=== PATIENT | male | born 1935 | race African-American/Black ===

== ENCOUNTER 2017-04-18 10:48 | Emergency (ER) | payer MEDICARE, OTHER, SELFPAY ==
[2017-04-18 10:58] VITALS: BP 175/100; PULSE 100; RESP 14; TEMP 36.6; O2SAT 96; BMI 28.4
[2017-04-18 11:06] VITALS: BP 170/100; PULSE 75; RESP 14; TEMP 36.5; O2SAT 98; BMI 27.4
--- NOTE | 2017-04-18 12:02 | HMH.EDURI ---
ED Disposition Clinical Impression: Upper respiratory infection Disposition: Home, Self-Care Condition on Discharge: Good Instructions: DI for Acute Bronchitis Prescriptions: Amoxicillin [Amoxicillin 250mg Cap] 250 mg PO TID #21 cap Benzonatate [Benzonatate 200mg Cap] 200 mg PO TID PRN #20 cap PRN Reason: Cough - Critical Care Critical Care Time: No Attestation: On 04/18/17, the high probability of a clinically significant, sudden or life threatening deterioration of the following system(s) required my full and direct attention, intervention and personal management. The time I documented below is in addition to time spent performing reported procedures but includes the following listed in this critical care notation. Medical Decision Making Vital Signs: 04/18/17 10:58 04/18/17 11:06 Temperature 97.9 F 97.7 F Temperature Source Oral Oral Pulse Rate [Left Brachial] 100 H 75 Respiratory Rate 14 14 Blood Pressure [Left Arm] 175/100 170/100 Blood Pressure Mean [Left Arm] 125 123 Blood Pressure Source [Left Arm] Automatic Cuff Automatic Cuff Blood Pressure Position [Left Arm] Sitting Sitting 02 Sat by Pulse Oximetry 96 98 Oxygen Delivery Method Room Air Room Air - Reyes Inquiry Pt receiving controlled substance: No Reyes was queried for this patient: No URI/Sore Throat HPI - General Chief Complaint: Upper Respiratory Infection Stated Complaint: congestion Mode of Arrival: Ambulatory Limitations: No Limitations Description of Symptoms (Recalled from ER Triage Doc. by RN): COUGH AND CONGESTION - History of Present Illness MD Complaint: nasal congestion Duration: constant Severity: moderate Severity scale (1-10): 3 Relieving factors: nothing Exacerbating factors: nothing Description of mucous: clear Able to tolerate fluids by mouth: Yes Associated symptoms: cough Treatments prior to arrival: none - Related Data Previous Rx's Medication Instructions Recorded Amoxicillin [Amoxicillin 250mg 250 mg PO TID #21 cap 04/18/17 Cap] Benzonatate [Benzonatate 200mg Cap] 200 mg PO TID PRN #20 cap 04/18/17 Allergies Allergy/AdvReac Type Severity Reaction Status Date / Time No Known Allergies Allergy Unverified 04/05/17 14:29 [facility] History Medical History: Denies:: Cancer, Diabetes Mellitus Type 1, Diabetes Mellitus Type 2, MRSA Amputation: No Fractures: No - *Social History Alcohol Intake: never - Psychiatric History Expresses thoughts of harming self/others: None Suicide Plan Description: No Plan ROS Obtained: Yes All systems reviewed & no additional complaints except - ENT Reports nasal discharge - Respiratory Reports chest congestion, Reports cough Physical Exam - General General appearance: alert, in no apparent distress - Head Head exam: atraumatic, normocephalic, normal inspection - Eye Eye exam: Present: normal appearance, PERRL, EOMI - ENT ENT exam: Present: normal exam, normal oropharynx, mucous membranes moist, TM's normal bilaterally, normal external ear exam - Neck Neck exam: Present: normal inspection, full ROM, trachea midline - Chest Chest inspection: Present: normal inspection, symmetric chest wall rise. Absent: tenderness - Respiratory Respiratory exam: Present: normal lung sounds bilaterally. Absent: respiratory distress - Cardiovascular Cardiovascular exam: Present: regular rate, normal rhythm. Absent: JVD - Abdominal Exam Abdominal exam: Present: soft, normal bowel sounds. Absent: distention, tenderness, guarding - Extremities Exam Extremities exam: Present: normal inspection, full ROM, normal capillary refill. Absent: calf tenderness - Back Exam Back exam: Present: normal inspection. Absent: tenderness - Neurological Exam Neurological exam: Present: alert, oriented X3 - Psychiatric Psychiatric exam: Present: normal affect, normal mood - Skin Skin exam: Present: warm, dry, intact, normal color
--- NOTE | 2017-04-18 12:08 | ED_ITS ---
ED Disposition Clinical Impression: Upper respiratory infection Disposition: Home, Self-Care Condition on Discharge: Good Instructions: DI for Acute Bronchitis Prescriptions: Amoxicillin [Amoxicillin 250mg Cap] 250 mg PO TID #21 cap Benzonatate [Benzonatate 200mg Cap] 200 mg PO TID PRN #20 cap PRN Reason: Cough - Critical Care Critical Care Time: No Attestation: On 04/18/17, the high probability of a clinically significant, sudden or life threatening deterioration of the following system(s) required my full and direct attention, intervention and personal management. The time I documented below is in addition to time spent performing reported procedures but includes the following listed in this critical care notation. Medical Decision Making Vital Signs: 04/18/17 10:58 04/18/17 11:06 Temperature 97.9 F 97.7 F Temperature Source Oral Oral Pulse Rate [Left Brachial] 100 H 75 Respiratory Rate 14 14 Blood Pressure [Left Arm] 175/100 170/100 Blood Pressure Mean [Left Arm] 125 123 Blood Pressure Source [Left Arm] Automatic Cuff Automatic Cuff Blood Pressure Position [Left Arm] Sitting Sitting 02 Sat by Pulse Oximetry 96 98 Oxygen Delivery Method Room Air Room Air - Reyes Inquiry Pt receiving controlled substance: No Reyes was queried for this patient: No URI/Sore Throat HPI - General Chief Complaint: Upper Respiratory Infection Stated Complaint: congestion Mode of Arrival: Ambulatory Limitations: No Limitations Description of Symptoms (Recalled from ER Triage Doc. by RN): COUGH AND CONGESTION - History of Present Illness MD Complaint: nasal congestion Duration: constant Severity: moderate Severity scale (1-10): 3 Relieving factors: nothing Exacerbating factors: nothing Description of mucous: clear Able to tolerate fluids by mouth: Yes Associated symptoms: cough Treatments prior to arrival: none - Related Data Previous Rx's Medication Instructions Recorded Amoxicillin [Amoxicillin 250mg 250 mg PO TID #21 cap 04/18/17 Cap] Benzonatate [Benzonatate 200mg Cap] 200 mg PO TID PRN #20 cap 04/18/17 Allergies Allergy/AdvReac Type Severity Reaction Status Date / Time No Known Allergies Allergy Unverified 04/05/17 14:29 [facility] History Medical History: Denies:: Cancer, Diabetes Mellitus Type 1, Diabetes Mellitus Type 2, MRSA Amputation: No Fractures: No - *Social History Alcohol Intake: never - Psychiatric History Expresses thoughts of harming self/others: None Suicide Plan Description: No Plan ROS Obtained: Yes All systems reviewed & no additional complaints except - ENT Reports nasal discharge - Respiratory Reports chest congestion, Reports cough Physical Exam - General General appearance: alert, in no apparent distress - Head Head exam: atraumatic, normocephalic, normal inspection - Eye Eye exam: Present: normal appearance, PERRL, EOMI - ENT ENT exam: Present: normal exam, normal oropharynx, mucous membranes moist, TM's normal bilaterally, normal external ear exam - Neck Neck exam: Present: normal inspection, full ROM, trachea midline - Chest Chest inspection: Present: normal inspection, symmetric chest wall rise. Absent : tenderness - Respiratory Respiratory exam: Present: normal lung
[2017-04-18 12:23] VITALS: BP 170/95; PULSE 74; RESP 14; TEMP 36.7; O2SAT 98
== END 2017-04-18 12:27 | disposition home or self-care (01) ==
PROVIDERS: Emergency Provider Family Medicine; Family Provider Internal Medicine
DX: J20.9 Acute bronchitis, unspecified (principal)
CPT/HCPCS: 99282; 99283

== ENCOUNTER 2017-05-13 06:50 | Emergency (ER) | payer MEDICARE, OTHER, SELFPAY ==
[2017-05-13 07:02] VITALS: BP 173/109; PULSE 91; RESP 18; TEMP 36.7; O2SAT 97; BMI 30.9
--- NOTE | 2017-05-13 07:26 | HMH.EDGENADL ---
ED Disposition Condition on Discharge: Good - Critical Care Critical Care Time: No <GagandeepHaseeb Delgado - Last Filed: 05/13/17 07:53> Condition on Discharge: Good - Critical Care Critical Care Time: No <Raul Norwood - Last Filed: 05/13/17 09:05> Clinical Impression: Constipation Qualifiers: Constipation type: unspecified constipation type Qualified Code(s): K59.00 - Constipation, unspecified UTI (urinary tract infection) Qualifiers: Urinary tract infection type: acute cystitis Hematuria presence: without hematuria Qualified Code(s): N30.00 - Acute cystitis without hematuria Disposition: Home, Self-Care Instructions: DI for Constipation, Urinary Tract Infection Additional Instructions: see pcp for follow up Attestation: On 05/13/17, the high probability of a clinically significant, sudden or life threatening deterioration of the following system(s) required my full and direct attention, intervention and personal management. The time I documented below is in addition to time spent performing reported procedures but includes the following listed in this critical care notation. Medical Decision Making - Medical Records Medical records reviewed: Yes: I reviewed the patient's medical records. - Lab Data Lab results reviewed: Yes: I reviewed the patient's lab results. - Reyes Inquiry Pt receiving controlled substance: No <GagandeepHaseeb Delgado - Last Filed: 05/13/17 07:53> - Lab Data Result diagrams: 05/13/17 07:50 05/13/17 07:50 <EnmaRaul - Last Filed: 05/13/17 09:05> Vital Signs: 05/13/17 07:02 Temperature 98.0 F Temperature Source Oral Pulse Rate [Right Radial] 91 H Respiratory Rate 18 Blood Pressure [Left Arm] 173/109 Blood Pressure Mean [Left Arm] 130 Blood Pressure Source [Left Arm] Automatic Cuff Blood Pressure Position [Left Arm] Left Lateral 02 Sat by Pulse Oximetry 97 Oxygen Delivery Method Room Air - Lab Data Lab Results 05/13/17 07:40: Urine Color Yellow, Urine Appearance Clear, Urine pH 7.5, Ur Specific [place] 1.010, Urine Protein Negative, Urine Glucose (UA) Negative, Urine Ketones Negative, Urine Blood Negative, Urine Nitrate Negative, Urine Bilirubin Negative, Urine Urobilinogen 0.2, Ur Leukocyte Esterase 1+ A, Urine RBC None, Urine WBC 10-20, Ur Squamous Epith Cells 5-10, Urine Bacteria 2+, Urine Mucus 2+ 05/13/17 07:45: Stool Occult Blood Negative 05/13/17 07:50: WBC 6.8, RBC 4.96, Hgb 13.5 L, Hct 40.4 L, MCV 81.5, MCH 27.2, MCHC 33.4, RDW 14.1, Plt Count 202, MPV 7.2 L, Neut % (Auto) 67.8, Lymph % (Auto) 24.2, [place] % (Auto) 5.6, Eos % (Auto) 2.0, Baso % (Auto) 0.3, Neut # (Auto) 4.6, Lymph # (Auto) 1.6, [place] # (Auto) 0.4, Eos # (Auto) 0.1, Baso # (Auto) 0.0 05/13/17 07:50: Sodium 139, Potassium 3.8, Chloride 103, Carbon Dioxide 28, Anion Gap 11.8, BUN 11, Creatinine 1.39 H, Estimated Creat Clear 47, Estimated GFR 49 L, Est GFR ( Amer) 59, Glucose 112 H, Calcium 8.8, Total Bilirubin 0.4, AST 17, ALT 23, Alkaline Phosphatase 93, Total Protein 7.5, Albumin 3.8, Globulin 3.7 H, Albumin/Globulin Ratio 1.0 L, TSH 1.51, Thyroxine (T4) 4.8 Orders (Tests/Meds): ED MEDICATIONS Discontinued Medications Generic Name Dose Route Start Last Admin Trade Name Freq PRN Reason Stop Dose Admin Bisacodyl 10 mg 05/13/17 07:51 05/13/17 07:57 Dulcolax 10mg Supp RC 05/13/17 07:52 10 mg ONCE ONE Administration ORDERS Category Date Time Status Acute abdomen XR series [XR acute abdomen series] Stat Exams 05/13/17 07:29 Ordered Urine Culture Stat Micro 05/13/17 07:40 Received General Adult HPI - General Mode of Arrival: Ambulatory Source of Information: Patient, Medical Record Limitations: No Limitations Description of Symptoms (Recalled from ER Triage Doc. by RN): pt is constipated x 2 days, tried a suppository with no relief - History of Present Illness Onset (ago): day(s) Severity: moderate <Haseeb Donis - Last Filed: 05/13/17 07:53>
--- NOTE | 2017-05-13 07:29 | ED_ITS ---
ED Disposition Condition on Discharge: Good - Critical Care Critical Care Time: No <GagandeepHaseeb Delgado - Last Filed: 05/13/17 07:53> Condition on Discharge: Good - Critical Care Critical Care Time: No <Raul Norwood - Last Filed: 05/13/17 09:05> Clinical Impression: Constipation Qualifiers: Constipation type: unspecified constipation type Qualified Code(s): K59.00 - Constipation, unspecified UTI (urinary tract infection) Qualifiers: Urinary tract infection type: acute cystitis Hematuria presence: without hematuria Qualified Code(s): N30.00 - Acute cystitis without hematuria Disposition: Home, Self-Care Instructions: DI for Constipation, Urinary Tract Infection Additional Instructions: see pcp for follow up Attestation: On 05/13/17, the high probability of a clinically significant, sudden or life threatening deterioration of the following system(s) required my full and direct attention, intervention and personal management. The time I documented below is in addition to time spent performing reported procedures but includes the following listed in this critical care notation. Medical Decision Making - Medical Records Medical records reviewed: Yes: I reviewed the patient's medical records. - Lab Data Lab results reviewed: Yes: I reviewed the patient's lab results. - Reyes Inquiry Pt receiving controlled substance: No <GagandeepHaseeb Delgado - Last Filed: 05/13/17 07:53> - Lab Data Result diagrams: 05/13/17 07:50 05/13/17 07:50 <EnmaRaul - Last Filed: 05/13/17 09:05> Vital Signs: 05/13/17 07:02 Temperature 98.0 F Temperature Source Oral Pulse Rate [Right Radial] 91 H Respiratory Rate 18 Blood Pressure [Left Arm] 173/109 Blood Pressure Mean [Left Arm] 130 Blood Pressure Source [Left Arm] Automatic Cuff Blood Pressure Position [Left Arm] Left Lateral 02 Sat by Pulse Oximetry 97 Oxygen Delivery Method Room Air - Lab Data Lab Results 05/13/17 07:40: Urine Color Yellow, Urine Appearance Clear, Urine pH 7.5, Ur Specific [place] 1.010, Urine Protein Negative, Urine Glucose (UA) Negative, Urine Ketones Negative, Urine Blood Negative, Urine Nitrate Negative, Urine Bilirubin Negative, Urine Urobilinogen 0.2, Ur Leukocyte Esterase 1+ A, Urine RBC None, Urine WBC 10-20, Ur Squamous Epith Cells 5-10, Urine Bacteria 2+, Urine Mucus 2+ 05/13/17 07:45: Stool Occult Blood Negative 05/13/17 07:50: WBC 6.8, RBC 4.96, Hgb 13.5 L, Hct 40.4 L, MCV 81.5, MCH 27.2, MCHC 33.4, RDW 14.1, Plt Count 202, MPV 7.2 L, Neut % (Auto) 67.8, Lymph % (Auto ) 24.2, [place] % (Auto) 5.6, Eos % (Auto) 2.0, Baso % (Auto) 0.3, Neut # (Auto) 4.6, Lymph # (Auto) 1.6, [place] # (Auto) 0.4, Eos # (Auto) 0.1, Baso # (Auto) 0.0 05/13/17 07:50: Sodium 139, Potassium 3.8, Chloride 103, Carbon Dioxide 28, Anion Gap 11.8, BUN 11, Creatinine 1.39 H, Estimated Creat Clear 47, Estimated GFR 49 L, Est GFR ( Amer) 59, Glucose 112 H, Calcium 8.8, Total Bilirubin 0.4, AST 17, ALT 23, Alkaline Phosphatase 93, Total Protein 7.5, Albumin 3.8, Globulin 3.7 H, Albumin/Globulin Ratio 1.0 L, TSH 1.51, Thyroxine ( T4) 4.8 Orders (Tests/Meds): ED MEDICATIONS Discontinued Medications Generic Name Dose Route Start Last Admin Trade Name Freq PRN Reason Stop Dose Admin Bisacodyl 10 mg 05/13/17 07:51 05/13/17 07:57 Dulcolax 10mg Supp RC 05/13/17 07:52 10 mg ONCE ONE Admi
--- NOTE | 2017-05-13 07:29 | XR_ITS ---
XR acute abdomen series HISTORY: ITS.REASON: constipation ORDERING PHYSICIAN: Raul Norwood MD PATIENT AGE: 81 years COMPARISON: 04/14/2015 FINDINGS: Frontal view of the chest shows no acute finding. Nonspecific bowel gas pattern with a mild amount retained colonic feces. No evidence of rectal fecal impaction. Scattered phleboliths are present in the pelvis and there is diffuse osteophytosis of the thoracic and lumbar spine. IMPRESSION: 1. Mild constipation. 2. Thoracic lumbar spondylosis with osteophytosis.
[2017-05-13 07:52] LABS: Appearance,Urine CLEAR (Clear); Bilirubin,Urine Negative (Negative); Blood, Urine Negative (Negative); Color,Urine YELLOW (Yellow); Glucose,Urine (UA) Negative (Negative); Ketones,Urine Negative (Negative); Leukocyte Esterase,Urine 1+ (Negative); Microscopic, Urine URINE MICROSCOPIC (MICROSCOPIC); Nitrate,Urine Negative (Negative); PH,Urine 7.5 (5.0-8.5); Protein,Urine Negative (Negative); Urobilinogen,Urine 0.2 EU/dl (0.2)
[2017-05-13 08:01] LABS: Basophils % 0.3 % (0.1-2.0); Eosinophils # 0.1 K/mm3 (0.0-0.4); Hematocrit 40.4 % (42.0-52.0); Hemoglobin 13.5 g/dL (14.1-18.0); Lymphocytes # 1.6 K/mm3 (0.7-4.5); Lymphocytes % 24.2 K/mm3 (10-50); Mean Corpuscular HGB Conc 33.4 g/dL (31.8-35.4); Mean Corpuscular Hemoglobin 27.2 pg (27.0-31.2); Mean Corpuscular Volume 81.5 fl (80-94); Mean Platelet Volume 7.2 fl (7.4-10.4); Monocytes # 0.4 K/mm3 (0.1-1.0); Monocytes % 5.6 % (1.7-9.3); Neutrophils # 4.6 K/mm3 (1.8-7.8); Neutrophils % 67.8 % (37.0-80.0); Platelet Count 202 K/mm3 (142-424); Red Blood Count 4.96 M/mm3 (4.60-6.20); Red Cell Distribution Width 14.1 % (11.5-17.5); White Blood Count 6.8 K/mm3 (4.8-10.8)
[2017-05-13 08:04] LABS: Occult Blood,Stool Negative (Negative)
[2017-05-13 08:23] LABS: Bacteria,Urine 2+ /lpf; Mucus,Urine 2+ /lpf
--- NOTE | 2017-05-13 08:25 | PC.NURSE ---
Pt had BM x 1 following supository at this time
[2017-05-13 08:33] LABS: Alanine Aminotransferase 23 U/L (12-78); Albumin Level 3.8 gm/dL (3.4-5.0); Alkaline Phosphatase 93 U/L (46-116); Anion Gap 11.8 mEq/L (5-15); Aspartate Amino Transferase 17 U/L (15-37); Bilirubin,Total 0.4 mg/dL (0.2-1.0); Blood Urea Nitrogen 11 mg/dL (7-18); Calcium 8.8 mg/dL (8.5-10.1); Carbon Dioxide 28 mmol/L (21.0-32.0); Chloride 103 mmol/L (98-107); Creatinine Clearance Estimated 47 mL/min (0-300); Creatinine,Serum 1.39 mg/dL (0.70-1.30); Estimated Glomerular Filt Rate 49 ml/min (>60); GFR (African American) 59 ML/MIN (>60); Globulin 3.7 gm/dl (1.3-3.2); Glucose 112 mg/dL (74-106); Potassium 3.8 mmoL/L (3.5-5.1); Sodium 139 mmol/L (136-145); T4 (Thyroxine) 4.8 ug/dl (4.7-13.3); Thyroid Stimulating Hormone 1.51 uIU/ml (0.358-3.740); Total Protein,Serum 7.5 gm/dL (6.4-8.2)
[2017-05-13 09:37] VITALS: BP 128/70; PULSE 75; RESP 14; TEMP 37; O2SAT 98
== END 2017-05-13 09:38 | disposition home or self-care (01) ==
PROVIDERS: Emergency Medicine; Emergency Provider Emergency Medicine; Family Provider Internal Medicine; PCP Internal Medicine Adolescent Medicine
DX: K59.00 Constipation, unspecified (principal); N39.0 Urinary tract infection, site not specified; Z87.891 Personal history of nicotine dependence
CPT/HCPCS: 74021; 80053; 81001; 82272; 84436; 84443; 85025; 87086; 99282; G0328

== ENCOUNTER 2019-08-03 12:24 | Emergency (ER) | payer MEDICARE, OTHER, SELFPAY ==
[2019-08-03 12:37] VITALS: BP 120/68; PULSE 62; RESP 16; TEMP 36.8; O2SAT 96; BMI 27.4
--- NOTE | 2019-08-03 12:43 | CT_ITS ---
PROCEDURE: CT ABDOMEN PELVIS WO CON CLINICAL INDICATION: LT FLANK PAIN COMPARISON: No exams were available for comparison TECHNIQUE: Axial images obtained with sagittal and coronal reformats. All CT scans at the facility use one or more dose reduction, viz: automated exposure control, ma/kV adjustment per patient size (including targeted exams where dose is matched to indication, i.e. head), or iterative reconstruction technique. FINDINGS: LOWER THORAX: Minimal atelectatic or fibrotic changes are present in the lingula. The most superior aspect of the hepatic dome is not included. ABDOMEN & PELVIS: The visualized portion of the liver has an unremarkable appearance. The gallbladder, spleen, right adrenal gland, and pancreas have unremarkable appearance. There is nodularity of the lateral limb of the left adrenal gland nonspecific measuring 1.5 cm possibly due to an adenoma the the. There are multiple bilateral renal cyst measuring up to 6 cm on the right and 7 cm on the left. There is minimal calcification in the mid aspect of the left kidney posteriorly. No hydronephrosis. No ureteral calculi. Prostate is slightly prominent with coarse calcification. The prostate measures 4.4 cm. There is some thickening along the base of the urinary bladder which could be inflammatory or neoplastic. Cystoscopy may provide further evaluation. No intestinal obstruction or free air. No evidence of appendicitis. There is colonic diverticulosis but no evidence of diverticulitis. There are few small bilateral inguinal lymph nodes There are degenerative changes in the lumbar spine with multilevel bridging osteophytes. IMPRESSION: 1. Bilateral renal cysts. No obstructing renal or ureteral calculi. A small calcification is present in the mid aspect of the left kidney posteriorly and may be related to a small cyst 2. Thickening of the base of the urinary bladder centrally which appears separate from the mildly enlarged prostate and could be inflammatory or neoplastic. Cystoscopy may provide further evaluation. Dictated by: Alex Cabrales MD 08/03/2019 13:55 Electronically signed by Alex Cabrales MD in [place] 08/03/2019 13:55
[2019-08-03 12:51] LABS: Microscopic, Urine URINE MICROSCOPIC (MICROSCOPIC)
[2019-08-03 12:53] LABS: Appearance,Urine CLEAR (Clear); Bilirubin,Urine Negative (Negative); Blood, Urine Negative (Negative); Color,Urine YELLOW (Yellow); Glucose,Urine (UA) Negative (Negative); Ketones,Urine Negative (Negative); Leukocyte Esterase,Urine 1+ (Negative); Nitrate,Urine Negative (Negative); Protein,Urine Negative (Negative); Specific Gravity, Urine 1.015 (1.005-1.030); Urobilinogen,Urine 0.2 EU/dl (0.2)
--- NOTE | 2019-08-03 12:53 | PC.NURSE ---
PT TO RAD. MEDIC TO START IV AND DRAW BLOOD UPON PT'S RETURN TO ED.
[2019-08-03 13:18] LABS: Bacteria,Urine 1+ /lpf; RBC,Urine Occasional #/hpf (0-3); Squamous Epithelial Cell,Urine Occasional #/hpf (0-5)
[2019-08-03 13:25] LABS: Basophils # 0.1 K/mm3 (0-0.2); Basophils % 1.3 % (0.1-2.0); Eosinophils # 0.1 K/mm3 (0.0-0.4); Hematocrit 43.8 % (42.0-52.0); Hemoglobin 14.5 g/dL (14.1-18.0); Lymphocytes # 2.2 K/mm3 (0.7-4.5); Lymphocytes % 46.9 % (10-50); Mean Corpuscular Hemoglobin 28.4 pg (27.0-31.2); Mean Corpuscular Volume 86.1 fl (80-94); Mean Platelet Volume 7.8 fl (7.4-10.4); Monocytes # 0.3 K/mm3 (0.1-1.0); Monocytes % 6.3 % (1.7-9.3); Neutrophils # 2.1 K/mm3 (1.8-7.8); Neutrophils % 43.6 % (37.0-80.0); Platelet Count 211 K/mm3 (142-424); Red Blood Count 5.09 M/mm3 (4.60-6.20); Red Cell Distribution Width 14.4 % (11.5-17.5); White Blood Count 4.7 K/mm3 (4.8-10.8)
[2019-08-03 13:36] LABS: Chloride 102 mmol/L (98-107); Potassium 4.2 mmoL/L (3.5-5.1); Sodium 140 mmol/L (136-145)
[2019-08-03 13:38] LABS: Alanine Aminotransferase 20 U/L (12-78); Aspartate Amino Transferase 23 U/L (17-59); Blood Urea Nitrogen 12 mg/dl (9-20); Creatinine Clearance Estimated 49 mL/min (50-200); Estimated Glomerular Filt Rate 58 ml/min (>60); GFR (African American) 70 ML/MIN (>60)
[2019-08-03 13:39] LABS: Albumin Level 4.3 g/dl (3.5-5.0); Albumin/Globulin Ratio 1.4 (1.1-1.8); Alkaline Phosphatase 63 U/L (38-126); Anion Gap 11.2 mEq/L (5-15); Bilirubin,Total 0.2 mg/dl (0.2-1.3); Calcium 9.3 mg/dl (8.4-10.2); Carbon Dioxide 31 mmol/L (22.0-30.0); Globulin 3.1 g/dL (1.3-3.2); Glucose 117 mg/dl (74-100); Total Protein,Serum 7.4 g/dl (6.3-8.2)
--- NOTE | 2019-08-03 14:35 | HMH.EDUROGM ---
ED Disposition Clinical Impression: Urethritis, Cystitis, Bladder neoplasm of uncertain malignant potential Disposition: Home, Self-Care Condition on Discharge: Good Instructions: DI for Urinary Tract Infection (UTI), DI for Urinary Tract Infection in Children Additional Instructions: Please follow-up with primary care for further evaluation and a urology consult Prescriptions: Sulfamethoxazole/Trimethoprim [Bactrim DS tablet] 1 each PO BID 10 Days #20 tab Transmission Status: Pending to [facility] Referrals: Provider,Referral, [Primary Care Provider] - - Critical Care Critical Care Time: No Attestation: On 08/03/19, the high probability of a clinically significant, sudden or life threatening deterioration of the following system(s) required my full and direct attention, intervention and personal management. The time I documented below is in addition to time spent performing reported procedures but includes the following listed in this critical care notation. Medical Decision Making - Medical Records Medical records reviewed: Yes: I reviewed the patient's medical records. - Reyes Inquiry Pt receiving controlled substance: No Vital Signs: 08/03/19 12:37 Temperature 98.2 F Temperature Source Oral Pulse Rate [Right Radial] 62 Respiratory Rate 16 Blood Pressure [Right Arm] 120/68 Blood Pressure Mean [Right Arm] 85 Blood Pressure Source [Right Arm] Automatic Cuff Blood Pressure Position [Right Arm] Sitting 02 Sat by Pulse Oximetry 96 Oxygen Delivery Method Room Air - Lab Data Lab results reviewed: Yes: I reviewed the patient's lab results. Lab Results 08/03/19 12:40: Urine Color Yellow, Urine Appearance Clear, Urine pH 7.0, Ur Specific [place] 1.015, Urine Protein Negative, Urine Glucose (UA) Negative, Urine Ketones Negative, Urine Blood Negative, Urine Nitrate Negative, Urine Bilirubin Negative, Urine Urobilinogen 0.2, Ur Leukocyte Esterase 1+ A, Urine RBC Occasional, Urine WBC 3-5, Ur Squamous Epith Cells Occasional, Urine Bacteria 1+ 08/03/19 13:10: WBC 4.7 L, RBC 5.09, Hgb 14.5, Hct 43.8, MCV 86.1, MCH 28.4, MCHC 33.0, RDW 14.4, Plt Count 211, MPV 7.8, Neut % (Auto) 43.6, Lymph % (Auto) 46.9, [place] % (Auto) 6.3, Eos % (Auto) 2.0, Baso % (Auto) 1.3, Neut # (Auto) 2.1, Lymph # (Auto) 2.2, [place] # (Auto) 0.3, Eos # (Auto) 0.1, Baso # (Auto) 0.1 08/03/19 13:10: Sodium 140, Potassium 4.2, Chloride 102, Carbon Dioxide 31 H, Anion Gap 11.2, BUN 12, Creatinine 1.20, Estimated Creat Clear 49, Estimated GFR 58 L, Est GFR ( Amer) 70, Glucose 117 H, Calcium 9.3, Total Bilirubin 0.2, AST 23, ALT 20, Alkaline Phosphatase 63, Total Protein 7.4, Albumin 4.3, Globulin 3.1, Albumin/Globulin Ratio 1.4 Result diagrams: 08/03/19 13:10 08/03/19 13:10 Orders (Tests/Meds): ORDERS Category Date Time Status Urine Culture Stat Micro 08/03/19 12:40 Received - CT Data CT Scan: Abdomen, Pelvis Time Received: 14:00 Preliminary Findings: Abnormal (Patient does have a thickened bladder cyst possible for a neoplasm.) Male Urogenital HPI - General Chief complaint: Urogenital-Male Stated complaint: back pain Time Seen by Provider: 08/03/19 13:00 Mode of Arrival: Ambulatory Limitations: No Limitations Description of Symptoms (Recalled from ER Triage Doc. by RN): PT C/O LT FLANK PAIN - History of Present Illness HPI Narrative: 83-year-old gentleman presents the ED complaining of some right flank pain radiating down to his groin and is also some dysuria. Patient states the symptoms started about 24 hours ago. He rates the pain 2 out of 10 he says it is very mild and he does not feel like he needs to take anything for it really cannot describe any exacerbating or alleviating factors. He does state the pain is sharp. Patient states that the dysuria did start about 24 hours ago and he also has some difficulty emptying bladder and does wake up several times during the night to use the bathroom. Wanda
[2019-08-03 14:50] VITALS: BP 134/87; PULSE 72; RESP 18; TEMP 37.1; O2SAT 97
== END 2019-08-03 14:51 | disposition home or self-care (01) ==
PROVIDERS: Emergency Provider Family Medicine
DX: N34.2 Other urethritis (principal); D41.4 Neoplasm of uncertain behavior of bladder; I10 Essential (primary) hypertension; R73.9 Hyperglycemia, unspecified; Z79.899 Other long term (current) drug therapy
CPT/HCPCS: 74176; 80053; 81001; 85025; 87086; 99283

== ENCOUNTER 2019-08-23 10:27 | Emergency (ER) | payer MEDICARE, OTHER, SELFPAY ==
[2019-08-23 10:28] VITALS: BP 126/81; PULSE 83; RESP 20; TEMP 36.4; O2SAT 98; BMI 25.8
--- NOTE | 2019-08-23 10:39 | HMH.EDGENADL ---
ED Disposition Clinical Impression: Facial pain Sinusitis Qualifiers: Sinusitis location: maxillary Chronicity: unspecified Qualified Code(s): J32.0 - Chronic maxillary sinusitis Disposition: Home, Self-Care Condition on Discharge: Good Instructions: DI for Sinusitis Additional Instructions: Amoxicillin as prescribed for possible sinus infection. Follow-up with your primary care provider, call for appointment. Prescriptions: Amoxicillin [Amoxicillin 500mg Cap] 500 mg PO TID #30 cap Transmission Status: Pending to [facility] Referrals: Provider,Referral, [Primary Care Provider] - - Critical Care Critical Care Time: No Attestation: On 08/23/19, the high probability of a clinically significant, sudden or life threatening deterioration of the following system(s) required my full and direct attention, intervention and personal management. The time I documented below is in addition to time spent performing reported procedures but includes the following listed in this critical care notation. Medical Decision Making - Reyes Inquiry Pt receiving controlled substance: No Vital Signs: 08/23/19 10:28 Temperature 97.6 F Temperature Source Oral Pulse Rate [Right] 83 Respiratory Rate 20 Blood Pressure [Right Arm] 126/81 Blood Pressure Mean [Right Arm] 96 02 Sat by Pulse Oximetry 98 Medical Decision Narrative: Symptoms sound most consistent with a sinus infection. Tic douloureux is also considered a possibility and patient is advised to follow-up with his primary care provider. He says he is a patient at the [facility], but is unable to get there. prior CT: PROCEDURE: CT LUMBAR SPINE WO CON CLINICAL HISTORY: lower back pain COMPARISON: No exams were available for comparison TECHNIQUE: Axial images obtained with sagittal and coronal reformats. All CT scans at the facility use one or more dose reduction, viz: automated exposure control, ma/kV adjustment per patient size (including targeted exams where dose is matched to indication, i.e. head), or iterative reconstruction technique. FINDINGS: There are 2 millimeters anterior subluxation of L4 on L5. There is no other malalignment. Anterior and lateral osteophytes are bridging multiple disc space levels. Multilevel degenerative disc disease is noted from T11-12 to L5-S1. No acute fracture dislocation or destructive lesion is apparent. At L1-2 asymmetrical disc bulge toward the left neural foramen is noted with mild foraminal stenosis but without nerve root impingement. At L2-3 there is broad-based disc bulge with bilateral ligamentum flavum and facet hypertrophy and marginal osteophyte with moderate central spinal canal stenosis and bilateral foraminal stenosis. At L3-4 there is broad-based disc bulge with mild central spinal canal stenosis and bilateral foraminal stenosis greater on the left where there is marginal osteophyte. At L4-5 there is broad-based disc bulge with bilateral hypertrophic facet disease with high-grade central spinal canal stenosis and bilateral foraminal stenosis with asymmetrical left lateral marginal osteophyte protruding into the neural foramen. Impingement of the bilateral L4 nerve root sleeves is not excluded. At L5-S1 there is marginal osteophyte and hypertrophic facet disease with bilateral foraminal stenosis right greater than left. No central canal stenosis is apparent. No herniated disc is apparent. Mild bilateral sacroiliitis is noted. Note is made of multiple bilateral renal cysts. Additionally an approximately 6 millimeter hyperdense nodule projects off the posterior cortex of the left kidney best seen on image 38 series 3 likely a hemorrhagic cyst. 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 No acute fracture. Anterior subluxation of L4 on L5 Multiple bila
[2019-08-23 11:20] VITALS: BP 123/85; PULSE 65; RESP 20; TEMP 36.8; O2SAT 98
== END 2019-08-23 11:21 | disposition home or self-care (01) ==
PROVIDERS: Emergency Provider Emergency Medicine
DX: J32.9 Chronic sinusitis, unspecified (principal); M54.5 Low back pain; I10 Essential (primary) hypertension
CPT/HCPCS: 99281

== ENCOUNTER 2019-09-21 07:49 | Emergency (ER) | payer MEDICARE, OTHER, SELFPAY ==
[2019-09-21 07:52] VITALS: BP 170/90; PULSE 82; RESP 18; TEMP 36.7; O2SAT 98; BMI 28.3
--- NOTE | 2019-09-21 08:23 | HMH.EDSKAF ---
ED Disposition Clinical Impression: Papule of skin Disposition: Home, Self-Care Condition on Discharge: Good Instructions: DI for Insect Bites and Stings Additional Instructions: You have been evaluated for a papule on your cheek. Please use topical antibiotic. If you develop additional lesions, especially near your eye, please return to the emergency department. Follow-up with your primary care doctor in 1 to 2 days for wound check. Referrals: Provider,Referral, [Primary Care Provider] - Time of Disposition: 08:32 - Critical Care Critical Care Time: No Attestation: On , the high probability of a clinically significant, sudden or life threatening deterioration of the following system(s) required my full and direct attention, intervention and personal management. The time I documented below is in addition to time spent performing reported procedures but includes the following listed in this critical care notation. Medical Decision Making - Reyes Inquiry Pt receiving controlled substance: No Vital Signs: 09/21/19 07:52 09/21/19 08:37 Temperature 98.1 F 98.3 F Temperature Source Oral Pulse Rate 80 Pulse Rate [Right] 82 Respiratory Rate 18 20 Blood Pressure 152/87 H Blood Pressure [Right Arm] 170/90 H Blood Pressure Mean [Right Arm] 116 02 Sat by Pulse Oximetry 98 Orders (Tests/Meds): ED MEDICATIONS Generic Name Dose Route Start Last Admin Trade Name Freq PRN Reason Stop Dose Admin Neomycin/Polymyxin/Bacitracin 1 each 09/21/19 10:11 09/21/19 08:40 Neosporin Ointment 0.9gm Udp TP 10/21/19 10:10 1 each NEEDED PRN Administration Inflammation Medical Decision Narrative: In summary this is an 84-year-old male presenting to the emergency department with a lesion on his left cheek. Patient is overall appearing on arrival to the emergency department. Vital signs are stable, afebrile. He has a small, less than 1 cm erythematous spot on his cheek. No other lesions. No intraoral lesions. ENT exam unremarkable. Patient was counseled that this could be infectious or inflammatory. However it does not appear to be an abscess. Topical antibiotic applied over the area. He was recommended to use topical antibiotics nightly or after he showers. Counseled to pay attention for any additional rashes, especially near his eye. Follow-up with PCP.. Skin/Abscess/FB HPI - General Chief complaint: Skin/Abscess/Foreign Body Stated complaint: drainage from spot on face Time Seen by Provider: 09/21/19 08:14 Mode of Arrival: Ambulatory Limitations: No Limitations Description of Symptoms (Recalled from ER Triage Doc. by RN): States he has a spot on the left side of his face that is causing clear drainage, states it has been there for over a year. - History of Present Illness HPI narrative: 84-year-old male presenting to the emergency department with a lesion to the left side of his face. He noticed it 2 days ago. It was a small red bump that then drained clear liquid fluid last night. He believes he was bit by an insect. He has seasonal allergies and takes medication. Denies fevers, chills, nausea, vomiting. No intraoral lesions. No rashes on any other part of his face. Does not believe he has ever had shingles. Area is nonpainful. It itches occasionally. Has not used topical or other medication. - Related Data Home Medications Medication Instructions Recorded Confirmed No Known Home Medications 09/21/19 09/21/19 Allergies Allergy/AdvReac Type Severity Reaction Status Date / Time No Known Allergies Allergy Verified 07/10/19 13:14 [facility] History - Hepatitis A Screen Drug use history?: No High risk sexual behaviors?: No History of sexually transmitted infection?: No Currently employed?: No Childcare worker?: No Do you have indoor plumbing?: Yes Do you have electricity?: Yes Attestation statement:: This patient has been screened for Hepatitis A risk
[2019-09-21 08:37] VITALS: BP 152/87; PULSE 80; RESP 20; TEMP 36.8; O2SAT 98
== END 2019-09-21 08:39 | disposition home or self-care (01) ==
PROVIDERS: Emergency Provider Emergency Medicine
DX: L98.9 Disorder of the skin and subcutaneous tissue, unspecified (principal); I10 Essential (primary) hypertension
CPT/HCPCS: 99281

== ENCOUNTER 2019-10-04 16:51 | Emergency (ER) | payer MEDICARE, OTHER, SELFPAY ==
[2019-10-04 16:52] VITALS: BP 123/78; PULSE 80; RESP 18; TEMP 36.7; O2SAT 99; BMI 29.0
[2019-10-04 17:33] VITALS: BP 131/76; PULSE 62; O2SAT 94
--- NOTE | 2019-10-04 18:15 | HMH.EDGENADL ---
ED Disposition Clinical Impression: GERD (gastroesophageal reflux disease) Disposition: Home, Self-Care Condition on Discharge: Good Instructions: DI for Acute Pain -- Adult Prescriptions: Pantoprazole Sodium [Protonix 40mg tablet] 40 mg PO DAILY 30 Days #30 tab Transmission Status: Sent to [facility] Referrals: Provider,Referral, [Primary Care Provider] - - Critical Care Critical Care Time: No Attestation: On 10/04/19, the high probability of a clinically significant, sudden or life threatening deterioration of the following system(s) required my full and direct attention, intervention and personal management. The time I documented below is in addition to time spent performing reported procedures but includes the following listed in this critical care notation. Medical Decision Making - Medical Records Medical records reviewed: Yes: I reviewed the patient's medical records. - Reyes Inquiry Pt receiving controlled substance: No Vital Signs: 10/04/19 16:52 10/04/19 17:33 Temperature 98.1 F Temperature Source Oral Pulse Rate [Radial] 80 62 Respiratory Rate 18 Blood Pressure [Right Arm] 123/78 131/76 Blood Pressure Mean [Right Arm] 93 94 Blood Pressure Source [Right Arm] Automatic Cuff Automatic Cuff Blood Pressure Position [Right Arm] Sitting Sitting 02 Sat by Pulse Oximetry 99 94 L Oxygen Delivery Method Room Air Room Air - Lab Data Lab results reviewed: Yes: I reviewed the patient's lab results. Orders (Tests/Meds): ED MEDICATIONS Discontinued Medications Generic Name Dose Route Start Last Admin Trade Name Freq PRN Reason Stop Dose Admin Belladonna Alkaloids 60 ml 10/04/19 17:14 10/04/19 17:14 Gi Cocktail 60ml Udc PO 10/04/19 17:15 60 ml ONCE ONE Administration General Adult HPI - General Chief complaint: PAIN Stated complaint: Acid Reflex Time Seen by Provider: 10/04/19 18:15 Mode of Arrival: Ambulatory Source of Information: Patient Limitations: No Limitations Description of Symptoms (Recalled from ER Triage Doc. by RN): complaint of acid reflux - History of Present Illness HPI narrative: 84-year-old pleasant gentleman named Nathaniel presents the ED with epigastric pain that aquino up his esophagus especially lays down at night. He has been here a few times for this previously but has not filled his medication when he gets put on PPIs. Patient was given a GI cocktail prior to me seeing the patient and his symptoms are totally resolved. Patient denies any other acute symptoms. - Related Data Previous Rx's Medication Instructions Recorded Pantoprazole Sodium [Protonix 40mg 40 mg PO DAILY 30 Days #30 tab 10/04/19 tablet] Allergies Allergy/AdvReac Type Severity Reaction Status Date / Time No Known Allergies Allergy Verified 07/10/19 13:14 [facility] History - Hepatitis A Screen Drug use history?: No High risk sexual behaviors?: No History of sexually transmitted infection?: No Currently employed?: No Childcare worker?: No Do you have indoor plumbing?: Yes Do you have electricity?: Yes Attestation statement:: This patient has been screened for Hepatitis A risk factors. I have reviewed the patient's past medical history: Yes Medical History: Reports:: Hypertension Denies:: Cancer, Diabetes Mellitus Type 1, Diabetes Mellitus Type 2, MRSA Amputation: No Fractures: No - Social History Educational Level: Completed High School Smoking Status: Never smoker Alcohol Intake: never Alcohol Intake Frequency:: holidays/special occasions only Occupational Status: retired ROS Obtained: Yes All systems reviewed & no additional complaints - Constitutional Constitutional: Reports system reviewed and no additional complaints, except as docu - Eyes Eyes: Reports system reviewed and no additional complaints, except as docu - ENT Ears, Nose, Mouth, and Throat: Reports system reviewed and no additional complaints, except as d
[2019-10-04 18:32] VITALS: BP 131/76; PULSE 62; RESP 18; TEMP 36.7; O2SAT 99
== END 2019-10-04 18:33 | disposition home or self-care (01) ==
PROVIDERS: Emergency Provider Family Medicine
DX: K21.9 Gastro-esophageal reflux disease without esophagitis (principal); I10 Essential (primary) hypertension
CPT/HCPCS: 99282

== ENCOUNTER 2019-10-07 10:43 | Emergency (ER) | payer MEDICARE, OTHER, SELFPAY ==
[2019-10-07 10:44] VITALS: BP 145/91; PULSE 94; RESP 16; TEMP 36.6; O2SAT 98; BMI 26.6
--- NOTE | 2019-10-07 11:45 | HMH.EDBACK ---
ED Disposition Clinical Impression: Acute exacerbation of chronic low back pain Disposition: Home, Self-Care Condition on Discharge: Good Instructions: DI for Low Back Pain Prescriptions: Nabumetone 750 mg PO BID 10 Days #20 tab Transmission Status: Pending to [facility] Methocarbamol [Robaxin 500mg Tab*] 500 mg PO QID 10 Days #30 tab Transmission Status: Pending to [facility] Referrals: Provider,Referral, [Primary Care Provider] - - Critical Care Critical Care Time: No Attestation: On 10/07/19, the high probability of a clinically significant, sudden or life threatening deterioration of the following system(s) required my full and direct attention, intervention and personal management. The time I documented below is in addition to time spent performing reported procedures but includes the following listed in this critical care notation. Medical Decision Making - Medical Records Medical records reviewed: Yes: I reviewed the patient's medical records. - Reyes Inquiry Pt receiving controlled substance: No Vital Signs: 10/07/19 10:44 Temperature 98 F Temperature Source Oral Pulse Rate [Left Radial] 94 H Respiratory Rate 16 Blood Pressure [Right Arm] 145/91 H Blood Pressure Mean [Right Arm] 109 Blood Pressure Position [Right Arm] Sitting 02 Sat by Pulse Oximetry 98 Oxygen Delivery Method Room Air - Lab Data Lab results reviewed: Yes: I reviewed the patient's lab results. Back Pain HPI - General Chief Complaint: Back Pain/Injury Stated Complaint: Leg pain Time Seen by Provider: 10/07/19 11:46 Mode of Arrival: Ambulatory Limitations: No Limitations Description of Symptoms (Recalled from ER Triage Doc. by RN): to ed per pvt car with c/o lower back pain radiating down rt leg. chronic problem worse this am. pt denies any incontinence of bowel or bladder. - History of Present Illness HPI Narrative: 84-year-old gentleman comes in with acute on chronic back pain. He states that he is had chronic back pain for last 6 7 years. It is today was progressively worse. He describes pain around the belt line no radiation into the either legs or up the back. He states that the pain is 4 out of 10 classifies it as sharp. Patient states he does not have any bowel or bladder incontinence. Patient states that exacerbating factors include flexion at the waist and sitting for prolonged periods of time relieving factors include laying on a hard floor standing up. Patient denies any other acute issues. - Related Data Previous Rx's Medication Instructions Recorded Pantoprazole Sodium [Protonix 40mg 40 mg PO DAILY 30 Days #30 tab 10/04/19 tablet] Methocarbamol [Robaxin 500mg Tab*] 500 mg PO QID 10 Days #30 tab 10/07/19 Nabumetone 750 mg PO BID 10 Days #20 tab 10/07/19 Allergies Allergy/AdvReac Type Severity Reaction Status Date / Time No Known Allergies Allergy Verified 07/10/19 13:14 [facility] History - Hepatitis A Screen Drug use history?: No High risk sexual behaviors?: No History of sexually transmitted infection?: No Currently employed?: No Childcare worker?: No Do you have indoor plumbing?: Yes Do you have electricity?: Yes Attestation statement:: This patient has been screened for Hepatitis A risk factors. I have reviewed the patient's past medical history: Yes Medical History: Reports:: Hypertension Denies:: Cancer, Diabetes Mellitus Type 1, Diabetes Mellitus Type 2, MRSA Amputation: No Fractures: No - Social History Smoking Status: Never smoker Alcohol Intake: never Alcohol Intake Frequency:: holidays/special occasions only Occupational Status: other Housing: other Household Members: other ROS Obtained: Yes All systems reviewed & no additional complaints - Constitutional Constitutional: Reports system reviewed and no additional complaints, except as docu - Eyes Eyes: Reports system reviewed and no additional complaints, except as docu - ENT Ear
[2019-10-07 12:40] VITALS: BP 145/91; PULSE 94; RESP 16; TEMP 36.7; O2SAT 98
== END 2019-10-07 12:40 | disposition home or self-care (01) ==
PROVIDERS: Emergency Provider Family Medicine
DX: M54.5 Low back pain (principal); I10 Essential (primary) hypertension
CPT/HCPCS: 99281

== ENCOUNTER 2019-10-15 13:22 | Emergency (ER) | payer MEDICARE, OTHER, SELFPAY ==
[2019-10-15 13:36] VITALS: BP 181/101; PULSE 67; RESP 16; TEMP 36.7; O2SAT 97; BMI 23.3
--- NOTE | 2019-10-15 13:52 | HMH.EDUTC ---
[facility] [place] Disposition Clinical Impression: Joint pain Qualifiers: Joint pain location: unspecified Qualified Code(s): M25.50 - Pain in unspecified joint Disposition: Home, Self-Care Condition on Discharge: Good Instructions: DI for Joint Pain Additional Instructions: Follow up with your regular doctor for additional refills on your medications after today. Prescriptions: Nabumetone 750 mg PO BIDP PRN #20 tab PRN Reason: Moderate Pain Transmission Status: Received by [facility] Referrals: Provider,Referral, [Primary Care Provider] - Time of Disposition: 14:06 Medical Decision Making - Medical Records Medical records reviewed: Yes: I reviewed the patient's medical records. - Reyes Inquiry Pt receiving controlled substance: No Vital Signs: 10/15/19 13:36 10/15/19 14:08 Temperature 98.1 F 98.1 F Temperature Source Oral Pulse Rate 67 Pulse Rate [Right Brachial] 67 Respiratory Rate 16 16 Blood Pressure 166/98 H Blood Pressure [Right Arm] 181/101 H Blood Pressure Mean [Right Arm] 127 Blood Pressure Source [Right Arm] Automatic Cuff Blood Pressure Position [Right Arm] Sitting 02 Sat by Pulse Oximetry 97 Oxygen Delivery Method Room Air - Lab Data Lab results reviewed: Yes: I reviewed the patient's lab results. [facility] [place] HPI - General Stated complaint: need meds Time Seen by Provider: 10/15/19 13:52 Mode of Arrival: Ambulatory Source of Information: Patient Limitations: No Limitations Description of Symptoms (Recalled from Triage Doc. by RN): PATIENT REQUESTING REFILLS FOR METHOCARBOMAL AND NABUMETONE HEENT Symptoms (Recalled from RN notes): No Resp Symptoms (Recalled from RN notes): No Skin Symptoms (Recalled from RN notes): No MS Symptoms (Recalled from RN notes): No Functional Status (Recalled from RN notes): WNL - History of Present Illness Provider Complaint: He is here to get a refill on his nambutone. He states that he has a lot of joint pain and this medication really helped him. His regular doctor is at the [facility] and its hard for him to get all the way to [place]. - Related Data Previous Rx's Medication Instructions Recorded Pantoprazole Sodium [Protonix 40mg 40 mg PO DAILY 30 Days #30 tab 10/04/19 tablet] Methocarbamol [Robaxin 500mg Tab*] 500 mg PO QID 10 Days #30 tab 06/21/20 Nabumetone 750 mg PO BID 10 Days #20 tab 10/07/19 Nabumetone 750 mg PO BIDP PRN #20 tab 10/15/19 Allergies Allergy/AdvReac Type Severity Reaction Status Date / Time No Known Allergies Allergy Verified 07/10/19 13:14 - Worker's Comp Is this a Worker's Comp case?: No H History - Hepatitis A Screen Drug use history?: No High risk sexual behaviors?: No History of sexually transmitted infection?: No Currently employed?: No Childcare worker?: No Do you have indoor plumbing?: Yes Do you have electricity?: Yes Attestation statement:: This patient has been screened for Hepatitis A risk factors. I have reviewed the patient's past medical history: Yes Medical History: Reports:: Hypertension Denies:: Cancer, Diabetes Mellitus Type 1, Diabetes Mellitus Type 2, MRSA Amputation: No Fractures: No - Social History Smoking Status: Never smoker Alcohol Intake: never Alcohol Intake Frequency:: holidays/special occasions only Occupational Status: other Housing: other Household Members: other ROS Obtained: Yes All systems reviewed & no additional complaints - Constitutional Constitutional: Denies chills, Denies fever(s) - Musculoskeletal Musculoskeletal: Reports joint pain, Reports back pain - Integumentary/Breasts Skin/Breast: Denies redness, Denies rash, Denies skin ulcer - Neurologic Neurologic: Denies tingling/numbness/burning sensations Physical Exam - General General appearance: alert, in no apparent distress - Head Head exam: atraumatic, normocephalic, normal inspection - Eye Eye exam: Present: normal appearance, PERRL, EOMI - ENT ENT exam: Pr
[2019-10-15 14:08] VITALS: BP 166/98; PULSE 67; RESP 16; TEMP 36.7; O2SAT 97
== END 2019-10-15 14:10 | disposition home or self-care (01) ==
PROVIDERS: Emergency Provider Nurse Practitioner Family
DX: M25.50 Pain in unspecified joint (principal); I10 Essential (primary) hypertension; K21.9 Gastro-esophageal reflux disease without esophagitis; Z79.899 Other long term (current) drug therapy
CPT/HCPCS: 99201

== ENCOUNTER 2019-11-06 08:42 | Emergency (ER) | payer MEDICARE, OTHER, SELFPAY ==
[2019-11-06 08:52] VITALS: BP 141/83; PULSE 72; RESP 18; TEMP 36.8; O2SAT 95; BMI 26.6
--- NOTE | 2019-11-06 08:59 | HMH.EDGENADL ---
ED Disposition Clinical Impression: Medication care plan discussed with patient GERD (gastroesophageal reflux disease) Qualifiers: Esophagitis presence: esophagitis presence not specified Qualified Code(s): K21.9 - Gastro-esophageal reflux disease without esophagitis Disposition: Home, Self-Care Condition on Discharge: Good Instructions: DI for Gastroesophageal Reflux Disease (GERD), GERD Diet Referrals: PCP,No [Primary Care Provider] - Time of Disposition: 09:23 - Critical Care Critical Care Time: No Attestation: On 11/06/19, the high probability of a clinically significant, sudden or life threatening deterioration of the following system(s) required my full and direct attention, intervention and personal management. The time I documented below is in addition to time spent performing reported procedures but includes the following listed in this critical care notation. Medical Decision Making - Medical Records Medical records reviewed: Yes: I reviewed the patient's medical records. - Reyes Inquiry Pt receiving controlled substance: No Vital Signs: 11/06/19 08:52 Temperature 98.2 F Temperature Source Oral Pulse Rate [Right Brachial] 72 Respiratory Rate 18 Blood Pressure [Right Arm] 141/83 H Blood Pressure Mean [Right Arm] 102 Blood Pressure Source [Right Arm] Automatic Cuff Blood Pressure Position [Right Arm] Sitting 02 Sat by Pulse Oximetry 95 Oxygen Delivery Method Room Air Medical Decision Narrative: In summary this is an 84-year-old male presenting to the emergency department with reflux symptoms. Patient is overall well-appearing on arrival. I doubt that this is a condition more significant, like acute coronary syndrome. Patient denies any changes in his somatic symptoms over the last few weeks. Patient given one-time dose of Carafate. On reassessment patient said that he was feeling much better. I counseled him that he may take Carafate, Maalox, Tums when he has symptoms on occasion. Recommended not eating before sleep and avoiding spicy foods, avoid coffee. Patient overall well-appearing and stable for discharge. General Adult HPI - General Chief complaint: PAIN Stated complaint: reflux Time Seen by Provider: 11/06/19 09:00 Mode of Arrival: Ambulatory Source of Information: Patient Limitations: No Limitations Description of Symptoms (Recalled from ER Triage Doc. by RN): wants to know if stomach medication prescribed from the [facility] is a good medication. still having refulx. would like recommendation for other med - History of Present Illness HPI narrative: 84-year-old male well-known to our emergency department presenting to the emergency department with reflux. He has been taking omeprazole for the last few weeks. [facility], he is concerned that it is not the best medication. Reflux symptoms are worse at night when he lays down. He also has them intermittently throughout the day. No particular chest pain, shortness of breath, abdominal pain, nausea, vomiting. He does not follow any particular diet. Goes to sleep early, sometimes right after dinner. Continues to drink coffee throughout the day. - Related Data Home Medications Medication Instructions Recorded Confirmed Methocarbamol [Robaxin 500mg Tab*] 500 mg PO QID 11/06/19 Nabumetone 750 mg PO BID 11/06/19 Pantoprazole Sodium [Protonix 40mg 40 mg PO DAILY 11/06/19 tablet] Previous Rx's Medication Instructions Recorded Nabumetone 750 mg PO BIDP PRN #20 tab 10/15/19 Allergies Allergy/AdvReac Type Severity Reaction Status Date / Time No Known Allergies Allergy Verified 11/06/19 08:58 [facility] History - Hepatitis A Screen Drug use history?: No High risk sexual behaviors?: No History of sexually transmitted infection?: No Currently employed?: No Childcare worker?: No Do you have indoor plumbing?: No Do you have electricity?: Yes Attestation statement:: This patien
[2019-11-06 09:05] VITALS: BP 127/59; PULSE 75; O2SAT 95
[2019-11-06 09:46] VITALS: BP 125/62; PULSE 65; RESP 16; TEMP 36.8; O2SAT 98
== END 2019-11-06 09:47 | disposition home or self-care (01) ==
PROVIDERS: Emergency Provider Emergency Medicine
DX: K21.9 Gastro-esophageal reflux disease without esophagitis (principal); I10 Essential (primary) hypertension; Z79.899 Other long term (current) drug therapy
CPT/HCPCS: 99282

== ENCOUNTER 2019-11-20 11:36 | Emergency (ER) | payer MEDICARE, OTHER, SELFPAY ==
[2019-11-20 11:47] VITALS: BP 167/102; PULSE 62; RESP 18; TEMP 36.7; O2SAT 95; BMI 27.4
--- NOTE | 2019-11-20 11:53 | HMH.EDGENADL ---
ED Disposition Clinical Impression: Chronic pain of right lower extremity Disposition: Home, Self-Care Condition on Discharge: Good Instructions: DI for Chronic Pain -- Adult Additional Instructions: you can try Voltaren gel for your arthritic pain in your right leg, today of the right knee. Follow-up with your [place] physician in the next 2 to 3 days. If you have any new, changing, worsening, or concerning symptoms, come back to the emergency department. Prescriptions: Diclofenac Sodium [Voltaren Arthritis Pain] 4 gm TP TID #1 gel..gram. Transmission Status: Received by [facility] Referrals: PCP,No [Primary Care Provider] - Time of Disposition: 12:16 - Critical Care Critical Care Time: No Attestation: On , the high probability of a clinically significant, sudden or life threatening deterioration of the following system(s) required my full and direct attention, intervention and personal management. The time I documented below is in addition to time spent performing reported procedures but includes the following listed in this critical care notation. Medical Decision Making - Medical Records Medical records reviewed: Yes: I reviewed the patient's medical records. MR Comment: 84-year-old male presents emergency department with chronic right knee and hip pain. He arrives to the ED hemodynamically stable, with reassuring vital signs, and looks well on exam. He has no acute changes of his pain and is been told he has arthritis but is been taking aspirin and wondering if there is anything else we could do for his arthritis. He follows with a PCP at the [place]. On exam, he has good strength and sensation, no overlying skin changes to suggest infection such as cellulitis or septic arthritis and he is very well-appearing. He denies any recent trauma or falls or changes in his pain over the last weeks. He denies any history of kidney or liver disease or any recent back pain. No sciatica. We will give him a prescription for Voltaren gel and advised that he follow-up with his PCP in the next 2 to 3 days. He is given strict return precautions and discharge instructions and verbalized understanding and agreement to the plan. Safe to discharge. - Reyes Inquiry Pt receiving controlled substance: No Vital Signs: 11/20/19 11:47 11/20/19 12:34 Temperature 98.1 F 98.1 F Temperature Source Oral Oral Pulse Rate 62 Pulse Rate [Left Radial] 62 Respiratory Rate 18 17 Blood Pressure 160/89 H Blood Pressure [Left Arm] 167/102 H Blood Pressure Mean [Left Arm] 123 Blood Pressure Source [Left Arm] Automatic Cuff Blood Pressure Position [Left Arm] Sitting 02 Sat by Pulse Oximetry 95 Oxygen Delivery Method Room Air Room Air Orders (Tests/Meds): ED MEDICATIONS Discontinued Medications Generic Name Dose Route Start Last Admin Trade Name Pita PRN Reason Stop Dose Admin Acetaminophen 500 mg 11/20/19 12:05 11/20/19 12:22 Tylenol 500mg Tablet PO 11/20/19 12:06 500 mg ONCE ONE Administration General Adult HPI - General Chief complaint: PAIN Stated complaint: leg pain Time Seen by Provider: 11/20/19 11:53 - History of Present Illness HPI narrative: 84-year-old male presents emergency department with right leg pain. He states he has had right leg pain for months and been told that his arthritis but does not really know what that means. He denies any recent falls or trauma. He denies any new type of pain. He describes it as an achy pain in his knee and hip on the right side. He said he [facility] and that does not really help very much. No fever or chills. Has been eating and drinking well. Is ambulatory. He denies any recent changes or concerns. - Related Data Home Medications Medication Instructions Recorded Confirmed Methocarbamol [Robaxin 500mg Tab*] 500 mg PO QID 11/06/19 Nabumetone 750 mg PO BID 11/06/19 Pantoprazole Sodium [Protonix 40mg 40 mg PO
[2019-11-20 12:34] VITALS: BP 160/89; PULSE 62; RESP 17; TEMP 36.7; O2SAT 99
== END 2019-11-20 12:36 | disposition home or self-care (01) ==
PROVIDERS: Emergency Provider Emergency Medicine
DX: M79.661 Pain in right lower leg (principal); M25.551 Pain in right hip; I10 Essential (primary) hypertension; Z79.899 Other long term (current) drug therapy
CPT/HCPCS: 99281

== ENCOUNTER 2019-12-22 09:55 | Emergency (ER) | payer MEDICARE, OTHER, SELFPAY ==
[2019-12-22 09:57] VITALS: BP 147/90; PULSE 82; RESP 19; TEMP 36.6; O2SAT 98; BMI 30.9
--- NOTE | 2019-12-22 10:13 | HMH.EDGENADL ---
ED Disposition Clinical Impression: Encounter for medical screening examination Disposition: Home, Self-Care Condition on Discharge: Good Instructions: DI for Animal Bites Referrals: PCP,No [Primary Care Provider] - 3 days - Critical Care Critical Care Time: No Attestation: On 12/22/19, the high probability of a clinically significant, sudden or life threatening deterioration of the following system(s) required my full and direct attention, intervention and personal management. The time I documented below is in addition to time spent performing reported procedures but includes the following listed in this critical care notation. Medical Decision Making - Medical Records Medical records reviewed: Yes: I reviewed the patient's medical records. - Reyes Inquiry Pt receiving controlled substance: No Medical Decision Narrative: Patient with no acute complaints and has not observed exactly where there is a rat bite on his body, swelling likely cellulitis or abscess. He appears healthy and well on medical screening exam and is discharged home to follow-up with primary care provider in 2 to 3 days for reevaluation. General Adult HPI - General Stated complaint: rat bite foot Time Seen by Provider: 12/22/19 10:13 Mode of Arrival: Ambulatory Source of Information: Patient Limitations: No Limitations - History of Present Illness HPI narrative: This is an 84-year-old male who presents to the emergency department for general medical screening exam after thinking he was bit by a rat sometime in the last several days. He is not sure where the rat bit him and has not noticed any rash. He has no acute complaints here today and wants a medical screening exam. - Related Data Home Medications Medication Instructions Recorded Confirmed Methocarbamol [Robaxin 500mg Tab*] 500 mg PO QID 11/06/19 Nabumetone 750 mg PO BID 11/06/19 Pantoprazole Sodium [Protonix 40mg 40 mg PO DAILY 11/06/19 tablet] Previous Rx's Medication Instructions Recorded Nabumetone 750 mg PO BIDP PRN #20 tab 10/15/19 Diclofenac Sodium [Voltaren 4 gm TP TID #1 gel..gram. 11/20/19 Arthritis Pain] Allergies Allergy/AdvReac Type Severity Reaction Status Date / Time No Known Allergies Allergy Verified 11/06/19 08:58 [facility] History - Hepatitis A Screen Attestation statement:: This patient has been screened for Hepatitis A risk factors. I have reviewed the patient's past medical history: Yes Medical History: Reports:: Hypertension Denies:: Cancer, Diabetes Mellitus Type 1, Diabetes Mellitus Type 2, MRSA Amputation: No Fractures: No - Social History Smoking Status: Never smoker Alcohol Intake: never Alcohol Intake Frequency:: holidays/special occasions only Occupational Status: other Housing: other Household Members: other ROS Obtained: Yes All systems reviewed & no additional complaints Physical Exam - General General appearance: alert, in no apparent distress - Head Head exam: atraumatic, normocephalic, normal inspection - Neck Neck exam: Present: normal inspection, full ROM, trachea midline - Respiratory Respiratory exam: Absent: respiratory distress - Cardiovascular Cardiovascular exam: Present: regular rate - Neurological Exam Neurological exam: Present: alert, oriented X3 - Skin Skin exam: Present: warm, dry
[2019-12-22 10:25] VITALS: BP 140/82; PULSE 77; RESP 18; TEMP 36.6; O2SAT 97
== END 2019-12-22 10:27 | disposition home or self-care (01) ==
PROVIDERS: Emergency Provider Emergency Medicine
DX: Z13.9 Encounter for screening, unspecified (principal); I10 Essential (primary) hypertension
CPT/HCPCS: 99281

== ENCOUNTER 2019-12-28 11:20 | Emergency (ER) | payer MEDICARE, OTHER, SELFPAY ==
[2019-12-28 11:28] VITALS: BP 133/60; PULSE 90; RESP 16; TEMP 36.6; O2SAT 98; BMI 27.4
--- NOTE | 2019-12-28 11:52 | CT_ITS ---
PROCEDURE: CT CERVICAL SPINE WO CON CLINICAL INDICATION: pain Posterior neck COMPARISON: No exams were available for comparison TECHNIQUE: Axial images obtained with sagittal and coronal reformats. All CT scans at the facility use one or more dose reduction, viz: automated exposure control, ma/kV adjustment per patient size (including targeted exams where dose is matched to indication, i.e. head), or iterative reconstruction technique. Axial spiral CT scanning performed of the cervical spine beginning at the base of the skull and continuing to the upper T-spine. 3-D multiplanar reconstruction with 3-D manipulation of volumetric data set in image rendering was completed by the radiologist and/or technologist with the supervision of the radiologist on independent workstation. FINDINGS: There is normal alignment. No acute fracture or dislocation. No lytic or blastic change. C2-C3: Mild degenerative disc disease. C3-C4: Degenerate disc disease with endplate hypertrophic change with bony canal stenosis of 10 mm. There is mild bilateral foraminal narrowing. C4-C5: Degenerate disc disease with endplate hyper per trapeze with bilateral foraminal narrowing. C5-C6: Degenerate disc disease with facet and uncovertebral hypertrophy with bilateral foraminal narrowing right greater than left C6-C7: Degenerative disc disease with facet hypertrophic change and bilateral foraminal narrowing left greater than right with some endplate sclerosis. C7-T1: Unremarkable. IMPRESSION: Multilevel cervical spondylosis as detailed above. Dictated by: Alex Cabrales MD 12/28/2019 13:29 Alex Cabrales MD in [place] 12/28/2019 13:29
--- NOTE | 2019-12-28 13:11 | HMH.EDNECK ---
ED Disposition Clinical Impression: Strain of neck muscle Qualifiers: Encounter type: initial encounter Qualified Code(s): S16.1XXA - Strain of muscle, fascia and tendon at neck level, initial encounter Disposition: Home, Self-Care Condition on Discharge: Good Instructions: DI for Neck Pain Referrals: PCP,Rafaela [Primary Care Provider] - Haseeb Donis MD [Staff Physician] - - Critical Care Critical Care Time: No Attestation: On 12/28/19, the high probability of a clinically significant, sudden or life threatening deterioration of the following system(s) required my full and direct attention, intervention and personal management. The time I documented below is in addition to time spent performing reported procedures but includes the following listed in this critical care notation. Medical Decision Making - Medical Records Medical records reviewed: Yes: I reviewed the patient's medical records. - Reyes Inquiry Pt receiving controlled substance: No Vital Signs: 12/28/19 11:28 Temperature 98 F Temperature Source Oral Pulse Rate [Left Radial] 90 Respiratory Rate 16 Blood Pressure [Right Arm] 133/60 Blood Pressure Mean [Right Arm] 84 Blood Pressure Position [Right Arm] Sitting 02 Sat by Pulse Oximetry 98 Oxygen Delivery Method Room Air Orders (Tests/Meds): ED MEDICATIONS Discontinued Medications Generic Name Dose Route Start Last Admin Trade Name Freq PRN Reason Stop Dose Admin Acetaminophen 500 mg 12/28/19 11:52 12/28/19 12:08 Tylenol 500mg Tablet PO 12/28/19 11:53 500 mg ONCE ONE Administration - CT Data CT Scan: C-Spine Time Received: 13:53 Findings Narrative: IMPRESSION: Multilevel cervical spondylosis as detailed above. - Reevaluation(s) Time: 13:53 Reevaluation #1: on reevaluation, patient's pain has improved. Full ROM. Given strict return precautions. Needs to follow up with [facility] verbalized understanding Medical Decision Narrative: 84 y/o M presenting with subacute neck discomfort. Patient thinks he was bitten by a rat for some reason. There is no evidence of abscess or skin innoculation. Imaging will be obtained. Neck Pain/Injury HPI - General Chief Complaint: Neck Pain/Injury Stated Complaint: right side neck head pain Time Seen by Provider: 12/28/19 11:35 Limitations: No Limitations Description of Symptoms (Recalled from ER Triage Doc. by RN): to ed per pvt car with c/o rt side neck pain x 3 days. - History of Present Illness HPI Narrative: 84 y/o male presenting to the ER with complaints of neck pain. Patient has garza right sided neck discomfort for the last 3 days. He states that he thinks he was bitten by a rat, however there is no lesion on the neck. He denies any new injury. Does have a history of neck problems in the past. Patient states that he feels like it is stiff. He denies any new rash. No fevers or chills. No headache. Denies any chest pain or shortness of breath. No abdominal pain or vomiting. No recent travel or sick contacts. - Related Data Home Medications Medication Instructions Recorded Confirmed Methocarbamol [Robaxin 500mg Tab*] 500 mg PO QID 11/06/19 Nabumetone 750 mg PO BID 11/06/19 Pantoprazole Sodium [Protonix 40mg 40 mg PO DAILY 11/06/19 tablet] Previous Rx's Medication Instructions Recorded Nabumetone 750 mg PO BIDP PRN #20 tab 10/15/19 Diclofenac Sodium [Voltaren 4 gm TP TID #1 gel..gram. 11/20/19 Arthritis Pain] Allergies Allergy/AdvReac Type Severity Reaction Status Date / Time No Known Allergies Allergy Verified 11/06/19 08:58 [facility] History - Hepatitis A Screen Drug use history?: No High risk sexual behaviors?: No History of sexually transmitted infection?: No Currently employed?: No Childcare worker?: No Do you have indoor plumbing?: Yes Do you have electricity?: Yes Attestation statement:: This patient has been screened for Hepatitis A risk factors.
[2019-12-28 14:05] VITALS: BP 135/74; PULSE 90; RESP 16; TEMP 36.6; O2SAT 98
== END 2019-12-28 14:06 | disposition home or self-care (01) ==
PROVIDERS: Emergency Provider Emergency Medicine
DX: S16.1XXA Strain of muscle, fascia and tendon at neck level, initial encounter (principal); I10 Essential (primary) hypertension
CPT/HCPCS: 72125; 99282

== ENCOUNTER 2019-12-29 08:55 | Emergency (ER) | payer MEDICARE, OTHER, SELFPAY ==
[2019-12-29 08:58] VITALS: BP 132/86; PULSE 62; RESP 16; TEMP 36.8; O2SAT 99; BMI 25.4
--- NOTE | 2019-12-29 09:11 | HMH.EDNECK ---
ED Disposition Clinical Impression: Disc disorder of cervical region Disposition: Home, Self-Care Condition on Discharge: Good Instructions: DI for Neck Pain, Degenerative Disc Disease Prescriptions: Cyclobenzaprine HCl [Cyclobenzaprine 5mg Tab] 5 mg PO Q8HP PRN #30 tab PRN Reason: pain/spasm Transmission Status: Pending to [facility] Ketorolac Tromethamine [Toradol 10mg tablet] 10 mg PO Q6H 5 Days #20 tab Transmission Status: Pending to [facility] Referrals: PCP,No [Primary Care Provider] - - Critical Care Critical Care Time: No Attestation: On 12/29/19, the high probability of a clinically significant, sudden or life threatening deterioration of the following system(s) required my full and direct attention, intervention and personal management. The time I documented below is in addition to time spent performing reported procedures but includes the following listed in this critical care notation. Medical Decision Making - Medical Records Medical records reviewed: Yes: I reviewed the patient's medical records. - Reyes Inquiry Pt receiving controlled substance: No Vital Signs: 12/29/19 08:58 Temperature 98.2 F Temperature Source Oral Pulse Rate [Right Radial] 62 Respiratory Rate 16 Blood Pressure [Right Arm] 132/86 Blood Pressure Mean [Right Arm] 101 02 Sat by Pulse Oximetry 99 Oxygen Delivery Method Room Air Neck Pain/Injury HPI - General Chief Complaint: Neck Pain/Injury Stated Complaint: pain in back of neck Time Seen by Provider: 12/29/19 09:10 Mode of Arrival: Ambulatory Source of Information: Patient Limitations: No Limitations Description of Symptoms (Recalled from ER Triage Doc. by RN): pt presents to ed with c/o neck and head pain. pt was evaluated in ed yesterday for same complaint. pt states that his neck is not any better. - History of Present Illness HPI Narrative: Is a 89-year-old -[place] male that presents with neck pain x24 hours. Patient woke yesterday with neck pain and stiffness. Patient denies any rigidity more along the line of muscle spasm and dull ache. Pain rated at 5 out of 10 in intensity without radiation. Pain provoked with neck movement particularly with rotation to the right. No noted injury or trauma. No fever no chills. No headache. No focal neurologic deficit. - Related Data Home Medications Medication Instructions Recorded Confirmed Methocarbamol [Robaxin 500mg Tab*] 500 mg PO QID 07/21/20 Nabumetone 750 mg PO BID 11/06/19 Pantoprazole Sodium [Protonix 40mg 40 mg PO DAILY 11/06/19 tablet] Previous Rx's Medication Instructions Recorded Nabumetone 750 mg PO BIDP PRN #20 tab 10/15/19 Diclofenac Sodium [Voltaren 4 gm TP TID #1 gel..gram. 11/20/19 Arthritis Pain] Cyclobenzaprine HCl 5 mg PO Q8HP PRN #30 tab 12/29/19 [Cyclobenzaprine 5mg Tab] Ketorolac Tromethamine [Toradol 10 mg PO Q6H 5 Days #20 tab 12/29/19 10mg tablet] Allergies Allergy/AdvReac Type Severity Reaction Status Date / Time No Known Allergies Allergy Verified 12/29/19 09:04 [facility] History - Hepatitis A Screen Drug use history?: No High risk sexual behaviors?: No History of sexually transmitted infection?: No Currently employed?: No Childcare worker?: No Do you have indoor plumbing?: Yes Do you have electricity?: Yes Attestation statement:: This patient has been screened for Hepatitis A risk factors. I have reviewed the patient's past medical history: Yes Medical History: Reports:: Hypertension Denies:: Cancer, Diabetes Mellitus Type 1, Diabetes Mellitus Type 2, MRSA Amputation: No Fractures: No - Social History Smoking Status: Former smoker Alcohol Intake: never Alcohol Intake Frequency:: holidays/special occasions only Occupational Status: other Housing: skilled nursing Household Members: other Family Hx:: Non-contributory ROS Obtained: Yes All systems reviewed & no additional complaints Physical Exam
[2019-12-29 09:32] VITALS: BP 120/85; PULSE 60; RESP 14; TEMP 36.8; O2SAT 99
== END 2019-12-29 09:33 | disposition home or self-care (01) ==
PROVIDERS: Emergency Provider Emergency Medicine
DX: M50.90 Cervical disc disorder, unspecified, unspecified cervical region (principal); I10 Essential (primary) hypertension; Z87.891 Personal history of nicotine dependence
CPT/HCPCS: 96372; 99281

== ENCOUNTER 2020-01-19 11:27 | Emergency (ER) | payer MEDICARE, OTHER, SELFPAY ==
[2020-01-19 11:28] VITALS: BP 158/98; PULSE 73; RESP 17; TEMP 36.4; O2SAT 97; BMI 26.6
--- NOTE | 2020-01-19 11:39 | HMH.EDGENADL ---
ED Disposition Clinical Impression: Chronic nasal congestion Disposition: Home, Self-Care Condition on Discharge: Good Additional Instructions: Call Dr. Altman (Ear, Nose, Throat specialist) to arrange an appointment. Referrals: PCP,Rafaela [Primary Care Provider] - Perry Altman MD [Staff Physician] - - Critical Care Critical Care Time: No Attestation: On , the high probability of a clinically significant, sudden or life threatening deterioration of the following system(s) required my full and direct attention, intervention and personal management. The time I documented below is in addition to time spent performing reported procedures but includes the following listed in this critical care notation. Medical Decision Making - Reyes Inquiry Pt receiving controlled substance: No Vital Signs: 01/19/20 11:28 Temperature 97.6 F Temperature Source Temporal Artery Scan Pulse Rate [Right] 73 Respiratory Rate 17 Blood Pressure [Right Arm] 158/98 H Blood Pressure Mean [Right Arm] 118 02 Sat by Pulse Oximetry 97 General Adult HPI - General Chief complaint: Upper Respiratory Infection Stated complaint: stuffy nose Time Seen by Provider: 01/19/20 11:40 Mode of Arrival: Ambulatory Limitations: No Limitations Description of Symptoms (Recalled from ER Triage Doc. by RN): C/O nasal and sinus congestion for several weeks. - History of Present Illness HPI narrative: The patient is known to me from frequent previous emergency department visits. He now complains of nasal congestion. He says it has been going on for quite some time . When asked to specify he says he thinks it is been there for a year or so. He also wants his ears checked. His primary care provider [place] but he says he has trouble getting there, does not have a ride. - Related Data Home Medications Medication Instructions Recorded Confirmed Methocarbamol [Robaxin 500mg Tab*] 500 mg PO QID 11/06/19 Nabumetone 750 mg PO BID 11/06/19 Pantoprazole Sodium [Protonix 40mg 40 mg PO DAILY 11/06/19 tablet] Previous Rx's Medication Instructions Recorded Nabumetone 750 mg PO BIDP PRN #20 tab 10/15/19 Diclofenac Sodium [Voltaren 4 gm TP TID #1 gel..gram. 11/20/19 Arthritis Pain] Cyclobenzaprine HCl 5 mg PO Q8HP PRN #30 tab 12/29/19 [Cyclobenzaprine 5mg Tab] Ketorolac Tromethamine [Toradol 10 mg PO Q6H 5 Days #20 tab 12/29/19 10mg tablet] Allergies Allergy/AdvReac Type Severity Reaction Status Date / Time No Known Allergies Allergy Verified 12/29/19 09:04 [facility] History - Hepatitis A Screen Drug use history?: No High risk sexual behaviors?: No History of sexually transmitted infection?: No Currently employed?: No Childcare worker?: No Do you have indoor plumbing?: Yes Do you have electricity?: Yes Attestation statement:: This patient has been screened for Hepatitis A risk factors. I have reviewed the patient's past medical history: Yes Medical History: Reports:: Hypertension Denies:: Cancer, Diabetes Mellitus Type 1, Diabetes Mellitus Type 2, MRSA Amputation: No Fractures: No - Social History Smoking Status: Former smoker Alcohol Intake: never Alcohol Intake Frequency:: holidays/special occasions only Occupational Status: other Housing: [facility] Household Members: other Family Hx:: Non-contributory ROS Obtained: Yes Systems reviewed as appropriate & no additional complaints - Constitutional Constitutional: Denies fever(s) - ENT Ears, Nose, Mouth, and Throat: Reports nasal congestion, Reports nasal obstruction Physical Exam - General General appearance: alert, in no apparent distress Comment: Sitting in a chair drinking a cup of coffee - Head Head exam: atraumatic, normocephalic - Eye Eye exam: Present: normal appearance, EOMI - ENT ENT exam: Present: normal oropharynx, mucous membranes moist, TM's normal bilaterally - Expanded ENT Exam Comment: He can breathe thr
[2020-01-19 11:57] VITALS: BP 150/85; PULSE 78; RESP 18; TEMP 36.8; O2SAT 98
== END 2020-01-19 11:59 | disposition home or self-care (01) ==
PROVIDERS: Emergency Provider Emergency Medicine
DX: J06.9 Acute upper respiratory infection, unspecified (principal); I10 Essential (primary) hypertension; Z87.891 Personal history of nicotine dependence; Z79.899 Other long term (current) drug therapy
CPT/HCPCS: 99281

== ENCOUNTER 2020-02-29 13:18 | Emergency (ER) | payer MEDICARE, OTHER, SELFPAY ==
[2020-02-29 13:19] VITALS: BP 139/91; PULSE 57; RESP 18; TEMP 36.5; O2SAT 95; BMI 26.6
--- NOTE | 2020-02-29 13:25 | HMH.EDGENADL ---
ED Disposition Clinical Impression: Acute urinary retention Constipation Qualifiers: Constipation type: unspecified constipation type Qualified Code(s): K59.00 - Constipation, unspecified Disposition: Home, Self-Care Condition on Discharge: Good Instructions: DI for Urinary Tract Infection (UTI), How to Care for Your Benjamin Catheter -- Male, DI for Urinary Retention in Men, DI for Constipation Additional Instructions: MiraLAX as prescribed for constipation. Take antibiotic, Cipro, as prescribed. Flomax as prescribed. Leave catheter in until you follow-up with Dr. Cabrera, urology. Call his office on Tuesday to make appointment to be seen. Prescriptions: Ciprofloxacin HCl [Ciprofloxacin 500mg Tab] 500 mg PO BID #14 tab Transmission Status: Pending to [facility] Tamsulosin HCl [Flomax 0.4mg capsule] 0.4 mg PO HS #10 cap.er.24h Transmission Status: Pending to [facility] Referrals: PCPRafaeal [Primary Care Provider] - Guero Cabrera MD [Staff Physician] - - Critical Care Critical Care Time: No Attestation: On , the high probability of a clinically significant, sudden or life threatening deterioration of the following system(s) required my full and direct attention, intervention and personal management. The time I documented below is in addition to time spent performing reported procedures but includes the following listed in this critical care notation. Medical Decision Making - Reyes Inquiry Pt receiving controlled substance: No Vital Signs: 02/29/20 13:19 Temperature 97.7 F Temperature Source Oral Pulse Rate [Left Radial] 57 L Respiratory Rate 18 Blood Pressure [Left Arm] 139/91 H Blood Pressure Mean [Left Arm] 107 Blood Pressure Source [Left Arm] Automatic Cuff Blood Pressure Position [Left Arm] Sitting 02 Sat by Pulse Oximetry 95 Oxygen Delivery Method Room Air - Lab Data Lab Results 02/29/20 13:33: Stool Occult Blood Negative 02/29/20 13:50: Urine Color Yellow, Urine Appearance Clear, Urine pH 6.5, Ur Specific [place] 1.010, Urine Protein Negative, Urine Glucose (UA) Negative, Urine Ketones Negative, Urine Blood Negative, Urine Nitrate Negative, Urine Bilirubin Negative, Urine Urobilinogen 0.2, Ur Leukocyte Esterase 1+ A, Urine RBC 3-5, Urine WBC 5-10, Ur Squamous Epith Cells 3-5, Urine Bacteria Trace 02/29/20 14:05: WBC 4.6 L, RBC 4.73, Hgb 13.0 L, Hct 39.7 L, MCV 83.9, MCH 27.5, MCHC 32.8, RDW 14.4, Plt Count 245, MPV 7.3 L, Neut % (Auto) 42.2, Lymph % (Auto) 48.8, [place] % (Auto) 6.8, Eos % (Auto) 1.5, Baso % (Auto) 0.7, Neut # (Auto) 1.9, Lymph # (Auto) 2.2, [place] # (Auto) 0.3, Eos # (Auto) 0.1, Baso # (Auto) 0.0 02/29/20 14:05: Sodium 139, Potassium 3.9, Chloride 105, Carbon Dioxide 27, Anion Gap 10.9, BUN 13, Creatinine 1.40 H, Estimated Creat Clear 42, Estimated GFR 48 L, Est GFR ( Amer) 58 L, Glucose 140 H, Calcium 9.6 Result diagrams: 02/29/20 14:05 02/29/20 14:05 Orders (Tests/Meds): ORDERS Category Date Time Status Urine Culture Stat Micro 02/29/20 13:50 Received - Radiology Data #1 Image(s): Abdomen Image Reviewed: Yes I reviewed the patient's radiology image, Yes I have reviewed radiologist's interpretation PROCEDURE: XR ACUTE ABDOMEN SERIES CLINICAL INDICATION: constipation COMPARISON: No exams were available for comparison FINDINGS: Frontal view of the chest shows no acute finding. Upright and supine views of the abdomen shows Benjamin catheter in place. The bowel gas pattern is nonspecific with a mild amount of retained colonic feces. There are degenerative changes in the lumbar spine and hips. Multiple pelvic phleboliths are present. Prostate calcifications also noted. Other findings:None. IMPRESSION: Mild amount of retained colonic feces, no acute finding Dictated by: Alex Cabrales MD 02/29/2020 14:30 Alex Cabrales MD in [place] 02/29/2020 14:30 Medical Decision Narrative: States he has no way to get to the
--- NOTE | 2020-02-29 13:34 | XR_ITS ---
PROCEDURE: XR ACUTE ABDOMEN SERIES CLINICAL INDICATION: constipation COMPARISON: No exams were available for comparison FINDINGS: Frontal view of the chest shows no acute finding. Upright and supine views of the abdomen shows Benjamin catheter in place. The bowel gas pattern is nonspecific with a mild amount of retained colonic feces. There are degenerative changes in the lumbar spine and hips. Multiple pelvic phleboliths are present. Prostate calcifications also noted. Other findings:None. IMPRESSION: Mild amount of retained colonic feces, no acute finding Dictated by: Alex Cabrales MD 02/29/2020 14:30 Alex Cabrales MD in [place] 02/29/2020 14:30
[2020-02-29 13:40] LABS: Occult Blood,Stool Negative (Negative)
--- NOTE | 2020-02-29 14:10 | PC.NURSE ---
pt to xray
[2020-02-29 14:16] LABS: Basophils % 0.7 % (0.1-2.0); Eosinophils # 0.1 K/mm3 (0.0-0.4); Eosinophils % 1.5 % (0.1-12.0); Hematocrit 39.7 % (42.0-52.0); Lymphocytes # 2.2 K/mm3 (0.7-4.5); Lymphocytes % 48.8 % (10-50); Mean Corpuscular HGB Conc 32.8 g/dL (31.8-35.4); Mean Corpuscular Hemoglobin 27.5 pg (27.0-31.2); Mean Corpuscular Volume 83.9 fl (80-94); Mean Platelet Volume 7.3 fl (7.4-10.4); Monocytes # 0.3 K/mm3 (0.1-1.0); Monocytes % 6.8 % (1.7-9.3); Neutrophils # 1.9 K/mm3 (1.8-7.8); Neutrophils % 42.2 % (37.0-80.0); Platelet Count 245 K/mm3 (142-424); Red Blood Count 4.73 M/mm3 (4.60-6.20); Red Cell Distribution Width 14.4 % (11.5-17.5); White Blood Count 4.6 K/mm3 (4.8-10.8)
[2020-02-29 14:26] LABS: Microscopic, Urine URINE MICROSCOPIC (MICROSCOPIC)
[2020-02-29 14:29] LABS: Appearance,Urine CLEAR (Clear); Bilirubin,Urine Negative (Negative); Blood, Urine Negative (Negative); Color,Urine YELLOW (Yellow); Glucose,Urine (UA) Negative (Negative); Ketones,Urine Negative (Negative); Leukocyte Esterase,Urine 1+ (Negative); Nitrate,Urine Negative (Negative); PH,Urine 6.5 (5.0-8.5); Protein,Urine Negative (Negative); Urobilinogen,Urine 0.2 EU/dl (0.2)
[2020-02-29 14:45] LABS: Bacteria,Urine Trace /lpf
[2020-02-29 14:47] LABS: Chloride 105 mmol/L (98-107); Sodium 139 mmol/L (136-145)
[2020-02-29 14:48] LABS: Potassium 3.9 mmoL/L (3.5-5.1)
[2020-02-29 14:50] LABS: Blood Urea Nitrogen 13 mg/dl (9-20); Creatinine Clearance Estimated 42 mL/min (50-200); Estimated Glomerular Filt Rate 48 ml/min (>60); GFR (African American) 58 ML/MIN (>60)
[2020-02-29 14:51] LABS: Anion Gap 10.9 mEq/L (5-15); Calcium 9.6 mg/dl (8.4-10.2); Carbon Dioxide 27 mmol/L (22.0-30.0); Glucose 140 mg/dl (74-100)
--- NOTE | 2020-02-29 15:51 | SW/DCPLANNER ---
I have set up [employer] for this patient. Patient will be private pay for transportation: $2 total.
--- NOTE | 2020-02-29 15:56 | PC.NURSE ---
pt given catheter home care instructions
--- NOTE | 2020-02-29 15:56 | PC.NURSE ---
care management arranged a ride for pt.
[2020-02-29 16:12] VITALS: BP 176/116; PULSE 91; RESP 18; TEMP 36.5; O2SAT 97
[2020-02-29 16:15] VITALS: BP 176/116; PULSE 91
== END 2020-02-29 16:15 | disposition home or self-care (01) ==
PROVIDERS: Emergency Provider Emergency Medicine
DX: K59.00 Constipation, unspecified (principal); R33.8 Other retention of urine; I10 Essential (primary) hypertension; Z79.899 Other long term (current) drug therapy; Z87.891 Personal history of nicotine dependence
CPT/HCPCS: 74021; 80048; 81001; 82272; 85025; 87086; 99283; G0328

== ENCOUNTER 2020-03-03 08:58 | Emergency (ER) | payer MEDICARE, OTHER, SELFPAY ==
[2020-03-03 09:15] VITALS: BP 155/92; PULSE 78; RESP 18; TEMP 36.7; O2SAT 98; BMI 24.2
--- NOTE | 2020-03-03 09:36 | PC.NURSE ---
catheter leg bag changed at this time, will continue to monitor.
[2020-03-03 09:38] VITALS: BP 176/86; PULSE 75; O2SAT 98
--- NOTE | 2020-03-03 09:38 | PC.NURSE ---
follow up appointment for urology made for pt for tomorrow at 2pm
--- NOTE | 2020-03-03 09:48 | HMH.EDGENADL ---
ED Disposition Clinical Impression: Urinary retention Disposition: Home, Self-Care Condition on Discharge: Good Additional Instructions: It appears that the leg bag was was not connected to the Benjamin catheter this has been corrected and now it is properly connected please follow-up with your urologist Referrals: PCP,No [Primary Care Provider] - Time of Disposition: 10:22 - Critical Care Critical Care Time: No Attestation: On 03/03/20, the high probability of a clinically significant, sudden or life threatening deterioration of the following system(s) required my full and direct attention, intervention and personal management. The time I documented below is in addition to time spent performing reported procedures but includes the following listed in this critical care notation. Medical Decision Making - Medical Records Medical records reviewed: Yes: I reviewed the patient's medical records. MR Comment: -Faroese gentleman with a complaint that his Benjamin catheter is not connected to the leg bag and wants to have it looked at. It appears leg bag was not connected to the Benjamin catheter; this was corrected; observed the patient for a little time to make sure that urine is being produced and collecting in the leg bag - Reyes Inquiry Pt receiving controlled substance: No Vital Signs: 03/03/20 09:15 03/03/20 09:38 03/03/20 10:00 Temperature 98.0 F Temperature Source Oral Pulse Rate [Right Radial] 78 75 70 Respiratory Rate 18 Blood Pressure [Right Arm] 155/92 H 176/86 H 156/83 H Blood Pressure Mean [Right Arm] 113 116 107 Blood Pressure Source [Right Arm] Automatic Cuff Automatic Cuff Blood Pressure Position [Right Arm] Sitting Sitting 02 Sat by Pulse Oximetry 98 98 98 Oxygen Delivery Method Room Air Room Air Room Air General Adult HPI - General Chief complaint: Recheck/Abnormal Lab/Rx Stated complaint: cathedar problems Time Seen by Provider: 03/03/20 09:49 Mode of Arrival: Ambulatory Source of Information: Patient Limitations: No Limitations Description of Symptoms (Recalled from ER Triage Doc. by RN): Pt reports having issues with his catheter, pt states he doesn't think his catheter is draining into the catheter bag. Upon assessment pt catheter leg bag is strapped to his leg but is not connected to the catheter. - History of Present Illness HPI narrative: -Faroese gentleman with a complaint that his Benjamin catheter is not connected to the leg bag and wants to have it looked at Onset (ago): hour(s) Location: genitals Severity: mild Severity scale (1-10): 2 Consistency: constant Relieving factors: none Exacerbating factors: none Associated symptoms: denies other symptoms - Related Data Home Medications Medication Instructions Recorded Confirmed Methocarbamol [Robaxin 500mg Tab*] 500 mg PO QID 11/06/19 Nabumetone 750 mg PO BID 11/06/19 Pantoprazole Sodium [Protonix 40mg 40 mg PO DAILY 11/06/19 tablet] Previous Rx's Medication Instructions Recorded Nabumetone 750 mg PO BIDP PRN #20 tab 10/15/19 Diclofenac Sodium [Voltaren 4 gm TP TID #1 gel..gram. 11/20/19 Arthritis Pain] Cyclobenzaprine HCl 5 mg PO Q8HP PRN #30 tab 12/29/19 [Cyclobenzaprine 5mg Tab] Ketorolac Tromethamine [Toradol 10 mg PO Q6H 5 Days #20 tab 12/29/19 10mg tablet] Ciprofloxacin HCl [Ciprofloxacin 500 mg PO BID #14 tab 02/29/20 500mg Tab] Tamsulosin HCl [Flomax 0.4mg 0.4 mg PO HS #10 cap.er.24h 02/29/20 capsule] Allergies Allergy/AdvReac Type Severity Reaction Status Date / Time No Known Allergies Allergy Verified 12/29/19 09:04 [facility] History - Hepatitis A Screen Drug use history?: No High risk sexual behaviors?: No History of sexually transmitted infection?: No Currently employed?: No Childcare worker?: No Do you have indoor plumbing?: Yes Do you have electricity?: Yes Attestation statement:: This patient has been screened for Hepatitis A risk factors.
[2020-03-03 10:00] VITALS: BP 156/83; PULSE 70; O2SAT 98
--- NOTE | 2020-03-03 10:18 | PC.NURSE ---
MD @ bedside updating patient on condition
[2020-03-03 10:30] VITALS: BP 169/83; PULSE 66; O2SAT 98
[2020-03-03 10:31] VITALS: BP 163/74; PULSE 72; RESP 16; TEMP 36.6; O2SAT 98
== END 2020-03-03 10:34 | disposition home or self-care (01) ==
PROVIDERS: Emergency Provider Emergency Medicine
DX: T83.012A Breakdown (mechanical) of nephrostomy catheter, initial encounter (principal); R33.8 Other retention of urine; I10 Essential (primary) hypertension
CPT/HCPCS: 99282

== ENCOUNTER 2020-04-14 10:02 | Emergency (ER) | payer MEDICARE, OTHER, SELFPAY ==
--- NOTE | 2020-04-14 10:14 | PC.NURSE ---
Pt came in c/o problems with his catheter. Looked at pt chart and seen he had a visit scheduled with Dr. Cabrera today. Called urology office and spoke with isabel who advised pt needed to come to the office at 1pm and not to the ED. Went in and spoke with pt and he advised he thought he was suppose to come to the ED. Asked pt if he needed to be seen in the ED for any complaint and he advised he didn't. I told him he could go ahead and leave and return to urology office at 1pm. Pt agreeable.
[2020-04-14 10:19] VITALS: BP 0/0; PULSE 0; RESP 0; TEMP -17.7; TEMP 0; O2SAT 0
== END 2020-04-14 10:20 | disposition left against medical advice (07) ==
LOC: ER 10:11
PROVIDERS: Emergency Provider Student in an Organized Health Care Education/Training Program
DX: Z53.21 Procedure and treatment not carried out due to patient leaving prior to being seen by health care provider (principal)
CPT/HCPCS: G0463; 99211

== ENCOUNTER → 2020-04-14 15:45 | Outpatient (CLI) | payer MEDICARE, OTHER, SELFPAY | PROVIDERS: Visit Provider Urology | DX: N39.0 Urinary tract infection, site not specified (principal) | CPT/HCPCS: 87086; 87186 ==

== ENCOUNTER 2020-04-20 10:58 | Emergency (ER) | payer MEDICARE, OTHER, SELFPAY ==
[2020-04-20 10:59] VITALS: BP 153/87; PULSE 69; RESP 16; TEMP 36.8; O2SAT 98; BMI 26.6
--- NOTE | 2020-04-20 11:13 | HMH.EDGENADL ---
ED Disposition Clinical Impression: Osteoarthritis Qualifiers: Osteoarthritis location: knee Osteoarthritis type: unspecified Laterality: bilateral Qualified Code(s): M17.0 - Bilateral primary osteoarthritis of knee Disposition: Home, Self-Care Condition on Discharge: Good Referrals: PCP,No [Primary Care Provider] - - Critical Care Critical Care Time: No Attestation: On 04/20/20, the high probability of a clinically significant, sudden or life threatening deterioration of the following system(s) required my full and direct attention, intervention and personal management. The time I documented below is in addition to time spent performing reported procedures but includes the following listed in this critical care notation. Medical Decision Making - Medical Records Medical records reviewed: Yes: I reviewed the patient's medical records. - Reyes Inquiry Pt receiving controlled substance: No Vital Signs: 04/20/20 10:59 Temperature 98.2 F Temperature Source Oral Pulse Rate [Radial] 69 Respiratory Rate 16 Blood Pressure [Right Arm] 153/87 H Blood Pressure Mean [Right Arm] 109 Blood Pressure Position [Right Arm] Sitting 02 Sat by Pulse Oximetry 98 Oxygen Delivery Method Room Air - Lab Data Lab results reviewed: Yes: I reviewed the patient's lab results. Lab Results 04/20/20 11:18: Urine Color Yellow, Urine Appearance Clear, Urine pH 7.0, Ur Specific [place] 1.020, Urine Protein Negative, Urine Glucose (UA) Negative, Urine Ketones Negative, Urine Blood Negative, Urine Nitrate Negative, Urine Bilirubin Negative, Urine Urobilinogen 0.2, Ur Leukocyte Esterase 1+ A, Urine RBC Occasional, Urine WBC 10-20, Ur Squamous Epith Cells Occasional, Urine Bacteria None Orders (Tests/Meds): ED MEDICATIONS Discontinued Medications Generic Name Dose Route Start Last Admin Trade Name Freq PRN Reason Stop Dose Admin Acetaminophen 1,000 mg 04/20/20 11:12 04/20/20 11:22 Acetaminophen 500mg Tab PO 04/20/20 11:13 1,000 mg ONCE ONE Administration ORDERS Category Date Time Status Urine Culture Stat Micro 04/20/20 11:18 Received Medical Decision Narrative: Urinalysis negative for infection. Antibiotics not indicated. Full weightbearing and nontender and asymptomatic care. General Adult HPI - General Stated complaint: leg pain Time Seen by Provider: 04/20/20 11:13 - History of Present Illness HPI narrative: This is an 84-year-old male with a history of osteoarthritis to this emergency department presenting with chronic bilateral knee pain although minimally symptomatic on arrival. He is also requesting a refill for his antibiotics for recent UTI and states that he still has dysuria. No fever, chills, nausea, vomiting, cough, shortness of breath, leg swelling. He has never had a blood clot before. He is ambulatory at his baseline. No trauma. - Related Data Home Medications Medication Instructions Recorded Confirmed Methocarbamol [Robaxin 500mg Tab*] 500 mg PO QID 11/06/19 04/14/20 Nabumetone 750 mg PO BID 11/06/19 04/14/20 Pantoprazole Sodium [Protonix 40mg 40 mg PO DAILY 11/06/19 04/14/20 tablet] Previous Rx's Medication Instructions Recorded Diclofenac Sodium [Voltaren 4 gm TP TID #1 gel..gram. 11/20/19 Arthritis Pain] Cyclobenzaprine HCl 5 mg PO Q8HP PRN #30 tab 12/29/19 [Cyclobenzaprine 5mg Tab] Ketorolac Tromethamine [Toradol 10 mg PO Q6H 5 Days #20 tab 12/29/19 10mg tablet] Tamsulosin HCl [Flomax 0.4mg 0.4 mg PO HS #10 cap.er.24h 02/29/20 capsule] Allergies Allergy/AdvReac Type Severity Reaction Status Date / Time No Known Allergies Allergy Verified 04/14/20 13:10 [facility] History - Hepatitis A Screen Attestation statement:: This patient has been screened for Hepatitis A risk factors. Medical History: Reports:: Hypertension, Urinary Tract Infection Denies:: Cancer, Diabetes Mellitus Type 1, Diabetes Mellitus Type 2, MRSA Other Julio C
[2020-04-20 11:25] LABS: Microscopic, Urine URINE MICROSCOPIC (MICROSCOPIC)
[2020-04-20 11:28] LABS: Appearance,Urine CLEAR (Clear); Bilirubin,Urine Negative (Negative); Blood, Urine Negative (Negative); Color,Urine YELLOW (Yellow); Glucose,Urine (UA) Negative (Negative); Ketones,Urine Negative (Negative); Leukocyte Esterase,Urine 1+ (Negative); Nitrate,Urine Negative (Negative); Protein,Urine Negative (Negative); Urobilinogen,Urine 0.2 EU/dl (0.2)
[2020-04-20 11:34] LABS: RBC,Urine Occasional #/hpf (0-3); Squamous Epithelial Cell,Urine Occasional #/hpf (0-5)
[2020-04-20 11:56] VITALS: BP 132/74; PULSE 78; RESP 16; TEMP 36.6; O2SAT 98
== END 2020-04-20 11:57 | disposition home or self-care (01) ==
PROVIDERS: Emergency Provider Physician Assistant
DX: M17.0 Bilateral primary osteoarthritis of knee (principal); N30.00 Acute cystitis without hematuria; I10 Essential (primary) hypertension; Z79.899 Other long term (current) drug therapy
CPT/HCPCS: 81001; 87086; 99281

== ENCOUNTER 2020-06-14 10:31 | Emergency (ER) | payer MEDICARE, OTHER, SELFPAY ==
[2020-06-14 10:38] VITALS: BP 146/86; PULSE 69; RESP 16; TEMP 37; O2SAT 98; BMI 29.0
--- NOTE | 2020-06-14 10:44 | HMH.EDURI ---
ED Disposition Clinical Impression: Pharyngitis Qualifiers: Pharyngitis/tonsillitis etiology: unspecified etiology Qualified Code(s): J02.9 - Acute pharyngitis, unspecified Disposition: Home, Self-Care Condition on Discharge: Good Instructions: DI for Viral Pharyngitis Additional Instructions: d/c nsaif and call pcp for possible egd - Critical Care Critical Care Time: No Attestation: On , the high probability of a clinically significant, sudden or life threatening deterioration of the following system(s) required my full and direct attention, intervention and personal management. The time I documented below is in addition to time spent performing reported procedures but includes the following listed in this critical care notation. Medical Decision Making - Medical Records Medical records reviewed: Yes: I reviewed the patient's medical records. - Reyes Inquiry Pt receiving controlled substance: No Vital Signs: 06/14/20 10:38 Temperature 98.6 F Temperature Source Oral Pulse Rate [Radial] 69 Respiratory Rate 16 Blood Pressure [Right Arm] 146/86 H Blood Pressure Mean [Right Arm] 106 Blood Pressure Position [Right Arm] Sitting 02 Sat by Pulse Oximetry 98 Oxygen Delivery Method Room Air - Lab Data Lab results reviewed: Yes: I reviewed the patient's lab results. URI/Sore Throat HPI - General Chief Complaint: Recheck/Abnormal Lab/Rx Stated Complaint: sore throat Time Seen by Provider: 06/14/20 10:45 Mode of Arrival: Ambulatory Source of Information: Patient, Medical Record Limitations: No Limitations Description of Symptoms (Recalled from ER Triage Doc. by RN): TO ED PER PVT CAR PT STATES AFTER I EAT IT FOAMS UP AND I COUGH IT BACK UP PT DENIES ANY PAIN IN THROAT, DENIES ANY NAUSEA, VOMITING, ABD PAIN - History of Present Illness HPI Narrative: pt with nonspecific sore throat which has been going on for awhile - no diff with swallowing liquids but some choking on solids at times - no fever or cough MD Complaint: sore throat Onset (ago): week(s) Duration: intermittent Severity: mild Able to tolerate fluids by mouth: Yes Associated symptoms: denies other symptoms Treatments prior to arrival: none - Related Data Home Medications Medication Instructions Recorded Confirmed Methocarbamol [Robaxin 500mg Tab*] 500 mg PO QID 11/06/19 05/08/20 Nabumetone 750 mg PO BID 11/06/19 05/08/20 Pantoprazole Sodium [Protonix 40mg 40 mg PO DAILY 11/06/19 05/08/20 tablet] Previous Rx's Medication Instructions Recorded Diclofenac Sodium [Voltaren 4 gm TP TID #1 gel..gram. 11/20/19 Arthritis Pain] Cyclobenzaprine HCl 5 mg PO Q8HP PRN #30 tab 12/29/19 [Cyclobenzaprine 5mg Tab] Ketorolac Tromethamine [Toradol 10 mg PO Q6H 5 Days #20 tab 12/29/19 10mg tablet] Tamsulosin HCl [Flomax 0.4mg 0.4 mg PO HS #10 cap.er.24h 02/29/20 capsule] Allergies Allergy/AdvReac Type Severity Reaction Status Date / Time No Known Allergies Allergy Verified 05/08/20 10:55 [facility] History - Hepatitis A Screen Drug use history?: No High risk sexual behaviors?: No History of sexually transmitted infection?: No Currently employed?: No Childcare worker?: No Do you have indoor plumbing?: Yes Do you have electricity?: Yes Attestation statement:: This patient has been screened for Hepatitis A risk factors. I have reviewed the patient's past medical history: Yes Medical History: Reports:: Hypertension, Urinary Tract Infection Denies:: Cancer, Diabetes Mellitus Type 1, Diabetes Mellitus Type 2, MRSA Other Surgeries: Yes: No Previous Surgery, Colonoscopy Amputation: No Fractures: No - Social History Smoking Status: Former smoker Tobacco Type: cigarettes Alcohol Intake: current Alcohol Intake Frequency:: holidays/special occasions only Substance Use Type: denies use Occupational Status: other, retired Housing: assisted living facility Household Members: other Family Hx:: Non-contributory ROS Obt
[2020-06-14 10:59] VITALS: BP 146/86; PULSE 69; RESP 16; TEMP 37; O2SAT 98
== END 2020-06-14 11:00 | disposition home or self-care (01) ==
PROVIDERS: Emergency Provider Emergency Medicine
DX: J02.9 Acute pharyngitis, unspecified (principal); I10 Essential (primary) hypertension; K21.9 Gastro-esophageal reflux disease without esophagitis; Z87.891 Personal history of nicotine dependence; Z79.899 Other long term (current) drug therapy
CPT/HCPCS: 99281

== ENCOUNTER 2020-09-05 15:19 | Emergency (ER) | payer MEDICARE, OTHER, SELFPAY ==
[2020-09-05 15:21] VITALS: BP 141/80; PULSE 59; RESP 17; TEMP 36.9; O2SAT 98; BMI 27.4
[2020-09-05 15:28] VITALS: BP 141/80; PULSE 61; O2SAT 96
[2020-09-05 15:31] VITALS: BP 150/77; PULSE 60; O2SAT 95
--- NOTE | 2020-09-05 15:31 | XR_ITS ---
PROCEDURE: XR CHEST PORTABLE CLINICAL HISTORY: soa COMPARISON: CR CXR1 CHEST-PORTABLE from 04/14/2015 FINDINGS: The cardiomediastinal silhouette and pulmonary vascularity are within normal limits. The lungs are clear without infiltrates, suspicious nodules, or pleural effusions. No acute bony abnormalities. IMPRESSION: No acute findings. Dictated by: Alex Cabrales MD 09/05/2020 15:54 Alex Cabrales MD in [place] 09/05/2020 15:54
--- NOTE | 2020-09-05 15:55 | HMH.EDGENADL ---
ED Disposition Clinical Impression: Nausea Disposition: Home, Self-Care Condition on Discharge: Good Instructions: DI for Acute Abdominal Pain Referrals: Provider,Referral, [Primary Care Provider] - - Critical Care Critical Care Time: No Attestation: On 09/05/20, the high probability of a clinically significant, sudden or life threatening deterioration of the following system(s) required my full and direct attention, intervention and personal management. The time I documented below is in addition to time spent performing reported procedures but includes the following listed in this critical care notation. Medical Decision Making - Medical Records Medical records reviewed: Yes: I reviewed the patient's medical records. - Reyes Inquiry Pt receiving controlled substance: No Vital Signs: 09/05/20 15:21 Temperature 98.4 F Temperature Source Oral Pulse Rate [Right] 59 L Respiratory Rate 17 Blood Pressure [Right Arm] 141/80 H Blood Pressure Mean [Right Arm] 100 02 Sat by Pulse Oximetry 98 Oxygen Delivery Method Room Air - Lab Data Lab Results 09/05/20 15:55: WBC 4.5 L, RBC 4.66, Hgb 12.7 L, Hct 38.5 L, MCV 82.6, MCH 27.3, MCHC 33.1, RDW 14.3, Plt Count 190, MPV 7.6, Neut % (Auto) 35.5 L, Lymph % (Auto) 55.7 H, [place] % (Auto) 6.2, Eos % (Auto) 1.6, Baso % (Auto) 1.0, Neut # (Auto) 1.6 L, Lymph # (Auto) 2.5, [place] # (Auto) 0.3, Eos # (Auto) 0.1, Baso # (Auto) 0.0, Total Counted 100, Neutrophils % (Manual) 25 L, Lymphocytes % (Manual) 63 H, Monocytes % (Manual) 11 H, Eosinophils % (Manual) 1, Platelet Estimate Normal, RBC Morphology Normal 09/05/20 15:55: Sodium 140, Potassium 4.1, Chloride 105, Carbon Dioxide 29, Anion Gap 10.1, BUN 15, Creatinine 1.30 H, Estimated Creat Clear 45, Estimated GFR 52 L, Est GFR ( Amer) 63, Glucose 110 H, Calcium 9.5 Result diagrams: 09/05/20 15:55 09/05/20 15:55 Orders (Tests/Meds): ED MEDICATIONS Discontinued Medications Generic Name Dose Route Start Last Admin Trade Name Pita PRN Reason Stop Dose Admin Ondansetron HCl 4 mg 09/05/20 15:31 09/05/20 15:44 Ondansetron 4mg Odt SL 09/05/20 15:32 4 mg ONCE ONE Administration Medical Decision Narrative: 85-year-old male presents with mild nausea. He was in no acute distress nontoxic-appearing with normal vital signs. He does not have an acute abdomen on exam or any tenderness on my exam. Very atypical for myocardial infarction. Atypical for pulmonary embolism or dissection. Labs and imaging obtained for evaluation Shows no evidence of pneumonia and laboratory evaluation was negative recommendations for outpatient management and plan to discharge at this time General Adult HPI - General Chief complaint: Abdominal Pain Stated complaint: possible insect bit mouth Time Seen by Provider: 09/05/20 15:20 Mode of Arrival: Family Vehicle Limitations: No Limitations Description of Symptoms (Recalled from ER Triage Doc. by RN): PT C/O PRODUCTIVE COUGH AND STOMACH ACHE, FOR THE LAST MONTH. PT DENIES ANY PAIN. PT DENIES ANY PAIN. PT DENIES ANY N/V/D. - History of Present Illness HPI narrative: 85-year-old male presents with abdominal aching and nausea for the last few days. He says this is been going on since he got bit by something a year ago. He has no worsening cough or congestion or sore throat or chest pain. No fever or chills. Severity: mild Consistency: intermittent - Related Data Home Medications Medication Instructions Recorded Confirmed Methocarbamol [Robaxin 500mg Tab*] 500 mg PO QID 11/06/19 05/08/20 Nabumetone 750 mg PO BID 11/06/19 05/08/20 Pantoprazole Sodium [Protonix 40mg 40 mg PO DAILY 11/06/19 05/08/20 tablet] Previous Rx's Medication Instructions Recorded Diclofenac Sodium [Voltaren 4 gm TP TID #1 gel..gram. 11/20/19 Arthritis Pain] Cyclobenzaprine HCl 5 mg PO Q8HP PRN #30 tab 12/29/19 [Cyclobenzaprine 5mg Tab] Ketorolac Tromethamine [Toradol 1
[2020-09-05 16:00] VITALS: BP 146/73; BP 148/75; PULSE 51; PULSE 53; RESP 17; TEMP 36.7; O2SAT 95; O2SAT 99
[2020-09-05 16:05] LABS: Eosinophils # 0.1 K/mm3 (0.0-0.4); Eosinophils % 1.6 % (0.1-12.0); Hematocrit 38.5 % (42.0-52.0); Hemoglobin 12.7 g/dL (14.1-18.0); Lymphocytes # 2.5 K/mm3 (0.7-4.5); Lymphocytes % 55.7 % (10-50); Mean Corpuscular HGB Conc 33.1 g/dL (31.8-35.4); Mean Corpuscular Hemoglobin 27.3 pg (27.0-31.2); Mean Corpuscular Volume 82.6 fl (80-94); Mean Platelet Volume 7.6 fl (7.4-10.4); Monocytes # 0.3 K/mm3 (0.1-1.0); Monocytes % 6.2 % (1.7-9.3); Neutrophils # 1.6 K/mm3 (1.8-7.8); Neutrophils % 35.5 % (37.0-80.0); Platelet Count 190 K/mm3 (142-424); Red Blood Count 4.66 M/mm3 (4.60-6.20); Red Cell Distribution Width 14.3 % (11.5-17.5); White Blood Count 4.5 K/mm3 (4.8-10.8)
[2020-09-05 16:08] LABS: MANUAL DIFFERENTIAL MANUAL DIFFERENTIAL (MANUAL DIFF)
[2020-09-05 16:10] LABS: Chloride 105 mmol/L (98-107); Sodium 140 mmol/L (136-145)
[2020-09-05 16:11] LABS: Potassium 4.1 mmoL/L (3.5-5.1)
[2020-09-05 16:13] LABS: Blood Urea Nitrogen 15 mg/dl (9-20); Creatinine Clearance Estimated 45 mL/min (50-200); Estimated Glomerular Filt Rate 52 ml/min (>60); GFR (African American) 63 ML/MIN (>60)
[2020-09-05 16:14] LABS: Anion Gap 10.1 mEq/L (5-15); Calcium 9.5 mg/dl (8.4-10.2); Carbon Dioxide 29 mmol/L (22.0-30.0); Glucose 110 mg/dl (74-100)
[2020-09-05 16:18] LABS: Eosinophils % 1 % (0-3); Lymphocytes % 63 % (10-50); Monocytes % 11 % (2-9); Neutrophils % 25 % (42-76); Platelet Estimate Normal; RBC Morphology Normal; Total Cells Counted 100
[2020-09-05 16:31] VITALS: BP 146/75; PULSE 52; O2SAT 95
== END 2020-09-05 16:39 | disposition home or self-care (01) ==
PROVIDERS: Emergency Provider Emergency Medicine
DX: R11.0 Nausea (principal); I10 Essential (primary) hypertension; Z87.891 Personal history of nicotine dependence; K21.9 Gastro-esophageal reflux disease without esophagitis
CPT/HCPCS: 71045; 80048; 85007; 85025; 99282

== ENCOUNTER 2020-09-10 10:07 | Emergency (ER) | payer MEDICARE, OTHER, SELFPAY ==
[2020-09-10 10:19] VITALS: BP 110/90; PULSE 58; RESP 16; TEMP 36.5; O2SAT 97; BMI 28.7
--- NOTE | 2020-09-10 10:33 | HMH.EDUTC ---
[facility] [place] Disposition Clinical Impression: Otitis media Qualifiers: Otitis media type: suppurative Chronicity: acute Laterality: bilateral Recurrence: non-recurrent Spontaneous tympanic membrane rupture: without spontaneous rupture Qualified Code(s): H66.003 - Acute suppurative otitis media without spontaneous rupture of ear drum, bilateral Disposition: Home, Self-Care Condition on Discharge: Good Instructions: Middle Ear Infection Additional Instructions: Drink plenty of fluids. Take tylenol or ibuprofen for pain or fever. Take the medications as directed. Follow up with your regular doctor. GO TO THE ER FOR ANY WORSENING SYMPTOMS Prescriptions: Azithromycin [Z-Jj 250mg Tab*] 250 mg PO UD DOSE PK #6 tab Transmission Status: Received by [facility] Cetirizine HCl [Zyrtec] 10 mg PO DAILY 30 Days #30 cap Transmission Status: Received by [facility] Referrals: Provider,Referral, [Primary Care Provider] - Time of Disposition: 10:39 Medical Decision Making - Medical Records Medical records reviewed: No: I reviewed the patient's medical records. - Reyes Inquiry Pt receiving controlled substance: No Vital Signs: 09/10/20 10:19 09/10/20 10:40 Temperature 97.7 F 98 F Temperature Source Oral Pulse Rate 79 Pulse Rate [Right Radial] 58 L Respiratory Rate 16 17 Blood Pressure 109/81 L Blood Pressure [Right Arm] 110/90 Blood Pressure Mean [Right Arm] 96 02 Sat by Pulse Oximetry 97 [facility] [place] HPI - General Stated complaint: blurry vision both eyes Time Seen by Provider: 09/10/20 10:33 Mode of Arrival: Ambulatory Source of Information: Patient Description of Symptoms (Recalled from Triage Doc. by RN): Feels like ears are full, pressure. He also states his eyes are rolling around and backwards HEENT Symptoms (Recalled from RN notes): No Resp Symptoms (Recalled from RN notes): No Skin Symptoms (Recalled from RN notes): No MS Symptoms (Recalled from RN notes): No Functional Status (Recalled from RN notes): na - History of Present Illness Provider Complaint: He states that he has been having ear pressure and allergy symptoms. He thinks that he may need something for his symptoms. He is also having some dizziness at times. - Related Data Home Medications Medication Instructions Recorded Confirmed Methocarbamol [Robaxin 500mg Tab*] 500 mg PO QID 11/06/19 05/08/20 Nabumetone 750 mg PO BID 11/06/19 05/08/20 Pantoprazole Sodium [Protonix 40mg 40 mg PO DAILY 11/06/19 05/08/20 tablet] Previous Rx's Medication Instructions Recorded Diclofenac Sodium [Voltaren 4 gm TP TID #1 gel..gram. 11/20/19 Arthritis Pain] Cyclobenzaprine HCl 5 mg PO Q8HP PRN #30 tab 12/29/19 [Cyclobenzaprine 5mg Tab] Ketorolac Tromethamine [Toradol 10 mg PO Q6H 5 Days #20 tab 12/29/19 10mg tablet] Tamsulosin HCl [Flomax 0.4mg 0.4 mg PO HS #10 cap.er.24h 02/29/20 capsule] Azithromycin [Z-Jj 250mg Tab*] 250 mg PO UD DOSE PK #6 tab 09/10/20 Cetirizine HCl [Zyrtec] 10 mg PO DAILY 30 Days #30 cap 09/10/20 Allergies Allergy/AdvReac Type Severity Reaction Status Date / Time No Known Allergies Allergy Verified 09/10/20 10:17 - Worker's Comp Is this a Worker's Comp case?: No [facility] History - Hepatitis A Screen Drug use history?: No High risk sexual behaviors?: No History of sexually transmitted infection?: No Currently employed?: No Childcare worker?: No Do you have indoor plumbing?: Yes Do you have electricity?: Yes Attestation statement:: This patient has been screened for Hepatitis A risk factors. I have reviewed the patient's past medical history: Yes Medical History: Reports:: Hypertension, Urinary Tract Infection Denies:: Cancer, Diabetes Mellitus Type 1, Diabetes Mellitus Type 2, MRSA Other Surgeries: Yes: No Previous Surgery, Colonoscopy Amputation: No Fractures: No - Social History Smoking Status: Former smoker Tobacco Type: cigarettes Alcohol Intake: curre
[2020-09-10 10:40] VITALS: BP 109/81; PULSE 79; RESP 17; TEMP 36.6
== END 2020-09-10 10:43 | disposition home or self-care (01) ==
PROVIDERS: Emergency Provider Nurse Practitioner Family
DX: H66.003 Acute suppurative otitis media without spontaneous rupture of ear drum, bilateral (principal); I10 Essential (primary) hypertension; Z87.891 Personal history of nicotine dependence
CPT/HCPCS: G0463; 99202

== ENCOUNTER 2020-09-16 10:03 | Emergency (ER) | payer MEDICARE, OTHER, SELFPAY ==
[2020-09-16 10:43] VITALS: BP 119/71; PULSE 74; RESP 14; TEMP 36.6; O2SAT 98; BMI 32.1
--- NOTE | 2020-09-16 10:43 | HMH.EDUTC ---
[facility] [place] Impression: Right knee pain Qualifiers: Chronicity: acute Qualified Code(s): M25.561 - Pain in right knee Osteoarthritis Qualifiers: Osteoarthritis location: knee Osteoarthritis type: unspecified Laterality: bilateral Qualified Code(s): M17.0 - Bilateral primary osteoarthritis of knee Allergic conjunctivitis Qualifiers: Laterality: bilateral Qualified Code(s): H10.13 - Acute atopic conjunctivitis, bilateral Disposition: Home, Self-Care Condition on Discharge: Good Instructions: Allergies, Respiratory (Alternative Therapy), DI for Knee Pain Additional Instructions: Follow up with your primary care doctor. Use the eye drops as directed. GO TO THE ER FOR ANY WORSENING SYMPTOMS OR CONCERNS Prescriptions: Ketotifen Fumarate [Alaway] 1 drp EYE-BOTH BID #1 bottle Transmission Status: Received by [facility] Referrals: Provider,Referral, [Primary Care Provider] - Time of Disposition: 10:58 Medical Decision Making - Medical Records Medical records reviewed: No: I reviewed the patient's medical records. - Reyes Inquiry Pt receiving controlled substance: No Vital Signs: 09/16/20 10:43 09/16/20 11:15 Temperature 97.8 F 98 F Temperature Source Tympanic Pulse Rate 76 Pulse Rate [Right] 74 Respiratory Rate 14 16 Blood Pressure 121/73 Blood Pressure [Right Arm] 119/71 Blood Pressure Mean [Right Arm] 87 Blood Pressure Source [Right Arm] Automatic Cuff Blood Pressure Position [Right Arm] Sitting 02 Sat by Pulse Oximetry 98 [facility] [place] - General Stated complaint: check up on prev visit Time Seen by Provider: 09/16/20 10:43 - History of Present Illness Provider Complaint: He is back to have his eyes rechecked and he has been having right knee pain at times. He denies any recent knee injury or falls. He states that he thinks that he has arthritis in the knee, but he would like to have it checked out. He goes to the [facility] for his primary medical care. He denies that he has recently saw an orthopedic doctor for his knee. He states that he has continued to have bilateral eye watering and burning at times. He denies any vision changes. He has been taking the zyrtec regularly that was prescribed here on his last visit. - Related Data Home Medications Medication Instructions Recorded Confirmed Methocarbamol [Robaxin 500mg Tab*] 500 mg PO QID 11/06/19 05/08/20 Nabumetone 750 mg PO BID 11/06/19 05/08/20 Pantoprazole Sodium [Protonix 40mg 40 mg PO DAILY 11/06/19 05/08/20 tablet] Previous Rx's Medication Instructions Recorded Diclofenac Sodium [Voltaren 4 gm TP TID #1 gel..gram. 11/20/19 Arthritis Pain] Cyclobenzaprine HCl 5 mg PO Q8HP PRN #30 tab 12/29/19 [Cyclobenzaprine 5mg Tab] Ketorolac Tromethamine [Toradol 10 mg PO Q6H 5 Days #20 tab 12/29/19 10mg tablet] Tamsulosin HCl [Flomax 0.4mg 0.4 mg PO HS #10 cap.er.24h 02/29/20 capsule] Azithromycin [Z-Jj 250mg Tab*] 250 mg PO UD DOSE PK #6 tab 09/10/20 Cetirizine HCl [Zyrtec] 10 mg PO DAILY 30 Days #30 cap 09/10/20 Ketotifen Fumarate [Alaway] 1 drp EYE-BOTH BID #1 bottle 09/16/20 Allergies Allergy/AdvReac Type Severity Reaction Status Date / Time No Known Allergies Allergy Verified 09/10/20 10:17 [facility] History - Hepatitis A Screen Attestation statement:: This patient has been screened for Hepatitis A risk factors. I have reviewed the patient's past medical history: Yes Medical History: Reports:: Hypertension, Urinary Tract Infection Denies:: Cancer, Diabetes Mellitus Type 1, Diabetes Mellitus Type 2, MRSA Other Surgeries: Yes: No Previous Surgery, Colonoscopy Amputation: No Fractures: No - Social History Smoking Status: Former smoker Tobacco Type: cigarettes Alcohol Intake: never Alcohol Intake Frequency:: holidays/special occasions only Substance Use Type: denies use Occupational Status: disabled Housing: assisted living facility Household Members: other Fa
[2020-09-16 11:15] VITALS: BP 121/73; PULSE 76; RESP 16; TEMP 36.6
== END 2020-09-16 11:17 | disposition home or self-care (01) ==
PROVIDERS: Emergency Provider Nurse Practitioner Family
DX: M17.0 Bilateral primary osteoarthritis of knee (principal); H10.13 Acute atopic conjunctivitis, bilateral; I10 Essential (primary) hypertension; Z79.899 Other long term (current) drug therapy
CPT/HCPCS: G0463; 99202

== ENCOUNTER 2020-10-09 09:34 | Emergency (ER) | payer MEDICARE, OTHER, SELFPAY ==
--- NOTE | 2020-10-09 09:47 | HMH.EDUTC ---
[facility] [place] Dis[place] Clinical Impression: Bronchitis Disposition: Home, Self-Care Condition on Discharge: Good Instructions: DI for Acute Bronchitis Additional Instructions: Drink plenty of fluids. Take tylenol for pain or fever. Return if you begin to have difficulty breathing. Follow up with your regular doctor. GO TO THE ER FOR ANY WORSENING SYMPTOMS Prescriptions: Azithromycin [Z-Jj 250mg Tab*] 250 mg PO UD DOSE PK #6 tab Transmission Status: Received by [facility] Referrals: Noris Herrera [Primary Care Provider] - Time of Disposition: 10:47 Medical Decision Making - Medical Records Medical records reviewed: No: I reviewed the patient's medical records. - Reyes Inquiry Pt receiving controlled substance: No Vital Signs: 10/09/20 09:54 10/09/20 11:01 Temperature 98.3 F 98.3 F Temperature Source Oral Pulse Rate 60 Pulse Rate [Right] 54 L Respiratory Rate 16 16 Blood Pressure 139/95 H Blood Pressure [Right Arm] 145/92 H Blood Pressure Mean [Right Arm] 109 02 Sat by Pulse Oximetry 98 - Lab Data Lab Results 10/09/20 10:03: Urine Color Yellow, Urine Appearance Clear, Urine pH 6.0, Ur Specific Peetz 1.020, Urine Protein Negative, Urine Glucose (UA) Negative, Urine Ketones Negative, Urine Blood Negative, Urine Nitrate Negative, Urine Bilirubin Negative, Urine Urobilinogen 0.2, Ur Leukocyte Esterase 1+ A - Radiology Data #1 Image(s): Chest Image Reviewed: Yes I reviewed the patient's radiology image, Yes I have reviewed radiologist's interpretation Preliminary Findings: Normal/NAD, No Infiltrates Seen PROCEDURE: XR CHEST 2V CLINICAL HISTORY: cough, short of breath COMPARISON: CR CXR1 CHEST-PORTABLE from 04/14/2015 CR XR CHEST PORTABLE from 09/05/2020 FINDINGS: The cardiomediastinal silhouette and pulmonary vascularity are within normal limits. The lungs are clear without infiltrates, suspicious nodules, or pleural effusions. Degenerative changes thoracic spine IMPRESSION: No acute findings. Dictated by: Alex Cabrales MD 10/09/2020 10:56 Alex Cabrales MD in [place] 10/09/2020 10:56 [facility] [place] HPI - General Stated complaint: muscle pain Time Seen by Provider: 10/09/20 09:47 - History of Present Illness Provider Complaint: He reports that he has had a cough for the past 3 days. He also c/o of mild bilateral leg pain that he calls muscle pain. He denies any chest pain. - Related Data Home Medications Medication Instructions Recorded Confirmed Methocarbamol [Robaxin 500mg Tab*] 500 mg PO QID 11/06/19 05/08/20 Nabumetone 750 mg PO BID 11/06/19 05/08/20 Pantoprazole Sodium [Protonix 40mg 40 mg PO DAILY 11/06/19 05/08/20 tablet] Previous Rx's Medication Instructions Recorded Diclofenac Sodium [Voltaren 4 gm TP TID #1 gel..gram. 11/20/19 Arthritis Pain] Cyclobenzaprine HCl 5 mg PO Q8HP PRN #30 tab 12/29/19 [Cyclobenzaprine 5mg Tab] Ketorolac Tromethamine [Toradol 10 mg PO Q6H 5 Days #20 tab 12/29/19 10mg tablet] Tamsulosin HCl [Flomax 0.4mg 0.4 mg PO HS #10 cap.er.24h 02/29/20 capsule] Azithromycin [Z-Jj 250mg Tab*] 250 mg PO UD DOSE PK #6 tab 09/10/20 Cetirizine HCl [Zyrtec] 10 mg PO DAILY 30 Days #30 cap 09/10/20 Ketotifen Fumarate [Alaway] 1 drp EYE-BOTH BID #1 bottle 09/16/20 Azithromycin [Z-Jj 250mg Tab*] 250 mg PO UD DOSE PK #6 tab 10/09/20 Allergies Allergy/AdvReac Type Severity Reaction Status Date / Time No Known Allergies Allergy Verified 09/10/20 10:17 [facility] History - Hepatitis A Screen Attestation statement:: This patient has been screened for Hepatitis A risk factors. I have reviewed the patient's past medical history: Yes Medical History: Reports:: Hypertension, Urinary Tract Infection Denies:: Cancer, Diabetes Mellitus Type 1, Diabetes Mellitus Type 2, MRSA Other Surgeries: Yes: No Previous Surgery, Colonoscopy Amputation: No Fractures: No - Social Histor
[2020-10-09 09:54] VITALS: BP 145/92; PULSE 54; RESP 16; TEMP 36.8; O2SAT 98; BMI 28.3
--- NOTE | 2020-10-09 10:10 | ECG_ITS ---
APPROVED REPORT Exam: Resting ECG HR:71 bpm ECG Measurements Heart Rate 71 AXES MS 178 P 52 QRSd 88 QRS 16 QT 400 T 71 QTc 434 Conclusion Sinus rhythm with premature atrial complexes Nonspecific T wave abnormality Abnormal ECG Electronically signed by : Jonas Noel, 10/09/2020 18:02:42
--- NOTE | 2020-10-09 10:21 | XR_ITS ---
PROCEDURE: XR CHEST 2V CLINICAL HISTORY: cough, short of breath COMPARISON: CR CXR1 CHEST-PORTABLE from 04/14/2015 CR XR CHEST PORTABLE from 09/05/2020 FINDINGS: The cardiomediastinal silhouette and pulmonary vascularity are within normal limits. The lungs are clear without infiltrates, suspicious nodules, or pleural effusions. Degenerative changes thoracic spine IMPRESSION: No acute findings. Dictated by: Alex Cabrales MD 10/09/2020 10:56 Alex Cabrales MD in [place] 10/09/2020 10:56
[2020-10-09 10:23] LABS: Apearance,Urine Clear (Clear); Color,Urine Yellow (Yellow); Glucose,Urine (UA) Negative (Negative); Ketones,Urine Negative (Negative); Protein,Urine Negative (Negative)
[2020-10-09 10:24] LABS: Bilirubin,Urine Negative (Negative); Blood, Urine Negative (Negative); UTC Leukocyte Esterase,Urine 1+ (Negative); UTC Nitrate,Urine Negative (Negative); Urobilinogen,Urine 0.2 EU/dl (0.2)
[2020-10-09 11:01] VITALS: BP 139/95; PULSE 60; RESP 16; TEMP 36.8
== END 2020-10-09 11:01 | disposition home or self-care (01) ==
PROVIDERS: Emergency Provider Nurse Practitioner Family; PCP Nurse Practitioner Family
DX: J20.9 Acute bronchitis, unspecified (principal); I10 Essential (primary) hypertension; Z87.891 Personal history of nicotine dependence; Z79.899 Other long term (current) drug therapy
CPT/HCPCS: 71046; 81003; 93005; 93041; 99202; G0463

== ENCOUNTER 2020-10-14 10:03 | Emergency (ER) | payer MEDICARE, OTHER, SELFPAY ==
[2020-10-14 10:10] VITALS: BP 111/65; PULSE 63; RESP 18; TEMP 36.7; O2SAT 100; BMI 29.2
--- NOTE | 2020-10-14 10:21 | XR_ITS ---
PROCEDURE: XR KNEE RT 3V CLINICAL INDICATION: pain COMPARISON: CR [id number] KNEE-4 OR 5 VIEWS-RT from 12/11/2014 FINDINGS: No fracture or dislocation. No lytic or blastic change. There is normal mineralization. Minimal osteoarthritic change medial compartment and patellofemoral joint. Chondrocalcinosis of the lateral compartment. Small enthesophyte at the upper patella Other findings:None. IMPRESSION: Mild osteoarthritic change with chondrocalcinosis Dictated by: Alex Cabrales MD 10/14/2020 10:45 Alex Cabrales MD in [place] 10/14/2020 10:45
--- NOTE | 2020-10-14 10:21 | XR_ITS ---
PROCEDURE: XR KNEE LT 3V CLINICAL INDICATION: pain COMPARISON: CR [id number] KNEE-4 OR 5 VIEWS-RT from 12/11/2014 CR XR KNEE RT 3V from 10/14/2020 FINDINGS: No fracture or dislocation. No lytic or blastic change. There is normal mineralization. The joint spaces are well-preserved. No significant degenerative/arthritic changes. No erosive changes evident. Other findings:Chondrocalcinosis is present involving the lateral compartment. Vascular calcification noted. Small enthesophyte at the upper patella at the quadriceps tendon insertion IMPRESSION: Chondrocalcinosis lateral compartment, no acute finding Dictated by: Alex Cabrales MD 10/14/2020 10:44 Alex Cabrales MD in [place] 10/14/2020 10:44
[2020-10-14 11:06] VITALS: BP 111/65; PULSE 63; RESP 18; TEMP 36.7; O2SAT 100
--- NOTE | 2020-10-14 11:28 | HMH.EDUTC ---
[facility] [place]ression: Osteoarthritis of knees, bilateral Qualifiers: Osteoarthritis type: unspecified Qualified Code(s): M17.0 - Bilateral primary osteoarthritis of knee Disposition: Home, Self-Care Condition on Discharge: Good Instructions: Osteoarthritis, DI for Osteoarthritis Additional Instructions: You need to be evaluated by an orthopedic doctor. I put in a referral to Dr. Alarcon at this hospital, or you could get your primary care physician at the [facility] to refer you to one there. Rest and stay off your knees as much as possible for the next few days. Take the medication as prescribed. GO TO THE ER FOR ANY WORSENING SYMPTOMS OR CONCERNS Prescriptions: Naproxen [Naproxen 375mg Tab] 375 mg PO BIDP PRN #20 tab PRN Reason: Moderate Pain Transmission Status: Received by [facility] Referrals: Provider,MD Tucker [Primary Care Provider] - Abdoul Alarcon MD [Staff Physician] - Time of Disposition: 11:34 Medical Decision Making - Medical Records Medical records reviewed: No: I reviewed the patient's medical records. - Reyes Inquiry Pt receiving controlled substance: No Vital Signs: 10/14/20 10:10 10/14/20 11:06 Temperature 98.0 F 98.0 F Temperature Source Temporal Artery Scan Pulse Rate 63 Pulse Rate [Right Brachial] 63 Respiratory Rate 18 18 Blood Pressure 111/65 Blood Pressure [Right Arm] 111/65 Blood Pressure Mean [Right Arm] 80 Blood Pressure Source [Right Arm] Automatic Cuff Blood Pressure Position [Right Arm] Sitting 02 Sat by Pulse Oximetry 100 Oxygen Delivery Method Room Air - Radiology Data #1 Image(s): Knee Image Reviewed: Yes I reviewed the patient's radiology image, Yes I have reviewed radiologist's interpretation Preliminary Findings: No Fracture Seen PROCEDURE: XR KNEE RT 3V CLINICAL INDICATION: pain COMPARISON: CR [id number] KNEE-4 OR 5 VIEWS-RT from 12/11/2014 FINDINGS: No fracture or dislocation. No lytic or blastic change. There is normal mineralization. Minimal osteoarthritic change medial compartment and patellofemoral joint. Chondrocalcinosis of the lateral compartment. Small enthesophyte at the upper patella Other findings:None. IMPRESSION: Mild osteoarthritic change with chondrocalcinosis Dictated by: Alex Cabrales MD 10/14/2020 10:45 Alex Cabrales MD in [place] 10/14/2020 10:45 #2 Image(s): Knee Image Reviewed: Yes I reviewed the patient's radiology image, Yes I have reviewed radiologist's interpretation Preliminary Findings: Abnormal, No Fracture Seen PROCEDURE: XR KNEE LT 3V CLINICAL INDICATION: pain COMPARISON: CR [id number] KNEE-4 OR 5 VIEWS-RT from 12/11/2014 CR XR KNEE RT 3V from 10/14/2020 FINDINGS: No fracture or dislocation. No lytic or blastic change. There is normal mineralization. The joint spaces are well-preserved. No significant degenerative/arthritic changes. No erosive changes evident. Other findings:Chondrocalcinosis is present involving the lateral compartment. Vascular calcification noted. Small enthesophyte at the upper patella at the quadriceps tendon insertion IMPRESSION: Chondrocalcinosis lateral compartment, no acute finding Dictated by: Alex Cabrales MD 10/14/2020 10:44 Alex Cabrales MD in [place] 10/14/2020 10:44 [facility] [place] - General Stated complaint: bilateral knee pain Time Seen by Provider: 10/14/20 10:20 Mode of Arrival: Ambulatory Source of Information: Patient Limitations: No Limitations Description of Symptoms (Recalled from Triage Doc. by RN): PATIENT C/O CHRONIC BILATERAL KNEE PAIN HEENT Symptoms (Recalled from RN notes): No Resp Symptoms (Recalled from RN notes): No Skin Symptoms (Recalled from RN notes): No MS Symptoms (Recalled from RN notes): Yes Functional Status (Recalled from RN notes): WNL - History of Present Illness Provider Complaint: He continues to c/o bilateral knee pain. He has not followed up with orthopedics either h
== END 2020-10-14 11:46 | disposition home or self-care (01) ==
PROVIDERS: Emergency Provider Nurse Practitioner Family
DX: M17.0 Bilateral primary osteoarthritis of knee (principal); I10 Essential (primary) hypertension; Z87.891 Personal history of nicotine dependence
CPT/HCPCS: G0463; 73562; 99202

== ENCOUNTER 2020-11-04 10:23 | Emergency (ER) | payer MEDICARE, OTHER, SELFPAY ==
[2020-11-04 10:25] VITALS: BP 146/78; PULSE 62; RESP 21; TEMP 36.7; O2SAT 100; BMI 27.6
--- NOTE | 2020-11-04 10:41 | HMH.EDUTC ---
[facility] [place] Clinical Impression: Osteoarthritis of knees, bilateral Qualifiers: Osteoarthritis type: unspecified Qualified Code(s): M17.0 - Bilateral primary osteoarthritis of knee Disposition: Home, Self-Care Condition on Discharge: Good Instructions: Osteoarthritis, DI for Osteoarthritis Additional Instructions: Take medication as prescribed Make sure [facility] that you can take daily to help with your arthritic pain Return if needed Straight to ER if any life threatening symptoms Prescriptions: Naproxen [Naproxen 375mg Tab] 375 mg PO BID PRN #20 tab PRN Reason: Moderate Pain Transmission Status: [facility] Referrals: Provider,Referral, [Primary Care Provider] - As needed Time of Disposition: 10:57 Medical Decision Making - Reyes Inquiry Pt receiving controlled substance: No Reyes was queried for this patient: No Vital Signs: 11/04/20 10:25 Temperature 98.1 F Temperature Source Oral Pulse Rate [Right Brachial] 62 Respiratory Rate 21 Blood Pressure [Right Arm] 146/78 H Blood Pressure Mean [Right Arm] 100 Blood Pressure Source [Right Arm] Automatic Cuff Blood Pressure Position [Right Arm] Sitting 02 Sat by Pulse Oximetry 100 Oxygen Delivery Method Room Air Medical Decision Narrative: Patient states that he took naproxen before without reactions or complications with his other medications [facility] [place] HPI - General Stated complaint: both leg pain Time Seen by Provider: 11/04/20 10:48 Mode of Arrival: Ambulatory Source of Information: Patient Limitations: No Limitations Description of Symptoms (Recalled from Triage Doc. by RN): PATIENT C/O CHRONIC PAIN TO BILATERAL KNEES/LEGS HEENT Symptoms (Recalled from RN notes): No Resp Symptoms (Recalled from RN notes): No Skin Symptoms (Recalled from RN notes): No MS Symptoms (Recalled from RN notes): Yes Functional Status (Recalled from RN notes): WNL - History of Present Illness Provider Complaint: Patient states that he has arthritis and has chronic pain in both knees States that he was given some medication last time he was here and it helped but he is out of it now States that and pain has come back States that [facility] but has[facility] been able to get there so he came back here to see if he could get some more of that medication - Related Data Home Medications Medication Instructions Recorded Confirmed Methocarbamol [Robaxin 500mg Tab*] 500 mg PO QID 11/06/19 05/08/20 Nabumetone 750 mg PO BID 11/06/19 05/08/20 Pantoprazole Sodium [Protonix 40mg 40 mg PO DAILY 11/06/19 05/08/20 tablet] Previous Rx's Medication Instructions Recorded Diclofenac Sodium [Voltaren 4 gm TP TID #1 gel..gram. 11/20/19 Arthritis Pain] Cyclobenzaprine HCl 5 mg PO Q8HP PRN #30 tab 12/29/19 [Cyclobenzaprine 5mg Tab] Ketorolac Tromethamine [Toradol 10 mg PO Q6H 5 Days #20 tab 12/29/19 10mg tablet] Tamsulosin HCl [Flomax 0.4mg 0.4 mg PO HS #10 cap.er.24h 02/29/20 capsule] Azithromycin [Z-Jj 250mg Tab*] 250 mg PO UD DOSE PK #6 tab 09/10/20 Cetirizine HCl [Zyrtec] 10 mg PO DAILY 30 Days #30 cap 09/10/20 Ketotifen Fumarate [Alaway] 1 drp EYE-BOTH BID #1 bottle 09/16/20 Azithromycin [Z-Jj 250mg Tab*] 250 mg PO UD DOSE PK #6 tab 10/09/20 Naproxen [Naproxen 375mg Tab] 375 mg PO BIDP PRN #20 tab 10/14/20 Naproxen [Naproxen 375mg Tab] 375 mg PO BID PRN #20 tab 11/04/20 Allergies Allergy/AdvReac Type Severity Reaction Status Date / Time No Known Allergies Allergy Verified 09/10/20 10:17 - Worker's Comp Is this a Worker's Comp case?: No [facility] History - Hepatitis A Screen Drug use history?: No High risk sexual behaviors?: No History of sexually transmitted infection?: No Currently employed?: No Childcare worker?: No Do you have indoor plumbing?: Yes Do you have electricity?: Yes Attestation statement:: This patient has been screened for Hepatitis A risk factors. I have revnadira
[2020-11-04 11:12] VITALS: BP 146/78; PULSE 62; RESP 21; TEMP 36.7; O2SAT 100
== END 2020-11-04 11:15 | disposition home or self-care (01) ==
PROVIDERS: Emergency Provider Nurse Practitioner
DX: M17.0 Bilateral primary osteoarthritis of knee (principal); I10 Essential (primary) hypertension
CPT/HCPCS: G0463; 99202

== ENCOUNTER 2020-12-01 08:44 | Emergency (ER) | payer MEDICARE, OTHER, SELFPAY ==
[2020-12-01 08:46] VITALS: BP 164/93; PULSE 61; RESP 18; TEMP 36.4; O2SAT 95; BMI 27.1
--- NOTE | 2020-12-01 09:15 | HMH.EDGENADL ---
ED Disposition Clinical Impression: Hypertension Qualifiers: Hypertension type: primary hypertension Qualified Code(s): I10 - Essential (primary) hypertension Disposition: Home, Self-Care Condition on Discharge: Good Instructions: Essential Hypertension Referrals: Provider,Referral, [Primary Care Provider] - - Critical Care Critical Care Time: No Attestation: On 12/01/20, the high probability of a clinically significant, sudden or life threatening deterioration of the following system(s) required my full and direct attention, intervention and personal management. The time I documented below is in addition to time spent performing reported procedures but includes the following listed in this critical care notation. Medical Decision Making - Medical Records Medical records reviewed: Yes: I reviewed the patient's medical records. - Reyes Inquiry Pt receiving controlled substance: No Vital Signs: 12/01/20 08:46 Temperature 97.6 F Temperature Source Oral Pulse Rate [Left Radial] 61 Respiratory Rate 18 Blood Pressure [Right Arm] 164/93 H Blood Pressure Mean [Right Arm] 116 Blood Pressure Source [Right Arm] Automatic Cuff Blood Pressure Position [Right Arm] Sitting 02 Sat by Pulse Oximetry 95 Oxygen Delivery Method Room Air Medical Decision Narrative: 85-year-old male presented to the emergency department for medical evaluation. He took an extra dose of his blood pressure medication last night. Patient is currently mildly hypertensive. He is asymptomatic. No other symptoms. I do not believe the patient requires any further work-up. He will resume his normal medication regimen. Patient is to follow-up with his PCP in 48 hours. Given strict return precautions. Verbalized understanding. General Adult HPI - General Chief complaint: Recheck/Abnormal Lab/Rx Stated complaint: feelings in legs off, smay have taken medicines ea Time Seen by Provider: 12/01/20 08:50 Mode of Arrival: Ambulatory Limitations: No Limitations Description of Symptoms (Recalled from ER Triage Doc. by RN): pt states that he took an extra dose of his blood pressure medicine (benazepril 10mg, diltiazem 360mg) last night and he was worried about his bp and if he needed to take a dose today since he takes it once a day. Denies any symptoms at this time. - History of Present Illness HPI narrative: This is a 85-year-old male presented to the emergency department for medical screening examination. Patient states that he normally takes his blood pressure medication once a day. However he took a long nap yesterday and accidentally took an extra dose of medication at night. He is concerned about this. The patient is not having any symptoms. He denies any headache or change in vision. No focal weakness. No chest pain or shortness of breath. No abdominal pain or vomiting. - Related Data Home Medications Medication Instructions Recorded Confirmed Methocarbamol [Robaxin 500mg Tab*] 500 mg PO QID 11/06/19 11/20/20 Nabumetone 750 mg PO BID 11/06/19 11/20/20 Pantoprazole Sodium [Protonix 40mg 40 mg PO DAILY 11/06/19 11/20/20 tablet] Previous Rx's Medication Instructions Recorded Diclofenac Sodium [Voltaren 4 gm TP TID #1 gel..gram. 11/20/19 Arthritis Pain] Cyclobenzaprine HCl 5 mg PO Q8HP PRN #30 tab 12/29/19 [Cyclobenzaprine 5mg Tab] Ketorolac Tromethamine [Toradol 10 mg PO Q6H 5 Days #20 tab 12/29/19 10mg tablet] Tamsulosin HCl [Flomax 0.4mg 0.4 mg PO HS #10 cap.er.24h 02/29/20 capsule] Azithromycin [Z-Jj 250mg Tab*] 250 mg PO UD DOSE PK #6 tab 09/10/20 Cetirizine HCl [Zyrtec] 10 mg PO DAILY 30 Days #30 cap 09/10/20 Ketotifen Fumarate [Alaway] 1 drp EYE-BOTH BID #1 bottle 09/16/20 Azithromycin [Z-Jj 250mg Tab*] 250 mg PO UD DOSE PK #6 tab 10/09/20 Naproxen [Naproxen 375mg Tab] 375 mg PO BIDP PRN #20 tab 10/14/20 Naproxen [Naproxen 375mg Tab] 375 mg PO BID PRN #20 tab 11/04/20 Allergies Allergy/AdvR
[2020-12-01 09:23] VITALS: BP 187/94; PULSE 60; RESP 16; TEMP 36.4; O2SAT 95
== END 2020-12-01 09:25 | disposition home or self-care (01) ==
PROVIDERS: Emergency Provider Emergency Medicine
DX: I16.0 Hypertensive urgency (principal)
CPT/HCPCS: 99281

== ENCOUNTER 2020-12-19 14:49 | Emergency (ER) | payer MEDICARE, OTHER, SELFPAY ==
[2020-12-19 14:49] VITALS: BP 133/97; PULSE 63; RESP 20; TEMP 36.4; O2SAT 96; BMI 28.3
--- NOTE | 2020-12-19 16:25 | XR_ITS ---
PROCEDURE INFORMATION: Exam: XR Chest Exam date and time: 12/19/2020 4:25 PM Age: 85 years old Clinical indication: Cough TECHNIQUE: Imaging protocol: XR of the chest. Views: 2 views. COMPARISON: CR XR CHEST 2V 10/09/2020 10:21 AM FINDINGS: Lungs: No focal consolidation. Linear opacities scattered throughout both lungs have not significantly changed when compared to the prior examination. Pleural spaces: No evidence of pleural effusion or pneumothorax. Heart/Mediastinum: The cardiomediastinal silhouette is stable. Bones/joints: There are multilevel degenerative changes of the spine. No evidence of acute displaced fracture. IMPRESSION: No evidence of acute abnormality.
--- NOTE | 2020-12-19 17:01 | HMH.EDUTC ---
[facility] [place] Clinical Impression: Bronchitis Disposition: Home, Self-Care Condition on Discharge: Good Instructions: DI for Acute Bronchitis, Preventing the Spread of Coronavirus Discharge Instructions Additional Instructions: Drink plenty of fluids. Take tylenol or ibuprofen for pain or fever. Take the medications as directed. Follow up with your regular doctor. GO TO THE ER FOR ANY WORSENING SYMPTOMS Quarantine until you know the results of your covid-19 test. If it is positive, the health department should call you and give you further instructions about your length of Quarantine and other things. Notify your school or workplace of your results and follow their instructions regarding return to work/school. Prescriptions: guaiFENesin [Mucinex 600mg tablet] 1 - 2 tab PO BIDP PRN #30 tab PRN Reason: Congestion Transmission Status: Received by [facility] Benzonatate [Tessalon Perle 100mg Cap] 100 mg PO TIDP PRN #30 cap PRN Reason: Cough Transmission Status: Received by [facility] Azithromycin [Z-Jj 250mg Tab*] 250 mg PO UD DOSE PK #6 tab Transmission Status: Received by [facility] Referrals: Provider,Referral, [Primary Care Provider] - Time of Disposition: 17:07 Medical Decision Making - Medical Records Medical records reviewed: No: I reviewed the patient's medical records. - Reyes Inquiry Pt receiving controlled substance: No Vital Signs: 12/19/20 14:49 12/19/20 17:15 Temperature 97.6 F 97.6 F Temperature Source Oral Oral Pulse Rate 63 Pulse Rate [Left Radial] 63 Respiratory Rate 20 20 Blood Pressure 133/97 H Blood Pressure [Right Arm] 133/97 H Blood Pressure Mean [Right Arm] 109 Blood Pressure Source [Right Arm] Automatic Cuff Blood Pressure Position [Right Arm] Sitting 02 Sat by Pulse Oximetry 96 Oxygen Delivery Method Room Air Room Air - Radiology Data #1 Image(s): Chest Image Reviewed: Yes I reviewed the patient's radiology image, Yes I have reviewed radiologist's interpretation Preliminary Findings: No Infiltrates Seen PROCEDURE INFORMATION: Exam: XR Chest Exam date and time: 12/19/2020 4:25 PM Age: 85 years old Clinical indication: Cough TECHNIQUE: Imaging protocol: XR of the chest. Views: 2 views. COMPARISON: CR XR CHEST 2V 10/09/2020 10:21 AM FINDINGS: Lungs: No focal consolidation. Linear opacities scattered throughout both lungs have not significantly changed when compared to the prior examination. Pleural spaces: No evidence of pleural effusion or pneumothorax. Heart/Mediastinum: The cardiomediastinal silhouette is stable. Bones/joints: There are multilevel degenerative changes of the spine. No evidence of acute displaced fracture. IMPRESSION: No evidence of acute abnormality. [facility] [place] HPI - General Stated complaint: cough, stomach pain Time Seen by Provider: 12/19/20 17:01 Mode of Arrival: Ambulatory Source of Information: Patient Limitations: No Limitations Description of Symptoms (Recalled from Triage Doc. by RN): congestion and coughing stuff up. HEENT Symptoms (Recalled from RN notes): No Resp Symptoms (Recalled from RN notes): Yes Skin Symptoms (Recalled from RN notes): No MS Symptoms (Recalled from RN notes): No Functional Status (Recalled from RN notes): wnl - History of Present Illness Provider Complaint: He states that for the past several days he has been coughing more than normal. He has coughed up some whitish sputum. He denies any chest pain or shortness of breath. - Related Data Home Medications Medication Instructions Recorded Confirmed Methocarbamol [Robaxin 500mg Tab*] 500 mg PO QID 11/06/19 11/20/20 Nabumetone 750 mg PO BID 11/06/19 11/20/20 Pantoprazole Sodium [Protonix 40mg 40 mg PO DAILY 11/06/19 11/20/20 tablet] Previous Rx's Medication Instructions Recorded Diclofenac Sodium
[2020-12-19 17:15] VITALS: BP 133/97; PULSE 63; RESP 20; TEMP 36.4; O2SAT 96
== END 2020-12-19 17:21 | disposition home or self-care (01) ==
PROVIDERS: Emergency Provider Nurse Practitioner Family
DX: U07.1 COVID-19 (principal); J20.9 Acute bronchitis, unspecified; I10 Essential (primary) hypertension
CPT/HCPCS: G0463; 71046; 99202; U0003

== ENCOUNTER 2021-01-16 16:28 | Emergency (ER) | payer MEDICARE, OTHER, SELFPAY ==
[2021-01-16 16:44] VITALS: BP 147/83; PULSE 68; RESP 16; TEMP 36.8; O2SAT 98; BMI 28.3
--- NOTE | 2021-01-16 17:03 | HMH.EDUTC ---
[place] Disposition Clinical Impression: Constipation Qualifiers: Constipation type: unspecified constipation type Qualified Code(s): K59.00 - Constipation, unspecified Disposition: Home, Self-Care Condition on Discharge: Good Instructions: Constipation, Increased Dietary Fiber May Improve Constipation Conditions With Pelvic Patricio, DI for Constipation Additional Instructions: Make sure that you are drinking plenty of water to help prevent constipation Make sure that you are eating healthy and getting plenty of fiber to help with constipation [facility] to [facility] Return if needed Straight to ER if any life threatening symptoms Referrals: Provider,Referral, MD [Primary Care Provider] - As needed Time of Disposition: 18:10 Medical Decision Making - Reyes Inquiry Pt receiving controlled substance: No Reyes was queried for this patient: No Vital Signs: 01/16/21 16:44 01/16/21 18:28 Temperature 98.2 F 98.2 F Temperature Source Temporal Artery Scan Pulse Rate 68 Pulse Rate [Left] 68 Respiratory Rate 16 16 Blood Pressure 147/83 H Blood Pressure [Right Arm] 147/83 H Blood Pressure Mean [Right Arm] 104 02 Sat by Pulse Oximetry 98 Orders (Tests/Meds): ED MEDICATIONS Discontinued Medications Generic Name Dose Route Start Last Admin Trade Name Freq PRN Reason Stop Dose Admin Mineral Oil 133 ml 01/16/21 17:57 Mineral Oil Enema 133ml RC 01/16/21 17:58 ONCE ONE Sodium Phosphate 133 ml 01/16/21 17:59 01/16/21 18:03 Fleet 133ml Enema RC 01/16/21 18:00 133 ml ONCE ONE Administration Medical Decision Narrative: Patient still awaiting xray and growing agitated Discussed with patient and he states feels like it is ready to come out but it is hard, digital assessment completed and noted large amount of hard dry stool palpated and removed Patient not wanting xray now Discussed with patient and recommended KUB to assess extent of constipation and he declined states that he wants an enema and to go home Again recommended KUB to assess constipation as xray is at bedside to take him and he declined states that he wants enema and see if that helps and he will do it after that if needed After enema patient had large bowel movement and states that he no longer feels like he is constipated and feels much better again recommended KUB and patient declined [place] HPI - General Stated complaint: constipation Time Seen by Provider: 01/16/21 17:03 Mode of Arrival: Ambulatory Source of Information: Patient Limitations: No Limitations Description of Symptoms (Recalled from Triage Doc. by RN): PT C/O CONSTIPATION. LAST BM 3-4 DAYS AGO. PT TOOK SOMETHING TODAY BUT UNSURE WHAT. HEENT Symptoms (Recalled from RN notes): No Resp Symptoms (Recalled from RN notes): No Skin Symptoms (Recalled from RN notes): No MS Symptoms (Recalled from RN notes): No Functional Status (Recalled from RN notes): NA - History of Present Illness Provider Complaint: Patient states that he feels like he is constipated again States that he gets that way from time to time State that he has been taking [facility] but still hasnt had a BM in the last couple of days and feels like it is close to his bottom and hard and dry and needs to come out States that he has came here before and they give him something and made him poop and he felt better and he wanted some again Denies pain, denies cramping - Related Data Home Medications Medication Instructions Recorded Confirmed Methocarbamol [Robaxin 500mg Tab*] 500 mg PO QID 11/06/19 11/20/20 Nabumetone 750 mg PO BID 11/06/19 11/20/20 Pantoprazole Sodium [Protonix 40mg 40 mg PO DAILY 11/06/19 11/20/20 tablet] Previous Rx's Medication Instructions Recorded Diclofenac Sodium [Voltaren 4 gm TP TID #1 gel..gram. 11/20/19 Arthritis Pain] Cyclobenzaprine HCl 5 mg PO Q8HP PRN #30 tab 12/29/19 [Cyclob
[2021-01-16 18:28] VITALS: BP 147/83; PULSE 68; RESP 16; TEMP 36.8
== END 2021-01-16 18:29 | disposition home or self-care (01) ==
PROVIDERS: Emergency Provider Nurse Practitioner
DX: K59.00 Constipation, unspecified (principal); I10 Essential (primary) hypertension; Z87.891 Personal history of nicotine dependence
CPT/HCPCS: G0463; 99202

== ENCOUNTER 2021-03-26 11:38 | Emergency (ER) | payer MEDICARE, OTHER, SELFPAY ==
[2021-03-26 11:50] VITALS: BP 140/87; PULSE 75; RESP 20; TEMP 36.7; O2SAT 97; BMI 27.4
--- NOTE | 2021-03-26 12:39 | HMH.EDUTC ---
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 Take the steroids as directed. Follow up with Dr. Alarcon (orthopedics). I put in a referral but you need to call his office and schedule an appointment. Follow up with your regular doctor. GO TO THE ER FOR ANY WORSENING SYMPTOMS Prescriptions: methylPREDNISolone [Medrol] 4 mg PO DIRECTED 6 Days #21 packet Transmission Status: Received by [facility] Referrals: ProviderTucker MD [Primary Care Provider] - Abdoul Alarcon MD [Staff Physician] - Time of Disposition: 13:06 Medical Decision Making - Medical Records Medical records reviewed: No: I reviewed the patient's medical records. - Reyes Inquiry Pt receiving controlled substance: No Vital Signs: 03/26/21 11:50 03/26/21 13:15 Temperature 98.1 F 98.1 F Temperature Source Oral Oral Pulse Rate 74 Pulse Rate [Left Radial] 75 Respiratory Rate 20 20 Blood Pressure 138/80 Blood Pressure [Right Arm] 140/87 Blood Pressure Mean [Right Arm] 104 02 Sat by Pulse Oximetry 97 Oxygen Delivery Method Room Air Room Air [facility] [place] HPI - General Stated complaint: rt hand pain, no accident Time Seen by Provider: 03/26/21 12:40 Mode of Arrival: Ambulatory Source of Information: Patient Limitations: No Limitations Description of Symptoms (Recalled from Triage Doc. by RN): pt to [facility] c/o right middle finger pain. pt states no injury or accident. HEENT Symptoms (Recalled from RN notes): No Resp Symptoms (Recalled from RN notes): No Skin Symptoms (Recalled from RN notes): No MS Symptoms (Recalled from RN notes): Yes Functional Status (Recalled from RN notes): na - History of Present Illness Provider Complaint: He states that for the past 3 weeks he has had right hand pain. His ring finger catches when he bends it. He has to manually pull it back straight with the other hand to get it to working again. He denies any injury or other complaints. - Related Data Home Medications Medication Instructions Recorded Confirmed Methocarbamol [Robaxin 500mg Tab*] 500 mg PO QID 11/06/19 11/20/20 Nabumetone 750 mg PO BID 11/06/19 11/20/20 Pantoprazole Sodium [Protonix 40mg 40 mg PO DAILY 11/06/19 11/20/20 tablet] Previous Rx's Medication Instructions Recorded Diclofenac Sodium [Voltaren 4 gm TP TID #1 gel..gram. 11/20/19 Arthritis Pain] Cyclobenzaprine HCl 5 mg PO Q8HP PRN #30 tab 12/29/19 [Cyclobenzaprine 5mg Tab] Ketorolac Tromethamine [Toradol 10 mg PO Q6H 5 Days #20 tab 12/29/19 10mg tablet] Tamsulosin HCl [Flomax 0.4mg 0.4 mg PO HS #10 cap.er.24h 02/29/20 capsule] Azithromycin [Z-Jj 250mg Tab*] 250 mg PO UD DOSE PK #6 tab 09/10/20 Cetirizine HCl [Zyrtec] 10 mg PO DAILY 30 Days #30 cap 09/10/20 Ketotifen Fumarate [Alaway] 1 drp EYE-BOTH BID #1 bottle 09/16/20 Azithromycin [Z-Jj 250mg Tab*] 250 mg PO UD DOSE PK #6 tab 10/09/20 Naproxen [Naproxen 375mg Tab] 375 mg PO BIDP PRN #20 tab 10/14/20 Naproxen [Naproxen 375mg Tab] 375 mg PO BID PRN #20 tab 11/04/20 Azithromycin [Z-Jj 250mg Tab*] 250 mg PO UD DOSE PK #6 tab 12/19/20 Benzonatate [Tessalon Perle 100mg 100 mg PO TIDP PRN #30 cap 12/19/20 Cap] guaiFENesin [Mucinex 600mg tablet] 1 - 2 tab PO BIDP PRN #30 tab 12/19/20 methylPREDNISolone [Medrol] 4 mg PO DIRECTED 6 Days #21 03/26/21 packet Allergies Allergy/AdvReac Type Severity Reaction Status Date / Time No Known Allergies Allergy Verified 11/20/20 10:50 - Worker's Comp Is this a Worker's Comp case?: No [facility] History - Hepatitis A Screen Drug use history?: No High risk sexual behaviors?: No
[2021-03-26 13:15] VITALS: BP 138/80; PULSE 74; RESP 20; TEMP 36.7; O2SAT 97
== END 2021-03-26 13:18 | disposition home or self-care (01) ==
PROVIDERS: Emergency Provider Nurse Practitioner Family
DX: M65.4 Radial styloid tenosynovitis [de Quervain] (principal); M65.341 Trigger finger, right ring finger; Z87.891 Personal history of nicotine dependence
CPT/HCPCS: G0463; 99202

== ENCOUNTER 2021-03-31 09:48 | Emergency (ER) | payer MEDICARE, OTHER, SELFPAY ==
[2021-03-31 11:48] VITALS: BP 180/94; PULSE 58; RESP 16; TEMP 36.4; O2SAT 97; BMI 30.1
--- NOTE | 2021-03-31 12:20 | HMH.EDUTC ---
[facility] [place] Disposition Clinical Impression: De Quervain's tenosynovitis, right Disposition: Home, Self-Care Condition on Discharge: Good Instructions: Trigger Finger, De Quervain Tenosynovitis, DI for Trigger Finger Additional Instructions: Rest the extremity, Elevate the extremity as tolerated while you are resting. Take the medication as directed. Follow up with Dr. Alarcon (orthopedics). Steroids may help this condition, but the effect probably will not be permanent. There are better ways to fix this that an orthopedic physician like Dr. Alarcon can help you with. Please follow up with him. Follow up with your regular doctor. GO TO THE ER FOR ANY WORSENING SYMPTOMS Prescriptions: methylPREDNISolone [Medrol] 4 mg PO DIRECTED 6 Days #21 packet Transmission Status: Pending to [facility] Referrals: Provider,MD Tucker [Primary Care Provider] - Abdoul Alarcon MD [Staff Physician] - Time of Disposition: 12:42 Medical Decision Making - Medical Records Medical records reviewed: No: I reviewed the patient's medical records. - Reyes Inquiry Pt receiving controlled substance: No Vital Signs: 03/31/21 11:48 Temperature 97.6 F Temperature Source Oral Pulse Rate [Left] 58 L Respiratory Rate 16 Blood Pressure [Right Arm] 180/94 H Blood Pressure Mean [Right Arm] 122 02 Sat by Pulse Oximetry 97 [facility] [place] HPI - General Stated complaint: left hand pain Time Seen by Provider: 03/31/21 12:20 Mode of Arrival: Ambulatory Source of Information: Patient Limitations: No Limitations Description of Symptoms (Recalled from Triage Doc. by RN): pt c/o L hand middle finger pain. pt has been seen for this in the [facility] and referred to ortho. pt has not seen ortho for possible tendonitis. HEENT Symptoms (Recalled from RN notes): No Resp Symptoms (Recalled from RN notes): No Skin Symptoms (Recalled from RN notes): No MS Symptoms (Recalled from RN notes): Yes (L hand pain) Functional Status (Recalled from RN notes): wnl - History of Present Illness Provider Complaint: He is back here to follow up over his right hand pain and his right ring finger that catches. He states that his symptoms did get much better with the steroids that were prescribed here at his last visit. He is requesting 3 more days of that medication because he thinks that will get it completely better. He has not follow up with orthopedics as referred. [facility] - Related Data Home Medications Medication Instructions Recorded Confirmed Methocarbamol [Robaxin 500mg Tab*] 500 mg PO QID 11/06/19 11/20/20 Nabumetone 750 mg PO BID 11/06/19 11/20/20 Pantoprazole Sodium [Protonix 40mg 40 mg PO DAILY 11/06/19 11/20/20 tablet] Previous Rx's Medication Instructions Recorded Diclofenac Sodium [Voltaren 4 gm TP TID #1 gel..gram. 11/20/19 Arthritis Pain] Cyclobenzaprine HCl 5 mg PO Q8HP PRN #30 tab 12/29/19 [Cyclobenzaprine 5mg Tab] Ketorolac Tromethamine [Toradol 10 mg PO Q6H 5 Days #20 tab 12/29/19 10mg tablet] Tamsulosin HCl [Flomax 0.4mg 0.4 mg PO HS #10 cap.er.24h 02/29/20 capsule] Azithromycin [Z-Jj 250mg Tab*] 250 mg PO UD DOSE PK #6 tab 09/10/20 Cetirizine HCl [Zyrtec] 10 mg PO DAILY 30 Days #30 cap 09/10/20 Ketotifen Fumarate [Alaway] 1 drp EYE-BOTH BID #1 bottle 09/16/20 Azithromycin [Z-Jj 250mg Tab*] 250 mg PO UD DOSE PK #6 tab 10/09/20 Naproxen [Naproxen 375mg Tab] 375 mg PO BIDP PRN #20 tab 10/14/20 Naproxen [Naproxen 375mg Tab] 375 mg PO BID PRN #20 tab 11/04/20 Azithromycin [Z-Jj 250mg Tab*] 250 mg PO UD DOSE PK #6 tab 12/19/20 Benzonatate [Tessalon Perle 100mg 100 mg PO TIDP PRN #30 cap 12/19/20 Cap] guaiFENesin [Mucinex 600mg tablet] 1 - 2 tab PO BIDP PRN #30 tab 12/19/20 methylPREDNISolone [Medrol] 4 mg PO DIRECTED 6 Days #21 03/26/21 packet methylPREDNISolone [Medrol] 4 mg PO DIRECTED 6 Days #21 03/31/21 packet Allergies Allergy/AdvReac Type Severity Reaction Status D
[2021-03-31 12:44] VITALS: BP 162/87; PULSE 63; RESP 16; TEMP 36.4
== END 2021-03-31 12:51 | disposition home or self-care (01) ==
PROVIDERS: Emergency Provider Nurse Practitioner Family
DX: M65.4 Radial styloid tenosynovitis [de Quervain] (principal)
CPT/HCPCS: G0463; 99202

== ENCOUNTER → 2021-04-07 13:47 | Outpatient (CLI) | payer MEDICARE, OTHER, SELFPAY ==
--- NOTE | 2021-04-07 13:53 | XR_ITS ---
PROCEDURE: XR HAND RT MIN 3V CLINICAL INDICATION: right hand pain; trigger finger COMPARISON: No exams were available for comparison FINDINGS: No fracture or dislocation. No lytic or blastic change. There is normal mineralization. Mild osteoarthritic changes involving the DIP joints, the 1st metacarpal-carpal joint, the 1st metacarpophalangeal joint, and 1st interphalangeal joint as well as the 3rd metacarpal phalangeal joint. Mild bony exostosis involves the distal lateral aspect the scaphoid. Other findings:None. IMPRESSION: Osteoarthritic changes. The Dictated by: Alex Cabrales MD 04/07/2021 16:49 Alex Cabrales MD in [place] 04/07/2021 16:49
== END ==
PROVIDERS: Visit Provider Orthopaedic Surgery
DX: M79.641 Pain in right hand (principal)
CPT/HCPCS: 73130

== ENCOUNTER 2021-06-10 18:18 | Emergency (ER) | payer MEDICARE, OTHER, SELFPAY ==
[2021-06-10 18:19] VITALS: BP 191/95; PULSE 74; RESP 16; TEMP 36.6; O2SAT 100; BMI 24.2
[2021-06-10 18:24] VITALS: BMI 24.3
[2021-06-10 18:47] LABS: Basophils # 0.2 K/mm3 (0-0.2); Basophils % 4.3 % (0.1-2.0); Eosinophils # 0.1 K/mm3 (0.0-0.4); Eosinophils % 1.7 % (0.1-12.0); Hematocrit 43.6 % (42.0-52.0); Hemoglobin 14.6 g/dL (14.1-18.0); Lymphocytes # 3.1 K/mm3 (0.7-4.5); Lymphocytes % 54.7 % (10-50); Mean Corpuscular HGB Conc 33.4 g/dL (31.8-35.4); Mean Corpuscular Hemoglobin 28.6 pg (27.0-31.2); Mean Corpuscular Volume 85.9 fl (80-94); Mean Platelet Volume 7.8 fl (7.4-10.4); Monocytes # 0.5 K/mm3 (0.1-1.0); Neutrophils % 35.7 % (37.0-80.0); Platelet Count 231 K/mm3 (142-424); Red Blood Count 5.08 M/mm3 (4.60-6.20); Red Cell Distribution Width 14.7 % (11.5-17.5); White Blood Count 5.6 K/mm3 (4.8-10.8)
[2021-06-10 18:49] LABS: MANUAL DIFFERENTIAL MANUAL DIFFERENTIAL (MANUAL DIFF)
[2021-06-10 18:53] LABS: Alanine Aminotransferase 19 U/L (12-78); Albumin Level 4.6 g/dl (3.5-5.0); Albumin/Globulin Ratio 1.5 (1.1-1.8); Alkaline Phosphatase 88 U/L (38-126); Anion Gap 9.1 mEq/L (5-15); Aspartate Amino Transferase 31 U/L (17-59); Bilirubin,Total 0.3 mg/dl (0.2-1.3); Blood Urea Nitrogen 11 mg/dl (9-20); Calcium 9.3 mg/dl (8.4-10.2); Carbon Dioxide 32 mmol/L (22.0-30.0); Chloride 103 mmol/L (98-107); Creatinine Clearance Estimated 54 mL/min (50-200); Estimated Glomerular Filt Rate 64 ml/min (>60); GFR (African American) 77 ML/MIN (>60); Glucose 90 mg/dl (74-100); Potassium 4.1 mmoL/L (3.5-5.1); Sodium 140 mmol/L (136-145); Total Protein,Serum 7.6 g/dl (6.3-8.2)
[2021-06-10 20:54] LABS: Eosinophils % 3 % (0-3); Lymphocytes % 66 % (10-50); Monocytes % 2 % (2-9); Neutrophils % 29 % (42-76); Platelet Estimate Normal; Target Cells 1+; Total Cells Counted 100
--- NOTE | 2021-06-10 20:54 | HMH.EDALLER ---
ED Disposition Clinical Impression: Angioedema Qualifiers: Encounter type: initial encounter Qualified Code(s): T78.3XXA - Angioneurotic edema, initial encounter Disposition: Home, Self-Care Condition on Discharge: Good Instructions: DI for Angioedema Additional Instructions: use meds and stop nsaif and call pcp in am Prescriptions: predniSONE [Prednisone 20mg Tab] 20 mg PO BID #10 tab Transmission Status: Pending to [facility] Referrals: Provider,Referral, [Primary Care Provider] - - Critical Care Critical Care Time: No Attestation: On 06/10/21, the high probability of a clinically significant, sudden or life threatening deterioration of the following system(s) required my full and direct attention, intervention and personal management. The time I documented below is in addition to time spent performing reported procedures but includes the following listed in this critical care notation. Medical Decision Making - Medical Records Medical records reviewed: Yes: I reviewed the patient's medical records. - Reyes Inquiry Pt receiving controlled substance: No Vital Signs: 06/10/21 18:19 Temperature 97.9 F Temperature Source Oral Pulse Rate [Right] 74 Respiratory Rate 16 Blood Pressure [Right Arm] 191/95 H Blood Pressure Mean [Right Arm] 127 Blood Pressure Source [Right Arm] Automatic Cuff Blood Pressure Position [Right Arm] Sitting 02 Sat by Pulse Oximetry 100 Oxygen Delivery Method Room Air - Lab Data Lab results reviewed: Yes: I reviewed the patient's lab results. Lab Results 06/10/21 18:25: WBC 5.6, RBC 5.08, Hgb 14.6, Hct 43.6, MCV 85.9, MCH 28.6, MCHC 33.4, RDW 14.7, Plt Count 231, MPV 7.8, Neut % (Auto) 35.7 L, Lymph % (Auto) 54.7 H, [place] % (Auto) 8.0, Eos % (Auto) 1.7, Baso % (Auto) 4.3 H, Neut # (Auto) 2.0, Lymph # (Auto) 3.1, [place] # (Auto) 0.5, Eos # (Auto) 0.1, Baso # (Auto) 0.2, Total Counted 100, Neutrophils % (Manual) 29 L, Lymphocytes % (Manual) 66 H, Monocytes % (Manual) 2, Eosinophils % (Manual) 3, Platelet Estimate Normal, Target Cells 1+ 06/10/21 18:25: Sodium 140, Potassium 4.1, Chloride 103, Carbon Dioxide 32 H, Anion Gap 9.1, BUN 11, Creatinine 1.10, Estimated Creat Clear 54, Estimated GFR 64, Est GFR ( Amer) 77, Glucose 90, Calcium 9.3, Total Bilirubin 0.3, AST 31, ALT 19, Alkaline Phosphatase 88, Total Protein 7.6, Albumin 4.6, Globulin 3.0, Albumin/Globulin Ratio 1.5 Result diagrams: 06/10/21 18:25 06/10/21 18:25 Orders (Tests/Meds): ED MEDICATIONS Generic Name Dose Route Start Last Admin Trade Name Freq PRN Reason Stop Dose Admin Sodium Chloride 8 ml 06/10/21 18:24 Sodium Chloride 0.9% 10ml Vial IV 07/10/21 18:23 NEEDED PRN dilute pepcid Sodium Chloride 10 ml 06/10/21 18:39 Sodium Chloride 0.9% 10ml Flush Syringe IV 07/10/21 18:38 NEEDED PRN Maintain IV Site Discontinued Medications Generic Name Dose Route Start Last Admin Trade Name Freq PRN Reason Stop Dose Admin Diphenhydramine HCl 25 mg 06/10/21 18:24 06/10/21 18:41 Diphenhydramine 50mg/Ml Vial IV 06/10/21 18:25 25 mg ONCE ONE Administration Famotidine 20 mg 06/10/21 18:24 06/10/21 18:41 Famotidine 20mg/2ml Vial IV 06/10/21 18:25 20 mg ONCE ONE Administration Methylprednisolone Sodium Succinate 125 mg 06/10/21 18:24 06/10/21 18:41 Methylprednisolone Sod Succ 125mg Vial IV 06/10/21 18:25 125 mg ONCE ONE Administration ORDERS Category Date Time Status Peripheral Smear Review Routine Lab 06/10/21 21:16 Ordered Medical Decision Narrative: has sl improved and stable exam with stable labs Allergic React/Insect Bite HPI - General Chief complaint: Allergic Reaction Stated complaint: SWOLLEN LIP Time Seen by Provider: 06/10/21 20:30 Mode of Arrival - ED Triage: EMS Source of Information: Patient, EMS, Medical Record Limitations: No Limitations - History of Present Illness HPI narrative: pt
[2021-06-10 21:40] VITALS: BP 167/75; PULSE 80; RESP 18; TEMP 36.7; O2SAT 99
[2021-06-12 21:20] LABS: Peripheral Smear Review Scanned Result
== END 2021-06-10 21:41 | disposition home or self-care (01) ==
PROVIDERS: Student in an Organized Health Care Education/Training Program; Emergency Provider Emergency Medicine
DX: T78.3XXA Angioneurotic edema, initial encounter (principal); I10 Essential (primary) hypertension; Z87.891 Personal history of nicotine dependence
CPT/HCPCS: 80053; 85007; 85025; 96374; 96375; 99283

== ENCOUNTER 2021-06-20 10:20 | Emergency (ER) | payer MEDICARE, OTHER, SELFPAY ==
[2021-06-20 10:40] VITALS: BP 132/75; PULSE 87; RESP 17; TEMP 36.6; O2SAT 100; BMI 26.6
--- NOTE | 2021-06-20 11:09 | HMH.EDUTC ---
[facility] [place] Clinical Impression: Medication care plan discussed with patient Disposition: Home, Self-Care Condition on Discharge: Good Instructions: Eating Healthfully: Tips to Make It Easier, How to Measure Blood Pressure in a Clinical Setting Additional Instructions: discussed medication and times to take each Referrals: Provider,Referral, [Primary Care Provider] - Time of Disposition: 11:12 Medical Decision Making - Reyes Inquiry Pt receiving controlled substance: No Vital Signs: 06/20/21 10:40 Temperature 97.8 F Temperature Source Oral Pulse Rate [Right Brachial] 87 Respiratory Rate 17 Blood Pressure [Right Arm] 132/75 Blood Pressure Mean [Right Arm] 94 Blood Pressure Source [Right Arm] Automatic Cuff Blood Pressure Position [Right Arm] Sitting 02 Sat by Pulse Oximetry 100 Oxygen Delivery Method Room Air [facility] [place]PI - General Chief complaint: Urgent [facility] Stated complaint: meds check Time Seen by Provider: 06/20/21 11:09 Mode of Arrival: Ambulatory Source of Information: Patient Limitations: No Limitations Description of Symptoms (Recalled from Triage Doc. by RN): PATIENT STATES HE NEEDS SOMEONE TO GO OVER HIS DAILY MED[facility] ([facility]) AND TELL HIM WHAT HE NEEDS TO TAKE AND WHEN HEENT Symptoms (Recalled from RN notes): No Resp Symptoms (Recalled from RN notes): No Skin Symptoms (Recalled from RN notes): No MS Symptoms (Recalled from RN notes): No Functional Status (Recalled from RN notes): WNL - History of Present Illness Provider Complaint: 85 yr old male presents with all meds to discuss times and when he takes each med. pt states he needs to know when to take both bp meds mainly - Related Data Home Medications Medication Instructions Recorded Confirmed Nabumetone 750 mg PO BID 11/06/19 04/07/21 Pantoprazole Sodium [Protonix 40mg 40 mg PO DAILY 11/06/19 04/07/21 tablet] Previous Rx's Medication Instructions Recorded Diclofenac Sodium [Voltaren 4 gm TP TID #1 gel..gram. 11/20/19 Arthritis Pain] Tamsulosin HCl [Flomax 0.4mg 0.4 mg PO HS #10 cap.er.24h 02/29/20 capsule] Cetirizine HCl [Zyrtec] 10 mg PO DAILY 30 Days #30 cap 09/10/20 Ketotifen Fumarate [Alaway] 1 drp EYE-BOTH BID #1 bottle 06/01/21 Naproxen [Naproxen 375mg Tab] 375 mg PO BID PRN #20 tab 11/04/20 methylPREDNISolone [Medrol] 4 mg PO DIRECTED 6 Days #21 03/31/21 packet predniSONE [Prednisone 20mg 20 mg PO BID #10 tab 06/10/21 Tab] Allergies Allergy/AdvReac Type Severity Reaction Status Date / Time No Known Allergies Allergy Verified 04/07/21 14:30 - Worker's Comp Is this a Worker's Comp case?: No [facility] History - Hepatitis A Screen Drug use history?: No High risk sexual behaviors?: No History of sexually transmitted infection?: No Currently employed?: No Childcare worker?: No Do you have indoor plumbing?: Yes Do you have electricity?: Yes Attestation statement:: This patient has been screened for Hepatitis A risk factors. I have reviewed the patient's past medical history: Yes Medical History: Reports:: Hypertension, Urinary Tract Infection Denies:: Cancer, Diabetes Mellitus Type 1, Diabetes Mellitus Type 2, MRSA Other Medical History: Reports: Arthritis Other Surgeries: Yes: No Previous Surgery, Colonoscopy Amputation: No Fractures: No - Social History Smoking Status: Former smoker Tobacco Type: cigarettes Alcohol Intake: former Alcohol Intake Frequency:: holidays/special occasions only Substance Use Type: denies use Occupational Status: other, retired Housing: apartment Household Members: none Family Hx:: No significant family history ROS Obtained: Yes Systems reviewed as appropriate & no additional complaints - Constitutional Constitutional: Reports system reviewed and no additional complaints, except as docu, Denies fever(s) - Eyes Eyes: Reports system reviewed and no additional complaints, except as docu, Denies blurry vision - ENT
[2021-06-20 11:15] VITALS: BP 132/75; PULSE 87; RESP 17; TEMP 36.6; O2SAT 100
== END 2021-06-20 11:19 | disposition home or self-care (01) ==
PROVIDERS: Emergency Provider Nurse Practitioner Family
DX: I10 Essential (primary) hypertension (principal); M19.90 Unspecified osteoarthritis, unspecified site; Z79.1 Long term (current) use of non-steroidal anti-inflammatories (NSAID); Z79.51 Long term (current) use of inhaled steroids; Z79.82 Long term (current) use of aspirin; Z79.84 Long term (current) use of oral hypoglycemic drugs; Z79.899 Other long term (current) drug therapy; Z87.891 Personal history of nicotine dependence
CPT/HCPCS: 99282

== ENCOUNTER 2021-08-08 11:03 | Emergency (ER) | payer MEDICARE, OTHER, SELFPAY ==
--- NOTE | 2021-08-08 11:08 | XR_ITS ---
PROCEDURE INFORMATION: Exam: XR Right Foot Exam date and time: 08/08/2021 11:17 AM Age: 85 years old Clinical indication: Pain; Foot; Right; Additional info: Pain. Great toe pain TECHNIQUE: Imaging protocol: XR Right foot. Views: 3 or more views. COMPARISON: CR XR KNEE RT 3V 10/14/2020 10:21 AM FINDINGS: Bones/joints: Coarsening of the bony trabecular pattern compatible with osteopenia. Mild hallux valgus deformity. Soft tissues: Mild soft tissue swelling superficial to the 1st metatarsal phalangeal joint. IMPRESSION: 1. Coarsening of the bony trabecular pattern compatible with osteopenia. 2. Nonspecific soft tissue swelling superficial to the 1st metatarsophalangeal joint. Findings may be inflammatory etiology. Clinically correlate.
[2021-08-08 11:42] VITALS: BP 127/80; PULSE 64; RESP 18; TEMP 36.4; O2SAT 96; BMI 29.2
--- NOTE | 2021-08-08 12:07 | HMH.EDUTC ---
[facility] [place] Clinical Impression: Paronychia of great toe, right Disposition: Home, Self-Care Condition on Discharge: Good Instructions: DI for Paronychia, DI for Foot Pain Additional Instructions: Rest the extremity, Elevate the extremity as tolerated while you are resting. Take tylenol for pain. Follow up with Dr. Velázquez (podiatry) or your primary care physician at the [facility]. I put in a referral to Dr. Velázquez, but you need to call her office and schedule an appointment. Follow up with your regular doctor. GO TO THE ER FOR ANY WORSENING SYMPTOMS Prescriptions: Mupirocin [Bactroban 2% Ointment 22gm tube] 1 applicatio TP TID 7 Days #1 gm Transmission Status: Received by [facility] cephALEXin [cephALEXin 500mg capsule] 500 mg PO Q6H 10 Days #40 cap Transmission Status: Received by [facility] Referrals: Provider,Referral, [Primary Care Provider] - Time of Disposition: 12:46 Medical Decision Making - Medical Records Medical records reviewed: No: I reviewed the patient's medical records. - Reyes Inquiry Pt receiving controlled substance: No Vital Signs: 08/08/21 11:42 08/08/21 12:49 Temperature 97.5 F L 97.6 F Temperature Source Oral Oral Pulse Rate 64 Pulse Rate [Left Radial] 64 Respiratory Rate 18 18 Blood Pressure 127/80 Blood Pressure [Right Arm] 127/80 Blood Pressure Mean [Right Arm] 95 02 Sat by Pulse Oximetry 96 [facility] [place] - General Stated complaint: rt foot pain Time Seen by Provider: 08/08/21 12:07 Mode of Arrival: Ambulatory Description of Symptoms (Recalled from Triage Doc. by RN): right big toe hurting, maybe 1-2 weeks HEENT Symptoms (Recalled from RN notes): No Resp Symptoms (Recalled from RN notes): No Skin Symptoms (Recalled from RN notes): No MS Symptoms (Recalled from RN notes): Yes Functional Status (Recalled from RN notes): wnl - History of Present Illness Provider Complaint: He c/o that he has had pain at the medial fold of the his right great toe for past 1 week. He denies any known injury. - Related Data Home Medications Medication Instructions Recorded Confirmed Nabumetone 750 mg PO BID 11/06/19 04/07/21 Pantoprazole Sodium [Protonix 40mg 40 mg PO DAILY 11/06/19 04/07/21 tablet] Previous Rx's Medication Instructions Recorded Diclofenac Sodium [Voltaren 4 gm TP TID #1 gel..gram. 11/20/19 Arthritis Pain] Tamsulosin HCl [Flomax 0.4mg 0.4 mg PO HS #10 cap.er.24h 02/29/20 capsule] Cetirizine HCl [Zyrtec] 10 mg PO DAILY 30 Days #30 cap 09/10/20 Ketotifen Fumarate [Alaway] 1 drp EYE-BOTH BID #1 bottle 09/16/20 Naproxen [Naproxen 375mg Tab] 375 mg PO BID PRN #20 tab 11/04/20 methylPREDNISolone [Medrol] 4 mg PO DIRECTED 6 Days #21 03/31/21 packet predniSONE [Prednisone 20mg 20 mg PO BID #10 tab 06/10/21 Tab] Mupirocin [Bactroban 2% Ointment 1 applicatio TP TID 7 Days #1 gm 08/08/21 22gm tube] cephALEXin [cephALEXin 500mg 500 mg PO Q6H 10 Days #40 cap 08/08/21 capsule] Allergies Allergy/AdvReac Type Severity Reaction Status Date / Time No Known Allergies Allergy Verified 04/07/21 14:30 - Worker's Comp Is this a Worker's Comp case?: No Is this an H Worker's Comp?: No Is this a [place] Worker's Comp?: No [facility] History - Hepatitis A Screen Drug use history?: No High risk sexual behaviors?: No History of sexually transmitted infection?: No Currently employed?: No Childcare worker?: No Do you have indoor plumbing?: Yes Do you have electricity?: Yes Attestation statement:: This patient has been screened for Hepatitis A risk factors. I have reviewed the patient's past medical history: Yes Medical History: Reports:: Hypertension, Urinary Tract Infection Denies:: Cancer, Diabetes Mellitus Type 1, Diabetes Mellitus Type 2, MRSA Other Medical History: Reports: Arthritis Other Surgeries: Yes: No Previous Surgery, Colonoscopy Amputation: No Fractures: No - Social History
[2021-08-08 12:49] VITALS: BP 127/80; PULSE 64; RESP 18; TEMP 36.4
== END 2021-08-08 12:49 | disposition home or self-care (01) ==
PROVIDERS: Emergency Provider Nurse Practitioner Family
DX: L03.031 Cellulitis of right toe (principal); M79.671 Pain in right foot; N39.0 Urinary tract infection, site not specified; I10 Essential (primary) hypertension; M19.90 Unspecified osteoarthritis, unspecified site; Z79.52 Long term (current) use of systemic steroids; Z79.899 Other long term (current) drug therapy; Z87.891 Personal history of nicotine dependence
CPT/HCPCS: 73630; 99213; G0463

== ENCOUNTER 2021-09-09 08:56 | Emergency (ER) | payer MEDICARE, OTHER, SELFPAY ==
[2021-09-09 08:47] VITALS: BP 154/95; PULSE 85; RESP 16; TEMP 36.6; O2SAT 98; BMI 27.4
--- NOTE | 2021-09-09 08:48 | PC.NURSE ---
AVILA Nguyễn at patient was transferred from the EMS stretcher to the ED stretcher with no complications
--- NOTE | 2021-09-09 08:52 | PC.NURSE ---
ED MD at
--- NOTE | 2021-09-09 08:54 | XR_ITS ---
PROCEDURE INFORMATION: Exam: XR Pelvis Exam date and time: 09/09/2021 9:53 AM Age: 86 years old Clinical indication: Injury or trauma; Fall; Sprain or strain; Right; Hip and other: Femur TECHNIQUE: Imaging protocol: XR pelvis. Views: 1 or 2 view. COMPARISON: CT ABDOMEN PELVIS WO CON 08/03/2019 12:54 PM FINDINGS: Bones/joints: osseous structures of the pelvis without an acute process. rami are intact. Sacroiliac joints without separation/diastases/fracture. Iliac bones unremarkable/noncontributory. Degenerative changes within the visualized portions of the caudal aspect of the lumbar spine. 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 Mild degenerative changes within the right hip greater than left Soft tissues: See Bones/joints finding. IMPRESSION: No acute process.
--- NOTE | 2021-09-09 08:54 | XR_ITS ---
PROCEDURE INFORMATION: Exam: XR Chest Exam date and time: 09/09/2021 9:51 AM Age: 86 years old Clinical indication: Condition or disease; Other: Hypertension; Additional info: Fall TECHNIQUE: Imaging protocol: XR of the chest. Views: 1 view. COMPARISON: CR XR CHEST 2V 12/19/2020 4:34 PM FINDINGS: Lungs: Unremarkable. No consolidation. Pleural spaces: Unremarkable. No pleural effusion. No pneumothorax. Heart/Mediastinum: Unremarkable. No cardiomegaly. Bones/joints: Unremarkable. IMPRESSION: No acute findings.
--- NOTE | 2021-09-09 08:55 | XR_ITS ---
PROCEDURE INFORMATION: Exam: XR Right Femur Exam date and time: 09/09/2021 9:55 AM Age: 86 years old Clinical indication: Injury or trauma; Fall; Sprain or strain; Hip; Right TECHNIQUE: Imaging protocol: XR Right femur. Views: 2 views. COMPARISON: CR FEMURRT XR femur RT 2V 07/26/2018 5:43 PM FINDINGS: Bones/joints: No visualized fracture. The trabecular stress markings within the proximal femur are normal. No obvious acetabular fracture. Diaphysis of the femur unremarkable. The osseous structures about the knee are normal. No joint effusion. Prior avulsion injury about the ischial tuberosity. Stable. Chondrocalcinosis Soft tissues: Unremarkable. IMPRESSION: No fracture
[2021-09-09 09:07] VITALS: BP 153/96; PULSE 79; O2SAT 100
--- NOTE | 2021-09-09 09:16 | HMH.EDFALL ---
ED Disposition Clinical Impression: Fall Disposition: Home, Self-Care Condition on Discharge: Good Instructions: How to Prevent Falls, DI for Leg Pain Additional Instructions: Please follow-up with your primary care physician in 2 to 3 days for further management. Please utilize Tylenol and ibuprofen for pain control. Please return back to the emergency department for any concerning symptoms such as inability to ambulate, worsening pain, numbness, weakness or any other concerning symptoms. Please walk with your walker at all times. Please also discuss with your primary care physician regarding physical therapy to strengthen your legs. Referrals: Provider,Referral, [Primary Care Provider] - - Critical Care Critical Care Time: No Attestation: On , the high probability of a clinically significant, sudden or life threatening deterioration of the following system(s) required my full and direct attention, intervention and personal management. The time I documented below is in addition to time spent performing reported procedures but includes the following listed in this critical care notation. Medical Decision Making - Medical Records Medical records reviewed: Yes: I reviewed the patient's medical records. - Reyes Inquiry Pt receiving controlled substance: No Vital Signs: 09/09/21 08:47 09/09/21 09:07 09/09/21 11:30 Temperature 97.9 F 97.9 F Temperature Source Oral Pulse Rate 79 90 Pulse Rate [Right Radial] 85 Respiratory Rate 16 18 Blood Pressure 153/96 H 143/87 H Blood Pressure [Right Arm] 154/95 H Blood Pressure Mean [Right Arm] 114 Blood Pressure Source Automatic Cuff Blood Pressure Source [Right Arm] Automatic Cuff Blood Pressure Position Sitting Blood Pressure Position [Right Arm] Sitting 02 Sat by Pulse Oximetry 98 100 Oxygen Delivery Method Room Air Room Air - Lab Data Lab results reviewed: Yes: I reviewed the patient's lab results. Orders (Tests/Meds): ED MEDICATIONS Discontinued Medications Generic Name Dose Route Start Last Admin Trade Name Freq PRN Reason Stop Dose Admin Acetaminophen 1,000 mg 09/09/21 08:55 09/09/21 09:14 Acetaminophen 500mg Tab PO 09/09/21 08:56 1,000 mg ONCE ONE Administration Medical Decision Narrative: Mr. Burnham is an 86-year-old male presented to the emergency department for isolated right lower extremity pain following a mechanical fall. Patient denies back, chest, abdominal or other extremity pain. Patient ambulatory on arrival. Patient is neurovascularly intact and hemodynamically stable on arrival. On physical exam patient has mild tenderness to the right upper thigh on palpation. Full range of motion. No overlying skin changes, significant swelling or ecchymosis noted. XR pelvis, cxr and femur obtained for further evaluation results show no acute fracture. Patient is given tylenol for comfort and ambulated with no difficulties. Patient instructed to take tylenol as needed for pain control. Patient is instructed to fu w/ pcp in 2-3 days and to return if pain worsens, inability to ambulate, worsening swelling or any other concerns. Fall HPI - General Chief Complaint: Fall Stated Complaint: Fall Time Seen by Provider: 09/09/21 09:00 Mode of Arrival: EMS Source of Information: Patient Limitations: No Limitations Description of Symptoms (Recalled from ER Triage Doc. by RN): Pt c/o rt hip pain after slipping in the grass this morning and falling on his bottom. Advises that hip pain is chronic. No deformity or rotation noted - History of Present Illness HPI Narrative: Mr. Burnham is an 86-year-old male with no significant past medical history presenting to the emergency department with isolated upper RLE pain secondary to mechanical fall. Patient reports he lost his balance and fell landing on his right hip. Patient reports he is unsteady on feet at baseline and walks with walker. Patient reports pain to the right th
--- NOTE | 2021-09-09 09:30 | PC.NURSE ---
patient ambulatory to restroom with assistance of cane; no complications
--- NOTE | 2021-09-09 09:32 | PC.NURSE ---
patient back to ED room 4 from restroom with assistance of cane; no complications. He is currently taking off [employer] for his xrays
--- NOTE | 2021-09-09 09:57 | PC.NURSE ---
patient to radiology by stretcher
--- NOTE | 2021-09-09 10:13 | PC.NURSE ---
patient back from radiology by stretcher
[2021-09-09 11:30] VITALS: BP 143/87; PULSE 90; RESP 18; TEMP 36.6; O2SAT 98
== END 2021-09-09 11:30 | disposition home or self-care (01) ==
PROVIDERS: Emergency Provider Student in an Organized Health Care Education/Training Program
DX: M25.551 Pain in right hip (principal); W01.0XXA Fall on same level from slipping, tripping and stumbling without subsequent striking against object, initial encounter; Y92.017 Garden or yard in single-family (private) house as the place of occurrence of the external cause; I10 Essential (primary) hypertension; Z87.891 Personal history of nicotine dependence; Z79.899 Other long term (current) drug therapy
CPT/HCPCS: 71045; 72170; 73552; 99283

== ENCOUNTER 2021-10-26 09:27 | Emergency (ER) | payer MEDICARE, OTHER, SELFPAY ==
[2021-10-26 10:21] VITALS: BP 137/72; PULSE 68; RESP 16; TEMP 36.7; O2SAT 96; BMI 29.0
--- NOTE | 2021-10-26 10:43 | HMH.EDUTC ---
[facility] Disposition Clinical Impression: Sinusitis Qualifiers: Sinusitis location: unspecified location Chronicity: unspecified Qualified Code(s): J32.9 - Chronic sinusitis, unspecified Disposition: Home, Self-Care Condition on Discharge: Good Instructions: Sinusitis, DI for Sinusitis Additional Instructions: Your appointment with Dr Cabrera is on Nov 23 at 230pm Take medication as prescribed Return if needed Continue home medications as prescribed Prescriptions: methylPREDNISolone [Medrol 4mg tab] 4 mg PO DIRECTED #21 tab Transmission Status: Received by [facility] Cefdinir [Omnicef 300mg Capsule] 300 mg PO BID 7 Days #14 cap Transmission Status: Received by [facility] Referrals: Provider,MD Tucker [Primary Care Provider] - Guero Cabrera MD [Staff Physician] - 11/23/21 2:30 pm Time of Disposition: 11:01 Medical Decision Making - Reyes Inquiry Pt receiving controlled substance: No Reyes was queried for this patient: No Vital Signs: 10/26/21 10:21 10/26/21 11:05 Temperature 98.1 F 98.1 F Temperature Source Oral Pulse Rate 68 Pulse Rate [Left] 68 Respiratory Rate 16 16 Blood Pressure 137/72 Blood Pressure [Right Arm] 137/72 Blood Pressure Mean [Right Arm] 93 02 Sat by Pulse Oximetry 96 Medical Decision Narrative: medication discussed with pharmacy [facility] HPI - General Stated complaint: nasal congestion, leg pain Time Seen by Provider: 10/26/21 10:43 Description of Symptoms (Recalled from Triage Doc. by RN): patient comes in with complaits of congestion and back and leg pain. HEENT Symptoms (Recalled from RN notes): Yes Resp Symptoms (Recalled from RN notes): No Skin Symptoms (Recalled from RN notes): No MS Symptoms (Recalled from RN notes): Yes Functional Status (Recalled from RN notes): n/a - History of Present Illness Provider Complaint: Patient states that he is having problems with sinus congestion and pressure State that he feels like he has a sinus infection States that also wanted us to check to see when his appointment was with Dr Cabrera he had forgot and wanted to make sure that he didnt miss it States the he always has leg and back pain not here for that - Related Data Home Medications Medication Instructions Recorded Confirmed Nabumetone 750 mg PO BID 11/06/19 04/07/21 Pantoprazole Sodium [Protonix 40mg 40 mg PO DAILY 11/06/19 04/07/21 tablet] Previous Rx's Medication Instructions Recorded Diclofenac Sodium [Voltaren 4 gm TP TID #1 gel..gram. 11/20/19 Arthritis Pain] Tamsulosin HCl [Flomax 0.4mg 0.4 mg PO HS #10 cap.er.24h 02/29/20 capsule] Cetirizine HCl [Zyrtec] 10 mg PO DAILY 30 Days #30 cap 09/10/20 Ketotifen Fumarate [Alaway] 1 drp EYE-BOTH BID #1 bottle 09/16/20 Naproxen [Naproxen 375mg Tab] 375 mg PO BID PRN #20 tab 11/04/20 methylPREDNISolone [Medrol] 4 mg PO DIRECTED 6 Days #21 03/31/21 packet predniSONE [Prednisone 20mg 20 mg PO BID #10 tab 06/10/21 Tab] Mupirocin [Bactroban 2% Ointment 1 applicatio TP TID 7 Days #1 gm 08/08/21 22gm tube] cephALEXin [cephALEXin 500mg 500 mg PO Q6H 10 Days #40 cap 08/08/21 capsule] Cefdinir [Omnicef 300mg Capsule] 300 mg PO BID 7 Days #14 cap 10/26/21 methylPREDNISolone [Medrol 4mg 4 mg PO DIRECTED #21 tab 10/26/21 tab] Allergies Allergy/AdvReac Type Severity Reaction Status Date / Time No Known Allergies Allergy Verified 10/26/21 10:26 - Worker's Comp Is this a Worker's Comp case?: No [facility] History - Hepatitis A Screen Attestation statement:: This patient has been screened for Hepatitis A risk factors. I have reviewed the patient's past medical history: Yes Medical History: Reports:: Hypertension, Urinary Tract Infection Denies:: Cancer, Diabetes Mellitus Type 1, Diabetes Mellitus Type 2, MRSA Other Medical History: Reports: Arthritis Other Surgeries: Yes: No Previous Surgery, Colonoscopy Amputation: No Fractures: No - Soc
[2021-10-26 11:05] VITALS: BP 137/72; PULSE 68; RESP 16; TEMP 36.7
== END 2021-10-26 11:10 | disposition home or self-care (01) ==
PROVIDERS: Emergency Provider Nurse Practitioner
DX: J32.9 Chronic sinusitis, unspecified (principal)
CPT/HCPCS: 99212; G0463

== ENCOUNTER 2022-02-05 12:17 | Emergency (ER) | payer MEDICARE, OTHER, SELFPAY ==
[2022-02-05 13:03] VITALS: BP 130/60; PULSE 50; RESP 16; TEMP 36.9; O2SAT 94; BMI 29.2
--- NOTE | 2022-02-05 13:13 | EXP.UTC ---
Discharge Plan Disposition Patient Disposition: Home, Self-Care Condition: Fair Prescriptions Prescriptions: New glycerin (adult) [Fleet Glycerin (Adult)] Suppository 1 supp KS DAILY PRN (Reason: constipation) Qty: 12 0RF polyethylene glycol 3350 [Miralax] 17 gram/dose powder 17 g PO DAILY PRN (Reason: constipation) Qty: 119 0RF Rx Instructions: mix with apple juice No Action nabumetone 750 MG tablet 750 mg PO BID pantoprazole 40 MG tablet,delayed release (DR/EC) 40 mg PO DAILY tamsulosin 0.4 MG capsule 0.4 mg PO HS Qty: 10 0RF cetirizine 10 MG capsule 10 mg PO DAILY 30 Days Qty: 30 5RF naproxen 375 MG tablet 375 mg PO BID PRN (Reason: Moderate Pain) Qty: 20 0RF cephalexin 500 MG capsule 500 mg PO Q6H 10 Days Qty: 40 0RF mupirocin 22 GM ointment 1 applicatio TP TID 7 Days Qty: 1 0RF methylprednisolone 4 MG tablet 4 mg PO DIRECTED Qty: 21 0RF Rx Instructions: Take as directed on package instructions cefdinir 300 MG capsule 300 mg PO BID 7 Days Qty: 14 0RF diclofenac sodium 20 GM gel 4 gm TP TID Qty: 1 0RF ketotifen fumarate 10 ML drops 1 drp EYE-BOTH BID Qty: 1 1RF methylprednisolone 4 MG tablets,dose pack 4 mg PO DIRECTED 6 Days Qty: 21 0RF prednisone 20 MG tablet 20 mg PO BID Qty: 10 0RF Referrals Follow up/Referrals: Provider,Referral, MD [Primary Care Provider] - See instructions Activity Restrictions/Add. Instructions Additional Instructions/Restrictions: Follow up with family doctor if not improving Clinical Impressions Clinical Impression: Constipation Discharge ED Provider: Maddi Suazo [facility] General Stated complaint: Back Pain, no accident Time Seen by Provider: 02/05/22 13:23 History of Present Illness Provider Complaint: Patient states that his bottom hurts. Has not been able to have a normal bowel movement for several days. Took some Metamucil and had a small BM yesterday. It is making his back hurts, making it hard for him to pass water. Onset (ago): day(s) (4) Location: buttocks Relieving factors: none Exacerbating factors: none Associated symptoms: denies other symptoms Treatments prior to arrival: other (Metamucil) Related Data Home Medications Medication Instructions Recorded Confirmed nabumetone 750 mg tablet 750 mg PO BID GERD 11/06/19 11/23/21 pantoprazole 40 mg tablet,delayed 40 mg PO DAILY GERD 11/06/19 11/23/21 release Previous Rx's Medication Instructions Recorded diclofenac sodium 1 % topical gel 4 gm topical TID ##1 11/20/19 tamsulosin 0.4 mg capsule 0.4 mg PO HS ##10 02/29/20 cetirizine 10 mg capsule 10 mg PO DAILY 30 days #30 caps 09/10/20 ketotifen fumarate 0.025 % (0.035 1 drp Eye-Both BID ##1 09/16/20 %) eye drops naproxen 375 mg tablet 375 mg PO BID PRN Moderate Pain 11/04/20 #20 tabs methylprednisolone 4 mg tablets in 4 mg PO DIRECTED 6 days #21 03/31/21 a dose pack packets prednisone 20 mg tablet 20 mg PO BID #10 tabs 06/10/21 cephalexin 500 mg capsule 500 mg PO Q6H 10 days #40 caps 08/08/21 mupirocin 2 % topical ointment 1 applicatio topical TID 7 days #1 08/08/21 g cefdinir 300 mg capsule 300 mg PO BID 7 days #14 caps 10/26/21 methylprednisolone 4 mg tablet 4 mg PO DIRECTED #21 tabs 10/26/21 glycerin (adult) (Fleet Glycerin 1 supp KS DAILY PRN constipation 02/05/22 (Adult) rectal suppository) #12 ea polyethylene glycol 3350 17 17 g PO DAILY PRN constipation 02/05/22 gram/dose oral powder (Miralax) #119 grams Allergies Allergy/AdvReac Type Severity Reaction Status Date / Time No Known Allergies Allergy Verified 11/23/21 14:40 PFSH PFSH Social History Smoking Status: Former smoker alcohol intake: former substance use type: denies use current occupational status: retired and other Travel in the last 8 weeks: None household members: none housing: apartment ROS Obtained: Yes All syst
[2022-02-05 13:42] VITALS: BP 130/60; PULSE 50; RESP 16; TEMP 36.9; O2SAT 94
== END 2022-02-05 13:44 | disposition home or self-care (01) ==
PROVIDERS: Emergency Provider Physician Assistant
DX: K59.00 Constipation, unspecified (principal)
CPT/HCPCS: 99212; G0463

== ENCOUNTER 2022-03-01 12:46 | Emergency (ER) | payer MEDICARE, OTHER, SELFPAY ==
[2022-03-01 15:24] VITALS: BP 134/75; PULSE 60; RESP 17; TEMP 36.8; O2SAT 98; BMI 29.2
--- NOTE | 2022-03-01 15:54 | EXP.UTC ---
Discharge Plan Disposition Patient Disposition: Home, Self-Care Condition: Good Prescriptions Prescriptions: No Action nabumetone 750 MG tablet 750 mg PO BID pantoprazole 40 MG tablet,delayed release (DR/EC) 40 mg PO DAILY tamsulosin 0.4 MG capsule 0.4 mg PO HS Qty: 10 0RF cetirizine 10 MG capsule 10 mg PO DAILY 30 Days Qty: 30 5RF naproxen 375 MG tablet 375 mg PO BID PRN (Reason: Moderate Pain) Qty: 20 0RF cephalexin 500 MG capsule 500 mg PO Q6H 10 Days Qty: 40 0RF mupirocin 22 GM ointment 1 applicatio TP TID 7 Days Qty: 1 0RF methylprednisolone 4 MG tablet 4 mg PO DIRECTED Qty: 21 0RF Rx Instructions: Take as directed on package instructions cefdinir 300 MG capsule 300 mg PO BID 7 Days Qty: 14 0RF diclofenac sodium 20 GM gel 4 gm TP TID Qty: 1 0RF ketotifen fumarate 10 ML drops 1 drp EYE-BOTH BID Qty: 1 1RF methylprednisolone 4 MG tablets,dose pack 4 mg PO DIRECTED 6 Days Qty: 21 0RF prednisone 20 MG tablet 20 mg PO BID Qty: 10 0RF glycerin (adult) [Fleet Glycerin (Adult)] Suppository 1 supp FL DAILY PRN (Reason: constipation) Qty: 12 0RF polyethylene glycol 3350 [Miralax] 17 gram/dose powder 17 g PO DAILY PRN (Reason: constipation) Qty: 119 0RF Rx Instructions: mix with apple juice Referrals Follow up/Referrals: Provider,Referral, MD [Primary Care Provider] - See instructions Gerry Angeles DO [Staff Physician] - See instructions Activity Restrictions/Add. Instructions Additional Instructions/Restrictions: Follow up with Orthopedics for further evaluation and treatment Return if needed Straight to ER if any life threatening symptoms Follow up with your Family Doctor if needed Clinical Impressions Clinical Impression: Hand problems Discharge ED Provider: Iraida Abad [facility] General Stated complaint: pain in Rt hand, swollen, no accident Mode of Arrival: Ambulatory Source of Information: Patient Limitations: No Limitations Time Seen by Provider: 03/01/22 15:57 Description of Symptoms (Recalled from Triage Doc. by RN): pt comes in with c/o right palm tingiling. symptoms ongoing for 3 weeks HEENT Symptoms (Recalled from RN notes): No Resp Symptoms (Recalled from RN notes): No Skin Symptoms (Recalled from RN notes): No MS Symptoms (Recalled from RN notes): Yes Functional Status (Recalled from RN notes): n/a History of Present Illness Provider Complaint: Patient states that he is having pain again in the palm of his right hand like he had before an came up here at the hospital somewhere and they give him a shot in his hand and it helped it state that he came in today wanting to get that shot again so he came in Related Data Home Medications Medication Instructions Recorded Confirmed nabumetone 750 mg tablet 750 mg PO BID GERD 11/06/19 11/23/21 pantoprazole 40 mg tablet,delayed 40 mg PO DAILY GERD 11/06/19 11/23/21 release Previous Rx's Medication Instructions Recorded diclofenac sodium 1 % topical gel 4 gm topical TID ##1 11/20/19 tamsulosin 0.4 mg capsule 0.4 mg PO HS ##10 02/29/20 cetirizine 10 mg capsule 10 mg PO DAILY 30 days #30 caps 09/10/20 ketotifen fumarate 0.025 % (0.035 1 drp Eye-Both BID ##1 09/16/20 %) eye drops naproxen 375 mg tablet 375 mg PO BID PRN Moderate Pain 11/04/20 #20 tabs methylprednisolone 4 mg tablets in 4 mg PO DIRECTED 6 days #21 03/31/21 a dose pack packets prednisone 20 mg tablet 20 mg PO BID #10 tabs 06/10/21 cephalexin 500 mg capsule 500 mg PO Q6H 10 days #40 caps 08/08/21 mupirocin 2 % topical ointment 1 applicatio topical TID 7 days #1 08/08/21 g cefdinir 300 mg capsule 300 mg PO BID 7 days #14 caps 10/26/21 methylprednisolone 4 mg tablet 4 mg PO DIRECTED #21 tabs 10/26/21 glycerin (adult) (Fleet Glycerin 1 supp FL DAILY PRN constipation 02/05/22 (Adult) rectal suppository) #12 ea polyethylene glycol 3350 17 17 g PO DAILY PRN const
[2022-03-01 16:11] VITALS: BP 134/75; PULSE 60; RESP 17; TEMP 36.8
== END 2022-03-01 16:15 | disposition home or self-care (01) ==
PROVIDERS: Emergency Provider Nurse Practitioner
DX: M79.641 Pain in right hand (principal); R20.2 Paresthesia of skin; K59.00 Constipation, unspecified; Z79.1 Long term (current) use of non-steroidal anti-inflammatories (NSAID); Z79.52 Long term (current) use of systemic steroids; Z79.899 Other long term (current) drug therapy; Z87.891 Personal history of nicotine dependence
CPT/HCPCS: 99213; G0463

== ENCOUNTER 2022-03-23 12:49 | Emergency (ER) | payer MEDICARE, OTHER, SELFPAY ==
[2022-03-23 12:54] VITALS: PULSE 61; RESP 18; O2SAT 95; BMI 29.8
--- NOTE | 2022-03-23 12:59 | XR_ITS ---
FINAL REPORT CLINICAL HISTORY: PAIN FINDINGS: Three views were obtained. There is no acute fracture. There is no malalignment. There is leftward curvature. There is moderate to severe degenerative change. There is multilevel osteophyte formation. IMPRESSION: Moderate to severe degenerative change. Reviewed, Interpreted and Dictated by Prince Salinas III, MD Transcribed by Frankie Castelan Authenticated and [facility]
[2022-03-23 14:25] VITALS: PULSE 61; RESP 18; TEMP 36.8; O2SAT 95; BMI 29.7
--- NOTE | 2022-03-23 14:35 | EXP.UTC ---
Discharge Plan Disposition Patient Disposition: Home, Self-Care Condition: Good Prescriptions Prescriptions: No Action nabumetone 750 MG tablet 750 mg PO BID pantoprazole 40 MG tablet,delayed release (DR/EC) 40 mg PO DAILY tamsulosin 0.4 MG capsule 0.4 mg PO HS Qty: 10 0RF cetirizine 10 MG capsule 10 mg PO DAILY 30 Days Qty: 30 5RF naproxen 375 MG tablet 375 mg PO BID PRN (Reason: Moderate Pain) Qty: 20 0RF cephalexin 500 MG capsule 500 mg PO Q6H 10 Days Qty: 40 0RF mupirocin 22 GM ointment 1 applicatio TP TID 7 Days Qty: 1 0RF methylprednisolone 4 MG tablet 4 mg PO DIRECTED Qty: 21 0RF Rx Instructions: Take as directed on package instructions cefdinir 300 MG capsule 300 mg PO BID 7 Days Qty: 14 0RF diclofenac sodium 20 GM gel 4 gm TP TID Qty: 1 0RF ketotifen fumarate 10 ML drops 1 drp EYE-BOTH BID Qty: 1 1RF methylprednisolone 4 MG tablets,dose pack 4 mg PO DIRECTED 6 Days Qty: 21 0RF prednisone 20 MG tablet 20 mg PO BID Qty: 10 0RF glycerin (adult) [Fleet Glycerin (Adult)] Suppository 1 supp [place] DAILY PRN (Reason: constipation) Qty: 12 0RF polyethylene glycol 3350 [Miralax] 17 gram/dose powder 17 g PO DAILY PRN (Reason: constipation) Qty: 119 0RF Rx Instructions: mix with apple juice Referrals Follow up/Referrals: Provider,Referral, MD [Primary Care Provider] - See instructions Activity Restrictions/Add. Instructions Additional Instructions/Restrictions: Over the counter Motrin and/or Tylenol as directed on package for pain Follow up with your Family Doctor for further treatment and evaluation Straight to the ER if any life threatening symptoms Clinical Impressions Clinical Impression: Sciatica Instructions Patient Instructions: Sciatica, DI for Sciatica Discharge ED Provider: Iraida Abad [facility] [place] HPI General Stated complaint: AO buttox pain Mode of Arrival: Ambulatory Source of Information: Patient Limitations: walks with a cane Time Seen by Provider: 03/23/22 14:35 Description of Symptoms (Recalled from Triage Doc. by RN): pt c/o left lower back pain and butt pain, states he just needs some xrays. Denies any injury at this time. History of Present Illness Provider Complaint: Patient states that he has been having pain in his left buttock area going down into his left upper leg States that when he does this he gets a shot of steriod and it gets better states that he just wanted and xray and shot and go home Related Data Home Medications Medication Instructions Recorded Confirmed nabumetone 750 mg tablet 750 mg PO BID GERD 11/06/19 11/23/21 pantoprazole 40 mg tablet,delayed 40 mg PO DAILY GERD 11/06/19 11/23/21 release Previous Rx's Medication Instructions Recorded diclofenac sodium 1 % topical gel 4 gm topical TID ##1 11/20/19 tamsulosin 0.4 mg capsule 0.4 mg PO HS ##10 02/29/20 cetirizine 10 mg capsule 10 mg PO DAILY 30 days #30 caps 09/10/20 ketotifen fumarate 0.025 % (0.035 1 drp Eye-Both BID ##1 09/16/20 %) eye drops naproxen 375 mg tablet 375 mg PO BID PRN Moderate Pain 11/04/20 #20 tabs methylprednisolone 4 mg tablets in 4 mg PO DIRECTED 6 days #21 03/31/21 a dose pack packets prednisone 20 mg tablet 20 mg PO BID #10 tabs 06/10/21 cephalexin 500 mg capsule 500 mg PO Q6H 10 days #40 caps 08/08/21 mupirocin 2 % topical ointment 1 applicatio topical TID 7 days #1 08/08/21 g cefdinir 300 mg capsule 300 mg PO BID 7 days #14 caps 10/26/21 methylprednisolone 4 mg tablet 4 mg PO DIRECTED #21 tabs 10/26/21 glycerin (adult) (Fleet Glycerin 1 supp IA DAILY PRN constipation 02/05/22 (Adult) rectal suppository) #12 ea polyethylene glycol 3350 17 17 g PO DAILY PRN constipation 02/05/22 gram/dose oral powder (Miralax) #119 grams Allergies Allergy/AdvReac Type Severity Reaction Status Date / Time No Known Allergies Allergy Verified 03/01/22 15:27 PFSH PFSH Dis
[2022-03-23 14:57] VITALS: BP 0/0; PULSE 61; RESP 18; TEMP 36.8; O2SAT 95
== END 2022-03-23 15:05 | disposition home or self-care (01) ==
PROVIDERS: Emergency Provider Nurse Practitioner
DX: M54.32 Sciatica, left side (principal)
CPT/HCPCS: 72100; 96372; 99212; G0463

== ENCOUNTER 2022-04-05 14:36 | Inpatient (IN) | payer MEDICARE, OTHER, SELFPAY ==
[2022-04-05] VITALS (10 sets, daily range): BP systolic 138–193; BP diastolic 97–149; PULSE 11–113; RESP 12–19; TEMP 35.8–36.7; O2SAT 92–98; BMI 22.4; BMI 23.7
--- NOTE | 2022-04-05 15:04 | XR_ITS ---
FINAL REPORT CLINICAL HISTORY: AMS COMPARISON: August 2021 FINDINGS: The heart size is normal. The mediastinum is within normal limits. There is no acute cardiopulmonary process. There is no pleural effusion. There is no pneumothorax. The bony thorax is intact. IMPRESSION: No acute cardiopulmonary process. Reviewed, Interpreted and Dictated by Prince Salinas III, MD Transcribed by Frankie Castelan Authenticated and [facility]
--- NOTE | 2022-04-05 15:04 | XR_ITS ---
FINAL REPORT CLINICAL HISTORY: right hip pain, found down on R hip FINDINGS: Right hip with pelvis There is no acute fracture or dislocation. There are moderate to severe degenerative changes in the lower lumbar spine. There are mild degenerative changes of the hips. There are no soft tissue abnormalities. IMPRESSION: No acute process. Reviewed, Interpreted and Dictated by Prince Salinas III, MD Transcribed by Frankie Castelan Authenticated and . [facility]
--- NOTE | 2022-04-05 15:04 | CT_ITS ---
FINAL REPORT CLINICAL HISTORY: fall, head trauma FINDINGS: Axial images of the head were obtained without contrast. Coronal reformatted images were also obtained. This study was performed with techniques to keep radiation doses as low as reasonably achievable (ALARA). Individualized dose reduction techniques using automated exposure control or adjustment of mA and/or kV according to the patient''s size were employed. There is generalized age-appropriate atrophy. Periventricular low-attenuation areas are seen consistent with mild chronic ischemic changes. There is no evidence of intracranial hemorrhage or mass. There is no evidence of acute infarct. There is no evidence of shift of the midline structures. No skull abnormality is seen on the bone window images. IMPRESSION: Atrophy and mild periventricular chronic ischemic changes. No acute intracranial abnormality identified. Reviewed, Interpreted and Dictated by Prince Salinas III, MD Transcribed by Frankie Castelan Authenticated and [facility]
--- NOTE | 2022-04-05 15:06 | HMH.EDGENADL ---
Discharge Plan Disposition Patient Disposition: Admitted As Inpatient Condition: Good Clinical Impressions Clinical Impression: Altered mental status Discharge ED Provider: Brian Egan General Adult HPI General Chief complaint: Altered Mental Status Stated complaint: Confused Time Seen by Provider: 04/05/22 14:40 Mode of Arrival: EMS Source of Information: Patient Limitations: No Limitations Description of Symptoms (Recalled from ER Triage Doc. by RN): pt from home, home health nurse found him in the floor and said he had urinated on himself, pt denies falling, stated he slid down, reports weakness, states he was in [place] [facility] last night, pt is able to answer questions appropriately but has some confusion, reports soreness on bottom, ems stated he was laying on his wallet when they got there, pt also reports a productive cough and thinks he has bronchitis, denies sob or chest pain, pt states he hasn't taken medication for several days History of Present Illness HPI narrative: This is an 86-year-old male with history of cystitis, UTIs, hypertension who is presenting with altered mental status. Per EMS, patient lives at home. He was checked on today, was found at home by home health nurse. He states I was put in [facility] last night and I am not sure what for. Currently complaining of right hip pain, but denies falls. Patient has no other complaints at this time. Per home health, patient was found lying on his right hip laying in the floor, denies falling or hitting his head, but was covered in urine on their arrival. Related Data Home Medications Medication Instructions Recorded Confirmed nabumetone 750 mg tablet 750 mg PO BID GERD 11/06/19 11/23/21 pantoprazole 40 mg tablet,delayed 40 mg PO DAILY GERD 11/06/19 11/23/21 release Previous Rx's Medication Instructions Recorded diclofenac sodium 1 % topical gel 4 gm topical TID ##1 11/20/19 tamsulosin 0.4 mg capsule 0.4 mg PO HS ##10 02/29/20 cetirizine 10 mg capsule 10 mg PO DAILY 30 days #30 caps 09/10/20 ketotifen fumarate 0.025 % (0.035 1 drp Eye-Both BID ##1 09/16/20 %) eye drops naproxen 375 mg tablet 375 mg PO BID PRN Moderate Pain 11/04/20 #20 tabs methylprednisolone 4 mg tablets in 4 mg PO DIRECTED 6 days #21 03/31/21 a dose pack packets prednisone 20 mg tablet 20 mg PO BID #10 tabs 06/10/21 cephalexin 500 mg capsule 500 mg PO Q6H 10 days #40 caps 08/08/21 mupirocin 2 % topical ointment 1 applicatio topical TID 7 days #1 08/08/21 g cefdinir 300 mg capsule 300 mg PO BID 7 days #14 caps 10/26/21 methylprednisolone 4 mg tablet 4 mg PO DIRECTED #21 tabs 10/26/21 glycerin (adult) (Fleet Glycerin 1 supp FL DAILY PRN constipation 02/05/22 (Adult) rectal suppository) #12 ea polyethylene glycol 3350 17 17 g PO DAILY PRN constipation 02/05/22 gram/dose oral powder (Miralax) #119 grams Allergies Allergy/AdvReac Type Severity Reaction Status Date / Time No Known Allergies Allergy Verified 03/01/22 15:27 [facility] Disclaimer: The information contained in this section may have been updated after the patient was seen, as this information can be updated by other users. Social History Smoking Status: Never smoker alcohol intake: former substance use type: denies use current occupational status: retired and other Travel in the last 8 weeks: None household members: none housing: apartment ROS Obtained: Yes unobtainable due to mental status Physical Exam General General appearance: alert and in no apparent distress Head Head exam: atraumatic, normocephalic and normal inspection Eye Eye exam: Present normal appearance, PERRL and EOMI ENT ENT exam: Present normal exam, normal oropharynx, mucous membranes moist, TM's normal bilaterally and normal external ear exam Neck Neck exam: Present normal inspection, full ROM and trachea midline; Absent meningismus or lymphadenopat
[2022-04-05 15:15] LABS: Basophils # 0.1 K/mm3 (0-0.2); Basophils % 0.6 % (0.1-2.0); Eosinophils % 0.4 % (0.1-12.0); Hematocrit 47.4 % (42.0-52.0); Hemoglobin 16.8 g/dL (14.1-18.0); Lymphocytes # 1.1 K/mm3 (0.7-4.5); Lymphocytes % 13.9 % (10-50); Mean Corpuscular HGB Conc 35.4 g/dL (31.8-35.4); Mean Corpuscular Hemoglobin 28.6 pg (27.0-31.2); Mean Corpuscular Volume 80.7 fl (80-94); Mean Platelet Volume 9.4 fl (7.4-10.4); Monocytes # 0.5 K/mm3 (0.1-1.0); Monocytes % 5.9 % (1.7-9.3); Neutrophils # 6.5 K/mm3 (1.8-7.8); Neutrophils % 79.3 % (37.0-80.0); Platelet Count 189 K/mm3 (142-424); Red Blood Count 5.87 M/mm3 (4.60-6.20); Red Cell Distribution Width 14.4 % (11.5-17.5); White Blood Count 8.2 K/mm3 (4.8-10.8)
--- NOTE | 2022-04-05 15:19 | PC.NURSE ---
PT TO RADIOLOGY VIA STRETCHER.
[2022-04-05 15:26] LABS: Chloride 107 mmol/L (98-107); Potassium 3.9 mmoL/L (3.5-5.1); Sodium 147 mmol/L (136-145)
[2022-04-05 15:28] LABS: Alanine Aminotransferase 66 U/L (12-78); Aspartate Amino Transferase 118 U/L (17-59); Blood Urea Nitrogen 52 mg/dl (9-20); Creatinine Clearance Estimated 40 mL/min (50-200); Estimated Glomerular Filt Rate 48 ml/min (>60); GFR (African American) 58 ML/MIN (>60)
[2022-04-05 15:29] LABS: Albumin Level 4.4 g/dl (3.5-5.0); Albumin/Globulin Ratio 1.3 (1.1-1.8); Alkaline Phosphatase 88 U/L (38-126); Anion Gap 15.9 mEq/L (5-15); Bilirubin,Total 0.7 mg/dl (0.2-1.3); Calcium 9.8 mg/dl (8.4-10.2); Carbon Dioxide 28 mmol/L (22.0-30.0); Globulin 3.5 g/dL (1.3-3.2); Glucose 113 mg/dl (74-100); Total Protein,Serum 7.9 g/dl (6.3-8.2)
--- NOTE | 2022-04-05 15:35 | PC.NURSE ---
pt returned from radiology via stretcher
--- NOTE | 2022-04-05 15:38 | PC.NURSE ---
PT AWARE OF NEED FOR URINE SAMPLE. PROVIDED HIM WITH URINAL.
[2022-04-05 15:39] LABS: Creatine Kinase 2853 U/L (55-170)
[2022-04-05 15:42] LABS: Troponin I 0.04 ng/ml (0.00-0.034)
[2022-04-05 15:43] LABS: Influenza A, PCR Not Detected (NotDetected); Influenza B, PCR Not Detected (NotDetected)
[2022-04-05 15:46] LABS: T4 (Thyroxine) 7.1 ug/dl (5.53-11.0)
--- NOTE | 2022-04-05 15:50 | ECG_ITS ---
APPROVED REPORT Exam: Resting ECG HR:82 bpm ECG Measurements Heart Rate 82 AXES FL 155 P 83 QRSd 92 QRS 14 QT 379 T 43 QTc 417 Conclusion SINUS RHYTHM WITH OCCASIONAL SUPRAVENTRICULAR PREMATURE COMPLEXES BORDERLINE ECG UNCONFIRMED REPORT Electronically signed by : Jonas Noel MD 04/06/2022 22:20:11
[2022-04-05 16:00] LABS: Thyroid Stimulating Hormone 1.74 uIU/mL (0.465-4.68)
[2022-04-05 16:09] LABS: Microscopic, Urine URINE MICROSCOPIC (MICROSCOPIC)
--- NOTE | 2022-04-05 16:23 | PC.NURSE ---
House aware of patient admission. Tried calling Care management twice with no answer.
[2022-04-05 16:29] LABS: Appearance,Urine CLEAR (Clear); Bilirubin,Urine Negative (Negative); Blood, Urine 3+ (Negative); Color,Urine YELLOW (Yellow); Glucose,Urine (UA) Negative (Negative); Ketones,Urine Negative (Negative); Leukocyte Esterase,Urine 1+ (Negative); Nitrate,Urine Negative (Negative); PH,Urine 5.5 (5.0-8.5); Protein,Urine 2+ (Negative); Specific Gravity, Urine >= 1.030 (1.005-1.030); Urobilinogen,Urine 0.2 EU/dl (0.2)
[2022-04-05 17:01] LABS: Coronavirus 19, PCR Detected (NotDetected)
[2022-04-05 17:03] LABS: Bacteria,Urine 1+ /lpf; Squamous Epithelial Cell,Urine Occasional #/hpf (0-5); Yeast,Urine 3+ /lpf
--- NOTE | 2022-04-05 17:05 | PC.NURSE ---
report given to Amita Snider RN
--- NOTE | 2022-04-05 17:28 | PC.NURSE ---
arrived to floor by stretcher from ED
[2022-04-05 18:56] LABS: Troponin I 0.05 ng/ml (0.00-0.034)
--- NOTE | 2022-04-05 19:27 | PC.NURSE ---
Pt is a poor historian, hindering proper answers to admission questions. Pt is also confused and oriented to person and place. CB in reach and bed alarm in use for safety.
[2022-04-05 20:57] LABS: POC Glucose,Bedside 98 (70-110)
[2022-04-05 22:01] LABS: Troponin I 0.05 ng/ml (0.00-0.034)
--- NOTE | 2022-04-05 23:17 | EXP.HP ---
History of Present Illness *Admission Date: 04/05/22 *Reason for visit:: Fall, weakness, change in mental status *History of present illness: Mr. Burnham is a 86-year-old male with past medical history per chart review is positive for BPH, history of UTI's. He presented to [facility] after being found down in the home by a home health nurse. On admission He had a Creatinine of 1.40 and Total CK was elevated at 2853, he was complaining of right hip pain, right hip imaging showed no acute findings. CT showed no acute intracranial abnormalities. Covid testing was positive. The patient was admitted with initial impression: Rhabdomylosis, COVID and UTI. He was placed on isolation precautions, vitals were stable with no current needs for oxygen, given Fluids and placed on empiric antibiotics. The plan of care was discussed with the patient at bedside. The patient verbalized understanding and agreement with the plan of care. [facility] Disclaimer: The information contained in this section may have been updated after the patient was seen, as this information can be updated by other users. Medical History (Updated 04/05/22 @ 23:28 by Rashel Coffey DNP) BPH (benign prostatic hyperplasia) UTI (urinary tract infection) Social History Smoking Status: Never smoker alcohol intake: former substance use type: denies use current occupational status: retired and other Travel in the last 8 weeks: None household members: none housing: apartment Review of Systems Review of Systems Review of systems:: pertinent systems reviewed and negative unless documented below Constitutional Constitutional: Reports system reviewed and no additional complaints, except as documented Eyes Eyes: Reports system reviewed and no additional complaints, except as documented ENT Ears, Nose, Mouth, and Throat: Reports system reviewed and no additional complaints, except as documented *Cardiovascular Cardiovascular: Reports system reviewed and no additional complaints, except as documented *Respiratory Respiratory: Reports system reviewed and no additional complaints, except as documented *Gastrointestinal Gastrointestinal: Reports system reviewed and no additional complaints, except as documented *Genitourinary Genitourinary: Reports nocturia, Reports urinary frequency and Reports urinary hesitancy *Musculoskeletal Musculoskeletal: Reports muscle weakness and Reports myalgias Comments: Hip Pain Integumentary/Breasts Skin/Breast: Reports system reviewed and no additional complaints, except as documented *Neurologic Neurologic: Reports system reviewed and no additional complaints, except as documented Psychiatric Psychiatric: Reports system reviewed and no additional complaints, except as documented Endocrine Endocrine: Reports system reviewed and no additional complaints, except as documented Hematologic/Lymphatic Hematologic/Lymphatic: Reports system reviewed and no additional complaints, except as documented Allergic/Immunologic Allergic/Immunologic: Reports system reviewed and no additional complaints, except as documented Meds Home Medications and Allergies Home Medications Medication Instructions Recorded Confirmed Type amlodipine 5 mg tablet (Norvasc) 5 mg PO DAILY Hypertension 04/06/22 04/06/22 History aspirin 325 mg tablet,delayed 325 mg PO DAILY Heart health 04/06/22 04/06/22 History release diclofenac sodium 1 % topical gel 2 g topical Q6HP PRN Pain 04/06/22 04/06/22 History diltiazem HCl 360 mg 360 mg PO DAILY Hypertension 04/06/22 04/06/22 History tablet,extended release 24 hr finasteride 5 mg tablet (Proscar) 5 mg PO DAILY Prostate 04/06/22 04/06/22 History omeprazole 20 mg tablet,delayed 40 mg PO BID Acid reflux 04/06/22 04/06/22 History release rosuvastatin 10 mg tablet (Crestor) 5 mg PO HS Cholesterol 04/06/22 04/06/22 History tamsulosin 0.4 mg capsu
[2022-04-05 23:57] LABS: Creatine Kinase 1600 U/L (55-170)
[2022-04-06] VITALS (8 sets, daily range): BP systolic 117–154; BP diastolic 72–86; PULSE 64–120; RESP 17–20; TEMP 36.4–36.8; O2SAT 94–97; BMI 24.3
--- NOTE | 2022-04-06 03:08 | PC.NURSE ---
Pt laying in bed at this time, safety alarm is on. Pt has been alert and oriented x 2, has a castaneda, but still tries to get up to urinate. Pt is redirectable. IV in LAC is patent, no s/sx of infection at site. Pt has been up to bedside toilet had a BM. Lungs have been clear but diminished this morning, resp even and non labored. Pt has been educated on Plan of care, and scheduled medications. Encouraged pt to report any needs, bed in low position, side rails up x 2, call light in reach.
[2022-04-06 07:05] LABS: Chloride 110 mmol/L (98-107); Potassium 3.3 mmoL/L (3.5-5.1); Sodium 143 mmol/L (136-145)
[2022-04-06 07:06] LABS: Basophils % 0.5 % (0.1-2.0); Eosinophils % 0.2 % (0.1-12.0); Hematocrit 36.8 % (42.0-52.0); Lymphocytes # 1.8 K/mm3 (0.7-4.5); Lymphocytes % 21.3 % (10-50); Mean Corpuscular HGB Conc 35.2 g/dL (31.8-35.4); Mean Corpuscular Hemoglobin 28.3 pg (27.0-31.2); Mean Corpuscular Volume 80.2 fl (80-94); Mean Platelet Volume 8.8 fl (7.4-10.4); Monocytes # 0.5 K/mm3 (0.1-1.0); Monocytes % 6.2 % (1.7-9.3); Neutrophils # 6.1 K/mm3 (1.8-7.8); Neutrophils % 71.9 % (37.0-80.0); Platelet Count 155 K/mm3 (142-424); Red Blood Count 4.59 M/mm3 (4.60-6.20); Red Cell Distribution Width 14.2 % (11.5-17.5); White Blood Count 8.5 K/mm3 (4.8-10.8)
[2022-04-06 07:07] LABS: Alanine Aminotransferase 47 U/L (12-78); Aspartate Amino Transferase 80 U/L (17-59); Blood Urea Nitrogen 41 mg/dl (9-20); Creatinine Clearance Estimated 43 mL/min (50-200); Estimated Glomerular Filt Rate 57 ml/min (>60); GFR (African American) 69 ML/MIN (>60)
[2022-04-06 07:08] LABS: Albumin Level 3.2 g/dl (3.5-5.0); Albumin/Globulin Ratio 1.3 (1.1-1.8); Alkaline Phosphatase 63 U/L (38-126); Anion Gap 6.3 mEq/L (5-15); Bilirubin,Total 0.4 mg/dl (0.2-1.3); Calcium 8.7 mg/dl (8.4-10.2); Carbon Dioxide 30 mmol/L (22.0-30.0); Creatine Kinase 1332 U/L (55-170); Globulin 2.5 g/dL (1.3-3.2); Glucose 81 mg/dl (74-100); Magnesium 2.5 mg/dl (1.6-2.3); Total Protein,Serum 5.7 g/dl (6.3-8.2)
--- NOTE | 2022-04-06 09:50 | HMH.PTEV ---
Physical Therapy Evaluation Rehab PT IP Evaluation Start: 04/06/22 08:11 Freq: ONCE Status: Active Protocol: Document 04/06/22 09:46 PHORNE (Rec: 04/06/22 09:49 PHORNE [id number]) Subjective/History History History 86 yoaam adm to [facility] with YAMINI, rhabdo, COVID-19+. He reports he lives at [facility] in a ground level apt and uses a cane or a walker for all mobility. He is mildly confused this am, but pleasantly so. Subjective Subjective No c/o this am, remains confused. Rehab PT IP Eval Objective Appearance Patient Behavior Appropriate Patient Orientation Person Difficulty following instructions none Speech Pattern Clear Ambulation Patient Able to Ambulate Yes Ambulation Observation IP General Gait Pattern Observation Wide Based Gait Ambulation Distance (feet) 20 Ambulation Assistive Device None Ambulation Ability Contact Guard/Hand Hold Balance Ability to Arise Able, uses arms to help Sitting Balance Steady, safe Standing Balance Steady, wide stance Dynamic Sitting Balance Ability Good Dynamic Standing Balance Ability Fair Transfers Bed Transfer Ability Contact Guard/Hand Hold Chair Transfer Ability Contact Guard/Hand Hold Sit to Stand Bed Transfer Ability Contact Guard/Hand Hold Sit to Stand Chair Transfer Ability Contact Guard/Hand Hold ROM All Extremities PT ROM Status WFL MMT All Extremities PT MMT WFL Rehab PT IP prob,goals,plan Problems Date of Evaluation: 04/06/22 PT IP Problems Bed Mobility,Transfers,Gait Rehab Potential Rehab Potential Good Plan PT Intervention Plan Bed Mobility,Transfers,Gait, Therapeutic Exercise PT Plan Frequency BID Duration LOS Discharge Goals Bed Transfer Ability Supervision/Stand by Sit to Stand Chair Transfer Ability Supervision/Stand by Ambulation Assistive Device Rolling Walker Ambulation Distance (feet) 25 Discharge Plan PT Discharge Plan Pt is currently most appropriate for rehab placement, but may be able to return home if is mental status and confusion were to improve. G -code Required No Eval Complexity Eval Charge Codes 69890 - Moder
--- NOTE | 2022-04-06 10:07 | HMH.PHAINT1 ---
Pharmacy Intervention Comments: [facility] contacted to [facility]
--- NOTE | 2022-04-06 10:51 | HMH.OTEV ---
OT Inpatient Evaluation Rehab OT IP Evaluation Start: 04/06/22 08:11 Freq: ONCE Status: Active Protocol: Document 04/06/22 10:42 FAITH (Rec: 04/06/22 10:50 FAITH [id number]) Rehab OT IP Assessment Subjective History Mr. Burnham is a 86-year-old male with past medical history per chart review is positive for BPH, history of UTI's. He presented to [facility] after being found down in the home by a home health nurse. On admission He had a Creatinine of 1.40 and Total CK was elevated at 2853, he was complaining of right hip pain, right hip imaging showed no acute findings. CT showed no acute intracranial abnormalities. Covid testing was positive. The patient was admitted with initial impression: Rhabdomylosis, COVID and UTI. He was placed on isolation precautions, vitals were stable with no current needs for oxygen, given Fluids and placed on empiric antibiotics. The plan of care was discussed with the patient at bedside. The patient verbalized understanding and agreement with the plan of care. I don't know my name. I don't have a name. Patient lives in [facility] which are 1 story apartments with no ALEX or inside of home. Independent with ADLs and fx'l mobility per patient. Patient is a poor historian. Subjective Assisted Patient to complete supine->sit @ EOB->sit->stand with RW and to ambulate up to 20ft within environment. Patient required CGA to complete all tasks. Objective Upper Extremity Gross ROM WFL Bed Mobility bed mobility - supine/sit
--- NOTE | 2022-04-06 15:49 | PC.NURSE ---
pt has done well this shift, pt alert to person, place, and month, unable to identify the year. RA tolerating well. bed alarm in place. castaneda cath removed, tolerated well. adequate uop. cb and personal items within reach.
--- NOTE | 2022-04-06 19:48 | EXP.PN ---
Subjective *Date: 04/06/22 *Time: 19:48 Interval history: No acute events overnight, patient reports overall feeling well this morning. Exam Data for Last 24 hours Vital signs and Labs for Last 24 Hours: Temp Pulse Resp BP Pulse Ox 98.3 F 68 18 121/72 94 L 04/06/22 16:00 04/06/22 16:00 04/06/22 16:00 04/06/22 16:00 04/06/22 16:00 Laboratory Results - last 24 hr 04/05/22 16:00: Urine Color Yellow, Urine Appearance Clear, Urine pH 5.5, Ur Specific [place] >= 1.030, Urine Protein 2+, Urine Glucose (UA) Negative, Urine Ketones Negative, Urine Blood 3+, Urine Nitrate Negative, Urine Bilirubin Negative, Urine Urobilinogen 0.2, Ur Leukocyte Esterase 1+ A, Urine RBC 3-5, Urine WBC 10-20, Ur Squamous Epith Cells Occasional, Urine Bacteria 1+, Urine Yeast 3+ 04/05/22 19:57: POC Glucose 98 04/05/22 21:33: Troponin I 0.05 H 04/05/22 23:43: Total Creatine Kinase 1600 H* D 04/06/22 06:37: WBC 8.5, RBC 4.59 L, Hgb 13.0 L D, Hct 36.8 L, MCV 80.2, MCH 28.3, MCHC 35.2, RDW 14.2, Plt Count 155, MPV 8.8, Neut % (Auto) 71.9, Lymph % (Auto) 21.3, [place] % (Auto) 6.2, Eos % (Auto) 0.2, Baso % (Auto) 0.5, Neut # (Auto) 6.1, Lymph # (Auto) 1.8, [place] # (Auto) 0.5, Eos # (Auto) 0.0, Baso # (Auto) 0.0 04/06/22 06:37: Sodium 143, Potassium 3.3 L, Chloride 110 H, Carbon Dioxide 30, Anion Gap 6.3, BUN 41 H, Creatinine 1.20, Estimated Creat Clear 43, Estimated GFR 57 L, Est GFR ( Amer) 69, Glucose 81 D, Calcium 8.7, Magnesium 2.5 H, Total Bilirubin 0.4, AST 80 H D, ALT 47 D, Alkaline Phosphatase 63, Total Creatine Kinase 1332 H*, Total Protein 5.7 L D, Albumin 3.2 L D, Globulin 2.5, Albumin/Globulin Ratio 1.3 I & O for Last 24 hours: Intake & Output 04/03/22 04/04/22 04/05/22 04/06/22 23:59 23:59 23:59 23:59 Intake Total 1685 / 1685 Output Total 300 / 600 700 / 700 Balance -300 / -600 985 / 985 Weight 66.678 kg 68.629 kg Microbiology Reports for the Last 24 Hours: Microbiology 04/05/22 16:00 Urine,Clean Catch Urine Culture - Preliminary Gram Negative Rods Constitutional Constitutional: no acute distress, average body habitus and cooperative *Routine HEENT Exam Head: Present normocephalic and atraumatic Eye: Present EOMI and PERRL ENT: Present mucous membranes dry and oropharynx clear *Routine Neck Exam Neck: Present supple and full ROM *Routine Respiratory Exam Respiratory: Present CTA bilaterally; Absent accessory muscle use or respiratory distress *Routine Cardiovascular Exam Cardiovascular: Present RRR, Normal S1 and Normal S2; Absent murmur *Routine Abdominal Exam Abdominal: Present soft and normoactive bowel sounds; Absent tenderness, distended, rebound or guarding *Routine Extremities Exam Extremities: Present full ROM, pulses intact and normal capillary refill; Absent edema or tenderness *Routine Neurological Exam Neurological: Present alert, CN II-XII intact, moving all extremities, normal tone and normal speech; Absent oriented X3 (Oriented to name and place not date), sensory deficit, motor deficit or hearing grossly intact Routine Psychiatric Exam Psychiatric: Present normal affect, normal thought process and cooperative; Absent good insight, depressed or anxious Assessment and Plan *Assessment and plan (1) Rhabdomyolysis: Status: Acute Category: Medical Code(s): M62.82 - Rhabdomyolysis (2) COVID: Status: Acute Category: Medical Code(s): U07.1 - COVID-19 (3) UTI (urinary tract infection): Status: Acute Category: Medical Code(s): N39.0 - Urinary tract infection, site not specified (4) BPH (benign prostatic hyperplasia): Status: Acute Category: Medical Code(s): N40.0 - Benign prostatic hyperplasia without lower urinary tract symptoms Plan 86-year-old male with past medical history of BPH, history of UTI's found down in the home by Home Health, slightly confused, found to be positive for COVID,
--- NOTE | 2022-04-07 03:49 | PC.NURSE ---
Pt in bed resting , has been up to bedside toilet during this shift. Pt lungs has been clear but diminished. IV is patent. Pt has been more oriented this shift. Has denied any pain. Pt has been compliant with Plan of care. Pt educated on medication regimen. Encouraged pt to use call light for needs. Bed is locked in low position, side rails up x 2, call light in reach, safety alarm on.
[2022-04-07 03:50] VITALS: BP 146/77; PULSE 62; RESP 18; TEMP 36.9; O2SAT 99
[2022-04-07 04:00] VITALS: PULSE 60; BMI 24.9
[2022-04-07 07:41] LABS: Basophils % 0.6 % (0.1-2.0); Eosinophils # 0.1 K/mm3 (0.0-0.4); Eosinophils % 2.4 % (0.1-12.0); Hematocrit 35.8 % (42.0-52.0); Hemoglobin 12.3 g/dL (14.1-18.0); Lymphocytes # 1.6 K/mm3 (0.7-4.5); Lymphocytes % 30.7 % (10-50); Mean Corpuscular HGB Conc 34.2 g/dL (31.8-35.4); Mean Corpuscular Hemoglobin 28.4 pg (27.0-31.2); Mean Platelet Volume 8.7 fl (7.4-10.4); Monocytes # 0.4 K/mm3 (0.1-1.0); Monocytes % 7.7 % (1.7-9.3); Neutrophils # 3.1 K/mm3 (1.8-7.8); Neutrophils % 58.7 % (37.0-80.0); Platelet Count 142 K/mm3 (142-424); Red Blood Count 4.31 M/mm3 (4.60-6.20); Red Cell Distribution Width 14.6 % (11.5-17.5); White Blood Count 5.2 K/mm3 (4.8-10.8)
[2022-04-07 07:45] LABS: Chloride 113 mmol/L (98-107); Potassium 3.3 mmoL/L (3.5-5.1); Sodium 145 mmol/L (136-145)
[2022-04-07 07:48] LABS: Alanine Aminotransferase 46 U/L (12-78); Albumin Level 3.3 g/dl (3.5-5.0); Albumin/Globulin Ratio 1.3 (1.1-1.8); Alkaline Phosphatase 66 U/L (38-126); Anion Gap 7.3 mEq/L (5-15); Aspartate Amino Transferase 64 U/L (17-59); Bilirubin,Total 0.4 mg/dl (0.2-1.3); Blood Urea Nitrogen 23 mg/dl (9-20); Calcium 8.6 mg/dl (8.4-10.2); Carbon Dioxide 28 mmol/L (22.0-30.0); Creatine Kinase 713 U/L (55-170); Creatinine Clearance Estimated 53 mL/min (50-200); Estimated Glomerular Filt Rate 71 ml/min (>60); GFR (African American) 86 ML/MIN (>60); Globulin 2.5 g/dL (1.3-3.2); Glucose 97 mg/dl (74-100); Total Protein,Serum 5.8 g/dl (6.3-8.2)
[2022-04-07 08:00] VITALS: BP 147/72; PULSE 57; PULSE 74; RESP 16; TEMP 36.7; O2SAT 97
--- NOTE | 2022-04-07 10:26 | PC.NURSE ---
Courtesy tech round:pt sitting up in bed with no requests at this time. Call light is within reach.
--- NOTE | 2022-04-07 11:38 | SW/DCPLANNER ---
Addendum entered by Tawana Wan 04/08/22 10:59: Patient will discharge to [facility] today SNF level of care. I have called and updated patient's family. Addendum entered by Tawana Wan 04/07/22 15:17: This patient has been accepted to [facility] in [place] SNF level of care for tomorrow. I will update MD and patient's family. Original Note: I called and spoke with patient's daughter (Saranya) regarding plans once medically stable for discharge. Saranya stated that she does not currently have a vehicle to visit with this patient but does talk to him on the phone often. Saranya stated that she has talked with her father in the past week and he was alert and oriented. I discussed the need for SNF level of care at time of discharge and daughter is agreeable. Daughter is willing to assist with paperwork for this patient (as long as it can be emailed due to not having a working car at this time). Due to patient being COVID positive patient information has been faxed to Iraida sanchez/ [facility]. I will follow up with Iraida once patient information is reviewed. Discharge date is unknown at this time.
--- NOTE | 2022-04-07 11:53 | PC.NURSE ---
PATIENT SITTING UP IN CHAIR. SAFETY CLIP APPLIED TO RIGHT SHOULDER. PATIENT REQUESTED SOFT DRINK; PEPSI PROVIDED.
[2022-04-07 12:00] VITALS: BP 139/71; PULSE 58; RESP 16; TEMP 37.1; O2SAT 99
--- NOTE | 2022-04-07 14:41 | EXP.PN ---
Subjective *Date: 04/07/22 *Time: 14:41 Interval history: No acute events overnight. Patient denies any pain, discomfort, or shortness of breath this morning. Exam Data for Last 24 hours Vital signs and Labs for Last 24 Hours: Temp Pulse Resp BP Pulse Ox 98.8 F 58 L 16 139/71 99 04/07/22 12:00 04/07/22 12:00 04/07/22 12:00 04/07/22 12:00 04/07/22 12:00 Laboratory Results - last 24 hr 04/07/22 07:36: WBC 5.2 D, RBC 4.31 L, Hgb 12.3 L, Hct 35.8 L, MCV 83.0, MCH 28.4, MCHC 34.2, RDW 14.6, Plt Count 142, MPV 8.7, Neut % (Auto) 58.7, Lymph % (Auto) 30.7, [place] % (Auto) 7.7, Eos % (Auto) 2.4, Baso % (Auto) 0.6, Neut # (Auto) 3.1, Lymph # (Auto) 1.6, [place] # (Auto) 0.4, Eos # (Auto) 0.1, Baso # (Auto) 0.0 04/07/22 07:36: Sodium 145, Potassium 3.3 L, Chloride 113 H, Carbon Dioxide 28, Anion Gap 7.3, BUN 23 H D, Creatinine 1.00, Estimated Creat Clear 53, Estimated GFR 71, Est GFR ( Amer) 86 D, Glucose 97, Calcium 8.6, Total Bilirubin 0.4, AST 64 H, ALT 46, Alkaline Phosphatase 66, Total Creatine Kinase 713 H* D, Total Protein 5.8 L, Albumin 3.3 L, Globulin 2.5, Albumin/Globulin Ratio 1.3 I & O for Last 24 hours: Intake & Output 04/04/22 04/05/22 04/06/22 04/07/22 23:59 23:59 23:59 23:59 Intake Total 1685 / 1685 720 / 720 Output Total 300 / 600 820 / 820 500 / 500 Balance -300 / -600 865 / 865 220 / 220 Weight 66.678 kg 68.629 kg 70.364 kg Microbiology Reports for the Last 24 Hours: Microbiology 04/05/22 16:00 Urine,Clean Catch Urine Culture - Final Escherichia coli Constitutional Constitutional: no acute distress, average body habitus, chronically ill appearing and cooperative *Routine HEENT Exam Head: Present normocephalic and atraumatic Eye: Present EOMI and PERRL ENT: Present mucous membranes dry and oropharynx clear *Routine Neck Exam Neck: Present supple and full ROM *Routine Respiratory Exam Respiratory: Present CTA bilaterally and able to speak in complete sentences; Absent accessory muscle use or respiratory distress *Routine Cardiovascular Exam Cardiovascular: Present RRR, Normal S1 and Normal S2; Absent murmur *Routine Abdominal Exam Abdominal: Present soft and normoactive bowel sounds; Absent tenderness, distended, rebound or guarding *Routine Extremities Exam Extremities: Present full ROM, pulses intact and normal capillary refill; Absent edema or tenderness *Routine Neurological Exam Neurological: Present alert, CN II-XII intact, altered mental status, moving all extremities, normal tone and normal speech; Absent oriented X3 (Oriented to name and place not date), sensory deficit, motor deficit or hearing grossly intact Routine Psychiatric Exam Psychiatric: Present normal affect, normal thought process and cooperative; Absent good insight, depressed or anxious Assessment and Plan *Assessment and plan (1) Rhabdomyolysis: Status: Acute Category: Medical Code(s): M62.82 - Rhabdomyolysis (2) COVID: Status: Acute Category: Medical Code(s): U07.1 - COVID-19 (3) UTI (urinary tract infection): Status: Acute Category: Medical Code(s): N39.0 - Urinary tract infection, site not specified (4) BPH (benign prostatic hyperplasia): Status: Acute Category: Medical Code(s): N40.0 - Benign prostatic hyperplasia without lower urinary tract symptoms (5) Dementia: Status: Acute Category: Medical Code(s): F03.90 - Unspecified dementia, unspecified severity, without behavioral disturbance, psychotic disturbance, mood disturbance, and anxiety Plan 86-year-old male with past medical history of BPH, history of UTI's found down in the home by Home Health, slightly confused, found to be positive for COVID, have elevated creatinine and CK concerning with fall for Rhabdomylosis //Rhabdomylosis - CK 2,853 -> 1,600 -> 1,332 -> 713. - Cont NS @ 125 mL/hr //YAMINI - Cr 1.4 -> 1.2
[2022-04-07 16:00] VITALS: BP 140/76; PULSE 56; RESP 18; TEMP 36.9; O2SAT 98
--- NOTE | 2022-04-07 17:07 | PC.NURSE ---
NO ACUTE CHANGES. PT ALERT TO PERSON AND PLACE ONLY. LUNGS DIM IN BILAT LOWER LOBES. DENIES SOA. NON-PRODUCTIVE COUGH NOTED. ABDOMEN SOFT, NON-TENDER W/ ACTIVE BS IN ALL QUADS. PT HAD MULTIPLE SMALL BM'S THIS SHIFT, UNABLE TO GET A STOOL SAMPLE FOR DIARRHEA PANEL. SKIN C/D/I. PT'S BALANCE IS OFF, BED ALARM IN PLACE. REQUIRES STANDBY ASSISTANCE W/ AMBULATION TO ENSURE SAFETY. PT SAT IN RECLINER PERIODICALLY TODAY, TOLERATING ACTIVITY WELL. NO COMPLAINTS VOICED. CALL TRICIA W/IN REACH.
[2022-04-07 20:00] VITALS: BP 130/71; PULSE 63; RESP 20; TEMP 37.2; O2SAT 96
--- NOTE | 2022-04-08 03:41 | PC.NURSE ---
Pt laying in bed resting with eyes closed, Has been A/O X 2. Lungs had wheezes bilat this morning, a non productive cough. Pt has been up to bedside toilet and used urinal this shift. Has denied any pain. Pt has been educated on scheduled medications and plan of care. Pt has been educated on use of call light. Pt does not ask for assistance. Bed is locked in low postion, side rails up x 2, safety alarm is on, call light in reach.
[2022-04-08 04:00] VITALS: BP 151/80; PULSE 67; RESP 16; TEMP 37.1; O2SAT 94; BMI 25.3
[2022-04-08 07:12] LABS: Basophils % 0.6 % (0.1-2.0); Eosinophils # 0.2 K/mm3 (0.0-0.4); Eosinophils % 4.1 % (0.1-12.0); Hemoglobin 11.5 g/dL (14.1-18.0); Lymphocytes # 1.5 K/mm3 (0.7-4.5); Lymphocytes % 28.9 % (10-50); Mean Corpuscular HGB Conc 33.9 g/dL (31.8-35.4); Mean Corpuscular Hemoglobin 28.5 pg (27.0-31.2); Mean Corpuscular Volume 84.2 fl (80-94); Mean Platelet Volume 8.4 fl (7.4-10.4); Monocytes # 0.5 K/mm3 (0.1-1.0); Monocytes % 9.3 % (1.7-9.3); Neutrophils # 2.9 K/mm3 (1.8-7.8); Neutrophils % 57.2 % (37.0-80.0); Platelet Count 144 K/mm3 (142-424); Red Blood Count 4.04 M/mm3 (4.60-6.20); Red Cell Distribution Width 14.6 % (11.5-17.5); White Blood Count 5.1 K/mm3 (4.8-10.8)
[2022-04-08 07:20] LABS: Chloride 111 mmol/L (98-107); Potassium 3.4 mmoL/L (3.5-5.1); Sodium 141 mmol/L (136-145)
[2022-04-08 07:23] LABS: Alanine Aminotransferase 41 U/L (12-78); Albumin/Globulin Ratio 1.2 (1.1-1.8); Alkaline Phosphatase 64 U/L (38-126); Anion Gap 5.4 mEq/L (5-15); Aspartate Amino Transferase 51 U/L (17-59); Bilirubin,Total 0.4 mg/dl (0.2-1.3); Blood Urea Nitrogen 18 mg/dl (9-20); Calcium 8.1 mg/dl (8.4-10.2); Carbon Dioxide 28 mmol/L (22.0-30.0); Creatine Kinase 391 U/L (55-170); Creatinine Clearance Estimated 54 mL/min (50-200); Estimated Glomerular Filt Rate 80 ml/min (>60); GFR (African American) 97 ML/MIN (>60); Globulin 2.5 g/dL (1.3-3.2); Glucose 99 mg/dl (74-100); Total Protein,Serum 5.5 g/dl (6.3-8.2)
[2022-04-08 08:00] VITALS: BP 154/95; PULSE 62; RESP 17; TEMP 37.1; O2SAT 96
--- NOTE | 2022-04-08 10:01 | EXP.DC.SUM ---
General Admission date:: 04/05/22 Discharge date: 04/08/22 HPI HPI HPI: Mr. Burnham is a 86-year-old male with past medical history per chart review is positive for BPH, history of UTI's. He presented to [facility] after being found down in the home by a home health nurse. On admission He had a Creatinine of 1.40 and Total CK was elevated at 2853, he was complaining of right hip pain, right hip imaging showed no acute findings. CT showed no acute intracranial abnormalities. Covid testing was positive. The patient was admitted with initial impression: Rhabdomylosis, COVID and UTI. He was placed on isolation precautions, vitals were stable with no current needs for oxygen, given Fluids and placed on empiric antibiotics. The plan of care was discussed with the patient at bedside. The patient verbalized understanding and agreement with the plan of care. Hospital Course Hospital Course Hospital Course: Patient is an 86-year-old male with past medical history of mild to moderate dementia and BPH who lives at a senior apartment facility, and lives independently who was found down in his home by a home health nurse for an unknown period of time. On arrival patient was found to have rhabdomyolysis with a creatinine kinase of 2853, UA compatible with infection, and creatinine of 1.2. Patient was also incidentally found to be positive for COVID. He has no respiratory symptoms and has not required any supplemental oxygen. Patient was treated with normal saline at 125 mL an hour and CK gradually improved and is 391 today. Creatinine also improved and is 0.9 today. UTI was treated with Rocephin IV for 4 days. Urine culture was positive for pansensitive E. coli, patient will continue Keflex twice daily for 3 days. Patient exhibited a significant amount of confusion while admitted to the hospital. He occasionally would stand up and urinate and defecate on the floor, he does not know the year or the month, he intermittently knows what city he is in, he cannot remember what happened the day prior. Patient's daughter Saranya was contacted and she is agreeable to patient being placed at [facility]. Exam Data for Last 24 hours Vital signs and Labs for Last 24 Hours: Temp Pulse Resp BP Pulse Ox 98.8 F 62 17 154/95 H 96 04/08/22 08:00 04/08/22 08:00 04/08/22 08:00 04/08/22 08:00 04/08/22 08:00 Laboratory Results - last 24 hr 04/08/22 07:05: WBC 5.1, RBC 4.04 L, Hgb 11.5 L, Hct 34.0 L, MCV 84.2, MCH 28.5, MCHC 33.9, RDW 14.6, Plt Count 144, MPV 8.4, Neut % (Auto) 57.2, Lymph % (Auto) 28.9, [place] % (Auto) 9.3, Eos % (Auto) 4.1, Baso % (Auto) 0.6, Neut # (Auto) 2.9, Lymph # (Auto) 1.5, [place] # (Auto) 0.5, Eos # (Auto) 0.2, Baso # (Auto) 0.0 04/08/22 07:05: Sodium 141, Potassium 3.4 L, Chloride 111 H, Carbon Dioxide 28, Anion Gap 5.4, BUN 18, Creatinine 0.90, Estimated Creat Clear 54, Estimated GFR 80, Est GFR ( Amer) 97, Glucose 99, Calcium 8.1 L, Total Bilirubin 0.4, AST 51, ALT 41, Alkaline Phosphatase 64, Total Creatine Kinase 391 H D, Total Protein 5.5 L, Albumin 3.0 L, Globulin 2.5, Albumin/Globulin Ratio 1.2 I & O for Last 24 hours: Intake & Output 04/05/22 04/06/22 04/07/22 04/08/22 23:59 23:59 23:59 23:59 Intake Total 1685 / 1685 1200 / 1260 1148 / 1148 Output Total 300 / 600 820 / 820 900 / 900 1250 / 1250 Balance -300 / -600 865 / 865 300 / 360 -102 / -102 Weight 66.678 kg 68.629 kg 70.364 kg 71.6 kg Microbiology Reports for the Last 24 Hours: Microbiology 04/05/22 16:00 Urine,Clean Catch Urine Culture - Final Escherichia coli Constitutional Constitutional: no acute distress, average body habitus, chronically ill appearing and cooperative *Routine HEENT Exam Head: Present normocephalic and atraumatic Eye: Present EOMI and PERRL ENT: Present mucous membranes moist and oropharynx clear *Routine Neck Exam Neck: Present supple and full ROM *R
--- NOTE | 2022-04-08 11:22 | PC.NURSE ---
Addendum entered by Abril Persaud RN 04/08/22 12:10: REPORT GIVEN TO DILIP GRAMAJO Original Note: CALLED REPORT TO [facility]. CALLED [facility], WAITING FOR KILN OPERATOR
--- NOTE | 2022-04-09 13:50 | CARE MANAGER ---
Spoke with nurse at [facility], patient is doing well and has no complaints at this time.
== END 2022-04-08 12:11 | DRG 557 ==
LOC: ER 15:08 → 2ND 16:33
PROVIDERS: Nurse Practitioner Family; Admitting Provider Internal Medicine Adolescent Medicine; Emergency Provider Emergency Medicine; Visit Provider Emergency Medicine
DX: M62.82 Rhabdomyolysis (principal); U07.1 COVID-19; N17.9 Acute kidney failure, unspecified; N39.0 Urinary tract infection, site not specified; F03.918 Unspecified dementia, unspecified severity, with other behavioral disturbance; N40.0 Benign prostatic hyperplasia without lower urinary tract symptoms; Z79.899 Other long term (current) drug therapy; I10 Essential (primary) hypertension; F03.90 Unspecified dementia, unspecified severity, without behavioral disturbance, psychotic disturbance, mood disturbance, and anxiety
CPT/HCPCS: 36415; 51702; 70450; 71045; 73502; 80053; 81001; 82550; 82962; 83735; 84436; 84443; 84484; 85025; 87086; 87088; 87186; 93005; 97110; 97162; 97165; 97530; 99285; C9803; J0696; U0003; U0005

== ENCOUNTER 2022-07-06 09:17 | Emergency (ER) | payer MEDICARE, OTHER, SELFPAY ==
[2022-07-06 09:18] VITALS: BP 143/83; PULSE 75; RESP 20; TEMP 36.5; O2SAT 97; BMI 28.3
--- NOTE | 2022-07-06 09:37 | EXP.UTC ---
Discharge Plan Disposition Patient Disposition: Home, Self-Care Condition: Good Prescriptions Prescriptions: New methylprednisolone 4 mg Tablets,Dose Pack 4 mg PO DIRECTED Qty: 21 0RF No Action tamsulosin [Flomax] 0.4 mg Capsule 0.8 mg PO HS carvedilol 6.25 mg Tablet 6.25 mg PO BID Qty: 60 0RF polyethylene glycol 3350 [Miralax] 17 gram Powder In Packet 17 g PO DAILYP PRN (Reason: constipation) Qty: 30 0RF potassium chloride 20 mEq Tablet,Er Particles/Crystals 20 meq PO DAILY Qty: 30 0RF amlodipine [Norvasc] 5 mg Tablet 5 mg PO DAILY Qty: 30 0RF aspirin 325 mg Tablet,Delayed Release (Dr/Ec) 325 mg PO DAILY Qty: 30 0RF finasteride [Proscar] 5 mg Tablet 5 mg PO DAILY Qty: 30 0RF diltiazem HCl 360 mg Tablet Extended Release 24 Hr 360 mg PO DAILY Qty: 30 0RF rosuvastatin [Crestor] 10 mg Tablet 5 mg PO HS Qty: 30 0RF diclofenac sodium 1 % Gel 2 g TOPICAL Q6HP PRN (Reason: Pain) Qty: 100 0RF Rx Instructions: apply to both knees as needed omeprazole 20 mg Tablet,Delayed Release (Dr/Ec) 40 mg PO BID MDD Acid rflux Qty: 30 0RF cephalexin 500 mg capsule 500 mg PO BID 3 Days Qty: 6 0RF Referrals Follow up/Referrals: Provider,Referral, MD [Primary Care Provider] - See instructions Activity Restrictions/Add. Instructions Additional Instructions/Restrictions: Rest the extremity, Elevate the extremity as tolerated while you are resting. Take the medication as directed. Follow up with Dr. Bernal (orthopedics). I put in a referral but you need to call his office and schedule an appointment. Follow up with your regular doctor. GO TO THE ER FOR ANY WORSENING SYMPTOMS Clinical Impressions Clinical Impression: Osteoarthritis of knees, bilateral Instructions Patient Instructions: Osteoarthritis, DI for Osteoarthritis Discharge ED Provider: Anthony Tompkins [facility] General Stated complaint: Knee pain both knees no accident Time Seen by Provider: 07/06/22 09:36 History of Present Illness Provider Complaint: He c/o chronic bilateral knee pain that has worsened over the past few days due to him walking more than usual. He request steroids to help his arthritis. He denies other complaints. Related Data Home Medications Medication Instructions Recorded Confirmed tamsulosin 0.4 mg capsule (Flomax) 0.8 mg PO HS Prostate 04/06/22 04/06/22 Previous Rx's Medication Instructions Recorded amlodipine 5 mg tablet (Norvasc) 5 mg PO DAILY Hypertension #30 tabs 04/08/22 aspirin 325 mg tablet,delayed 325 mg PO DAILY Heart health #30 04/08/22 release tabs carvedilol 6.25 mg tablet 6.25 mg PO BID #60 tabs 04/08/22 cephalexin 500 mg capsule 500 mg PO BID 3 days #6 caps 04/08/22 diclofenac sodium 1 % topical gel 2 g topical Q6HP PRN Pain #100 04/08/22 grams diltiazem HCl 360 mg 360 mg PO DAILY Hypertension #30 04/08/22 tablet,extended release 24 hr tabs finasteride 5 mg tablet (Proscar) 5 mg PO DAILY Prostate #30 tabs 04/08/22 omeprazole 20 mg tablet,delayed 40 mg PO BID Acid reflux #30 tabs 04/08/22 release polyethylene glycol 3350 17 gram 17 g PO DAILYP PRN constipation 04/08/22 oral powder packet (Miralax) #30 ea potassium chloride 20 mEq 20 meq PO DAILY #30 tabs 04/08/22 tablet,extended release(part/cryst) rosuvastatin 10 mg tablet (Crestor) 5 mg PO HS Cholesterol #30 tabs 04/08/22 methylprednisolone 4 mg tablets in 4 mg PO DIRECTED #21 tabs 07/06/22 a dose pack Allergies Allergy/AdvReac Type Severity Reaction Status Date / Time No Known Allergies Allergy Verified 07/06/22 10:06 [facility] Disclaimer: The information contained in this section may have been updated after the patient was seen, as this information can be updated by other users. Medical History BPH (benign prostatic hyperplasia) UTI (urinary tract infection) Social History (Reviewed 07/06/22
[2022-07-06 11:13] VITALS: BP 143/86; PULSE 75; RESP 20; TEMP 36.5; O2SAT 97
== END 2022-07-06 11:13 | disposition home or self-care (01) ==
PROVIDERS: Emergency Provider Nurse Practitioner Family
DX: M17.0 Bilateral primary osteoarthritis of knee (principal)
CPT/HCPCS: 99212; 99214; G0463

== ENCOUNTER 2022-08-01 09:35 | Emergency (ER) | payer MEDICARE, OTHER, SELFPAY ==
[2022-08-01 09:40] VITALS: BP 135/75; PULSE 77; RESP 18; TEMP 36.8; O2SAT 98; BMI 24.2
--- NOTE | 2022-08-01 09:59 | EXP.UTC ---
Discharge Plan Disposition Patient Disposition: Home, Self-Care Condition: Good Prescriptions Prescriptions: New polyethylene glycol 3350 [Miralax] 17 gram powder in packet 17 g PO DAILY Qty: 30 0RF glycerin (adult) [Fleet Glycerin (Adult)] Suppository 1 supp [place] DAILY PRN (Reason: constipation) Qty: 12 0RF No Action tamsulosin [Flomax] 0.4 mg Capsule 0.8 mg PO HS carvedilol 6.25 mg Tablet 6.25 mg PO BID Qty: 60 0RF polyethylene glycol 3350 [Miralax] 17 gram Powder In Packet 17 g PO DAILYP PRN (Reason: constipation) Qty: 30 0RF potassium chloride 20 mEq Tablet,Er Particles/Crystals 20 meq PO DAILY Qty: 30 0RF amlodipine [Norvasc] 5 mg Tablet 5 mg PO DAILY Qty: 30 0RF aspirin 325 mg Tablet,Delayed Release (Dr/Ec) 325 mg PO DAILY Qty: 30 0RF finasteride [Proscar] 5 mg Tablet 5 mg PO DAILY Qty: 30 0RF diltiazem HCl 360 mg Tablet Extended Release 24 Hr 360 mg PO DAILY Qty: 30 0RF rosuvastatin [Crestor] 10 mg Tablet 5 mg PO HS Qty: 30 0RF diclofenac sodium 1 % Gel 2 g TOPICAL Q6HP PRN (Reason: Pain) Qty: 100 0RF Rx Instructions: apply to both knees as needed omeprazole 20 mg Tablet,Delayed Release (Dr/Ec) 40 mg PO BID MDD Acid rflux Qty: 30 0RF cephalexin 500 mg capsule 500 mg PO BID 3 Days Qty: 6 0RF methylprednisolone 4 mg Tablets,Dose Pack 4 mg PO DIRECTED Qty: 21 0RF Referrals Follow up/Referrals: Provider,Referral, MD [Primary Care Provider] - See instructions Activity Restrictions/Add. Instructions Additional Instructions/Restrictions: Follow up with [facility] Family Doctor or [facility] if no improvement or any worsening of symptoms Return if needed Straight to ER if any life threatening symptoms Clinical Impressions Clinical Impression: Sciatica Qualifiers: Laterality: right Qualified Code(s): M54.31 - Sciatica, right side Instructions Patient Instructions: Sciatica Discharge ED Provider: Iraida Abad [facility] General Stated complaint: Hip pain radiating to legs Time Seen by Provider: 08/01/22 09:59 History of Present Illness Provider Complaint: Patient states that he has sciatica and gets this pain sometimes and comes in and they give him a shot and it gets better States that his butt and upper left leg hurts when he walks sometimes Denies loss of control of bowel or bladder also requesting some of the powder they give him last time for constipation it worked and he is out of it Related Data Home Medications Medication Instructions Recorded Confirmed tamsulosin 0.4 mg capsule (Flomax) 0.8 mg PO HS Prostate 04/06/22 04/06/22 Previous Rx's Medication Instructions Recorded amlodipine 5 mg tablet (Norvasc) 5 mg PO DAILY Hypertension #30 tabs 04/08/22 aspirin 325 mg tablet,delayed 325 mg PO DAILY Heart health #30 04/08/22 release tabs carvedilol 6.25 mg tablet 6.25 mg PO BID #60 tabs 04/08/22 cephalexin 500 mg capsule 500 mg PO BID 3 days #6 caps 04/08/22 diclofenac sodium 1 % topical gel 2 g topical Q6HP PRN Pain #100 04/08/22 grams diltiazem HCl 360 mg 360 mg PO DAILY Hypertension #30 04/08/22 tablet,extended release 24 hr tabs finasteride 5 mg tablet (Proscar) 5 mg PO DAILY Prostate #30 tabs 04/08/22 omeprazole 20 mg tablet,delayed 40 mg PO BID Acid reflux #30 tabs 04/08/22 release polyethylene glycol 3350 17 gram 17 g PO DAILYP PRN constipation 04/08/22 oral powder packet (Miralax) #30 ea potassium chloride 20 mEq 20 meq PO DAILY #30 tabs 04/08/22 tablet,extended release(part/cryst) rosuvastatin 10 mg tablet (Crestor) 5 mg PO HS Cholesterol #30 tabs 04/08/22 methylprednisolone 4 mg tablets in 4 mg PO DIRECTED #21 tabs 07/06/22 a dose pack glycerin (adult) (Fleet Glycerin 1 supp GA DAILY PRN constipation 08/01/22 (Adult) rectal suppository) #12 ea polyethylene glycol 3350 17 gram 17 g PO DAILY #30 ea 08/01/22 oral powder packet (Miralax) Allergies Allergy/AdvReac Type Severity R
[2022-08-01 10:19] VITALS: BP 135/75; PULSE 77; RESP 18; TEMP 36.8; O2SAT 98
== END 2022-08-01 10:33 | disposition home or self-care (01) ==
PROVIDERS: Emergency Provider Nurse Practitioner
DX: M54.31 Sciatica, right side (principal); K59.09 Other constipation
CPT/HCPCS: 96372; 99212; 99214; G0463

== ENCOUNTER 2022-11-04 09:19 | Emergency (ER) | payer MEDICARE, OTHER, SELFPAY ==
[2022-11-04 09:20] VITALS: BP 126/67; PULSE 62; RESP 18; TEMP 36.6; O2SAT 98; BMI 30.1
--- NOTE | 2022-11-04 09:36 | EXP.UTC ---
Discharge Plan Disposition Patient Disposition: Home, Self-Care Condition: Good Prescriptions Prescriptions: New methylprednisolone 4 mg Tablets,Dose Pack 4 mg PO DIRECTED Qty: 21 0RF No Action polyethylene glycol 3350 [Miralax] 17 gram powder in packet 17 g PO DAILY Qty: 30 0RF glycerin (adult) [Fleet Glycerin (Adult)] Suppository 1 supp [place] DAILY PRN (Reason: constipation) Qty: 12 0RF tamsulosin [Flomax] 0.4 mg Capsule 0.8 mg PO HS carvedilol 6.25 mg Tablet 6.25 mg PO BID Qty: 60 0RF polyethylene glycol 3350 [Miralax] 17 gram Powder In Packet 17 g PO DAILYP PRN (Reason: constipation) Qty: 30 0RF potassium chloride 20 mEq Tablet,Er Particles/Crystals 20 meq PO DAILY Qty: 30 0RF amlodipine [Norvasc] 5 mg Tablet 5 mg PO DAILY Qty: 30 0RF aspirin 325 mg Tablet,Delayed Release (Dr/Ec) 325 mg PO DAILY Qty: 30 0RF finasteride [Proscar] 5 mg Tablet 5 mg PO DAILY Qty: 30 0RF diltiazem HCl 360 mg Tablet Extended Release 24 Hr 360 mg PO DAILY Qty: 30 0RF rosuvastatin [Crestor] 10 mg Tablet 5 mg PO HS Qty: 30 0RF diclofenac sodium 1 % Gel 2 g TOPICAL Q6HP PRN (Reason: Pain) Qty: 100 0RF Rx Instructions: apply to both knees as needed omeprazole 20 mg Tablet,Delayed Release (Dr/Ec) 40 mg PO BID MDD Acid rflux Qty: 30 0RF cephalexin 500 mg capsule 500 mg PO BID 3 Days Qty: 6 0RF methylprednisolone 4 mg Tablets,Dose Pack 4 mg PO DIRECTED Qty: 21 0RF Referrals Follow up/Referrals: Provider,Referral, MD [Primary Care Provider] - See instructions Activity Restrictions/Add. Instructions Additional Instructions/Restrictions: Go home and rest. It would be best if you rested tomorrow too. No heavy lifting. Take the oral medications as directed. Follow up with your regular doctor. GO TO THE ER FOR ANY WORSENING SYMPTOMS OR CONCERN, ESPECIALLY BOWEL OR BLADDER ISSUES, SADDLE AREA NUMBNESS, FEVER, ETC Clinical Impressions Clinical Impression: Bilateral knee pain Instructions Patient Instructions: DI for Arthritis Discharge ED Provider: [place] Tompkins [facility] [place] General Stated complaint: Leg pain Mode of Arrival: Ambulatory Source of Information: Patient Limitations: No Limitations Time Seen by Provider: 11/04/22 09:35 Description of Symptoms (Recalled from Triage Doc. by RN): Reports bilateral leg and knee pain for awhile now. HEENT Symptoms (Recalled from RN notes): No Resp Symptoms (Recalled from RN notes): No Skin Symptoms (Recalled from RN notes): No MS Symptoms (Recalled from RN notes): Yes Functional Status (Recalled from RN notes): wnl History of Present Illness Provider Complaint: He states that over the past several days he has had worsening bilateral knee pain. He denies any injury. 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 Related Data Home Medications Medication Instructions Recorded Confirmed tamsulosin 0.4 mg capsule (Flomax) 0.8 mg PO HS Prostate 04/06/22 04/06/22 Previous Rx's Medication Instructions Recorded amlodipine 5 mg tablet (Norvasc) 5 mg PO DAILY Hypertension #30 tabs 04/08/22 aspirin 325 mg tablet,delayed 325 mg PO DAILY Heart health #30 04/08/22 release tabs carvedilol 6.25 mg tablet 6.25 mg PO BID #60 tabs 04/08/22 cephalexin 500 mg capsule 500 mg PO BID 3 days #6 caps 04/08/22 diclofenac sodium 1 % topical gel 2 g topical Q6HP PRN Pain #100 04/08/22 grams diltiazem HCl 360 mg 360 mg PO DAILY Hypertension #30 04/08/22 tablet,extended release 24 hr tabs finasteride 5 mg tablet (Proscar) 5 mg PO DAILY Prostate #30 tabs 04/08/22 omeprazole 20 mg tablet,delayed 40 mg PO BID Acid reflux #30 tabs 04/08/22 release polyethylene glycol 3350 17 gram 17 g PO DAILYP PRN constipation 04/08/22 oral powder packet (Miralax) #30 ea potassium chloride 20 mEq 20 meq PO DAILY #30 tabs 04/08/22 tablet,extended release(part/cryst) rosuvastatin 10 mg tablet (Crestor)
[2022-11-04 09:59] VITALS: BP 126/67; PULSE 62; RESP 18; TEMP 36.6; O2SAT 98
== END 2022-11-04 10:03 | disposition home or self-care (01) ==
PROVIDERS: Emergency Provider Nurse Practitioner Family
DX: M25.561 Pain in right knee (principal); M25.562 Pain in left knee; M17.0 Bilateral primary osteoarthritis of knee
CPT/HCPCS: 99212; 99214; G0463

== ENCOUNTER 2023-01-07 11:19 | Emergency (ER) | payer MEDICARE, OTHER, SELFPAY ==
[2023-01-07 11:25] VITALS: BP 127/86; PULSE 78; RESP 18; TEMP 36.6; O2SAT 98; BMI 25.8
[2023-01-07 11:49] VITALS: BP 127/86; PULSE 78; RESP 18; TEMP 36.6; O2SAT 98
--- NOTE | 2023-01-07 11:56 | EXP.UTC ---
Discharge Plan Disposition Patient Disposition: Home, Self-Care Condition: Good Prescriptions Prescriptions: No Action polyethylene glycol 3350 [Miralax] 17 gram powder in packet 17 g PO DAILY Qty: 30 0RF glycerin (adult) [Fleet Glycerin (Adult)] Suppository 1 supp [place] DAILY PRN (Reason: constipation) Qty: 12 0RF methylprednisolone 4 mg Tablets,Dose Pack 4 mg PO DIRECTED Qty: 21 0RF tamsulosin [Flomax] 0.4 mg Capsule 0.8 mg PO HS carvedilol 6.25 mg Tablet 6.25 mg PO BID Qty: 60 0RF polyethylene glycol 3350 [Miralax] 17 gram Powder In Packet 17 g PO DAILYP PRN (Reason: constipation) Qty: 30 0RF potassium chloride 20 mEq Tablet,Er Particles/Crystals 20 meq PO DAILY Qty: 30 0RF amlodipine [Norvasc] 5 mg Tablet 5 mg PO DAILY Qty: 30 0RF aspirin 325 mg Tablet,Delayed Release (Dr/Ec) 325 mg PO DAILY Qty: 30 0RF finasteride [Proscar] 5 mg Tablet 5 mg PO DAILY Qty: 30 0RF diltiazem HCl 360 mg Tablet Extended Release 24 Hr 360 mg PO DAILY Qty: 30 0RF rosuvastatin [Crestor] 10 mg Tablet 5 mg PO HS Qty: 30 0RF diclofenac sodium 1 % Gel 2 g TOPICAL Q6HP PRN (Reason: Pain) Qty: 100 0RF Rx Instructions: apply to both knees as needed omeprazole 20 mg Tablet,Delayed Release (Dr/Ec) 40 mg PO BID MDD Acid rflux Qty: 30 0RF cephalexin 500 mg capsule 500 mg PO BID 3 Days Qty: 6 0RF methylprednisolone 4 mg Tablets,Dose Pack 4 mg PO DIRECTED Qty: 21 0RF Referrals Follow up/Referrals: Provider,Referral, MD [Primary Care Provider] - See instructions Activity Restrictions/Add. Instructions Additional Instructions/Restrictions: Follow up with PCP if not improving Clinical Impressions Clinical Impression: Acute pain of left hip Instructions Patient Instructions: DI for Hip Pain Discharge ED Provider: Maddi Suazo [facility] [place] HPI General Stated complaint: hip pain, no accident Mode of Arrival: Ambulatory Source of Information: Patient Limitations: No Limitations Time Seen by Provider: 01/07/23 11:57 Description of Symptoms (Recalled from Triage Doc. by RN): PATIENT C/O RIGHT HIP PAIN, NO KNOWN ACCIDENT HEENT Symptoms (Recalled from RN notes): No Resp Symptoms (Recalled from RN notes): No Skin Symptoms (Recalled from RN notes): No MS Symptoms (Recalled from RN notes): Yes Functional Status (Recalled from RN notes): WNL History of Present Illness Provider Complaint: Patient c/o left hip pain for the past week or two. He walks with a cane always. States has not fallen recently. Has an ache in his low back, around to the side of his hip. 10. Not severe, but always there. Doesn't feel as if legs will give out. No numbness or tingling. Doesn't keep him from resting. Onset (ago): week(s) (2) Location: left and lower extremity Radiation: other (hip) Severity: mild Severity scale (1-10): 2 Quality: aching, dull and constant Consistency: constant Relieving factors: none Exacerbating factors: none Associated symptoms: denies other symptoms Treatments prior to arrival: none Related Data Home Medications Medication Instructions Recorded Confirmed tamsulosin 0.4 mg capsule (Flomax) 0.8 mg PO HS Prostate 04/06/22 04/06/22 Previous Rx's Medication Instructions Recorded amlodipine 5 mg tablet (Norvasc) 5 mg PO DAILY Hypertension #30 tabs 04/08/22 aspirin 325 mg tablet,delayed 325 mg PO DAILY Heart health #30 04/08/22 release tabs carvedilol 6.25 mg tablet 6.25 mg PO BID #60 tabs 04/08/22 cephalexin 500 mg capsule 500 mg PO BID 3 days #6 caps 04/08/22 diclofenac sodium 1 % topical gel 2 g topical Q6HP PRN Pain #100 04/08/22 grams diltiazem HCl 360 mg 360 mg PO DAILY Hypertension #30 04/08/22 tablet,extended release 24 hr tabs finasteride 5 mg tablet (Proscar) 5 mg PO DAILY Prostate #30 tabs 04/08/22 omeprazole 20 mg tablet,delayed 40 mg PO BID Acid reflux #30 tabs 04/08/22 release polyethylene glycol 3350 17 gram
== END 2023-01-07 12:38 | disposition home or self-care (01) ==
PROVIDERS: Emergency Provider Physician Assistant
DX: M25.552 Pain in left hip (principal)
CPT/HCPCS: 96372; 99212; 99214; G0463; J1040

== ENCOUNTER 2023-03-06 11:49 | Emergency (ER) | payer MEDICARE, OTHER, SELFPAY ==
[2023-03-06 12:30] VITALS: BP 142/71; PULSE 62; RESP 18; TEMP 36.6; O2SAT 97; BMI 27.4
--- NOTE | 2023-03-06 12:32 | EXP.UTC ---
Discharge Plan Disposition Patient Disposition: Home, Self-Care Condition: Good Prescriptions Prescriptions: New polyethylene glycol 3350 [Miralax] 17 gram/dose powder 17 g PO DAILY PRN (Reason: constipation) Qty: 119 0RF bisacodyl [Dulcolax (bisacodyl)] 10 mg suppository 10 mg [place] DAILY PRN (Reason: constipation) Qty: 12 0RF No Action glycerin (adult) [Fleet Glycerin (Adult)] Suppository 1 supp [place] DAILY PRN (Reason: constipation) Qty: 12 0RF tamsulosin [Flomax] 0.4 mg Capsule 0.8 mg PO HS carvedilol 6.25 mg Tablet 6.25 mg PO BID Qty: 60 0RF polyethylene glycol 3350 [Miralax] 17 gram Powder In Packet 17 g PO DAILYP PRN (Reason: constipation) Qty: 30 0RF potassium chloride 20 mEq Tablet,Er Particles/Crystals 20 meq PO DAILY Qty: 30 0RF amlodipine [Norvasc] 5 mg Tablet 5 mg PO DAILY Qty: 30 0RF aspirin 325 mg Tablet,Delayed Release (Dr/Ec) 325 mg PO DAILY Qty: 30 0RF finasteride [Proscar] 5 mg Tablet 5 mg PO DAILY Qty: 30 0RF diltiazem HCl 360 mg Tablet Extended Release 24 Hr 360 mg PO DAILY Qty: 30 0RF rosuvastatin [Crestor] 10 mg Tablet 5 mg PO HS Qty: 30 0RF diclofenac sodium 1 % Gel 2 g TOPICAL Q6HP PRN (Reason: Pain) Qty: 100 0RF Rx Instructions: apply to both knees as needed omeprazole 20 mg Tablet,Delayed Release (Dr/Ec) 40 mg PO BID MDD Acid rflux Qty: 30 0RF Referrals Follow up/Referrals: Provider,Referral, MD [Primary Care Provider] - See instructions Activity Restrictions/Add. Instructions Additional Instructions/Restrictions: Drink plenty of fluids. Take the medications as directed. Eat a diet that is high in fruits and vegetables. Follow up with your regular doctor. GO TO THE ER FOR ANY WORSENING SYMPTOMS Clinical Impressions Clinical Impression: Constipation Instructions Patient Instructions: Sciatica, DI for Low Back Pain, DI for Sciatica, DI for Neck Pain Discharge ED Provider: Anthony Tompkins [facility] General Stated complaint: CONSTIPATED Time Seen by Provider: 03/06/23 12:32 History of Present Illness Provider Complaint: He states that it has been 1 week since he had a bowel movement. He denies any abdominal pain. He has not taken anything for his constipation so far. Related Data Home Medications Medication Instructions Recorded Confirmed tamsulosin 0.4 mg capsule (Flomax) 0.8 mg PO HS Prostate 04/06/22 04/06/22 Previous Rx's Medication Instructions Recorded amlodipine 5 mg tablet (Norvasc) 5 mg PO DAILY Hypertension #30 tabs 04/08/22 aspirin 325 mg tablet,delayed 325 mg PO DAILY Heart health #30 04/08/22 release tabs carvedilol 6.25 mg tablet 6.25 mg PO BID #60 tabs 04/08/22 diclofenac sodium 1 % topical gel 2 g topical Q6HP PRN Pain #100 04/08/22 grams diltiazem HCl 360 mg 360 mg PO DAILY Hypertension #30 04/08/22 tablet,extended release 24 hr tabs finasteride 5 mg tablet (Proscar) 5 mg PO DAILY Prostate #30 tabs 04/08/22 omeprazole 20 mg tablet,delayed 40 mg PO BID Acid reflux #30 tabs 04/08/22 release polyethylene glycol 3350 17 gram 17 g PO DAILYP PRN constipation 04/08/22 oral powder packet (Miralax) #30 ea potassium chloride 20 mEq 20 meq PO DAILY #30 tabs 04/08/22 tablet,extended release(part/cryst) rosuvastatin 10 mg tablet (Crestor) 5 mg PO HS Cholesterol #30 tabs 04/08/22 glycerin (adult) (Fleet Glycerin 1 supp WI DAILY PRN constipation 08/01/22 (Adult) rectal suppository) #12 ea bisacodyl 10 mg rectal suppository 10 mg [place] DAILY PRN constipation 03/06/23 (Dulcolax (bisacodyl)) #12 ea polyethylene glycol 3350 17 17 g PO DAILY PRN constipation 03/06/23 gram/dose oral powder (Miralax) #119 grams Allergies Allergy/AdvReac Type Severity Reaction Status Date / Time No Known Allergies Allergy Verified 03/06/23 12:40 [facility] Disclaimer: The information contained in this section may have been updated after the patient was seen, as this informatio
--- NOTE | 2023-03-06 12:38 | XR_ITS ---
PROCEDURE INFORMATION: Exam: XR Abdomen Exam date and time: 03/06/2023 12:42 PM Age: 87 years old Clinical indication: Constipation; Additional info: Cant use the bathroom TECHNIQUE: Imaging protocol: Radiologic exam of the abdomen. Views: Frontal supine view of the abdomen. 1 View. COMPARISON: CR XR ACUTE ABDOMEN SERIES 02/29/2020 2:03 PM FINDINGS: Gastrointestinal tract: Constipation throughout the colon.. Bones/joints: Degenerative changes in the thoracolumbar spine and both hips IMPRESSION: Constipation throughout the colon..
[2023-03-06 13:41] VITALS: BP 142/71; PULSE 62; RESP 18; TEMP 36.6; O2SAT 97
== END 2023-03-06 13:41 | disposition home or self-care (01) ==
PROVIDERS: Emergency Provider Nurse Practitioner Family
DX: K59.00 Constipation, unspecified (principal)
CPT/HCPCS: 74018; 99212; 99214; G0463

== ENCOUNTER 2023-03-21 10:56 | Emergency (ER) | payer MEDICARE, OTHER, SELFPAY ==
[2023-03-21 10:57] VITALS: BP 137/81; PULSE 70; RESP 18; TEMP 36.6; O2SAT 96; BMI 29.5
--- NOTE | 2023-03-21 11:18 | EXP.UTC ---
Discharge Plan Disposition Patient Disposition: Home, Self-Care Condition: Good Prescriptions Prescriptions: No Action glycerin (adult) [Fleet Glycerin (Adult)] Suppository 1 supp [place] DAILY PRN (Reason: constipation) Qty: 12 0RF tamsulosin [Flomax] 0.4 mg Capsule 0.8 mg PO HS carvedilol 6.25 mg Tablet 6.25 mg PO BID Qty: 60 0RF polyethylene glycol 3350 [Miralax] 17 gram Powder In Packet 17 g PO DAILYP PRN (Reason: constipation) Qty: 30 0RF potassium chloride 20 mEq Tablet,Er Particles/Crystals 20 meq PO DAILY Qty: 30 0RF amlodipine [Norvasc] 5 mg Tablet 5 mg PO DAILY Qty: 30 0RF aspirin 325 mg Tablet,Delayed Release (Dr/Ec) 325 mg PO DAILY Qty: 30 0RF finasteride [Proscar] 5 mg Tablet 5 mg PO DAILY Qty: 30 0RF diltiazem HCl 360 mg Tablet Extended Release 24 Hr 360 mg PO DAILY Qty: 30 0RF rosuvastatin [Crestor] 10 mg Tablet 5 mg PO HS Qty: 30 0RF diclofenac sodium 1 % Gel 2 g TOPICAL Q6HP PRN (Reason: Pain) Qty: 100 0RF Rx Instructions: apply to both knees as needed omeprazole 20 mg Tablet,Delayed Release (Dr/Ec) 40 mg PO BID MDD Acid rflux Qty: 30 0RF polyethylene glycol 3350 [Miralax] 17 gram/dose powder 17 g PO DAILY PRN (Reason: constipation) Qty: 119 0RF bisacodyl [Dulcolax (bisacodyl)] 10 mg suppository 10 mg [place] DAILY PRN (Reason: constipation) Qty: 12 0RF Referrals Follow up/Referrals: Provider,Referral, MD [Primary Care Provider] - See instructions Activity Restrictions/Add. 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 Qualifiers: Back pain laterality: unspecified Sciatica laterality: sciatica laterality unspecified Qualified Code(s): M54.40 - Lumbago with sciatica, unspecified side Instructions Patient Instructions: DI for Chronic Pain -- Adult Discharge ED Provider: Iraida Abad [facility] [place] General Stated complaint: back pain Time Seen by Provider: 03/21/23 11:19 History of Present Illness Provider Complaint: Patient states that he is having pain in his lower back into his hips and legs like he gets all the time and has to have a couple shots to make it feel better Denies falling denies loss of control of bowel or bladder States it is the same pain he always has Related Data Home Medications Medication Instructions Recorded Confirmed tamsulosin 0.4 mg capsule (Flomax) 0.8 mg PO HS Prostate 04/06/22 04/06/22 Previous Rx's Medication Instructions Recorded amlodipine 5 mg tablet (Norvasc) 5 mg PO DAILY Hypertension #30 tabs 04/08/22 aspirin 325 mg tablet,delayed 325 mg PO DAILY Heart health #30 04/08/22 release tabs carvedilol 6.25 mg tablet 6.25 mg PO BID #60 tabs 04/08/22 diclofenac sodium 1 % topical gel 2 g topical Q6HP PRN Pain #100 04/08/22 grams diltiazem HCl 360 mg 360 mg PO DAILY Hypertension #30 04/08/22 tablet,extended release 24 hr tabs finasteride 5 mg tablet (Proscar) 5 mg PO DAILY Prostate #30 tabs 04/08/22 omeprazole 20 mg tablet,delayed 40 mg PO BID Acid reflux #30 tabs 04/08/22 release polyethylene glycol 3350 17 gram 17 g PO DAILYP PRN constipation 04/08/22 oral powder packet (Miralax) #30 ea potassium chloride 20 mEq 20 meq PO DAILY #30 tabs 04/08/22 tablet,extended release(part/cryst) rosuvastatin 10 mg tablet (Crestor) 5 mg PO HS Cholesterol #30 tabs 04/08/22 glycerin (adult) (Fleet Glycerin 1 supp ME DAILY PRN constipation 08/01/22 (Adult) rectal suppository) #12 ea bisacodyl 10 mg rectal suppository 10 mg [place] DAILY PRN constipation 03/06/23 (Dulcolax (bisacodyl)) #12 ea polyethylene glycol 3350 17 17 g PO DAILY PRN constipation 03/06/23 gram/dose oral powder (Miralax) #119 grams Allergies Allergy/AdvReac Type Severity Reaction Status Date / Time No Known
[2023-03-21 11:45] VITALS: BP 137/81; PULSE 70; RESP 18; TEMP 36.6; O2SAT 96
[2023-03-21 11:59] VITALS: BP 137/81; PULSE 86; RESP 18; TEMP 36.6; O2SAT 98
== END 2023-03-21 12:00 | disposition home or self-care (01) ==
PROVIDERS: Emergency Provider Nurse Practitioner
DX: M54.40 Lumbago with sciatica, unspecified side (principal)
CPT/HCPCS: 96372; 99212; 99214; G0463

== ENCOUNTER 2023-03-24 15:43 | Emergency (ER) | payer MEDICARE, OTHER, SELFPAY ==
[2023-03-24 16:20] VITALS: BP 140/73; PULSE 67; RESP 18; TEMP 36.6; O2SAT 98; BMI 27.4
--- NOTE | 2023-03-24 16:33 | EXP.UTC ---
Discharge Plan Disposition Patient Disposition: Home, Self-Care Condition: Good Prescriptions Prescriptions: New methylprednisolone 4 mg Tablets,Dose Pack 4 mg PO DIRECTED Qty: 21 0RF No Action glycerin (adult) [Fleet Glycerin (Adult)] Suppository 1 supp [place] DAILY PRN (Reason: constipation) Qty: 12 0RF tamsulosin [Flomax] 0.4 mg Capsule 0.8 mg PO HS carvedilol 6.25 mg Tablet 6.25 mg PO BID Qty: 60 0RF polyethylene glycol 3350 [Miralax] 17 gram Powder In Packet 17 g PO DAILYP PRN (Reason: constipation) Qty: 30 0RF potassium chloride 20 mEq Tablet,Er Particles/Crystals 20 meq PO DAILY Qty: 30 0RF amlodipine [Norvasc] 5 mg Tablet 5 mg PO DAILY Qty: 30 0RF aspirin 325 mg Tablet,Delayed Release (Dr/Ec) 325 mg PO DAILY Qty: 30 0RF finasteride [Proscar] 5 mg Tablet 5 mg PO DAILY Qty: 30 0RF diltiazem HCl 360 mg Tablet Extended Release 24 Hr 360 mg PO DAILY Qty: 30 0RF rosuvastatin [Crestor] 10 mg Tablet 5 mg PO HS Qty: 30 0RF diclofenac sodium 1 % Gel 2 g TOPICAL Q6HP PRN (Reason: Pain) Qty: 100 0RF Rx Instructions: apply to both knees as needed omeprazole 20 mg Tablet,Delayed Release (Dr/Ec) 40 mg PO BID MDD Acid rflux Qty: 30 0RF polyethylene glycol 3350 [Miralax] 17 gram/dose powder 17 g PO DAILY PRN (Reason: constipation) Qty: 119 0RF bisacodyl [Dulcolax (bisacodyl)] 10 mg suppository 10 mg [place] DAILY PRN (Reason: constipation) Qty: 12 0RF Referrals Follow up/Referrals: Provider,Referral, MD [Primary Care Provider] - See instructions Activity Restrictions/Add. Instructions Additional Instructions/Restrictions: Go home and rest. No heavy lifting. No twisting. Take the oral medications as directed. Follow up with your regular doctor. GO TO THE ER FOR ANY WORSENING SYMPTOMS OR CONCERN, ESPECIALLY BOWEL OR BLADDER ISSUES, SADDLE AREA NUMBNESS, FEVER, ETC Clinical Impressions Clinical Impression: Low back pain with sciatica Instructions Patient Instructions: DI for Low Back Pain, DI for Sciatica Discharge ED Provider: Anthony Tompkins [facility] General Stated complaint: RT hip pain Time Seen by Provider: 03/24/23 16:33 History of Present Illness Provider Complaint: He is back today with complaints of low back pain that radiates down his left leg. He states that he has a long history of low back pain and sciatica and this feels like his normal symptoms. He was here 3 days ago with the same complaint. He states that at that time he got a toradol shot and a steroid shot. The shots did help his symptoms, but he did not have any oral medications to take at home, so his symptoms are returning. Related Data Home Medications Medication Instructions Recorded Confirmed tamsulosin 0.4 mg capsule (Flomax) 0.8 mg PO HS Prostate 04/06/22 04/06/22 Previous Rx's Medication Instructions Recorded amlodipine 5 mg tablet (Norvasc) 5 mg PO DAILY Hypertension #30 tabs 04/08/22 aspirin 325 mg tablet,delayed 325 mg PO DAILY Heart health #30 04/08/22 release tabs carvedilol 6.25 mg tablet 6.25 mg PO BID #60 tabs 04/08/22 diclofenac sodium 1 % topical gel 2 g topical Q6HP PRN Pain #100 04/08/22 grams diltiazem HCl 360 mg 360 mg PO DAILY Hypertension #30 04/08/22 tablet,extended release 24 hr tabs finasteride 5 mg tablet (Proscar) 5 mg PO DAILY Prostate #30 tabs 04/08/22 omeprazole 20 mg tablet,delayed 40 mg PO BID Acid reflux #30 tabs 04/08/22 release polyethylene glycol 3350 17 gram 17 g PO DAILYP PRN constipation 04/08/22 oral powder packet (Miralax) #30 ea potassium chloride 20 mEq 20 meq PO DAILY #30 tabs 04/08/22 tablet,extended release(part/cryst) rosuvastatin 10 mg tablet (Crestor) 5 mg PO HS Cholesterol #30 tabs 04/08/22 glycerin (adult) (Fleet Glycerin 1 supp [place] DAILY PRN constipation 08/01/22 (Adult) rectal suppository) #12 ea bisacodyl 10 mg rectal suppository 10 mg [place] DAILY PRN constipation 03/06/23 (Dulc
[2023-03-24 17:30] VITALS: BP 140/73; PULSE 67; RESP 18; TEMP 36.6; O2SAT 98
== END 2023-03-24 17:10 | disposition home or self-care (01) ==
PROVIDERS: Emergency Provider Nurse Practitioner Family
DX: M54.40 Lumbago with sciatica, unspecified side (principal)
CPT/HCPCS: 99212; 99214; G0463

== ENCOUNTER 2023-04-06 10:00 | Emergency (ER) | payer MEDICARE, OTHER, SELFPAY ==
--- NOTE | 2023-04-06 10:19 | EXP.UTC ---
Discharge Plan Disposition Patient Disposition: Home, Self-Care Condition: Good Prescriptions Prescriptions: New nystatin 100,000 unit/gram cream 1 applic topical BID 7 Days Qty: 15 0RF No Action glycerin (adult) [Fleet Glycerin (Adult)] Suppository 1 supp KY DAILY PRN (Reason: constipation) Qty: 12 0RF methylprednisolone 4 mg Tablets,Dose Pack 4 mg PO DIRECTED Qty: 21 0RF tamsulosin [Flomax] 0.4 mg Capsule 0.8 mg PO HS carvedilol 6.25 mg Tablet 6.25 mg PO BID Qty: 60 0RF polyethylene glycol 3350 [Miralax] 17 gram Powder In Packet 17 g PO DAILYP PRN (Reason: constipation) Qty: 30 0RF potassium chloride 20 mEq Tablet,Er Particles/Crystals 20 meq PO DAILY Qty: 30 0RF amlodipine [Norvasc] 5 mg Tablet 5 mg PO DAILY Qty: 30 0RF aspirin 325 mg Tablet,Delayed Release (Dr/Ec) 325 mg PO DAILY Qty: 30 0RF finasteride [Proscar] 5 mg Tablet 5 mg PO DAILY Qty: 30 0RF diltiazem HCl 360 mg Tablet Extended Release 24 Hr 360 mg PO DAILY Qty: 30 0RF rosuvastatin [Crestor] 10 mg Tablet 5 mg PO HS Qty: 30 0RF diclofenac sodium 1 % Gel 2 g TOPICAL Q6HP PRN (Reason: Pain) Qty: 100 0RF Rx Instructions: apply to both knees as needed omeprazole 20 mg Tablet,Delayed Release (Dr/Ec) 40 mg PO BID MDD Acid rflux Qty: 30 0RF polyethylene glycol 3350 [Miralax] 17 gram/dose powder 17 g PO DAILY PRN (Reason: constipation) Qty: 119 0RF bisacodyl [Dulcolax (bisacodyl)] 10 mg suppository 10 mg KY DAILY PRN (Reason: constipation) Qty: 12 0RF Referrals Follow up/Referrals: Provider,Referral, MD [Primary Care Provider] - See instructions Activity Restrictions/Add. Instructions Additional Instructions/Restrictions: Drink plenty of fluids. Take tylenol for pain. Use the medications as directed. Follow up with your regular doctor. GO TO THE ER FOR ANY WORSENING SYMPTOMS Clinical Impressions Clinical Impression: Diarrhea, Perianal excoriation Instructions Patient Instructions: Diarrhea Discharge ED Provider: Anthony Tompkins [facility] [place] General Stated complaint: diarrhea lower back pain Time Seen by Provider: 04/06/23 10:19 History of Present Illness Provider Complaint: He states that he has had diarrhea since yesterday. He states that his skin in his perianal area is very irritated since his diarrhea started. He denies any abdominal pain and vomiting, but he has had nausea also. Related Data Home Medications Medication Instructions Recorded Confirmed tamsulosin 0.4 mg capsule (Flomax) 0.8 mg PO HS Prostate 04/06/22 04/06/22 Previous Rx's Medication Instructions Recorded amlodipine 5 mg tablet (Norvasc) 5 mg PO DAILY Hypertension #30 tabs 04/08/22 aspirin 325 mg tablet,delayed 325 mg PO DAILY Heart health #30 04/08/22 release tabs carvedilol 6.25 mg tablet 6.25 mg PO BID #60 tabs 04/08/22 diclofenac sodium 1 % topical gel 2 g topical Q6HP PRN Pain #100 04/08/22 grams diltiazem HCl 360 mg 360 mg PO DAILY Hypertension #30 04/08/22 tablet,extended release 24 hr tabs finasteride 5 mg tablet (Proscar) 5 mg PO DAILY Prostate #30 tabs 04/08/22 omeprazole 20 mg tablet,delayed 40 mg PO BID Acid reflux #30 tabs 04/08/22 release polyethylene glycol 3350 17 gram 17 g PO DAILYP PRN constipation 04/08/22 oral powder packet (Miralax) #30 ea potassium chloride 20 mEq 20 meq PO DAILY #30 tabs 04/08/22 tablet,extended release(part/cryst) rosuvastatin 10 mg tablet (Crestor) 5 mg PO HS Cholesterol #30 tabs 04/08/22 glycerin (adult) (Fleet Glycerin 1 supp KY DAILY PRN constipation 08/01/22 (Adult) rectal suppository) #12 ea bisacodyl 10 mg rectal suppository 10 mg KY DAILY PRN constipation 03/06/23 (Dulcolax (bisacodyl)) #12 ea polyethylene glycol 3350 17 17 g PO DAILY PRN constipation 03/06/23 gram/dose oral powder (Miralax) #119 grams methylprednisolone 4 mg tablets in 4 mg PO DIRECTED #21 tabs 03/24/23 a dose pack nystatin 100
[2023-04-06 10:25] VITALS: BP 129/87; PULSE 74; RESP 18; TEMP 36.6; O2SAT 98; BMI 23.1
[2023-04-06 11:09] VITALS: BP 129/87; PULSE 74; RESP 18; TEMP 36.6; O2SAT 98
== END 2023-04-06 11:09 | disposition home or self-care (01) ==
PROVIDERS: Emergency Provider Nurse Practitioner Family
DX: S30.817A Abrasion of anus, initial encounter (principal); R19.7 Diarrhea, unspecified; R11.0 Nausea; M54.50 Low back pain, unspecified
CPT/HCPCS: 99212; 99214; G0463

== ENCOUNTER 2024-06-06 09:43 | Emergency (ER) | payer OTHER, SELFPAY ==
[2024-06-06 09:43] VITALS: BP 168/100; PULSE 98; RESP 18; TEMP 36.5; O2SAT 99; BMI 23.0
[2024-06-06 09:46] VITALS: BP 163/126; PULSE 58; O2SAT 98
--- NOTE | 2024-06-06 09:46 | XR_ITS ---
FINAL REPORT CLINICAL HISTORY: fall >65 yo, pain b/l legs COMPARISON: 09/09/2021 FINDINGS: Two views of the right femur were obtained. There is no acute osseous abnormality of the right femur. 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 There is no acute soft tissue abnormality. IMPRESSION: No acute abnormality identified. Reviewed, Interpreted and Dictated by Suki Swanson MD Transcribed by Carmenza Franks Authenticated and [facility]
--- NOTE | 2024-06-06 09:46 | CT_ITS ---
FINAL REPORT TECHNIQUE: Thin section axial images were obtained from skull base to vertex without contrast. Coronal and sagittal reconstruction images were obtained from the axial data. Exam was performed using dose reduction techniques such as automated exposure control, adjustment of the mA and kV according to patient size, and use of iterative reconstruction technique. CLINICAL HISTORY: fall >65 yo, pain b/l legs COMPARISON: 04/05/2022 FINDINGS: There is atrophy. No mass effect or midline shift. No intracranial hemorrhage. No hydrocephalus. Periventricular low density is likely related to changes of chronic small vessel ischemia. The basilar cisterns are preserved. The posterior fossa is without acute abnormality. There is mild soft tissue edema of the right frontal scalp. The remaining soft tissues are without acute abnormality. No acute osseous abnormality is identified. IMPRESSION: No intracranial hemorrhage or acute intracranial abnormality. Atrophy and changes likely related to chronic small vessel ischemia. Reviewed, Interpreted and Dictated by Suki Swanson MD Transcribed by Carmenza Franks Authenticated and [facility]
--- NOTE | 2024-06-06 09:46 | CT_ITS ---
FINAL REPORT TECHNIQUE: Thin section axial images were obtained through the cervical spine without contrast. Multiplanar reconstruction images were obtained from the axial data. Exam was performed using dose reduction techniques. This study was performed with techniques to keep radiation doses as low as reasonably achievable (ALARA). Individualized dose reduction techniques using automated exposure control or adjustment of mA and/or kV according to the patient's size were employed. CLINICAL HISTORY: fall >65 yo, pain b/l legs COMPARISON: 12/28/2019 FINDINGS: There is no acute fracture or acute malalignment of the cervical spine. There is no evidence of unilateral or bilateral facet lock. The craniocervical junction is intact. Vertebral body height is preserved. No acute paraspinal abnormality is identified. There is multilevel degenerative disc disease, which has progressed since the prior exam of 2019. IMPRESSION: No acute osseous abnormality of the cervical spine. Multilevel degenerative disc disease, which has progressed since the prior CT of 2019. Reviewed, Interpreted and Dictated by Suki Swanson MD Transcribed by Luz Maria Oh Authenticated and [facility]
--- NOTE | 2024-06-06 09:46 | XR_ITS ---
FINAL REPORT CLINICAL HISTORY: fall >65 yo, pain b/l legs COMPARISON: None FINDINGS: Two views of the left femur were obtained. There is no acute osseous abnormality of the left femur. There is degenerative joint disease at the hip and the knee. There is no acute soft tissue abnormality. IMPRESSION: No acute abnormality identified. Reviewed, Interpreted and Dictated by Suki Swanson MD Transcribed by Carmenza Franks Authenticated and [facility]
--- NOTE | 2024-06-06 09:46 | CT_ITS ---
FINAL REPORT TECHNIQUE: Thin section axial images were obtained through the lumbar spine without contrast. Sagittal and coronal reconstruction images were obtained from the axial data. Exam was performed using dose reduction techniques. This study was performed with techniques to keep radiation doses as low as reasonably achievable (ALARA). Individualized dose reduction techniques using automated exposure control or adjustment of mA and/or kV according to the patient's size were employed. CLINICAL HISTORY: fall >65 yo, pain b/l legs COMPARISON: None FINDINGS: There is no acute fracture or acute malalignment of the lumbar spine. Vertebral body height is preserved. There is advanced multilevel degenerative disease with disc space narrowing and large osteophyte formation. There is grade 1 spondylolisthesis of L4 on L5. There is no significant central stenosis. There are bilateral hypodense renal abnormalities, which are incompletely imaged. IMPRESSION: No acute abnormality of the lumbar spine. Advanced multilevel degenerative disease. Reviewed, Interpreted and Dictated by Suki Swanson MD Transcribed by Luz Maria Oh Authenticated and [facility]
--- NOTE | 2024-06-06 09:46 | XR_ITS ---
FINAL REPORT CLINICAL HISTORY: fall >65 yo, pain b/l legs COMPARISON: 09/09/2021 FINDINGS: SINGLE VIEW PELVIS: A single view of the pelvis was obtained. There is no acute osseous abnormality of the pelvis. 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 A small metallic density projecting over the left iliac crest is slightly on the patient's clothing. IMPRESSION: No acute osseous abnormality. Reviewed, Interpreted and Dictated by uSki Swanson MD Transcribed by Carmenza Franks Authenticated and [facility]
--- NOTE | 2024-06-06 09:46 | CT_ITS ---
FINAL REPORT TECHNIQUE: Thin section axial images were obtained through the thoracic spine without contrast. Sagittal and coronal images were obtained from the axial data. This study was performed with techniques to keep radiation doses as low as reasonably achievable (ALARA). Individualized dose reduction techniques using automated exposure control or adjustment of mA and/or kV according to the patient's size were employed. CLINICAL HISTORY: fall >65 yo, pain b/l legs COMPARISON: None FINDINGS: There is no acute fracture of the thoracic spine. There is no malalignment. Multilevel degenerative disease is noted with large anterior osteophyte formation and multilevel disc space narrowing. No acute paraspinal abnormality is identified. There is a 5 mm posterior right upper lobe pulmonary nodule noted. Changes of emphysema are present. There is a filling defect in the distal trachea extending into the left mainstem bronchus, which contains air and what appeared to be secretions, that may have been aspirated. IMPRESSION: No acute osseous abnormality of the thoracic spine. Multilevel degenerative disc disease. Changes of emphysema, with a filling defect in the distal trachea extending into the left mainstem bronchus, possibly aspirated. Reviewed, Interpreted and Dictated by Suki Swanson MD Transcribed by Luz Maria Oh Authenticated and [facility]
--- NOTE | 2024-06-06 09:50 | XR_ITS ---
FINAL REPORT CLINICAL HISTORY: Nonspecific cough COMPARISON: 04/05/2022 FINDINGS: A single view of the chest was obtained. Cardiac and mediastinal silhouettes are within normal limits. The lungs are clear. There is no pleural effusion or pneumothorax. IMPRESSION: No acute process on this single view of the chest. Reviewed, Interpreted and Dictated by Suki Swanson MD Transcribed by Carmenza Franks Authenticated and [facility]
--- NOTE | 2024-06-06 09:56 | HMH.EDGENADL ---
Discharge Plan Disposition Patient Disposition: Home, Self-Care Condition: Good Prescriptions Prescriptions: New amoxicillin-pot clavulanate 875-125 mg tablet 1 tab PO BID Qty: 20 0RF No Action tamsulosin [Flomax] 0.4 mg Capsule 0.8 mg PO HS carvedilol 6.25 mg Tablet 6.25 mg PO BID Qty: 60 0RF potassium chloride 20 mEq Tablet,Er Particles/Crystals 20 meq PO DAILY Qty: 30 0RF amlodipine [Norvasc] 5 mg Tablet 5 mg PO DAILY Qty: 30 0RF aspirin 325 mg Tablet,Delayed Release (Dr/Ec) 325 mg PO DAILY Qty: 30 0RF finasteride [Proscar] 5 mg Tablet 5 mg PO DAILY Qty: 30 0RF diltiazem HCl 360 mg Tablet Extended Release 24 Hr 360 mg PO DAILY Qty: 30 0RF rosuvastatin [Crestor] 10 mg Tablet 5 mg PO HS Qty: 30 0RF diclofenac sodium 1 % Gel 2 g TOPICAL Q6HP PRN (Reason: Pain) Qty: 100 0RF Rx Instructions: apply to both knees as needed omeprazole 20 mg Tablet,Delayed Release (Dr/Ec) 40 mg PO BID MDD Acid rflux Qty: 30 0RF bisacodyl [Dulcolax (bisacodyl)] 10 mg suppository 10 mg IA DAILY PRN (Reason: constipation) Qty: 12 0RF Referrals Follow up/Referrals: Provider,Referral, MD [Primary Care Provider] - See instructions Activity Restrictions/Add. Instructions Additional Instructions/Restrictions: You were evaluated in the emergency department today. It looks like you are having some issues with aspiration, so I recommend following up very closely with your primary care provider for further swallow evaluation. Please moss picker your prescription for antibiotic and take the full course for this. You may also follow-up with them for evaluation with concern for this recurrent pain. Take Tylenol and ibuprofen as you need to for pain. Return to the emergency department for new or worsening symptoms. Clinical Impressions Clinical Impression: Aspiration into airway, Chronic bilateral low back pain with bilateral sciatica Instructions Patient Instructions: DI for Aspiration Pneumonia, DI for Chronic Pain -- Adult, DI for Acute Pain -- Adult Print Language Print Language: Hungarian Discharge ED Provider: Janell Dowling General Adult HPI General Chief complaint: PAIN Stated complaint: LEG PAIN Time Seen by Provider: 06/06/24 09:45 History of Present Illness HPI narrative: This patient is an 88-year-old male with a history of chronic low back pain with sciatica, bilateral knee osteoarthritis presenting to the emergency department for evaluation with concern for bilateral leg pain. Patient arrives by EMS who notes that he was stable en route and ambulated to their stretcher. Patient reports that he has had issues on and off with back pain for a while now, and he has had multiple prior ED and UTC evaluations for chronic back pain, leg pain, sciatica, knee arthritis. He states that it is flared up since yesterday and he is having pain in his right leg more so than his left. He notes that it feels like is in the front of his thighs and radiates down his legs. He is still able to walk and bear weight. He did have a fall 2 to 3 days ago but denies any specific injuries and states he initially was not hurting more after that. It was a mechanical ground-level fall and he did not hit his head or lose consciousness. Related Data Home Medications ?Medication ?Instructions ?Recorded ?Confirmed tamsulosin 0.4 mg capsule (Flomax) 0.8 mg PO HS Prostate 04/06/22 06/06/24 Previous Rx's ?Medication ?Instructions ?Recorded amlodipine 5 mg tablet (Norvasc) 5 mg PO DAILY Hypertension #30 tabs 04/08/22 aspirin 325 mg tablet,delayed 325 mg PO DAILY Heart health #30 04/08/22 release tabs carvedilol 6.25 mg tablet 6.25 mg PO BID #60 tabs 04/08/22 diclofenac sodium 1 % topical gel 2 g topical Q6HP PRN Pain #100 04/08/22 grams diltiazem HCl 360 mg 360 mg PO DAILY Hypertension #30 04/08/22 tablet,extended release 24 hr tabs finasteride 5 mg tablet (Proscar) 5 mg PO DAILY Prostate #30 tabs 04/08/22 omeprazole 20 mg tablet,delayed 40 mg (2 x 20 mg) PO BID Acid 04/08/22 release reflux #30 tabs potassium chloride 20 mEq 20 meq PO DAILY #30 tabs 04/08/22 tablet,extended release(part/cryst) rosuvastatin 10 mg tablet (Crestor) 5 mg (1/2 x 10 mg) PO HS 04/08/22 Cholesterol #30 tabs bisacodyl 10 mg rectal suppository 10 mg IA DAILY PRN constipation 03/06/23 (Dulcolax (bisacodyl)) #12 ea amoxicillin 875 mg-potassium 1 tab PO BID #20 tabs 06/06/24 clavulanate 125 mg tablet Allergies Allergy/AdvReac Type Severity Reaction Status Date / Time No Known Allergies Allergy Verified 06/06/24 10:17 [facility] Disclaimer: The information contained in this section may have been updated after the patient was seen, as this information can be updated by other users. Medical History UTI (urinary tract infection) BPH (benign prostatic hyperplasia) Social History Smoking Status: Former smoker tobacco type: cigarettes alcohol intake: former substance use type: denies use current occupational status: retired and other Travel in the last 8 weeks: None household members: none housing: apartment Have you lived/traveled outside [place] in past 30 days?: No Contact w/someone who lives/traveled outside US past 30 days?: No Exposure to someone with infectious disease in past 14 days?: No Do you have a fever (greater than 100.4 F or 38 C)?: No Have you tested positive for COVID-19: No Exposed to someone with COVID-19 in past 14 days?: No Do you have a sore throat?: No Do you have a cough?: No Do you have any weakness?: No Do you have any diarrhea?: No Are you experiencing any unusual bleeding?: No Do you have any muscle aches/pain?: No Do you have any abdominal pain?: No Are you experiencing loss of taste or smell?: No Other Medical History Have you received the Flu Vaccine for this season: No Have you received the Pneumonia Vaccine: No ROS Obtained: Yes All systems reviewed & no additional complaints except as documented Physical Exam General General appearance: alert and in no apparent distress Head Head exam: atraumatic and normocephalic Eye Eye exam: Present normal appearance, PERRL and EOMI ENT ENT exam: Present normal exam, normal oropharynx, mucous membranes moist and normal external ear exam Neck Neck exam: Present normal inspection, full ROM and trachea midline; Absent tenderness Chest Chest inspection: Present normal inspection and symmetric chest wall rise; Absent tenderness Respiratory Respiratory exam: Present normal lung sounds bilaterally; Absent respiratory distress, wheezes, stridor or accessory muscle use Cardiovascular Cardiovascular exam: Present regular rate and normal rhythm Abdominal Exam Abdominal exam: Present soft; Absent distention, tenderness or guarding Extremities Exam Extremities exam: Present normal inspection, full ROM and normal capillary refill; Absent tenderness or edema Back Exam Back exam: Present full ROM and tenderness (bilateral hips/upper legs) Comment: All compartment soft. Neurovascularly intact. Neurological Exam Neurological exam: Present alert, oriented X3, CN II-XII intact and normal gait; Absent motor sensory deficit Psychiatric Psychiatric exam: Present normal affect and normal mood Skin Skin exam: Present warm and dry Medical Decision Making Medical Records Medical records reviewed: Yes I reviewed the patient's medical records. Screening: Per USPSTF and CDC recommendations, given the prevalence of disease in our region, it is our hospital?s policy to screen for HIV and viral Hepatitis for all patients aged 18 and over and those with ongoing risk factors. Reyes Inquiry Pt receiving controlled substance: No Vital Signs: 06/06/24 09:43 06/06/24 09:46 06/06/24 10:30 Temperature 97.7 F Temperature Source Oral Pulse Rate 58 L 101 H Pulse Rate [Right] 98 H Respiratory Rate 18 Blood Pressure 163/126 H 187/133 H Blood Pressure [Right Arm] 168/100 H Blood Pressure Mean [Right Arm] 122 Blood Pressure Source [Right Arm] Automatic Cuff 02 Sat by Pulse Oximetry 99 98 97 Oxygen Delivery Method Room Air Room Air Room Air 06/06/24 10:45 Temperature Temperature Source Pulse Rate 92 H Pulse Rate [Right] Respiratory Rate Blood Pressure 191/99 H Blood Pressure [Right Arm] Blood Pressure Mean [Right Arm] Blood Pressure Source [Right Arm] 02 Sat by Pulse Oximetry 96 Oxygen Delivery Method Room Air Lab Data Lab results reviewed: Yes I reviewed the patient's lab results. Lab Results 06/06/24 09:53: SARS-CoV-2 (PCR) Not detected, Influenza A Untype (PCR) Not detected, Influenza Type B (PCR) Not detected 06/06/24 11:15: WBC 4.8, RBC 4.32 L, Hgb 12.0 L, Hct 34.0 L, MCV 78.7 L, MCH 27.8, MCHC 35.3, RDW 14.6, Plt Count 239, MPV 10.6 H, Neut % (Auto) 59.4, Lymph % (Auto) 27.4, [place] % (Auto) 11.8 H, Eos % (Auto) 0.6, Baso % (Auto) 0.6, Neut # (Auto) 2.8, Lymph # (Auto) 1.3, [place] # (Auto) 0.6, Eos # (Auto) 0.0, Baso # (Auto) 0.0, Sodium 140, Potassium 3.8, Chloride 107, Carbon Dioxide 27, Anion Gap 9.8, BUN 11, Creatinine 1.00, Estimated Creat Clear 56, Estimated GFR 71, Est GFR ( Amer) 85, Glucose 115 H, Calcium 8.9, Total Bilirubin 0.9, AST 21, ALT 12, Alkaline Phosphatase 56, Total Creatine Kinase 59, Total Protein 6.8, Albumin 3.8, Globulin 3.0, Albumin/Globulin Ratio 1.3 06/06/24 11:15 06/06/24 11:15 Orders (Tests/Meds): ED MEDICATIONS Discontinued Medications Generic Name Dose Route Start Last Admin Trade Name Josesitoq PRN Reason Stop Dose Admin Acetaminophen 1,000 mg 06/06/24 09:53 06/06/24 10:28 Acetaminophen 500mg Tab PO 06/06/24 09:54 1,000 mg ONCE ONE Administration Amoxicillin/Clavulanate Potassium 1 each 06/06/24 11:21 06/06/24 11:27 Amoxicillin/Clavulanate Potassium 875/125mg Tablet PO 06/06/24 11:22 1 each ONCE ONE Administration Ketorolac Tromethamine 30 mg 06/06/24 09:53 06/06/24 10:29 Ketorolac 30mg/Ml Vial IM 06/06/24 09:54 30 mg ONCE ONE Administration Methocarbamol 500 mg 06/06/24 09:53 06/06/24 10:29 Methocarbamol 500mg Tablet PO 06/06/24 09:54 500 mg ONCE ONE Administration ORDERS Category Date Time Status CT cervical spine wo con Stat Cat Scan 06/06/24 09:[address] head/brain wo con Stat Cat Scan 06/06/24 09:[address] lumbar spine wo con Stat Cat Scan 06/06/24 09:[address] thoracic spine wo con Stat Cat Scan 06/06/24 09:46 Completed CXR --portable [XR chest portable] Stat Exams 06/06/24 09:50 Completed Femur XR left 2 views [XR femur LT 2V] Stat Exams 06/06/24 09:46 Completed Femur XR right 2 views [XR femur RT 2V] Stat Exams 06/06/24 09:46 Completed Pelvis XR 1-2 views [XR pelvis 1-2V] Stat Exams 06/06/24 09:46 Completed CBC w/Auto Diff [Complete Blood Count Auto Diff] Stat Lab 06/06/24 11:15 Completed CK [Creatine Kinase] Stat Lab 06/06/24 11:15 Completed CMP [Comprehensive Metabolic Panel] Stat Lab 06/06/24 11:15 Completed Rapid PCR Covid and Flu A/B Stat Lab 06/06/24 09:53 Completed Medical Decision Narrative: In summary, this patient is a 88-year-old male presenting to the Emergency Department for evaluation of bilateral leg pain. He also has productive cough. Differential diagnoses considered include but are not limited to back pain with sciatica, osteoarthritis, fracture, rhabdomyolysis, pneumonia. Ruling out the most morbid conditions drove assessment. It should be noted patient's history includes chronic back pain with bilateral sciatica, chronic knee osteoarthritis, BPH, hypertension, hyperlipidemia which may not be at goal therapy. This complicates all aspects of care by increasing patient's risk for morbidity. I reviewed patient's past medical records and noted multiple previous evaluations in [facility] and in ED for back pain with bilateral sciatica. On exam, the patient is lying in bed in no acute distress. He is ambulatory. He has pain in both of his legs, especially the upper legs radiating down his legs. Compartments are soft and he is neurovascularly intact distally. I do not have any concern for emergent pathology such as cauda equina syndrome or spinal cord compression based on reassuring history and exam. He has cough that is productive, but normal vitals on cardiac telemetry on room air, no increased work of breathing, reassuring cardiopulmonary exam workup included CT scans of the head and spines given recent falls as well as pain as well as x-rays of the pelvis and bilateral femurs where the patient seems to be having the most pain. I also obtain basic labs including CBC, CMP, CK. Patient was given Toradol, Tylenol, Robaxin for symptomatic improvement. I independently interpreted x-ray and CT prior to the radiologist read and noted no acute fracture. I do not see large focal pneumonia. Please see their read for final interpretation. Patient does have findings concerning for aspiration into his airway noted on CT scan. Given the productive nature of his cough and high risk because of his age, we will plan to treat with Augmentin. I recommend that he follow-up outpatient with primary care for outpatient swallow evaluation. Labs were obtained that demonstrated reassuring CBC with no significant leukocytosis. Chemistry is reassuring with normal kidney function, negative CK.. On reassessment, patient had great improvement after administration of interventions above. He is feeling better and is ready to go home. I feel he is appropriate for discharge with close follow-up with primary care. Strict return precautions given in addition to prescription for Augmentin for productive cough and concern for aspiration. Critical Care Critical Care Time Critical Care Time: No
[2024-06-06 09:57] LABS: Coronavirus 19, PCR Not Detected (NotDetected); Influenza A, PCR Not Detected (NotDetected); Influenza B, PCR Not Detected (NotDetected)
[2024-06-06] MEDS: ACETAMINOPHEN 500MG TAB 1000 MG PO (10:28)
[2024-06-06] MEDS: KETOROLAC 30MG/ML VIAL 30 MG IM (10:29)
[2024-06-06] MEDS: METHOCARBAMOL 500MG TABLET 500 MG PO (10:29)
[2024-06-06 10:30] VITALS: BP 187/133; PULSE 101; O2SAT 97
--- NOTE | 2024-06-06 10:42 | PC.NURSE ---
ROUNDED ON THE PT. THE PT VOICES THAT HE DOES NOT NEED ANYTHING AT THIS TIME. CALL LIGHT IS WITHIN REACH OF THE PT.
[2024-06-06 10:45] VITALS: BP 191/99; PULSE 92; O2SAT 96
[2024-06-06 11:24] LABS: Basophils % 0.6 % (0.1-2.0); Eosinophils % 0.6 % (0.1-12.0); Lymphocytes # 1.3 K/mm3 (0.7-4.5); Lymphocytes % 27.4 % (10-50); Mean Corpuscular HGB Conc 35.3 g/dL (31.8-35.4); Mean Corpuscular Hemoglobin 27.8 pg (27.0-31.2); Mean Corpuscular Volume 78.7 fl (80-94); Mean Platelet Volume 10.6 fl (7.4-10.4); Monocytes # 0.6 K/mm3 (0.1-1.0); Monocytes % 11.8 % (1.7-9.3); Neutrophils # 2.8 K/mm3 (1.8-7.8); Neutrophils % 59.4 % (37.0-80.0); Platelet Count 239 K/mm3 (142-424); Red Blood Count 4.32 M/mm3 (4.60-6.20); Red Cell Distribution Width 14.6 % (11.5-17.5); White Blood Count 4.8 K/mm3 (4.8-10.8)
[2024-06-06] MEDS: AMOXICILLIN/CLAVULANATE POTASSIUM 875/125MG TABLET 1 EACH PO (11:27)
--- NOTE | 2024-06-06 11:29 | PC.NURSE ---
I rounded on the pt. no new complaints at this time. no needs voiced. call bagley in reach.
[2024-06-06 11:30] LABS: Albumin Level 3.8 g/dl (3.5-5.0); Chloride 107 mmol/L (98-107); Potassium 3.8 mmoL/L (3.5-5.1); Sodium 140 mmol/L (136-145)
[2024-06-06 11:32] LABS: Blood Urea Nitrogen 11 mg/dl (9-20)
[2024-06-06 11:33] LABS: Alanine Aminotransferase 12 U/L (12-78); Albumin/Globulin Ratio 1.3 (1.1-1.8); Alkaline Phosphatase 56 U/L (38-126); Anion Gap 9.8 mEq/L (5-15); Aspartate Amino Transferase 21 U/L (17-59); Bilirubin,Total 0.9 mg/dl (0.2-1.3); Carbon Dioxide 27 mmol/L (22.0-30.0); Creatine Kinase 59 U/L (55-170); Creatinine Clearance Estimated 56 mL/min (50-200); Estimated Glomerular Filt Rate 71 ml/min (>60); GFR (African American) 85 ML/MIN (>60); Total Protein,Serum 6.8 g/dl (6.3-8.2)
[2024-06-06 11:34] LABS: Calcium 8.9 mg/dl (8.4-10.2); Glucose 115 mg/dl (74-100)
--- NOTE | 2024-06-06 11:57 | PC.NURSE ---
I spoke with a member of the [facility] caravan transport. They agreed to transfer the pt home. She states they will be here in 5-10minutes.
[2024-06-06 12:17] VITALS: BP 165/81; PULSE 88; RESP 14; TEMP 36.5; O2SAT 97
== END 2024-06-06 12:20 | disposition home or self-care (01) ==
PROVIDERS: Emergency Provider Emergency Medicine
DX: M54.42 Lumbago with sciatica, left side (principal); T17.908A Unspecified foreign body in respiratory tract, part unspecified causing other injury, initial encounter; M79.604 Pain in right leg; M79.605 Pain in left leg; R05.9 Cough, unspecified
CPT/HCPCS: 70450; 71045; 72125; 72128; 72131; 72170; 73552; 80053; 82550; 85025; 87636; 96372; 99285; J1885

== ENCOUNTER 2024-07-26 11:19 | Emergency (ER) | payer OTHER, SELFPAY ==
[2024-07-26] VITALS (8 sets, daily range): BP systolic 122–146; BP diastolic 65–88; PULSE 53–68; RESP 18–20; TEMP 36.7; O2SAT 93–97; BMI 22.9
[2024-07-26 11:40] LABS: Basophils % 0.5 % (0.1-2.0); Eosinophils # 0.1 K/mm3 (0.0-0.4); Eosinophils % 1.7 % (0.1-12.0); Hematocrit 35.6 % (42.0-52.0); Hemoglobin 12.8 g/dL (14.1-18.0); Lymphocytes # 1.3 K/mm3 (0.7-4.5); Lymphocytes % 20.9 % (10-50); Mean Corpuscular Hemoglobin 28.6 pg (27.0-31.2); Mean Corpuscular Volume 79.5 fl (80-94); Mean Platelet Volume 10.1 fl (7.4-10.4); Monocytes # 0.8 K/mm3 (0.1-1.0); Monocytes % 12.5 % (1.7-9.3); Neutrophils # 4.1 K/mm3 (1.8-7.8); Neutrophils % 64.1 % (37.0-80.0); Nucleated Red Blood Cells # 0 10^3/uL; Nucleated Red Blood Cells % 0 %; Platelet Count 209 K/mm3 (142-424); Red Blood Count 4.48 M/mm3 (4.60-6.20); Red Cell Distribution Width 14.9 % (11.5-17.5); Red Cell Distribution Width-SD 43.5 fL; White Blood Count 6.4 K/mm3 (4.8-10.8)
--- NOTE | 2024-07-26 11:41 | CT_ITS ---
FINAL REPORT TECHNIQUE: IV contrast enhanced exam This study was performed with techniques to keep radiation doses as low as reasonably achievable, (ALARA). Individualized dose reduction techniques using automated exposure control or adjustment of mA and/or kV according to the patient's size were employed. CLINICAL HISTORY: urinary retention/constipation rectal pain COMPARISON: 08/03/2019 FINDINGS: CT ABDOMEN AND PELVIS WITH CONTRAST: Abdomen: There is a moderate right pleural effusion present, with a tiny left pleural effusion. Liver has an unremarkable CT appearance. The spleen, pancreas and adrenal glands are unremarkable. Kidneys demonstrate numerous bilateral renal cysts, the largest of which is in the anterior left kidney measuring up to 9.1 cm, was previously 8.3 cm on the prior exam. No evidence of hydronephrosis is noted. No bowel obstruction or fluid collection is seen. Pelvis: Fecal impaction is present, most pronounced in the rectal vault which is dilated to a diameter greater than 6 cm. Pelvic bowel loops are unremarkable. No fluid collection or adenopathy is seen. The prostate is not enlarged. There is a decompressed bladder with a Benjamin catheter. The appendix is not visualized. IMPRESSION: Fecal impaction, most pronounced in the rectal vault, which is dilated greater than 6 cm. Decompressed bladder with a Benjamin and catheter present. No evidence of urinary tract obstruction. Reviewed, Interpreted and Dictated by Vu Franklin MD Transcribed by Luz Maria Oh Authenticated and [facility]
--- NOTE | 2024-07-26 11:47 | PC.NURSE ---
bladder scan reveals >400 ml.
[2024-07-26 11:49] LABS: Albumin Level 4.3 g/dl (3.5-5.0); Chloride 105 mmol/L (98-107); Potassium 3.9 mmoL/L (3.5-5.1); Sodium 142 mmol/L (136-145)
[2024-07-26 11:51] LABS: Blood Urea Nitrogen 19 mg/dl (9-20); Creatinine Clearance Estimated 52 mL/min (50-200); Estimated Glomerular Filt Rate 80 ml/min (>60); GFR (African American) 96 ML/MIN (>60)
[2024-07-26 11:52] LABS: Alanine Aminotransferase 23 U/L (12-78); Albumin/Globulin Ratio 1.2 (1.1-1.8); Alkaline Phosphatase 77 U/L (38-126); Anion Gap 13.9 mEq/L (5-15); Aspartate Amino Transferase 40 U/L (17-59); Bilirubin,Total 0.5 mg/dl (0.2-1.3); Calcium 9.6 mg/dl (8.4-10.2); Carbon Dioxide 27 mmol/L (22.0-30.0); Globulin 3.5 g/dL (1.3-3.2); Glucose 110 mg/dl (74-100); Total Protein,Serum 7.8 g/dl (6.3-8.2)
--- NOTE | 2024-07-26 11:52 | PC.NURSE ---
rounded on patient, call light w/i reach.
--- NOTE | 2024-07-26 11:55 | HMH.EDGENADL ---
Discharge Plan Disposition Patient Disposition: Home, Self-Care Chief Complaint: Urogenital-Male Prescriptions Prescriptions: No Action tamsulosin [Flomax] 0.4 mg Capsule 0.8 mg PO HS carvedilol 6.25 mg Tablet 6.25 mg PO BID Qty: 60 0RF potassium chloride 20 mEq Tablet,Er Particles/Crystals 20 meq PO DAILY Qty: 30 0RF amlodipine [Norvasc] 5 mg Tablet 5 mg PO DAILY Qty: 30 0RF aspirin 325 mg Tablet,Delayed Release (Dr/Ec) 325 mg PO DAILY Qty: 30 0RF finasteride [Proscar] 5 mg Tablet 5 mg PO DAILY Qty: 30 0RF diltiazem HCl 360 mg Tablet Extended Release 24 Hr 360 mg PO DAILY Qty: 30 0RF rosuvastatin [Crestor] 10 mg Tablet 5 mg PO HS Qty: 30 0RF diclofenac sodium 1 % Gel 2 g TOPICAL Q6HP PRN (Reason: Pain) Qty: 100 0RF Rx Instructions: apply to both knees as needed omeprazole 20 mg Tablet,Delayed Release (Dr/Ec) 40 mg PO BID MDD Acid rflux Qty: 30 0RF bisacodyl [Dulcolax (bisacodyl)] 10 mg suppository 10 mg SC DAILY PRN (Reason: constipation) Qty: 12 0RF amoxicillin-pot clavulanate 875-125 mg tablet 1 tab PO BID Qty: 20 0RF Referrals Follow up/Referrals: Simba Fleming DO [Staff Physician] - See instructions Provider,Referral, MD [Primary Care Provider] - See instructions Activity Restrictions/Add. Instructions Additional Instructions/Restrictions: At this time it was felt you are safe to be discharged home. If new or worsening symptoms please do not hesitate to return the emergency department. Please call and schedule an appointment with your [facility] family doctor as soon as you are able to see when you are ready to get your Benjamin catheter out. If you are unable to do this please call and schedule appoint with Dr. Fleming as soon as possible to establish care. Clinical Impressions Clinical Impression: Obstructed, uropathy, Fecal impaction Instructions Patient Instructions: DI for Urinary Tract Infection (UTI), DI for Urinary Tract Infection in Children Print Language Print Language: Wallisian Discharge ED Provider: Manuel Jade General Adult HPI General Chief complaint: Urogenital-Male Stated complaint: Incontinent Time Seen by Provider: 07/26/24 11:48 Mode of Arrival: EMS Source of Information: Patient Description of Symptoms (Recalled from ER Triage Doc. by RN): pt presents to ED c/o being unable to pee or poop. pt denies fever, diarrhea or abdominal pain. History of Present Illness HPI narrative: Patient is a 88-year-old male with past medical history of chronic difficulty picking up presents emergency department for evaluation of constipation and difficulty voiding. He has had a little bit of stool come out but nothing of any significant amount. No blood. He also has had difficulty voiding and has a history of BPH for which he is supposed to take tamsulosin and finasteride for which he is intermittently compliant. No saddle anesthesia no difficulty walking no anterior abdominal pain. Please note that above description of symptoms, in this electronic medical record under categorization of recalled from ER triage doctor by RN are reflective of an initial nursing assessment, however, is not reflective of my full history and physical exam that was personally taken and clarified. Consequentially, this preceding description of symptoms, which may include the patient's categorized chief complaint in the EMR, do not reflect my personal clinical impression, and the ultimate description of history of present illness and patient stated complaints should be deferred to this section of the note. Unless stated otherwise or congruent with this section of the note, additional signs, symptoms, or incongruence should be interpreted as inaccurate with my clinical impression. Related Data Home Medications ?Medication ?Instructions ?Recorded ?Confirmed tamsulosin 0.4 mg capsule (Flomax) 0.8 mg PO HS Prostate 04/06/22 06/06/24 Previous Rx's ?Medication ?Instructions ?Recorded amlodipine 5 mg tablet (Norvasc) 5 mg PO DAILY Hypertension #30 tabs 04/08/22 aspirin 325 mg tablet,delayed 325 mg PO DAILY Heart health #30 04/08/22 release tabs carvedilol 6.25 mg tablet 6.25 mg PO BID #60 tabs 04/08/22 diclofenac sodium 1 % topical gel 2 g topical Q6HP PRN Pain #100 04/08/22 grams diltiazem HCl 360 mg 360 mg PO DAILY Hypertension #30 04/08/22 tablet,extended release 24 hr tabs finasteride 5 mg tablet (Proscar) 5 mg PO DAILY Prostate #30 tabs 04/08/22 omeprazole 20 mg tablet,delayed 40 mg (2 x 20 mg) PO BID Acid 04/08/22 release reflux #30 tabs potassium chloride 20 mEq 20 meq PO DAILY #30 tabs 04/08/22 tablet,extended release(part/cryst) rosuvastatin 10 mg tablet (Crestor) 5 mg (1/2 x 10 mg) PO HS 04/08/22 Cholesterol #30 tabs bisacodyl 10 mg rectal suppository 10 mg SC DAILY PRN constipation 03/06/23 (Dulcolax (bisacodyl)) #12 ea amoxicillin 875 mg-potassium 1 tab PO BID #20 tabs 06/06/24 clavulanate 125 mg tablet Allergies Allergy/AdvReac Type Severity Reaction Status Date / Time No Known Allergies Allergy Verified 06/06/24 10:17 [facility] Disclaimer: The information contained in this section may have been updated after the patient was seen, as this information can be updated by other users. Medical History UTI (urinary tract infection) BPH (benign prostatic hyperplasia) Social History Smoking Status: Never smoker alcohol intake: former substance use type: denies use current occupational status: retired and other Travel in the last 8 weeks: None household members: none housing: apartment Have you lived/traveled outside US in past 30 days?: No Contact w/someone who lives/traveled outside US past 30 days?: No Exposure to someone with infectious disease in past 14 days?: No Do you have a fever (greater than 100.4 F or 38 C)?: No Have you tested positive for COVID-19: No Exposed to someone with COVID-19 in past 14 days?: No Do you have a sore throat?: No Do you have a cough?: No Do you have any weakness?: No Do you have any diarrhea?: No Are you experiencing any unusual bleeding?: No Do you have any muscle aches/pain?: No Do you have any abdominal pain?: No Are you experiencing loss of taste or smell?: No Other Medical History Have you received the Flu Vaccine for this season: No Have you received the Pneumonia Vaccine: No ROS Obtained: Yes Systems reviewed as appropriate & no additional complaints except as documented Physical Exam General General appearance: alert and in no apparent distress Head Head exam: atraumatic and normocephalic Eye Eye exam: Present PERRL and EOMI ENT ENT exam: Present mucous membranes moist Neck Neck exam: Present normal inspection Chest Chest inspection: Present normal inspection and symmetric chest wall rise Respiratory Respiratory exam: Present normal lung sounds bilaterally; Absent respiratory distress Cardiovascular Cardiovascular exam: Present regular rate and normal rhythm Abdominal Exam Abdominal exam: Present soft; Absent tenderness Extremities Exam Extremities exam: Present normal inspection Neurological Exam Neurological exam: Present alert Psychiatric Psychiatric exam: Present normal affect Skin Skin exam: Present warm and dry Medical Decision Making Medical Records Screening: Per USPSTF and CDC recommendations, given the prevalence of disease in our region, it is our hospital?s policy to screen for HIV and viral Hepatitis for all patients aged 18 and over and those with ongoing risk factors. Reyes Inquiry Pt receiving controlled substance: No Vital Signs: 07/26/24 11:25 07/26/24 11:34 07/26/24 12:00 Temperature 98.1 F Temperature Source Oral Pulse Rate 64 66 Pulse Rate [Right Radial] 68 Respiratory Rate 18 Blood Pressure 146/88 H 140/84 Blood Pressure [Right Arm] 132/72 Blood Pressure Mean 96 90 Blood Pressure Mean [Right Arm] 92 Blood Pressure Source [Right Arm] Automatic Cuff Blood Pressure Position [Right Arm] Sitting 02 Sat by Pulse Oximetry 97 97 96 Oxygen Delivery Method Room Air 07/26/24 12:31 07/26/24 13:00 07/26/24 13:30 Temperature Temperature Source Pulse Rate 57 L 53 L 66 Pulse Rate [Right Radial] Respiratory Rate Blood Pressure 133/75 130/72 122/65 Blood Pressure [Right Arm] Blood Pressure Mean 85 90 84 Blood Pressure Mean [Right Arm] Blood Pressure Source [Right Arm] Blood Pressure Position [Right Arm] 02 Sat by Pulse Oximetry 97 94 L 93 L Oxygen Delivery Method 07/26/24 14:00 Temperature Temperature Source Pulse Rate 62 Pulse Rate [Right Radial] Respiratory Rate Blood Pressure 137/67 Blood Pressure [Right Arm] Blood Pressure Mean 94 Blood Pressure Mean [Right Arm] Blood Pressure Source [Right Arm] Blood Pressure Position [Right Arm] 02 Sat by Pulse Oximetry 94 L Oxygen Delivery Method Lab Data Lab Results 07/26/24 11:34: WBC 6.4, RBC 4.48 L, Hgb 12.8 L, Hct 35.6 L, MCV 79.5 L, MCH 28.6, MCHC 36.0 H, RDW 14.9, Plt Count 209, MPV 10.1, Neut % (Auto) 64.1, Lymph % (Auto) 20.9, [place] % (Auto) 12.5 H, Eos % (Auto) 1.7, Baso % (Auto) 0.5, Neut # (Auto) 4.1, Lymph # (Auto) 1.3, [place] # (Auto) 0.8, Eos # (Auto) 0.1, Baso # (Auto) 0.0, Sodium 142, Potassium 3.9, Chloride 105, Carbon Dioxide 27, Anion Gap 13.9, BUN 19, Creatinine 0.90, Estimated Creat Clear 52, Estimated GFR 80, Est GFR ( Amer) 96, Glucose 110 H, Calcium 9.6, Total Bilirubin 0.5, AST 40, ALT 23, Alkaline Phosphatase 77, Total Protein 7.8, Albumin 4.3, Globulin 3.5 H, Albumin/Globulin Ratio 1.2, Lipase 37 07/26/24 11:50: Urine Color Yellow, Urine Appearance Clear, Urine pH 7.0, Ur Specific [place] <= 1.005, Urine Protein Negative, Urine Glucose (UA) Negative, Urine Ketones Negative, Urine Blood Negative, Urine Nitrate Negative, Urine Bilirubin Negative, Urine Urobilinogen 0.2, Ur Leukocyte Esterase Negative, Urine RBC None, Urine WBC None, Ur Squamous Epith Cells None, Urine Bacteria None, Urine Mucus Trace 07/26/24 11:34 07/26/24 11:34 Orders (Tests/Meds): ED MEDICATIONS Discontinued Medications Generic Name Dose Route Start Last Admin Trade Name Freq PRN Reason Stop Dose Admin Iopamidol 75 ml 07/26/24 12:19 07/26/24 12:22 Iopamidol-370 (76%);100ml Bottle IV 07/26/24 12:20 75 ml ONCE ONE Administration Sodium Chloride 10 ml 07/26/24 12:19 07/26/24 12:22 Sodium Chloride 0.9% 10ml Syr (Rad Only) IV 07/26/24 12:20 10 ml ONCE ONE Administration ORDERS Category Date Time Status CT abdomen pelvis w con Stat Cat Scan 07/26/24 11:41 Completed Complete Blood Count Auto Diff Stat Lab 07/26/24 11:34 Completed Comprehensive Metabolic Panel Stat Lab 07/26/24 11:34 Completed Lipase Stat Lab 07/26/24 11:34 Completed UA [Urinalysis and Microscopic] Stat Lab 07/26/24 11:50 Completed Medical Decision Narrative: In summary patient is a 88-year-old male with past medical history described above who presents emergency department for evaluation of constipation and urinary retention. Patient is hemodynamically stable nontoxic-appearing but normal, afebrile. With respect to constipation differential includes chronic constipation, stercoral colitis, among others. Urinary retention includes BPH, other causes of obstructive uropathy, urinary tract infection, among others. Workup in totality will be conducted with hematologic labs, urinalysis, CT of the abdomen pelvis with IV contrast. Postvoid residual 400 Benjamin will be anchored. Initial workup reviewed by me, no significant leukocytosis or anemia no YAMINI or critical electrolyte abnormality urinalysis interpreted by me and not consistent with infection. CT imaging of the abdomen and pelvis fecal impaction for which patient will undergo enema. Patient underwent serial enemas with success with large bowel movement. Given obstructive uropathy in the setting of BPH we will keep the Benjamin in and he will follow-up with his PCP as soon as he is able to do voiding trial. Patient was given return precautions. Critical Care Critical Care Time Critical Care Time: No
[2024-07-26 11:58] LABS: Microscopic, Urine URINE MICROSCOPIC (MICROSCOPIC)
[2024-07-26 12:06] LABS: Lipase 37 U/L (23-300)
[2024-07-26 12:07] LABS: Appearance,Urine CLEAR (Clear); Bilirubin,Urine Negative (Negative); Blood, Urine Negative (Negative); Color,Urine YELLOW (Yellow); Glucose,Urine (UA) Negative (Negative); Ketones,Urine Negative (Negative); Leukocyte Esterase,Urine Negative (Negative); Nitrate,Urine Negative (Negative); Protein,Urine Negative (Negative); Specific Gravity, Urine <= 1.005 (1.005-1.030); Urobilinogen,Urine 0.2 EU/dl (0.2)
[2024-07-26] MEDS: SODIUM CHLORIDE 0.9% 10ML SYR (RAD ONLY) 10 ML IV (12:22)
[2024-07-26] MEDS: IOPAMIDOL-370 (76%);100ML BOTTLE 75 ML IV (12:22)
[2024-07-26 12:30] LABS: Mucus,Urine Trace /lpf
--- NOTE | 2024-07-26 16:15 | PC.NURSE ---
Called pt's sister, Saranya Carter and explained d/c instructions with her. She is going to contact [place] health to see pt in the morning. States pt walks in his home and don't let him fool you he can walk . Called the [facility] and let them know pt is ready for miner pick. Saranya Carter states pt's Caregiver/neighbor Susy is at his house with his house keys and will help him into the home and review d/c instructions as well [facility].
== END 2024-07-26 16:17 | disposition home or self-care (01) ==
PROVIDERS: Emergency Provider Emergency Medicine
DX: N13.9 Obstructive and reflux uropathy, unspecified (principal); K56.41 Fecal impaction; R33.8 Other retention of urine; N40.1 Benign prostatic hyperplasia with lower urinary tract symptoms
CPT/HCPCS: 99284; 51702; 74177; 80053; 81001; 83690; 85025; Q9967

== ENCOUNTER 2024-07-28 09:06 | Emergency (ER) | payer OTHER, SELFPAY ==
[2024-07-28] VITALS (7 sets, daily range): BP systolic 135–177; BP diastolic 82–105; PULSE 62–116; RESP 13; TEMP 37.1; O2SAT 95–100; BMI 27.3
--- NOTE | 2024-07-28 09:09 | PC.NURSE ---
dr palmer at bedside
--- NOTE | 2024-07-28 09:10 | CT_ITS ---
PROCEDURE INFORMATION: Exam: CT Abdomen And Pelvis Without Contrast Exam date and time: 07/28/2024 9:37 AM Age: 88 years old Clinical indication: Other: Catheter not draining properly, recent fecal impac TECHNIQUE: Imaging protocol: Computed tomography of the abdomen and pelvis without contrast. Radiation optimization: All CT scans at this facility use at least one of these dose optimization techniques: automated exposure control; mA and/or kV adjustment per patient size (includes targeted exams where dose is matched to clinical indication); or iterative reconstruction. COMPARISON: CT ABDOMEN PELVIS W CON 07/26/2024 12:13 PM FINDINGS: Pleural spaces: Moderate right and small left pleural effusions. Liver: Normal. No mass. Gallbladder and biliary ducts: Normal. No calcified stones. No ductal dilation. Pancreas: Normal. No ductal dilation. Spleen: Normal. No splenomegaly. Adrenal glands: Normal. No mass. Kidneys and ureters: Stable large cortical renal cysts bilaterally, all simple in appearance. No hydronephrosis. Stomach and bowel: Stable moderate distension of rectum with stool measuring 6.3 x 6.5 cm. No proximal obstruction. Appendix: No evidence of appendicitis. Intraperitoneal space: Unremarkable. No free air. No significant fluid collection. Vasculature: Unremarkable. No abdominal aortic aneurysm. Lymph nodes: Unremarkable. No enlarged lymph nodes. Urinary bladder: Benjamin catheter in the urinary bladder. Continued bladder wall thickening, now with gas in the anterior bladder wall compatible with emphysematous cystitis. Reproductive: Unremarkable as visualized. Bones/joints: Unremarkable. No acute fracture. Soft tissues: Unremarkable. IMPRESSION: 1. Continued bladder wall thickening, now with gas in the anterior bladder wall compatible with emphysematous cystitis. 2. Moderate right and small left pleural effusions. 3. Stable moderate distension of rectum with stool measuring 6.3 x 6.5 cm. No proximal obstruction. Findings were discussed with Janell Boyer on 07/28/2024 10:00 AM EDT
--- NOTE | 2024-07-28 09:22 | PC.NURSE ---
Pt arrived with large amount urine in castaneda catheter bad, emptied upon arrival after repositioning catheter, pt catheter line was positioned coming out of the top of his pants. Pt pants removed, catheter repositioned, urine draining from catheter. 600 mL of urine emptied from catheter prior to bladder scan. bladder scan showed 28mL in bladder. ER MD Dowling notified.
--- NOTE | 2024-07-28 09:31 | HMH.EDGENADL ---
Discharge Plan Disposition Patient Disposition: Home, Self-Care Condition: Good Prescriptions Prescriptions: New polyethylene glycol 3350 [Miralax] 17 gram/dose powder 17 g PO DAILY PRN (Reason: constipation) Qty: 510 0RF sennosides 8.6 mg tablet 8.6 mg PO DAILY Qty: 30 0RF levofloxacin 750 mg tablet 750 mg PO DAILY 7 Days Qty: 7 0RF No Action tamsulosin [Flomax] 0.4 mg Capsule 0.8 mg PO HS carvedilol 6.25 mg Tablet 6.25 mg PO BID Qty: 60 0RF potassium chloride 20 mEq Tablet,Er Particles/Crystals 20 meq PO DAILY Qty: 30 0RF amlodipine [Norvasc] 5 mg Tablet 5 mg PO DAILY Qty: 30 0RF aspirin 325 mg Tablet,Delayed Release (Dr/Ec) 325 mg PO DAILY Qty: 30 0RF finasteride [Proscar] 5 mg Tablet 5 mg PO DAILY Qty: 30 0RF diltiazem HCl 360 mg Tablet Extended Release 24 Hr 360 mg PO DAILY Qty: 30 0RF rosuvastatin [Crestor] 10 mg Tablet 5 mg PO HS Qty: 30 0RF diclofenac sodium 1 % Gel 2 g TOPICAL Q6HP PRN (Reason: Pain) Qty: 100 0RF Rx Instructions: apply to both knees as needed omeprazole 20 mg Tablet,Delayed Release (Dr/Ec) 40 mg PO BID MDD Acid rflux Qty: 30 0RF bisacodyl [Dulcolax (bisacodyl)] 10 mg suppository 10 mg IN DAILY PRN (Reason: constipation) Qty: 12 0RF amoxicillin-pot clavulanate 875-125 mg tablet 1 tab PO BID Qty: 20 0RF Referrals Follow up/Referrals: Tone Carroll II, MD [Staff Physician] - See instructions Clark Ding MD [Staff Physician] - See instructions Provider,MD Tucker [Primary Care Provider] - See instructions Activity Restrictions/Add. Instructions Additional Instructions/Restrictions: You were evaluated in the emergency department today. Your Castaneda catheter is draining fine, but it does look like you have a bladder infection. carton and can supply supervisor your prescription for antibiotic and take the full course as prescribed. You were also diagnosed with constipation and fecal impaction. He also has small pleural effusions, which can be monitored on an outpatient basis. Please oyster picker your prescriptions at the pharmacy and take them as needed for constipation. Follow-up closely with your primary care provider as well as with GI and urology. Clinical Impressions Clinical Impression: Fecal impaction, Constipation, Renal cyst, Castaneda catheter in place, Pleural effusion, Emphysematous cystitis Instructions Patient Instructions: How to Care for Your Castaneda Catheter -- Male, DI for Constipation Print Language Print Language: Mongolian Discharge ED Provider: Janell Dowling General Adult HPI General Chief complaint: Urogenital-Male Stated complaint: catherer issues Time Seen by Provider: 07/28/24 09:10 Mode of Arrival: EMS Source of Information: EMS Description of Symptoms (Recalled from ER Triage Doc. by RN): EMS states they were called to scene for difficulties with catheter. pt slightly confused. pt states that he did not make urine all night. upon arrival via ems pt had 600 ml in castaneda cath bag. PVR 28 ml. pt with no complaints of pain, shortness of air. no n/v/d. History of Present Illness HPI narrative: This patient is an 88-year-old male with a history of BPH and chronic constipation presenting to the emergency department for evaluation concern for difficulties with his urinary catheter. Patient was evaluated here 07/26/24 for an ability to urinate or have a bowel movement. He was found to have fecal impaction and urinary retention. He was given enema with good bowel movement and also had a Castaneda catheter placed with good urine outflow. Given this, he was discharged home with outpatient follow-up. He notes that today, he felt pressure in his lower abdomen but could not urinate. He notes that his catheter was not draining. EMS noted that they witnessed his catheter drain a good amount while standing at his home and now the patient states he feels better. He denies any physical concerns or complaints at this time. No fevers, chills, nausea, vomiting. He notes that he has not had a bowel movement since discharge . Related Data Home Medications ?Medication ?Instructions ?Recorded ?Confirmed tamsulosin 0.4 mg capsule (Flomax) 0.8 mg PO HS Prostate 04/06/22 06/06/24 Previous Rx's ?Medication ?Instructions ?Recorded amlodipine 5 mg tablet (Norvasc) 5 mg PO DAILY Hypertension #30 tabs 04/08/22 aspirin 325 mg tablet,delayed 325 mg PO DAILY [facility] #30 04/08/22 release tabs carvedilol 6.25 mg tablet 6.25 mg PO BID #60 tabs 04/08/22 diclofenac sodium 1 % topical gel 2 g topical Q6HP PRN Pain #100 04/08/22 grams diltiazem HCl 360 mg 360 mg PO DAILY Hypertension #30 04/08/22 tablet,extended release 24 hr tabs finasteride 5 mg tablet (Proscar) 5 mg PO DAILY Prostate #30 tabs 04/08/22 omeprazole 20 mg tablet,delayed 40 mg (2 x 20 mg) PO BID Acid 04/08/22 release reflux #30 tabs potassium chloride 20 mEq 20 meq PO DAILY #30 tabs 04/08/22 tablet,extended release(part/cryst) rosuvastatin 10 mg tablet (Crestor) 5 mg (1/2 x 10 mg) PO HS 04/08/22 Cholesterol #30 tabs bisacodyl 10 mg rectal suppository 10 mg IN DAILY PRN constipation 03/06/23 (Dulcolax (bisacodyl)) #12 ea amoxicillin 875 mg-potassium 1 tab PO BID #20 tabs 06/06/24 clavulanate 125 mg tablet levofloxacin 750 mg tablet 750 mg PO DAILY 7 days #7 tabs 07/28/24 polyethylene glycol 3350 17 17 g PO DAILY PRN constipation 07/28/24 gram/dose oral powder (Miralax) #510 grams sennosides 8.6 mg tablet 8.6 mg PO DAILY #30 tabs 07/28/24 Allergies Allergy/AdvReac Type Severity Reaction Status Date / Time No Known Allergies Allergy Verified 06/06/24 10:17 [facility] Disclaimer: The information contained in this section may have been updated after the patient was seen, as this information can be updated by other users. Medical History UTI (urinary tract infection) BPH (benign prostatic hyperplasia) Social History Smoking Status: Former smoker tobacco type: cigarettes alcohol intake: former substance use type: denies use current occupational status: retired and other Travel in the last 8 weeks: None household members: none housing: apartment Have you lived/traveled outside US in past 30 days?: No Contact w/someone who lives/traveled outside US past 30 days?: No Exposure to someone with infectious disease in past 14 days?: No Do you have a fever (greater than 100.4 F or 38 C)?: No Have you tested positive for COVID-19: No Exposed to someone with COVID-19 in past 14 days?: No Do you have a sore throat?: No Do you have a cough?: No Do you have any weakness?: No Do you have any diarrhea?: No Are you experiencing any unusual bleeding?: No Do you have any muscle aches/pain?: No Do you have any abdominal pain?: No Are you experiencing loss of taste or smell?: No Other Medical History Have you received the Flu Vaccine for this season: No Have you received the Pneumonia Vaccine: No ROS Obtained: Yes All systems reviewed & no additional complaints except as documented Physical Exam General General appearance: alert and in no apparent distress Head Head exam: atraumatic and normocephalic Eye Eye exam: Present normal appearance, PERRL and EOMI ENT ENT exam: Present normal exam, normal oropharynx, mucous membranes moist and normal external ear exam Neck Neck exam: Present normal inspection, full ROM and trachea midline; Absent tenderness Chest Chest inspection: Present normal inspection and symmetric chest wall rise; Absent tenderness Respiratory Respiratory exam: Present normal lung sounds bilaterally; Absent respiratory distress, wheezes, stridor or accessory muscle use Cardiovascular Cardiovascular exam: Present regular rate and normal rhythm Abdominal Exam Abdominal exam: Present soft; Absent distention, tenderness or guarding exam: Present other (Castaneda catheter in place actively draining urine) Extremities Exam Extremities exam: Present normal inspection, full ROM and normal capillary refill; Absent tenderness or edema Back Exam Back exam: Present normal inspection and full ROM; Absent tenderness Neurological Exam Neurological exam: Present alert, oriented X3, CN II-XII intact and normal gait; Absent motor sensory deficit Psychiatric Psychiatric exam: Present normal affect and normal mood Skin Skin exam: Present warm and dry Medical Decision Making Medical Records Medical records reviewed: Yes I reviewed the patient's medical records. Screening: Per USPSTF and CDC recommendations, given the prevalence of disease in our region, it is our hospital?s policy to screen for HIV and viral Hepatitis for all patients aged 18 and over and those with ongoing risk factors. Reyes Inquiry Pt receiving controlled substance: No Vital Signs: 07/28/24 09:22 07/28/24 09:30 07/28/24 10:01 Temperature 98.7 F Temperature Source Oral Pulse Rate 70 92 H Pulse Rate [Left Radial] 62 Respiratory Rate 13 Blood Pressure 162/82 H 167/87 H Blood Pressure [Right Arm] 162/83 H Blood Pressure Mean Blood Pressure Mean [Right Arm] 109 Blood Pressure Source [Right Arm] Automatic Cuff Blood Pressure Position [Right Arm] Supine 02 Sat by Pulse Oximetry 100 100 96 Oxygen Delivery Method Room Air Room Air Room Air 07/28/24 10:31 07/28/24 11:30 07/28/24 12:01 Temperature Temperature Source Pulse Rate 87 116 H 91 H Pulse Rate [Left Radial] Respiratory Rate Blood Pressure 177/101 H 135/105 H 176/104 H Blood Pressure [Right Arm] Blood Pressure Mean 111 115 Blood Pressure Mean [Right Arm] Blood Pressure Source [Right Arm] Blood Pressure Position [Right Arm] 02 Sat by Pulse Oximetry 97 95 97 Oxygen Delivery Method Room Air Room Air Room Air 07/28/24 12:39 Temperature 98.7 F Temperature Source Pulse Rate 116 H Pulse Rate [Left Radial] Respiratory Rate 13 Blood Pressure 135/105 H Blood Pressure [Right Arm] Blood Pressure Mean Blood Pressure Mean [Right Arm] Blood Pressure Source [Right Arm] Blood Pressure Position [Right Arm] 02 Sat by Pulse Oximetry Oxygen Delivery Method Lab Data Lab results reviewed: Yes I reviewed the patient's lab results. Lab Results 07/28/24 09:16: Urine Color Yellow, Urine Appearance Clear, Urine pH 8.0, Ur Specific [place] 1.020, Urine Protein Negative, Urine Glucose (UA) Negative, Urine Ketones Negative, Urine Blood 3+ A, Urine Nitrate Negative, Urine Bilirubin Negative, Urine Urobilinogen 0.2, Ur Leukocyte Esterase Negative, Urine RBC 10-20, Urine WBC Occasional, Ur Squamous Epith Cells Occasional, Amorphous Sediment 1+ 07/28/24 09:17: WBC 5.7, RBC 4.33 L, Hgb 12.4 L, Hct 34.8 L, MCV 80.4, MCH 28.6, MCHC 35.6 H, RDW 14.9, Plt Count 202, MPV 10.4, Neut % (Auto) 58.2, Lymph % (Auto) 23.3, [place] % (Auto) 14.3 H, Eos % (Auto) 3.5, Baso % (Auto) 0.5, Neut # (Auto) 3.3, Lymph # (Auto) 1.3, [place] # (Auto) 0.8, Eos # (Auto) 0.2, Baso # (Auto) 0.0, Sodium 143, Potassium 3.8, Chloride 107, Carbon Dioxide 25, Anion Gap 14.8, BUN 21 H, Creatinine 1.00, Estimated Creat Clear 57, Estimated GFR 71, Est GFR ( Amer) 85, Glucose 95, Calcium 9.1, Total Bilirubin 0.5, AST 24 D, ALT 18, Alkaline Phosphatase 80, Total Protein 7.5, Albumin 3.9, Globulin 3.6 H, Albumin/Globulin Ratio 1.1, HCV Ab CRISPIN w/Rflx PCR Qn Negative, HIV Ag/Ab Combo Qual Negative 07/28/24 09:17 07/28/24 09:17 Orders (Tests/Meds): ED MEDICATIONS Discontinued Medications Generic Name Dose Route Start Last Admin Trade Name Josesitoq PRN Reason Stop Dose Admin Ceftriaxone Sodium 2 gm/ 100 mls @ 200 mls/hr 07/28/24 10:07 07/28/24 11:14 Sodium Chloride IV 07/28/24 10:36 200 mls/hr ONCE ONE Administration Sodium Chloride 1,000 mls @ 999 mls/hr 07/28/24 10:07 07/28/24 11:13 Sod Chlor 0.9% 1000ml Bag IV 07/28/24 11:07 999 mls/hr .Q1H1M ONE Administration Polyethylene Glycol 34 gm 07/28/24 09:45 07/28/24 10:25 Polyethylene Glycol 3350 17 Gm Packet PO 07/28/24 09:46 34 gm ONCE ONE Administration Sennosides 8.6 mg 07/28/24 09:45 07/28/24 10:25 Senna 8.6mg Tablet PO 07/28/24 09:46 8.6 mg ONCE ONE Administration ORDERS Category Date Time Status CT abdomen pelvis wo con Stat Cat Scan 07/28/24 09:10 Completed Complete Blood Count Auto Diff Stat Lab 07/28/24 09:17 Completed Comprehensive Metabolic Panel Stat Lab 07/28/24 09:17 Completed HIV Combo Stat Lab 07/28/24 09:17 Completed Hepatitis C Ab Qual. W/ RFX Stat Lab 07/28/24 09:17 Completed UA [Urinalysis and Microscopic] Stat Lab 07/28/24 09:16 Completed Blood Culture Stat Micro 07/28/24 10:20 Received Urine Culture Stat Micro 07/28/24 09:16 Received Medical Decision Narrative: In summary, this patient is a 88-year-old male presenting to the Emergency Department for evaluation of catheter associated difficulties. Differential diagnoses considered include but are not limited to Castaneda catheter not draining, obstruction from fecal impaction, displaced Castaneda catheter, bladder spasms. Ruling out the most morbid conditions drove assessment. It should be noted patient's history includes BPH, chronic constipation which are not at goal therapy. This complicates all aspects of care by increasing patient's risk for morbidity. I reviewed patient's past medical records and noted evaluation here on the as detailed in HPI. He had enema with good bowel movement, Castaneda catheter placed with good urine output. On exam, the patient is lying in bed in no acute distress. He denies any concerns or complaints at this time, stating that he feels fine now that his catheter has drained. He has 28 mL in the bladder on postvoid bladder scan, no significant urinary retention. Urine is clear. It is not cloudy without any sediment. I reviewed his urinalysis obtained after Castaneda catheter placement and noted it was clean without concern for infection. Workup included CBC, CMP, CT abdomen pelvis without IV contrast. I independently interpreted CT scan prior to the radiologist read and noted fecal impaction with moderate stool burden, he also has bilateral renal cysts that are stable. He has moderate pleural effusions which are slightly increased in size from prior. Please see their read for final interpretation. Labs were obtained that demonstrated reassuring CBC with no significant leukocytosis or anemia. Chemistry is reassuring with normal kidney function around baseline. I had an indirect discussion with the radiologist Dr. Olea who is concerned for emphysematous cystitis. She does not think this is from Castaneda catheter placement, so I did call and discussed the case with urology at Dr. Palomares. Dr. Palomares advised that this just be treated as a normal urinary tract infection and there are no special considerations or surgical intervention necessary. Patient was given IV Rocephin and a bolus of IV fluids for management. Patient also was given senna and miralax as well as enema for stool burden. On reassessment, patient is resting comfortably. His Castaneda catheter is still draining without issue, he had a good bowel movement after administration of interventions above. Ultimately, I feel that he is appropriate for discharge with treatment of urinary tract infection/emphysematous cystitis at this time. He is given prescription for Levaquin for complicated UTI. He was given instructions for close follow-up with urology, primary care, and with GI for his chronic constipation. He was given prescriptions for MiraLAX and senna to treat his constipation. Return precautions were given and he was discharged after all questions were answered Critical Care Critical Care Time Critical Care Time: Yes Attestation: On 07/28/24, the high probability of a clinically significant, sudden or life threatening deterioration of the following system(s) required my full and direct attention, intervention and personal management. The time I documented below is in addition to time spent performing reported procedures but includes the following listed in this critical care notation. Total Time Total Critical Care Time: 35
--- NOTE | 2024-07-28 09:33 | PC.NURSE ---
gone to CT
[2024-07-28 09:39] LABS: Basophils % 0.5 % (0.1-2.0); Eosinophils # 0.2 K/mm3 (0.0-0.4); Eosinophils % 3.5 % (0.1-12.0); Hematocrit 34.8 % (42.0-52.0); Hemoglobin 12.4 g/dL (14.1-18.0); Lymphocytes # 1.3 K/mm3 (0.7-4.5); Lymphocytes % 23.3 % (10-50); Mean Corpuscular HGB Conc 35.6 g/dL (31.8-35.4); Mean Corpuscular Hemoglobin 28.6 pg (27.0-31.2); Mean Corpuscular Volume 80.4 fl (80-94); Mean Platelet Volume 10.4 fl (7.4-10.4); Monocytes # 0.8 K/mm3 (0.1-1.0); Monocytes % 14.3 % (1.7-9.3); Neutrophils # 3.3 K/mm3 (1.8-7.8); Neutrophils % 58.2 % (37.0-80.0); Nucleated Red Blood Cells # 0 10^3/uL; Nucleated Red Blood Cells % 0 %; Platelet Count 202 K/mm3 (142-424); Red Blood Count 4.33 M/mm3 (4.60-6.20); Red Cell Distribution Width 14.9 % (11.5-17.5); Red Cell Distribution Width-SD 43.8 fL; White Blood Count 5.7 K/mm3 (4.8-10.8)
--- NOTE | 2024-07-28 09:41 | PC.NURSE ---
back from CT
[2024-07-28 09:58] LABS: Alanine Aminotransferase 18 U/L (12-78); Albumin Level 3.9 g/dl (3.5-5.0); Albumin/Globulin Ratio 1.1 (1.1-1.8); Alkaline Phosphatase 80 U/L (38-126); Anion Gap 14.8 mEq/L (5-15); Aspartate Amino Transferase 24 U/L (17-59); Bilirubin,Total 0.5 mg/dl (0.2-1.3); Blood Urea Nitrogen 21 mg/dl (9-20); Calcium 9.1 mg/dl (8.4-10.2); Carbon Dioxide 25 mmol/L (22.0-30.0); Chloride 107 mmol/L (98-107); Creatinine Clearance Estimated 57 mL/min (50-200); Estimated Glomerular Filt Rate 71 ml/min (>60); GFR (African American) 85 ML/MIN (>60); Globulin 3.6 g/dL (1.3-3.2); Glucose 95 mg/dl (74-100); Potassium 3.8 mmoL/L (3.5-5.1); Sodium 143 mmol/L (136-145); Total Protein,Serum 7.5 g/dl (6.3-8.2)
[2024-07-28 10:04] LABS: Microscopic, Urine URINE MICROSCOPIC (MICROSCOPIC)
[2024-07-28 10:06] LABS: Appearance,Urine CLEAR (Clear); Bilirubin,Urine Negative (Negative); Blood, Urine 3+ (Negative); Color,Urine YELLOW (Yellow); Glucose,Urine (UA) Negative (Negative); Ketones,Urine Negative (Negative); Leukocyte Esterase,Urine Negative (Negative); Nitrate,Urine Negative (Negative); Protein,Urine Negative (Negative); Urobilinogen,Urine 0.2 EU/dl (0.2)
[2024-07-28] MEDS: SENNA 8.6MG TABLET 8.6 MG PO (10:25)
[2024-07-28] MEDS: POLYETHYLENE GLYCOL 3350 17 GM PACKET 34 GM PO (10:25)
--- NOTE | 2024-07-28 10:33 | PC.NURSE ---
DR CALLAWAY SPEAKING WITH [facility]
[2024-07-28 10:35] LABS: Amorphous Sediment,Urine 1+ /lpf; Squamous Epithelial Cell,Urine Occasional #/hpf (0-5); WBC,Urine Occasional #/hpf (0-3)
--- NOTE | 2024-07-28 11:00 | PC.NURSE ---
TRN called elo goodman, pts daughter for update on care. explained to pts daughter that she needed to head this way for transportation home for pt.
[2024-07-28] MEDS: 0.9 % SODIUM CHLORIDE 1000ML 1,000 ML 999 ML IV (11:13)
[2024-07-28] MEDS: CEFTRIAXONE SODIUM 2 GM in 0.9 % SODIUM CHLORIDE 100 ML IV (11:14)
[2024-07-28 11:28] LABS: Hepatitis C Ab Qual. W/ RFX NEGATIVE (Negative)
[2024-07-28 12:31] LABS: HIV Combo NEGATIVE (Negative)
--- NOTE | 2024-08-02 09:10 | PC.NURSE ---
I spoke with about the pts final urine culture results. No changes needed to the treatment plan at this time.
== END 2024-07-28 12:39 | disposition home or self-care (01) ==
PROVIDERS: Emergency Provider Emergency Medicine
DX: N30.80 Other cystitis without hematuria (principal); N28.1 Cyst of kidney, acquired; J90 Pleural effusion, not elsewhere classified; K56.41 Fecal impaction; N40.1 Benign prostatic hyperplasia with lower urinary tract symptoms; Z96.0 Presence of urogenital implants
CPT/HCPCS: 74176; 80053; 81001; 85025; 86803; 87040; 87086; 87389; 96365; 99291; J0696; J7030

== ENCOUNTER 2024-09-17 09:51 | Emergency (ER) | payer OTHER, SELFPAY ==
[2024-09-17] VITALS (10 sets, daily range): BP systolic 130–175; BP diastolic 80–135; PULSE 65–97; RESP 17–19; TEMP 36.6–36.7; O2SAT 95–98; BMI 29.0
--- NOTE | 2024-09-17 10:04 | CT_ITS ---
FINAL REPORT TECHNIQUE: Thin section axial images were obtained from the lung bases to the pubic symphysis without IV contrast. Coronal and sagittal reconstruction images were obtained from the axial data. Exam was performed using dose reduction technique. This study was performed with techniques to keep radiation doses as low as reasonably achievable (ALARA). Individualized dose reduction techniques using automated exposure control or adjustment of mA and/or kV according to the patient's size were employed. CLINICAL HISTORY: constipation COMPARISON: 07/28/2024 FINDINGS: The pleural effusions noted on the prior CT of 07/28/2024 have resolved. Mild cardiomegaly is stable. The liver is homogeneous in appearance, the gallbladder is present. There are bilateral hypodense renal lesions that are stable, and there is no convincing evidence of hydronephrosis. The spleen, pancreas, and adrenal glands are unremarkable. There is no evidence of small bowel obstruction. The appendix is normal. GI tract is contains a large amount of retained stool. There is diverticulosis of the distal colon without evidence of acute inflammatory change. There is no lymphadenopathy or ascites. There is mild distention of the bladder, with a diverticulum noted at the dome of the bladder. The prostate is normal in size for age. No acute osseous abnormality is identified. IMPRESSION: Constipation. Mild distention of the bladder, with the diverticulum noted at the bladder dome. Bilateral hypodense renal lesions, which are stable since the prior CT of 07/28/2024. Reviewed, Interpreted and Dictated by Suki Swanson MD Transcribed by Luz Maria Oh Authenticated and . [facility]
--- NOTE | 2024-09-17 10:10 | ED_ITS ---
Discharge Plan Disposition Patient Disposition: Home, Self-Care Condition: Good Prescriptions Prescriptions: No Action polyethylene glycol 3350 [Miralax] 17 gram/dose powder 17 g PO DAILY PRN (Reason: constipation) Qty: 510 0RF sennosides 8.6 mg tablet 8.6 mg PO DAILY Qty: 30 0RF levofloxacin 750 mg tablet 750 mg PO DAILY 7 Days Qty: 7 0RF tamsulosin [Flomax] 0.4 mg Capsule 0.8 mg PO HS carvedilol 6.25 mg Tablet 6.25 mg PO BID Qty: 60 0RF potassium chloride 20 mEq Tablet,Er Particles/Crystals 20 meq PO DAILY Qty: 30 0RF amlodipine [Norvasc] 5 mg Tablet 5 mg PO DAILY Qty: 30 0RF aspirin 325 mg Tablet,Delayed Release (Dr/Ec) 325 mg PO DAILY Qty: 30 0RF finasteride [Proscar] 5 mg Tablet 5 mg PO DAILY Qty: 30 0RF diltiazem HCl 360 mg Tablet Extended Release 24 Hr 360 mg PO DAILY Qty: 30 0RF rosuvastatin [Crestor] 10 mg Tablet 5 mg PO HS Qty: 30 0RF diclofenac sodium 1 % Gel 2 g TOPICAL Q6HP PRN (Reason: Pain) Qty: 100 0RF Rx Instructions: apply to both knees as needed omeprazole 20 mg Tablet,Delayed Release (Dr/Ec) 40 mg PO BID MDD Acid rflux Qty: 30 0RF bisacodyl [Dulcolax (bisacodyl)] 10 mg suppository 10 mg SC DAILY PRN (Reason: constipation) Qty: 12 0RF amoxicillin-pot clavulanate 875-125 mg tablet 1 tab PO BID Qty: 20 0RF Referrals Follow up/Referrals: Provider,Referral, MD [Primary Care Provider, Medical] - See instructions Activity Restrictions/Add. Instructions Additional Instructions/Restrictions: I am giving you instructions for a bowel disimpaction please follow these instructions for discharge. Please follow-up with your primary care physician in 1 week. Clinical Impressions Clinical Impression: Constipation Print Language Print Language: Setswana Discharge ED Provider: Manuel Jade General Adult HPI <Kaia Castillo (ED), JUNIOR ADMINISTRATIVE ASSISTANT - Last Filed: 09/17/24 14:49> General Chief complaint: Recheck/Abnormal Lab/Rx Stated complaint: Constipation Time Seen by Provider: 09/17/24 10:02 History of Present Illness HPI narrative: This is an 89-year-old male who presents to via EMS today to the ED for complaint of pain in his rectum when he walks, gets up or sits down. Patient complains that he has stool coming out all the time. Patient states that this morning was his last bowel movement but it was sounded like water coming out. He says that it has been a while since he has had any real bowel movement. He has no abdominal pain or blood in his stool. No nausea or vomiting. He has had no fevers or urinary problems. He is unsure about hemorrhoids but does not believe that he has had any. Patient does live alone and has a neighbor that checks on him. He uses a walker. Patient does have frequent emergency room visits for constipation. Patient is stable and appears well. Related Data Home Medications ?Medication ?Instructions ?Recorded ?Confirmed tamsulosin 0.4 mg capsule (Flomax) 0.8 mg PO HS Prosta te 04/06/22 06/06/24 Previous Rx's ?Medication ?Instructions ?Recorded amlodipine 5 mg tablet (Norvasc) 5 mg PO DAILY Hyperte nsion #30 tabs 04/08/22 aspirin 325 mg tablet,delayed 325 mg PO DAILY Heart he alth #30 04/08/22 release tabs carvedilol 6.25 mg tablet 6.25 mg PO BID #60 tabs 03/19 06/09 diclofenac sodium 1 % topical gel 2 g topical Q6HP PRN Pain #100 04/08/22 grams diltiazem HCl 360 mg 360 mg PO DAILY Hypertension #30 04/08/22 tablet,extended release 24 hr tabs finasteride 5 mg tablet (Proscar) 5 mg PO DAILY Prosta te #30 tabs 04/08/22 omeprazole 20 mg tablet,delayed 40 mg (2 x 20 mg) PO B ID Acid 04/08/22 release reflux #30 tabs potassium chloride 20 mEq 20 meq PO DAILY #30 tabs tablet,extended release(part/cryst) rosuvastatin 10 mg tablet (Crestor) 5 mg (1/2 x 10 mg) PO HS 04/08/22 Cholesterol #30 tabs bisacodyl 10 mg rectal suppository 10 mg SC DAILY PRN constipation 03/06/23 (Dulcolax (bisacodyl)) #12 ea amoxicillin 875 mg-potassium 1 tab PO BID #20 tabs clavulanate 125 mg tablet levofloxacin 750 mg tablet 750 mg PO DAILY 7 days #7 t abs 07/28/24 polyethylene glycol 3350 17 17 g PO DAILY PRN constipa tion 07/28/24 gram/dose oral powder (Miralax) #510 grams sennosides 8.6 mg tablet 8.6 mg PO DAILY #30 tabs 04/11 Allergies Allergy/AdvReac Type Severity Reaction Status Date / Time No Known Allergies Allergy Verified 06/06/24 10:17 PFSH <Kaia Castillo (ED), JUNIOR ADMINISTRATIVE ASSISTANT - Last Filed: 09/17/24 14:49> [facility] Disclaimer: The information contained in this section may have been updated after the patient was seen, as this information can be updated by other users. Medical History UTI (urinary tract infection) BPH (benign prostatic hyperplasia) Social History Smoking Status: Never smoker alcohol intake: former substance use type: denies use current occupational status: retired and other Travel in the last 8 weeks?: None household members: none housing: apartment Have you lived/traveled outside [place] in past 30 days?: No Contact w/someone who lives/traveled outside US past 30 days?: No Exposure to someone with infectious disease in past 14 days?: No Do you have a fever (greater than 100.4 F or 38 C)?: No Have you tested positive for COVID-19?: No Exposed to someone with COVID-19 in past 14 days?: No Do you have a sore throat?: No Do you have a cough?: No Do you have any weakness?: No Do you have any diarrhea?: No Are you experiencing any unusual bleeding?: No Do you have any muscle aches/pain?: No Do you have any abdominal pain?: No Are you experiencing loss of taste or smell?: No Other Medical History Have you received the Flu Vaccine for this season: No Have you received the Pneumonia Vaccine: No <Kaia Castillo (ED), JUNIOR ADMINISTRATIVE ASSISTANT - Last Filed: 09/17/24 14:49> ROS Obtained: Yes Systems reviewed as appropriate & no additional complaints except as documented Constitutional Constitutional: Reports as per HPI Physical Exam <Kaia Castillo (ED), JUNIOR ADMINISTRATIVE ASSISTANT - Last Filed: 09/17/24 14:49> General General appearance: alert and in no apparent distress Head Head exam: atraumatic and normocephalic Eye Eye exam: Present normal appearance, PERRL and EOMI ENT ENT exam: Present mucous membranes moist Neck Neck exam: Present full ROM and trachea midline Respiratory Respiratory exam: Present normal lung sounds bilaterally Cardiovascular Cardiovascular exam: Present normal rhythm, tachycardia, normal heart sounds, +S1 and +S2 Abdominal Exam Abdominal exam: Present soft and normal bowel sounds Extremities Exam Extremities exam: Present full ROM and normal capillary refill Neurological Exam Neurological exam: Present alert and oriented X3 Skin Skin exam: Present warm, dry and intact Medical Decision Making <Kaia Castillo (ED), JUNIOR ADMINISTRATIVE ASSISTANT - Last Filed: 09/17/24 14:49> Medical Records Medical records reviewed: Yes I reviewed the patient's medical records. Screening: Per USPSTF and CDC recommendations, given the prevalence of disease in our region, it is our hospital?s policy to screen for HIV and viral Hepatitis for all patients aged 18 and over and those with ongoing risk factors. Reyes Inquiry Pt receiving controlled substance: No Reyes was queried for this patient: No Vital Signs: 09/17/24 09:59 09/17/24 10:01 09/17/24 10:13 Temperature 97.9 F 97.9 F Temperature Source Oral Oral Pulse Rate 68 85 Pulse Rate [Right] 85 Respiratory Rate 17 17 Blood Pressure 153/90 H 130/82 Blood Pressure [Right Arm] 130/82 Blood Pressure Mean Blood Pressure Mean [Right Arm] 98 Blood Pressure Source Automatic Cuff Blood Pressure Source [Right Arm] Automatic Cuff Blood Pressure Position Supine Blood Pressure Position [Right Arm] Supine 02 Sat by Pulse Oximetry 98 98 98 Oxygen Delivery Method Room Air Room Air 09/17/24 10:13 09/17/24 10:35 09/17/24 11:39 Temperature 97.9 F Temperature Source Oral Pulse Rate 74 77 Pulse Rate [Right] 85 Respiratory Rate 17 Blood Pressure 151/80 H 158/93 H Blood Pressure [Right Arm] 130/82 Blood Pressure Mean Blood Pressure Mean [Right Arm] 98 Blood Pressure Source Blood Pressure Source [Right Arm] Automatic Cuff Blood Pressure Position Blood Pressure Position [Right Arm] Supine 02 Sat by Pulse Oximetry 98 98 98 Oxygen Delivery Method Room Air Room Air 09/17/24 11:56 09/17/24 12:13 09/17/24 12:31 Temperature Temperature Source Pulse Rate 88 65 97 H Pulse Rate [Right] Respiratory Rate Blood Pressure 175/106 H 169/95 H 153/135 H Blood Pressure [Right Arm] Blood Pressure Mean Blood Pressure Mean [Right Arm] Blood Pressure Source Blood Pressure Source [Right Arm] Blood Pressure Position Blood Pressure Position [Right Arm] 02 Sat by Pulse Oximetry 96 96 97 Oxygen Delivery Method Room Air Room Air Room Air 09/17/24 13:02 09/17/24 13:33 Temperature 98.0 F Temperature Source Pulse Rate 94 H 94 H Pulse Rate [Right] Respiratory Rate 19 Blood Pressure 133/114 H 133/114 H Blood Pressure [Right Arm] Blood Pressure Mean 120 Blood Pressure Mean [Right Arm] Blood Pressure Source Blood Pressure Source [Right Arm] Blood Pressure Position Blood Pressure Position [Right Arm] 02 Sat by Pulse Oximetry 97 Oxygen Delivery Method Room Air Lab Data Lab Results 09/17/24 11:09: WBC 6.5, RBC 4.55 L, Hgb 12.7 L, Hct 36.1 L, MCV 79.3 L, MCH 27.9, MCHC 35.2, RDW 14.2, Plt Count 153, MPV 9.7, Neut % (Auto) 62.3, Lymph % (Auto) 23.9, [place] % (Auto) 11.1 H, Eos % (Auto) 2.0, Baso % (Auto) 0.5, Neut # (Auto) 4.0, Lymph # (Auto) 1.6, [place] # (Auto) 0.7, Eos # (Auto) 0.1, Baso # (Auto) 0.0, Sodium 141, Potassium 3.9, Chloride 108 H, Carbon Dioxide 24, Anion Gap 12.9, BUN 19, Creatinine 1.20, Estimated Creat Clear 48, Estimated GFR 57 L, Est GFR ( Amer) 69, Glucose 90, Calcium 9.1, Magnesium 1.8, Total Bilirubin 0.7, AST 31, ALT 15, Alkaline Phosphatase 67, Total Protein 7.6, Albumin 4.6, Globulin 3.0, Albumin/Globulin Ratio 1.5, Lipase 47 09/17/24 : Urine Color Yellow, Urine Appearance Clear, Urine pH 7.0, Ur Specific [place] 1.015, Urine Protein Negative, Urine Glucose (UA) Negative, Urine Ketones Negative, Urine Blood Negative, Urine Nitrate Negative, Urine Bilirubin Negative, Urine Urobilinogen 0.2, Ur Leukocyte Esterase Trace, Urine RBC None, Urine WBC 3-5, Ur Squamous Epith Cells None, Urine Bacteria None 09/17/24 11:09 09/17/24 11:09 Orders (Tests/Meds): ED MEDICATIONS Discontinued Medications Generic Name Dose Route Start Last Admin Trade Name Freq PRN Reason Stop Dose Admin Mineral Oil 133 ml 09/17/24 11:52 09/17/24 12:48 Mineral Oil Enema 133ml RC 09/17/24 11:53 133 ml ONCE ONE Administration Mineral Oil 133 ml 09/17/24 13:03 09/17/24 13:14 Mineral Oil Enema 133ml RC 09/17/24 13:04 Not Given ONCE ONE ORDERS Category Date Time Status CT abdomen pelvis wo con Stat Cat Scan 09/17/24 10:04 Completed CBC [Complete Blood Count Auto Diff] Stat Lab 09/17/24 11:09 Completed Comprehensive Metabolic Panel Stat Lab 09/17/24 11:09 Completed Lipase Stat Lab 09/17/24 11:09 Completed Magnesium Stat Lab 09/17/24 11:09 Completed Urinalysis-Acute [Urinalysis and Microscopic] Stat Lab 09/17/24 Completed Medical Decision Narrative: 89-year-old male patient presenting to the emergency department for evaluation of constipation and rectal pain. Patient is hemodynamically stable and nontoxic-appearing upon arrival, afebrile. Differential diagnosis includes constipation, uropathy, bowel obstruction, among others. Workup will be conducted with hematologic labs, CT scan. Patient was disimpacted while in the ED. Initial workup reviewed by [facility] hematologic labs are remarkable for constipation. Imaging informally interpreted by Dr. Jade. Please see formal imaging read by radiology. Patient given the disimpaction bowel cleanout for discharge. Patient safe for discharge home with follow-up. <Manuel Jade MD - Last Filed: 09/17/24 15:32> Vital Signs: 09/17/24 09:59 09/17/24 10:01 09/17/24 10:13 Temperature 97.9 F 97.9 F Temperature Source Oral Oral Pulse Rate 68 85 Pulse Rate [Right] 85 Respiratory Rate 17 17 Blood Pressure 153/90 H 130/82 Blood Pressure [Right Arm] 130/82 Blood Pressure Mean Blood Pressure Mean [Right Arm] 98 Blood Pressure Source Automatic Cuff Blood Pressure Source [Right Arm] Automatic Cuff Blood Pressure Position Supine Blood Pressure Position [Right Arm] Supine 02 Sat by Pulse Oximetry 98 98 98 Oxygen Delivery Method Room Air Room Air 09/17/24 10:13 09/17/24 10:35 09/17/24 11:39 Temperature 97.9 F Temperature Source Oral Pulse Rate 74 77 Pulse Rate [Right] 85 Respiratory Rate 17 Blood Pressure 151/80 H 158/93 H Blood Pressure [Right Arm] 130/82 Blood Pressure Mean Blood Pressure Mean [Right Arm] 98 Blood Pressure Source Blood Pressure Source [Right Arm] Automatic Cuff Blood Pressure Position Blood Pressure Position [Right Arm] Supine 02 Sat by Pulse Oximetry 98 98 98 Oxygen Delivery Method Room Air Room Air 09/17/24 11:56 09/17/24 12:13 09/17/24 12:31 Temperature Temperature Source Pulse Rate 88 65 97 H Pulse Rate [Right] Respiratory Rate Blood Pressure 175/106 H 169/95 H 153/135 H Blood Pressure [Right Arm] Blood Pressure Mean Blood Pressure Mean [Right Arm] Blood Pressure Source Blood Pressure Source [Right Arm] Blood Pressure Position Blood Pressure Position [Right Arm] 02 Sat by Pulse Oximetry 96 96 97 Oxygen Delivery Method Room Air Room Air Room Air 09/17/24 13:02 09/17/24 13:33 Temperature 98.0 F Temperature Source Pulse Rate 94 H 94 H Pulse Rate [Right] Respiratory Rate 19 Blood Pressure 133/114 H 133/114 H Blood Pressure [Right Arm] Blood Pressure Mean 120 Blood Pressure Mean [Right Arm] Blood Pressure Source Blood Pressure Source [Right Arm] Blood Pressure Position Blood Pressure Position [Right Arm] 02 Sat by Pulse Oximetry 97 Oxygen Delivery Method Room Air Lab Data Lab Results 09/17/24 11:09: WBC 6.5, RBC 4.55 L, Hgb 12.7 L, Hct 36.1 L, MCV 79.3 L, MCH 27.9, MCHC 35.2, RDW 14.2, Plt Count 153, MPV 9.7, Neut % (Auto) 62.3, Lymph % (Auto) 23.9, [place] % (Auto) 11.1 H, Eos % (Auto) 2.0, Baso % (Auto) 0.5, Neut # (Auto) 4.0, Lymph # (Auto) 1.6, [place] # (Auto) 0.7, Eos # (Auto) 0.1, Baso # (Auto) 0.0, Sodium 141, Potassium 3.9, Chloride 108 H, Carbon Dioxide 24, Anion Gap 12.9, BUN 19, Creatinine 1.20, Estimated Creat Clear 48, Estimated GFR 57 L, Est GFR ( Amer) 69, Glucose 90, Calcium 9.1, Magnesium 1.8, Total Bilirubin 0.7, AST 31, ALT 15, Alkaline Phosphatase 67, Total Protein 7.6, Albumin 4.6, Globulin 3.0, Albumin/Globulin Ratio 1.5, Lipase 47 09/17/24 : Urine Color Yellow, Urine Appearance Clear, Urine pH 7.0, Ur Specific [place] 1.015, Urine Protein Negative, Urine Glucose (UA) Negative, Urine Ketones Negative, Urine Blood Negative, Urine Nitrate Negative, Urine Bilirubin Negative, Urine Urobilinogen 0.2, Ur Leukocyte Esterase Trace, Urine RBC None, Urine WBC 3-5, Ur Squamous Epith Cells None, Urine Bacteria None Orders (Tests/Meds): ED MEDICATIONS Discontinued Medications Generic Name Dose Route Start Last Admin Trade Name Freq PRN Reason Stop Dose Admin Mineral Oil 133 ml 09/17/24 11:52 09/17/24 12:48 Mineral Oil Enema 133ml 09/17/24 11:53 133 ml ONCE ONE Administration Mineral Oil 133 ml 09/17/24 13:03 09/17/24 13:14 Mineral Oil Enema 133ml RC 09/17/24 13:04 Not Given ONCE ONE ORDERS Category Date Time Status CT abdomen pelvis wo con Stat Cat Scan 09/17/24 10:04 Completed CBC [Complete Blood Count Auto Diff] Stat Lab 09/17/24 11:09 Completed Comprehensive Metabolic Panel Stat Lab 09/17/24 11:09 Completed Lipase Stat Lab 09/17/24 11:09 Completed Magnesium Stat Lab 09/17/24 11:09 Completed Urinalysis-Acute [Urinalysis and Microscopic] Stat Lab 09/17/24 Completed Medical Decision Narrative: 89-year-old male patient presenting to the emergency department for evaluation of constipation and rectal pain. Patient is hemodynamically stable and nontoxic-appearing upon arrival, afebrile. Differential diagnosis includes constipation, uropathy, bowel obstruction, among others. Workup will be conducted with hematologic labs, CT scan. Patient was disimpacted while in the ED. Initial workup reviewed by me hematologic labs are remarkable for constipation. Imaging informally interpreted by Dr. Jade. Please see formal imaging read by radiology. Patient given the disimpaction bowel cleanout for discharge. Patient safe for discharge home with follow-up. Procedure: Procedure performed was rectal disimpaction performed by Vero Castillo under direction of Manuel Jade. She performed disimpaction with success patient tolerated procedure well there were no immediate complications. I was consulted by the WILLIAM, and we discussed the complexity of the problems being addressed. I approved the treatment and management plan for this patient's care in the emergency department, thus performing a substantive portion of the medical decision making. Manuel Jade MD Procedures <Kaia Castillo (ED), JUNIOR ADMINISTRATIVE ASSISTANT - Last Filed: 09/17/24 14:49> Rectal Disimpaction Time out performed rectal disimpaction: Yes Indication: fecal impaction Procedural Sedation: No Sedation/Analgesia: none Technique: manual disimpaction with gloved finger Result: significant stool output Patient Tolerated Procedure: well and no complications Complications: none Critical Care <Kaia Castillo (ED), JUNIOR ADMINISTRATIVE ASSISTANT - Last Filed: 09/17/24 14:49> Critical Care Time Critical Care Time: No
--- NOTE | 2024-09-17 11:12 | PC.NURSE ---
Clement Mcallister tried to stick Patient for labs. Could not get all labs so lab was called and they are coming to stick him for labs.
[2024-09-17 11:15] LABS: Basophils % 0.5 % (0.1-2.0); Eosinophils # 0.1 Kmm3 (0.0-0.4); Hematocrit 36.1 % (42.0-52.0); Hemoglobin 12.7 g/dL (14.1-18.0); Immature Granulocytes # 0.01 10^3uL; Immature Granulocytes % 0.2 %; Lymphocytes # 1.6 K/mm3 (0.7-4.5); Lymphocytes % 23.9 % (10-50); Mean Corpuscular HGB Conc 35.2 g/dL (31.8-35.4); Mean Corpuscular Hemoglobin 27.9 pg (27.0-31.2); Mean Corpuscular Volume 79.3 fl (80-94); Mean Platelet Volume 9.7 fl (7.4-10.4); Monocytes # 0.7 K/mm3 (0.1-1.0); Monocytes % 11.1 % (1.7-9.3); Neutrophils % 62.3 % (37.0-80.0); Nucleated Red Blood Cells # 0 10^3/uL; Nucleated Red Blood Cells % 0 %; Platelet Count 153 K/mm3 (142-424); Red Blood Count 4.55 M/mm3 (4.60-6.20); Red Cell Distribution Width 14.2 % (11.5-17.5); Red Cell Distribution Width-SD 41.1 fL; White Blood Count 6.5 K/mm3 (4.8-10.8)
[2024-09-17 11:30] LABS: Microscopic, Urine URINE MICROSCOPIC (MICROSCOPIC)
[2024-09-17 11:33] LABS: Appearance,Urine CLEAR (Clear); Bilirubin,Urine Negative (Negative); Blood, Urine Negative (Negative); Color,Urine YELLOW (Yellow); Glucose,Urine (UA) Negative (Negative); Ketones,Urine Negative (Negative); Leukocyte Esterase,Urine TRACE (Negative); Nitrate,Urine Negative (Negative); Protein,Urine Negative (Negative); Specific Gravity, Urine 1.015 (1.005-1.030); Urobilinogen,Urine 0.2 EU/dl (0.2)
[2024-09-17 11:38] LABS: Alanine Aminotransferase 15 U/L (12-78); Albumin Level 4.6 g/dl (3.5-5.0); Albumin/Globulin Ratio 1.5 (1.1-1.8); Alkaline Phosphatase 67 U/L (38-126); Anion Gap 12.9 mEq/L (5-15); Aspartate Amino Transferase 31 U/L (17-59); Bilirubin,Total 0.7 mg/dl (0.2-1.3); Blood Urea Nitrogen 19 mg/dl (9-20); Calcium 9.1 mg/dl (8.4-10.2); Carbon Dioxide 24 mmol/L (22.0-30.0); Chloride 108 mmol/L (98-107); Creatinine Clearance Estimated 48 mL/min (50-200); Estimated Glomerular Filt Rate 57 ml/min (>60); GFR (African American) 69 ML/MIN (>60); Glucose 90 mg/dl (74-100); Potassium 3.9 mmoL/L (3.5-5.1); Sodium 141 mmol/L (136-145); Total Protein,Serum 7.6 g/dl (6.3-8.2)
[2024-09-17 11:45] LABS: Lipase 47 U/L (23-300); Magnesium 1.8 mg/dl (1.6-2.3)
[2024-09-17] MEDS: MINERAL OIL ENEMA 133ML 133 ML RC (12:48)
--- NOTE | 2024-09-17 13:14 | PC.NURSE ---
call made to care management for assistance with pt transportation home.
--- NOTE | 2024-09-17 13:16 | SW/DCPLANNER ---
I have arranged [facility] services for transportation home.
== END 2024-09-17 13:34 | disposition home or self-care (01) ==
PROVIDERS: Nurse Practitioner; Emergency Provider Emergency Medicine
DX: K56.41 Fecal impaction (principal)
CPT/HCPCS: 74176; 80053; 81001; 83690; 83735; 85025; 99284

== ENCOUNTER 2024-10-26 16:40 | Emergency (ER) | payer OTHER, SELFPAY ==
--- OUTSIDE RECORDS SUMMARY | 2024-06-06 05:43 | XMS_ITS | Encounter Summary ---
Author Name [facility] Organization [facility] Address [address] [place] [address] Care Team Providers Care Sandstone Splitter Name Role Phone LYSSA CARTER Primary Care Provider Unavailab le Insurance Providers: All historical and current Section Date Range: From patient's date of to the date document was created. This section includes the names of all active insurance providers for the patient. Insurance Provider Type of Coverage Plan Name Start of Policy Coverage End of Policy Coverage Group Number Member ID Insurance Provider's Telephone Number Policy Flor's Name Patient's Relationship to Policy Flor MEDICARE (WNR) MEDICARE (M) PART A Jul 17, 2000 PART A [id number] JESSICA ALVAREZ PATIENT MEDICARE (WNR) MEDICARE (M) PART B Jul 17, 2000 PART B [id number] JESSICA ALVAREZ PATIENT MEDICARE (WNR) MEDICARE (M) PART A Jul 17, 2000 PART A [id number] JESSICA ALVAREZ PATIENT MEDICARE (WNR) MEDICARE (M) PART B Jul 17, 2000 PART B [id number] [phone] JESSICA ALVAREZ PATIENT Selected Encounter This section includes the information on record at [facility] for the Encounter. Date/Time Encounter Type Encounter Description Reason Pro vider Source Jun 06, 2024 09:43 AM Outpatient Encounter ADMIN PAT ACTIVTIES (MASNONCT) IHE Encounter Template Text not used by MS Plan of Treatment: Future Appointments (+ 6 months) and Future Tests (+/- 45 days) The Plan of Treatment section includes future care activities for the patient from all [facility]. This section includes future appointments and future orders which are active, pending or scheduled. Future Appointments This section includes appointments that were scheduled to occur 6 months from the date of the Encounter, up to a maximum of 20 appointments. The data comes from all [place] treatment facilities. Appointment Date/Time Appointment Type Appointme nt Facility Name Jul 26, 2024 10:45 AM AMBULATORY - NONE [facility] Aug 03, 2024 08:05 AM AMBULATORY - NONE [facility] Lab Results: +/- 30 days of the encounter This section includes the Chemistry and Hematology Lab Results on record with [facility] for the patient. Radiology Reports and Pathology Reports are provided separately, in subsequent sections. Lab Results This section contains the Chemistry/Hematology Results that were resulted 30 days before or 30 daysafter the date of the Encounter. Date/Time Source Result Type Result - Unit Interpretation Reference Range Specimen Type Comment Jun 08, 2024 10:52 AM [facility] WN FERRITIN PLASMA Specimen Type: PLASMA No comment entered. Ordering Provider: LYSSA CARTER Report Released Date/Time: Jun 08, 2024 10:50 AM Reporting Lab: [address] [phone] Performing Lab: [address] [phone] FERRITIN 232.6 ng/mL 21.8-274.7 Jun 08, 2024 10:52 AM [facility] IRON/TIBC PLASMA Specimen Type: PLASMA No comment entered. Ordering Provider: LYSSA CARTER Report Released Date/Time: Jun 08, 2024 10:50 AM Reporting Lab: [address] [phone] Performing Lab: [address] [phone] IRON 60 ug/dL L 65-175 TIBC 163 mg/dL L 250-425 IRON SATURATION 37 20-50 Jun 07, 2024 12:00 PM [facility] 25-OH VITAMIN D SERUM Specime n Type: SERUM Comment: The National Institutes of Health (NIH) recommendations state: <12 ng/mL - Deficient 20 - 50 ng/mL - Optimal Levels - adequate for most people. >50 ng/mL - Increased risk of hypercalciuria/other health problems - clinical correlation is required. These reference ranges represent clinical decision values rather than population-based reference values. Ordering Provider: LYSSA CARTER Report Released Date/Time: August 24, 2023 04:05 PM Reporting Lab: [facility] [address] [place] [id number] Performing Lab: [address] [phone] 25-OH VITAMIN D 30.0 ng/mL 20.0-50.0 Jun 07, 2024 12:00 PM [facility] PANEL 2 PLASMA Specimen Type: PLASM A Comment: Estimated Glomerular Filtration Rate (eGFR) calculated using the 2020 Chronic Kidney Disease-Epidemiology (CKD-EPI) Collaboration creatinine equation; units of measure are mL/min/1.73 m2. Results are only valid for adults (>=18 years) whose serum creatinine is in a steady state. eGFR calculations are not valid for patients with acute kidney injury and for patients on dialysis. Creatinine-based estimates of kidney function may also be inaccurate in patients with reduced creatinine generation due to decreased muscle mass (e.g., malnutrition, severe hypoalbuminemia, sarcopenia, chronic neuromuscular disease, amputations, severe heart failure or liver disease) and in patients with increased creatinine generation due to increased muscle mass (e.g., muscle builders, anabolic steroids) or increased dietary intake. As drug clearance is proportional to total GFR and not GFR indexed to body surface area (BSA), in individuals with a BSA substantially different than 1.73 m2, drug dosing should be based on the reported eGFR value de-indexed from BSA by multiplying by the individual's BSA and dividing by 1.73. CKD is diagnosed based on abnormalities of kidney structure or function, present for >3 months, with implications for health and disease. CKD is classified and staged based on cause, eGFR and albuminuria (quantified as urine albumin to creatinine ratio). An eGFR >60 mL/min/1.73 m2 in the absence of increased urine albumin excretion or structural abnormalities does not represent CKD. eGFR CKD Interpretation (mL/min/1.73 m2) stage >=90 G1 Normal 60-89 G2 Mild decrease 45-59 G3A Mild to moderate decrease 30-44 G3B Moderate to severe decrease 15-29 G4 Severe decrease <15 G5 Kidney failure Ordering Provider: LYSSA CARTER Report Released Date/Time: August 24, 2023 04:05 PM Reporting Lab: [address] [phone] Performing Lab: [address] [phone] TOTAL PROTEIN 6.5 g/dL 6.4-8.3 ALBUMIN 3.7 g/dL 3.5-5.2 TOTAL BILIRUBIN 0.5 mg/dL 0.2-1.2 AST 12 U/L 5-34 ALT <8 U/L 0-55 ALK PHOS 59 U/L 40-150 BILIRUBIN-DIRECT 0.2 mg/dL 0.0-0.5 Jun 07, 2024 12:00 [facility] Specimen Type: PLASM A Comment: Estimated Glomerular Filtration Rate (eGFR) calculated using the 2020 Chronic Kidney Disease-Epidemiology (CKD-EPI) Collaboration creatinine equation; units of measure are mL/min/1.73 m2. Results are only valid for adults (>=18 years) whose serum creatinine is in a steady state. eGFR calculations are not valid for patients with acute kidney injury and for patients on dialysis. Creatinine-based estimates of kidney function may also be inaccurate in patients with reduced creatinine generation due to decreased muscle mass (e.g., malnutrition, severe hypoalbuminemia, sarcopenia, chronic neuromuscular disease, amputations, severe heart failure or liver disease) and in patients with increased creatinine generation due to increased muscle mass (e.g., muscle builders, anabolic steroids) or increased dietary intake. As drug clearance is proportional to total GFR and not GFR indexed to body surface area (BSA), in individuals with a BSA substantially different than 1.73 m2, drug dosing should be based on the reported eGFR value de-indexed from BSA by multiplying by the individual's BSA and dividing by 1.73. CKD is diagnosed based on abnormalities of kidney structure or function, present for >3 months, with implications for health and disease. CKD is classified and staged based on cause, eGFR and albuminuria (quantified as urine albumin to creatinine ratio). An eGFR >60 mL/min/1.73 m2 in the absence of increased urine albumin excretion or structural abnormalities does not represent CKD. eGFR CKD Interpretation (mL/min/1.73 m2) stage >=90 G1 Normal 60-89 G2 Mild decrease 45-59 G3A Mild to moderate decrease 30-44 G3B Moderate to severe decrease 15-29 G4 Severe decrease <15 G5 Kidney failure Ordering Provider: LYSSA CARTER Report Released Date/Time: August 24, 2023 04:05 PM Reporting Lab: [address] [phone] Performing Lab: [address] [phone] CREATININE 1.15 mg/dL 0.72-1.25 UREA NITROGEN 12 mg/dL 9-25 GLUCOSE 119 mg/dL H 74-100 SODIUM 142 mmol/L 136-145 POTASSIUM 3.5 mmol/L 3.5-5.1 CHLORIDE 110 mmol/L H 98-107 CO2 23 mmol/L 22-29 CALCIUM 9.1 mg/dL 8.4-10.2 ANION GAP 9 meq/L 3-19 eGFR (CKD-EPI) 61 Jun 07, 2024 12:00 PM [facility] CBC/PLT BLOOD Specimen Type: BLOOD No comment entered. Ordering Provider: LYSSA CARTER Report Released Date/Time: August 24, 2023 04:05 PM Reporting Lab: [address] [phone] Performing Lab: [address] [phone] WBC 3.9 10*3/uL L 5.0-10.0 RBC 4.21 10*6/uL L 4.6-6.2 HGB 11.7 g/dL L 14.0-18.0 HCT 33.6 L 42.0-52.0 MCV 79.8 fL L 80.0-94.0 MCH 27.8 pg 27.0-31.0 MCHC 34.8 g/dL 32.0-36.0 PLT 230 10*3/uL 150-450 MPV 10.2 fL 9.0-13.1 RDW 14.9 11.0-16.0 NRBC 0.0 0.0-0.0 Social History: Smoking Status (Most current) and Tobacco Use (All prior to encounter date) This section includes the most current, and the historical, smoking and tobacco- related health factors from the [place] facility where the Encounter took place. Current Smoking Status This section includes the most current smoking, or tobacco-related health factor, from the [place] facility where the Encounter took place. Date/Time Current Smoking Status Comment Facil ity Oct 18, 2023 11:45 AM MS-TOBACCO NEVER USED [facility] Tobacco Use History This section includes a history of the smoking, or tobacco-related health factors, that were collected on or before the date of the Encounter. The data comes from the [place] facility where the Encounter took place. Date/Time Smoking Status/Tobacco Use Comment F acility Oct 21, 2022 09:58 AM MS-TOBACCO NEVER USED [facility] Jul 23, 2021 11:35 AM MS-TOBACCO NEVER USED [facility] Nov 01, 2001 10:14 AM HF V9 CURRENT NON-SMOKER [facility] Sep 19, 2000 11:13 AM HF V9 CURRENT NON-SMOKER quit 1982 [facility] Advance Directives: All historical and current Section Date Range: From patient's date of to the date document was created. This section includes ALL of a patient's completed or amended [place] Advance and Rescinded Directives. The entries below indicate that a directive exists for the patient, but an actual copy is not included with this document. The data comes from all [place] facilities. Date Advance Directives Provider Source Feb 02, 2021 ADVANCE DIRECTIVE DISCUSSION [facility]ANE [facility]WKINS [facility] Feb 13, 2020 ADVANCE DIRECTIVE DISCUSSION VANE DAWKINS [facility] Encounter Notes: All associated encounter notes This section contains the clinical notes associated to the Encounter. Date/Time Encounter Note(s) Provider Source Jun 06, 2024 09:43 AM NONVA NOTE: [facility] TITLE: [facility] PRESENTING CARE COORD PLAN STANDARD TITLE: NONVA NOTE DATE OF NOTE: JUN 06, 2024@09:43 ENTRY DATE: JUN 06, 2024@15:15:44 AUTHOR: SHELBY ALVAREZ EXP COSIGNER: URGENCY: STATUS: COMPLETED Emergency Notification Intake Date Presenting to the Facility: May Method of Contact: Notified from [employer] worklist Notification ID: [id number] [facility] Referral #: [facility] Hospital Name: Hospital: [facility] Address: City: [place] State: [place] Zip Code: Phone : Community Facility Point of Contact: Name: [facility] Phone: [phone] Chief complaint: Leg pain Primary Diagnosis: Disposition Discharged home; call with Tawana at [facility], [facility] [place] was dc'd home. Handoff to PACT/PCP [facility] was informed this was seen for emergent care. Records requested for upload and review: Pursuant to 38 CFR 17.4020(c) Authorized emergency treatments. Handoff to PACT/PCP for follow up/care coordination as deemed appropriate by the PACT/PCP. /marlon/ Shelby PUTNAM, operations label clerk Nurse Coordinator Signed: 06/06/2024 16:04 [facility]
--- OUTSIDE RECORDS SUMMARY | 2024-06-13 09:22 | XMS_ITS ---
Author Name [facility] Organization [facility] Address [address] [place] [address] Care Team Providers Care Marketing Professional Name Role Phone LYSSA CARTER Primary Care [...] PART A Jul 17, 2000 PART A [id number] [phone] JESSICA ALVAREZ PATIENT MEDICARE (WNR) MEDICARE (M) PART B Jul 17, 2000 PART B [id number] JESSICA ALVAREZ PATIENT MEDICARE (WNR) MEDICARE (M) PART A Jul 17, 2000 PART A [id number] [phone] [id number] JESSICA ALVAREZ PATIENT MEDICARE (WNR) MEDICARE (M) PART B Jul 17, 2000 PART B [id number] JESSICA ALVAREZ PATIENT Selected Encounter This section includes the information on record at [place] for the Encounter. Date/Time Encounter Type Encounter Description Reason Pro vider Source Jun 13, 2024 01:22 PM Outpatient Encounter ADMIN PAT ACTIVTIES (MASNONCT) I[facility] Encounter Template Text not used by [place] Plan of Treatment: Future Appointments (+ 6 months) and Future Tests (+/- 45 days) The Plan of Treatment section includes future care activities for the patient from [facility] [place] [facility] This section includes future appointments and future orders which are active, pending or scheduled. Future Appointments This section includes appointments that were scheduled to occur 6 months from the date of the Encounter, up to a maximum of 20 appointments. The data comes from all [place] treatment facilities. Appointment Date/Time Appointment Type Appointme nt Facility Name Jul 26, 2024 10:45 AM AMBULATORY - NONE [facility] Aug 03, 2024 08:05 AM AMBULATORY - NONE [facility] Lab Results: +/- 30 days of the encounter This section includes the Chemistry and Hematology Lab Results on record with [place] for the patient. Radiology Reports and Pathology Reports are provided separately, in subsequent sections. Lab Results This section contains the Chemistry/Hematology Results that were resulted 30 days before or 30 daysafter the date of the Encounter. Date/Time Source Result Type Result - Unit Interpretation Reference Range Specimen Type Comment Jun 08, 2024 10:52 AM [facility] WN FERRITIN PLASMA Specimen Type: PLASMA No comment entered. Ordering Provider: LYSSA CARTER Report Released Date/Time: Jun 08, 2024 10:50 AM Reporting Lab: [address] [phone] Performing Lab: [address] [address] FERRITIN 232.6 ng/mL 21.8-274.7 Jun 08, 2024 10:52 AM [facility] IRON/TIBC PLASMA Specimen Type: PLASMA No comment entered. Ordering Provider: LYSSA CARTER Report Released Date/Time: Jun 08, 2024 10:50 AM Reporting Lab: [address] [phone] Performing Lab: [address] [phone] IRON 60 ug/dL L 65-175 TIBC 163 mg/dL L 250-425 IRON SATURATION 37 20-50 Jun 07, 2024 12:00 PM [facility] 25-OH VITAMIN D SERUM Specime n Type: [...] August 24, 2023 04:05 PM Reporting Lab: [facility] [address] [place] [id number] Performing Lab: [address] [phone] 25-OH VITAMIN D 30.0 ng/mL 20.0-50.0 Jun 07, 2024 12:00 PM [facility] PANEL 2 PLASMA Specimen Type: PLASM A [...] August 24, 2023 04:05 PM Reporting Lab: [address] [phone] Performing Lab: [address] [phone] TOTAL PROTEIN 6.5 g/dL 6.4-8.3 ALBUMIN 3.7 g/dL 3.5-5.2 TOTAL BILIRUBIN 0.5 mg/dL 0.2-1.2 AST 12 U/L 5-34 ALT <8 U/L 0-55 ALK PHOS 59 U/L 40-150 BILIRUBIN-DIRECT 0.2 mg/dL 0.0-0.5 Jun 07, 2024 12:00 [facility] PLASMA Specimen Type: PLASM [...] August 24, 2023 04:05 PM Reporting Lab: [address] [phone] Performing Lab: [address] [phone] CREATININE 1.15 mg/dL 0.72-1.25 UREA NITROGEN 12 mg/dL 9-25 GLUCOSE 119 mg/dL H 74-100 SODIUM 142 mmol/L 136-145 POTASSIUM 3.5 mmol/L 3.5-5.1 CHLORIDE 110 mmol/L H 98-107 CO2 23 mmol/L 22-29 CALCIUM 9.1 mg/dL 8.4-10.2 ANION GAP 9 meq/L 3-19 eGFR (CKD-EPI) 61 Jun 07, 2024 12:00 PM [facility] CBC/PLT BLOOD Specimen Type: BLOOD No comment entered. Ordering Provider: LYSSA CARTER Report Released Date/Time: August 24, 2023 04:05 PM Reporting Lab: [address] [phone] Performing Lab: [address] [address] WBC 3.9 10*3/uL L 5.0-10.0 RBC 4.21 [...] and tobacco- related health factors from the [place] facility where the Encounter took place. Current Smoking Status This section includes the most current smoking, or tobacco-related health factor, from the [place] facility where the Encounter took place. Date/Time Current Smoking Status Comment Facil ity Oct 18, 2023 11:45 AM [place]-TOBAC[place] NEVER USED [facility] Tobacco Use History This section includes a history of the smoking, or tobacco-related health factors, that were collected on or before the date of the Encounter. The data comes from the [place] facility where the Encounter took place. Date/Time Smoking Status/Tobacco Use Comment F acility Oct 21, 2022 09:58 AM [place]-TOBAC[place] NEVER USED [facility] Jul 23, 2021 11:35 AM [place]AC[place] NEVER USED [facility] Nov 01, 2001 10:14 AM HF V9 CURRENT NON-SMOKER [facility] Sep 19, 2000 11:13 AM HF V9 CURRENT NON-SMOKER quit 1982 [facility] Advance Directives: All historical and current Section Date Range: From patient's date of to the date document was created. This section includes ALL of a patient's completed or amended [place] Advance and Rescinded Directives. The entries below indicate that a directive exists for the patient, but an actual copy is not included with this document. The data comes from all [place] facilities. Date Advance Directives Provider Source Feb 02, 2021 ADVANCE DIRECTIVE DISCUSSION [facility] Feb 13, 2020 ADVANCE DIRECTIVE DISCUSSION VANE DAWKINS [facility] Encounter Notes: All associated encounter notes This section contains the clinical notes associated to the Encounter. Date/Time Encounter Note(s) Provider Source Jun 06, 2024 01:22 PM NONVA NOTE: LOCAL TITLE: OUTSIDE MEDICAL RECORD-OTHER STANDARD TITLE: NONVA NOTE DATE OF NOTE: JUN 06, 2024@13:22 ENTRY DATE: JUN 13, 2024@13:22:54 AUTHOR: TREVIN HARMON EXP COSIGNER: URGENCY: STATUS: COMPLETED The scanned document may be viewed in [employer]. /marlon/ TREVIN HARMON [employer]ESS[employer]I TODDLER TEACHER Signed: 06/13/2024 13:23 TREVIN HARMON-[facility]
--- OUTSIDE RECORDS SUMMARY | 2024-07-19 09:56 | XMS_ITS | Encounter Summary ---
Author Name [facility] Address [address] [place] [address] Care Team Providers Care Platform Engineer Name Role Phone LYSSA CARTER Primary Care [...] PART A Jul 17, 2000 PART A [id number] JESSICA ALVAREZ PATIENT MEDICARE (WNR) MEDICARE (M) PART B Jul 17, 2000 PART B [id number] [phone] JESSICA ALVAREZ PATIENT MEDICARE (WNR) MEDICARE (M) PART A Jul 17, 2000 PART A [id number] JESSICA ALVAREZ PATIENT MEDICARE (WNR) MEDICARE (M) PART B Jul 17, 2000 PART B [id number] JESSICA ALVAREZ PATIENT Selected Encounter This section includes the information on record at [place] for the Encounter. Date/Time Encounter Type Encounter Description Reason Pro vider Source Jul 19, 2024 01:56 PM Outpatient Encounter ADMIN PAT ACTIVTIES (GLENISNONCT) [facility] Encounter Template Text not used by [place] Plan of Treatment: Future Appointments (+ 6 months) and Future Tests (+/- 45 days) The Plan of Treatment section includes future care activities for the patient from all [facility]. This section includes future appointments and future orders which are active, pending or scheduled. Future Appointments This section includes appointments that were scheduled to occur 6 months from the date of the Encounter, up to a maximum of 20 appointments. The data comes from all [place] treatment facilities. Appointment Date/Time Appointment Type Appointme nt Facility Name Jul 26, 2024 10:45 AM AMBULATORY - NONE [facility] Aug 03, 2024 08:05 AM AMBULATORY - NONE [facility] Social History: Smoking Status (Most current) and Tobacco Use (All prior to encounter date) This section includes the most current, and the historical, smoking and tobacco- related health factors from the [place] facility where the Encounter took place. Current Smoking Status This section includes the most current smoking, or tobacco-related health factor, from the [place] facility where the Encounter took place. Date/Time Current Smoking Status Comment Facil ity Oct 18, 2023 11:45 AM NE-TOBACCO NEVER USED [facility] Tobacco Use History This section includes a history of the smoking, or tobacco-related health factors, that were collected on or before the date of the Encounter. The data comes from the [place] facility where the Encounter took place. Date/Time Smoking Status/Tobacco Use Comment F acility Oct 21, 2022 09:58 AM NE-TOBACCO NEVER USED [facility] Jul 23, 2021 11:35 AM NE-TOBACCO NEVER USED [facility] Nov 01, 2001 10:14 AM HF V9 CURRENT NON-SMOKER [facility] Sep 19, 2000 11:13 AM HF V9 CURRENT NON-SMOKER quit 1982 [facility] Advance Directives: All historical and current Section Date Range: From patient's date of to the date document was created. This section includes ALL of a patient's completed or amended [place] Advance and Rescinded Directives. The entries below indicate that a directive exists for the patient, but an actual copy is not included with this document. The data comes from all [place] facilities. Date Advance Directives Provider Source Feb 02, 2021 [facility] Feb 13, 2020 ADVANCE DIRECTIVE DISCUSSION [facility] Encounter Notes: All associated encounter notes This section contains the clinical notes associated to the Encounter. Date/Time Encounter Note(s) Provider Source Aug 10, 2023 01:58 PM NONVA NOTE: LOCAL TITLE: OUTSIDE MEDICAL RECORD-FEE OUTPATIENT STANDARD TITLE: NONVA NOTE DATE OF NOTE: AUG 10, 2023@13:58 ENTRY DATE: JUL 19, 2024@13:58:46 AUTHOR: MAYRA BOYLE EXP COSIGNER: URGENCY: STATUS: COMPLETED The scanned image may be viewed in [employer]. /marlon/ MAYRA BOYLE WIRE ROPE FABRICATION SUPERVISOR Signed: 07/19/2024 13:59 [facility]
--- OUTSIDE RECORDS SUMMARY | 2024-07-27 06:46 | XMS_ITS | Encounter Summary ---
Author Name [facility] Organization [facility] Address [address] [place] [address] Care Team Providers Care Microbiology Quality Control Technician Name Role Phone LYSSA CARTER Primary Care [...] PART A Jul 17, 2000 PART A [id number] JESSICA ALVAREZ PATIENT MEDICARE (WNR) MEDICARE (M) PART B Jul 17, 2000 PART B [id number] JESSICA ALVAREZ PATIENT MEDICARE (WNR) MEDICARE (M) PART A Jul 17, 2000 PART A [id number] JESSICA ALVAREZ PATIENT MEDICARE (WNR) MEDICARE (M) PART B Jul 17, 2000 PART B [id number] JESSICA ALVAREZ PATIENT Selected Encounter This section includes the information on record at [place] for the Encounter. Date/Time Encounter Type Encounter Description Reason Pro vider Source Jul 27, 2024 10:46 AM Outpatient Encounter ADMIN PAT ACTIVTIES (MASNONCT) I[facility] Encounter Template Text not used by [place] Plan of Treatment: Future Appointments (+ 6 months) and Future Tests (+/- 45 days) The Plan of Treatment section includes future care activities for the patient from all [place] treatmentfacilities. This section includes future appointments and future orders which are active, pending or scheduled. Future Appointments This section includes appointments that were scheduled to occur 6 months from the date of the Encounter, up to a maximum of 20 appointments. The data comes from all [place] treatment facilities. Appointment Date/Time Appointment Type Appointme nt Facility Name Aug 03, 2024 08:05 AM [facility] - NONE [facility] Social History: Smoking Status (Most current) and Tobacco Use (All prior to encounter date) This section includes the most current, and the historical, smoking and tobacco- related health factors from the [place] facility where the Encounter took place. Current Smoking Status This section includes the most current smoking, or tobacco-related health factor, from the [place] facility where the Encounter took place. Date/Time Current Smoking Status Comment Facil ity Oct 18, 2023 11:45 AM MI-TOBACCO NEVER USED [facility] Tobacco Use History This section includes a history of the smoking, or tobacco-related health factors, that were collected on or before the date of the Encounter. The data comes from the [place] facility where the Encounter took place. Date/Time Smoking Status/Tobacco Use Comment F acility Oct 21, 2022 09:58 AM MI-TOBACCO NEVER USED [facility] Jul 23, 2021 11:35 AM VA-TOBACCO NEVER USED [place] Nov 01, 2001 10:14 AM HF V9 CURRENT [facility]MOKER [facility] Sep 19, 2000 11:13 AM HF V9 CURRENT NON-SMOKER quit 1982 [facility] Advance Directives: All historical and current Section Date Range: From patient's date of to the date document was created. This section includes ALL of a patient's completed or amended [place] Advance and Rescinded Directives. The entries below indicate that a directive exists for the patient, but an actual copy is not included with this document. The data comes from all [place] facilities. Date Advance Directives Provider Source Feb 02, 2021 ADVANCE DIRECTIVE DISCUSSION [facility] Feb 13, 2020 ADVANCE DIRECTIVE DISCUSSION [facility] Encounter Notes: All associated encounter notes This section contains the clinical notes associated to the Encounter. Date/Time Encounter Note(s) Provider Source Jul 30, 2024 09:54 AM ADDENDUM: LOCAL TITLE: Addendum STANDARD TITLE: ADDENDUM DATE OF NOTE: JUL 30, 2024@09:54:25 ENTRY DATE: JUL 30, 2024@09:54:26 AUTHOR: HONORIO FERNANDES EXP COSIGNER: URGENCY: STATUS: COMPLETED Please request medical records for ED visito on 07/25. /marlon/ HONORIO FERNANDES RN Signed: 07/30/2024 09:54 Receipt Acknowledged By: 07/30/2024 13:12 /marlon/ RAMESH FUNES AMSA --- Original Document --- 07/25/24 [facility] PRESENTING CARE COORD PLAN NOTE: Emergency Notification Intake Date Presenting to the Facility: Jul Date of note has been modified to reflect Date of Service. Reason for modification: HOSPITAL NOTIFICATION DATE/TIME: 07/26/2024 1148 EDT Method of Contact: Notified from [employer] worklist Notification ID: [id number] [facility] Referral #: [facility] Hospital Name: Hospital: [facility] Address: City: [place] State: [place] Zip Code: Phone : Community Facility Point of Contact: Name: ECHO ABARCA Phone: [phone] Chief complaint: INCONTINENT Primary Diagnosis: Disposition Discharged FROM ED Handoff to PACT/PCP [facility] was informed this was seen for emergent care. Records requested for upload and review: Pursuant to 38 CFR 17.4020(c)Authorized emergency treatments. Handoff to PACT/PCP for follow up/care coordination as deemed appropriate by the PACT/PCP. /marlon/ Randa Posada MSN, chef broiler or fry Nurse Coordinator Signed: 07/27/2024 10:48 Receipt Acknowledged By: 07/27/2024 13:32 /marlon/ LYSSA CARTER APRN ADVANCED PRACTICE REGISTERED NURSE, ANDRÉS 07/27/2024 ADDENDUM STATUS: COMPLETED alerting CM for fu. /indra CARTER APRN ADVANCED PRACTICE REGISTERED NURSE, PC Signed: 07/27/2024 13:33 Receipt Acknowledged By: 07/27/2024 13:36 /indra Hawk, provider education specialist RN for HONORIO FERNANDES 07/27/2024 ADDENDUM STATUS: COMPLETED provider Zina Carter called pt's home and spoke with pt's CERTIFIED PUBLIC ACCOUNTANT, pt now having good urine output to f/c and having BM's, pt to have voiding trial next week and will alert pt's RN CM per e-mail today /indra Hawk, provider education specialist RN Signed: 07/27/2024 13:52 [facility] Jul 27, 2024 01:32 PM ADDENDUM: LOCAL TITLE: Addendum STANDARD TITLE: ADDENDUM DATE OF NOTE: JUL 27, 2024@13:32:59 ENTRY DATE: JUL 27, 2024@13:32:59 AUTHOR: LYSSA CARTER EXP COSIGNER: URGENCY: STATUS: COMPLETED alerting CM for fu. /marlon/ LYSSA CARTER APRN ADVANCED PRACTICE REGISTERED NURSE, [facility] Signed: 07/27/2024 13:33 Receipt Acknowledged By: 07/27/2024 13:36 /indra Hawk, provider education specialist RN for HONORIO FERNANDES --- Original Document --- 07/25/24 [facility] SELF PRESENTING CARE COORD PLAN NOTE: Emergency Notification Intake Date Presenting to the Facility: Jul Date of note has been modified to reflect Date of Service. Reason for modification: HOSPITAL NOTIFICATION DATE/TIME: 07/26/2024 1148 EDT Method of Contact: Notified from [employer] worklist Notification ID: [id number] [facility] Referral #: [facility] Hospital Name: Hospital: [facility] Address: City: [place] State: [place] Zip Code: Phone : [facility] Facility Point of Contact: Name: ECHO ABARCA Phone: [phone] Chief complaint: INCONTINENT Primary Diagnosis: Disposition Discharged FROM ED Handoff to PACT/PCP [facility] was informed this was seen for emergent care. Records requested for upload and review: Pursuant to 38 CFR 17.4020(c)Authorized emergency treatments. Handoff to PACT/PCP for follow up/care coordination as deemed appropriate by the PACT/PCP. /marlon/ Randa Posada MSN, chef broiler or fry Nurse Coordinator Signed: 07/27/2024 10:48 Receipt Acknowledged By: 07/27/2024 13:32 /marlon/ LYSSA CARTER APRN ADVANCED PRACTICE REGISTERED NURSE, [facility] Jul 25, 2024 11:19 AM NONVA NOTE: LOCAL TITLE: [facility] SELF PRESENTING CARE COORD PLAN STANDARD TITLE: NONVA NOTE DATE OF NOTE: JUL 25, 2024@11:19 ENTRY DATE: JUL 27, 2024@10:46:23 AUTHOR: RANDA POSADA EXP COSIGNER: URGENCY: STATUS: COMPLETED [facility] SELF PRESENTING CARE COORD PLAN NOTE Has ADDENDA Emergency Notification Intake Date Presenting to the Facility: Jul Date of note has been modified to reflect Date of Service. Reason for modification: HOSPITAL NOTIFICATION DATE/TIME: 07/26/2024 1148 EDT Method of Contact: Notified from [employer] worklist Notification ID: [id number] [facility] Referral #: [facility] Hospital Name: Hospital: [facility] Address: City: [place] State: [place] Zip Code: Phone : [facility] Facility Point of Contact: Name: ECHO ABARCA Phone: [phone] Chief complaint: INCONTINENT Primary Diagnosis: Disposition Discharged FROM ED Handoff to PACT/PCP [facility] was informed this was seen for emergent care. Records requested for upload and review: Pursuant to 38 CFR 17.4020(c)Authorized emergency treatments. Handoff to PACT/PCP for follow up/care coordination as deemed appropriate by the PACT/PCP. /marlon/ Randa Posada MSN, chef broiler or fry Nurse Coordinator Signed: 07/27/2024 10:48 Receipt Acknowledged By: 07/27/2024 13:32 /marlon/ LYSSA CARTER APRN ADVANCED PRACTICE REGISTERED NURSE, HBFINESSE 07/27/2024 ADDENDUM STATUS: COMPLETED alerting CM for fu. /marlon/ LYSSA CARTER APRN ADVANCED PRACTICE REGISTERED NURSE, HB Signed: 07/27/2024 13:33 Receipt Acknowledged By: 07/27/2024 13:36 /marlon/ Janis Hawk, provider education specialist RN for HONORIO FERNANDES 07/27/2024 ADDENDUM STATUS: COMPLETED provider Zina Carter called pt's home and spoke with pt's CERTIFIED PUBLIC ACCOUNTANT, pt now having good urine output to f/c and having BM's, pt to have voiding trial next week and will alert pt's RN CM per e-mail today /marlon/ Janis Hawk, provider education specialist RN Signed: 07/27/2024 13:52 07/30/2024 ADDENDUM STATUS: COMPLETED Please request medical records for ED visito on 07/25. /marlon/ HONORIO FERNANDES RN Signed: 07/30/2024 09:54 Receipt Acknowledged By: * AWAITING SIGNATURE * RAMESH FUNES GENEVIEVE M [place]
--- OUTSIDE RECORDS SUMMARY | 2024-07-30 11:39 | XMS_ITS | Encounter Summary ---
Author Name [facility] [place] [facility] Address [address] [place] [address] Care Team Providers Care Information Services Consultant Name Role Phone LYSSA CARTER Primary Care [...] PART A Jul 17, 2000 PART A [id number] JESSICA ALVAREZ PATIENT MEDICARE (WNR) MEDICARE (M) PART B Jul 17, 2000 PART B [id number] JESSICA ALVAREZ PATIENT MEDICARE (WNR) MEDICARE (M) PART A Jul 17, 2000 PART A [id number] JESSICA ALVAREZ PATIENT MEDICARE (WNR) MEDICARE (M) PART B Jul 17, 2000 PART B [id number] JESSICA ALVAREZ PATIENT Selected Encounter This section includes the information on record at [place] for the Encounter. Date/Time Encounter Type Encounter Description Reason Pro vider Source Jul 30, 2024 03:39 PM Outpatient Encounter ADMIN PAT ACTIVTIES (GLENISNONCT) IHE Encounter Template Text not used by [place] Plan of Treatment: Future Appointments (+ 6 months) and Future Tests (+/- 45 days) The Plan of Treatment section includes future care activities for the patient from [facility] [place] [facility] This section includes future appointments and future orders which are active, pending or scheduled. Future Appointments This section includes appointments that were scheduled to occur 6 months from the date of the Encounter, up to a maximum of 20 appointments. The data comes from all [place] treatment facilities. Appointment Date/Time Appointment Type Appointme nt Facility Name Aug 03, 2024 08:05 AM [facility]ORY - NONE [facility] Social History: Smoking Status (Most current) and Tobacco Use (All prior to encounter date) This section includes the most current, and the historical, smoking and tobacco- related health factors from the [place] facility where the Encounter took place. Current Smoking Status This section includes the most current smoking, or tobacco-related health factor, from the [place] facility where the Encounter took place. Date/Time Current Smoking Status Comment Facil ity Oct 18, 2023 11:45 AM [place]-TOBACCO NEVER USED [facility] Tobacco Use History This section includes a history of the smoking, or tobacco-related health factors, that were collected on or before the date of the Encounter. The data comes from the [place] facility where the Encounter took place. Date/Time Smoking Status/Tobacco Use Comment F acility Oct 21, 2022 09:58 AM [place]-TOBACCO NEVER USED [place] Jul 23, 2021 11:35 AM VA-TOBACCO NEVER USED [place] Nov 01, 2001 10:14 AM HF V9 [facility] Sep 19, 2000 11:13 AM HF V9 CURRENT NON-SMOKER quit 1982 [facility] Advance Directives: All historical and current Section Date Range: From patient's date of to the date document was created. This section includes ALL of a patient's completed or amended [place] Advance and Rescinded Directives. The entries below indicate that a directive exists for the patient, but an actual copy is not included with this document. The data comes from all [place] facilities. Date Advance Directives Provider Source Feb 02, 2021 ADVANCE DIRECTIVE DISCUSSION [facility] Feb 13, 2020 ADVANCE DIRECTIVE DISCUSSION VANE DAWKINS [facility] Encounter Notes: All associated encounter notes This section contains the clinical notes associated to the Encounter. Date/Time Encounter Note(s) Provider Source Jul 31, 2024 09:26 AM ADDENDUM: LOCAL TITLE: Addendum STANDARD TITLE: ADDENDUM DATE OF NOTE: JUL 31, 2024@09:26:32 ENTRY DATE: JUL 31, 2024@09:26:33 AUTHOR: NAHOMY LUX COSIGNER: URGENCY: STATUS: COMPLETED Covering PCP alerting CM to pts Er visit to f/u on status. /marlon/ RONALDO BOOKER Signed: 07/31/2024 09:27 Receipt Acknowledged By: 07/31/2024 15:08 /es/ HONORIO FERNANDES RN === --- Original Document --- 07/28/24 [facility] SELF PRESENTING CARE COORD PLAN NOTE: Emergency Notification Intake Date Presenting to the Facility: Jul Date of note has been modified to reflect Date of Service. Reason for modification: HOSPITAL NOTIFICATION DATE/TIME: 07/30/2024 0939 EDT Method of Contact: Notified from ECR worklist Notification ID: [id number] [facility] Referral #: [facility] Name: Hospital: [facility] Address: City: [place] State: [place] Zip Code: Phone : Community Facility Point of Contact: Name: Phone: Chief complaint: DIFFICULTIES WITH CATHETER Primary Diagnosis: Disposition Discharged FROM ED Handoff to PACT/PCP [facility] was informed this was seen for emergent care. Records requested for upload and review: Pursuant to 38 CFR 17.4020(c)Authorized emergency treatments. Handoff to PACT/PCP for follow up/care coordination as deemed appropriate by the PACT/PCP. /marlon/ Alexander Posada MSN, liner helper Nurse Coordinator Signed: 07/30/2024 15:42 Receipt Acknowledged By: 07/31/2024 09:15 /marlon/ RONALDO BOOKER for LYSSA CARTER 07/28/2024 ADDENDUM STATUS: COMPLETED VistA Imaging Scanned Document - Addendum. [facility] 07/28/2024 ER NOTES SCANNED DOCUMENT SIGNATURE NOT REQUIRED Electronically Filed: 07/31/2024 by: JASSI BABCOCK [address] [facility] 07/31/2024 ADDENDUM STATUS: UNSIGNED You may not VIEW this UNSIGNED Addendum. [facility] Jul 28, 2024 09:00 AM NONVA NOTE: LOCAL TITLE: [facility] SELF PRESENTING CARE COORD PLAN STANDARD TITLE: NONVA NOTE DATE OF NOTE: JUL 28, 2024@09:00 ENTRY DATE: JUL 30, 2024@15:40:02 AUTHOR: ALEXANDER POSADA EXP COSIGNER: URGENCY: STATUS: COMPLETED [facility] PRESENTING CARE COORD PLAN NOTE Has ADDENDA Emergency Notification Intake Date Presenting to the Facility: Jul Date of note has been modified to reflect Date of Service. Reason for modification: HOSPITAL NOTIFICATION DATE/TIME: 07/30/2024 0939 EDT Method of Contact: Notified from ECR worklist Notification ID: [id number] [facility] Referral #: [facility] Hospital Name: Hospital: [facility] Address: City: [place] State: [place] Zip Code: Phone : Community Facility Point of Contact: Name: Phone: Chief complaint: DIFFICULTIES WITH CATHETER Primary Diagnosis: Disposition Discharged FROM ED Handoff to PACT/PCP [facility] was informed this was seen for emergent care. Records requested for upload and review: Pursuant to 38 CFR 17.4020(c)Authorized emergency treatments. Handoff to PACT/PCP for follow up/care coordination as deemed appropriate by the PACT/PCP. /marlon/ Alexander Posada MSN, liner helper Nurse Coordinator Signed: 07/30/2024 15:42 Receipt Acknowledged By: 07/31/2024 09:15 /indra BOOKER for LYSSA CARTER 07/28/2024 ADDENDUM STATUS: COMPLETED VistA Imaging Scanned Document - Addendum. [facility] 07/28/2024 ER NOTES SCANNED DOCUMENT SIGNATURE NOT REQUIRED Electronically Filed: 07/31/2024 by: JASSI BABCOCK [address] [facility] 07/31/2024 ADDENDUM STATUS: COMPLETED Covering PCP alerting CM to pts Er visit to f/u on status. /indra BOOKER Signed: 07/31/2024 09:27 Receipt Acknowledged By: 07/31/2024 15:08 /marlon/ HONORIO FERNANDES RN 07/31/2024 ADDENDUM STATUS: COMPLETED Patient seen today as scheduled= /indra FERNANDES RN Signed: 07/31/2024 15:17 ALEXANDER POSADA-ROYER [facility]
--- OUTSIDE RECORDS SUMMARY | 2024-07-31 06:30 | XMS_ITS ---
Author Name [facility] Organization [facility] Address [address] [place] [address] Care Team Providers Care Sausage Inspector Name Role Phone LYSSA CARTER Primary Care [...] PART A Jul 17, 2000 PART A [id number] JESSICA ALVAREZ PATIENT MEDICARE (WNR) MEDICARE (M) PART B Jul 17, 2000 PART B [id number] JESSICA ALVAREZ PATIENT MEDICARE (WNR) MEDICARE (M) PART A Jul 17, 2000 PART A [id number] JESSICA ALVAREZ PATIENT MEDICARE (WNR) MEDICARE (M) PART B Jul 17, 2000 PART B [id number] JESSICA ALVAREZ PATIENT Selected Encounter This section includes the information on record at [place] for the Encounter. 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 Date/Time Primary/Secondary Diagnosis Diagnosis Name Provider Source Jul 31, 2024 03:44 PM PRIMARY Benign prostatic hyperplasia with lower urinary tract symp HONORIO FERNANDES [place] [facility] Jul 31, 2024 03:44 PM SECONDARY Essential (primary) hypertension HONORIO FERNANDES [place] [facility] Plan of Treatment: Future Appointments (+ 6 months) and Future Tests (+/- 45 days) The Plan of Treatment section includes future care activities for the patient from all [place] treatmentfacilities. This section includes future appointments and future orders which are active, pending or scheduled. Future Appointments This section includes appointments that were scheduled to occur 6 months from the date of the Encounter, up to a maximum of 20 appointments. The data comes from all [place] treatment facilities. Appointment Date/Time Appointment Type Appointme nt Facility Name Aug 03, 2024 08:05 AM AMBULATORY - NONE ANIL Nevarez [facility] Social History: Smoking Status (Most current) and Tobacco Use (All prior to encounter date) This section includes the most current, and the historical, smoking and tobacco- related health factors from the [place] facility where the Encounter took place. Current Smoking Status This section includes the most current smoking, or tobacco-related health factor, from the [place] facility where the Encounter took place. Date/Time Current Smoking Status Comment Cheo stephen Oct 18, 2023 11:45 AM [place]-TOBACCO NEVER USED [facility] Tobacco Use History This section includes a history of the smoking, or tobacco-related health factors, that were collected on or before the date of the Encounter. The data comes from the [place] facility where the Encounter took place. Date/Time Smoking Status/Tobacco Use Comment F acelissa Oct 21, 2022 09:58 AM DE-TOBACCO NEVER USED [place] Jul 23, 2021 11:35 AM DE-TOBACCO NEVER USED [place] Nov 01, 2001 10:14 AM HF V9 CURRENT NON-SMOKER [facility] Sep 19, 2000 11:13 AM HF V9 CURRENT NON-SMOKER quit 1981 [facility] Advance Directives: All historical and current Section Date Range: From patient's date of to the date document was created. This section includes ALL of a patient's completed or amended [place] Advance and Rescinded Directives. The entries below indicate that a directive exists for the patient, but an actual copy is not included with this document. The data comes from all [place] facilities. Date Advance Directives Provider Source Feb 02, 2021 ADVANCE DIRECTIVE DISCUSSION VANE DAWKINS [facility] Feb 13, 2020 ADVANCE DIRECTIVE DISCUSSION VANE DAWKINS [facility] Encounter Notes: All associated encounter notes This section contains the clinical notes associated to the Encounter. Date/Time Encounter Note(s) Provider Source Jul 31, 2024 03:22 PM HB NURSING NOTE: LOCAL TITLE: [facility] NURSING PROGRESS STANDARD TITLE: [facility] NURSING NOTE DATE OF NOTE: JUL 31, 2024@15:22 ENTRY DATE: JUL 31, 2024@15:22:19 AUTHOR: HONORIO FERNANDES EXP COSIGNER: URGENCY: STATUS: COMPLETED [facility] NURSING PROGRESS Has ADDENDA [facility] FOLLOW-UP NOTE Date of visit: Jul Time spent with patient: 1 hr and 15 min Date of admission to [facility]: Patient Identified by: Name, , Facial Recognition, Known Address Source of Information: Patient, Caregiver MEDICATIONS: Active Medications: Active Outpatient Medications (including Supplies): ACETAMINOPHEN 325MG TAB TAKE TWO TABLETS BY MOUTH THREE ACTIVE TIMES A DAY FOR PAIN - DO NOT TAKE MORE THAN 12 TABLETS PER DAY AMLODIPINE BESYLATE 5MG TAB TAKE ONE TABLET BY MOUTH DAILY ACTIVE FOR BLOOD PRESSURE/HEART - DO NOT DRINK GRAPEFRUIT JUICE WHILE ON THIS DRUG ARTIFICIAL TEARS POLYVINYL ALCOHOL PUT 2 DROPS IN EYE(S) ACTIVE DIRECTED NEEDED Indication: FOR DRY EYES ASCORBIC ACID 250MG TAB TAKE ONE TABLET BY MOUTH ON ACTIVE TUESDAY, TUESDAY, TUESDAY, AND TUESDAY Indication: FOR NUTRITION BRIEF,TRANQ MARBYETH OVERNITE S#2114 PULLUP USE 1 BRIEF ACTIVE DIRECTED THREE TIMES A DAY CALCIUM 500MG/VITAMIN D 200 UNT TAB TAKE 1 TABLET BY MOUTH ACTIVE DAILY FOR NUTRITION CETIRIZINE HCL 10MG TAB TAKE ONE-HALF TABLET BY MOUTH ACTIVE DAILY Indication: FOR ALLERGIES DICLOFENAC NA 1% TOP GEL APPLY 2 GRAM STRIP TO AFFECTED ACTIVE AREA EVERY 6 HOURS NEEDED FOR PAIN APPLY TO KNEES DILTIAZEM (EQV-TIAZAC) 360MG 24HR CAP TAKE ONE CAPSULE BY ACTIVE MOUTH DAILY FOR BLOOD PRESSURE/HEART - DO NOT DRINK GRAPEFRUIT JUICE WHILE ON THIS DRUG FERROUS SULFATE 324MG EC TAB TAKE ONE TABLET BY MOUTH ON ACTIVE TUESDAY, TUESDAY, TUESDAY, AND TUESDAY Indication: FOR IRON SUPPLEMENT FLUTICASONE PROP 50MCG 120D NASAL INHL USE 2 SPRAYS IN ACTIVE EACH NOSTRIL AT BEDTIME FOR NASAL ALLERGY MELOXICAM 7.5MG TAB TAKE ONE TABLET BY MOUTH DAILY -TAKE ACTIVE WITH FOOD OR MILK Indication: FOR PAIN OR INFLAMMATION MENTHOL/M-SALICYLATE 16-30% TOP CREAM APPLY TO AFFECTED ACTIVE AREA THREE TIMES A DAY NEEDED FOR LOCAL PAIN. APPLY TO KNEES OMEPRAZOLE 20MG EC CAP TAKE TWO CAPSULES BY MOUTH TWICE A ACTIVE DAY FOR STOMACH. TAKE ON AN EMPTY STOMACH 30 MINUTES BEFORE A MEAL PSYLLIUM ORAL PWD MIX 1 TEASPOONFUL (5ML) IN 8 OZ GLASS OF ACTIVE WATER AND TAKE BY MOUTH DAILY FOR CONSTIPATION ROSUVASTATIN CA 10MG TAB TAKE ONE-HALF TABLET BY MOUTH AT ACTIVE BEDTIME FOR CHOLESTEROL SENNOSIDES 8.6MG TAB TAKE THREE TABLETS BY MOUTH DAILY FOR ACTIVE CONSTIPATION TAMSULOSIN HCL 0.4MG CAP TAKE TWO CAPSULES BY MOUTH EVERY ACTIVE EVENING FOR PROSTATE UNDERPAD,BED [id number] TRANQUILITY-2710 USE UNDERPAD ACTIVE DIRECTED NEEDED Non-VA MENTHOL 2% GEL,TOP SMALL AMOUNT AFFECTED AREA DAILY ACTIVE NEEDED Non-VA QUNOL CAP/TAB 1 CAP/TAB MOUTH DAILY ACTIVE Indication: supplement 21 Total Medications [id number] products used by patient: None per patient and caregiver- Medications/OTC/supplements started and/or discontinued since last [facility] visit. PER [facility] medication record. Medication list compared with list/medication bottles in the home: No medication discrepancies were identified. Has the patient missed any doses since the last visit?* No Updated medication list was provided for the patient/caregiver: during the visit Education Provided: Education including regimen, indication for use, potential side effects, and interactions provided for the following medications: Reviewed with caregiver Susy-she voiced understanding and agreement. Medication education and updated medication sheet provided to: Patient, Caregiver Patient/caregiver indicated understanding by: Verbalization Medications set up by: Caregiver, [facility] Staff (madi) HOME SAFETY ASSESSMENT: No Unsound structure No Unsafe functional barriers (stairs, etc.) No Unsafe placement of rugs, cords, furniture No Weapons in the home N/A Weapons secured in an area away from the area of care provision No Inadequate Heating/Electricity No Inadequate Cooking Facilities No Inadequate Sleeping Arrangements No Inadequate Ventilation No Inadequate [place] No Unsafe Storage of Supplies/Equipment No Presence of Infestation of Pests Yes Functioning Smoke Alarm Present No Fire Extinguisher Present Yes Fire Exit Plan No Use of Restraints Yes Home is adaptable for Home Care No Smoking materials present in the home N/A Pets secured in an area away from the area of care provision No Additional safety concerns: Temperature: Temperature: 98.3 F (36.8 C) Pulse: Pulse: 72 Respirations: Respirations: 18 Blood Pressure: Blood Pressure: 126/66 Weight: Weight: 145 lb (65.9 kg) Pain: Pain: 99 Orthostatic Blood Pressures: [id number] OXYGEN IN THE HOME: No PAIN EVALUATION: Patient answers NO to Do you have pain? question. NEUROLOGICAL STATUS: No problems noted The patient is currently: Alert, Oriented to person, Oriented to place, Oriented to situation, Follows verbal commands, Pupils PEARRL The patient exhibits: Short term memory loss, Forgetful Visual impairment, Wears glasses Education Provided: Safety precautions for cognitively impaired (fall precautions, wandering risk, medication lock-up, ect...), Review of s/s that need immediate medical attention (CVA, Head Trauma, Severe unrelieved headaches, seizures, ect...) Depression Screen: Over the last 2 WEEKS, how often have you been bothered by any of the following problems? Little interest or pleasure in doing things: not at all (0 points) Feeling down, depressed, or hopeless: not at all (0 points) Score: 0 Positive Screen = 3 or more Negative Screen = 2 and under Do you feel suicidal today? No CARDIOVASCULAR STATUS: Heart Sounds: Regular Pulses: Right Radial:Palpable Strong (+2) Left Radial: Palpable Strong (+2) Right Pedal: Palpable Strong (+2) Left Pedal: Palpable Strong (+2) Edema:none noted at today's visit-but he stated that he has had some-goes down when he lays down in the bed- Education Provided: take medications as prescribed, S/s that require immediate medication attention (s/s of acute AK, palpitations, ect...), Notify [facility]PC of new or worsening symptoms, Other: RESPIRATORY STATUS: Lung Sounds: Right Upper Lobe: PCP noted some crackles upon assessment- Right Middle Lobe: Clear Right Lower Lobe: Left Upper Lobe: Clear Left Lower Lobe: Clear Education provided: Symptoms to report to provider (new or worsening symptoms) GASTROINTESTINAL STATUS: Abdomen is: Flat Bowel Sounds: Normal Abdominal Pain: Describe: Bowel Movements: Normal Last BM: this am Frequency: every 2-3 days Patient has: Other: NUTRITIONAL STATUS: Current Diet: Easy to Chew/liberalized RECEIVES MEALS ON WHEELS- Appetite: Good-per patient Frequency of Meals: 2 meals/day GENITOURINARY STATUS: He stated he was not having any issues with voiding today-no s/s of UTI- Urine Characteristics: Clear Patient has/uses: Bathroom, Briefs ARACELI SCORE: Araceli scale (to be done on change in condition, post hospital stay, transfer, and quarterly). ARACELI SKIN RISK ASSESSMENT Sensory Perception:3 = Slightly Limited Moisture: 3 = Occasionally Moist Activity: 3 = Walks Occasionally Mobility: 3 = Slightly Limited Nutrition: 3 = Adequate Friction: 3 = No Apparent Problem 15-18 Mild Risk Score: 18 Araceli Scale Score:18 INTEGUMENTARY ASSESSMENT: Skin Color: Normal for ethnic group Skin Temperature: Warm Skin Moisture: Dry Skin Turgor: Within normal limits Skin Impairment: No MOBILITY: Patient is ambulatory with assistive devices: Rollator, Motorized chair/Scooter Patient extremety strength is: All extremities strong bilaterally FALLS: Have you fallen since last visit: No NURSING SUMMARY OF CARE: Reviewed poc and current interventions with patient-he voiced understanding and agreement-called and spoke with daughter Jesus over the phone and reviewed careplan with her also-she voiced understanding and agreement. PROCEDURES/INTERVENTIONS: Medication Reconcilliation, Mediplanner Fill, Vital Signs EDUCATION: Pain: Medication Compliance, Use of non-pharmacological methods, Notify [facility] of new or uncontrolled pain GI/: Use of laxatives/stool softeners, Medication compliance-signs and symptoms of UTI- HTN-encouraged to monitor BP-instructed on signs and symptoms of HTN-take medications as instructed/in mediplanners- Patient/Caregiver: Receptive to education Patient/caregiver indicates understanding of education by: Verbalizes Comments: instructed to elevate feet when he can to help with swelling- Helped patient call and req service for his scooter- Skilled nurse in home to educate on the following: HTN -Pain and BPH-signs and symptoms of UTI's- Patient is unable to prefill his mediplanners and he does not have a caregiver who is willing or capable. Will return to see patient in 2-3 weeks. medication record-iron and Vit c has not arrived at the time of this visit- Medication list compared with list/medication bottles in the home: No medication discrepancies were identified. Has the patient missed any doses since the last visit?* Yes: had missed several day and night doses-he had also moved meds around so hard to tell exactly what he took or did not take. Updated medication list was provided for the patient/caregiver: during the visit Education Provided: Education including regimen, indication for use, potential side effects, and interactions provided for the following medications: Reviewed with patient-he stated understanding of use and side effects. Medication education and updated medication sheet provided to: Patient Patient/caregiver indicated understanding by: Verbalization Medications set up by: Self, [facility] Staff (mediplanner) Completed the anitibiotics- HOME SAFETY ASSESSMENT: No Unsound structure No Unsafe functional barriers (stairs, etc.) No Unsafe placement of rugs, cords, furniture No Weapons in the home N/A Weapons secured in an area away from the area of care provision No Inadequate Heating/Electricity No Inadequate Cooking Facilities No Inadequate Sleeping Arrangements No Inadequate Ventilation No Inadequate [place] No Unsafe Storage of Supplies/Equipment No Presence of Infestation of Pests Yes Functioning Smoke Alarm Present Yes Fire Extinguisher Present Yes Fire Exit Plan No Use of Restraints Yes Home is adaptable for Home Care No Smoking materials present in the home N/A Pets secured in an area away from the area of care provision No Additional safety concerns: Pulse: Pulse: 78 Respirations: Respirations: 16 Blood Pressure: Blood Pressure: 132/76 Pain: Pain: 99 Orthostatic Blood Pressures: Standing did not get at today's uefke-qksuvok-gcjz his knees hurt Weight -did not get at today's visit-refused said his knees hurt- PAIN EVALUATION: Patient answers YES to Do you have pain? question. Pain Scale: Type of pain: Ache Location of current pain: right knee and neck-caregiver applied pain cream- Patient's acceptable pain level: 2 Chronic Onset/Duration: comes and goes but seems to stay longer now than it did- per patient. Not taking the tylenol as ordered which could help with his pain-due to the infreq that he takes it -unble to verify if it is effective or not- Therapeutic Actions Taken: Pharmacological Measures: tylenol and pain cream- Non-Pharmacological measures: Heat The pain affects your: Physical activity NEUROLOGICAL STATUS: No problems noted The patient is currently: Oriented to person, Oriented to place, Oriented to time, Oriented to situation, Pupils PEARRL The patient exhibits: Forgetful Hearing aide used9 Visual impairment, Wears glasses Recent eye exam on 12/28/23-did not need a new RX-only had minor changes- Education Provided: Review of s/s that need immediate medical attention (CVA, Head Trauma, Severe unrelieved headaches, seizures, ect...) Depression Screen: Over the last 2 WEEKS, how often have you been bothered by any of the following problems? Little interest or pleasure in doing things: not at all (0 points) Feeling down, depressed, or hopeless: not at all (0 points) Score: 0 Positive Screen = 3 or more Negative Screen = 2 and under Do you feel suicidal today? No CARDIOVASCULAR STATUS: Heart Sounds: Regular Pulses: Right Radial:Palpable Strong (+2) Left Radial: Palpable Strong (+2) Right Pedal: Palpable Strong (+2) Left Pedal: Palpable Strong (+2) Edema:none noted at today's visit-but he stated that he has had some-goes down when he lays down in the bed- Education Provided: take medications as prescribed, S/s that require immediate medication attention (s/s of acute AK, palpitations, ect...), Notify [facility] of new or worsening symptoms, Other: RESPIRATORY STATUS: Lung Sounds: Right Upper Lobe:Clear Right Middle Lobe: Clear Right Lower Lobe: Left Upper Lobe: Clear Left Lower Lobe: Clear Education provided: Symptoms to report to provider (new or worsening symptoms) GASTROINTESTINAL STATUS: Abdomen is: Flat Bowel Sounds: Normal Abdominal Pain: Describe: Bowel Movements: Normal Last BM:last night Frequency: every 2-3 days Patient has: Other: NUTRITIONAL STATUS: Current Diet: Easy to Chew/liberalized Patient reporst no issues with swalllowing-stated he does is doing fine- RECEIVES MEALS ON WHEELS- Appetite: Good-per patient-daughter is paying neighbor to cook his meals for him-she made him oatmeal and toast today- Frequency of Meals: 2 meals/day GENITOURINARY STATUS: He stated he was not having any issues with voiding today-no s/s of UTI- Urine Characteristics: Clear Patient has/uses: Bathroom, Briefs ARACELI SCORE: Araceli scale (to be done on change in condition, post hospital stay, transfer, and quarterly). ARACELI SKIN RISK ASSESSMENT Sensory Perception:3 = Slightly Limited Moisture: 3 = Occasionally Moist Activity: 3 = Walks Occasionally Mobility: 3 = Slightly Limited Nutrition: 3 = Adequate Friction: 3 = No Apparent Problem 15-18 Mild Risk Score: 18 Araceli Scale Score:18 INTEGUMENTARY ASSESSMENT: Skin Color: Normal for ethnic group Skin Temperature: Warm Skin Moisture: Dry Skin Turgor: Within normal limits Skin Impairment: No MOBILITY: Patient is ambulatory with assistive devices: Rollator, Motorized chair/Scooter Patient extremety strength is: All extremities strong bilaterally FALLS: Have you fallen since last visit: No NURSING SUMMARY OF CARE: Reviewed poc and current interventions with patient-he voiced understanding and agreement-called and spoke with daughter Jesus over the phone and reviewed careplan with her also-she voiced understanding and agreement. PROCEDURES/INTERVENTIONS: Medication Reconcilliation, Mediplanner Fill, Vital Signs EDUCATION: Pain: Medication Compliance, Use of non-pharmacological methods, Notify [facility] of new or uncontrolled pain GI/: Use of laxatives/stool softeners, Medication compliance-signs and symptoms of UTI- HTN-encouraged to monitor BP-instructed on signs and symptoms of HTN-take medications as instructed/in mediplanners- Patient/Caregiver: Receptive to education Patient/caregiver indicates understanding of education by: Verbalizes Comments: instructed to elevate feet when he can to help with swelling- Skilled nurse in home to educate on the following: HTN -Pain and BPH-signs and symptoms of UTI's-F/C cath= Patient is unable to prefill his mediplanners and he does not have a caregiver who is willing or capable. Has F/C-urine today looked yellow and clear-caregiver Susy stated that for two days it had blood in it-he was treated for a UTI. Will return to see patient in 1-3 weeks to follow up PCP, Was seen in local ER because he was not able to void or pass a BM-a f/c was placed and he was given an RX of levaquin. Unsure how much urine he was retaining- Patient was instructed to follow up with urology-he has not been seen here at the [place]-his local urologist retired a few years ago so he would like to see one here at the [place] now- /es/ HONORIO FERNANDES RN Signed: 07/31/2024 15:45 Receipt Acknowledged By: 08/02/2024 09:18 /es/ Amie Doan D.O. [facility] Attending for LYSSA CARTER 08/01/2024 ADDENDUM STATUS: UNSIGNED You may not VIEW this UNSIGNED Addendum. HONORIO FERNANDES-ASHLEYD [facility]
--- OUTSIDE RECORDS SUMMARY | 2024-07-31 07:00 | XMS_ITS ---
Author Name [facility] [place] [facility] [place] Address [address] [place] [address] Care Team Providers Care Forestry Support Specialist Name Role Phone LYSSA CARTER Primary Care [...] PART A Jul 17, 2000 PART A [id number] JESSICA ALVAREZ PATIENT MEDICARE (WNR) MEDICARE (M) PART B Jul 17, 2000 PART B [id number] [phone] [id number] JESSICA ALVAREZ PATIENT MEDICARE (WNR) MEDICARE (M) PART A Jul 17, 2000 PART A [id number] JESSICA ALVAREZ PATIENT MEDICARE (WNR) MEDICARE (M) PART B Jul 17, 2000 PART B [id number] JESSICA ALVAREZ PATIENT Selected Encounter This section includes the information on record at [place] for the Encounter. Date/Time Encounter Type Encounter Description Reason Pro vider Source Jul 31, 2024 11:00 AM Outpatient Encounter [facility] Nursing (RN / LP) IHE Encounter Template Text not used by [place] Plan of Treatment: Future Appointments (+ 6 months) and Future Tests (+/- 45 days) The Plan of Treatment section includes future care activities for the [facility] [place] [facility] This section includes future appointments and future [...] 08:05 AM AM[facility]ULATORY - NONE [place] [facility] Social History: Smoking Status (Most current) and [...] 18, 2023 11:45 AM [place]-TOBACCO NEVER USED [facility] Tobacco Use History This section includes a history of the smoking, or tobacco-related health factors, that were collected on or before the date of the Encounter. The data comes from the [place] facility where the Encounter took place. Date/Time Smoking Status/Tobacco Use Comment F acility Oct 21, 2022 09:58 AM [place]-TOBACCO NEVER USED [place] Jul 23, 2021 11:35 AM [place] Nov 01, 2001 10:14 AM HF V[facility] Sep 19, 2000 11:13 AM HF V9 CURRENT NON-SMOKER quit 1982 [facility] Advance Directives: All historical and current [...] Feb 02, 2021 [facility] Feb 13, 2020 ADVANCE DIRECTIVE DISCUSSION [facility]ANE DA[facility] Encounter Notes: All associated encounter notes This section contains the clinical notes associated to the Encounter. Date/Time Encounter Note(s) Provider Source Jul 31, 2024 04:23 PM [facility] MEDICATION MG T NOTE: LOCAL TITLE: [facility] NEW MEDICATION EDUCATION NOTE STANDARD TITLE: [facility] MEDICATION MGT NOTE DATE OF NOTE: JUL 31, 2024@16:23 ENTRY DATE: JUL 31, 2024@16:23:57 AUTHOR: HONORIO FERNANDES EXP COSIGNER: URGENCY: STATUS: COMPLETED New Medication Education. Patient's medications are managed by: Self/Caregiver [facility] Staff Patient currently uses the following to help manage medications: Medication Organizers (Pill Boxes) New Medication Education Indicated: new medication(s) started since last [facility] visit where medication reconciliation was performed or at this visit. Name of new medication(s): levooquin 750 mg times 10 days Education provided to patient/caregiver for new medication(s) provided based on individual needs, regarding the following: - Medication(s) name, type and reason for use. yes - How to administer the medication (including process, time, frequency, route, dose). yes - Anticipated action & potential adverse effects. yes - How to monitor the effects of the medication. yes Medication handout provided for prescription medication(s) at the time of dispensing. yes Did patient/caregiver understand medication education provided? Yes Verbalized understanding /marlon/ HONORIO FERNANDES RN Signed: 07/31/2024 16:27 [facility]
--- OUTSIDE RECORDS SUMMARY | 2024-07-31 07:16 | XMS_ITS | Encounter Summary ---
Author Name [facility] [place] [place] Address [address] [place] [id number] Care Team Providers Care Certified Scrub Tech Name Role Phone LYSSA CARTER Primary Care [...] PART A Jul 17, 2000 PART A [id number] [phone] JESSICA ALVAREZ PATIENT MEDICARE (WNR) MEDICARE (M) PART B Jul 17, 2000 PART B [id number] [id number] JESSICA ALVAREZ PATIENT MEDICARE (WNR) MEDICARE (M) PART A Jul 17, 2000 PART A [id number] JESSICA ALVAREZ PATIENT MEDICARE (WNR) MEDICARE (M) PART B Jul 17, 2000 PART B [id number] JESSICA ALVAREZ PATIENT Selected Encounter This section includes the information on record at [place] for the Encounter. 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 Date/Time Primary/Secondary Diagnosis Diagnosis Name Provider Source Jul 31, 2024 11:31 AM PRIMARY Need for assistance with personal care HE [facility]IS [facility] Plan of Treatment: Future Appointments (+ 6 months) and Future Tests (+/- 45 days) The Plan of Treatment section includes future care activities for the patient [facility] [place] [facility]. This section includes future appointments and future [...] 2024 08:05 AM AMBULATORY - NONE [place] [facility] Social History: Smoking Status (Most [...] place. Date/Time Current Smoking Status Comment Cheo ity Oct 18, 2023 11:45 AM [place]-TOBACCO NEVER USED [facility] Tobacco Use History This section includes a history of the smoking, or tobacco-related health factors, that were collected on or before the date of the Encounter. The data comes from the [place] facility where the Encounter took place. Date/Time Smoking Status/Tobacco Use Comment F acility Oct 21, 2022 09:58 AM [place]-TOBACCO NEVER USED [facility] Jul 23, 2021 11:35 AM [place]-TOBACCO NEVER USED [facility] Nov 01, 2001 10:14 AM HF V9 CURRENT NON-SMOKER [facility] Sep 19, 2000 11:13 AM HF V9 CURRENT NON-SMOKER quit 1982 [facility] Advance Directives: All historical and current Section [...] 02, 2021 ADVANCE DIRECTIVE DISCUSSION VANE DAWKINS [facility] Feb 13, 2020 ADVANCE DIRECTIVE DIS[facility] Encounter Notes: All associated encounter notes This section contains the clinical notes associated to the Encounter. Date/Time Encounter Note(s) Provider Source Jul 31, 2024 11:16 AM TELEPHONE ENCOUNTE R NOTE: LOCAL TITLE: [facility] TELEPHONE NOTE STANDARD TITLE: TELEPHONE ENCOUNTER NOTE DATE OF NOTE: JUL 31, 2024@11:16 ENTRY DATE: JUL 31, 2024@11:16:27 AUTHOR: HE [place] EXP COSIGNER: URGENCY: STATUS: COMPLETED Time spent on phone call: 11 min Social Work Telephone note July 31, 2024 Time: 11:05-11:16 Diagnosis: Need assistance with personal care Procedure: Case management Modifier: Licensed Clinical Division Chief Purpose of call: Daughter called to inquire about increasing HM/BLOCKER AND SEWER hours. Problem addressed: Daughter reported Laughlin has been discharged from [facility] in the past few days. She believes he requires more care. She reported he now has a catheter. He has increased need for assistance with dressing. He needs more assistance with grooming, bathing, and toileting. She also reported he needs increased supervision. She denied he is ready for placement. Plan of Care: This social media manager will add a comment to the consult to request increased hours for HM/BLOCKER AND SEWER services to address these issues. /marlon/ HE [facility]IS Signed: 07/31/2024 11:31 [facility]
--- OUTSIDE RECORDS SUMMARY | 2024-08-01 07:38 | XMS_ITS | Encounter Summary ---
Author Name [facility] [place] [facility] [place] Address [address] [place] [address] Care Team Providers Care Server Programmer Name Role Phone LYSSA CARTER Primary Care [...] PART A Jul 17, 2000 PART A [id number] JESSICA ALVAREZ PATIENT MEDICARE (WNR) MEDICARE (M) PART B Jul 17, 2000 PART B [id number] JESSICA ALVAREZ PATIENT MEDICARE (WNR) MEDICARE (M) PART A Jul 17, 2000 PART A [id number] JESSICA ALVAREZ PATIENT MEDICARE (WNR) MEDICARE (M) PART B Jul 17, 2000 PART B [id number] JESSICA ALVAREZ PATIENT Selected Encounter This section includes the information on record at [place] for the Encounter. Date/Time Encounter Type Encounter Description Reason Pro vider Source Aug 01, 2024 11:38 AM Outpatient Encounter ADMIN PAT ACTIVTIES (MASNONCT) IHE Encounter Template Text not used by [place] Plan of Treatment: Future Appointments (+ 6 months) and Future Tests (+/- 45 days) The Plan of Treatment section includes future care activities for the patient from all [place] treatmentfacilities. This section includes future appointments and [...] 08:05 AM AM[facility]ATORY - [facility] [place] [facility] Social History: Smoking Status (Most current) [...] 18, 2023 11:45 AM [place]-TOBACCO NEVER USED [facility] Tobacco Use History This section includes a history of the smoking, or tobacco-related health factors, that were collected on or before the date of the Encounter. The data comes from the [place] facility where the Encounter took place. Date/Time Smoking Status/Tobacco Use Comment F acility Oct 21, 2022 09:58 AM [place]-TOBACCO NEVER USED [place] Jul 23, 2021 11:35 AM [place]-TOBACCO NEVER USED [place] Nov 01, 2001 10:14 AM HF V9 [facility] Sep 19, 2000 11:13 AM HF V9 CURRENT NON-SMOKER quit 1982 [facility] Advance Directives: All historical and current Section [...] Feb 02, 2021 [facility] Feb 13, 2020 ADVANCE DIRECTIVE DISCUSSION VANE DAWKINS [facility] Encounter Notes: All associated encounter notes This section contains the clinical notes associated to the Encounter. Date/Time Encounter Note(s) Provider Source Jul 26, 2024 11:38 AM NONVA NOTE: LOCAL TITLE: OUTSIDE MEDICAL RECORD-OTHER STANDARD TITLE: NONVA NOTE DATE OF NOTE: JUL 26, 2024@11:38 ENTRY DATE: AUG 01, 2024@11:39:01 AUTHOR: TREVIN HARMON EXP COSIGNER: URGENCY: STATUS: COMPLETED The scanned document may be viewed in [employer]. /marlon/ TREVIN HARMON NETWORK CONTROLLER Signed: 08/01/2024 11:39 TREVIN HARMONDelta [facility]
--- OUTSIDE RECORDS SUMMARY | 2024-08-02 07:45 | XMS_ITS ---
Author Name [facility] Organization [facility] [place] Address [address] [place] [address] Care Team Providers Care Business Analyst Consultant Name Role Phone LYSSA CARTER Primary [...] PART A Jul 17, 2000 PART A [id number] [phone] JESSICA ALVAREZ PATIENT MEDICARE (WNR) MEDICARE (M) PART B Jul 17, 2000 PART B [id number] JESSICA ALVAREZ PATIENT MEDICARE (WNR) MEDICARE (M) PART A Jul 17, 2000 PART A [id number] [phone] [id number] JESSICA ALVAREZ PATIENT MEDICARE (WNR) MEDICARE (M) PART B Jul 17, 2000 PART B [id number] [phone] JESSICA ALVAREZ PATIENT Selected Encounter This section includes the information on record at [place] for the Encounter. 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 Date/Time Primary/Secondary Diagnosis Diagnosis Name Provider Source Aug 02, 2024 04:46 PM PRIMARY Benign prostatic hyperplasia with lower urinary tract symp FERNANDESHONORIO F TAVO [facility] Plan of Treatment: Future Appointments (+ 6 months) and Future Tests (+/- 45 days) The Plan of Treatment section includes future care activities for the patient [facility] [place] [facility] This section includes future appointments and future orders which are active, pending or scheduled. Future Appointments This section includes appointments that were scheduled to occur 6 months from the date of the Encounter, up to a maximum of 20 appointments. The data comes from all [place] treatment facilities. Appointment Date/Time Appointment Type Appointme nt Facility Name Aug 03, 2024 08:05 AM AMBULATORY - NONE [facility] Social History: Smoking Status (Most current) and Tobacco Use (All prior to encounter date) This section includes the most current, and the historical, smoking and tobacco- related health factors from the [place] facility where the Encounter took place. Current Smoking Status This section includes the most current smoking, or tobacco-related health factor, from the [place] facility where the Encounter took place. Date/Time Current Smoking Status Comment Cheo ity Oct 18, 2023 11:45 AM [place]-TOBACCO NEVER USED [facility] Tobacco Use History This section includes a history of the smoking, or tobacco-related health factors, that were collected on or before the date of the Encounter. The data comes from the [place] facility where the Encounter took place. Date/Time Smoking Status/Tobacco Use Comment F acility Oct 21, 2022 09:58 AM [facility] Jul 23, 2021 11:35 AM [facility] Nov 01, 2001 10:14 AM HF V9 CURRENT NON-SMOKER [facility] Sep 19, 2000 11:13 AM HF V9 CURRENT NON-SMOKER quit 1982 [facility] Advance Directives: All historical and current Section Date Range: From patient's date of to the date document was created. This section includes ALL of a patient's completed or amended [place] Advance and Rescinded Directives. The entries below indicate that a directive exists for the patient, but an actual copy is not included with this document. The data comes from all [place] facilities. Date Advance Directives Provider Source Feb 02, 2021 ADVANCE DIRECTIVE DISCUSSION VANE DAWKINS [facility] Feb 13, 2020 AD[facility]ANCE DIRECTIVE DIS[facility] Encounter Notes: All associated encounter notes This section contains the clinical notes associated to the Encounter. Date/Time Encounter Note(s) Provider Source Aug 02, 2024 05:07 PM ADDENDUM: LOCAL TITLE: Addendum STANDARD TITLE: ADDENDUM DATE OF NOTE: AUG 02, 2024@17:07:08 ENTRY DATE: AUG 02, 2024@17:07:09 AUTHOR: [facility] [place] EXP COSIGNER: URGENCY: STATUS: COMPLETED This school social worker attempted to call daughter to discuss food insecurity with her and resources. No answer or voicemail. Will attempt again tomorrow. /marlon/ [facility] [place] Signed: 08/02/2024 17:08 Receipt Acknowledged By: 08/02/2024 17:25 /marlon/ HONORIO FERNANDES RN --- Original Document --- 08/02/24 [facility] NURSING PROGRESS: [facility] FOLLOW-UP NOTE Date of visit: Jul Time spent with patient: 60 min Date of admission to [facility]: Patient Identified by: Name, Facial Recognition, Known Address Source of Information: Patient, CaregiverMike What matter most to you in your life right now? Getting this thing out MEDICATIONS: Active Medications: Active Outpatient Medications (including [...] TUESDAY, AND TUESDAY Indication: FOR NUTRITION BRIEF,TRANQ MARYBETH OVERNITE S#2114 PULLUP USE 1 BRIEF ACTIVE [...] NEEDED FOR LOCAL PAIN. APPLY TO KNEES NUTRITION SUPL ENSURE PLUS/VANILLA LIQ TAKE 1 CAN BY MOUTH PENDING THREE TIMES A DAY Indication: FOR NUTRITION OMEPRAZOLE 20MG EC CAP TAKE TWO CAPSULES [...] MOUTH EVERY ACTIVE EVENING FOR PROSTATE UNDERPAD,BED [id number] TRANQUILITY-2710 USE UNDERPAD ACTIVE DIRECTED NEEDED Non-VA MENTHOL 2% GEL,TOP SMALL AMOUNT AFFECTED AREA DAILY ACTIVE NEEDED Non-VA QUNOL CAP/TAB 1 CAP/TAB MOUTH DAILY ACTIVE Indication: supplement 22 Total Medications Ulki-aud-qdbyugz products used by patient: none per caregivers Medications/OTC/supplements started and/or discontinued since last [facility] visit. PER [facility] medication record. Medication list compared with list/medication bottles in the home: No medication discrepancies were identified. Has the patient missed any doses since the last visit?* No Updated medication list was provided for the patient/caregiver: during the visit Education Provided: Education including regimen, indication for use, potential side effects, and interactions provided for the following medications: reviewed with Mike- Medication education and updated medication sheet provided to: Patient Patient/caregiver indicated understanding by: VerbalizationCompliance has improved with the two new caregivers reminding him to take his meds. Medications set up by: Caregiver, [facility] Staff (madi) HOME SAFETY ASSESSMENT: No Unsound structure No Unsafe functional barriers (stairs, etc.) No Unsafe placement of rugs, cords, furniture No Weapons in the home N/A Weapons secured in an area away from the area of care provision No Inadequate Heating/Electricity No Inadequate Cooking Facilities No Inadequate Sleeping Arrangements No Inadequate Ventilation No Inadequate Freeburn No Unsafe Storage of Supplies/Equipment No Presence of Infestation of Pests No Functioning Smoke Alarm Present No Fire Extinguisher Present Yes Fire Exit Plan No Use of Restraints Yes Home is adaptable for Home Care No Smoking materials present in the home N/A Pets secured in an area away from the area of care provision Yes Additional safety concerns: lives alone and is a fall risk Temperature: Temperature: 97.3 F (36.3 C) Pulse: Pulse: 70 Respirations: Respirations: 16 Blood Pressure: Blood Pressure: 136/78 Pain: Pain: 99 OXYGEN IN THE HOME: No PAIN EVALUATION: [...] require immediate medication attention (s/s of acute OK, palpitations, ect...), Notify [facility] of new or [...] Frequency of Meals: 2 meals/day GENITOURINARY STATUS: Urine Characteristics: Clear Patient has/uses: Bathroom, Briefs [...] HTN -Pain and BPH-signs and symptoms of UTI's PCP had requested voiding trial this week-f/c removed with no issues-around 11:30 am-around 2pm he stated that he had voided- he had around 100 in his urinal-he states he does not want the f/c back in-will contact caregivers tomorrow to see how he did through the night. Patient is unable to prefill his mediplanners and he does not have a caregiver who is willing or capable. Has F/C-urine today looked yellow and clear- Will return to see patient in 1-2 weeks to follow up PCP, Visit today for a voiding trial-f/c removed with no issues-around 11:30 am- around 2pm he stated that he had voided- he had around 100 in his urinal-he states he does not want the f/c back in-will contact caregivers tomorrow to see how he did through the night. PT, Caregivers are aksing for a hand held shower= SW, Neighbor Shelby is buying food for the patient-can he get some kind of assitance help with this? would he be eliglble for snap benefits? /es/ HONORIO FERNANDES RN Signed: 08/02/2024 16:46 Receipt Acknowledged By: 08/02/2024 16:50 /es/ [facility] [place] * AWAITING SIGNATURE * DAYNE DUMONT * AWAITING SIGNATURE * LYSSA CARTER CONNIE D [place] Aug 02, 2024 04:35 PM HB NURSING NOTE: LOCAL TITLE: [facility] NURSING PROGRESS STANDARD TITLE: HB NURSING NOTE DATE OF NOTE: AUG 02, 2024@16:35 ENTRY DATE: AUG 02, 2024@16:35:49 AUTHOR: HONORIO FERNANDES EXP COSIGNER: URGENCY: STATUS: COMPLETED [facility] NURSING PROGRESS Has ADDENDA HB FOLLOW-UP NOTE Date of visit: Jul Time spent with patient: 60 min Date of admission to [facility]: Patient Identified by: Name, Facial Recognition, Known Address Source of Information: Patient, CaregiverLatisha and Shelby What matter most to you in your life right now? Getting this thing out MEDICATIONS: Active Medications: Active Outpatient Medications (including [...] TUESDAY, AND TUESDAY Indication: FOR NUTRITION BRIEF,TRANQ MARYBETH OVERNITE S#2114 PULLUP USE 1 BRIEF ACTIVE [...] NEEDED FOR LOCAL PAIN. APPLY TO KNEES NUTRITION SUPL ENSURE PLUS/VANILLA LIQ TAKE 1 CAN BY MOUTH PENDING THREE TIMES A DAY Indication: FOR NUTRITION OMEPRAZOLE 20MG EC CAP TAKE TWO CAPSULES [...] MOUTH EVERY ACTIVE EVENING FOR PROSTATE UNDERPAD,BED [id number] TRANQUILITY-2710 USE UNDERPAD ACTIVE DIRECTED NEEDED Non-VA MENTHOL 2% GEL,TOP SMALL AMOUNT AFFECTED AREA DAILY ACTIVE NEEDED Non-VA QUNOL CAP/TAB 1 CAP/TAB MOUTH DAILY ACTIVE Indication: supplement 22 Total Medications Wigt-wcw-zcnpvcs products used by patient: none per caregivers Medications/OTC/supplements started and/or discontinued since last [facility] visit. PER [facility] medication record. Medication list compared with list/medication bottles in the home: No medication discrepancies were identified. Has the patient missed any doses since the last visit?* No Updated medication list was provided for the patient/caregiver: during the visit Education Provided: Education including regimen, indication for use, potential side effects, and interactions provided for the following medications: reviewed with Mike- Medication education and updated medication sheet provided to: Patient Patient/caregiver indicated understanding by: VerbalizationCompliance has improved with the two new caregivers reminding him to take his meds. Medications set up by: Caregiver, [facility] Staff (mediplanner) HOME SAFETY ASSESSMENT: No Unsound structure No Unsafe functional barriers (stairs, etc.) No Unsafe placement of rugs, cords, furniture No Weapons in the home N/A Weapons secured in an area away from the area of care provision No Inadequate Heating/Electricity No Inadequate Cooking Facilities No Inadequate Sleeping Arrangements No Inadequate Ventilation No Inadequate Freeburn No Unsafe Storage of Supplies/Equipment No Presence of Infestation of Pests No Functioning Smoke Alarm Present No Fire Extinguisher Present Yes Fire Exit Plan No Use of Restraints Yes Home is adaptable for Home Care No Smoking materials present in the home N/A Pets secured in an area away from the area of care provision Yes Additional safety concerns: lives alone and is a fall risk Temperature: Temperature: 97.3 F (36.3 C) Pulse: Pulse: 70 Respirations: Respirations: 16 Blood Pressure: Blood Pressure: 136/78 Pain: Pain: 99 OXYGEN IN THE HOME: No PAIN EVALUATION: [...] require immediate medication attention (s/s of acute OK, palpitations, ect...), Notify [facility] of new or worsening symptoms, Other: RESPIRATORY [...] Frequency of Meals: 2 meals/day GENITOURINARY STATUS: Urine Characteristics: Clear Patient has/uses: Bathroom, Briefs [...] HTN -Pain and BPH-signs and symptoms of UTI's PCP had requested voiding trial this week-f/c removed with no issues-around 11:30 am-around 2pm he stated that he had voided- he had around 100 in his urinal-he states he does not want the f/c back in-will contact caregivers tomorrow to see how he did through the night. Patient is unable to prefill his mediplanners and he does not have a caregiver who is willing or capable. Has F/C-urine today looked yellow and clear- Will return to see patient in 1-2 weeks to follow up PCP, Visit today for a voiding trial-f/c removed with no issues-around 11:30 am- around 2pm he stated that he had voided- he had around 100 in his urinal-he states he does not want the f/c back in-will contact caregivers tomorrow to see how he did through the night. PT, Caregivers are aksing for a hand held shower= SW, Neighbor Shelby is buying food for the patient-can he get some kind of assitance help with this? would he be eliglble for snap benefits? /es/ HONORIO FERNANDES RN Signed: 08/02/2024 16:46 Receipt Acknowledged By: 08/02/2024 16:50 /es/ [facility] [place] 08/03/2024 07:46 /es/ DAYNE DUMONT, PT, DPT PHYSICAL THERAPIST, [facility] 08/03/2024 10:42 /es/ LYSSA CARTER APRN ADVANCED PRACTICE REGISTERED NURSE, [facility] 08/02/2024 ADDENDUM STATUS: COMPLETED This school social worker attempted to call daughter to discuss food insecurity with her and resources. No answer or voicemail. Will attempt again tomorrow. /marlon/ [facility] [place] Signed: 08/02/2024 17:08 Receipt Acknowledged By: 08/02/2024 17:25 /marlon/ HONORIO DE LA TORRE RN-ASHELYD [facility]
--- OUTSIDE RECORDS SUMMARY | 2024-08-27 06:30 | XMS_ITS ---
Author Name [facility] Organization [facility] [place] Address [address] [place] [address] Care Team Providers Care Principal Technical Writer Name Role Phone LYSSA CARTER Primary Care [...] PART A Jul 17, 2000 PART A [id number] [phone] JESSICA ALVAREZ PATIENT MEDICARE (WNR) MEDICARE (M) PART B Jul 17, 2000 PART B [id number] [phone] JESSICA ALVAREZ PATIENT MEDICARE (WNR) MEDICARE (M) PART A Jul 17, 2000 PART A [id number] JESSICA ALVAREZ PATIENT MEDICARE (WNR) MEDICARE (M) PART B Jul 17, 2000 PART B [id number] JESSICA ALVAREZ PATIENT Selected Encounter This section includes the information on record at [place] for the Encounter. Date/Time Encounter Type Encounter Description Reason Provider Source August 27, 2024 10:30 AM HHS/HOSPICE OF RN EA 15 MIN [facility] Nursing (RN / LP) ICD-10-CM I10 Essential (primary) hypertension SANNA FERNANDES [facility] Encounter Template Text not used by [place] Assessments - Encounter Diagnoses This section includes the primary and secondary diagnoses documented for the Encounter. Date/Time Primary/Secondary Diagnosis Diagnosis Name Provider Source August 27, 2024 02:34 PM PRIMARY Essential (primary) hypertension [facility] August 27, 2024 02:34 PM SECONDARY Benign prostatic hyperplasia with lower urinary tract symp HONORIO FERNANDES [facility] Social History: Smoking Status (Most current) and Tobacco Use (All prior to encounter date) This section includes the most current, and the historical, smoking and tobacco- related health factors from the [place] facility where the Encounter took place. Current Smoking Status This section includes the most current smoking, or tobacco-related health factor, from the [place] facility where the Encounter took place. Date/Time Current Smoking Status Comment Cheo stephen Oct 18, 2023 11:45 AM [place]-TOBACCO NEVER USED [facility] Tobacco Use History This section includes a history of the smoking, or tobacco-related health factors, that were collected on or before the date of the Encounter. The data comes from the [place] facility where the Encounter took place. Date/Time Smoking Status/Tobacco Use Comment F acelissa Oct 21, 2022 09:58 AM AR-TOBACCO NEVER USED [facility] Jul 23, 2021 11:35 AM AR-TOBACCO NEVER USED [facility] Nov 01, 2001 10:14 AM HF V9 CURRENT NON-SMOKER [facility] Sep 19, 2000 11:13 AM HF V9 CURRENT NON-SMOKER quit 1982 [facility] Advance Directives: All historical and current Section Date Range: From patient's date of to the date document was created. This section includes ALL of a patient's completed or amended [place] Advance and Rescinded Directives. The entries below indicate that a directive exists for the patient, but an actual copy is not included with this document. The data comes from all [place] facilities. Date Advance Directives Provider Source Feb 02, 2021 ADVANCE DIRECTIVE DISCUSSION VANOLIVANE-CDD [facility] Feb 13, 2020 ADVANCE DIRECTIVE DISCUSSION VANE DAWKINS [facility] Encounter Notes: All associated encounter notes This section contains the clinical notes associated to the Encounter. Date/Time Encounter Note(s) Provider Source August 30, 2024 03:56 PM ADDENDUM: LOCAL TITLE: Addendum STANDARD TITLE: ADDENDUM DATE OF NOTE: AUGUST 30, 2024@15:56:42 ENTRY DATE: AUGUST 30, 2024@15:56:43 AUTHOR: HONORIO FERNANDES EXP COSIGNER: URGENCY: STATUS: COMPLETED Caregiver called and requesting bed side table- /es/ HONORIO FERNANDES RN Signed: 08/30/2024 15:57 Receipt Acknowledged By: 09/03/2024 07:38 /es/ DAYNE DUMONT PT, DPT PHYSICAL THERAPIST, [facility] --- Original Document --- 08/27/24 [facility] NURSING PROGRESS: [facility] FOLLOW-UP NOTE Date of visit: August Time spent with patient: 60 min Date of admission to [facility]: Patient Identified by: Name, Facial Recognition, Known Address Source of Information: Patient What matter most to you in your life right now? 'Having my scoooter so I can get out and about MEDICATIONS: Active Medications: Active Outpatient Medications (including [...] HOURS NEEDED FOR PAIN APPLY TO KNEES FERROUS SULFATE 324MG EC TAB TAKE ONE TABLET BY MOUTH ON ACTIVE TUESDAY, TUESDAY, TUESDAY, AND TUESDAY Indication: FOR IRON SUPPLEMENT FINASTERIDE 5MG TAB TAKE ONE TABLET BY MOUTH DAILY FOR ACTIVE PROSTATE - HAZARDOUS HANDLING ALERT FLUTICASONE PROP 50MCG 120D NASAL INHL USE [...] PLUS/VANILLA LIQ TAKE 1 CAN BY MOUTH ACTIVE THREE TIMES A DAY Indication: FOR NUTRITION OMEPRAZOLE 20MG EC CAP TAKE TWO CAPSULES BY MOUTH TWICE A ACTIVE DAY FOR STOMACH. TAKE ON AN EMPTY STOMACH 30 MINUTES BEFORE A MEAL ROSUVASTATIN CA 10MG TAB TAKE ONE-HALF TABLET BY MOUTH AT ACTIVE BEDTIME FOR CHOLESTEROL SENNOSIDES 8.6MG TAB TAKE THREE TABLETS BY MOUTH DAILY FOR ACTIVE CONSTIPATION UNDERPAD,BED [id number] TRANQUILITY-2710 USE UNDERPAD ACTIVE DIRECTED NEEDED Non-VA MENTHOL 2% GEL,TOP SMALL AMOUNT AFFECTED AREA DAILY ACTIVE NEEDED Non-VA QUNOL CAP/TAB 1 CAP/TAB MOUTH DAILY ACTIVE Indication: supplement 20 Total Medications Fuxn-dud-funrhsv products used by patient: None per patient- Medications/OTC/supplements started and/or discontinued since last [facility] visit. Per [facility] medication records. Medication list compared with list/medication bottles in the home: No medication discrepancies were identified. Has the patient missed any doses since the last visit?* No Updated medication list was provided for the patient/caregiver: during the visit Education Provided: Education including regimen, indication for use, potential side effects, and interactions provided for the following medications: Reviewed with patient- Medication education and updated medication sheet provided to: Patient Patient/caregiver indicated understanding by: Verbalization Medications set up by: Self, [facility] Staff ([facility]) HOME SAFETY ASSESSMENT: No Unsound structure No Unsafe functional barriers (stairs, etc.) No Unsafe placement of rugs, cords, furniture No Weapons in the home N/A Weapons secured in an area away from the area of care provision No Inadequate Heating/Electricity No Inadequate Cooking Facilities No Inadequate Sleeping Arrangements No Inadequate Ventilation No Inadequate [place] No Unsafe Storage of Supplies/Equipment No Presence of Infestation of Pests Yes Functioning Smoke Alarm Present Yes Fire Extinguisher Present Yes Fire Exit Plan No Use of Restraints Yes Home is adaptable for Home Care No Smoking materials present in the home N/A Pets secured in an area away from the area of care provision Yes Additional safety concerns: lives alone- Temperature: Temperature: 98.2 F (36.8 C) Pulse: Pulse: 66 Respirations: Respirations: 18 Blood Pressure: Blood Pressure: 130/68 Pain: Pain: 0 Orthostatic Blood Pressures: [id number] OXYGEN IN THE HOME: No PAIN EVALUATION: Patient answers NO to Do you have pain? question. NEUROLOGICAL STATUS: No problems noted The patient is currently: Alert, Oriented to person, Oriented to place, Oriented to situation, Follows verbal commands, Pupils PEARRL The patient exhibits: Forgetful Visual impairment, Wears glasses Education Provided: Review of s/s that need [...] require immediate medication attention (s/s of acute [place], palpitations, ect...), Notify [facility] of new or worsening symptoms, Other: RESPIRATORY [...] fine- RECEIVES MEALS ON WHEELS- Appetite: Good-per patient- Frequency of Meals: 2 meals/day GENITOURINARY STATUS: Patient stated he is voiding-unable to tell how much-KJ says she has emptied his urinal a few times and it is full. Urine Characteristics: Clear Patient has/uses: Bathroom, Briefs [...] -Pain and BPH-signs and symptoms of UTI's Will return to see patient in 3-4 weeks to follow up PCP, Please refill/renew aspirin-was d/c per pharmacy due to not being filled-he had a stock pile-he is not taking his mideications everyday- /es/ HONORIO FERNANDES RN Signed: 08/27/2024 14:34 Receipt Acknowledged By: 08/28/2024 15:37 /marlon/ LYSSA CARTER APRN ADVANCED PRACTICE REGISTERED NURSE, [facility] HONORIO FERNANDES-ASHLEYD [facility] August 27, 2024 02:25 PM [facility] NURSING NOTE: LOCAL TITLE: [facility] NURSING PROGRESS STANDARD TITLE: [facility] NURSING NOTE DATE OF NOTE: AUGUST 27, 2024@14:25 ENTRY DATE: AUGUST 27, 2024@14:25:40 AUTHOR: HONORIO FERNANDES EXP COSIGNER: URGENCY: STATUS: COMPLETED [facility] NURSING PROGRESS Has ADDENDA [facility] FOLLOW-UP NOTE Date of visit: August Time spent with patient: 60 min Date of admission to [facility]: Patient Identified by: Name, Facial Recognition, Known Address Source of Information: Patient What matter most to you in your life right now? 'Having my scoooter so I can get out and about MEDICATIONS: Active Medications: Active Outpatient Medications (including [...] HOURS NEEDED FOR PAIN APPLY TO KNEES FERROUS SULFATE 324MG EC TAB TAKE ONE TABLET BY MOUTH ON ACTIVE TUESDAY, TUESDAY, TUESDAY, AND TUESDAY Indication: FOR IRON SUPPLEMENT FINASTERIDE 5MG TAB TAKE ONE TABLET BY MOUTH DAILY FOR ACTIVE PROSTATE - HAZARDOUS HANDLING ALERT FLUTICASONE PROP 50MCG 120D NASAL INHL USE [...] PLUS/VANILLA LIQ TAKE 1 CAN BY MOUTH ACTIVE THREE TIMES A DAY Indication: FOR NUTRITION OMEPRAZOLE 20MG EC CAP TAKE TWO CAPSULES BY MOUTH TWICE A ACTIVE DAY FOR STOMACH. TAKE ON AN EMPTY STOMACH 30 MINUTES BEFORE A MEAL ROSUVASTATIN CA 10MG TAB TAKE ONE-HALF TABLET BY MOUTH AT ACTIVE BEDTIME FOR CHOLESTEROL SENNOSIDES 8.6MG TAB TAKE THREE TABLETS BY MOUTH DAILY FOR ACTIVE CONSTIPATION UNDERPAD,BED [id number] TRANQUILITY-2710 USE UNDERPAD ACTIVE DIRECTED NEEDED Non-VA MENTHOL 2% GEL,TOP SMALL AMOUNT AFFECTED AREA DAILY ACTIVE NEEDED Non-VA QUNOL CAP/TAB 1 CAP/TAB MOUTH DAILY ACTIVE Indication: supplement 20 Total Medications Ixib-rqt-iwyfdkk products used by patient: None per patient- Medications/OTC/supplements started and/or discontinued since last [facility] visit. Per [facility] medication records. Medication list compared with list/medication bottles in the home: No medication discrepancies were identified. Has the patient missed any doses since the last visit?* No Updated medication list was provided for the patient/caregiver: during the visit Education Provided: Education including regimen, indication for use, potential side effects, and interactions provided for the following medications: Reviewed with patient- Medication education and updated medication sheet provided to: Patient Patient/caregiver indicated understanding by: Verbalization Medications set up by: Self, [facility] Staff ([facility]) HOME SAFETY ASSESSMENT: No Unsound structure No Unsafe functional barriers (stairs, etc.) No Unsafe placement of rugs, cords, furniture No Weapons in the home N/A Weapons secured in an area away from the area of care provision No Inadequate Heating/Electricity No Inadequate Cooking Facilities No Inadequate Sleeping Arrangements No Inadequate Ventilation No Inadequate [place] No Unsafe Storage of Supplies/Equipment No Presence of Infestation of Pests Yes Functioning Smoke Alarm Present Yes Fire Extinguisher Present Yes Fire Exit Plan No Use of Restraints Yes Home is adaptable for Home Care No Smoking materials present in the home N/A Pets secured in an area away from the area of care provision Yes Additional safety concerns: lives alone- Temperature: Temperature: 98.2 F (36.8 C) Pulse: Pulse: 66 Respirations: Respirations: 18 Blood Pressure: Blood Pressure: 130/68 Pain: Pain: 0 Orthostatic Blood Pressures: [id number] OXYGEN IN THE HOME: No PAIN EVALUATION: Patient answers NO to Do you have pain? question. NEUROLOGICAL STATUS: No problems noted The patient is currently: Alert, Oriented to person, Oriented to place, Oriented to situation, Follows verbal commands, Pupils PEARRL The patient exhibits: Forgetful Visual impairment, Wears glasses Education Provided: Review of s/s that need [...] require immediate medication attention (s/s of acute [place], palpitations, ect...), Notify [facility] of new or worsening symptoms, Other: RESPIRATORY [...] fine- RECEIVES MEALS ON WHEELS- Appetite: Good-per patient- Frequency of Meals: 2 meals/day GENITOURINARY STATUS: Patient stated he is voiding-unable to tell how much-SHINGLE WEAVER says she has emptied his urinal a few times and it is full. Urine Characteristics: Clear Patient has/uses: Bathroom, Briefs [...] -Pain and BPH-signs and symptoms of UTI's Will return to see patient in 3-4 weeks to follow up PCP, Please refill/renew aspirin-was d/c per pharmacy due to not being filled-he had a stock pile-he is not taking his mideications everyday- /es/ HONORIO FERNANDES RN Signed: 08/27/2024 14:34 Receipt Acknowledged By: 08/28/2024 15:37 /es/ LYSSA CARTER APRN ADVANCED PRACTICE REGISTERED NURSE, [facility] 08/30/2024 ADDENDUM STATUS: COMPLETED Caregiver called and requesting bed side table- /es/ HONORIO FERNANDES RN Signed: 08/30/2024 15:57 Receipt Acknowledged By: * AWAITING SIGNATURE * DAYNE DUMONT,HONORIO GRAJEDA-[place] [facility]
--- OUTSIDE RECORDS SUMMARY | 2024-08-29 09:40 | XMS_ITS ---
Author Name [facility] [place] Address [address] [place] [address] Care Team Providers Care Conservation Engineer Name Role Phone LYSSA CARTER Primary [...] PART A Jul 17, 2000 PART A [id number] JESSICA ALVAREZ PATIENT MEDICARE (WNR) MEDICARE (M) PART B Jul 17, 2000 PART B [id number] 00A [phone] [id number] JESSICA ALVAREZ PATIENT MEDICARE (WNR) MEDICARE (M) PART A Jul 17, 2000 PART A [id number] JESSICA ALVAREZ PATIENT MEDICARE (WNR) MEDICARE (M) PART B Jul 17, 2000 PART B [id number] JESSICA ALVAREZ PATIENT Selected Encounter This section includes the information on record at [place] for the Encounter. 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 Current Smoking Status This section includes the most current smoking, or tobacco-related health factor, from the [place] facility where the Encounter took place. Date/Time Current Smoking Status Comment Facil ity Oct 18, 2023 11:45 AM [place]-TOBACCO NEVER USED [facility] Tobacco Use History This section includes a history of the smoking, or tobacco-related health factors, that were collected on or before the date of the Encounter. The data comes from the [place] facility where the Encounter took place. Date/Time Smoking Status/Tobacco Use Comment F acility Oct 21, 2022 09:58 AM [place]-TOBACCO NEVER USED [facility] Jul 23, 2021 11:35 AM [place]-TOBACCO NEVER USED [facility] Nov 01, 2001 10:14 AM HF V9 CURRENT NON-SMOKER [facility] Sep 19, 2000 11:13 AM HF V9 CURRENT NON-SMOKER quit 1982 [facility] Advance Directives: All historical and current Section Date Range: From patient's date of to the date document was created. This section includes ALL of a patient's completed or amended [place] Advance and Rescinded Directives. The entries below indicate that a directive exists for the patient, but an actual copy is not included with this document. The data comes from all [place] facilities. Date Advance Directives Provider Source Feb 02, 2021 ADVANCE DIRECTIVE DISCUSSION [facility]ANE DAWKINS [facility] Feb 13, 2020 ADVANCE DIRECTIVE DISCUSSION VANE DAWKINS [facility] Encounter Notes: All associated encounter notes This section contains the clinical notes associated to the Encounter. Date/Time Encounter Note(s) Provider Source August 29, 2024 01:40 PM PHARMACY HOME [facility] NOTE: LOCAL TITLE: [facility] PHARMACY NOTE STANDARD TITLE: PHARMACY HOME [facility] NOTE DATE OF NOTE: AUGUST 29, 2024@13:40 ENTRY DATE: AUGUST 29, 2024@13:40:08 AUTHOR: BOBBI BLACKWELL EXP COSIGNER: URGENCY: STATUS: COMPLETED PMH: 1. Malnutrition 2. Gastro-esophageal reflux disease with esophagitis 3. Chronic orthostatic hypotension 4. Pain of bilateral knee joints 5. Dry eye syndrome 6. Mild cognitive impairment 7. Chronic bronchitis 8. TIA - Transient ischaemic attack 9. Osteopenia 10. Chronic kidney disease stage 3B 11. Benign prostatic hyperplasia 12. Hearing loss 13. Hypertension 14. Gastroesophageal reflux disease 15. Allergic rhinitis 16. Osteoarthritis of knee 17. Constipation (SNOMED CT 68323465) 18. Unspecified Housing or Economic Circumstance 19. Other Nonspecific Abnormal Finding of Lung Field 20. Gross Hematuria 21. 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 Hyperlipidemia (SNOMED CT 25026317) 23. Diverticular Disease and polyp (per colonoscopy 02-22. Path: hyperplastic) 24. Chronic bronchitis 25. Gastroesophageal reflux disease (SNOMED CT 677994934) (s/p H Pylori treatment 06/16) with hiatal hernia (per UGI 04-20) 26. 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 Anxiety disorder (SNOMED CT 974947275) Allergies: LOVASTATIN, BENAZEPRIL VS: SVS - Vital Signs Selected Measurement DT BP TEMP RESP PULSE POx F(C) (L/MIN)(%) 08/27/2024 10:30 130/68 98.2(36.8) 18 66 Immunizations: IM - Immunizations ADMINISTERED Immunization Series Date Facility Reaction Info COVID-19 (MODERNA), MRNA, LNP-S,* 01/12/2024 [facility]* INFLUENZA, HIGH-DOSE, TRIVALENT,* 01/12/2024 [facility] PNEUMOCOCCAL CONJUGATE PCV20, PO* 03/17/2022 [place]* TD (ADULT), 5 LF TETANUS TOXOID,* 04/08/2023 [facility]* ZOSTER RECOMBINANT 1 02/18/2021 [place]* ZOSTER RECOMBINANT 1 02/05/2021 [place]* Medications: Active and Recently Outpatient Medications (including Supplies): Active Outpatient Medications Status 1) ACETAMINOPHEN 325MG TAB TAKE TWO TABLETS BY MOUTH THREE ACTIVE TIMES A DAY FOR PAIN - DO NOT TAKE MORE THAN 12 TABLETS PER DAY 2) AMLODIPINE BESYLATE 5MG TAB TAKE ONE TABLET BY MOUTH DAILY ACTIVE FOR BLOOD PRESSURE/HEART - DO NOT DRINK GRAPEFRUIT JUICE WHILE ON THIS DRUG 3) ARTIFICIAL TEARS POLYVINYL ALCOHOL PUT 2 DROPS IN EYE(S) ACTIVE DIRECTED NEEDED Indication: FOR DRY EYES 4) ASCORBIC ACID 250MG TAB TAKE ONE TABLET BY MOUTH ON TUESDAY, ACTIVE TUESDAY, TUESDAY, AND TUESDAY Indication: FOR NUTRITION 5) ASPIRIN 325MG EC TAB TAKE ONE TABLET BY MOUTH DAILY FOR ACTIVE HEART 6) BRIEF,TRANQ MARYBETH OVERNITE S#2114 PULLUP USE 1 BRIEF ACTIVE DIRECTED THREE TIMES A DAY 7) CALCIUM 500MG/VITAMIN D 200 UNT TAB TAKE 1 TABLET BY MOUTH ACTIVE DAILY FOR NUTRITION 8) CETIRIZINE HCL 10MG TAB TAKE ONE-HALF TABLET BY MOUTH DAILY ACTIVE Indication: FOR ALLERGIES 9) DICLOFENAC NA 1% TOP GEL APPLY 2 GRAM STRIP TO AFFECTED AREA ACTIVE EVERY 6 HOURS NEEDED FOR PAIN APPLY TO KNEES 10) FERROUS SULFATE 324MG EC TAB TAKE ONE TABLET BY MOUTH ON ACTIVE TUESDAY, TUESDAY, TUESDAY, AND TUESDAY Indication: FOR IRON SUPPLEMENT 11) FINASTERIDE 5MG TAB TAKE ONE TABLET BY MOUTH DAILY FOR ACTIVE PROSTATE - HAZARDOUS HANDLING ALERT 12) FLUTICASONE PROP 50MCG 120D NASAL INHL USE 2 SPRAYS IN EACH ACTIVE NOSTRIL AT BEDTIME FOR NASAL ALLERGY 13) MELOXICAM 7.5MG TAB TAKE ONE TABLET BY MOUTH DAILY -TAKE ACTIVE WITH FOOD OR MILK Indication: FOR PAIN OR INFLAMMATION 14) MENTHOL/M-SALICYLATE 16-30% TOP CREAM APPLY TO AFFECTED AREA ACTIVE THREE TIMES A DAY NEEDED FOR LOCAL PAIN. APPLY TO KNEES 15) NUTRITION SUPL ENSURE PLUS/VANILLA LIQ TAKE 1 CAN BY MOUTH ACTIVE THREE TIMES A DAY Indication: FOR NUTRITION 16) OMEPRAZOLE 20MG EC CAP TAKE TWO CAPSULES BY MOUTH TWICE A ACTIVE DAY FOR STOMACH. TAKE ON AN EMPTY STOMACH 30 MINUTES BEFORE A MEAL 17) ROSUVASTATIN CA 10MG TAB TAKE ONE-HALF TABLET BY MOUTH AT ACTIVE BEDTIME FOR CHOLESTEROL 18) SENNOSIDES 8.6MG TAB TAKE THREE TABLETS BY MOUTH DAILY FOR ACTIVE CONSTIPATION 19) UNDERPAD,BED [id number] TRANQUILITY-2710 USE UNDERPAD ACTIVE DIRECTED NEEDED Inactive Outpatient Medications Status 1) AMOXICILLIN 875/CLAV K 125MG TAB TAKE 1 TABLET BY MOUTH TWICE A DAY Indication: FOR BRONCHITIS 2) BRIEF,TRANQ MARYBETH OVER[place] M#2115 PULLUP USE 1 BRIEF DIRECTED THREE TIMES A DAY FOR INCONTINENCE 3) DILTIAZEM (EQV-TIAZAC) 360MG 24HR CAP TAKE ONE CAPSULE BY MOUTH DAILY FOR BLOOD PRESSURE/HEART - DO NOT DRINK GRAPEFRUIT JUICE WHILE ON THIS DRUG 4) PSYLLIUM ORAL PWD MIX 1 TEASPOONFUL (5ML) IN 8 OZ GLASS OF WATER AND TAKE BY MOUTH DAILY FOR CONSTIPATION 5) TAMSULOSIN HCL 0.4MG CAP TAKE TWO CAPSULES BY MOUTH EVERY EVENING FOR PROSTATE Active Non-VA Medications Status 1) Non-VA MENTHOL 2% GEL,TOP SMALL AMOUNT AFFECTED AREA DAILY ACTIVE NEEDED 2) Non-VA QUNOL CAP/TAB 1 CAP/TAB MOUTH DAILY ACTIVE Indication: supplement Labs: PANEL 1 Jimmie. date GLUCOSE BUN CREAT SODIUM K CHLOR CO2 06/07/24 12:00 119 H 12 1.15 142 3.5 110 H 23 PANEL 2 Jimmie. date TOT PRO ALBUMIN SGOT SGPT Z ALK PHZ DIRECTZ TOTAL 06/07/24 12:00 6.5 3.7 12 <8 59 0.2 0.5 CBC/PLT, BLOOD - Partial Panel found WBC , BLOOD, 06/07/24@1200 3.9 LK/cmm (5.0 - 10.0) RBC, BLOOD, 06/07/24@1200 4.21 LM/cmm (4.6 - 6.2) HGB, BLOOD, 06/07/24@1200 11.7 Lg/dL (14.0 - 18.0) HCT, BLOOD, 06/07/24@1200 33.6 L% (42.0 - 52.0) MCV, BLOOD, 06/07/24@1200 79.8 LfL (80.0 - 94.0) MCH, BLOOD, 06/07/24@1200 27.8 pg (27.0 - 31.0) MCHC, BLOOD, 06/07/24@1200 34.8 g/dL (32.0 - 36.0) RDW, BLOOD, 06/07/24@1200 14.9 % (11.0 - 16.0) PLT, BLOOD, 06/07/24@1200 230 K/cmm (150 - 450) MPV, BLOOD, 06/07/24@1200 10.2 fL (9.0 - 13.1) NRBC, BLOOD, 06/07/24@1200 0.0 % (0.0 - 0.0) Lipid Prof - NONE FOUND Z GLYCOHEMOGLOBIN (HPLC) - NONE FOUND TSH: ____ B-12/FOLATE: Collection DT Specimen Test Name Result Units Ref Range 03/06/2019 10:32 PLASMA!! B12 VITAMIN >2000 H pg/mL 213 - 816 IRON: 60 ug/dL L (06/08/2024 10:52) IRON SATURATION: 37 % (06/08/2024 10:52) TIBC: 163 mg/dL L (06/08/2024 10:52) FERRITIN: 232.6 ng/mL (06/08/2024 10:52) Vitamin D: Collection DT Specimen Test Name Result Units Ref Range 06/07/2024 12:00 SERUM !! 25-OH VITAMIN D 30.0 ng/mL 20.0 - 50.0 Estimated CrCl: 35 ml/min (ABW) Lipid Goal: moderate-dose statin (TIA) - met BP Goal: <150/90 - met Medication Outcomes VA meds: APAP 650mg TID: pain AMLODIPINE BESYLATE 5MG TAB DAILY: HTN Artificial tears 1 gtt OU QID PRN: dry eyes ASCORBIC ACID 250MG TAB M/W/F W/ IRON: ANEMIA (NEW) ASA EC 325mg daily: TIA Ladarius/Vitamin D 500/200mg daily: supplement Cetirizine 5mg daily: AR DICLOFENAC NA 1% TOP GEL Q6 HOURS NEEDED FOR KNEE PAIN Diltiazem SA 360mg daily: HTN (EXP) FERROUS SULFATE 324MG EC TAB M/W/F W/ ASCORBIC ACID: ANEMIA (NEW) Finasteride 5mg daily: BPH Fluticasone NS 2 sprays IEN HS: allergies MELOXICAM 7.5MG TAB DAILY FOR PAIN OR INFLAMMATION (NEW) Menthol/m-salicylate cream UD: OA pain/knees NUTRITION SUPL ENSURE PLUS/VANILLA LIQ TID: NUTRITION (NEW) Omeprazole EC 40mg BID: GERD Psyllium pwdr 5ml in water daily: constipation (EXP) Rosuvastatin 5mg QHS: HLD Sennosides 8.6mg 3 tabs daily: constipation Tamsulosin 0.8mg qPM: BPH (EXP) NonVA meds: Menthol 2% gel sm amt AA daily prn: knee pain Qunol Advanced [place] 3 krill and Fish Oil Complex daily: supplement *TIA: pt is on high dose ASA 325mg daily for secondary prevention and has been taking since at least 2000. Unsure if TIAs occurred on lower dose ASA. No Neuro notes to review. *Finasteride and tamsulosin for BPH: cont per previous Urology notes *High dose omeprazole EC 40mg BID. Previously followed by GI for esophagitis and dysphagia. Continue per their notes. *Therapeutic duplication: fluticasone NS and cetirizine. Consider trial off cetirizine. New therapies/medication changes since last Pharmacy review: - AMOXICILLIN 875/CLAV K 125MG TAB TAKE 1 TABLET BY MOUTH TWICE A DAY 06/13 X7D FOR possible PNA (previously had nonVA hospitalization and cont symptoms) - IRON/VIT C ADDED 06/10 - MELOXICAM ADDED 06/13 - ENSURE PLUS ADDED *Date Presenting to the Facility: Jul Hospital: [facility] Chief complaint: INCONTINENT Discharged FROM ED *Date Presenting to the Facility: Jul Hospital: [facility] Chief complaint: DIFFICULTIES WITH CATHETER Discharged FROM ED w/ levofloxacin 750mg daily x10d Plan/recommendations: 1. HTN: BP at goal last check on amlodipine 5mg daily, diltiazem SA 360mg daily. Pt likely taking non-dihydropyridine CCB for renal protection in CKD (MARISA to ACEi). Recommend to renew Diltiazem SA and trial off dihydropyridine CCB amlodipine. Can use alternative antihypertensive if needed for BP lowering. 2. Anemia: Iron sat >20% and ferritin >100. OK to d/c iron/vit C after Rx complete. Likely anemia of chronic disease/CKD. 3. New PIM: - meloxicam (NSAID): risk of YAMINI w/ CKD, GI bleed Medications were reviewed by Pharm.D. for therapeutic indications as well as appropriate dosing for renal function when current labs available and not enrolled in hospice care. Continue to review quarterly. Time Spent Reviewing Chart: 25 min PBM PharmD Pharmacotherapy Rem V12: Medication monitoring or diagnostic evaluation (e.g., other labs, EKG) Medication reconciliation (changes to active VA and non-VA medication lists to reconcile differences) Changes to medication lists made Add or renew medication /marlon/ Bobbi Blackwell Pharm.D. Clinical Pharmacist - ANDRÉS Signed: 08/29/2024 14:11 Receipt Acknowledged By: 08/29/2024 14:34 /es/ HONORIO FERNANDES RN 08/29/2024 14:44 /es/ LYSSA CARTER APRN ADVANCED PRACTICE REGISTERED NURSE, BOBBI ONEAL-CDD [facility]
--- OUTSIDE RECORDS SUMMARY | 2024-09-03 10:49 | XMS_ITS | Encounter Summary ---
Author Name [facility] [place] Address [address] [place] [address] Care Team Providers Care Oriental Rug Repairer Name Role Phone LYSSA CARTER Primary Care [...] PART A Jul 17, 2000 PART A [id number] JESSICA ALVAREZ PATIENT MEDICARE (WNR) MEDICARE (M) PART B Jul 17, 2000 PART B [id number] JESSICA ALVAREZ PATIENT MEDICARE (WNR) MEDICARE (M) PART A Jul 17, 2000 PART A [id number] JESSICA ALVAREZ PATIENT MEDICARE (WNR) MEDICARE (M) PART B Jul 17, 2000 PART B [id number] JESSICA ALVAREZ PATIENT Selected Encounter This section includes the information on record at [place] for the Encounter. Date/Time Encounter Type Encounter Description Reason Pro vider Source September 03, 2024 02:49 PM Outpatient Encounter TELEPHONE [facility] Encounter Template Text not used by [place] Social History: Smoking Status (Most current) and Tobacco Use (All prior to encounter date) This section includes the most current, and the historical, smoking and tobacco- related health factors from the [place] facility where the Encounter took place. Current Smoking Status This section includes the most current smoking, or tobacco-related health factor, from the [place] facility where the Encounter took place. Date/Time Current Smoking Status Comment Cheo stephen Jun 23, 2020 10:13 AM [place]-TOBACCO NEVER USED [facility] Tobacco Use History This section includes a history of the smoking, or tobacco-related health factors, that were collected on or before the date of the Encounter. The data comes from the [place] facility where the Encounter took place. Date/Time Smoking Status/Tobacco Use Comment Bryce acility Sep 20, 2018 07:00 AM [place]-TOBACCO FORMER USER [facility] Sep 20, 2018 07:00 AM VA-TOBACCO QUIT 15 YRS OR MORE [facility] Nov 14, 2017 08:51 AM V9 QUIT TOBACCO >7 YEARS AGO [facility] Aug 05, 2016 12:16 PM V9 LIFETIME NON-USER OF TOBACCO [facility] Jan 23, 2015 11:12 AM V9 QUIT TOBACCO >7 YEARS AGO [facility] Jan 23, 2014 01:32 PM V9 QUIT TOBACCO >7 YEARS AGO [facility] Nov 22, 2012 10:17 AM V9 QUIT TOBACCO >7 YEARS AGO [facility] Nov 22, 2012 10:17 AM V9 TOBACCO OFFERED [facility] Sep 27, 2011 09:30 AM V9 QUIT TOBACCO >7 YEARS AGO [facility] September 10, 2010 11:15 AM V9 QUIT TOBACCO >7 YEARS AGO [facility] Nov 11, 2009 02:16 PM V9 QUIT TOBACCO >7 YEARS AGO [facility] Nov 11, 2009 02:16 PM V9 TOBACCO OFFERED [facility] Jul 07, 2006 06:55 AM V9 QUIT TOBACCO >7 YEARS AGO [facility] Jul 07, 2006 06:55 AM V9 TOBACCO OFFERED [facility] Jul 07, 2005 11:32 AM HF V9 CURRENT NON-SMOKER [facility] Jan 16, 2004 12:08 PM HF V9 LIFETIME NON-SMOKER [facility] Jan 14, 2003 12:13 PM HF V9 CURRENT NON-SMOKER [facility] Advance Directives: All historical and current Section Date Range: From patient's date of to the date document was created. This section includes ALL of a patient's completed or amended [place] Advance and Rescinded Directives. The entries below indicate that a directive exists for the patient, but an actual copy is not included with this document. The data comes from all [place] facilities. Date Advance Directives Provider Source Feb 02, 2021 ADVANCE DIRECTIVE DISCUSSION VANE DAWKINS [facility] Feb 13, 2020 ADVANCE DIRECTIVE DISCUSSION VANE DAWKINS [facility] Encounter Notes: All associated encounter notes This section contains the clinical notes associated to the Encounter. Date/Time Encounter Note(s) Provider Source September 03, 2024 02:49 PM TELEPHONE ENCOUNTE R NOTE: LOCAL TITLE: [facility] TELEPHONE NOTE STANDARD TITLE: TELEPHONE ENCOUNTER NOTE DATE OF NOTE: SEPTEMBER 03, 2024@14:49 ENTRY DATE: SEPTEMBER 03, 2024@14:49:15 AUTHOR: DAYNE DUMONT EXP COSIGNER: URGENCY: STATUS: COMPLETED Time spent on phone call: 4 minutes Briefly spoke with 's daughter Jesus to discuss findings from recent [facility] PT home visit. Daughter currently at work and not able to talk at the moment. Plan is to call again tomorrow around [phone] as she should be on break. Will attempt to complete phone call at this time however this time does conflict with IDT staffing. /marlon/ DAYNE DUMONT PT, DPT PHYSICAL THERAPIST, [facility] Signed: 09/03/2024 14:51 DAYNE DUMONTTWO [facility]
--- OUTSIDE RECORDS SUMMARY | 2024-09-04 05:00 | XMS_ITS | Encounter Summary ---
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 Date/Time Encounter Type Encounter Description Reason Pro vider Source September 04, 2024 09:00 AM Outpatient Encounter [facility] - PHYSICIAN IHE Encounter Template Text not used by [place] Social History: Smoking Status (Most current) and Tobacco Use (All prior to encounter date) This section includes the most current, and the historical, smoking and tobacco- related health factors from the [place] facility where the Encounter took place. Current Smoking Status This section includes the most current smoking, or tobacco-related health factor, from the [place] facility where the Encounter took place. Date/Time Current Smoking Status Comment Cheo stephen Jun 23, 2020 10:13 AM VA-TOBACCO NEVER USED [facility] Tobacco Use History This section includes a history of the smoking, or tobacco-related health factors, that were collected on or before the date of the Encounter. The data comes from the [place] facility where the Encounter took place. Date/Time Smoking Status/Tobacco Use Comment Bryce acility Sep 20, 2018 07:00 AM VA-TOBACCO FORMER USER [facility] Sep 20, 2018 07:00 AM VA-TOBACCO QUIT 15 YRS OR MORE [facility] Nov 14, 2017 08:51 AM V9 QUIT TOBACCO >7 YEARS AGO [facility] Aug 05, 2016 12:16 PM V9 LIFETIME NON-USER OF TOBACCO [facility] Jan 23, 2015 11:12 AM V9 QUIT TOBACCO >7 YEARS AGO [facility] Jan 23, 2014 01:32 PM V9 QUIT TOBACCO >7 YEARS AGO [facility] Nov 22, 2012 10:17 AM V9 QUIT TOBACCO >7 YEARS AGO [facility] Nov 22, 2012 10:17 AM V9 TOBACCO OFFERED [facility] Sep 27, 2011 09:30 AM V9 QUIT TOBACCO >7 YEARS AGO [facility] September 10, 2010 11:15 AM V9 QUIT TOBACCO >7 YEARS AGO [facility] Nov 11, 2009 02:16 PM V9 QUIT TOBACCO >7 YEARS AGO [facility] Nov 11, 2009 02:16 PM V9 TOBACCO OFFERED [facility] Jul 07, 2006 06:55 AM V9 QUIT TOBACCO >7 YEARS AGO [facility] Jul 07, 2006 06:55 AM V9 TOBACCO OFFERED [facility] Jul 07, 2005 11:32 AM HF V9 CURRENT NON-SMOKER [facility] Jan 16, 2004 12:08 PM HF V9 LIFETIME NON-SMOKER [facility] Jan 14, 2003 12:13 PM HF V9 CURRENT NON-SMOKER [facility] Advance Directives: All historical and current Section Date Range: From patient's date of to the date document was created. This section includes ALL of a patient's completed or amended [place] Advance and Rescinded Directives. The entries below indicate that a directive exists for the patient, but an actual copy is not included with this document. The data comes from all [place] facilities. Date Advance Directives Provider Source Feb 02, 2021 ADVANCE DIRECTIVE DISCUSSION VANE DAWKINS [facility] Feb 13, 2020 ADVANCE DIRECTIVE DISCUSSION VANE DAWKINS [facility] Encounter Notes: All associated encounter notes This section contains the clinical notes associated to the Encounter. Date/Time Encounter Note(s) Provider Source September 04, 2024 09:00 AM HOME HEALTH INTERDISCIPLINARY NOTE: LOCAL TITLE: [facility] INTERDISCIPLINARY PLAN OF CARE STANDARD TITLE: HOME HEALTH INTERDISCIPLINARY NOTE DATE OF NOTE: SEPTEMBER 04, 2024@09:00 ENTRY DATE: SEPTEMBER 04, 2024@15:22:42 AUTHOR: RAMÓN SIMON COSIGNER: LYSSA CARTER URGENCY: STATUS: COMPLETED Home Based Primary Care Interdisciplinary Treatment Plan Admission Date: 01/30/20 Period to cover: 09/04/24-12/02/24 Allergies: LOVASTATIN Diet Recommendation: Regular Activity level: ad renetta Mobility: -BED MOBILITY: Sit <> Supine: with bed rail -TRANSFERS: Sit <> Stand: with UE's, difficulty from low heights. Uses grab bar to stand from commode -GAIT: indoors without AD, reaches and holds onto objects, unsafe. Owns SPC, SW, rollator. Doesn't use any consistently. Uses Pam scooter outside of home, it needs repairs. Instructed to always ambulate with rollator. Functional limitations: impaired memory and forgetful, poor-fair standing balance, LBP, knee pain, bilateral LE weakness, decreased bilateral shoulder flexion AROM ADL deficits: increased time to complete. Toileting: difficulty standing from commode, wears brief. Bathing: assist, performed seated on tub bench Prosthetics/equipment/device s: rollator, Pride Pam scooter, scooter cover, handheld urinal, SW, SPC, x1 wall mounted and x1 floor mounted grab bar near commode, x1 grab bar in shower, handheld shower head, plastic tub transfer bench. hospital bed with half rails and high density memory foam mattress, trapeze bar (removed), overbed table, Guardian alert plus. BP cuff, medicine planners x 2, Cubii Go. Not viewed Hurrycane, heating pad. On 20 August ordered long handle shoe horn, Home[employer] 2 H raised toilet seat with lid Living arrangements: lives alone Mental Status - Behavioral concerns: none Patient safety concerns: lives alone brush head maker/children's aide/InHome Respite program-yes Emergency Preparedness Priority Code: 2-moderate Prognosis: fair Code: Full PROBLEM: Hypertension GOALS: Intermediate goal discussed with the - Blood pressure readings will be no higher than 150/90-chronic will manage until discharge. TARGET DATE FOR GOAL: Within the next quarter, unless otherwise specified. STATUS-BP at goal-cont to monitor medication compliance-cont to prefill mediplanners- INTERVENTIONS: Monitor blood pressure, pulse, respiration every visit. RN Reinforce education on signs/symptoms of high blood pressure and to report them as needed- RN Monitor medication use every visit. RN Reinforce Recommended Diet. RN /RD PROBLEM: MEDICATION ADHERENCE/MANAGEMENT GOALS: [place] stated goal I will take my medicines everyday for the next three months Intermediate goal discussed with the - Will take medications with 90 - 100% accuracy as evidenced by one or more of the following: med-minder use, caregiver interview, medication list, ordering pattern, [facility] observation. Chronic will manage until discharge- TARGET DATE FOR GOAL: Within the next quarter unless otherwise specified. STATUS: [facility] RN cont to prefill medicines for patient-compliance is much better since he has two new caregivers that help remind him to take them- RN INTERVENTIONS: [facility] RN to prefill mediplanners-RN Monitor medication adherence every visit. RN Educate /caregiver on how to reorder medications. RN Provide education on medication regimen, purpose, and side effects at initial assessment, when medications changed, and as needed. RN Provide /caregiver with current medication list and reconcile medications with each visit. RN PROBLEM: Care Management for VA purposes for patients with [facility] Patient's care needs will be coordinated within several agencies Chronic will manage until discharge- TARGET DATE FOR GOAL: Within the next quarter, unless otherwise specified STATUS: has DYE TANK TENDER services through [facility]-patient is very happy- RN INTERVENTIONS: Patient followed by Home Health Agency: this info is found on the consult for home health Agency: [facility] for DYE TANK TENDER/HM program- Monitor services provided by Home Health Agency . RN Monitor for need for any equipment, supplies or specialty services provided by [facility]. RN Coordination of information between the Home Health Agency and [facility] PACT. RN PROBLEM: BPH Intermediate goal discussed with the : No urinary infections- chronic will manage until discharge TARGET DATE FOR GOAL: Within the next quarter, unless otherwise specified. STATUS:Had one ED visit to local hospital-unable to void-f/c was placed-he was treated for a UTU-f/c out and he has no complaints since it was removed. RN Interventions: Monitor for alteration in urination - RN Monitor for S/S of UTI - architectural sales consultant work as ordered - RN PVR as ordered ? RN Monitor hydration & nutrition 4 h youth development specialist PROBLEM: Advance directives/life planning GOAL: Pt will verbalize above concerns and work toward resolution STATUS: met and continued--see providers AD discussions Advance Directive?No Living Will?No Durable Power of Expansion Joint Finisher for Health Care? No; [place] states that his daughter, Jesus Burnham ([phone]) is HCS/NOK, but does not have documentation. (-[facility]) INTERVENTIONS: Provide education and ongoing review of Advance Directives ? SW Assist patient in completion of new Advance Directive if desired- SW PROBLEM: Long-term Care Planning Goal: or decision maker will make wishes known regarding long-term care plans. Status: wishes to remain in home independently as long as able. He is hopeful his daughter would provide additional care if needed but understands that [facility] or other out-of-home placement would be needed if daughter unable to assist. (-[employer]S ADJUST[employer] [facility]PER[employer]) INTERVENTIONS: Assist [place] and caregiver/medical decision maker in discussing life plans in relation to needs and available supports/services. SW Provide options of care and assist with any placement issues. SW HEALTH MAINTENANCE PROBLEM: POTENTIAL FOR FALL AND INJURY GOALS: 1. [place] will have #1 no more than one fall per calendar month, #2 no falls with bone fracture, #3 no falls with a brain bleed and #4 no falls resulting in an emergency department visit. DATE FOR GOAL: Within the next 90 days, unless otherwise specified. STATUS: Goal Met. No falls reported this quarter. PT EDUCATION: - Home visit 15 August 2024: emphasized constant use of rollator for ambulation and functional mobility within the home due to LE weakness and impaired balance. Ordered ETS to increase safety standing from commode ------- Frequency of [facility] home visits: [facility] home or VVC visit frequency placed on subsequent care plans: PROVIDER: : Provider visit frequencies will take into consideration the 's goals of care and preferences. will have a comprehensive provider evaluation annually. Additional provider visits will be conducted as clinically indicated and driven by quarterly IDT meetings or by changes that would require provider [id number] visit. RN: Every 4-6 weeks and 3 additional visits as needed in the quarter for medication management, post hospitalization assessment, symptom management, collection of labs and patient/caregiver education. SW: Visits every 4-6 months, sooner if needed, for crisis management, caregiver stress, housing issues, establishment of advance directives, financial issues, VA benefits, counseling, and transportation. PT: Comprehensive in-home environmental and functional assessment previous quarter. 1 follow up within 4 weeks to educate and discuss findings and safety concerns with Sandy's daughter. Up to 3 follow up visits (face to face, VVC, telephone) this quarter as clinically indicated for any of the following: change in functional status or safety, post fall evaluation and education; evaluate equipment needs and educate and/or caregiver on safe use. RD: RD will complete a nutrition visit every 6-12 months (VVC, telephone, in person). 3 additional visits in the quarter may be completed (V[facility], telephone, in person) as needed for assessment and treatment of any of the following: Nutrition education/counseling, identifying and intervening on significant drug-nutrient interactions and drug-nutrient depletions, assessing ability to prepare recommended meals or administer enteral feeding, identifying food insecurity, performing in home swallow evaluations, identifying and reassessing malnutrition/effectiveness of oral nutrition supplements. Psychologist: Not currently followed, [facility] Psychology remains available for visits/consultation as needed or upon request of team or [place]. Members Present: Gutsavo Somers, PT; Casi Louis SW; Jessica Beasley PsyD for Donavan Carpenter PsyD; Clau Simon covering for Jana Bernal RN, Cathryn Carter GRADUATE STUDENT, Rosamaria Oh Nurse Sr. Director Product Management, Bobbi Cortes Pharm D, Denice Pennington RD, LD Target date for review of plan of care: 11/27/24 /marlon/ Ramón Simon RN fish hatchery assistant Signed: 09/04/2024 15:23 /es/ LYSSA CARTER APRN ADVANCED PRACTICE REGISTERED NURSE, [facility] Cosigned: 09/04/2024 16:09 Receipt Acknowledged By: 09/05/2024 07:42 /marlon/ Bobbi Blackwell, Pharm.D. Clinical Pharmacist - [facility] 09/04/2024 15:37 /es/ Denice Pennington RD, LD Clinical Dietitian 09/04/2024 15:55 /es/ JESSICA BEASLEY PSYCHOLOGIST 09/04/2024 15:51 /es/ TEMITOPE SHERIDAN PHYSICIAN 09/05/2024 08:33 /es/ Rosamaria Oh, MSN, RN, CNL [facility] Livestock Buyer/Nurse Sr. Director Product Management 09/04/2024 15:36 /es/ [facility] 09/05/2024 08:12 /es/ GUSTAVO SOMERS, PT, DPT PHYSICAL THERAPIST, [facility] 09/04/2024 15:37 /es/ RAMÓN ALF[facility]O [facility]
--- OUTSIDE RECORDS SUMMARY | 2024-09-04 05:17 | XMS_ITS | Encounter Summary ---
Author Name [facility] [place] [facility] [place] [facility] [place] Address [address] [place] [address] Care Team Providers Care Cage Clerk Name Role Phone LYSSA CARTER Primary Care [...] Member ID Insurance Provider's Telephone Number Policy Lfor's Name Patient's Relationship to Policy Flor MEDICARE (WNR) MEDICARE (M) PART A Jul 17, 2000 PART A [id number] JESSICA ALVAREZ PATIENT MEDICARE (WNR) MEDICARE (M) PART B Jul 17, 2000 PART B [id number] JESSICA ALVAREZ PATIENT MEDICARE (WNR) MEDICARE (M) PART A Jul 17, 2000 PART A [id number] JESSICA ALVAREZ PATIENT MEDICARE (WNR) MEDICARE (M) PART B Jul 17, 2000 PART B [id number] JESSICA ALVAREZ PATIENT Selected Encounter This section includes the information on record at [place] for the Encounter. Date/Time Encounter Type Encounter Description Reason Provider Source September 04, 2024 09:17 AM Outpatient Encounter [facility] - PHYSICIAN ICD-10-CM I10 Essential (primary) hypertension ROSEANNE DOAN Encounter Template Text not used by [place] Assessments - Encounter Diagnoses This section includes the primary and secondary diagnoses documented for the Encounter. Date/Time Primary/Secondary Diagnosis Diagnosis Name Provider Source September 04, 2024 09:18 AM PRIMARY Essential (primary) hypertension ROSEANNE DOAN [facility] September 04, 2024 09:18 AM SECONDARY Benign prostatic hyperplasia with lower urinary tract symp ROSEANNE DOAN [facility] September 04, 2024 09:18 AM SECONDARY Mild cognitive impairment of uncertain or unknown etiology ROSEANNE DOAN [facility] September 04, 2024 09:18 AM SECONDARY Nutritional deficiency, unspecified ROSEANNE DOAN [facility] September 04, 2024 09:18 AM SECONDARY Pain in left knee ROSEANNE DOAN [facility] September 04, 2024 09:18 AM SECONDARY Pain in unspecified knee AGUSTÍNROSEANNE [facility] Social History: Smoking Status (Most current) and Tobacco Use (All prior to encounter date) This section includes the most current, and the historical, smoking and tobacco- related health factors from the [place] facility where the Encounter took place. Current Smoking Status This section includes the most current smoking, or tobacco-related health factor, from the [place] facility where the Encounter took place. Date/Time Current Smoking Status Comment Cheo stephen Jun 23, 2020 10:13 AM VA-TOBACCO NEVER USED [facility] Tobacco Use History This section includes a history of the smoking, or tobacco-related health factors, that were collected on or before the date of the Encounter. The data comes from the [place] facility where the Encounter took place. Date/Time Smoking Status/Tobacco Use Comment Bryce bauman Sep 20, 2018 07:00 AM VA-TOBACCO FORMER USER [facility] Sep 20, 2018 07:00 AM VA-TOBACCO QUIT 15 YRS OR MORE [facility] Nov 14, 2017 08:51 AM V9 QUIT TOBACCO >7 YEARS AGO [facility] Aug 05, 2016 12:16 PM V9 LIFETIME NON-USER OF TOBACCO [facility] Jan 23, 2015 11:12 AM V9 QUIT TOBACCO >7 YEARS AGO [facility] Jan 23, 2014 01:32 PM V9 QUIT TOBACCO >7 YEARS AGO [facility] Nov 22, 2012 10:17 AM V9 QUIT TOBACCO >7 YEARS AGO [facility] Nov 22, 2012 10:17 AM V9 TOBACCO OFFERED [facility] Sep 27, 2011 09:30 AM V9 QUIT TOBACCO >7 YEARS AGO [facility] September 10, 2010 11:15 AM V9 QUIT TOBACCO >7 YEARS AGO [facility] Nov 11, 2009 02:16 PM V9 QUIT TOBACCO >7 YEARS AGO [facility] Nov 11, 2009 02:16 PM V9 TOBACCO OFFERED [facility] Jul 07, 2006 06:55 AM V9 QUIT TOBACCO >7 YEARS AGO [facility] Jul 07, 2006 06:55 AM V9 TOBACCO OFFERED [facility] Jul 07, 2005 11:32 AM HF V9 CURRENT NON-SMOKER [facility] Jan 16, 2004 12:08 PM HF V9 LIFETIME NON-SMOKER [facility] Jan 14, 2003 12:13 PM HF V9 CURRENT NON-SMOKER [facility] Advance Directives: All historical and current Section Date Range: From patient's date of to the date document was created. This section includes ALL of a patient's completed or amended [place] Advance and Rescinded Directives. The entries below indicate that a directive exists for the patient, but an actual copy is not included with this document. The data comes from all [place] facilities. Date Advance Directives Provider Source Feb 02, 2021 [facility] Feb 13, 2020 ADVANCE DIRECTIVE DISCUSSION VANE DAWKINS [facility] Encounter Notes: All associated encounter notes This section contains the clinical notes associated to the Encounter. Date/Time Encounter Note(s) Provider Source September 04, 2024 09:17 AM [facility] ATTENDING NOT E: LOCAL TITLE: [facility] ATTENDING NOTE STANDARD TITLE: [facility] ATTENDING NOTE DATE OF NOTE: SEPTEMBER 04, 2024@09:17 ENTRY DATE: SEPTEMBER 04, 2024@:17:29 AUTHOR: ROSEANNE DOAN: URGENCY: STATUS: COMPLETED I have attended this quarterly Interdisciplinary Team Meeting, reviewed the chart including the medication list, and participated in the discussion and supervised the care planning of this patient. Medical surrogates: Refused to complete an AD, his daughter is NOK Living situation: home, with daughter assisting. Diet recommendations: liberalized / regular, easy to chew Weight: weigh tloss, meet malnutrition criteria Activity & functional level: uses a cane, scooter outside Needs assistance in: none; performs bathing seated Falls this quarter: none ED visits/Hospitalizations this quarter: one ED visit at [facility] Memory & Mood status: mild cognitive impairment and anxiety, stable ASSESSMENT & PLAN: Essential Hypertension - BP goals met and stable BPH - currently stable with persistent frequency, no UTIs Bilateral Knee Osteoarthritis with Chr Pain - stable and improved malnutrition - RD visit wiht addition of education/ supplements; will monitor mild cognitive impairment - stable with assists Code Status: Full Code Last LSTD Date:02/01/2020 Care Plan details are in the [facility] Interdisciplinary Plan of Care Note. Estimated time (minutes) spent in preparations, discussions and care plan review: / Roseanne Doan D.O. [facility] Attending Signed: 09/04/2024 09:21 [facility]
--- OUTSIDE RECORDS SUMMARY | 2024-09-04 07:54 | XMS_ITS | Encounter Summary ---
Author Name [facility] Address [address] [place] [address] Care Team Providers Care Interactive Marketing Strategist Name Role Phone LYSSA CARTER Primary Care [...] Member ID Insurance Provider's Telephone Number Policy Folr's Name Patient's Relationship to Policy Flor MEDICARE (WNR) MEDICARE (M) PART A Jul 17, 2000 PART A [id number] JESSICA ALVAREZ PATIENT MEDICARE (WNR) MEDICARE (M) PART B Jul 17, 2000 PART B [id number] JESSICA ALVAREZ PATIENT MEDICARE (WNR) MEDICARE (M) PART A Jul 17, 2000 PART A [id number] JESSICA ALVAREZ PATIENT MEDICARE (WNR) MEDICARE (M) PART B Jul 17, 2000 PART B [id number] JESSICA ALVAREZ PATIENT Selected Encounter This section includes the information on record at [place] for the Encounter. Date/Time Encounter Type Encounter Description Reason Provider Source September 04, 2024 11:54 AM PH1 ASSMT&MGMT NQHP 21-30 TELEPHONE HBPC ICD-10-CM I10 Essential (primary) hypertension DUMONTCHASITY MALIKA Mcghee IHSeng Encounter Template Text not used by [place] Assessments - Encounter Diagnoses This section includes the primary and secondary diagnoses documented for the Encounter. Date/Time Primary/Secondary Diagnosis Diagnosis Name Provider Source September 04, 2024 11:54 AM PRIMARY Essential (primary) hypertension JEFFRY DUMONT-[facility] September 04, 2024 11:54 AM SECONDARY Transient cerebral ischemic attack, unspecified DUMONTJEFFRY HOLDEN-[facility] Social History: Smoking Status (Most current) and Tobacco Use (All prior to encounter date) This section includes the most current, and the historical, smoking and tobacco- related health factors from the [place] facility where the Encounter took place. Current Smoking Status This section includes the most current smoking, or tobacco-related health factor, from the [place] facility where the Encounter took place. Date/Time Current Smoking Status Comment Cheo ity Oct 18, 2023 11:45 AM [place]-TOBACCO NEVER USED [facility] Tobacco Use History This section includes a history of the smoking, or tobacco-related health factors, that were collected on or before the date of the Encounter. The data comes from the [place] facility where the Encounter took place. Date/Time Smoking Status/Tobacco Use Comment F acility Oct 21, 2022 09:58 AM [place]-TOBACCO NEVER USED [facility] Jul 23, 2021 11:35 AM [place]-TOBACCO NEVER USED [facility] Nov 01, 2001 10:14 AM HF V9 CURRENT NON-SMOKER [facility] Sep 19, 2000 11:13 AM HF V9 CURRENT NON-SMOKER quit 1982 [facility] Advance Directives: All historical and current Section Date Range: From patient's date of to the date document was created. This section includes ALL of a patient's completed or amended [place] Advance and Rescinded Directives. The entries below indicate that a directive exists for the patient, but an actual copy is not included with this document. The data comes from all [place] facilities. Date Advance Directives Provider Source Feb 02, 2021 ADVANCE DIRECTIVE DISCUSSION VANE DAWKINS[facility] Feb 13, 2020 ADVANCE DIRECTIVE DISCUSSION VANE DAWKINS [facility] Encounter Notes: All associated encounter notes This section contains the clinical notes associated to the Encounter. Date/Time Encounter Note(s) Provider Source September 04, 2024 11:54 AM TELEPHONE ENCOUNTE R NOTE: LOCAL TITLE: [facility] TELEPHONE NOTE STANDARD TITLE: TELEPHONE ENCOUNTER NOTE DATE OF NOTE: SEPTEMBER 04, 2024@11:54 ENTRY DATE: SEPTEMBER 04, 2024@11:54:52 AUTHOR: DAYNE DUMONT COSIGNER: URGENCY: STATUS: COMPLETED Time spent on phone call: 22 minutes SUBJECTIVE: spoke to Daughter Jesus. She has concerns about driving the scooter on the street to gas station or store. Has safety concerns about him possibly getting hurt or something happening. She went to Vet's house the other day and saw him driving away on his scooter by himself. She followed him there and asked him to turn around and go home. Vet did not. He did call her later in day to let her know he was back home. would like to have more help or supervision. The aid Ainsley helps during the day but only through the week. Trying to think of ways for Vet to have some supervision in evenings. have thought about having son, , move closer to and maybe be his caregiver. OBJECTIVE: TODAYS INTERVENTIONS Education: 1. Elevated toilet seat: 2 height, ordered to increase safety with transfers on/off commode 2. Long handle shoe horn: ordered 3. Bedside table: ordered 4. Gait training with Rollator: Educated on safe and proper use, instructed to use with all ambulation indoors. 5. Guardian Alert: use and wear in case of emergency 6. Advised to have call more frequently during day to provide status and safety ASSESSMENT: Discussed findings and interventions provided during recent annual home safety assessment. 2 H ETS ordered, and received, to increase efficiency and safety with toileting and transfers on/off commode. Vet with poor standing balance, gait training with rollator provided. Instructed Vet to use rollator for all ambulation within his apartment to decrease risk of falls. Reaching and holding onto furnishings not safe. Also discussed concerns about Rock driving his scooter to local store or gas station by himself. Recommend Rock to have supervision with mobility with scooter outside of home however this is not consistently available. Advised Vet to use his fall alert device in case of emergency. Also recommended to daughter she could ask to call more frequently throughout the day to inform her of his status, well being and overall safety. PLAN: Comprehensive in-home environmental and functional assessment every 6-12 months. Up to 3 follow up visits (face to face, [facility], telephone) this quarter as clinically indicated for any of the following: change in functional status or safety, post fall evaluation and education; evaluate equipment needs and educate and/or caregiver on safe use. /marlon/ DAYNE DUMONT PT, DPT PHYSICAL THERAPIST, [facility] Signed: 09/06/2024 13:20 DAYNE DUMONT-[facility]
--- OUTSIDE RECORDS SUMMARY | 2024-09-18 10:00 | XMS_ITS ---
Author Name [facility] [place] Organization [facility] [place] [place] Address [address] [place] [address] Care Team Providers Care Saw Maker Name Role Phone LYSSA CARTER Primary Care [...] PART A Jul 17, 2000 PART A [id number] JESSICA ALVAREZ PATIENT MEDICARE (WNR) MEDICARE (M) PART B Jul 17, 2000 PART B [id number] JESSICA ALVAREZ PATIENT MEDICARE (WNR) MEDICARE (M) PART A Jul 17, 2000 PART A [id number] JESSICA ALVAREZ PATIENT MEDICARE (WNR) MEDICARE (M) PART B Jul 17, 2000 PART B [id number] [phone] [id number] JESSICA ALVAREZ PATIENT Selected Encounter This section includes the information on record at [place] for the Encounter. Date/Time Encounter Type Encounter Description Reason Provider Source Sep 18, 2024 02:00 PM HHS/HOSPICE OF RN EA 15 MIN [facility] Nursing (RN / LP) ICD-10-CM K59.00 Constipation, unspecified HONORIO FERNANDES [facility] Encounter Template Text not used by [place] Assessments - Encounter Diagnoses This section includes the primary and secondary diagnoses documented for the Encounter. Date/Time Primary/Secondary Diagnosis Diagnosis Name Provider Source Sep 18, 2024 05:21 PM PRIMARY Constipation, unspecified HONORIO FERNANDES [place] Sep 18, 2024 05:21 PM SECONDARY Benign prostatic hyperplasia with lower urinary tract symp HONORIO FERNANDES [facility] Social History: Smoking Status (Most current) and Tobacco Use (All prior to encounter date) This section includes the most current, and the historical, smoking and tobacco- related health factors from the [place] facility where the Encounter took place. Current Smoking Status This section includes the most current smoking, or tobacco-related health factor, from the [place] facility where the Encounter took place. Date/Time Current Smoking Status Comment Cheo stephen Oct 18, 2023 11:45 AM [place]-TOBACCO NEVER USED [facility] Tobacco Use History This section includes a history of the smoking, or tobacco-related health factors, that were collected on or before the date of the Encounter. The data comes from the [place] facility where the Encounter took place. Date/Time Smoking Status/Tobacco Use Comment F acelissa Oct 21, 2022 09:58 AM [place]-TOBACCO NEVER USED [facility] Jul 23, 2021 11:35 AM [place]-TOBACCO NEVER USED [place] Nov 01, 2001 10:14 AM HF V9 CURRENT NON-SMOKER [place] Sep 19, 2000 11:13 AM HF V9 CURRENT NON-SMOKER quit 1982 [facility] Advance Directives: All historical and current Section Date Range: From patient's date of to the date document was created. This section includes ALL of a patient's completed or amended [place] Advance and Rescinded Directives. The entries below indicate that a directive exists for the patient, but an actual copy is not included with this document. The data comes from all [place] facilities. Date Advance Directives Provider Source Feb 02, 2021 ADVANCE DIRECTIVE DISCUSSION VANOLI,VANE [facility] Feb 13, 2020 ADVANCE DIRECTIVE DISCUSSION VANE DAWKINS [facility] Encounter Notes: All associated encounter notes This section contains the clinical notes associated to the Encounter. Date/Time Encounter Note(s) Provider Source Sep 25, 2024 05:29 PM ADDENDUM: LOCAL TITLE: Addendum STANDARD TITLE: ADDENDUM DATE OF NOTE: SEP 25, 2024@17:29:33 ENTRY DATE: SEP 25, 2024@17:29:34 AUTHOR: HONORIO FERNANDES EXP COSIGNER: URGENCY: STATUS: COMPLETED SURVEY TECHNICIAN called and stated patient needs to more urinals-he has lost one of them and the other one he has needs to be replaced- /marlon/ HONORIO FERNANDES RN Signed: 09/25/2024 17:30 Receipt Acknowledged By: 09/26/2024 07:36 /marlon/ DAYNE DUMONT, PT, DPT PHYSICAL THERAPIST, [facility] --- Original Document --- 09/18/24 [facility] FOCUSED NURSING NOTE: Length of home visit: 45 min Patient name: JESSICA ALVAREZ Patient : Jul Date/Time of Visit: Vital Signs: Wt: WEIGHT: No values within 24 hours BP: BLOOD PRESSURE: Measurement DT BP 09/18/2024 14:00 120/68 Pulse: PULSE: Measurement DT PULSE 09/18/2024 14:00 62 Pulse Ox: Resp: RESPIRATIONS: Measurement DT RESP 09/18/2024 14:00 16 Pain: PAIN SCORE: Measurement DT PAIN 09/18/2024 14:00 0 Temp: 97.8 F [36.6 C] (09/18/2024 14:00) Reason for visit: Post ED visit and add meds to mediplanners- Do you have any pain now? No Falls: Assist Devices: motorized scooter/cane/rollator Have you fallen since the last [facility] nurse visit? No If yes, date of fall: Other: Medications: Active and Recently Outpatient Medications (including Supplies): Active Outpatient Medications Status = 1) ACETAMINOPHEN 325MG TAB TAKE TWO TABLETS [...] DIRECTED NEEDED Indication: FOR DRY EYES 4) ASPIRIN 325MG EC TAB TAKE ONE TABLET BY MOUTH DAILY FOR ACTIVE HEART 5) BRIEF,TRANQ MARYBETH OVERNITE L#2116 PULLUP USE 1 BRIEF ACTIVE DIRECTED THREE TIMES A DAY 6) BRIEF,TRANQ MARYBETH OVERNITE S#2114 PULLUP USE [...] NEEDED FOR PAIN APPLY TO KNEES 10) FINASTERIDE 5MG TAB TAKE ONE TABLET BY MOUTH DAILY FOR ACTIVE PROSTATE - HAZARDOUS HANDLING ALERT 11) FLUTICASONE PROP 50MCG 120D NASAL INHL USE 2 SPRAYS IN EACH ACTIVE NOSTRIL AT BEDTIME FOR NASAL ALLERGY 12) MELOXICAM 7.5MG TAB TAKE ONE TABLET BY MOUTH DAILY -TAKE ACTIVE WITH FOOD OR MILK Indication: FOR PAIN OR INFLAMMATION 13) MENTHOL/M-SALICYLATE 16-30% TOP CREAM APPLY TO AFFECTED AREA ACTIVE (S) THREE TIMES A DAY NEEDED FOR LOCAL PAIN. APPLY TO KNEES 14) NUTRITION SUPL ENSURE PLUS/VANILLA LIQ TAKE 1 CAN BY MOUTH ACTIVE (S) THREE TIMES A DAY Indication: FOR NUTRITION 15) OMEPRAZOLE 20MG EC CAP TAKE TWO CAPSULES BY MOUTH TWICE A ACTIVE DAY FOR STOMACH. TAKE ON AN EMPTY STOMACH 30 MINUTES BEFORE A MEAL 16) ROSUVASTATIN CA 10MG TAB TAKE ONE-HALF TABLET BY MOUTH AT ACTIVE BEDTIME FOR CHOLESTEROL 17) SENNOSIDES 8.6MG TAB TAKE THREE TABLETS BY MOUTH DAILY FOR ACTIVE CONSTIPATION 18) UNDERPAD,BED [id number] TRANQUILITY-2710 USE UNDERPAD ACTIVE (S) DIRECTED NEEDED Inactive Outpatient Medications Status = 1) AMOXICILLIN 875/CLAV K 125MG TAB TAKE 1 TABLET BY MOUTH TWICE A DAY Indication: FOR BRONCHITIS 2) ASCORBIC ACID 250MG TAB TAKE ONE TABLET BY MOUTH ON TUESDAY, TUESDAY, TUESDAY, AND TUESDAY Indication: FOR NUTRITION 3) BRIEF,TRANQ MARYBETH OVERNITE M#2115 PULLUP USE 1 BRIEF DIRECTED THREE TIMES A DAY FOR INCONTINENCE 4) DILTIAZEM (EQV-TIAZAC) 360MG 24HR CAP TAKE ONE CAPSULE BY MOUTH DAILY FOR BLOOD PRESSURE/HEART - DO NOT DRINK GRAPEFRUIT JUICE WHILE ON THIS DRUG 5) FERROUS SULFATE 324MG EC TAB TAKE ONE TABLET BY MOUTH ON TUESDAY, TUESDAY, TUESDAY, AND TUESDAY Indication: FOR IRON SUPPLEMENT 6) PSYLLIUM ORAL PWD MIX 1 TEASPOONFUL (5ML) IN 8 OZ GLASS OF WATER AND TAKE BY MOUTH DAILY FOR CONSTIPATION 7) TAMSULOSIN HCL 0.4MG CAP TAKE TWO CAPSULES BY MOUTH EVERY EVENING FOR PROSTATE Active Non-VA Medications Status = 1) Non-VA MENTHOL 2% GEL,TOP SMALL AMOUNT AFFECTED AREA DAILY ACTIVE NEEDED 2) Non-VA QUNOL CAP/TAB 1 CAP/TAB MOUTH DAILY ACTIVE Indication: supplement 27 Total Medications Are you taking any new medication (non-VA, over the counter, herbal medications) since the last [facility] visit? No Additional information: Patient went to ED on 09/17 after no havng a BM for three days ans was uncomfortable-no chnages were made to his medications. He is taking his senna everyday and his psyllium powder- Reports no issues with urination. SURVEY TECHNICIAN and neighbor thought he had been having some shortness of breath but he denied any issues-pulse 0x was 96 %-lungs clear-HR dipped down to 62-[id number]-[id number] it was 63and reg at the end of the visit-he stated he felt good- SURVEY TECHNICIAN also reports that his legs and ankles were swollen earlier in the week- had trace amt in both legs at today's visit. Needs the following renewed Vit C Iron Diltiazem Tamsulosin /es/ HONORIO FERNANDES RN Signed: 09/18/2024 17:21 Receipt Acknowledged By: 09/19/2024 07:41 /marlon/ LYSSA CARTER APRN ADVANCED PRACTICE REGISTERED NURSE, [facility] HONORIO FERNANDES-[facility] Sep 18, 2024 05:20 PM NURSING NOTE: LOCAL TITLE: [facility] FOCUSED NURSING NOTE STANDARD TITLE: NURSING NOTE DATE OF NOTE: SEP 18, 2024@17:20 ENTRY DATE: SEP 18, 2024@17:20:30 AUTHOR: HONORIO FERNANDES EXP COSIGNER: URGENCY: STATUS: COMPLETED [facility] FOCUSED NURSING NOTE Has ADDENDA Length of home visit: 45 min Patient name: JESSICA ALVAREZ Patient : Jul Date/Time of Visit: Vital Signs: Wt: WEIGHT: No values within 24 hours BP: BLOOD PRESSURE: Measurement DT BP 09/18/2024 14:00 120/68 Pulse: PULSE: Measurement DT PULSE 09/18/2024 14:00 62 Pulse Ox: Resp: RESPIRATIONS: Measurement DT RESP 09/18/2024 14:00 16 Pain: PAIN SCORE: Measurement DT PAIN 09/18/2024 14:00 0 Temp: 97.8 F [36.6 C] (09/18/2024 14:00) Reason for visit: Post ED visit and add meds to mediplanners- Do you have any pain now? No Falls: Assist Devices: motorized scooter/cane/rollator Have you fallen since the last [facility] nurse visit? No If yes, date of fall: Other: Medications: Active and Recently Outpatient Medications (including Supplies): Active Outpatient Medications Status = 1) ACETAMINOPHEN 325MG TAB TAKE TWO TABLETS [...] DIRECTED NEEDED Indication: FOR DRY EYES 4) ASPIRIN 325MG EC TAB TAKE ONE TABLET BY MOUTH DAILY FOR ACTIVE HEART 5) BRIEF,TRANQ MARYBETH OVERNITE L#2116 PULLUP USE 1 BRIEF ACTIVE DIRECTED THREE TIMES A DAY 6) BRIEF,TRANQ MARYBETH OVERNITE S#2114 PULLUP USE [...] NEEDED FOR PAIN APPLY TO KNEES 10) FINASTERIDE 5MG TAB TAKE ONE TABLET BY MOUTH DAILY FOR ACTIVE PROSTATE - HAZARDOUS HANDLING ALERT 11) FLUTICASONE PROP 50MCG 120D NASAL INHL USE 2 SPRAYS IN EACH ACTIVE NOSTRIL AT BEDTIME FOR NASAL ALLERGY 12) MELOXICAM 7.5MG TAB TAKE ONE TABLET BY MOUTH DAILY -TAKE ACTIVE WITH FOOD OR MILK Indication: FOR PAIN OR INFLAMMATION 13) MENTHOL/M-SALICYLATE 16-30% TOP CREAM APPLY TO AFFECTED AREA ACTIVE (S) THREE TIMES A DAY NEEDED FOR LOCAL PAIN. APPLY TO KNEES 14) NUTRITION SUPL ENSURE PLUS/VANILLA LIQ TAKE 1 CAN BY MOUTH ACTIVE (S) THREE TIMES A DAY Indication: FOR NUTRITION 15) OMEPRAZOLE 20MG EC CAP TAKE TWO CAPSULES BY MOUTH TWICE A ACTIVE DAY FOR STOMACH. TAKE ON AN EMPTY STOMACH 30 MINUTES BEFORE A MEAL 16) ROSUVASTATIN CA 10MG TAB TAKE ONE-HALF TABLET BY MOUTH AT ACTIVE BEDTIME FOR CHOLESTEROL 17) SENNOSIDES 8.6MG TAB TAKE THREE TABLETS BY MOUTH DAILY FOR ACTIVE CONSTIPATION 18) UNDERPAD,BED [id number] TRANQUILITY-2710 USE UNDERPAD ACTIVE (S) DIRECTED NEEDED Inactive Outpatient Medications Status = 1) AMOXICILLIN 875/CLAV K 125MG TAB TAKE 1 TABLET BY MOUTH TWICE A DAY Indication: FOR BRONCHITIS 2) ASCORBIC ACID 250MG TAB TAKE ONE TABLET BY MOUTH ON TUESDAY, TUESDAY, TUESDAY, AND TUESDAY Indication: FOR NUTRITION 3) BRIEF,TRANQ MARYBETH OVERNITE M#2115 PULLUP USE 1 BRIEF DIRECTED THREE TIMES A DAY FOR INCONTINENCE 4) DILTIAZEM (EQV-TIAZAC) 360MG 24HR CAP TAKE ONE CAPSULE BY MOUTH DAILY FOR BLOOD PRESSURE/HEART - DO NOT DRINK GRAPEFRUIT JUICE WHILE ON THIS DRUG 5) FERROUS SULFATE 324MG EC TAB TAKE ONE TABLET BY MOUTH ON TUESDAY, TUESDAY, TUESDAY, AND TUESDAY Indication: FOR IRON SUPPLEMENT 6) PSYLLIUM ORAL PWD MIX 1 TEASPOONFUL (5ML) IN 8 OZ GLASS OF WATER AND TAKE BY MOUTH DAILY FOR CONSTIPATION 7) TAMSULOSIN HCL 0.4MG CAP TAKE TWO CAPSULES BY MOUTH EVERY EVENING FOR PROSTATE Active Non-VA Medications Status = 1) Non-VA MENTHOL 2% GEL,TOP SMALL AMOUNT AFFECTED AREA DAILY ACTIVE NEEDED 2) Non-VA QUNOL CAP/TAB 1 CAP/TAB MOUTH DAILY ACTIVE Indication: supplement 27 Total Medications Are you taking any new medication (non-VA, over the counter, herbal medications) since the last [facility] visit? No Additional information: Patient went to ED on 09/17 after no havng a BM for three days ans was uncomfortable-no chnages were made to his medications. He is taking his senna everyday and his psyllium powder- Reports no issues with urination. SURVEY TECHNICIAN and neighbor thought he had been having some shortness of breath but he denied any issues-pulse 0x was 96 %-lungs clear-HR dipped down to 90-cvhcpwg-owfjjxx it was 63and reg at the end of the visit-he stated he felt good- SURVEY TECHNICIAN also reports that his legs and ankles were swollen earlier in the week- had trace amt in both legs at today's visit. Needs the following renewed Vit C Iron Diltiazem Tamsulosin /marlon/ HONORIO FERNANDES RN Signed: 09/18/2024 17:21 Receipt Acknowledged By: 09/19/2024 07:41 /marlon/ LYSSA CARTER APRN ADVANCED PRACTICE REGISTERED NURSE, [facility] 09/25/2024 ADDENDUM STATUS: COMPLETED SURVEY TECHNICIAN called and stated patient needs to more urinals-he has lost one of them and the other one he has needs to be replaced- /marlon/ HONORIO FERNANDES RN Signed: 09/25/2024 17:30 Receipt Acknowledged By: * AWAITING SIGNATURE * DAYNE DUMONT EDITH F [facility]
--- OUTSIDE RECORDS SUMMARY | 2024-09-19 07:10 | XMS_ITS | Encounter Summary ---
Author Name [facility] [place] Organization [place] Address [address] [place] [address] Care Team Providers Care Mogul Operator Name Role Phone LYSSA CARTER Primary Care [...] PART A Jul 17, 2000 PART A [id number] [phone] JSESICA ALVAREZ PATIENT MEDICARE (WNR) MEDICARE (M) PART B Jul 17, 2000 PART B [id number] JESSICA ALVAREZ PATIENT MEDICARE (WNR) MEDICARE (M) PART A Jul 17, 2000 PART A [id number] [phone] JESSICA ALVAREZ PATIENT MEDICARE (WNR) MEDICARE (M) PART B Jul 17, 2000 PART B [id number] JESSICA ALVAREZ PATIENT Selected Encounter This section includes the information on record at [place] for the Encounter. Date/Time Encounter Type Encounter Description Reason Pro vider Source Sep 19, 2024 11:10 AM Outpatient Encounter ADMIN PAT ACTIVTIES (MASNONCT) IHE Encounter Template Text not used by [place] Social History: Smoking Status (Most current) and Tobacco Use (All prior to encounter date) This section includes the most current, and the historical, smoking and tobacco- related health factors from the [place] facility where the Encounter took place. Current Smoking Status This section includes the most current smoking, or tobacco-related health factor, from the [place] facility where the Encounter took place. Date/Time Current Smoking Status Comment Facil ity Oct 18, 2023 11:45 AM [place]-TOBAC[place] NEVER USED [facility] Tobacco Use History This section includes a history of the smoking, or tobacco-related health factors, that were collected on or before the date of the Encounter. The data comes from the [place] facility where the Encounter took place. Date/Time Smoking Status/Tobacco Use Comment F acility Oct 21, 2022 09:58 AM [place]-TOBACCO NEVER USED [facility] Jul 23, 2021 11:35 AM [place] [facility] [...] ALL of a patient's completed or amended [place] Advance and Rescinded Directives. The entries below indicate that a directive exists for the patient, but an actual copy is not included with this document. The data comes from all [place] facilities. Date Advance Directives Provider Source Feb 02, 2021 [facility] Feb 13, 2020 ADVANCE DIRECTIVE DISCUSSION VANE DAWKINS [facility] Encounter Notes: All associated encounter notes This section contains the clinical notes associated to the Encounter. Date/Time Encounter Note(s) Provider Source Sep 17, 2024 10:00 AM NONVA NOTE: LOCAL TITLE: [facility] CARE COORD PLAN STANDARD TITLE: NONVA NOTE DATE OF NOTE: SEP 17, 2024@10:00 ENTRY DATE: SEP 19, 2024@11:10:27 AUTHOR: RANDA POSADA EXP COSIGNER: URGENCY: STATUS: COMPLETED Emergency Notification Intake Date Presenting to the Facility: Sep Date of note has been modified to reflect Date of Service. Reason for modification: HOSPITAL NOTIFICATION DATE/TIME: 09/17/2024 1006 EDT Method of Contact: Notified from ECR worklist Notification ID: [id number] HS [facility] Name: [facility] Address: City: [place] State: [place] Zip Code: Phone : Community Facility Point of Contact: Name: STEPHANIE COSTELLO Phone: [phone] Chief complaint: CONSTIPATION Primary Diagnosis: Disposition Discharged FROM ED Handoff to PACT/PCP [facility] was informed this was seen for emergent care. Records requested for upload and review: Pursuant to 38 CFR 17.4020(c)Authorized emergency treatments. Handoff to PACT/PCP for follow up/care coordination as deemed appropriate by the PACT/PCP. /marlon/ Randa Posada MSN, wire technician Nurse Coordinator Signed: 09/19/2024 11:12 Receipt Acknowledged By: 09/19/2024 13:33 /marlon/ LYSSA CARTER APRN ADVANCED PRACTICE REGISTERED NURSE, [facility]
--- OUTSIDE RECORDS SUMMARY | 2024-09-20 06:00 | XMS_ITS ---
ME MED NUTRITION INDIV SUBSEQ [place] Encounter Summary Created on: October 26, 2024 ANTONIO JESSICA : 1935 Sex: Male Author Name [facility] Address [address] [place] [address] Care Team Providers Care Pilot Safety Inspector Name Role Phone LYSSA CARTER Primary [...] PART A Jul 17, 2000 PART A [id number] JESSICA ALVAREZ PATIENT MEDICARE (WNR) MEDICARE (M) PART B Jul 17, 2000 PART B [id number] [phone] JESSICA ALVAREZ PATIENT MEDICARE (WNR) MEDICARE (M) PART A Jul 17, 2000 PART A [id number] JESSICA ALVAREZ PATIENT MEDICARE (WNR) MEDICARE (M) PART B Jul 17, 2000 PART B [id number] JESSICA ALVAREZ PATIENT Selected Encounter This section includes the information on record at ME for the Encounter. Date/Time Encounter Type Encounter Description Reason Provider Source Sep 20, 2024 10:00 AM MED NUTRITION INDIV SUBSEQ [facility] - DIETITIAN ICD-10-CM E44.0 Moderate protein-calorie malnutrition CHATA FITZGERALD ANY C IHE Encounter Template Text not used by ME Assessments - Encounter Diagnoses This section includes the primary and secondary diagnoses documented for the Encounter. Date/Time Primary/Secondary Diagnosis Diagnosis Name Provider Source Sep 20, 2024 01:39 PM PRIMARY Moderate protein-calorie malnutrition FITZGERALDJENY Diallo [place] Sep 20, 2024 01:39 PM SECONDARY Dietary counseling and surveillance FITZGERALDJENY PIZANO C [place] Social History: Smoking Status (Most current) and Tobacco Use (All prior to encounter date) This section includes the most current, and the historical, smoking and tobacco- related health factors from the ME facility where the Encounter took place. Current Smoking Status This section includes the most current smoking, or tobacco-related health factor, from the ME facility where the Encounter took place. Date/Time Current Smoking Status Comment Cheo ity Oct 18, 2023 11:45 AM ME-TOBACCO NEVER USED [facility] Tobacco Use History This section includes a history of the smoking, or tobacco-related health factors, that were collected on or before the date of the Encounter. The data comes from the ME facility where the Encounter took place. Date/Time Smoking Status/Tobacco Use Comment F acelissa Oct 21, 2022 09:58 AM ME-TOBACCO NEVER USED [place] Jul 23, 2021 11:35 AM ME-TOBACCO NEVER USED [place] Nov 01, 2001 10:14 AM HF V9 CURRENT NON-SMOKER [place] Sep 19, 2000 11:13 AM HF V9 CURRENT NON-SMOKER quit 1982 [facility] Advance Directives: All historical and current Section Date Range: From patient's date of to the date document was created. This section includes ALL of a patient's completed or amended ME Advance and Rescinded Directives. The entries below indicate that a directive exists for the patient, but an actual copy is not included with this document. The data comes from all [place] facilities. Date Advance Directives Provider Source Feb 02, 2021 ADVANCE DIRECTIVE DISCUSSION [place] Feb 13, 2020 ADVANCE DIRECTIVE DISCUSSION VANE DAWIKNS [facility] Encounter Notes: All associated encounter notes This section contains the clinical notes associated to the Encounter. Date/Time Encounter Note(s) Provider Source Sep 20, 2024 10:00 AM [facility] NOTE: LOCAL TITLE: [facility] NUTRITION INITIAL/ANNUAL/PROGRESS STANDARD TITLE: [facility] NOTE DATE OF NOTE: SEP 20, 2024@10:00 ENTRY DATE: SEP 20, 2024@13:26:34 AUTHOR: DENICE FITZGERALD COSIGNER: URGENCY: STATUS: COMPLETED Two identifiers were verified: Name, Facial recognition Time with Patient: 30 minutes Age: 89 Gender: MALE Reason for visit: follow-up Present at visit: Patient, Neighbor (who cooks for pt), [facility] M[place]: No Service History: Service Branch Service # Entered Discharge [employer] [id number] JAN 07, 1955 JAN 09, 1959 HONORABLE Subjective Client History/Food & Nutrition-Related History: Pt states his appetite is good but has declined in the last day or two. Drinking Ensure. Between neighbor and INDUST[employer]INE[employer] pt getss 3 hot cooked meals/day. Daughter brings over groceries and today had a fully stocked fridge/freezer and pantry. Loves the Ensure. Vision: Wears glasses Hearing: Impaired Mental Status/Orientation: No issues noted on visit Feeding Ability: feeds self Adaptive Feeding Equipment: None Dentition: edentulous Mouth Sores/Pain: No Chewing Problems: Yes, r/t dentition Swallowing Problems: No Ambulation: independent, cane, electric scooter Activity Level: Sedentary Access to groceries/meals: Gets MOW MWF for noon meal. Daughter will bring overfood occasionally - hot meals + groceries. Also has INDUSTRIAL ENGINEER on MWF who cooks and the neighbor also cooks for him. Walks to local [employer] 3 x daily for coffee. Food Allergies/Intolerances: LOVASTATIN, BENAZEPRIL Current Diet: Easy to Chew Oral Nutritional Supplements/OTC Vitamins/Minerals/Herbals/ Bioactive Substances: Ensure 3-4 x daily Appetite: Good per pt Pertinent Medical History: 1. Malnutrition 2. Gastro-esophageal reflux disease with [...] Osteoarthritis of knee 17. Constipation (SNOMED CT 76808296) 18. Unspecified Housing or Economic Circumstance 19. Other Nonspecific Abnormal Finding of Lung Field 20. Gross Hematuria 21. 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 Hyperlipidemia (SNOMED CT 78499712) 23. Diverticular Disease and polyp (per colonoscopy 02-22. Path: hyperplastic) 24. Chronic bronchitis 25. Gastroesophageal reflux disease (SNOMED CT 400173051) (s/p H Pylori treatment 06/16) with hiatal hernia (per UGI 04-20) 26. 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 Anxiety disorder (SNOMED CT 085736674) Pertinent Medications: 1) ACETAMINOPHEN 325MG TAB TAKE TWO TABLETS [...] ONE TABLET BY MOUTH ON TUESDAY, ACTIVE (S) TUESDAY, TUESDAY, AND TUESDAY Indication: FOR NUTRITION 5) ASPIRIN 325MG EC TAB TAKE ONE TABLET BY MOUTH DAILY FOR ACTIVE HEART 6) BRIEF,TRANQ MARYBETH OVERNITE L#2116 PULLUP USE 1 BRIEF ACTIVE DIRECTED THREE TIMES A DAY 7) BRIEF,TRANQ MARYBETH OVER[place] S#2114 PULLUP USE 1 BRIEF ACTIVE DIRECTED THREE TIMES A DAY 8) CALCIUM 500MG/VITAMIN D 200 UNT TAB TAKE 1 TABLET BY MOUTH ACTIVE DAILY FOR NUTRITION 9) CETIRIZINE HCL 10MG TAB TAKE ONE-HALF TABLET BY MOUTH DAILY ACTIVE Indication: FOR ALLERGIES 10) DICLOFENAC NA 1% TOP GEL APPLY 2 GRAM STRIP TO AFFECTED AREA ACTIVE EVERY 6 HOURS NEEDED FOR PAIN APPLY TO KNEES 11) DILTIAZEM (EQV-TIAZAC) 360MG 24HR CAP TAKE ONE CAPSULE BY ACTIVE MOUTH DAILY FOR BLOOD PRESSURE/HEART - DO NOT DRINK GRAPEFRUIT JUICE WHILE ON THIS DRUG 12) FERROUS SULFATE 324MG EC TAB TAKE ONE TABLET BY MOUTH ON ACTIVE (S) TUESDAY, TUESDAY, TUESDAY, AND TUESDAY Indication: FOR IRON SUPPLEMENT 13) FINASTERIDE 5MG TAB TAKE ONE TABLET BY MOUTH DAILY FOR ACTIVE (S) PROSTATE - HAZARDOUS HANDLING ALERT 14) FLUTICASONE PROP 50MCG 120D NASAL INHL USE 2 SPRAYS IN EACH ACTIVE NOSTRIL AT BEDTIME FOR NASAL ALLERGY 15) MELOXICAM 7.5MG TAB TAKE ONE TABLET BY MOUTH DAILY -TAKE ACTIVE WITH FOOD OR MILK Indication: FOR PAIN OR INFLAMMATION 16) MENTHOL/M-SALICYLATE 16-30% TOP CREAM APPLY TO AFFECTED AREA ACTIVE THREE TIMES A DAY NEEDED FOR LOCAL PAIN. APPLY TO KNEES 17) NUTRITION SUPL ENSURE PLUS/VANILLA LIQ TAKE 1 CAN BY MOUTH ACTIVE THREE TIMES A DAY Indication: FOR NUTRITION 18) OMEPRAZOLE 20MG EC CAP TAKE TWO CAPSULES BY MOUTH TWICE A ACTIVE DAY FOR STOMACH. TAKE ON AN EMPTY STOMACH 30 MINUTES BEFORE A MEAL 19) PSYLLIUM ORAL PWD MIX 1 TEASPOONFUL (5ML) IN 8 OZ GLASS OF ACTIVE WATER AND TAKE BY MOUTH DAILY FOR CONSTIPATION 20) ROSUVASTATIN CA 10MG TAB TAKE ONE-HALF TABLET BY MOUTH AT ACTIVE BEDTIME FOR CHOLESTEROL 21) SENNOSIDES 8.6MG TAB TAKE THREE TABLETS BY MOUTH DAILY FOR ACTIVE CONSTIPATION 22) TAMSULOSIN HCL 0.4MG CAP TAKE TWO CAPSULES BY MOUTH EVERY ACTIVE EVENING FOR PROSTATE 23) UNDERPAD,BED [id number] TRANQUILITY-2710 USE UNDERPAD ACTIVE DIRECTED NEEDED Active Non-VA Medications Status 1) Non-VA MENTHOL 2% GEL,TOP SMALL AMOUNT AFFECTED AREA DAILY ACTIVE NEEDED 2) Non-VA QUNOL CAP/TAB 1 CAP/TAB MOUTH DAILY ACTIVE Indication: supplement 25 Total Medications Nutrition Assessment: Measurement DT WEIGHT LB(KG)[BMI] 07/31/2024 10:40 145(65.77)[22] 07/19/2024 09:25 144(65.32)[22] 07/18/2024 15:14 137.6(62.41)[21] 07/06/2024 10:40 148(67.13)[23] 06/20/2024 11:30 148.6(67.40)[23] 12/16/2023 13:00 150(68.04)[23] Height: 68 in [172.7 cm] (02/22/2023 10:06) BODY MASS INDEX - 22.1, Underweight (BMI <23.0) (>65 yr) IBW: 154# +/- 10% UBW: 190# Weight change: Intentional gain of 8 lbs x 2 months. Net loss of 5 lbs x 8 months. Pt refused weighing today. Pertinent Labs: PANEL 1 Jimmie. date GLUCOSE BUN CREAT SODIUM K CHLOR CO2 06/07/24 12:00 119 H 12 1.15 142 3.5 110 H 23 06/09/23 14:30 103 H 25 1.43 H 142 3.6 103 25 Albumin: 3.7 g/dL (06/07/2024 12:00) Ferritin: 232.6 ng/mL (06/08/2024 10:52) Iron: 60 ug/dL L (06/08/2024 10:52) Collection DT Specimen Test Name Result Units Ref 06/07/2024 12:00 PLASMA!! eGFR (CKD-EPI) 61 SEE EVAL Collection DT Specimen Test Name Result Units Ref Range 03/06/2019 10:32 PLASMA!! B12 VITAMIN >2000 H pg/mL 213 - 816 Collection DT Specimen Test Name Result Units Ref Range 06/07/2024 12:00 SERUM !! 25-OH VITAMIN D 30.0 ng/mL 20.0 - 50.0 Labs noted. Pertinent Medical Tests/Procedures: none NUTRITION FOCUSED PHYSICAL FINDINGS: reassessed 09/20/24 Subcutaneous Fat Loss: Orbitals: WNL Cheeks: WNL Triceps: Pt declined palpation but appeared very thin Muscle Mass Loss: Temples: Mild loss Clavicles: Moderate/Severe loss Shoulders: Mild/Moderate loss Scapula: Not assessed Interosseous: Mild loss Thigh: Appeared very thin Calf: Appeared very thin Malnutrition Screening: Based on current clinical assessment, patient meets ASPEN/AND criteria for adult malnutrition as follows: Nonsevere (moderate) malnutrition in the context of chronic illness < 75% of estimated energy requirements for >/= 1 month Clinically significant weight loss over 1, 3, 6, or 12 months Mild muscle mass loss Hand case management associate strength: could not assess d/t cognitive impairment/SLUMS 01/15 *Assessment of Fluid Status/Hydration: Perceived Adequacy of Fluid Intake: Fluid intake appears adequate. Urine: Not visualized Edema/Ascites: none Skin Integrity: Intact Gastrointestinal: No N/V/D. Takes meds for constipation and is having BMs every 2-3 days. 24-HOUR FOOD RECALL/TYPICAL INTAKE PATTERN: Patient receives MOW 3 x weekly. INDUSTRIAL ENGINEER will do some grocery shopping for patient. Daughter, Jesus will also do some grocery shopping for pt and may also have a hot meal delivered to him. Neighbor will cook other meals and bring them over. Pt drinks Ensure 3-4 x daily. Today pt has breakfast bedside - Ham/cheese omelet with toast, pt had barely touched it. States his appetite wasn't great this morning. Pt has been eating sandwiches, eggs, sausage, TV dinners, various pastries/sweets, MOW meals (meat/veg/starch/fruit/milk) , spaghetti/bread, roasted chicken/potatoes/veggies, meatloaf/mashed potatoes. Beverages: Per Day: ~24oz coffee, 24-36oz Ensure Plus, 8oz milk ETOH: None Risk of Foodborne Illness: Severe Food/Drug Interactions: Statin: Does not consume grapefruit/juice ASSESSMENT/NUTRITION PROBLEM ETIOLOGY STATEMENT (PES): NUTRITION PROBLEM: Malnutrition ETIOLOGY: ?Poor appetite, ?advancing cognitive impairment causing pt to forget to eat JEFF/SYMPTOMS: Above noted diet hx, weight trends, malnutrition assessment *09/20/24 update: Improving, gained 8 lbs x 2 months Therapeutic Diet Recommendations: Regular NUTRITION INTERVENTIONS: Nutrition education/counseling: Patient is not appropriate for diet education/counseling. Did review of foods in kitchen, running low on Ensure. RD will reorder. Patient and caregiver expressed understanding of information discussed today. Printed material provided: None/Declined Barriers to learning: Pt with dx of dementia or cognitive impairment Goals: Patient stated goal, will continue with adequate PO intake to maintain desired weight and nutritional status - Met, continue Patient stated goal, Will have no further advancement in severity of malnutrition - Met, continue Patient stated goal, Weight will not decrease below 137 lbs.IBW:154 lbs. - Met, continue Monitor: PO intake of food and fluid PO intake of oral nutritional supplements: Vanilla Ensure Plus TID Weights Follow-up: Provided contact information and encouraged patient and/or caregiver to call when visit desired. [facility] RD will continue to follow with team. Will review chart quarterly during interdisciplinary treatment plan reviews. Will do home visit at least yearly, more often if clinically indicated. Alerts/Referrals: None [place] meets criteria for malnutrition: Chronic Disease Related malnutrition Moderate malnutrition as evidenced by: Weight loss Energy intake <75% for >/= 1 month Muscle mass - mild depletion /es/ Denice Fitzgerald RD, LD Clinical Dietitian Signed: 09/20/2024 13:39 DENICE FITZGERALD-[facility]
--- OUTSIDE RECORDS SUMMARY | 2024-10-12 09:00 | XMS_ITS ---
Author Name [facility] [place] [facility] [place] Address [address] [place] [address] Care Team Providers Care Editorial Manager Name Role Phone LYSSA CARTER Primary Care [...] PART A Jul 17, 2000 PART A [id number] [phone] JESSICA ALVAREZ PATIENT MEDICARE (WNR) MEDICARE (M) PART B Jul 17, 2000 PART B [id number] JESSICA ALVAREZ PATIENT MEDICARE (WNR) MEDICARE (M) PART A Jul 17, 2000 PART A [id number] JESSICA ALVAREZ PATIENT MEDICARE (WNR) MEDICARE (M) PART B Jul 17, 2000 PART B [id number] JESSICA ALVAREZ PATIENT Selected Encounter This section includes the information on record at [place] for the Encounter. Date/Time Encounter Type Encounter Description Reason Provider Source Oct 12, 2024 01:00 PM HHS/HOSPICE OF RN EA 15 MIN [facility] Nursing (RN / LP) ICD-10-CM I10 Essential (primary) hypertension SANNA FERNANDES [facility] Encounter Template Text not used by [place] Assessments - Encounter Diagnoses This section includes the primary and secondary diagnoses documented for the Encounter. Date/Time Primary/Secondary Diagnosis Diagnosis Name Provider Source Oct 12, 2024 05:08 PM PRIMARY Essential (primary) hypertension HONORIO FERNANDES [facility] Oct 12, 2024 05:08 PM SECONDARY Benign prostatic hyperplasia with lower urinary tract symp HONORIO FERNANDES [facility] Social History: Smoking Status (Most current) and Tobacco Use (All prior to encounter date) This section includes the most current, and the historical, smoking and tobacco- related health factors from the [place] facility where the Encounter took place. Current Smoking Status This section includes the most current smoking, or tobacco-related health factor, from the [place] facility where the Encounter took place. Date/Time Current Smoking Status Comment Cheo itjozef Oct 18, 2023 11:45 AM [place]-TOBACCO NEVER USED [facility] Tobacco Use History This section includes a history of the smoking, or tobacco-related health factors, that were collected on or before the date of the Encounter. The data comes from the [place] facility where the Encounter took place. Date/Time Smoking Status/Tobacco Use Comment F acelissa Oct 21, 2022 09:58 AM [place]-TO[place] NEVER USED [place] Jul 23, 2021 11:35 AM [place]-TOBACCO NEVER USED [place] Nov 01, 2001 10:14 AM HF V9 CURRENT NON-SMOKER [place] Sep 19, 2000 11:13 AM HF V9 CURRENT NON-SMOKER quit 1982 [facility] Advance Directives: All historical and current Section Date Range: From patient's date of to the date document was created. This section includes ALL of a patient's completed or amended [place] Advance and Rescinded Directives. The entries below indicate that a directive exists for the patient, but an actual copy is not included with this document. The data comes from all [place] facilities. Date Advance Directives Provider Source Feb 02, 2021 ADVANCE DIRECTIVE DISCUSSION [place] Feb 13, 2020 ADVANCE DIRECTIVE DISCUSSION VANE DAKWINS [facility] Encounter Notes: All associated encounter notes This section contains the clinical notes associated to the Encounter. Date/Time Encounter Note(s) Provider Source Oct 12, 2024 05:11 PM ADDENDUM: LOCAL TITLE: Addendum STANDARD TITLE: ADDENDUM DATE OF NOTE: OCT 12, 2024@17:11:23 ENTRY DATE: OCT 12, 2024@17:11:24 AUTHOR: HONORIO FERNANDES EXP COSIGNER: URGENCY: STATUS: COMPLETED Please renew/refill the following: Omeprazole sennosides Tylenol /es/ HONORIO FERNANDES RN Signed: 10/12/2024 17:12 Receipt Acknowledged By: 10/13/2024 09:59 /es/ LYSSA CARTER APRN ADVANCED PRACTICE REGISTERED NURSE, [facility] --- Original Document --- 10/12/24 [facility] NURSING PROGRESS: [facility] FOLLOW-UP NOTE Date of visit: Sep Time spent with patient: 60 min Date of admission to [facility]: Patient Identified by: Name, Facial Recognition, Known Address Source of Information: Patient What matter most to you in your life right now? Staying in my own home MEDICATIONS: Active Medications: Active Outpatient Medications (including Supplies): ARTIFICIAL TEARS POLYVINYL ALCOHOL PUT 2 DROPS IN EYE(S) ACTIVE DIRECTED NEEDED Indication: FOR DRY EYES ASCORBIC ACID 250MG TAB TAKE ONE TABLET BY MOUTH ON ACTIVE TUESDAY, TUESDAY, TUESDAY, AND TUESDAY Indication: FOR NUTRITION ASPIRIN 325MG EC TAB TAKE ONE TABLET BY MOUTH DAILY FOR ACTIVE HEART BRIEF,TRANQ MARYBETH OVERNITE L#2116 PULLUP USE 1 BRIEF ACTIVE DIRECTED THREE TIMES A DAY BRIEF,TRANQ MARYBETH OVERNITE S#2114 PULLUP USE 1 [...] ACTIVE (S) PROSTATE - HAZARDOUS HANDLING ALERT FLUTICASONE PROP [...] THREE TIMES A DAY Indication: FOR NUTRITION PSYLLIUM ORAL PWD MIX 1 TEASPOONFUL (5ML) IN 8 OZ GLASS OF ACTIVE WATER AND TAKE BY MOUTH DAILY FOR CONSTIPATION ROSUVASTATIN CA 10MG TAB TAKE ONE-HALF TABLET BY MOUTH AT ACTIVE BEDTIME FOR CHOLESTEROL TAMSULOSIN HCL 0.4MG CAP TAKE TWO CAPSULES BY MOUTH EVERY ACTIVE EVENING FOR PROSTATE UNDERPAD,BED [id number] TRANQUILITY-2710 USE UNDERPAD ACTIVE DIRECTED NEEDED Non-VA MENTHOL 2% GEL,TOP SMALL AMOUNT AFFECTED AREA DAILY ACTIVE NEEDED Non-VA QUNOL CAP/TAB 1 CAP/TAB MOUTH DAILY ACTIVE Indication: supplement 21 Total Medications Qedm-czw-rfcqbeh products used by patient: none per patient Medications/OTC/supplements started and/or discontinued since last [facility] visit. per [facility] medication record- Medication list compared with list/medication bottles in the home: No medication discrepancies were identified. Has the patient missed any doses since the last visit?* No Updated medication list was provided for the patient/caregiver: during the visit Education Provided: Education including regimen, indication for use, potential side effects, and interactions provided for the following medications: reviewed use and side effects with patient--he voiced undestanding and agreement- Medication education and updated medication sheet provided to: Patient Patient/caregiver indicated understanding by: Verbalization Medications set up by: Self, [facility] Staff (madi) HOME SAFETY ASSESSMENT: No Unsound structure No Unsafe functional barriers (stairs, etc.) No Unsafe placement of rugs, cords, furniture No Weapons in the home N/A Weapons secured in an area away from the area of care provision No Inadequate Heating/Electricity No Inadequate Cooking Facilities No Inadequate Sleeping Arrangements No Inadequate Ventilation No Inadequate [place] No Unsafe Storage of Supplies/Equipment No Presence of Infestation of Pests Yes Functioning Smoke Alarm Present No Fire Extinguisher Present Yes Fire Exit Plan No Use of Restraints Yes Home is adaptable for Home Care No Smoking materials present in the home N/A Pets secured in an area away from the area of care provision Yes Additional safety concerns: lives alone-fall risk- Temperature: Temperature: 98.2 F (36.8 C) Pulse: Pulse: 70 Respirations: Respirations: 16 Blood Pressure: Blood Pressure: 132/72 Pain: Pain: 99 Orthostatic Blood Pressures: [id number] OXYGEN IN THE HOME: No PAIN EVALUATION: Patient answers NO to Do you have pain? question. NEUROLOGICAL STATUS: No problems noted The patient is currently: Alert, Oriented to person, Oriented to place, Oriented to situation, Follows verbal commands The patient exhibits: Forgetful Hearing loss Visual impairment, Wears glasses Education Provided: Review [...] require immediate medication attention (s/s of acute VT, palpitations, ect...), Notify [facility] of new or [...] stated he is voiding-unable to tell how much-HINGING MACHINE OPERATOR says she has emptied his urinal a [...] in 3-4 weeks to follow up PCP, /marlon/ HONORIO FERNANDES RN Signed: 10/12/2024 17:08 [facility]IO FERNANDES[facility] Oct 12, 2024 04:58 PM [facility] NURSING NOTE: LOCAL TITLE: HB NURSING PROGRESS STANDARD TITLE: HB NURSING NOTE DATE OF NOTE: OCT 12, 2024@16:58 ENTRY DATE: OCT 12, 2024@16:58:11 AUTHOR: HONORIO FERNANDES EXP COSIGNER: URGENCY: STATUS: COMPLETED [facility] NURSING PROGRESS Has ADDENDA HB FOLLOW-UP NOTE Date of visit: Sep Time spent with patient: 60 min Date of admission to [facility]: Patient Identified by: Name, Facial Recognition, Known Address Source of Information: Patient What matter most to you in your life right now? Staying in my own home MEDICATIONS: Active Medications: Active Outpatient Medications (including Supplies): ARTIFICIAL TEARS POLYVINYL ALCOHOL PUT 2 DROPS IN EYE(S) ACTIVE DIRECTED NEEDED Indication: FOR DRY EYES ASCORBIC ACID 250MG TAB TAKE ONE TABLET BY MOUTH ON ACTIVE TUESDAY, TUESDAY, TUESDAY, AND TUESDAY Indication: FOR NUTRITION ASPIRIN 325MG EC TAB TAKE ONE TABLET BY MOUTH DAILY FOR ACTIVE HEART BRIEF,TRANQ MARYBETH OVERNITE L#2116 PULLUP USE 1 BRIEF ACTIVE DIRECTED THREE TIMES A DAY BRIEF,TRANQ MARYBETH OVER[place]ITE S#4 PULLUP USE 1 BRIEF ACTIVE DIRECTED THREE [...] ACTIVE (S) PROSTATE - HAZARDOUS HANDLING ALERT FLUTICASONE PROP [...] THREE TIMES A DAY Indication: FOR NUTRITION PSYLLIUM ORAL PWD MIX 1 TEASPOONFUL (5ML) IN 8 OZ GLASS OF ACTIVE WATER AND TAKE BY MOUTH DAILY FOR CONSTIPATION ROSUVASTATIN CA 10MG TAB TAKE ONE-HALF TABLET BY MOUTH AT ACTIVE BEDTIME FOR CHOLESTEROL TAMSULOSIN HCL 0.4MG CAP TAKE TWO CAPSULES BY MOUTH EVERY ACTIVE EVENING FOR PROSTATE UNDERPAD,BED [id number] TRANQUILITY-2710 USE UNDERPAD ACTIVE DIRECTED NEEDED Non-VA MENTHOL 2% GEL,TOP SMALL AMOUNT AFFECTED AREA DAILY ACTIVE NEEDED Non-VA QUNOL CAP/TAB 1 CAP/TAB MOUTH DAILY ACTIVE Indication: supplement 21 Total Medications Ugxh-few-whtzvco products used by patient: none per patient Medications/OTC/supplements started and/or discontinued since last [facility] visit. per [facility] medication record- Medication list compared with list/medication bottles in the home: No medication discrepancies were identified. Has the patient missed any doses since the last visit?* No Updated medication list was provided for the patient/caregiver: during the visit Education Provided: Education including regimen, indication for use, potential side effects, and interactions provided for the following medications: reviewed use and side effects with patient--he voiced undestanding and agreement- Medication education and updated medication sheet provided to: Patient Patient/caregiver indicated understanding by: Verbalization Medications set up by: Self, [facility] HOME SAFETY ASSESSMENT: No Unsound structure No Unsafe functional barriers (stairs, etc.) No Unsafe placement of rugs, cords, furniture No Weapons in the home N/A Weapons secured in an area away from the area of care provision No Inadequate Heating/Electricity No Inadequate Cooking Facilities No Inadequate Sleeping Arrangements No Inadequate Ventilation No Inadequate [place] No Unsafe Storage of Supplies/Equipment No Presence of Infestation of Pests Yes Functioning Smoke Alarm Present No Fire Extinguisher Present Yes Fire Exit Plan No Use of Restraints Yes Home is adaptable for Home Care No Smoking materials present in the home N/A Pets secured in an area away from the area of care provision Yes Additional safety concerns: lives alone-fall risk- Temperature: Temperature: 98.2 F (36.8 C) Pulse: Pulse: 70 Respirations: Respirations: 16 Blood Pressure: Blood Pressure: 132/72 Pain: Pain: 99 Orthostatic Blood Pressures: [id number] OXYGEN IN THE HOME: No PAIN EVALUATION: Patient answers NO to Do you have pain? question. NEUROLOGICAL STATUS: No problems noted The patient is currently: Alert, Oriented to person, Oriented to place, Oriented to situation, Follows verbal commands The patient exhibits: Forgetful Hearing loss Visual impairment, Wears glasses Education Provided: Review [...] require immediate medication attention (s/s of acute VT, palpitations, ect...), Notify [facility] of new or worsening symptoms, Other: RESPIRATORY [...] stated he is voiding-unable to tell how much-HINGING MACHINE OPERATOR says she has emptied his urinal a [...] in 3-4 weeks to follow up PCP, /marlon/ HONORIO FERNANDES RN Signed: 10/12/2024 17:08 10/12/2024 ADDENDUM STATUS: COMPLETED Please renew/refill the following: Omeprazole sennosides Chelitaenol /marlon/ HONORIO FERNANDES RN Signed: 10/12/2024 17:12 Receipt Acknowledged By: * AWAITING SIGNATURE * LYSSA CARTER,HONORIO GRAJEDA-[place] [facility]
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
--- OUTSIDE RECORDS SUMMARY | 2024-10-26 11:58 | XMS_ITS | Continuity of Care Document ---
Author Name [facility] Organization [facility] Care Team Providers Care Bilingual Interpreter Name Role Phone [facility] Unavailable Unavailable Problems Combined list of problems from Department of Defense and Veterans Affairs facilities. It does not include entries that were removed or entered in error. Problem Status Onset Date Problem Type Date of Resolution Comments Source Allergic rhinitis Active Condition [facility] Anxiety disorder (SNOMED CT 099777757) Active Condition [facility] Benign prostatic hyperplasia Active Condition [facility] Chronic bronchitis Active Condition [facility] Chronic kidney disease stage 3B [facility] Chronic orthostatic hypotension Active Condition [facility] Constipation (SNOMED CT 82279121) Active Condition [facility] Diverticular Disease Active Condition Jul 16, 2002 Entered By: ADAM IBARRA Comment: and polyp (per colonoscopy 02-22. Path: hyperplastic) [facility] Dry eye syndrome Active Condition [place] [facility] Gastro-esophageal reflux disease with esophagitis Active Condition [facility] Gastroesophageal reflux disease Active Condition [facility] Gastroesophageal reflux disease (SNOMED CT 146583841) Active Condition Dec 20, 2000 Entered By: ADAM IBARRA Comment: (s/p H Pylori treatment 06/16)Jul 16, 2002 Entered By: ADAM IBARRA Comment: with hiatal hernia (per UGI 04-20) [facility] Gross Hematuria [facility] Hearing loss Active Condition [facility] Hyperlipidemia (SNOMED CT 28981111) Active Condition [facility] Hypertension Active Condition [facility] Malnutrition Active Condition [facility] Mild cognitive impairment Active Condition [facility] Osteoarthritis (SNOMED CT 949003068) Active Condition May 10, 2001 Entered By: ADAM IBARRA Comment: of thoracic spine with hyperostosis [facility] Osteoarthritis [facility] knee Active Condition [place] Osteopenia Active Condition [place] Other Nonspecific Abnormal Finding of Lung Field (ICD-9-CM 793.19) Active Condition [place] Pain of bilateral knee joints 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 Unspecified Housing or Economic Circumstance Active [facility] Acute bronchitis (ICD-9-CM 466.0) Inactive Condition 07/12/2013 Jul 12 4 Entered By: GOLDIE DAVIS Comment: removed per MD request [facility] Adjustment disorder with mixed emotional features (SNOMED CT 60697503) Inactive Condition 07/04/2020 [place] Constipation Inactive Condition 03/21/2003 [facility] [facility] Gastroesophageal reflux disease Inactive Condition [facility]/14[facility] Hypertension Inactive Condition 11/14/2017 [place] [facility] Hypertrophy (Benign) of Prostate without Urinary obstruction (ICD-9-CM 600.00) Inactive Condition 11/14/2017 [place] [facility] Nocturia * (ICD-9-CM 788.43) Inactive Condition 07/12/2013 Jul 12 14 Entered By: GOLDIE DAVIS Comment: removed per MD request [facility] Other Specified Counseling (ICD-9-CM V65.49) Inactive Condition 01/16/[address] [place] [facility] Simple obesity Inactive Condition 11/14/2017 [facility] Urgency of urination (ICD-9-CM 788.63) Inactive Condition 07/12/2013 Jul 12, 2013 Entered By: GOLDIE DAVIS Comment: removed per MD request [facility] Diagnosis: ICD-10-CM Z65.9 Problem related to unspecified psychosocial circumstances Active Diagnosis [facility] Diagnosis: ICD-10-CM I10 Essential (primary) hypertension Active Diagnosis 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 Diagnosis: ICD-10-CM G45.9 Transient cerebral ischemic attack, unspecified [facility] Diagnosis: ICD-10-CM N40.1 Benign prostatic hyperplasia with lower urinary tract symp Active Diagnosis [facility] Diagnosis: ICD-10-CM Z74.1 Need for assistance with personal care Active Diagnosis [place] Diagnosis: ICD-10-CM G31.84 Mild cognitive impairment of uncertain or unknown etiology [facility] Diagnosis: ICD-10-CM M17.9 Osteoarthritis of knee, unspecified [facility] Diagnosis: ICD-10-CM Z71.3 Dietary counseling and surveillance [facility] Diagnosis: ICD-10-CM Z74.2 Need for assist at home & no house memb able to render care Active Diagnosis [facility] Diagnosis: ICD-10-CM J06.9 Acute upper respiratory infection, unspecified Active Diagnosis [facility] Diagnosis: ICD-10-CM J41.0 Simple chronic bronchitis Active Diagnosis [facility] Diagnosis: ICD-10-CM Z87.898 Personal history of other specified conditions Active Diagnosis [facility] Diagnosis: ICD-10-CM H25.813 Combined forms of age-related cataract, bilateral Active Diagnosis [facility] Diagnosis: ICD-10-CM N18.32 Chronic kidney disease, stage 3b Active Diagnosis [place] [facility] Diagnosis: ICD-10-CM R68.89 Other general symptoms and signs Active [facility] Diagnosis: ICD-10-CM Z65.8 Oth problems related to psychosocial circumstances [facility] Medications Combined list of outpatient medications from Department of Defense and Veterans Affairs facilities.Medications provided include 1) outpatient medications from the last 15 months, and 2) patient-reported medications. Medication Details Route Status Patient Instructions Prescription Expires Prescription Number Last Dispense Date Ordering Provider Order Date Order Qty Source ACETAMINOPH EN 325MG TAB TAKE TWO TABLETS BY MOUTH THREE TIMES A DAY FOR PAIN - DO NOT TAKE MORE THAN 12 TABLETS PER DAY ORAL ACTIVE 10/14/2025 [id number] 5 ZENY CARTER 2024 500 [place] [facility] ACETAMINOPH EN 325MG TAB TAKE TWO TABLETS BY MOUTH THREE TIMES A DAY FOR PAIN - DO NOT TAKE MORE THAN 12 TABLETS PER DAY ORAL DISCONT INUED 09/23/2024 [id number] 5 ZENY CARTER 2023 500 [place] [facility] AMLODIPINE BESYLATE 5MG TAB TAKE ONE TABLET BY MOUTH DAILY FOR BLOOD PRESSURE /HEART - DO NOT DRINK GRAPEFRU IT JUICE WHILE ON THIS DRUG ORAL DISCONT INUED 01/15/2024 [id number] ZENY CARTER 2022 90 [place] [facility] AMLODIPINE BESYLATE 5MG TAB TAKE ONE TABLET BY MOUTH DAILY FOR BLOOD PRESSURE /HEART - DO NOT DRINK GRAPEFRU IT JUICE WHILE ON THIS DRUG ORAL 10/04/2024 [id number] 5 ZENY CARTER 2023 90 [place] [facility] AMOXICILLIN TRIHYDRATE 875MG/CLAVU LANATE K 125MG TAB TAKE 1 TABLET BY MOUTH TWICE A DAY FOR BRONCHIT IS ORAL DISCONT INUED BY PROVIDE R 07/13/2024 [id number] ZENY CARTER 2024 14 [place] [facility] AMOXICILLIN TRIHYDRATE 875MG/CLAVU LANATE K 125MG TAB TAKE 1 TABLET BY MOUTH TWICE A DAY FOR PNEUMONI A ORAL DISCONT INUED BY PROVIDE R 05/27/2024 [id number] ZENY CARTER 2024 10 [place] [facility] ASCORBIC ACID 250MG TAB TAKE ONE TABLET BY MOUTH ON TUESDAY, TUESDAY, , AND TUESDAY FOR NUTRITIO N ORAL ACTIVE 12/18/2024 [id number] 5 ZENY CARTER 2024 100 [place] [facility] ASCORBIC ACID 250MG TAB TAKE ONE TABLET BY MOUTH ON TUESDAY, TUESDAY, , AND TUESDAY FOR NUTRITIO N ORAL DISCONT INUED 09/08/2024 [id number] ZENY CARTER 2024 100 [place] [facility] ASPIRIN 325MG TAB,EC TAKE ONE TABLET BY MOUTH DAILY FOR HEART ORAL ACTIVE 08/29/2025 [id number] 5 ZENY CARTER 2024 90 [place] [facility] ASPIRIN 325MG TAB,EC TAKE ONE TABLET BY MOUTH DAILY FOR HEART ORAL DISCONT INUED 10/19/2024 [id number] 4 ZENY CARTER 2023 90 [place] AZITHROMYCI N 500MG TAB TAKE ONE TABLET BY MOUTH DAILY FOR PNEUMONI A ORAL DISCONT INUED BY PROVIDE R 05/27/2024 [id number] ZENY CARTER 2024 3 [place] [facility] CALCIUM 500MG/VITAM IN D 200UNT TAB TAKE 1 TABLET BY MOUTH DAILY FOR NUTRITIO N ORAL ACTIVE 04/28/2025 [id number] 5 ZENY CARTER 2024 90 [place] [facility] CALCIUM 500MG/VITAM IN D 200UNT TAB TAKE 1 TABLET BY MOUTH DAILY FOR NUTRITIO N ORAL DISCONT INUED 01/15/2024 [id number] 4 ZENY CARTER 2022 90 [place] CARBAMIDE PEROXIDE 6.5%/GLYCER IN SOLN,OTIC INSTILL 2 DROPS IN BOTH EARS TWICE A DAY FOR EAR WAX REMOVAL -ALLOW DROPS TO REMAIN IN EAR FOR AT LEAST 15 MINUTES. FLUSH EAR WITH WARM WATER USING BULB EAR SYRINGE. AURICU LAR (OTIC) 12/07/2023 [id number] ZENY CARTER 2023 15 [place] [facility] CETIRIZINE HCL 10MG TAB TAKE ONE-HALF TABLET BY MOUTH DAILY FOR ALLERGIE S ORAL ACTIVE 03/10/2025 [id number] 5 ZENY CARTER 2023 45 [place] [facility] CETIRIZINE HCL 10MG TAB TAKE ONE-HALF TABLET BY MOUTH DAILY FOR ALLERGIE S ORAL DISCONT INUED 03/01/2024 [id number] 4 ZENY CARTER 2022 45 [place] [facility] DEXTROMETHO RPHAN HBR 10MG/GUAIFE NESIN 100MG/5ML (AF & SF) LIQUID TAKE 5ML BY MOUTH FOUR TIMES A DAY NEEDED FOR COUGH ORAL DISCONT INUED BY PROVIDE R 05/27/2024 [id number] 5 ZENY CARTER 2024 120 [place] [facility] DICLOFENAC NA 1% GEL,TOP APPLY 2 GRAM STRIP TO AFFECTED AREA EVERY 6 HOURS NEEDED FOR PAIN APPLY TO KNEES TOPICA L ACTIVE 07/07/2025 [id number] 5 ZENY CARTER 2024 200 [place] [facility] DICLOFENAC NA 1% GEL,TOP APPLY 2 GRAM STRIP TO AFFECTED AREA EVERY 6 HOURS NEEDED FOR PAIN APPLY TO KNEES TOPICA L DISCONT INUED 02/02/2025 [id number] 4 ZENY CARTER 2023 200 [place] [facility] DICLOFENAC NA 1% GEL,TOP APPLY 2 GRAM STRIP TO AFFECTED AREA EVERY 6 HOURS NEEDED FOR PAIN APPLY TO KNEES TOPICA L DISCONT INUED 06/16/2024 [id number] 4 ZENY CARTER 2023 200 [place] [facility] DILTIAZEM (EQV-TIAZAC AB4) 360MG 24HR CAP TAKE ONE CAPSULE BY MOUTH DAILY FOR BLOOD PRESSURE /HEART - DO NOT DRINK GRAPEFRU IT JUICE WHILE ON THIS DRUG ORAL ACTIVE 09/20/2025 [id number] 5 ZENY CARTER 2024 90 [place] [facility] DILTIAZEM (EQV-TIAZAC AB4) 360MG 24HR CAP TAKE ONE CAPSULE BY MOUTH DAILY FOR BLOOD PRESSURE /HEART - DO NOT DRINK GRAPEFRU IT JUICE WHILE ON THIS DRUG ORAL DISCONT INUED 08/19/2024 [id number] ZENY CARTER 2023 90 [place] [facility] ENSURE PLUS LIQUID VANILLA TAKE 1 CAN BY MOUTH THREE TIMES A DAY FOR NUTRITIO N ORAL ACTIVE 08/01/2025 [id number] Mi FITZGERALD RITTANY C 2024 96 [place] FERROUS SO4 324MG TAB,EC TAKE ONE TABLET BY MOUTH ON TUESDAY, TUESDAY, , AND TUESDAY FOR IRON SUPPLEME NT ORAL ACTIVE 12/18/2024 [id number] 5 ZENY CARTER 2024 100 [place] [facility] FERROUS SO4 324MG TAB,EC TAKE ONE TABLET BY MOUTH ON TUESDAY, TUESDAY, , AND TUESDAY FOR IRON SUPPLEME NT ORAL DISCONT INUED 09/08/2024 [id number] ZENY CARTER 2024 100 [place] [facility] FINASTERIDE 5MG TAB TAKE ONE TABLET BY MOUTH DAILY FOR PROSTATE - HAZARDOU S HANDLING ALERT ORAL SUSPEND ED 12/18/2024 [id number] 5 ZENY CARTER 2024 90 [place] [facility] FINASTERIDE 5MG TAB TAKE ONE TABLET BY MOUTH DAILY FOR PROSTATE - HAZARDOU S HANDLING ALERT ORAL DISCONT INUED 11/14/2024 [id number] 5 ZENY CARTER 2024 90 [place] [facility] [place] FINASTERIDE 5MG TAB TAKE ONE TABLET BY MOUTH DAILY FOR PROSTATE - HAZARDOU S HANDLING ALERT ORAL DISCONT INUED 07/26/2024 [id number] 5 ZENY CARTER 2024 90 [place] FINASTERIDE 5MG TAB TAKE ONE TABLET BY MOUTH DAILY FOR PROSTATE - HAZARDOU S HANDLING ALERT ORAL DISCONT INUED 01/02/2024 [id number] ZENY CARTER 2023 90 [place] FINASTERIDE 5MG TAB TAKE ONE TABLET BY MOUTH DAILY FOR PROSTATE - HAZARDOU S HANDLING ALERT ORAL DISCONT INUED 11/17/2023 [id number] 4 ZENY CARTER 2023 90 [place] [facility] FLUTICASONE PROPIONATE 50MCG/SPRAY SOLN,NASAL, 16GM USE 2 SPRAYS IN EACH NOSTRIL AT BEDTIME FOR NASAL ALLERGY NASAL ACTIVE 07/07/2025 [id number] 5 ZENY CARTER 2024 2 [place] [facility] FLUTICASONE PROPIONATE 50MCG/SPRAY SOLN,NASAL, 16GM USE 2 SPRAYS IN EACH NOSTRIL AT BEDTIME FOR NASAL ALLERGY NASAL DISCONT INUED 04/28/2024 [id number] ZENY CARTER 2023 2 [place] MELOXICAM 7.5MG TAB TAKE ONE TABLET BY MOUTH DAILY FOR PAIN OR INFLAMMA TION -TAKE WITH FOOD OR MILK ORAL ACTIVE 06/14/2025 [id number] ZENY CARTER 2024 90 [place] MENTHOL 2% GEL,TOP APPLY SMALL AMOUNT TO AFFECTED AREA DAILY NEEDED TOPICA L ACTIVE KAUSHAL,LI SA B 2021 [place] [facility] MENTHOL/MET HYL SALICYLATE (16-30%) HIGH CONC. CREAM,TOP APPLY TO AFFECTED AREA THREE TIMES A DAY NEEDED FOR LOCAL PAIN. APPLY TO KNEES TOPICA L ACTIVE 07/07/2025 [id number] 5 ZENY CARTER 2024 85 [place] MENTHOL/MET HYL SALICYLATE (16-30%) HIGH CONC. CREAM,TOP APPLY TO AFFECTED AREA THREE TIMES A DAY NEEDED FOR LOCAL PAIN. APPLY TO KNEES TOPICA L DISCONT INUED 08/24/2024 [id number] 4 ZENY CARTER 2023 85 [place] MICONAZOLE NITRATE 2% CREAM,TOP APPLY SMALL AMOUNT TO AFFECTED AREA TWICE A DAY NEEDED FOR FUNGAL INFECTIO N TOPICA L 02/11/2024 [id number] ZENY CARTER 2022 30 [place] MULTIVITAMI N/MINERALS HERBAL CAP/TAB TAKE 1 CAP/TAB BY MOUTH DAILY ORAL ACTIVE MAVERIKC TAI 2023 [place] OMEPRAZOLE 20MG CAP,EC TAKE TWO CAPSULES BY MOUTH TWICE A DAY FOR STOMACH. TAKE ON AN EMPTY STOMACH 30 MINUTES BEFORE A MEAL ORAL ACTIVE 10/14/2025 [id number] 5 ZENY CARTER 2024 360 [place] OMEPRAZOLE 20MG CAP,EC TAKE TWO CAPSULES BY MOUTH TWICE A DAY FOR STOMACH. TAKE ON AN EMPTY STOMACH 30 MINUTES BEFORE A MEAL ORAL DISCONT INUED 10/04/2024 [id number] 5 ZENY CARTER 2023 360 [place] [facility] OMEPRAZOLE 20MG CAP,EC TAKE TWO CAPSULES BY MOUTH TWICE A DAY FOR STOMACH. TAKE ON AN EMPTY STOMACH 30 MINUTES BEFORE A MEAL ORAL DISCONT INUED 01/15/2024 [id number] 4 ZENY CARTER 2022 360 [place] POLYVINYL ALCOHOL 1.4% SOLN,OPH PUT 2 DROPS IN EYE(S) DIRECTED NEEDED FOR DRY EYES OPHTHA LMIC ACTIVE 11/29/2024 [id number] ZENY CARTER 2023 45 [place] POLYVINYL ALCOHOL 1.4% SOLN,OPH PUT 1 DROP IN BOTH EYES FOUR TIMES A DAY NEEDED FOR DRY EYES FOR DRY EYES OPHTHA LMIC 10/19/2023 [id number] 4 ZENY CARTER 2022 30 [place] PSYLLIUM PWDR,ORAL MIX 1 TEASPOON FUL (5ML) IN 8 OZ GLASS OF WATER AND TAKE BY MOUTH DAILY FOR CONSTIPA TION ORAL ACTIVE 09/20/2025 [id number] 5 ZENY CARTER 2024 390 [place] [facility] PSYLLIUM PWDR,ORAL MIX 1 TEASPOON FUL (5ML) IN 8 OZ GLASS OF WATER AND TAKE BY MOUTH DAILY FOR CONSTIPA TION ORAL DISCONT INUED 08/24/2024 [id number] 5 ZENY CARTER 2023 390 [place] [facility] ROSUVASTATI N CA 10MG TAB TAKE ONE-HALF TABLET BY MOUTH AT BEDTIME FOR CHOLESTE ROL ORAL SUSPEND ED 08/17/2025 [id number] 5 ZENY CARTER 2024 45 [place] [facility] [place] ROSUVASTATI N CA 10MG TAB TAKE ONE-HALF TABLET BY MOUTH AT BEDTIME FOR CHOLESTE ROL ORAL DISCONT INUED 08/19/2024 [id number] ZENY CARTER 2023 45 [place] SENNOSIDES 8.6MG TAB TAKE THREE TABLETS BY MOUTH DAILY FOR CONSTIPA TION ORAL ACTIVE 10/14/2025 [id number] 5 ZENY CARTER 2024 300 [place] [facility] SENNOSIDES 8.6MG TAB TAKE THREE TABLETS BY MOUTH DAILY FOR CONSTIPA TION ORAL DISCONT INUED 10/04/2024 [id number] 5 ZENY CARTER 2023 300 [place] [facility] SENNOSIDES 8.6MG TAB TAKE THREE TABLETS BY MOUTH DAILY FOR CONSTIPA TION - NOTE DOSE CHANGE 09/01/21 ORAL DISCONT INUED 09/16/2023 [id number] ZENY CARTER 2022 300 [place] [facility] SINUS RINSE NEILMED REGULAR KIT USE KIT TO IRRIGATE NOSE TWICE A DAY FOR NASAL CONGESTI ON -MIX DIRECTED ON PACKAGE WITH DISTILLE D WATER THEN FOLLOW DIRECTIO NS ON PACKAGE. REPLACE BOTTLE EVERY 3 MONTHS NASAL ACTIVE 08/05/2024 [id number] ZENY CARTER HEMANTH Mar 2023 [facility] TAMSULOSIN HCL 0.4MG CAP TAKE TWO CAPSULES BY MOUTH EVERY EVENING FOR PROSTATE ORAL ACTIVE 09/20/2025 [id number] 5 EMMAZENY Mar 2024 60 [facility] TAMSULOSIN HCL 0.4MG CAP TAKE TWO CAPSULES BY MOUTH EVERY EVENING FOR PROSTATE ORAL DISCONT INUED 08/19/2024 [id number] 5 ZENY CARTER HEMANTH Mar 2023 60 [facility] ON-[facility] Allergies, Adverse Reactions, Alerts Combined list of allergies from Department of Defense and Veterans Affairs facilities. It does not include entries that were removed or entered in error. Substance Category Reaction Severity Reaction type Status Date Reported Comments Source BENAZEPRIL Propensity to adverse reactions to drug (finding) Lip swelling active 2 [facility] LOVASTATIN Propensity to adverse reactions to drug (finding) active 9 [facility] Immunizations Combined list of available immunizations from the Department of Defense and Veterans Affairs facilities. Immunization Series Date Given Administered By Site Reaction Lot Number CVX Code Drug Residential Counselor Status Comments Source COVID-19 (MODERNA), MRNA, LNP-S, PF, 50 MCG/0.5 ML (AGES 12+ YEARS) 2023 FERNANDESSANNA H F RIGHT DELTO ID [id number] 312 complet ed [facility] INFLUENZA, HIGH-DOSE, TRIVALENT, PF 2023 SANNA FERNANDES H F RIGHT DELTO ID [id number] 135 complet ed [facility] TD (ADULT), 5 LF TETANUS TOXOID, PRESERVATIVE FREE, ADSORBED 2022 SANNA FERNANDES H F LEFT DELTO ID [id number] 113 complet ed [facility] [place], [place] [facility] COVID-19 (PFIZER), MRNA, LNP-S, PF, JESS-SUCROSE, 30 MCG/0.3 ML (AGES 12+ YEARS) 1 2022 DOMSANNA Juan Pablo Wu LEFT DELTO ID [id number] 309 complet ed [facility]E [place], [place] [facility] INFLUENZA, HIGH-DOSE, QUADRIVALENT 2022 ZEINA ORTA LEFT DELTO ID [id number] 197 complet ed ADMINISTE [place] AT [place], Temp 47degrees [place] PNEUMOCOCCAL CONJUGATE PCV20, POLYSACCHARID E [id number] CONJUGATE, ADJUVANT, PF 2021 SANNA FERNANDES LEFT DELTO ID [id number] 216 complet ed ADMINISTE [place], [place] INFLUENZA VACCINE, QUADRIVALENT, ADJUVANTED 2021 205 complet ed [place] ZOSTER RECOMBINANT 1 2020 187 complet ed [place] ZOSTER RECOMBINANT 1 2020 187 complet ed [place] INFLUENZA, INJECTABLE, QUADRIVALENT, PRESERVATIVE FREE 2020 150 complet ed [place] [facility] [place] COVID-19 (MODERNA), MRNA, LNP-S, PF, 100 MCG/0.5 ML DOSE 2 2020 207 complet ed [place] [facility] [place] COVID-19 (MODERNA), MRNA, LNP-S, PF, 100 MCG/0.5 ML DOSE 1 2020 207 complet ed [place] [facility] INFLUENZA, INJECTABLE, QUADRIVALENT, PRESERVATIVE FREE 2019 150 complet ed [place] [facility], SEASONAL, INJECTABLE 2018 141 complet ed Locally [place] [facility] [place] INFLUENZA, SEASONAL, INJECTABLE 2017 141 complet ed [place] [facility] INFLUENZA A & B (HISTORICAL) 2016 88 complet ed [place] [facility] INFLUENZA A & B (HISTORICAL) 2015 88 complet ed [place] [facility] [place] [id number] (HISTORICAL) 2015 133 complet ed [place] [facility] INFLUENZA A & B (HISTORICAL) 2014 88 complet ed [place] [facility] INFLUENZA A & B (HISTORICAL) 2013 88 complet ed [place] [facility] INFLUENZA A & B (HISTORICAL) 2013 88 complet ed [place] [facility] INFLUENZA A & B (HISTORICAL) 2012 88 complet ed [place] [facility] INFLUENZA A & B (HISTORICAL) 2011 88 complet ed [facility] [place] [facility] DTP 2010 [facility] ED S 01 complet ed [place] [facility] TD(ADULT) UNSPECIFIED FORMULATION 2010 139 complet ed [place] [facility] INFLUENZA A & B (HISTORICAL) 2010 88 complet ed [place] [facility] INFLUENZA A & B (HISTORICAL) 2010 88 complet ed [place] [facility] INFLUENZA A & B (HISTORICAL) 2009 88 complet ed locally [place] [facility] INFLUENZA A & B (HISTORICAL) 2008 88 complet ed LOCAL [facility] [place] [facility] [place] FLU,3 YRS (HISTORICAL) 2007 88 complet ed [place] [facility] PNEUMOCOCCAL, UNSPECIFIED FORMULATION 2006 109 complet ed [place] [facility] (HISTORICAL) 2006 88 complet ed [place] [facility] FLU,3 YRS (HISTORICAL) 2005 88 complet ed [place] [facility] & B (HISTORICAL) 2004 88 complet ed [place] [facility] FLU,3 YRS (HISTORICAL) 2003 CORAL STEPHENS 88 complet ed [place] [facility] & B (HISTORICAL) 2002 88 complet ed [place] [facility] FLU,3 YRS (HISTORICAL) 2002 DORITA ORNELAS 88 complet ed [place] [facility](ADULT) UNSPECIFIED FORMULATION 2001 139 complet ed [place] [facility] INFLUENZA, UNSPECIFIED FORMULATION 2000 88 complet ed [place] [facility] INFLU[facility], UNSPECIFIED FORMULATION 2000 88 complet ed [place] [facility] PNEUMOCOCCAL, UNSPECIFIED FORMULATION 2000 DANAY VALDES I 109 complet ed [place] INFLUENZA, UNSPECIFIED FORMULATION 1999 88 complet ed [place] [facility] TD(ADULT) UNSPECIFIED FORMULATION 1996 139 complet ed [place] [facility] Results Combined list of recent chemistry, hematology and other laboratory results from [facility] [employer] [facility], ranging from 15 months to all on record, depending upon the facility. Order Name Results Value Reference Range Date Interpretation Specimen Comments Source FERRITIN FERRITIN [MASS/VOLU ME] IN SERUM OR PLASMA 232.6 ng/mL 21.8 - 274.7 06/08 Specimen Type: PLASMA No comment entered. Ordering Provider: KIRK CARTER Report Released Date/Time: Jun 08, 2024 10:50 AM Reporting Lab: [id number] [id number] Performing Lab: [address] [address] [facility] IRON/TIB C IRON [MOLES/VOL UME] IN SERUM OR PLASMA 60 ug/dL 65 - 175 06/08 L Specimen Type: PLASMA No comment entered. Ordering Provider: KIRK CARTER Report Released Date/Time: Jun 08, 2024 10:50 AM Reporting Lab: [address] [id number] Performing Lab: [address] [id number] [facility] IRON/TIB C IRON BINDING CAPACITY [MASS/VOLU ME] IN SERUM OR PLASMA 163 mg/dL 250 - 425 06/08 L Specimen Type: PLASMA No comment entered. Ordering Provider: KIRK CARTER Report Released Date/Time: Jun 08, 2024 10:50 AM Reporting Lab: [address] [phone] Performing Lab: [place] [id number] [facility] IRON/TIB C IRON SATURATION [MOLAR FRACTION] IN SERUM OR PLASMA 37 20 - 50 06/08 Specimen Type: PLASMA No comment entered. Ordering Provider: KIRK CARTER Report Released Date/Time: Jun 08, 2024 10:50 AM Reporting Lab: [address] [phone] Performing Lab: [place] [id number] [facility] 25-OH VITAMIN D 25-HYDROXY VITAMIN D3 [MASS/VOLU ME] IN SERUM OR PLASMA 30.0 ng/mL 20.0 - 50.0 06/07 Specimen Type: SERUM Comment: The National Institutes of Health (NIH) recommendat ions state: <12 ng/mL - Deficient 20 - 50 ng/mL - Optimal Levels - adequate for most people. >50 ng/mL - Increased risk of hypercalciu jeremy/other health problems - clinical correlation is required. These reference ranges represent clinical decision values rather than population- based reference values. Ordering Provider: KIRK CARTER Report Released Date/Time: August 24, 2023 04:05 PM Reporting Lab: [address] [phone] Performing Lab: [place] [id number] [facility] PANEL 2 PROTEIN [MASS/VOLU ME] IN SERUM OR PLASMA 6.5 g/dL 6.4 - 8.3 06/07 Specimen Type: PLASMA Comment: Estimated Glomerular Filtration Rate (eGFR) calculated using the 2020 Chronic Kidney Disease-Epi demiology (CKD-EPI) Collaborati on creatinine equation; units of measure are mL/min/1.73 m2. Results are only valid for adults (>=18 years) whose serum creatinine is in a steady state. eGFR calculation s are not valid for patients with acute kidney injury and for patients on dialysis. Creatinine- based estimates of kidney function may also be inaccurate in patients with reduced creatinine generation due to decreased muscle mass (e.g., malnutritio n, severe hypoalbumin emia, sarcopenia, chronic neuromuscul ar disease, amputations , severe heart failure or liver disease) and in patients with increased creatinine generation due to increased muscle mass (e.g., muscle builders, anabolic steroids) or increased dietary intake. As drug clearance is proportiona l to total GFR and not GFR indexed to body surface area (BSA), in individuals with a BSA substantial ly different than 1.73 m2, drug dosing should be based on the reported eGFR value de-indexed from BSA by multiplying by the individual' s BSA and dividing by 1.73. CKD is diagnosed based on abnormaliti es of kidney structure or function, present for >3 months, with implication s for health and disease. CKD is classified and staged based on cause, eGFR and albuminuria (quantified as urine albumin to creatinine ratio). An eGFR >60 mL/min/1.73 m2 in the absence of increased urine albumin excretion or structural abnormaliti es does not represent CKD. eGFR CKD Interpretat ion (mL/min/1.7 3 m2) stage >=90 G1 Normal 60-89 G2 Mild decrease 45-59 G3A Mild to moderate decrease 30-44 G3B Moderate to severe decrease 15-29 G4 Severe decrease <15 G5 Kidney failure Ordering Provider: KIRK CARTER Report Released Date/Time: August 24, 2023 04:05 PM Reporting Lab: [facility] [address] [phone] Performing Lab: [facility] [address] [phone] [facility] PANEL 2 ALBUMIN [MASS/VOLU ME] IN SERUM OR PLASMA 3.7 g/dL 3.5 - 5.2 06/07 Specimen Type: PLASMA Comment: Estimated Glomerular Filtration Rate (eGFR) calculated using the 2020 Chronic Kidney Disease-Epi demiology (CKD-EPI) Collaborati on creatinine equation; units of measure are mL/min/1.73 m2. Results are only valid for adults (>=18 years) whose serum creatinine is in a steady state. eGFR calculation s are not valid for patients with acute kidney injury and for patients on dialysis. Creatinine- based estimates of kidney function may also be inaccurate in patients with reduced creatinine generation due to decreased muscle mass (e.g., malnutritio n, severe hypoalbumin emia, sarcopenia, chronic neuromuscul ar disease, amputations , severe heart failure or liver disease) and in patients with increased creatinine generation due to increased muscle mass (e.g., muscle builders, anabolic steroids) or increased dietary intake. As drug clearance is proportiona l to total GFR and not GFR indexed to body surface area (BSA), in individuals with a BSA substantial ly different than 1.73 m2, drug dosing should be based on the reported eGFR value de-indexed from BSA by multiplying by the individual' s BSA and dividing by 1.73. CKD is diagnosed based on abnormaliti es of kidney structure or function, present for >3 months, with implication s for health and disease. CKD is classified and staged based on cause, eGFR and albuminuria (quantified as urine albumin to creatinine ratio). An eGFR >60 mL/min/1.73 m2 in the absence of increased urine albumin excretion or structural abnormaliti es does not represent CKD. eGFR CKD Interpretat ion (mL/min/1.7 3 m2) stage >=90 G1 Normal 60-89 G2 Mild decrease 45-59 G3A Mild to moderate decrease 30-44 G3B Moderate to severe decrease 15-29 G4 Severe decrease <15 G5 Kidney failure Ordering Provider: KIRK CARTER Report Released Date/Time: August 24, 2023 04:05 PM Reporting Lab: [facility] [address] [phone] Performing Lab: [facility] [address] [phone] [facility] PANEL 2 BILIRUBIN. TOTAL [MASS/VOLU ME] IN SERUM OR PLASMA 0.5 mg/dL 0.2 - 1.2 06/07 Specimen Type: PLASMA Comment: Estimated Glomerular Filtration Rate (eGFR) calculated using the 2020 Chronic Kidney Disease-Epi demiology (CKD-EPI) Collaborati on creatinine equation; units of measure are mL/min/1.73 m2. Results are only valid for adults (>=18 years) whose serum creatinine is in a steady state. eGFR calculation s are not valid for patients with acute kidney injury and for patients on dialysis. Creatinine- based estimates of kidney function may also be inaccurate in patients with reduced creatinine generation due to decreased muscle mass (e.g., malnutritio n, severe hypoalbumin emia, sarcopenia, chronic neuromuscul ar disease, amputations , severe heart failure or liver disease) and in patients with increased creatinine generation due to increased muscle mass (e.g., muscle builders, anabolic steroids) or increased dietary intake. As drug clearance is proportiona l to total GFR and not GFR indexed to body surface area (BSA), in individuals with a BSA substantial ly different than 1.73 m2, drug dosing should be based on the reported eGFR value de-indexed from BSA by multiplying by the individual' s BSA and dividing by 1.73. CKD is diagnosed based on abnormaliti es of kidney structure or function, present for >3 months, with implication s for health and disease. CKD is classified and staged based on cause, eGFR and albuminuria (quantified as urine albumin to creatinine ratio). An eGFR >60 mL/min/1.73 m2 in the absence of increased urine albumin excretion or structural abnormaliti es does not represent CKD. eGFR CKD Interpretat ion (mL/min/1.7 3 m2) stage >=90 G1 Normal 60-89 G2 Mild decrease 45-59 G3A Mild to moderate decrease 30-44 G3B Moderate to severe decrease 15-29 G4 Severe decrease <15 G5 Kidney failure Ordering Provider: KIRK CARTER Report Released Date/Time: August 24, 2023 04:05 PM Reporting Lab: [facility] [address] [phone] Performing Lab: [facility] [address] [phone] [facility] PANEL 2 ASPARTATE AMINOTRANS FERASE [ENZYMATIC ACTIVITY/V OLUME] IN SERUM OR PLASMA 12 U/L 5 - 34 06/07 Specimen Type: PLASMA Comment: Estimated Glomerular Filtration Rate (eGFR) calculated using the 2020 Chronic Kidney Disease-Epi demiology (CKD-EPI) Collaborati on creatinine equation; units of measure are mL/min/1.73 m2. Results are only valid for adults (>=18 years) whose serum creatinine is in a steady state. eGFR calculation s are not valid for patients with acute kidney injury and for patients on dialysis. Creatinine- based estimates of kidney function may also be inaccurate in patients with reduced creatinine generation due to decreased muscle mass (e.g., malnutritio n, severe hypoalbumin emia, sarcopenia, chronic neuromuscul ar disease, amputations , severe heart failure or liver disease) and in patients with increased creatinine generation due to increased muscle mass (e.g., muscle builders, anabolic steroids) or increased dietary intake. As drug clearance is proportiona l to total GFR and not GFR indexed to body surface area (BSA), in individuals with a BSA substantial ly different than 1.73 m2, drug dosing should be based on the reported eGFR value de-indexed from BSA by multiplying by the individual' s BSA and dividing by 1.73. CKD is diagnosed based on abnormaliti es of kidney structure or function, present for >3 months, with implication s for health and disease. CKD is classified and staged based on cause, eGFR and albuminuria (quantified as urine albumin to creatinine ratio). An eGFR >60 mL/min/1.73 m2 in the absence of increased urine albumin excretion or structural abnormaliti es does not represent CKD. eGFR CKD Interpretat ion (mL/min/1.7 3 m2) stage >=90 G1 Normal 60-89 G2 Mild decrease 45-59 G3A Mild to moderate decrease 30-44 G3B Moderate to severe decrease 15-29 G4 Severe decrease <15 G5 Kidney failure Ordering Provider: KIRK CARTER Report Released Date/Time: August 24, 2023 04:05 PM Reporting Lab: [facility] [address] [facility] [phone] Performing Lab: [facility] [address] [facility] [phone] [facility] PANEL 2 ALANINE AMINOTRANS FERASE [ENZYMATIC ACTIVITY/V OLUME] IN SERUM OR PLASMA <8U/L 0 - 55 06/07 Specimen Type: PLASMA Comment: Estimated Glomerular Filtration Rate (eGFR) calculated using the 2020 Chronic Kidney Disease-Epi demiology (CKD-EPI) Collaborati on creatinine equation; units of measure are mL/min/1.73 m2. Results are only valid for adults (>=18 years) whose serum creatinine is in a steady state. eGFR calculation s are not valid for patients with acute kidney injury and for patients on dialysis. Creatinine- based estimates of kidney function may also be inaccurate in patients with reduced creatinine generation due to decreased muscle mass (e.g., malnutritio n, severe hypoalbumin emia, sarcopenia, chronic neuromuscul ar disease, amputations , severe heart failure or liver disease) and in patients with increased creatinine generation due to increased muscle mass (e.g., muscle builders, anabolic steroids) or increased dietary intake. As drug clearance is proportiona l to total GFR and not GFR indexed to body surface area (BSA), in individuals with a BSA substantial ly different than 1.73 m2, drug dosing should be based on the reported eGFR value de-indexed from BSA by multiplying by the individual' s BSA and dividing by 1.73. CKD is diagnosed based on abnormaliti es of kidney structure or function, present for >3 months, with implication s for health and disease. CKD is classified and staged based on cause, eGFR and albuminuria (quantified as urine albumin to creatinine ratio). An eGFR >60 mL/min/1.73 m2 in the absence of increased urine albumin excretion or structural abnormaliti es does not represent CKD. eGFR CKD Interpretat ion (mL/min/1.7 3 m2) stage >=90 G1 Normal 60-89 G2 Mild decrease 45-59 G3A Mild to moderate decrease 30-44 G3B Moderate to severe decrease 15-29 G4 Severe decrease <15 G5 Kidney failure Ordering Provider: KIRK CARTER Report Released Date/Time: August 24, 2023 04:05 PM Reporting Lab: [facility] [address] [facility] [phone] Performing Lab: [facility] [address] [facility] [phone] [facility] PANEL 2 ALKALINE PHOSPHATAS E [ENZYMATIC ACTIVITY/V OLUME] IN SERUM OR PLASMA 59 U/L 40 - 150 06/07 Specimen Type: PLASMA Comment: Estimated Glomerular Filtration Rate (eGFR) calculated using the 2020 Chronic Kidney Disease-Epi demiology (CKD-EPI) Collaborati on creatinine equation; units of measure are mL/min/1.73 m2. Results are only valid for adults (>=18 years) whose serum creatinine is in a steady state. eGFR calculation s are not valid for patients with acute kidney injury and for patients on dialysis. Creatinine- based estimates of kidney function may also be inaccurate in patients with reduced creatinine generation due to decreased muscle mass (e.g., malnutritio n, severe hypoalbumin emia, sarcopenia, chronic neuromuscul ar disease, amputations , severe heart failure or liver disease) and in patients with increased creatinine generation due to increased muscle mass (e.g., muscle builders, anabolic steroids) or increased dietary intake. As drug clearance is proportiona l to total GFR and not GFR indexed to body surface area (BSA), in individuals with a BSA substantial ly different than 1.73 m2, drug dosing should be based on the reported eGFR value de-indexed from BSA by multiplying by the individual' s BSA and dividing by 1.73. CKD is diagnosed based on abnormaliti es of kidney structure or function, present for >3 months, with implication s for health and disease. CKD is classified and staged based on cause, eGFR and albuminuria (quantified as urine albumin to creatinine ratio). An eGFR >60 mL/min/1.73 m2 in the absence of increased urine albumin excretion or structural abnormaliti es does not represent CKD. eGFR CKD Interpretat ion (mL/min/1.7 3 m2) stage >=90 G1 Normal 60-89 G2 Mild decrease 45-59 G3A Mild to moderate decrease 30-44 G3B Moderate to severe decrease 15-29 G4 Severe decrease <15 G5 Kidney failure Ordering Provider: KIRK CARTER Report Released Date/Time: August 24, 2023 04:05 PM Reporting Lab: [facility] [address] [phone] Performing Lab: [facility] [address] [phone] [facility] PANEL 2 BILIRUBIN. DIRECT [MASS/VOLU ME] IN SERUM OR PLASMA 0.2 mg/dL 0.0 - 0.5 06/07 Specimen Type: PLASMA Comment: Estimated Glomerular Filtration Rate (eGFR) calculated using the 2020 Chronic Kidney Disease-Epi demiology (CKD-EPI) Collaborati on creatinine equation; units of measure are mL/min/1.73 m2. Results are only valid for adults (>=18 years) whose serum creatinine is in a steady state. eGFR calculation s are not valid for patients with acute kidney injury and for patients on dialysis. Creatinine- based estimates of kidney function may also be inaccurate in patients with reduced creatinine generation due to decreased muscle mass (e.g., malnutritio n, severe hypoalbumin emia, sarcopenia, chronic neuromuscul ar disease, amputations , severe heart failure or liver disease) and in patients with increased creatinine generation due to increased muscle mass (e.g., muscle builders, anabolic steroids) or increased dietary intake. As drug clearance is proportiona l to total GFR and not GFR indexed to body surface area (BSA), in individuals with a BSA substantial ly different than 1.73 m2, drug dosing should be based on the reported eGFR value de-indexed from BSA by multiplying by the individual' s BSA and dividing by 1.73. CKD is diagnosed based on abnormaliti es of kidney structure or function, present for >3 months, with implication s for health and disease. CKD is classified and staged based on cause, eGFR and albuminuria (quantified as urine albumin to creatinine ratio). An eGFR >60 mL/min/1.73 m2 in the absence of increased urine albumin excretion or structural abnormaliti es does not represent CKD. eGFR CKD Interpretat ion (mL/min/1.7 3 m2) stage >=90 G1 Normal 60-89 G2 Mild decrease 45-59 G3A Mild to moderate decrease 30-44 G3B Moderate to severe decrease 15-29 G4 Severe decrease <15 G5 Kidney failure Ordering Provider: KIRK CARTER Report Released Date/Time: August 24, 2023 04:05 PM Reporting Lab: [facility] [address] [place] [phone] Performing Lab: [facility] [address] [phone] [facility] PANEL 1 CREATININE [MASS/VOLU ME] IN SERUM OR PLASMA 1.15 mg/dL 0.72 - 1.25 06/07 Specimen Type: PLASMA Comment: Estimated Glomerular Filtration Rate (eGFR) calculated using the 2020 Chronic Kidney Disease-Epi demiology (CKD-EPI) Collaborati on creatinine equation; units of measure are mL/min/1.73 m2. Results are only valid for adults (>=18 years) whose serum creatinine is in a steady state. eGFR calculation s are not valid for patients with acute kidney injury and for patients on dialysis. Creatinine- based estimates of kidney function may also be inaccurate in patients with reduced creatinine generation due to decreased muscle mass (e.g., malnutritio n, severe hypoalbumin emia, sarcopenia, chronic neuromuscul ar disease, amputations , severe heart failure or liver disease) and in patients with increased creatinine generation due to increased muscle mass (e.g., muscle builders, anabolic steroids) or increased dietary intake. As drug clearance is proportiona l to total GFR and not GFR indexed to body surface area (BSA), in individuals with a BSA substantial ly different than 1.73 m2, drug dosing should be based on the reported eGFR value de-indexed from BSA by multiplying by the individual' s BSA and dividing by 1.73. CKD is diagnosed based on abnormaliti es of kidney structure or function, present for >3 months, with implication s for health and disease. CKD is classified and staged based on cause, eGFR and albuminuria (quantified as urine albumin to creatinine ratio). An eGFR >60 mL/min/1.73 m2 in the absence of increased urine albumin excretion or structural abnormaliti es does not represent CKD. eGFR CKD Interpretat ion (mL/min/1.7 3 m2) stage >=90 G1 Normal 60-89 G2 Mild decrease 45-59 G3A Mild to moderate decrease 30-44 G3B Moderate to severe decrease 15-29 G4 Severe decrease <15 G5 Kidney failure Ordering Provider: KIRK CARTER Report Released Date/Time: August 24, 2023 04:05 PM Reporting Lab: [facility] [address] [phone] Performing Lab: [facility] [address] [address] [facility] PANEL 1 UREA NITROGEN [MASS/VOLU ME] IN SERUM OR PLASMA 12 mg/dL 06/07 Specimen Type: PLASMA Comment: Estimated Glomerular Filtration Rate (eGFR) calculated using the 2020 Chronic Kidney Disease-Epi demiology (CKD-EPI) Collaborati on creatinine equation; units of measure are mL/min/1.73 m2. Results are only valid for adults (>=18 years) whose serum creatinine is in a steady state. eGFR calculation s are not valid for patients with acute kidney injury and for patients on dialysis. Creatinine- based estimates of kidney function may also be inaccurate in patients with reduced creatinine generation due to decreased muscle mass (e.g., malnutritio n, severe hypoalbumin emia, sarcopenia, chronic neuromuscul ar disease, amputations , severe heart failure or liver disease) and in patients with increased creatinine generation due to increased muscle mass (e.g., muscle builders, anabolic steroids) or increased dietary intake. As drug clearance is proportiona l to total GFR and not GFR indexed to body surface area (BSA), in individuals with a BSA substantial ly different than 1.73 m2, drug dosing should be based on the reported eGFR value de-indexed from BSA by multiplying by the individual' s BSA and dividing by 1.73. CKD is diagnosed based on abnormaliti es of kidney structure or function, present for >3 months, with implication s for health and disease. CKD is classified and staged based on cause, eGFR and albuminuria (quantified as urine albumin to creatinine ratio). An eGFR >60 mL/min/1.73 m2 in the absence of increased urine albumin excretion or structural abnormaliti es does not represent CKD. eGFR CKD Interpretat ion (mL/min/1.7 3 m2) stage >=90 G1 Normal 60-89 G2 Mild decrease 45-59 G3A Mild to moderate decrease 30-44 G3B Moderate to severe decrease 15-29 G4 Severe decrease <15 G5 Kidney failure Ordering Provider: KIRK CARTER Report Released Date/Time: August 24, 2023 04:05 PM Reporting Lab: [facility] [address] [phone] Performing Lab: [facility] [address] [address] [facility] PANEL 1 GLUCOSE [MASS/VOLU ME] IN SERUM OR PLASMA 119 mg/dL 74 - 100 06/07 H Specimen Type: PLASMA Comment: Estimated Glomerular Filtration Rate (eGFR) calculated using the 2020 Chronic Kidney Disease-Epi demiology (CKD-EPI) Collaborati on creatinine equation; units of measure are mL/min/1.73 m2. Results are only valid for adults (>=18 years) whose serum creatinine is in a steady state. eGFR calculation s are not valid for patients with acute kidney injury and for patients on dialysis. Creatinine- based estimates of kidney function may also be inaccurate in patients with reduced creatinine generation due to decreased muscle mass (e.g., malnutritio n, severe hypoalbumin emia, sarcopenia, chronic neuromuscul ar disease, amputations , severe heart failure or liver disease) and in patients with increased creatinine generation due to increased muscle mass (e.g., muscle builders, anabolic steroids) or increased dietary intake. As drug clearance is proportiona l to total GFR and not GFR indexed to body surface area (BSA), in individuals with a BSA substantial ly different than 1.73 m2, drug dosing should be based on the reported eGFR value de-indexed from BSA by multiplying by the individual' s BSA and dividing by 1.73. CKD is diagnosed based on abnormaliti es of kidney structure or function, present for >3 months, with implication s for health and disease. CKD is classified and staged based on cause, eGFR and albuminuria (quantified as urine albumin to creatinine ratio). An eGFR >60 mL/min/1.73 m2 in the absence of increased urine albumin excretion or structural abnormaliti es does not represent CKD. eGFR CKD Interpretat ion (mL/min/1.7 3 m2) stage >=90 G1 Normal 60-89 G2 Mild decrease 45-59 G3A Mild to moderate decrease 30-44 G3B Moderate to severe decrease 15-29 G4 Severe decrease <15 G5 Kidney failure Ordering Provider: KIRK CARTER Report Released Date/Time: August 24, 2023 04:05 PM Reporting Lab: [facility] [address] [phone] Performing Lab: [facility] [address] [address] [facility] PANEL 1 SODIUM [MOLES/VOL UME] IN SERUM OR PLASMA 142 mmol/L 136 - 145 06/07 Specimen Type: PLASMA Comment: Estimated Glomerular Filtration Rate (eGFR) calculated using the 2020 Chronic Kidney Disease-Epi demiology (CKD-EPI) Collaborati on creatinine equation; units of measure are mL/min/1.73 m2. Results are only valid for adults (>=18 years) whose serum creatinine is in a steady state. eGFR calculation s are not valid for patients with acute kidney injury and for patients on dialysis. Creatinine- based estimates of kidney function may also be inaccurate in patients with reduced creatinine generation due to decreased muscle mass (e.g., malnutritio n, severe hypoalbumin emia, sarcopenia, chronic neuromuscul ar disease, amputations , severe heart failure or liver disease) and in patients with increased creatinine generation due to increased muscle mass (e.g., muscle builders, anabolic steroids) or increased dietary intake. As drug clearance is proportiona l to total GFR and not GFR indexed to body surface area (BSA), in individuals with a BSA substantial ly different than 1.73 m2, drug dosing should be based on the reported eGFR value de-indexed from BSA by multiplying by the individual' s BSA and dividing by 1.73. CKD is diagnosed based on abnormaliti es of kidney structure or function, present for >3 months, with implication s for health and disease. CKD is classified and staged based on cause, eGFR and albuminuria (quantified as urine albumin to creatinine ratio). An eGFR >60 mL/min/1.73 m2 in the absence of increased urine albumin excretion or structural abnormaliti es does not represent CKD. eGFR CKD Interpretat ion (mL/min/1.7 3 m2) stage >=90 G1 Normal 60-89 G2 Mild decrease 45-59 G3A Mild to moderate decrease 30-44 G3B Moderate to severe decrease 15-29 G4 Severe decrease <15 G5 Kidney failure Ordering Provider: KIRK CARTER Report Released Date/Time: August 24, 2023 04:05 PM Reporting Lab: [facility] [address] [address] Performing Lab: [facility] [address] [address] [facility] PANEL 1 POTASSIUM [MOLES/VOL UME] IN SERUM OR PLASMA 3.5 mmol/L 3.5 - 5.1 06/07 Specimen Type: PLASMA Comment: Estimated Glomerular Filtration Rate (eGFR) calculated using the 2020 Chronic Kidney Disease-Epi demiology (CKD-EPI) Collaborati on creatinine equation; units of measure are mL/min/1.73 m2. Results are only valid for adults (>=18 years) whose serum creatinine is in a steady state. eGFR calculation s are not valid for patients with acute kidney injury and for patients on dialysis. Creatinine- based estimates of kidney function may also be inaccurate in patients with reduced creatinine generation due to decreased muscle mass (e.g., malnutritio n, severe hypoalbumin emia, sarcopenia, chronic neuromuscul ar disease, amputations , severe heart failure or liver disease) and in patients with increased creatinine generation due to increased muscle mass (e.g., muscle builders, anabolic steroids) or increased dietary intake. As drug clearance is proportiona l to total GFR and not GFR indexed to body surface area (BSA), in individuals with a BSA substantial ly different than 1.73 m2, drug dosing should be based on the reported eGFR value de-indexed from BSA by multiplying by the individual' s BSA and dividing by 1.73. CKD is diagnosed based on abnormaliti es of kidney structure or function, present for >3 months, with implication s for health and disease. CKD is classified and staged based on cause, eGFR and albuminuria (quantified as urine albumin to creatinine ratio). An eGFR >60 mL/min/1.73 m2 in the absence of increased urine albumin excretion or structural abnormaliti es does not represent CKD. eGFR CKD Interpretat ion (mL/min/1.7 3 m2) stage >=90 G1 Normal 60-89 G2 Mild decrease 45-59 G3A Mild to moderate decrease 30-44 G3B Moderate to severe decrease 15-29 G4 Severe decrease <15 G5 Kidney failure Ordering Provider: KIRK CARTER Report Released Date/Time: August 24, 2023 04:05 PM Reporting Lab: [facility] [address] [address] Performing Lab: [facility] [address] [address] [facility] PANEL 1 CHLORIDE [MOLES/VOL UME] IN SERUM OR PLASMA 110 mmol/L 98 - 107 06/07 H Specimen Type: PLASMA Comment: Estimated Glomerular Filtration Rate (eGFR) calculated using the 2020 Chronic Kidney Disease-Epi demiology (CKD-EPI) Collaborati on creatinine equation; units of measure are mL/min/1.73 m2. Results are only valid for adults (>=18 years) whose serum creatinine is in a steady state. eGFR calculation s are not valid for patients with acute kidney injury and for patients on dialysis. Creatinine- based estimates of kidney function may also be inaccurate in patients with reduced creatinine generation due to decreased muscle mass (e.g., malnutritio n, severe hypoalbumin emia, sarcopenia, chronic neuromuscul ar disease, amputations , severe heart failure or liver disease) and in patients with increased creatinine generation due to increased muscle mass (e.g., muscle builders, anabolic steroids) or increased dietary intake. As drug clearance is proportiona l to total GFR and not GFR indexed to body surface area (BSA), in individuals with a BSA substantial ly different than 1.73 m2, drug dosing should be based on the reported eGFR value de-indexed from BSA by multiplying by the individual' s BSA and dividing by 1.73. CKD is diagnosed based on abnormaliti es of kidney structure or function, present for >3 months, with implication s for health and disease. CKD is classified and staged based on cause, eGFR and albuminuria (quantified as urine albumin to creatinine ratio). An eGFR >60 mL/min/1.73 m2 in the absence of increased urine albumin excretion or structural abnormaliti es does not represent CKD. eGFR CKD Interpretat ion (mL/min/1.7 3 m2) stage >=90 G1 Normal 60-89 G2 Mild decrease 45-59 G3A Mild to moderate decrease 30-44 G3B Moderate to severe decrease 15-29 G4 Severe decrease <15 G5 Kidney failure Ordering Provider: KIRK CARTER Report Released Date/Time: August 24, 2023 04:05 PM Reporting Lab: [facility] [address] [address] Performing Lab: [facility] [address] [address] [facility] PANEL 1 CARBON DIOXIDE, TOTAL [MOLES/VOL UME] IN SERUM OR PLASMA 23 mmol/L - 06/07 Specimen Type: PLASMA Comment: Estimated Glomerular Filtration Rate (eGFR) calculated using the 2020 Chronic Kidney Disease-Epi demiology (CKD-EPI) Collaborati on creatinine equation; units of measure are mL/min/1.73 m2. Results are only valid for adults (>=18 years) whose serum creatinine is in a steady state. eGFR calculation s are not valid for patients with acute kidney injury and for patients on dialysis. Creatinine- based estimates of kidney function may also be inaccurate in patients with reduced creatinine generation due to decreased muscle mass (e.g., malnutritio n, severe hypoalbumin emia, sarcopenia, chronic neuromuscul ar disease, amputations , severe heart failure or liver disease) and in patients with increased creatinine generation due to increased muscle mass (e.g., muscle builders, anabolic steroids) or increased dietary intake. As drug clearance is proportiona l to total GFR and not GFR indexed to body surface area (BSA), in individuals with a BSA substantial ly different than 1.73 m2, drug dosing should be based on the reported eGFR value de-indexed from BSA by multiplying by the individual' s BSA and dividing by 1.73. CKD is diagnosed based on abnormaliti es of kidney structure or function, present for >3 months, with implication s for health and disease. CKD is classified and staged based on cause, eGFR and albuminuria (quantified as urine albumin to creatinine ratio). An eGFR >60 mL/min/1.73 m2 in the absence of increased urine albumin excretion or structural abnormaliti es does not represent CKD. eGFR CKD Interpretat ion (mL/min/1.7 3 m2) stage >=90 G1 Normal 60-89 G2 Mild decrease 45-59 G3A Mild to moderate decrease 30-44 G3B Moderate to severe decrease 15-29 G4 Severe decrease <15 G5 Kidney failure Ordering Provider: KIRK CARTER Report Released Date/Time: August 24, 2023 04:05 PM Reporting Lab: [facility] [address] [address] Performing Lab: [facility] [address] [address] [facility] PANEL 1 CALCIUM [MASS/VOLU ME] IN SERUM OR PLASMA 9.1 mg/dL 8.4 - 10.2 06/07 Specimen Type: PLASMA Comment: Estimated Glomerular Filtration Rate (eGFR) calculated using the 2020 Chronic Kidney Disease-Epi demiology (CKD-EPI) Collaborati on creatinine equation; units of measure are mL/min/1.73 m2. Results are only valid for adults (>=18 years) whose serum creatinine is in a steady state. eGFR calculation s are not valid for patients with acute kidney injury and for patients on dialysis. Creatinine- based estimates of kidney function may also be inaccurate in patients with reduced creatinine generation due to decreased muscle mass (e.g., malnutritio n, severe hypoalbumin emia, sarcopenia, chronic neuromuscul ar disease, amputations , severe heart failure or liver disease) and in patients with increased creatinine generation due to increased muscle mass (e.g., muscle builders, anabolic steroids) or increased dietary intake. As drug clearance is proportiona l to total GFR and not GFR indexed to body surface area (BSA), in individuals with a BSA substantial ly different than 1.73 m2, drug dosing should be based on the reported eGFR value de-indexed from BSA by multiplying by the individual' s BSA and dividing by 1.73. CKD is diagnosed based on abnormaliti es of kidney structure or function, present for >3 months, with implication s for health and disease. CKD is classified and staged based on cause, eGFR and albuminuria (quantified as urine albumin to creatinine ratio). An eGFR >60 mL/min/1.73 m2 in the absence of increased urine albumin excretion or structural abnormaliti es does not represent CKD. eGFR CKD Interpretat ion (mL/min/1.7 3 m2) stage >=90 G1 Normal 60-89 G2 Mild decrease 45-59 G3A Mild to moderate decrease 30-44 G3B Moderate to severe decrease 15-29 G4 Severe decrease <15 G5 Kidney failure Ordering Provider: KIRK CARTER Report Released Date/Time: August 24, 2023 04:05 PM Reporting Lab: [facility] [address] [address] Performing Lab: [facility] [address] [address] [facility] PANEL 1 ANION GAP 3 IN SERUM OR PLASMA 9 meq/L 3 - 19 06/07 Specimen Type: PLASMA Comment: Estimated Glomerular Filtration Rate (eGFR) calculated using the 2020 Chronic Kidney Disease-Epi demiology (CKD-EPI) Collaborati on creatinine equation; units of measure are mL/min/1.73 m2. Results are only valid for adults (>=18 years) whose serum creatinine is in a steady state. eGFR calculation s are not valid for patients with acute kidney injury and for patients on dialysis. Creatinine- based estimates of kidney function may also be inaccurate in patients with reduced creatinine generation due to decreased muscle mass (e.g., malnutritio n, severe hypoalbumin emia, sarcopenia, chronic neuromuscul ar disease, amputations , severe heart failure or liver disease) and in patients with increased creatinine generation due to increased muscle mass (e.g., muscle builders, anabolic steroids) or increased dietary intake. As drug clearance is proportiona l to total GFR and not GFR indexed to body surface area (BSA), in individuals with a BSA substantial ly different than 1.73 m2, drug dosing should be based on the reported eGFR value de-indexed from BSA by multiplying by the individual' s BSA and dividing by 1.73. CKD is diagnosed based on abnormaliti es of kidney structure or function, present for >3 months, with implication s for health and disease. CKD is classified and staged based on cause, eGFR and albuminuria (quantified as urine albumin to creatinine ratio). An eGFR >60 mL/min/1.73 m2 in the absence of increased urine albumin excretion or structural abnormaliti es does not represent CKD. eGFR CKD Interpretat ion (mL/min/1.7 3 m2) stage >=90 G1 Normal 60-89 G2 Mild decrease 45-59 G3A Mild to moderate decrease 30-44 G3B Moderate to severe decrease 15-29 G4 Severe decrease <15 G5 Kidney failure Ordering Provider: KIRK CARTER Report Released Date/Time: August 24, 2023 04:05 PM Reporting Lab: [facility] [place] [id number] [facility] [address] Performing Lab: [facility] [address] [facility] [address] [facility] PANEL 1 GLOMERULAR FILTRATION RATE/1.73 SQ M.PREDICTE D [VOLUME RATE/AREA] IN SERUM, PLASMA OR BLOOD BY CREATININE -BASED FORMULA (CKD-EPI 2020) 61 06/07 Specimen Type: PLASMA Comment: Estimated Glomerular Filtration Rate (eGFR) calculated using the 2020 Chronic Kidney Disease-Epi demiology (CKD-EPI) Collaborati on creatinine equation; units of measure are mL/min/1.73 m2. Results are only valid for adults (>=18 years) whose serum creatinine is in a steady state. eGFR calculation s are not valid for patients with acute kidney injury and for patients on dialysis. Creatinine- based estimates of kidney function may also be inaccurate in patients with reduced creatinine generation due to decreased muscle mass (e.g., malnutritio n, severe hypoalbumin emia, sarcopenia, chronic neuromuscul ar disease, amputations , severe heart failure or liver disease) and in patients with increased creatinine generation due to increased muscle mass (e.g., muscle builders, anabolic steroids) or increased dietary intake. As drug clearance is proportiona l to total GFR and not GFR indexed to body surface area (BSA), in individuals with a BSA substantial ly different than 1.73 m2, drug dosing should be based on the reported eGFR value de-indexed from BSA by multiplying by the individual' s BSA and dividing by 1.73. CKD is diagnosed based on abnormaliti es of kidney structure or function, present for >3 months, with implication s for health and disease. CKD is classified and staged based on cause, eGFR and albuminuria (quantified as urine albumin to creatinine ratio). An eGFR >60 mL/min/1.73 m2 in the absence of increased urine albumin excretion or structural abnormaliti es does not represent CKD. eGFR CKD Interpretat ion (mL/min/1.7 3 m2) stage >=90 G1 Normal 60-89 G2 Mild decrease 45-59 G3A Mild to moderate decrease 30-44 G3B Moderate to severe decrease 15-29 G4 Severe decrease <15 G5 Kidney failure Ordering Provider: KIRK CARTER Report Released Date/Time: August 24, 2023 04:05 PM Reporting Lab: [place] [id number] Performing Lab: [place] [id number] CBC/PLT LEUKOCYTES [#/VOLUME] IN BLOOD BY AUTOMATED COUNT 3.9 10*3/uL 5.0 - 10.0 06/07 L Specimen Type: BLOOD No comment entered. Ordering Provider: KIRK CARTER Report Released Date/Time: August 24, 2023 04:05 PM Reporting Lab: [place] [address] Performing Lab: [address] CBC/PLT ERYTHROCYT ES [#/VOLUME] IN BLOOD BY AUTOMATED COUNT 4.21 10*6/uL 4.6 - 6.2 06/07 L Specimen Type: BLOOD No comment entered. Ordering Provider: KIRK CARTER Report Released Date/Time: August 24, 2023 04:05 PM Reporting Lab: [place] [address] Performing Lab: [address] CBC/PLT HEMOGLOBIN [MASS/VOLU ME] IN BLOOD 11.7 g/dL 14.0 - 18.0 06/07 L Specimen Type: BLOOD No comment entered. Ordering Provider: KIRK CARTER Report Released Date/Time: August 24, 2023 04:05 PM Reporting Lab: [place] [address] Performing Lab: [address] CBC/PLT HEMATOCRIT [VOLUME FRACTION] OF BLOOD BY AUTOMATED COUNT 33.6 42.0 - 52.0 06/07 L Specimen Type: BLOOD No comment entered. Ordering Provider: KIRK CARTER Report Released Date/Time: August 24, 2023 04:05 PM Reporting Lab: [address] [address] Performing Lab: [address] [address] [facility] CBC/PLT MCV [ENTITIC VOLUME] BY AUTOMATED COUNT 79.8 fL 80.0 - 94.0 06/07 L Specimen Type: BLOOD No comment entered. Ordering Provider: KIRK CARTER Report Released Date/Time: August 24, 2023 04:05 PM Reporting Lab: [address] [address] Performing Lab: [address] [address] [facility] CBC/PLT MCH [ENTITIC MASS] BY AUTOMATED COUNT 27.8 pg 27.0 - 31.0 06/07 Specimen Type: BLOOD No comment entered. Ordering Provider: KIRK CARTER Report Released Date/Time: August 24, 2023 04:05 PM Reporting Lab: [address] [address] Performing Lab: [address] [address] [facility] CBC/PLT MCHC [MASS/VOLU ME] BY AUTOMATED COUNT 34.8 g/dL 32.0 - 36.0 06/07 Specimen Type: BLOOD No comment entered. Ordering Provider: KIRK CARTER Report Released Date/Time: August 24, 2023 04:05 PM Reporting Lab: [address] [address] Performing Lab: [address] [address] [facility] CBC/PLT PLATELETS [#/VOLUME] IN BLOOD 230 10*3/uL 150 - 450 06/07 Specimen Type: BLOOD No comment entered. Ordering Provider: KIRK CARTER Report Released Date/Time: August 24, 2023 04:05 PM Reporting Lab: [address] [address] Performing Lab: [address] [address] [facility] CBC/PLT PLATELET MEAN VOLUME [ENTITIC VOLUME] IN BLOOD 10.2 fL 9.0 - 13.1 06/07 Specimen Type: BLOOD No comment entered. Ordering Provider: KIRK CARTER Report Released Date/Time: August 24, 2023 04:05 PM Reporting Lab: [place] [id number] Performing Lab: [place] [phone] [place] [address] CBC/PLT ERYTHROCYT E DISTRIBUTI ON WIDTH [ENTITIC VOLUME] BY AUTOMATED COUNT 14.9 11.0 - 16.0 06/07 Specimen Type: BLOOD No comment entered. Ordering Provider: KIRK CARTER Report Released Date/Time: August 24, 2023 04:05 PM Reporting Lab: [place] [id number] Performing Lab: [place] [phone] [facility] CBC/PLT NUCLEATED ERYTHROCYT ES/100 ERYTHROCYT ES IN BLOOD 0.0 0.0 - 0.0 06/07 Specimen Type: BLOOD No comment entered. Ordering Provider: KIRK CARTER Report Released Date/Time: August 24, 2023 04:05 PM Reporting Lab: [place] [id number] Performing Lab: [place] [phone] [place] [address] PANEL 1 CREATININE [MASS/VOLU ME] IN SERUM OR PLASMA 1.43 mg/dL 0.72 - 1.25 06/09 H Specimen Type: PLASMA Comment: Estimated Glomerular Filtration Rate (eGFR) calculated using the 2020 Chronic Kidney Disease-Epi demiology (CKD-EPI) Collaborati on creatinine equation; units of measure are mL/min/1.73 m2. Results are only valid for adults (>=18 years) whose serum creatinine is in a steady state. eGFR calculation s are not valid for patients with acute kidney injury and for patients on dialysis. Creatinine- based estimates of kidney function may also be inaccurate in patients with reduced creatinine generation due to decreased muscle mass (e.g., malnutritio n, severe hypoalbumin emia, sarcopenia, chronic neuromuscul ar disease, amputations , severe heart failure or liver disease) and in patients with increased creatinine generation due to increased muscle mass (e.g., muscle builders, anabolic steroids) or increased dietary intake. As drug clearance is proportiona l to total GFR and not GFR indexed to body surface area (BSA), in individuals with a BSA substantial ly different than 1.73 m2, drug dosing should be based on the reported eGFR value de-indexed from BSA by multiplying by the individual' s BSA and dividing by 1.73. CKD is diagnosed based on abnormaliti es of kidney structure or function, present for >3 months, with implication s for health and disease. CKD is classified and staged based on cause, eGFR and albuminuria (quantified as urine albumin to creatinine ratio). An eGFR >60 mL/min/1.73 m2 in the absence of increased urine albumin excretion or structural abnormaliti es does not represent CKD. eGFR CKD Interpretat ion (mL/min/1.7 3 m2) stage >=90 G1 Normal 60-89 G2 Mild decrease 45-59 G3A Mild to moderate decrease 30-44 G3B Moderate to severe decrease 15-29 G4 Severe decrease <15 G5 Kidney failure Ordering Provider: KIRK CARTER Report Released Date/Time: Apr 19, 2023 08:40 AM Reporting Lab: [facility] [address] [address] Performing Lab: [facility] [address] [address] [facility] PANEL 1 UREA NITROGEN [MASS/VOLU ME] IN SERUM OR PLASMA 25 mg/dL 06/09 Specimen Type: PLASMA Comment: Estimated Glomerular Filtration Rate (eGFR) calculated using the 2020 Chronic Kidney Disease-Epi demiology (CKD-EPI) Collaborati on creatinine equation; units of measure are mL/min/1.73 m2. Results are only valid for adults (>=18 years) whose serum creatinine is in a steady state. eGFR calculation s are not valid for patients with acute kidney injury and for patients on dialysis. Creatinine- based estimates of kidney function may also be inaccurate in patients with reduced creatinine generation due to decreased muscle mass (e.g., malnutritio n, severe hypoalbumin emia, sarcopenia, chronic neuromuscul ar disease, amputations , severe heart failure or liver disease) and in patients with increased creatinine generation due to increased muscle mass (e.g., muscle builders, anabolic steroids) or increased dietary intake. As drug clearance is proportiona l to total GFR and not GFR indexed to body surface area (BSA), in individuals with a BSA substantial ly different than 1.73 m2, drug dosing should be based on the reported eGFR value de-indexed from BSA by multiplying by the individual' s BSA and dividing by 1.73. CKD is diagnosed based on abnormaliti es of kidney structure or function, present for >3 months, with implication s for health and disease. CKD is classified and staged based on cause, eGFR and albuminuria (quantified as urine albumin to creatinine ratio). An eGFR >60 mL/min/1.73 m2 in the absence of increased urine albumin excretion or structural abnormaliti es does not represent CKD. eGFR CKD Interpretat ion (mL/min/1.7 3 m2) stage >=90 G1 Normal 60-89 G2 Mild decrease 45-59 G3A Mild to moderate decrease 30-44 G3B Moderate to severe decrease 15-29 G4 Severe decrease <15 G5 Kidney failure Ordering Provider: KIRK CARTER Report Released Date/Time: Apr 19, 2023 08:40 AM Reporting Lab: [facility] [address] [address] Performing Lab: [facility] [address] [address] [facility] PANEL 1 GLUCOSE [MASS/VOLU ME] IN SERUM OR PLASMA 103 mg/dL 74 - 100 06/09 H Specimen Type: PLASMA Comment: Estimated Glomerular Filtration Rate (eGFR) calculated using the 2020 Chronic Kidney Disease-Epi demiology (CKD-EPI) Collaborati on creatinine equation; units of measure are mL/min/1.73 m2. Results are only valid for adults (>=18 years) whose serum creatinine is in a steady state. eGFR calculation s are not valid for patients with acute kidney injury and for patients on dialysis. Creatinine- based estimates of kidney function may also be inaccurate in patients with reduced creatinine generation due to decreased muscle mass (e.g., malnutritio n, severe hypoalbumin emia, sarcopenia, chronic neuromuscul ar disease, amputations , severe heart failure or liver disease) and in patients with increased creatinine generation due to increased muscle mass (e.g., muscle builders, anabolic steroids) or increased dietary intake. As drug clearance is proportiona l to total GFR and not GFR indexed to body surface area (BSA), in individuals with a BSA substantial ly different than 1.73 m2, drug dosing should be based on the reported eGFR value de-indexed from BSA by multiplying by the individual' s BSA and dividing by 1.73. CKD is diagnosed based on abnormaliti es of kidney structure or function, present for >3 months, with implication s for health and disease. CKD is classified and staged based on cause, eGFR and albuminuria (quantified as urine albumin to creatinine ratio). An eGFR >60 mL/min/1.73 m2 in the absence of increased urine albumin excretion or structural abnormaliti es does not represent CKD. eGFR CKD Interpretat ion (mL/min/1.7 3 m2) stage >=90 G1 Normal 60-89 G2 Mild decrease 45-59 G3A Mild to moderate decrease 30-44 G3B Moderate to severe decrease 15-29 G4 Severe decrease <15 G5 Kidney failure Ordering Provider: KIRK CARTER Report Released Date/Time: Apr 19, 2023 08:40 AM Reporting Lab: [facility] [address] [address] Performing Lab: [facility] [address] [address] [facility] PANEL 1 SODIUM [MOLES/VOL UME] IN SERUM OR PLASMA 142 mmol/L 136 - 145 06/09 Specimen Type: PLASMA Comment: Estimated Glomerular Filtration Rate (eGFR) calculated using the 2020 Chronic Kidney Disease-Epi demiology (CKD-EPI) Collaborati on creatinine equation; units of measure are mL/min/1.73 m2. Results are only valid for adults (>=18 years) whose serum creatinine is in a steady state. eGFR calculation s are not valid for patients with acute kidney injury and for patients on dialysis. Creatinine- based estimates of kidney function may also be inaccurate in patients with reduced creatinine generation due to decreased muscle mass (e.g., malnutritio n, severe hypoalbumin emia, sarcopenia, chronic neuromuscul ar disease, amputations , severe heart failure or liver disease) and in patients with increased creatinine generation due to increased muscle mass (e.g., muscle builders, anabolic steroids) or increased dietary intake. As drug clearance is proportiona l to total GFR and not GFR indexed to body surface area (BSA), in individuals with a BSA substantial ly different than 1.73 m2, drug dosing should be based on the reported eGFR value de-indexed from BSA by multiplying by the individual' s BSA and dividing by 1.73. CKD is diagnosed based on abnormaliti es of kidney structure or function, present for >3 months, with implication s for health and disease. CKD is classified and staged based on cause, eGFR and albuminuria (quantified as urine albumin to creatinine ratio). An eGFR >60 mL/min/1.73 m2 in the absence of increased urine albumin excretion or structural abnormaliti es does not represent CKD. eGFR CKD Interpretat ion (mL/min/1.7 3 m2) stage >=90 G1 Normal 60-89 G2 Mild decrease 45-59 G3A Mild to moderate decrease 30-44 G3B Moderate to severe decrease 15-29 G4 Severe decrease <15 G5 Kidney failure Ordering Provider: KIRK CARTER Report Released Date/Time: Apr 19, 2023 08:40 AM Reporting Lab: [facility] [address] [facility] [address] Performing Lab: [facility] [address] [facility] [address] [facility] PANEL 1 POTASSIUM [MOLES/VOL UME] IN SERUM OR PLASMA 3.6 mmol/L 3.5 - 5.1 06/09 Specimen Type: PLASMA Comment: Estimated Glomerular Filtration Rate (eGFR) calculated using the 2020 Chronic Kidney Disease-Epi demiology (CKD-EPI) Collaborati on creatinine equation; units of measure are mL/min/1.73 m2. Results are only valid for adults (>=18 years) whose serum creatinine is in a steady state. eGFR calculation s are not valid for patients with acute kidney injury and for patients on dialysis. Creatinine- based estimates of kidney function may also be inaccurate in patients with reduced creatinine generation due to decreased muscle mass (e.g., malnutritio n, severe hypoalbumin emia, sarcopenia, chronic neuromuscul ar disease, amputations , severe heart failure or liver disease) and in patients with increased creatinine generation due to increased muscle mass (e.g., muscle builders, anabolic steroids) or increased dietary intake. As drug clearance is proportiona l to total GFR and not GFR indexed to body surface area (BSA), in individuals with a BSA substantial ly different than 1.73 m2, drug dosing should be based on the reported eGFR value de-indexed from BSA by multiplying by the individual' s BSA and dividing by 1.73. CKD is diagnosed based on abnormaliti es of kidney structure or function, present for >3 months, with implication s for health and disease. CKD is classified and staged based on cause, eGFR and albuminuria (quantified as urine albumin to creatinine ratio). An eGFR >60 mL/min/1.73 m2 in the absence of increased urine albumin excretion or structural abnormaliti es does not represent CKD. eGFR CKD Interpretat ion (mL/min/1.7 3 m2) stage >=90 G1 Normal 60-89 G2 Mild decrease 45-59 G3A Mild to moderate decrease 30-44 G3B Moderate to severe decrease 15-29 G4 Severe decrease <15 G5 Kidney failure Ordering Provider: KIRK CARTER Report Released Date/Time: Apr 19, 2023 08:40 AM Reporting Lab: [facility] [address] [facility] [address] Performing Lab: [facility] [address] [facility] [address] [facility] PANEL 1 CHLORIDE [MOLES/VOL UME] IN SERUM OR PLASMA 103 mmol/L 98 - 107 06/09 Specimen Type: PLASMA Comment: Estimated Glomerular Filtration Rate (eGFR) calculated using the 2020 Chronic Kidney Disease-Epi demiology (CKD-EPI) Collaborati on creatinine equation; units of measure are mL/min/1.73 m2. Results are only valid for adults (>=18 years) whose serum creatinine is in a steady state. eGFR calculation s are not valid for patients with acute kidney injury and for patients on dialysis. Creatinine- based estimates of kidney function may also be inaccurate in patients with reduced creatinine generation due to decreased muscle mass (e.g., malnutritio n, severe hypoalbumin emia, sarcopenia, chronic neuromuscul ar disease, amputations , severe heart failure or liver disease) and in patients with increased creatinine generation due to increased muscle mass (e.g., muscle builders, anabolic steroids) or increased dietary intake. As drug clearance is proportiona l to total GFR and not GFR indexed to body surface area (BSA), in individuals with a BSA substantial ly different than 1.73 m2, drug dosing should be based on the reported eGFR value de-indexed from BSA by multiplying by the individual' s BSA and dividing by 1.73. CKD is diagnosed based on abnormaliti es of kidney structure or function, present for >3 months, with implication s for health and disease. CKD is classified and staged based on cause, eGFR and albuminuria (quantified as urine albumin to creatinine ratio). An eGFR >60 mL/min/1.73 m2 in the absence of increased urine albumin excretion or structural abnormaliti es does not represent CKD. eGFR CKD Interpretat ion (mL/min/1.7 3 m2) stage >=90 G1 Normal 60-89 G2 Mild decrease 45-59 G3A Mild to moderate decrease 30-44 G3B Moderate to severe decrease 15-29 G4 Severe decrease <15 G5 Kidney failure Ordering Provider: KIRK CARTER Report Released Date/Time: Apr 19, 2023 08:40 AM Reporting Lab: [facility] [address] [address] Performing Lab: [facility] [address] [address] [facility] PANEL 1 CARBON DIOXIDE, TOTAL [MOLES/VOL UME] IN SERUM OR PLASMA 25 mmol/L 06/09 Specimen Type: PLASMA Comment: Estimated Glomerular Filtration Rate (eGFR) calculated using the 2020 Chronic Kidney Disease-Epi demiology (CKD-EPI) Collaborati on creatinine equation; units of measure are mL/min/1.73 m2. Results are only valid for adults (>=18 years) whose serum creatinine is in a steady state. eGFR calculation s are not valid for patients with acute kidney injury and for patients on dialysis. Creatinine- based estimates of kidney function may also be inaccurate in patients with reduced creatinine generation due to decreased muscle mass (e.g., malnutritio n, severe hypoalbumin emia, sarcopenia, chronic neuromuscul ar disease, amputations , severe heart failure or liver disease) and in patients with increased creatinine generation due to increased muscle mass (e.g., muscle builders, anabolic steroids) or increased dietary intake. As drug clearance is proportiona l to total GFR and not GFR indexed to body surface area (BSA), in individuals with a BSA substantial ly different than 1.73 m2, drug dosing should be based on the reported eGFR value de-indexed from BSA by multiplying by the individual' s BSA and dividing by 1.73. CKD is diagnosed based on abnormaliti es of kidney structure or function, present for >3 months, with implication s for health and disease. CKD is classified and staged based on cause, eGFR and albuminuria (quantified as urine albumin to creatinine ratio). An eGFR >60 mL/min/1.73 m2 in the absence of increased urine albumin excretion or structural abnormaliti es does not represent CKD. eGFR CKD Interpretat ion (mL/min/1.7 3 m2) stage >=90 G1 Normal 60-89 G2 Mild decrease 45-59 G3A Mild to moderate decrease 30-44 G3B Moderate to severe decrease 15-29 G4 Severe decrease <15 G5 Kidney failure Ordering Provider: KIRK CARTER Report Released Date/Time: Apr 19, 2023 08:40 AM Reporting Lab: [facility] [address] [address] Performing Lab: [facility] [address] [address] [facility] PANEL 1 CALCIUM [MASS/VOLU ME] IN SERUM OR PLASMA 9.6 mg/dL 8.4 - 10.2 06/09 Specimen Type: PLASMA Comment: Estimated Glomerular Filtration Rate (eGFR) calculated using the 2020 Chronic Kidney Disease-Epi demiology (CKD-EPI) Collaborati on creatinine equation; units of measure are mL/min/1.73 m2. Results are only valid for adults (>=18 years) whose serum creatinine is in a steady state. eGFR calculation s are not valid for patients with acute kidney injury and for patients on dialysis. Creatinine- based estimates of kidney function may also be inaccurate in patients with reduced creatinine generation due to decreased muscle mass (e.g., malnutritio n, severe hypoalbumin emia, sarcopenia, chronic neuromuscul ar disease, amputations , severe heart failure or liver disease) and in patients with increased creatinine generation due to increased muscle mass (e.g., muscle builders, anabolic steroids) or increased dietary intake. As drug clearance is proportiona l to total GFR and not GFR indexed to body surface area (BSA), in individuals with a BSA substantial ly different than 1.73 m2, drug dosing should be based on the reported eGFR value de-indexed from BSA by multiplying by the individual' s BSA and dividing by 1.73. CKD is diagnosed based on abnormaliti es of kidney structure or function, present for >3 months, with implication s for health and disease. CKD is classified and staged based on cause, eGFR and albuminuria (quantified as urine albumin to creatinine ratio). An eGFR >60 mL/min/1.73 m2 in the absence of increased urine albumin excretion or structural abnormaliti es does not represent CKD. eGFR CKD Interpretat ion (mL/min/1.7 3 m2) stage >=90 G1 Normal 60-89 G2 Mild decrease 45-59 G3A Mild to moderate decrease 30-44 G3B Moderate to severe decrease 15-29 G4 Severe decrease <15 G5 Kidney failure Ordering Provider: KIRK CARTER Report Released Date/Time: Apr 19, 2023 08:40 AM Reporting Lab: [facility] [address] [address] Performing Lab: [facility] [address] [address] [facility] PANEL 1 ANION GAP 3 IN SERUM OR PLASMA 14 meq/L 3 - 19 06/09 Specimen Type: PLASMA Comment: Estimated Glomerular Filtration Rate (eGFR) calculated using the 2020 Chronic Kidney Disease-Epi demiology (CKD-EPI) Collaborati on creatinine equation; units of measure are mL/min/1.73 m2. Results are only valid for adults (>=18 years) whose serum creatinine is in a steady state. eGFR calculation s are not valid for patients with acute kidney injury and for patients on dialysis. Creatinine- based estimates of kidney function may also be inaccurate in patients with reduced creatinine generation due to decreased muscle mass (e.g., malnutritio n, severe hypoalbumin emia, sarcopenia, chronic neuromuscul ar disease, amputations , severe heart failure or liver disease) and in patients with increased creatinine generation due to increased muscle mass (e.g., muscle builders, anabolic steroids) or increased dietary intake. As drug clearance is proportiona l to total GFR and not GFR indexed to body surface area (BSA), in individuals with a BSA substantial ly different than 1.73 m2, drug dosing should be based on the reported eGFR value de-indexed from BSA by multiplying by the individual' s BSA and dividing by 1.73. CKD is diagnosed based on abnormaliti es of kidney structure or function, present for >3 months, with implication s for health and disease. CKD is classified and staged based on cause, eGFR and albuminuria (quantified as urine albumin to creatinine ratio). An eGFR >60 mL/min/1.73 m2 in the absence of increased urine albumin excretion or structural abnormaliti es does not represent CKD. eGFR CKD Interpretat ion (mL/min/1.7 3 m2) stage >=90 G1 Normal 60-89 G2 Mild decrease 45-59 G3A Mild to moderate decrease 30-44 G3B Moderate to severe decrease 15-29 G4 Severe decrease <15 G5 Kidney failure Ordering Provider: KIRK CARTER Report Released Date/Time: Apr 19, 2023 08:40 AM Reporting Lab: [facility] [address] [address] Performing Lab: [facility] [address] [address] [facility] PANEL 1 GLOMERULAR FILTRATION RATE/1.73 SQ M.PREDICTE D [VOLUME RATE/AREA] IN SERUM, PLASMA OR BLOOD BY CREATININE -BASED FORMULA (CKD-EPI 2020) 47 06/09 Specimen Type: PLASMA Comment: Estimated Glomerular Filtration Rate (eGFR) calculated using the 2020 Chronic Kidney Disease-Epi demiology (CKD-EPI) Collaborati on creatinine equation; units of measure are mL/min/1.73 m2. Results are only valid for adults (>=18 years) whose serum creatinine is in a steady state. eGFR calculation s are not valid for patients with acute kidney injury and for patients on dialysis. Creatinine- based estimates of kidney function may also be inaccurate in patients with reduced creatinine generation due to decreased muscle mass (e.g., malnutritio n, severe hypoalbumin emia, sarcopenia, chronic neuromuscul ar disease, amputations , severe heart failure or liver disease) and in patients with increased creatinine generation due to increased muscle mass (e.g., muscle builders, anabolic steroids) or increased dietary intake. As drug clearance is proportiona l to total GFR and not GFR indexed to body surface area (BSA), in individuals with a BSA substantial ly different than 1.73 m2, drug dosing should be based on the reported eGFR value de-indexed from BSA by multiplying by the individual' s BSA and dividing by 1.73. CKD is diagnosed based on abnormaliti es of kidney structure or function, present for >3 months, with implication s for health and disease. CKD is classified and staged based on cause, eGFR and albuminuria (quantified as urine albumin to creatinine ratio). An eGFR >60 mL/min/1.73 m2 in the absence of increased urine albumin excretion or structural abnormaliti es does not represent CKD. eGFR CKD Interpretat ion (mL/min/1.7 3 m2) stage >=90 G1 Normal 60-89 G2 Mild decrease 45-59 G3A Mild to moderate decrease 30-44 G3B Moderate to severe decrease 15-29 G4 Severe decrease <15 G5 Kidney failure Ordering Provider: KIRK CARTER Report Released Date/Time: Apr 19, 2023 08:40 AM Reporting Lab: [address] [address] Performing Lab: [place] [phone] [facility] CBC/PLT LEUKOCYTES [#/VOLUME] IN BLOOD BY AUTOMATED COUNT 5.3 10*3/uL 5.0 - 10.0 06/09 Specimen Type: BLOOD No comment entered. Ordering Provider: KIRK CARTER Report Released Date/Time: Apr 19, 2023 08:40 AM Reporting Lab: [address] [address] Performing Lab: [address] [address] [facility] CBC/PLT ERYTHROCYT ES [#/VOLUME] IN BLOOD BY AUTOMATED COUNT 4.63 10*6/uL 4.6 - 6.2 06/09 Specimen Type: BLOOD No comment entered. Ordering Provider: KIRK CARTER Report Released Date/Time: Apr 19, 2023 08:40 AM Reporting Lab: [address] [address] Performing Lab: [address] [address] [facility] CBC/PLT HEMOGLOBIN [MASS/VOLU ME] IN BLOOD 13.3 g/dL 14.0 - 18.0 06/09 L Specimen Type: BLOOD No comment entered. Ordering Provider: KIRK CARTER Report Released Date/Time: Apr 19, 2023 08:40 AM Reporting Lab: [address] [address] Performing Lab: [address] [address] [facility] CBC/PLT HEMATOCRIT [VOLUME FRACTION] OF BLOOD BY AUTOMATED COUNT 37.8 42.0 - 52.0 06/09 L Specimen Type: BLOOD No comment entered. Ordering Provider: KIRK CARTER Report Released Date/Time: Apr 19, 2023 08:40 AM Reporting Lab: [address] [address] Performing Lab: [address] [address] [facility] CBC/PLT MCV [ENTITIC VOLUME] BY AUTOMATED COUNT 81.6 fL 80.0 - 94.0 06/09 Specimen Type: BLOOD No comment entered. Ordering Provider: KIRK CARTER Report Released Date/Time: Apr 19, 2023 08:40 AM Reporting Lab: [address] [address] Performing Lab: [address] [phone] [place] [address] CBC/PLT MCH [ENTITIC MASS] BY AUTOMATED COUNT 28.7 pg 27.0 - 31.0 06/09 Specimen Type: BLOOD No comment entered. Ordering Provider: KIRK CARTER Report Released Date/Time: Apr 19, 2023 08:40 AM Reporting Lab: [address] [address] Performing Lab: [address] [address] [facility] CBC/PLT MCHC [MASS/VOLU ME] BY AUTOMATED COUNT 35.2 g/dL 32.0 - 36.0 06/09 Specimen Type: BLOOD No comment entered. Ordering Provider: KIRK CARTER Report Released Date/Time: Apr 19, 2023 08:40 AM Reporting Lab: [place] [phone] Performing Lab: [place] [id number] [place] [address] CBC/PLT PLATELETS [#/VOLUME] IN BLOOD 243 10*3/uL 150 - 450 06/09 Specimen Type: BLOOD No comment entered. Ordering Provider: KIRK CARTER Report Released Date/Time: Apr 19, 2023 08:40 AM Reporting Lab: [place] [address] Performing Lab: [address] CBC/PLT PLATELET MEAN VOLUME [ENTITIC VOLUME] IN BLOOD 9.8 fL 9.0 - 13.1 06/09 Specimen Type: BLOOD No comment entered. Ordering Provider: KIRK CARTER Report Released Date/Time: Apr 19, 2023 08:40 AM Reporting Lab: [place] [phone] Performing Lab: [place] [id number] [place] [address] CBC/PLT ERYTHROCYT E DISTRIBUTI ON WIDTH [ENTITIC VOLUME] BY AUTOMATED COUNT 14.1 11.0 - 16.0 06/09 Specimen Type: BLOOD No comment entered. Ordering Provider: KIRK CARTER Report Released Date/Time: Apr 19, 2023 08:40 AM Reporting Lab: [place] [phone] Performing Lab: [place] [id number] CBC/PLT NUCLEATED ERYTHROCYT ES/100 ERYTHROCYT ES IN BLOOD 0.0 0.0 - 0.0 06/09 Specimen Type: BLOOD No comment entered. Ordering Provider: KIRK CARTER Report Released Date/Time: Apr 19, 2023 08:40 AM Reporting Lab: [address] [address] Performing Lab: [address] [address] [facility] URINALYS IS WITH REFLEX TO CULTURE COLOR OF URINE Yellow 06/09 Specimen Type: URINE No comment entered. Ordering Provider: ELLE FERNANDES [facility] F Report Released Date/Time: Jun 09, 2023 07:28 AM Reporting Lab: [address] [address] Performing Lab: [address] [address] [facility] URINALYS IS WITH REFLEX TO CULTURE APPEARANCE OF URINE CLOUDY 06/09 H Specimen Type: URINE No comment entered. Ordering Provider: ELLE FERNANDES [facility] F Report Released Date/Time: Jun 09, 2023 07:28 AM Reporting Lab: [address] [address] Performing Lab: [id number] [address] [facility] URINALYS IS WITH REFLEX TO CULTURE UROBILINOG EN [MASS/VOLU ME] IN URINE BY TEST STRIP Normalmg /dL 06/09 Specimen Type: URINE No comment entered. Ordering Provider: ELLE FERNANDES [facility] F Report Released Date/Time: Jun 09, 2023 07:28 AM Reporting Lab: [address] [address] Performing Lab: [id number] [address] [facility] URINALYS IS WITH REFLEX TO CULTURE HEMOGLOBIN [PRESENCE] IN URINE BY TEST STRIP Negative 06/09 Specimen Type: URINE No comment entered. Ordering Provider: ELLE FERNANDES [facility] F Report Released Date/Time: Jun 09, 2023 07:28 AM Reporting Lab: [id number] [address] Performing Lab: [address] [address] [facility] URINALYS IS WITH REFLEX TO CULTURE BILIRUBIN. TOTAL [PRESENCE] IN URINE BY TEST STRIP Negative 06/09 Specimen Type: URINE No comment entered. Ordering Provider: ELLE FERNANDES [facility] F Report Released Date/Time: Jun 09, 2023 07:28 AM Reporting Lab: [address] [address] Performing Lab: [address] [address] [facility] URINALYS IS WITH REFLEX TO CULTURE KETONES [MASS/VOLU ME] IN URINE BY TEST STRIP Negative mg/dL 06/09 Specimen Type: URINE No comment entered. Ordering Provider: ELLE FERNANDES [facility] F Report Released Date/Time: Jun 09, 2023 07:28 AM Reporting Lab: [address] [address] Performing Lab: [place] [phone] [place] [address] URINALYS IS WITH REFLEX TO CULTURE PROTEIN [MASS/VOLU ME] IN URINE BY TEST STRIP 30 mg/dL 06/09 H Specimen Type: URINE No comment entered. Ordering Provider: ELLE FERNANDES [facility] F Report Released Date/Time: Jun 09, 2023 07:28 AM Reporting Lab: [address] [address] Performing Lab: [address] [phone] [place] [address] URINALYS IS WITH REFLEX TO CULTURE PH OF URINE BY TEST STRIP 5.5 4.5 - 8.0 06/09 Specimen Type: URINE No comment entered. Ordering Provider: ELLE FERNANDES [facility] F Report Released Date/Time: Jun 09, 2023 07:28 AM Reporting Lab: [address] [address] Performing Lab: [address] [phone] [place] [address] URINALYS IS WITH REFLEX TO CULTURE NITRITE [PRESENCE] IN URINE BY TEST STRIP Negative 06/09 Specimen Type: URINE No comment entered. Ordering Provider: ELLE FERNANDES [facility] F Report Released Date/Time: Jun 09, 2023 07:28 AM Reporting Lab: [address] [address] Performing Lab: [address] [address] [facility] URINALYS IS WITH REFLEX TO CULTURE LEUKOCYTE ESTERASE [PRESENCE] IN URINE BY TEST STRIP MODERATE 06/09 H Specimen Type: URINE No comment entered. Ordering Provider: ELLE FERNANDES [facility] F Report Released Date/Time: Jun 09, 2023 07:28 AM Reporting Lab: [address] [address] Performing Lab: [address] [address] [facility] URINALYS IS WITH REFLEX TO CULTURE SPECIFIC GRAVITY OF URINE 1.026 1.005 - 1.030 06/09 Specimen Type: URINE No comment entered. Ordering Provider: ELLE FERNANDES [facility] F Report Released Date/Time: Jun 09, 2023 07:28 AM Reporting Lab: [address] [address] Performing Lab: [address] [address] [facility] URINALYS IS WITH REFLEX TO CULTURE GLUCOSE [MASS/VOLU ME] IN URINE BY TEST STRIP Negative mg/dL 06/09 Specimen Type: URINE No comment entered. Ordering Provider: ELLE FERNANDES [facility] F Report Released Date/Time: Jun 09, 2023 07:28 AM Reporting Lab: [address] [address] Performing Lab: [address] [address] [facility] URINALYS IS WITH REFLEX TO CULTURE ERYTHROCYT ES [#/AREA] IN URINE SEDIMENT BY AUTOMATED COUNT 34 /[HPF] 0 - 3 06/09 H Specimen Type: URINE No comment entered. Ordering Provider: ELLE FERNANDES [facility] F Report Released Date/Time: Jun 09, 2023 07:28 AM Reporting Lab: [address] [address] Performing Lab: [address] [address] [facility] URINALYS IS WITH REFLEX TO CULTURE LEUKOCYTES [#/AREA] IN URINE SEDIMENT BY AUTOMATED COUNT 30 /[HPF] 0 - 3 06/09 H Specimen Type: URINE No comment entered. Ordering Provider: ELLE FERNANDES F Report Released Date/Time: Jun 09, 2023 07:28 AM Reporting Lab: [address] [address] Performing Lab: [address] [address] [facility] URINALYS IS WITH REFLEX TO CULTURE MUCUS [PRESENCE] IN URINE BY AUTOMATED Trace/[L PF] 06/09 H Specimen Type: URINE No comment entered. Ordering Provider: ELLE FERNANDES F Report Released Date/Time: Jun 09, 2023 07:28 AM Reporting Lab: [address] [address] Performing Lab: [place] [phone] [place] [address] URINALYS IS WITH REFLEX TO CULTURE EPITHELIAL CELLS.SQUA MOUS [#/AREA] IN URINE SEDIMENT BY AUTOMATED COUNT 16 /[LPF] 0 - 28 06/09 Specimen Type: URINE No comment entered. Ordering Provider: ELLE FERNANDES F Report Released Date/Time: Jun 09, 2023 07:28 AM Reporting Lab: [address] [address] Performing Lab: [address] [address] [facility] URINALYS IS WITH REFLEX TO CULTURE HYALINE CASTS [#/AREA] IN URINE SEDIMENT BY AUTOMATED COUNT 3 /[LPF] 0 - 2 06/09 H Specimen Type: URINE No comment entered. Ordering Provider: ELLE FERNANDES F Report Released Date/Time: Jun 09, 2023 07:28 AM Reporting Lab: [address] [address] Performing Lab: [address] [address] [facility] URINALYS IS WITH REFLEX TO CULTURE GRANULAR CASTS [#/AREA] IN URINE BY COMPUTER ASSISTED METHOD 3 /[LPF] 06/09 H Specimen Type: URINE No comment entered. Ordering Provider: ELLE FERNANDES F Report Released Date/Time: Jun 09, 2023 07:28 AM Reporting Lab: [address] [address] Performing Lab: [address] [address] [facility] URINALYS IS WITH REFLEX TO CULTURE CALCIUM OXALATE CRYSTALS [PRESENCE] IN URINE BY COMPUTER ASSISTED METHOD OCCASION AL/[HPF] 06/09 H Specimen Type: URINE No comment entered. Ordering Provider: ELLE FERNANDES [facility] F Report Released Date/Time: Jun 09, 2023 07:28 AM Reporting Lab: [address] [address] Performing Lab: [address] [address] [facility] Vital Signs Combined list of inpatient and outpatient Vital Signs from [employer] of [employer] and [employer], ranging from 12 months to all on record, depending upon the facility. Vital Sign Value Date Comments Source SYSTOLIC BLOOD PRESSURE 132 10/12/2024 13:20:00 [facility] DIASTOLIC BLOOD PRESSURE 72 10/12/2024 13:20:00 [facility] PAIN 99 10/12/2024 13:20:00 [facility] TEMPERATURE 98.2 10/12/2024 13:20:00 [facility] PULSE 70 10/12/2024 13:20:00 [facility] RESPIRATION 16 10/12/2024 13:20:00 [facility] SYSTOLIC BLOOD PRESSURE 120 09/18/2024 14:00:00 [facility] DIASTOLIC BLOOD PRESSURE 68 09/18/2024 14:00:00 [facility] PULSE OXIMETRY 96 09/18/2024 14:00:00 [facility] PA[facility] 0 09/18/2024 14:00:00 [facility] TEMPERATURE 97.8 09/18/2024 14:00:00 [place] NGTON [facility] PULSE 62 09/18/2024 14:00:00 [place] [facility] RESPIRATION 16 09/18/2024 14:00:00 [place] SC[place] [facility] SYSTOLIC BLOOD PRESSURE 130 08/27/2024 10:30:00 [place] [facility] DIASTOLIC BLOOD PRESSURE 68 08/27/2024 10:30:00 [place] [facility] PAIN 0 08/27/2024 10:30:00 [place] [facility] TEMPERATURE 98.2 08/27/2024 10:30:00 [place] [facility] [facility] PULSE 66 08/27/2024 10:30:00 [place] [facility] RESPIRATION 18 08/27/2024 10:30:00 [place] [facility] SYSTOLIC BLOOD PRESSURE 128 08/16/2024 09:30:00 [place] [facility] DIASTOLIC BLOOD PRESSURE 62 08/16/2024 09:30:00 [place] [facility] PAIN 99 08/16/2024 09:30:00 [place] [facility] TEMPERATURE 98.2 08/16/2024 09:30:00 [place] SC[place] [facility] PULSE 68 08/16/2024 09:30:00 [place] [facility] RESPIRATION 16 08/16/2024 09:30:00 [place] CHAVEZ [facility] SYSTOLIC BLOOD PRESSURE 136 08/02/2024 11:45:00 [place] [facility] DIASTOLIC BLOOD PRESSURE 78 08/02/2024 11:45:00 [place] [facility] PAIN 99 08/02/2024 11:45:00 [place] [facility] TEMPERATURE 97.3 08/02/2024 11:45:00 TODD NGERNST [facility] PULSE 70 08/02/2024 11:45:00 [place] [facility] RESPIRATION 16 08/02/2024 11:45:00 TOD[place] NGERNST [facility] Encounters Combined list of: 1) Encounters from [facility] Affairs facilities going backup to the last 18 months, not all [place] inpatient encounters are included; 2) Encounters from the Department of Defense facilities going backup to 280 months. 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 FUCHS G,SUSI S 05/06 [place] [facility] Outpatient Encounter [id number] Diagnos is: ICD-10- CM Z87.898 Persona l history of other specifi ed conditi ons [place] D 05/10 [place] [facility] MED NUTRITION INDIV SUBSEQ [id number] Diagnos is: ICD-10- CM 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 LILIYA Bansal 05/11 [place] [facility] HHS/HOSPIC E OF RN MADI 15 MIN [id number] Diagnos is: ICD-10- CM 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 Jose Guadalupe FERNANDES DITH F 05/12 [place] [facility] Outpatient Encounter [id number] 05/24 [place] [facility] HHS/HOSPIC E OF RN EA 15 MIN [id number] Diagnos is: ICD-10- CM I10 Essenti al (primar y) hyperte nsmaurice FERNANDES,E DITH F 05/30 [place] [facility] [place] [facility] HC PRO PHONE CALL 5-10 MIN [id number] [id number] Diagnos is: ICD-10- CM R68.89 Other general symptom s and signs DOM,E DITH F 06/08 [place] [facility] [place] HHS/HOSPIC E OF RN EA 15 MIN [id number] [id number] 72 Diagnos is: ICD-10- CM 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 FERNANDES,E DITH F 06/09 [place] [facility] [place] [facility] HHS/HOSPIC E OF RN EA 15 MIN [id number] Diagnos is: ICD-10- CM 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 DOM,E DITH F 06/15 [place] [facility] [place] [facility] [facility] HHS/HOSPIC E OF RN EA 15 MIN [id number] Diagnos is: ICD-10- CM I10 Essenti al (primar y) hyperte dorina FERNANDES,E DITH F 06/26 [place] [facility] Outpatient [facility]counter [id number] 03 07/05 [place] [facility] [place] [facility] HC PRO PHONE CALL 5-10 MIN [id number] Diagnos is: ICD-10- CM 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 Outpatient Encounter [id number] Diagnos is: ICD-10- CM I10 Essenti al (primar y) hyperte COLT Osborne 07/11 [place] [facility] Outpatient Encounter [id number] VONDA VANEGAS 07/12 [place] [facility] CASE MANAGEMENT [id number] [id number] Diagnos is: ICD-10- CM Z87.898 Persona l history of other specifi ed conditi ons [place] 07/20 [place] HHS/HOSPIC E OF RN EA 15 MIN [id number] 77 Diagnos is: ICD-10- CM I10 Essenti al (primar y) hyperte dorina FERNANDESE DITH F 07/20 [place] [facility] HHS/HOSPIC E OF RN EA 15 MIN [id number] Diagnos is: ICD-10- CM I10 Essenti al (primar y) hyperte dorina FERNANDESE DITH F 08/03 [place] [facility] Outpatient Encounter [id number] 45 08/04 [place] 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 JEFFY CARTER K 08/22 [place] [facility] HHS/HOSPIC E OF RN EA 15 MIN [id number] [id number] 66 Diagnos is: ICD-10- CM 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 FERNANDES,E DITH F 08/30 [place] [facility] Outpatient Encounter [id number] 45 09/14 [place] [facility] HHS/HOSPIC E OF RN EA 15 MIN [id number] [id number] 69 Diagnos is: ICD-10- CM 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 Outpatient Encounter [id number] Diagnos is: ICD-10- CM I10 Essenti al (primar y) hypertCOLT Maradiaga R K 10/03 [place] [facility] H[facility]HOSPIC E OF RN EA 15 MIN 70392-2.59 [id number] 25 Diagnos is: ICD-10- CM I10 Essenti al (primar y) hyperte dorina FERNANDES,E DITH F 10/17 [place] [facility] Outpatient Encounter [id number] 45 10/18 [place] [facility] HC PRO PHONE CALL 11-20 MIN [id number] [id number] 61 Diagnos is: ICD-10- CM Z87.898 Persona l history of other specifi ed conditi ons MISSY,CO NNIE D 10/18 [place] [facility] HHS/HOSPIC E OF RN EA 15 MIN [id number] [id number] 85 Diagnos is: ICD-10- CM I10 Essenti al (primar y) hyperte dorina FERNANDES,E DITH F 11/03 [place] [facility] HC PRO PHONE CALL 5-10 MIN [id number] [id number] 56 Diagnos is: ICD-10- CM Z87.898 Persona l history of other specifi ed conditi ons MISSY,CO NNIE D 11/23 [place] [facility] HHS/HOSPIC E OF RN EA 15 MIN [id number] [id number] 42 Diagnos is: ICD-10- CM I10 Essenti al (primar y) hyperte dorina FERNANDES,E DITH F 11/24 [place] [facility] Outpatient Encounter [id number] 11/28 [place] [facility] HC PRO PHONE CALL 5-10 MIN [id number] [id number] 97 Diagnos is: ICD-10- CM Z87.898 Persona l history of other specifi ed conditi ons MISSYCO NNIE D 12/04 [place] [facility] Outpatient Encounter [id number] MULUGETA URIARTE S 12/05 [place] [facility] HC PRO PHONE CALL 5-10 MIN [id number] Diagnos is: ICD-10- CM N18.32 Chronic kidney disease , stage 3b MULUGETA URIARTE S 12/05 [place] [facility] CASE MANAGEMENT [id number] [id number] 89 Diagnos is: ICD-10- CM Z87.898 Persona l history of other specifi ed conditi ons [place] NNIE D 12/06 [place] [facility] HHS/HOSPIC E OF RN EA 15 MIN [id number] [id number] 56 Diagnos is: ICD-10- CM I10 Essenti al (primar y) hyperte Jose Guadalupe Warner 12/15 [place] [facility] QNHP OL DIG ASSMT&MGMT 11-20 [id number] [id number] 02 Diagnos is: ICD-10- CM Z79.899 Other shelter (curren t) drug therapy MARQUES TAI 12/20 [place] [facility] Outpatient Encounter [id number] Diagnos is: ICD-10- CM I10 Essenti al (primar y) hyperte ST TOMEKA Reinoso 12/26 [place] [facility] Outpatient Encounter [id number] 41 12/26 [place] [facility] COMPRE OPH EXAM EST PT 1/> [id number] [id number] Diagnos is: ICD-10- CM H25.813 Combine d forms of age-rel ated catarac t, bilmanfred al JOSSE,GABY ORNELAS K 12/27 [place] 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 Outpatient Encounter [id number] 02/21 [place] [facility] HHS/HOSPIC E OF RN EA 15 MIN [id number] [id number] 79 Diagnos is: ICD-10- CM I10 Essenti al (primar y) hyperte Jose Guadalupe Warner DITH F 02/22 [place] [facility] Outpatient Encounter [id number] Diagnos is: ICD-10- CM J06.9 Acute upper respira tory infecti on, unspeci JEFFY Tracy 02/28 [place] [facility] Outpatient Encounter [id number] 56 Diagnos is: ICD-10- CM I10 Essenti al (primar y) hypertJEFFY Martinez 02/28 [place] [facility] CASE MANAGEMENT [id number] [id number] 27 Diagnos is: ICD-10- CM Z87.898 Persona l history of other specifi ed conditi ons [place] NNIE D 03/05 [place] [facility] HHS/HOSPIC E OF RN EA 15 MIN [id number] [id number] 25 Diagnos is: ICD-10- CM 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 RANDOLPH,CARLOS ALBERTO SSA 03/20 [place] [facility] [id number] 03/20 [place] [facility] Outpatient Encounter [id number] [id number] 63 03/21 [place] [facility] HHS/HOSPIC E OF RN EA 15 MIN [id number] [id number] 18 Diagnos is: ICD-10- CM I10 Essenti al (primar y) hyperte nsion DOME DITH F 03/29 [place] [facility] Outpatient Encounter [id number] 01 04/23 [place] [facility] HHS/HOSPIC E OF RN EA 15 MIN [id number] [id number] 56 Diagnos is: ICD-10- CM I10 Essenti al (primar y) hyperte Jose Guadalupe Warner DITH F 04/25 [place] [facility] PH1 ASSMT&MGMT NQHP 5-10 09586-9.59 [id number] 06 Diagnos is: ICD-10- CM I10 Essenti al (primar y) hyperte Jose Guadalupe Warner DITH F 04/30 [place] [facility] PH1 ASSMT&MGMT NQHP 5-10 [id number] [id number] 52 Diagnos is: ICD-10- CM 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 Jose Guadalupe FERNANDES DITH F 04/30 [place] [facility] HHS/HOSPIC E OF RN EA 15 MIN [id number] [id number] 86 Diagnos is: ICD-10- CM J06.9 Acute upper respira tory infecti on, unspeci fied Jose Guadalupe FERNANDES DITH F 05/01 [place] [facility] Outpatient Encounter [id number] [id number] 72 05/02 [place] 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 PH1 ASSMT&MGMT NQHP 5-10 [id number] [id number] Diagnos is: ICD-10- CM Z74.2 Need for assist at home and no house memb able to render care MULUGETA URIARTE 05/09 [place] 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 Outpatient Encounter [id number] 06/07 [place] 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 Outpatient Encounter [id number] [id number] 34 06/13 [place] [facility] HHS/HOSPIC E OF RN EA 15 MIN [id number] [id number] 72 Diagnos is: ICD-10- CM I10 Maxenti al (primar y) hyperte dorina FERNANDES,E DITH F 06/18 [place] [facility] HHS/HOSPIC E OF RN EA 15 MIN [id number] [id number] Diagnos is: ICD-10- CM I10 Essenti al (primar y) hyperte dorina FERNANDES,E DITH F 06/20 [place] [facility] Outpatient Encounter [id number] [id number] 10 06/21 [place] [facility] Outpatient Encounter [id number] [id number] 06/22 [place] 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 [place] NNCANDIDA D 07/02 [place] [facility] [place] [facility] HHS/HOSPIC E OF RN EA 15 MIN [id number] [id number] Diagnos is: ICD-10- CM I10 Essenti al (primar y) hyperte nsmaurice FERNANDES,E DITH F 07/06 [place] [facility] MED NUTRITION INDIV SUBSEQ [id number] [id number] Diagnos is: ICD-10- CM 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 itLILIYA Meier C 07/18 [place] [facility] [address] [facility] HHS/HOSPIC E OF RN EA 15 MIN 07852-2.59 [id number] 74 Diagnos is: ICD-10- CM 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 DOM,E DITH F 07/19 [place] PH1 ASSMT&MGMT NQHP 5-10 44213-3.59 [id number] 07 Diagnos is: ICD-10- CM Z74.1 Need for assista nce with persona SU Kwan D 07/19 [place] [facility] [place] [facility] Outpatient Encounter [id number] [id number] 87 07/19 [place] [facility] [facility] HHS/HOSPIC E OF RN EA 15 MIN 47752-5.59 [id number] 25 Diagnos is: ICD-10- CM I10 Essenti al (primar y) hyperte nsmaurice FERNANDES,E DITH F 07/23 [place] [facility] [address] [facility] Outpatient Encounter [id number] [id number] 57 04/11 /2025 [place] [facility] Outpatient Encounter [id number] [id number] 26 07[facility]30 [place] HHS/HOSPIC E OF RN EA 15 MIN [id number] [id number] 53 Diagnos is: ICD-10- CM 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 Outpatient Encounter [id number] MULUGETA URIARTE S 07/31 [place] [facility] Outpatient Encounter [id number] 08/01 [place] 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 Outpatient Encounter [id number] 08/14 [place] 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 HHS/HOSPIC E OF RN EA 15 MIN [id number] Diagnos is: ICD-10- CM I10 Essenti al (primar y) hyperte nsion FERNANDES,E DITH F 08/16 [place] [facility] HHS/HOSPIC E OF RN EA 15 MIN [id number] Diagnos is: ICD-10- CM I10 Essenti al (primar y) hyperte nsion FERNANDES,E DITH F 08/27 [place] NQHP OL DIG ASSMT&MGMT 21+ [id number] Diagnos is: ICD-10- CM Z79.899 Other shelter (curren t) drug therapy MARQUES TAI I L 08/29 [place] Outpatient Encounter [id number] 09/03 [place] [facility] Outpatient Encounter [id number] 09/04 [place] [facility] Outpatient Encounter [id number] Diagnos is: ICD-10- CM I10 Essenti al (primar y) hyperte nsion RANDOLPHCARLOS ALBERTO SSA 09/04 [place] 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 Social History Type Response Date Comment Sourc e Tobacco smoking status NHIS CO-TOBACCO NEVER USED 10/18/2023 [facility] History of tobacco use CO-TOBACCO NEVER USED 07/23/2021 [facility] History of tobacco use CO-TOBACCO NEVER USED 06/23/2020 [facility] of [facility] OR MORE 09/20/2018 [facility] History of tobacco use V9 QUIT TOBACCO >7 YEARS AGO 11/14/2017 [facility] History of tobacco use V9 LIFETIME NON-USER OF TOBACCO 08/05/2016 [facility] History of tobacco use V9 QUIT TOBACCO >7 YEARS AGO 01/23/2015 [facility] History of tobacco use V9 QUIT TOBACCO >7 YEARS AGO 01/23/2014 [facility] History of tobacco use V9 QUIT TOBACCO >7 YEARS AGO 11/22/2012 [facility] History of tobacco use V9 QUIT TOBACCO >7 YEARS AGO 09/27/2011 [facility] History of tobacco use V9 QUIT TOBACCO >7 YEARS AGO 09/10/2010 [facility] History of tobacco use V9 QUIT TOBACCO >7 YEARS AGO 11/11/2009 [facility] History of tobacco use V9 QUIT TOBACCO >7 YEARS AGO 07/07/2006 [facility] History of tobacco use HF V9 CURRENT NON-SMOKER 07/07/2005 [facility] History of tobacco use HF V9 LIFETIME NON-SMOKER 01/16/2004 [facility] History of tobacco use HF V9 CURRENT NON-SMOKER 01/14/2003 [facility] History of tobacco use HF V9 CURRENT NON-SMOKER 11/01/2001 [facility] History of tobacco use HF V9 CURRENT NON-SMOKER 09/19/2000 quit 1982 [facility] Advance Directives List of completed, amended, or rescinded Advance Directives on record at [facility] facilities. An actual copy of the Directive is not included. Date Advance Directive Provider Source 02/02/2021 ADVANCE DIRECTIVE DISCUSSION VANE DAWKINS [facility] 02/13/2020 ADVANCE DIRECTIVE DISCUSSION VANE DAWKINS [facility]
[2024-10-26 16:38] VITALS: BMI 27.1
--- NOTE | 2024-10-26 16:39 | CT_ITS ---
PROCEDURE INFORMATION: Exam: CT Head Without Contrast Exam date and time: 10/26/2024 4:40 PM Age: 89 years old Clinical indication: Stroke-like symptoms; Other: Stroke rule out TECHNIQUE: Imaging protocol: Computed tomography of the head without contrast. Radiation optimization: All CT scans at this facility use at least one of these dose optimization techniques: automated exposure control; mA and/or kV adjustment per patient size (includes targeted exams where dose is matched to clinical indication); or iterative reconstruction. Other technique: STROKE PROTOCOL was implemented. COMPARISON: CT HEAD/BRAIN WO CON 06/06/2024 10:16 AM FINDINGS: Limitations: The study is limited by patient positioning. Brain: There is a region of hypodensity present in the posterior aspect of the right frontal lobe and subinsular region which is new since the previous exam and suspicious for ischemia. There is no hemorrhage. No midline shift. Involutional changes of the brain are similar. Cerebral ventricles: No significant ventriculomegaly. Paranasal sinuses: Arrested pneumatization of the sphenoid sinus changes unchanged. No significant paranasal sinus inflammation. Mastoid air cells: Mastoid air cells are well-aerated. Orbital cavities: Visualized portions of the orbits are unremarkable. Bones: No acute osseous abnormality. Soft tissues: Soft tissues are unremarkable as visualized. IMPRESSION: There is a new region of hypodensity in the posterior right frontal lobe and subinsular region which is suspicious for ischemia potentially acute. MRI brain follow-up recommended. No mass effect or acute hemorrhage. ASSESSMENT: ASPECTS ([place] Stroke Program Early CT Score) is 7.
--- NOTE | 2024-10-26 16:40 | CT_ITS ---
PROCEDURE INFORMATION: Exam: CTA Head With Contrast, Arteriography Exam date and time: 10/26/2024 4:44 PM Age: 89 years old Clinical indication: Stroke-like symptoms; Other: Stroke rule out TECHNIQUE: Imaging protocol: Computed tomographic angiography of the head with contrast. Exam focused on the arteries. Computed tomographic angiography of the head with contrast. Exam focused on the arteries. AI vessel analysis not performed. 3D rendering (Not supervised by radiologist): MIP and/or 3D reconstructed images were created by the technologist. Radiation optimization: All CT scans at this facility use at least one of these dose optimization techniques: automated exposure control; mA and/or kV adjustment per patient size (includes targeted exams where dose is matched to clinical indication); or iterative reconstruction. Contrast material: ISO 370; Contrast volume: 80 ml; Contrast route: INTRAVENOUS (IV); COMPARISON: CT HEAD/BRAIN WO CON 10/26/2024 4:40 PM FINDINGS: Limitations: The study is limited by patient positioning. ANTERIOR CIRCULATION: Right internal carotid artery: Atherosclerotic changes right internal carotid artery with mild stenosis. Right middle cerebral artery: Right middle cerebral artery is patent. No significant stenosis. No aneurysm. Right anterior cerebral artery: Right anterior cerebral artery is patent. No significant stenosis. No aneurysm. Anterior communicating artery: No anterior communicating artery aneurysm seen. Left internal carotid artery: Atherosclerotic changes left internal carotid artery with mild stenosis. Left middle cerebral artery: The left MCA has severe stenosis in a proximal M2 branch on series 8 image 415 without occlusion visible. Left anterior cerebral artery: Left anterior cerebral artery is patent. No significant stenosis. No aneurysm. POSTERIOR CIRCULATION: Right vertebral artery: There is mild stenosis in the right vertebral artery without occlusion. Left vertebral artery: Left vertebral artery is patent. No significant stenosis. No aneurysm. Basilar artery: The basilar artery is patent. No significant stenosis. No aneurysm. Right posterior cerebral artery: The right [employer] has anatomic variant origin. Left posterior cerebral artery: Left posterior cerebral artery is patent. No significant stenosis. No aneurysm. Veins: Visualized dural venous sinuses grossly patent on this study optimized for arterial assessment. Brain: Region of hypodensity in the posterior right frontal lobe extending to the subinsular region again present suspicious for possible ischemia. There is no significant mass effect or midline shift noted. No definite vascular malformation is seen. Cerebral ventricles: No significant ventriculomegaly. Bones/joints: No acute osseous abnormality. Soft tissues: Soft tissues are unremarkable as visualized. IMPRESSION: 1. No acute large vessel occlusion identified. 2. 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
--- NOTE | 2024-10-26 16:40 | CT_ITS ---
PROCEDURE INFORMATION: Exam: CTA Neck With Contrast Exam date and time: 10/26/2024 4:44 PM Age: 89 years old Clinical indication: Stroke-like symptoms; Other: Stroke rule out TECHNIQUE: Imaging protocol: Computed tomographic angiography of the neck with contrast. Exam focused on the cervical segments of the vasculature. 3D rendering (Not supervised by radiologist): MIP and/or 3D reconstructed images were created by the technologist. Radiation optimization: All CT scans at this facility use at least one of these dose optimization techniques: automated exposure control; mA and/or kV adjustment per patient size (includes targeted exams where dose is matched to clinical indication); or iterative reconstruction. Contrast material: ISO 370; Contrast volume: 80 ml; Contrast route: INTRAVENOUS (IV); COMPARISON: CT CERVICAL SPINE WO CON 06/06/2024 10:18 AM FINDINGS: Limitations: The study is limited by patient positioning. Right common carotid artery: The right common carotid artery is widely patent. No stenosis. Right internal carotid artery: The right internal carotid artery is patent. No stenosis by NASCET criteria. No evidence of dissection. Right external carotid artery: Right external carotid artery has no visible occlusion. Left common carotid artery: The left common carotid artery is widely patent. No stenosis. Left internal carotid artery: The left internal carotid artery is patent. No stenosis by NASCET criteria. No evidence of dissection. Left external carotid artery: Left external carotid artery has no visible occlusion. Right vertebral artery: Right vertebral artery is patent. No significant stenosis. No evidence of dissection. Left vertebral artery: Left vertebral artery is patent. No significant stenosis. No evidence of dissection. Thyroid: There is a right thyroid nodule measuring 4 mm present. Lymph nodes: Calcified mediastinal nodes suggest old granulomatous disease. Soft tissues: Soft tissues are unremarkable as visualized. Bones/joints: Degenerative bony changes. Lungs: There is a solid subpleural right upper lobe pulmonary nodule measuring 4 mm present on series 3, image 32. Esophagus: Esophageal air-fluid level present may reflect GERD. Other findings: Visualized mediastinal vasculature patent. IMPRESSION: 1. No occlusion or significant stenosis. 2. There is a solid subpleural right upper lobe pulmonary nodule measuring 4 mm present on series 3, image 32. For patients at low risk (minimal or absent history of smoking and of other known risk factors), no routine follow-up is indicated. For patients at high risk (history of smoking or of other known risk factors), consider optional CT Chest at 12 months. (Reference: Kalie) COMMENTS: Consistent with the [place] [employer]'s Incidental Findings Committee white paper (J Am Jimmie Radiol 2015): In patients aged 35 years and older with an incidental thyroid nodule equal to or greater than 1.[address], MRI or extrathyroidal US, further evaluation with dedicated thyroid US is recommended for patients with normal life expectancy and without comorbidities. For smaller nodules without suspicious features, no further evaluation or follow up is recommended. REFERENCES: 1. Kalie Almeida, et al. Guidelines for Management of Incidental Pulmonary Nodules Detected on CT Images: From the Fleischner Society 2017. Radiology. 2017;284(1):228-243. 2. NASCET CRITERIA. The degree of stenosis in the cervical segment of the internal carotid artery is based on NASCET criteria. Normal is no stenosis. Mild is less than 50% stenosis. Moderate is 50-69% stenosis. Severe is 70% to 99% stenosis. Total occlusion is no detectable patent lumen.
--- NOTE | 2024-10-26 16:44 | HMH.EDGENADL ---
Discharge Plan Disposition Patient Disposition: Home, Self-Care Prescriptions Prescriptions: No Action polyethylene glycol 3350 [Miralax] 17 gram/dose powder 17 g PO DAILY PRN (Reason: constipation) Qty: 510 0RF sennosides 8.6 mg tablet 8.6 mg PO DAILY Qty: 30 0RF levofloxacin 750 mg tablet 750 mg PO DAILY 7 Days Qty: 7 0RF tamsulosin [Flomax] 0.4 mg Capsule 0.8 mg PO HS carvedilol 6.25 mg Tablet 6.25 mg PO BID Qty: 60 0RF potassium chloride 20 mEq Tablet,Er Particles/Crystals 20 meq PO DAILY Qty: 30 0RF amlodipine [Norvasc] 5 mg Tablet 5 mg PO DAILY Qty: 30 0RF aspirin 325 mg Tablet,Delayed Release (Dr/Ec) 325 mg PO DAILY Qty: 30 0RF finasteride [Proscar] 5 mg Tablet 5 mg PO DAILY Qty: 30 0RF diltiazem HCl 360 mg Tablet Extended Release 24 Hr 360 mg PO DAILY Qty: 30 0RF rosuvastatin [Crestor] 10 mg Tablet 5 mg PO HS Qty: 30 0RF diclofenac sodium 1 % Gel 2 g TOPICAL Q6HP PRN (Reason: Pain) Qty: 100 0RF Rx Instructions: apply to both knees as needed omeprazole 20 mg Tablet,Delayed Release (Dr/Ec) 40 mg PO BID MDD Acid rflux Qty: 30 0RF bisacodyl [Dulcolax (bisacodyl)] 10 mg suppository 10 mg NH DAILY PRN (Reason: constipation) Qty: 12 0RF amoxicillin-pot clavulanate 875-125 mg tablet 1 tab PO BID Qty: 20 0RF Referrals Follow up/Referrals: Provider,Referral, MD [Primary Care Provider, Medical] - See instructions Clinical Impressions Clinical Impression: Ischemic stroke of frontal lobe Stand Alone Forms Stand Alone Forms: Transfer Record - ED Print Language Print Language: Arabic Discharge ED Provider: Tray Chaney Adult HPI General Chief complaint: Neuro Symptoms/Deficit Stated complaint: Poss CVA Time Seen by Provider: 10/26/24 16:40 Mode of Arrival: EMS Source of Information: Patient and EMS Limitations: No Limitations History of Present Illness HPI narrative: Oumar Burnham is an 89M with unknown medical history per EMS who presents to the emergency department for concern for stroke. Per EMS, patient has been outside most of the day and has been working out doors since 8 AM. States that the neighbor found him altered and in the yard at 11 AM. When EMS arrived, they noticed left-sided facial droop, difficulty following commands. They attempted to fly the patient due to concern for acute stroke, however no helicopters were available. The patient was brought to [facility] emergency department. Patient is alert and oriented to name only. He has difficulty following commands and answers most questions with no . He has left-sided facial droop, drift of both lower extremities and will hit the bed. Patient was stroke alerted upon arrival. Patient unable to provide any additional history. Fingerstick blood glucose 120 and route with EMS. No family or other individuals at bedside to corroborate story. Related Data Home Medications ?Medication ?Instructions ?Recorded ?Confirmed tamsulosin 0.4 mg capsule (Flomax) 0.8 mg PO HS Prostate 04/06/22 06/06/24 Previous Rx's ?Medication ?Instructions ?Recorded amlodipine 5 mg tablet (Norvasc) 5 mg PO DAILY Hypertension #30 tabs 04/08/22 aspirin 325 mg tablet,delayed 325 mg PO DAILY Heart health #30 04/08/22 release tabs carvedilol 6.25 mg tablet 6.25 mg PO BID #60 tabs 04/08/22 diclofenac sodium 1 % topical gel 2 g topical Q6HP PRN Pain #100 04/08/22 grams diltiazem HCl 360 mg 360 mg PO DAILY Hypertension #30 04/08/22 tablet,extended release 24 hr tabs finasteride 5 mg tablet (Proscar) 5 mg PO DAILY Prostate #30 tabs 04/08/22 omeprazole 20 mg tablet,delayed 40 mg (2 x 20 mg) PO BID Acid 04/08/22 release reflux #30 tabs potassium chloride 20 mEq 20 meq PO DAILY #30 tabs 04/08/22 tablet,extended release(part/cryst) rosuvastatin 10 mg tablet (Crestor) 5 mg (1/2 x 10 mg) PO HS 04/08/22 Cholesterol #30 tabs bisacodyl 10 mg rectal suppository 10 mg NH DAILY PRN constipation 03/06/23 (Dulcolax (bisacodyl)) #12 ea amoxicillin 875 mg-potassium 1 tab PO BID #20 tabs 06/06/24 clavulanate 125 mg tablet levofloxacin 750 mg tablet 750 mg PO DAILY 7 days #7 tabs 07/28/24 polyethylene glycol 3350 17 17 g PO DAILY PRN constipation 07/28/24 gram/dose oral powder (Miralax) #510 grams sennosides 8.6 mg tablet 8.6 mg PO DAILY #30 tabs 07/28/24 Allergies Allergy/AdvReac Type Severity Reaction Status Date / Time No Known Allergies Allergy Verified 06/06/24 10:17 [facility] Disclaimer: The information contained in this section may have been updated after the patient was seen, as this information can be updated by other users. Medical History UTI (urinary tract infection) BPH (benign prostatic hyperplasia) Social History Smoking Status: Unknown if ever smoked alcohol intake: former substance use type: denies use current occupational status: retired and other Travel in the last 8 weeks?: None household members: none housing: apartment Have you lived/traveled outside US in past 30 days?: No Contact w/someone who lives/traveled outside US past 30 days?: No Exposure to someone with infectious disease in past 14 days?: No Do you have a fever (greater than 100.4 F or 38 C)?: No Have you tested positive for COVID-19?: No Exposed to someone with COVID-19 in past 14 days?: No Do you have a sore throat?: No Do you have a cough?: No Do you have any weakness?: No Do you have any diarrhea?: No Are you experiencing any unusual bleeding?: No Do you have any muscle aches/pain?: No Do you have any abdominal pain?: No Are you experiencing loss of taste or smell?: No Other Medical History Have you received the Flu Vaccine for this season: No Have you received the Pneumonia Vaccine: No ROS Obtained: Yes Systems reviewed as appropriate & no additional complaints except as documented Physical Exam General General appearance: alert and in no apparent distress Head Head exam: atraumatic Eye Eye exam: Present normal appearance, PERRL and EOMI ENT ENT exam: Present normal external ear exam Neck Neck exam: Present full ROM Chest Chest inspection: Present symmetric chest wall rise Respiratory Respiratory exam: Present normal lung sounds bilaterally; Absent respiratory distress, wheezes or stridor Cardiovascular Cardiovascular exam: Present regular rate and normal rhythm Abdominal Exam Abdominal exam: Present soft; Absent tenderness or guarding exam: Present deferred Extremities Exam Extremities exam: Present normal inspection Back Exam Back exam: Present normal inspection Neurological Exam Neurological exam: Present alert, oriented X3 and other (Pupils equal round and reactive, will cross midline bilaterally. Left-sided facial droop at the nasolabial fold and mouth. Intermittently following commands and other cranial nerves difficult to assess. 5 out of 5 strength in bilateral upper extremities. 5 out of 5 strength and sensation to bila) Psychiatric Psychiatric exam: Present other (Unable to assess secondary to mental status) Skin Skin exam: Present warm and dry Medical Decision Making Medical Records Screening: Per USPSTF and CDC recommendations, given the prevalence of disease in our region, it is our hospital?s policy to screen for HIV and viral Hepatitis for all patients aged 18 and over and those with ongoing risk factors. Reyes Inquiry Pt receiving controlled substance: No Vital Signs: 10/26/24 17:01 Temperature 100.3 F H Temperature Source Oral Pulse Rate [Right Radial] 92 H Respiratory Rate 16 Blood Pressure [Left Arm] 148/87 H Blood Pressure Mean [Left Arm] 107 02 Sat by Pulse Oximetry 100 Oxygen Delivery Method Room Air Lab Data Lab Results 10/26/24 17:20: Urine Color Yellow, Urine Appearance Clear, Urine pH 7.5, Ur Specific [place] 1.010, Urine Protein Negative, Urine Glucose (UA) Negative, Urine Ketones Negative, Urine Blood Negative, Urine Nitrate Negative, Urine Bilirubin Negative, Urine Urobilinogen 0.2, Ur Leukocyte Esterase 1+ A 10/26/24 : WBC 3.6 L, RBC 4.18 L, Hgb 11.7 L, Hct 32.8 L, MCV 78.5 L, MCH 28.0, MCHC 35.7 H, RDW 14.8, Plt Count 142, MPV 10.4, Neut % (Auto) 60.8, Lymph % (Auto) 26.5, [place] % (Auto) 11.0 H, Eos % (Auto) 0.8, Baso % (Auto) 0.6, Neut # (Auto) 2.2, Lymph # (Auto) 1.0, [place] # (Auto) 0.4, Eos # (Auto) 0.0, Baso # (Auto) 0.0, PT 11.9, INR 1.08, APTT 23.2, Sodium 141, Potassium 4.0, Chloride 101, Carbon Dioxide 28, Anion Gap 16.0 H, BUN 27 H, Creatinine 1.30 H, Estimated Creat Clear 42, Estimated GFR 52 L, Est GFR ( Amer) 63, Glucose 134 H, Calcium 9.3, Total Bilirubin 0.5, AST 27, ALT 21, Alkaline Phosphatase 51, Troponin I < 0.01, Total Protein 6.9, Albumin 4.2, Globulin 2.7, Albumin/Globulin Ratio 1.6, Triglycerides 60, Cholesterol 100 L, LDL Cholesterol Direct 40.21 L, VLDL Cholesterol 12, HDL Cholesterol 42, Cholesterol/HDL Ratio 2.4, Plasma/Serum Alcohol < 10 10/26/24 Unknown 10/26/24 Unknown Orders (Tests/Meds): ED MEDICATIONS Generic Name Dose Route Start Last Admin Trade Name Freq PRN Reason Stop Dose Admin Sodium Chloride 10 ml 10/26/24 16:41 Sodium Chloride 0.9% 10ml Flush Syringe IV 11/25/24 16:40 NEEDED PRN Maintain IV Site ORDERS Category Date Time Status CT angio head Stat Cat Scan 10/26/24 16:[address] angio neck Stat Cat Scan 10/26/24 16:[address] head/brain wo con Stat Cat Scan 10/26/24 16:39 Completed Activated Partial Thrombo Time Stat Lab 10/26/24 Completed Complete Blood Count Auto Diff Stat Lab 10/26/24 Completed Comprehensive Metabolic Panel Stat Lab 10/26/24 Completed Drug Screen,Urine Stat Lab 10/26/24 17:20 Received Ethyl Alcohol Stat Lab 10/26/24 Completed Lipid Panel Stat Lab 10/26/24 Completed Prothrombin Time INR Stat Lab 10/26/24 Completed Troponin I Q3H Lab 10/26/24 19:45 Ordered Troponin I Q3H Lab 10/26/24 22:45 Ordered Troponin I Stat Lab 10/26/24 Completed Urinalysis and Microscopic Stat Lab 10/26/24 17:20 Results Urine Culture Stat Micro 10/26/24 17:20 Received ECG Request Stat Y 10/26/24 16:41 Ordered ECG Data Tracing #1: I reviewed this ECG and interpreted as documented below: Atrial fibrillation with ventricular rate of [address] elevation or depression. QTc normal at 4-49 Medical Decision Narrative: Oumar Burnham is an 89M with unknown medical history per EMS who presents to the emergency department for concern for stroke. Per EMS, patient has been outside most of the day and has been working out doors since 8 AM. States that the neighbor found him altered and in the yard at 11 AM. When EMS arrived, they noticed left-sided facial droop, difficulty following commands. They attempted to fly the patient due to concern for acute stroke, however no helicopters were available. The patient was brought to [facility] emergency department. Patient is alert and oriented to name only. He has difficulty following commands and answers most questions with no . He has left-sided facial droop, drift of both lower extremities and will hit the bed. Patient was stroke alerted upon arrival. Patient unable to provide any additional history. Fingerstick blood glucose 120 and route with EMS. No family or other individuals at bedside to corroborate story. On arrival, patient mildly hypertensive with blood pressure 148/87, borderline tachycardic with a heart rate of 92 bpm, borderline febrile with temperature of 100.3 ?F. O2 sat 100% on room air. Physical exam, stated above, revealed an overall nontoxic-appearing male in no respiratory distress. He is alert and oriented only to self. He answers most questions with no . Intermittently follows commands. He has left-sided facial droop with loss of the nasolabial fold. Pupils equal round reactive to light. Extraocular movements grossly intact and will cross midline bilaterally. 5 out of 5 strength and sensation of bilateral upper extremities. Bilateral lower extremities with some drift and will hit bed on both sides. He has dysarthria. Initial NIH of 10. Patient was immediately taken to the CT scanner due to concern for acute stroke. Additional stroke labs and EKG were ordered. EKG with A-fib. Unremarkable for acute ischemia. See interpretation above Lab work mostly pending. Initial hemoglobin of 11.7, hematocrit 32.8. No leukocytosis. INR normal at 1.08. Electrolytes grossly unremarkable. Mild elevated anion gap of 16. Mild YAMINI with creatinine of 1.3 and a BUN of 27, likely prerenal. Glucose of 134. Cholesterol of 100, LDL low at 40.21. Initial troponin less than 0.01. UA with 1+ leukocyte Estrace but otherwise unremarkable. Alcohol level less than 10. Remainder of labs pending at this time. CT imaging interpreted by me personally. There is hypodensity in the left posterior frontal region concerning for an MCA stroke. No intracranial hemorrhage, mass or midline shift. No large vessel occlusion on contrasted imaging. Patient is outside the tPA window. I discussed patient's case with WILLIAM Lamont Hernandez at [facility] felt that stroke is mostly completed at this point and likely will not be a candidate for thrombectomy given no large vessel occlusion. He graciously agreed to accept the patient to their facility under the care of Dr. Nguyen. Patient will be flown via helicopter for further stroke management to [facility]. Critical Care Critical Care Time Critical Care Time: Yes Attestation: On 10/26/24, the high probability of a clinically significant, sudden or life threatening deterioration of the following system(s) required my full and direct attention, intervention and personal management. The time I documented below is in addition to time spent performing reported procedures but includes the following listed in this critical care notation. Total Time Total Critical Care Time: 35
--- NOTE | 2024-10-26 16:47 | PC.NURSE ---
pt to CT scanner with AVILA Hunt
--- NOTE | 2024-10-26 16:54 | ECG_ITS ---
APPROVED REPORT Exam: Resting ECG HR:84 bpm ECG Measurements Heart Rate 84 AXES QRSd 101 QRS 48 QT 407 T 54 QTc 449 Conclusion ATRIAL FIBRILLATION ABNORMAL RHYTHM ECG UNCONFIRMED REPORT A-fib with ventricular rate of [address] elevation or depression. QTc normal at 449. No ischemic changes Electronically signed by : STEPHEN BRIGGS, 10/26/2024 21:33:15
[2024-10-26 17:01] VITALS: BP 148/87; PULSE 92; RESP 16; TEMP 37.9; O2SAT 100; BMI 29.2
--- OUTSIDE RECORDS SUMMARY | 2024-10-26 17:02 | XMS_ITS | Encounter Summary ---
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 Date/Time Encounter Type Encounter Description Reason Pro vider Source IHE Encounter Template Text not used by [place] Advance Directives: All historical and current Section [...] Feb 02, 2021 ADVANCE DIRECTIVE DISCUSSION VANE [facility] Feb 13, 2020 ADVANCE DIRECTIVE DISCUSSION VANE [facility]WK[facility]
[2024-10-26 17:05] LABS: Hematocrit 32.8 % (42.0-52.0); Hemoglobin 11.7 g/dL (14.1-18.0); Immature Granulocytes % 0.3 %; Mean Corpuscular HGB Conc 35.7 g/dL (31.8-35.4); Mean Corpuscular Hemoglobin 28.0 pg (27.0-31.2); Mean Corpuscular Volume 78.5 fl (80-94); Nucleated Red Blood Cells % 0 %; Platelet Count 142 K/mm3 (142-424); Red Blood Count 4.18 M/mm3 (4.60-6.20); Red Cell Distribution Width-SD 42.5 fL; White Blood Count 3.6 K/mm3 (4.8-10.8)
[2024-10-26 17:15] LABS: Alanine Aminotransferase 21 U/L (12-78); Albumin Level 4.2 g/dl (3.5-5.0); Albumin/Globulin Ratio 1.6 (1.1-1.8); Alkaline Phosphatase 51 U/L (38-126); Anion Gap 16.0 mEq/L (5-15); Aspartate Amino Transferase 27 U/L (17-59); Bilirubin,Total 0.5 mg/dl (0.2-1.3); Blood Urea Nitrogen 27 mg/dl (9-20); Calcium 9.3 mg/dl (8.4-10.2); Carbon Dioxide 28 mmol/L (22.0-30.0); Chloride 101 mmol/L (98-107); Cholesterol 100 mg/dl (140-200); Creatinine Clearance Estimated 42 mL/min (50-200); Creatinine,Serum 1.30 mg/dl (0.66-1.25); Estimated Glomerular Filt Rate 52 ml/min (>60); GFR (African American) 63 ML/MIN (>60); Globulin 2.7 g/dL (1.3-3.2); Glucose 134 mg/dl (74-100); HDL Cholesterol 42 mg/dl (40-60); Potassium 4.0 mmoL/L (3.5-5.1); Sodium 141 mmol/L (136-145); Total Protein,Serum 6.9 g/dl (6.3-8.2); Triglycerides 60 mg/dl (30-150)
[2024-10-26 17:28] LABS: Troponin I < 0.01 ng/ml (0.00-0.034)
[2024-10-26 17:28] LABS: Microscopic, Urine URINE MICROSCOPIC (MICROSCOPIC)
--- NOTE | 2024-10-26 17:28 | PC.NURSE ---
[employer] accepted flight to [facility] [address] notified
[2024-10-26 17:31] LABS: Activated Partial Thrombo Time 23.2 seconds (22.8-30.6); INR 1.08 (0.9-1.1); Prothrombin Time 11.9 seconds (10.1-12.5)
[2024-10-26 17:33] LABS: Bilirubin,Urine Negative (Negative); Color,Urine YELLOW (Yellow); Glucose,Urine (UA) Negative (Negative); Ketones,Urine Negative (Negative); Leukocyte Esterase,Urine 1+ (Negative); PH,Urine 7.5 (5.0-8.5); Protein,Urine Negative (Negative); Specific Gravity, Urine 1.010 (1.005-1.030); Urobilinogen,Urine 0.2 EU/dl (0.2)
[2024-10-26 17:44] LABS: Barbiturates Screen,Urine Negative ng/ml (<200)
[2024-10-26 17:45] LABS: Benzodiazepines Screen,Urine Negative ng/ml (<200)
[2024-10-26 17:46] LABS: Amphetamine/Metha Screen,Urine Negative ng/ml (<1000)
[2024-10-26 17:47] LABS: Methadone Screen,Urine Negative ng/ml (<300)
[2024-10-26 17:48] LABS: Opiate Screen,Urine Negative ng/ml (<300)
[2024-10-26 17:49] LABS: Phencyclidine Screen,Urine Negative ng/ml (<25)
[2024-10-26 18:01] LABS: Amorphous Sediment,Urine 2+ /lpf; WBC,Urine 20-50 #/hpf (0-3)
[2024-10-26 18:02] LABS: Bacteria,Urine 2+ /lpf; Mucus,Urine 2+ /lpf
--- NOTE | 2024-10-26 18:10 | PC.NURSE ---
pt daughter called and updated on pt condition
[2024-10-26 18:13] VITALS: BP 148/92; PULSE 92; RESP 20; TEMP 36.7; O2SAT 95
== END 2024-10-26 18:15 | disposition home or self-care (01) ==
PROVIDERS: Emergency Provider Student in an Organized Health Care Education/Training Program
DX: I63.9 Cerebral infarction, unspecified (principal); R29.710 NIHSS score 10
CPT/HCPCS: 70450; 70496; 70498; 80053; 80061; 80307; 80320; 81001; 84484; 85025; 85610; 85730; 87086; 93005; 99291

== ENCOUNTER 2024-11-29 20:29 | Emergency (ER) | payer OTHER, SELFPAY ==
--- OUTSIDE RECORDS SUMMARY | 2024-10-26 19:03 | XMS_ITS | Encounter Summary ---
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 Name Role Phone Provider, No Known Primary Care Provider Unavail able Reason for Referral * MRI/CAT/PET Scan (Routine) - Pending Review Specialty Diagnoses / Procedures Referred By Contac t Referred To Contact Procedures CT Outside Head Films, Radiant Outside Referral ID Status Reason Start Date Expiration Date V isits Requested Visits Authorized [id number] Pending Review 10/30/2024 01/29/2026 1 1 * MRI/CAT/PET Scan (Routine) - Pending Review Specialty Diagnoses / Procedures Referred By Contac t Referred To Contact Procedures CT Outside Head Films, Radiant Outside Referral ID Status Reason Start Date Expiration Date V isits Requested Visits Authorized [id number] Pending Review 10/30/2024 01/29/2026 1 1 * MRI/CAT/PET Scan (Routine) - Pending Review Specialty Diagnoses / Procedures Referred By Contac t Referred To Contact Procedures CT Outside Neck Films, Radiant Outside Referral ID Status Reason Start Date Expiration Date V isits Requested Visits Authorized [id number] Pending Review 10/30/2024 01/29/2026 1 1 Reason for Visit * Auth/Cert Specialty Diagnoses / Procedures Referred By Contac t Referred To Contact Diagnoses Cerebrovascular Accident CVA Referral ID Status Reason Start Date Expiration Date Visits Re quested Visits Authorized [id number] 1 1 Encounter Details Date Type Department Care Team (Late st Contact Info) Description 10/26/2024 7:03 PM EDT - 11/02/2024 3:14 PM EDT Hospital Encounter [facility] [address]F [address] [place] [id number] Areli Nguyen MD [address] [facility] [address] [place] [address] Thien Becker MD [address] [facility] [place] [address] Saeed Monique MD [address] [place], [place] [id number] Enrique Schneider MD [address] [facility] [address] [place], [place] [id number] Esophageal dysphagia (Primary Dx); Dysphagia, unspecified type; Cognitive communication deficit Discharge Disposition: Home or Self Care Social History Tobacco Use Types Packs/Day Years Used Date Smoking Tobacco: Never Assessed [facility] Utilities Answer Date Recorded In the past 12 months has [employer], gas, oil, or water [employer] threatened to shut off services in your [...] GED or equivalent No 10/29/2024 Preferred Language Bulgarian 10/29/2024 Sex and Gender Information Value Date [...] from the original note were not included. [facility] Medicine Services DISCHARGE SUMMARY Patient Name: [...] MD 10/27/2024 10:17 PM EDT Workstation ID: [id number] EEG Result Date: 10/27/2024 History: 89 y [...] minutes on this discharge activity which included: qooz-dp-lpowxmfhwdikn with the patient, reviewing the data in the system, coordination of the care with the nursing staff as well as consultants, documentation, and entering orders. * Han Martin RN - 10/29/2024 11:16 AM EDT Images from the original note were not included. Jessica Burnham (89 y.o. 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 [phone] Looking for short term rehab Date of 1935 Social Security Number [id number] Address [address] [address] Zoroastrianism None Marital Status Single Admission Date 10/26/2024 Admission Type Urgent Admitting Provider Saeed Monique MD Attending Provider Saeed Monique MD Department, Room/Bed [facility] 3F, S318/1 Discharge Date Discharge Disposition Discharge Destination Attending Provider: Saeed Monique MD Allergies: No Known Allergies Isolation: None Infection: None Code Status: Not on file Ht: -- Wt: 68 kg (150 lb) Admission Cmt: None Principal Problem: Stroke-like symptoms [R29.90] Active Insurance as of 10/26/2024 Primary Coverage Payor Plan Insurance Group Employer/Plan Group [facility] [employer] Payor Plan Address Payor Plan Phone Number Payor Plan Fax Number Effective Dates [phone] 04/18/2024 - None Entered [facility] [id number] Subscriber Name Subscriber Date Member ID JESSICA BURNHAM 1935 [id number] 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 Sex: male : 1935 Visit Number: [id number] Admit Date: 10/26/2024 Room number: S318/1 Primary Care Physician: Provider, No Known Date of Admission: 10/26/2024 Subjective Chief complaint: Confusion History of presenting illness: This is an 89 male from prison with a past medical history of COPD, dementia, sciatica, and hypertension presenting with altered mental status. Pt found to have confusion, dysarthria, and bilateral lower extremity drift. Last known well has not been established. The patient initially presented to [facility] with vitals WNL and imaging showing CT head with changes to right MCA territory right frontal, No right MCA LVO identified. Pt would not be a Protein Specialist candidate. He has been transferred to our [...] -Continue to monitor SaO2 Thien Becker MD [facility] 10/26/24 19:21 EDT 1950 Vital Signs (last [...] hours) Saeed Monique MD at 10/28/24 1324 [facility] Medicine Services PROGRESS NOTE Patient Name: [...] MD 10/27/2024 10:17 PM EDT Workstation ID: [id number] EEG Result Date: 10/27/2024 History: 89 y [...] asa 81mg daily and lipitor 40mg qhs. 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 Total chol 138 HDL 56 LDL 72 Dysphagia --APPRENTICE PLUMBER states that solids get stuck and then coughs up and recs GI consult for possible EGD HTN --normotension BP now ok per neuro. Restart home norvasc HL Dementia --continue home meds LLE swelling --LLE duplex pending COPD without exacerbation Expected Discharge Location and Transportation: [place] Expected Discharge Expected Discharge Date: 10/29/2024; Expected [...] is lying down in the bed in [facility]. No family were at the bedside. [...] light touch throughout Coordination: no ataxia with qgmice-xw-cigu testing Gait/Station: deferred Results Review: I reviewed [...] MD 10/27/2024 10:17 PM EDT Workstation ID: [id number] -CTH wo on 10/26/2024 images were personally [...] 10/27/2024 was 72 Assessment/Plan This is 89-year-old -Russian male, right-handed with multiple vascular risk factor presented to outside hospital for altered mental status. Transferred to our facility for full stroke workup and higher level of care. Patient was not a candidate for IV thrombolytic therapy or mechanical thrombectomy as he was back to his baseline. Antiplatelet INTERVENTIONAL TECHNOLOGIST: Aspirin 325 mg Anticoagulant INTERVENTIONAL TECHNOLOGIST: None #Acute encephalopathy in the setting of [...] protocol -Activity as tolerated, fall risk precautions -PT/OT/APPRENTICE PLUMBER evaluation #Essential hypertension, complicated by uncontrolled hypertension [...] Roby Mckenzie MD, Msc, PhD Vascular Neurologist [facility] 1306 Physical Therapy Notes (most recent note) Jennifer Hendrickson PT at 10/28/24 3781 Version 1 of 1 Patient Name: Jessica [...] Bed Mobility Bed Mobility supine-sit -MAI Supine-Sit [place] (Bed Mobility) verbal cues;nonverbal cues (demo/gesture);minimum assist (75% patient effort) -MAI Assistive Device (Bed Mobility) head of bed elevated;bed rails -MAI Comment, (Bed Mobility) Pt utilized bed rail -MAI Row Name 10/28/24 1528 Transfers Comment, (Transfers) Cues for sequencing and hand placement with FWW. -MAI Row Name 10/28/24 1528 Sit-Stand Transfer Sit-Stand [place] (Transfers) minimum assist (75% patient effort) -MAI Assistive Device (Sit-Stand Transfers) walker, front-wheeled -MAI Comment, (Sit-Stand Transfer) VCs -MAI Row Name 10/28/24 1528 Gait/Stairs (Locomotion) [place] Level (Gait) contact guard -MAI Assistive Device [...] PT) sit to supine/supine to sit -MAI [place] Level/Cues Needed (Bed Mobility Goal 1, PT) independent -MAI Time Frame (Bed Mobility Goal 1, PT) longitudinal float operator goal (LTG);10 days -MAI Row Name 10/28/241534 Transfer Goal 1 (PT) Activity/Assistive Device (Transfer Goal 1, PT) wgf-oe-hxstv/rfgss-gd-yat -MAI [place] Level/Cues Needed (Transfer Goal 1, PT) modified independence -MAI Time Frame (Transfer Goal 1, PT) short term goal (STG);5 days -MAI Row Name 10/28/241534 Gait Training Goal 1 (PT) Activity/Assistive Device (Gait Training Goal 1, PT) gait (walking locomotion);assistive device use-MAI [place] Level (Gait Training Goal 1, PT) modified independence -MAI Distance (Gait Training Goal 1, PT) 100 -MAI Time Frame (Gait Training Goal 1, PT) longitudinal float operator goal (LTG);10 days -MAI Row Name 10/28/241534 [...] Nurse Physical Therapy Education Title: PT OT APPRENTICE PLUMBER Therapies (In Progress) Topic: Physical Therapy (In [...] Description Service Date Service Provider Modifiers Qty [id number] HC-PT EVAL MOD COMPLEXITY 5 10/28/2024 Jennifer Hendrickson PT 1 PT G-Codes Outcome Measure Options: AM-PAC 6 Clicks Basic Mobility (PT) AM-PAC 6 Clicks Score (PT): 18 PT Discharge Summary Anticipated Discharge Disposition (PT): alf facility Jennifer Hendrickson PT 10/28/2024 1538 Occupational [...] d/c to SNF. Anticipated Discharge Disposition (OT): alf facility 1545 Speech Language Pathology Notes (most recent note) Sissy Lopez MS CCC-APPRENTICE PLUMBER at 10/27/24 1447 Goal Outcome Evaluation: Plan of Care Reviewed With: patient Anticipated Discharge Disposition (APPRENTICE PLUMBER): alf facility APPRENTICE PLUMBER Diagnosis: mild, cognitive-linguistic disorder (10/27/24 1300) APPRENTICE PLUMBER Swallowing Diagnosis: functional oral phase, R/O pharyngeal [...] Lopez MD - 11/02/2024 10:17 AM EDT [facility] Cardiology Inpatient Progress Note Chief Complaint/Reason for [...] been in atrial fibrillation since presentation to [facility] - GDMT: carvedilol, added losartan with elevated BP - asymptomatic, euvolemic Anticipate d/c home today. Can follow-up in 2 months. Vu Lopez MD 11/02/2024 10:17 EDT * Milka Leblanc APRN - 11/01/2024 12:40 PM EDT Images from the original note were not included. [facility] Medicine Services PROGRESS NOTE Patient Name: [...] with more conservative management at thistime. Dysphagia --APPRENTICE PLUMBER states that solids get stuck and then [...] needed [place] --lives alone. Pt of [facility]. Has caregivers help 4 days a [...] Lopez MD - 11/01/2024 10:09 AM EDT [facility] Cardiology Inpatient Progress Note Chief Complaint/Reason for [...] been in atrial fibrillation since presentation to [facility] - GDMT: carvedilol, add losartan with elevated BP - asymptomatic, euvolemic Vu Lopez MD 11/01/2024 10:09 EDT * Clark Lopez MD - 10/31/2024 4:49 PM EDT [facility] Cardiology Inpatient Progress Note Chief Complaint/Reason for [...] MD 10/31/2024 16:50 EDT * Milka Leblanc, QA INTERNSHIP - 10/31/2024 11:11 AM EDT Images from the original note were not included. [facility] Medicine Services PROGRESS NOTE Patient Name: [...] asa 81mg daily and lipitor 40mg qhs. 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 Dysphagia --APPRENTICE PLUMBER states that solids get stuck and then [...] needed [place] --lives alone. Pt of [facility]. Has caregivers help a few days a week. Dtr[place] of [place] [facility], but not interested in [facility]. Expected Discharge Location and Transportation: to [facility], following Expected Discharge Expected Discharge Date: 11/02/2024; Expected Discharge Time: VTE Prophylaxis: Mechanical VTE prophylaxis orders are present. AM-PAC 6 Clicks Score (PT): 17 (10/30/241943) CODE STATUS: There are no questions and answers to display. Milka Leblanc APRN 10/31/24 * Che Kiser APRN - 10/30/2024 9:30 AM EDT Images from the original note were not included. [facility] Medicine Services PROGRESS NOTE Patient Name: [...] asa 81mg daily and lipitor 40mg qhs. 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 Dysphagia --APPRENTICE PLUMBER states that solids get stuck and then [...] needed [place] --lives alone. Pt of [facility]. Has caregivers help a few days a week. Da/next of kin [place] SN[place]. Pref[place] or if not wants local SNF. Updated CM 10/29. Daily Care Communication Due to current limited visitation policies, an attempt will be made daily to update patient's identified best tvhuo-mo-hmxkrzu(s) Contact: Saranya Carter Relation: sherita Time of communication: 1350 Notes (if applicable): Attempted to call patient's daughter/next of kin to update on care today andalso to clarify CODE STATUS as it is not on file. She did not answer. Expected Discharge Location and Transportation: [place] (da pe[place] rehab) or somewhere local. Expected Discharge Expected Discharge Date: 10/31/2024; Expected Discharge Time: VTE Prophylaxis: Mechanical VTE prophylaxis orders are present. AM-PAC 6 Clicks Score (PT): 17 (10/30/24 1124) CODE STATUS: There are no questions and answers to display. Che Kiser, CLAUDIA 10/30/24 * Michell Carroll, QA INTERNSHIP - 10/30/2024 8:19 AM EDT [facility] Cardiology Inpatient Progress Note Chief Complaint/Reason for [...] from the original note were not included. [facility] Medicine Services PROGRESS NOTE Patient Name: [...] MD 10/27/2024 10:17 PM EDT Workstation ID: [id number] Results for orders placed during the hospital [...] asa 81mg daily and lipitor 40mg qhs. 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 Pt of [facility]. Has caregivers help a few days a week. [facility]. Updated CM. Daily Care Communication Due to current limited visitation policies, an attempt will be made daily to update patient's identified best yfvgm-iy-bhrcdvw(s) Contact: Saranya Carter Relation: sherita Time of communication: 1330 Notes (if applicable): Spoke with patient's daughter/next of kin via phone. Updated on results of EGD. Discussed past medical history as patient is a [place] patient with no history on file here. Explained patient in rate controlled A-fib and new CHF based on echo. History of these prior note per daughter. Does she feels patient would not be a good candidate for anticoagulation due to age and dementiawith falls. Agreeable to aspirin if indicated. For patient to transfer at discharge to a [place] rehab center if possible. Expected Discharge Location and Transportation: to [place] ([facility] re[facility]) or somewhere local. Expected Discharge Expected Discharge Date: 10/29/2024; Expected Discharge Time: VTE Prophylaxis: Mechanical VTE prophylaxis orders are present. AM-PAC 6 Clicks Score (PT): 16 (10/29/24 1400) CODE STATUS: There are no questions and answers to display. Che Kiser APRN 10/29/24 * Saeed Monique MD - 10/28/2024 1:24 PM EDT Images from the original note were not included. [facility] Medicine Services PROGRESS NOTE Patient Name: [...] MD 10/27/2024 10:17 PM EDT Workstation ID: [id number] EEG Result Date: 10/27/2024 History: 89 y [...] asa 81mg daily and lipitor 40mg qhs. 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 Total chol 138 HDL 56 LDL 72 Dysphagia --APPRENTICE PLUMBER states that solids get stuck and then [...] are no questions and answers to display. Seaed Monique MD 10/28/24 * Roby Mckenzie MD [...] light touch throughout Coordination: no ataxia with ojcmha-zn-pltj testing Gait/Station: deferred Results Review: I reviewed [...] MD 10/27/2024 10:17 PM EDT Workstation ID: [id number] -CTH wo on 10/26/2024 images were personally [...] 10/27/2024 was 72 Assessment/Plan This is 89-year-old -Russian male, right-handed with multiple vascular risk factor presented to outside hospital for altered mental status. Transferred to our facility for full stroke workup and higher level of care. Patient was not a candidate for IV thrombolytic therapy or mechanical thrombectomy as he was back to his baseline. Antiplatelet INTERVENTIONAL TECHNOLOGIST: Aspirin 325 mg Anticoagulant INTERVENTIONAL TECHNOLOGIST: None #Acute encephalopathy in the setting of [...] protocol -Activity as tolerated, fall risk precautions -PT/OT/APPRENTICE PLUMBER evaluation #Essential hypertension, complicated by uncontrolled hypertension [...] Roby Mckenzie MD, Msc, PhD Vascular Neurologist [facility] * Roby Mckenzie MD - 10/27/2024 2:24 PM EDT Stroke Progress Note Chief Complaint: Altered mental status Subjective Subjective Subjective: The patient is lying down in the bed in [facility]. No family were at the bedside. [...] x 2 (stated that he is in [place] at [facility]), interactive, ableto follow commands Speech: Intact Articulation CN 2-12: II - PERRLA III, IV, - EOMI VII -no gross facial asymmetry VIII - Auditory acuity intact XII - Tongue protrudes midline Motor: Patient is able to move all 4 extremities against gravity with no drift appreciated Sensory: intact light touch throughout Coordination: no ataxia with gntmal-as-mmrx testing Gait/Station: deferred Results Review: I reviewed [...] 10/27/2024 was 72 Assessment/Plan This is 89-year-old -Russian male, right-handed with multiple vascular risk factor presented to outside hospital for altered mental status. Transferred to our facility for full stroke workup and higher level of care. Patient was not a candidate for IV thrombolytic therapy or mechanical thrombectomy as he was back to his baseline. Antiplatelet INTERVENTIONAL TECHNOLOGIST: Aspirin 325 mg Anticoagulant INTERVENTIONAL TECHNOLOGIST: None #Acute encephalopathy in the setting of [...] protocol -Activity as tolerated, fall risk precautions -PT/OT/APPRENTICE PLUMBER evaluation #Essential hypertension, complicated by uncontrolled hypertension [...] Roby Mckenzie MD, Msc, PhD Vascular Neurologist [facility] * Saeed Monique MD - 10/27/2024 2:02 PM EDT Images from the original note were not included. [facility] Medicine Services PROGRESS NOTE Patient Name: [...] chol 138 HDL 56 LDL 72 Dysphagia --APPRENTICE PLUMBER states that solids get stuck and then coughs up and recs GI consult for possible EGD HTN --permissive HTN until ok per neuro HL Dementia --continue home meds LLE swelling --LLE duplex pending COPD without exacerbation Expected Discharge Location and Transportation: [place] Expected Discharge Expected Discharge Date: 10/29/2024; Expected Discharge Time: VTE Prophylaxis: Mechanical VTE prophylaxis orders are present. AM-PAC 6 Clicks Score (PT): 17 (10/27/24 0800) CODE STATUS: There are no questions and answers to display. Saeed Monique MD 10/27/24 documented in this encounter H&P Notes * Thien Becker MD - 10/26/2024 7:21 PM EDT Images from the original note were not included. [facility] Patient Identification: Name: Jessica uBrnham Age: 89 y.o. Sex: male : 1935 Visit Number: [id number] Admit Date: 10/26/2024 Room number: S318/1 Primary Care Physician: Provider, No Known Date of Admission: 10/26/2024 Subjective Chief complaint: Confusion History of presenting illness: This is an 89 male from [place] with a past medical history of COPD, dementia, sciatica, and hypertension presenting with altered mental status. Pt found to have confusion, dysarthria, and bilateral lower extremity drift. Last known well has not been established. The patient initially presented to [facility] with vitals WNL and imaging showing CT head with changes to right MCA territory right frontal, No right MCA LVO identified. Pt would not be a Protein Specialist candidate. He has been transferred to our [...] -Continue to monitor SaO2 Thien Becker MD [facility] 10/26/24 19:21 EDT documented in this encounter Consult Notes * Clark Lopez MD - 10/29/2024 2:52 PM EDTAssociated Order(s): IP CONSULT TO CARDIOLOGY [facility] Cardiology Initial Consult Note Patient Identification: Jessica Burnham 89 y.o. male 1935 [id number] Date of Consultation: 10/29/24 Reason for Consultation: atrial fibrillation, decreased EF PCP: Provider, No Known Primary mountain services manager: none Referring physician: Saeed Monique MD History of Present Illness: Jessica Burnham is a 89 y.o. with a history of HTN, MCI, BPH, GERD, CKD who was transferred to [facility] from [facility] due to concern for stroke. 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 Jessica Armstrong 89-year-old -Russian male, right- handed, with significant health diagnosis for dementia, former smoker and alcohol drinker, COPD, hypertension, hyperlipidemia, sciatica who presented to our facility as a direct admit from [facility] for stroke workup and higher level of [...] Plantar: downgoing Left Plantar: downgoing Coordination Right: Hpcclt-sz-dyce normal.Left: Kmgugm-hw-gyzo normal. Gait Unable to assess. Physical Exam [...] sodium chloride Functional Status Prior to Current Stroke/Beckham Score: 1-2 NIH Stroke Scale Time: 21:52 EDT Person Administering Scale: Roxy Jimenez APRN Interval: baseline 1a. Level of [...] Atherosclerosis intra extracranial Assessment/Plan: This is 89-year-old -Russian male, right-handed with multiple vascular risk factor presented to outside hospital for altered mental status. Transferred to our facility for full stroke workup and higher level of care. Patient was not a candidate for IV thrombolytic therapy or mechanical thrombectomy as he was back to his baseline. Antiplatelet INTERVENTIONAL TECHNOLOGIST: Aspirin 325 mg Anticoagulant INTERVENTIONAL TECHNOLOGIST: None Transient alteration of mental status in [...] pending -Activity as tolerated, fall risk precautions -PT/OT/APPRENTICE PLUMBER evaluation - Neurology stroke will continue to [...] morning, its night time. * Kristal Benavidez, CF-APPRENTICE PLUMBER - 11/01/2024 4:02 PM EDT Goal Outcome Evaluation: Plan of Care Reviewed With: patient, child Anticipated Discharge Disposition (APPRENTICE PLUMBER): alf facility Treatment Assessment (APPRENTICE PLUMBER): continued, toleration of diet, cognitive-linguistic disorder (11/01/24 1540) Plan for Continued Treatment (APPRENTICE PLUMBER): continue treatment per plan of care (11/01/24 [...] able per POC. Anticipated Discharge Disposition (PT): alf facility * Sissy Lopez MS [facility]-APPRENTICE PLUMBER - 10/30/2024 4:07 PM EDT Goal Outcome Evaluation: Plan of Care Reviewed With: patient Anticipated Discharge Disposition (APPRENTICE PLUMBER): alf facility APPRENTICE PLUMBER Diagnosis: mild, cognitive-linguistic disorder (10/30/24 1430) APPRENTICE PLUMBER Swallowing Diagnosis: functional oral phase, R/O pharyngeal dysphagia, suspected esophageal dysphagia (10/30/24 1430) Treatment Assessment (APPRENTICE PLUMBER): continued, mild, cognitive-linguistic disorder (10/30/24 1430) Treatment Assessment Comments (APPRENTICE PLUMBER): Patient tolerated trials of soft solids w/o discomfort or s/s of aspiration. EGD completed on 10/29/24 with dilation completed. Diet upgraded this date to soft chopped and thin liquids. Patient continues with mild cognitive linguistic impairment. (10/30/24 1430) Plan for Continued Treatment (APPRENTICE PLUMBER): continue treatment per plan of care (10/30/24 143) Electronically signed by Sissy Lopez MS [facility]-APPRENTICE PLUMBER at 10/30/2024 4:07 PM EDT * Yvonne Felder, PT - 10/30/2024 11:14 [...] and endurance deficits. Anticipated Discharge Disposition (PT): alf facility * aJylin Concepcion, OT - 10/30/2024 9:46 AM EDT [...] per current POC. Anticipated Discharge Disposition (OT): alf facility * Edil Franklin, PT Student - [...] upon D/C. Anticipated Discharge Disposition (PT): (P) alf facility Cosigned by Yvonne Felder, PT at [...] d/c to SNF. Anticipated Discharge Disposition (OT): alf facility * Jennifer Hendrickson, PT - 10/28/2024 2:55 PM EDT Goal [...] SNF upon DC. Anticipated Discharge Disposition (PT): alf facility, home with 08/11 care * Izabel [...] within reach safety round/check completed Taken 10/28/2024 020 by Izabel Allen RN Safety Promotion/Fall Prevention: assistive device/personal items within reach activity supervised safety round/check completed Taken 10/28/2024 0039 by Izabel Allen RN Safety Promotion/Fall Prevention: activity supervised assistive device/personal items within reach safety round/check completed Taken 10/27/2024 224 by Izabel Allen RN Safety Promotion/Fall Prevention: [...] Prevent Skin Injury Recent Flowsheet Documentation Taken 10/28/2024436 by Izabel Allen RN Body Position: supine Taken 10/28/2024207 by Izabel Allen RN Body Position: weight [...] Recent Flowsheet Documentation Taken 10/28/2024436 by Izabel Allne RN Trust Relationship/Rapport: care explained Taken 10/28/2024207 [...] confusion, dysarthria, and BLE drift. Transferred from [facility]. Today 10/27 pt is A&O x3 with [...] confusion, dysarthria, and BLE drift. Transferred from [facility]. Today 10/27 pt is A&O x3 with some mild confusion to situation. Cooperative today. SLPcleared pt for pureed diet w/ thin liquids. Tolerating diet so fare. MRI screening sheet in chart, MRI pending. EEG completed. UA drug screen-negative. * Sissy Lopez MS CCC-APPRENTICE PLUMBER - 10/27/2024 2:47 PM EDT Goal Outcome Evaluation: Plan of Care Reviewed With: patient Anticipated Discharge Disposition (APPRENTICE PLUMBER): alf facility APPRENTICE PLUMBER Diagnosis: mild, cognitive-linguistic disorder (10/27/24 1300) APPRENTICE PLUMBER Swallowing Diagnosis: functional oral phase, R/O pharyngeal [...] esophageal dilations performed at 48 and 51 [place], without mucosal disruption. >> Assess response to empiric esophageal dilation. >> Decrease PPI to once daily. Please call with questions or concerns. Mian Garcia MD Date: 10/29/2024 Time: 09:45 EDT documented in this encounter Miscellaneous Notes * Therapy Treatment Note - Kristal Benavidez, CF-APPRENTICE PLUMBER - 11/01/2024 4:04 PM EDT Images from [...] Procedure: ESOPHAGOGASTRODUODENOSCOPY; Surgeon: Mian Garcia MD; Location: [facility]; Service: Gastroenterology; Laterality: N/A; APPRENTICE PLUMBER Recommendation and Plan APPRENTICE PLUMBER Diet Recommendation: soft to chew textures, chopped, thin liquids (11/01/241539) Recommended Precautions and Strategies: upright posture during/after eating, small bites of food and sips of liquid, reflux precautions (11/01/241539) APPRENTICE PLUMBER Rec. for Method of Medication Administration: meds whole, meds crushed, with puree, as tolerated (11/01/241539) Monitor for Signs of Aspiration: notify APPRENTICE PLUMBER if any concerns (11/01/241539) Anticipated Discharge Disposition (APPRENTICE PLUMBER): home with [facility] care (11/01/241539) Therapy Frequency (Swallow): 3 days per week (11/01/241539) Predicted Duration Therapy Intervention (Days): 1 week (11/01/241539) Oral Care Recommendations: Oral Care BID/PRN, Toothbrush (11/01/241539) Daily Summary of Progress (APPRENTICE PLUMBER): progress toward functional goals as expected (11/01/241539) Treatment Assessment (APPRENTICE PLUMBER): continued, toleration of diet, cognitive-linguistic disorder (11/01/241539) Plan for Continued Treatment (APPRENTICE PLUMBER): continue treatment per plan of care (11/01/241539) SWALLOW EVALUATION (Last 72 Hours) APPRENTICE PLUMBER Adult Swallow Evaluation Row Name 11/01/24153910/30/24 1430 APPRENTICE PLUMBER Evaluation Clinical Impression APPRENTICE PLUMBER Swallowing Diagnosis -- functional oral phase;R/O pharyngeal dysphagia;suspected esophageal dysphagia - Functional Impact -- risk of aspiration/pneumonia;risk of malnutrition - Rehab Potential/Prognosis, Swallowing -- good, to achieve stated therapy goals - Swallow Criteria for Skilled Therapeutic Interventions Met -- demonstrates skilled criteria - APPRENTICE PLUMBER Treatment Clinical Impressions Treatment Assessment Comments (APPRENTICE PLUMBER) -- Patient tolerated trials of soft solids w/o discomfort or s/s of aspiration. EGD completed on 10/29/24 with dilation completed. Diet upgraded this date to soft chopped and thin liquids. Patient continues with mild cognitive linguistic impairment. - Recommendations Therapy Frequency (Swallow) 3 days per week -SM PRN;5 days per week - APPRENTICE PLUMBER Diet Recommendation soft to chew textures;chopped;thin liquids [...] Care BID/PRN;Toothbrush - Oral Care BID/PRN;Toothbrush - APPRENTICE PLUMBER Rec. for Method of Medication Administration meds whole;meds crushed;with puree;as tolerated - meds whole;meds crushed;with puree;as tolerated - Monitor for Signs of Aspiration notify APPRENTICE PLUMBER if any concerns - notify APPRENTICE PLUMBER if any concerns - Anticipated Discharge Disposition (APPRENTICE PLUMBER) home with 08/11 care -SM -- User Carmona (r) = Recorded By, (t) = Taken By, (c) = Cosigned By Initials Name Effective Dates [facility] Sissy Lopez, MS [facility]-APPRENTICE PLUMBER 05/07/24 - Kristal Tovar MS CF-APPRENTICE PLUMBER 09/20/24 - EDUCATION The patient has been educated in the following areas: Cognitive Impairment Communication Impairment Dysphagia (Swallowing Impairment). APPRENTICE PLUMBER GOALS Row Name 11/01/24 1540 10/30/24 1430 (LTG) Patient will demonstrate functional swallow for Diet Texture (Demonstrate functional swallow) soft to chew (chopped) textures - SM soft to chew (chopped) textures - Liquid viscosity (Demonstrate functional swallow) thin liquids -SM thin liquids - [place] (Demonstrate functional swallow) with minimal cues (75-90% [...] signs/symptoms of aspiration;with adequate oral prep/transit/clearance - [place] (Tolerate trials) with minimal cues (75-90% accuracy) [...] cognitive-linguistic skills for return to discharge environment [place] with minimal cues - with minimal cues - Time frame 1 week -SM 1 week -CH Progress/Outcomes continuing progress toward goal -SM continuing progress toward goal -CH APPRENTICE PLUMBER Diagnostic Treatment Patient will participate in further assessment in the following areas clarification of baseline cognitive communication status - clarification of baseline cognitive communication status - Time Frame (Diagnostic) 1 week -SM 1 week - Progress/Outcomes (Additional Goal 1, APPRENTICE PLUMBER) goal met -SM continuing progress toward goal -CH Comment (Diagnostic) Daughter present in room, attests that pt is at baseline cog fx -SM -- Word Retrieval Skills Goal 1 (APPRENTICE PLUMBER) Improve Word Retrieval Skills By Goal 1 (APPRENTICE PLUMBER) high frequency;responsive naming task;completing a divergent task;80%;with minimal cues (75-90%) - high frequency;responsive naming task;completing a divergent task;80%;with minimal cues (75-90%) - Time Frame (Word Retrieval Goal 1, APPRENTICE PLUMBER) 1 week - 1 week -CH Progress (Word Retrieval Skills Goal 1, APPRENTICE PLUMBER) -- 80%;with minimal cues (75-90%) - Progress/Outcomes (Word Retrieval Goal 1, APPRENTICE PLUMBER) goal no longer appropriate - continuing progress toward goal -CH Comment (Word Retrieval Goal 1, APPRENTICE PLUMBER) Pt at baseline cog fx -SM -- Orientation Goal 1 (APPRENTICE PLUMBER) Improve Orientation Through Goal 1 (APPRENTICE PLUMBER) demonstrating orientation to day;demonstrating orientationto month;demonstrating orientation to year;demonstrating orientation to place;demonstrating orientation to disease/impairment;use environmental aids to assist with orientation;80%;with minimal cues (75-90%) - demonstrating orientation to day;demonstrating orientation to month;demonstrating orientation to year;demonstrating orientation to place;demonstrating orientation to disease/impairment;useenvironmental aids to assist with orientation;80%;with minimal cues (75-90%) - Time Frame (Orientation Goal 1, APPRENTICE PLUMBER) 1 week -SM 1 week -CH Progress (Orientation Goal 1, APPRENTICE PLUMBER) 30%;with minimal cues (75-90%) -SM 50%;with minimal cues (75-90%) -CH Progress/Outcomes (Orientation Goal 1, APPRENTICE PLUMBER) goal no longer appropriate -SM continuing progress toward goal -CH Comment (Orientation Goal 1, APPRENTICE PLUMBER) Oriented to self and place -SM Oriented to self and grossly to place, not to time or situation -CH Memory Skills Goal 1 (APPRENTICE PLUMBER) Improve Memory Skills Through Goal 1 (APPRENTICE PLUMBER) recalling related word lists immediately;recall details of the day;90%;with minimal cues (75-90%) -SM recalling related word lists immediately;recall details of the day;90%;with minimal cues (75-90%) -CH Time Frame (Memory Skills Goal 1, APPRENTICE PLUMBER) 1 week -SM 1 week -CH Progress (Memory Skills Goal 1, APPRENTICE PLUMBER) 30%;with minimal cues (75-90%) -SM 40%;with minimal cues (75-90%) -CH Progress/Outcomes (Memory Skills Goal 1, APPRENTICE PLUMBER) goal no longer appropriate -SM continuing progress toward goal -CH Comment (Memory Skills Goal 1, APPRENTICE PLUMBER) Could not recall details of day, recalled 2/3 related words immediately -SM -- User Carmona (r) = Recorded By, (t) = Taken By, (c) = Cosigned By Initials Name Provider Type Sissy Saldana MS CCC-APPRENTICE PLUMBER Speech and Language Pathologist Kristal Tovar MS CF-APPRENTICE PLUMBER Speech and Language Pathologist Time Calculation: Time Calculation- APPRENTICE PLUMBER Row Name 11/01/24 1603 Time Calculation- APPRENTICE PLUMBER APPRENTICE PLUMBER Start Time 1540 - APPRENTICE PLUMBER Received On 11/01/24 - Untimed Charges 56941-ZH Treatment/ST Modification Prosth Nov - 49355-BZ Treatment Swallow Minutes 10 -SM Total Minutes Untimed Charges Total Minutes 37 -SM Total Minutes 37 -SM User Carmona (r) = Recorded By, (t) = Taken By, (c) = Cosigned By Initials Name Provider Type Kristal Tovar MS CF-APPRENTICE PLUMBER Speech and Language Pathologist Therapy Charges for Today Code Description Service Date Service Provider Modifiers Qty [id number] ST TREATMENT SPEECH 2 11/01/2024 Kristal Benavidez MS CF-APPRENTICE PLUMBER GN [id number] TREATMENT SWALLOW 1 11/01/2024 Kristal Benavidez, CF-APPRENTICE PLUMBER GN 1 Kristal Benavidez, CF-APPRENTICE PLUMBER 11/01/2024 * Case Management/Social Work - Dagmar Matat RN - 11/01/2024 3:22 PM EDT Continued [...] does not want patient to go to [facility] for rehab. Saranya would like [place] [facility] referrals only. Saranya states she will be at the hospital in the am and will notify CM of her choices of facilities at that time. Patient's insurance, [employer], will require a prior authorization for this rehab request. CM following. Final Discharge Disposition Code 03 - alf facility (SNF) Discharge Codes No documentation. Expected [...] Procedure: ESOPHAGOGASTRODUODENOSCOPY; Surgeon: Mian Garcia MD; Location: [facility]; Service: Gastroenterology; Laterality: N/A; General Information [...] oriented x 3 -AB Row Name 10/31/24 1501 Safety Issues/Impairments Affecting Functional Mobility Safety Issues [...] Bed Mobility Bed Mobility supine-sit;sit-supine;scooting/bridging -AB Scooting/Bridging [place] (Bed Mobility) contact guard;1 person assist -AB Supine-Sit [place] (Bed Mobility) contact guard;1 person assist -AB Sit-Supine [place] (Bed Mobility) contact guard;1 person assist -AB Assistive Device (Bed Mobility) head of bed elevated -AB Comment, (Bed Mobility) increased time/effort. -AB Row Name 10/31/24 1505 Transfers Comment, (Transfers) Cues for hand placement and sequencing. -AB Row Name 10/31/24 1505 Sit-Stand Transfer Sit-Stand [place] (Transfers) contact guard;verbal cues;1 person assist -AB Assistive Device (Sit-Stand Transfers) walker, front-wheeled -AB Row Name 10/31/24 1505 Gait/Stairs (Locomotion) [place] Level (Gait) contact guard;1 person assist;verbal cues [...] Provider Type Razia Molina, PT Physical Therapist Goals/Plan No documentation. Clinical [...] Provider Type Razia Molina, PT Physical Therapist Outcome Measures Row Name [...] or More Minutes)-5 -AB Row Name 10/31/24 151 Functional Assessment Outcome Measure Options AM-PAC 6 Clicks Basic Mobility (PT) -AB User Carmona (r) = Recorded By, (t) = Taken By, (c) = Cosigned By Initials Name Provider Type AB Razia Jurado PT Physical Therapist Physical Therapy Education Title: PT OT APPRENTICE PLUMBER Therapies (In Progress) Topic: Physical Therapy (In Progress) Point: Mobility training (Done) Learning Progress Summary Patient Acceptance, E,D, VU,NR by AB at 10/31/20245 Acceptance, E, NR by KR at 10/30/2024 [...] PT Received On 10/31/24 -AB Timed Charges 77673 - Gait Training Minutes 10 -AB 64700 - PT Therapeutic Activity Minutes 13 -AB Total Minutes Timed Charges Total Minutes 23 -AB Total Minutes 23 -AB User Carmona (r) = Recorded By, (t) = Taken By, (c) = Cosigned By Initials Name Provider Type AB Razia Jurado, PT Physical Therapist Therapy Charges for Today Code Description Service Date Service Provider Modifiers Qty [id number] HC GAIT TRAINING EA 15 MIN 10/31/2024 Razia Jurado, PT GP 1 [id number] HC PT THERAPEUTIC ACT EA 15 MIN 10/31/2024 Razia Jurado, PT GP 1 PT G-Codes Outcome Measure Options: AM-PAC 6 Clicks Basic Mobility (PT) AM-PAC 6 Clicks Score (PT): 17 AM-PAC 6 Clicks Score (OT): 17 Modified Terry Scale: 3 - Moderate disability. Requiring some help, but able to walk without assistance. PT Discharge Summary Anticipated Discharge Disposition (PT): alf facility Razia Jurado PT 10/31/2024 * Therapy Treatment Note - Sissy Lopez MS CCC-APPRENTICE PLUMBER - 10/30/2024 4:06 PM EDT Images from [...] Procedure: ESOPHAGOGASTRODUODENOSCOPY; Surgeon: Mian Garcia MD; Location: [facility]; Service: Gastroenterology; Laterality: N/A; APPRENTICE PLUMBER Recommendation and Plan APPRENTICE PLUMBER Swallowing Diagnosis: functional oral phase, R/O pharyngeal dysphagia, suspected esophageal dysphagia (10/30/241429) APPRENTICE PLUMBER Diet Recommendation: soft to chew textures, chopped, thin liquids (10/30/241429) Recommended Precautions and Strategies: upright posture during/after eating, small bites of food and sips of liquid, reflux precautions (10/30/241429) APPRENTICE PLUMBER Rec. for Method of Medication Administration: meds whole, meds crushed, with puree, as tolerated (10/30/241429) Monitor for Signs of Aspiration: notify APPRENTICE PLUMBER if any concerns (10/30/241429) Recommended Diagnostics: other (see comments) (diet tolerance) (10/30/241429) Swallow Criteria for Skilled Therapeutic Interventions Met: demonstrates skilled criteria () Anticipated Discharge Disposition (APPRENTICE PLUMBER): alf facility (10/30/241429) Rehab Potential/Prognosis, Swallowing: good, to achieve stated therapy goals (10/30/241429) Therapy Frequency (Swallow): PRN, 5 days per week (10/30/241429) Predicted Duration Therapy Intervention (Days): 1 week (10/30/241429) Oral Care Recommendations: Oral Care BID/PRN, Toothbrush (10/30/241429) Daily Summary of Progress (APPRENTICE PLUMBER): progress toward functional goals as expected (10/30/241429) Treatment Assessment (APPRENTICE PLUMBER): continued, mild, cognitive-linguistic disorder (10/30/241429) Treatment Assessment Comments (APPRENTICE PLUMBER): Patient tolerated trials of soft solids w/o discomfort or s/s of aspiration. EGD completed on 10/29/24 with dilation completed. Diet upgraded this date to soft chopped and thin liquids. Patient continues with mild cognitive linguistic impairment. (10/30/24 143) Plan for Continued Treatment (APPRENTICE PLUMBER): continue treatment per plan of care (10/30/24 143) SWALLOW EVALUATION (Last 72 Hours) APPRENTICE PLUMBER Adult Swallow Evaluation Row Name 10/30/24 143 APPRENTICE PLUMBER Evaluation Clinical Impression APPRENTICE PLUMBER Swallowing Diagnosis functional oral phase;R/O pharyngeal dysphagia;suspected esophageal dysphagia - Functional Impact risk of aspiration/pneumonia;risk of malnutrition - Rehab Potential/Prognosis, Swallowing good, to achieve stated therapy goals - Swallow Criteria for Skilled Therapeutic Interventions Met demonstrates skilled criteria - APPRENTICE PLUMBER Treatment Clinical Impressions Treatment Assessment Comments (APPRENTICE PLUMBER) Patient tolerated trials of soft solids w/o discomfort or s/s of aspiration. EGD completed on 10/29/24 with dilation completed. Diet upgraded this date to soft chopped and thin liquids. Patient continues with mild cognitive linguistic impairment. - Recommendations Therapy Frequency (Swallow) PRN;5 days per week - APPRENTICE PLUMBER Diet Recommendation soft to chew textures;chopped;thin liquids - Recommended Diagnostics other (see comments) diet tolerance - Recommended Precautions and Strategies upright posture during/after eating;small bites of food and sips of liquid;reflux precautions - Oral Care Recommendations Oral Care BID/PRN;Toothbrush - APPRENTICE PLUMBER Rec. for Method of Medication Administration meds whole;meds crushed;with puree;as tolerated - Monitor for Signs of Aspiration notify APPRENTICE PLUMBER if any concerns - User Carmona (r) = Recorded By, (t) = Taken By, (c) = Cosigned By Initials Name Effective Dates Sissy Lopez MS [facility]-APPRENTICE PLUMBER 05/07/24 - EDUCATION The patient has been educated in the following areas: Dysphagia (Swallowing Impairment) Oral Care/Hydration Modified Diet Instruction. APPRENTICE PLUMBER GOALS Row Name 10/30/241429 (LTG) Patient will demonstrate functional swallow for Diet Texture (Demonstrate functional swallow) soft to chew (chopped) textures - Liquid viscosity (Demonstrate functional swallow) thin liquids - [place] (Demonstrate functional swallow) with minimal cues (75-90% [...] signs/symptoms of aspiration;with adequate oral prep/transit/clearance - [place] (Tolerate trials) with minimal cues (75-90% accuracy) -CH Time Frame (Tolerate trials) 1 week -CH Progress/Outcomes (Tolerate trials) goal met;goal revised this date -CH Comment (Tolerate trials) goal met for pureed, diet upgraded to soft chopped and thin liquids. - Patient will demonstrate functional cognitive-linguistic skills for return to discharge environment [place] with minimal cues -CH Time frame 1 week -CH Progress/Outcomes continuing progress toward goal -CH APPRENTICE PLUMBER Diagnostic Treatment Patient will participate in further assessment in the following areas clarification of baseline cognitive communication status -CH Time Frame (Diagnostic) 1 week -CH Progress/Outcomes (Additional Goal 1, APPRENTICE PLUMBER) continuing progress toward goal - Word Retrieval Skills Goal 1 (APPRENTICE PLUMBER) Improve Word Retrieval Skills By Goal 1 (APPRENTICE PLUMBER) high frequency;responsive naming task;completing a divergent task;80%;with minimal cues (75-90%) -CH Time Frame (Word Retrieval Goal 1, APPRENTICE PLUMBER) 1 week -CH Progress (Word Retrieval Skills Goal 1, APPRENTICE PLUMBER) 80%;with minimal cues (75-90%) -CH Progress/Outcomes (Word Retrieval Goal 1, APPRENTICE PLUMBER) continuing progress toward goal -CH Orientation Goal 1 (APPRENTICE PLUMBER) Improve Orientation Through Goal 1 (APPRENTICE PLUMBER) demonstrating orientation to day;demonstrating orientationto month;demonstrating orientation to year;demonstrating orientation to place;demonstrating orientation to disease/impairment;use environmental aids to assist with orientation;80%;with minimal cues (75-90%) -CH Time Frame (Orientation Goal 1, APPRENTICE PLUMBER) 1 week -CH Progress (Orientation Goal 1, APPRENTICE PLUMBER) 50%;with minimal cues (75-90%) -CH Progress/Outcomes (Orientation Goal 1, APPRENTICE PLUMBER) continuing progress toward goal -CH Comment (Orientation Goal 1, APPRENTICE PLUMBER) Oriented to self and grossly to place, not to time or situation -CH Memory Skills Goal 1 (APPRENTICE PLUMBER) Improve Memory Skills Through Goal 1 (APPRENTICE PLUMBER) recalling related word lists immediately;recall details of the day;90%;with minimal cues (75-90%) -CH Time Frame (Memory Skills Goal 1, APPRENTICE PLUMBER) 1 week -CH Progress (Memory Skills Goal 1, APPRENTICE PLUMBER) 40%;with minimal cues (75-90%) -CH Progress/Outcomes (Memory Skills Goal 1, APPRENTICE PLUMBER) continuing progress toward goal -CH User Carmona (r) = Recorded By, (t) = Taken By, (c) = Cosigned By Initials Name Provider Type Sissy Saldana MS CCC-APPRENTICE PLUMBER Speech and Language Pathologist Time Calculation: Time Calculation- APPRENTICE PLUMBER Row Name 10/30/24 1601 Time Calculation- APPRENTICE PLUMBER APPRENTICE PLUMBER Start Time 1430 - APPRENTICE PLUMBER Received On 10/30/24 - Untimed Charges 82105-AK Treatment/ST Modification Prosth Nov 39 -CH 63049-CF Treatment Swallow Minutes 45 -CH Total Minutes Untimed Charges Total Minutes 84 -CH Total Minutes 84 -CH User Carmona (r) = Recorded By, (t) = Taken By, (c) = Cosigned By Initials Name Provider Type Sissy Saldana MS CCC-APPRENTICE PLUMBER Speech and Language Pathologist Therapy Charges for Today Code Description Service Date Service Provider Modifiers Qty [id number] HC ST TREATMENT SWALLOW 3 10/30/2024 Sissy Lopez MS CCC-APPRENTICE PLUMBER GN [id number] TREATMENT SPEECH 3 10/30/2024 Sissy Lopez MS CCC-APPRENTICE PLUMBER GN 1 Sissy Lopez MS CCC-BARBER 10/30/2024 and Acute Care - Speech Language Pathology Treatment Note [place] Patient Name: Jessica Burnham : 1935 Today's [...] Procedure: ESOPHAGOGASTRODUODENOSCOPY; Surgeon: Mian Garcia MD; Location: [facility]; Service: Gastroenterology; Laterality: N/A; APPRENTICE PLUMBER Recommendation and Plan APPRENTICE PLUMBER Diagnosis: mild, cognitive-linguistic disorder (10/30/241429) Monitor for Signs of Aspiration: notify APPRENTICE PLUMBER if any concerns (10/30/241429) Swallow Criteria for Skilled Therapeutic Interventions Met: demonstrates skilled criteria () [facility] Criteria for Skilled Therapy Interventions Met: yes (10/30/241429) Anticipated Discharge Disposition (APPRENTICE PLUMBER): alf facility (10/30/241429) Therapy Frequency (Swallow): PRN, 5 days per week (10/30/241429) Therapy Frequency (APPRENTICE PLUMBER SLC): 5 days per week (10/30/241429) Predicted Duration Therapy Intervention (Days): 1 week (10/30/241429) Oral Care Recommendations: Oral Care BID/PRN, Toothbrush (10/30/241429) Daily Summary of Progress (APPRENTICE PLUMBER): progress toward functional goals as expected (10/30/241429) Treatment Assessment (APPRENTICE PLUMBER): continued, mild, cognitive-linguistic disorder (10/30/241429) Treatment Assessment Comments (APPRENTICE PLUMBER): Patient tolerated trials of soft solids w/o discomfort or s/s of aspiration. EGD completed on 10/29/24 with dilation completed. Diet upgraded this date to soft chopped and thin liquids. Patient continues with mild cognitive linguistic impairment. (10/30/241429) Plan for Continued Treatment (APPRENTICE PLUMBER): continue treatment per plan of care (10/30/241429) APPRENTICE PLUMBER EVALUATION (Last 72 Hours) APPRENTICE PLUMBER SLC Evaluation Row Name 10/30/241429 Communication Assessment/Intervention [...] Pain Rating 0/10 - no pain -CH APPRENTICE PLUMBER Evaluation Clinical Impressions APPRENTICE PLUMBER Diagnosis mild;cognitive-linguistic disorder -CH Rehab Potential/Prognosis good -CH SLC Criteria for Skilled Therapy Interventions Met yes -CH APPRENTICE PLUMBER Treatment Clinical Impressions Treatment Assessment (APPRENTICE PLUMBER) continued;mild;cognitive-linguistic disorder - Daily Summary of Progress (APPRENTICE PLUMBER) progress toward functional goals as expected -CH Plan for Continued Treatment (APPRENTICE PLUMBER) continue treatment per plan of care -CH Care Plan Review evaluation/treatment results reviewed;care plan/treatment goals reviewed -CH Recommendations Therapy Frequency (APPRENTICE PLUMBER SLC) 5 days per week -CH Predicted Duration Therapy Intervention (Days) 1 week -CH Anticipated Discharge Disposition (APPRENTICE PLUMBER) alf facility - User Carmona (r) = Recorded By, (t) = Taken By, (c) = Cosigned By Initials Name Effective Dates Sissy Lopez, [facility]-APPRENTICE PLUMBER 05/07/24 - EDUCATION The patient has been educated in the following areas: Cognitive Impairment Communication Impairment. APPRENTICE PLUMBER GOALS Row Name 10/30/24 1430 (LTG) Patient will demonstrate functional swallow for Diet Texture (Demonstrate functional swallow) soft to chew (chopped) textures - Liquid viscosity (Demonstrate functional swallow) thin liquids - [place] (Demonstrate functional swallow) with minimal cues (75-90% [...] signs/symptoms of aspiration;with adequate oral prep/transit/clearance - [place] (Tolerate trials) with minimal cues (75-90% accuracy) - Time Frame (Tolerate trials) 1 week -CH Progress/Outcomes (Tolerate trials) goal met;goal revised this date - Comment (Tolerate trials) goal met for pureed, diet upgraded to soft chopped and thin liquids. - Patient will demonstrate functional cognitive-linguistic skills for return to discharge environment [place] with minimal cues - Time frame 1 week -CH Progress/Outcomes continuing progress toward goal - APPRENTICE PLUMBER Diagnostic Treatment Patient will participate in further assessment in the following areas clarification of baseline cognitive communication status - Time Frame (Diagnostic) 1 week -CH Progress/Outcomes (Additional Goal 1, APPRENTICE PLUMBER) continuing progress toward goal -CH Word Retrieval Skills Goal 1 (APPRENTICE PLUMBER) Improve Word Retrieval Skills By Goal 1 (APPRENTICE PLUMBER) high frequency;responsive naming task;completing a divergent task;80%;with minimal cues (75-90%) -CH Time Frame (Word Retrieval Goal 1, APPRENTICE PLUMBER) 1 week -CH Progress (Word Retrieval Skills Goal 1, APPRENTICE PLUMBER) 80%;with minimal cues (75-90%) -CH Progress/Outcomes (Word Retrieval Goal 1, APPRENTICE PLUMBER) continuing progress toward goal -CH Orientation Goal 1 (APPRENTICE PLUMBER) Improve Orientation Through Goal 1 (APPRENTICE PLUMBER) demonstrating orientation to day;demonstrating orientationto month;demonstrating orientation to year;demonstrating orientation to place;demonstrating orientation to disease/impairment;use environmental aids to assist with orientation;80%;with minimal cues (75-90%) -CH Time Frame (Orientation Goal 1, APPRENTICE PLUMBER) 1 week -CH Progress (Orientation Goal 1, APPRENTICE PLUMBER) 50%;with minimal cues (75-90%) -CH Progress/Outcomes (Orientation Goal 1, APPRENTICE PLUMBER) continuing progress toward goal -CH Comment (Orientation Goal 1, APPRENTICE PLUMBER) Oriented to self and grossly to place, not to time or situation -CH Memory Skills Goal 1 (APPRENTICE PLUMBER) Improve Memory Skills Through Goal 1 (APPRENTICE PLUMBER) recalling related word lists immediately;recall details of the day;90%;with minimal cues (75-90%) -CH Time Frame (Memory Skills Goal 1, APPRENTICE PLUMBER) 1 week -CH Progress (Memory Skills Goal 1, APPRENTICE PLUMBER) 40%;with minimal cues (75-90%) -CH Progress/Outcomes (Memory Skills Goal 1, APPRENTICE PLUMBER) continuing progress toward goal -CH User Carmona (r) = Recorded By, (t) = Taken By, (c) = Cosigned By Initials Name Provider Type Sissy Saldana MS CCC-APPRENTICE PLUMBER Speech and Language Pathologist Time Calculation: Time Calculation- APPRENTICE PLUMBER Row Name 10/30/24 1601 Time Calculation- APPRENTICE PLUMBER APPRENTICE PLUMBER Start Time 1430 -CH APPRENTICE PLUMBER Received On 10/30/24 - Untimed Charges 58897-QC Treatment/ST Modification Prosth Aug Alter 39 -CH 54720-WT Treatment Swallow Minutes 45 -CH Total Minutes Untimed Charges Total Minutes 84 -CH Total Minutes 84 -CH User Carmona (r) = Recorded By, (t) = Taken By, (c) = Cosigned By Initials Name Provider Type Sissy Saldana MS CCC-APPRENTICE PLUMBER Speech and Language Pathologist Therapy Charges for Today Code Description Service Date Service Provider Modifiers Qty 32937998734 HC ST TREATMENT SWALLOW 3 10/30/2024 LopezSissy boyer MS CCC-APPRENTICE PLUMBER GN [id number] TREATMENT SPEECH 3 10/30/2024 Lopez, Sissy, MS CCC-APPRENTICE PLUMBER GN 1 Sissy Lopez CCC-APPRENTICE PLUMBER 10/30/2024 * Case Management/Social Work - Saeed Ramsay RN - 10/30/2024 2:08 PM EDT Continued Stay Note [facility] Patient Name: Jessica [facility] Today's Date: 10/30/2024 Admit Date: 10/26/2024 Plan: SNF Discharge Plan Row Name 10/30/24 1400 Plan Plan SNF Patient/Family in Agreement with Plan yes Plan Comments I spoke w/Brianna Yip @ [facility], received fax from [facility] on Tuesday. Her contact number is [phone], fax [phone]. She stated that she needs more information about Mr. Burnham from daughter, Saranya. I called Saranya, who lives in [place], [place], she did not know about [facility] or where [facility] was located, I did give her Brianna's information to call. Per Saranya, she prefers her dad to go to a [place] facility for STR, and would like her dad to be able to doSTR , then back to his apt w/caregivers, but then asked if [facility] would keep him? I informedthat I would leave a facility list in Mr. Burnham's room w/[facility] for her to review.She plans to be here on , she is also assisting w/her mother. When I leave list, I will speak w/Mr. Burnham too. DC plan is SNF, will need transportation to SNF. Took list to Mr. Burnham, he stated that he did not want to go to [facility], or no where out of town. Speech pathologist was present in room as well, I asked him about SNF in [place], he stated, I don't want to be in that mess either. Will have unit CM f/u on Tuesday. Final Discharge Disposition Code 03 - alf facility (SNF) Discharge Codes No documentation. Expected Discharge Date and Time Expected Discharge Date Expected Discharge Time Oct 31, 2024 Saeed Ramsay, RN * Therapy Treatment Note - Yvonne Felder PT - 10/30/2024 11:14 AM EDT Images [...] Procedure: ESOPHAGOGASTRODUODENOSCOPY; Surgeon: Mian Garcia MD; Location: [facility]; Service: Gastroenterology; Laterality: N/A; General Information [...] Row Name 10/30/24 1130 Sit-Stand Transfer Sit-Stand [place] (Transfers) contact guard;verbal cues -KR Assistive Device (Sit-Stand Transfers) walker, front-wheeled -KR Comment, (Sit-Stand Transfer) 2x from chair with FWW, 5x STS from chair unsupported. -KR Row Name 10/30/24 1130 Gait/Stairs (Locomotion) [place] Level (Gait) contact guard -KR Assistive Device [...] Therapist Physical Therapy Education Title: PT OT APPRENTICE PLUMBER Therapies (In Progress) Topic: Physical Therapy (In [...] Physical Therapist PT EUGENIO 04/16/22 - Yvonne Felder PT Physical Therapist PT ST 01/20/24 - [...] PT Received On 10/30/24 -KR Timed Charges 20850 - PT Therapeutic Exercise Minutes 18 -KR 95104 - PT Therapeutic Activity Minutes 5 -KR Total Minutes Timed Charges Total Minutes 23 -KR Total Minutes 23 -KR User Carmona (r) = Recorded By, (t) = Taken By, (c) = Cosigned By Initials Name Provider Type Yvonne Martin, PT Physical Therapist Therapy Charges for Today Code Description Service Date Service Provider Modifiers Qty 95955715660 HC PT THER PROC EA 15 MIN 10/30/2024 Yvonne Felder, PT GP 1 37912032101 HC PT THERAPEUTIC ACT EA 15 MIN 10/30/2024 Yvonne Felder, PT GP 1 PT G-Codes Outcome Measure Options: AM-PAC 6 Clicks Basic Mobility (PT) AM-PAC 6 Clicks Score (PT): 17 AM-PAC 6 Clicks Score (OT): 17 Modified Beckham Scale: 3 - Moderate disability. Requiring some help, but able to walk without assistance. PT Discharge Summary Anticipated Discharge Disposition (PT): alf facility Yvonne Felder PT 10/30/2024 * Therapy [...] Procedure: ESOPHAGOGASTRODUODENOSCOPY; Surgeon: Mian Garcia MD; Location: [facility]; Service: Gastroenterology; Laterality: N/A; General Information [...] Row Name 10/30/24 1014 Sit-Stand Transfer Sit-Stand [place] (Transfers) contact guard;verbal cues -MR Assistive Device (Sit-Stand Transfers) walker, front-wheeled -MR Row Name 10/30/24 1014 Toilet Transfer Type (Toilet Transfer) stand pivot/stand step -MR [place] Level (Toilet Transfer) minimum assist (75% patient [...] Name 10/30/24 1014 Upper Body Dressing Assessment/Training [place] Level (Upper Body Dressing) don;contact guard assist;other (see comments) adjusting hospital gown -MR Position (Upper Body Dressing) supported sitting -MR Row Name 10/30/24 1014 Grooming Assessment/Training [place] Level (Grooming) wash face, hands;contact guard assist -MR Position (Grooming) sink side -MR Row Name 10/30/24 1014 Toileting Assessment/Training [place] Level (Toileting) adjust/manage clothing;contact guard assist;perform perineal hygiene;set up -MR Assistive Devices (Toileting) commode, bedside without drop arms -MR Position (Toileting) unsupported sitting;supported standing -MR Row Name 10/30/24 1014 Bathing Assessment/Intervention [place] Level (Bathing) perineal area;other (see comments);contact guard [...] Review/Discharge Plan (OT) Anticipated Discharge Disposition (OT) alf facility -MR Row Name 10/30/24 1018 Vital [...] Therapist Occupational Therapy Education Title: PT OT APPRENTICE PLUMBER Therapies (In Progress) Topic: Occupational Therapy (In [...] OT Received On 10/30/24 -MR Timed Charges 44950 - OT Therapeutic Activity Minutes 10 -MR 45602 - OT Self Care/Mgmt Minutes 16 -MR Total Minutes Timed Charges Total Minutes 26 -MR Total Minutes 26 -MR User Carmona (r) = Recorded By, (t) = Taken By, (c) = Cosigned By Initials Name Provider Type Edouard Bobbyelle, ENRIQUE Occupational Therapist Therapy Charges for Today Code Description Service Date Service Provider Modifiers Qty 94056371194 OT THERAPEUTIC ACT EA 15 MIN 10/30/2024 Jaylin Concepcion OT GO 1 [id number] OT SELF CARE/MGMT/TRAIN EA 15 MIN 10/30/2024 [...] Mobility Bed Mobility supine-sit;scooting/bridging (P) -ST Scooting/Bridging [place] (Bed Mobility) verbal cues;standby assist (P) -ST Supine-Sit [place] (Bed Mobility) verbal cues;standby assist (P) -ST [...] Row Name 10/29/24 1519 Sit-Stand Transfer Sit-Stand [place] (Transfers) minimum assist (75% patient effort);1 person assist;verbal cues (P) -ST Assistive Device (Sit-Stand Transfers) walker, front-wheeled (P) -ST Comment, (Sit-Stand Transfer) 1x STS from EOB, 5x STS from chair, 1x STS from commode w/ 1x assist and verbal cues to complete safely. (P) -ST Row Name 10/29/24 1519 Gait/Stairs (Locomotion) [place] Level (Gait) contact guard (P) -ST Assistive [...] By Initials Name Provider Type Fransico Mukherjeezoya Bryce, PT Student PT Student Obj/Interventions Row Name 10/29/24 1525 Motor Skills Therapeutic Exercise hip (P) -ST Row Name 10/29/24 152 Hip (Therapeutic Exercise) Hip (Therapeutic Exercise) strengthening exercise (P) 5 x STS from chair with cues for upright trunk and safe FWW use. -[facility] Name 10/29/24 152 Balance Balance Assessment sitting [...] PT Student Goals/Plan No documentation. Clinical Impression [facility] Name 10/29/24 152 Pain Pretreatment Pain Rating 0/10 - no pain (P) -ST Posttreatment Pain Rating 0/10 - no pain (P) -ST [facility] Name 10/29/24 152 Plan of Care Review Plan [...] rec to SNF upon D/C. (P) -ST [facility] Name 10/29/24 152 Therapy Assessment/Plan [...] assist;exit alarm on;legs elevated (P) -ST User Carmona (r) = Recorded [...] Minutes)-5 -BL Row Name 10/29/24 1531 Modified Beckham Scale Pre-Stroke Modified Terry Scale 6 - Unable to determine (UTD) from the medical record documentation (P) -ST Modified Beckham Scale 3 - Moderate disability. Requiring some help, but able to walk without assistance. (P) -ST User Carmona (r) = Recorded By, (t) = Taken By, (c) = Cosigned By Initials Name Provider Type Ronnie Carter, RN Registered Nurse Edil Mukherjee, PT Student PT Student Physical Therapy Education Title: PT OT APPRENTICE PLUMBER Therapies (In Progress) Topic: Physical Therapy (In [...] Initials Effective Dates Name Provider Type Discipline 10/01/20 - Jennifer Hendrickson, PT Physical Therapist [...] Due Date 11/07/24 (P) -ST Timed Charges 62465 - Gait Training Minutes 13 (P) -ST 73959 - PT Therapeutic Activity Minutes 13 (P) -ST Total Minutes Timed Charges Total Minutes 26 (P) -ST Total Minutes 26 (P) -ST User Carmona (r) = Recorded By, (t) = Taken By, (c) = Cosigned By Initials Name Provider Type ST Edil Franklin, PT Student PT Student Therapy Charges for Today Code Description Service Date Service Provider Modifiers Qty [id number] HC GAIT TRAINING EA 15 MIN 10/29/2024 Edil Franklin, PT Student GP 1 [id number] HC PT THERAPEUTIC ACT EA 15 MIN 10/29/2024 Edil Franklin, PT Student GP 1 PT G-Codes Outcome Measure Options: AM-PAC 6 Clicks Daily Activity (OT), Modified Terry AM-PAC 6 Clicks Score (PT): (P) 17 AM-PAC 6 Clicks Score (OT): 13 Modified Beckham Scale: (P) 3 - Moderate disability. Requiring some help, but able to walk without assistance. PT Discharge Summary Anticipated Discharge Disposition (PT): (P) alf facility Edil Franklin PT Student 10/29/2024 Cosigned by Yvonne Felder PT at 10/29/2024 3:55 PM EDT Associated attestation - Yvonne Felder PT - 10/29/2024 3:55 PM EDT Yvonne Felder PT, DPT, CSRS * Case Management/Social Work - Han Martin, RN - 10/29/2024 11:19 AM EDT Continued Stay Note [facility] Patient Name: Jessica [facility] Today's Date: 10/29/2024 Admit Date: 10/26/2024 Plan: [facility] Discharge Plan Row Name 10/29/24 1119 Plan Plan [facility] Patient/Family in Agreement with Plan yes Plan Comments CM faxed a referral to [facility] [facility]. CM will continue to follow. Final Discharge Disposition Code 03 - alf facility (SNF) Row Name 10/29/24 0928 Plan Plan [facility] [facility] Patient/Family in Agreement with Plan yes Plan Comments Spoke with patient at bedside. Lives alone in [address] Has caregiver 4-5 days a week. Contact is Saranya Carter (daughter/POA) [phone]. Is independent with ADL's. No problems affording [facility] or medications. Uses [place] pharmacy. Uses a straight cane. No HH. PCP is [facility]. Plan is [facility] SN[facility].Family will transport. CM will continue to follow. Final Discharge Disposition Code 03 - alf facility (SNF) Discharge Codes No documentation. Expected Discharge Date and Time Expected Discharge Date Expected Discharge Time Oct 29, 2024 Han Martin, RN * Case Management/Social Work - Han Martin RN - 10/29/2024 9:30 AM EDT Images from the original note were not included. Discharge Planning Assessment [facility] Patient Name: Jessica [facility] Today's Date: 10/29/2024 Admit Date: 10/26/2024 Plan: [place] Discharge Needs Assessment Row Name 10/29/24 [...] adult Family Caregiver Names Saranya Carter (daughter) [phone] Able to Return to Prior Arrangements yes [...] in last 30 days Current Outpatient/Agency/Support Group alf facility Equipment Currently Used at Home cane, [...] Needed After Discharge none Outpatient/Agency/Support Group Needs alf facility Discharge Facility/Level of Care Needs nursing [...] with patient at bedside. Lives alone in [place]. Has caregiver 4-5 days a week. Contact is Saranya Carter (daughter/POA) [phone]. Is independent with ADL's. No problems affording [facility] or medications. Uses [place] [facility]. Uses a straight cane. No HH. PCP is [facility]. Plan is [place] [facility].Family will transport. CM will continue to follow. Final Discharge Disposition Code 03 - alf facility (SNF) Continued Care and Services - Admitted Since 10/26/2024 No active coordination exists. Expected Discharge Date and Time Expected Discharge Date Expected Discharge Time Oct 29, 2024 Demographic Summary Row Name 10/29/24 0925 General Information Admission Type inpatient Arrived From hospital Referral Source admission list Reason for Consult discharge planning Preferred Language Bulgarian Contact Information Permission Granted to Share Info With case management rnediscovery project manager Information Obtained for case management rnslots manager Status Row Name 10/29/24 0925 Functional [...] per chart review [facility] -AJ Existing Precautions/Restrictions fall;other (see comments) dementia -AJ Barriers to Rehab previous functional deficit;cognitive status -AJ Row Name 10/28/24 1529 Living Environment Current Living Arrangements residential facility;other (see comments) Difficult to determine if he is in a SNF for rehab or longitudinal float operator. - People in Home facility resident - [...] Bed Mobility Bed Mobility supine-sit - Supine-Sit [place] (Bed Mobility) minimum assist (75% patient effort);1 person assist;verbal cues - Bed Mobility, Safety Issues cognitive deficits limit understanding - Assistive Device (Bed Mobility) head of bed elevated;bed rails - Comment, (Bed Mobility) Cues for task initiation - Row Name 10/28/241532 Transfers Transfers sit-stand transfer;toilet transfer - Row Name 10/28/241532 Sit-Stand Transfer Sit-Stand [place] (Transfers) minimum assist (75% patient effort);2 person assist;verbal cues - Assistive Device (Sit-Stand Transfers) walker, front-wheeled -JOSE MARIA Comment, (Sit-Stand Transfer) minAx2 and cues for HP - Row Name 10/28/24 153 Toilet Transfer Type (Toilet Transfer) sit-stand;stand-sit - [place] Level (Toilet Transfer) minimum assist (75% patient [...] Mobility-Distance (Feet) -- to and from bathroom -[facility] 10/28/241532 Activities of Daily Living BADL Assessment/Intervention upper body dressing;lower body dressing;grooming;toileting -[facility] 10/28/241532 Upper Body Dressing Assessment/Training [place] Level (Upper Body Dressing) don;doff;front opening garment;moderate assist (50% patient effort) - Position (Upper Body Dressing) unsupported sitting -[facility] 10/28/241532 Lower Body Dressing Assessment/Training [place] Level (Lower Body Dressing) doff;don;socks;maximum assist (25% patient effort);dependent (less than 25% patient effort) - Position (Lower Body Dressing) unsupported sitting -[facility] 10/28/241532 Grooming Assessment/Training [place] Level (Grooming) wash face, hands;set up - Position (Grooming) supported sitting -[facility] 10/28/241532 Toileting Assessment/Training [place] Level (Toileting) adjust/manage clothing;perform perineal hygiene;dependent (less than25% patient effort) - Assistive Devices (Toileting) commode - Position (Toileting) unsupported sitting;supported standing - User Carmona (r) = Recorded By, (t) = Taken By, (c) = Cosigned By Initials Name Provider Type Pearl Holt OT Occupational Therapist Obj/Interventions [facility] 10/28/241537 Sensory Assessment (Somatosensory) Sensory Assessment (Somatosensory) UE sensation intact -[facility] 10/28/241537 Vision Assessment/Intervention Visual Impairment/Limitations unable/difficult to assess -[facility] 10/28/241537 Range of Motion Comprehensive General Range of Motion bilateral upper extremity ROM WFL -[facility] 10/28/241537 Strength Comprehensive (MMT) General Manual Muscle Testing (MMT) Assessment upper extremity strength deficits identified - Comment, General Manual Muscle Testing (MMT) Assessment BUE grossly 4/5 based on bed mobility and transfers; limited formal assessment d/t poor direction following -[facility] 10/28/241537 Balance Balance Assessment sitting static balance;sitting [...] OT) sit to supine;supine to sit -AJ [place] Level/Cues Needed (Bed Mobility Goal 1, OT) standby assist -AJ Time Frame (Bed Mobility Goal 1, OT) longitudinal float operator goal (LTG);10 days -AJ Progress/Outcomes (Bed Mobility Goal 1, OT) new goal - Row Name 10/28/24 1543 Transfer Goal 1 (OT) Activity/Assistive Device (Transfer Goal 1, OT) uhz-nk-asbxr/xuerf-ez-oyp;xla-lt-kstss/bxnnp-pb-wlh;toilet -AJ [place] Level/Cues Needed (Transfer Goal 1, OT) standby assist -AJ Time Frame (Transfer Goal 1, OT) penitentiary goal (LTG);10 days -AJ Progress/Outcome (Transfer Goal 1, OT) new goal - Row Name 10/28/24 1543 Toileting Goal 1 (OT) Activity/Device (Toileting Goal 1, OT) adjust/manage clothing;perform perineal hygiene -AJ [place] Level/Cues Needed (Toileting Goal 1, OT) maximum [...] Review/Discharge Plan (OT) Anticipated Discharge Disposition (OT) alf facility - Row Name 10/28/24 1539 Vital [...] in bed - Post Treatment Position chair -AJ In Chair notified nsg;reclined;sitting;call light within reach;encouraged [...] Minutes)-5 -BL Row Name 10/28/24 1544 Modified Beckham Scale Pre-Stroke Modified Beckham Scale 6 - Unable to determine (UTD) from the medical record documentation - Modified Terry Scale 3 - Moderate disability. Requiring some help, but able to walk without assistance. - Row Name 10/28/24 1544 10/28/24 1536 Functional Assessment Outcome Measure Options AM-PAC 6 Clicks Daily Activity (OT);Modified Terry - AM-PAC 6 Clicks Basic Mobility (PT) -MAI User Carmona (r) = Recorded By, (t) = Taken By, (c) = Cosigned By Initials Name Provider Type Jennifer Olvera, PT Physical Therapist Ronnie Salas, RN Registered Nurse Pearl Eisenberg OT Occupational Therapist Occupational Therapy Education Title: PT OT APPRENTICE PLUMBER Therapies (In Progress) Topic: Occupational Therapy (In Progress) Point: ADL training (Done) Learning Progress Summary Patient Acceptance, E,D, VU,NR by at 10/28/2024 154 Point: Precautions (Done) Learning Progress Summary Patient Acceptance, E,D, VU,NR by at 10/28/20241544 Point: Body mechanics (Done) Learning Progress Summary Patient Acceptance, E,D, VU,NR by at 10/28/2024 154 User Carmona Initials Effective Dates Name Provider [...] = Cosigned By Initials Name Provider Type AJ Pearl Holt OT Occupational Therapist Therapy Charges for Today Code Description Service Date Service Provider Modifiers Qty [id number] OT EVAL LOW COMPLEXITY 4 10/28/2024 Pearl [...] Bed Mobility Bed Mobility supine-sit -MAI Supine-Sit [place] (Bed Mobility) verbal cues;nonverbal cues (demo/gesture);minimum assist (75% patient effort) -MAI Assistive Device (Bed Mobility) head of bed elevated;bed rails -MAI Comment, (Bed Mobility) Pt utilized bed rail -MAI Row Name 10/28/24 1528 Transfers Comment, (Transfers) Cues for sequencing and hand placement with FWW. -MAI Row Name 10/28/24 1528 Sit-Stand Transfer Sit-Stand [place] (Transfers) minimum assist (75% patient effort) -MAI Assistive Device (Sit-Stand Transfers) walker, front-wheeled -MAI Comment, (Sit-Stand Transfer) VCs -MAI Row Name 10/28/24 1528 Gait/Stairs (Locomotion) [place] Level (Gait) contact guard -MAI Assistive Device [...] (MMT) Assessment lower extremity strength deficits identified -AMI Comment, General Manual Muscle Testing (MMT) Assessment [...] PT) sit to supine/supine to sit -MAI [place] Level/Cues Needed (Bed Mobility Goal 1, PT) independent -MAI Time Frame (Bed Mobility Goal 1, PT) longitudinal float operator goal (LTG);10 days -MAI Row Name 10/28/241534 Transfer Goal 1 (PT) Activity/Assistive Device (Transfer Goal 1, PT) sjq-sn-rdawx/smlrm-bl-aus -MAI [place] Level/Cues Needed (Transfer Goal 1, PT) modified independence -MAI Time Frame (Transfer Goal 1, PT) short term goal (STG);5 days -MAI Row Name 10/28/241534 Gait Training Goal 1 (PT) Activity/Assistive Device (Gait Training Goal 1, PT) gait (walking locomotion);assistive device use-MAI [place] Level (Gait Training Goal 1, PT) modified independence -MAI Distance (Gait Training Goal 1, PT) 100 -MAI Time Frame (Gait Training Goal 1, PT) penitentiary goal (LTG);10 days -MAI Row Name 10/28/24 1535 Therapy Assessment/Plan (PT) Planned Therapy Interventions (PT) balance training;bed mobility training;gait training;home exercise program;strengthening;transfer training;patient/family education;postural re-education;neuromuscular re-education -MAI User Carmona (r) = Recorded By, (t) = Taken By, (c) = Cosigned By Initials Name Provider Type MAI Jennifer Hendrickson, PT Physical Therapist Clinical Impression Row Name [...] -MAI O2 Delivery Pre Treatment room air -MIA O2 Delivery Intra Treatment room air -MAI [...] Nurse Physical Therapy Education Title: PT OT APPRENTICE PLUMBER Therapies (In Progress) Topic: Physical Therapy (In [...] Description Service Date Service Provider Modifiers Qty [id number] HC-PT EVAL MOD COMPLEXITY 5 10/28/2024 Jennifer Hendrickson, PT 1 PT G-Codes Outcome Measure Options: AM-PAC 6 Clicks Basic Mobility (PT) AM-PAC 6 Clicks Score (PT): 18 PT Discharge Summary Anticipated Discharge Disposition (PT): alf facility Jennifer Hendrickson PT 10/28/2024 * Therapy Evaluation - Sissy Lopez MS CCC-APPRENTICE PLUMBER - 10/27/2024 2:46 PM EDT Images from the original note were not included. Acute Care - Speech Language Pathology Swallow Initial Evaluation [facility] Clinical Swallow Evaluation Cognitive-Communication Evaluation Patient Name: Jessica Burnham : 1935 Today's Date: 10/27/2024 Admit Date: 10/26/2024 Visit Dx: No diagnosis found. Patient Active Problem List Diagnosis Stroke-like symptoms No past medical history on file. No past surgical history on file. APPRENTICE PLUMBER Recommendation and Plan APPRENTICE PLUMBER Swallowing Diagnosis: functional oral phase, R/O pharyngeal dysphagia, suspected esophageal dysphagia (10/27/24 1300) APPRENTICE PLUMBER Diet Recommendation: puree, thin liquids, other (see comments) (pureed for comfort as pt c/o solids sticking in his esophagus) (10/27/24 1300) Recommended Precautions and Strategies: upright posture during/after eating, small bites of food and sips of liquid, reflux precautions (10/27/24 1300) APPRENTICE PLUMBER Rec. for Method of Medication Administration: meds whole, meds crushed, with puree, as tolerated (10/27/241299) Monitor for Signs of Aspiration: notify APPRENTICE PLUMBER if any concerns (10/27/241299) Recommended Diagnostics: other (see comments) (diet tolerance, MBS if any concerns after GI sees) (10/27/241299) Swallow Criteria for Skilled Therapeutic Interventions Met: demonstrates skilled criteria () Anticipated Discharge Disposition (APPRENTICE PLUMBER): alf facility (10/27/241299) Rehab Potential/Prognosis, Swallowing: good, to [...] indicated (10/27/241299) SWALLOW EVALUATION (Last 72 Hours) APPRENTICE PLUMBER Adult Swallow Evaluation Row Name 10/27/241299 General [...] aspiration;Risks of aspiration;Oral care recommendationsand rationale -CH APPRENTICE PLUMBER Evaluation Clinical Impression APPRENTICE PLUMBER Swallowing Diagnosis functional oral phase;R/O pharyngeal dysphagia;suspected esophageal dysphagia - Functional Impact risk of aspiration/pneumonia;risk of malnutrition - Rehab Potential/Prognosis, Swallowing good, to achieve stated therapy goals - Swallow Criteria for Skilled Therapeutic Interventions Met demonstrates skilled criteria - Recommendations Therapy Frequency (Swallow) PRN;5 days per week - APPRENTICE PLUMBER Diet Recommendation puree;thin liquids;other (see comments) pureed for comfort as pt c/o solidssticking in his esophagus - Recommended Diagnostics other (see comments) diet tolerance, MBS if any concerns after GI sees - Recommended Precautions and Strategies upright posture during/after eating;small bites of food and sips of liquid;reflux precautions - Oral Care Recommendations Oral Care BID/PRN;Toothbrush - APPRENTICE PLUMBER Rec. for Method of Medication Administration meds whole;meds crushed;with puree;as tolerated - Monitor for Signs of Aspiration notify APPRENTICE PLUMBER if any concerns - Demonstrates Need for Referral to Another Service gastroenterology;dedicated esophageal assessment - Swallowing Considerations per Physician Discretion medical management of suspected esophageal dysphagia, as indicated - User Carmona (r) = Recorded By, (t) = Taken By, (c) = Cosigned By Initials Name Effective Dates Sissy Lopez MS [facility]-APPRENTICE PLUMBER 05/07/24 - EDUCATION The patient has been educated in the following areas: Dysphagia (Swallowing Impairment) Oral Care/Hydration Modified Diet Instruction. APPRENTICE PLUMBER GOALS Row Name 10/27/24 1300 (LTG) Patient will demonstrate functional swallow for Diet Texture (Demonstrate functional swallow) mechanical ground textures - Liquid viscosity (Demonstrate functional swallow) thin liquids - [place] (Demonstrate functional swallow) with minimal cues (75-90% accuracy) - Time Frame (Demonstrate functional swallow) 1 week - (STG) Patient will tolerate trials of Consistencies Trialed (Tolerate trials) pureed textures;thin liquids - Desired Outcome (Tolerate trials) without signs/symptoms of aspiration;with adequate oral prep/transit/clearance - [place] (Tolerate trials) with minimal cues (75-90% accuracy) - Time Frame (Tolerate trials) 1 week - Patient will demonstrate functional cognitive-linguistic skills for return to discharge environment [place] with minimal cues - Time frame 1 week - APPRENTICE PLUMBER Diagnostic Treatment Patient will participate in further assessment in the following areas clarification of baseline cognitive communication status - Time Frame (Diagnostic) 1 week -CH Word Retrieval Skills Goal 1 (APPRENTICE PLUMBER) Improve Word Retrieval Skills By Goal 1 (APPRENTICE PLUMBER) high frequency;responsive naming task;completing a divergent task;80%;with minimal cues (75-90%) - Time Frame (Word Retrieval Goal 1, APPRENTICE PLUMBER) 1 week -CH Orientation Goal 1 (APPRENTICE PLUMBER) Improve Orientation Through Goal 1 (APPRENTICE PLUMBER) demonstrating orientation to day;demonstrating orientationto month;demonstrating orientation to year;demonstrating orientation to place;demonstrating orientation to disease/impairment;use environmental aids to assist with orientation;80%;with minimal cues (75-90%) - Time Frame (Orientation Goal 1, APPRENTICE PLUMBER) 1 week -CH Memory Skills Goal 1 (APPRENTICE PLUMBER) Improve Memory Skills Through Goal 1 (APPRENTICE PLUMBER) recalling related word lists immediately;recall details of the day;90%;with minimal cues (75-90%) - Time Frame (Memory Skills Goal 1, APPRENTICE PLUMBER) 1 week - User Carmona (r) = Recorded By, (t) = Taken By, (c) = Cosigned By Initials Name Provider Type Sissy Saldana MS CCC-APPRENTICE PLUMBER Speech and Language Pathologist Time Calculation: Time Calculation- APPRENTICE PLUMBER Row Name 10/27/24 1439 Time Calculation- APPRENTICE PLUMBER APPRENTICE PLUMBER Start Time 1300 -CH APPRENTICE PLUMBER Received On 10/27/24 -CH Untimed Charges APPRENTICE PLUMBER Eval/Re-eval ST Eval Speech and Production w/ Language - 53165;ST Eval Oral Pharyng Swallow - 93364 -CH 88744-DE Eval Speech and Production w/ Language Minutes 40 -CH 63028-EN Eval Oral Pharyng Swallow Minutes 42 -CH Total Minutes Untimed Charges Total Minutes 82 -CH Total Minutes 82 -CH User Carmona (r) = Recorded By, (t) = Taken By, (c) = Cosigned By Initials Name Provider Type Sissy Saldana MS CCC-APPRENTICE PLUMBER Speech and Language Pathologist Therapy Charges for Today Code Description Service Date Service Provider Modifiers Qty [id number] HC ST EVAL ORAL PHARYNG SWALLOW 3 10/27/2024 Sissy Lopez MS CCC-APPRENTICE PLUMBER GN [id number] EVAL SPEECH AND PROD W LANG 3 10/27/2024 Sissy Lopez MS CCC-APPRENTICE PLUMBER GN 1 MS REZA Davalos 10/27/2024 and Acute Care - Speech Language Pathology Initial Evaluation [place] Patient Name: Jessica Burnham : 1935 Today's Date: 10/27/2024 Admit Date: 10/26/2024 Visit Dx: No diagnosis found. Patient Active Problem List Diagnosis Stroke-like symptoms No past medical history on file. No past surgical history on file. APPRENTICE PLUMBER Recommendation and Plan APPRENTICE PLUMBER Diagnosis: mild, cognitive-linguistic disorder (10/27/241299) Monitor for Signs of Aspiration: notify APPRENTICE PLUMBER if any concerns (10/27/241299) Swallow Criteria for Skilled Therapeutic Interventions Met: demonstrates skilled criteria () SLC Criteria for Skilled Therapy Interventions Met: yes (10/27/241299) Anticipated Discharge Disposition (APPRENTICE PLUMBER): alf facility (10/27/241299) Demonstrates Need for Referral to Another Service: gastroenterology, dedicated esophageal assessment (10/27/241299) Therapy Frequency (Swallow): PRN, 5 days per week (10/27/241299) Therapy Frequency (APPRENTICE PLUMBER SLC): 5 days per week (10/27/241299) Predicted Duration Therapy Intervention (Days): 1 week (10/27/241299) Oral Care Recommendations: Oral Care BID/PRN, Toothbrush (10/27/241299) APPRENTICE PLUMBER EVALUATION (Last 72 Hours) APPRENTICE PLUMBER SLC Evaluation Row Name 10/27/241299 Communication Assessment/Intervention [...] Dentition Assessment edentulous, does not have dentures -CH Mucosal Quality dry - Oral Musculature and Cranial Nerve Assessment Oral Labial or Buccal Impairment, Detail, Cranial Nerve VII (Facial): left labial droop -CH Motor Speech Assessment/Intervention Motor Speech Function WFL - Cursory Voice Assessment/Intervention Quality and Resonance (Voice) WNL -CH Cognitive Assessment Intervention- APPRENTICE PLUMBER Cognitive Function (Cognition) mild impairment -CH Orientation Status (Cognition) awareness of basic personal information;person;WFL;place;time;situation;mild impairment -CH Memory (Cognitive) simple;immediate;long-term;WFL;short-term;delayed;mild impairment -CH Attention (Cognitive) selective;sustained;WFL;attention to detail;mild impairment -CH Thought Organization (Cognitive) concrete divergent;abstract divergent;concrete convergent;abstractconvergent;verbal sequencing;mild impairment -CH Reasoning (Cognitive) simple;deductive;WFL -CH APPRENTICE PLUMBER Evaluation Clinical Impressions APPRENTICE PLUMBER Diagnosis mild;cognitive-linguistic disorder -CH Rehab Potential/Prognosis good - SLC Criteria for Skilled Therapy Interventions Met yes - Recommendations Therapy Frequency (APPRENTICE PLUMBER SLC) 5 days per week -CH Predicted Duration Therapy Intervention (Days) 1 week -CH Anticipated Discharge Disposition (APPRENTICE PLUMBER) alf facility - User Carmona (r) = Recorded By, (t) = Taken By, (c) = Cosigned By Initials Name Effective Dates CH Sissy Lopez MS CCC-APPRENTICE PLUMBER 05/07/24 - EDUCATION The patient has been educated in the following areas: Cognitive Impairment Communication Impairment. APPRENTICE PLUMBER GOALS Row Name 10/27/24 1300 (LTG) Patient will demonstrate functional swallow for Diet Texture (Demonstrate functional swallow) mechanical ground textures -CH Liquid viscosity (Demonstrate functional swallow) thin liquids -CH [place] (Demonstrate functional swallow) with minimal cues (75-90% accuracy) - Time Frame (Demonstrate functional swallow) 1 week -CH (STG) Patient will tolerate trials of Consistencies Trialed (Tolerate trials) pureed textures;thin liquids -CH Desired Outcome (Tolerate trials) without signs/symptoms of aspiration;with adequate oral prep/transit/clearance -CH [place] (Tolerate trials) with minimal cues (75-90% accuracy) -CH Time Frame (Tolerate trials) 1 week -CH Patient will demonstrate functional cognitive-linguistic skills for return to discharge environment [place] with minimal cues -CH Time frame 1 week -CH APPRENTICE PLUMBER Diagnostic Treatment Patient will participate in further assessment in the following areas clarification of baseline cognitive communication status - Time Frame (Diagnostic) 1 week -CH Word Retrieval Skills Goal 1 (APPRENTICE PLUMBER) Improve Word Retrieval Skills By Goal 1 (APPRENTICE PLUMBER) high frequency;responsive naming task;completing a divergent task;80%;with minimal cues (75-90%) - Time Frame (Word Retrieval Goal 1, APPRENTICE PLUMBER) 1 week - Orientation Goal 1 (APPRENTICE PLUMBER) Improve Orientation Through Goal 1 (APPRENTICE PLUMBER) demonstrating orientation to day;demonstrating orientationto month;demonstrating orientation to year;demonstrating orientation to place;demonstrating orientation to disease/impairment;use environmental aids to assist with orientation;80%;with minimal cues (75-90%) - Time Frame (Orientation Goal 1, APPRENTICE PLUMBER) 1 week - Memory Skills Goal 1 (APPRENTICE PLUMBER) Improve Memory Skills Through Goal 1 (APPRENTICE PLUMBER) recalling related word lists immediately;recall details of the day;90%;with minimal cues (75-90%) - Time Frame (Memory Skills Goal 1, APPRENTICE PLUMBER) 1 week - User Carmona (r) = Recorded By, (t) = Taken By, (c) = Cosigned By Initials Name Provider Type Sissy Saldana MS [facility]-APPRENTICE PLUMBER Speech and Language Pathologist Time Calculation: Time Calculation- APPRENTICE PLUMBER Row Name 10/27/24 7369 Time Calculation- APPRENTICE PLUMBER APPRENTICE PLUMBER Start Time 1300 -CH APPRENTICE PLUMBER Received On 10/27/24 - Untimed Charges APPRENTICE PLUMBER Eval/Re-eval ST Eval Speech and Production w/ Language - 63825;ST Eval Oral Pharyng Swallow - 51338 - 98240-JK Eval Speech and Production w/ Language Minutes 40 -CH 83784-WT Eval Oral Pharyng Swallow Minutes 42 -CH Total Minutes Untimed Charges Total Minutes 82 -CH Total Minutes 82 -CH User Carmona (r) = Recorded By, (t) = Taken By, (c) = Cosigned By Initials Name Provider Type Sissy Lopez MS CCC-APPRENTICE PLUMBER Speech and Language Pathologist Therapy Charges for Today Code Description Service Date Service Provider Modifiers Qty [id number] HC ST EVAL ORAL PHARYNG SWALLOW 3 10/27/2024 Sissy Lopez MS CCC-APPRENTICE PLUMBER GN [id number] EVAL SPEECH AND PROD W LANG 3 10/27/2024 Sissy Lopez MS CCC-APPRENTICE PLUMBER GN 1 Sissy Lopez MS CCC-APPRENTICE PLUMBER 10/27/2024 documented in this encounter Plan of Treatment Upcoming Encounters Date Type Department Care Team (Late st Contact Info) Description 12/26/2024 11:30 AM EDT Office Visit [facility] [address] [phone] Clark Lopez MD [address] [address] documented as of this encounter Procedures Procedure Name Priority Date/Time Associated Diagnosis Comments URINALYSIS, MICROSCOPIC ONLY Routine 10:12 AM EDT URINALYSIS W/ CULTURE IF INDICATED Routine 10/30/2024 10:12 AM EDT ID ESOPHAGOGASTRODUODENOSCOP Y TRANSORAL DIAGNOSTIC 10/29/2024 9:30 AM [...] Seen, 0-2 /HPF 10/30/2024 10:31 AM EDT [facility] WBC, UA 0-2 None Seen, 0-2 /HPF 10/30/2024 10:31 AM EDT [facility] Comment:Urine culture not in dicated. Bacteria, UA None Seen None Seen /HPF 10/30/2024 10:31 AM EDT [facility] Squamous Epithelial Cells, UA 0-2 None Seen, 0-2 /HPF 10/30/2024 10:31 AM EDT [facility] Hyaline Casts, UA None Seen None Seen /LPF 10/30/2024 10:31 AM EDT [facility] Methodology Automated Microscopy 10/30/2024 10:31 AM EDT [facility] Urine Urine specimen obtained by clean catch procedure / Unknown Collection / Unknown 10/30/2024 10:12 AM EDT 10/30/2024 10:12 AM EDT Che Serna Margi QA INTERNSHIP URINE ORDERABLES F inal Result [facility]
[address] [id number], * (ABNORMAL) Urinalysis With Culture If Indicated - Urine, Clean Catch (10/30/2024 10:12 AM EDT) Color, UA Yellow Yellow, Straw 10/30/2024 10:31 AM EDT [facility] Appearance, UA Clear Clear 10/30/2024 10:31 AM EDT [facility] pH, UA 7.0 5.0 - 8.0 10/30/2024 10:31 AM EDT [facility] Specific [place], UA 1.011 1.005 - 1.030 10/30/2024 10:31 AM EDT [facility] Glucose, UA Negative Negative 10/30/2024 10:31 AM EDT [facility] Ketones, UA Negative Negative 10/30/2024 10:31 AM EDT [facility] Bilirubin, UA Negative Negative 10/30/2024 10:31 AM EDT [facility] Blood, UA Negative Negative 10/30/2024 10:31 AM EDT [facility] Protein, UA 30 mg/dL (1+)(A) Negative 10/30/2024 10:31 AM EDT [facility] Leuk Esterase, UA Moderate (2+)(A) Negative 10/30/2024 10:31 AM EDT [facility] Nitrite, UA Negative Negative 10/30/2024 10:31 AM EDT [facility] Urobilinogen, UA 1.0 E.U./dL 0.2 - 1.0 E.U./dL 10/30/2024 10:31 AM EDT [facility] Urine Urine specimen obtained by clean catch procedure / Unknown Collection / Unknown 10/30/2024 10:12 AM EDT 10/30/2024 10:12 AM EDT Narrative [facility] - 10/30/2024 10:31 AM EDT In absence of clinical symptoms, the presence of pyuria, bacteria, and/or nitrites on the urinalysis result does not correlate with infection. Che Serna Margi QA INTERNSHIP URINE ORDERABLES F inal Result [facility]
[address] [place] [address], * Upper GI Endoscopy (10/29/2024 9:19 AM [...] AND COLOR FLOW (10/28/2024 9:35 AM EDT) Pathologist [facility] EF(MOD-bp) 37.8 % LVIDd 3.8 cm LVIDs [...] Basic Metabolic Panel (10/28/2024 8:42 AM EDT) [facility] Glucose 85 65 - 99 mg/dL 10/28/2024 9:56 AM EDT [facility] BUN 21.0 8.0 - 23.0 mg/dL 10/28/2024 9:56 AM EDT [facility] Creatinine 1.10 0.76 - 1.27 mg/dL 10/28/2024 9:56 AM EDT [facility] Sodium 140 136 - 145 mmol/L 10/28/2024 9:56 AM EDT [facility] Potassium 4.0 3.5 - 5.2 mmol/L 10/28/2024 9:56 AM EDT [facility] Chloride 104 98 - 107 mmol/L 10/28/2024 9:56 AM EDT [facility] CO2 24.0 22.0 - 29.0 mmol/L 10/28/2024 9:56 AM EDT [facility] Calcium 9.2 8.6 - 10.5 mg/dL 10/28/2024 9:56 AM EDT [facility] BUN/Creatinine Ratio 19.1 7.0 - 25.0 10/28/2024 9:56 AM EDT [facility] Anion Gap 12.0 5.0 - 15.0 mmol/L 10/28/2024 9:56 AM EDT [facility] eGFR 64.2 >60.0 mL/min/1.7 3 10/28/2024 9:56 AM EDT [facility] Blood Venipuncture / Unknown 10/28/2024 8:42 AM EDT 10/28/2024 9:09 AM EDT Narrative [facility] - 10/28/2024 9:56 AM EDT GFR [...] MD LAB BLOOD ORDERABLES Final Res ult [facility]
[address] [place] [address], * CBC (No Diff) (10/28/2024 8:42 AM EDT) WBC 4.81 3.40 - 10.80 10*3/mm3 10/28/2024 9:16 AM EDT [facility] RBC 5.42 4.14 - 5.80 10*6/mm3 10/28/2024 9:16 AM EDT [facility] Hemoglobin 14.9 13.0 - 17.7 g/dL 10/28/2024 9:16 AM EDT [facility] Hematocrit 43.1 37.5 - 51.0 % 10/28/2024 9:16 AM EDT [facility] MCV 79.5 79.0 - 97.0 fL 10/28/2024 9:16 AM EDT [facility] MCH 27.5 26.6 - 33.0 pg 10/28/2024 9:16 AM EDT [facility] MCHC 34.6 31.5 - 35.7 g/dL 10/28/2024 9:16 AM EDT [facility] RDW 15.1 12.3 - 15.4 % 10/28/2024 9:16 AM EDT [facility] RDW-SD 43.6 37.0 - 54.0 fl 10/28/2024 9:16 AM EDT [facility] MPV 10.9 6.0 - 12.0 fL 10/28/2024 9:16 AM EDT [facility] Platelets 168 140 - 450 10*3/mm3 10/28/2024 9:16 AM EDT [facility] Blood Venipuncture / Unknown 10/28/2024 8:42 AM EDT 10/28/2024 9:09 AM EDT us Saeed Monique MD LAB BLOOD ORDERABLES Final Res ult [facility]
[address] [place] [address], * ECG 12 Lead QT Measurement (10/28/2024 12:32 AM EDT) QT Interval 398 ms ECG QTC Interval [...] Referred By: Confirmed By: KD CHIU MD Gal Weiner PA-C ECG ORDERABLES Emma l Result ECG * (ABNORMAL) Urinalysis, Microscopic Only - Urine, Clean Catch (10/28/2024 12:09 AM EDT) Pathologist [facility] RBC, UA 0-2 None Seen, 0-2 /HPF 10/28/2024 2:13 AM EDT [facility] WBC, UA 0-2 None Seen, 0-2 /HPF 10/28/2024 2:13 AM EDT [facility] Comment:Urine culture not in dicated. Bacteria, UA 1+(A) None Seen /HPF 10/28/2024 2:13 AM EDT [facility] Squamous Epithelial Cells, UA 0-2 None Seen, 0-2 /HPF 10/28/2024 2:13 AM EDT [facility] Hyaline Casts, UA None Seen None Seen /LPF 10/28/2024 2:13 AM EDT [facility] Methodology Manual Light Microscopy 10/28/2024 2:13 AM EDT [facility] Urine Urine specimen obtained by clean catch procedure / Unknown Collection / Unknown 10/28/2024 12:09 AM EDT 10/28/2024 1:00 AM EDT Gal Weiner PA-C URINE ORDERABLES Fin al Result [facility]
[address] [place] [address], * (ABNORMAL) Urinalysis With Culture If Indicated - Urine, Clean Catch (10/28/2024 12:09 AM EDT) Color, UA Yellow Yellow, Straw 10/28/2024 1:18 AM EDT [facility] Appearance, UA Clear Clear 10/28/2024 1:18 AM EDT [facility] pH, UA 8.0 5.0 - 8.0 10/28/2024 1:18 AM EDT [facility] Specific [place], UA 1.013 1.005 - 1.030 10/28/2024 1:18 AM EDT [facility] Glucose, UA Negative Negative 10/28/2024 1:18 AM EDT [facility] Ketones, UA Negative Negative 10/28/2024 1:18 AM EDT [facility] Bilirubin, UA Negative Negative 10/28/2024 1:18 AM EDT [facility] Blood, UA Negative Negative 10/28/2024 1:18 AM EDT [facility] Protein, UA 30 mg/dL (1+)(A) Negative 10/28/2024 1:18 AM EDT [facility] Leuk Esterase, UA Trace(A) Negative 10/28/2024 1:18 AM EDT [facility] Nitrite, UA Negative Negative 10/28/2024 1:18 AM EDT [facility] Urobilinogen, UA 1.0 E.U./dL 0.2 - 1.0 E.U./dL 10/28/2024 1:18 AM EDT [facility] Urine Urine specimen obtained by clean catch procedure / Unknown Collection / Unknown 10/28/2024 12:09 AM EDT 10/28/2024 1:00 AM EDT Narrative [facility] - 10/28/2024 1:18 AM EDT In absence of clinical symptoms, the presence of pyuria, bacteria, and/or nitrites on the urinalysis result does not correlate with infection. Gal Weiner PA-C URINE ORDERABLES Fin al Result Performing Organization Address City/[facility]/ZIP Co de Phone Number [facility]
[address] [place] [address], * Magnesium (10/27/2024 11:54 PM EDT) Pathologist [facility] Magnesium 2.2 1.6 - 2.4 mg/dL 10/28/2024 12:35 AM EDT [facility] Blood Venipuncture / Unknown 10/27/2024 11:54 PM EDT 10/28/2024 12:04 AM EDT Gal Weiner PA-C LAB BLOOD ORDERABLES Final Result Performing Organization Address City/[facility]/ZIP Co de Phone Number [facility]
[address] [place] [address], * (ABNORMAL) CBC Auto Differential (10/27/2024 11:54 PM EDT) WBC 5.07 3.40 - 10.80 10*3/mm3 10/28/2024 12:10 AM [facility] RBC 5.20 4.14 - 5.80 10*6/mm3 10/28/2024 12:10 AM [facility] Hemoglobin 14.6 13.0 - 17.7 g/dL 10/28/2024 12:10 AM [facility] Hematocrit 41.5 37.5 - 51.0 [...] 0.0 - 1.5 % 10/28/2024 12:10 AM EDT [facility] Immature Grans % 0.4 0.0 - 0.5 % 10/28/2024 12:10 AM EDT [facility] Neutrophils, Absolute 1.69(L) 1.70 - 7.00 10*3/mm3 10/28/2024 12:10 AM EDT [facility] Lymphocytes, Absolute 2.21 0.70 - 3.10 10*3/mm3 10/28/2024 12:10 AM EDT [facility] Monocytes, Absolute 0.88 0.10 - 0.90 10*3/mm3 10/28/2024 12:10 AM EDT [facility] Eosinophils, Absolute 0.22 0.00 - 0.40 10*3/mm3 10/28/2024 12:10 AM EDT [facility] Basophils, Absolute 0.05 0.00 - 0.20 10*3/mm3 10/28/2024 12:10 AM EDT [facility] Immature Grans, Absolute 0.02 0.00 - 0.05 10*3/mm3 10/28/2024 12:10 AM EDT [facility] nRBC 0.0 0.0 - 0.2 /100 WBC 10/28/2024 12:10 AM T [facility] Blood Venipuncture / Unknown 10/27/2024 11:54 PM EDT 10/28/2024 12:08 AM EDT Gal Weiner PA-C LAB BLOOD ORDERABLES Final Result [facility]
[address] [id number], * Lactic Acid, Plasma (10/27/2024 11:54 PM EDT) Lactate 1.3 0.5 - 2.0 mmol/L 10/28/2024 12:32 AM EDT [facility] Comment:Falsely depressed re sults may occur on samples drawn from patients receiving N-Acetylcysteine (NAC) or Metamizole. Blood Venipuncture / Unknown 10/27/2024 11:54 PM EDT 10/28/2024 12:04 AM EDT Gal Weiner PA-C LAB BLOOD ORDERABLES Final Result [facility]
[address] [place] [address], * (ABNORMAL) Comprehensive Metabolic Panel (10/27/2024 11:54 PM EDT) Glucose 80 65 - 99 mg/dL 10/28/2024 12:35 AM EDT [facility] BUN 21.7 8.0 - 23.0 mg/dL 10/28/2024 12:35 AM EDT [facility] Creatinine 1.08 0.76 - 1.27 mg/dL 10/28/2024 12:35 AM EDT [facility] Sodium 137 136 - 145 mmol/L 10/28/2024 12:35 AM EDT [facility] Potassium 4.1 3.5 - 5.2 mmol/L 10/28/2024 12:35 AM EDT [facility] Chloride 103 98 - 107 mmol/L 10/28/2024 12:35 AM EDT [facility] CO2 19.8(L) 22.0 - 29.0 mmol/L 10/28/2024 12:35 AM EDT [facility] Calcium 9.4 8.6 - 10.5 mg/dL 10/28/2024 12:35 AM EDT [facility] Total Protein 7.5 6.0 - 8.5 g/dL 10/28/2024 12:35 AM EDT [facility] Albumin 4.3 3.5 - 5.2 g/dL 10/28/2024 12:35 AM EDT [facility] ALT (SGPT) 23 1 - 41 U/L 10/28/2024 12:35 AM EDT [facility] AST (SGOT) 29 1 - 40 U/L 10/28/2024 12:35 AM EDT [facility] Alkaline Phosphatase 71 39 - 117 U/L 10/28/2024 12:35 AM EDT [facility] Total Bilirubin 0.4 0.0 - 1.2 mg/dL 10/28/2024 12:35 AM EDT [facility] Globulin 3.2 gm/dL 10/28/2024 12:35 AM EDT [facility] Comment:Calculated Result A/G Ratio 1.3 g/dL 10/28/2024 12:35 AM EDT [facility] BUN/Creatinine Ratio 20.1 7.0 - 25.0 10/28/2024 12:35 AM EDT [facility] Anion Gap 14.2 5.0 - 15.0 mmol/L 10/28/2024 12:35 AM T [facility] eGFR 65.6 >60.0 mL/min/1.7 3 10/28/2024 12:35 AM T [facility] Blood Venipuncture / Unknown 10/27/2024 11:54 PM EDT 10/28/2024 12:04 AM EDT [facility] - 10/28/2024 12:35 AM EDT GFR [...] Weiner PA-C LAB BLOOD ORDERABLES Final Result [facility]
[address] [place] [address], * MRI Brain Without Contrast (10/27/2024 7:22 PM EDT) Anatomical Region Laterality Modality Head, Neck N/A Magnetic Resonan ce 10/27/2024 10:1 5 PM EDT Impressions 10/27/2024 10:17 PM EDT Impression: Advanced chronic and age-related changes are noted as above. There is otherwise no evidence of acute infarct, hemorrhage, mass or mass effect. Electronically Signed: Saulo Romo MD 10/27/2024 10:17 PM EDT Workstation ID: [id number] Narrative 10/27/2024 10:17 PM EDT MRI BRAIN [...] MD 10/27/2024 10:17 PM EDT Workstation ID: [id number] Lamont Hernandez PA-C IMG MRI ORDERABLES Final Res ult * POC Glucose Once (10/27/2024 5:38 PM EDT) Glucose 117 70 - 130 mg/dL 10/27/2024 5:39 PM EDT [facility] Blood 10/27/2024 5:38 PM EDT 10/27/2024 5:39 PM EDT Saeed Monique MD POINT OF CARE TEST ORDERABLES Final Result [facility]
[address] [place] [address], * Fentanyl, Urine - Urine, Clean Catch (10/27/2024 3:18 PM EDT) Fentanyl, Urine Negative Negative 10/27/2024 4:39 PM EDT [facility] Urine Urine specimen obtained by clean catch procedure / Unknown Collection / Unknown 10/27/2024 3:18 PM EDT 10/27/2024 3:27 PM EDT Narrative [facility] - 10/27/2024 4:39 PM [...] Saeed Monique MD URINE ORDERABLES Final Result [facility]
[address] [place] [address], * Urine Drug Screen - Urine, Clean Catch (10/27/2024 3:18 PM EDT) [facility] THC, Screen, Urine Negative Negative 2024 4:17 PM EDT [facility] Phencyclidine (PCP), Urine Negative Negative 10/27/2024 4:17 PM EDT [facility] Cocaine Screen, Urine Negative Negative 10/27/2024 4:17 PM EDT [facility] Methamphetamine, Ur Negative Negative 10/27 4:17 PM EDT [facility] Opiate Screen Negative Negative 10/27/2024 4:17 PM EDT [facility] Amphetamine Screen, Urine Negative Negative 10/27/2024 4:17 PM EDT [facility] Benzodiazepine Screen, Urine Negative Negative 10/27/2024 4:17 PM EDT [facility] Tricyclic Antidepressants Screen Negative Negative 10/27/2024 4:17 PM EDT [facility] Methadone Screen, Urine Negative Negative 10/27/2024 4:17 PM EDT [facility] Barbiturates Screen, Urine Negative Negative 10/27/2024 4:17 PM EDT [facility] Oxycodone Screen, Urine Negative Negative 10/27/2024 4:17 PM EDT [facility] Buprenorphine, Screen, Urine Negative Negative 10/27/2024 4:17 PM EDT [facility] Urine Urine specimen obtained by clean catch procedure / Unknown Collection / Unknown 10/27/2024 3:18 PM EDT 10/27/2024 3:27 PM EDT Narrative [facility] - 10/27/2024 4:17 PM EDT Cutoff [...] Saeed Monique MD URINE ORDERABLES Final Result [facility]
[address] [place] [address], * EEG AWAKE OR DROWSY PORTABLE (10/27/2024 [...] Epilepsy. Therefore, Clinical correlation is recommended. Roxy Jimenez APRN NEUROLOGY ORDERABLES Fi nal Result NEUROLOGY * POC Glucose Once (10/27/2024 11:15 AM EDT) Glucose 82 70 - 130 mg/dL 10/27/2024 11:16 AM EDT [facility] Blood 10/27/2024 11:1 5 AM EDT 10/27/2024 11:16 AM EDT Saeed Monique MD POINT OF CARE TEST ORDERABLES Final Result Performing Organization Address City/[facility] Co de Phone Number [facility]
[address] [place] [address], * Lipid Panel (10/27/2024 9:46 AM EDT) Total Cholesterol 138 0 - 200 mg/dL 10/27/2024 11:15 AM EDT [facility] Triglycerides 42 0 - 150 mg/dL 10/27/2024 11:15 AM EDT [facility] HDL Cholesterol 56 40 - 60 mg/dL 10/27/2024 11:15 AM EDT [facility] LDL Cholesterol 72 0 - 100 mg/dL 10/27/2024 11:15 AM EDT [facility] VLDL Cholesterol 10 5 - 40 mg/dL 10/27/2024 11:15 AM EDT [facility] LDL/HDL Ratio 1.31 10/27/2024 11:15 AM EDT [facility] Blood Venipuncture / Unknown 10/27/2024 9:46 AM EDT 10/27/2024 10:39 AM EDT Narrative [facility] - 10/27/2024 11:15 AM EDT Cholesterol [...] is calculated using the NIH LDL-C calculation. us Lamont Hernandez PA-C LAB BLOOD ORDERABLES Final R [employer] Performing Organization Address City/[facility] Co de Phone Number [facility]
[address] [place] [address], * Hemoglobin A1c (10/27/2024 9:46 AM EDT) Hemoglobin A1C 5.33 4.80 - 5.60 % 10/27/2024 12:28 PM EDT [facility] Blood Venipuncture / Unknown 10/27/2024 9:46 AM EDT 10/27/2024 10:40 AM EDT Narrative [facility] - 10/27/2024 12:28 PM EDT Hemoglobin A1C Ranges: Increased Risk for Diabetes 5.7% to 6.4% Diabetes >= 6.5% Diabetic Goal < 7.0% us Lamont Hernandez PA-C LAB BLOOD ORDERABLES Final R esult Performing Organization Address City/[facility]/ZIP Co de Phone Number [facility]
[address] [place] [address], * POC Glucose Once (10/27/2024 1:03 AM EDT) Glucose 97 70 - 130 mg/dL 10/27/2024 1:03 AM EDT [facility] Blood 10/27/2024 1:03 AM EDT 10/27/2024 1:03 AM EDT Thien Becker MD POINT OF CARE TEST ORDERABLES F inal Result Performing Organization Address [facility]/ZIP Co de Phone Number [facility]
[address] [place] [address], * Lactic Acid, Plasma (10/26/2024 11:21 PM EDT) Lactate 1.0 0.5 - 2.0 mmol/L 10/27/2024 12:03 AM EDT [facility] Comment:Falsely depressed re sults may occur on samples drawn from patients receiving N-Acetylcysteine (NAC) or Metamizole. Blood Venipuncture / Unknown 10/26/2024 11:21 PM EDT 10/26/2024 11:34 PM EDT us May Barbara MENJIVARN LAB BLOOD ORDERABLES Fi nal Result Performing Organization Address City/[facility]/ZIP Co de Phone Number [facility]
[address] [place] [address], * (ABNORMAL) CK (10/26/2024 11:21 PM EDT) Creatine Kinase 245(H) 20 - 200 U/L 10/27/2024 12:01 AM EDT [facility] Blood Venipuncture / Unknown 10/26/2024 11:21 PM EDT 10/26/2024 11:34 PM EDT us May Barbara [employer] LAB BLOOD ORDERABLES Fi nal Result [facility]
[address] [place] [address], [place] [phone] * CT Outside Head (10/26/2024 12:10 AM [...] Anatomical Region Laterality Modality Radiographic Guillermina ging us [place] [facility] IMG DIAGNOSTIC IMAGING ORDERA BLES Final Result [...] Every 24 Hours Scheduled, First dose on Tue10/28/24 at 1415, Hold for SBP less than 100, DBP less than 60. Caution: Look alike/sound alike drug alert. Avoid grapefruit juice. Given 10/29/2024 11:01 AM EDT 5 mg Given 10/28/2024 1:49 PM EDT 5 mg aspirin chewable tablet 81 mg 81 mg, Oral, Daily, First dose on Tue10/26/24 at 1999, If patient fails dysphagia, ID option MUST be given. Do not exceed [...] Tue10/26/24 at 1999, If patient fails dysphagia, ID option MUST be given. Do not exceed [...] on 10/27/24 at 2100, Avoid grapefruit juice. Given 11/01/2024 [...] day, May switch to NS IV at [facility] if renal / if indicated Currently [...] tablet 40 mg 40 mg, Oral, Every Bale Piler, First dose on Tue11/01/24 at 0600, Do [...] injection 40 mg 40 mg, Intravenous, Every Bale Piler, First dose (after last modification) on Tue10/30/24 [...] Tue10/26/24 at 1999, If patient fails dysphagia, ID option MUST be given. Do not exceed [...] Snider RN) 0810 (Given - Provider: Jillian Kiser RN) 1300 (Given - Provider: Ronnie Carter RN) aspirin suppository 300 mg(Linked Group 1) 300 mg, Rectal, Daily, First dose on Tue10/26/24 at 1999, If patient fails dysphagia, ID option MUST be given. Do not exceed [...] (Not Given: See Alt - Provider: Ronnie Carter, AVILA) atorvastatin (LIPITOR) tablet 40 mg 40 mg, Oral, Nightly, First dose (after last modification) on Tue10/27/24 at 2100, Avoid grapefruit juice. 2204 (Given - Provider: Niru Ariza RN) 2019 [...] Jeanne Snider RN)1738 (Given - Provider: Jeanne Brown, RN) 0810 (Given - Provider: Jillian Kiser, RN)1759 (Given - Provider: Jillian Kiser, RN) 1300 (Given - Provider: Ronnie Carter, RN) losartan (COZAAR) tablet 25 mg 25 mg, Oral, Every 24 Hours Scheduled, First dose on Tue11/01/24 at 1100, Hold for SBP less than 100, DBP less than 60. 1147 (Given - Provider: Jillian Kiser, RN) 1301 (Given - Provider: Ronnie Carter, RN) pantoprazole (PROTONIX) EC tablet 40 mg 40 mg, Oral, Every Bale Piler, First dose on Tue11/01/24 at 0600, Do [...] 40 mg (CANCELED) 40 mg, Intravenous, Every Bale Piler, First dose (after last modification) on Tue10/30/24 at 0600, Dilute with 10 mL of 0.9% NaCl and give IV push over 2 minutes., Indications: Gastroesophageal Reflux Disease 0528 (Given - Provider: Elmer Browne RN) sodium chloride 0.9 % flush 10 mL 10 mL, Intravenous, Every 12 Hours Scheduled, First dose on Tue10/26/24 at 2100 0900 (Given - Provider: Jeanne Snider RN)2205 (Given - Provider: Niru Airza RN) 0915 (Given - Provider: Jillian Kiser, RN)2020 (Given - Provider: Amita Decker, AVILA) 1312 [...] at 2348 2020 (Given - Provider: Joel Decker RN) sodium chloride 0.9 % flush 10 [...] Tue10/26/24 at 1999, If patient fails dysphagia, ID option MUST be given. Do not exceed [...] Tue10/26/24 at 1999, If patient fails dysphagia, ID option MUST be given. Do not exceed 4 grams of aspirin in a 24 hr period. 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
--- OUTSIDE RECORDS SUMMARY | 2024-10-29 04:20 | XMS_ITS ---
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 The data comes from the [place] facility where the Encounter took place. Date/Time Smoking Status/Tobacco Use Comment F acility Oct 21, 2022 09:58 AM NE-TOBACCO NEVER USED [facility] Jul 23, 2021 11:35 AM NE-TOBACCO NEVER USED [facility] Nov 01, 2001 10:14 AM HF V9 CURRENT NON-SMOKER [facility] Sep 19, 2000 11:13 AM HF V9 CURRENT NON-SMOKER quit 1982 [facility] Advance Directives: All historical and current [...] Feb 02, 2021 [facility] Feb 13, 2020 ADVANCE DIRECTIVE DISCUSSION VANE [facility]
--- OUTSIDE RECORDS SUMMARY | 2024-10-29 09:04 | XMS_ITS | Encounter Summary ---
Author Organization [facility] Address [address] [place] [address] Care Team Providers Care Cargo Bracer Name Role Phone Provider, No Known Primary Care Provider Unavail able Reason for Visit * Auth/Cert Specialty Diagnoses / Procedures Referred By Rosangela t Referred To Contact Diagnoses Cerebrovascular Accident CVA Referral ID Status Reason Start Date Expiration Date Visits Re quested Visits Authorized [id number] 1 1 Encounter Details Date Type Department Care Team (Late st Contact Info) Description 10/29/2024 9:04 AM EDT - 10/29/2024 9:38 AM EDT Surgery [facility] ENDO SUITES [address] [id number] Mian Garcia MD [address] [place] [address] ESOPHAGOGASTRODUODENOSCOPY [89760 (CPT )] Social History Tobacco Use Types Packs/Day Years Used Date Smoking Tobacco: Never Assessed [facility] Utilities Answer Date Recorded In the past 12 months has [employer], gas, oil, or water [email or web address] threatened to shut off services in your [...] GED or equivalent No 10/29/2024 Preferred Language Tanzanian 10/29/2024 Sex and Gender Information Value Date [...] from the original note were not included. [facility] Medicine Services DISCHARGE SUMMARY Patient Name: Jessica [...] MD 10/27/2024 10:17 PM EDT Workstation ID: [id number] EEG Result Date: 10/27/2024 History: 89 y [...] minutes on this discharge activity which included: crff-uo-ecauugtknrzse with the patient, reviewing the data in the system, coordination of the care with the nursing staff as well as consultants, documentation, and entering orders. * Han Martin RN - 10/29/2024 11:16 AM EDT Images from the original note were not included. Jessica Burnham (89 y.o. 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 [phone] Looking for short term rehab Date of 1935 Social Security Number [id number] [place] [address] Scientologist None Marital Status Single Admission Date 10/26/2024 Admission Type Urgent Admitting Provider Saeed Monique MD Attending Provider Saeed Monique MD Department, Room/Bed [facility] 3F, S318/1 Discharge Date Discharge Disposition Discharge Destination Attending Provider: Saeed Monique MD Allergies: No Known Allergies Isolation: None Infection: None Code Status: Not on file Ht: -- Wt: 68 kg (150 lb) Admission Cmt: None Principal Problem: Stroke-like symptoms [R29.90] Active Insurance as of 10/26/2024 Primary Coverage Payor Plan Insurance Group Employer/Plan Group [facility] [employer] Payor Plan Address Payor Plan Phone Number Payor Plan Fax Number Effective Dates [id number] 04/18/2024 - None Entered [facility] [id number] Subscriber Name Subscriber Date Member ID JESSICA BURNHAM 1935 [id number] Emergency Contacts 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 Sex: male : 1935 Visit Number: [id number] Admit Date: 10/26/2024 Room number: S318/1 Primary Care Physician: Provider, No Known Date of Admission: 10/26/2024 Subjective Chief complaint: Confusion History of presenting illness: This is an 89 male from correction with a past medical history of COPD, dementia, sciatica, and hypertension presenting with altered mental status. Pt found to have confusion, dysarthria, and bilateral lower extremity drift. Last known well has not been established. The patient initially presented to [facility] with vitals WNL and imaging showing CT head with changes to right MCA territory right frontal, No right MCA LVO identified. 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 He has been transferred to [...] hours) Saeed Monique MD at 10/28/24 1324 [facility] Medicine Services PROGRESS NOTE Patient Name: Jessica [...] MD 10/27/2024 10:17 PM EDT Workstation ID: [id number] EEG Result Date: 10/27/2024 History: 89 y [...] asa 81mg daily and lipitor 40mg qhs. 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 Total chol 138 HDL 56 LDL 72 Dysphagia --RN MILITARY states that solids get stuck and then [...] is lying down in the bed in [facility]. No family were at the bedside. The [...] light touch throughout Coordination: no ataxia with lzzxow-dg-qnus testing Gait/Station: deferred Results Review: I reviewed [...] MD 10/27/2024 10:17 PM EDT Workstation ID: [id number] -CTH wo on 10/26/2024 images were personally [...] 10/27/2024 was 72 Assessment/Plan This is 89-year-old -Croatian male, right-handed with multiple vascular risk factor presented to outside hospital for altered mental status. Transferred to our facility for full stroke workup and higher level of care. Patient was not a candidate for IV thrombolytic therapy or mechanical thrombectomy as he was back to his baseline. Antiplatelet LIFE SCIENCE TECHNICIAN: Aspirin 325 mg Anticoagulant LIFE SCIENCE TECHNICIAN: None #Acute encephalopathy in the setting of dementia and possible infection #Extensive periventricular and deep white matter hyperintensities favoring chronic small vessel ischemic changes #Reported left M2 stenosis iCAD -Etiology of patient's symptoms likely due to acute encephalopathy in the setting of baseline dementia versus possible seizures. This is less likely to be vascular in nature -[facility] wo on 10/26/2024 images were personally [...] protocol -Activity as tolerated, fall risk precautions -PT/OT/RN MILITARY evaluation #Essential hypertension, complicated by uncontrolled hypertension [...] Roby Mckenzie MD, Msc, PhD Vascular Neurologist [facility] 1306 Physical Therapy Notes (most [...] Treatment physical therapy -MAI Row Name 10/28/24 9588 General Information Patient Profile Reviewed yes -MAI Prior Level of Function -- Per chart facility resident, limited historian. -MAI Existing Precautions/Restrictions fall;other (see comments) cognition -MAI Barriers to Rehab cognitive status;previous functional deficit -MAI Row Name 10/28/24 1706 Living Environment Current Living Arrangements residential facility -MAI Row Name 10/28/24 5261 Safety Issues/Impairments Affecting Functional Mobility Impairments Affecting Function (Mobility) balance;cognition;endurance/activity tolerance;postural/trunk control -MAI User Carmona (r) = Recorded By, (t) = Taken By, (c) = Cosigned By Initials Name Provider Type Jennifer Olvera PT Physical Therapist Mobility Row Name 10/28/24 1528 Bed Mobility Bed Mobility supine-sit -MAI Supine-Sit Hitchcock (Bed Mobility) verbal cues;nonverbal cues (demo/gesture);minimum assist (75% patient effort) -MAI Assistive Device (Bed Mobility) head of bed elevated;bed rails -MAI Comment, (Bed Mobility) Pt utilized bed rail -MAI Row Name 10/28/24 1528 Transfers Comment, (Transfers) Cues for sequencing and hand placement with FWW. -MAI Row Name 10/28/24 1528 Sit-Stand Transfer Sit-Stand Hitchcock (Transfers) minimum assist (75% patient effort) -MAI Assistive Device (Sit-Stand Transfers) walker, front-wheeled -MAI Comment, (Sit-Stand Transfer) VCs -MAI Row Name 10/28/24 1528 Gait/Stairs (Locomotion) Hitchcock Level (Gait) contact guard -MAI Assistive Device [...] PT) sit to supine/supine to sit -MAI Hitchcock Level/Cues Needed (Bed Mobility Goal 1, PT) independent -MAI Time Frame (Bed Mobility Goal 1, PT) terminal worker goal (LTG);10 days -MAI [facility] Name 10/28/241534 Transfer Goal 1 (PT) Activity/Assistive Device (Transfer Goal 1, PT) dim-xs-wgwiv/lpwid-xi-tpn -MAI Hitchcock Level/Cues Needed (Transfer Goal 1, PT) modified independence -MAI Time Frame (Transfer Goal 1, PT) short term goal (STG);5 days -MAI [facility] Name 10/28/241534 Gait Training Goal 1 (PT) Activity/Assistive Device (Gait Training Goal 1, PT) gait (walking locomotion);assistive device use-MAI Hitchcock Level (Gait Training Goal 1, PT) modified independence -MAI Distance (Gait Training Goal 1, PT) 100 -MAI Time Frame (Gait Training Goal 1, PT) residential goal (LTG);10 days -MAI [facility] Name 10/28/241534 Therapy Assessment/Plan (PT) Planned Therapy [...] Nurse Physical Therapy Education Title: PT OT RN MILITARY Therapies (In Progress) Topic: Physical Therapy (In [...] Description Service Date Service Provider Modifiers Qty [id number] HC-PT EVAL MOD COMPLEXITY 5 10/28/2024 Jennifer Hendrickson PT 1 PT G-Codes Outcome Measure Options: AM-PAC 6 Clicks Basic Mobility (PT) AM-PAC 6 Clicks Score (PT): 18 PT Discharge Summary Anticipated Discharge Disposition (PT): senior living facility Jennifer Hendrickson, [facility] 10/28/2024 1538 Occupational [...] Notes (most recent note) Sissy Lopez MS CCC-RN MILITARY at 10/27/24 1447 Goal Outcome Evaluation: Plan of Care Reviewed With: patient Anticipated Discharge Disposition (RN MILITARY): senior living facility RN MILITARY Diagnosis: mild, cognitive-linguistic disorder (10/27/24 1300) RN MILITARY Swallowing Diagnosis: functional oral phase, R/O pharyngeal [...] Lopez MD - 11/02/2024 10:17 AM EDT [facility] Cardiology Inpatient Progress Note Chief Complaint/Reason for [...] been in atrial fibrillation since presentation to [facility] - GDMT: carvedilol, added losartan with elevated BP - asymptomatic, euvolemic Anticipate d/c home today. Can follow-up in 2 months. Vu Lopez MD 11/02/2024 10:17 EDT * Milka Leblanc APRN - 11/01/2024 12:40 PM EDT Images from the original note were not included. [facility] Medicine Services PROGRESS NOTE Patient Name: Jessica [...] with more conservative management at thistime. Dysphagia --RN MILITARY states that solids get stuck and then [...] needed [place] --lives alone. Pt of [facility]. Has caregivers help 4 days a [...] Lopez MD - 11/01/2024 10:09 AM EDT [facility] Cardiology Inpatient Progress Note Chief Complaint/Reason for [...] been in atrial fibrillation since presentation to [facility] - GDMT: carvedilol, add losartan with elevated BP - asymptomatic, euvolemic Vu Lopez MD 11/01/2024 10:09 EDT * Clark Lopez MD - 10/31/2024 4:49 PM EDT [facility] Cardiology Inpatient Progress Note Chief Complaint/Reason for [...] MD 10/31/2024 16:50 EDT * Milka Leblanc, SOFTWARE TESTER - 10/31/2024 11:11 AM EDT Images from the original note were not included. [facility] Medicine Services PROGRESS NOTE Patient Name: Jessica [...] asa 81mg daily and lipitor 40mg qhs. 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 Dysphagia --RN MILITARY states that solids get stuck and then [...] needed [place] --lives alone. Pt of [facility]. Has caregivers help a few days a week. Dtr/next of kin [place]. Pref[place] or if not wants local SNF, but [...] from the original note were not included. [facility] Medicine Services PROGRESS NOTE Patient Name: Jessica [...] asa 81mg daily and lipitor 40mg qhs. 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 Dysphagia --RN MILITARY states that solids get stuck and then [...] needed [place] --lives alone. Pt of [facility]. Has caregivers help a few days a week. Da/next of kin wants SNF [place]. Prefers [place] or if not wants local SNF. Updated CM 10/29. Daily Care Communication Due to current limited visitation policies, an attempt will be made daily to update patient's identified best [id number](s) Contact: Saranya Carter Relation: sherita Time of communication: 1350 Notes (if applicable): Attempted to call patient's daughter/next of kin to update on care today andalso to clarify CODE STATUS as it is not on file. She did not answer. Expected Discharge Location and Transportation: [place] [place] [facility] or somewhere local. Expected Discharge Expected Discharge Date: 10/31/2024; Expected Discharge Time: VTE Prophylaxis: Mechanical VTE prophylaxis orders are present. AM-PAC 6 Clicks Score (PT): 17 (10/30/24 1124) CODE STATUS: There are no questions and answers to display. Che Kiser, SOFTWARE TESTER 07/15/25 * Michell Carroll, SOFTWARE TESTER - 10/30/2024 8:19 AM EDT [facility] Cardiology Inpatient Progress Note Chief Complaint/Reason for [...] from the original note were not included. [facility] Medicine Services PROGRESS NOTE Patient Name: Jessica [...] MD 10/27/2024 10:17 PM EDT Workstation ID: [id number] Results for orders placed during the hospital [...] asa 81mg daily and lipitor 40mg qhs. 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 Pt of [facility]. Has caregivers help a few days a week. Da wants SNF. Prefers [place] or if not wants local SNF. Updated CM. Daily Care Communication Due to current limited visitation policies, an attempt will be made daily to update patient's identified best [id number](s) Contact: Saranya Carter Relation: sherita Time of communication: 1330 Notes (if applicable): Spoke with patient's daughter/next of kin via phone. Updated on results of EGD. Discussed past medical history as patient [place] patient with no history on file here. Explained patient in rate controlled A-fib and new CHF based on echo. History of these prior note per daughter. Does she feels patient would not be a good candidate for anticoagulation due to age and dementiawith falls. Agreeable to aspirin if indicated. For patient to transfer at discharge to a [place] rehab center if possible. Expected Discharge Location and Transportation: [facility] [place] [facility] [place] [facility] or somewhere local. Expected Discharge Expected Discharge Date: 10/29/2024; Expected Discharge Time: VTE Prophylaxis: Mechanical VTE prophylaxis orders are present. AM-PAC 6 Clicks Score (PT): 16 (10/29/24 1400) CODE STATUS: There are no questions and answers to display. Che Kiser APRN 10/29/24 * Saeed Monique MD - 10/28/2024 1:24 PM EDT Images from the original note were not included. [facility] Medicine Services PROGRESS NOTE Patient Name: Jessica [...] MD 10/27/2024 10:17 PM EDT Workstation ID: [id number] EEG Result Date: 10/27/2024 History: 89 y [...] asa 81mg daily and lipitor 40mg qhs. 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 Total chol 138 HDL 56 LDL 72 Dysphagia --RN MILITARY states that solids get stuck and then [...] light touch throughout Coordination: no ataxia with vgpbth-az-zjxo testing Gait/Station: deferred Results Review: I reviewed [...] MD 10/27/2024 10:17 PM EDT Workstation ID: [id number] -CTH wo on 10/26/2024 images were personally [...] 10/27/2024 was 72 Assessment/Plan This is 89-year-old -Croatian male, right-handed with multiple vascular risk factor presented to outside hospital for altered mental status. Transferred to our facility for full stroke workup and higher level of care. Patient was not a candidate for IV thrombolytic therapy or mechanical thrombectomy as he was back to his baseline. Antiplatelet LIFE SCIENCE TECHNICIAN: Aspirin 325 mg Anticoagulant LIFE SCIENCE TECHNICIAN: None #Acute encephalopathy in the setting of [...] protocol -Activity as tolerated, fall risk precautions -PT/OT/RN MILITARY evaluation #Essential hypertension, complicated by uncontrolled hypertension -As detailed above #Hyperlipidemia -As detailed above #Dementia -Continue home meds -Management by medicine team #Left lower extremity swelling -Doppler left lower extremity is unremarkable #Microcytic anemia - H&H stable - Monitor any signs and symptoms of bleed - Management by medicine team Stroke will sign off. Please call for any further questions or concerns Roby Mkcenzie MD, Msc, PhD Vascular Neurologist [facility] * Roby Mckenzie MD - [...] x 2 (stated that he is in [place] at [facility]), interactive, ableto follow commands Speech: Intact Articulation CN 2-12: II - PERRLA III, IV, - EOMI VII -no gross facial asymmetry VIII - Auditory acuity intact XII - Tongue protrudes midline Motor: Patient is able to move all 4 extremities against gravity with no drift appreciated Sensory: intact light touch throughout Coordination: no ataxia with ejlkbo-xt-flxg testing Gait/Station: deferred Results Review: I reviewed [...] 10/27/2024 was 72 Assessment/Plan This is 89-year-old -Croatian male, right-handed with multiple vascular risk factor presented to outside hospital for altered mental status. Transferred to our facility for full stroke workup and higher level of care. Patient was not a candidate for IV thrombolytic therapy or mechanical thrombectomy as he was back to his baseline. Antiplatelet LIFE SCIENCE TECHNICIAN: Aspirin 325 mg Anticoagulant LIFE SCIENCE TECHNICIAN: None #Acute encephalopathy in the setting of [...] protocol -Activity as tolerated, fall risk precautions -PT/OT/RN MILITARY evaluation #Essential hypertension, complicated by uncontrolled hypertension [...] Roby Mckenzie MD, Msc, PhD Vascular Neurologist [facility] * Saeed Monique MD - 10/27/2024 2:02 PM EDT Images from the original note were not included. [facility] Medicine Services PROGRESS NOTE Patient Name: Jessica [...] chol 138 HDL 56 LDL 72 Dysphagia --RN MILITARY states that solids get stuck and then [...] from the original note were not included. [facility] Patient Identification: Name: Jessica Burnham Age: 89 y.o. Sex: male : 1935 Visit Number: [id number] Admit Date: 10/26/2024 Room number: S318/1 Primary Care Physician: Provider, No Known Date of Admission: 10/26/2024 Subjective Chief complaint: Confusion History of presenting illness: This is an 89 male from correction with a past medical history of COPD, dementia, sciatica, and hypertension presenting with altered mental status. Pt found to have confusion, dysarthria, and bilateral lower extremity drift. Last known well has not been established. The patient initially presented to [facility] with vitals WNL and imaging showing CT head with changes to right MCA territory right frontal, No right MCA LVO identified. 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 He has been transferred to [...] -Continue to monitor SaO2 [facility]26[facility] 19:21 EDT documented in this encounter Consult Notes * Clark Lopez MD - 10/29/2024 2:52 PM EDTAssociated Order(s): IP CONSULT TO CARDIOLOGY [facility] Cardiology Initial Consult Note Patient Identification: Jessica Burnham 89 y.o. male 1935 [id number] Date of Consultation: 10/29/24 Reason for Consultation: atrial fibrillation, decreased EF PCP: Provider, No Known Primary milk sampler: none Referring physician: Saeed Monique MD History of Present Illness: Jessica Burnham is a 89 y.o. with a history of HTN, MCI, BPH, GERD, CKD who was transferred to [facility] from [facility] due to concern for stroke. Per the [...] records are available for review through the [place] system which do not show these diagnoses [...] to share in the care of Jessica Burnhma. Vu Lopez MD 10/29/24 14:52 EDT * Ester Woodard RN - 10/29/2024 8:26 AM EDTAssociated Order(s): IP CONSULT TO HOP FARMER Diabetes Education Patient Name: Jessica Burnham Date [...] 2:51 PM EDTAssociated Order(s): Inpatient Gastroenterology Consult [facility]: Inpatient Gastroenterology Consult Inpatient Gastroenterology Consult Consult [...] MD 10/27/2024 10:17 PM EDT Workstation ID: [id number] EEG Result Date: 10/27/2024 History: 89 y [...] PATIENT SEEN: 1902 EST Handedness: Right Race: -Croatian Chief Complaint/Reason for Consultation: Was found altered HPI: This is Mr. Jessica Armstrong 89-year-old -Croatian male, right- handed, with significant health diagnosis for dementia, former smoker and alcohol drinker, COPD, hypertension, hyperlipidemia, sciatica who presented to our facility as a direct admit from [facility] for stroke workup and higher level [...] Plantar: downgoing Left Plantar: downgoing Coordination Right: Tmifyj-mk-grtg normal.Left: Fbmypf-wk-afwj normal. Gait Unable to assess. Physical Exam [...] sodium chloride Functional Status Prior to Current Stroke/Edgerton Score: 1-2 NIH Stroke Scale Time: 21:52 [...] Atherosclerosis intra extracranial Assessment/Plan: This is 89-year-old -Croatian male, right-handed with multiple vascular risk factor presented to outside hospital for altered mental status. Transferred to our facility for full stroke workup and higher level of care. Patient was not a candidate for IV thrombolytic therapy or mechanical thrombectomy as he was back to his baseline. Antiplatelet LIFE SCIENCE TECHNICIAN: Aspirin 325 mg Anticoagulant LIFE SCIENCE TECHNICIAN: None Transient alteration of mental status in [...] pending -Activity as tolerated, fall risk precautions -PT/OT/RN MILITARY evaluation - Neurology stroke will continue to [...] morning, its night time. * Kristal Benavidez, CF-RN MILITARY - 11/01/2024 4:02 PM EDT Goal Outcome Evaluation: Plan of Care Reviewed With: patient, child Anticipated Discharge Disposition (RN MILITARY): senior living facility Treatment Assessment (RN MILITARY): continued, toleration of diet, cognitive-linguistic disorder (11/01/24 1540) Plan for Continued Treatment (RN MILITARY): continue treatment per plan of care (11/01/24 [...] senior living facility * Sissy Lopez MS [facility]-RN MILITARY - 10/30/2024 4:07 PM EDT Goal Outcome Evaluation: Plan of Care Reviewed With: patient Anticipated Discharge Disposition (RN MILITARY): senior living facility RN MILITARY Diagnosis: mild, cognitive-linguistic disorder (10/30/24 1430) RN MILITARY Swallowing Diagnosis: functional oral phase, R/O pharyngeal dysphagia, suspected esophageal dysphagia (10/30/24 1430) Treatment Assessment (RN MILITARY): continued, mild, cognitive-linguistic disorder (10/30/24 1430) Treatment Assessment Comments (RN MILITARY): Patient tolerated trials of soft solids w/o discomfort or s/s of aspiration. EGD completed on 10/29/24 with dilation completed. Diet upgraded this date to soft chopped and thin liquids. Patient continues with mild cognitive linguistic impairment. (10/30/24 143) Plan for Continued Treatment (RN MILITARY): continue treatment per plan of care (10/30/24 [...] (P) senior living facility Cosigned by Yvonne Felder PT at [...] Disposition (OT): senior living facility * Jennifer Hendrickson, PT - 10/28/2024 [...] confusion, dysarthria, and BLE drift. Transferred from [facility]. Today 10/27 pt is A&O x3 with [...] confusion, dysarthria, and BLE drift. Transferred from [facility]. Today 10/27 pt is A&O x3 with some mild confusion to situation. Cooperative today. SLPcleared pt for pureed diet w/ thin liquids. Tolerating diet so fare. MRI screening sheet in chart, MRI pending. EEG completed. UA drug screen-negative. * Sissy Lopez MS [facility]-RN MILITARY - 10/27/2024 2:47 PM EDT Goal Outcome Evaluation: Plan of Care Reviewed With: patient Anticipated Discharge Disposition (RN MILITARY): senior living facility RN MILITARY Diagnosis: mild, cognitive-linguistic disorder (10/27/24 1300) RN MILITARY Swallowing Diagnosis: functional oral phase, R/O pharyngeal [...] esophageal dilations performed at 48 and 51 Setswana, without mucosal disruption. >> Assess response to empiric esophageal dilation. >> Decrease PPI to once daily. Please call with questions or concerns. Mian Garcia MD Date: 10/29/2024 Time: 09:45 EDT documented in this encounter Miscellaneous Notes * Therapy Treatment Note - Kristal Benavidez MS CF-RN MILITARY - 11/01/2024 4:04 PM EDT Images from the original note were not included. Acute Care - Speech Language Pathology Swallow Treatment Note [facility] Patient Name: Jessica Burnham : 1935 Today's [...] Procedure: ESOPHAGOGASTRODUODENOSCOPY; Surgeon: Mian Garcia MD; Location: [facility]; Service: Gastroenterology; Laterality: N/A; RN MILITARY Recommendation and Plan RN MILITARY Diet Recommendation: soft to chew textures, chopped, thin liquids (11/01/241539) Recommended Precautions and Strategies: upright posture during/after eating, small bites of food and sips of liquid, reflux precautions (11/01/241539) RN MILITARY Rec. for Method of Medication Administration: meds whole, meds crushed, with puree, as tolerated (11/01/241539) Monitor for Signs of Aspiration: notify RN MILITARY if any concerns (11/01/241539) Anticipated Discharge Disposition (RN MILITARY): home with [facility] care (11/01/241539) Therapy Frequency (Swallow): 3 days per week (11/01/241539) Predicted Duration Therapy Intervention (Days): 1 week (11/01/241539) Oral Care Recommendations: Oral Care BID/PRN, Toothbrush (11/01/241539) Daily Summary of Progress (RN MILITARY): progress toward functional goals as expected (11/01/241539) Treatment Assessment (RN MILITARY): continued, toleration of diet, cognitive-linguistic disorder (11/01/241539) Plan for Continued Treatment (RN MILITARY): continue treatment per plan of care (11/01/241539) SWALLOW EVALUATION (Last 72 Hours) RN MILITARY Adult Swallow Evaluation Row Name 11/01/24 1540 10/30/24 1430 RN MILITARY Evaluation Clinical Impression RN MILITARY Swallowing Diagnosis -- functional oral phase;R/O pharyngeal dysphagia;suspected esophageal dysphagia -CH Functional Impact -- risk of aspiration/pneumonia;risk of malnutrition -CH Rehab Potential/Prognosis, Swallowing -- good, to achieve stated therapy goals -CH Swallow Criteria for Skilled Therapeutic Interventions Met -- demonstrates skilled criteria -CH RN MILITARY Treatment Clinical Impressions Treatment Assessment Comments (RN MILITARY) -- Patient tolerated trials of soft solids w/o discomfort or s/s of aspiration. EGD completed on 10/29/24 with dilation completed. Diet upgraded this date to soft chopped and thin liquids. Patient continues with mild cognitive linguistic impairment. - Recommendations Therapy Frequency (Swallow) 3 days per week - PRN;5 days per week - RN MILITARY Diet Recommendation soft to chew textures;chopped;thin liquids [...] Care BID/PRN;Toothbrush - Oral Care BID/PRN;Toothbrush - RN MILITARY Rec. for Method of Medication Administration meds whole;meds crushed;with puree;as tolerated - meds whole;meds crushed;with puree;as tolerated - Monitor for Signs of Aspiration notify RN MILITARY if any concerns - notify RN MILITARY if any concerns - Anticipated Discharge Disposition (RN MILITARY) home with 08/11 care - -- User Carmona (r) = Recorded By, (t) = Taken By, (c) = Cosigned By Initials Name Effective Dates Sissy Lopez, [facility]-RN MILITARY 05/07/24 - Kristal Tovar MS CF-RN MILITARY 09/20/24 - EDUCATION The patient has been educated in the following areas: Cognitive Impairment Communication Impairment Dysphagia (Swallowing Impairment). RN MILITARY GOALS Row Name 11/01/24 1540 10/30/24 1430 (LTG) Patient will demonstrate functional swallow for Diet Texture (Demonstrate functional swallow) soft to chew (chopped) textures - soft to chew (chopped) textures - Liquid viscosity (Demonstrate functional swallow) thin liquids -SM thin liquids - Hitchcock (Demonstrate functional swallow) with minimal cues (75-90% [...] signs/symptoms of aspiration;with adequate oral prep/transit/clearance - Hitchcock (Tolerate trials) with minimal cues (75-90% accuracy) [...] cognitive-linguistic skills for return to discharge environment Hitchcock with minimal cues -SM with minimal cues -CH Time frame 1 week -SM 1 week -CH Progress/Outcomes continuing progress toward goal -SM continuing progress toward goal -CH RN MILITARY Diagnostic Treatment Patient will participate in further assessment in the following areas clarification of baseline cognitive communication status - clarification of baseline cognitive communication status - Time Frame (Diagnostic) 1 week -SM 1 week -CH Progress/Outcomes (Additional Goal 1, RN MILITARY) goal met -SM continuing progress toward goal -CH Comment (Diagnostic) Daughter present in room, attests that pt is at baseline cog fx -SM -- Word Retrieval Skills Goal 1 (RN MILITARY) Improve Word Retrieval Skills By Goal 1 (RN MILITARY) high frequency;responsive naming task;completing a divergent task;80%;with minimal cues (75-90%) - high frequency;responsive naming task;completing a divergent task;80%;with minimal cues (75-90%) - Time Frame (Word Retrieval Goal 1, RN MILITARY) 1 week -SM 1 week -CH Progress (Word Retrieval Skills Goal 1, RN MILITARY) -- 80%;with minimal cues (75-90%) - Progress/Outcomes (Word Retrieval Goal 1, RN MILITARY) goal no longer appropriate - continuing progress toward goal -CH Comment (Word Retrieval Goal 1, RN MILITARY) Pt at baseline cog fx -SM -- Orientation Goal 1 (RN MILITARY) Improve Orientation Through Goal 1 (RN MILITARY) demonstrating orientation to day;demonstrating orientationto month;demonstrating orientation to year;demonstrating orientation to place;demonstrating orientation to disease/impairment;use environmental aids to assist with orientation;80%;with minimal cues (75-90%) -SM demonstrating orientation to day;demonstrating orientation to month;demonstrating orientation to year;demonstrating orientation to place;demonstrating orientation to disease/impairment;useenvironmental aids to assist with orientation;80%;with minimal cues (75-90%) - Time Frame (Orientation Goal 1, RN MILITARY) 1 week -SM 1 week -CH Progress (Orientation Goal 1, RN MILITARY) 30%;with minimal cues (75-90%) -SM 50%;with minimal cues (75-90%) -CH Progress/Outcomes (Orientation Goal 1, RN MILITARY) goal no longer appropriate -SM continuing progress toward goal -CH Comment (Orientation Goal 1, RN MILITARY) Oriented to self and place -SM Oriented to self and grossly to place, not to time or situation - Memory Skills Goal 1 (RN MILITARY) Improve Memory Skills Through Goal 1 (RN MILITARY) recalling related word lists immediately;recall details of the day;90%;with minimal cues (75-90%) -SM recalling related word lists immediately;recall details of the day;90%;with minimal cues (75-90%) - Time Frame (Memory Skills Goal 1, RN MILITARY) 1 week -SM 1 week -CH Progress (Memory Skills Goal 1, RN MILITARY) 30%;with minimal cues (75-90%) -SM 40%;with minimal cues (75-90%) - Progress/Outcomes (Memory Skills Goal 1, RN MILITARY) goal no longer appropriate -SM continuing progress toward goal - Comment (Memory Skills Goal 1, RN MILITARY) Could not recall details of day, recalled 2/3 related words immediately - -- User Carmona (r) = Recorded By, (t) = Taken By, (c) = Cosigned By Initials Name Provider Type Sissy Saldana MS CCC-RN MILITARY Speech and Language Pathologist Kristal Tovar MS CF-RN MILITARY Speech and Language Pathologist Time Calculation: Time Calculation- RN MILITARY Row Name 11/01/24 1603 Time Calculation- RN MILITARY RN MILITARY Start Time 1540 -SM RN MILITARY Received On 11/01/24 -SM Untimed Charges 81272-CD Treatment/ST Modification Prosth Aug Alter 27 -SM 47891-TF Treatment Swallow Minutes 10 -SM Total Minutes Untimed Charges Total Minutes 37 -SM Total Minutes 37 -SM User Carmona (r) = Recorded By, (t) = Taken By, (c) = Cosigned By Initials Name Provider Type LINDSEY Kristal Benavidez, CF-RN MILITARY Speech and Language Pathologist Therapy Charges for Today Code Description Service Date Service Provider Modifiers Qty 95755792485 HC ST TREATMENT SPEECH 2 11/01/2024 Kristal Benavidez MS CF-RN MILITARY GN [address] TREATMENT SWALLOW 1 11/01/2024 Kristal Benavidez MS CF-RN MILITARY GN 1 Kristal Benavidez, CF-RN MILITARY 11/01/2024 * Case Management/Social Work - Dagmar Matta RN - 11/01/2024 3:22 PM EDT Continued Stay Note [place] Patient Name: Jessica Burnham Today's Date: 11/01/2024 [...] 10/31/2024 1:50 PM EDT Continued Stay Note [place] Patient Name: Jessica Burnham Today's Date: 10/31/2024 Admit Date: 10/26/2024 Plan: SNF Discharge Plan Row Name 10/31/24 1346 Plan Plan SNF Patient/Family in Agreement with Plan yes Plan Comments CM spoke with patient's daughter, Saranya via phone regarding DCP. Saranya states she does not want patient to go to [facility] for rehab. Saranya would like [place] referrals only. Saranya states she will [...] Procedure: ESOPHAGOGASTRODUODENOSCOPY; Surgeon: Mian Garcia MD; Location: [facility]; Service: Gastroenterology; Laterality: N/A; General Information Row Name 10/31/24 1504 Physical Therapy Time and Intention Document Type therapy note (daily note) -AB Mode of Treatment physical therapy -AB Row Name 10/31/24 8649 General Information Patient Profile Reviewed yes -AB [...] Type AB Razia Jurado PT Physical Therapist Mobility Row Name 10/31/24 1505 Bed Mobility Bed Mobility supine-sit;sit-supine;scooting/bridging -AB Scooting/Bridging Hitchcock (Bed Mobility) contact guard;1 person assist -AB Supine-Sit Hitchcock (Bed Mobility) contact guard;1 person assist -AB Sit-Supine Hitchcock (Bed Mobility) contact guard;1 person assist -AB Assistive Device (Bed Mobility) head of bed elevated -AB Comment, (Bed Mobility) increased time/effort. -AB Row Name 10/31/24 1505 Transfers Comment, (Transfers) Cues for hand placement and sequencing. -AB Row Name 10/31/24 1505 Sit-Stand Transfer Sit-Stand Hitchcock (Transfers) contact guard;verbal cues;1 person assist -AB Assistive Device (Sit-Stand Transfers) walker, front-wheeled -AB Row Name 10/31/24 1505 Gait/Stairs (Locomotion) Hitchcock Level (Gait) contact guard;1 person assist;verbal cues [...] Provider Type Razia Molina, PT Physical Therapist Physical Therapy Education Title: PT OT RN MILITARY Therapies (In Progress) Topic: Physical Therapy (In [...] PT Received On 10/31/24 -AB Timed Charges 04070 - Gait Training Minutes 10 -AB 43236 - PT Therapeutic Activity Minutes 13 -AB Total Minutes Timed Charges Total Minutes 23 -AB Total Minutes 23 -AB User Carmona (r) = Recorded By, (t) = Taken By, (c) = Cosigned By Initials Name Provider Type AB Razia Jurado, PT Physical Therapist Therapy Charges for Today Code Description Service Date Service Provider Modifiers Qty [id number] HC GAIT TRAINING EA 15 MIN 10/31/2024 Razia Jurado, PT GP 1 31713303066 HC PT THERAPEUTIC ACT EA 15 MIN 10/31/2024 Razia Jurado, PT GP 1 PT G-Codes Outcome Measure Options: AM-PAC 6 Clicks Basic Mobility (PT) AM-PAC 6 Clicks Score (PT): 17 AM-PAC 6 Clicks Score (OT): 17 Modified Edgerton Scale: 3 - Moderate disability. Requiring some help, but able to walk without assistance. PT Discharge Summary Anticipated Discharge Disposition (PT): senior living facility Razia Jurado PT 10/31/2024 * Therapy Treatment Note - Sissy Lopez, CCC-RN MILITARY - 10/30/2024 4:06 PM EDT Images from the original note were not included. Acute Care - Speech Language Pathology Swallow Treatment Note [place] Patient Name: Jessica Burnham : 1935 Today's [...] Procedure: ESOPHAGOGASTRODUODENOSCOPY; Surgeon: Mian Garcia MD; Location: [facility]; Service: Gastroenterology; Laterality: N/A; RN MILITARY Recommendation and Plan RN MILITARY Swallowing Diagnosis: functional oral phase, R/O pharyngeal dysphagia, suspected esophageal dysphagia (10/30/241429) RN MILITARY Diet Recommendation: soft to chew textures, chopped, thin liquids (10/30/241429) Recommended Precautions and Strategies: upright posture during/after eating, small bites of food and sips of liquid, reflux precautions (10/30/241429) RN MILITARY Rec. for Method of Medication Administration: meds whole, meds crushed, with puree, as tolerated (10/30/241429) Monitor for Signs of Aspiration: notify RN MILITARY if any concerns (10/30/241429) Recommended Diagnostics: other (see comments) (diet tolerance) (10/30/241429) Swallow Criteria for Skilled Therapeutic Interventions Met: demonstrates skilled criteria (430) Anticipated Discharge Disposition (RN MILITARY): senior living facility (10/30/241429) Rehab Potential/Prognosis, Swallowing: good, to achieve stated therapy goals (10/30/241429) Therapy Frequency (Swallow): PRN, 5 days per week (10/30/241429) Predicted Duration Therapy Intervention (Days): 1 week (10/30/241429) Oral Care Recommendations: Oral Care BID/PRN, Toothbrush (10/30/241429) Daily Summary of Progress (RN MILITARY): progress toward functional goals as expected (10/30/241429) Treatment Assessment (RN MILITARY): continued, mild, cognitive-linguistic disorder (10/30/241429) Treatment Assessment Comments (RN MILITARY): Patient tolerated trials of soft solids w/o discomfort or s/s of aspiration. EGD completed on 10/29/24 with dilation completed. Diet upgraded this date to soft chopped and thin liquids. Patient continues with mild cognitive linguistic impairment. (10/30/241429) Plan for Continued Treatment (RN MILITARY): continue treatment per plan of care (10/30/241429) SWALLOW EVALUATION (Last 72 Hours) RN MILITARY Adult Swallow Evaluation Row Name 10/30/241429 RN MILITARY Evaluation Clinical Impression RN MILITARY Swallowing Diagnosis functional oral phase;R/O pharyngeal dysphagia;suspected esophageal dysphagia - Functional Impact risk of aspiration/pneumonia;risk of malnutrition - Rehab Potential/Prognosis, Swallowing good, to achieve stated therapy goals - Swallow Criteria for Skilled Therapeutic Interventions Met demonstrates skilled criteria - RN MILITARY Treatment Clinical Impressions Treatment Assessment Comments (RN MILITARY) Patient tolerated trials of soft solids w/o discomfort or s/s of aspiration. EGD completed on 10/29/24 with dilation completed. Diet upgraded this date to soft chopped and thin liquids. Patient continues with mild cognitive linguistic impairment. - Recommendations Therapy Frequency (Swallow) PRN;5 days per week - RN MILITARY Diet Recommendation soft to chew textures;chopped;thin liquids - Recommended Diagnostics other (see comments) diet tolerance - Recommended Precautions and Strategies upright posture during/after eating;small bites of food and sips of liquid;reflux precautions - Oral Care Recommendations Oral Care BID/PRN;Toothbrush - RN MILITARY Rec. for Method of Medication Administration meds whole;meds crushed;with puree;as tolerated - Monitor for Signs of Aspiration notify RN MILITARY if any concerns - User Carmona (r) = Recorded By, (t) = Taken By, (c) = Cosigned By Initials Name Effective Dates Sissy Lopez, [facility]-RN MILITARY 05/07/24 - EDUCATION The patient has been educated in the following areas: Dysphagia (Swallowing Impairment) Oral Care/Hydration Modified Diet Instruction. RN MILITARY GOALS Row Name 07/15/25 1430 (LTG) Patient will demonstrate functional swallow for Diet Texture (Demonstrate functional swallow) soft to chew (chopped) textures -CH Liquid viscosity (Demonstrate functional swallow) thin liquids -CH Hitchcock (Demonstrate functional swallow) with minimal cues (75-90% [...] signs/symptoms of aspiration;with adequate oral prep/transit/clearance - Hitchcock (Tolerate trials) with minimal cues (75-90% accuracy) - Time Frame (Tolerate trials) 1 week -CH Progress/Outcomes (Tolerate trials) goal met;goal revised this date -CH Comment (Tolerate trials) goal met for pureed, diet upgraded to soft chopped and thin liquids. - Patient will demonstrate functional cognitive-linguistic skills for return to discharge environment Hitchcock with minimal cues - Time frame 1 week -CH Progress/Outcomes continuing progress toward goal -CH RN MILITARY Diagnostic Treatment Patient will participate in further assessment in the following areas clarification of baseline cognitive communication status - Time Frame (Diagnostic) 1 week -CH Progress/Outcomes (Additional Goal 1, RN MILITARY) continuing progress toward goal -CH Word Retrieval Skills Goal 1 (RN MILITARY) Improve Word Retrieval Skills By Goal 1 (RN MILITARY) high frequency;responsive naming task;completing a divergent task;80%;with minimal cues (75-90%) -CH Time Frame (Word Retrieval Goal 1, RN MILITARY) 1 week -CH Progress (Word Retrieval Skills Goal 1, RN MILITARY) 80%;with minimal cues (75-90%) -CH Progress/Outcomes (Word Retrieval Goal 1, RN MILITARY) continuing progress toward goal -CH Orientation Goal 1 (RN MILITARY) Improve Orientation Through Goal 1 (RN MILITARY) demonstrating orientation to day;demonstrating orientationto month;demonstrating orientation to year;demonstrating orientation to place;demonstrating orientation to disease/impairment;use environmental aids to assist with orientation;80%;with minimal cues (75-90%) -CH Time Frame (Orientation Goal 1, RN MILITARY) 1 week -CH Progress (Orientation Goal 1, RN MILITARY) 50%;with minimal cues (75-90%) -CH Progress/Outcomes (Orientation Goal 1, RN MILITARY) continuing progress toward goal -CH Comment (Orientation Goal 1, RN MILITARY) Oriented to self and grossly to place, not to time or situation -CH Memory Skills Goal 1 (RN MILITARY) Improve Memory Skills Through Goal 1 (RN MILITARY) recalling related word lists immediately;recall details of the day;90%;with minimal cues (75-90%) -CH Time Frame (Memory Skills Goal 1, RN MILITARY) 1 week -CH Progress (Memory Skills Goal 1, RN MILITARY) 40%;with minimal cues (75-90%) -CH Progress/Outcomes (Memory Skills Goal 1, RN MILITARY) continuing progress toward goal -CH User Carmona (r) = Recorded By, (t) = Taken By, (c) = Cosigned By Initials Name Provider Type Sissy Saldana MS CCC-RN MILITARY Speech and Language Pathologist Time Calculation: Time Calculation- RN MILITARY Row Name 10/30/24 1601 Time Calculation- RN MILITARY RN MILITARY Start Time 1430 - RN MILITARY Received On 10/30/24 - Untimed Charges 11645-YW Treatment/ST Modification Prosth Nov 39 -CH 70344-IJ Treatment Swallow Minutes 45 -CH Total Minutes Untimed Charges Total Minutes 84 -CH Total Minutes 84 -CH User Carmona (r) = Recorded By, (t) = Taken By, (c) = Cosigned By Initials Name Provider Type Sissy Saldana MS CCC-RN MILITARY Speech and Language Pathologist Therapy Charges for Today Code Description Service Date Service Provider Modifiers Qty 39432969855 HC ST TREATMENT SWALLOW 3 10/30/2024 Sissy Lopez MS CCC-RN MILITARY GN [id number] TREATMENT SPEECH 3 10/30/2024 Sissy Lopez MS CCC-RN MILITARY GN 1 Sissy Lopez MS CCC-RN MILITARY 10/30/2024 and Acute Care - Speech Language [...] Procedure: ESOPHAGOGASTRODUODENOSCOPY; Surgeon: Mian Garcia MD; Location: [facility]; Service: Gastroenterology; Laterality: N/A; RN MILITARY Recommendation and Plan RN MILITARY Diagnosis: mild, cognitive-linguistic disorder (10/30/241429) Monitor for Signs of Aspiration: notify RN MILITARY if any concerns (10/30/241429) Swallow Criteria for Skilled Therapeutic Interventions Met: demonstrates skilled criteria () SLC Criteria for Skilled Therapy Interventions Met: yes (10/30/241429) Anticipated Discharge Disposition (RN MILITARY): senior living facility (10/30/241429) Therapy Frequency (Swallow): PRN, 5 days per week (10/30/241429) Therapy Frequency (RN MILITARY SLC): 5 days per week (10/30/241429) Predicted Duration Therapy Intervention (Days): 1 week (10/30/241429) Oral Care Recommendations: Oral Care BID/PRN, Toothbrush (10/30/241429) Daily Summary of Progress (RN MILITARY): progress toward functional goals as expected (10/30/241429) Treatment Assessment (RN MILITARY): continued, mild, cognitive-linguistic disorder (10/30/241429) Treatment Assessment Comments (RN MILITARY): Patient tolerated trials of soft solids w/o discomfort or s/s of aspiration. EGD completed on 10/29/24 with dilation completed. Diet upgraded this date to soft chopped and thin liquids. Patient continues with mild cognitive linguistic impairment. (10/30/241429) Plan for Continued Treatment (RN MILITARY): continue treatment per plan of care (10/30/241429) RN MILITARY EVALUATION (Last 72 Hours) RN MILITARY SLC Evaluation Row Name 10/30/241429 Communication Assessment/Intervention [...] Pain Rating 0/10 - no pain - RN MILITARY Evaluation Clinical Impressions RN MILITARY Diagnosis mild;cognitive-linguistic disorder - Rehab Potential/Prognosis good -[facility] Criteria for Skilled Therapy Interventions Met yes -CH RN MILITARY Treatment Clinical Impressions Treatment Assessment (RN MILITARY) continued;mild;cognitive-linguistic disorder - Daily Summary of Progress (RN MILITARY) progress toward functional goals as expected - Plan for Continued Treatment (RN MILITARY) continue treatment per plan of care - Care Plan Review evaluation/treatment results reviewed;care plan/treatment goals reviewed - Recommendations Therapy Frequency (RN MILITARY SLC) 5 days per week -CH Predicted Duration Therapy Intervention (Days) 1 week -CH Anticipated Discharge Disposition (RN MILITARY) senior living facility - User Carmona (r) = Recorded By, (t) = Taken By, (c) = Cosigned By Initials Name Effective Dates Sissy Lopez MS [facility]-RN MILITARY 05/07/24 - EDUCATION The patient has been educated in the following areas: Cognitive Impairment Communication Impairment. RN MILITARY GOALS Row Name 10/30/24 1430 (LTG) Patient will demonstrate functional swallow for Diet Texture (Demonstrate functional swallow) soft to chew (chopped) textures - Liquid viscosity (Demonstrate functional swallow) thin liquids - Hitchcock (Demonstrate functional swallow) with minimal cues (75-90% [...] signs/symptoms of aspiration;with adequate oral prep/transit/clearance - Hitchcock (Tolerate trials) with minimal cues (75-90% accuracy) - Time Frame (Tolerate trials) 1 week -CH Progress/Outcomes (Tolerate trials) goal met;goal revised this date - Comment (Tolerate trials) goal met for pureed, diet upgraded to soft chopped and thin liquids. - Patient will demonstrate functional cognitive-linguistic skills for return to discharge environment Hitchcock with minimal cues - Time frame 1 week -CH Progress/Outcomes continuing progress toward goal -CH RN MILITARY Diagnostic Treatment Patient will participate in further assessment in the following areas clarification of baseline cognitive communication status -CH Time Frame (Diagnostic) 1 week -CH Progress/Outcomes (Additional Goal 1, RN MILITARY) continuing progress toward goal -CH Word Retrieval Skills Goal 1 (RN MILITARY) Improve Word Retrieval Skills By Goal 1 (RN MILITARY) high frequency;responsive naming task;completing a divergent task;80%;with minimal cues (75-90%) -CH Time Frame (Word Retrieval Goal 1, RN MILITARY) 1 week -CH Progress (Word Retrieval Skills Goal 1, RN MILITARY) 80%;with minimal cues (75-90%) -CH Progress/Outcomes (Word Retrieval Goal 1, RN MILITARY) continuing progress toward goal -CH Orientation Goal 1 (RN MILITARY) Improve Orientation Through Goal 1 (RN MILITARY) demonstrating orientation to day;demonstrating orientationto month;demonstrating orientation to year;demonstrating orientation to place;demonstrating orientation to disease/impairment;use environmental aids to assist with orientation;80%;with minimal cues (75-90%) -CH Time Frame (Orientation Goal 1, RN MILITARY) 1 week -CH Progress (Orientation Goal 1, RN MILITARY) 50%;with minimal cues (75-90%) -CH Progress/Outcomes (Orientation Goal 1, RN MILITARY) continuing progress toward goal -CH Comment (Orientation Goal 1, RN MILITARY) Oriented to self and grossly to place, not to time or situation - Memory Skills Goal 1 (RN MILITARY) Improve Memory Skills Through Goal 1 (RN MILITARY) recalling related word lists immediately;recall details of the day;90%;with minimal cues (75-90%) -CH Time Frame (Memory Skills Goal 1, RN MILITARY) 1 week -CH Progress (Memory Skills Goal 1, RN MILITARY) 40%;with minimal cues (75-90%) -CH Progress/Outcomes (Memory Skills Goal 1, RN MILITARY) continuing progress toward goal -CH User Carmona (r) = Recorded By, (t) = Taken By, (c) = Cosigned By Initials Name Provider Type Sissy Saldana MS [facility]-RN MILITARY Speech and Language Pathologist Time Calculation: Time Calculation- RN MILITARY Row Name 10/30/24 1601 Time Calculation- RN MILITARY RN MILITARY Start Time 1430 - RN MILITARY Received On 10/30/24 - Untimed Charges 52534-EA Treatment/ST Modification Prosth Aug Alter 39 -CH 64982-IS Treatment Swallow Minutes 45 -CH Total Minutes Untimed Charges Total Minutes 84 -CH Total Minutes 84 -CH User Carmona (r) = Recorded By, (t) = Taken By, (c) = Cosigned By Initials Name Provider Type Sissy Saldana MS CCC-RN MILITARY Speech and Language Pathologist Therapy Charges for Today Code Description Service Date Service Provider Modifiers Qty 48554181517 HC ST TREATMENT SWALLOW 3 10/30/2024 Sissy Lopez MS CCC-RN MILITARY GN [address] TREATMENT SPEECH 3 10/30/2024 Jessica MS RAVI Sheehan-RN MILITARY GN 1 Sissy Lopez MS CCC-RN MILITARY 10/30/2024 * Case Management/Social Work - Saeed Ramsay RN - 10/30/2024 2:08 PM EDT Continued Stay Note [facility] Patient Name: Jessica Burnham Today's Date: 10/30/2024 Admit Date: 10/26/2024 Plan: SNF Discharge Plan Row Name 10/30/24 1400 Plan Plan SNF Patient/Family in Agreement with Plan yes Plan Comments I spoke w/Brianna Yip @ [facility], received fax from Jean Claude on Tuesday. Her contact number is [phone], fax [phone]. She stated that she needs more information about Mr. Burnham from daughter, Saranya. I called Saranya, who lives in [place], [place], she did not know about [facility] or where [facility] was located, I did give her Brianna's information to call. Per Saranya, she prefers her dad to go to a [place] facility for STR, and would like her dad to be able to doSTR , then back to his apt w/caregivers, but then asked if [facility] would keep him? I informedthat I would leave a facility list in Mr. Burnham's room /[facility] for her to review.She plans to be here on , she is also assisting w/her mother. When I leave list, I will speak w/Mr. Burnham too. DC plan is SNF, will need transportation to SNF. Took list to Mr. Burnham, he stated that he did not want to go to [facility], or no where out of town. Speech pathologist was present in room as well, I asked him about SNF in [place], he stated, I don't want to be [...] Procedure: ESOPHAGOGASTRODUODENOSCOPY; Surgeon: Mian Garcia MD; Location: [facility]; Service: Gastroenterology; Laterality: N/A; General Information [...] Row Name 10/30/24 1130 Sit-Stand Transfer Sit-Stand Hitchcock (Transfers) contact guard;verbal cues -KR Assistive Device (Sit-Stand Transfers) walker, front-wheeled -KR Comment, (Sit-Stand Transfer) 2x from chair with FWW, 5x STS from chair unsupported. -KR Row Name 10/30/24 1130 Gait/Stairs (Locomotion) Hitchcock Level (Gait) contact guard -KR Assistive Device [...] Therapist Physical Therapy Education Title: PT OT RN MILITARY Therapies (In Progress) Topic: Physical Therapy (In [...] PT Received On 10/30/24 -KR Timed Charges 48342 - PT Therapeutic Exercise Minutes 18 -KR 28194 - PT Therapeutic Activity Minutes 5 -KR Total Minutes Timed Charges Total Minutes 23 -KR Total Minutes 23 -KR User Carmona (r) = Recorded By, (t) = Taken By, (c) = Cosigned By Initials Name Provider Type Yvonne Martin, PT Physical Therapist Therapy Charges for Today Code Description Service Date Service Provider Modifiers Qty 48498624061 HC PT THER PROC EA 15 MIN 10/30/2024 Yvonne Felder, PT GP 1 42394281405 HC PT THERAPEUTIC ACT EA 15 MIN 10/30/2024 Yvonne Felder, PT GP 1 PT G-Codes Outcome Measure Options: AM-PAC 6 Clicks Basic Mobility (PT) AM-PAC 6 Clicks Score (PT): 17 AM-PAC 6 Clicks Score (OT): 17 Modified Edgerton Scale: 3 - Moderate disability. Requiring some [...] Procedure: ESOPHAGOGASTRODUODENOSCOPY; Surgeon: Mian Garcia MD; Location: [facility]; Service: Gastroenterology; Laterality: N/A; General Information [...] Cosigned By Initials Name Provider Type MR Jamey Jaylin, OT Occupational Therapist Mobility/ADL's Row Name 10/30/24 1014 Bed Mobility Comment, (Bed Mobility) Pt received sitting EOB w/ PCT upon OT arrival. -MR Row Name 10/30/24 1014 Transfers Transfers toilet transfer;sit-stand transfer -MR Comment, (Transfers) Pt completed STS from BSC to upright at . Verbal cues for hand placement andsequencing. -MR Row Name 10/30/24 1014 Sit-Stand Transfer Sit-Stand Hitchcock (Transfers) contact guard;verbal cues -MR Assistive Device (Sit-Stand Transfers) walker, front-wheeled -MR Row Name 10/30/24 1014 Toilet Transfer Type (Toilet Transfer) stand pivot/stand step -MR Hitchcock Level (Toilet Transfer) minimum assist (75% patient effort);verbal cues;nonverbal cues(demo/gesture) -MR Assistive Device (Toilet Transfer) walker, front-wheeled;commode, bedside without drop arms -MR Row Name 10/30/24 1014 Functional Mobility Functional Mobility- Ind. Level contact guard assist;verbal cues required;nonverbal cues required (demo/gesture) -MR Functional Mobility- Device walker, front-wheeled -MR Functional Mobility-Distance (Feet) -- HH distances w/in pt's room -MR Row Name 10/30/24 101 Activities of Daily Living BADL Assessment/Intervention grooming;toileting;upper body dressing;bathing -MR Row Name 10/30/24 1014 Upper Body Dressing Assessment/Training Hitchcock Level (Upper Body Dressing) don;contact guard assist;other (see comments) adjusting hospital gown -MR Position (Upper Body Dressing) supported sitting -MR Row Name 10/30/24 1014 Grooming Assessment/Training Hitchcock Level (Grooming) wash face, hands;contact guard assist -MR Position (Grooming) sink side -MR Row Name 10/30/24 1014 Toileting Assessment/Training Hitchcock Level (Toileting) adjust/manage clothing;contact guard assist;perform perineal hygiene;set up -MR Assistive Devices (Toileting) commode, bedside without drop arms -MR Position (Toileting) unsupported sitting;supported standing -MR Row Name 10/30/24 1014 Bathing Assessment/Intervention Hitchcock Level (Bathing) perineal area;other (see comments);contact guard [...] Cosigned By Initials Name Provider Type MR Jamey Jaylin, OT Occupational Therapist Goals/Plan No documentation. Clinical [...] Therapist Occupational Therapy Education Title: PT OT RN MILITARY Therapies (In Progress) Topic: Occupational Therapy (In [...] 1020 Time Calculation- OT OT Start Time 09 -MR OT Received On 10/30/24 -MR Timed Charges 35395 - OT Therapeutic Activity Minutes 10 -MR 91991 - OT Self Care/Mgmt Minutes 16 -MR Total Minutes Timed Charges Total Minutes 26 -MR Total Minutes 26 -MR User Carmona (r) = Recorded By, (t) = Taken By, (c) = Cosigned By Initials Name Provider Type Jaylin Concepcion OT Occupational Therapist Therapy Charges for Today Code Description Service Date Service Provider Modifiers Qty 32703025277 HC OT THERAPEUTIC ACT EA 15 MIN 10/30/2024 Jaylin Concepcion OT GO 1 78795407492 HC OT SELF CARE/MGMT/TRAIN EA 15 MIN [...] Mobility Bed Mobility supine-sit;scooting/bridging (P) -ST Scooting/Bridging Hitchcock (Bed Mobility) verbal cues;standby assist (P) -ST Supine-Sit Hitchcock (Bed Mobility) verbal cues;standby assist (P) -ST [...] Row Name 10/29/24 151 Sit-Stand Transfer Sit-Stand Hitchcock (Transfers) minimum assist (75% patient effort);1 person assist;verbal cues (P) -ST Assistive Device (Sit-Stand Transfers) walker, front-wheeled (P) -ST Comment, (Sit-Stand Transfer) 1x STS from EOB, 5x STS from chair, 1x STS from commode w/ 1x assist and verbal cues to complete safely. (P) -ST Row Name 10/29/24 151 Gait/Stairs (Locomotion) Hitchcock Level (Gait) contact guard (P) -ST Assistive [...] Student PT Student Obj/Interventions Row Name 10/29/24 152 Motor Skills Therapeutic Exercise hip (P) -ST [facility] Name 10/29/24 152 Hip (Therapeutic Exercise) Hip (Therapeutic Exercise) strengthening exercise (P) 5 x STS from chair with cues for upright trunk and safe FWW use. -ST Row Name 10/29/24 152 Balance Balance Assessment sitting [...] Goals/Plan No documentation. Clinical Impression Row Name 10/29/24 152 Pain Pretreatment Pain Rating 0/10 - no pain (P) -ST Posttreatment Pain Rating 0/10 - no pain (P) -ST Row Name 10/29/24 152 Plan of Care Review [...] Met (PT) yes;skilled treatment is necessary (P) - Row Name 10/29/24 1527 Vital Signs Pre [...] Minutes)-5 -BL Row Name 10/29/24 1531 Modified Edgerton Scale Pre-Stroke Modified Edgerton Scale 6 - Unable to determine (UTD) from the medical record documentation (P) -ST Modified Edgerton Scale 3 - Moderate disability. Requiring some help, but able to walk without assistance. (P) -ST User Carmona (r) = Recorded By, (t) = Taken By, (c) = Cosigned By Initials Name Provider Type Ronnie Carter, RN Registered Nurse Edil Mukherjee, PT Student PT Student Physical Therapy Education Title: PT OT RN MILITARY Therapies (In Progress) Topic: Physical Therapy (In [...] Due Date 11/07/24 (P) -ST Timed Charges 55321 - Gait Training Minutes 13 (P) -ST 44473 - PT Therapeutic Activity Minutes 13 (P) -ST Total Minutes Timed Charges Total Minutes 26 (P) -ST Total Minutes 26 (P) -ST User Carmona (r) = Recorded By, (t) = Taken By, (c) = Cosigned By Initials Name Provider Type ST Edil Franklin, PT Student PT Student Therapy Charges for Today Code Description Service Date Service Provider Modifiers Qty [id number] HC GAIT TRAINING EA 15 MIN 10/29/2024 Edil Franklin, PT Student GP 1 [id number] HC PT THERAPEUTIC ACT EA 15 MIN 10/29/2024 Edil Franklin, PT Student GP 1 PT G-Codes Outcome Measure Options: AM-PAC 6 Clicks Daily Activity (OT), Modified Edgerton AM-PAC 6 Clicks Score (PT): (P) 17 AM-PAC 6 Clicks Score (OT): 13 Modified Edgerton Scale: (P) 3 - Moderate disability. Requiring [...] Date: 10/29/2024 Admit Date: 10/26/2024 Plan: [facility] Discharge Plan Row Name 10/29/24 1119 Plan Plan [facility] [place] Patient/Family in Agreement with Plan yes Plan Comments CM faxed a referral to [facility] SNF. CM will continue to follow. Final Discharge Disposition Code 03 - senior living facility (SNF) Row Name 10/29/24 0928 Plan Plan [place] Patient/Family in Agreement with Plan yes Plan Comments Spoke with patient at bedside. Lives alone in [place]. Has caregiver 4-5 days a week. Contact is Saranya Carter (daughter/POA) [phone]. Is independent with ADL's. No problems affording VA or medications. [facility]. Uses a straight cane. No HH. PCP is [facility]. Plan is [place] [facility].Family will transport. CM will continue to [...] Today's Date: 10/29/2024 Admit Date: 10/26/2024 Plan: [place] Discharge Needs Assessment Row Name 10/29/24 [...] adult Family Caregiver Names Saranya Carter (daughter) [phone] Able to Return to Prior Arrangements yes [...] with patient at bedside. Lives alone in [place]. Has caregiver 4-5 days a week. Contact is Saranya Carter (daughter/POA) [phone]. Is independent with ADL's. No problems affording [...] Reason for Consult discharge planning Preferred Language Tanzanian Contact Information Permission Granted to Share Info With shelter case managerfarm general manager Information Obtained for shelter case managermanager mental health Status Row Name 10/29/24 0925 Functional Status [...] per chart review he is from a skilled nursing. -AJ Existing Precautions/Restrictions fall;other (see comments) dementia -AJ Barriers to Rehab previous functional deficit;cognitive status - Row Name 10/28/24 1529 Living Environment Current Living Arrangements residential facility;other (see comments) Difficult to determine if he is in a SNF for rehab or residential. -AJ People in Home facility resident - Row Name 10/28/24 1529 Cognition Orientation Status (Cognition) oriented x 3 - Row Name 10/28/24 1529 Safety Issues/Impairments Affecting Functional Mobility Safety Issues [...] Bed Mobility Bed Mobility supine-sit -AJ Supine-Sit Hitchcock (Bed Mobility) minimum assist (75% patient effort);1 person assist;verbal cues - Bed Mobility, Safety Issues cognitive deficits limit understanding -AJ Assistive Device (Bed Mobility) head of bed elevated;bed rails -AJ Comment, (Bed Mobility) Cues for task initiation - Row Name 10/28/24 153 Transfers Transfers sit-stand transfer;toilet transfer - Row Name 10/28/24 153 Sit-Stand Transfer Sit-Stand Hitchcock (Transfers) minimum assist (75% patient effort);2 person assist;verbal cues - Assistive Device (Sit-Stand Transfers) walker, front-wheeled -AJ Comment, (Sit-Stand Transfer) minAx2 and cues for HP - Row Name 10/28/24 1533 Toilet Transfer Type (Toilet Transfer) sit-stand;stand-sit -AJ Hitchcock Level (Toilet Transfer) minimum assist (75% patient effort);2 person assist;verbal cues - Assistive Device (Toilet Transfer) commode;grab bars/safety frame;walker, front- wheeled - Comment, (Toilet Transfer) Cues for utilizing safety bars for safe lowering and rising from commode-[facility] 10/28/241532 Functional Mobility Functional Mobility- Ind. Level 2 person assist required;verbal cues required;contact guard assist - Functional Mobility- Device walker, front-wheeled - Functional Mobility-Distance (Feet) -- to and from bathroom -[facility] 10/28/241532 Activities of Daily Living BADL Assessment/Intervention upper body dressing;lower body dressing;grooming;toileting -[facility] 10/28/241532 Upper Body Dressing Assessment/Training Hitchcock Level (Upper Body Dressing) don;doff;front opening garment;moderate assist (50% patient effort) - Position (Upper Body Dressing) unsupported sitting -[facility] 10/28/241532 Lower Body Dressing Assessment/Training Hitchcock Level (Lower Body Dressing) doff;don;socks;maximum assist (25% patient effort);dependent (less than 25% patient effort) - Position (Lower Body Dressing) unsupported sitting -[facility] 10/28/241532 Grooming Assessment/Training Hitchcock Level (Grooming) wash face, hands;set up - Position (Grooming) supported sitting -[facility] 10/28/241532 Toileting Assessment/Training Hitchcock Level (Toileting) adjust/manage clothing;perform perineal hygiene;dependent (less than25% patient effort) - Assistive Devices (Toileting) commode - Position (Toileting) unsupported sitting;supported standing - User Carmona (r) = Recorded By, (t) = Taken By, (c) = Cosigned By Initials Name Provider Type Pearl Eisenberg OT Occupational Therapist Obj/Interventions [facility] Name 10/28/241537 Sensory Assessment (Somatosensory) Sensory Assessment (Somatosensory) UE sensation intact -[facility] 10/28/241537 Vision Assessment/Intervention Visual Impairment/Limitations unable/difficult to assess -[facility] 10/28/241537 Range of Motion Comprehensive General Range of Motion bilateral upper extremity ROM WFL -[facility] 10/28/24 1538 Strength Comprehensive (MMT) General Manual [...] OT) sit to supine;supine to sit - Hitchcock Level/Cues Needed (Bed Mobility Goal 1, OT) standby assist - Time Frame (Bed Mobility Goal 1, OT) terminal worker goal (LTG);10 days - Progress/Outcomes (Bed Mobility Goal 1, OT) new goal - Row Name 10/28/24 1543 Transfer Goal 1 (OT) Activity/Assistive Device (Transfer Goal 1, OT) rig-ru-kczee/czwnq-ey-pjh;yrk-bn-xjrhf/tqbyi-nn-lxj;toilet - Hitchcock Level/Cues Needed (Transfer Goal 1, OT) standby assist - Time Frame (Transfer Goal 1, OT) terminal worker goal (LTG);10 days - Progress/Outcome (Transfer Goal 1, OT) new goal - Row Name 10/28/24 154 Toileting Goal 1 (OT) Activity/Device (Toileting Goal 1, OT) adjust/manage clothing;perform perineal hygiene - Hitchcock Level/Cues Needed (Toileting Goal 1, OT) maximum [...] Minutes)-5 -BL Row Name 10/28/24 1544 Modified Edgerton Scale Pre-Stroke Modified Terry Scale 6 - Unable to determine (UTD) from the medical record documentation - Modified Edgerton Scale 3 - Moderate disability. Requiring some help, but able to walk without assistance. - Row Name 10/28/24 1544 10/28/24 1536 Functional Assessment Outcome Measure Options AM-PAC 6 Clicks Daily Activity (OT);Modified Edgerton -[facility]-PAC 6 Clicks Basic Mobility (PT) -MAI User Carmona (r) = Recorded By, (t) = Taken By, (c) = Cosigned By Initials Name Provider Type Jennifer Olvera, PT Physical Therapist Ronnie Salas, RN Registered Nurse Pearl Eisenberg, OT Occupational Therapist Occupational Therapy Education Title: PT OT RN MILITARY Therapies (In Progress) Topic: Occupational Therapy (In [...] Carmona Initials Effective Dates Name Provider Type formerly [facility] 12/12/23 - Pearl Holt OT Occupational Therapist [...] - Untimed Charges OT Eval/Re-eval Minutes 47 -AJ Total Minutes Untimed Charges Total Minutes 47 -AJ Total Minutes 47 -AJ User Carmona (r) = Recorded By, (t) = Taken By, (c) = Cosigned By Initials Name Provider Type Pearl Holt OT Occupational Therapist Therapy Charges for Today Code Description Service Date Service Provider Modifiers Qty [id number] OT EVAL LOW COMPLEXITY 4 10/28/2024 Pearl [...] Bed Mobility Bed Mobility supine-sit -MAI Supine-Sit Hitchcock (Bed Mobility) verbal cues;nonverbal cues (demo/gesture);minimum assist (75% patient effort) -MAI Assistive Device (Bed Mobility) head of bed elevated;bed rails -MAI Comment, (Bed Mobility) Pt utilized bed rail -MAI Row Name 10/28/24 1528 Transfers Comment, (Transfers) Cues for sequencing and hand placement with FWW. - Row Name 10/28/24 1528 Sit-Stand Transfer Sit-Stand Hitchcock (Transfers) minimum assist (75% patient effort) -MAI Assistive Device (Sit-Stand Transfers) walker, front-wheeled -MAI Comment, (Sit-Stand Transfer) VCs -MAI Row Name 10/28/24 1528 Gait/Stairs (Locomotion) Hitchcock Level (Gait) contact guard -MAI Assistive Device [...] Initials Name Provider Type MAI Jennifer Hendrickson, ELMA Physical Therapist Obj/Interventions Row Name 10/28/24 1531 [...] Olvera PT Physical Therapist Goals/Plan Row Name 10/28/24 153 Bed Mobility Goal 1 (PT) Activity/Assistive Device (Bed Mobility Goal 1, PT) sit to supine/supine to sit -MAI Hitchcock Level/Cues Needed (Bed Mobility Goal 1, PT) independent -MAI Time Frame (Bed Mobility Goal 1, PT) residential goal (LTG);10 days -MAI Row Name 10/28/24 153 Transfer Goal 1 (PT) Activity/Assistive Device (Transfer Goal 1, PT) egn-gk-eyhxw/fkcue-th-scr -MAI Hitchcock Level/Cues Needed (Transfer Goal 1, PT) modified independence -MAI Time Frame (Transfer Goal 1, PT) short term goal (STG);5 days -MAI Row Name 10/28/24 153 Gait Training Goal 1 (PT) Activity/Assistive Device (Gait Training Goal 1, PT) gait (walking locomotion);assistive device use-MAI Hitchcock Level (Gait Training Goal 1, PT) modified independence -MAI Distance (Gait Training Goal 1, PT) 100 -MAI Time Frame (Gait Training Goal 1, PT) residential goal (LTG);10 days -MAI Row Name 10/28/24 [...] 10/28/24 1536 Functional Assessment Outcome Measure Options -[facility] 6 Clicks Basic Mobility (PT) - User Carmona (r) = Recorded By, (t) = Taken By, (c) = Cosigned By Initials Name Provider Type Jennifer Olvera, PT Physical Therapist Ronnie Salas, RN Registered Nurse Physical Therapy Education Title: PT OT RN MILITARY Therapies (In Progress) Topic: Physical Therapy (In [...] Description Service Date Service Provider Modifiers Qty [id number] HC-PT EVAL MOD COMPLEXITY 5 10/28/2024 Jennifer Hendrickson, PT 1 PT G-Codes Outcome Measure Options: AM-PAC 6 Clicks Basic Mobility (PT) AM-PAC 6 Clicks Score (PT): 18 PT Discharge Summary Anticipated Discharge Disposition (PT): senior living facility Jennifer Hendrickson PT 10/28/2024 * Therapy Evaluation - Sissy Lopez MS [facility]-RN MILITARY - 10/27/2024 2:46 PM EDT Images from the original note were not included. Acute Care - Speech Language Pathology Swallow Initial Evaluation [facility] Clinical Swallow Evaluation Cognitive-Communication Evaluation Patient Name: Jessica Burnham : 1935 Today's Date: 10/27/2024 Admit Date: 10/26/2024 Visit Dx: No diagnosis found. Patient Active Problem List Diagnosis Stroke-like symptoms No past medical history on file. No past surgical history on file. RN MILITARY Recommendation and Plan RN MILITARY Swallowing Diagnosis: functional oral phase, R/O pharyngeal dysphagia, suspected esophageal dysphagia (10/27/241299) RN MILITARY Diet Recommendation: puree, thin liquids, other (see comments) (pureed for comfort as pt c/o solids sticking in his esophagus) (10/27/241299) Recommended Precautions and Strategies: upright posture during/after eating, small bites of food and sips of liquid, reflux precautions (10/27/241299) RN MILITARY Rec. for Method of Medication Administration: meds whole, meds crushed, with puree, as tolerated (10/27/241299) Monitor for Signs of Aspiration: notify RN MILITARY if any concerns (10/27/241299) Recommended Diagnostics: other (see comments) (diet tolerance, MBS if any concerns after GI sees) (10/27/241299) Swallow Criteria for Skilled Therapeutic Interventions Met: demonstrates skilled criteria () Anticipated Discharge Disposition (RN MILITARY): senior living facility (10/27/241299) Rehab Potential/Prognosis, Swallowing: [...] indicated (10/27/241299) SWALLOW EVALUATION (Last 72 Hours) RN MILITARY Adult Swallow Evaluation Row Name 10/27/241299 General [...] aspiration;Risks of aspiration;Oral care recommendationsand rationale - RN MILITARY Evaluation Clinical Impression RN MILITARY Swallowing Diagnosis functional oral phase;R/O pharyngeal dysphagia;suspected esophageal dysphagia - Functional Impact risk of aspiration/pneumonia;risk of malnutrition - Rehab Potential/Prognosis, Swallowing good, to achieve stated therapy goals - Swallow Criteria for Skilled Therapeutic Interventions Met demonstrates skilled criteria - Recommendations Therapy Frequency (Swallow) PRN;5 days per week - RN MILITARY Diet Recommendation puree;thin liquids;other (see comments) pureed for comfort as pt c/o solidssticking in his esophagus - Recommended Diagnostics other (see comments) diet tolerance, MBS if any concerns after GI sees - Recommended Precautions and Strategies upright posture during/after eating;small bites of food and sips of liquid;reflux precautions - Oral Care Recommendations Oral Care BID/PRN;Toothbrush - RN MILITARY Rec. for Method of Medication Administration meds whole;meds crushed;with puree;as tolerated - Monitor for Signs of Aspiration notify RN MILITARY if any concerns - Demonstrates Need for Referral to Another Service gastroenterology;dedicated esophageal assessment - Swallowing Considerations per Physician Discretion medical management of suspected esophageal dysphagia, as indicated - User Carmona (r) = Recorded By, (t) = Taken By, (c) = Cosigned By Initials Name Effective Dates Sissy Lopez, [facility]-RN MILITARY 05/07/24 - EDUCATION The patient has been educated in the following areas: Dysphagia (Swallowing Impairment) Oral Care/Hydration Modified Diet Instruction. RN MILITARY GOALS Row Name 10/27/24 1300 (LTG) Patient will demonstrate functional swallow for Diet Texture (Demonstrate functional swallow) mechanical ground textures - Liquid viscosity (Demonstrate functional swallow) thin liquids - Hitchcock (Demonstrate functional swallow) with minimal cues (75-90% accuracy) - Time Frame (Demonstrate functional swallow) 1 week - (STG) Patient will tolerate trials of Consistencies Trialed (Tolerate trials) pureed textures;thin liquids - Desired Outcome (Tolerate trials) without signs/symptoms of aspiration;with adequate oral prep/transit/clearance - Hitchcock (Tolerate trials) with minimal cues (75-90% accuracy) - Time Frame (Tolerate trials) 1 week - Patient will demonstrate functional cognitive-linguistic skills for return to discharge environment Hitchcock with minimal cues -CH Time frame 1 week -CH RN MILITARY Diagnostic Treatment Patient will participate in further assessment in the following areas clarification of baseline cognitive communication status - Time Frame (Diagnostic) 1 week -CH Word Retrieval Skills Goal 1 (RN MILITARY) Improve Word Retrieval Skills By Goal 1 (RN MILITARY) high frequency;responsive naming task;completing a divergent task;80%;with minimal cues (75-90%) - Time Frame (Word Retrieval Goal 1, RN MILITARY) 1 week -CH Orientation Goal 1 (RN MILITARY) Improve Orientation Through Goal 1 (RN MILITARY) demonstrating orientation to day;demonstrating orientationto month;demonstrating orientation to year;demonstrating orientation to place;demonstrating orientation to disease/impairment;use environmental aids to assist with orientation;80%;with minimal cues (75-90%) - Time Frame (Orientation Goal 1, RN MILITARY) 1 week -CH Memory Skills Goal 1 (RN MILITARY) Improve Memory Skills Through Goal 1 (RN MILITARY) recalling related word lists immediately;recall details of the day;90%;with minimal cues (75-90%) - Time Frame (Memory Skills Goal 1, RN MILITARY) 1 week - User Carmona (r) = Recorded By, (t) = Taken By, (c) = Cosigned By Initials Name Provider Type Sissy Saldana MS CCC-RN MILITARY Speech and Language Pathologist Time Calculation: Time Calculation- RN MILITARY Row Name 10/27/24 1439 Time Calculation- RN MILITARY RN MILITARY Start Time 1300 -CH RN MILITARY Received On 10/27/24 - Untimed Charges RN MILITARY Eval/Re-eval ST Eval Speech and Production w/ Language - 01232;ST Eval Oral Pharyng Swallow - 97422 -CH 06307-JC Eval Speech and Production w/ Language Minutes 40 -CH 76492-EW Eval Oral Pharyng Swallow Minutes 42 -CH Total Minutes Untimed Charges Total Minutes 82 -CH Total Minutes 82 -CH User Carmona (r) = Recorded By, (t) = Taken By, (c) = Cosigned By Initials Name Provider Type Sissy Saldana MS CCC-RN MILITARY Speech and Language Pathologist Therapy Charges for Today Code Description Service Date Service Provider Modifiers Qty [id number] ST EVAL ORAL PHARYNG SWALLOW 3 10/27/2024 Sissy Lopez, MS CCC-RN MILITARY GN [id number] EVAL SPEECH AND PROD W LANG 3 10/27/2024 LopezSissy boyer, MS CCC-RN MILITARY GN 1 Sissy Jessica, MS CCC-RN MILITARY 10/27/2024 and Acute Care - Speech Language Pathology Initial Evaluation [place] Patient Name: Jessica Burnham : 1935 Today's Date: 10/27/2024 Admit Date: 10/26/2024 Visit Dx: No diagnosis found. Patient Active Problem List Diagnosis Stroke-like symptoms No past medical history on file. No past surgical history on file. RN MILITARY Recommendation and Plan RN MILITARY Diagnosis: mild, cognitive-linguistic disorder (10/27/241299) Monitor for Signs of Aspiration: notify RN MILITARY if any concerns (10/27/241299) Swallow Criteria for Skilled Therapeutic Interventions Met: demonstrates skilled criteria () SLC Criteria for Skilled Therapy Interventions Met: yes (10/27/241299) Anticipated Discharge Disposition (RN MILITARY): senior living facility (10/27/241299) Demonstrates Need for Referral to Another Service: gastroenterology, dedicated esophageal assessment (10/27/241299) Therapy Frequency (Swallow): PRN, 5 days per week (10/27/24 1300) Therapy Frequency (RN MILITARY SLC): 5 days per week (10/27/241299) Predicted Duration Therapy Intervention (Days): 1 week (10/27/241299) Oral Care Recommendations: Oral Care BID/PRN, Toothbrush (10/27/241299) RN MILITARY EVALUATION (Last 72 Hours) RN MILITARY SLC Evaluation Row Name 10/27/241299 Communication Assessment/Intervention [...] Verbal Expression Assessment/Intervention Verbal Expression mild impairment - Automatic Speech (Communication) response to greeting;counting 1-20;days of week;WFL - Repetition sentences;WFL - Phrase Completion automatic/predictable;WFL - Responsive Naming simple;mild impairment -CH Confrontational Naming high frequency;WFL - Spontaneous/Functional Words [...] Resonance (Voice) WNL - Cognitive Assessment Intervention- RN MILITARY Cognitive Function (Cognition) mild impairment -CH Orientation Status (Cognition) awareness of basic personal information;person;WFL;place;time;situation;mild impairment -CH Memory (Cognitive) simple;immediate;long-term;WFL;short-term;delayed;mild impairment -CH Attention (Cognitive) selective;sustained;WFL;attention to detail;mild impairment -CH Thought Organization (Cognitive) concrete divergent;abstract divergent;concrete convergent;abstractconvergent;verbal sequencing;mild impairment -CH Reasoning (Cognitive) simple;deductive;WFL - RN MILITARY Evaluation Clinical Impressions RN MILITARY Diagnosis mild;cognitive-linguistic disorder - Rehab Potential/Prognosis good - SLC Criteria for Skilled Therapy Interventions Met yes - Recommendations Therapy Frequency (RN MILITARY SLC) 5 days per week - Predicted Duration Therapy Intervention (Days) 1 week - Anticipated Discharge Disposition (RN MILITARY) senior living facility - User Carmona (r) = Recorded By, (t) = Taken By, (c) = Cosigned By Initials Name Effective Dates Sissy Saldana MS CCC-RN MILITARY 05/07/24 - EDUCATION The patient has been educated in the following areas: Cognitive Impairment Communication Impairment. RN MILITARY GOALS Row Name 10/27/24 1300 (LTG) Patient will demonstrate functional swallow for Diet Texture (Demonstrate functional swallow) mechanical ground textures -CH Liquid viscosity (Demonstrate functional swallow) thin liquids -CH Hitchcock (Demonstrate functional swallow) with minimal cues (75-90% accuracy) -CH Time Frame (Demonstrate functional swallow) 1 week -CH (STG) Patient will tolerate trials of Consistencies Trialed (Tolerate trials) pureed textures;thin liquids -CH Desired Outcome (Tolerate trials) without signs/symptoms of aspiration;with adequate oral prep/transit/clearance -CH Hitchcock (Tolerate trials) with minimal cues (75-90% accuracy) -CH Time Frame (Tolerate trials) 1 week -CH Patient will demonstrate functional cognitive-linguistic skills for return to discharge environment Hitchcock with minimal cues -CH Time frame 1 week -CH RN MILITARY Diagnostic Treatment Patient will participate in further assessment in the following areas clarification of baseline cognitive communication status -CH Time Frame (Diagnostic) 1 week -CH Word Retrieval Skills Goal 1 (RN MILITARY) Improve Word Retrieval Skills By Goal 1 (RN MILITARY) high frequency;responsive naming task;completing a divergent task;80%;with minimal cues (75-90%) - Time Frame (Word Retrieval Goal 1, RN MILITARY) 1 week -CH Orientation Goal 1 (RN MILITARY) Improve Orientation Through Goal 1 (RN MILITARY) demonstrating orientation to day;demonstrating orientationto month;demonstrating orientation to year;demonstrating orientation to place;demonstrating orientation to disease/impairment;use environmental aids to assist with orientation;80%;with minimal cues (75-90%) - Time Frame (Orientation Goal 1, RN MILITARY) 1 week -CH Memory Skills Goal 1 (RN MILITARY) Improve Memory Skills Through Goal 1 (RN MILITARY) recalling related word lists immediately;recall details of the day;90%;with minimal cues (75-90%) - Time Frame (Memory Skills Goal 1, RN MILITARY) 1 week - User Carmona (r) = Recorded By, (t) = Taken By, (c) = Cosigned By Initials Name Provider Type Sissy Saldana MS CCC-RN MILITARY Speech and Language Pathologist Time Calculation: Time Calculation- RN MILITARY Row Name 10/27/24 1439 Time Calculation- RN MILITARY RN MILITARY Start Time 1300 -CH RN MILITARY Received On 10/27/24 -CH Untimed Charges RN MILITARY Eval/Re-eval ST Eval Speech and Production w/ Language - 20463;ST Eval Oral Pharyng Swallow - 25727 -CH 19784-GV Eval Speech and Production w/ Language Minutes 40 -CH 60845-XA Eval Oral Pharyng Swallow Minutes 42 -CH Total Minutes Untimed Charges Total Minutes 82 -CH Total Minutes 82 -CH User Carmona (r) = Recorded By, (t) = Taken By, (c) = Cosigned By Initials Name Provider Type Sissy Lopez MS CCC-RN MILITARY Speech and Language Pathologist Therapy Charges for Today Code Description Service Date Service Provider Modifiers Qty [id number] HC ST EVAL ORAL PHARYNG SWALLOW 3 10/27/2024 Sissy Lopez MS CCC-RN MILITARY GN [id number] EVAL SPEECH AND PROD W LANG 3 10/27/2024 Sissy Lopez MS CCC-RN MILITARY GN 1 Sissy Lopez MS CCC-BARBER 10/27/2024 documented in this encounter Plan of Treatment Upcoming Encounters Date Type Department Care Team (Late st Contact Info) Description 12/26/2024 11:30 AM EDT Office Visit [facility] [address] [phone] Clark Lopez MD [address] [facility] [address] [place] [address] documented as of this encounter Procedures Procedure Name Priority Date/Time Associated Diagnosis Comments URINALYSIS, MICROSCOPIC ONLY Routine 10:12 AM EDT URINALYSIS W/ CULTURE IF INDICATED Routine 10/30/2024 10:12 AM EDT TN ESOPHAGOGASTRODUODENOSCOP Y TRANSORAL DIAGNOSTIC 10/29/2024 9:30 AM [...] Seen, 0-2 /HPF 10/30/2024 10:31 AM EDT [facility] WBC, UA 0-2 None Seen, 0-2 /HPF 10/30/2024 10:31 AM EDT [facility] Comment:Urine culture not in dicated. Bacteria, UA None Seen None Seen /HPF 10/30/2024 10:31 AM EDT [facility] Squamous Epithelial Cells, UA 0-2 None Seen, 0-2 /HPF 10/30/2024 10:31 AM EDT [facility] Hyaline Casts, UA None Seen None Seen /LPF [facility] Methodology Automated Microscopy 10/30/2024 10:31 AM EDT [facility] Urine Urine specimen obtained by clean catch procedure / Unknown Collection / Unknown 10/30/2024 10:12 AM EDT 10/30/2024 10:12 AM EDT Che Daphne Kiser SOFTWARE TESTER URINE ORDERABLES F inal Result [facility]
[address] [place] [address], * (ABNORMAL) Urinalysis With Culture If Indicated - Urine, Clean Catch (10/30/2024 10:12 AM EDT) Color, UA Yellow Yellow, Straw 10/30/2024 10:31 AM [facility] Appearance, UA Clear Clear 10/30/2024 10:[facility] pH, UA 7.0 5.0 - 8.0 10/30/2024 10:31 AM [facility] Specific [place], UA 1.011 1.005 - 1.030 10/30/2024 10:31 AM [facility] Glucose, UA Negative Negative 10/30/2024 10:31 AM [facility] Ketones, UA Negative Negative 10/30/2024 10:31 AM EDT [facility] Bilirubin, UA Negative Negative 10/30/2024 10:31 AM EDT [facility] Blood, UA Negative Negative 10/30/2024 10:31 AM EDT [facility] Protein, UA 30 mg/dL (1+)(A) Negative 10/30/2024 10:31 AM [facility] Leuk Esterase, UA Moderate (2+)(A) Negative 10/30/2024 10:[facility] Nitrite, UA Negative Negative 10/30/2024 10:31 AM EDT [facility] Urobilinogen, UA 1.0 E.U./dL 0.2 - 1.0 E.U./dL 10/30/2024 10:31 AM EDT [facility] Urine Urine specimen obtained by clean catch procedure / Unknown Collection / Unknown 10/30/2024 10:12 AM EDT 10/30/2024 10:12 AM EDT Narrative [facility] - 10/30/2024 10:31 AM EDT In absence of clinical symptoms, the presence of pyuria, bacteria, and/or nitrites on the urinalysis result does not correlate with infection. Che Kiser SOFTWARE TESTER URINE ORDERABLES F inal Result [facility]
[address] [place] [address], * Upper GI Endoscopy (10/29/2024 9:19 AM [...] COLOR FLOW (10/28/2024 9:35 AM EDT) Pathologist [facility] EF(MOD-bp) 37.8 % LVIDd 3.8 cm LVIDs [...] Basic Metabolic Panel (10/28/2024 8:42 AM EDT) Pathologist [facility] Glucose 85 65 - 99 mg/dL 10/28/2024 9:56 AM EDT [facility] BUN 21.0 8.0 - 23.0 mg/dL 10/28/2024 9:56 AM T [facility] Creatinine 1.10 0.76 - 1.27 mg/dL 10/28/2024 9:56 AM EDT [facility] Sodium 140 136 - 145 mmol/L 10/28/2024 9:56 AM T [facility] Potassium 4.0 3.5 - 5.2 mmol/L 10/28/2024 9:56 AM EDT [facility] Chloride 104 98 - 107 mmol/L 10/28/2024 9:56 AM T [facility] CO2 24.0 22.0 - 29.0 mmol/L 10/28/2024 9:56 AM T [facility] Calcium 9.2 8.6 - 10.5 mg/dL 10/28/2024 9:56 AM [facility] BUN/Creatinine Ratio 19.1 7.0 - 25.0 10/28/2024 9:56 AM T [facility] Anion Gap 12.0 5.0 - 15.0 mmol/L 10/28/2024 9:56 AM [facility] eGFR 64.2 >60.0 mL/min/1.7 3 10/28/2024 9:56 AM [facility] Blood Venipuncture / Unknown 10/28/2024 8:42 AM EDT 10/28/2024 9:09 AM EDT [facility] - 10/28/2024 9:56 AM EDT GFR [...] MD LAB BLOOD ORDERABLES Final Res ult [facility]
[address] [place] [address], * CBC (No Diff) (10/28/2024 8:42 AM EDT) WBC 4.81 3.40 - 10.80 10*3/mm3 10/28/2024 9:16 AM EDT [facility] RBC 5.42 4.14 - 5.80 10*6/mm3 10/28/2024 9:16 AM EDT [facility] Hemoglobin 14.9 13.0 - 17.7 g/dL 10/28/2024 9:16 AM EDT [facility] Hematocrit 43.1 37.5 - 51.0 % 10/28/2024 9:16 AM EDT [facility] MCV 79.5 79.0 - 97.0 fL 10/28/2024 9:16 AM EDT [facility] MCH 27.5 26.6 - 33.0 pg 10/28/2024 9:16 AM EDT [facility] MCHC 34.6 31.5 - 35.7 g/dL 10/28/2024 9:16 AM EDT [facility] RDW 15.1 12.3 - 15.4 % 10/28/2024 9:16 AM EDT [facility] RDW-SD 43.6 37.0 - 54.0 fl 10/28/2024 9:16 AM EDT [facility] MPV 10.9 6.0 - 12.0 fL 10/28/2024 9:16 AM EDT [facility] Platelets 168 140 - 450 10*3/mm3 10/28/2024 9:16 AM EDT [facility] Blood Venipuncture / Unknown 10/28/2024 8:42 AM EDT 10/28/2024 9:09 AM EDT Saeed Monique MD LAB BLOOD ORDERABLES Final Res ult [facility]
[address] [place] [address], * ECG 12 Lead QT Measurement (10/28/2024 [...] MD Gal Weiner PA-C ECG ORDERABLES Emma scott Result ECG * (ABNORMAL) Urinalysis, Microscopic Only - Urine, Clean Catch (10/28/2024 12:09 AM EDT) RBC, UA 0-2 None Seen, 0-2 /HPF 10/28/2024 2:13 AM EDT [facility] WBC, UA 0-2 None Seen, 0-2 /HPF 10/28/2024 2:13 AM EDT [facility] Comment:Urine culture not in dicated. Bacteria, UA 1+(A) None Seen /HPF 10/28/2024 2:13 AM EDT [facility] Squamous Epithelial Cells, UA 0-2 None Seen, 0-2 /HPF 10/28/2024 2:13 AM EDT [facility] Hyaline Casts, UA None Seen None Seen /LPF 10/28/2024 2:13 AM EDT [facility] Methodology Manual Light Microscopy 10/28/2024 2:13 AM EDT [facility] Urine Urine specimen obtained by clean catch procedure / Unknown Collection / Unknown 10/28/2024 12:09 AM EDT 10/28/2024 1:00 AM EDT Gal Weiner PA-C URINE ORDERABLES Fin al Result [facility]
[address] [place] [address], * (ABNORMAL) Urinalysis With Culture If Indicated - Urine, Clean Catch (10/28/2024 12:09 AM EDT) Color, UA Yellow Yellow, Straw 10/28/2024 1:18 AM EDT [facility] Appearance, UA Clear Clear 10/28/2024 1:18 AM EDT [facility] pH, UA 8.0 5.0 - 8.0 10/28/2024 1:18 AM EDT [facility] Specific [place], UA 1.013 1.005 - 1.030 10/28/2024 1:18 AM EDT [facility] Glucose, UA Negative Negative 10/28/2024 1:18 AM EDT [facility] Ketones, UA Negative Negative 10/28/2024 1:18 AM EDT [facility] Bilirubin, UA Negative Negative 10/28/2024 1:18 AM EDT [facility] Blood, UA Negative Negative 10/28/2024 1:18 AM EDT [facility] Protein, UA 30 mg/dL (1+)(A) Negative 10/28/2024 1:18 AM EDT [facility] Leuk Esterase, UA Trace(A) Negative 10/28/2024 1:18 AM EDT [facility] Nitrite, UA Negative Negative 10/28/2024 1:18 AM EDT [facility] Urobilinogen, UA 1.0 E.U./dL 0.2 - 1.0 E.U./dL 10/28/2024 1:18 AM EDT [facility] Urine Urine specimen obtained by clean catch procedure / Unknown Collection / Unknown 10/28/2024 12:09 AM EDT 10/28/2024 1:00 AM EDT Narrative [facility] - 10/28/2024 1:18 AM EDT In absence of clinical symptoms, the presence of pyuria, bacteria, and/or nitrites on the urinalysis result does not correlate with infection. us Gal Weiner PA-C URINE ORDERABLES Fin al Result Performing Organization Address City/[facility]/ZIP Co de Phone Number [facility]
[address] [place] [address], * Magnesium (10/27/2024 11:54 PM EDT) Magnesium 2.2 1.6 - 2.4 mg/dL 10/28/2024 12:35 AM EDT [facility] Blood Venipuncture / Unknown 10/27/2024 11:54 PM EDT 10/28/2024 12:04 AM EDT Gal Weiner PA-C LAB BLOOD ORDERABLES Final Result [facility]
[address] [place] [address], * (ABNORMAL) CBC Auto Differential (10/27/2024 11:54 PM EDT) WBC 5.07 3.40 - 10.80 10*3/mm3 10/28/2024 12:10 AM EDT [facility] RBC 5.20 4.14 - 5.80 10*6/mm3 10/28/2024 12:10 AM EDT [facility] Hemoglobin 14.6 13.0 - 17.7 g/dL 10/28/2024 12:10 AM EDT [facility] Hematocrit 41.5 37.5 - 51.0 % 10/28/2024 12:10 AM EDT [facility] MCV 79.8 79.0 - 97.0 fL 10/28/2024 12:10 AM EDT [facility] MCH 28.1 26.6 - 33.0 pg 10/28/2024 12:10 AM EDT [facility] MCHC 35.2 31.5 - 35.7 g/dL 10/28/2024 12:10 AM EDT [facility] RDW 15.6(H) 12.3 - 15.4 % 10/28/2024 12:10 AM EDT [facility] RDW-SD 44.8 37.0 - 54.0 fl 10/28/2024 12:10 AM EDT [facility] MPV 10.3 6.0 - 12.0 fL 10/28/2024 12:10 AM EDT [facility] Platelets 161 140 - 450 10*3/mm3 10/28/2024 12:10 AM EDT [facility] Neutrophil % 33.3(L) 42.7 - 76.0 % 10/28/2024 12:10 AM EDT [facility] Lymphocyte % 43.6 19.6 - 45.3 % 10/28/2024 12:10 AM EDT [facility] Monocyte % 17.4(H) 5.0 - 12.0 % 10/28/2024 12:10 AM EDT [facility] Eosinophil % 4.3 0.3 - 6.2 % 10/28/2024 12:10 AM EDT [facility] Basophil % 1.0 0.0 - 1.5 % 10/28/2024 12:10 AM EDT [facility] Immature Grans % 0.4 0.0 - 0.5 % 10/28/2024 12:10 AM EDT [facility] Neutrophils, Absolute 1.69(L) 1.70 - 7.00 10*3/mm3 10/28/2024 12:10 AM EDT [facility] Lymphocytes, Absolute 2.21 0.70 - 3.10 10*3/mm3 10/28/2024 12:10 AM EDT [facility] Monocytes, Absolute 0.88 0.10 - 0.90 10*3/mm3 10/28/2024 12:10 AM EDT [facility] Eosinophils, Absolute 0.22 0.00 - 0.40 10*3/mm3 10/28/2024 12:10 AM EDT [facility] Basophils, Absolute 0.05 0.00 - 0.20 10*3/mm3 10/28/2024 12:10 AM EDT [facility] Immature Grans, Absolute 0.02 0.00 - 0.05 10*3/mm3 10/28/2024 12:10 AM EDT [facility] nRBC 0.0 0.0 - 0.2 /100 WBC 10/28/2024 12:10 AM EDT [facility] Blood Venipuncture / Unknown 10/27/2024 11:54 PM EDT 10/28/2024 12:08 AM EDT us Gal Weiner PA-C LAB BLOOD ORDERABLES Final Result [facility]
[address] [place] [address], * Lactic Acid, Plasma (10/27/2024 11:54 PM EDT) Pathologist [facility] Lactate 1.3 0.5 - 2.0 mmol/L 10/28/2024 12:32 AM EDT [facility] Comment:Falsely depressed re sults may occur on samples drawn from patients receiving N-Acetylcysteine (NAC) or Metamizole. Blood Venipuncture / Unknown 10/27/2024 11:54 PM EDT 10/28/2024 12:04 AM EDT Gal Weiner PA-C LAB BLOOD ORDERABLES Final Result [facility]
[address] [place] [address], * (ABNORMAL) Comprehensive Metabolic Panel (10/27/2024 11:54 PM EDT) Pathologist [facility] Glucose 80 65 - 99 mg/dL 10/28/2024 12:35 AM EDT [facility] BUN 21.7 8.0 - 23.0 mg/dL 10/28/2024 12:35 AM EDT [facility] Creatinine 1.08 0.76 - 1.27 mg/dL 10/28/2024 12:35 AM EDT [facility] Sodium 137 136 - 145 mmol/L 10/28/2024 12:35 AM EDT [facility] Potassium 4.1 3.5 - 5.2 mmol/L 10/28/2024 12:35 AM EDT [facility] Chloride 103 98 - 107 mmol/L 10/28/2024 12:35 AM EDT [facility] CO2 19.8(L) 22.0 - 29.0 mmol/L 10/28/2024 12:35 AM EDT [facility] Calcium 9.4 8.6 - 10.5 mg/dL 10/28/2024 12:35 AM EDT [facility] Total Protein 7.5 6.0 - 8.5 g/dL 10/28/2024 12:35 AM [facility] Albumin 4.3 3.5 - 5.2 g/dL 10/28/2024 12:35 AM [facility] ALT (SGPT) 23 1 - 41 U/L 10/28/2024 12:35 AM [facility] AST (SGOT) 29 1 - 40 U/L 10/28/2024 12:35 AM [facility] Alkaline Phosphatase 71 39 - 117 U/L 10/28/2024 12:35 AM [facility] Total Bilirubin 0.4 0.0 - 1.2 mg/dL 10/28/2024 12:35 AM [facility] Globulin 3.2 gm/dL 10/28/2024 12:35 AM [facility] Comment:Calculated Result A/G Ratio 1.3 g/dL 10/28/2024 12:35 AM [facility] BUN/Creatinine Ratio 20.1 7.0 - 25.0 10/28/2024 12:35 AM [facility] Anion Gap 14.2 5.0 - 15.0 mmol/L 10/28/2024 12:35 AM [facility] eGFR 65.6 >60.0 mL/min/1.7 3 10/28/2024 12:35 AM [facility] Blood Venipuncture / Unknown 10/27/2024 11:54 PM EDT 10/28/2024 12:04 AM [facility] - 10/28/2024 12:35 AM EDT [...] does not include race as a factor Gla Weiner PA-C LAB BLOOD ORDERABLES Final Result [facility]
[address] [place] [address], * MRI Brain Without Contrast (10/27/2024 7:22 PM EDT) Anatomical Region Laterality Modality Head, Neck N/A Magnetic Resonan ce 10/27/2024 10:1 5 PM EDT Impressions 10/27/2024 10:17 PM EDT Impression: Advanced chronic and age-related changes are noted as above. There is otherwise no evidence of acute infarct, hemorrhage, mass or mass effect. Electronically Signed: Saulo Romo MD 10/27/2024 10:17 PM EDT Workstation ID: [id number] Narrative 10/27/2024 10:17 PM EDT MRI BRAIN [...] mass or mass effect. Electronically Signed: Saulo Room MD 10/27/2024 10:17 PM EDT Workstation ID: [id number] Lamont Hernandez PA-C IMG MRI ORDERABLES Final Res ult * POC Glucose Once (10/27/2024 5:38 PM EDT) Glucose 117 70 - 130 mg/dL 10/27/2024 5:39 PM EDT [facility] Blood 10/27/2024 5:38 PM EDT 10/27/2024 5:39 PM EDT Saeed Monique MD POINT OF CARE TEST ORDERABLES Final Result [facility]
[address] [place] [address], * Fentanyl, Urine - Urine, Clean Catch (10/27/2024 3:18 PM EDT) Fentanyl, Urine Negative Negative 10/27/2024 4:39 PM EDT [facility] Urine Urine specimen obtained by clean catch procedure / Unknown Collection / Unknown 10/27/2024 3:18 PM EDT 10/27/2024 3:27 PM EDT [facility] - 10/27/2024 4:39 PM EDT Negative [...] Saeed Monique MD URINE ORDERABLES Final Result [facility]
[address] [place] [address], * Urine Drug Screen - Urine, Clean Catch (10/27/2024 3:18 PM EDT) THC, Screen, Urine Negative Negative 2024 4:17 PM EDT [facility] Phencyclidine (PCP), Urine Negative Negative 10/27/2024 4:17 PM EDT [facility] Cocaine Screen, Urine Negative Negative 10/27/2024 4:17 PM EDT [facility] Methamphetamine, Ur Negative Negative 10/27 4:17 PM EDT [facility] Opiate Screen Negative Negative 10/27/2024 4:17 PM EDT [facility] Amphetamine Screen, Urine Negative Negative 10/27/2024 4:17 PM EDT [facility] Benzodiazepine Screen, Urine Negative Negative 10/27/2024 4:17 PM EDT [facility] Tricyclic Antidepressants Screen Negative Negative 10/27/2024 4:17 PM EDT [facility] Methadone Screen, Urine Negative Negative 10/27/2024 4:17 PM EDT [facility] Barbiturates Screen, Urine Negative Negative 10/27/2024 4:17 PM EDT [facility] Oxycodone Screen, Urine Negative Negative 10/27/2024 4:17 PM EDT [facility] Buprenorphine, Screen, Urine Negative Negative 10/27/2024 4:17 PM EDT [facility] Urine Urine specimen obtained by clean catch procedure / Unknown Collection / Unknown 10/27/2024 3:18 PM EDT 10/27/2024 3:27 PM EDT Narrative [facility] - 10/27/2024 4:17 PM EDT [...] Saeed Monique MD URINE ORDERABLES Final Result [facility]
[address] [place] [address], * EEG AWAKE OR DROWSY PORTABLE (10/27/2024 12:15 PM EDT) [facility] NEUROLOGY - 10/27/2024 2:48 PM EDT History: [...] PembertonNjJeremypayamcarson CLAUDIA NEUROLOGY ORDERABLES Fi nal Result Performing Organization Address City/[facility]/ZIP Co de Phone Number NEUROLOGY * POC Glucose Once (10/27/2024 11:15 AM EDT) Glucose 82 70 - 130 mg/dL 10/27/2024 11:16 AM EDT [facility] Blood 10/27/2024 11:1 5 AM EDT 10/27/2024 11:16 AM EDT Saeed Monique MD POINT OF CARE TEST ORDERABLES Final Result Performing Organization Address [facility] Co de Phone Number [facility]
[address] [place] [address], [place] [phone] * Lipid Panel (10/27/2024 9:46 AM EDT) Total Cholesterol 138 0 - 200 mg/dL 10/27/2024 11:15 AM EDT [facility] Triglycerides 42 0 - 150 mg/dL 10/27/2024 11:15 AM EDT [facility] HDL Cholesterol 56 40 - 60 mg/dL 10/27/2024 11:15 AM EDT [facility] LDL Cholesterol 72 0 - 100 mg/dL 10/27/2024 11:15 AM EDT [facility] VLDL Cholesterol 10 5 - 40 mg/dL 10/27/2024 11:15 AM EDT [facility] LDL/HDL Ratio 1.31 10/27/2024 11:15 AM EDT [facility] Blood Venipuncture / Unknown 10/27/2024 9:46 AM EDT 10/27/2024 10:39 AM EDT Narrative [facility] - 10/27/2024 11:15 AM EDT [...] PA-C LAB BLOOD ORDERABLES Final R esult [facility]
[address] [place] [address], * Hemoglobin A1c (10/27/2024 9:46 AM EDT) Hemoglobin A1C 5.33 4.80 - 5.60 % 10/27/2024 12:28 PM EDT [facility] Blood Venipuncture / Unknown 10/27/2024 9:46 AM EDT 10/27/2024 10:40 AM EDT Narrative [facility] - 10/27/2024 12:28 PM EDT Hemoglobin A1C Ranges: Increased Risk for Diabetes 5.7% to 6.4% Diabetes >= 6.5% Diabetic Goal < 7.0% Lamont Hernandez PA-C LAB BLOOD ORDERABLES Final R esult Performing Organization Address [facility]/ZIP Co de Phone Number [facility]
[address] [place] [address], * POC Glucose Once (10/27/2024 1:03 AM EDT) Glucose 97 70 - 130 mg/dL 10/27/2024 1:03 AM EDT [facility] Blood 10/27/2024 1:03 AM EDT 10/27/2024 1:03 AM EDT Thien Becker MD POINT OF CARE TEST ORDERABLES F inal Result Performing Organization Address [facility] de Phone Number [facility]
[address] [place] [address], * Lactic Acid, Plasma (10/26/2024 11:21 PM EDT) Lactate 1.0 0.5 - 2.0 mmol/L 10/27/2024 12:03 AM EDT [facility] Comment:Falsely depressed re sults may occur on samples drawn from patients receiving N-Acetylcysteine (NAC) or Metamizole. Blood Venipuncture / Unknown 10/26/2024 11:21 PM EDT 10/26/2024 11:34 PM EDT Roxy Jimenez APRN LAB BLOOD ORDERABLES Fi nal Result Performing Organization Address [facility] Co de Phone Number [facility]
[address] [place] [address], * (ABNORMAL) CK (10/26/2024 11:21 PM EDT) Creatine Kinase 245(H) 20 - 200 U/L 10/27/2024 12:01 AM EDT [facility] Blood Venipuncture / Unknown 10/26/2024 11:21 PM EDT 10/26/2024 11:34 PM EDT us Roxy Jimenez SOFTWARE TESTER LAB BLOOD ORDERABLES Fi nal Result [facility]
[address] [place] [address], * CT Outside Head (10/26/2024 12:10 AM [...] Region Laterality Modality Radiographic Guillermina ging us [facility] DIAGNOSTIC IMAGING ORDERA BLES [...] Tue10/26/24 at 1999, If patient fails dysphagia, TN option MUST be given. Do not exceed [...] Tue10/26/24 at 1999, If patient fails dysphagia, TN option MUST be given. Do not exceed [...] PRN, Sleep, Starting on Tue10/27/24 at 2348 Given 11/01/2024 8:20 PM EDT 5 mg Given 10/28/2024 7:39 PM EDT 5 mg Given 10/28/2024 1:08 AM EDT 5 mg pantoprazole (PROTONIX) EC tablet 40 mg 40 mg, Oral, [employer], First dose on Tue11/01/24 at 0600, Do [...] Tue10/26/24 at 2000, If patient fails dysphagia, TN option MUST be given. Do not exceed [...] Kiser RN) 1300 (Given - Provider: Ronnie Carter, AVILA) aspirin suppository 300 mg(Linked Group 1) 300 mg, Rectal, Daily, First dose on Tue10/26/24 at 1999, If patient fails dysphagia, TN option MUST be given. Do not exceed [...] with food. 0900 (Given - Provider: Jeanne Snider, RN)1738 (Given - Provider: Jeanne Snider, RN) 0810 (Given - Provider: Jillian Kiser RN)1759 (Given - Provider: Jillian Kiser RN) 1300 (Given - Provider: Ronnie Carter, RN) losartan (COZAAR) tablet 25 mg 25 mg, Oral, Every 24 Hours Scheduled, First dose on Tue11/01/24 at 1100, Hold for SBP less than 100, DBP less than 60. 1147 (Given - Provider: Jillian Kiser RN) 1301 (Given - Provider: Ronnie Carter, RN) pantoprazole (PROTONIX) EC tablet 40 mg 40 mg, Oral, [employer], First dose on Tue11/01/24 at 0600, Do [...] 40 mg (CANCELED) 40 mg, Intravenous, [employer], First dose (after last modification) on Tue10/30/24 [...] Jeanne Snider RN)2205 (Given - Provider: Niru Ariza RN) 0915 (Given - Provider: Jillian Kiser, RN)2019 (Given - Provider: Amita Decker, AVILA) 1312 (Not Given - Provider: Ronnie Carter RN - Reason: Patient/family refused) PRN Medication Order 10/31/2024 11/01/2024 11/02/2024 ipratropium-albuterol (DUO-NEB) nebulizer solution 3 mL 3 mL, Nebulization, Every 6 Hours PRN, Shortness of Air, Starting on Tue10/26/24 at 1924, Include Respiratory Treatment Education melatonin tablet 5 mg 5 mg, Oral, Nightly PRN, Sleep, Starting on Tue10/27/24 at 2348 2019 (Given - Provider: Joel Decker RN) sodium [...] Tue10/26/24 at 1999, If patient fails dysphagia, [place] option MUST be given. Do not exceed [...] Tue10/26/24 at 1999, If patient fails dysphagia, [place] option MUST be given. Do not exceed 4 grams of aspirin in a 24 hr period. If given for pain, use the following pain scale: Mild Pain = Pain Score of 1-3, CPOT 1-2 Moderate Pain = Pain Score of 4-6, CPOT 3-4 Severe Pain = Pain Score of 7-10, CPOT 5-8 documented in this encounter Care Teams [employer]argo [employer] Relationship Specialty Start Date End Date Provider, [place] [address] PCP - General 10/26/24 documented as of this encounter
--- OUTSIDE RECORDS SUMMARY | 2024-10-29 09:30 | XMS_ITS | Encounter Summary ---
Author Organization [facility] Address [address] [place] [address] Care Team Providers Care Sealing Machine Operator Name Role Phone Provider, No Known Primary Care Provider Unavail able Reason for Visit * Auth/Cert Specialty Diagnoses / Procedures Referred By Rosangela t Referred To Contact Diagnoses Cerebrovascular Accident CVA Referral ID Status Reason Start Date Expiration Date Visits Re quested Visits Authorized [id number] 1 1 Encounter Details Date Type Department Care Team (Late st Contact Info) Description 10/29/2024 9:30 AM EDT Anesthesia Event [facility] [address] [place] [address] Ajay Palomares MD [address] [place] [address] [phone] Anesthesia Record Procedure Summary Procedure Name Responsible Anesthesiologist Anesthesia Start Time Anesthesia Stop Time ESOPHAGOGASTRODUODENOSCOPY Ajay Palomares MD 0930 10/29/24 0951 Events Date Time Event Comment 10/29/2024 0911 0921 AN Equip Check 0930 An Start The patient was reevaluated immediately before moderate or deep sedation use and before anesthesia induction. 0930 An Start Data 0937 An Induction 0951 an stop data 0951 Handoff to RN The following has been completed: 1. Identification of Patient, escobar family member(s) or patient surrogate 2. Identification of the responsible Practitioner (primary service) 3. Discussion of the pertinent/attainable medical history 4. Discussion of the surgical/procedure course (procedure, reason for surgery, procedure performed) 5. Intraoperative anesthetic management and issue/concerns to include things such as airway, hemodynamics, narcotic, sedation level and paralytic management and intravenous fluids/blood products and urine output during the procedure 6. Expectations/Plans for the early post-procedure period to include things such as anticipated course (anticipatory guidance), complications, need for laboratory or ECG and medication administration 7. Opportunity for questions and acknowledgment of understanding of report from the receiving PACU/ICU team 0951 An Stop Meds Name Total propofol 10 MG/ML 70 mg lidocaine PF 1% 1 % 100 mg sodium chloride 0.9 % infusion 200 mL * Agents Name O2 N2O Air Sevoflurane Inspired Sevoflurane * Blood No blood administrations on file. Lines, Drains, and Airways Type Details Placement Removal Peripheral IV Placement Date: 10/16 06/12; Placement Time: 0930; Catheter Size: 20 G; Orientation: Right; Location: Forearm; Site Prep: Chlorhexidine; Inserted by: Bernie Jackson RN; Insertion Attempts: 2; Patient Tolerance: Tolerated well; Removal Date: 11/02/24; Removal Time: 1343 10/27/24 0930 by Bernie Jackson RN 11/02/24 1343 by Ronnie Carter RN documented in this encounter Social History Tobacco Use Types Packs/Day Years Used Date Smoking Tobacco: Never Assessed [facility] Utilities Answer Date Recorded In the past 12 months has [employer], gas, oil, or water [employer] threatened to shut off services in your [...] GED or equivalent No 10/29/2024 Preferred Language Panamanian 10/29/2024 Sex and Gender Information Value Date Recorded Sex Assigned at Not on file Legal Sex Male 4:14 PM EDT Gender Identity Not on file Sexual Orientation Not on file documented as of this encounter OR Notes * Anesthesia Postprocedure Evaluation - Abelino Castillo CRNA - 10/29/2024 9:51 AM EDT Patient: Oumar Burnham Procedure Summary Date: 10/29/24 Room / [facility]: [facility] Anesthesia Start: 929 Anesthesia Stop: 950 Procedure: ESOPHAGOGASTRODUODENOSCOPY WITH POSSIBLE DILATION Diagnosis: Surgeons: Mian Garcia MD Provider: Ajay Palomares MD Anesthesia Type: general ASA Status: 3 Anesthesia Type: general Vitals No vitals data found for the desired time range. Post Anesthesia Care and Evaluation Patient location during evaluation: PACU Patient participation: complete - patient participated Level of consciousness: awake Pain score: 0 Pain management: adequate Airway patency: patent Anesthetic complications: No anesthetic complications PONV Status: none Cardiovascular status: acceptable and stable Respiratory status: nasal cannula, unassisted, acceptable and spontaneous ventilation Hydration status: acceptable * Anesthesia Preprocedure Evaluation - Ajay Palomares MD - 10/28/2024 8:17 PM EDT Anesthesia Evaluation Patient summary reviewed and Nursing notes reviewed NPO Solid Status: > 8 hours NPO Liquid Status: > 8 hours Airway Mallampati: I TM distance: >3 FB Neck ROM: full No difficulty expected Dental (+) edentulous Pulmonary (+) ,decreased breath sounds Cardiovascular ECG reviewed Rhythm: irregular Rate: normal (+) hypertension, dysrhythmias Atrial Fib, hyperlipidemia Neuro/Psych (+) psychiatric history, dementia, poor historian. 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 Calculated left ventricular EF = 37.8% Left ventricular ejection fraction appears to be 36 - 40%. Left ventricular diastolic function was indeterminate. ?? Normal right ventricular cavity size and wall thickness noted. Mildly reduced right ventricular systolic function noted. 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 Consider contrasted echo imaging versus cardiac MRI for further characterization if clinically warranted. ?? The left atrial cavity is mildly dilated. ?? Mild mitral valve regurgitation is present. ?? Mild aortic valve regurgitation is present. ?? Mild dilation of the aortic root is present. The aortic root measures 3.8 cm. Anesthesia Plan ASA 3 general total IV anesthesia intravenous induction Anesthetic plan, risks, benefits, and alternatives have been provided, discussed and informed consent has been obtained with: patient. Plan discussed with MARKETING LEAD. CODE STATUS: documented in this encounter Plan of Treatment Upcoming Encounters Date Type Department Care Team (Late st Contact Info) Description 12/26/2024 11:30 AM EDT Office Visit [facility] [address] [place] [phone] Clark Lopez MD [address] [facility] [address] [place] [address] documented as of this encounter Visit Diagnoses Not on filedocumented in this encounter Administered Medications Inactive Administered Medications - up to 3 most recent administrations Medication Order MAR Action Action Date Dose Rate Site lidocaine PF 1% (XYLOCAINE) injection Intravenous, As Needed, Starting on Tue10/29/24 at 0937 Given 10/29/2024 9:37 AM EDT 100 mg propofol (DIPRIVAN) injection Intravenous, As Needed, Starting on Tue10/29/24 at 0937 Given 10/29/2024 9:41 AM EDT 20 mg Given 10/29/2024 9:37 AM EDT 50 mg sodium chloride 0.9 % infusion Intravenous, Continuous PRN, Starting on Tue10/29/24 at 0930 New Bag 10/29/2024 9:30 AM EDT documented in this encounter Care Teams Sealing Machine Operator Relationship Specialty Start Date End Date Provider, No Known [facility] [place] [address] PCP - General 10/26/24 documented as of this encounter
--- OUTSIDE RECORDS SUMMARY | 2024-10-29 10:44 | XMS_ITS | Encounter Summary ---
Author Name [facility] [place] Organization [facility] [place] Address [address] [place] [address] Care Team Providers Care Food Aide Name Role Phone LYSSA CARTER Primary Care [...] PART A Jul 17, 2000 PART A [id number] JESSICA ALVAREZ PATIENT MEDICARE (WNR) MEDICARE (M) PART B Jul 17, 2000 PART B [id number] [phone] [id number] JESSICA ALVAREZ PATIENT MEDICARE (WNR) MEDICARE (M) PART A Jul 17, 2000 PART A [id number] JESSICA ALVAREZ PATIENT MEDICARE (WNR) MEDICARE (M) PART B Jul 17, 2000 PART B [id number] JESSICA ALVAREZ PATIENT Selected Encounter This section includes the information on record at [place] for the Encounter. Date/Time Encounter Type Encounter Description Reason Pro vider Source Oct 29, 2024 02:44 PM Outpatient Encounter ADMIN PAT ACTIVTIES (GLENISNONCT) [...] Date/Time Appointment Type Appointme nt Facility Name Nov 20, 2024 02:07 PM AMBULATORY - MEDICINE [facility] Lab Results: +/- 30 days of [...] Unit Interpretation Reference Range Specimen Type Comment Nov 20, 2024 05:25 PM [facility] URINALYSIS WITH REFLEX TO CULTURE URINE Speci men Type: URINE Comment: ~Urinary frequency, urgency or dysuria Microscopic not indicated Ordering Provider: SARA TABARES Report Released Date/Time: Nov 20, 2024 05:21 PM Reporting Lab: [address] [id number] Performing Lab: [address] [id number] URINE COLOR Light Yellow Colorless-Yello w APPEARANCE Clear Clear UROBILINOGEN Normal mg/dL Normal URINE BLOOD Negative Negative URINE BILIRUBIN Negative Negative URINE KETONES Negative mg/dL Negative URINE PROTEIN Negative mg/dL Negative-Tr tanvir URINE PH 6.5 4.5-8.0 URINE NITRITE Negative Negative URINE LEUKOCYTE EST Negative Negative SPECIFIC GRAVITY 1.008 1.005-1.030 URINE GLUCOSE Negative mg/dL Negative Social History: Smoking Status (Most current) and [...] place. Date/Time Current Smoking Status Comment Cheo salesy Oct 18, 2023 11:45 AM [place]-TOBACCO NEVER USED [facility] Tobacco Use History This section includes a history of the smoking, or tobacco-related health factors, that were collected on or before the date of the Encounter. The data comes from the [place] facility where the Encounter took place. Date/Time Smoking Status/Tobacco Use Comment F acility Oct 21, 2022 09:58 AM [place]-TOBACCO NEVER USED [facility] Jul 23, 2021 11:35 AM [place]-TOBACCO NEVER USED [facility] Nov 01, 2001 10:14 AM HF V9 CURRENT NON-SMOKER [facility] Sep 19, 2000 11:13 AM HF V9 CURRENT NON-SMOKER quit 1982 [facility] Advance Directives: All historical and current [...] 02, 2021 ADVANCE DIRECTIVE DISCUSSION VANE DAWKINS [facility] Feb 13, 2020 ADVANCE DIRECTIVE DISCUSSION VANE DAWKINS [facility] Encounter Notes: All associated encounter notes This section contains the clinical notes associated to the Encounter. Date/Time Encounter Note(s) Provider Source Nov 05, 2024 08:46 AM ADDENDUM: LOCAL TITLE: Addendum STANDARD TITLE: ADDENDUM DATE OF NOTE: NOV 05, 2024@08:46:44 ENTRY DATE: NOV 05, 2024@08:46:45 AUTHOR: TESSIE SAENZ COSIGNER: URGENCY: STATUS: COMPLETED Discharge Disposition Date of discharge: Oct Disposition Discharge to home Handoff to PACT/PCP [facility] Care was informed this was seen for emergent care. Pursuant to 38 CFR 17.4020(c) Authorized emergency treatments, RECORDS REQUESTED Handoff to PACT/PCP for follow up/care coordination as deemed appropriate by the PACT/PCP. per [facility] ischarge Follow-up with PCP As directed Currently Documented PCP: Provider, No Known PCP Phone Number: None Follow Up Details: 1 week Discharge Follow-up with Specified Provider: Moriah Lopez 1 month As directed To: Cardiology Jessica 1 month Enrique Schneider MD 11/02/24 /marlon/ Tessie PUTNAM STRIP MACHINE OPERATORCREDIT REVIEW ANALYST Signed: 11/05/2024 08:48 Receipt Acknowledged By: 11/05/2024 10:58 /marlon/ LYSSA CARTER APRN ADVANCED PRACTICE REGISTERED NURSE, [facility] === --- Original Document --- 10/26/24 [facility] CARE-JO SELF PRESENTING CARE COORD PLAN NOTE: Emergency Notification Intake Date Presenting to the Facility: Oct Date of note has been modified to reflect Date of Service. Reason for modification: HOSPITAL NOTIFICATION DATE/TIME: 10/29/2024 0800 EDT Method of Contact: Notified from [employer] worklist Notification ID: [id number] [facility] Referral #: [facility] Name: Hospital: [facility] Address: City: [place] State: [place] Zip Code: Phone : [facility] Facility Point of Contact: Name: PILAR MOLINA Phone: [phone] Chief complaint: CEREBRAL INFARCTION Primary Diagnosis: Disposition Admitted Route of Admission: ER Date of Admission: Oct Admitting Diagnosis: I639 Community Care Provider: Confirm Level of Care: Acute Inpatient Care /marlon/ Randa SWIFT, drywall professional Nurse Coordinator Signed: 10/29/2024 14:57 Receipt Acknowledged By: 10/29/2024 15:42 /marlon/ LYSSA CARTER APRN ADVANCED PRACTICE REGISTERED NURSE, ANDRÉS 11/01/2024 ADDENDUM STATUS: COMPLETED CONTINUED STAY REVIEW PER [facility] CARE LINK REVIEW Contact Date: 11/01/24 Date of Admission: 10/26/24 Facility Name: [facility] Assessment Persistent AF - previously discussed with daughter possibility of AC, she preferred aspirin alone. If he does go to rehab with closer supervision would strongly consider AC - rates controlled with carvedilol HFmrEF - GDMT: carvedilol - asymptomatic, euvolemic DeedeeKaylene Lopez MD 10/31/2024 16:50 EDT 1652 /marlon/ Tessie Saenz BSN STRIP MACHINE OPERATORCREDIT REVIEW ANALYST Signed: 11/01/2024 09:15 TESSIE SAENZ-CDD [facility] Oct 26, 2024 07:03 PM NONVA NOTE: LOCAL TITLE: COMMUNITY CARE-JO SELF PRESENTING CARE COORD PLAN STANDARD TITLE: NONVA NOTE DATE OF NOTE: OCT 26, 2024@19:03 ENTRY DATE: OCT 29, 2024@14:45:12 AUTHOR: RANDA MARTIN EXP COSIGNER: URGENCY: STATUS: COMPLETED COMMUNITY CARE-JO SELF PRESENTING CARE COORD PLAN NOTE Has ADDENDA Emergency Notification Intake Date Presenting to the Facility: Oct Date of note has been modified to reflect Date of Service. Reason for modification: HOSPITAL NOTIFICATION DATE/TIME: 10/29/2024 0800 EDT Method of Contact: Notified from [employer] worklist Notification ID: [id number] [facility] Referral #: [facility] Name: Hospital: [facility] Address: City: [place] State: [place] Zip Code: Phone : [facility] Facility Point of Contact: Name: PILAR MOLINA Phone: [phone] Chief complaint: CEREBRAL INFARCTION Primary Diagnosis: Disposition Admitted Route of Admission: ER Date of Admission: Oct Admitting Diagnosis: I639 Community Care Provider: Confirm Level of Care: Acute Inpatient Care /marlon/ Randa Martin MSN, drywall professional Nurse Coordinator Signed: 10/29/2024 14:57 Receipt Acknowledged By: 10/29/2024 15:42 /marlon/ LYSSA CARTER APRN ADVANCED PRACTICE REGISTERED NURSE, PC 11/01/2024 ADDENDUM STATUS: COMPLETED CONTINUED STAY REVIEW PER [facility] CARE LINK REVIEW Contact Date: 11/01/24 Date of Admission: 10/26/24 Facility Name: [facility] Assessment Persistent AF - previously discussed with daughter possibility of AC, she preferred aspirin alone. If he does go to rehab with closer supervision would strongly consider AC - rates controlled with carvedilol HFmrEF - GDMT: carvedilol - asymptomatic, euvolemic Vu Lopez MD 10/31/2024 16:50 EDT 1652 /es/ Tessie PUTNAM STRIP MACHINE OPERATORCREDIT REVIEW ANALYST Signed: 11/01/2024 09:15 11/05/2024 ADDENDUM STATUS: COMPLETED Discharge Disposition Date of discharge: Oct Disposition Discharge to home Handoff to PACT/PCP [facility] Care was informed this was seen for emergent care. Pursuant to 38 CFR 17.4020(c) Authorized emergency treatments, RECORDS REQUESTED Handoff to PACT/PCP for follow up/care coordination as deemed appropriate by the PACT/PCP. per [facility] ischarge Follow-up with PCP As directed Currently Documented PCP: Provider, No Known PCP Phone Number: None Follow Up Details: 1 week Discharge Follow-up with Specified Provider: Cardiology Jessica 1 month As directed To: Cardiology Jessica 1 month Enrique Schneider MD 11/02/24 /marlon/ Tessie PUTNAM STRIP MACHINE OPERATORCREDIT REVIEW ANALYST Signed: 11/05/2024 08:48 Receipt Acknowledged By: * AWAITING SIGNATURE * LYSSA CARTER,RANDA GRAJEDA-D [facility]
--- OUTSIDE RECORDS SUMMARY | 2024-10-29 13:14 | XMS_ITS | Encounter Summary ---
Author Name [facility] [place] Address [address] [place] [address] Care Team Providers Care Hand Patcher Name Role Phone LYSSA CARTER Primary Care [...] PART A Jul 17, 2000 PART A [id number] JESSICA ALVAREZ PATIENT MEDICARE (WNR) MEDICARE (M) PART B Jul 17, 2000 PART B [id number] JESSICA ALVAREZ PATIENT MEDICARE (WNR) MEDICARE (M) PART A Jul 17, 2000 PART A [id number] [id number] JESSICA ALVAREZ PATIENT MEDICARE (WNR) MEDICARE (M) PART B Jul 17, 2000 PART B [id number] JESSICA ALVAREZ PATIENT Selected Encounter This section includes the information on record at [place] for the Encounter. Date/Time Encounter Type Encounter Description Reason Provider Source Oct 29, 2024 05:14 PM PH1 ASSMT&MGMT NQHP 5-10 TELEPHONE [facility] ICD-10-CM Z65.9 Problem related to unspecified psychosocial circumstances ELKIN LOUIS IHE Encounter Template Text not used by [place] Assessments - Encounter Diagnoses This section includes the primary and secondary diagnoses documented for the Encounter. Date/Time Primary/Secondary Diagnosis Diagnosis Name Provider Source Oct 29, 2024 05:14 PM PRIMARY Problem related to unspecified psychosocial circumstances HE LOUIS [facility] Plan of Treatment: Future Appointments (+ 6 months) and Future Tests (+/- 45 days) The Plan of Treatment section includes future care activities for the patient from all [place] [facility]. This section includes future appointments and future orders which are active, pending or scheduled. Future Appointments This section includes appointments that were scheduled to occur 6 months from the date of the Encounter, up to a maximum of 20 appointments. The data comes from all [place] treatment facilities. Appointment Date/Time Appointment Type Appointme nt Facility Name Nov 20, 2024 02:07 PM AMBULATORY - MEDICINE [facility] Lab Results: +/- 30 days of the encounter This section includes the Chemistry and Hematology Lab Results on record with [place] for the patient. Radiology Reports and Pathology Reports are provided separately, in subsequent sections. Lab Results This section contains the Chemistry/Hematology Results that were resulted 30 days before or 30 daysafter the date of the Encounter. Date/Time Source Result Type Result - Unit Interpretation Reference Range Specimen Type Comment Nov 20, 2024 05:25 PM [facility]FLEX TO CULTURE URINE Speci men Type: URINE Comment: ~Urinary frequency, urgency or dysuria Microscopic not indicated Ordering Provider: SARA TABARES Report Released Date/Time: Nov 20, 2024 05:21 PM Reporting Lab: [address] [id number] Performing Lab: [address] [address] URINE COLOR Light Yellow Colorless-Yello w APPEARANCE [...] and tobacco- related health factors from the [place] facility where the Encounter took place. Current Smoking Status This section includes the most current smoking, or tobacco-related health factor, from the [place] facility where the Encounter took place. Date/Time Current Smoking Status Comment Facil ity Oct 18, 2023 11:45 AM [place]-TOBACCO NEVER USED [facility] Tobacco Use History This section includes a history of the smoking, or tobacco-related health factors, that were collected on or before the date of the Encounter. The data comes from the [place] facility where the Encounter took place. Date/Time Smoking Status/Tobacco Use Comment F acility Oct 21, 2022 09:58 AM [place]-TOBACCO NEVER USED [facility] Jul 23, 2021 11:35 AM [place]-TOBACCO NEVER USED [facility] Nov 01, 2001 10:14 AM HF V9 CURRENT NON-SMOKER [facility] Sep 19, 2000 11:13 AM HF V9 CURRENT NON-SMOKER quit 1982 [facility] Advance Directives: All historical and current Section Date Range: From patient's date of to the date document was created. This section includes ALL of a patient's completed or amended [place] Advance and Rescinded Directives. The entries below indicate that a directive exists for the patient, but an actual copy is not included with this document. The data comes from all [place] facilities. Date Advance Directives Provider Source Feb 02, 2021 ADVANCE DIRECTIVE DISCUSSION VANE DAWKINS [facility] Feb 13, 2020 ADVANCE DIRECTIVE DISCUSSION [facility] Encounter Notes: All associated encounter notes This section contains the clinical notes associated to the Encounter. Date/Time Encounter Note(s) Provider Source Oct 29, 2024 05:14 PM TELEPHONE ENCOUNTE R NOTE: LOCAL TITLE: [facility] TELEPHONE NOTE STANDARD TITLE: TELEPHONE ENCOUNTER NOTE DATE OF NOTE: OCT 29, 2024@17:14 ENTRY DATE: OCT 29, 2024@17:14:39 AUTHOR: HE [place] EXP COSIGNER: URGENCY: STATUS: COMPLETED Time spent on phone call: 5 min [facility]/ SW telephone note Date: 10/29/24 DX: Problem related to other psychosocial circumstances Procedure: Case management Modifier: Licensed Clinical Senior Cyber Intelligence Analyst Purpose of call: Returned daughter's call concerning 's hospitalization last weekend. Problem addressed: Discharge date uncertain. Daughter is concerned about [place] being able to be safe in his home alone. Discussed placement, but daughter said he is not willing to do so. 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 Will discuss with [place] possible need for placement and assist with this if needed. /marlon/ HE [place] Signed: 10/29/2024 17:21 HE [place]-D [facility]
--- OUTSIDE RECORDS SUMMARY | 2024-11-06 10:00 | XMS_ITS ---
Author Name [facility] [place] Organization [facility] [place] Address [address] [place] [address] Care Team Providers Care Crozer Operator Name Role Phone LYSSA CARTER Primary [...] PART A Jul 17, 2000 PART A [id number] JESSICA ALVAREZ PATIENT MEDICARE (WNR) MEDICARE (M) PART B Jul 17, 2000 PART B [id number] JESSICA ALVAREZ PATIENT MEDICARE (WNR) MEDICARE (M) PART A Jul 17, 2000 PART A [id number] [phone] [id number] JESSICA ALVAREZ PATIENT MEDICARE (WNR) MEDICARE (M) PART B Jul 17, 2000 PART B [id number] JESSICA ALVAREZ PATIENT Selected Encounter This section includes the information on record at [place] for the Encounter. Date/Time Encounter Type Encounter Description Reason Provider Source Nov 06, 2024 02:00 PM HHS/HOSPICE OF RN EA 15 MIN [facility] Nursing (RN / LP) ICD-10-CM I10 Essential (primary) hypertension SANNA FERNANDES IHSeng Encounter Template Text not used by [place] Assessments - Encounter Diagnoses This section includes the primary and secondary diagnoses documented for the Encounter. Date/Time Primary/Secondary Diagnosis Diagnosis Name Provider Source Nov 07, 2024 08:11 AM PRIMARY Essential (primary) hypertension HONORIO FERNANDES [facility] Nov 07, 2024 08:11 AM SECONDARY Osteoarthritis of knee, unspecified HONORIO FERNANDES [place] [facility] Plan of Treatment: Future Appointments (+ 6 months) and Future Tests (+/- 45 days) The Plan of Treatment section includes future care activities for the patient from all [place] treatmentfacilities. This section includes future appointments and future orders which are active, pending or scheduled. Future Appointments This section includes appointments that were scheduled to occur 6 months from the date of the Encounter, up to a maximum of 20 appointments. The data comes from all [place] treatment facilities. Appointment Date/Time Appointment Type Appointme nt Facility Name Nov 20, 2024 02:07 PM AMBULATORY - MEDICINE [facility] Lab Results: +/- 30 days of the encounter This section includes the Chemistry and Hematology Lab Results on record with [place] for the patient. Radiology Reports and Pathology Reports are provided separately, in subsequent sections. Lab Results This section contains the Chemistry/Hematology Results that were resulted 30 days before or 30 daysafter the date of the Encounter. Date/Time Source Result Type Result - Unit Interpretation Reference Range Specimen Type Comment Nov 20, 2024 05:25 PM [facility] URINALYSIS WITH REFLEX TO CULTURE URINE Speci men Type: URINE Comment: ~Urinary frequency, urgency or dysuria Microscopic not indicated Ordering Provider: SARA TABARES Report Released Date/Time: Nov 20, 2024 05:21 PM Reporting Lab: [address] [id number] Performing Lab: [address] [id number] URINE COLOR Light Yellow Colorless-Yello w APPEARANCE [...] Facil ity Oct 18, 2023 11:45 AM [place]-TOBACCO NEVER USED [facility] Tobacco Use History This section includes a history of the smoking, or tobacco-related health factors, that were collected on or before the date of the Encounter. The data comes from the [place] facility where the Encounter took place. Date/Time Smoking Status/Tobacco Use Comment F acility Oct 21, 2022 09:58 AM AL-TOBACCO NEVER USED [facility] Jul 23, 2021 11:35 AM [place]-TOBACCO NEVER USED [facility] Nov 01, 2001 10:14 AM HF V9 CURRENT NON-SMOKER [facility] Sep 19, 2000 11:13 AM HF V9 CURRENT NON-SMOKER quit 1982 [facility] Advance Directives: All historical and [...] 02, 2021 ADVANCE DIRECTIVE DISCUSSION VANE DAWKINS [facility] Feb 13, 2020 ADVANCE DIRECTIVE DISCUSSION VANE DAWKINS [facility] Encounter Notes: All associated encounter notes This section contains the clinical notes associated to the Encounter. Date/Time Encounter Note(s) Provider Source Nov 07, 2024 08:52 AM ADDENDUM: LOCAL TITLE: Addendum STANDARD TITLE: ADDENDUM DATE OF NOTE: NOV 07, 2024@08:52:05 ENTRY DATE: NOV 07, 2024@08:52:06 AUTHOR: HONORIO FERNANDES EXP COSIGNER: URGENCY: STATUS: COMPLETED Please request medical records from [facility] 10/26/24-11/02/24- thank you /marlon/ HONORIO FERNANDES RN Signed: 11/07/2024 08:52 Receipt Acknowledged By: 11/07/2024 10:14 /marlon/ RAMESH FUNES AMSA --- Original Document --- 11/06/24 [facility] NURSING PROGRESS: [facility] FOLLOW-UP NOTE Date of visit: Oct Time spent with patient: 60 min Date of admission to [facility]: Patient Identified by: Name, Facial Recognition, Known Address Source of Information: Patient MEDICATIONS: Active Medications: Active Outpatient Medications (including Supplies): ACETAMINOPHEN 325MG TAB TAKE TWO TABLETS BY MOUTH THREE ACTIVE TIMES A DAY FOR PAIN - DO NOT TAKE MORE THAN 12 TABLETS PER DAY ARTIFICIAL TEARS POLYVINYL ALCOHOL PUT 2 DROPS [...] MOUTH EVERY ACTIVE EVENING FOR PROSTATE UNDERPAD,BED [id number] TRANQUILITY-2710 USE UNDERPAD ACTIVE DIRECTED NEEDED Non-VA MENTHOL 2% GEL,TOP SMALL AMOUNT AFFECTED AREA DAILY ACTIVE NEEDED Non-VA QUNOL CAP/TAB 1 CAP/TAB MOUTH DAILY ACTIVE Indication: supplement 24 Total Medications Kvlk-alk-gukgpqd products used by patient: none per patient- Medications/OTC/supplements started and/or discontinued since last [facility] visit. please yarsani discharge note- Medication list compared with list/medication bottles in the home: Medication Discrepancies: several changes-will need to have clarified. Has the patient missed any doses since the last visit?* No Updated medication list was provided for the patient/caregiver: during the visit Education Provided: Education including regimen, indication for use, potential side effects, and interactions provided for the following medications: reviewed with patient- Medication education and updated medication sheet provided to: Patient Patient/caregiver indicated understanding by: Verbalization Medications set up by: Self, Caregiver, [facility] Staff ([facility]) HOME SAFETY ASSESSMENT: No Unsound structure No Unsafe functional barriers (stairs, etc.) No Unsafe placement of rugs, cords, furniture No Weapons in the home N/A Weapons secured in an area away from the area of care provision No Inadequate Heating/Electricity No Inadequate Cooking Facilities No Inadequate Sleeping Arrangements No Inadequate Ventilation No Inadequate [place]anchese No Unsafe Storage of Supplies/Equipment No Presence of Infestation of Pests Yes Functioning Smoke Alarm Present No Fire Extinguisher Present Yes Fire Exit Plan No Use of Restraints Yes Home is adaptable for Home Care No Smoking materials present in the home N/A Pets secured in an area away from the area of care provision Yes Additional safety concerns: lives alone Temperature: Temperature: 98.2 F (36.8 C) Pulse: Pulse: 54 Respirations: Respirations: 16 Blood Pressure: Blood Pressure: 110/58 Pain: Pain: 3 OXYGEN IN THE HOME: No PAIN EVALUATION: Patient answers YES to Do you have pain? question. Pain Scale: 3 Sometimes distracts me Type of pain: Ache, Dull Location of current pain: kneess Patient's acceptable pain level: 3 Chronic Onset/Duration: Therapeutic Actions Taken: Pharmacological Measures: tyelnol and pain cream- Non-Pharmacological measures: Heat The pain affects your: Physical activity NEUROLOGICAL STATUS: No problems noted The patient is currently: Alert, Oriented to person, Oriented to place, Oriented to situation, Follows verbal commands, Pupils PEARRL The patient exhibits: Short term memory loss, Forgetful Hearing loss, Hearing aide used Visual impairment Education Provided: Safety precautions for cognitively impaired [...] require immediate medication attention (s/s of acute [place], palpitations, ect...), Notify [facility] of new or [...] stated he is voiding-unable to tell how much-BOSS DYER says she has emptied his urinal a [...] of UTI's Will return to see patient within two weeks- PCP, Patient is very unsteady on his feet-he has to hold onto the doors or agarwal to walk-he refused to go to rehab after recent hospitalization-he is agreeable to home PT. 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- He was diagnosised with AFib-patient and daughter declined using any blood thinners-also notes CHF- the following medications were listed: Losartan 25 mg take once a day-had this in the home Atorvastatin 40 mg takes once a day-prior to hospilization he on rosuvastatin- had the atorvastatin in the home- Aspirin 81 mg-prior was taking 325-will need filled if he is to cont the 81 mg dose- Omeprazole 40 mg-was decreased to 1 capsule twice a day-was two twice a day Tamsulosin 0.4 once a day-this was a decrease outside urologist has him on two capsules once a day- Finasteride-5 mg once a day His senna and miralex had been stopped-however he wants those back-otherwise he has trouble with constipation- Caredilol 6.25 take one bid-this is new-and did not have in the home-so he has not had this since he left the hospital He wants to cont both his pain creams- The hospital made him an appt to see the cardologist at [facility] in Dec- however [facility] so he says if he has to see a space engineer [facility]- Will see patient again after medications have been reviewed and will make changes to mediplanners as needed- /es/ HONORIO FERNANDES RN Signed: 11/07/2024 08:11 Receipt Acknowledged By: * AWAITING SIGNATURE * BOBBI BLACKWELL * AWAITING SIGNATURE * LYSSA CARTER EDITH F [place]-CDD [facility] Nov 06, 2024 05:30 PM [facility] NURSING NOTE: LOCAL TITLE: [facility] NURSING PROGRESS STANDARD TITLE: [facility] NURSING NOTE DATE OF NOTE: NOV 06, 2024@17:30 ENTRY DATE: NOV 06, 2024@17:30:26 AUTHOR: HONORIO FERNANDES EXP COSIGNER: URGENCY: STATUS: COMPLETED [facility] NURSING PROGRESS Has ADDENDA [facility] FOLLOW-UP NOTE Date of visit: Oct Time spent with patient: 60 min Date of admission to [facility]: Patient Identified by: Name, Facial Recognition, Known Address Source of Information: Patient MEDICATIONS: Active Medications: Active Outpatient Medications (including Supplies): ACETAMINOPHEN 325MG TAB TAKE TWO TABLETS BY MOUTH THREE ACTIVE TIMES A DAY FOR PAIN - DO NOT TAKE MORE THAN 12 TABLETS PER DAY ARTIFICIAL TEARS POLYVINYL ALCOHOL PUT 2 DROPS [...] MOUTH EVERY ACTIVE EVENING FOR PROSTATE UNDERPAD,BED [id number] TRANQUILITY-2710 USE UNDERPAD ACTIVE DIRECTED NEEDED Non-VA MENTHOL 2% GEL,TOP SMALL AMOUNT AFFECTED AREA DAILY ACTIVE NEEDED Non-VA QUNOL CAP/TAB 1 CAP/TAB MOUTH DAILY ACTIVE Indication: supplement 24 Total Medications Mvwu-unz-jyxxsbg products used by patient: none per patient- Medications/OTC/supplements started and/or discontinued since last [facility] visit. please yarsani discharge note- Medication list compared with list/medication bottles in the home: Medication Discrepancies: several changes-will need to have clarified. Has the patient missed any doses since the last visit?* No Updated medication list was provided for the patient/caregiver: during the visit Education Provided: Education including regimen, indication for use, potential side effects, and interactions provided for the following medications: reviewed with patient- Medication education and updated medication sheet provided to: Patient Patient/caregiver indicated understanding by: Verbalization Medications set up by: Self, Caregiver, [facility] Staff ([facility]) HOME SAFETY ASSESSMENT: No Unsound structure No Unsafe functional barriers (stairs, etc.) No Unsafe placement of rugs, cords, furniture No Weapons in the home N/A Weapons secured in an area away from the area of care provision No Inadequate Heating/Electricity No Inadequate Cooking Facilities No Inadequate Sleeping Arrangements No Inadequate Ventilation No Inadequate [place] No Unsafe Storage of Supplies/Equipment No Presence of Infestation of Pests Yes Functioning Smoke Alarm Present No Fire Extinguisher Present Yes Fire Exit Plan No Use of Restraints Yes Home is adaptable for Home Care No Smoking materials present in the home N/A Pets secured in an area away from the area of care provision Yes Additional safety concerns: lives alone Temperature: Temperature: 98.2 F (36.8 C) Pulse: Pulse: 54 Respirations: Respirations: 16 Blood Pressure: Blood Pressure: 110/58 Pain: Pain: 3 OXYGEN IN THE HOME: No PAIN EVALUATION: Patient answers YES to Do you have pain? question. Pain Scale: 3 Sometimes distracts me Type of pain: Ache, Dull Location of current pain: kneess Patient's acceptable pain level: 3 Chronic Onset/Duration: Therapeutic Actions Taken: Pharmacological Measures: tyelnol and pain cream- Non-Pharmacological measures: Heat The pain affects your: Physical activity NEUROLOGICAL STATUS: No problems noted The patient is currently: Alert, Oriented to person, Oriented to place, Oriented to situation, Follows verbal commands, Pupils PEARRL The patient exhibits: Short term memory loss, Forgetful Hearing loss, Hearing aide used Visual impairment Education Provided: Safety precautions for cognitively impaired [...] require immediate medication attention (s/s of acute [place], palpitations, ect...), Notify [facility] of new or worsening symptoms, [...] stated he is voiding-unable to tell how much-BOSS DYER says she has emptied his urinal a [...] of UTI's Will return to see patient within two weeks- PCP, Patient is very unsteady on his feet-he has to hold onto the doors or agarwal to walk-he refused to go to rehab after recent hospitalization-he is agreeable to home PT. 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- He was diagnosised with AFib-patient and daughter declined using any blood thinners-also notes CHF- the following medications were listed: Losartan 25 mg take once a day-had this in the home Atorvastatin 40 mg takes once a day-prior to hospilization he on rosuvastatin- had the atorvastatin in the home- Aspirin 81 mg-prior was taking 325-will need filled if he is to cont the 81 mg dose- Omeprazole 40 mg-was decreased to 1 capsule twice a day-was two twice a day Tamsulosin 0.4 once a day-this was a decrease outside urologist has him on two capsules once a day- Finasteride-5 mg once a day His senna and miralex had been stopped-however he wants those back-otherwise he has trouble with constipation- Caredilol 6.25 take one bid-this is new-and did not have in the home-so he has not had this since he left the hospital He wants to cont both his pain creams- The hospital made him an appt to see the cardologist at [facility] in Dec- however he relies on [facility] trans[facility] so he says if he has to see a space engineer he [facility] come [facility] so [facility] can get [facility]- Will see patient again after medications have been reviewed and will make changes to mediplanners as needed- /marlon/ HONORIO FERNANDES RN Signed: 11/07/2024 08:11 Receipt Acknowledged By: 11/08/2024 09:09 /marlon/ Bobbi Blackwell, Pharm.D. Clinical Pharmacist - [facility] 11/07/2024 14:50 /marlon/ LYSSA CARTER APRN ADVANCED PRACTICE REGISTERED NURSE, [facility] 11/07/2024 ADDENDUM STATUS: COMPLETED Please request medical records from [facility] 10/26/24-11/02/24- thank you /marlon/ HONORIO FERNANDES RN Signed: 11/07/2024 08:52 Receipt Acknowledged By: 11/07/2024 10:14 /es/ RAMESH FERNANDES,HONORIO GRAJEDA-ROYER [facility]
--- OUTSIDE RECORDS SUMMARY | 2024-11-07 04:11 | XMS_ITS | Encounter Summary ---
Author Name [facility] [place] Organization [place] Address [address] [place] [address] Care Team Providers Care Flying Ii Instructor Name Role Phone LYSSA CARTER Primary Care [...] PART A Jul 17, 2000 PART A [id number] [phone] JESSICA ALVAREZ PATIENT MEDICARE (WNR) MEDICARE (M) PART B Jul 17, 2000 PART B [id number] [id number] [phone] JESSICA ALVAREZ PATIENT MEDICARE (WNR) MEDICARE (M) PART A Jul 17, 2000 PART A [id number] JESSICA ALVAREZ PATIENT MEDICARE (WNR) MEDICARE (M) PART B Jul 17, 2000 PART B [id number] JESSICA ALVAREZ PATIENT Selected Encounter This section includes the information on record at [place] for the Encounter. Date/Time Encounter Type Encounter Description Reason Pro vider Source Nov 07, 2024 08:11 AM Outpatient Encounter ADMIN PAT ACTIVTIES (GLENISNONCT) IHE Encounter Template Text not used by [place] Plan of Treatment: Future Appointments (+ 6 months) and Future Tests (+/- 45 days) The Plan of Treatment section includes future care activities for the patient from all [place] treatmentfacilities. This section includes future appointments and future orders which are active, pending or scheduled. Future Appointments This section includes appointments that were scheduled to occur 6 months from the date of the Encounter, up to a maximum of 20 appointments. The data comes from all [place] treatment facilities. Appointment Date/Time Appointment Type Appointme nt Facility Name Nov 20, 2024 02:07 PM AMBULATORY - MEDICINE [facility] Lab Results: +/- 30 days of the encounter This section includes the Chemistry and Hematology Lab Results on record with [place] for the patient. Radiology Reports and Pathology Reports are provided separately, in subsequent sections. Lab Results This section contains the Chemistry/Hematology Results that were resulted 30 days before or 30 daysafter the date of the Encounter. Date/Time Source Result Type Result - Unit Interpretation Reference Range Specimen Type Comment Nov 20, 2024 05:25 PM [facility] URINALYSIS WITH REFLEX TO CULTURE URINE Speci men Type: URINE Comment: ~Urinary frequency, urgency or dysuria Microscopic not indicated Ordering Provider: SARA TABARES Report Released Date/Time: Nov 20, 2024 05:21 PM Reporting Lab: [address] [id number] Performing Lab: [address] [address] URINE COLOR Light Yellow Colorless-Yello w APPEARANCE [...] Cheo ity Oct 18, 2023 11:45 AM [place]-TOBACCO NEVER USED [facility] Tobacco Use History This section includes a history of the smoking, or tobacco-related health factors, that were collected on or before the date of the Encounter. The data comes from the [place] facility where the Encounter took place. Date/Time Smoking Status/Tobacco Use Comment F acility Oct 21, 2022 09:58 AM [place]-TOBACCO NEVER USED [facility] Jul 23, 2021 11:35 AM [place]-TOBACCO NEVER USED [facility] Nov 01, 2001 10:14 AM HF V9 CURRENT NON-SMOKER [facility] Sep 19, 2000 11:13 AM HF V9 CURRENT NON-SMOKER quit 1982 [facility] Advance Directives: All historical and current [...] 02, 2021 ADVANCE DIRECTIVE DISCUSSION VANE DAWKINS [facility] Feb 13, 2020 ADVANCE DIRECTIVE DISCUSSION VANE DAWKINS [facility] Encounter Notes: All associated encounter notes This section contains the clinical notes associated to the Encounter. Date/Time Encounter Note(s) Provider Source Oct 26, 2024 04:30 PM NONVA NOTE: LOCAL TITLE: [facility] CARE COORD PLAN STANDARD TITLE: NONVA NOTE DATE OF NOTE: OCT 26, 2024@16:30 ENTRY DATE: NOV 07, 2024@08:11:50 AUTHOR: FELICE MONTES COSIGNER: URGENCY: STATUS: COMPLETED Emergency Notification Intake Date Presenting to the Facility: Oct Date of note has been modified to reflect Date of Service. Reason for modification: Hospital Notification Date:10/26/2024 5:33 PM EDT Method of Contact: Notified from ECR worklist Notification ID: [id number] [facility] Referral #: [facility] Name: Hospital: [facility] Address: City: [place] State: [place] Zip Code: Phone : [facility] Facility Point of Contact: Name: ECHO ABARCA Chief complaint: POSSIBLE CVA Primary Diagnosis: Disposition Transfer Transfer to other [facility] Higher level of care Facility Name: [facility] Address: City: [place] State: [place] Facility POC: POC Phone: [facility] Community Care was informed this was seen for emergent care. Records requested for upload and review: Pursuant to 38 CFR 17.4020(c)Authorized emergency treatments. Handoff to PACT/PCP for follow up/care coordination as deemed appropriate by the PACT/PCP. /marlon/ INDY LANDAVERDE dining room helper Nurse Coordinator Signed: 11/07/2024 08:14 Receipt Acknowledged By: 11/07/2024 08:27 /marlon/ LYSSA CARTER APRN ADVANCED PRACTICE REGISTERED NURSE, FELICE FAJARDONEW [facility]
--- OUTSIDE RECORDS SUMMARY | 2024-11-08 05:09 | XMS_ITS ---
Author Name [facility] Organization [facility] Address [address] [place] [address] Care Team Providers Care Ultrasonic Cleaner Name Role Phone LYSSA CARTER Primary Care [...] PART A Jul 17, 2000 PART A [id number] [phone] JESSICA ALVAREZ PATIENT MEDICARE (WNR) MEDICARE (M) PART B Jul 17, 2000 PART B [id number] JESSICA ALVAREZ PATIENT MEDICARE (WNR) MEDICARE (M) PART A Jul 17, 2000 PART A [id number] JESSICA ALVAREZ PATIENT MEDICARE (WNR) MEDICARE (M) PART B Jul 17, 2000 PART B [id number] JESSICA ALVAREZ PATIENT Selected Encounter This section includes the information on record at [place] for the Encounter. 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 This section includes future appointments and [...] 20, 2024 02:07 PM AMBULATORY - MEDICINE [facility] Lab Results: +/- 30 days of the encounter This section includes the Chemistry and Hematology Lab Results on record with [place] for the patient. Radiology Reports and Pathology Reports are provided separately, in subsequent sections. Lab Results This section contains the Chemistry/Hematology Results that were resulted 30 days before or 30 daysafter the date of the Encounter. Date/Time Source Result Type Result - Unit Interpretation Reference Range Specimen Type Comment Nov 20, 2024 05:25 PM [facility] URINALYSIS WITH REFLEX TO CULTURE URINE Speci men Type: URINE Comment: ~Urinary frequency, urgency or dysuria Microscopic not indicated Ordering Provider: SARA TABARES Report Released Date/Time: Nov 20, 2024 05:21 PM Reporting Lab: [address] [address] Performing Lab: [address] [address] URINE COLOR Light Yellow Colorless-Yello w APPEARANCE [...] Facil ity Oct 18, 2023 11:45 AM [place]-TOBACCO NEVER USED [facility] Tobacco Use History This section includes a history of the smoking, or tobacco-related health factors, that were collected on or before the date of the Encounter. The data comes from the [place] facility where the Encounter took place. Date/Time Smoking Status/Tobacco Use Comment F acility Oct 21, 2022 09:58 AM [place]-TOBACCO NEVER USED [facility] Jul 23, 2021 11:35 AM [place]-TOBACCO NEVER USED [facility] Nov 01, 2001 10:14 AM HF V9 CURRENT NON-SMOKER [facility] Sep 19, 2000 11:13 AM HF V9 CURRENT NON-SMOKER quit 1982 [facility] Advance Directives: All historical and current [...] 02, 2021 ADVANCE DIRECTIVE DISCUSSION VANE DAWKINS [facility] Feb 13, 2020 ADVANCE DIRECTIVE DISCUSSION VANE DAWKINS [facility] Encounter Notes: All associated encounter notes This section contains the clinical notes associated to the Encounter. Date/Time Encounter Note(s) Provider Source Nov 13, 2024 08:41 AM ADDENDUM: LOCAL TITLE: Addendum STANDARD TITLE: ADDENDUM DATE OF NOTE: NOV 13, 2024@08:41:50 ENTRY DATE: NOV 13, 2024@08:41:50 AUTHOR: BOBBI BLACKWELL EXP COSIGNER: URGENCY: STATUS: COMPLETED - dc'd amlodipine and diltiazem SA, not taking - defer to Provider re: adding carvedilol, BP and HR low last check and Rx for losartan - OK to cont atorvastatin or resume rosuvastatin - agree with decrease of ASA to 81mg daily /marlon/ Bobbi Blackwell, PharmKayleneDKaylene Clinical Pharmacist - [facility] Signed: 11/13/2024 08:44 Receipt Acknowledged By: 11/13/2024 15:23 /es/ LYSSA CARTER APRN ADVANCED PRACTICE REGISTERED NURSE, [facility] --- Original Document --- 11/08/24 [facility] PHARMACY NOTE: PMH: 1. Malnutrition 2. Gastro-esophageal reflux disease [...] Osteoarthritis of knee 17. Constipation (SNOMED CT 94315868) 18. Unspecified Housing or Economic Circumstance 19. Other Nonspecific Abnormal Finding of Lung Field 20. Gross Hematuria 21. 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 Hyperlipidemia (SNOMED CT 73931655) 23. Diverticular Disease and polyp (per colonoscopy 02-22. Path: hyperplastic) 24. Chronic bronchitis 25. Gastroesophageal reflux disease (SNOMED CT 116364717) (s/p H Pylori treatment 06/16) with hiatal hernia (per UGI 04-20) 26. 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 Anxiety disorder (SNOMED CT 239360522) Allergies: LOVASTATIN, BENAZEPRIL VS: SVS - Vital Signs Selected Measurement DT BP TEMP RESP PULSE POx F(C) (L/MIN)(%) 11/06/2024 14:00 110/58 98.2(36.8) 16 54 Immunizations: IM - Immunizations ADMINISTERED Immunization Series Date Facility Reaction Info COVID-19 (MODERNA), MRNA, LNP-S,* 01/12/2024 [facility]* INFLUENZA, HIGH-DOSE, TRIVALENT,* 01/12/2024 [facility]* PNEUMOCOCCAL CONJUGATE PCV20, PO* 03/17/2022 [facility]* TD (ADULT), 5 LF TETANUS TOXOID,* 04/08/2023 [facility]* ZOSTER RECOMBINANT 1 02/18/2021 [facility]* ZOSTER RECOMBINANT 1 02/05/2021 [facility]* Medications: Active and Recently Outpatient Medications (including Supplies): Active Outpatient Medications Status 1) ACETAMINOPHEN 325MG TAB TAKE TWO TABLETS BY MOUTH THREE ACTIVE TIMES A DAY FOR PAIN - DO NOT TAKE MORE THAN 12 TABLETS PER DAY 2) ARTIFICIAL TEARS POLYVINYL ALCOHOL PUT 2 DROPS IN EYE(S) ACTIVE DIRECTED NEEDED Indication: FOR DRY EYES 3) ASCORBIC ACID 250MG TAB TAKE ONE TABLET BY MOUTH ON TUESDAY, ACTIVE TUESDAY, TUESDAY, AND TUESDAY Indication: FOR NUTRITION 4) ASPIRIN 325MG EC TAB TAKE ONE [...] NEEDED FOR PAIN APPLY TO KNEES 10) DILTIAZEM (EQV-TIAZAC) 360MG 24HR CAP TAKE ONE CAPSULE BY ACTIVE MOUTH DAILY FOR BLOOD PRESSURE/HEART - DO NOT DRINK GRAPEFRUIT JUICE WHILE ON THIS DRUG 11) FERROUS SULFATE 324MG EC TAB TAKE ONE TABLET BY MOUTH ON ACTIVE TUESDAY, TUESDAY, TUESDAY, AND TUESDAY Indication: FOR IRON SUPPLEMENT 12) FINASTERIDE 5MG TAB TAKE ONE TABLET BY MOUTH DAILY FOR ACTIVE PROSTATE - HAZARDOUS HANDLING ALERT 13) FLUTICASONE PROP 50MCG 120D NASAL INHL USE 2 SPRAYS IN EACH ACTIVE NOSTRIL AT BEDTIME FOR NASAL ALLERGY 14) MELOXICAM 7.5MG TAB TAKE ONE TABLET BY MOUTH DAILY -TAKE ACTIVE WITH FOOD OR MILK Indication: FOR PAIN OR INFLAMMATION 15) MENTHOL/M-SALICYLATE 16-30% TOP CREAM APPLY TO AFFECTED AREA ACTIVE THREE TIMES A DAY NEEDED FOR LOCAL PAIN. APPLY TO KNEES 16) NUTRITION SUPL ENSURE PLUS/VANILLA LIQ TAKE 1 CAN BY MOUTH ACTIVE THREE TIMES A DAY Indication: FOR NUTRITION 17) OMEPRAZOLE 20MG EC CAP TAKE TWO CAPSULES BY MOUTH TWICE A ACTIVE DAY FOR STOMACH. TAKE ON AN EMPTY STOMACH 30 MINUTES BEFORE A MEAL 18) PSYLLIUM ORAL PWD MIX 1 TEASPOONFUL (5ML) IN 8 OZ GLASS OF ACTIVE WATER AND TAKE BY MOUTH DAILY FOR CONSTIPATION 19) ROSUVASTATIN CA 10MG TAB TAKE ONE-HALF TABLET BY MOUTH AT ACTIVE BEDTIME FOR CHOLESTEROL 20) SENNOSIDES 8.6MG TAB TAKE THREE TABLETS BY MOUTH DAILY FOR ACTIVE CONSTIPATION 21) TAMSULOSIN HCL 0.4MG CAP TAKE TWO CAPSULES BY MOUTH EVERY ACTIVE EVENING FOR PROSTATE 22) UNDERPAD,BED [id number] TRANQUILITY-2710 USE UNDERPAD ACTIVE DIRECTED NEEDED Inactive Outpatient Medications Status 1) AMLODIPINE BESYLATE 5MG TAB TAKE ONE TABLET BY MOUTH DAILY FOR BLOOD PRESSURE/HEART - DO NOT DRINK GRAPEFRUIT JUICE WHILE ON THIS DRUG 2) BRIEF,TRANQ MARYBETH OVERNITE M#[id number] PULLUP USE 1 BRIEF DIRECTED THREE TIMES A DAY FOR INCONTINENCE Active Non-VA Medications Status 1) Non-VA MENTHOL 2% GEL,TOP SMALL AMOUNT AFFECTED AREA DAILY ACTIVE NEEDED 2) Non-VA QUNOL CAP/TAB 1 CAP/TAB MOUTH DAILY ACTIVE Indication: supplement Labs: [facility] 10/28/24 WBC 4.81 3.40 - 10.80 10*3/mm3 RBC 5.42 4.14 - 5.80 10*6/mm3 Hemoglobin 14.9 13.0 - 17.7 g/dL Hematocrit 43.1 37.5 - 51.0 % MCV 79.5 79.0 - 97.0 fL MCH 27.5 26.6 - 33.0 pg MCHC 34.6 31.5 - 35.7 g/dL RDW 15.1 12.3 - 15.4 % RDW-SD 43.6 37.0 - 54.0 fl MPV 10.9 6.0 - 12.0 fL Platelets 168 140 - 450 10*3/mm3 Glucose 85 65 - 99 mg/dL BUN 21.0 8.0 - 23.0 mg/dL Creatinine 1.10 0.76 - 1.27 mg/dL Sodium 140 136 - 145 mmol/L Potassium 4.0 3.5 - 5.2 mmol/L Chloride 104 98 - 107 mmol/L CO2 24.0 22.0 - 29.0 mmol/L Calcium 9.2 8.6 - 10.5 mg/dL BUN/Creatinine Ratio 19.1 7.0 - 25.0 Anion Gap 12.0 5.0 - 15.0 mmol/L eGFR 64.2 >60.0 mL/min/1.73 Lactate 1.3 0.5 - 2.0 mmol/L Hemoglobin A1C 5.33 4.80 - 5.60 % Total Cholesterol 138 0 - 200 mg/dL Triglycerides 42 0 - 150 mg/dL HDL Cholesterol 56 40 - 60 mg/dL LDL Cholesterol 72 0 - 100 mg/dL VLDL Cholesterol 10 5 - 40 mg/dL LDL/HDL Ratio 1.31 TSH: ____ B-12/FOLATE: Collection DT Specimen Test [...] 30.0 ng/mL 20.0 - 50.0 Estimated CrCl: 44 ml/min (ABW and Scr) Lipid Goal: moderate-dose statin (TIA) - met BP Goal: <150/90 - met Medication Outcomes VA meds: APAP 650mg TID: pain AMLODIPINE BESYLATE 5MG TAB DAILY: HTN (exp) Artificial tears 1 gtt OU QID PRN: dry eyes ASCORBIC ACID 250MG TAB M/W/F W/ IRON: ANEMIA ASA EC 325mg daily: TIA *81mg* atorvastatin (LIPITOR) 40 MG tablet HS (new) Ladarius/Vitamin D 500/200mg daily: supplement carvedilol (COREG) 6.25 MG BID: A.fib/HTN/HF (new, not taking) Cetirizine 5mg daily: AR DICLOFENAC NA 1% TOP GEL Q6 HOURS NEEDED FOR KNEE PAIN Diltiazem SA 360mg daily: HTN FERROUS SULFATE 324MG EC TAB M/W/F W/ ASCORBIC ACID: ANEMIA Finasteride 5mg daily: BPH Fluticasone NS 2 sprays IEN HS: allergies losartan (COZAAR) 25 MG daily: HTN/HF (new) MELOXICAM 7.5MG TAB DAILY FOR PAIN OR INFLAMMATION Menthol/m-salicylate cream UD: OA pain/knees NUTRITION SUPL ENSURE PLUS/VANILLA LIQ TID: NUTRITION Omeprazole EC 40mg BID: GERD Psyllium pwdr 5ml in water daily: constipation Rosuvastatin 5mg QHS: HLD Sennosides 8.6mg 3 tabs daily: constipation Tamsulosin 0.8mg qPM: BPH NonVA meds: Menthol 2% gel sm amt AA daily prn: knee pain Qunol Advanced Sterling 3 krill and Fish Oil Complex daily: [...] New therapies/medication changes since last Pharmacy review: *Date Presenting to the Facility: Sep Hospital: [facility] Chief complaint: CONSTIPATION Discharged FROM ED *Date Presenting to the Facility: Oct Hospital: [facility] Chief complaint: POSSIBLE CVA Transfer to other [facility] Higher level of care Facility Name: [facility] *Date Presenting to the Facility: Oct Hospital: [facility] Confirm Level of Care: Acute Inpatient Care Assessment Persistent AF - previously discussed with daughter possibility of AC, she preferred aspirin alone. If he does go to rehab with closer supervision would strongly consider AC - rates controlled with carvedilol HFmrEF - GDMT: carvedilol - asymptomatic, euvolemic [facility] clinical summary meds tamsulosin (FLOMAX) 0.4 MG capsule 24 hr capsule Take 2 capsules by mouth Daily. carvedilol (COREG) 6.25 MG tablet Take 1 tablet by mouth 2 (Two) Times a Day finasteride (PROSCAR) 5 MG tablet Take 1 tablet by mouth Daily. omeprazole (priLOSEC) 40 MG capsule Take 1 capsule by mouth 2 (Two) Times a Day. aspirin 81 MG chewable tablet Chew 1 tablet Daily atorvastatin (LIPITOR) 40 MG tablet Take 1 tablet by mouth Every Night losartan (COZAAR) 25 MG tablet Take 1 tablet by mouth Daily. STOP amLODIPine (NORVASC) 5 MG tablet aspirin 325 MG tablet Diclofenac Sodium (VOLTAREN) 1 % gel gel dilTIAZem CD (CARDIZEM CD) 180 MG 24 hr capsule potassium chloride (MICRO-K) 10 MEQ CR capsule rosuvastatin (CRESTOR) 10 MG tablet bisacodyl (DULCOLAX) 5 MG EC tablet amoxicillin-clavulanate (AUGMENTIN) 875-125 MG per tablet levoFLOXacin (LEVAQUIN) 750 MG tablet polyethylene glycol (MIRALAX) 17 g powder senna (SENOKOT) 8.6 MG tablet Plan/recommendations: 1. Problem list: recommend to add A.fib and CHF. 2. Immunizations: up to date. 3. Med rec: APAP 650mg TID: pain - OK to resume/continue AMLODIPINE BESYLATE 5MG TAB DAILY: HTN (exp) - rec to d/c Artificial tears 1 gtt OU QID PRN: dry eyes - OK to resume ASCORBIC ACID 250MG TAB M/W/F W/ IRON: ANEMIA - rec to d/c ASA EC 325mg daily: TIA *81mg* - rec decrease to 81mg atorvastatin (LIPITOR) 40 MG tablet HS (new) - resume rosuva Ladarius/Vitamin D 500/200mg daily: supplement - OK to resume carvedilol (COREG) 6.25 MG BID: A.fib/HTN/HF (new, not taking) - evaluate appropriateness of start, BP and HR were low at RN visit and pt not yet taking. If pt was taking diltiazem and amlodipine, could d/c these and start carvedilol Cetirizine 5mg daily: AR - OK to resume or trial off DICLOFENAC NA 1% TOP GEL Q6 HOURS NEEDED FOR KNEE PAIN - OK to resume Diltiazem SA 360mg daily: HTN (EXP) - d/c? FERROUS SULFATE 324MG EC TAB M/W/F W/ ASCORBIC ACID: ANEMIA - rec to d/c Finasteride 5mg daily: BPH - cont Fluticasone NS 2 sprays IEN HS: allergies - OK to resume losartan (COZAAR) 25 MG daily: HTN/HF (new) - rec to continue MELOXICAM 7.5MG TAB DAILY FOR PAIN OR INFLAMMATION - rec to d/c d/t HF Menthol/m-salicylate cream UD: OA pain/knees - OK to resume NUTRITION SUPL ENSURE PLUS/VANILLA LIQ TID: NUTRITION - resume Omeprazole EC 40mg BID: GERD - cont Psyllium pwdr 5ml in water daily: constipation - ok to resume Rosuvastatin 5mg QHS: HLD - OK to resume Sennosides 8.6mg 3 tabs daily: constipation - OK to resume Tamsulosin 0.8mg qPM: BPH - cont NonVA meds: Menthol 2% gel sm amt AA daily prn: knee pain - OK to resume Qunol Advanced Sterling 3 krill and Fish Oil Complex daily: supplement 3. A.fib: CHADS-VASc 6, HAS-BLED 5; anticoagulation is recommended to prevent stroke and systemic thromboembolism. Pt's adjusted annual risk of stroke with no therapy is 9.7%. Recommend apixaban 5mg BID to reduce annual risk to 2.5% and d/c ASA. CG has previously declined anticoagulation and prefers to continue ASA. Pt should continue a medication for rate control. 3. HF: Amlodipine and diltiazem SA were dc'd at [facility]. Carvedilol and losartan were started for HF. BP and HR were low at RN recheck. Seems pt is taking losartan but is not yet taking carvedilol. If pt is currently taking his VA BP meds, these could be d/c'd and carvedilol added, possibly at decreased dose. Metoprolol SA could be given instead for less effect on BP. Recommend to d/c meloxicam d/t HF. 4. Lipids: Pt was changed from rosuvastatin to atorvastatin while inpt, possibly due to local formulary. OK to continue atorvastatin or change back to rosuvastatin. 5. Anemia: HGB>14 per nonVA labs above. Recommend to d/c iron/vit C (could also be contributing to constipation). 6. Labs: recommend recheck of panel 1 d/t new ARB. medications for review: amlodipine (rec to remain off) Medications were reviewed by Pharm.D. for therapeutic indications as well as appropriate dosing for renal function when current labs available and not enrolled in hospice care. Continue to review quarterly. Time Spent Reviewing Chart: 40 min PBM PharmD Pharmacotherapy Rem V12: Medication monitoring or diagnostic evaluation (e.g., other labs, EKG) Medication reconciliation (changes to active VA and non-VA medication lists to reconcile differences) Changes to medication lists made Discontinue or remove medication Add or renew medication /marlon/ Bobbi Blackwell Pharm.D. Clinical Pharmacist - [facility] Signed: 11/08/2024 10:19 Receipt Acknowledged By: 11/08/2024 15:59 /es/ HONORIO FERNANDES RN 11/08/2024 14:25 /es/ LYSSA CARTER APRN ADVANCED PRACTICE REGISTERED NURSE, [facility] 11/13/2024 ADDENDUM STATUS: COMPLETED Patient is taking the losartan-and the atorvastatin- Carvediolol-did not have any of this in the home-so has not taken since discharge- Aspirin-currently still taking the 325-did not have the 81 mg in the home- Will need the carvediolol-if he is to take and the aspirin 81 mg sent out locally so it can be placed in his mediplanners if he is to cont. He has not been taking the following due to be stopped at D/C from [facility]- Amlodipine and diltiazem SA [facility] RN will see patient next week-to prefill meds- /es/ HONORIO FERNANDES RN Signed: 11/13/2024 08:37 Receipt Acknowledged By: 11/13/2024 08:41 /marlon/ Bobbi Blackwell, Pharm.D. Clinical Pharmacist - [facility] * AWAITING SIGNATURE * LYSSA CARTER JAMI L [place] Nov 13, 2024 08:26 AM ADDENDUM: LOCAL TITLE: Addendum STANDARD TITLE: ADDENDUM DATE OF NOTE: NOV 13, 2024@08:26:54 ENTRY DATE: NOV 13, 2024@08:26:56 AUTHOR: HONORIO FERNANDES EXP COSIGNER: URGENCY: STATUS: COMPLETED Patient is taking the losartan-and the atorvastatin- Carvediolol-did not have any of this in the home-so has not taken since discharge- Aspirin-currently still taking the 325-did not have the 81 mg in the home- Will need the carvediolol-if he is to take and the aspirin 81 mg sent out locally so it can be placed in his mediplanners if he is to cont. He has not been taking the following due to be stopped at D/C from [facility]- Amlodipine and diltiazem SA [facility] RN will see patient next week-to prefill meds- /indra FERNANDES RN Signed: 11/13/2024 08:37 Receipt Acknowledged By: 11/13/2024 08:41 /marlon/ Bobbi Blackwell, Pharm.D. Clinical Pharmacist - [facility] 11/13/2024 15:51 /es/ LYSSA CARTER APRN ADVANCED PRACTICE REGISTERED NURSE, [facility] --- Original Document --- 11/08/24 [facility] PHARMACY NOTE: PMH: 1. Malnutrition 2. Gastro-esophageal reflux disease [...] Osteoarthritis of knee 17. Constipation (SNOMED CT 03723048) 18. Unspecified Housing or Economic Circumstance 19. Other Nonspecific Abnormal Finding of Lung Field 20. Gross Hematuria 21. 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 Hyperlipidemia (SNOMED CT 48016314) 23. Diverticular Disease and polyp (per colonoscopy 02-22. Path: hyperplastic) 24. Chronic bronchitis 25. Gastroesophageal reflux disease (SNOMED CT 440582063) (s/p H Pylori treatment 06/16) with hiatal hernia (per UGI 04-20) 26. Osteoarthritis (SNOMED CT 133066536) of thoracic spine with hyperostosis 27. Anxiety disorder (SNOMED CT 985272634) Allergies: LOVASTATIN, BENAZEPRIL VS: SVS - Vital Signs Selected Measurement DT BP TEMP RESP PULSE POx F(C) (L/MIN)(%) 11/06/2024 14:00 110/58 98.2(36.8) 16 54 Immunizations: IM - Immunizations ADMINISTERED Immunization Series Date Facility Reaction Info COVID-19 (MODERNA), MRNA, LNP-S,* 01/12/2024 [facility]* INFLUENZA, HIGH-DOSE, TRIVALENT,* 01/12/2024 [facility]* PNEUMOCOCCAL CONJUGATE PCV20, PO* 03/17/2022 [facility]* TD (ADULT), 5 LF TETANUS TOXOID,* 04/08/2023 [facility]* ZOSTER RECOMBINANT 1 02/18/2021 [facility]* ZOSTER RECOMBINANT 1 02/05/2021 [facility]* Medications: Active and Recently Outpatient Medications (including Supplies): Active Outpatient Medications Status 1) ACETAMINOPHEN 325MG TAB TAKE TWO TABLETS BY MOUTH THREE ACTIVE TIMES A DAY FOR PAIN - DO NOT TAKE MORE THAN 12 TABLETS PER DAY 2) ARTIFICIAL TEARS POLYVINYL ALCOHOL PUT 2 DROPS IN EYE(S) ACTIVE DIRECTED NEEDED Indication: FOR DRY EYES 3) ASCORBIC ACID 250MG TAB TAKE ONE TABLET BY MOUTH ON TUESDAY, ACTIVE TUESDAY, TUESDAY, AND TUESDAY Indication: FOR NUTRITION 4) ASPIRIN 325MG EC TAB TAKE ONE [...] NEEDED FOR PAIN APPLY TO KNEES 10) DILTIAZEM (EQV-TIAZAC) 360MG 24HR CAP TAKE ONE CAPSULE BY ACTIVE MOUTH DAILY FOR BLOOD PRESSURE/HEART - DO NOT DRINK GRAPEFRUIT JUICE WHILE ON THIS DRUG 11) FERROUS SULFATE 324MG EC TAB TAKE ONE TABLET BY MOUTH ON ACTIVE TUESDAY, TUESDAY, TUESDAY, AND TUESDAY Indication: FOR IRON SUPPLEMENT 12) FINASTERIDE 5MG TAB TAKE ONE TABLET BY MOUTH DAILY FOR ACTIVE PROSTATE - HAZARDOUS HANDLING ALERT 13) FLUTICASONE PROP 50MCG 120D NASAL INHL USE 2 SPRAYS IN EACH ACTIVE NOSTRIL AT BEDTIME FOR NASAL ALLERGY 14) MELOXICAM 7.5MG TAB TAKE ONE TABLET BY MOUTH DAILY -TAKE ACTIVE WITH FOOD OR MILK Indication: FOR PAIN OR INFLAMMATION 15) MENTHOL/M-SALICYLATE 16-30% TOP CREAM APPLY TO AFFECTED AREA ACTIVE THREE TIMES A DAY NEEDED FOR LOCAL PAIN. APPLY TO KNEES 16) NUTRITION SUPL ENSURE PLUS/VANILLA LIQ TAKE 1 CAN BY MOUTH ACTIVE THREE TIMES A DAY Indication: FOR NUTRITION 17) OMEPRAZOLE 20MG EC CAP TAKE TWO CAPSULES BY MOUTH TWICE A ACTIVE DAY FOR STOMACH. TAKE ON AN EMPTY STOMACH 30 MINUTES BEFORE A MEAL 18) PSYLLIUM ORAL PWD MIX 1 TEASPOONFUL (5ML) IN 8 OZ GLASS OF ACTIVE WATER AND TAKE BY MOUTH DAILY FOR CONSTIPATION 19) ROSUVASTATIN CA 10MG TAB TAKE ONE-HALF TABLET BY MOUTH AT ACTIVE BEDTIME FOR CHOLESTEROL 20) SENNOSIDES 8.6MG TAB TAKE THREE TABLETS BY MOUTH DAILY FOR ACTIVE CONSTIPATION 21) TAMSULOSIN HCL 0.4MG CAP TAKE TWO CAPSULES BY MOUTH EVERY ACTIVE EVENING FOR PROSTATE 22) UNDERPAD,BED [id number] TRANQUILITY-2710 USE UNDERPAD ACTIVE DIRECTED NEEDED Inactive Outpatient Medications Status 1) AMLODIPINE BESYLATE 5MG TAB TAKE ONE TABLET BY MOUTH DAILY FOR BLOOD PRESSURE/HEART - DO NOT DRINK GRAPEFRUIT JUICE WHILE ON THIS DRUG 2) BRIEF,TRANQ MARYBETH OVERNITE M#2447 PULLUP USE 1 BRIEF DIRECTED THREE TIMES A DAY FOR INCONTINENCE Active Non-VA Medications Status 1) Non-VA MENTHOL 2% GEL,TOP SMALL AMOUNT AFFECTED AREA DAILY ACTIVE NEEDED 2) Non-VA QUNOL CAP/TAB 1 CAP/TAB MOUTH DAILY ACTIVE Indication: supplement Labs: [facility] 10/28/24 WBC 4.81 3.40 - 10.80 10*3/mm3 RBC 5.42 4.14 - 5.80 10*6/mm3 Hemoglobin 14.9 13.0 - 17.7 g/dL Hematocrit 43.1 37.5 - 51.0 % MCV 79.5 79.0 - 97.0 fL MCH 27.5 26.6 - 33.0 pg MCHC 34.6 31.5 - 35.7 g/dL RDW 15.1 12.3 - 15.4 % RDW-SD 43.6 37.0 - 54.0 fl MPV 10.9 6.0 - 12.0 fL Platelets 168 140 - 450 10*3/mm3 Glucose 85 65 - 99 mg/dL BUN 21.0 8.0 - 23.0 mg/dL Creatinine 1.10 0.76 - 1.27 mg/dL Sodium 140 136 - 145 mmol/L Potassium 4.0 3.5 - 5.2 mmol/L Chloride 104 98 - 107 mmol/L CO2 24.0 22.0 - 29.0 mmol/L Calcium 9.2 8.6 - 10.5 mg/dL BUN/Creatinine Ratio 19.1 7.0 - 25.0 Anion Gap 12.0 5.0 - 15.0 mmol/L eGFR 64.2 >60.0 mL/min/1.73 Lactate 1.3 0.5 - 2.0 mmol/L Hemoglobin A1C 5.33 4.80 - 5.60 % Total Cholesterol 138 0 - 200 mg/dL Triglycerides 42 0 - 150 mg/dL HDL Cholesterol 56 40 - 60 mg/dL LDL Cholesterol 72 0 - 100 mg/dL VLDL Cholesterol 10 5 - 40 mg/dL LDL/HDL Ratio 1.31 TSH: ____ B-12/FOLATE: Collection DT Specimen Test [...] 30.0 ng/mL 20.0 - 50.0 Estimated CrCl: 44 ml/min (ABW and Scr) Lipid Goal: moderate-dose statin (TIA) - met BP Goal: <150/90 - met Medication Outcomes VA meds: APAP 650mg TID: pain AMLODIPINE BESYLATE 5MG TAB DAILY: HTN (exp) Artificial tears 1 gtt OU QID PRN: dry eyes ASCORBIC ACID 250MG TAB M/W/F W/ IRON: ANEMIA ASA EC 325mg daily: TIA *81mg* atorvastatin (LIPITOR) 40 MG tablet HS (new) Ladarius/Vitamin D 500/200mg daily: supplement carvedilol (COREG) 6.25 MG BID: A.fib/HTN/HF (new, not taking) Cetirizine 5mg daily: AR DICLOFENAC NA 1% TOP GEL Q6 HOURS NEEDED FOR KNEE PAIN Diltiazem SA 360mg daily: HTN FERROUS SULFATE 324MG EC TAB M/W/F W/ ASCORBIC ACID: ANEMIA Finasteride 5mg daily: BPH Fluticasone NS 2 sprays IEN HS: allergies losartan (COZAAR) 25 MG daily: HTN/HF (new) MELOXICAM 7.5MG TAB DAILY FOR PAIN OR INFLAMMATION Menthol/m-salicylate cream UD: OA pain/knees NUTRITION SUPL ENSURE PLUS/VANILLA LIQ TID: NUTRITION Omeprazole EC 40mg BID: GERD Psyllium pwdr 5ml in water daily: constipation Rosuvastatin 5mg QHS: HLD Sennosides 8.6mg 3 tabs daily: constipation Tamsulosin 0.8mg qPM: BPH NonVA meds: Menthol 2% gel sm amt AA daily prn: knee pain Qunol Advanced [place] 3 krill and Fish Oil Complex daily: [...] New therapies/medication changes since last Pharmacy review: *Date Presenting to the Facility: Sep Hospital: [facility] Chief complaint: CONSTIPATION Discharged FROM ED *Date Presenting to the Facility: Oct Hospital: [facility] Chief complaint: POSSIBLE CVA Transfer to other [facility] Higher level of care Facility Name: [facility] *Date Presenting to the Facility: Oct Hospital: [facility] Confirm Level of Care: Acute Inpatient Care Assessment Persistent AF - previously discussed with daughter possibility of AC, she preferred aspirin alone. If he does go to rehab with closer supervision would strongly consider AC - rates controlled with carvedilol HFmrEF - GDMT: carvedilol - asymptomatic, euvolemic [facility] clinical summary meds tamsulosin (FLOMAX) 0.4 MG capsule 24 hr capsule Take 2 capsules by mouth Daily. carvedilol (COREG) 6.25 MG tablet Take 1 tablet by mouth 2 (Two) Times a Day finasteride (PROSCAR) 5 MG tablet Take 1 tablet by mouth Daily. omeprazole (priLOSEC) 40 MG capsule Take 1 capsule by mouth 2 (Two) Times a Day. aspirin 81 MG chewable tablet Chew 1 tablet Daily atorvastatin (LIPITOR) 40 MG tablet Take 1 tablet by mouth Every Night losartan (COZAAR) 25 MG tablet Take 1 tablet by mouth Daily. STOP amLODIPine (NORVASC) 5 MG tablet aspirin 325 MG tablet Diclofenac Sodium (VOLTAREN) 1 % gel gel dilTIAZem CD (CARDIZEM CD) 180 MG 24 hr capsule potassium chloride (MICRO-K) 10 MEQ CR capsule rosuvastatin (CRESTOR) 10 MG tablet bisacodyl (DULCOLAX) 5 MG EC tablet amoxicillin-clavulanate (AUGMENTIN) 875-125 MG per tablet levoFLOXacin (LEVAQUIN) 750 MG tablet polyethylene glycol (MIRALAX) 17 g powder senna (SENOKOT) 8.6 MG tablet Plan/recommendations: 1. Problem list: recommend to add A.fib and CHF. 2. Immunizations: up to date. 3. Med rec: APAP 650mg TID: pain - OK to resume/continue AMLODIPINE BESYLATE 5MG TAB DAILY: HTN (exp) - rec to d/c Artificial tears 1 gtt OU QID PRN: dry eyes - OK to resume ASCORBIC ACID 250MG TAB M/W/ W/ IRON: ANEMIA - rec to d/c ASA EC 325mg daily: TIA *81mg* - rec decrease to 81mg atorvastatin (LIPITOR) 40 MG tablet HS (new) - resume rosuva Ladarius/Vitamin D 500/200mg daily: supplement - OK to resume carvedilol (COREG) 6.25 MG BID: A.fib/HTN/HF (new, not taking) - evaluate appropriateness of start, BP and HR were low at RN visit and pt not yet taking. If pt was taking diltiazem and amlodipine, could d/c these and start carvedilol Cetirizine 5mg daily: AR - OK to resume or trial off DICLOFENAC NA 1% TOP GEL Q6 HOURS NEEDED FOR KNEE PAIN - OK to resume Diltiazem SA 360mg daily: HTN (EXP) - d/c? FERROUS SULFATE 324MG EC TAB M// W/ ASCORBIC ACID: ANEMIA - rec to d/c Finasteride 5mg daily: BPH - cont Fluticasone NS 2 sprays IEN HS: allergies - OK to resume losartan (COZAAR) 25 MG daily: HTN/HF (new) - rec to continue MELOXICAM 7.5MG TAB DAILY FOR PAIN OR INFLAMMATION - rec to d/c d/t HF Menthol/m-salicylate cream UD: OA pain/knees - OK to resume NUTRITION SUPL ENSURE PLUS/VANILLA LIQ TID: NUTRITION - resume Omeprazole EC 40mg BID: GERD - cont Psyllium pwdr 5ml in water daily: constipation - ok to resume Rosuvastatin 5mg QHS: HLD - OK to resume Sennosides 8.6mg 3 tabs daily: constipation - OK to resume Tamsulosin 0.8mg qPM: BPH - cont NonVA meds: Menthol 2% gel sm amt AA daily prn: knee pain - OK to resume Qunol Advanced Sterling 3 krill and Fish Oil Complex daily: supplement 3. A.fib: CHADS-VASc 6, HAS-BLED 5; anticoagulation is recommended to prevent stroke and systemic thromboembolism. Pt's adjusted annual risk of stroke with no therapy is 9.7%. Recommend apixaban 5mg BID to reduce annual risk to 2.5% and d/c ASA. CG has previously declined anticoagulation and prefers to continue ASA. Pt should continue a medication for rate control. 3. HF: Amlodipine and diltiazem SA were dc'd at [facility]. Carvedilol and losartan were started for HF. BP and HR were low at RN recheck. Seems pt is taking losartan but is not yet taking carvedilol. If pt is currently taking his VA BP meds, these could be d/c'd and carvedilol added, possibly at decreased dose. Metoprolol SA could be given instead for less effect on BP. Recommend to d/c meloxicam d/t HF. 4. Lipids: Pt was changed from rosuvastatin to atorvastatin while inpt, possibly due to local formulary. OK to continue atorvastatin or change back to rosuvastatin. 5. Anemia: HGB>14 per [facility] labs above. Recommend to d/c iron/vit C (could also be contributing to constipation). 6. Labs: recommend recheck of panel 1 d/t new ARB. medications for review: amlodipine (rec to remain off) Medications were reviewed by Pharm.D. for therapeutic indications as well as appropriate dosing for renal function when current labs available and not enrolled in hospice care. Continue to review quarterly. Time Spent Reviewing Chart: 40 min PBM PharmD Pharmacotherapy Rem V12: Medication monitoring or diagnostic evaluation (e.g., other labs, EKG) Medication reconciliation (changes to active VA and non-VA medication lists to reconcile differences) Changes to medication lists made Discontinue or remove medication Add or renew medication /es/ Pharm. StevenD. Clinical Pharmacist - [facility] Signed: 11/08/2024 10:19 Receipt Acknowledged By: 11/08/2024 15:59 /es/ HONORIO FERNANDES RN 11/08/2024 14:25 /es/ LYSSA CARTER APRN ADVANCED PRACTICE REGISTERED NURSE, [facility] 11/13/2024 ADDENDUM STATUS: COMPLETED - dc'd amlodipine and diltiazem SA, not taking - defer to Provider re: adding carvedilol, BP and HR low last check and Rx for losartan - OK to cont atorvastatin or resume rosuvastatin - agree with decrease of ASA to 81mg daily /marlon/ Bobbi Blackwell, Pharm.D. Clinical Pharmacist - [facility] Signed: 11/13/2024 08:44 Receipt Acknowledged By: 11/13/2024 15:23 /marlon/ LYSSA CARTER APRN ADVANCED PRACTICE REGISTERED NURSE, [facility] 11/13/2024 ADDENDUM STATUS: COMPLETED summary of changes: d/c amlodipine, carvedilol, ferrous sulfate, vitamin C, asa 325 continue losartan, renew rosuvastatin, start asa 81 mg. /marlon/ LYSSA CARTER APRN ADVANCED PRACTICE REGISTERED NURSE, [facility] Signed: 11/13/2024 15:30 HONORIO FERNANDES-[facility] Nov 08, 2024 09:09 AM PHARMACY HOME [facility] NOTE: LOCAL TITLE: [facility] PHARMACY NOTE STANDARD TITLE: PHARMACY [facility] NOTE DATE OF NOTE: NOV 08, 2024@09:09 ENTRY DATE: NOV 08, 2024@09:09:50 AUTHOR: BOBBI BLACKWELL EXP COSIGNER: URGENCY: STATUS: COMPLETED [facility] PHARMACY NOTE Has ADDENDA PMH: 1. Malnutrition 2. Gastro-esophageal reflux disease [...] Osteoarthritis of knee 17. Constipation (SNOMED CT 30310617) 18. Unspecified Housing or Economic Circumstance 19. Other Nonspecific Abnormal Finding of Lung Field 20. Gross Hematuria 21. 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 Hyperlipidemia (SNOMED CT 86108676) 23. Diverticular Disease and polyp (per colonoscopy 02-22. Path: hyperplastic) 24. Chronic bronchitis 25. Gastroesophageal reflux disease (SNOMED CT 622878930) (s/p H Pylori treatment 06/16) with hiatal hernia (per UGI 04-20) 26. 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 Anxiety disorder (SNOMED CT 155691335) Allergies: LOVASTATIN, BENAZEPRIL VS: SVS - Vital Signs Selected Measurement DT BP TEMP RESP PULSE POx F(C) (L/MIN)(%) 11/06/2024 14:00 110/58 98.2(36.8) 16 54 Immunizations: IM - Immunizations ADMINISTERED Immunization Series Date Facility Reaction Info COVID-19 (MODERNA), MRNA, LNP-S,* 01/12/2024 [facility]* INFLUENZA, HIGH-DOSE, TRIVALENT,* 01/12/2024 [facility]* PNEUMOCOCCAL CONJUGATE PCV20, PO* 03/17/2022 [facility]* TD (ADULT), 5 LF TETANUS TOXOID,* 04/08/2023 [facility]* ZOSTER RECOMBINANT 1 02/18/2021 [facility]* ZOSTER RECOMBINANT 1 02/05/2021 [facility]* Medications: Active and Recently Outpatient Medications (including Supplies): Active Outpatient Medications Status 1) ACETAMINOPHEN 325MG TAB TAKE TWO TABLETS BY MOUTH THREE ACTIVE TIMES A DAY FOR PAIN - DO NOT TAKE MORE THAN 12 TABLETS PER DAY 2) ARTIFICIAL TEARS POLYVINYL ALCOHOL PUT 2 DROPS IN EYE(S) ACTIVE DIRECTED NEEDED Indication: FOR DRY EYES 3) ASCORBIC ACID 250MG TAB TAKE ONE TABLET BY MOUTH ON TUESDAY, ACTIVE TUESDAY, TUESDAY, AND TUESDAY Indication: FOR NUTRITION 4) ASPIRIN 325MG EC TAB TAKE ONE TABLET BY MOUTH DAILY FOR ACTIVE HEART 5) BRIEF,TRANQ [place] [place] L#6 PULLUP USE 1 BRIEF ACTIVE DIRECTED THREE TIMES A DAY 6) BRIEF,TRANQ [place] S#2113 PULLUP USE 1 BRIEF ACTIVE DIRECTED THREE [...] NEEDED FOR PAIN APPLY TO KNEES 10) DILTIAZEM (EQV-TIAZAC) 360MG 24HR CAP TAKE ONE CAPSULE BY ACTIVE MOUTH DAILY FOR BLOOD PRESSURE/HEART - DO NOT DRINK GRAPEFRUIT JUICE WHILE ON THIS DRUG 11) FERROUS SULFATE 324MG EC TAB TAKE ONE TABLET BY MOUTH ON ACTIVE TUESDAY, TUESDAY, TUESDAY, AND TUESDAY Indication: FOR IRON SUPPLEMENT 12) FINASTERIDE 5MG TAB TAKE ONE TABLET BY MOUTH DAILY FOR ACTIVE PROSTATE - HAZARDOUS HANDLING ALERT 13) FLUTICASONE PROP 50MCG 120D NASAL INHL USE 2 SPRAYS IN EACH ACTIVE NOSTRIL AT BEDTIME FOR NASAL ALLERGY 14) MELOXICAM 7.5MG TAB TAKE ONE TABLET BY MOUTH DAILY -TAKE ACTIVE WITH FOOD OR MILK Indication: FOR PAIN OR INFLAMMATION 15) MENTHOL/M-SALICYLATE 16-30% TOP CREAM APPLY TO AFFECTED AREA ACTIVE THREE TIMES A DAY NEEDED FOR LOCAL PAIN. APPLY TO KNEES 16) NUTRITION SUPL ENSURE PLUS/VANILLA LIQ TAKE 1 CAN BY MOUTH ACTIVE THREE TIMES A DAY Indication: FOR NUTRITION 17) OMEPRAZOLE 20MG EC CAP TAKE TWO CAPSULES BY MOUTH TWICE A ACTIVE DAY FOR STOMACH. TAKE ON AN EMPTY STOMACH 30 MINUTES BEFORE A MEAL 18) PSYLLIUM ORAL PWD MIX 1 TEASPOONFUL (5ML) IN 8 OZ GLASS OF ACTIVE WATER AND TAKE BY MOUTH DAILY FOR CONSTIPATION 19) ROSUVASTATIN CA 10MG TAB TAKE ONE-HALF TABLET BY MOUTH AT ACTIVE BEDTIME FOR CHOLESTEROL 20) SENNOSIDES 8.6MG TAB TAKE THREE TABLETS BY MOUTH DAILY FOR ACTIVE CONSTIPATION 21) TAMSULOSIN HCL 0.4MG CAP TAKE TWO CAPSULES BY MOUTH EVERY ACTIVE EVENING FOR PROSTATE 22) UNDERPAD,BED [id number] TRANQUILITY-2710 USE UNDERPAD ACTIVE DIRECTED NEEDED Inactive Outpatient Medications Status 1) AMLODIPINE BESYLATE 5MG TAB TAKE ONE TABLET BY MOUTH DAILY FOR BLOOD PRESSURE/HEART - DO NOT DRINK GRAPEFRUIT JUICE WHILE ON THIS DRUG 2) BRIEF,TRANQ MARYBETH [place] M#7061 PULLUP USE 1 BRIEF DIRECTED THREE TIMES A DAY FOR INCONTINENCE Active Non-VA Medications Status 1) Non-VA MENTHOL 2% GEL,TOP SMALL AMOUNT AFFECTED AREA DAILY ACTIVE NEEDED 2) Non-VA QUNOL CAP/TAB 1 CAP/TAB MOUTH DAILY ACTIVE Indication: supplement Labs: Mandaen chuck 10/28/24 WBC 4.81 3.40 - 10.80 10*3/mm3 RBC 5.42 4.14 - 5.80 10*6/mm3 Hemoglobin 14.9 13.0 - 17.7 g/dL Hematocrit 43.1 37.5 - 51.0 % MCV 79.5 79.0 - 97.0 fL MCH 27.5 26.6 - 33.0 pg MCHC 34.6 31.5 - 35.7 g/dL RDW 15.1 12.3 - 15.4 % RDW-SD 43.6 37.0 - 54.0 fl MPV 10.9 6.0 - 12.0 fL Platelets 168 140 - 450 10*3/mm3 Glucose 85 65 - 99 mg/dL BUN 21.0 8.0 - 23.0 mg/dL Creatinine 1.10 0.76 - 1.27 mg/dL Sodium 140 136 - 145 mmol/L Potassium 4.0 3.5 - 5.2 mmol/L Chloride 104 98 - 107 mmol/L CO2 24.0 22.0 - 29.0 mmol/L Calcium 9.2 8.6 - 10.5 mg/dL BUN/Creatinine Ratio 19.1 7.0 - 25.0 Anion Gap 12.0 5.0 - 15.0 mmol/L eGFR 64.2 >60.0 mL/min/1.73 Lactate 1.3 0.5 - 2.0 mmol/L Hemoglobin A1C 5.33 4.80 - 5.60 % Total Cholesterol 138 0 - 200 mg/dL Triglycerides 42 0 - 150 mg/dL HDL Cholesterol 56 40 - 60 mg/dL LDL Cholesterol 72 0 - 100 mg/dL VLDL Cholesterol 10 5 - 40 mg/dL LDL/HDL Ratio 1.31 TSH: ____ B-12/FOLATE: Collection DT Specimen Test [...] 30.0 ng/mL 20.0 - 50.0 Estimated CrCl: 44 ml/min (ABW and Scr) Lipid Goal: moderate-dose statin (TIA) - met BP Goal: <150/90 - met Medication Outcomes VA meds: APAP 650mg TID: pain AMLODIPINE BESYLATE 5MG TAB DAILY: HTN (exp) Artificial tears 1 gtt OU QID PRN: dry eyes ASCORBIC ACID 250MG TAB M/W/F W/ IRON: ANEMIA ASA EC 325mg daily: TIA *81mg* atorvastatin (LIPITOR) 40 MG tablet HS (new) Ladarius/Vitamin D 500/200mg daily: supplement carvedilol (COREG) 6.25 MG BID: A.fib/HTN/HF (new, not taking) Cetirizine 5mg daily: AR DICLOFENAC NA 1% TOP GEL Q6 HOURS NEEDED FOR KNEE PAIN Diltiazem SA 360mg daily: HTN FERROUS SULFATE 324MG EC TAB M/W/F W/ ASCORBIC ACID: ANEMIA Finasteride 5mg daily: BPH Fluticasone NS 2 sprays IEN HS: allergies losartan (COZAAR) 25 MG daily: HTN/HF (new) MELOXICAM 7.5MG TAB DAILY FOR PAIN OR INFLAMMATION Menthol/m-salicylate cream UD: OA pain/knees NUTRITION SUPL ENSURE PLUS/VANILLA LIQ TID: NUTRITION Omeprazole EC 40mg BID: GERD Psyllium pwdr 5ml in water daily: constipation Rosuvastatin 5mg QHS: HLD Sennosides 8.6mg 3 tabs daily: constipation Tamsulosin 0.8mg qPM: BPH NonVA meds: Menthol 2% gel sm amt AA daily prn: knee pain Qunol Advanced Sterling 3 krill and Fish Oil Complex daily: [...] New therapies/medication changes since last Pharmacy review: *Date Presenting to the Facility: Sep Hospital: [facility] Chief complaint: CONSTIPATION Discharged FROM ED *Date Presenting to the Facility: Oct Hospital: [facility] Chief complaint: POSSIBLE CVA Transfer to other [facility] Facility Higher level of care Facility Name: [facility] *Date Presenting to the Facility: Oct Hospital: [facility] Confirm Level of Care: Acute Inpatient Care Assessment Persistent AF - previously discussed with daughter possibility of AC, she preferred aspirin alone. If he does go to rehab with closer supervision would strongly consider AC - rates controlled with carvedilol HFmrEF - GDMT: carvedilol - asymptomatic, euvolemic [facility] clinical summary meds tamsulosin (FLOMAX) 0.4 MG capsule 24 hr capsule Take 2 capsules by mouth Daily. carvedilol (COREG) 6.25 MG tablet Take 1 tablet by mouth 2 (Two) Times a Day finasteride (PROSCAR) 5 MG tablet Take 1 tablet by mouth Daily. omeprazole (priLOSEC) 40 MG capsule Take 1 capsule by mouth 2 (Two) Times a Day. aspirin 81 MG chewable tablet Chew 1 tablet Daily atorvastatin (LIPITOR) 40 MG tablet Take 1 tablet by mouth Every Night losartan (COZAAR) 25 MG tablet Take 1 tablet by mouth Daily. STOP amLODIPine (NORVASC) 5 MG tablet aspirin 325 MG tablet Diclofenac Sodium (VOLTAREN) 1 % gel gel dilTIAZem CD (CARDIZEM CD) 180 MG 24 hr capsule potassium chloride (MICRO-K) 10 MEQ CR capsule rosuvastatin (CRESTOR) 10 MG tablet bisacodyl (DULCOLAX) 5 MG EC tablet amoxicillin-clavulanate (AUGMENTIN) 875-125 MG per tablet levoFLOXacin (LEVAQUIN) 750 MG tablet polyethylene glycol (MIRALAX) 17 g powder senna (SENOKOT) 8.6 MG tablet Plan/recommendations: 1. Problem list: recommend to add A.fib and CHF. 2. Immunizations: up to date. 3. Med rec: APAP 650mg TID: pain - OK to resume/continue AMLODIPINE BESYLATE 5MG TAB DAILY: HTN (exp) - rec to d/c Artificial tears 1 gtt OU QID PRN: dry eyes - OK to resume ASCORBIC ACID 250MG TAB M/W/F W/ IRON: ANEMIA - rec to d/c ASA EC 325mg daily: TIA *81mg* - rec decrease to 81mg atorvastatin (LIPITOR) 40 MG tablet HS (new) - resume rosuva Ladarius/Vitamin D 500/200mg daily: supplement - OK to resume carvedilol (COREG) 6.25 MG BID: A.fib/HTN/HF (new, not taking) - evaluate appropriateness of start, BP and HR were low at RN visit and pt not yet taking. If pt was taking diltiazem and amlodipine, could d/c these and start carvedilol Cetirizine 5mg daily: AR - OK to resume or trial off DICLOFENAC NA 1% TOP GEL Q6 HOURS NEEDED FOR KNEE PAIN - OK to resume Diltiazem SA 360mg daily: HTN (EXP) - d/c? FERROUS SULFATE 324MG EC TAB M/W/ W/ ASCORBIC ACID: ANEMIA - rec to d/c Finasteride 5mg daily: BPH - cont Fluticasone NS 2 sprays IEN HS: allergies - OK to resume losartan (COZAAR) 25 MG daily: HTN/HF (new) - rec to continue MELOXICAM 7.5MG TAB DAILY FOR PAIN OR INFLAMMATION - rec to d/c d/t HF Menthol/m-salicylate cream UD: OA pain/knees - OK to resume NUTRITION SUPL ENSURE PLUS/VANILLA LIQ TID: NUTRITION - resume Omeprazole EC 40mg BID: GERD - cont Psyllium pwdr 5ml in water daily: constipation - ok to resume Rosuvastatin 5mg QHS: HLD - OK to resume Sennosides 8.6mg 3 tabs daily: constipation - OK to resume Tamsulosin 0.8mg qPM: BPH - cont NonVA meds: Menthol 2% gel sm amt AA daily prn: knee pain - OK to resume Qunol Advanced [place] 3 krill and Fish Oil Complex daily: supplement 3. A.fib: CHADS-VASc 6, HAS-BLED 5; anticoagulation is recommended to prevent stroke and systemic thromboembolism. Pt's adjusted annual risk of stroke with no therapy is 9.7%. Recommend apixaban 5mg BID to reduce annual risk to 2.5% and d/c ASA. CG has previously declined anticoagulation and prefers to continue ASA. Pt should continue a medication for rate control. 3. HF: Amlodipine and diltiazem SA were dc'd at [facility]. Carvedilol and losartan were started for HF. BP and HR were low at RN recheck. Seems pt is taking losartan but is not yet taking carvedilol. If pt is currently taking his VA BP meds, these could be d/c'd and carvedilol added, possibly at decreased dose. Metoprolol SA could be given instead for less effect on BP. Recommend to d/c meloxicam d/t HF. 4. Lipids: Pt was changed from rosuvastatin to atorvastatin while inpt, possibly due to local formulary. OK to continue atorvastatin or change back to rosuvastatin. 5. Anemia: HGB>14 per [facility] labs above. Recommend to d/c iron/vit C (could also be contributing to constipation). 6. Labs: recommend recheck of panel 1 d/t new ARB. medications for review: amlodipine (rec to remain off) Medications were reviewed by Pharm.D. for therapeutic indications as well as appropriate dosing for renal function when current labs available and not enrolled in hospice care. Continue to review quarterly. Time Spent Reviewing Chart: 40 min PBM PharmD Pharmacotherapy Rem V12: Medication monitoring or diagnostic evaluation (e.g., other labs, EKG) Medication reconciliation (changes to active VA and non-VA medication lists to reconcile differences) Changes to medication lists made Discontinue or remove medication Add or renew medication /es/ Bobbi L Rosalva, Pharm.D. Clinical Pharmacist - [facility] Signed: 11/08/2024 10:19 Receipt Acknowledged By: 11/08/2024 15:59 /es/ HONORIO FERNANDES RN 11/08/2024 14:25 /marlon/ LYSSA CARTER APRN ADVANCED PRACTICE REGISTERED NURSE, [facility] 11/13/2024 ADDENDUM STATUS: COMPLETED Patient is taking the losartan-and the atorvastatin- Carvediolol-did not have any of this in the home-so has not taken since discharge- Aspirin-currently still taking the 325-did not have the 81 mg in the home- Will need the carvediolol-if he is to take and the aspirin 81 mg sent out locally so it can be placed in his mediplanners if he is to cont. He has not been taking the following due to be stopped at D/C from [facility]- Amlodipine and diltiazem SA [facility] RN will see patient next week-to prefill meds- /marlon/ HONORIO FERNANDES RN Signed: 11/13/2024 08:37 Receipt Acknowledged By: 11/13/2024 08:41 /marlon/ Bobbi Blackwell, Pharm.D. Clinical Pharmacist - [facility] * AWAITING SIGNATURE * LYSSA CARTER 11/13/2024 ADDENDUM STATUS: COMPLETED - dc'd amlodipine and diltiazem SA, not taking - defer to Provider re: adding carvedilol, BP and HR low last check and Rx for losartan - OK to cont atorvastatin or resume rosuvastatin - agree with decrease of ASA to 81mg daily /marlon/ Bobbi Blackwell PharmKayleneDKaylene Clinical Pharmacist - [facility] Signed: 11/13/2024 08:44 Receipt Acknowledged By: 11/13/2024 15:23 /marlon/ LYSSA CARTER APRN ADVANCED PRACTICE REGISTERED NURSE, [facility] 11/13/2024 ADDENDUM STATUS: COMPLETED summary of changes: d/c amlodipine, carvedilol, ferrous sulfate, vitamin C, asa 325 continue losartan, renew rosuvastatin, start asa 81 mg. /marlon/ LYSSA CARTER APRN ADVANCED PRACTICE REGISTERED NURSE, [facility] Signed: 11/13/2024 15:30 BOBBI BLACKWELL-CDD [facility]
--- OUTSIDE RECORDS SUMMARY | 2024-11-14 06:15 | XMS_ITS ---
Author Name [facility] [place] Organization [facility] [place] [place] Address [address] [place] [address] Care Team Providers Care Larry Car Operator Name Role Phone LYSSA CARTER Primary [...] PART A Jul 17, 2000 PART A [id number] [phone] [id number] JESSICA ALVAREZ PATIENT MEDICARE (WNR) MEDICARE (M) PART B Jul 17, 2000 PART B [id number] [phone] [id number] JESSICA ALVAREZ PATIENT MEDICARE (WNR) MEDICARE (M) PART A Jul 17, 2000 PART A [id number] [phone] [id number] JESSICA ALVAREZ PATIENT MEDICARE (WNR) MEDICARE (M) PART B Jul 17, 2000 PART B [id number] JESSICA ALVAREZ PATIENT Selected Encounter This section includes the information on record at [place] for the Encounter. Date/Time Encounter Type Encounter Description Reason Provider Source Nov 14, 2024 10:15 AM [facility]/HOSPICE OF RN EA 15 MIN [facility] Nursing (RN / LP) ICD-10-CM G31.84 Mild cognitive impairment of uncertain or unknown etiology HONORIO FERNANDES Bryce [facility] Encounter Template Text not used by [place] Assessments - Encounter Diagnoses This section includes the primary and secondary diagnoses documented for the Encounter. Date/Time Primary/Secondary Diagnosis Diagnosis Name Provider Source Nov 14, 2024 03:37 PM PRIMARY Mild cognitive impairment of uncertain or unknown etiology HONORIO FERNANDES [facility] Plan of Treatment: Future Appointments (+ 6 months) and Future Tests (+/- 45 days) The Plan of Treatment section includes future care [facility] for the [facility] This section includes future appointments and [...] 20, 2024 02:07 PM AMBULATORY - MEDICINE [facility] Lab Results: +/- 30 days of [...] Type Comment Nov 20, 2024 05:25 PM [facility] URINALYSIS WITH REFLEX TO CULTURE URINE Speci men Type: URINE Comment: ~Urinary frequency, urgency or dysuria Microscopic not indicated Ordering Provider: SARA TABARES Report Released Date/Time: Nov 20, 2024 05:21 PM Reporting Lab: [address] [id number] Performing Lab: [address] [address] URINE COLOR Light Yellow Colorless-Yello w APPEARANCE [...] 18, 2023 11:45 AM [place]-TOBACCO NEVER USED [facility] Tobacco Use History This section includes a history of the smoking, or tobacco-related health factors, that were collected on or before the date of the Encounter. The data comes from the [place] facility where the Encounter took place. Date/Time Smoking Status/Tobacco Use Comment F acility Oct 21, 2022 09:58 AM [place]-TOBACCO NEVER USED [facility] Jul 23, 2021 11:35 AM [place]-TOBACCO NEVER USED [facility] Nov 01, 2001 10:14 AM HF V9 CURRENT NON-SMOKER [facility] Sep 19, 2000 11:13 AM HF V9 CURRENT NON-SMOKER quit 1982 [facility] Advance Directives: All historical and [...] 02, 2021 ADVANCE DIRECTIVE DISCUSSION VANE DAWKINS [facility] Feb 13, 2020 ADVANCE DIRECTIVE DISCUSSION VANE DAWKINS [facility] Encounter Notes: All associated encounter notes This section contains the clinical notes associated to the Encounter. Date/Time Encounter Note(s) Provider Source Nov 14, 2024 03:35 PM NURSING NOTE: LOCAL TITLE: [facility] FOCUSED NURSING NOTE STANDARD TITLE: NURSING NOTE DATE OF NOTE: NOV 14, 2024@15:35 ENTRY DATE: NOV 14, 2024@15:35:45 AUTHOR: FERNANDES,HONORIO F EXP COSIGNER: URGENCY: STATUS: COMPLETED Length of home visit: 30 min Patient name: JESSICA ALVAREZ Patient : Jul Date/Time of Visit: Vital Signs: Wt: WEIGHT: No values within 24 hours BP: BLOOD PRESSURE: Measurement DT BP 11/14/2024 09:15 118/66 Pulse: PULSE: Measurement DT PULSE 11/14/2024 09:15 62 Pulse Ox: Resp: RESPIRATIONS: Measurement DT RESP 11/14/2024 09:15 16 Pain: PAIN SCORE: Measurement DT PAIN 11/14/2024 09:15 0 Temp: 98.5 F [36.9 C] (11/14/2024 09:15) Reason for visit: To do mediplanners- Do you have any pain now? No Falls: Assist Devices: rollator/cane Have you fallen since the last [facility] nurse visit? No If yes, date of [...] DIRECTED NEEDED Indication: FOR DRY EYES 3) ASPIRIN 81MG EC TAB TAKE ONE TABLET BY MOUTH DAILY ACTIVE Indication: FOR HEART 4) BRIEF,TRANQ MARY[facility] L#2116 PULLUP USE 1 BRIEF ACTIVE DIRECTED THREE TIMES A DAY 5) BRIEF,TRANQ MARYB[facility] S#2114 PULLUP USE 1 BRIEF ACTIVE DIRECTED THREE TIMES A DAY 6) CALCIUM 500MG/VITAMIN D 200 UNT TAB TAKE 1 TABLET BY MOUTH ACTIVE DAILY FOR NUTRITION 7) CETIRIZINE HCL 10MG TAB TAKE ONE-HALF TABLET BY MOUTH DAILY ACTIVE Indication: FOR ALLERGIES 8) DICLOFENAC NA 1% TOP GEL APPLY 2 GRAM STRIP TO AFFECTED AREA ACTIVE EVERY 6 HOURS NEEDED FOR PAIN APPLY TO KNEES 9) FINASTERIDE 5MG TAB TAKE ONE TABLET BY MOUTH DAILY FOR ACTIVE (S) PROSTATE - HAZARDOUS HANDLING ALERT 10) FLUTICASONE PROP 50MCG 120D NASAL INHL USE 2 SPRAYS IN EACH ACTIVE NOSTRIL AT BEDTIME FOR NASAL ALLERGY 11) LOSARTAN 25MG TAB TAKE ONE TABLET BY MOUTH DAILY ACTIVE (S) Indication: FOR BLOOD PRESSURE 12) MELOXICAM 7.5MG TAB TAKE ONE TABLET [...] STOMACH 30 MINUTES BEFORE A MEAL 16) PSYLLIUM ORAL PWD MIX 1 TEASPOONFUL (5ML) IN 8 OZ GLASS OF ACTIVE WATER AND TAKE BY MOUTH DAILY FOR CONSTIPATION 17) ROSUVASTATIN CA 10MG TAB TAKE ONE-HALF TABLET BY MOUTH AT ACTIVE BEDTIME FOR CHOLESTEROL 18) SENNOSIDES 8.6MG TAB TAKE THREE TABLETS BY MOUTH DAILY FOR ACTIVE CONSTIPATION 19) TAMSULOSIN HCL 0.4MG CAP TAKE TWO CAPSULES BY MOUTH EVERY ACTIVE EVENING FOR PROSTATE 20) UNDERPAD,BED [id number] TRANQUILITY-2710 USE UNDERPAD ACTIVE DIRECTED NEEDED Inactive Outpatient Medications Status 1) BRIEF,TRANQ [facility] M#3607 PULLUP USE 1 BRIEF DIRECTED THREE TIMES A DAY FOR INCONTINENCE Active Non-VA Medications Status 1) Non-VA MENTHOL 2% GEL,TOP SMALL AMOUNT AFFECTED AREA DAILY ACTIVE NEEDED 2) Non-VA QUNOL CAP/TAB 1 CAP/TAB MOUTH DAILY ACTIVE Indication: supplement 23 Total Medications Are you taking any new medication (non-VA, over the counter, herbal medications) since the last [facility] visit? No /es/ HONORIO FERNANDES RN Signed: 11/14/2024 15:37 HONORIO FERNANDES-[facility]
--- OUTSIDE RECORDS SUMMARY | 2024-11-16 11:23 | XMS_ITS | Encounter Summary ---
Author Name [facility] [place] Organization [facility] [place] [place] Address [address] [place] [address] Care Team Providers Care Team Foreman Name Role Phone LYSSA CARTER Primary Care [...] PART A Jul 17, 2000 PART A [id number] JESSICA ALVAREZ PATIENT MEDICARE (WNR) MEDICARE (M) PART B Jul 17, 2000 PART B [id number] JESSICA ALVAREZ PATIENT MEDICARE (WNR) MEDICARE (M) PART A Jul 17, 2000 PART A [id number] JESSICA ALVAREZ PATIENT MEDICARE (WNR) MEDICARE (M) PART B Jul 17, 2000 PART B [id number] JESSICA ALVAREZ PATIENT Selected Encounter This section includes the information on record at [place] for the Encounter. Date/Time Encounter Type Encounter Description Reason Pro vider Source Nov 16, 2024 03:23 PM Outpatient Encounter ADMIN PAT ACTIVTIES (GLENISNONCT) IHE Encounter Template Text not used by [place] Plan of Treatment: Future Appointments (+ 6 months) and Future Tests (+/- 45 days) The Plan of Treatment section includes future care activities for the patient from all [place] treatmentfacilities. This section includes future appointments and future orders which are active, pending or scheduled. Future Appointments This section includes appointments that were scheduled to occur 6 months from the date of the Encounter, up to a maximum of 20 appointments. The data comes from all [place] treatment facilities. Appointment Date/Time Appointment Type Appointme nt Facility Name Nov 20, 2024 02:07 PM AMBULATORY - MEDICINE [facility] Lab Results: +/- 30 days of the encounter This section includes the Chemistry and Hematology Lab Results on record with [place] for the patient. Radiology Reports and Pathology Reports are provided separately, in subsequent sections. Lab Results This section contains the Chemistry/Hematology Results that were resulted 30 days before or 30 daysafter the date of the Encounter. Date/Time Source Result Type Result - Unit Interpretation Reference Range Specimen Type Comment Nov 20, 2024 05:25 PM [facility] URINALYSIS WITH REFLEX TO CULTURE URINE Speci men Type: URINE Comment: ~Urinary frequency, urgency or dysuria Microscopic not indicated Ordering Provider: SARA TABARES Report Released Date/Time: Nov 20, 2024 05:21 PM Reporting Lab: [address] [id number] Performing Lab: [address] [address] URINE COLOR Light Yellow Colorless-Yello w APPEARANCE [...] and tobacco- related health factors from the [place] facility where the Encounter took place. Current Smoking Status This section includes the most current smoking, or tobacco-related health factor, from the [place] facility where the Encounter took place. Date/Time Current Smoking Status Comment Cheo ity Oct 18, 2023 11:45 AM [place]-TOBACCO NEVER USED [facility] Tobacco Use History This section includes a history of the smoking, or tobacco-related health factors, that were collected on or before the date of the Encounter. The data comes from the [place] facility where the Encounter took place. Date/Time Smoking Status/Tobacco Use Comment F acility Oct 21, 2022 09:58 AM [place]-TOBACCO NEVER USED [facility] Jul 23, 2021 11:35 AM [place]-TOBACCO NEVER USED [facility] Nov 01, 2001 10:14 AM HF V9 CURRENT NON-SMOKER [facility] Sep 19, 2000 11:13 AM HF V9 CURRENT NON-SMOKER quit 1982 [facility] Advance Directives: All historical and current Section Date Range: From patient's date of to the date document was created. This section includes ALL of a patient's completed or amended [place] Advance and Rescinded Directives. The entries below indicate that a directive exists for the patient, but an actual copy is not included with this document. The data comes from all [place] facilities. Date Advance Directives Provider Source Feb 02, 2021 ADVANCE DIRECTIVE DISCUSSION VANE DAWKINS [facility] Feb 13, 2020 ADVANCE DIRECTIVE DISCUSSION VANE DAWKINS [facility] Encounter Notes: All associated encounter notes This section contains the clinical notes associated to the Encounter. Date/Time Encounter Note(s) Provider Source Nov 02, 2024 03:23 PM NONVA NOTE: LOCAL TITLE: OUTSIDE MEDICAL RECORD-OTHER STANDARD TITLE: NONVA NOTE DATE OF NOTE: NOV 02, 2024@15:23 ENTRY DATE: NOV 16, 2024@15:23:42 AUTHOR: TREVIN HARMON EXP COSIGNER: URGENCY: STATUS: COMPLETED The scanned document may be viewed in [employer]. /marlon/ TREVIN HARMON [employer] Signed: 11/16/2024 15:23 TREVIN HARMON [facility]
--- OUTSIDE RECORDS SUMMARY | 2024-11-20 10:07 | XMS_ITS | Encounter Summary ---
Author Name [facility] [place] [facility] [place] Address [address] [place] [address] Care Team Providers Care Asphalt Paver Name Role Phone EMMA LYSSA Primary Care Provider Unavailab le Insurance Providers: [...] PART A Jul 17, 2000 PART A [id number] JESSICA ALVAREZ PATIENT MEDICARE (WNR) MEDICARE (M) PART B Jul 17, 2000 PART B [id number] JESSICA ALVAREZ PATIENT MEDICARE (WNR) MEDICARE (M) PART A Jul 17, 2000 PART A [id number] JESSICA ALVAREZ PATIENT MEDICARE (WNR) MEDICARE (M) PART B Jul 17, 2000 PART B [id number] JESSICA ALVAREZ PATIENT Selected Encounter This section includes the information on record at [place] for the Encounter. Date/Time Encounter Type Encounter Description Reason Provider Source Nov 20, 2024 02:07 PM EMERGENCY DEPT VISIT MOD MDM EMERGENCY DEPT ICD-10-CM R33.9 Retention of urine, unspecified SARA TABARES IHE Encounter Template Text not used by [place] Assessments - Encounter Diagnoses This section includes the primary and secondary diagnoses documented for the Encounter. Date/Time Primary/Secondary Diagnosis Diagnosis Name Provider Source Nov 20, 2024 07:20 PM PRIMARY Retention of urine, unspecified SARA TABARES [facility] Lab Results: +/- 30 days of the encounter This section includes the Chemistry and Hematology Lab Results on record with [place] for the patient. Radiology Reports and Pathology Reports are provided separately, in subsequent sections. Lab Results This section contains the Chemistry/Hematology Results that were resulted 30 days before or 30 daysafter the date of the Encounter. Date/Time Source Result Type Result - Unit Interpretation Reference Range Specimen Type Comment Nov 20, 2024 05:25 PM [facility] URINALYSIS WITH REFLEX TO CULTURE URINE Speci men Type: URINE Comment: ~Urinary frequency, urgency or dysuria Microscopic not indicated Ordering Provider: SARA TABARES Report Released Date/Time: Nov 20, 2024 05:21 PM Reporting Lab: [address] [id number] Performing Lab: [address] [id number] URINE COLOR Light Yellow Colorless-Yello w APPEARANCE Clear Clear UROBILINOGEN Normal mg/dL Normal URINE BLOOD Negative Negative URINE BILIRUBIN Negative Negative URINE KETONES Negative mg/dL Negative URINE PROTEIN Negative mg/dL Negative-Tr tanvir URINE PH 6.5 4.5-8.0 URINE NITRITE Negative Negative URINE LEUKOCYTE EST Negative Negative SPECIFIC GRAVITY 1.008 1.005-1.030 URINE GLUCOSE Negative mg/dL Negative Vital Signs: All taken on the encounter date This section contains inpatient and outpatient Vital Signs collected on the date of the Encounter. Date/Time Temperature Pulse Blood Pressure Respiratory Rate SP02 Pain Height Weight Body Mass Index Source Nov 20, 2024 06:40 PM 97.9 F 75 /min 123/75 mm[Hg] 98 % [facility] ON-D [facility] Nov 20, 2024 04:25 PM 76 /min 128/76 mm[Hg] [facility] Nov 20, 2024 03:20 PM 76 /min 132/76 mm[Hg] 87 % [place] [facility] Nov 20, 2024 02:19 PM 98.8 F 92 /min 167/104 mm[Hg] 12 /min 4 [place] [facility] Social History: Smoking Status (Most current) and Tobacco Use (All prior to encounter date) This section includes the most current, and the historical, smoking and tobacco- related health factors from the [place] facility where the Encounter took place. Current Smoking Status This section includes the most current smoking, or tobacco-related health factor, from the [place] facility where the Encounter took place. Date/Time Current Smoking Status Comment Facil ity Oct 18, 2023 11:45 AM [place]-TOBAC[place] NEVER USED [facility] Tobacco Use History This section includes a history of the smoking, or tobacco-related health factors, that were collected on or before the date of the Encounter. The data comes from the [place] facility where the Encounter took place. Date/Time Smoking Status/Tobacco Use Comment F acility Oct 21, 2022 09:58 AM [place]TOBAC[place] NEVER US[place] [facility] Jul 23, 2021 11:35 AM [place]TOBAC[place] US[place] [facility] Nov 01, 2001 10:14 AM HF V9 CURRENT NON-SMOKER [facility] Sep 19, 2000 11:13 AM HF V9 CURRENT NON-SMOKER quit 1982 [facility] Advance Directives: All historical and current Section Date Range: From patient's date of to the date document was created. This section includes ALL of a patient's completed or amended [place] Advance and Rescinded Directives. The entries below indicate that a directive exists for the patient, but an actual copy is not included with this document. The data comes from all [place] facilities. Date Advance Directives Provider Source Feb 02, 2021 ADVANCE DIRECTIVE DISCUSSION VANE DAWKINS [facility] Feb 13, 2020 ADVANCE DIRECTIVE DIS[facility] Encounter Notes: All associated encounter notes This section contains the clinical notes associated to the Encounter. Date/Time Encounter Note(s) Provider Source Nov 21, 2024 07:56 AM ADDENDUM: LOCAL TITLE: Addendum STANDARD TITLE: ADDENDUM DATE OF NOTE: NOV 21, 2024@07:56:29 ENTRY DATE: NOV 21, 2024@07:56:30 AUTHOR: VANE FRANCIS EXP COSIGNER: URGENCY: STATUS: COMPLETED alerting Cm/provider of d/c /es/ Vane Francis, ASSOCIATE PROFESSOR OF PSYCHOLOGY [facility] graphic design professor Signed: 11/21/2024 07:56 Receipt Acknowledged By: 11/21/2024 08:00 /es/ HONORIO FERNANDES RN 11/22/2024 10:55 /es/ AVILA ELKINS RN Dry Cleaning Manager Nurse Rocket Engine Mechanic 11/21/2024 08:31 /es/ LYSSA CARTER APRN ADVANCED PRACTICE REGISTERED NURSE, [facility] --- Original Document --- 11/20/24 ED 10-10M PT DISCHARGE/ADMIT INSTRUCTIONS: Diagnosis today: Retention of urine New Medications today: none MEDICATION HISTORY: [facility] Pres[facility] Medications: Active Outpatient Medications (including Supplies): Active Outpatient Medications [...] TABLET BY MOUTH DAILY ACTIVE Indication: FOR BLOOD PRESSURE 12) MELOXICAM 7.5MG [...] EVERY ACTIVE EVENING FOR PROSTATE 20) UNDERPAD,BED [id number] TRANQUILITY-2710 USE UNDERPAD ACTIVE DIRECTED NEEDED Active Non-VA Medications Status 1) Non-VA MENTHOL 2% GEL,TOP SMALL AMOUNT AFFECTED AREA DAILY ACTIVE NEEDED 2) Non-VA QUNOL CAP/TAB 1 CAP/TAB MOUTH DAILY ACTIVE Indication: supplement 22 Total Medications Explained to the patient and/or significant other the importance of keeping providers updated on medication changes and to carry an updated list of medication at all times in case of an emergency situation. Nursing Provider: ed Physical Activity limitations: None Dietary Limitations/Discharge Dietary Instructions: None Return to the Emergency Department or your nearest Emergency Department if your condition worsens. Special Instructions: Leave castaneda cath in Patient or significant other verbalizes understanding of instructions given? Yes Patient wristband was removed and destroyed in a shred box. ED Daily Plan given and discussed with patient? Yes Type of Discharge: Regular If you have any questions please contact our Telephone Care Program [phone] locally or Toll Free at After hours [place] Advice Nurse [phone] locally or Toll Free at The [facility] Crisis Line is (TALK) To hear your scheduled appointments or to renew your prescriptions by phone call [phone] locally or Toll Free at /marlon/ SARA TABARES PHYSICIAN FILE MACHINE OPERATOR Signed: 11/20/2024 18:45 11/21/2024 ADDENDUM STATUS: COMPLETED alerting RN /marlon/ LYSSA CARTER APRN ADVANCED PRACTICE REGISTERED NURSE, [facility] Signed: 11/21/2024 07:54 Receipt Acknowledged By: 11/21/2024 08:00 /VANE Hess RN-D [facility] Nov 21, 2024 07:53 AM ADDENDUM: LOCAL TITLE: Addendum STANDARD TITLE: ADDENDUM DATE OF NOTE: NOV 21, 2024@07:53:53 ENTRY DATE: NOV 21, 2024@07:53:54 AUTHOR: LYSSA CARTER EXP COSIGNER: URGENCY: STATUS: COMPLETED alerting AVILA BECKETT /marlon/ LYSSA CARTER APRN ADVANCED PRACTICE REGISTERED NURSE, [facility] Signed: 11/21/2024 07:54 Receipt Acknowledged By: 11/21/2024 08:00 /indra FERNANDES RN --- Original Document --- 11/20/24 ED 10-10M PT DISCHARGE/ADMIT INSTRUCTIONS: Diagnosis today: Retention of urine New Medications today: none MEDICATION HISTORY: [place] Prescribed Medications: Active Outpatient Medications (including Supplies): Active Outpatient Medications [...] TABLET BY MOUTH DAILY ACTIVE Indication: FOR BLOOD PRESSURE 12) MELOXICAM 7.5MG [...] EVERY ACTIVE EVENING FOR PROSTATE 20) UNDERPAD,BED [id number] TRANQUILITY-0 USE UNDERPAD ACTIVE DIRECTED NEEDED Active Non-VA Medications Status 1) Non-VA MENTHOL 2% GEL,TOP SMALL AMOUNT AFFECTED AREA DAILY ACTIVE NEEDED 2) Non-VA QUNOL CAP/TAB 1 CAP/TAB MOUTH DAILY ACTIVE Indication: supplement 22 Total Medications Explained to the patient and/or significant other the importance of keeping providers updated on medication changes and to carry an updated list of medication at all times in case of an emergency situation. Nursing Provider: ed Physical Activity limitations: None Dietary Limitations/Discharge Dietary Instructions: None Return to the Emergency Department or your nearest Emergency Department if your condition worsens. Special Instructions: Leave castaneda cath in Patient or significant other verbalizes understanding of instructions given? Yes Patient wristband was removed and destroyed in a shred box. ED Daily Plan given and discussed with patient? Yes Type of Discharge: Regular If you have any questions please contact our Telephone Care Program [phone] locally or Toll Free at After hours [place] Advice Nurse [phone] locally or Toll Free at [facility] is (TALK) To hear your scheduled appointments or to renew your prescriptions by phone call [phone] locally or Toll Free at /marlon/ SARA TABARES PHYSICIAN FILE MACHINE OPERATOR Signed: 11/20/2024 18:45 11/21/2024 ADDENDUM STATUS: COMPLETED alerting Cm/provider of d/c /marlon/ Vane Francis ASSOCIATE PROFESSOR OF PSYCHOLOGY [facility] graphic design professor Signed: 11/21/2024 07:56 Receipt Acknowledged By: 11/21/2024 08:00 /es/ HONORIO FERNANDES RN * AWAITING SIGNATURE * PATRICE JETT * AWAITING SIGNATURE * LYSSA CARTER [place] [facility] Nov 20, 2024 06:44 PM EMERGENCY DEPT NOTE: LOCAL TITLE: ED 10-10M PT DISCHARGE/ADMIT INSTRUCTIONS STANDARD TITLE: EMERGENCY DEPT NOTE DATE OF NOTE: NOV 20, 2024@18:44 ENTRY DATE: NOV 20, 2024@18:44:42 AUTHOR: SARA TABARES EXP COSIGNER: URGENCY: STATUS: COMPLETED ED 10-10M PT DISCHARGE/ADMIT INSTRUCTIONS Has ADDENDA Diagnosis today: Retention of urine New Medications today: none MEDICATION HISTORY: [place] Prescribed Medications: Active Outpatient Medications (including Supplies): Active Outpatient Medications [...] Indication: FOR HEART 4) BRIEF,TRANQ MARYBETH OVERNITE L#6 PULLUP USE 1 BRIEF ACTIVE DIRECTED THREE TIMES A DAY 5) BRIEF,TRANQ MARYBETH OVERNITE S#4 PULLUP USE 1 [...] TABLET BY MOUTH DAILY ACTIVE Indication: FOR BLOOD PRESSURE 12) MELOXICAM 7.5MG [...] EVERY ACTIVE EVENING FOR PROSTATE 20) UNDERPAD,BED [id number] TRANQUILITY-2710 USE UNDERPAD ACTIVE DIRECTED NEEDED Active Non-VA Medications Status 1) Non-VA MENTHOL 2% GEL,TOP SMALL AMOUNT AFFECTED AREA DAILY ACTIVE NEEDED 2) Non-VA QUNOL CAP/TAB 1 CAP/TAB MOUTH DAILY ACTIVE Indication: supplement 22 Total Medications Explained to the patient and/or significant other the importance of keeping providers updated on medication changes and to carry an updated list of medication at all times in case of an emergency situation. Nursing Provider: ed Physical Activity limitations: None Dietary Limitations/Discharge Dietary Instructions: None Return to the Emergency Department or your nearest Emergency Department if your condition worsens. Special Instructions: Leave castaneda cath in Patient or significant other verbalizes understanding of instructions given? Yes Patient wristband was removed and destroyed in a shred box. ED Daily Plan given and discussed with patient? Yes Type of Discharge: Regular If you have any questions please contact our Telephone Care Program [phone] locally or Toll Free at After hours [place] Advice Nurse [phone] locally or Toll Free at The [facility] Crisis Line is (TALK) To hear your scheduled appointments or to renew your prescriptions by phone call [phone] locally or Toll Free at /marlon/ SARA TABARES PHYSICIAN FILE MACHINE OPERATOR Signed: 11/20/2024 18:45 11/21/2024 ADDENDUM STATUS: COMPLETED alerting RN CM. /es/ YLSSA CARTER APRN ADVANCED PRACTICE REGISTERED NURSE, ANDRÉ[facility] Signed: 11/21/2024 07:54 Receipt Acknowledged By: 11/21/2024 08:00 /indra FERNANDES RN 11/21/2024 ADDENDUM STATUS: COMPLETED alerting Cm/provider of d/c /es/ Vane Francis ASSOCIATE PROFESSOR OF PSYCHOLOGY ANDR[facility] graphic design professor Signed: 11/21/2024 07:56 Receipt Acknowledged By: 11/21/2024 08:00 /indra FERNANDES RN * AWAITING SIGNATURE * PATRICE JETT S * AWAITING SIGNATURE * LYSSA CARTER [facility] [place] Nov 20, 2024 05:21 PM EMERGENCY DEPT NOTE: LOCAL TITLE: ED PHYSICIAN/DERRICK WORKER/PA NOTE STANDARD TITLE: EMERGENCY DEPT NOTE DATE OF NOTE: NOV 20, 2024@17:21 ENTRY DATE: NOV 20, 2024@17:21:38 AUTHOR: SARA TABARES EXP COSIGNER: URGENCY: STATUS: COMPLETED TIME SEEN: 0 CHIEF COMPLAINT: retention of urine HISTORIAN: [X] Patient [ ] Spouse [ ] Son [ ] Daughter [ ] Senior Care [ ] EMS [ ] Other: HPI: 89; BLACK OR , WHITE; MALE pt with difficulty voiding for last few days and suprapubic pain. He denies any f/c no n/v/d. ROS: [ ] Unable to fully assess due to: CONSTITUTIONAL: Fever [ ]Y [ ]N Chills [ ]Y [ ]N Fatigue [ ]Y [ ]N Sweats [ ]Y [ ]N Other: SKIN: Rash [ ]Y [ ]N Bruising [ ]Y [ ]N Other: EYES: Diplopia [ ]Y [ ]N Change in vision [ ]Y [ ]N Other: ENT: Vertigo [ ]Y [ ]N Rhinorrhea [ ]Y [ ]N Sore throat [ ]Y [ ]N Other: RESPIRATORY: Cough [ ]Y [ ]N Short of breath [ ]Y [ ]N Hemoptysis [ ]Y [ ]N Other: CARDIAC: Chest pain [ ]Y [ ]N Palpitations [ ]Y [ ]N Pedal edema [ ]Y [ ]N Other: GASTROINTESTINAL: Nausea [ ]Y [ ]N Vomiting [ ]Y [ ]N Diarrhea [ ]Y [ ]N Abdominal Pain [ ]Y [ ]N Other: GENITOURINARY: Dysuria [ ]Y [ ]N Hematuria [ ]Y [ ]N Frequency [ ]Y [ ]N Other: MUSCULOSKELETAL: Arthralgias [ ]Y [ ]N Myalgias [ ]Y [ ]N Back pain [ ]Y [ ]N Other: ENDOCRINE: Heat/cold intol [ ]Y [ ]N Weight gain/loss [ ]Y [ ]N Other: NEUROLOGIC: Headache [ ]Y [ ]N Dizziness [ ]Y [ ]N Focal weakness [ ]Y [ ]N Incontinence [ ]Y [ ]N Confusion [ ]Y [ ]N Speech difficulty[ ]Y [ ]N Other: PSYCHIATRY: Depression [ ]Y [ ]N SI/HI [ ]Y [ ]N Other: PAST MEDICAL HX: Active problems - Computerized Problem List is the source for the followin. CHF - Congestive Heart Failure ([facility] [id number]) 2. Atrial fibrillation 3. Dysphagia s/p dililtation 4. Malnutrition 5. Gastroesophageal reflux disease without esophagitis 6. Chronic orthostatic hypotension 7. Pain of bilateral knee joints 8. Dry eye syndrome 9. Mild cognitive impairment 10. Chronic bronchitis 11. TIA - Transient ischaemic attack 12. Osteopenia 13. Chronic kidney disease stage 3B 14. Benign prostatic hyperplasia 15. Hearing loss 16. Hypertension 17. Gastroesophageal reflux disease 18. Allergic rhinitis 19. Osteoarthritis of knee 20. Constipation (SNOMED CT 99556160) 21. Unspecified Housing or Economic Circumstance 22. Other Nonspecific Abnormal Finding of Lung Field 23. Gross Hematuria 24. 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 Hyperlipidemia (SNOMED CT 72323919) 26. Diverticular Disease and polyp (per colonoscopy 02-22. Path: hyperplastic) 27. Chronic bronchitis 28. Gastroesophageal reflux disease (SNOMED CT 206586254) (s/p H Pylori treatment 06/16) with hiatal hernia (per UGI 04-20) 29. 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 Anxiety disorder (SNOMED CT 844703973) ALLERGIES: LOVASTATIN, BENAZEPRIL MEDICATION: Active Outpatient Medications (including Supplies): ACETAMINOPHEN 325MG TAB TAKE TWO TABLETS BY MOUTH THREE ACTIVE TIMES A DAY FOR PAIN - DO NOT TAKE MORE THAN 12 TABLETS PER DAY ARTIFICIAL TEARS POLYVINYL ALCOHOL PUT 2 DROPS IN EYE(S) ACTIVE DIRECTED NEEDED Indication: FOR DRY EYES ASPIRIN 81MG EC TAB TAKE ONE TABLET BY MOUTH DAILY ACTIVE Indication: FOR HEART BRIEF,TRANQ MARYBETH OVERNITE L#2116 PULLUP USE [...] HOURS NEEDED FOR PAIN APPLY TO KNEES FINASTERIDE 5MG TAB TAKE ONE TABLET BY MOUTH DAILY FOR ACTIVE (S) PROSTATE - HAZARDOUS HANDLING ALERT FLUTICASONE PROP 50MCG 120D NASAL INHL USE 2 SPRAYS IN ACTIVE EACH NOSTRIL AT BEDTIME FOR NASAL ALLERGY LOSARTAN 25MG TAB TAKE ONE TABLET BY MOUTH DAILY ACTIVE Indication: FOR BLOOD PRESSURE MELOXICAM 7.5MG TAB TAKE ONE TABLET BY [...] MOUTH EVERY ACTIVE EVENING FOR PROSTATE UNDERPAD,BED [id number] TRANQUILITY-2710 USE UNDERPAD ACTIVE DIRECTED NEEDED Non-VA MENTHOL 2% GEL,TOP SMALL AMOUNT AFFECTED AREA DAILY ACTIVE NEEDED Non-VA QUNOL CAP/TAB 1 CAP/TAB MOUTH DAILY ACTIVE Indication: supplement 22 Total Medications PERTINENT SURGERY/PROCEDURE: PERTINENT FAMILY HISTORY: PERTINENT SOCIAL HISTORY: PHYSICAL EXAM: VITALS: TEMP: Measurement DT TEMP F(C) 11/20/2024 14:19 98.8(37.1) BLOOD PRESSURE: Measurement DT BP 11/20/2024 14:19 167/104 PULSE: Measurement DT PULSE 11/20/2024 14:19 92 RESPIRATIONS: Measurement DT RESP 11/20/2024 14:19 12 PULSE OX: No data available WEIGHT: No values within 24 hours CONSTITUTIONAL: [x] Reviewed today's triage vital signs [x] WD/WN [ ] Obese [x] NAD [ ] Other: EYES: [ ] Lids and conjunctival normal [ ] PERRLA [ ] Other: ENT: [ ] TM/canal normal [ ] External ear/nose normal [ ] Oropharynx pink/clear [ ] Other: NECK: [x] Supple [ ] No JVD [ ] Thyroid normal [ ] Other: CARDIOVASCULAR: [x] RRR w/o murmur [x] No pedal edema [ ] Pedal pulses normal [ ] Other: RESPIRATORY: [x] Clear to auscultation [x] BS equal [ ] Normal respiratory effort [ ] Palpation of chest nontender [ ] Other: GASTROINTESTINAL: [x] Soft [x] Nontender [ ] No peritoneal signs [ ] Normal BS [ ] No Hepatosplenomegaly [ ] Other: [ ] Rectal exam: GENITOURINARY: [ ] Other: LYMPHATIC: [ ] No cervical adenopathy [ ] No axillary adenopathy [ ] No inguinal adenopathy [ ] Other: MUSCULOSKELETAL: [ ] Normal range of motion all extremities [ ] No clubbing/cyanosis [ ] Spine nontender [ ] Gait normal [ ] Other: SKIN: [ ] Warm and dry [ ] No rash [ ] Palpation normal [ ] Other: NEUROLOGIC: [ ] Coordination normal [ ] Good strength all extremities [ ] Cranial nerves 2-12 intact [ ] Deep tendon reflexes equal bilaterally [ ] Sensation grossly normal [ ] Other: PSYCHIATRIC: [ ] Alert and oriented x3 [ ] Mood/affect normal [ ] Judgment/insight normal [ ] Recent and remote memory normal [ ] Other: LABS: [ ] Independent interpretation of labs EKG: [ ] Independent interpretation of EKG CXR: [ ] Independent interpretation of x-rays OTHER IMAGING: [ ] Independent interpretation of radiology studies ED COURSE/MEDICAL DECISION MAKING: [ ] Outside records reviewed [x] I have reviewed relevant medical records, laboratory reports and radiology studies [x] My findings and treatment plan were discussed with the patient and/or significant other DIFFERENTIAL DIAGNOSIS: MEDICAL DECISION MAKING: pt stable non toxic, h/o bph and retention suprapubic pain, castaneda cath CONSULTED/DISCUSSED WITH: TIME: [ ] CRITICAL CARE TIME: [ ] PROCEDURES (see separate procedure note): ASSESSMENT/IMPRESSION: PLAN: DISPOSITION TIME: [ ] Home [ ] Admitted [ ] Transferred [ ] [place] [ ] [facility] [ ] [place] [ ] [place] [ ] AMA [ ] Other: FOLLOW UP TIME FRAME: [ ] PC [ ] Specialist: [ ] Other: /marlon/ SARA TABARES PHYSICIAN FILE MACHINE OPERATOR Signed: 11/20/2024 18:56 SARA TABARES-[facility] Nov 20, 2024 04:45 PM EMERGENCY DEPT NOTE: LOCAL TITLE: EMERGENCY DEPT NURSING ASSESSMENT CHILD ID NOTE STANDARD TITLE: EMERGENCY DEPT NOTE DATE OF NOTE: NOV 20, 2024@16:45 ENTRY DATE: NOV 20, 2024@16:49:09 AUTHOR: MIRA RAMIREZ EXP COSIGNER: URGENCY: STATUS: COMPLETED ASSESSMENT: PAIN: Do you have pain now? No Intensity: Severity Scale (0) Location: How long? PAST MEDICAL HISTORY: Active problems - Computerized Problem List is the source for the followin. CHF - Congestive Heart Failure ([facility] [id number]) 2. Atrial fibrillation 3. Dysphagia s/p dililtation 4. Malnutrition 5. Gastroesophageal reflux disease without esophagitis 6. Chronic orthostatic hypotension 7. Pain of bilateral knee joints 8. Dry eye syndrome 9. Mild cognitive impairment 10. Chronic bronchitis 11. TIA - Transient ischaemic attack 12. Osteopenia 13. Chronic kidney disease stage 3B 14. Benign prostatic hyperplasia 15. Hearing loss 16. Hypertension 17. Gastroesophageal reflux disease 18. Allergic rhinitis 19. Osteoarthritis of knee 20. Constipation (SNOMED CT 03557927) 21. Unspecified Housing or Economic Circumstance 22. Other Nonspecific Abnormal Finding of Lung Field 23. Gross Hematuria 24. 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 Hyperlipidemia (SNOMED CT 98686531) 26. Diverticular Disease and polyp (per colonoscopy 02-22. Path: hyperplastic) 27. Chronic bronchitis 28. Gastroesophageal reflux disease (SNOMED CT 937891380) (s/p H Pylori treatment 06/16) with hiatal hernia (per UGI 04-20) 29. Osteoarthritis (SNOMED CT 047526178) of thoracic spine with hyperostosis 30. Anxiety disorder (SNOMED CT 591635177) Transfer Patients If outpatient medication list below is NOT current. See chart/nursing transfer note, provider H&P, or remote data for current list. Medication List Current: YES NON-VA/Herbal Vitamins/Medications: No change in CPRS documentation Medicine/Supplies Qty Last Filled 1) ARTIFICIAL TEARS POLYVINYL ALCOHOL: PUT 2 DROPS IN 45 JUL 06, 2024 EYE(S) DIRECTED NEEDED FOR DRY EYES 2) FINASTERIDE 5MG TAB: TAKE ONE TABLET BY MOUTH 90 JAN 24, 2025 DAILY FOR PROSTATE - HAZARDOUS HANDLING ALERT 3) CETIRIZINE HCL 10MG TAB: TAKE ONE-HALF TABLET BY 45 OCT 12, 2024 MOUTH DAILY FOR ALLERGIES 4) CALCIUM 500MG/VITAMIN D 200 UNT TAB: TAKE 1 TABLET 90 APR 27, 2024 BY MOUTH DAILY FOR NUTRITION 5) MELOXICAM 7.5MG TAB: TAKE ONE TABLET BY MOUTH 90 SEPTEMBER 01, 2024 DAILY FOR PAIN OR INFLAMMATION -TAKE WITH 6) DICLOFENAC NA 1% TOP GEL: APPLY 2 GRAM STRIP TO 200 JUL 07, 2024 AFFECTED AREA EVERY 6 HOURS NEEDED FOR PAIN 7) FLUTICASONE PROP 50MCG 120D NASAL INHL: USE 2 2 JUL 07, 2024 SPRAYS IN EACH NOSTRIL AT BEDTIME FOR NASAL ALLERGY 8) MENTHOL/M-SALICYLATE 16-30% TOP CREAM: APPLY TO 85 SEP 18, 2024 AFFECTED AREA THREE TIMES A DAY NEEDED FOR LOCAL PAIN. 9) BRIEF,TRANQ MARYBETH OVERNITE S#2114 PULLUP: USE 1 160 JUL 24, 2024 BRIEF DIRECTED THREE TIMES A DAY 10) UNDERPAD,BED [id number] TRANQUILITY-2710: USE 40 OCT 12, 2024 UNDERPAD DIRECTED NEEDED 11) NUTRITION SUPL ENSURE PLUS/VANILLA LIQ: TAKE 1 CAN 96 OCT 08, 2024 BY MOUTH THREE TIMES A DAY FOR NUTRITION 12) ROSUVASTATIN CA 10MG TAB: TAKE ONE-HALF TABLET BY 45 NOV 05, 2024 MOUTH AT BEDTIME FOR CHOLESTEROL 13) BRIEF,TRANQ MARYBETH OVERNITE L#2116 PULLUP: USE 1 192 SEPTEMBER 15, 2024 BRIEF DIRECTED THREE TIMES A DAY 14) PSYLLIUM ORAL PWD: MIX 1 TEASPOONFUL (5ML) IN 8 OZ 390 SEP 19, 2024 GLASS OF WATER AND TAKE BY MOUTH DAILY 15) TAMSULOSIN HCL 0.4MG CAP: TAKE TWO CAPSULES BY 60 NOV 13, 2024 MOUTH EVERY EVENING FOR PROSTATE 16) ACETAMINOPHEN 325MG TAB: TAKE TWO TABLETS BY MOUTH 500 OCT 13, 2024 THREE TIMES A DAY FOR PAIN - DO NOT TAKE 17) OMEPRAZOLE 20MG EC CAP: TAKE TWO CAPSULES BY MOUTH 360 OCT 13, 2024 TWICE A DAY FOR STOMACH. TAKE ON AN EMPTY 18) SENNOSIDES 8.6MG TAB: TAKE THREE TABLETS BY MOUTH 300 OCT 13, 2024 DAILY FOR CONSTIPATION 19) ASPIRIN 81MG EC TAB: TAKE ONE TABLET BY MOUTH 90 NOV 14, 2024 DAILY FOR HEART 20) LOSARTAN 25MG TAB: TAKE ONE TABLET BY MOUTH DAILY 90 NOV 14, 2024 FOR BLOOD PRESSURE Active Non-VA Meds = 1) QUNOL 1 CAP/TAB MOUTH DAILY Comments: (OTC) 2) MENTHOL 2% SMALL AMOUNT AFFECTED AREA DAILY NEEDED Comments: for knee pain Reviewed current medications with patient/signficant other, patient/significant other reports patient taking ALL VA, Non VA & OTC medications as listed on CPRS medication tab outpatient section. YES: *Printed copy of medication list provided to patient and reviewed. Yes *Explained to the patient the importance of keeping providers updated on medication changes and to carrying an updated list of medication at all times in case of an emergency situation. Yes ETOH: NO Substance Use: NO LEARNING READINESS: Barriers/Limitations to Learning: Hearing, Physical, Preferred method of learning - Hearing Interested in Learning About Your Health/Care? Yes, but does not identify a specific education need at present What are you interested in learning? With whom would you like us to share this information? Patient only, Other: daughter in lobby FALL RISK: Have you fallen at home in the last 3 months? Yes Unsteady Gait, Uses Assistive Device,i.e. , Cane/Walker FOCUSED ASSESSMENT: NEUROLOGICAL/EYE: Glascow Coma Scale: Eye Opening Response: 4-Spontaneous Motor Response: 6-Obeys Command Verbal Response: 5-Oriented and converses Total EMV=15 PUPILS: Reactive - left, right SPEECH: Normal RESPIRATORY: Non-labored CV/CIRCULATORY: Warm TURGOR: Normal COLOR: Faucett ABDOMINAL/GI/: Bowel Sounds: Present WNL Tender on Palpation - Soft, Non-tender Bowel/Bladder Incontinence patient incont. on arrival to . Unable to Void/Dysuria He states he cannot get the flow going and that he only goes a little at a time. Bladder Distention Castaneda Cath Yes Inserted in ED because of clinical indication, sterile gloves, sterile technique used, castaneda secured INTEGUMENTARY: Intact Medical Devices: Physical evidence of abuse or neglect? No Patient or Other verbally reports current abuse, neglect, or exploitation? No If yes: Provider notified? No If yes: Social service consult? 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 Follows commands, opens eyes spontaneously, and tracks objects. Vital Signs: Temperature 98.8 F (37.1 C) Pulse 92 Respirations 12 Blood Pressure 167/104 Pulse Oximetry 98 Room Air Pain: DVPRS Scale Location: right leg Defense and Veterans Pain Rating Scale (DVPRS): 4 Distracts me, can do usual activities Pain Score: 4 Patient's acceptable pain goal: Suicide Screen: [place] Suicide Severity Rating Scale (C-SSRS) screener 1. Over the past month, have you [...] required due to responses to other questions. Emergency Severity Index (LUIS ENRIQUE) level: Level 3 Previously documented allergies: LOVASTATIN, BENAZEPRIL Current Problems: Active problems - Computerized Problem List is the source for the followin. CHF - Congestive Heart Failure ([facility] 80988590) 2. Atrial fibrillation 3. Dysphagia s/p dililtation 4. Malnutrition 5. Gastroesophageal reflux disease without esophagitis 6. Chronic orthostatic hypotension 7. Pain of bilateral knee joints 8. Dry eye syndrome 9. Mild cognitive impairment 10. Chronic bronchitis 11. TIA - Transient ischaemic attack 12. Osteopenia 13. Chronic kidney disease stage 3B 14. Benign prostatic hyperplasia 15. Hearing loss 16. Hypertension 17. Gastroesophageal reflux disease 18. Allergic rhinitis 19. Osteoarthritis of knee 20. Constipation (SNOMED CT 18911606) 21. Unspecified Housing or Economic Circumstance 22. Other Nonspecific Abnormal Finding of Lung Field 23. Gross Hematuria 24. 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 Hyperlipidemia (SNOMED CT 77115046) 26. Diverticular Disease and polyp (per colonoscopy 02-22. Path: hyperplastic) 27. Chronic bronchitis 28. Gastroesophageal reflux disease (SNOMED CT 705595311) (s/p H Pylori treatment 06/16) with hiatal hernia (per UGI 04-20) 29. 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 Anxiety disorder (SNOMED CT 739896807) /es/ SHARIF ROGERS aircraft maintenance engineer,BSN Signed: 11/20/2024 14:22 11/20/2024 ADDENDUM STATUS: COMPLETED 1635- Patient arrived via W/C to room from triage for evaluation. Patient stated he urianted on himself but he is refusing to change his pants. he states this happens all the time and I do not want to be without pants . patient stated he is having a hard time voiding and when he does it is not very much. I have educated the patient on the need to bladder scan him and he is agreeable. Bladder scan completed greater than 316ml in bladder but unable to get all on the screen per tech who is doing the scan. Kaycee was educated on the need for a cathether and provider agreed. Tech to place castaneda. 1645- Kaycee is agreeable to change his pants. FOCUSED ASSESSMENT: NEURO: alert and oriented x3, speech clear and appropriate GCS score: 15 Eye: 4 spontaneously Verbal: 5 oriented to time, place, and person Motor: 6 obeys commands RESPIRATORY: resp regular and nonlabored, no cough or congestion noted CIRCULATORY: skin pink, warm, and dry GI/: abdomen soft/non-tender, denies nausea, vomiting, or diarrhea, blood in stool, unable to keep flow going and incontinence noted. MUSCULOSKELETAL: No signs of swelling, tenderness or deformities PSYCH: mood & affect appropriate 1653-16F castaneda coude catheter placed per order/policy. Urine returned, bag hanging below level of bladder, secured with device to right thigh. Patient tolerated procedure well. Draining clear yellow urine. awaiting orders to see if urine needs sent. 1715- Urine sent. 1737-Hourly rounding completed. Pt resting comfortalby in bed with no new complaints or concerns. Pt updated on status and verbalized understanding. Call light within reach. No distress noted. Awaiting UA results. Comfort measures offered. Pt encouraged to report any needs or changes to staff. Will continue to monitor patient for any changes or needs. 1845- Provider at bedside discussing plan of care with daughter. 1908-Verbal and written discharge instructions given to patient. Verbalizes understanding. Prescriptions given to patient by this RN from pharmacy. Daughter pusing pt upon discharge. Patient directed towards exit. Armband removed and placed in shred box. /marlon/ MIRA RAMIREZ RN Signed: 11/20/2024 19:08 SHARIF ROGERS-CDD [facility]
--- OUTSIDE RECORDS SUMMARY | 2024-11-21 00:26 | XMS_ITS | Encounter Summary ---
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 Date/Time Encounter Type Encounter Description Reason Provider Source Nov 21, 2024 04:26 AM PH1 ASSMT&MGMT NQHP 5-10 TELEPHONE [facility] ICD-10-CM N40.1 Benign prostatic hyperplasia with lower urinary tract symp HONORIO FERNANDES I[facility] Encounter Template Text not used by [place] Assessments - Encounter Diagnoses This section includes the primary and secondary diagnoses documented for the Encounter. Date/Time Primary/Secondary Diagnosis Diagnosis Name Provider Source Nov 21, 2024 04:26 AM PRIMARY Benign prostatic hyperplasia with lower urinary tract symp HONORIO FERNANDES [facility] Lab Results: +/- 30 days of the encounter This section includes the Chemistry and Hematology Lab Results on record with [place] for the patient. Radiology Reports and Pathology Reports are provided separately, in subsequent sections. Lab Results This section contains the Chemistry/Hematology Results that were resulted 30 days before or 30 daysafter the date of the Encounter. Date/Time Source Result Type Result - Unit Interpretation Reference Range Specimen Type Comment Nov 20, 2024 05:25 PM [facility] URINALYSIS WITH REFLEX TO CULTURE URINE Speci men Type: URINE Comment: ~Urinary frequency, urgency or dysuria Microscopic not indicated Ordering Provider: SARA TABARES Report Released Date/Time: Nov 20, 2024 05:21 PM Reporting Lab: [address] [address] Performing Lab: [address] [address] URINE COLOR Light Yellow Colorless-Yello w APPEARANCE [...] and tobacco- related health factors from the [place] facility where the Encounter took place. Current Smoking Status This section includes the most current smoking, or tobacco-related health factor, from the [place] facility where the Encounter took place. Date/Time Current Smoking Status Comment Cheo stephen Oct 18, 2023 11:45 AM [place]-TOBACCO NEVER USED [facility] Tobacco Use History This section includes a history of the smoking, or tobacco-related health factors, that were collected on or before the date of the Encounter. The data comes from the [place] facility where the Encounter took place. Date/Time Smoking Status/Tobacco Use Comment Bryce bauman Oct 21, 2022 09:58 AM [place]-TOBACCO NEVER USED [facility] Jul 23, 2021 11:35 AM [place]-TOBACCO NEVER USED [facility] Nov 01, 2001 10:14 AM HF V9 CURRENT NON-SMOKER [facility] Sep 19, 2000 11:13 AM HF V9 CURRENT NON-SMOKER quit 1982 [facility] Advance Directives: All historical and current Section Date Range: From patient's date of to the date document was created. This section includes ALL of a patient's completed or amended [place] Advance and Rescinded Directives. The entries below indicate that a directive exists for the patient, but an actual copy is not included with this document. The data comes from all [place] facilities. Date Advance Directives Provider Source Feb 02, 2021 ADVANCE DIRECTIVE DISCUSSION VANE DAWKINS [facility] Feb 13, 2020 ADVANCE DIRECTIVE DISCUSSION VANE DAWKINS [facility] Encounter Notes: All associated encounter notes This section contains the clinical notes associated to the Encounter. Date/Time Encounter Note(s) Provider Source Nov 21, 2024 06:26 PM PRIMARY CARE NOTE: LOCAL TITLE: POST DISCHARGE CONTACT STANDARD TITLE: PRIMARY CARE NOTE DATE OF NOTE: NOV 21, 2024@18:26 ENTRY DATE: NOV 21, 2024@18:26:49 AUTHOR: HONORIO FERNANDES EXP COSIGNER: URGENCY: STATUS: COMPLETED Location of Discharge: Emergency Department/Urgent Care Contact attempt: 1st identified by the following: Full Name Full Social Security Number (SSN) Date of Contact made through telephone call Reason for hospitalization/Emergency Department/Urgent Care visit: Retention of urine- /Caregiver states condition has improved. Symptoms to monitor for health maintenance: trouble with the castaneda- Confirmed no changes made to medications, equipment or supplies. Primary Diagnosis at Discharge: Other Diagnosis: urine retention Follow up Service Referrals: Other: Will refer to home health if castaneda is to remain- Future Appointments: Informed, discussed and confirmed next scheduled appointments educated on care of the castaneda-what to do if no urine is flowing into bab-and how to empty=Latisha caregiver was present and she and patient voiced understanding. Education Provided: Length of time spent: 5 minutes /marlon/ HONORIO FERNANDES RN Signed: 11/21/2024 18:30 Receipt Acknowledged By: 11/22/2024 10:54 /marlon/ PATRICE JETT RN [facility] RN Parking Meter Attendant Nurse Authorizer HONORIO FERNANDES-CDD [facility]
--- OUTSIDE RECORDS SUMMARY | 2024-11-27 04:01 | XMS_ITS ---
Author Name [facility] [place] Address [address] [place] [address] Care Team Providers Care Oyster Floater Name Role Phone LYSSA CARTER Primary Care [...] PART A Jul 17, 2000 PART A [id number] JESSICA BURNHAM PATIENT MEDICARE (WNR) MEDICARE (M) PART B Jul 17, 2000 PART B [id number] JESSICA BURNHAM PATIENT MEDICARE (WNR) MEDICARE (M) PART A Jul 17, 2000 PART A [id number] [id number] JESSICA BURNHAM PATIENT MEDICARE (WNR) MEDICARE (M) PART B Jul 17, 2000 PART B [id number] [phone] [id number] JESSICA BURNHAM PATIENT Selected Encounter This section includes the information on record at [place] for the Encounter. Date/Time Encounter Type Encounter Description Reason Pro vider Source Nov 27, 2024 08:01 AM Outpatient Encounter [facility] (RN / LP) IHE Encounter Template Text not used by [place] Lab Results: +/- 30 days of the [...] Type Comment Nov 20, 2024 05:25 PM [facility] WITH REFLEX TO CULTURE URINE Speci men Type: URINE Comment: ~Urinary frequency, urgency or dysuria Microscopic not indicated Ordering Provider: SARA TABARES Report Released Date/Time: Nov 20, 2024 05:21 PM Reporting Lab: [address] [address] Performing Lab: [address] [address] URINE COLOR Light Yellow Colorless-Yello w APPEARANCE Clear Clear UROBILINOGEN Normal mg/dL Normal URINE BLOOD Negative Negative URINE BILIRUBIN Negative Negative URINE KETONES Negative mg/dL Negative URINE PROTEIN Negative mg/dL Negative-Tr ronal URINE PH 6.5 4.5-8.0 URINE NITRITE Negative [...] Cheo ity Oct 18, 2023 11:45 AM [place]-TOBACCO NEVER USED [facility] Tobacco Use History This section includes a history of the smoking, or tobacco-related health factors, that were collected on or before the date of the Encounter. The data comes from the [place] facility where the Encounter took place. Date/Time Smoking Status/Tobacco Use Comment F acility Oct 21, 2022 09:58 AM VA-TOBACCO NEVER USED [facility] Jul 23, 2021 11:35 AM VA-TOBACCO NEVER USED [facility] Nov 01, 2001 10:14 AM HF V9 CURRENT NON-SMOKER [facility] Sep 19, 2000 11:13 AM HF V9 CURRENT NON-SMOKER quit 1982 [facility] Advance Directives: All historical and [...] 02, 2021 ADVANCE DIRECTIVE DISCUSSION VANE DAWKINS [facility] Feb 13, 2020 ADVANCE DIRECTIVE DISCUSSION VANE DAWKINS [facility] Encounter Notes: All associated encounter notes This section contains the clinical notes associated to the Encounter. Date/Time Encounter Note(s) Provider Source Nov 27, 2024 08:01 AM HOME HEALTH INTERD ISCIPLINARY NOTE: LOCAL TITLE: [facility] INTERDISCIPLINARY PLAN OF CARE STANDARD TITLE: HOME HEALTH INTERDISCIPLINARY NOTE DATE OF NOTE: NOV 27, 2024@08:01 ENTRY DATE: NOV 27, 2024@08:01:33 AUTHOR: HONORIO FERNANDES EXP COSIGNER: LYSSA CARTER URGENCY: STATUS: COMPLETED [facility] INTERDISCIPLINARY PLAN OF CARE Has ADDENDA Home Based Primary Care Interdisciplinary Treatment Plan Admission Date: 01/30/20 Period to cover: 11/27/24-02/24/25 Allergies: LOVASTATIN Diet Recommendation: Regular Activity level: [...] Bathing: assist, performed seated on tub bench Prosthetics/equipment/devices : rollator, Pride Pam scooter, scooter cover, handheld [...] concerns: none Patient safety concerns: 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 RN /RD PROBLEM: MEDICATION ADHERENCE/MANAGEMENT GOALS: Imnaha stated goal I will take my medicines everyday for the next three months Long Term goal discussed with the - Will take [...] medications changed, and as needed. RN Provide Imnaha/caregiver with current medication list and reconcile medications with each visit. RN PROBLEM: Care Management for VA purposes for patients with [facility] Patient's care needs will be coordinated within several agencies Chronic will manage until discharge- TARGET DATE FOR GOAL: Within the next quarter, unless otherwise specified STATUS: has SILVER DESIGNER services through [facility]-patient is very happy- RN INTERVENTIONS: Patient followed by [facility] Agency: this info is found on the consult for home health Agency: [facility] for SILVER DESIGNER/HM program- Monitor services provided by [facility] . RN Monitor for need for any equipment, supplies or specialty services provided by [facility]. RN Coordination of information between the [facility] and [facility] PACT. RN PROBLEM: BPH Long Term goal discussed with the : No urinary infections- chronic will manage until discharge TARGET DATE FOR GOAL: Within the next quarter, unless otherwise specified. STATUS:patient had inpatient stay at outside hospital-treated for uti-one ED visit for urinary reteniton and F/C replaced- RN Interventions: Monitor for alteration in urination - RN Monitor for S/S of UTI - mechanic foreman work as ordered - RN PVR as ordered - RN Monitor hydration & nutrition project architect Educate caregiver and patient on F/C care-RN Encouarge compliance with urology consult/appt-RN PROBLEM: Advance directives/life planning GOAL: Pt will verbalize above concerns and work toward resolution STATUS: met and continued--see providers AD discussions Advance Directive?No Living Will?No Durable Power of Tool Distributor for Health Care? No; Imnaha states that his daughter, Jesus Burnham ([phone]) is HCS/NOK, but does not have documentation. (-[facility]) INTERVENTIONS: Provide education and ongoing review of Advance Directives ? SW Assist patient in completion of new Advance Directive if desired- SW PROBLEM: Long-term Care Planning Goal: or decision maker will make wishes known regarding long-term care plans. Status: Imnaha wishes to remain in home independently as long as able. He is hopeful his daughter would provide additional care if needed but understands that [facility] or other out-of-home placement would be needed if daughter unable to assist. (-[facility]) INTERVENTIONS: Assist Imnaha and caregiver/medical decision maker in discussing life plans in relation to needs and available supports/services. SW Provide options of care and assist with any placement issues. SW HEALTH MAINTENANCE PROBLEM: POTENTIAL FOR FALL AND INJURY GOALS: 1. Imnaha will have #1 no more than one fall per calendar month, #2 no falls with bone fracture, #3 no falls with a brain bleed and #4 no falls resulting in an emergency department visit. DATE FOR GOAL: Within the next 90 days, unless otherwise specified. STATUS: Goal Met. No falls reported this quarter. PT ------- Frequency of [facility] home visits: [facility] home or [facility] visit frequency placed on subsequent care plans: PROVIDER: : Provider visit frequencies will take into consideration the 's goals of care and preferences. will have a comprehensive provider evaluation annually. Additional provider visits will be conducted as clinically indicated and driven by quarterly IDT meetings or by changes that would require provider [id number] visit. RN: Every 4-6 weeks and 3 additional visits as needed in the quarter for medication management, post hospitalization assessment, symptom management, collection of labs and patient/caregiver education. SW: Visits every 4-6 months, sooner if needed, for crisis management, caregiver stress, housing issues, establishment of advance directives, financial issues, VA benefits, counseling, and transportation. PT: Comprehensive in-home environmental and functional assessment every 6-12 months. Up to 3 follow up visits (face to face, [facility], telephone) this quarter as clinically indicated for any of the following: change in functional status or safety, post fall evaluation and education; evaluate equipment needs and educate Imnaha and/or caregiver on safe use. RD: RD [...] oral nutrition supplements. Psychologist: Not currently followed, [facility] Psychology remains available for visits/consultation as needed or upon request of team or Imnaha. Members Present: Gustavo Somers, PT; Casi MCNEAL; Tray Swift PsyD for Donavan Carpenter PsyD; Jana Fernandes RN, Cathryn Carter WIRE WORKER, Rosamaria Oh Nurse Mobile Service Rv Technician, DR Morrow, Bobbi Blackwell Pharm D, Denice Pennington RD, LD Target date for review of plan of care: 02/19/25 /marlon/ HONORIO FERNANDES RN Signed: 11/27/2024 17:08 /es/ LYSSA CARTER APRN ADVANCED PRACTICE REGISTERED NURSE, [facility] Cosigned: 11/28/2024 06:52 Receipt Acknowledged By: 11/28/2024 08:58 /es/ Bobbi Blackwell, Pharm.D. Clinical Pharmacist - [facility] 11/28/2024 09:53 /es/ Denice Pennington RD, LD Clinical Dietitian 11/27/2024 19:49 /es/ TEMITOPE MORROW PHYSICIAN 11/28/2024 15:14 /es/ Rosamaria Oh, MSN, RN, CNL [facility] Physical Therapy Supervisor/Nurse Mobile Service Rv Technician 11/28/2024 08:12 /es/ BESSY SWIFT, PHD Licensed Psychologist 11/27/2024 17:12 /es/ CASI LOUIS 11/28/2024 07:41 /es/ GUSTAVO SOMERS, PT, DPT PHYSICAL THERAPIST, [facility] 11/29/2024 13:35 /es/ RAMESH JAMES 11/27/2024 ADDENDUM STATUS: COMPLETED I have attended this quarterly Interdisciplinary Team Meeting, reviewed the chart including the medication list, and participated in the discussion and supervised the care planning of this patient. - ED visits for TIA, then for Urinary retention. - Refused to complete an AD, but his daughters are surrogates. 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 - Diet - regular, voluntary weight regain though is malnourished. On Ensure. - Mobility - Recommend use walker/rollator, but forgets. Gait training done. Uses scooter outside. - ADL - toileting, continence, bathing. - Essential Hypertension - BP goals met - Urinary Retention - recent ED visit and on Benjamin cath, which he just removed. - Hyperlipidemia - changed to Rosuvastatin, stable. - Atrial Fibrillation with Long-Term Use of Anticoagulants - on ASA low dose. - CHF - Coreg stopped due to low BP, on RONAL now. - Full Code /es/ TEMITOPE MORROW PHYSICIAN Signed: 11/27/2024 19:50 HONORIO FERNANDES-CDD [facility]
--- OUTSIDE RECORDS SUMMARY | 2024-11-27 09:30 | XMS_ITS ---
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 Date/Time Primary/Secondary Diagnosis Diagnosis Name Provider Source Nov 27, 2024 05:18 PM PRIMARY Benign prostatic hyperplasia with lower urinary tract symp HONORIO FERNANDES [facility] Lab Results: +/- 30 days of the encounter This section includes the Chemistry and Hematology Lab Results on record with [place] for the patient. Radiology Reports and Pathology Reports are provided separately, in subsequent sections. Lab Results This section contains the Chemistry/Hematology Results that were resulted 30 days before or 30 daysafter the date of the Encounter. Date/Time Source Result Type Result - Unit Interpretation Reference Range Specimen Type Comment Nov 20, 2024 05:25 PM [facility] URINALYSIS WITH REFLEX TO CULTURE URINE Speci men Type: URINE Comment: ~Urinary frequency, urgency or dysuria Microscopic not indicated Ordering Provider: SARA TABARES Report Released Date/Time: Nov 20, 2024 05:21 PM Reporting Lab: [address] [id number] Performing Lab: [address] [id number] URINE COLOR Light Yellow Colorless-Yello w APPEARANCE [...] 18, 2023 11:45 AM VA-TOBACCO NEVER USED [facility] Tobacco Use History This section includes a history of the smoking, or tobacco-related health factors, that were collected on or before the date of the Encounter. The data comes from the [place] facility where the Encounter took place. Date/Time Smoking Status/Tobacco Use Comment F mitul Oct 21, 2022 09:58 AM [place]-TOBACCO NEVER USED [facility] Jul 23, 2021 11:35 AM VA-TOBACCO NEVER USED [facility] Nov 01, 2001 10:14 AM HF V9 CURRENT NON-SMOKER [facility] Sep 19, 2000 11:13 AM HF V9 CURRENT NON-SMOKER quit 1982 [facility] Advance Directives: All historical and [...] 02, 2021 ADVANCE DIRECTIVE DISCUSSION VANE DAWKINS [facility] Feb 13, 2020 ADVANCE DIRECTIVE DISCUSSION VANE DAWKINS [facility] Encounter Notes: All associated encounter notes This section contains the clinical notes associated to the Encounter. Date/Time Encounter Note(s) Provider Source Nov 27, 2024 05:14 PM NURSING NOTE: LOCAL TITLE: [facility] FOCUSED NURSING NOTE STANDARD TITLE: NURSING NOTE DATE OF NOTE: NOV 27, 2024@17:14 ENTRY DATE: NOV 27, 2024@17:14:46 AUTHOR: HONORIO FERNANDES EXP COSIGNER: URGENCY: STATUS: COMPLETED Length of home visit: 30 min Patient name: JESSICA ALVAREZ Patient : Jul Date/Time of Visit: Nov@13:30 Vital Signs: Wt: WEIGHT: No values within 24 hours BP: BLOOD PRESSURE: Measurement DT BP 11/27/2024 13:30 130/70 Pulse: PULSE: Measurement DT PULSE 11/27/2024 13:30 78 Pulse Ox: Resp: RESPIRATIONS: Measurement DT RESP 11/27/2024 13:30 16 Pain: PAIN SCORE: Measurement DT PAIN 11/27/2024 13:30 Unable to Respond Temp: 98.2 F [36.8 C] (11/27/2024 13:30) Reason for visit: Received message that patient had pulled out his f/c- daughter was asking for a visit- Do you have any pain now? No Falls: Assist Devices: Have you fallen since the last [facility] nurse visit? No If yes, date [...] STOMACH 30 MINUTES BEFORE A MEAL 16) ONDANSETRON 8MG ORAL DISINTEGRATING TAB DISSOLVE ONE TABLET ACTIVE IN MOUTH THREE TIMES A DAY Indication: FOR NAUSEA/VOMITING 17) PSYLLIUM ORAL PWD MIX 1 TEASPOONFUL (5ML) IN 8 OZ GLASS OF ACTIVE WATER AND TAKE BY MOUTH DAILY FOR CONSTIPATION 18) ROSUVASTATIN CA 10MG TAB TAKE ONE-HALF TABLET BY MOUTH AT ACTIVE BEDTIME FOR CHOLESTEROL 19) SENNOSIDES 8.6MG TAB TAKE THREE TABLETS BY MOUTH DAILY FOR ACTIVE CONSTIPATION 20) TAMSULOSIN HCL 0.4MG CAP TAKE TWO CAPSULES BY MOUTH EVERY ACTIVE EVENING FOR PROSTATE 21) UNDERPAD,BED [id number] TRANQUILITY-2710 USE UNDERPAD ACTIVE DIRECTED NEEDED Inactive Outpatient Medications Status = 1) BRIEF,TRANQ MARYBETH OVERNITE M#[id number] PULLUP USE 1 BRIEF DIRECTED THREE TIMES A DAY FOR INCONTINENCE Active Non-VA Medications Status = 1) Non-VA MENTHOL 2% GEL,TOP SMALL AMOUNT AFFECTED AREA DAILY ACTIVE NEEDED 2) Non-VA QUNOL CAP/TAB 1 CAP/TAB MOUTH DAILY ACTIVE Indication: supplement 24 Total Medications Are you taking any new medication (non-VA, over the counter, herbal medications) since the last [facility] visit? No Additional information: Upon arrival patient was lying in the bed-POSTBED STITCHER present-f/c was intact-urine in the bag-he had actually just disconnected the bag from the f/c-called daughter and educated her on f/c-she voiced understanding-stated that when the other caregiver called and said he had pulled out his f/c-she thought he had removed it-with the ballon intact- patient denies any issues at this time. Issues to be addressed by provider: /marlon/ HONORIO FERNANDES RN Signed: 11/27/2024 17:18 HONORIO FERNANDES-[facility]D [facility]
--- OUTSIDE RECORDS SUMMARY | 2024-11-29 15:49 | XMS_ITS | Continuity of Care Document ---
Author Name [facility] Organization [facility] Care Team Providers Care Retouching Operator Name Role Phone [facility] Unavailable Unavailable Problems Combined list of problems from Department of Defense and Veterans Affairs facilities. It does not include entries that were removed or entered in error. Problem Status Onset Date Problem Type Date of Resolution Comments Source Dysphagia Active 11/03/19 25 Condition Nov 19, 2024 Entered By: LYSSA CARTER Comment: s/p dililtation [facility] Allergic rhinitis Active Condition [facility] Anxiety disorder (SNOMED CT 203967978) Active Condition [facility] Atrial fibrillation Active Condition [place] Benign prostatic hyperplasia Active Condition [facility] CHF - Congestive Heart Failure ([facility] [id number]) Active Condition [facility] Chronic bronchitis Active Condition [facility] Chronic kidney disease stage 3B Active Condition [place] [facility] Chronic orthostatic hypotension Active Condition [facility] Constipation (SNOMED CT 05209072) Active Condition [facility] Diverticular Disease Active Condition Jul 16, 2002 Entered By: ADAM IBARRA Comment: and polyp (per colonoscopy 02-22. Path: hyperplastic) [facility] Dry eye syndrome Active Condition [place] [facility] Gastroesophageal reflux disease Active Condition [facility] Gastroesophageal reflux disease (SNOMED CT 674653864) Active Condition Dec 20, 2000 Entered By: ADAM IBARRA Comment: (s/p H Pylori treatment 06/16)Jul 16, 2002 Entered By: ADAM IBARRA Comment: with hiatal hernia (per UGI -) [facility] Gastroesophageal reflux disease without esophagitis Active Condition [place] [facility] Gross Hematuria [facility] Hearing loss Active Condition [facility] Hyperlipidemia (SNOMED CT 63353730) [facility] Hypertension [facility] Malnutrition Active Condition [facility] Mild cognitive impairment Active Condition [facility] Osteoarthritis (SNOMED CT 887481609) Active Condition May 10, 2001 Entered By: ADAM IBARRA Comment: of thoracic spine with hyperostosis [facility] Osteoarthritis of knee Active [facility] Osteopenia Active Condition [facility] Nonspecific Abnormal Finding of Lung Field (ICD-9-CM 793.19) [facility] Pain of bilateral knee joints Active Condition [facility] TIA Active Condition Jan 03 Entered By: ADAM IBARRA Comment: (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) [facility] TIA - Transient ischaemic attack [facility] Unspecified Housing or Economic Circumstance Active Condition [facility] Acute bronchitis (ICD-9-CM 466.0) Inactive Condition 07/12/2013 Jul 12 4 Entered By: GOLDIE DAVIS Comment: removed per MD request [facility] Adjustment disorder with mixed emotional features (SNOMED CT [id number]) Inactive [facility]04[facility] Constipation Inactive Condition 03/21/2003 [facility] Gastroesophageal reflux disease Inactive Condition 11/14/2017 [facility] Hypertension Inactive Condition 11/14/2017 [facility] Hypertrophy (Benign) of Prostate without Urinary obstruction (ICD-9-CM 600.00) Inactive Condition 11/14/2017 [place] [facility] Nocturia * (ICD-9-CM 788.43) Inactive Condition 07/12/2013 Jul 12 14 Entered By: GOLDIE DAVIS Comment: removed per MD request [facility] Other Specified Counseling (ICD-9-CM V65.49) Inactive Condition 01/16/2004 [place] [facility] Simple obesity Inactive Condition 11/14/2017 [facility] Urgency of urination (ICD-9-CM 788.63) Inactive Condition 07/12/2013 Jul 12, 2013 Entered By: GOLDIE DAVIS Comment: removed per MD request [facility] Diagnosis: ICD-10-CM N40.1 Benign prostatic hyperplasia with lower urinary tract symp Active Diagnosis [facility] Diagnosis: ICD-10-CM R33.9 Retention of urine, unspecified Active Diagnosis [facility] Diagnosis: ICD-10-CM I48.91 Unspecified atrial fibrillation Active Diagnosis [facility] Diagnosis: ICD-10-CM G31.84 Mild cognitive impairment of uncertain or unknown etiology [facility] Diagnosis: ICD-10-CM Z79.899 Other senior care (current) drug therapy Active Diagnosis [facility] Diagnosis: ICD-10-CM I10 Essential (primary) hypertension Active Diagnosis [facility] Diagnosis: ICD-10-CM Z65.9 Problem related to unspecified psychosocial circumstances Active Diagnosis [facility] Diagnosis: ICD-10-CM E44.0 Moderate protein-calorie malnutrition Active Diagnosis [facility] Diagnosis: ICD-10-CM K59.00 Constipation, unspecified Active Diagnosis [facility] Diagnosis: ICD-10-CM G45.9 Transient cerebral ischemic attack, unspecified Active Diagnosis [facility] Diagnosis: ICD-10-CM Z74.1 Need for assistance with personal care Active Diagnosis [place] [facility] Diagnosis: ICD-10-CM M17.9 Osteoarthritis of knee, unspecified Active [facility] Diagnosis: ICD-10-CM Z71.3 Dietary counseling and surveillance Active [facility] Diagnosis: ICD-10-CM Z74.2 Need for assist at home & no house memb able to render care Active Diagnosis [facility] Diagnosis: ICD-10-CM J06.9 Acute upper respiratory infection, unspecified Active Diagnosis [facility] Diagnosis: ICD-10-CM J41.0 Simple chronic bronchitis Active Diagnosis [facility] Diagnosis: ICD-10-CM Z87.898 Personal history of other specified conditions Active Diagnosis [facility] Diagnosis: ICD-10-CM H25.813 Combined forms of age-related cataract, bilateral Active Diagnosis [place] [facility] Diagnosis: ICD-10-CM N18.32 Chronic kidney disease, stage 3b Active Diagnosis [place] [facility] Diagnosis: ICD-10-CM R68.89 Other general symptoms and signs Active Diagnosis [place] [facility] Medications Combined list of outpatient medications [...] 12 TABLETS PER DAY ORAL ACTIVE 10/14/2025 [id number] 5 ZENY CARTER 2024 500 [place] ACETAMINOPH EN 325MG TAB TAKE TWO TABLETS BY MOUTH THREE TIMES A DAY FOR PAIN - DO NOT TAKE MORE THAN 12 TABLETS PER DAY ORAL DISCONT INUED 09/23/2024 [id number] 5 ZENY CARTER 2023 500 [place] AMLODIPINE BESYLATE 5MG TAB TAKE ONE TABLET BY MOUTH DAILY FOR BLOOD PRESSURE /HEART - DO NOT DRINK GRAPEFRU IT JUICE WHILE ON THIS DRUG ORAL DISCONT INUED BY PROVIDE R 10/04/2024 [id number] 5 ZENY CARTER 2023 90 [place] AMLODIPINE BESYLATE 5MG TAB TAKE ONE TABLET BY MOUTH DAILY FOR BLOOD PRESSURE /HEART - DO NOT DRINK GRAPEFRU IT JUICE WHILE ON THIS DRUG ORAL DISCONT INUED 01/15/2024 [id number] ZENY CARTER 2022 90 [place] AMOXICILLIN TRIHYDRATE 875MG/CLAVU LANATE K 125MG TAB TAKE 1 TABLET BY MOUTH TWICE A DAY FOR BRONCHIT IS ORAL DISCONT INUED BY PROVIDE R 07/13/2024 [id number] ZENY CARTER 02/26/ 2025 14 [place] AMOXICILLIN TRIHYDRATE 875MG/CLAVU LANATE K 125MG TAB TAKE 1 TABLET BY MOUTH TWICE A DAY FOR PNEUMONI A ORAL DISCONT INUED BY PROVIDE R 05/27/2024 [id number] ZENY CARTER K 2024 10 [place] ASCORBIC ACID 250MG TAB TAKE ONE TABLET BY MOUTH ON TUESDAY, TUESDAY, , AND TUESDAY FOR NUTRITIO N ORAL DISCONT INUED BY PROVIDE R 12/18/2024 [id number] 5 ZENY CARTER K 2024 100 [place] ASCORBIC ACID 250MG TAB TAKE ONE TABLET BY MOUTH ON TUESDAY, TUESDAY, , AND TUESDAY FOR NUTRITIO N ORAL DISCONT INUED 09/08/2024 [id number] ZENY CARTER K 2024 100 [place] ASPIRIN 325MG TAB,EC TAKE ONE TABLET BY MOUTH DAILY FOR HEART ORAL DISCONT INUED (EDIT) 08/29/2025 [id number] 5 ZENY CARTER 2024 90 [place] ASPIRIN 325MG TAB,EC TAKE ONE TABLET BY MOUTH DAILY FOR HEART ORAL DISCONT INUED 10/19/2024 [id number] 4 ZENY CARTER K 2023 90 [place] ASPIRIN 81MG TAB,EC TAKE ONE TABLET BY MOUTH DAILY FOR HEART ORAL ACTIVE 11/14/2025 [id number] 5 ZENY CARTER K 2024 90 [place] AZITHROMYCI N 500MG TAB TAKE ONE TABLET BY MOUTH DAILY FOR PNEUMONI A ORAL DISCONT INUED BY PROVIDE R 05/27/2024 [id number] ZENY CARTER K 2024 3 [place] CALCIUM 500MG/VITAM IN D 200UNT TAB TAKE 1 TABLET BY MOUTH DAILY FOR NUTRITIO N ORAL ACTIVE 04/28/2025 [id number] 5 ZENY CARTER 2024 90 [place] CALCIUM 500MG/VITAM IN D 200UNT TAB TAKE 1 TABLET BY MOUTH DAILY FOR NUTRITIO N ORAL DISCONT INUED 01/15/2024 [id number] 4 ZENY CARTER 2022 90 [place] CARBAMIDE PEROXIDE 6.5%/GLYCER IN SOLN,OTIC INSTILL 2 DROPS IN BOTH EARS TWICE A DAY FOR EAR WAX REMOVAL -ALLOW DROPS TO REMAIN IN EAR FOR AT LEAST 15 MINUTES. FLUSH EAR WITH WARM WATER USING BULB EAR SYRINGE. AURICU LAR (OTIC) 12/07/2023 [id number] ZENY CARTER 2023 15 [place] CETIRIZINE HCL 10MG TAB TAKE ONE-HALF TABLET BY MOUTH DAILY FOR ALLERGIE S ORAL ACTIVE 03/10/2025 [id number] 5 ZENY CARTER 2023 45 [place] CETIRIZINE HCL 10MG TAB TAKE ONE-HALF TABLET BY MOUTH DAILY FOR ALLERGIE S ORAL DISCONT INUED 03/01/2024 [id number] ZENY CARTER 2022 45 [place] DEXTROMETHO RPHAN HBR 10MG/GUAIFE NESIN 100MG/5ML (AF & SF) LIQUID TAKE 5ML BY MOUTH FOUR TIMES A DAY NEEDED FOR COUGH ORAL DISCONT INUED BY PROVIDE R 05/27/2024 [id number] 5 ZENY CARTER 2024 120 [place] DICLOFENAC NA 1% GEL,TOP APPLY 2 GRAM STRIP TO AFFECTED AREA EVERY 6 HOURS NEEDED FOR PAIN APPLY TO KNEES TOPICA L ACTIVE 07/07/2025 [id number] 5 ZENY CARTER 2024 200 [place] DICLOFENAC NA 1% GEL,TOP APPLY 2 GRAM STRIP TO AFFECTED AREA EVERY 6 HOURS NEEDED FOR PAIN APPLY TO KNEES TOPICA L DISCONT INUED 02/02/2025 [id number] 4 ZENY CARTER 2023 200 [place] DICLOFENAC NA 1% GEL,TOP APPLY 2 GRAM STRIP TO AFFECTED AREA EVERY 6 HOURS NEEDED FOR PAIN APPLY TO KNEES TOPICA L DISCONT INUED 06/16/2024 [id number] ZENY CARTER 2023 200 [place] DILTIAZEM (EQV-TIAZAC AB4) 360MG 24HR CAP TAKE ONE CAPSULE BY MOUTH DAILY FOR BLOOD PRESSURE /HEART - DO NOT DRINK GRAPEFRU IT JUICE WHILE ON THIS DRUG ORAL DISCONT INUED BY PROVIDE R 09/20/2025 [id number] 5 ZENY CARTER 2024 90 [place] DILTIAZEM (EQV-TIAZAC AB4) 360MG 24HR CAP TAKE ONE CAPSULE BY MOUTH DAILY FOR BLOOD PRESSURE /HEART - DO NOT DRINK GRAPEFRU IT JUICE WHILE ON THIS DRUG ORAL DISCONT INUED 08/19/2024 [id number] 5 ZENY CARTER 2023 90 [place] ENSURE PLUS LIQUID VANILLA TAKE 1 CAN BY MOUTH THREE TIMES A DAY FOR NUTRITIO N ORAL ACTIVE 08/01/2025 [id number] Mi FITZGERALD RITTANY C 2024 96 [place] FERROUS SO4 324MG TAB,EC TAKE ONE TABLET BY MOUTH ON TUESDAY, TUESDAY, Y, AND TUESDAY FOR IRON SUPPLEME NT ORAL DISCONT INUED BY PROVIDE R 12/18/2024 [id number] 5 ZENY CARTER 2024 100 [place] FERROUS SO4 324MG TAB,EC TAKE ONE TABLET BY MOUTH ON TUESDAY, TUESDAY, Y, AND TUESDAY FOR IRON SUPPLEME NT ORAL DISCONT INUED 09/08/2024 [id number] ZENY CARTER 2024 100 [place] FINASTERIDE 5MG TAB TAKE ONE TABLET BY MOUTH DAILY FOR PROSTATE - HAZARDOU S HANDLING ALERT ORAL SUSPEND ED 02/11/2025 [id number] 5 ZENY CARTER 2024 90 [place] FINASTERIDE 5MG TAB TAKE ONE TABLET BY MOUTH DAILY FOR PROSTATE - HAZARDOU S HANDLING ALERT ORAL DISCONT INUED 12/18/2024 [id number] 5 ZENY CARTER 2024 90 [place] FINASTERIDE 5MG TAB TAKE ONE TABLET BY MOUTH DAILY FOR PROSTATE - HAZARDOU S HANDLING ALERT ORAL DISCONT INUED 11/14/2024 [id number] 5 ZENY CARTER 2024 90 [place] [facility] FINASTERIDE 5MG TAB TAKE ONE TABLET BY MOUTH DAILY FOR PROSTATE - HAZARDOU S HANDLING ALERT ORAL DISCONT INUED 07/26/2024 [id number] 5 ZENY CARTER 2024 90 [place] FINASTERIDE 5MG TAB TAKE ONE TABLET BY MOUTH DAILY FOR PROSTATE - HAZARDOU S HANDLING ALERT ORAL DISCONT INUED 01/02/2024 [id number] 4 ZENY CARTER 2023 90 [place] FLUTICASONE PROPIONATE 50MCG/SPRAY SOLN,NASAL, 16GM USE 2 SPRAYS IN EACH NOSTRIL AT BEDTIME FOR NASAL ALLERGY NASAL ACTIVE 07/07/2025 [id number] 5 ZENY CARTER 2024 2 [place] FLUTICASONE PROPIONATE 50MCG/SPRAY SOLN,NASAL, 16GM USE 2 SPRAYS IN EACH NOSTRIL AT BEDTIME FOR NASAL ALLERGY NASAL DISCONT INUED 04/28/2024 [id number] 4 ZENY CARTER 2023 2 [place] [facility] LOSARTAN 25MG TAB TAKE ONE TABLET BY MOUTH DAILY FOR BLOOD PRESSURE ORAL ACTIVE 11/14/2025 [id number] ZENY CARTER 2024 90 [place] MELOXICAM 7.5MG TAB TAKE ONE TABLET BY MOUTH DAILY FOR PAIN OR INFLAMMA TION -TAKE WITH FOOD OR MILK ORAL ACTIVE 06/14/2025 [id number] ZENY CARTER 2024 90 [place] MENTHOL 2% GEL,TOP APPLY SMALL AMOUNT TO AFFECTED AREA DAILY NEEDED TOPICA L ACTIVE CODI EASLEY B 2021 [place] [facility] [place] MENTHOL/MET HYL SALICYLATE (16-30%) HIGH CONC. CREAM,TOP APPLY TO AFFECTED AREA THREE TIMES A DAY NEEDED FOR LOCAL PAIN. APPLY TO KNEES TOPICA L ACTIVE 07/07/2025 [id number] 5 ZENY CARTER 2024 85 [place] MENTHOL/MET HYL SALICYLATE (16-30%) HIGH CONC. CREAM,TOP APPLY TO AFFECTED AREA THREE TIMES A DAY NEEDED FOR LOCAL PAIN. APPLY TO KNEES TOPICA L DISCONT INUED 08/24/2024 [id number] 4 ZENY CARTER 2023 85 [place] MICONAZOLE NITRATE 2% CREAM,TOP APPLY SMALL AMOUNT TO AFFECTED AREA TWICE A DAY NEEDED FOR FUNGAL INFECTIO N TOPICA L 02/11/2024 [id number] ZENY CARTER 2022 30 [place] MULTIVITAMI N/MINERALS HERBAL CAP/TAB TAKE 1 CAP/TAB BY MOUTH DAILY ORAL ACTIVE MAVERICK TAI 2023 [place] [facility] OMEPRAZOLE 20MG CAP,EC TAKE TWO CAPSULES BY MOUTH TWICE A DAY FOR STOMACH. TAKE ON AN EMPTY STOMACH 30 MINUTES BEFORE A MEAL ORAL ACTIVE 10/14/2025 [id number] 5 ZENY CARTER 2024 360 [place] OMEPRAZOLE 20MG CAP,EC TAKE TWO CAPSULES BY MOUTH TWICE A DAY FOR STOMACH. TAKE ON AN EMPTY STOMACH 30 MINUTES BEFORE A MEAL ORAL DISCONT INUED 10/04/2024 [id number] 5 ZENY CARTER 2023 360 [place] OMEPRAZOLE 20MG CAP,EC TAKE TWO CAPSULES BY MOUTH TWICE A DAY FOR STOMACH. TAKE ON AN EMPTY STOMACH 30 MINUTES BEFORE A MEAL ORAL DISCONT INUED 01/15/2024 [id number] 4 ZENY CARTER 2022 360 [place] ONDANSETRON HCL 8MG TAB,ORALLY DISINTEGRAT ING DISSOLVE ONE TABLET IN MOUTH THREE TIMES A DAY FOR NAUSEA/V OMITING ORAL ACTIVE 12/20/2024 [id number] LOUISE TABARES TTHEW E 2024 21 [place] POLYVINYL ALCOHOL 1.4% SOLN,OPH PUT 2 DROPS IN EYE(S) DIRECTED NEEDED FOR DRY EYES OPHTHA LMIC ACTIVE 11/29/2024 [id number] ZENY CARTER 2023 45 [place] [facility] PSYLLIUM PWDR,ORAL MIX 1 TEASPOON FUL (5ML) IN 8 OZ GLASS OF WATER AND TAKE BY MOUTH DAILY FOR CONSTIPA TION ORAL ACTIVE 09/20/2025 [id number] 5 ZENY CARTER 2024 390 [place] PSYLLIUM PWDR,ORAL MIX 1 TEASPOON FUL (5ML) IN 8 OZ GLASS OF WATER AND TAKE BY MOUTH DAILY FOR CONSTIPA TION ORAL DISCONT INUED 08/24/2024 [id number] 5 ZENY CARTER 2023 390 [place] [facility] ROSUVASTATI N CA 10MG TAB TAKE ONE-HALF TABLET BY MOUTH AT BEDTIME FOR CHOLESTE ROL ORAL ACTIVE 08/17/2025 [id number] 5 ZENY CARTER 2024 45 [place] [facility] ROSUVASTATI N CA 10MG TAB TAKE ONE-HALF TABLET BY MOUTH AT BEDTIME FOR CHOLESTE ROL ORAL DISCONT INUED 08/19/2024 [id number] ZENY CARTER HEMANTH Mar 2023 45 [place] SENNOSIDES 8.6MG TAB TAKE THREE TABLETS BY MOUTH DAILY FOR CONSTIPA TION ORAL ACTIVE 10/14/2025 [id number] ZENY CARTER HEMANTH Mar 2024 300 [place] SENNOSIDES 8.6MG TAB TAKE THREE TABLETS BY MOUTH DAILY FOR CONSTIPA TION ORAL DISCONT INUED 10/04/2024 [id number] ZENY CARTER HEMANTH Mar 2023 300 [place] SENNOSIDES 8.6MG TAB TAKE THREE TABLETS BY MOUTH DAILY FOR CONSTIPA TION - NOTE DOSE CHANGE 09/01/21 ORAL DISCONT INUED 09/16/2023 [id number] 4 ZENY CARTER HEMANTH Mar 2022 300 [place] TAMSULOSIN HCL 0.4MG CAP TAKE TWO CAPSULES BY MOUTH EVERY EVENING FOR PROSTATE ORAL ACTIVE 09/20/2025 [id number] 5 ZENY CARTER HEMANTH Mar 2024 60 [place] TAMSULOSIN HCL 0.4MG CAP TAKE TWO CAPSULES BY MOUTH EVERY EVENING FOR PROSTATE ORAL DISCONT INUED 08/19/2024 [id number] 5 ZENY CARTER HEMANTH Mar 2023 60 [place] Allergies, Adverse Reactions, Alerts Combined list of allergies from Department of Defense and Veterans Affairs facilities. It does not include entries that were removed or entered in error. Substance Category Reaction Severity Reaction type Status Date Reported Comments Source BENAZEPRIL Propensity to adverse reactions to drug (finding) Lip swelling active 2 [facility] LOVASTATIN Propensity to adverse reactions to drug (finding) active 9 [facility] Immunizations Combined list of available immunizations from the Department of Defense and Veterans Affairs facilities. 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 Status Comments Source COVID-19 (MODERNA), MRNA, LNP-S, PF, 50 MCG/0.5 ML (AGES 12+ YEARS) 2023 SANNA FERNANDES RIGHT DELTO ID [id number] 312 complet ed [facility] [place] [facility] INFLUENZA, HIGH-DOSE, TRIVALENT, PF 2023 SANNA FERNANDES RIGHT DELTO ID [id number] 135 complet ed [place] [place], [place] [facility] TD (ADULT), 5 LF TETANUS TOXOID, PRESERVATIVE FREE, ADSORBED 2022 SANNA FERNANDES LEFT DELTO ID [id number] 113 complet ed [place] [place] [facility] COVID-19 (PFIZER), MRNA, LNP-S, PF, JESS-SUCROSE, 30 MCG/0.3 ML (AGES 12+ YEARS) 1 2022 SANNA FERNANDES LEFT DELTO ID [id number] 309 complet ed [place] [place], [place] INFLUENZA, HIGH-DOSE, QUADRIVALENT 2022 ZEINA ORTA LEFT DELTO ID [id number] 197 complet ed [place] [place], Temp 47degrees [place] [facility] PNEUMOCOCCAL CONJUGATE PCV20, POLYSACCHARID E [id number] CONJUGATE, ADJUVANT, PF 2021 SANNA FERNANDES LEFT DELTO ID [id number] 216 complet ed [place] [place], [place] [facility] INFLUENZA VACCINE, QUADRIVALENT, ADJUVANTED 2021 205 complet ed [place] [facility] ZOSTER RECOMBINANT 1 2020 187 complet ed [place] [facility] ZOSTER RECOMBINANT 1 2020 187 complet ed [place] [facility] INFLUENZA, INJECTABLE, QUADRIVALENT, PRESERVATIVE FREE 2020 150 complet ed [place] [facility] COVID-19 (MODERNA), MRNA, LNP-S, PF, 100 MCG/0.5 ML DOSE 2 2020 207 complet ed [place] [facility] COVID-19 (MODERNA), MRNA, LNP-S, PF, 100 MCG/0.5 ML DOSE 1 2020 207 complet ed [place] [facility] COVID-19 (MODERNA), MRNA, LNP-S, PF, 100 MCG/0.5ML DOSE OR 50 MCG/0.25ML DOSE 1 2020 207 complet ed HISTORICA L INFORMATI ON - FROM OTHER REGISTRY, [place] [facility] INFLUENZA, INJECTABLE, QUADRIVALENT, PRESERVATIVE FREE 2019 150 complet ed [place] [facility] INFLUENZA, SEASONAL, INJECTABLE 2018 141 complet ed Locally [place] [facility] INFLUENZA, SPLIT VIRUS, TRIVALENT, PF 2 2017 140 complet ed HISTORICA L INFORMATI ON - FROM OTHER REGISTRY, [place] [facility] INFLUENZA, SEASONAL, INJECTABLE 2017 141 complet ed [place] [facility] INFLUENZA A & B (HISTORICAL) 2016 88 complet ed [place] [facility] INFLUENZA, ADJUVANTED, TRIVALENT, PF 1 2016 168 complet ed HISTORICA L INFORMATI ON - FROM OTHER REGISTRY, [place] [facility] INFLUENZA A & B (HISTORICAL) 2015 88 complet ed [place] [facility] [id number] (HISTORICAL) 2015 133 complet ed [place] [facility] FLU,3 YRS (HISTORICAL) 2014 88 complet ed [place] [facility] INFLUENZA A & B (HISTORICAL) 2013 88 complet ed [place] [facility] FLU,3 YRS (HISTORICAL) 2013 88 complet ed [place] [facility] INFLUENZA A & B (HISTORICAL) 2012 88 complet ed [place] [facility] INFLUENZA A & B (HISTORICAL) 2011 [facility] [place] [facility] DTP 2010 JOHN [...] [facility] A & B (HISTORICAL) 2005 88 complet ed [place] [facility] INFLUENZA A & B (HISTORICAL) 2004 88 complet ed [place] [facility] FLU,3 YRS (HISTORICAL) 2003 CORAL STEPHENS 88 complet ed [place] [facility] INFLUENZA A & B (HISTORICAL) 2002 88 complet ed [place] [facility] FLU,3 YRS (HISTORICAL) 2002 DORITA ORNELAS 88 complet ed [place] [facility] HEP B, ADULT 2001 43 complet ed HISTORICA L INFORMATI ON - FROM OTHER REGISTRY, [place] [facility] HEP B, ADULT 2001 43 complet ed HISTORICA L INFORMATI ON - FROM OTHER REGISTRY, [place] [facility] HEP B, ADULT 3 2001 43 complet ed HISTORICA L INFORMATI ON - FROM OTHER REGISTRY, [place] [facility] HEP B, ADULT 2 2001 43 complet ed HISTORICA L INFORMATI ON - FROM OTHER REGISTRY, [place] [facility] [place] [facility](ADULT) UNSPECIFIED FORMULATION 2001 139 complet ed [place] [facility] [place] [facility], AD[facility] 1 2000 43 complet ed HISTORICA L INFORMATI ON - FROM OTHER REGISTRY, [place] [facility] [place] INFLUENZA, UNSPECIFIED FORMULATION 2000 88 complet ed [place] [facility] [place] INFLUENZA, UNSPECIFIED FORMULATION 2000 88 complet ed [place] [facility] [place] PNEUMOCOCCAL, UNSPECIFIED FORMULATION 2000 DANAY VALDES I 109 complet ed [place] INFLUENZA, UNSPECIFIED FORMULATION 1999 88 complet ed [place] [facility] [place] TD(ADULT) UNSPECIFIED FORMULATION 1996 139 complet ed [place] [facility] [place] Results Combined list of recent chemistry, hematology and other laboratory results from [employer], ranging from 15 months to all on record, depending upon the facility. Order Name Results Value Reference Range Date Interpretation Specimen Comments Source URINALYS IS WITH REFLEX TO CULTURE COLOR OF URINE Light Yellow 11/20 Specimen Type: URINE Comment: ~Urinary frequency, urgency or dysuria Microscopic not indicated Ordering Provider: YAINCK TABARES Report Released Date/Time: Nov 20, 2024 05:21 PM Reporting Lab: [facility] [address] [address] Performing Lab: [facility] [address] [id number] [facility] URINALYS IS WITH REFLEX TO CULTURE APPEARANCE OF URINE Clear 11/20 Specimen Type: URINE Comment: ~Urinary frequency, urgency or dysuria Microscopic not indicated Ordering Provider: YANICK TABARES Report Released Date/Time: Nov 20, 2024 05:21 PM Reporting Lab: [facility] [address] [id number] Performing Lab: [facility] [address] [address] [facility] URINAL[facility] IS WITH REFLEX TO CULTURE UROBILINOG EN [MASS/VOLU ME] IN URINE BY TEST STRIP Normalmg /dL 11/20 Specimen Type: URINE Comment: ~Urinary frequency, urgency or dysuria Microscopic not indicated Ordering Provider: YANICK TABARES Report Released Date/Time: Nov 20, 2024 05:21 PM Reporting Lab: [facility] [address] [address] Performing Lab: [address] [address] [facility] URINALYS IS WITH REFLEX TO CULTURE HEMOGLOBIN [PRESENCE] IN URINE BY TEST STRIP Negative 11/20 Specimen Type: URINE Comment: ~Urinary frequency, urgency or dysuria Microscopic not indicated Ordering Provider: YANICK TABARES Report Released Date/Time: Nov 20, 2024 05:21 PM Reporting Lab: [address] [address] Performing Lab: [address] [address] [facility] URINALYS IS WITH REFLEX TO CULTURE BILIRUBIN. TOTAL [PRESENCE] IN URINE BY TEST STRIP Negative 11/20 Specimen Type: URINE Comment: ~Urinary frequency, urgency or dysuria Microscopic not indicated Ordering Provider: YANICK TABARES Report Released Date/Time: Nov 20, 2024 05:21 PM Reporting Lab: [place] [id number] Performing Lab: [address] [address] [facility] URINALYS IS WITH REFLEX TO CULTURE KETONES [MASS/VOLU ME] IN URINE BY TEST STRIP Negative mg/dL 11/20 Specimen Type: URINE Comment: ~Urinary frequency, urgency or dysuria Microscopic not indicated Ordering Provider: YANICK TABARES Report Released Date/Time: Nov 20, 2024 05:21 PM Reporting Lab: [address] [address] Performing Lab: [address] [address] [facility] URIN[facility]YS IS WITH REFLEX TO CULTURE PROTEIN [MASS/VOLU ME] IN URINE BY TEST STRIP Negative mg/dL 11/20 Specimen Type: URINE Comment: ~Urinary frequency, urgency or dysuria Microscopic not indicated Ordering Provider: YANICK TABARES Report Released Date/Time: Nov 20, 2024 05:21 PM Reporting Lab: [address] [address] Performing Lab: [address] [address] [facility] URINALYS IS WITH REFLEX TO CULTURE PH OF URINE BY TEST STRIP 6.5 4.5 - 8.0 11/20 Specimen Type: URINE Comment: ~Urinary frequency, urgency or dysuria Microscopic not indicated Ordering Provider: YANICK TABARES Report Released Date/Time: Nov 20, 2024 05:21 PM Reporting Lab: [address] [address] Performing Lab: [address] [address] [facility] URINALYS IS WITH REFLEX TO CULTURE NITRITE [PRESENCE] IN URINE BY TEST STRIP Negative 11/20 Specimen Type: URINE Comment: ~Urinary frequency, urgency or dysuria Microscopic not indicated Ordering Provider: YANICK TABARES Report Released Date/Time: Nov 20, 2024 05:21 PM Reporting Lab: [address] [address] Performing Lab: [address] [address] [facility] URIN[facility]YS IS WITH REFLEX TO CULTURE LEUKOCYTE ESTERASE [PRESENCE] IN URINE BY TEST STRIP Negative 11/20 Specimen Type: URINE Comment: ~Urinary frequency, urgency or dysuria Microscopic not indicated Ordering Provider: YANICK TABARES Report Released Date/Time: Nov 20, 2024 05:21 PM Reporting Lab: [address] [address] Performing Lab: [address] [address] [facility] URINALYS IS WITH REFLEX TO CULTURE SPECIFIC GRAVITY OF URINE 1.008 1.005 - 1.030 11/20 Specimen Type: URINE Comment: ~Urinary frequency, urgency or dysuria Microscopic not indicated Ordering Provider: YANICK TABARES Report Released Date/Time: Nov 20, 2024 05:21 PM Reporting Lab: [address] [address] Performing Lab: [address] [address] [facility] URINALYS IS WITH REFLEX TO CULTURE GLUCOSE [MASS/VOLU ME] IN URINE BY TEST STRIP Negative mg/dL 11/20 Specimen Type: URINE Comment: ~Urinary frequency, urgency or dysuria Microscopic not indicated Ordering Provider: YANICK TABARES Report Released Date/Time: Nov 20, 2024 05:21 PM Reporting Lab: [address] [address] Performing Lab: [address] [address] [facility] FERRITIN FERRITIN [MASS/VOLU ME] IN SERUM OR PLASMA 232.6 ng/mL 21.8 - 274.7 06/08 Specimen Type: PLASMA No comment entered. Ordering Provider: KIRK CARTER Report Released Date/Time: Jun 08, 2024 10:50 AM Reporting Lab: [address] [address] Performing Lab: [address] [address] [facility] IRON/TIB C IRON [MOLES/VOL UME] IN SERUM OR PLASMA 60 ug/dL 65 - 175 06/08 L Specimen Type: PLASMA No comment entered. Ordering Provider: KIRK CARTER Report Released Date/Time: Jun 08, 2024 10:50 AM Reporting Lab: [address] [address] Performing Lab: [address] [address] [facility] IRON/TIB C IRON BINDING CAPACITY [MASS/VOLU ME] IN SERUM OR PLASMA 163 mg/dL 250 - 425 06/08 L Specimen Type: PLASMA No comment entered. Ordering Provider: KIRK CARTER Report Released Date/Time: Jun 08, 2024 10:50 AM Reporting Lab: [address] [address] Performing Lab: [address] [address] [facility] IRON/TIB C IRON SATURATION [MOLAR FRACTION] IN SERUM OR PLASMA 37 20 - 50 06/08 Specimen Type: PLASMA No comment entered. Ordering Provider: KIRK CARTER Report Released Date/Time: Jun 08, 2024 10:50 AM Reporting Lab: [address] [address] Performing Lab: [address] [phone] [place] [address] 25-OH VITAMIN D 25-HYDROXY VITAMIN D3 [MASS/VOLU [...] August 24, 2023 04:05 PM Reporting Lab: [address] [address] Performing Lab: [address] [address] [facility] PANEL 2 PROTEIN [MASS/VOLU ME] [...] 2023 04:05 PM Reporting Lab: [facility] [address] [address] Performing Lab: [facility] [address] [address] [facility] PANEL 2 ALBUMIN [MASS/VOLU ME] [...] 2023 04:05 PM Reporting Lab: [facility] [address] [address] Performing Lab: [facility] [address] [address] [facility] PANEL 2 BILIRUBIN. TOTAL [MASS/VOLU [...] 2023 04:05 PM Reporting Lab: [facility] [address] [address] Performing Lab: [facility] [address] [address] [facility] PANEL 2 ASPARTATE AMINOTRANS FERASE [...] 2023 04:05 PM Reporting Lab: [facility] [address] [address] Performing Lab: [facility] [address] [address] [facility] PANEL 2 ALANINE AMINOTRANS FERASE [...] 2023 04:05 PM Reporting Lab: [facility] [address] [address] Performing Lab: [facility] [address] [address] [facility] PANEL 2 ALKALINE PHOSPHATAS E [...] 2023 04:05 PM Reporting Lab: [facility] [address] [address] Performing Lab: [facility] [address] [address] [facility] PANEL 2 BILIRUBIN. DIRECT [MASS/VOLU [...] 2023 04:05 PM Reporting Lab: [facility] [address] [address] Performing Lab: [facility] [address] [address] [facility] PANEL 1 CREATININE [MASS/VOLU ME] [...] August 24, 2023 04:05 PM Reporting Lab: [facility] [address] [address] Performing Lab: [facility] [address] [address] [facility] PANEL 1 UREA NITROGEN [MASS/VOLU [...] August 24, 2023 04:05 PM Reporting Lab: [place] [address] [address] Performing Lab: [place] [facility] [address] [facility] PANEL 1 GLUCOSE [MASS/VOLU ME] [...] 2023 04:05 PM Reporting Lab: [facility] [address] [address] Performing Lab: [facility] [address] [address] [facility] PANEL 1 SODIUM [MOLES/VOL UME] [...] 2023 04:05 PM Reporting Lab: [facility] [address] [address] Performing Lab: [facility] [address] [address] [facility] PANEL 1 POTASSIUM [MOLES/VOL UME] [...] 2023 04:05 PM Reporting Lab: [facility] [address] [address] Performing Lab: [facility] [address] [address] [facility] PANEL 1 CHLORIDE [MOLES/VOL UME] [...] 2023 04:05 PM Reporting Lab: [facility] [address] [address] Performing Lab: [facility] [address] [address] [facility] PANEL 1 CARBON DIOXIDE, TOTAL [MOLES/VOL UME] IN SERUM OR PLASMA 23 mmol/L 22 - 29 06/07 Specimen Type: PLASMA Comment: Estimated Glomerular [...] 2023 04:05 PM Reporting Lab: [facility] [address] [address] Performing Lab: [facility] [address] [address] [facility] PANEL 1 CALCIUM [MASS/VOLU ME] [...] 2023 04:05 PM Reporting Lab: [facility] [address] [address] Performing Lab: [facility] [address] [address] [facility] PANEL 1 ANION GAP 3 [...] 2023 04:05 PM Reporting Lab: [facility] [address] [address] Performing Lab: [facility] [address] [address] [facility] PANEL 1 GLOMERULAR FILTRATION RATE/1.73 [...] 2023 04:05 PM Reporting Lab: [facility] [address] [address] Performing Lab: [facility] [address] [address] [facility] CBC/PLT LEUKOCYTES [#/VOLUME] IN BLOOD BY AUTOMATED COUNT 3.9 10*3/uL 5.0 - 10.0 06/07 L Specimen Type: BLOOD No comment entered. Ordering Provider: KIRK CARTER Report Released Date/Time: August 24, 2023 04:05 PM Reporting Lab: [place] [id number] Performing Lab: [place] [id number] [place] [address] CBC/PLT ERYTHROCYT ES [#/VOLUME] IN BLOOD BY AUTOMATED COUNT 4.21 10*6/uL 4.6 - 6.2 06/07 L Specimen Type: BLOOD No comment entered. Ordering Provider: KIRK CARTER Report Released Date/Time: August 24, 2023 04:05 PM Reporting Lab: [place] [id number] Performing Lab: [place] [address] [place] [address] CBC/PLT HEMOGLOBIN [MASS/VOLU ME] IN BLOOD 11.7 g/dL 14.0 - 18.0 06/07 L Specimen Type: BLOOD No comment entered. Ordering Provider: KIRK CARTER Report Released Date/Time: August 24, 2023 04:05 PM Reporting Lab: [address] [address] Performing Lab: [place] [id number] [place] [address] CBC/PLT HEMATOCRIT [VOLUME FRACTION] OF BLOOD BY AUTOMATED COUNT 33.6 42.0 - 52.0 06/07 L Specimen Type: BLOOD No comment entered. Ordering Provider: KIRK CARTER Report Released Date/Time: August 24, 2023 04:05 PM Reporting Lab: [address] [address] Performing Lab: [address] [phone] [place] [address] CBC/PLT MCV [ENTITIC VOLUME] BY AUTOMATED COUNT 79.8 fL 80.0 - 94.0 06/07 L Specimen Type: BLOOD No comment entered. Ordering Provider: KIRK CARTER Report Released Date/Time: August 24, 2023 04:05 PM Reporting Lab: [address] [address] Performing Lab: [address] [phone] [place] [address] CBC/PLT MCH [ENTITIC MASS] BY AUTOMATED COUNT 27.8 pg 27.0 - 31.0 06/07 Specimen Type: BLOOD No comment entered. Ordering Provider: KIRK CARTER Report Released Date/Time: August 24, 2023 04:05 PM Reporting Lab: [address] [address] Performing Lab: [place] [id number] [place] [address] CBC/PLT MCHC [MASS/VOLU ME] BY AUTOMATED COUNT 34.8 g/dL 32.0 - 36.0 06/07 Specimen Type: BLOOD No comment entered. Ordering Provider: KIRK CARTER Report Released Date/Time: August 24, 2023 04:05 PM Reporting Lab: [address] [address] Performing Lab: [place] [id number] [place] [address] CBC/PLT PLATELETS [#/VOLUME] IN BLOOD 230 10*3/uL 150 - 450 06/07 Specimen Type: BLOOD No comment entered. Ordering Provider: KIRK CARTER Report Released Date/Time: August 24, 2023 04:05 PM Reporting Lab: [address] [address] Performing Lab: [address] [phone] [place] [address] CBC/PLT PLATELET MEAN VOLUME [ENTITIC VOLUME] IN BLOOD 10.2 fL 9.0 - 13.1 06/07 Specimen Type: BLOOD No comment entered. Ordering Provider: KIRK CARTER Report Released Date/Time: August 24, 2023 04:05 PM Reporting Lab: [address] [address] Performing Lab: [address] [address] [facility] CBC/PLT ERYTHROCYT E DISTRIBUTI ON WIDTH [ENTITIC VOLUME] BY AUTOMATED COUNT 14.9 11.0 - 16.0 06/07 Specimen Type: BLOOD No comment entered. Ordering Provider: KIRK CARTER Report Released Date/Time: August 24, 2023 04:05 PM Reporting Lab: [address] [address] Performing Lab: [address] [address] [facility] CBC/PLT NUCLEATED ERYTHROCYT ES/100 ERYTHROCYT ES IN BLOOD 0.0 0.0 - 0.0 06/07 Specimen Type: BLOOD No comment entered. Ordering Provider: KIRK CARTER Report Released Date/Time: August 24, 2023 04:05 PM Reporting Lab: [address] [address] Performing Lab: [address] [address] [facility] PANEL 1 CREATININE [MASS/VOLU ME] [...] 2023 08:40 AM Reporting Lab: [facility] [address] [address] Performing Lab: [facility] [address] [address] [facility] PANEL 1 UREA NITROGEN [MASS/VOLU ME] IN SERUM OR PLASMA 25 mg/dL 9 - 25 06/09 Specimen Type: PLASMA Comment: Estimated Glomerular [...] 2023 08:40 AM Reporting Lab: [facility] [address] [address] Performing Lab: [facility] [address] [address] [facility] PANEL 1 GLUCOSE [MASS/VOLU ME] [...] 2023 08:40 AM Reporting Lab: [facility] [address] [address] Performing Lab: [facility] [address] [address] [facility] PANEL 1 SODIUM [MOLES/VOL UME] [...] 2023 08:40 AM Reporting Lab: [facility] [address] [address] Performing Lab: [facility] [address] [address] [facility] PANEL 1 POTASSIUM [MOLES/VOL UME] [...] 2023 08:40 AM Reporting Lab: [facility] [address] [address] Performing Lab: [facility] [address] [address] [facility] PANEL 1 CHLORIDE [MOLES/VOL UME] [...] 2023 08:40 AM Reporting Lab: [facility] [address] [address] Performing Lab: [facility] [address] [address] [facility] PANEL 1 CARBON DIOXIDE, TOTAL [...] 2023 08:40 AM Reporting Lab: [facility] [address] [facility] [address] Performing Lab: [facility] [address] [facility] [address] [facility] PANEL 1 CALCIUM [MASS/VOLU ME] [...] 2023 08:40 AM Reporting Lab: [facility] [address] [facility] [address] Performing Lab: [facility] [address] [facility] [address] [facility] PANEL 1 ANION GAP 3 IN SERUM OR PLASMA 14 meq/L 3 - 06/09 Specimen Type: PLASMA Comment: Estimated Glomerular [...] 2023 08:40 AM Reporting Lab: [facility] [address] [address] Performing Lab: [facility] [address] [address] [facility] PANEL 1 GLOMERULAR FILTRATION RATE/1.73 [...] Apr 19, 2023 08:40 AM Reporting Lab: [address] Performing Lab: [address] CBC/PLT LEUKOCYTES [#/VOLUME] IN BLOOD BY AUTOMATED COUNT 5.3 10*3/uL 5.0 - 10.0 06/09 Specimen Type: BLOOD No comment entered. Ordering Provider: KIRK CARTER Report Released Date/Time: Apr 19, 2023 08:40 AM Reporting Lab: [place] [id number] Performing Lab: [address] CBC/PLT ERYTHROCYT ES [#/VOLUME] IN BLOOD BY AUTOMATED COUNT 4.63 10*6/uL 4.6 - 6.2 06/09 Specimen Type: BLOOD No comment entered. Ordering Provider: KIRK CARTER Report Released Date/Time: Apr 19, 2023 08:40 AM Reporting Lab: [place] [id number] Performing Lab: [place] [id number] [place] [address] CBC/PLT HEMOGLOBIN [MASS/VOLU ME] IN BLOOD 13.3 g/dL 14.0 - 18.0 06/09 L Specimen Type: BLOOD No comment entered. Ordering Provider: KIRK CARTER Report Released Date/Time: Apr 19, 2023 08:40 AM Reporting Lab: [address] [place] [address] Performing Lab: [address] [address] [facility] CBC/PLT HEMATOCRIT [VOLUME FRACTION] OF BLOOD BY AUTOMATED COUNT 37.8 42.0 - 52.0 06/09 L Specimen Type: BLOOD No comment entered. Ordering Provider: KIRK CARTER Report Released Date/Time: Apr 19, 2023 08:40 AM Reporting Lab: [address] [address] Performing Lab: [address] [address] [facility] CBC/PLT MCV [ENTITIC VOLUME] BY AUTOMATED COUNT 81.6 fL 80.0 - 94.0 06/09 Specimen Type: BLOOD No comment entered. Ordering Provider: KIRK CARTER Report Released Date/Time: Apr 19, 2023 08:40 AM Reporting Lab: [address] [address] Performing Lab: [address] [address] [facility] CBC/PLT MCH [ENTITIC MASS] BY AUTOMATED COUNT 28.7 pg 27.0 - 31.0 06/09 Specimen Type: BLOOD No comment entered. Ordering Provider: KIRK CARTER Report Released Date/Time: Apr 19, 2023 08:40 AM Reporting Lab: [address] [address] Performing Lab: [address] [address] [facility] CBC/PLT MCHC [MASS/VOLU ME] BY AUTOMATED COUNT 35.2 g/dL 32.0 - 36.0 06/09 Specimen Type: BLOOD No comment entered. Ordering Provider: KIRK CARTER Report Released Date/Time: Apr 19, 2023 08:40 AM Reporting Lab: [address] [address] Performing Lab: [address] [address] [facility] CBC/PLT PLATELETS [#/VOLUME] IN BLOOD 243 10*3/uL 150 - 450 06/09 Specimen Type: BLOOD No comment entered. Ordering Provider: KIRK CARTER Report Released Date/Time: Apr 19, 2023 08:40 AM Reporting Lab: [address] [address] Performing Lab: [place] [id number] [place] [address] CBC/PLT PLATELET MEAN VOLUME [ENTITIC VOLUME] IN BLOOD 9.8 fL 9.0 - 13.1 06/09 Specimen Type: BLOOD No comment entered. Ordering Provider: KIRK CARTER Report Released Date/Time: Apr 19, 2023 08:40 AM Reporting Lab: [address] [address] Performing Lab: [place] [address] [place] [address] CBC/PLT ERYTHROCYT E DISTRIBUTI ON WIDTH [ENTITIC VOLUME] BY AUTOMATED COUNT 14.1 11.0 - 16.0 06/09 Specimen Type: BLOOD No comment entered. Ordering Provider: KIRK CARTER Report Released Date/Time: Apr 19, 2023 08:40 AM Reporting Lab: [address] [address] Performing Lab: [place] [id number] [place] [address] CBC/PLT NUCLEATED ERYTHROCYT ES/100 ERYTHROCYT ES IN BLOOD 0.0 0.0 - 0.0 06/09 Specimen Type: BLOOD No comment entered. Ordering Provider: KIRK CARTER Report Released Date/Time: Apr 19, 2023 08:40 AM Reporting Lab: [address] [address] Performing Lab: [place] [phone] [place] [address] URINALYS IS WITH REFLEX TO CULTURE COLOR OF URINE Yellow 06/09 Specimen Type: URINE No comment entered. Ordering Provider: ELLE FERNANDES Report Released Date/Time: Jun 09, 2023 07:28 AM Reporting Lab: [place] [id number] [facility] [address] Performing Lab: [address] [address] [facility] URINALYS IS WITH REFLEX TO CULTURE APPEARANCE OF URINE CLOUDY 06/09 H Specimen Type: URINE No comment entered. Ordering Provider: ELLE FERNANDES [facility] Report Released Date/Time: Jun 09, 2023 07:28 AM Reporting Lab: [facility] [address] Performing Lab: [address] [address] [facility] URINALYS IS WITH REFLEX TO CULTURE UROBILINOG EN [MASS/VOLU ME] IN URINE BY TEST STRIP Normalmg /dL 06/09 Specimen Type: URINE No comment entered. Ordering Provider: ELLE FERNANDES [facility] Report Released Date/Time: Jun 09, 2023 07:28 AM Reporting Lab: [address] [address] Performing Lab: [address] [address] [facility] URINALYS IS WITH REFLEX TO CULTURE HEMOGLOBIN [PRESENCE] IN URINE BY TEST STRIP Negative 06/09 Specimen Type: URINE No comment entered. Ordering Provider: ELLE FERNANDES [facility] Report Released Date/Time: Jun 09, 2023 07:28 AM Reporting Lab: [facility] [address] Performing Lab: [address] [address] [facility] URINALYS IS WITH REFLEX TO CULTURE BILIRUBIN. TOTAL [PRESENCE] IN URINE BY TEST STRIP Negative 06/09 Specimen Type: URINE No comment entered. Ordering Provider: ELLE FERNANDES [facility] Report Released Date/Time: Jun 09, 2023 07:28 AM Reporting Lab: [facility] [address] Performing Lab: [address] [address] [facility] URINALYS IS WITH REFLEX TO CULTURE KETONES [MASS/VOLU ME] IN URINE BY TEST STRIP Negative mg/dL 06/09 Specimen Type: URINE No comment entered. Ordering Provider: ELLE FERNANDES [facility] Report Released Date/Time: Jun 09, 2023 07:28 AM Reporting Lab: [address] [address] Performing Lab: [phone] [place] [address] URINALYS IS WITH REFLEX TO CULTURE PROTEIN [MASS/VOLU ME] IN URINE BY TEST STRIP 30 mg/dL 06/09 H Specimen Type: URINE No comment entered. Ordering Provider: ELLE FERNANDES [facility] Report Released Date/Time: Jun 09, 2023 07:28 AM Reporting Lab: [address] [address] Performing Lab: [place] [id number] [place] [address] URINALYS IS WITH REFLEX TO CULTURE PH OF URINE BY TEST STRIP 5.5 4.5 - 8.0 06/09 Specimen Type: URINE No comment entered. Ordering Provider: ELLE FERNANDES [facility] Report Released Date/Time: Jun 09, 2023 07:28 AM Reporting Lab: [address] [address] Performing Lab: [address] [phone] [place] [address] URINALYS IS WITH REFLEX TO CULTURE NITRITE [PRESENCE] IN URINE BY TEST STRIP Negative 06/09 Specimen Type: URINE No comment entered. Ordering Provider: ELLE FERNANDES [facility] Report Released Date/Time: Jun 09, 2023 07:28 AM Reporting Lab: [address] [address] Performing Lab: [address] [phone] [place] [address] URINALYS IS WITH REFLEX TO CULTURE LEUKOCYTE ESTERASE [PRESENCE] IN URINE BY TEST STRIP MODERATE 06/09 H Specimen Type: URINE No comment entered. Ordering Provider: ELLE FERNANDES [facility] Report Released Date/Time: Jun 09, 2023 07:28 AM Reporting Lab: [address] [address] Performing Lab: [address] [address] [facility] URINALYS IS WITH REFLEX TO CULTURE SPECIFIC GRAVITY OF URINE 1.026 1.005 - 1.030 06/09 Specimen Type: URINE No comment entered. Ordering Provider: ELLE FERNANDES [facility] Report Released Date/Time: Jun 09, 2023 07:28 AM Reporting Lab: [address] [address] Performing Lab: [address] [address] [facility] URINALYS IS WITH REFLEX TO CULTURE GLUCOSE [MASS/VOLU ME] IN URINE BY TEST STRIP Negative mg/dL 06/09 Specimen Type: URINE No comment entered. Ordering Provider: ELLE FERNANDES [facility] Report Released Date/Time: Jun 09, 2023 07:28 AM Reporting Lab: [address] [address] Performing Lab: [address] [address] [facility] URINALYS IS WITH REFLEX TO CULTURE ERYTHROCYT ES [#/AREA] IN URINE SEDIMENT BY AUTOMATED COUNT 34 /[HPF] 0 - 3 06/09 H Specimen Type: URINE No comment entered. Ordering Provider: ELLE FERNANDES [facility] Report Released Date/Time: Jun 09, 2023 07:28 AM Reporting Lab: [address] [address] Performing Lab: [address] [address] [facility] URINALYS IS WITH REFLEX TO CULTURE LEUKOCYTES [#/AREA] IN URINE SEDIMENT BY AUTOMATED COUNT 30 /[HPF] 0 - 3 06/09 H Specimen Type: URINE No comment entered. Ordering Provider: ELLE FERNANDES [facility] Report Released Date/Time: Jun 09, 2023 07:28 AM Reporting Lab: [address] [address] Performing Lab: [address] [address] [facility] URINALYS IS WITH REFLEX TO CULTURE MUCUS [PRESENCE] IN URINE BY AUTOMATED Trace/[L PF] 06/09 H Specimen Type: URINE No comment entered. Ordering Provider: ELLE FERNANDES [facility] Report Released Date/Time: Jun 09, 2023 07:28 AM Reporting Lab: [address] [address] Performing Lab: [address] [address] [facility] WITH REFLEX TO CULTURE EPITHELIAL CELLS.SQUA MOUS [#/AREA] IN URINE SEDIMENT BY AUTOMATED COUNT 16 /[LPF] 0 - 28 06/09 Specimen Type: URINE No comment entered. Ordering Provider: ELLE FERNANDES [facility] Report Released Date/Time: Jun 09, 2023 07:28 AM Reporting Lab: [address] [id number] Performing Lab: [address] [address] [facility] WITH REFLEX TO CULTURE HYALINE CASTS [#/AREA] IN URINE SEDIMENT BY AUTOMATED COUNT 3 /[LPF] 0 - 2 06/09 H Specimen Type: URINE No comment entered. Ordering Provider: ELLE FERNANDES [facility] F Report Released Date/Time: Jun 09, 2023 07:28 AM Reporting Lab: [address] [phone] Performing Lab: [address] [address] [facility] WITH REFLEX TO CULTURE GRANULAR CASTS [#/AREA] IN URINE BY COMPUTER ASSISTED METHOD 3 /[LPF] 06/09 H Specimen Type: URINE No comment entered. Ordering Provider: ELLE FERNANDES [facility] F Report Released Date/Time: Jun 09, 2023 07:28 AM Reporting Lab: [address] [phone] Performing Lab: [address] [address] [facility] URINALYS IS WITH REFLEX TO CULTURE CALCIUM OXALATE CRYSTALS [PRESENCE] IN URINE BY COMPUTER ASSISTED METHOD OCCASION AL/[HPF] 06/09 H Specimen Type: URINE No comment entered. Ordering Provider: ELLE FERNANDES Report Released Date/Time: Jun 09, 2023 07:28 AM Reporting Lab: [facility] [address] [address] Performing Lab: LED[facility] [address] [address] [facility] Vital Signs Combined list of inpatient and outpatient Vital Signs from Department of Defense and Veterans Affairs, ranging from 12 months to all on record, depending upon the facility. Vital Sign Value Date Comments Source SYSTOLIC BLOOD PRESSURE 130 11/27/2024 13:30:00 [facility] DIASTOLIC BLOOD PRESSURE 70 11/27/2024 13:30:00 [facility] PAIN 99 11/27/2024 13:30:00 [facility] [facility] TEMPERATURE 98.2 11/27/2024 13:30:00 [facility] PULSE 78 11/27/2024 13:30:00 [place] [facility] RESPIRATION 16 11/27/2024 13:30:00 [facility] SYSTOLIC BLOOD PRESSURE 167 11/20/2024 14:19:00 [facility] DIASTOLIC BLOOD PRESSURE 104 11/20/2024 14:19:00 [place] [facility] PAIN 4 11/20/2024 14:19:00 [place] [facility] TEMPERATURE 98.8 11/20/2024 14:19:00 [facility] [facility] PULSE 92 11/20/2024 14:19:00 [place] [facility] RESPIRATION 12 11/20/2024 14:19:00 [facility] SYSTOLIC BLOOD PRESSURE 118 11/14/2024 09:15:00 [facility] DIASTOL[facility] BLOOD PRESSURE 66 11/14/2024 09:15:00 [facility] 0 11/14/2024 09:15:00 [place] [facility] TEMPERATURE 98.5 11/14/2024 09:15:00 [facility] [facility] PULSE 62 11/14/2024 09:15:00 [place] [facility] RESPIRATION 16 11/14/2024 09:15:00 [place] [facility] SYSTOLIC BLOOD PRESSURE 110 11/06/2024 14:00:00 [place] [facility] DIASTOLIC BLOOD PRESSURE 58 11/06/2024 14:00:00 [place] [facility] PAIN 3 11/06/2024 14:00:00 [place] [facility] TEMPERATURE 98.2 11/06/2024 14:00:00 [facility] [facility] PULSE 54 11/06/2024 14:00:00 [place] [facility] RESPIRATION 16 11/06/2024 14:00:00 [place] [facility] SYSTOLIC BLOOD PRESSURE 132 10/12/2024 13:20:00 [place] [facility] DIASTOLIC BLOOD PRESSURE 72 10/12/2024 13:20:00 [place] [facility] PAIN 99 10/12/2024 13:20:00 [place] [facility] TEMPERATURE 98.2 10/12/2024 13:20:00 [place] PULSE 70 10/12/2024 13:20:00 [place] [facility] RESPIRATION 16 10/12/2024 13:20:00 [place] [facility] Encounters Combined list of: 1) Encounters from Department of [facility] Affairs facilities going backup to the last 18 months, not all [place] inpatient encounters are included; 2) Encounters from the Department of Defense facilities going backup to 280 months. 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 FERNANDES,E DITH F 06/09 [place] [facility] -[facility] HHS/HOSPIC E OF RN EA 15 MIN [id number] Diagnos is: ICD-10- CM 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 FERNANDES,E DITH F 06/15 [place] [facility] -[facility] HHS/HOSPIC E OF RN EA 15 MIN [id number] Diagnos is: ICD-10- CM I10 Essenti al (primar y) hyperte nsion FERNANDES,E DITH F 06/26 [place] [facility] Outpatient Encounter [id number] 07/05 [place] [facility] HC PRO PHONE CALL 5-10 MIN [id number] [id number] Diagnos is: ICD-10- CM 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 IVAN GRIMES CCA L 07/05 [place] [facility] QNHP OL DIG ASSMT&MGMT 03-07 [id number] [id number] 27 Diagnos is: ICD-10- CM Z79.899 Other senior care (curren t) drug therapy MARQUES TAI I L 07/05 [place] [facility] Outpatient Encounter [id number] 39 07/11 [place] [facility] Outpatient Encounter [id number] Diagnos is: ICD-10- CM I10 Essenti al (primar y) hyperte COLT Osborne 07/11 [place] [facility] Outpatient Encounter [id number] VONDA VANEGAS 07/12 [place] [facility] CASE MANAGEMENT [id number] Diagnos is: ICD-10- CM Z87.898 Persona l history of other specifi ed conditi ons MISSY,CO NNIE D 07/20 [place] [facility] HHS/HOSPIC E OF RN EA 15 MIN [id number] Diagnos is: ICD-10- CM I10 Essenti al (primar y) hyperte dorina FERNANDES,Jose Guadalupe DITH F 07/20 [place] [facility] HHS/HOSPIC E OF RN EA 15 MIN [id number] [id number] Diagnos is: ICD-10- CM I10 Essenti al (primar y) hyperte dorina FERNANDES,E DITH F 08/03 [place] [facility] Outpatient Encounter [id number] 45 08/04 [place] [facility] Outpatient Encounter [id number] 08/04 [place] [facility] Outpatient Encounter [id number] 08/07 [place] [facility] HHS/HOSPIC E OF RN EA 15 MIN [id number] [id number] 77 Diagnos is: ICD-10- CM 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 DOME DITH F 08/17 [place] [facility] Outpatient Encounter [id number] Diagnos is: ICD-10- CM I10 Essenti al (primar y) hyperte JEFFY Daly K 08/22 [place] [facility] HHS/HOSPIC E OF RN EA 15 MIN 72609-6.59 [id number] 66 Diagnos is: ICD-10- CM 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 Jose Guadalupe FERNANDES DITH F 08/30 [place] [facility] Outpatient Encounter [id number] 09/14 [place] [facility] [place] HHS/HOSPIC E OF RN EA 15 MIN 56997-3.59 [id number] Diagnos is: ICD-10- CM I10 Essenti al (primar y) hypertjose guadalupe baptisteJose Guadalupe To DITH F 09/21 [place] [facility] QNHP OL DIG ASSMT&MGMT 11-20 [id number] [id number] Diagnos is: ICD-10- CM 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 MARQUES TAI 09/26 [place] [facility] Outpatient Encounter [id number] 10 10/03 [place] [facility] Outpatient Encounter [id number] Diagnos is: ICD-10- CM I10 Essenti al (primar y) hypertjoseg uadalupe cam COLT SHERIDAN K 10/03 [place] [facility] HHS/HOSPIC E OF RN EA 15 MIN [id number] [id number] Diagnos is: ICD-10- CM I10 Essenti al (primar y) hyperte Jose Guadalupe Warner DITH F 10/17 [place] [facility] Outpatient Encounter [id number] 10/18 [place] [facility] HC PRO PHONE CALL 11-20 MIN [id number] [id number] Diagnos is: ICD-10- CM Z87.898 Persona l history of other specifi ed conditi ons MISSY,CO NNIE D 10/18 [place] [facility] HHS/HOSPIC E OF RN EA 15 MIN [id number] [id number] 85 Diagnos is: ICD-10- CM I10 Essenti al (primar y) hyperte dorina FERNANDES,E DITH F 11/03 [place] [facility] HC PRO PHONE CALL 5-10 MIN [id number] [id number] 56 Diagnos is: ICD-10- CM Z87.898 Persona l history of other specifi ed conditi ons MISSY,CO NNIE D 11/23 [place] [facility] HHS/HOSPIC E OF RN EA 15 MIN [id number] [id number] 42 Diagnos is: ICD-10- CM I10 Essenti al (primar y) hyperte dorina FERNANDES,E DITH F 11/24 [place] [facility] Outpatient Encounter [id number] 11/28 [place] [facility] HC PRO PHONE CALL 5-10 MIN [id number] [id number] Diagnos is: ICD-10- CM Z87.898 Persona l history of other specifi ed conditi ons MISSY,CO NNIE D 12/04 [place] [facility] Outpatient Encounter [id number] MULUGETA URIARTE 12/05 [place] [facility] HC PRO PHONE CALL 5-10 MIN [id number] [id number] Diagnos is: ICD-10- CM N18.32 Chronic kidney disease , stage 3b MULUGETA URIARTE 12/05 [place] [facility] CASE MANAGEMENT [id number] [id number] Diagnos is: ICD-10- CM Z87.898 Persona l history of other specifi ed conditi ons MISSY,CO NNIE D 12/06 [place] [facility] HHS/HOSPIC E OF RN EA 15 MIN [id number] [id number] 56 Diagnos is: ICD-10- CM I10 Essenti al (primar y) hyperte Jose Guadalupe Warner 12/15 [place] [facility] QNHP OL DIG ASSMT&MGMT 03-07 [id number] 02 Diagnos is: ICD-10- CM 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 MARQUES TAI 12/20 [place] [facility] Outpatient Encounter [id number] Diagnos is: ICD-10- CM I10 Essenti al (primar y) hyperte ST TOMEKA Reinoso 12/26 [place] [facility] Outpatient Encounter [id number] 41 12/26 [place] [facility] COMPRE OPH EXAM EST PT 1/> [id number] Diagnos is: ICD-10- CM H25.813 Combine d forms of age-rel ated catarac t, bilater al HAIMAN,PHI LLIP K 12/27 [place] [facility] IMMUNIZATI ON ADMIN [id number] [id number] Diagnos is: ICD-10- CM I10 Essenti al (primar y) hyperte Jose Guadalupe Warner 01/11 [place] [facility] Outpatient Encounter [id number] 90 01/30 [place] [facility] HHS/HOSPIC E OF RN EA 15 MIN [id number] Diagnos is: ICD-10- CM 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 FERNANDES,E DITH F 02/01 [place] [facility] Outpatient Encounter [id number] 02/21 [place] [facility] OF RN EA 15 MIN [id number] [id number] Diagnos is: ICD-10- CM I10 Essenti al (primar y) hyperte nsion FERNANDES,E DITH F 02/22 [place] [facility] Outpatient Encounter [id number] Diagnos is: ICD-10- CM J06.9 Acute upper respira tory infecti on, unspeci fied JEFFY CARTER 02/28 [place] [facility] Outpatient Encounter [id number] 56 Diagnos is: ICD-10- CM I10 Essenti al (primar y) hyperte JEFFY Daly 02/28 [place] [facility] CASE MANAGEMENT [id number] Diagnos is: ICD-10- CM Z87.898 Persona l history of other specifi ed conditi ons MISSY,CO NNIE D 03/05 [place] [facility] HHS/HOSPIC E OF RN EA 15 MIN [id number] [id number] 25 Diagnos is: ICD-10- CM 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 FERNANDES,E DITH F 03/08 [place] [facility] QNHP OL DIG ASSMT&MGMT 11-20 [id number] [id number] 62 Diagnos is: ICD-10- CM Z79.899 Other senior care (curren t) drug therapy ABIDAMARQUES MCGRATH I L 03/14 [place] [facility] Outpatient Encounter [id number] Diagnos is: ICD-10- CM 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 CARLOS ALBERTO RANDOLPH SSA 03/20 [place] [facility] Outpatient Encounter [id number] 03/20 [place] [facility] Outpatient Encounter [id number] [id number] 63 03/21 [place] [facility] HHS/HOSPIC E OF RN EA 15 MIN [id number] Diagnos is: ICD-10- CM I10 Essenti al (primar y) hyperte Jose Guadalupe Warner DITH F 03/29 [place] [facility] Outpatient Encounter [id number] 01 04/23 [place] [facility] HHS/HOSPIC E OF RN EA 15 MIN [id number] [id number] 56 Diagnos is: ICD-10- CM I10 Essenti al (primar y) hyperte dorina FERNANDESJose Guadalupe DITH F 04/25 [place] [facility] PH1 ASSMT&MGMT NQHP 5-10 [id number] [id number] Diagnos is: ICD-10- CM I10 Essenti al (primar y) hyperte dorina FERNANDESJose Guadalupe DITH F 04/30 [place] [facility] PH1 ASSMT&MGMT NQHP 5-10 [id number] [id number] 52 Diagnos is: ICD-10- CM 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 Jose Guadalupe FERNANDES DITH F 04/30 [place] [facility] HHS/HOSPIC E OF RN EA 15 MIN [id number] Diagnos is: ICD-10- CM J06.9 Acute upper respira tory infecti on, unspeci fied Jose Guadalupe FERNANDES DITH F 05/01 [place] [facility] Outpatient Encounter [id number] 72 05/02 [place] [facility] Outpatient Encounter [id number] 05/02 [place] [facility] Outpatient Encounter [id number] [id number] 67 05/03 [place] [facility] HHS/HOSPIC E OF RN EA 15 MIN [id number] [id number] Diagnos is: ICD-10- CM 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 Jose Guadalupe FERNANDES DITH F 05/03 [place] [facility] PH1 ASSMT&MGMT NQHP 5-10 [id number] [id number] Diagnos is: ICD-10- CM Z74.2 Need for assist at home and no house memb able to render care MULUGETA URIARTE 05/09 [place] [facility] MED NUTRITION INDIV SUBSEQ [id number] [id number] 52 Diagnos is: ICD-10- CM 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 LILIYA Bansal 05/16 [place] [facility] Outpatient Encounter [id number] [id number] 12 05/18 [place] [facility] HHS/HOSPIC E OF RN EA 15 MIN [id number] [id number] 13 Diagnos is: ICD-10- CM I10 Essenti al (primar y) hyperte dorina FRENANDES,E DITH F 05/23 [place] [facility] Outpatient Encounter [id number] 24 06/06 [place] [facility] PH1 ASSMT&MGMT NQHP 5-10 [id number] [id number] 08 Diagnos is: ICD-10- CM I10 Essenti al (primar y) hyperte dorina FERNANDES,E DITH F 06/06 [place] [facility] Outpatient Encounter [id number] 06/07 [place] [facility] [place] [id number] [id number] 77 Diagnos is: ICD-10- CM M17.9 Osteoar thritis of knee, unspeci fied Jose Guadalupe FERNANDES DITH F 06/07 [place] [facility] DIG ASSMT&MGMT 11-20 [id number] [id number] 67 Diagnos is: ICD-10- CM Z79.899 Other senior care (curren t) drug therapy MARQUES TAI 06/08 [place] [facility] NQHP OL DIG ASSMT&MGMT 21+ [id number] [id number] 42 Diagnos is: ICD-10- CM Z79.899 Other senior care (curren t) drug therapy MARQUES TAI I L 06/08 [place] [facility] Outpatient Encounter [id number] [id number] 79 06/12 [place] [facility] Outpatient Encounter [id number] [id number] Diagnos is: ICD-10- CM 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 RANDOLPHCARLOS ALBERTO PERES SSA 06/12 [place] [facility] Outpatient Encounter [id number] 06/13 [place] [facility] HHS/HOSPIC E OF RN EA 15 MIN [id number] [id number] 72 Diagnos is: ICD-10- CM I10 Essenti al (primar y) hyperte Jose Guadalupe Warner DITH F 06/18 [place] [facility] HHS/HOSPIC E OF RN EA 15 MIN [id number] [id number] 00 Diagnos is: ICD-10- CM I10 Essenti al (primar y) hyperte Jose Guadalupe Warner DITH F 06/20 [place] [facility] Outpatient Encounter [id number] [id number] 10 06/21 [place] [facility] Outpatient Encounter [id number] 06/22 [place] [facility] HLTH BHV IVNTJ INDIV 1ST 30 [id number] [id number] 11 Diagnos is: ICD-10- CM 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 MISSY,CO NNIE D 07/02 [place] [facility] HHS/HOSPIC E OF RN EA 15 MIN [id number] [id number] 82 Diagnos is: ICD-10- CM I10 Essenti al (primar y) hyperte Jose Guadalupe Warner DITH F 07/06 [place] [facility] MED NUTRITION INDIV SUBSEQ [id number] [id number] Diagnos is: ICD-10- CM 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 itLILIYA Meier C 07/18 [place] [facility] [place] [facility] HHS/HOSPIC E OF RN EA 15 MIN [id number] [id number] Diagnos is: ICD-10- CM 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 FERNANDES,E DITH F 07/19 [place] [facility] PH1 ASSMT&MGMT NQHP 5-10 [id number] [id number] 07 Diagnos is: ICD-10- CM Z74.1 Need for assista nce with SU Infante D 07/19 [place] [facility] Outpatient Encounter [id number] 07/19 [place] [facility] HHS/HOSPIC E OF RN EA 15 MIN [id number] [id number] 25 Diagnos is: ICD-10- CM I10 Essenti al (primar y) hyperte nsion FERNANDES,E DITH F 07/23 [place] [facility] Outpatient Encounter [id number] [id number] 57 07/27 [place] [facility] [place] [facility] Outpatient Encounter [id number] [id number] 26 07/30 [place] [facility] [place] [facility] HHS/HOSPIC E OF RN EA 15 MIN [id number] [id number] Diagnos is: ICD-10- CM 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 FERNANDES,E DITH F 07/31 [place] [facility] [place] [facility] Outpatient Encounter [id number] [id number] 44 07/31 [place] [facility] CASE MANAGEMENT [id number] [id number] 01 Diagnos is: ICD-10- CM Z74.1 Need for assista nce with persona l SU Philip D 07/31 [place] [facility] Outpatient Encounter [id number] MULUGETA URIARTE STARKS S 07/31 [place] [facility] Outpatient Encounter [id number] 08/01 [place] [facility] Outpatient Encounter [id number] 08/01 [place] [facility] HHS/HOSPIC E OF RN EA 15 MIN [id number] Diagnos is: ICD-10- CM 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 FERNANDES,E DITH F 08/02 [place] [facility] Outpatient Encounter [id number] 08/14 [place] [facility] HHCP-SERV OF PT,EA 15 MIN [id number] Diagnos is: ICD-10- CM G45.9 Transie nt cerebra l ischemi c attack, unspeci fied DUMONT,S TEVEN A 08/15 [place] [facility] HHS/HOSPIC E OF RN EA 15 MIN [id number] Diagnos is: ICD-10- CM I10 Essenti al (primar y) hyperte nsion DOM,E DITH F 08/16 [place] [facility] HHS/HOSPIC E OF RN EA 15 MIN [id number] Diagnos is: ICD-10- CM I10 Essenti al (primar y) hyperte nsmaurice Jose Guadalupe FERNANDES DITH F 08/27 [place] [facility] NQHP OL DIG ASSMT&MGMT 21+ [id number] [id number] 59 Diagnos is: ICD-10- CM Z79.899 Other senior care (curren t) drug therapy MARQUES TAI 08/29 [place] [facility] Outpatient Encounter [id number] 09/03 [place] [facility] Outpatient Encounter [id number] 09/04 [place] [facility] Outpatient Encounter [id number] Diagnos is: ICD-10- CM I10 Essenti al (primar y) hyperte CARLOS ALBERTO Gallo SSA 09/04 [place] [facility] PH1 ASSMT&MGMT NQHP 21-30 [id number] Diagnos is: ICD-10- CM I10 Essenti al (primar y) hyperte dorina Sandy DUMONT TEVEN A 09/04 [place] [facility] HHS/HOSPIC E OF RN EA 15 MIN [id number] Diagnos is: ICD-10- CM K59.00 Constip ation, unspeci fied Jose Guadalupe FERNANDES DITH F 09/18 [place] [facility] Outpatient Encounter [id number] 09/19 [place] [facility] MED NUTRITION INDIV SUBSEQ [id number] Diagnos is: ICD-10- CM 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 bobby AVILALILIYA NevarezANY C 09/20 [place] [facility] HHS/HOSPIC E OF RN EA 15 MIN [id number] Diagnos is: ICD-10- CM I10 Essenti al (primar y) hyperte dorina FERNANDES,E DITH F 10/12 [place] [facility] CASE MANAGEMENT [id number] Diagnos is: ICD-10- CM Z65.9 Problem related to unspeci fied psychos ocial circums tariq [place] D 10/18 [place] [facility] Outpatient Encounter [id number] 10/29 [place] [facility] PH1 ASSMT&MGMT NQHP 5-10 [id number] Diagnos is: ICD-10- CM Z65.9 Problem related to unspeci fied psychos ocial circums tariq [place] D 10/29 [place] [facility] HHS/HOSPIC E OF RN EA 15 MIN [id number] 01 Diagnos is: ICD-10- CM I10 Essenti al (primar y) hyperte dorina FERNANDES,E DITH F 11/06 [place] [facility] [place] [facility] Outpatient Encounter [id number] 11/07 [place] [facility] NQHP OL DIG ASSMT&MGMT 21+ [id number] Diagnos is: ICD-10- CM 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 MARQUES TAI I L 11/08 [place] [facility] [place] [facility] HHS/HOSPIC E OF RN EA 15 MIN 37242-5.59 [id number] Diagnos is: ICD-10- CM 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 FERNANDES,E DITH F 11/14 [place] [facility] Outpatient Encounter [id number] Diagnos is: ICD-10- CM I48.91 Unspeci fied atrial fibrill ation EMMA,JEFFY BRUNO K 11/15 [place] [facility] Outpatient Encounter [id number] 11/16 [place] [facility] MOD MDM [id number] Diagnos is: ICD-10- CM R33.9 Retenti on of urine, unspeci fied TABARES,MAT THEW E 11/20 [place] [facility] PH1 ASSMT&MGMT NQHP 5-10 [id number] Diagnos is: ICD-10- CM 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 FERNANDES,E DITH F 11/21 [place] [facility] Out[facility] Encounter [id number] 11/27 [place] [facility]HOSP[facility] E OF RN EA 15 MIN [id number] Diagnos is: ICD-10- CM 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 FERNANDES,E DITH F 11/27 [place] [facility] Social History Combined list of available smoking, tobacco, and other social history from [facility] and [facility] facilities. Social History Type Response Date Comment Sourc e Tobacco smoking status [facility] NEVER USED 10/18/2023 [facility] History of tobacco use [place]-TO[place] NEVER USED 10/21/2022 [facility] History of tobacco use [place]-TOBACCO NEVER USED 07/23/2021 [facility] of [facility]2020 [facility] Y[facility] OR MORE 09/20/2018 [facility] History of tobacco use V9 QUIT TOBACCO >7 YEARS AGO 11/14/2017 [facility] History of tobacco use V9 LIFETIME NON-USER OF TOBACCO 08/05/2016 [facility] History of tobacco use V9 QUIT TOBACCO >7 YEARS AGO 01/23/2015 [facility] History of tobacco use V9 QUIT TOBACCO >7 YEARS AGO 01/23/2014 [facility] History of tobacco use V9 QUIT TOBACCO >7 YEARS AGO 11/22/2012 [facility] History of tobacco use V9 QUIT TOBACCO >7 YEARS AGO 09/27/2011 [facility] History of tobacco use V9 QUIT TOBACCO >7 YEARS AGO 09/10/2010 [facility] History of tobacco use V9 QUIT TOBACCO >7 YEARS AGO 11/11/2009 [facility] History of tobacco use V9 QUIT TOBACCO >7 YEARS AGO 07/07/2006 [facility] History of tobacco use HF V9 CURRENT NON-SMOKER 07/07/2005 [facility] History of tobacco use HF V9 LIFETIME NON-SMOKER 01/16/2004 [facility] History of tobacco use HF V9 CURRENT NON-SMOKER 01/14/2003 [facility] History of tobacco use HF V9 CURRENT NON-SMOKER 11/01/2001 [facility] History of tobacco use HF V9 CURRENT NON-SMOKER 09/19/2000 quit 1982 [facility] Advance Directives List of completed, amended, or rescinded Advance Directives on record at [facility] of [facility] facilities. An actual copy of the Directive is not included. Date Advance Directive Provider Source 02/02/2021 [facility]VANCE DIRECTIVE DISCUSSION VANE DAWKINS [facility] 02/13/2020 [facility] DIRECTIVE DISCUSSION VANE DAWKINS [facility]
--- NOTE | 2024-11-29 20:25 | CT_ITS ---
PROCEDURE INFORMATION: Exam: CT Abdomen And Pelvis With Contrast Exam date and time: 11/29/2024 9:31 PM Age: 89 years old Clinical indication: Other: AMS TECHNIQUE: Imaging protocol: Computed tomography of the abdomen and pelvis with contrast. 3D rendering (Not supervised by radiologist): MIP and/or 3D reconstructed images were created by the technologist. Radiation optimization: All CT scans at this facility use at least one of these dose optimization techniques: automated exposure control; mA and/or kV adjustment per patient size (includes targeted exams where dose is matched to clinical indication); or iterative reconstruction. Contrast material: ISOVUE; Contrast volume: 80 ml; Contrast route: IV; COMPARISON: CT ABDOMEN PELVIS WO CON 09/17/2024 10:44 AM FINDINGS: Lungs: Compressive atelectasis of the lungs. Pleural spaces: Moderate bilateral pleural effusions are present. Liver: Normal. No mass. Gallbladder and biliary ducts: Normal. No calcified stones. No ductal dilation. Pancreas: Normal. No ductal dilation. Spleen: Normal. No splenomegaly. Adrenal glands: Normal. No mass. Kidneys and ureters: Multiple Bosniak 1 renal cystic lesions defined as homogeneous and fluid density (-9 to 20 HU), no septations or calcifications, having agarwal smooth and thin. Largest cyst measures 9.9 cm. No follow-up recommended. Stomach and bowel: Unremarkable. No obstruction. No mucosal thickening. Appendix: No evidence of appendicitis. Intraperitoneal space: Unremarkable. No free air. No significant fluid collection. Vasculature: Moderate calcific atherosclerotic disease of the abdominal aorta without aneurysmal dilatation is present. Lymph nodes: Unremarkable. No enlarged lymph nodes. Urinary bladder: Benjamin catheter terminates within the bladder. Inflammatory stranding of the urinary bladder wall favors cystitis. Reproductive: Unremarkable as visualized. Bones/joints: Moderate loss of intervertebral disc space with degenerative changes involving lower thoracic and lumbar spine greatest from L4 through S1. Soft tissues: Normal. IMPRESSION: 1. Moderate bilateral pleural effusions with compressive atelectasis. 2. Inflammatory stranding of the urinary bladder wall favors cystitis. COMMENTS: Consistent with the [employer]'s Incidental Findings Committee white paper (J Am Jimmie Radiol 2018): Any incidental renal lesion less than 1 cm or classified as too small to characterize, or any incidental cystic renal lesion characterized as simple-appearing, is likely benign. No follow-up imaging is recommended for these lesions per consensus recommendations based on imaging criteria.
--- NOTE | 2024-11-29 20:25 | CT_ITS ---
PROCEDURE INFORMATION: Exam: CTA Chest With Contrast Exam date and time: 11/29/2024 9:31 PM Age: 89 years old Clinical indication: Other: AMS TECHNIQUE: Imaging protocol: Computed tomographic angiography of the chest with contrast. Exam focused on the arteries. 3D rendering (Not supervised by radiologist): MIP and/or 3D reconstructed images were created by the technologist. Radiation optimization: All CT scans at this facility use at least one of these dose optimization techniques: automated exposure control; mA and/or kV adjustment per patient size (includes targeted exams where dose is matched to clinical indication); or iterative reconstruction. Contrast material: ISOVUE; Contrast volume: 80 ml; Contrast route: INTRAVENOUS (IV); COMPARISON: CR XR CHEST PORTABLE 06/06/2024 9:56 AM FINDINGS: Pulmonary arteries: Filling defects involving the superior segment right lower lobe pulmonary arteries compatible with pulmonary embolism. Aorta: Unremarkable. No aortic aneurysm. No aortic dissection. Lungs: Compressive atelectasis of the lungs. Pleural spaces: Moderate bilateral pleural effusions are present. Heart: Unremarkable. No cardiomegaly. No pericardial effusion. Lymph nodes: Unremarkable. No enlarged lymph nodes. Bones/joints: Unremarkable. No acute fracture. Soft tissues: Unremarkable. Other findings: Motion artifacts slightly limits sensitivity and specificity of the examination. IMPRESSION: 1. Filling defects involving the superior segment right lower lobe pulmonary arteries compatible with pulmonary embolism. RV/LV = 0.9. No evidence of right heart strain. 2. Moderate bilateral pleural effusions with compressive atelectasis. 3. Motion artifacts slightly limits sensitivity and specificity of the examination.
--- NOTE | 2024-11-29 20:25 | CT_ITS ---
PROCEDURE INFORMATION: Exam: CT Head Without Contrast Exam date and time: 11/29/2024 9:24 PM Age: 89 years old Clinical indication: Altered mental status/memory loss; Additional info: AMS TECHNIQUE: Imaging protocol: Computed tomography of the head without contrast. Radiation optimization: All CT scans at this facility use at least one of these dose optimization techniques: automated exposure control; mA and/or kV adjustment per patient size (includes targeted exams where dose is matched to clinical indication); or iterative reconstruction. COMPARISON: CT ANGIO HEAD 10/26/2024 4:44 PM FINDINGS: Brain: Right frontal encephalomalacia likely related to prior ischemic event. There is moderate diffuse cerebral volume loss present. Multiple subcortical and deep hypoattenuating white matter foci are present, likely related to small vessel senescent changes and can also be seen with prior infectious / inflammatory insult, or prior traumatic events. No hyperattenuating foci are identified to suggest acute intracranial hemorrhage. Cerebral ventricles: No ventriculomegaly. Paranasal sinuses: Visualized sinuses are unremarkable. No fluid levels. Mastoid air cells: Visualized mastoid air cells are well aerated. Bones: Unremarkable. No acute fracture. Soft tissues: Unremarkable. IMPRESSION: 1. Multiple subcortical and deep hypoattenuating white matter foci are present, likely related to small vessel senescent changes and can also be seen with prior infectious / inflammatory insult, or prior traumatic events. 2. No hyperattenuating foci are identified to suggest acute intracranial hemorrhage.
--- NOTE | 2024-11-29 20:27 | CT_ITS ---
PROCEDURE INFORMATION: Exam: CTA Neck With Contrast Exam date and time: 11/29/2024 9:25 PM Age: 89 years old Clinical indication: Other: AMS TECHNIQUE: Imaging protocol: Computed tomographic angiography of the neck with contrast. Exam focused on the cervical segments of the vasculature. 3D rendering (Not supervised by radiologist): MIP and/or 3D reconstructed images were created by the technologist. Radiation optimization: All CT scans at this facility use at least one of these dose optimization techniques: automated exposure control; mA and/or kV adjustment per patient size (includes targeted exams where dose is matched to clinical indication); or iterative reconstruction. Contrast material: ISOVUE; Contrast volume: 80 ml; Contrast route: INTRAVENOUS (IV); COMPARISON: CT ANGIO NECK 10/26/2024 4:44 PM FINDINGS: Right common carotid artery: No stenosis. No dissection or occlusion. Right internal carotid artery: No stenosis of the extracranial segment. No dissection or occlusion. Right external carotid artery: No occlusion or stenosis of the origin. Left common carotid artery: No stenosis. No dissection or occlusion. Left internal carotid artery: No stenosis of the extracranial segment. No dissection or occlusion. Left external carotid artery: No occlusion or stenosis of the origin. Right vertebral artery: Moderate calcific atherosclerotic disease of the right vertebral artery at the foramen magnum resulting in moderate stenosis. Left vertebral artery: No stenosis. No dissection or occlusion. Soft tissues: Normal. No significant soft tissue swelling. Bones/joints: Moderate loss of intervertebral disc space with degenerative changes involving C3 through C7. 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 REFERENCES: NASCET CRITERIA. The degree of stenosis in the cervical segment of the internal carotid artery is based on NASCET criteria. Normal is no stenosis. Mild is less than 50% stenosis. Moderate is 50-69% stenosis. Severe is 70% to 99% stenosis. Total occlusion is no detectable patent lumen.
--- NOTE | 2024-11-29 20:27 | CT_ITS ---
PROCEDURE INFORMATION: Exam: CTA Head With Contrast, Arteriography Exam date and time: 11/29/2024 9:25 PM Age: 89 years old Clinical indication: Other: AMS TECHNIQUE: Imaging protocol: Computed tomographic angiography of the head with contrast. Exam focused on the arteries. 3D rendering (Not supervised by radiologist): MIP and/or 3D reconstructed images were created by the technologist. Radiation optimization: All CT scans at this facility use at least one of these dose optimization techniques: automated exposure control; mA and/or kV adjustment per patient size (includes targeted exams where dose is matched to clinical indication); or iterative reconstruction. 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 Right middle cerebral artery: No occlusion or significant stenosis. No aneurysm. Right anterior cerebral artery: No occlusion or significant stenosis. No aneurysm. Left internal carotid artery: Moderate calcific atherosclerotic disease of the left intracranial ICA resulting in moderate stenosis of the ophthalmic segment. Left middle cerebral artery: No occlusion or significant stenosis. No aneurysm. Left anterior cerebral artery: No occlusion or significant stenosis. No aneurysm. 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 Left vertebral artery: No occlusion or significant stenosis. No aneurysm. Basilar artery: No occlusion or significant stenosis. No aneurysm. Right posterior cerebral artery: No occlusion or significant stenosis. No aneurysm. Left posterior cerebral artery: No occlusion or significant stenosis. No aneurysm. Brain: No definite mass, mass effect, or midline shift. Cerebral ventricles: No ventriculomegaly. Bones/joints: Unremarkable. No acute fracture. Soft tissues: Unremarkable. IMPRESSION: 1. 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 2. Moderate calcific atherosclerotic disease of the left intracranial ICA resulting in moderate stenosis of the ophthalmic segment. 3. 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
--- NOTE | 2024-11-29 20:30 | HMH.EDGENADL ---
Discharge Plan Disposition Chief Complaint: Altered Mental Status Prescriptions Prescriptions: No Action polyethylene glycol 3350 [Miralax] 17 gram/dose powder 17 g PO DAILY PRN (Reason: constipation) Qty: 510 0RF sennosides 8.6 mg tablet 8.6 mg PO DAILY Qty: 30 0RF levofloxacin 750 mg tablet 750 mg PO DAILY 7 Days Qty: 7 0RF tamsulosin [Flomax] 0.4 mg Capsule 0.8 mg PO HS carvedilol 6.25 mg Tablet 6.25 mg PO BID Qty: 60 0RF potassium chloride 20 mEq Tablet,Er Particles/Crystals 20 meq PO DAILY Qty: 30 0RF amlodipine [Norvasc] 5 mg Tablet 5 mg PO DAILY Qty: 30 0RF aspirin 325 mg Tablet,Delayed Release (Dr/Ec) 325 mg PO DAILY Qty: 30 0RF finasteride [Proscar] 5 mg Tablet 5 mg PO DAILY Qty: 30 0RF diltiazem HCl 360 mg Tablet Extended Release 24 Hr 360 mg PO DAILY Qty: 30 0RF rosuvastatin [Crestor] 10 mg Tablet 5 mg PO HS Qty: 30 0RF diclofenac sodium 1 % Gel 2 g TOPICAL Q6HP PRN (Reason: Pain) Qty: 100 0RF Rx Instructions: apply to both knees as needed omeprazole 20 mg Tablet,Delayed Release (Dr/Ec) 40 mg PO BID MDD Acid rflux Qty: 30 0RF bisacodyl [Dulcolax (bisacodyl)] 10 mg suppository 10 mg CO DAILY PRN (Reason: constipation) Qty: 12 0RF amoxicillin-pot clavulanate 875-125 mg tablet 1 tab PO BID Qty: 20 0RF Referrals Follow up/Referrals: Provider,Referral, MD [Primary Care Provider, Medical] - See instructions Instructions Patient Instructions: DI for Altered Mental Status Print Language Print Language: Occitan Discharge ED Provider: Janis Brown Adult HPI General Chief complaint: Altered Mental Status Stated complaint: AMS Time Seen by Provider: 11/29/24 20:30 History of Present Illness HPI narrative: Patient is a 89-year-old gentleman with a past medical history of previous stroke who presented to the emergency department from home with altered mental status. Per EMS, patient lives at home alone, patient is frequently checked by his neighbor. They state that today they went to his home and patient was acting abnormally. They state that patient was pouring substances into his food and had abnormal behavior. The neighbor came back and the patient was still sitting in the same chair. Unknown last known normal. Patient had normal vital signs and route. Patient was not given any medications. Patient's [id number] glucose was normal by EMS. On arrival, patient was able to state his name but was unable to give me any further history. Patient denied any symptoms. Related Data Home Medications ?Medication ?Instructions ?Recorded ?Confirmed tamsulosin 0.4 mg capsule (Flomax) 0.8 mg PO HS Prostate 04/06/22 06/06/24 Previous Rx's ?Medication ?Instructions ?Recorded amlodipine 5 mg tablet (Norvasc) 5 mg PO DAILY Hypertension #30 tabs 04/08/22 aspirin 325 mg tablet,delayed 325 mg PO DAILY Heart health #30 04/08/22 release tabs carvedilol 6.25 mg tablet 6.25 mg PO BID #60 tabs 04/08/22 diclofenac sodium 1 % topical gel 2 g topical Q6HP PRN Pain #100 04/08/22 grams diltiazem HCl 360 mg 360 mg PO DAILY Hypertension #30 04/08/22 tablet,extended release 24 hr tabs finasteride 5 mg tablet (Proscar) 5 mg PO DAILY Prostate #30 tabs 04/08/22 omeprazole 20 mg tablet,delayed 40 mg (2 x 20 mg) PO BID Acid 04/08/22 release reflux #30 tabs potassium chloride 20 mEq 20 meq PO DAILY #30 tabs 04/08/22 tablet,extended release(part/cryst) rosuvastatin 10 mg tablet (Crestor) 5 mg (1/2 x 10 mg) PO HS 04/08/22 Cholesterol #30 tabs bisacodyl 10 mg rectal suppository 10 mg CO DAILY PRN constipation 03/06/23 (Dulcolax (bisacodyl)) #12 ea amoxicillin 875 mg-potassium 1 tab PO BID #20 tabs 06/06/24 clavulanate 125 mg tablet levofloxacin 750 mg tablet 750 mg PO DAILY 7 days #7 tabs 07/28/24 polyethylene glycol 3350 17 17 g PO DAILY PRN constipation 07/28/24 gram/dose oral powder (Miralax) #510 grams sennosides 8.6 mg tablet 8.6 mg PO DAILY #30 tabs 07/28/24 Allergies Allergy/AdvReac Type Severity Reaction Status Date / Time No Known Allergies Allergy Verified 06/06/24 10:17 [facility] Disclaimer: The information contained in this section may have been updated after the patient was seen, as this information can be updated by other users. Medical History UTI (urinary tract infection) BPH (benign prostatic hyperplasia) Social History Smoking Status: Unknown if ever smoked alcohol intake: former substance use type: denies use current occupational status: retired and other Travel in the last 8 weeks?: None household members: none housing: apartment Have you lived/traveled outside US in past 30 days?: No Contact w/someone who lives/traveled outside US past 30 days?: No Exposure to someone with infectious disease in past 14 days?: No Do you have a fever (greater than 100.4 F or 38 C)?: No Have you tested positive for COVID-19?: No Exposed to someone with COVID-19 in past 14 days?: No Do you have a sore throat?: No Do you have a cough?: No Do you have any weakness?: No Do you have any diarrhea?: No Are you experiencing any unusual bleeding?: No Do you have any muscle aches/pain?: No Do you have any abdominal pain?: No Are you experiencing loss of taste or smell?: No Other Medical History Have you received the Flu Vaccine for this season: No Have you received the Pneumonia Vaccine: No ROS Obtained: Yes All systems reviewed & no additional complaints except as documented and Yes Systems reviewed as appropriate & no additional complaints except as documented Physical Exam General General appearance: alert and in no apparent distress Head Head exam: atraumatic, normocephalic and normal inspection Eye Eye exam: Present normal appearance, PERRL and EOMI; Absent scleral icterus ENT ENT exam: Present normal exam and normal external ear exam Neck Neck exam: Present normal inspection and full ROM Chest Chest inspection: Present normal inspection and symmetric chest wall rise Respiratory Respiratory exam: Present normal lung sounds bilaterally; Absent respiratory distress or wheezes Cardiovascular Cardiovascular exam: Present regular rate, normal rhythm and normal heart sounds Abdominal Exam Abdominal exam: Present soft and distention; Absent tenderness, guarding or rebound Extremities Exam Extremities exam: Present normal inspection and full ROM Back Exam Back exam: Present normal inspection and full ROM Neurological Exam Neurological exam: Present alert and other (Alert and oriented x 1, nonfocal exam) Psychiatric Psychiatric exam: Present normal affect and normal mood Skin Skin exam: Present warm and dry Medical Decision Making Medical Records Screening: Per USPSTF and CDC recommendations, given the prevalence of disease in our region, it is our hospital?s policy to screen for HIV and viral Hepatitis for all patients aged 18 and over and those with ongoing risk factors. Reyes Inquiry Pt receiving controlled substance: No Vital Signs: 11/29/24 20:45 11/29/24 20:45 11/29/24 21:57 Temperature 98.2 F Temperature Source Oral Pulse Rate 111 H 99 H Pulse Rate [Right] 118 H Respiratory Rate 20 14 20 Blood Pressure 154/94 H 129/89 Blood Pressure [Right Arm] 150/101 H Blood Pressure Mean [Right Arm] 117 02 Sat by Pulse Oximetry 95 95 96 11/29/24 22:00 11/29/24 22:30 11/29/24 23:00 Temperature Temperature Source Pulse Rate 105 H 89 89 Pulse Rate [Right] Respiratory Rate 24 25 H 18 Blood Pressure 140/89 126/80 132/78 Blood Pressure [Right Arm] Blood Pressure Mean [Right Arm] 02 Sat by Pulse Oximetry 97 95 99 11/29/24 23:30 Temperature Temperature Source Pulse Rate Pulse Rate [Right] Respiratory Rate 18 Blood Pressure 123/84 Blood Pressure [Right Arm] Blood Pressure Mean [Right Arm] 02 Sat by Pulse Oximetry Lab Data Lab results reviewed: Yes I reviewed the patient's lab results. Lab Results 11/29/24 20:11: WBC 9.1, RBC 4.60, Hgb 13.3 L, Hct 36.2 L, MCV 78.7 L, MCH 28.9, MCHC 36.7 H, RDW 15.0, Plt Count 192, MPV 10.8 H, Neut % (Auto) 75.4, Lymph % (Auto) 10.5, Alexander % (Auto) 13.7 H, Eos % (Auto) 0.0 L, Baso % (Auto) 0.2, Neut # (Auto) 6.9, Lymph # (Auto) 1.0, Alexander # (Auto) 1.3 H, Eos # (Auto) 0.0, Baso # (Auto) 0.0, PT 12.6 H, INR 1.15 H, Sodium 140, Potassium 4.1, Chloride 109 H, Carbon Dioxide 25, Anion Gap 10.1, BUN 22 H, Creatinine 1.00, Estimated GFR 70, Est GFR ( Amer) 85, Glucose 150 H, Calcium 9.1, Phosphorus 2.4 L, Magnesium 2.1, Total Bilirubin 0.7, AST 24, ALT 30, Alkaline Phosphatase 97, Troponin I 0.05 H, Total Protein 7.4, Albumin 4.1, Globulin 3.3 H, Albumin/Globulin Ratio 1.2, Lipase 30, Plasma/Serum Alcohol < 10, HCV Ab CRISPIN w/Rflx PCR Qn Negative, HIV Ag/Ab Combo Qual Negative 11/29/24 21:03: Lactate 1.7 11/29/24 20:11 11/29/24 20:11 Orders (Tests/Meds): ED MEDICATIONS Generic Name Dose Route Start Last Admin Trade Name Freq PRN Reason Stop Dose Admin Enoxaparin Sodium 75 mg 11/29/24 23:45 Enoxaparin 100mg/Ml Syringe 1 mg/kg (75 mg) 12/29/24 23:44 SUBCUT Q12H MAKENZIE Sodium Chloride 10 ml 11/29/24 21:35 11/29/24 21:36 Sodium Chloride 0.9% 10ml Syr (Rad Only) IV 12/29/24 21:34 10 ml NEEDED PRN Administration Maintain IV Site Discontinued Medications Generic Name Dose Route Start Last Admin Trade Name Freq PRN Reason Stop Dose Admin Sodium Chloride 1,000 mls @ 999 mls/hr 11/29/24 21:32 11/29/24 21:48 Sod Chlor 0.9% 1000ml Bag IV 11/29/24 22:32 999 mls/hr .Q1H1M ONE Administration Cefepime HCl 2 gm/ Sodium 100 mls @ 200 mls/hr 11/29/24 21:32 11/29/24 21:48 Chloride IV 11/29/24 22:01 200 mls/hr ONCE ONE Administration Iopamidol 160 ml 11/29/24 21:35 11/29/24 21:36 Iopamidol-370 (76%);100ml Bottle IV 11/29/24 21:36 160 ml ONCE ONE Administration Sodium Chloride 100 ml 11/29/24 21:35 11/29/24 21:36 0.9 % Sodium Chloride 50 Ml Vial IV 11/29/24 21:36 100 ml ONCE ONE Administration ORDERS Category Date Time Status CT abdomen pelvis w con Stat Cat Scan 11/29/24 20:[address] angio chest PE protocol Stat Cat Scan 11/29/24 20:[address] angio head Stat Cat Scan 11/29/24 20:[address] angio neck Stat Cat Scan 11/29/24 20:[address] head/brain wo con Stat Cat Scan 11/29/24 20:25 Completed Blood alcohol [Ethyl Alcohol] Stat Lab 11/29/24 20:11 Completed CBC w/Auto Diff [Complete Blood Count Auto Diff] Stat Lab 11/29/24 20:11 Completed CMP [Comprehensive Metabolic Panel] Stat Lab 11/29/24 20:11 Completed HIV Combo Stat Lab 11/29/24 20:11 Completed Hepatitis C Ab Qual. W/ RFX Stat Lab 11/29/24 20:11 Completed Lactate Venous Stat Lab 11/29/24 20:22 Ordered Lactic Acid Stat Lab 11/29/24 21:03 Completed Lipase Stat Lab 11/29/24 20:11 Completed MAG [Magnesium] Stat Lab 11/29/24 20:11 Completed PHOS [Phosphorous] Stat Lab 11/29/24 20:11 Completed POC Glucose,Bedside Stat Lab 11/29/24 20:27 Ordered PT INR [Prothrombin Time INR] Stat Lab 11/29/24 20:11 Completed Trop I [Troponin I] Stat Lab 11/29/24 20:11 Completed Troponin I Q3H Lab 11/29/24 23:46 Received Troponin I Q3H Lab 11/30/24 02:30 Ordered UA [Urinalysis and Microscopic] Stat Lab 11/29/24 20:25 Ordered UDS [Drug Screen,Urine] Stat Lab 11/29/24 20:25 Ordered Blood Culture Stat Micro 11/29/24 21:15 Received Urine Culture Stat Micro 11/29/24 20:25 Ordered Medical Decision Narrative: Is an 89-year-old male with a past medical history of previous stroke presented to the emergency department with altered mental status from home. On arrival, patient was hemodynamically stable with unremarkable Eitel signs. Differential includes but not limited to: Intracranial pathology including stroke versus hemorrhage, pulmonary embolism, pneumonia, UTI, intra-abdominal process, electrolyte abnormalities, amongst others. On exam, patient was able to state his name, patient was alert and oriented x 1. Patient had a nonfocal exam. Patient did have a Benjamin catheter in place that looked grossly infected. Patient's labs were reviewed and interpreted by myself: CBC showed no leukocytosis, hemoglobin was stable. INR mildly elevated at 1.15. Troponin elevated at 0.05. Was unable to be obtained given the viscosity. Alcohol level less than 10. CT head, CTA head and neck, CT chest and CT abdomen were obtained. CT head CTA head and neck showed no acute pathology. CT abdomen showed concern for cystitis. CT chest showed concern for new pulmonary embolism no right heart strain. EKG showed A-fib with a rate of [address] or T wave changes concerning for ischemia. Here in the emergency department, patient was given IV fluids, patient was given IV cefepime given concern for urinary tract infection. Patient's new pulmonary embolism, patient was given Lovenox. Given that patient was and continued to be altered not at his baseline I felt the patient warranted admission. [facility] therefore patient was [facility] to their facility and was accepted by Dr. Guzman. Was transferred in stable condition. Critical Care Critical Care Time Critical Care Time: No
[2024-11-29 20:36] LABS: Hematocrit 36.2 % (42.0-52.0); Hemoglobin 13.3 g/dL (14.1-18.0); Immature Granulocytes % 0.2 %; Mean Corpuscular HGB Conc 36.7 g/dL (31.8-35.4); Mean Corpuscular Hemoglobin 28.9 pg (27.0-31.2); Mean Corpuscular Volume 78.7 fl (80-94); Nucleated Red Blood Cells % 0 %; Platelet Count 192 K/mm3 (142-424); Red Blood Count 4.60 M/mm3 (4.60-6.20); Red Cell Distribution Width-SD 42.7 fL; White Blood Count 9.1 K/mm3 (4.8-10.8)
--- NOTE | 2024-11-29 20:41 | ECG_ITS ---
APPROVED REPORT Exam: Resting ECG HR:120 bpm ECG Measurements Heart Rate 120 AXES QRSd 95 QRS 54 QT 136 T 0 QTc 208 Conclusion ATRIAL FIBRILLATION WITH RAPID VENTRICULAR RESPONSE NONSPECIFIC T-WAVE ABNORMALITY ABNORMAL RHYTHM ECG UNCONFIRMED REPORT Electronically signed by : MAXIMO DELANEY, 11/30/2024 00:35:48
[2024-11-29 20:43] LABS: INR 1.15 (0.9-1.1); Prothrombin Time 12.6 seconds (10.1-12.5)
[2024-11-29 20:45] VITALS: BP 150/101; BP 154/94; PULSE 111; PULSE 118; RESP 14; RESP 20; TEMP 36.8; O2SAT 95; BMI 24.3
[2024-11-29 20:46] LABS: Albumin Level 4.1 g/dl (3.5-5.0); Chloride 109 mmol/L (98-107); Potassium 4.1 mmoL/L (3.5-5.1); Sodium 140 mmol/L (136-145)
[2024-11-29 20:48] LABS: Lipase 30 U/L (23-300)
[2024-11-29 20:49] LABS: Alanine Aminotransferase 30 U/L (12-78); Albumin/Globulin Ratio 1.2 (1.1-1.8); Alkaline Phosphatase 97 U/L (38-126); Anion Gap 10.1 mEq/L (5-15); Aspartate Amino Transferase 24 U/L (17-59); Bilirubin,Total 0.7 mg/dl (0.2-1.3); Blood Urea Nitrogen 22 mg/dl (9-20); Calcium 9.1 mg/dl (8.4-10.2); Carbon Dioxide 25 mmol/L (22.0-30.0); Creatinine,Serum 1.00 mg/dl (0.66-1.25); Estimated Glomerular Filt Rate 70 ml/min (>60); GFR (African American) 85 ML/MIN (>60); Globulin 3.3 g/dL (1.3-3.2); Glucose 150 mg/dl (74-100); Phosphorous 2.4 mg/dl (2.5-4.5); Total Protein,Serum 7.4 g/dl (6.3-8.2)
[2024-11-29 20:50] LABS: Magnesium 2.1 mg/dl (1.6-2.3)
--- OUTSIDE RECORDS SUMMARY | 2024-11-29 20:55 | XMS_ITS | Encounter Summary ---
Author Organization [facility] Address [address] [place] [address] Care Team Providers Care Family And Consumer Science Professor Name Role Phone Provider, No Known Primary Care Provider Unavail able Encounter Details Date Type Department Care Team (Late st Contact Info) Description 11/09/2024 Readmission Management [facility] [address] [place] [phone] Isabel Sal RN Social History Tobacco Use Types Packs/Day Years Used Date Smoking Tobacco: Never Assessed [facility] Utilities Answer Date Recorded In the past 12 months has th [employer] electric, gas, oil, or water [employer] threatened to shut off services in your [...] at Home or Work/School Not on file 10 / Feels Threatened by Someone? Not on file [...] GED or equivalent No 10/29/2024 Preferred Language Burundian 10/29/2024 Sex and Gender Information Value Date Recorded Sex Assigned at Not on file Legal Sex Male 4:14 PM EDT Gender Identity Not on file Sexual Orientation Not on file documented as of this encounter Miscellaneous Notes * Outreach Note - Isabel Sal RN - 11/09/2024 12:15 PM EDT Medical Week 1 Survey Flowsheet Row [facility] Does the patient have one of the following disease processes/diagnoses(primary or secondary)? Other Week 1 attempt successful? Yes Call start time 1217 Call end time 1226 Discharge diagnosis Stroke-like symptoms Is patient permission given to speak with other caregiver? Yes List who call center can speak with Saranya Person spoke with today (if not patient) and relationship Saranya Medication alerts for this patient RN organizes pt's meds for the pt but he takes them daily. Does the patient have a primary care provider? Yes Does the patient have an appointment with their PCP within 7 days of discharge? No Comments regarding PCP PCP is with [facility], per dtr the nurse case advocate from [facility] is working on all the f/uappts for the pt at [facility] What is the Home health agency? HH comes thru [facility] to pt's home. Has home health visited the patient within 72 hours of discharge? Yes Comments Per patient's dtr, the pt has a helper that comes into the home on Tuesday, , Tue and the daughter comes to help on .Pt is not at baseline dementia at this time but has improved. Thedaughter reports that the pt typically is able to take his meds correctly as they are marked morning/evening, however yesterday he took all the meds in the morning. Per daughter, the pt has no other deficits. Did the patient receive a copy of their discharge instructions? Yes Nursing interventions Reviewed instructions with patient What is the patient's perception of their health status since discharge? Improving Is the patient/caregiver able to teach back the hierarchy of who to call/visit for symptoms/problems? PCP, Specialist, Home health nurse, Urgent Care, ED, 911 Yes If the patient is a current smoker, are they able to teach back resources for cessation? Not a smoker Week 1 call completed? Yes Call end time 1226 Isabel Stark - Registered Nurse documented in this encounter Plan of Treatment Upcoming Encounters Date Type Department Care Team (Late st Contact Info) Description 12/26/2024 11:30 AM EDT Office Visit [facility]ARDIOLOGY [address] [phone] Clark Lopez MD [address] [facility] [address] [place] [address] documented as of this encounter Visit Diagnoses Not on filedocumented in this encounter Care Teams Family And Consumer Science Professor Relationship Specialty Start Date End Date Provider, [place] [address] PCP - General 10/26/24 documented as of this encounter
--- OUTSIDE RECORDS SUMMARY | 2024-11-29 20:55 | XMS_ITS | Encounter Summary ---
[facility] Address [address] [place] [address] Care Team Providers Care Seo Associate Name Role Phone Provider, No Known Primary Care Provider Unavail able Encounter Details Date Type Department Care Team (Latest Contact Info) Description 10/26/2024 Travel Social History Tobacco Use Types Packs/Day Years Used Date Smoking Tobacco: Never Assessed Abuse Screen Answer Date Recorded Unsafe at Home or Work/School Not on file Feels Threatened by Someone? Not on file Does Anyone Keep You from Co ntacting Others or Doint Things Outside the Home? Not on file 01/28/2023 Physical Sign of Abuse Present Not on file 1 Housing Stability Answer Date Recorded Current Living Arrangements Not on file 01/16 Potentially Unsafe Housing Conditions Not on liliana e 01/28/2023 Family and Community Support Answer Manuel e Recorded Help with Day-to-Day Activities Not on file 01/28/2023 Lonely or Isolated Not on file 01/28/2023 Employment Answer Date Recorded Do you want help finding or keeping work or a pavel b? Not on file 01/28/2023 Disabilities Answer Date Recorded Concentrating, Remembering, or Making Decisions Difficulty Not on file 01/28/2023 Doing Errands Independently Difficulty Not on fi le 01/28/2023 Education Answer Date Recorded Help with school or training? Not on file Preferred Language Not on file 01/28/2023 Sex and Gender Information Value Date Recorded Sex Assigned at Not on file Legal Sex Male 4:14 PM EDT Gender Identity Not on file Sexual Orientation Not on file documented as of this encounter Plan of Treatment Upcoming Encounters Date Type Department Care Team (Late st Contact Info) Description 12/26/2024 11:30 AM EDT Office Visit [facility] CARDIOLOGY [address] [facility] [address] [place] [phone] Clark Lopez MD [address] [facility] [address] [place] [address] documented as of this encounter Visit Diagnoses Not on filedocumented in this encounter Care Teams Seo Associate Relationship Specialty Start Date End Date Provider, [place] [address] PCP - General 10/26/24 documented as of this encounter
--- OUTSIDE RECORDS SUMMARY | 2024-11-29 20:55 | XMS_ITS | Encounter Summary ---
[facility] Address [address] [place] [address] Care Team Providers Care Property Claim Rep Name Role Phone Provider, No Known Primary Care Provider Unavail able Encounter Details Date Type Department Care Team (Late st Contact Info) Description 11/02/2024 Readmission Management [facility] NURSE CALL CENTER [address] [place] [phone] Shweta German, RN Social History Tobacco Use Types Packs/Day Years Used Date Smoking Tobacco: Never Assessed [facility] Utilities Answer Date Recorded In the past 12 months has [employer] electric, gas, oil, or water company threatened [...] GED or equivalent No 10/29/2024 Preferred Language Slovak 10/29/2024 Sex and Gender Information Value Date Recorded Sex Assigned at Not on file Legal Sex Male 4:14 PM EDT Gender Identity Not on file Sexual Orientation Not on file documented as of this encounter Miscellaneous Notes * Outreach Note - Shweta German RN - 11/02/2024 7:52 PM EDT Prep Survey Flowsheet Row Responses [facility] Is LACE score < 7 ? No Eligibility Readm Mgmt Discharge diagnosis Stroke-like symptoms Does the patient have one of the following disease processes/diagnoses(primary or secondary)? Other Prep survey completed? Yes Shweta Sorenson - Registered Nurse documented in this encounter Plan of Treatment Upcoming Encounters Date Type Department Care Team (Late st Contact Info) Description 12/26/2024 11:30 AM EDT Office Visit [facility] CARDIOLOGY [address] [place] [address] [address] [place] [phone] Clark Lopez MD [address] [facility] [address] [place] [address] documented as of this encounter Visit Diagnoses Not on filedocumented in this encounter Care Teams Property Claim Rep Relationship Specialty Start Date End Date Provider, [place] [address] PCP - General 10/26/24 documented as of this encounter
--- OUTSIDE RECORDS SUMMARY | 2024-11-29 20:56 | XMS_ITS | Encounter Summary ---
Author Name [facility] Organization [facility] Address [address] [place] [address] Care Team Providers Care Unit Assembler Name Role Phone LYSSA CARTER Primary Care [...] PART A Jul 17, 2000 PART A [id number] JESSICA ALVAREZ PATIENT MEDICARE (WNR) MEDICARE (M) PART B Jul 17, 2000 PART B [id number] JESSICA ALVAREZ PATIENT MEDICARE (WNR) MEDICARE (M) PART A Jul 17, 2000 PART A [id number] JESSICA ALVAREZ PATIENT MEDICARE (WNR) MEDICARE (M) PART B Jul 17, 2000 PART B [id number] JESSICA ALVAREZ PATIENT Selected Encounter This section includes the information on record at [place] for the Encounter. Date/Time Encounter Type Encounter Description Reason Pro vider Source IHE Encounter Template Text not used by [place] Advance Directives: All historical and current Section [...] 02, 2021 ADVANCE DIRECTIVE DISCUSSION [facility] Feb 13, 2020 ADVANCE DIRECTIVE DISCUSSION [facility]ANE [facility]
--- OUTSIDE RECORDS SUMMARY | 2024-11-29 20:56 | XMS_ITS | Clinical Summary ---
Author Organization [facility] Address [address] [place] [address] Care Team Providers Care Visual Display Manager Name Role Phone Provider, No Known Primary Care Provider Unavail able Allergies No known active allergies Medications tamsulosin (FLOMAX) 0.4 MG capsule 24 hr capsule Take 2 capsules by mouth Daily. Active carvedilol (COREG) 6.25 MG tablet Take 1 tablet by mouth 2 (Two) Times a Day With Meals. Active finasteride (PROSCAR) 5 MG tablet Take 1 tablet by mouth Daily. Active omeprazole (priLOSEC) 40 MG capsule Take 1 capsule by mouth 2 (Two) Times a Day. Active aspirin 81 MG chewable tablet Chew 1 tablet Daily 30 tablet 2 11/02/2024 11:18 AM EDT 5 02/01/20 25 Active atorvastatin (LIPITOR) 40 MG tablet Take 1 tablet by mouth Every Night 90 tablet 11/02/2024 11:18 AM EDT 5 02/01/20 25 Active losartan (COZAAR) 25 MG tablet Take 1 tablet by mouth Daily. 90 tablet 11/02/2024 11:18 AM EDT 5 Active amLODIPine (NORVASC) 5 MG tablet Take 1 tablet by mouth Daily. 11/03/19 25 Discontin ued(Stop Taking at Discharge ) aspirin 325 MG tablet Take 1 tablet by mouth Daily. 11/03/19 25 Discontin ued(Stop Taking at Discharge ) Diclofenac Sodium (VOLTAREN) 1 % gel gel Apply 4 g topically to the appropriate area as directed 4 (Four) Times a Day As Needed. 11/03/19 25 Discontin ued(Stop Taking at Discharge ) dilTIAZem CD (CARDIZEM CD) 180 MG 24 hr capsule Take 2 capsules by mouth Daily. 11/03/19 Discontin ued(Stop Taking at Discharge ) potassium chloride (MICRO-K) 10 MEQ CR capsule Take 2 capsules by mouth Daily. 11/03/19 Discontin ued(Stop Taking at Discharge ) rosuvastatin (CRESTOR) 10 MG tablet Take 1 tablet by mouth Every Night. 11/03/19 Discontin ued(Stop Taking at Discharge ) bisacodyl (DULCOLAX) 5 MG EC tablet Take 2 tablets by mouth Daily As Needed for Constipation. 11/03/19 Discontin ued(Stop Taking at Discharge ) amoxicillin-cl avulanate (AUGMENTIN) 875-125 MG per tablet Take 1 tablet by mouth 2 (Two) Times a Day. 11/03/19 Discontin ued(Stop Taking at Discharge ) levoFLOXacin (LEVAQUIN) 750 MG tablet Take 1 tablet by mouth Daily. 11/03/19 Discontin ued(Stop Taking at Discharge ) polyethylene glycol (MIRALAX) 17 g powder Take 17 g by mouth Daily As Needed (constipation). 11/03/19 Discontin ued(Stop Taking at Discharge ) senna (SENOKOT) 8.6 MG tablet Take 1 tablet by mouth Daily. 11/03/19 Discontin ued(Stop Taking at Discharge ) Active Problems Problem Noted Date Diagnosed Date A-fib 10/29/2024 CHF (congestive heart failure) 10/29/2024 BPH (benign prostatic hyperplasia) 10/29/2024 Essential hypertension 10/28/2024 Mixed hyperlipidemia 10/28/2024 Dementia 10/28/2024 Stroke-like symptoms 10/26/2024 Encounters Date Type Department Care Team Description 5 Readmission Management [facility] [address] [place] [address] Isabel Sal RN 5 Readmission Management [facility] [address] [place] [address] Shweta German, AVILA 5 9:30 AM EDT Anesthesia Event [facility] [address] [place] [address] Ajay Palomares MD 5 9:04 AM EDT - 5 9:38 AM EDT Surgery [facility] [address] [facility] [place] [address] Mian Garcia MD ESOPHAGOGASTRODUODENOSCOPY [[id number] (CPT )] 5 7:03 PM EDT - 5 3:14 PM EDT Hospital Encounter [facility] [address] [place] [address] Areli Nguyen MD Ramos, Angel Y, MD Lyons, Andrea L, MD Russell, Marc P, MD Esophageal dysphagia (Primary Dx); Dysphagia, unspecified type; Cognitive communication deficit Discharge Disposition: Home or Self Care 5 Travel from Last 3 Months Family History Medical History Relation Name Comments No Known Problems Father No Known Problems Mother Relation Name Status Comments Father Mother Social History Tobacco Use Types Packs/Day Years Used Date Smoking Tobacco: Never Assessed [facility] Utilities Answer Date Recorded In the past 12 months has [employer] electric, gas, oil, or water tuul threatened to shut off services in your [...] GED or equivalent No 10/29/2024 Preferred Language Occitan 10/29/2024 Sex and Gender Information Value Date Recorded Sex Assigned at Not on file Legal Sex Male 4:14 PM EDT Gender Identity Not on file Sexual Orientation Not on file Last Filed Vital Signs Vital Sign Reading [...] - - Body Mass Index - - Plan of Treatment Upcoming Encounters Date Type Department Care Team (Late st Contact Info) Description 12/26/2024 11:30 AM EDT Office Visit [facility] [address] [place] [id number] Clark Lopez MD [address] [place] [address] Health Maintenance Due Date Last Done Comments ANNUAL PHYSICAL 1935 RSV Vaccine - Adults (1 - 1- dose 75+ series) 08/13/2010 ZOSTER VACCINE (2 of 2) 04/15/2021 02/18/2021, 02/05 COVID-19 Vaccine (5 - 2023-2 5 season) 2024 01/12/2024, 01/26/2023, 06/25/2020, Additional history exists INFLUENZA VACCINE 01/16/2025 01/12/2024, , 02/23/2022, Additional history exists LIPID PANEL 10/27/2025 10/27/2024 TDAP/TD VACCINES (2 - Tdap) 04/08/203303/19, 03/17/2011, 04/18/2001, Additional history exists Pneumococcal Vaccine 50+ Completed 022, 05/21/2015, 02/16/2007, Additional history exists Procedures Procedure Name Priority Date/Time Associated Diagnosis [...] COLOR FLOW Routine 10/28/2024 9:35 AM EDT BASIC METABOLIC PANEL Routine 10/28/2024 8:42 AM EDT CBC (NO DIFF) Routine 10/28/2024 8:42 AM EDT ECG 12-LEAD STAT 10/28/2024 12:32 AM EDT URINALYSIS, MICROSCOPIC ONLY Routine 12:09 AM EDT URINALYSIS W/ CULTURE IF INDICATED STAT 10/28/2024 12:09 AM EDT CBC AND DIFFERENTIAL STAT 10/27/2024 11:54 PM EDT MAGNESIUM STAT 10/27/2024 11:54 PM EDT CBC WITH AUTO DIFFERENTIAL STAT 10/27 11:54 PM EDT LACTIC ACID, PLASMA STAT 10/27/2024 11:54 PM EDT COMPREHENSIVE METABOLIC PANEL STAT 11:54 PM EDT MRI BRAIN WO CONTRAST Routine 10/27/2024 7:22 PM EDT POCT GLUCOSE FINGERSTICK Routine 025 5:38 PM EDT FENTANYL, URINE Routine 10/27/2024 3:18 PM EDT URINE DRUG SCREEN Routine 10/27/2024 3:18 PM EDT EEG AWAKE OR DROWSY PORTABLE Routine 03/2025 12:15 PM EDT POCT GLUCOSE FINGERSTICK Routine 025 11:15 AM EDT LIPID PANEL Routine 10/27/2024 9:46 AM EDT HEMOGLOBIN A1C Routine 10/27/2024 9:46 AM EDT POCT GLUCOSE FINGERSTICK Routine 025 1:03 AM EDT LACTIC ACID, PLASMA STAT 10/26/2024 11:21 PM EDT CK STAT 10/26/2024 11:[address] OUTSIDE HEAD Routine 10/26/2024 12:[address] OUTSIDE HEAD Routine 10/26/2024 12:05 AM EDT SCANNED - IMAGING 10/26/2024 CT OUTSIDE NECK Routine 10/26/2024 12:00 AM EDT from Last 3 Months Results * Urinalysis, Microscopic Only - Urine, Clean Catch (10/30/2024 10:12 AM EDT) Only the most recent of2 resultswithin the time period is included. RBC, UA 0-2 None Seen, 0-2 /HPF 10/30/2024 10:31 AM EDT [facility] WBC, UA 0-2 None Seen, 0-2 /HPF 10/30/2024 10:31 AM EDT [facility] Comment:Urine culture not in dicated. Bacteria, UA None Seen None Seen /HPF 10/30/2024 10:31 AM EDT [facility] Squamous Epithelial Cells, UA 0-2 None Seen, 0-2 /HPF 10/30/2024 10:31 AM EDT [facility] Hyaline Casts, UA None Seen None Seen /LPF 10/30/2024 10:31 AM EDT [facility] Methodology Automated Microscopy 10/30/2024 10:31 AM EDT [facility] Urine Urine specimen obtained by clean catch procedure / Unknown Collection / Unknown 10/30/2024 10:12 AM EDT 10/30/2024 10:12 AM EDT Che Kiser LABELER URINE ORDERABLES F inal Result [facility]
[address] [place] [address], * (ABNORMAL) Urinalysis With Culture If Indicated - Urine, Clean Catch (10/30/2024 10:12 AM EDT) Only the most recent of2 resultswithin the time period is included. Color, UA Yellow Yellow, Straw 10/30/2024 10:31 AM EDT [facility] Appearance, UA Clear Clear 10/30/2024 10:31 AM EDT [facility] pH, UA 7.0 5.0 - 8.0 10/30/2024 10:31 AM EDT [facility] Specific [place], UA 1.011 1.005 - 1.030 10/30/2024 10:31 AM EDT [facility] Glucose, UA Negative Negative 10/30/2024 10:31 AM EDT [facility] Ketones, UA Negative Negative 10/30/2024 10:31 AM EDT [facility] Bilirubin, UA Negative Negative 10/30/2024 10:31 AM EDT [facility] Blood, UA Negative Negative 10/30/2024 10:31 AM EDT [facility] Protein, UA 30 mg/dL (1+)(A) Negative 10/30/2024 10:31 AM EDT [facility] Leuk Esterase, UA Moderate (2+)(A) Negative 10/30/2024 10:31 AM EDT [facility] Nitrite, UA Negative Negative 10/30/2024 10:31 AM EDT [facility] Urobilinogen, UA 1.0 E.U./dL 0.2 - 1.0 E.U./dL 10/30/2024 10:31 AM EDT [facility] Urine Urine specimen obtained by clean catch procedure / Unknown Collection / Unknown 10/30/2024 10:12 AM EDT 10/30/2024 10:12 AM EDT Narrative [facility] - 10/30/2024 10:31 AM EDT In absence of clinical symptoms, the presence of pyuria, bacteria, and/or nitrites on the urinalysis result does not correlate with infection. Che Serna Margi LABELER URINE ORDERABLES F inal Result [facility]
[address] [place] [address], * Upper GI Endoscopy (10/29/2024 9:19 AM [...] % EF(MOD-sp4) 39.9 % MV E max isidro 68.0 cm/sec MV dec time 0.17 sec IVRT 111.0 ms Med Peak E' Isidro 3.9 cm/sec Lat Peak E' Isidro 12.2 cm/sec TR max isidro 223.0 cm/sec Avg E/e' ratio 8.45 SV(LVOT) 29.4 ml RV Base 2.8 cm RV Mid 2.40 cm RV Length 6.4 cm TAPSE (>1.6) 1.13 cm RV S' 7.8 cm/sec LA dimension (2D) 3.5 cm LV V1 max 50.1 cm/sec LV V1 max PG 1.00 mmHg LV V1 mean PG 1.00 mmHg LV V1 VTI 9.4 cm Ao pk isidro 86.8 cm/sec Ao max PG 3.0 mmHg [...] CV ECHO ORDERABLES Final Res ult * CBC (No Diff) (10/28/2024 8:42 AM EDT) WBC 4.81 3.40 - 10.80 10*3/mm3 10/28/2024 9:16 AM EDT [facility] RBC 5.42 4.14 - 5.80 10*6/mm3 10/28/2024 9:16 AM EDT [facility] Hemoglobin 14.9 13.0 - 17.7 g/dL 10/28/2024 9:16 AM EDT [facility] Hematocrit 43.1 37.5 - 51.0 % 10/28/2024 9:16 AM EDT [facility] MCV 79.5 79.0 - 97.0 fL 10/28/2024 9:16 AM EDT [facility] MCH 27.5 26.6 - 33.0 pg 10/28/2024 9:16 AM EDT [facility] MCHC 34.6 31.5 - 35.7 g/dL 10/28/2024 9:16 AM EDT [facility] RDW 15.1 12.3 - 15.4 % 10/28/2024 9:16 AM EDT [facility] RDW-SD 43.6 37.0 - 54.0 fl 10/28/2024 9:16 AM EDT [facility] MPV 10.9 6.0 - 12.0 fL 10/28/2024 9:16 AM EDT [facility] Platelets 168 140 - 450 10*3/mm3 10/28/2024 9:16 AM EDT [facility] Blood Venipuncture / Unknown 10/28/2024 8:42 AM EDT 10/28/2024 9:09 AM EDT us Saeed Monique MD LAB BLOOD ORDERABLES Final Res ult [facility]
[address] [place] [address], * Basic Metabolic Panel (10/28/2024 8:42 AM EDT) Glucose 85 65 - 99 mg/dL 10/28/2024 9:56 AM EDT [facility] BUN 21.0 8.0 - 23.0 mg/dL 10/28/2024 9:56 AM EDT [facility] Creatinine 1.10 0.76 - 1.27 mg/dL 10/28/2024 9:56 AM EDT [facility] Sodium 140 136 - 145 mmol/L 10/28/2024 9:56 AM EDT [facility] Potassium 4.0 3.5 - 5.2 mmol/L 10/28/2024 9:56 AM EDT [facility] Chloride 104 98 - 107 mmol/L 10/28/2024 9:56 AM EDT [facility] CO2 24.0 22.0 - 29.0 mmol/L 10/28/2024 9:56 AM EDT [facility] Calcium 9.2 8.6 - 10.5 mg/dL 10/28/2024 9:56 AM EDT [facility] BUN/Creatinine Ratio 19.1 7.0 - 25.0 10/28/2024 9:56 AM EDT [facility] Anion Gap 12.0 5.0 - 15.0 mmol/L 10/28/2024 9:56 AM EDT [facility] eGFR 64.2 >60.0 mL/min/1.7 3 10/28/2024 9:56 AM EDT [facility] Blood Venipuncture / Unknown 10/28/2024 8:42 AM EDT 10/28/2024 9:09 AM EDT [facility] - 10/28/2024 9:56 AM EDT GFR [...] MD LAB BLOOD ORDERABLES Final Res ult [facility]
[address] [place] [address], * ECG 12 Lead QT Measurement (10/28/2024 [...] ECG No previous ECGs available Confirmed by ALBA JARA MD ([id number]) on 10/29/2024 6:41:44 AM Referred By: Confirmed By: ALBA JARA MD Procedure Note Alba Jara MD - 10/29/2024 Test Reason : QT Measurement Blood Pressure : */* mmHG Vent. Rate : 89 BPM Atrial Rate : 91 BPM P-R Int : * ms QRS Dur : 92 ms QT Int : 398 ms P-R-T Axes : * -4 30 degrees QTcB Int : 484 ms Atrial fibrillation Prolonged QT Abnormal ECG No previous ECGs available Confirmed by ALBA JARA MD ([id number]) on 10/29/2024 6:41:44 AM Referred By: Confirmed By: ALBA JARA MD Gla Weiner PA-C ECG ORDERABLES Emma l Result ECG * (ABNORMAL) CBC Auto Differential (10/27/2024 11:54 PM EDT) [facility] WBC 5.07 3.40 - 10.80 10*3/mm3 10/28/2024 12:10 AM EDT [facility] RBC 5.20 4.14 - 5.80 10*6/mm3 10/28/2024 12:10 AM EDT [facility] Hemoglobin 14.6 13.0 - 17.7 g/dL 10/28/2024 12:10 AM EDT [facility] Hematocrit 41.5 37.5 - 51.0 % 10/28/2024 12:10 AM [facility] MCV 79.8 79.0 - 97.0 fL 10/28/2024 12:10 AM [facility] MCH 28.1 26.6 - 33.0 pg 10/28/2024 12:10 AM [facility] MCHC 35.2 31.5 - 35.7 g/dL 10/28/2024 12:10 AM [facility] RDW 15.6(H) 12.3 - 15.4 % 10/28/2024 12:10 AM [facility] RDW-SD 44.8 37.0 - 54.0 fl 10/28/2024 12:10 AM [facility] MPV 10.3 6.0 - 12.0 fL 10/28/2024 12:10 AM [facility] Platelets 161 140 - 450 10*3/mm3 10/28/2024 12:10 AM [facility] Neutrophil % 33.3(L) 42.7 - 76.0 % 10/28/2024 12:10 AM [facility] Lymphocyte % 43.6 19.6 - 45.3 % 10/28/2024 12:10 AM [facility] Monocyte % 17.4(H) 5.0 - 12.0 % 10/28/2024 12:10 AM [facility] Eosinophil % 4.3 0.3 - 6.2 % 10/28/2024 12:10 AM [facility] Basophil % 1.0 0.0 - 1.5 % 10/28/2024 12:10 AM [facility] Immature Grans % 0.4 0.0 - 0.5 % 10/28/2024 12:10 AM [facility] Neutrophils, Absolute 1.69(L) 1.70 - 7.00 10*3/mm3 10/28/2024 12:10 AM [facility] Lymphocytes, Absolute 2.21 0.70 - 3.10 10*3/mm3 10/28/2024 12:10 AM EDT [facility] Monocytes, Absolute 0.88 0.10 - 0.90 10*3/mm3 10/28/2024 12:10 AM EDT [facility] Eosinophils, Absolute 0.22 0.00 - 0.40 10*3/mm3 10/28/2024 12:10 AM EDT [facility] Basophils, Absolute 0.05 0.00 - 0.20 10*3/mm3 10/28/2024 12:10 AM EDT [facility] Immature Grans, Absolute 0.02 0.00 - 0.05 10*3/mm3 10/28/2024 12:10 AM EDT [facility] nRBC 0.0 0.0 - 0.2 /100 WBC 10/28/2024 12:10 AM EDT [facility] Blood Venipuncture / Unknown 10/27/2024 11:54 PM EDT 10/28/2024 12:08 AM EDT Gal KRUGER-Imani LAB BLOOD ORDERABLES Final Result [facility]
[address] [place] [address], * Magnesium (10/27/2024 11:54 PM EDT) Magnesium 2.2 1.6 - 2.4 mg/dL 10/28/2024 12:35 AM EDT [facility] Blood Venipuncture / Unknown 10/27/2024 11:54 PM EDT 10/28/2024 12:04 AM EDT Gal KRUGER-C LAB BLOOD ORDERABLES Final Result [facility]
[address] [place] [address], [place] [phone] * Lactic Acid, Plasma (10/27/2024 11:54 PM EDT) Only the most recent of2 resultswithin the time period is included. Lactate 1.3 0.5 - 2.0 mmol/L 10/28/2024 12:32 AM EDT [facility] Comment:Falsely depressed re sults may occur on samples drawn from patients receiving N-Acetylcysteine (NAC) or Metamizole. Blood Venipuncture / Unknown 10/27/2024 11:54 PM EDT 10/28/2024 12:04 AM EDT Gal Weiner PA-C LAB BLOOD ORDERABLES Final Result [facility]
[address] [place] [address], * (ABNORMAL) Comprehensive Metabolic Panel (10/27/2024 11:54 PM EDT) Pathologist [facility] Glucose 80 65 - 99 mg/dL 10/28/2024 12:35 AM EDT [facility] BUN 21.7 8.0 - 23.0 mg/dL 10/28/2024 12:35 AM EDT [facility] Creatinine 1.08 0.76 - 1.27 mg/dL 10/28/2024 12:35 AM EDT [facility] Sodium 137 136 - 145 mmol/L 10/28/2024 12:35 AM EDT [facility] Potassium 4.1 3.5 - 5.2 mmol/L 10/28/2024 12:35 AM EDT [facility] Chloride 103 98 - 107 mmol/L 10/28/2024 12:35 AM EDT [facility] CO2 19.8(L) 22.0 - 29.0 mmol/L 10/28/2024 12:35 AM EDT [facility] Calcium 9.4 8.6 - 10.5 mg/dL 10/28/2024 12:35 AM [facility] Total Protein 7.5 6.0 - 8.5 g/dL 10/28/2024 12:35 AM [facility] Albumin 4.3 3.5 - 5.2 g/dL 10/28/2024 12:35 AM [facility] ALT (SGPT) 23 1 - 41 U/L 10/28/2024 12:35 AM [facility] AST (SGOT) 29 1 - 40 U/L 10/28/2024 12:35 AM [facility] Alkaline Phosphatase 71 39 - 117 U/L 10/28/2024 12:35 AM [facility] Total Bilirubin 0.4 0.0 - 1.2 mg/dL 10/28/2024 12:35 AM [facility] Globulin 3.2 gm/dL 10/28/2024 12:35 AM [facility] Comment:Calculated Result A/G Ratio 1.3 g/dL 10/28/2024 12:35 AM [facility] BUN/Creatinine Ratio 20.1 7.0 - 25.0 10/28/2024 12:35 AM [facility] Anion Gap 14.2 5.0 - 15.0 mmol/L 10/28/2024 12:35 AM [facility] eGFR 65.6 >60.0 mL/min/1.7 3 10/28/2024 12:35 AM [facility] Blood Venipuncture / Unknown 10/27/2024 11:54 PM EDT 10/28/2024 12:04 AM [facility] - 10/28/2024 12:35 AM EDT GFR [...] not include race as a factor us Gal Weiner PA-C LAB BLOOD ORDERABLES Final Result [facility]
[address] [place] [address], * MRI Brain Without Contrast (10/27/2024 7:22 PM EDT) Anatomical Region Laterality Modality Head, Neck N/A Magnetic Resonan ce 10/27/2024 10:1 5 PM EDT Impressions 10/27/2024 10:17 PM EDT Impression: Advanced chronic and age-related changes are noted as above. There is otherwise no evidence of acute infarct, hemorrhage, mass or mass effect. Electronically Signed: Saulo Romo MD 10/27/2024 10:17 PM EDT Workstation ID: [id number] Narrative 10/27/2024 10:17 PM EDT MRI BRAIN [...] MD 10/27/2024 10:17 PM EDT Workstation ID: [id number] Lamont Hernandez PA-C IMG MRI ORDERABLES Final Res ult * POC Glucose Once (10/27/2024 5:38 PM EDT) Only the most recent of3 resultswithin the time period is included. Glucose 117 70 - 130 mg/dL 10/27/2024 5:39 PM EDT [facility] Blood 10/27/2024 5:38 PM EDT 10/27/2024 5:39 PM EDT Saeed Monique MD POINT OF CARE TEST ORDERABLES Final Result [facility]
[address] [place] [address], * Urine Drug Screen - Urine, Clean Catch (10/27/2024 3:18 PM EDT) THC, Screen, Urine Negative Negative 2024 4:17 PM EDT [facility] Phencyclidine (PCP), Urine Negative Negative 10/27/2024 4:17 PM EDT [facility] Cocaine Screen, Urine Negative Negative 10/27/2024 4:17 PM EDT [facility] Methamphetamine, Ur Negative Negative 10/27 4:17 PM EDT [facility] Opiate Screen Negative Negative 10/27/2024 4:17 PM EDT [facility] Amphetamine Screen, Urine Negative Negative 10/27/2024 4:17 PM EDT [facility] Benzodiazepine Screen, Urine Negative Negative 10/27/2024 4:17 PM EDT [facility] Tricyclic Antidepressants Screen Negative Negative 10/27/2024 4:17 PM EDT [facility] Methadone Screen, Urine Negative Negative 10/27/2024 4:17 PM EDT [facility] Barbiturates Screen, Urine Negative Negative 10/27/2024 4:17 PM EDT [facility] Oxycodone Screen, Urine Negative Negative 10/27/2024 4:17 PM EDT [facility] Buprenorphine, Screen, Urine Negative Negative 10/27/2024 4:17 PM EDT [facility] Urine Urine specimen obtained by clean catch procedure / Unknown Collection / Unknown 10/27/2024 3:18 PM EDT 10/27/2024 3:27 PM EDT [facility] - 10/27/2024 4:17 PM EDT Cutoff [...] URINE ORDERABLES Final Result Performing Organization Address [facility] Co de Phone Number [facility]
[address] [place] [address], * Fentanyl, Urine - Urine, Clean Catch (10/27/2024 3:18 PM EDT) Fentanyl, Urine Negative Negative 10/27/2024 4:39 PM EDT [facility] Urine Urine specimen obtained by clean catch procedure / Unknown Collection / Unknown 10/27/2024 3:18 PM EDT 10/27/2024 3:27 PM EDT Narrative [facility] - 10/27/2024 4:39 PM EDT Negative [...] URINE ORDERABLES Final Result Performing Organization Address [facility] Phone Number [facility]
[address] [place] [address], [place] [phone] * EEG AWAKE OR DROWSY PORTABLE (10/27/2024 [...] Jimenez APRN NEUROLOGY ORDERABLES Fi nal Result Performing Organization Address [facility] Co de Phone Number NEUROLOGY * Hemoglobin A1c (10/27/2024 9:46 AM EDT) Hemoglobin A1C 5.33 4.80 - 5.60 % 10/27/2024 12:28 PM EDT [facility] Blood Venipuncture / Unknown 10/27/2024 9:46 AM EDT 10/27/2024 10:40 AM EDT Narrative [facility] - 10/27/2024 12:28 PM EDT Hemoglobin A1C Ranges: Increased Risk for Diabetes 5.7% to 6.4% Diabetes >= 6.5% Diabetic Goal < 7.0% Lamont Hernandez PA-C LAB BLOOD ORDERABLES Final R esult Performing Organization Address City/[facility]/ZIP Co de Phone Number [facility]
[address] [place] [address], * Lipid Panel (10/27/2024 9:46 AM EDT) Total Cholesterol 138 0 - 200 mg/dL 10/27/2024 11:15 AM EDT [facility] Triglycerides 42 0 - 150 mg/dL 10/27/2024 11:15 AM EDT [facility] HDL Cholesterol 56 40 - 60 mg/dL 10/27/2024 11:15 AM EDT [facility] LDL Cholesterol 72 0 - 100 mg/dL 10/27/2024 11:15 AM EDT [facility] VLDL Cholesterol 10 5 - 40 mg/dL 10/27/2024 11:15 AM EDT [facility] LDL/HDL Ratio 1.31 10/27/2024 11:15 AM EDT [facility] Blood Venipuncture / Unknown 10/27/2024 9:46 AM EDT 10/27/2024 10:39 AM EDT Narrative [facility] - 10/27/2024 11:15 AM EDT Cholesterol [...] PA-C LAB BLOOD ORDERABLES Final R esult [facility]
[address] [place] [address], * (ABNORMAL) CK (10/26/2024 11:21 PM EDT) Creatine Kinase 245(H) 20 - 200 U/L 10/27/2024 12:01 AM EDT [facility] Blood Venipuncture / Unknown 10/26/2024 11:21 PM EDT 10/26/2024 11:34 PM EDT us Roxy Jimenez LABELER LAB BLOOD ORDERABLES Fi nal Result [facility]
[address] [id number], * [place] Outside Head (10/26/2024 12:10 AM EDT) Only the most recent of2 resultswithin the time period is included. Narrative SYSTEMGENERATED, DOCUMENTATION - 10/30/2024 4:07 PM [...] Modality Radiographic Guillermina ging us [facility] Onbase IMG DIAGNOSTIC IMAGING ORDERA BLES Final Result from Last 3 Months Insurance [employer] Care Teams Visual Display Manager Relationship Specialty Start Date End Date Provider, [place] [address] PCP - General 10/26/24
[2024-11-29 21:01] LABS: Troponin I 0.05 ng/ml (0.00-0.034)
[2024-11-29] MEDS: 0.9 % SODIUM CHLORIDE 50 ML VIAL 100 ML IV (21:36)
[2024-11-29] MEDS: SODIUM CHLORIDE 0.9% 10ML SYR (RAD ONLY) 10 ML IV (21:36)
[2024-11-29] MEDS: IOPAMIDOL-370 (76%);100ML BOTTLE 160 ML IV (21:36)
[2024-11-29] MEDS: 0.9 % SODIUM CHLORIDE 1000ML 1,000 ML 999 ML IV (21:48)
[2024-11-29] MEDS: CEFEPIME HCL 2 GM in 0.9 % SODIUM CHLORIDE 100 ML IV (21:48)
[2024-11-29 21:57] VITALS: BP 129/89; PULSE 99; RESP 20; O2SAT 96
[2024-11-29 22:00] VITALS: BP 140/89; PULSE 105; RESP 24; O2SAT 97
[2024-11-29 22:30] VITALS: BP 126/80; PULSE 89; RESP 25; O2SAT 95
[2024-11-29 23:00] VITALS: BP 132/78; PULSE 89; RESP 18; O2SAT 99
[2024-11-29 23:28] LABS: Hepatitis C Ab Qual. W/ RFX NEGATIVE (Negative)
[2024-11-29 23:30] VITALS: BP 123/84; RESP 18
--- NOTE | 2024-11-29 23:35 | PC.NURSE ---
[facility] stated [facility] would call back
--- NOTE | 2024-11-29 23:52 | PC.NURSE ---
Pt accepted by Dr. Guzman at [facility]. Will call back with room assignment.
[2024-11-30 00:34] LABS: Troponin I 0.06 ng/ml (0.00-0.034)
[2024-11-30 00:56] VITALS: BP 130/62; PULSE 89; RESP 18; TEMP 36.8; O2SAT 99
== END 2024-11-30 01:01 | disposition other institution (70) ==
PROVIDERS: Emergency Provider Student in an Organized Health Care Education/Training Program
DX: I26.99 Other pulmonary embolism without acute cor pulmonale (principal); N39.0 Urinary tract infection, site not specified; T83.511A Infection and inflammatory reaction due to indwelling urethral catheter, initial encounter; I48.91 Unspecified atrial fibrillation; R41.82 Altered mental status, unspecified; Z96.0 Presence of urogenital implants
CPT/HCPCS: 51702; 70450; 70496; 70498; 71275; 74177; 80053; 80320; 83605; 83690; 83735; 84100; 84484; 85025; 85610; 86803; 87040; 87389; 93005; 96365; 96367; 99285; J0692; J1650; J7030; Q9967

== ENCOUNTER 2024-12-27 09:35 | Inpatient (IN) | payer OTHER, MEDICARE, SELFPAY ==
--- OUTSIDE RECORDS SUMMARY | 2024-10-26 19:03 | XMS_ITS | Encounter Summary ---
Author Organization [facility] Address [address] [place] [address] Care Team Providers Care Control Room Helper Name Role Phone Provider, No Known Primary Care Provider Unavail able Reason for Referral * MRI/CAT/PET Scan (Routine) - Pending Review Specialty Diagnoses / Procedures Referred By Contac t Referred To Contact Procedures CT Outside Head Films, Radiant Outside Referral ID Status Reason Start Date Expiration Date V isits Requested Visits Authorized [id number] Pending Review 10/30/2024 01/29/2026 1 1 * MRI/CAT/PET Scan (Routine) - Pending Review Specialty Diagnoses / Procedures Referred By Contac t Referred To Contact Procedures CT Outside Head Films, Radiant Outside Referral ID Status Reason Start Date Expiration Date V isits Requested Visits Authorized [id number] Pending Review 10/30/2024 01/29/2026 1 1 * MRI/CAT/PET Scan (Routine) - Pending Review Specialty Diagnoses / Procedures Referred By Contac t Referred To Contact Procedures CT Outside Neck Films, Radiant Outside Referral ID Status Reason Start Date Expiration Date V isits Requested Visits Authorized [id number] Pending Review 10/30/2024 01/29/2026 1 1 Reason for Visit * Auth/Cert Specialty Diagnoses / Procedures Referred By Contac t Referred To Contact Diagnoses Cerebrovascular Accident CVA Referral ID Status Reason Start Date Expiration Date Visits Re quested Visits Authorized [id number] 1 1 Encounter Details Date Type Department Care Team (Late st Contact Info) Description 10/26/2024 7:03 PM EDT - 11/02/2024 3:14 PM EDT Hospital Encounter [facility] [address]F [address] [place] [id number] Areli Nguyen MD [address] [facility] [address] [place] [address] Thien Becker MD [address] [place] [address] Saeed Monique MD [address] [place], [place] [id number] Enrique Schneider MD [address] [facility] [address] [place], [place] [id number] Esophageal dysphagia (Primary Dx); Dysphagia, unspecified type; Cognitive communication deficit Discharge Disposition: Home or Self Care Social History Tobacco Use Types Packs/Day Years Used Date Smoking Tobacco: Never Assessed [facility] Utilities Answer Date Recorded In the past 12 months has [employer], gas, oil, or water [employer] threatened to shut off services in your home? No 10/29/2024 Exercise Vital Sign Answer Date Recorde d On average, how many days pe r week do you engage in moderate to strenuous exercise (like a brisk walk)? 0 days 10/29/2024 On average, how many minutes do you engage in exercise at this level? 0 min 10/29/2024 Hunger Vital Sign Answer Date Recorded Worried About Running Out of Food in the Last Ye ar Not on file 10/29/2024 Within the past 12 months, t he food you bought just didn't last and you didn't have money to get more. Never true 10/29/2024 PRAPARE - Transportation Answer Date Re corded In the past 12 months, has l ack of transportation kept you from medical appointments or from getting medications? No 10/16 In the past 12 months, has l ack of transportation kept you from meetings, work, or from getting things needed for daily living? No 10/29/2024 Abuse Screen Answer Date Recorded Unsafe at Home or Work/School Not on file Feels Threatened by Someone? Not on file Does Anyone Keep You from Co ntacting Others or Doint Things Outside the Home? Not on file 01/28/2023 Physical Sign of Abuse Present Not on file 1 Housing Stability Answer Date Recorded Current Living Arrangements apartment 10/16 Potentially Unsafe Housing Conditions none 10/29/2024 Family and Community Support Answer Manuel e Recorded If for any reason you need h elp with day-to-day activities such as bathing, preparing meals, shopping, managing finances, etc., do you get the help you need? I don't need any help 10/29/2024 Lonely or Isolated Not on file 10/29/2024 Employment Answer Date Recorded Do you want help finding or keeping work or a job? I do not need or want help 10/29/2024 Disabilities Answer Date Recorded Concentrating, Remembering, or Making Decisions Difficulty Not on file 01/28/2023 Doing Errands Independently Difficulty Not on fi le 01/28/2023 Education Answer Date Recorded Do you want help with school or training? For example, starting or completing job training or getting a high school diploma, GED or equivalent No 10/29/2024 Preferred Language Belgian 10/29/2024 Sex and Gender Information Value Date Recorded Sex Assigned at Not on file Legal Sex Male 4:14 PM EDT Gender Identity Not on file Sexual Orientation Not on file documented as of this encounter Last Filed Vital Signs Vital Sign Reading Time Taken Comments Blood Pressure 149/105 11/02/2024 11:15 AM EDT Pulse 79 11/02/2024 11:15 AM EDT Temperature 36.6 C (97.8 F) 11/02/2024 11:15 AM EDT Respiratory Rate 16 11/02/2024 11:15 AM EDT Oxygen Saturation 98% 11/02/2024 4:00 AM EDT Inhaled Oxygen Concentration - - Weight 68 kg (150 lb) 10/29/2024 8:21 AM EDT Height - - Body Mass Index - - documented in this encounter Discharge Summaries * Enrique Schneider MD - 11/02/2024 10:15 AM EDT Images from the original note were not included. [facility] Medicine Services DISCHARGE SUMMARY Patient Name: Jessica Burnham : 1935 Date of Admission: 10/26/2024 7:03 PM Date of Discharge: 11/02/2024 Primary Care Physician: Provider, No Known Consults Date and Time Order Name Status Description 10/29/2024 1:54 PM Inpatient Cardiology Consult Completed 10/27/2024 2:02 PM Inpatient Gastroenterology Consult Completed Hospital Course Presenting Problem: Stroke like symptoms, atrial fibrillation, HFrEF Active Hospital Problems Diagnosis POA ??? Stroke-like symptoms [R29.90] Yes ??? A-fib [I48.91] Yes ??? CHF (congestive heart failure) [I50.9] Yes ??? BPH (benign prostatic hyperplasia) [N40.0] Yes ??? Essential hypertension [I10] Yes ??? Mixed hyperlipidemia [E78.2] Yes ??? Dementia [F03.90] Yes Resolved Hospital Problems No resolved problems to display. Hospital Course: Jessica Burnham is a 89 y.o. male with a past medical history of Former tobacco use, COPD, dementia, sciatica, and hypertension presenting with altered mental status. 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 ASA/statin only --MRI brain showed no acute --ECHO with reduced EF. No PFO noted --EEG was unremarkable New Dx Afib rate controlled--10/29 New Dx CHF--10/29 Reduced EF of 35-40% --rate controlled, ASA only per cardiology/daughter discussion --on coreg/ARB --GDMT as tolerated, euvolemic --follow up with cardiology Dysphagia --EGD s/p dilation --PPI Dementia --stable LLE swelling --LLE duplex neg. Stable. COPD without exacerbation --oxygen as needed Discharge Follow Up Recommendations for outpatient labs/diagnostics: As written Day of Discharge HPI: Up in bed. No complaints. Review of Systems As above Vital Signs: Temp: [97.6 ??F (36.4 ??C)-98.9 ??F (37.2 ??C)] 97.8 ??F (36.6 ??C) Heart Rate: [76-92] 76 Resp: [16-18] 16 BP: (120-153)/(87-98) 153/98 Physical Exam: NAD, alert and oriented OP clear, dry MM Neck supple Irregular CTAB +BS, soft CARRERA Normal affect Pertinent and/or Most Recent Results LAB RESULTS: Lab 10/28/24 0842 10/27/24 2354 10/26/24 2321 WBC 4.81 5.07 -- HEMOGLOBIN 14.9 14.6 -- HEMATOCRIT 43.1 41.5 -- PLATELETS 168 161 -- NEUTROS ABS -- 1.69* -- IMMATURE GRANS (ABS) -- 0.02 -- LYMPHS ABS -- 2.21 -- MONOS ABS -- 0.88 -- EOS ABS -- 0.22 -- MCV 79.5 79.8 -- LACTATE -- 1.3 1.0 Lab 10/28/24 0842 10/27/24 2354 10/27/24 0946 SODIUM 140 137 -- POTASSIUM 4.0 4.1 -- CHLORIDE 104 103 -- CO2 24.0 19.8* -- ANION GAP 12.0 14.2 -- BUN 21.0 21.7 -- CREATININE 1.10 1.08 -- EGFR 64.2 65.6 -- GLUCOSE 85 80 -- CALCIUM 9.2 9.4 -- MAGNESIUM -- 2.2 -- HEMOGLOBIN A1C -- -- 5.33 Lab 10/27/24 2354 TOTAL PROTEIN 7.5 ALBUMIN 4.3 GLOBULIN 3.2 ALT (SGPT) 23 AST (SGOT) 29 BILIRUBIN 0.4 ALK PHOS 71 Lab 10/27/24 0946 CHOLESTEROL 138 LDL CHOL 72 HDL CHOL 56 TRIGLYCERIDES 42 Brief Urine Lab Results (Last result in the past 365 days) Color Clarity Blood Leuk Est Nitrite Protein CREAT Urine HCG 10/30/24 1012 Yellow Clear Negative Moderate (2+) Negative 30 mg/dL (1+) Microbiology Results (last 10 days) No results found for the last [address] Outside Head Result Date: 10/30/2024 This procedure was auto-finalized with no dictation required. CT Outside Head Result Date: 10/30/2024 This procedure was auto-finalized with no dictation required. CT Outside Neck Result Date: 10/30/2024 This procedure was auto-finalized with no dictation required. Duplex Venous Lower Extremity - Left CAR Result Date: 10/28/2024 ??? Normal left lower extremity venous duplex scan. ??? Incidentally enlarged lymph nodes are notedin the left groin. MRI Brain Without Contrast Result Date: 10/27/2024 MRI BRAIN WO CONTRAST Date of Exam: 10/27/2024 6:49 PM EDT Indication: Stroke, follow up Left facialdroop, dysarthria, left-sided weakness. Comparison: None available. Technique: Routine multiplanar/multisequence sequence images of the brain were obtained without contrast administration. Findings: No acute infarct is present on diffusion weighted sequences. Midline structures are normal and the craniocervical junction appears satisfactory. Age-related changes are present with relatively advanced generalized volume loss and typical pontine and periventricular leukomalacia. There are also some areas of more focal cortical volume loss and underlying gliosis such as in the right frontal lobe with the appearance of prior infarct. There is otherwise no evidence of intracranial hemorrhage, mass or mass effect. There is ex vacuo prominence of the ventricles and sulci. The orbits are normal. Theparanasal sinuses are grossly clear. Impression: Advanced chronic and age-related changes are noted as above. There is otherwise no evidence of acute infarct, hemorrhage, mass or mass effect. Electronically Signed: Saulo Romo MD 10/27/2024 10:17 PM EDT Workstation ID: [id number] EEG Result Date: 10/27/2024 History: 89 y old male , AMS. r/o seizure Procedure: A digital electroencephalogram was performed in the Clinical Neurophysiology Laboratory. The 10/20 International System of electrode placement wasused and both Bipolar and referential electrode montages were monitored. EEG Description: This EEG is continuous and symmetrical. During the awake state with eye closed, there is a posterior dominaterhythm of -9- Hz that is symmetrical and reacts appropriately to eye opening. Anterior to posterioramplitude frequency gradient is preserved. With Drowsiness, there is waxing and waning of the posterior dominant rhythm with eventual replacement by a mixture of beta, alpha and theta activity. Photic stimulation using a stepwise increase in photic frequency, results in driving response but no activation of epileptiform activity. A prolonged Lead I EKG rhythm strip revealed heart rate at --70--/min Interpretation: This EEG obtained in the awake and drowsy state is normal for age. Clinical correlation: The diagnosis of epilepsy is clinical one. A normal EEG dose not excludes this Diagnosis. However there are no epileptiform features in this recording to suggest an underlining diagnosis of Epilepsy. Therefore, Clinical correlation is recommended. Results for orders placed during the hospital encounter of 10/26/24 Duplex Venous Lower Extremity - Left CAR 10/28/2024 1:43 PM Interpretation Summary ??? Normal left lower extremity venous duplex scan. ??? Incidentally enlarged lymph nodes are noted in the left groin. Results for orders placed during the hospital encounter of 10/26/24 Duplex Venous Lower Extremity - Left CAR 10/28/2024 1:43 PM Interpretation Summary ??? Normal left lower extremity venous duplex scan. ??? Incidentally enlarged lymph nodes are noted in the left groin. Results for orders placed during the hospital encounter of 10/26/24 Adult Transthoracic Echo Complete W/ Cont if Necessary Per Protocol (With Agitated Saline) 10/28/2024 5:29 PM Interpretation Summary ??? Left ventricular systolic function is moderately decreased. Calculated left ventricular EF = 37.8% Left ventricular ejection fraction appears to be 36 - 40%. Left ventricular diastolic function was indeterminate. ??? Normal right ventricular cavity size and wall thickness noted. Mildly reduced right ventricularsystolic function noted. 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 Consider contrasted echo imaging versus cardiac MRI for further characterization if clinically warranted. ??? The left atrial cavity is mildly dilated. ??? Mild mitral valve regurgitation is present. ??? Mild aortic valve regurgitation is present. ??? Mild dilation of the aortic root is present. The aortic root measures 3.8 cm. Plan for Follow-up of Pending Labs/Results: Reviewed Discharge Details Discharge Medications New Medications Instructions Start Date aspirin 81 MG chewable tablet Replaces: aspirin 325 MG tablet 81 mg, Oral, Daily atorvastatin 40 MG tablet Commonly known as: LIPITOR 40 mg, Oral, Nightly losartan 25 MG tablet Commonly known as: COZAAR 25 mg, Oral, Every 24 Hours Scheduled Continue These Medications Instructions Start Date carvedilol 6.25 MG tablet Commonly known as: COREG 6.25 mg, Oral, 2 Times Daily With Meals finasteride 5 MG tablet Commonly known as: PROSCAR 5 mg, Oral, Daily omeprazole 40 MG capsule Commonly known as: priLOSEC 40 mg, Oral, 2 Times Daily tamsulosin 0.4 MG capsule 24 hr capsule Commonly known as: FLOMAX 2 capsules, Oral, Daily Stop These Medications amLODIPine 5 MG tablet Commonly known as: NORVASC amoxicillin-clavulanate 875-125 MG per tablet Commonly known as: AUGMENTIN aspirin 325 MG tablet Replaced by: aspirin 81 MG chewable tablet bisacodyl 5 MG EC tablet Commonly known as: DULCOLAX Diclofenac Sodium 1 % gel gel Commonly known as: VOLTAREN dilTIAZem CD 180 MG 24 hr capsule Commonly known as: CARDIZEM CD levoFLOXacin 750 MG tablet Commonly known as: LEVAQUIN polyethylene glycol 17 g powder Commonly known as: MIRALAX potassium chloride 10 MEQ CR capsule Commonly known as: MICRO-K rosuvastatin 10 MG tablet Commonly known as: CRESTOR senna 8.6 MG tablet Commonly known as: SENOKOT No Known Allergies Discharge Disposition: Home or Self Care Diet: Hospital: Diet Order Procedures ??? Diet: Regular/House; Texture: Soft to Chew (NDD 3); Soft to Chew: Chopped Meat; Fluid Consistency: Thin (IDDSI 0) Activity: Restrictions or Other Recommendations: CODE STATUS: There are no questions and answers to display. No future appointments. Additional Instructions for the Follow-ups that You Need to Schedule Discharge Follow-up with PCP As directed Currently Documented PCP: Provider, No Known PCP Phone Number: None Follow Up Details: 1 week Discharge Follow-up with Specified Provider: Moriah Lopez 1 month As directed To: Cardiology Jessica 1 month Enrique Schneider MD 11/02/24 Time Spent on Discharge: I spent 40 minutes on this discharge activity which included: [id number] with the patient, reviewing the data in the system, coordination of the care with the nursing staff as well as consultants, documentation, and entering orders. * Han Martin RN - 10/29/2024 11:16 AM EDT Images from the original note were not included. Jessica Burnham (89 y.o. Male) Jean Claude Martin RNpharmacy specialist [phone] Looking for short term rehab Date of 1935 Social Security Number [id number] Address [address] [address] Hoahaoism None Marital Status Single Admission Date 10/26/2024 Admission Type Urgent Admitting Provider Saeed Monique MD Attending Provider Saeed Monique MD Department, Room/Bed [facility] 3F, S318/1 Discharge Date Discharge Disposition Discharge Destination Attending Provider: Saeed Monique MD Allergies: No Known Allergies Isolation: None Infection: None Code Status: Not on file Ht: -- Wt: 68 kg (150 lb) Admission Cmt: None Principal Problem: Stroke-like symptoms [R29.90] Active Insurance as of 10/26/2024 Primary Coverage Payor Plan Insurance Group Employer/Plan Group [facility] [employer] Payor Plan Address Payor Plan Phone Number Payor Plan Fax Number Effective Dates [id number] 04/18/2024 - None Entered [facility] [id number] Subscriber Name Subscriber Date Member ID JESSICA BURNHAM 1935 [id number] Emergency Contacts [employer] Director (Rel.) Home Phone Work Phone Mobile Phone Saranya Carter (Daughter) [phone] History & Physical Thien Becker MD at 10/26/24 [facility] Patient Identification: Name: Jessica Burnham Age: 89 y.o. Sex: male : 1935 Visit Number: [id number] Admit Date: 10/26/2024 Room number: S318/1 Primary Care Physician: Provider, No Known Date of Admission: 10/26/2024 Subjective Chief complaint: Confusion History of presenting illness: This is an 89 male from shelter with a past medical history of COPD, dementia, sciatica, and hypertension presenting with altered mental status. Pt found to have confusion, dysarthria, and bilateral lower extremity drift. Last known well has not been established. The patient initially presented to [facility] with vitals WNL and imaging showing CT head with changes to right MCA territory right frontal, No right MCA LVO identified. 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 He has been transferred to our hospital for further management. At this time, he is AAOX3 and denies any CP, SOB or N/V. Pt states he does not remember why he was sent to the hospital. States he was told he was having stroke but he has not noticed any issues. The patient does have mild dysarthria, but he states that there are no changes to his speech and that it's likely 2/2 not having his dentures. He has no focal weakness on exam. Review of Systems Constitutional: Negative for activity change, chills and fever. HENT: Negative for drooling and sinus pain. Eyes: Negative for pain. Respiratory: Negative for apnea. Cardiovascular: Negative for chest pain. Gastrointestinal: Negative for abdominal pain. Endocrine: Negative for heat intolerance. Genitourinary: Negative for difficulty urinating and genital sores. Musculoskeletal: Negative for back pain and myalgias. Allergic/Immunologic: Negative for food allergies. Neurological: Negative for speech difficulty and headaches. Hematological: Does not bruise/bleed easily. Psychiatric/Behavioral: Negative for confusion and hallucinations. No past medical history on file. No past surgical history on file. No family history on file. Social History Socioeconomic History Marital status: Single Allergies: Patient has no allergy information on record. Medications below are reported home medications pulling from within the system; at this time, thesemedications have not been reconciled unless otherwise specified and are in the verification processfor further verifcation as current home medications. Prior to Admission Medications None Objective Vital Signs: No data found. on ; There is no height or weight on file to calculate BMI. Wt Readings from Last 3 Encounters: No data found for Wt PHYSICAL EXAMINATION: GENERAL: The patient is well developed and nontoxic. HEENT: Anicteric sclerae, PERRLA, EOMI. Oropharynx clear. Moist mucous membranes. Conjunctivae appear well perfused. CHEST: Chest wall is nontender. HEART: Regular rate and rhythm without murmurs. LUNGS: Clear to auscultation bilaterally. ABDOMEN: Soft, positive bowel sounds, nontender, no organomegaly. RECTAL: Deferred. SKIN: No rash, no excessive bruising, petechiae, or purpura. NEUROLOGIC: Cranial nerves II-XII intact without motor/sensory deficit. LABS: CBC and coagulation: Acid/base balance: Renal and electrolytes: CrCl cannot be calculated (No successful lab value found.). Liver and pancreatic function: Invalid input(s): PROT Endocrine function: No results found for: HGBA1C Point of care bedside glucose levels: No results found for: TSH , FREET4 Cardiac: Cultures: No results found for: COLORU , CLARITYU , SPECGRAV , PHUR , PROTEINUR , GLUCOSEU , KETONESU , BLOODU , NITRITEU , LEUKOCYTESUR , BILIRUBINUR , UROBILINOGEN , RBCUA , WBCUA , BACTERIA , UACOMMENT Microbiology Results (last 10 days) No results found for the last 240 hours. No results found for: PREGTESTUR , PREGSERUM , HCG , HCGQUANT Pain Management Panel No data to display I have personally looked at the labs and they are summarized above. Detailed radiology reports for the last 24 hours: Imaging Results (Last 24 Hours) No results found for the last 24 hours. Final impressions for the last 30 days of radiology reports: No radiology results for the last 30 days. Assessment & Plan This is an 89 male with a past medical history of Former tobacco use, COPD, dementia, sciatica, andhypertension presenting with altered mental status. CVA: - Telemetry - Neuro checks every 4 hours - Aspirin and Lipitor daily - Echo with bubbles - PT/OT - Speech therapy - MRI brain - Consult Neurology Hypertension: -Currently well controlled -Hydralazine as needed COPD without exacerbation: -DuoNebs every 4 hours as needed -Titrate oxygen to SaO2 of 88% to 92% -Continue to monitor SaO2 Thien Becker MD [facility] 10/26/24 19:21 EDT 1950 Vital Signs (last day) Date/Time Temp Temp src Pulse Resp BP Patient Position SpO2 10/29/24 1010 -- -- 85 -- 136/99 -- 94 10/29/24 1005 -- -- 82 -- 134/93 -- 94 10/29/24 1000 -- -- 82 -- 122/92 -- 93 10/29/24 0958 -- -- 80 -- 123/82 -- 95 10/29/24 0951 -- -- 69 -- 103/83 -- 96 10/29/24 0949 97.6 (36.4) Temporal 75 16 95/75 Lying 96 10/29/24 0821 98 (36.7) Temporal 78 16 115/73 -- 96 10/29/24 0753 97.9 (36.6) Oral 103 16 147/107 Lying 98 10/28/24 2249 97.9 (36.6) Oral 88 18 166/112 Lying -- 10/28/24 1937 98.1 (36.7) Oral 89 18 174/96 Lying -- 10/28/24 1700 -- -- 90 -- -- -- 79 10/28/24 1500 98 (36.7) Oral 87 18 132/104 Lying -- 10/28/24 1400 -- -- 80 -- -- -- -- 10/28/24 1118 98.5 (36.9) Oral -- 18 141/112 Lying -- 10/28/24 0935 -- -- -- -- 166/93 -- -- 10/28/24 0710 98.3 (36.8) Oral -- 18 170/116 Lying -- Current Facility-Administered Medications Medication Dose Route Frequency Provider Last Rate Last Admin amLODIPine (NORVASC) tablet 5 mg 5 mg Oral Q24H Saeed Monique MD 5 mg at 10/29/24 1101 aspirin chewable tablet 81 mg 81 mg Oral Daily Lamont Hernandez PA-C 81 mg at 10/29/24 1101 Or aspirin suppository 300 mg 300 mg Rectal Daily Lamont Hernandez PA-C 300 mg at 10/27/24 1501 atorvastatin (LIPITOR) tablet 40 mg 40 mg Oral Nightly Roby Mckenzie MD 40 mg at 10/28/241938 ipratropium-albuterol (DUO-NEB) nebulizer solution 3 mL 3 mL Nebulization Q6H PRN Thien Becker MD [START ON 10/30/2024] lactated ringers infusion 9 mL/hr Intravenous Continuous Ajay Palomares MD melatonin tablet 5 mg 5 mg Oral Nightly PRN Gal Weiner PA-C 5 mg at 10/28/241938 pantoprazole (PROTONIX) injection 40 mg 40 mg Intravenous BID AC Riccardo Castañeda APRN 40 mg at 10/29/24 0753 sodium chloride 0.9 % flush 10 mL 10 mL Intravenous Q12H Lamont Hernandez PA-C 10 mL at 10/29/24 1101 sodium chloride 0.9 % flush 10 mL 10 mL Intravenous PRN Lamont Hernandez PA-C sodium chloride 0.9 % infusion 40 mL 40 mL Intravenous PRN Lamont Hernandez PA-C Physician Progress Notes (last 24 hours) Saeed Monique MD at 10/28/24 1324 [facility] Medicine Services PROGRESS NOTE Patient Name: Jessica Burnham : 1935 Date of Admission: 10/26/2024 Primary Care Physician: Provider, No Known Subjective Subjective CC: AMS HPI: Patient seen this AM. States that he feels ok. Confusion better per nursing Objective Objective Vital Signs: Temp: [97.5 ??F (36.4 ??C)-98.5 ??F (36.9 ??C)] 98.5 ??F (36.9 ??C) Heart Rate: [81-89] 82 Resp: [17-18] 18 BP: (141-170)/(93-116) 141/112 Physical Exam: Constitutional: No acute distress, awake, alert HENT: NCAT, mucous membranes moist Respiratory: Clear to auscultation bilaterally, respiratory effort normal Cardiovascular: RRR, no murmurs, rubs, or gallops Gastrointestinal: Positive bowel sounds, soft, nontender, nondistended Musculoskeletal: No bilateral ankle edema Psychiatric: Appropriate affect, cooperative Neurologic: Oriented x 2 (not to date), confusion seems better today, speech clear Skin: No rashes Results Reviewed: LAB RESULTS: Lab 10/28/24 0842 10/27/24235310/26/24 2321 WBC 4.81 5.07 -- HEMOGLOBIN 14.9 14.6 -- HEMATOCRIT 43.1 41.5 -- PLATELETS 168 161 -- NEUTROS ABS -- 1.69* -- IMMATURE GRANS (ABS) -- 0.02 -- LYMPHS ABS -- 2.21 -- MONOS ABS -- 0.88 -- EOS ABS -- 0.22 -- MCV 79.5 79.8 -- LACTATE -- 1.3 1.0 Lab 10/28/24 0842 10/27/24 2354 10/27/24 0946 SODIUM 140 137 -- POTASSIUM 4.0 4.1 -- CHLORIDE 104 103 -- CO2 24.0 19.8* -- ANION GAP 12.0 14.2 -- BUN 21.0 21.7 -- CREATININE 1.10 1.08 -- EGFR 64.2 65.6 -- GLUCOSE 85 80 -- CALCIUM 9.2 9.4 -- MAGNESIUM -- 2.2 -- HEMOGLOBIN A1C -- -- 5.33 Lab 10/27/24 2354 TOTAL PROTEIN 7.5 ALBUMIN 4.3 GLOBULIN 3.2 ALT (SGPT) 23 AST (SGOT) 29 BILIRUBIN 0.4 ALK PHOS 71 Lab 10/27/24 0946 CHOLESTEROL 138 LDL CHOL 72 HDL CHOL 56 TRIGLYCERIDES 42 Brief Urine Lab Results (Last result in the past 365 days) Color Clarity Blood Leuk Est Nitrite Protein CREAT Urine HCG 10/28/24 0009 Yellow Clear Negative Trace Negative 30 mg/dL (1+) Microbiology Results Abnormal None MRI Brain Without Contrast Result Date: 10/27/2024 MRI BRAIN WO CONTRAST Date of Exam: 10/27/2024 6:49 PM EDT Indication: Stroke, follow up Left facialdroop, dysarthria, left-sided weakness. Comparison: None available. Technique: Routine multiplanar/multisequence sequence images of the brain were obtained without contrast administration. Findings: No acute infarct is present on diffusion weighted sequences. Midline structures are normal and the craniocervical junction appears satisfactory. Age-related changes are present with relatively advanced generalized volume loss and typical pontine and periventricular leukomalacia. There are also some areas of more focal cortical volume loss and underlying gliosis such as in the right frontal lobe with the appearance of prior infarct. There is otherwise no evidence of intracranial hemorrhage, mass or mass effect. There is ex vacuo prominence of the ventricles and sulci. The orbits are normal. Theparanasal sinuses are grossly clear. Impression: Impression: Advanced chronic and age-related changes are noted as above. There is otherwise no evidence of acute infarct, hemorrhage, mass or mass effect. Electronically Signed: Saulo Romo MD 10/27/2024 10:17 PM EDT Workstation ID: [id number] EEG Result Date: 10/27/2024 History: 89 y old male , AMS. r/o seizure Procedure: A digital electroencephalogram was performed in the Clinical Neurophysiology Laboratory. The 10/20 International System of electrode placement wasused and both Bipolar and referential electrode montages were monitored. EEG Description: This EEG is continuous and symmetrical. During the awake state with eye closed, there is a posterior dominaterhythm of -9- Hz that is symmetrical and reacts appropriately to eye opening. Anterior to posterioramplitude frequency gradient is preserved. With Drowsiness, there is waxing and waning of the posterior dominant rhythm with eventual replacement by a mixture of beta, alpha and theta activity. Photic stimulation using a stepwise increase in photic frequency, results in driving response but no activation of epileptiform activity. A prolonged Lead I EKG rhythm strip revealed heart rate at --70--/min Interpretation: This EEG obtained in the awake and drowsy state is normal for age. Clinical correlation: The diagnosis of epilepsy is clinical one. A normal EEG dose not excludes this Diagnosis. However there are no epileptiform features in this recording to suggest an underlining diagnosis of Epilepsy. Therefore, Clinical correlation is recommended. Current medications: Scheduled Meds:aspirin, 81 mg, Oral, Daily Or aspirin, 300 mg, Rectal, Daily atorvastatin, 40 mg, Oral, Nightly sodium chloride, 10 mL, Intravenous, Q12H Continuous Infusions: PRN Meds:. ipratropium-albuterol melatonin sodium chloride sodium chloride Assessment & Plan Assessment & Plan Active Hospital Problems Diagnosis POA Stroke-like symptoms [R29.90] Yes Essential hypertension [I10] Yes Mixed hyperlipidemia [E78.2] Yes Dementia [F03.90] Yes Resolved Hospital Problems No resolved problems to display. Brief Hospital Course to date: Jessica Burnham is a 89 y.o. male with a past medical history of Former tobacco use, COPD, dementia, sciatica, and hypertension presenting with altered mental status. 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 Recs asa 81mg daily and lipitor 40mg qhs. 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 Total chol 138 HDL 56 LDL 72 Dysphagia --OYSTER TONGER states that solids get stuck and then coughs up and recs GI consult for possible EGD HTN --normotension BP now ok per neuro. Restart home norvasc HL Dementia --continue home meds LLE swelling --LLE duplex pending COPD without exacerbation Expected Discharge Location and Transportation: from [place] Expected Discharge Expected Discharge Date: 10/29/2024; Expected Discharge Time: VTE Prophylaxis: Mechanical VTE prophylaxis orders are present. AM-PAC 6 Clicks Score (PT): 16 (10/28/24 1030) CODE STATUS: There are no questions and answers to display. Saeed Monique MD 10/28/24 1328 Roby Mckenzie MD at 10/28/24 1301 Stroke Progress Note Chief Complaint: Altered mental status Subjective Subjective Subjective: The patient is lying down in the bed in [facility]. No family were at the bedside. The patient stated thathe is doing okay this morning denies having any new stroke or strokelike symptoms. I discussed with the patient imaging findings and what could possibly explain his symptoms. We alsodiscussed management plan moving forward. As requested by the nurse, I called the patient's daughter Ms. Saranya Carter and updated her about her father's condition together with the available imaging findings and lab tests. All questions and concerns by the patient's daughter were answered. No other acute complains at this time Review of Systems Constitutional: No fatigue Objective Temp: [97.5 ??F (36.4 ??C)-98.5 ??F (36.9 ??C)] 98.5 ??F (36.9 ??C) Heart Rate: [81-89] 82 Resp: [17-18] 18 BP: (141-170)/(93-116) 141/112 Objective GEN: lying in bed; in NAD HENT: normocephalic, non-erythematous oropharynx NEURO: Mental Status: A&O x 2, interactive, able to follow commands Speech: Intact Articulation CN 2-12: II - PERRLA III, IV, - EOMI VII -no gross facial asymmetry VIII - Auditory acuity intact XII - Tongue protrudes midline Motor: Patient is able to move all 4 extremities against gravity with no drift appreciated Sensory: intact light touch throughout Coordination: no ataxia with [id number]-[id number] testing Gait/Station: deferred Results Review: I reviewed the patient's new clinical results. WBC Date Value Ref Range Status 10/28/2024 4.81 3.40 - 10.80 10*3/mm3 Final RBC Date Value Ref Range Status 10/28/2024 5.42 4.14 - 5.80 10*6/mm3 Final Hemoglobin Date Value Ref Range Status 10/28/2024 14.9 13.0 - 17.7 g/dL Final Hematocrit Date Value Ref Range Status 10/28/2024 43.1 37.5 - 51.0 % Final MCV Date Value Ref Range Status 10/28/2024 79.5 79.0 - 97.0 fL Final MCH Date Value Ref Range Status 10/28/2024 27.5 26.6 - 33.0 pg Final MCHC Date Value Ref Range Status 10/28/2024 34.6 31.5 - 35.7 g/dL Final RDW Date Value Ref Range Status 10/28/2024 15.1 12.3 - 15.4 % Final RDW-SD Date Value Ref Range Status 10/28/2024 43.6 37.0 - 54.0 fl Final MPV Date Value Ref Range Status 10/28/2024 10.9 6.0 - 12.0 fL Final Platelets Date Value Ref Range Status 10/28/2024 168 140 - 450 10*3/mm3 Final Neutrophil % Date Value Ref Range Status 10/27/2024 33.3 (L) 42.7 - 76.0 % Final Lymphocyte % Date Value Ref Range Status 10/27/2024 43.6 19.6 - 45.3 % Final Monocyte % Date Value Ref Range Status 10/27/2024 17.4 (H) 5.0 - 12.0 % Final Eosinophil % Date Value Ref Range Status 10/27/2024 4.3 0.3 - 6.2 % Final Basophil % Date Value Ref Range Status 10/27/2024 1.0 0.0 - 1.5 % Final Immature Grans % Date Value Ref Range Status 10/27/2024 0.4 0.0 - 0.5 % Final Neutrophils, Absolute Date Value Ref Range Status 10/27/2024 1.69 (L) 1.70 - 7.00 10*3/mm3 Final Lymphocytes, Absolute Date Value Ref Range Status 10/27/2024 2.21 0.70 - 3.10 10*3/mm3 Final Monocytes, Absolute Date Value Ref Range Status 10/27/2024 0.88 0.10 - 0.90 10*3/mm3 Final Eosinophils, Absolute Date Value Ref Range Status 10/27/2024 0.22 0.00 - 0.40 10*3/mm3 Final Basophils, Absolute Date Value Ref Range Status 10/27/2024 0.05 0.00 - 0.20 10*3/mm3 Final Immature Grans, Absolute Date Value Ref Range Status 10/27/2024 0.02 0.00 - 0.05 10*3/mm3 Final nRBC Date Value Ref Range Status 10/27/2024 0.0 0.0 - 0.2 /100 WBC Final Lab Results Component Value Date GLUCOSE 85 10/28/2024 BUN 21.0 10/28/2024 CREATININE 1.10 10/28/2024 NA 140 10/28/2024 K 4.0 10/28/2024 CL 104 10/28/2024 CALCIUM 9.2 10/28/2024 PROTEINTOT 7.5 10/27/2024 ALBUMIN 4.3 10/27/2024 ALT 23 10/27/2024 AST 29 10/27/2024 ALKPHOS 71 10/27/2024 BILITOT 0.4 10/27/2024 GLOB 3.2 10/27/2024 AGRATIO 1.3 10/27/2024 BCR 19.1 10/28/2024 ANIONGAP 12.0 10/28/2024 EGFR 64.2 10/28/2024 MRI Brain Without Contrast Result Date: 10/27/2024 Impression: Advanced chronic and age-related changes are noted as above. There is otherwise no evidence of acute infarct, hemorrhage, mass or mass effect. Electronically Signed: Saulo Romo MD 10/27/2024 10:17 PM EDT Workstation ID: [id number] -[facility] wo on 10/26/2024 images were personally reviewed and showed no acute ischemic or hemorrhagic stroke. 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 There is distal M1 stenosis of the left MCA -MRI brain images from 10/27/2024 images were personally reviewed and showed no evidence of acute ischemic or hemorrhagic stroke. The area of hypodensity visible on the CT scan that was concerning forchronic right MCA ischemic infarct favored chronic small vessel ischemic changes instead -Transthoracic echocardiogram from 10/28/2024 report was personally reviewed and showed normal left atrial size -Duplex ultrasound of the left lower extremity from 10/28/2024 report was unremarkable for DVT -Routine EEG from 10/27/2024 was unremarkable -A1c from 10/27/2024 was 5.23% -LDL from 10/27/2024 was 72 Assessment/Plan This is 89-year-old -[place] male, right-handed with multiple vascular risk factor presented to outside hospital for altered mental status. Transferred to our facility for full stroke workup and higher level of care. Patient was not a candidate for IV thrombolytic therapy or mechanical thrombectomy as he was back to his baseline. 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 This is less likely to be vascular in nature -[facility] wo on 10/26/2024 images were personally reviewed and showed no acute ischemic or hemorrhagic stroke. 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 There is distal M1 stenosis of the left MCA -MRI brain images from 10/27/2024 images were personally reviewed and showed no evidence of acute ischemic or hemorrhagic stroke. The area of hypodensity visible on the CT scan that was concerning forchronic right MCA ischemic infarct favored chronic small vessel ischemic changes instead -Transthoracic echocardiogram from 10/28/2024 report was personally reviewed and showed normal left atrial size -Duplex ultrasound of the left lower extremity from 10/28/2024 report was unremarkable for DVT -Routine EEG from 10/27/2024 was unremarkable -A1c from 10/27/2024 was 5.23% -LDL from 10/27/2024 was 72 Recommendations -Treat underlying metabolic/infectious etiologies of encephalopathy -Continue aspirin 81 mg daily for secondary stroke prevention. -Continue atorvastatin 40 mg nightly for secondary stroke prevention. Target LDL level of less than70 -Patient to continue on telemetry. Consider cardiac monitoring for 2 to 4 weeks upon discharge -Target blood pressure goals normotension -NIH\neurocheck per protocol -Activity as tolerated, fall risk precautions -PT/OT/OYSTER TONGER evaluation #Essential hypertension, complicated by uncontrolled hypertension -As detailed above #Hyperlipidemia -As detailed above #Dementia -Continue home meds -Management by medicine team #Left lower extremity swelling -Doppler left lower extremity is unremarkable #Microcytic anemia - H&H stable - Monitor any signs and symptoms of bleed - Management by medicine team Stroke will sign off. Please call for any further questions or concerns Roby Mckenzie MD, Msc, PhD Vascular Neurologist [facility] 1306 Physical Therapy Notes (most recent note) Jennifer Hendrickson PT at 10/28/24 2308 Version 1 of 1 Patient Name: Jessica Burnham : 1935 Today's Date: 10/28/2024 Admit Date: 10/26/2024 Visit Dx: ICD-10-CM ICD-9-CM 1. Esophageal dysphagia R13.19 787.29 Patient Active Problem List Diagnosis Stroke-like symptoms Essential hypertension Mixed hyperlipidemia Dementia Past Medical History: Diagnosis Date Hypertension No past surgical history on file. General Information Row Name 10/28/24 1525 Physical Therapy Time and Intention Document Type evaluation -MAI Mode of Treatment physical therapy - Row Name 10/28/24 1525 General Information Patient Profile Reviewed yes -MAI Prior Level of Function -- Per chart facility resident, limited historian. -MAI Existing Precautions/Restrictions fall;other (see comments) cognition -MAI Barriers to Rehab cognitive status;previous functional deficit -MAI Row Name 10/28/24 1525 Living Environment Current Living Arrangements residential facility -MAI Row Name 10/28/24 1525 Safety Issues/Impairments Affecting Functional Mobility Impairments Affecting Function (Mobility) balance;cognition;endurance/activity tolerance;postural/trunk control -MAI User Carmona (r) = Recorded By, (t) = Taken By, (c) = Cosigned By Initials Name Provider Type MAI Jennifer Hendrickson PT Physical Therapist Mobility Row Name 10/28/24 1528 Bed Mobility Bed Mobility supine-sit -MAI Supine-Sit [place] (Bed Mobility) verbal cues;nonverbal cues (demo/gesture);minimum assist (75% patient effort) -MAI Assistive Device (Bed Mobility) head of bed elevated;bed rails -MAI Comment, (Bed Mobility) Pt utilized bed rail -MAI Row Name 10/28/24 1528 Transfers Comment, (Transfers) Cues for sequencing and hand placement with FWW. -MAI Row Name 10/28/24 1528 Sit-Stand Transfer Sit-Stand [place] (Transfers) minimum assist (75% patient effort) -MAI Assistive Device (Sit-Stand Transfers) walker, front-wheeled -MAI Comment, (Sit-Stand Transfer) VCs -MAI Row Name 10/28/24 1528 Gait/Stairs (Locomotion) [place] Level (Gait) contact guard -MAI Assistive Device (Gait) walker, front-wheeled -MAI Patient was able to Ambulate yes -MAI Distance in Feet (Gait) 30 -MAI Deviations/Abnormal Patterns (Gait) bilateral deviations -MAI Left Sided Gait Deviations forward flexed posture -MAI Comment, (Gait/Stairs) Pt demo step to gait pattern with FWW. Pt had episode of bowel incontinence on the way to restroom. Distance limited by fatigue -MAI User Carmona (r) = Recorded By, (t) = Taken By, (c) = Cosigned By Initials Name Provider Type Jennifer Olvera, PT Physical Therapist Obj/Interventions Row Name 10/28/24 153 Range of Motion Comprehensive General Range of Motion bilateral lower extremity ROM WFL -MAI Row Name 10/28/24 153 Strength Comprehensive (MMT) General Manual Muscle Testing (MMT) Assessment lower extremity strength deficits identified -MAI Comment, General Manual Muscle Testing (MMT) Assessment LEs grossly 4-/5 -MAI Row Name 10/28/24 153 Balance Balance Assessment sitting static balance;standing static balance;sitting dynamic balance;standing dynamic balance -MAI Static Sitting Balance independent -MAI Dynamic Sitting Balance standby assist -MAI Position, Sitting Balance unsupported;sitting edge of bed -MAI Static Standing Balance contact guard -MAI Dynamic Standing Balance contact guard -MAI Position/Device Used, Standing Balance supported;walker, front-wheeled -MAI Balance Interventions sitting;standing;sit to stand -MAI Comment, Balance No overt LOB, -MAI Row Name 10/28/24 153 Sensory Assessment (Somatosensory) Sensory Assessment (Somatosensory) LE sensation intact -MAI User Carmona (r) = Recorded By, (t) = Taken By, (c) = Cosigned By Initials Name Provider Type Jennifer Olvera PT Physical Therapist Goals/Plan Row Name 10/28/241534 Bed Mobility Goal 1 (PT) Activity/Assistive Device (Bed Mobility Goal 1, PT) sit to supine/supine to sit -MAI [place] Level/Cues Needed (Bed Mobility Goal 1, PT) independent -MAI Time Frame (Bed Mobility Goal 1, PT) nursing home goal (LTG);10 days -MAI Row Name 10/28/241534 Transfer Goal 1 (PT) Activity/Assistive Device (Transfer Goal 1, PT) [id number] -MAI [place] Level/Cues Needed (Transfer Goal 1, PT) modified independence -MAI Time Frame (Transfer Goal 1, PT) short term goal (STG);5 days -MAI Row Name 10/28/241534 Gait Training Goal 1 (PT) Activity/Assistive Device (Gait Training Goal 1, PT) gait (walking locomotion);assistive device use-MAI [place] Level (Gait Training Goal 1, PT) modified independence -MAI Distance (Gait Training Goal 1, PT) 100 -MAI Time Frame (Gait Training Goal 1, PT) nursing home goal (LTG);10 days -MAI Row Name 10/28/241534 Therapy Assessment/Plan (PT) Planned Therapy Interventions (PT) balance training;bed mobility training;gait training;home exercise program;strengthening;transfer training;patient/family education;postural re-education;neuromuscular re-education -MAI User Carmona (r) = Recorded By, (t) = Taken By, (c) = Cosigned By Initials Name Provider Type Jennifer Olvera, PT Physical Therapist Clinical Impression Row Name 10/28/241530 Pain Pretreatment Pain Rating 0/10 - no pain -MAI Posttreatment Pain Rating 0/10 - no pain -MAI Row Name 10/28/241530 Plan of Care Review Plan of Care Reviewed With patient -MAI Progress no change -MAI Outcome Evaluation PT evaluation completed. Pt able to state name but unable to state time/date or place. Pt req CGA with ambulating in room with FWW, had episode of incontinence. Pt demo strength and balance deficits, will beneift from IP PT services. Recommend SNF upon DC. -MAI Row Name 10/28/24 1531 Therapy Assessment/Plan (PT) Patient/Family Therapy Goals Statement (PT) not stated -MAI Rehab Potential (PT) fair -MAI Criteria for Skilled Interventions Met (PT) yes;skilled treatment is necessary -MAI Therapy Frequency (PT) daily -MAI Row Name 10/28/24 1531 Vital Signs Pre Systolic BP Rehab 141 nsg in room and okd -MAI Pre Treatment Diastolic BP 112 -MAI Post Systolic BP Rehab 132 -MAI Post Treatment Diastolic BP 104 -MAI Pretreatment Heart Rate (beats/min) 82 -MAI Posttreatment Heart Rate (beats/min) 82 -MAI O2 Delivery Pre Treatment room air -MAI O2 Delivery Intra Treatment room air -MAI Post SpO2 (%) 98 -MAI O2 Delivery Post Treatment room air -MAI Pre Patient Position Supine -MAI Intra Patient Position Standing -MAI Post Patient Position Sitting -MAI Row Name 10/28/24 1531 Positioning and Restraints Pre-Treatment Position in bed -MAI Post Treatment Position chair -MAI In Chair notified nsg;reclined;call light within reach;waffle cushion;encouraged to call for assist;exit alarm on;legs elevated -MAI User Carmona (r) = Recorded By, (t) = Taken By, (c) = Cosigned By Initials Name Provider Type Jennifer Olvera, PT Physical Therapist Outcome Measures Row Name 10/28/24 1536 10/28/24 1400 How much help from another person do you currently need... Turning from your back to your side while in flat bed without using bedrails? 4 -MAI 3 -BL Moving from lying on back to sitting on the side of a flat bed without bedrails? 3 -MAI 3 -BL Moving to and from a bed to a chair (including a wheelchair)? 3 -MAI 3 -BL Standing up from a chair using your arms (e.g., wheelchair, bedside chair)? 3 - MAI 3 -BL Climbing 3-5 steps with a railing? 2 -MAI 2 -BL To walk in hospital room? 3 -MAI 2 -BL AM-PAC 6 Clicks Score (PT) 18 -MAI 16 -BL Highest Level of Mobility Goal Walk 10 Steps or More-6 -MAI Stand (1 or More Minutes)-5 -BL Row Name 10/28/24 1200 10/28/24 1030 How much help from another person do you currently need... Turning from your back to your side while in flat bed without using bedrails? 3 -BL 3 -BL Moving from lying on back to sitting on the side of a flat bed without bedrails? 3 -BL 3 -BL Moving to and from a bed to a chair (including a wheelchair)? 3 -BL 3 -BL Standing up from a chair using your arms (e.g., wheelchair, bedside chair)? 3 - BL 3 -BL Climbing 3-5 steps with a railing? 2 -BL 2 -BL To walk in hospital room? 2 -BL 2 -BL AM-PAC 6 Clicks Score (PT) 16 -BL 16 -BL Highest Level of Mobility Goal Stand (1 or More Minutes)-5 -BL Stand (1 or More Minutes)-5 -BL Row Name 10/28/24 0840 How much help from another person do you currently need... Turning from your back to your side while in flat bed without using bedrails? 3 -BL Moving from lying on back to sitting on the side of a flat bed without bedrails? 3 -BL Moving to and from a bed to a chair (including a wheelchair)? 3 -BL Standing up from a chair using your arms (e.g., wheelchair, bedside chair)? 3 -BL Climbing 3-5 steps with a railing? 2 -BL To walk in hospital room? 2 -BL AM-PAC 6 Clicks Score (PT) 16 -BL Highest Level of Mobility Goal Stand (1 or More Minutes)-5 -BL Row Name 10/28/24 1536 Functional Assessment Outcome Measure Options AM-PAC 6 Clicks Basic Mobility (PT) - User Carmona (r) = Recorded By, (t) = Taken By, (c) = Cosigned By Initials Name Provider Type Jennifer Olvera PT Physical Therapist Ronnie Salas, RN Registered Nurse Physical Therapy Education Title: PT OT OYSTER TONGER Therapies (In Progress) Topic: Physical Therapy (In Progress) Point: Mobility training (Done) Learning Progress Summary Patient Acceptance, E, VU,NR by MAI at 10/28/2024 1536 Point: Home exercise program (Not Started) Learner Progress: Not documented in this visit. Point: Body mechanics (Done) Learning Progress Summary Patient Acceptance, E, VU,NR by MAI at 10/28/2024 1536 Point: Precautions (Done) Learning Progress Summary Patient Acceptance, E, VU,NR by MAI at 10/28/2024 1536 User Carmona Initials Effective Dates Name Provider Type Discipline MAI 10/01/20 - Jennifer Hendrickson PT Physical Therapist PT PT Recommendation and Plan Planned Therapy Interventions (PT): balance training, bed mobility training, gait training, home exercise program, strengthening, transfer training, patient/family education, postural re-education, neuromuscular re-education Progress: no change Outcome Evaluation: PT evaluation completed. Pt able to state name but unable to state time/date orplace. Pt req CGA with ambulating in room with FWW, had episode of incontinence. Pt demo strength and balance deficits, will beneift from IP PT services. Recommend SNF upon DC. Time Calculation: PT Evaluation Complexity History, PT Evaluation Complexity: 1-2 personal factors and/or comorbidities Examination of Body Systems (PT Eval Complexity): total of 3 or more elements Clinical Presentation (PT Evaluation Complexity): evolving Clinical Decision Making (PT Evaluation Complexity): moderate complexity Overall Complexity (PT Evaluation Complexity): moderate complexity PT Charges Row Name 10/28/24 1537 Time Calculation Start Time 1455 -MAI PT Received On 10/28/24 -MAI PT Goal Re-Cert Due Date 11/07/24 -MAI Untimed Charges PT Eval/Re-eval Minutes 62 -MAI Total Minutes Untimed Charges Total Minutes 62 -MAI Total Minutes 62 -MAI User Carmona (r) = Recorded By, (t) = Taken By, (c) = Cosigned By Initials Name Provider Type Jennifer Olvera, PT Physical Therapist Therapy Charges for Today Code Description Service Date Service Provider Modifiers Qty [id number] HC-PT EVAL MOD COMPLEXITY 5 10/28/2024 Jennfier Hendrickson PT 1 PT G-Codes Outcome Measure Options: AM-PAC 6 Clicks Basic Mobility (PT) AM-PAC 6 Clicks Score (PT): 18 PT Discharge Summary Anticipated Discharge Disposition (PT): senior living facility Jennifer Hendrickson PT 10/28/2024 1538 Occupational Therapy Notes (most recent note) Pearl Holt, OT at 10/28/24 1545 Goal Outcome Evaluation: Plan of Care Reviewed With: patient Progress: no change Outcome Evaluation: OT eval complete. Pt presents below fxl baseline with ADLs and mobility, limited by weakness, poor activity tolerance, balance deficits, and baseline cognitive impairments (dementia). Pt ambulated to and from bathroom with FWW and CGA- pt dependent with pericare and needs BRIEF WITH MOBILITY. Pt would benefit from ongoing skilled OT services to progress to PLOF. Rec d/c to SNF. Anticipated Discharge Disposition (OT): senior living facility 1545 Speech Language Pathology Notes (most recent note) Sissy Lopez MS CCC-OYSTER TONGER at 10/27/24 1447 Goal Outcome Evaluation: Plan of Care Reviewed With: patient Anticipated Discharge Disposition (OYSTER TONGER): senior living facility OYSTER TONGER Diagnosis: mild, cognitive-linguistic disorder (10/27/24 1300) OYSTER TONGER Swallowing Diagnosis: functional oral phase, R/O pharyngeal dysphagia, suspected esophageal dysphagia (10/27/24 1300) 1447 documented in this encounter Medications at Time of Discharge aspirin 81 MG chewable tablet Chew 1 tablet Daily 30 tablet 2 11/02/2024 11:18 AM EDT 11/02/2024 01/31/2025 atorvastatin (LIPITOR) 40 MG tablet Take 1 tablet by mouth Every Night 90 tablet 11/02/2024 11:18 AM EDT 11/02/2024 01/31/2025 carvedilol (COREG) 6.25 MG tablet Take 1 tablet by mouth 2 (Two) Times a Day With Meals. finasteride (PROSCAR) 5 MG tablet Take 1 tablet by mouth Daily. losartan (COZAAR) 25 MG tablet Take 1 tablet by mouth Daily. 90 tablet 11/02/2024 11:18 AM EDT 11/02/2024 omeprazole (priLOSEC) 40 MG capsule Take 1 capsule by mouth 2 (Two) Times a Day. tamsulosin (FLOMAX) 0.4 MG capsule 24 hr capsule Take 2 capsules by mouth Daily. documented as of this encounter Progress Notes * Clark Lopez MD - 11/02/2024 10:17 AM EDT [facility] Cardiology Inpatient Progress Note Chief Complaint/Reason for consult: stroke work-up, AF Subjective No complaints aside from wanting to go home, no CP, palpitations Vital Sign Min/Max for last 24 hours Temp Min: 97.6 ??F (36.4 ??C) Max: 98.9 ??F (37.2 ??C) BP Min: 120/87 Max: 153/98 Pulse Min: 76 Max: 92 Resp Min: 16 Max: 18 SpO2 Min: 94 % Max: 98 % No data recorded Intake/Output Summary (Last 24 hours) at 11/02/2024 1017 Last data filed at 11/02/2024 0900 Gross per 24 hour Intake 480 ml Output 1090 ml Net -610 ml Gen: elderly black male, sitting up in bed, comfortable appearing HEENT: MMM, sclerae anicteric, conjunctivae normal CV: regular rate, irregularly irregular rhythm, no murmurs or rubs, normal S1, S2. 2+ radial and DPpulses Pulm: RA, normal work of breathing, no wheezes, rales, rhonchi Abd: soft, nontender, nondistended Ext: normal bulk for age, normal tone, no dependent edema Tele: AF, controled rates Results Review (reviewed the patient's recent labs in the electronic medical record): EKG: AF Radiology: No radiology results for the last day Lab Results Component Value Date WBC 4.81 10/28/2024 HGB 14.9 10/28/2024 HCT 43.1 10/28/2024 MCV 79.5 10/28/2024 PLT 168 10/28/2024 Lab Results Component Value Date GLUCOSE 85 10/28/2024 CALCIUM 9.2 10/28/2024 NA 140 10/28/2024 K 4.0 10/28/2024 CO2 24.0 10/28/2024 CL 104 10/28/2024 BUN 21.0 10/28/2024 CREATININE 1.10 10/28/2024 BCR 19.1 10/28/2024 ANIONGAP 12.0 10/28/2024 Lab Results Component Value Date HGBA1C 5.33 10/27/2024 Lab Results Component Value Date CHOL 138 10/27/2024 TRIG 42 10/27/2024 HDL 56 10/27/2024 LDL 72 10/27/2024 Assessment Persistent AF - previously discussed with daughter possibility of AC, she preferred aspirin alone despite increased stroke risk - rates controlled with carvedilol - no indication for monitor on discharge, this patient has been in atrial fibrillation since presentation to [facility] - GDMT: carvedilol, added losartan with elevated BP - asymptomatic, euvolemic Anticipate d/c home today. Can follow-up in 2 months. Vu Lopez MD 11/02/2024 10:17 EDT * Milka Leblanc APRN - 11/01/2024 12:40 PM EDT Images from the original note were not included. [facility] Medicine Services PROGRESS NOTE Patient Name: Jessica Burnham : 1935 Date of Admission: 10/26/2024 Primary Care Physician: Provider, No Known Subjective Subjective CC: AMS HPI: No noted issues overnight Dressed and says he is going home today Objective Objective Vital Signs: Temp: [97.3 ??F (36.3 ??C)-97.9 ??F (36.6 ??C)] 97.7 ??F (36.5 ??C) Heart Rate: [71-124] 84 Resp: [18] 18 BP: (120-152)/(82-103) 120/87 Physical Exam: Constitutional: No acute distress, awake, alert, no family at bedside HENT: NCAT, mucous membranes moist Respiratory: Clear to auscultation bilaterally, respiratory effort normal Cardiovascular: irreg, no murmurs, rubs, or gallops Gastrointestinal: Positive bowel sounds, soft, nontender, nondistended Musculoskeletal: No bilateral ankle edema Psychiatric: Appropriate affect, cooperative Neurologic: Oriented x 3, CARRERA, speech clear Skin: No rashes Results Reviewed: LAB RESULTS: Lab 10/28/24 0842 10/27/24 2354 10/26/24 2321 WBC 4.81 5.07 -- HEMOGLOBIN 14.9 14.6 -- HEMATOCRIT 43.1 41.5 -- PLATELETS 168 161 -- NEUTROS ABS -- 1.69* -- IMMATURE GRANS (ABS) -- 0.02 -- LYMPHS ABS -- 2.21 -- MONOS ABS -- 0.88 -- EOS ABS -- 0.22 -- MCV 79.5 79.8 -- LACTATE -- 1.3 1.0 Lab 10/28/24 0842 10/27/24 2354 10/27/24 0946 SODIUM 140 137 -- POTASSIUM 4.0 4.1 -- CHLORIDE 104 103 -- CO2 24.0 19.8* -- ANION GAP 12.0 14.2 -- BUN 21.0 21.7 -- CREATININE 1.10 1.08 -- EGFR 64.2 65.6 -- GLUCOSE 85 80 -- CALCIUM 9.2 9.4 -- MAGNESIUM -- 2.2 -- HEMOGLOBIN A1C -- -- 5.33 Lab 10/27/24 2354 TOTAL PROTEIN 7.5 ALBUMIN 4.3 GLOBULIN 3.2 ALT (SGPT) 23 AST (SGOT) 29 BILIRUBIN 0.4 ALK PHOS 71 Lab 10/27/24 0946 CHOLESTEROL 138 LDL CHOL 72 HDL CHOL 56 TRIGLYCERIDES 42 Brief Urine Lab Results (Last result in the past 365 days) Color Clarity Blood Leuk Est Nitrite Protein CREAT Urine HCG 10/30/24 1012 Yellow Clear Negative Moderate (2+) Negative 30 mg/dL (1+) Microbiology Results Abnormal None No radiology results from the last 24 hrs Results for orders placed during the hospital encounter of 10/26/24 Adult Transthoracic Echo Complete W/ Cont if Necessary Per Protocol (With Agitated Saline) 10/28/2024 5:29 PM Interpretation Summary Left ventricular systolic function is moderately decreased. Calculated left ventricular EF = 37.8% Left ventricular ejection fraction appears to be 36 - 40%. Left ventricular diastolic function was indeterminate. Normal right ventricular cavity size and wall thickness noted. Mildly reduced right ventricular systolic function noted. 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 Consider contrasted echo imaging versus cardiac MRI for further characterization if clinically warranted. The left atrial cavity is mildly dilated. Mild mitral valve regurgitation is present. Mild aortic valve regurgitation is present. Mild dilation of the aortic root is present. The aortic root measures 3.8 cm. Current medications: Scheduled Meds:aspirin, 81 mg, Oral, Daily Or aspirin, 300 mg, Rectal, Daily atorvastatin, 40 mg, Oral, Nightly carvedilol, 6.25 mg, Oral, BID With Meals losartan, 25 mg, Oral, Q24H pharmacy consult - MTM, , Not Applicable, Daily pantoprazole, 40 mg, Oral, Q AM sodium chloride, 10 mL, Intravenous, Q12H Continuous Infusions:Pharmacy Consult, PRN Meds:. ipratropium-albuterol melatonin Pharmacy Consult sodium chloride sodium chloride Assessment & Plan Assessment & Plan Active Hospital Problems Diagnosis POA Stroke-like symptoms [R29.90] Yes A-fib [I48.91] Yes CHF (congestive heart failure) [I50.9] Yes BPH (benign prostatic hyperplasia) [N40.0] Yes Essential hypertension [I10] Yes Mixed hyperlipidemia [E78.2] Yes Dementia [F03.90] Yes Resolved Hospital Problems No resolved problems to display. Brief Hospital Course to date: Jessica Burnham is a 89 y.o. male with a past medical history of Former tobacco use, COPD, dementia, sciatica, and hypertension presenting with altered mental status. This patient's problems and plans were partially entered by my partner and updated as appropriate by me 11/01/24. 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 Recs asa 81mg daily and lipitor 40mg qhs. --MRI brain showed no acute --echo with reduced EF 37.8%. No PFO noted --EEG was unremarkable --A1C 5.33. Total chol 138 HDL 56 LDL 72 New Dx Afib rate controlled--10/29 New Dx CHF--10/29 Reduced EF of 37.8 --currently rate controlled --no hx per daughter, but she feels pt not a good candidate for a/c but agrees to ASA. -- Echo reviewed with EF 37.8. -- Patient asymptomatic. On room air. -- Consulted cardiology. Amlodipine discontinued, losartan and carvedilol added -- Plans if patient remaining asymptomatic would continue with more conservative management at thistime. Dysphagia --OYSTER TONGER states that solids get stuck and then coughs up and recs GI consult --s/p EGD and s/p empiric dilatation 10/29. Ciaran well. --GI noted nl EGD otherwise. --reduced PPI to daily HTN/HLD --normotension BP now ok per neuro. -- Amlodipine discontinued and started carvedilol and losartan per cardiology -- daughter reports he was on a slew of medicine prior to admission but unaware of current meds. Pharmacy consult placed in anticipation of dc soon Dementia --continue home meds. Stable LLE swelling --LLE duplex neg. Stable. COPD without exacerbation --oxygen as needed Debility Falls --lives alone. Pt of [facility]. Has caregivers help 4 days a week. Dtr/next of kin want SNF at [place] but patient not agreeable. Attempting to get coverage on weekends as well Expected Discharge Location and Transportation: home Expected Discharge Expected Discharge Date: 11/02/2024; Expected Discharge Time: VTE Prophylaxis: Mechanical VTE prophylaxis orders are present. AM-PAC 6 Clicks Score (PT): 17 (10/31/242029) CODE STATUS: There are no questions and answers to display. Milka Leblanc APRN 11/01/24 * Clark Lopez MD - 11/01/2024 10:09 AM EDT [facility] Cardiology Inpatient Progress Note Chief Complaint/Reason for consult: stroke work-up, AF Subjective No complaints aside from wanting to go home, afebrile overnight, oriented only to self Vital Sign Min/Max for last 24 hours Temp Min: 97.3 ??F (36.3 ??C) Max: 97.9 ??F (36.6 ??C) BP Min: 127/86 Max: 152/103 Pulse Min: 71 Max: 124 Resp Min: 18 Max: 18 SpO2 Min: 96 % Max: 98 % No data recorded Intake/Output Summary (Last 24 hours) at 11/01/2024 1009 Last data filed at 11/01/2024 0700 Gross per 24 hour Intake 360 ml Output 450 ml Net -90 ml Gen: elderly black male, sitting up in bed, comfortable appearing HEENT: MMM, sclerae anicteric, conjunctivae normal CV: regular rate, irregularly irregular rhythm, no murmurs or rubs, normal S1, S2. 2+ radial and DPpulses Pulm: RA, normal work of breathing, no wheezes, rales, rhonchi Abd: soft, nontender, nondistended Ext: normal bulk for age, normal tone, no dependent edema Tele: AF, controled rates Results Review (reviewed the patient's recent labs in the electronic medical record): EKG: AF Radiology: No radiology results for the last day Lab Results Component Value Date WBC 4.81 10/28/2024 HGB 14.9 10/28/2024 HCT 43.1 10/28/2024 MCV 79.5 10/28/2024 PLT 168 10/28/2024 Lab Results Component Value Date GLUCOSE 85 10/28/2024 CALCIUM 9.2 10/28/2024 NA 140 10/28/2024 K 4.0 10/28/2024 CO2 24.0 10/28/2024 CL 104 10/28/2024 BUN 21.0 10/28/2024 CREATININE 1.10 10/28/2024 BCR 19.1 10/28/2024 ANIONGAP 12.0 10/28/2024 Lab Results Component Value Date HGBA1C 5.33 10/27/2024 Lab Results Component Value Date CHOL 138 10/27/2024 TRIG 42 10/27/2024 HDL 56 10/27/2024 LDL 72 10/27/2024 Assessment Persistent AF - previously discussed with daughter possibility of AC, she preferred aspirin alone despite increased stroke risk - rates controlled with carvedilol - no indication for monitor on discharge, this patient has been in atrial fibrillation since presentation to [facility] - GDMT: carvedilol, add losartan with elevated BP - asymptomatic, euvolemic Vu Lopez MD 11/01/2024 10:09 EDT * Clark Lopez MD - 10/31/2024 4:49 PM EDT [facility] Cardiology Inpatient Progress Note Chief Complaint/Reason for consult: stroke Subjective No complaints today Vital Sign Min/Max for last 24 hours Temp Min: 97.5 ??F (36.4 ??C) Max: 97.9 ??F (36.6 ??C) BP Min: 133/94 Max: 157/105 Pulse Min: 71 Max: 92 Resp Min: 18 Max: 18 SpO2 Min: 97 % Max: 97 % No data recorded Intake/Output Summary (Last 24 hours) at 10/31/2024 1650 Last data filed at 10/31/2024 0600 Gross per 24 hour Intake -- Output 270 ml Net -270 ml Gen: well developed, lying in bed, comfortable appearing HEENT: MMM, sclerae anicteric, conjunctivae normal CV: regular rate, irregularly irregular rhythm, no murmurs or rubs, normal S1, S2. 2+ radial and DPpulses Pulm: RA, normal work of breathing, no wheezes, rales, rhonchi Abd: soft, nontender, nondistended Ext: normal bulk for age, normal tone, no dependent edema Tele: AF, controled rates Results Review (reviewed the patient's recent labs in the electronic medical record): EKG: AF Radiology: No radiology results for the last day Lab Results Component Value Date WBC 4.81 10/28/2024 HGB 14.9 10/28/2024 HCT 43.1 10/28/2024 MCV 79.5 10/28/2024 PLT 168 10/28/2024 Lab Results Component Value Date GLUCOSE 85 10/28/2024 CALCIUM 9.2 10/28/2024 NA 140 10/28/2024 K 4.0 10/28/2024 CO2 24.0 10/28/2024 CL 104 10/28/2024 BUN 21.0 10/28/2024 CREATININE 1.10 10/28/2024 BCR 19.1 10/28/2024 ANIONGAP 12.0 10/28/2024 Lab Results Component Value Date HGBA1C 5.33 10/27/2024 Lab Results Component Value Date CHOL 138 10/27/2024 TRIG 42 10/27/2024 HDL 56 10/27/2024 LDL 72 10/27/2024 Assessment Persistent AF - previously discussed with daughter possibility of AC, she preferred aspirin alone. If he does go to rehab with closer supervision would strongly consider AC - rates controlled with carvedilol HFmrEF - GDMT: carvedilol - asymptomatic, euvolemic Vu Lopez MD 10/31/2024 16:50 EDT * Milka Leblanc, MACHINE TOOL TECHNOLOGY INSTRUCTOR - 10/31/2024 11:11 AM EDT Images from the original note were not included. [facility] Medicine Services PROGRESS NOTE Patient Name: Jessica Burnham : 1935 Date of Admission: 10/26/2024 Primary Care Physician: Provider, No Known Subjective Subjective CC: AMS HPI: No noted issues overnight BP initially elevated, but improved after taking meds Most concerned currently about what he is going to watch on TV Objective Objective Vital Signs: Temp: [97.5 ??F (36.4 ??C)-97.9 ??F (36.6 ??C)] 97.5 ??F (36.4 ??C) Heart Rate: [71-92] 71 Resp: [18] 18 BP: (133-157)/(90-111) 133/94 Physical Exam: Constitutional: No acute distress, awake, alert, no family at bedside HENT: NCAT, mucous membranes moist Respiratory: Clear to auscultation bilaterally, respiratory effort normal Cardiovascular: RRR, no murmurs, rubs, or gallops Gastrointestinal: Positive bowel sounds, soft, nontender, nondistended Musculoskeletal: No bilateral ankle edema Psychiatric: Appropriate affect, cooperative Neurologic: Oriented x 3, CARRERA, speech clear Skin: No rashes Results Reviewed: LAB RESULTS: Lab 10/28/24 0842 10/27/24 2354 10/26/24 2321 WBC 4.81 5.07 -- HEMOGLOBIN 14.9 14.6 -- HEMATOCRIT 43.1 41.5 -- PLATELETS 168 161 -- NEUTROS ABS -- 1.69* -- IMMATURE GRANS (ABS) -- 0.02 -- LYMPHS ABS -- 2.21 -- MONOS ABS -- 0.88 -- EOS ABS -- 0.22 -- MCV 79.5 79.8 -- LACTATE -- 1.3 1.0 Lab 10/28/24 0842 10/27/24 2354 10/27/24 0946 SODIUM 140 137 -- POTASSIUM 4.0 4.1 -- CHLORIDE 104 103 -- CO2 24.0 19.8* -- ANION GAP 12.0 14.2 -- BUN 21.0 21.7 -- CREATININE 1.10 1.08 -- EGFR 64.2 65.6 -- GLUCOSE 85 80 -- CALCIUM 9.2 9.4 -- MAGNESIUM -- 2.2 -- HEMOGLOBIN A1C -- -- 5.33 Lab 10/27/24 2354 TOTAL PROTEIN 7.5 ALBUMIN 4.3 GLOBULIN 3.2 ALT (SGPT) 23 AST (SGOT) 29 BILIRUBIN 0.4 ALK PHOS 71 Lab 10/27/24 0946 CHOLESTEROL 138 LDL CHOL 72 HDL CHOL 56 TRIGLYCERIDES 42 Brief Urine Lab Results (Last result in the past 365 days) Color Clarity Blood Leuk Est Nitrite Protein CREAT Urine HCG 10/30/24 1012 Yellow Clear Negative Moderate (2+) Negative 30 mg/dL (1+) Microbiology Results Abnormal None No radiology results from the last 24 hrs Results for orders placed during the hospital encounter of 10/26/24 Adult Transthoracic Echo Complete W/ Cont if Necessary Per Protocol (With Agitated Saline) 10/28/2024 5:29 PM Interpretation Summary Left ventricular systolic function is moderately decreased. Calculated left ventricular EF = 37.8% Left ventricular ejection fraction appears to be 36 - 40%. Left ventricular diastolic function was indeterminate. Normal right ventricular cavity size and wall thickness noted. Mildly reduced right ventricular systolic function noted. 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 Consider contrasted echo imaging versus cardiac MRI for further characterization if clinically warranted. The left atrial cavity is mildly dilated. Mild mitral valve regurgitation is present. Mild aortic valve regurgitation is present. Mild dilation of the aortic root is present. The aortic root measures 3.8 cm. Current medications: Scheduled Meds:aspirin, 81 mg, Oral, Daily Or aspirin, 300 mg, Rectal, Daily atorvastatin, 40 mg, Oral, Nightly carvedilol, 6.25 mg, Oral, BID With Meals [START ON 11/01/2024] pantoprazole, 40 mg, Oral, Q AM sodium chloride, 10 mL, Intravenous, Q12H Continuous Infusions: PRN Meds:. ipratropium-albuterol melatonin sodium chloride sodium chloride Assessment & Plan Assessment & Plan Active Hospital Problems Diagnosis POA Stroke-like symptoms [R29.90] Yes A-fib [I48.91] Yes CHF (congestive heart failure) [I50.9] Yes BPH (benign prostatic hyperplasia) [N40.0] Yes Essential hypertension [I10] Yes Mixed hyperlipidemia [E78.2] Yes Dementia [F03.90] Yes Resolved Hospital Problems No resolved problems to display. Brief Hospital Course to date: Jessica Burnham is a 89 y.o. male with a past medical history of Former tobacco use, COPD, dementia, sciatica, and hypertension presenting with altered mental status. This patient's problems and plans were partially entered by my partner and updated as appropriate by me 10/31/24. 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 Recs asa 81mg daily and lipitor 40mg qhs. 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 No PFO noted --EEG was unremarkable --A1C 5.33. Total chol 138 HDL 56 LDL 72 New Dx Afib rate controlled--10/29 New Dx CHF--10/29 Reduced EF of 37.8 --currently rate controlled --no hx per Da. I spoke with da via phone today. She feels pt no a good candidate for a/c but agrees to ASA. -- Echo reviewed with EF 37.8. -- Patient asymptomatic. On room air. -- Consulted cardiology. Amlodipine discontinued and carvedilol added yesterday. -- Plans if patient remaining asymptomatic would continue with more conservative management at thistime. Dysphagia --OYSTER TONGER states that solids get stuck and then coughs up and recs GI consult --s/p EGD and s/p empiric dilatation 10/29. Ciaran well. --GI noted nl EGD otherwise. --reduced PPI to daily HTN/HLD --normotension BP now ok per neuro. -- Amlodipine discontinued and started carvedilol per cardiology monitor. Dementia --continue home meds. Stable LLE swelling --LLE duplex neg. Stable. COPD without exacerbation --oxygen as needed Debility Falls --lives alone. Pt of [facility]. Has caregivers help a few days a week. Dtr[facility] of [facility] [place] [facility] [place], but not interested in [facility]. Expected Discharge Location and Transportation: to [facility], following Expected Discharge Expected Discharge Date: 11/02/2024; Expected Discharge Time: VTE Prophylaxis: Mechanical VTE prophylaxis orders are present. AM-PAC 6 Clicks Score (PT): 17 (10/30/241943) CODE STATUS: There are no questions and answers to display. Milka Leblanc APRN 10/31/24 * Che Kiser APRN - 10/30/2024 9:30 AM EDT Images from the original note were not included. [facility] Medicine Services PROGRESS NOTE Patient Name: Jessica Burnham : 1935 Date of Admission: 10/26/2024 Primary Care Physician: Provider, No Known Subjective Subjective CC: AMS HPI: Patient seen resting up in bed in no acute distress. Awake and alert. States he slept well. Denies pain, nausea, vomiting, chest pain, shortness of air. Reported some urinary frequency, denies dysuria. BP elevated prior to a.m. meds, monitor. Objective Objective Vital Signs: Temp: [96.5 ??F (35.8 ??C)-98.3 ??F (36.8 ??C)] 97.8 ??F (36.6 ??C) Heart Rate: [81-109] 81 Resp: [16-18] 18 BP: (112-163)/(70-112) 112/70 Physical Exam: Constitutional: No acute distress, awake, alert. Resting back in bed. Pleasant and interactive. Chronically debilitated appearing elderly male. No visitors at bedside. HENT: NCAT, mucous membranes moist Respiratory: Clear to auscultation bilaterally, no crackles or wheezes appreciated. Respiratory effort normal on RA. Sats WNL. Cardiovascular: Irregularly irregular, no murmurs, rubs, or gallops Gastrointestinal: Positive bowel sounds, soft, nontender, nondistended. Thin habitus. Musculoskeletal: No bilateral ankle edema. Carrera spontaneously. Psychiatric: Appropriate affect, cooperative and calm. Neurologic: Oriented to person, that he is in a hospital, and that it is the year 25. Obvious short-term memory deficits appreciated, confusion seems better today, speech clear. Follows commands. Skin: No rashes Ilya unchanged compared to yesterday 10/29/2024 Results Reviewed: LAB RESULTS: Lab 10/28/24 0842 10/27/24 2354 10/26/24 2321 WBC 4.81 5.07 -- HEMOGLOBIN 14.9 14.6 -- HEMATOCRIT 43.1 41.5 -- PLATELETS 168 161 -- NEUTROS ABS -- 1.69* -- IMMATURE GRANS (ABS) -- 0.02 -- LYMPHS ABS -- 2.21 -- MONOS ABS -- 0.88 -- EOS ABS -- 0.22 -- MCV 79.5 79.8 -- LACTATE -- 1.3 1.0 Lab 10/28/24 0842 10/27/24 2354 10/27/24 0946 SODIUM 140 137 -- POTASSIUM 4.0 4.1 -- CHLORIDE 104 103 -- CO2 24.0 19.8* -- ANION GAP 12.0 14.2 -- BUN 21.0 21.7 -- CREATININE 1.10 1.08 -- EGFR 64.2 65.6 -- GLUCOSE 85 80 -- CALCIUM 9.2 9.4 -- MAGNESIUM -- 2.2 -- HEMOGLOBIN A1C -- -- 5.33 Lab 10/27/24 2354 TOTAL PROTEIN 7.5 ALBUMIN 4.3 GLOBULIN 3.2 ALT (SGPT) 23 AST (SGOT) 29 BILIRUBIN 0.4 ALK PHOS 71 Lab 10/27/24 0946 CHOLESTEROL 138 LDL CHOL 72 HDL CHOL 56 TRIGLYCERIDES 42 Brief Urine Lab Results (Last result in the past 365 days) Color Clarity Blood Leuk Est Nitrite Protein CREAT Urine HCG 10/30/24 1012 Yellow Clear Negative Moderate (2+) Negative 30 mg/dL (1+) Microbiology Results Abnormal None No radiology results from the last 24 hrs Results for orders placed during the hospital encounter of 10/26/24 Adult Transthoracic Echo Complete W/ Cont if Necessary Per Protocol (With Agitated Saline) 10/28/2024 5:29 PM Interpretation Summary Left ventricular systolic function is moderately decreased. Calculated left ventricular EF = 37.8% Left ventricular ejection fraction appears to be 36 - 40%. Left ventricular diastolic function was indeterminate. Normal right ventricular cavity size and wall thickness noted. Mildly reduced right ventricular systolic function noted. 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 Consider contrasted echo imaging versus cardiac MRI for further characterization if clinically warranted. The left atrial cavity is mildly dilated. Mild mitral valve regurgitation is present. Mild aortic valve regurgitation is present. Mild dilation of the aortic root is present. The aortic root measures 3.8 cm. Current medications: Scheduled Meds:aspirin, 81 mg, Oral, Daily Or aspirin, 300 mg, Rectal, Daily atorvastatin, 40 mg, Oral, Nightly carvedilol, 6.25 mg, Oral, BID With Meals pantoprazole, 40 mg, Intravenous, Q AM sodium chloride, 10 mL, Intravenous, Q12H Continuous Infusions:lactated ringers, 9 mL/hr, Last Rate: 9 mL/hr (10/30/24 0535) PRN Meds:. ipratropium-albuterol melatonin sodium chloride sodium chloride Assessment & Plan Assessment & Plan Active Hospital Problems Diagnosis POA Stroke-like symptoms [R29.90] Yes A-fib [I48.91] Yes CHF (congestive heart failure) [I50.9] Yes BPH (benign prostatic hyperplasia) [N40.0] Yes Essential hypertension [I10] Yes Mixed hyperlipidemia [E78.2] Yes Dementia [F03.90] Yes Resolved Hospital Problems No resolved problems to display. Brief Hospital Course to date: Jessica Burnham is a 89 y.o. male with a past medical history of Former tobacco use, COPD, dementia, sciatica, and hypertension presenting with altered mental status. This patient's problems and plans were partially entered by my partner and updated as appropriate by me 10/30/24. 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 Recs asa 81mg daily and lipitor 40mg qhs. 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 No PFO noted --EEG was unremarkable --A1C 5.33. Total chol 138 HDL 56 LDL 72 New Dx Afib rate controlled--10/29 New Dx CHF--10/29 Reduced EF of 37.8 --currently rate controlled --no hx per Da. I spoke with da via phone today. She feels pt no a good candidate for a/c but agrees to ASA. -- Echo reviewed with EF 37.8. -- Patient asymptomatic. On room air. -- Consulted cardiology. Amlodipine discontinued and carvedilol added yesterday. -- Plans if patient remaining asymptomatic would continue with more conservative management at thistime. Dysphagia --OYSTER TONGER states that solids get stuck and then coughs up and recs GI consult --s/p EGD and s/p empiric dilatation 10/29. Ciaran well. --GI noted nl EGD otherwise. --reduced PPI to daily HTN/HLD --normotension BP now ok per neuro. -- Amlodipine discontinued and started carvedilol per cardiology monitor. Dementia --continue home meds. Stable LLE swelling --LLE duplex neg. Stable. COPD without exacerbation --oxygen as needed Debility Falls --lives alone. Pt of [facility]. Has caregivers help a few days a week. Da/next of kin [place] SNF [place]. Pref[place] or if not wants local SNF. Updated CM 10/29. Daily Care Communication Due to current limited visitation policies, an attempt will be made daily to update patient's identified best [id number](s) Contact: Saranya Carter Relation: sherita Time of communication: 1350 Notes (if applicable): Attempted to call patient's daughter/next of kin to update on care today andalso to clarify CODE STATUS as it is not on file. She did not answer. Expected Discharge Location and Transportation[facility] or somewhere local. Expected Discharge Expected Discharge Date: 10/31/2024; Expected Discharge Time: VTE Prophylaxis: Mechanical VTE prophylaxis orders are present. AM-PAC 6 Clicks Score (PT): 17 (10/30/24 1124) CODE STATUS: There are no questions and answers to display. Che Kiser, CLAUDIA 10/30/24 * Michell Carroll, MACHINE TOOL TECHNOLOGY INSTRUCTOR - 10/30/2024 8:19 AM EDT [facility] Cardiology Inpatient Progress Note Chief Complaint/Reason for service: Follow up heart failure, Afib. Subjective: Patient resting in bed. No complaints. Denies chest pain, shortness of breath. Remains in rate controlled Afib on telemetry. Past medical, surgical, social and family history reviewed in the patient's electronic medical record. Objective: Infusions: lactated ringers, 9 mL/hr, Last Rate: 9 mL/hr (10/30/2435) Medications: Scheduled Meds:aspirin, 81 mg, Oral, Daily Or aspirin, 300 mg, Rectal, Daily atorvastatin, 40 mg, Oral, Nightly carvedilol, 6.25 mg, Oral, BID With Meals pantoprazole, 40 mg, Intravenous, Q AM sodium chloride, 10 mL, Intravenous, Q12H Continuous Infusions:lactated ringers, 9 mL/hr, Last Rate: 9 mL/hr (10/30/2435) PRN Meds:. ipratropium-albuterol melatonin sodium chloride sodium chloride Vital Sign Min/Max for last 24 hours Temp Min: 96.5 ??F (35.8 ??C) Max: 98.3 ??F (36.8 ??C) BP Min: 95/75 Max: 163/105 Pulse Min: 69 Max: 109 Resp Min: 16 Max: 18 SpO2 Min: 93 % Max: 98 % No data recorded Intake/Output Summary (Last 24 hours) at 10/30/2024 0819 Last data filed at 10/30/2024 0600 Gross per 24 hour Intake 200 ml Output 750 ml Net -550 ml CONSTITUTIONAL: No acute distress CARDIOVASCULAR: Irregularly irregular rate and rhythm. Without murmur. Labs/studies: Available lab and imaging results were reviewed by myself today Results for orders placed during the hospital encounter of 10/26/24 Adult Transthoracic Echo Complete W/ Cont if Necessary Per Protocol (With Agitated Saline) 10/28/2024 5:29 PM Interpretation Summary Left ventricular systolic function is moderately decreased. Calculated left ventricular EF = 37.8% Left ventricular ejection fraction appears to be 36 - 40%. Left ventricular diastolic function was indeterminate. Normal right ventricular cavity size and wall thickness noted. Mildly reduced right ventricular systolic function noted. 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 Consider contrasted echo imaging versus cardiac MRI for further characterization if clinically warranted. The left atrial cavity is mildly dilated. Mild mitral valve regurgitation is present. Mild aortic valve regurgitation is present. Mild dilation of the aortic root is present. The aortic root measures 3.8 cm. Tele: Rate controlled Afib. Assessment/Plan: Stroke-like symptoms Essential hypertension Mixed hyperlipidemia Dementia A-fib CHF (congestive heart failure) BPH (benign prostatic hyperplasia) ASSESSMENT: Stroke-like symptoms Essential hypertension Mixed hyperlipidemia Dementia A-fib CHF (congestive heart failure) BPH (benign prostatic hyperplasia) PLAN: PAF High annual risk of stroke with history of TIA as well as prior infarct on brain imaging. Does alsohave increased risk of falls and injury due to advanced age, cognitive impairment. Deferring anticoagulation due to advanced age, dementia and high risk for falls. Discussed with daughter yesterday who prefers aspirin at this time. Continue carvedilol Moderately reduced EF No prior evaluation for comparison, will monitor exertional symptoms with PT. Clinically euvolemic at this time. Continue carvedilol as noted above. Will continue with conservative management as long as patient remains asymptomatic. Electronically signed by Michell Carroll APRN, 10/30/24, 9:03 AM EDT. * Che Kiser APRN - 10/29/2024 1:20 PM EDT Images from the original note were not included. [facility] Medicine Services PROGRESS NOTE Patient Name: Jessica Burnham : 1935 Date of Admission: 10/26/2024 Primary Care Physician: Provider, No Known Subjective Subjective CC: AMS HPI: Pt was seen resting back in bed in NAD. No visitors at bs. Repeat EGD with empiric dilatation today. States he tolerated it well. No current complaints. Ate 100% of his lunch. Oriented today with short-term memory deficits. No chest pain or shortness of breath. Noted to EKG with rate controlled A-fib. Nurse also updated me to this issue. Asymptomatic. Rate currently 78. Will call daughter to update on current treatment plan and results of test. Objective Objective Vital Signs: Temp: [97.6 ??F (36.4 ??C)-98.1 ??F (36.7 ??C)] 97.9 ??F (36.6 ??C) Heart Rate: [69-103] 85 Resp: [16-18] 16 BP: (95-174)/(73-112) 136/99 Physical Exam: Constitutional: No acute distress, awake, alert. Resting back in bed. Pleasant and interactive. Chronically debilitated appearing elderly male. No visitors at bedside. HENT: NCAT, mucous membranes moist Respiratory: Clear to auscultation bilaterally, no crackles or wheezes appreciated. Respiratory effort normal on RA. Sats WNL. Cardiovascular: Irregularly irregular, no murmurs, rubs, or gallops Gastrointestinal: Positive bowel sounds, soft, nontender, nondistended. Thin habitus. Musculoskeletal: No bilateral ankle edema. Carrera spontaneously. Psychiatric: Appropriate affect, cooperative Neurologic: Oriented to person, that he is in a hospital, and that it is the year 25. Obvious short-term memory deficits appreciated, confusion seems better today, speech clear. Follows commands. Skin: No rashes Results Reviewed: LAB RESULTS: Lab 10/28/24 0842 10/27/24 2354 10/26/24 2321 WBC 4.81 5.07 -- HEMOGLOBIN 14.9 14.6 -- HEMATOCRIT 43.1 41.5 -- PLATELETS 168 161 -- NEUTROS ABS -- 1.69* -- IMMATURE GRANS (ABS) -- 0.02 -- LYMPHS ABS -- 2.21 -- MONOS ABS -- 0.88 -- EOS ABS -- 0.22 -- MCV 79.5 79.8 -- LACTATE -- 1.3 1.0 Lab 10/28/24 0842 10/27/24 2354 10/27/24 0946 SODIUM 140 137 -- POTASSIUM 4.0 4.1 -- CHLORIDE 104 103 -- CO2 24.0 19.8* -- ANION GAP 12.0 14.2 -- BUN 21.0 21.7 -- CREATININE 1.10 1.08 -- EGFR 64.2 65.6 -- GLUCOSE 85 80 -- CALCIUM 9.2 9.4 -- MAGNESIUM -- 2.2 -- HEMOGLOBIN A1C -- -- 5.33 Lab 10/27/24 235 TOTAL PROTEIN 7.5 ALBUMIN 4.3 GLOBULIN 3.2 ALT (SGPT) 23 AST (SGOT) 29 BILIRUBIN 0.4 ALK PHOS 71 Lab 10/27/24 0946 CHOLESTEROL 138 LDL CHOL 72 HDL CHOL 56 TRIGLYCERIDES 42 Brief Urine Lab Results (Last result in the past 365 days) Color Clarity Blood Leuk Est Nitrite Protein CREAT Urine HCG 10/28/24 0009 Yellow Clear Negative Trace Negative 30 mg/dL (1+) Microbiology Results Abnormal None Duplex Venous Lower Extremity - Left CAR Result Date: 10/28/2024 Normal left lower extremity venous duplex scan. Incidentally enlarged lymph nodes are noted in the left groin. MRI Brain Without Contrast Result Date: 10/27/2024 MRI BRAIN WO CONTRAST Date of Exam: 10/27/2024 6:49 PM EDT Indication: Stroke, follow up Left facialdroop, dysarthria, left-sided weakness. Comparison: None available. Technique: Routine multiplanar/multisequence sequence images of the brain were obtained without contrast administration. Findings: No acute infarct is present on diffusion weighted sequences. Midline structures are normal and the craniocervical junction appears satisfactory. Age-related changes are present with relatively advanced generalized volume loss and typical pontine and periventricular leukomalacia. There are also some areas of more focal cortical volume loss and underlying gliosis such as in the right frontal lobe with the appearance of prior infarct. There is otherwise no evidence of intracranial hemorrhage, mass or mass effect. There is ex vacuo prominence of the ventricles and sulci. The orbits are normal. Theparanasal sinuses are grossly clear. Impression: Impression: Advanced chronic and age-related changes are noted as above. There is otherwise no evidence of acute infarct, hemorrhage, mass or mass effect. Electronically Signed: Saulo Romo MD 10/27/2024 10:17 PM EDT Workstation ID: [id number] Results for orders placed during the hospital encounter of 10/26/24 Adult Transthoracic Echo Complete W/ Cont if Necessary Per Protocol (With Agitated Saline) 10/28/2024 5:29 PM Interpretation Summary Left ventricular systolic function is moderately decreased. Calculated left ventricular EF = 37.8% Left ventricular ejection fraction appears to be 36 - 40%. Left ventricular diastolic function was indeterminate. Normal right ventricular cavity size and wall thickness noted. Mildly reduced right ventricular systolic function noted. 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 Consider contrasted echo imaging versus cardiac MRI for further characterization if clinically warranted. The left atrial cavity is mildly dilated. Mild mitral valve regurgitation is present. Mild aortic valve regurgitation is present. Mild dilation of the aortic root is present. The aortic root measures 3.8 cm. Current medications: Scheduled Meds:amLODIPine, 5 mg, Oral, Q24H aspirin, 81 mg, Oral, Daily Or aspirin, 300 mg, Rectal, Daily atorvastatin, 40 mg, Oral, Nightly pantoprazole, 40 mg, Intravenous, BID AC sodium chloride, 10 mL, Intravenous, Q12H Continuous Infusions:[START ON 10/30/2024] lactated ringers, 9 mL/hr PRN Meds:. ipratropium-albuterol melatonin sodium chloride sodium chloride Assessment & Plan Assessment & Plan Active Hospital Problems Diagnosis POA Stroke-like symptoms [R29.90] Yes A-fib [I48.91] Clinically Undetermined CHF (congestive heart failure) [I50.9] Unknown BPH (benign prostatic hyperplasia) [N40.0] Yes Essential hypertension [I10] Yes Mixed hyperlipidemia [E78.2] Yes Dementia [F03.90] Yes Resolved Hospital Problems No resolved problems to display. Brief Hospital Course to date: Jessica Burnham is a 89 y.o. male with a past medical history of Former tobacco use, COPD, dementia, sciatica, and hypertension presenting with altered mental status. This patient's problems and plans were partially entered by my partner and updated as appropriate by me 10/29/24. 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 Recs asa 81mg daily and lipitor 40mg qhs. 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 No PFO noted --EEG was unremarkable --A1C 5.33. Total chol 138 HDL 56 LDL 72 New Dx Afib rate controlled--10/29 --currently rate controlled --no hx per Da. I spoke with da via phone today. She feels pt no a good candidate for a/c but agrees to ASA. --agrees to cards consult due to new dx New Dx CHF--10/29 Reduced EF of 37.8 --no hx per Da. Noted on Echo for stroke w/u --consult cards Dysphagia --OYSTER TONGER states that solids get stuck and then coughs up and recs GI consult --s/p EGD and s/p empiric dilatation today. Ciaran well. --GI noted nl EGD otherwise. --reduce PPI to daily HTN/HLD --normotension BP now ok per neuro. Prior restarted home norvasc Dementia --continue home meds. Stable LLE swelling --LLE duplex neg. Stable. COPD without exacerbation --oxygen as needed Debility Falls --lives alone. Pt of [facility]. Has caregivers help a few days a week. Da wants SN[facility]. [facility] if not [facility] SN[facility]. Updated CM. Daily Care Communication Due to current limited visitation policies, an attempt will be made daily to update patient's identified best [id number]-lo-prsutoj(s) Contact: Saranya Carter Relation: sherita Time of communication: 1330 Notes (if applicable): Spoke with patient's daughter/next of kin via phone. Updated on results of EGD. Discussed past medical history as patient is a [facility] patient with no history on file here. Explained patient in rate controlled A-fib and new CHF based on echo. History of these prior note per daughter. Does she feels patient would not be a good candidate for anticoagulation due to age and dementiawith falls. Agreeable to aspirin if indicated. For patient to transfer at discharge to a [place] rehab center if possible. Expected Discharge [facility] and [facility] or somewhere local. Expected Discharge Expected Discharge Date: 10/29/2024; Expected Discharge Time: VTE Prophylaxis: Mechanical VTE prophylaxis orders are present. AM-PAC 6 Clicks Score (PT): 16 (10/29/24 1400) CODE STATUS: There are no questions and answers to display. Che Kiser APRN 10/29/24 * Saeed Monique MD - 10/28/2024 1:24 PM EDT Images from the original note were not included. [facility] Medicine Services PROGRESS NOTE Patient Name: Jessica Burnham : 1935 Date of Admission: 10/26/2024 Primary Care Physician: Provider, No Known Subjective Subjective CC: AMS HPI: Patient seen this AM. States that he feels ok. Confusion better per nursing Objective Objective Vital Signs: Temp: [97.5 ??F (36.4 ??C)-98.5 ??F (36.9 ??C)] 98.5 ??F (36.9 ??C) Heart Rate: [81-89] 82 Resp: [17-18] 18 BP: (141-170)/(93-116) 141/112 Physical Exam: Constitutional: No acute distress, awake, alert HENT: NCAT, mucous membranes moist Respiratory: Clear to auscultation bilaterally, respiratory effort normal Cardiovascular: RRR, no murmurs, rubs, or gallops Gastrointestinal: Positive bowel sounds, soft, nontender, nondistended Musculoskeletal: No bilateral ankle edema Psychiatric: Appropriate affect, cooperative Neurologic: Oriented x 2 (not to date), confusion seems better today, speech clear Skin: No rashes Results Reviewed: LAB RESULTS: Lab 10/28/24 0842 10/27/24 23510/26/24 2321 WBC 4.81 5.07 -- HEMOGLOBIN 14.9 14.6 -- HEMATOCRIT 43.1 41.5 -- PLATELETS 168 161 -- NEUTROS ABS -- 1.69* -- IMMATURE GRANS (ABS) -- 0.02 -- LYMPHS ABS -- 2.21 -- MONOS ABS -- 0.88 -- EOS ABS -- 0.22 -- MCV 79.5 79.8 -- LACTATE -- 1.3 1.0 Lab 10/28/24 0842 10/27/24 2354 10/27/24 0946 SODIUM 140 137 -- POTASSIUM 4.0 4.1 -- CHLORIDE 104 103 -- CO2 24.0 19.8* -- ANION GAP 12.0 14.2 -- BUN 21.0 21.7 -- CREATININE 1.10 1.08 -- EGFR 64.2 65.6 -- GLUCOSE 85 80 -- CALCIUM 9.2 9.4 -- MAGNESIUM -- 2.2 -- HEMOGLOBIN A1C -- -- 5.33 Lab 10/27/24 2354 TOTAL PROTEIN 7.5 ALBUMIN 4.3 GLOBULIN 3.2 ALT (SGPT) 23 AST (SGOT) 29 BILIRUBIN 0.4 ALK PHOS 71 Lab 10/27/24 0946 CHOLESTEROL 138 LDL CHOL 72 HDL CHOL 56 TRIGLYCERIDES 42 Brief Urine Lab Results (Last result in the past 365 days) Color Clarity Blood Leuk Est Nitrite Protein CREAT Urine HCG 10/28/24 0009 Yellow Clear Negative Trace Negative 30 mg/dL (1+) Microbiology Results Abnormal None MRI Brain Without Contrast Result Date: 10/27/2024 MRI BRAIN WO CONTRAST Date of Exam: 10/27/2024 6:49 PM EDT Indication: Stroke, follow up Left facialdroop, dysarthria, left-sided weakness. Comparison: None available. Technique: Routine multiplanar/multisequence sequence images of the brain were obtained without contrast administration. Findings: No acute infarct is present on diffusion weighted sequences. Midline structures are normal and the craniocervical junction appears satisfactory. Age-related changes are present with relatively advanced generalized volume loss and typical pontine and periventricular leukomalacia. There are also some areas of more focal cortical volume loss and underlying gliosis such as in the right frontal lobe with the appearance of prior infarct. There is otherwise no evidence of intracranial hemorrhage, mass or mass effect. There is ex vacuo prominence of the ventricles and sulci. The orbits are normal. Theparanasal sinuses are grossly clear. Impression: Impression: Advanced chronic and age-related changes are noted as above. There is otherwise no evidence of acute infarct, hemorrhage, mass or mass effect. Electronically Signed: Saulo Romo MD 10/27/2024 10:17 PM EDT Workstation ID: [id number] EEG Result Date: 10/27/2024 History: 89 y old male , AMS. r/o seizure Procedure: A digital electroencephalogram was performed in the Clinical Neurophysiology Laboratory. The 10/20 International System of electrode placement wasused and both Bipolar and referential electrode montages were monitored. EEG Description: This EEG is continuous and symmetrical. During the awake state with eye closed, there is a posterior dominaterhythm of -9- Hz that is symmetrical and reacts appropriately to eye opening. Anterior to posterioramplitude frequency gradient is preserved. With Drowsiness, there is waxing and waning of the posterior dominant rhythm with eventual replacement by a mixture of beta, alpha and theta activity. Photic stimulation using a stepwise increase in photic frequency, results in driving response but no activation of epileptiform activity. A prolonged Lead I EKG rhythm strip revealed heart rate at --70--/min Interpretation: This EEG obtained in the awake and drowsy state is normal for age. Clinical correlation: The diagnosis of epilepsy is clinical one. A normal EEG dose not excludes this Diagnosis. However there are no epileptiform features in this recording to suggest an underlining diagnosis of Epilepsy. Therefore, Clinical correlation is recommended. Current medications: Scheduled Meds:aspirin, 81 mg, Oral, Daily Or aspirin, 300 mg, Rectal, Daily atorvastatin, 40 mg, Oral, Nightly sodium chloride, 10 mL, Intravenous, Q12H Continuous Infusions: PRN Meds:. ipratropium-albuterol melatonin sodium chloride sodium chloride Assessment & Plan Assessment & Plan Active Hospital Problems Diagnosis POA Stroke-like symptoms [R29.90] Yes Essential hypertension [I10] Yes Mixed hyperlipidemia [E78.2] Yes Dementia [F03.90] Yes Resolved Hospital Problems No resolved problems to display. Brief Hospital Course to date: Jessica Burnham is a 89 y.o. male with a past medical history of Former tobacco use, COPD, dementia, sciatica, and hypertension presenting with altered mental status. 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 Recs asa 81mg daily and lipitor 40mg qhs. 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 Total chol 138 HDL 56 LDL 72 Dysphagia --OYSTER TONGER states that solids get stuck and then coughs up and recs GI consult for possible EGD HTN --normotension BP now ok per neuro. Restart home norvasc HL Dementia --continue home meds LLE swelling --LLE duplex pending COPD without exacerbation Expected Discharge Location and Transportation: from home Expected Discharge Expected Discharge Date: 10/29/2024; Expected Discharge Time: VTE Prophylaxis: Mechanical VTE prophylaxis orders are present. AM-PAC 6 Clicks Score (PT): 16 (10/28/24 1030) CODE STATUS: There are no questions and answers to display. Saeed Monique MD 10/28/24 * Roby Mckenzie MD - 10/28/2024 1:01 PM EDT Stroke Progress Note Chief Complaint: Altered mental status Subjective Subjective Subjective: The patient is lying down in the bed in NAD. No family were at the bedside. The patient stated thathe is doing okay this morning denies having any new stroke or strokelike symptoms. I discussed with the patient imaging findings and what could possibly explain his symptoms. We alsodiscussed management plan moving forward. As requested by the nurse, I called the patient's daughter Ms. Saranya Carter and updated her about her father's condition together with the available imaging findings and lab tests. All questions and concerns by the patient's daughter were answered. No other acute complains at this time Review of Systems Constitutional: No fatigue Objective Temp: [97.5 ??F (36.4 ??C)-98.5 ??F (36.9 ??C)] 98.5 ??F (36.9 ??C) Heart Rate: [81-89] 82 Resp: [17-18] 18 BP: (141-170)/(93-116) 141/112 Objective GEN: lying in bed; in NAD HENT: normocephalic, non-erythematous oropharynx NEURO: Mental Status: A&O x 2, interactive, able to follow commands Speech: Intact Articulation CN 2-12: II - PERRLA III, IV, - EOMI VII -no gross facial asymmetry VIII - Auditory acuity intact XII - Tongue protrudes midline Motor: Patient is able to move all 4 extremities against gravity with no drift appreciated Sensory: intact light touch throughout Coordination: no ataxia with [id number] testing Gait/Station: deferred Results Review: I reviewed the patient's new clinical results. WBC Date Value Ref Range Status 10/28/2024 4.81 3.40 - 10.80 10*3/mm3 Final RBC Date Value Ref Range Status 10/28/2024 5.42 4.14 - 5.80 10*6/mm3 Final Hemoglobin Date Value Ref Range Status 10/28/2024 14.9 13.0 - 17.7 g/dL Final Hematocrit Date Value Ref Range Status 10/28/2024 43.1 37.5 - 51.0 % Final MCV Date Value Ref Range Status 10/28/2024 79.5 79.0 - 97.0 fL Final MCH Date Value Ref Range Status 10/28/2024 27.5 26.6 - 33.0 pg Final MCHC Date Value Ref Range Status 10/28/2024 34.6 31.5 - 35.7 g/dL Final RDW Date Value Ref Range Status 10/28/2024 15.1 12.3 - 15.4 % Final RDW-SD Date Value Ref Range Status 10/28/2024 43.6 37.0 - 54.0 fl Final MPV Date Value Ref Range Status 10/28/2024 10.9 6.0 - 12.0 fL Final Platelets Date Value Ref Range Status 10/28/2024 168 140 - 450 10*3/mm3 Final Neutrophil % Date Value Ref Range Status 10/27/2024 33.3 (L) 42.7 - 76.0 % Final Lymphocyte % Date Value Ref Range Status 10/27/2024 43.6 19.6 - 45.3 % Final Monocyte % Date Value Ref Range Status 10/27/2024 17.4 (H) 5.0 - 12.0 % Final Eosinophil % Date Value Ref Range Status 10/27/2024 4.3 0.3 - 6.2 % Final Basophil % Date Value Ref Range Status 10/27/2024 1.0 0.0 - 1.5 % Final Immature Grans % Date Value Ref Range Status 10/27/2024 0.4 0.0 - 0.5 % Final Neutrophils, Absolute Date Value Ref Range Status 10/27/2024 1.69 (L) 1.70 - 7.00 10*3/mm3 Final Lymphocytes, Absolute Date Value Ref Range Status 10/27/2024 2.21 0.70 - 3.10 10*3/mm3 Final Monocytes, Absolute Date Value Ref Range Status 10/27/2024 0.88 0.10 - 0.90 10*3/mm3 Final Eosinophils, Absolute Date Value Ref Range Status 10/27/2024 0.22 0.00 - 0.40 10*3/mm3 Final Basophils, Absolute Date Value Ref Range Status 10/27/2024 0.05 0.00 - 0.20 10*3/mm3 Final Immature Grans, Absolute Date Value Ref Range Status 10/27/2024 0.02 0.00 - 0.05 10*3/mm3 Final nRBC Date Value Ref Range Status 10/27/2024 0.0 0.0 - 0.2 /100 WBC Final Lab Results Component Value Date GLUCOSE 85 10/28/2024 BUN 21.0 10/28/2024 CREATININE 1.10 10/28/2024 NA 140 10/28/2024 K 4.0 10/28/2024 CL 104 10/28/2024 CALCIUM 9.2 10/28/2024 PROTEINTOT 7.5 10/27/2024 ALBUMIN 4.3 10/27/2024 ALT 23 10/27/2024 AST 29 10/27/2024 ALKPHOS 71 10/27/2024 BILITOT 0.4 10/27/2024 GLOB 3.2 10/27/2024 AGRATIO 1.3 10/27/2024 BCR 19.1 10/28/2024 ANIONGAP 12.0 10/28/2024 EGFR 64.2 10/28/2024 MRI Brain Without Contrast Result Date: 10/27/2024 Impression: Advanced chronic and age-related changes are noted as above. There is otherwise no evidence of acute infarct, hemorrhage, mass or mass effect. Electronically Signed: Saulo Romo MD 10/27/2024 10:17 PM EDT Workstation ID: [id number] -[facility] wo on 10/26/2024 images were personally reviewed and showed no acute ischemic or hemorrhagic stroke. 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 There is distal M1 stenosis of the left MCA -MRI brain images from 10/27/2024 images were personally reviewed and showed no evidence of acute ischemic or hemorrhagic stroke. The area of hypodensity visible on the CT scan that was concerning forchronic right MCA ischemic infarct favored chronic small vessel ischemic changes instead -Transthoracic echocardiogram from 10/28/2024 report was personally reviewed and showed normal left atrial size -Duplex ultrasound of the left lower extremity from 10/28/2024 report was unremarkable for DVT -Routine EEG from 10/27/2024 was unremarkable -A1c from 10/27/2024 was 5.23% -LDL from 10/27/2024 was 72 Assessment/Plan This is 89-year-old -[place] male, right-handed with multiple vascular risk factor presented to outside hospital for altered mental status. Transferred to our facility for full stroke workup and higher level of care. Patient was not a candidate for IV thrombolytic therapy or mechanical thrombectomy as he was back to his baseline. 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 This is less likely to be vascular in nature -[facility] wo on 10/26/2024 images were personally reviewed and showed no acute ischemic or hemorrhagic stroke. 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 There is distal M1 stenosis of the left MCA -MRI brain images from 10/27/2024 images were personally reviewed and showed no evidence of acute ischemic or hemorrhagic stroke. The area of hypodensity visible on the CT scan that was concerning forchronic right MCA ischemic infarct favored chronic small vessel ischemic changes instead -Transthoracic echocardiogram from 10/28/2024 report was personally reviewed and showed normal left atrial size -Duplex ultrasound of the left lower extremity from 10/28/2024 report was unremarkable for DVT -Routine EEG from 10/27/2024 was unremarkable -A1c from 10/27/2024 was 5.23% -LDL from 10/27/2024 was 72 Recommendations -Treat underlying metabolic/infectious etiologies of encephalopathy -Continue aspirin 81 mg daily for secondary stroke prevention. -Continue atorvastatin 40 mg nightly for secondary stroke prevention. Target LDL level of less than70 -Patient to continue on telemetry. Consider cardiac monitoring for 2 to 4 weeks upon discharge -Target blood pressure goals normotension -NIH\neurocheck per protocol -Activity as tolerated, fall risk precautions -PT/OT/OYSTER TONGER evaluation #Essential hypertension, complicated by uncontrolled hypertension -As detailed above #Hyperlipidemia -As detailed above #Dementia -Continue home meds -Management by medicine team #Left lower extremity swelling -Doppler left lower extremity is unremarkable #Microcytic anemia - H&H stable - Monitor any signs and symptoms of bleed - Management by medicine team Stroke will sign off. Please call for any further questions or concerns Roby Mckenzie MD, Msc, PhD Vascular Neurologist [facility] * Roby Mckenzie MD - 10/27/2024 2:24 PM EDT Stroke Progress Note Chief Complaint: Altered mental status Subjective Subjective Subjective: The patient is lying down in the bed in [facility]. No family were at the bedside. The patient stated thathe is doing okay this morning denies having any new stroke or strokelike symptoms. When I told him that he was brought here because he was confused he replied it is possible. I discussed with the patient imaging findings and what could possibly explain his symptoms. We also discussed management plan moving forward. No other acute complains at this time Review of Systems Constitutional: No fatigue Objective Temp: [97.1 ??F (36.2 ??C)-98.1 ??F (36.7 ??C)] 97.6 ??F (36.4 ??C) Heart Rate: [69-89] 88 Resp: [14-17] 17 BP: (142-171)/(87-98) 144/89 Objective GEN: lying in bed; in NAD HENT: normocephalic, non-erythematous oropharynx NEURO: Mental Status: A&O x 2 (stated that he is in [place] at [facility]), interactive, ableto follow commands Speech: Intact Articulation CN 2-12: II - PERRLA III, IV, - EOMI VII -no gross facial asymmetry VIII - Auditory acuity intact XII - Tongue protrudes midline Motor: Patient is able to move all 4 extremities against gravity with no drift appreciated Sensory: intact light touch throughout Coordination: no ataxia with [id number] testing Gait/Station: deferred Results Review: I reviewed the patient's new clinical results. No results found for: WBC , RBC , HGB , HCT , MCV , MCH , MCHC , RDW , RDWSD , MPV , PLT , NEUTRORELPCT , LYMPHORELPCT , MONORELPCT , EOSRELPCT , BASORELPCT , AUTOIGPER , NEUTROABS , LYMPHSABS , MONOSABS , EOSABS , BASOSABS , AUTOIGNUM , NRBC No results found for: GLUCOSE , BUN , CREATININE , NA , K , CL , CALCIUM , PROTEINTOT , ALBUMIN , ALT , AST , ALKPHOS , BILITOT , GLOB , AGRATIO , BCR , ANIONGAP , EGFR No radiology results for the last day -[facility] wo on 10/26/2024 images were personally reviewed and showed no acute ischemic or hemorrhagic stroke. 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 There is distal M1 stenosis of the left MCA -MRI brain images is pending -Transthoracic echocardiogram is pending -Routine EEG is pending -A1c from 10/27/2024 was 5.23% -LDL from 10/27/2024 was 72 Assessment/Plan This is 89-year-old -[place] male, right-handed with multiple vascular risk factor presented to outside hospital for altered mental status. Transferred to our facility for full stroke workup and higher level of care. Patient was not a candidate for IV thrombolytic therapy or mechanical thrombectomy as he was back to his baseline. 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 This is less likely to be vascular in nature -[facility] wo on 10/26/2024 images were personally reviewed and showed no acute ischemic or hemorrhagic stroke. 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 There is distal M1 stenosis of the left MCA -MRI brain images is pending -Transthoracic echocardiogram is pending -Routine EEG is pending -A1c from 10/27/2024 was 5.23% -LDL from 10/27/2024 was 72 Recommendations -Treat underlying metabolic/infectious etiologies of encephalopathy -Continue aspirin 81 mg daily for secondary stroke prevention. -Continue atorvastatin 40 mg nightly for secondary stroke prevention. Target LDL level of less than70 -Patient to continue on telemetry. Consider cardiac monitoring for 2 to 4 weeks upon discharge -Target blood pressure goals normotension -Routine EEG is ordered and pending. Consider starting levetiracetam 500 mg twice daily if concern for epileptiform activities on the EEG and consider consulting general neurology -MRI brain without contrast ordered and pending to evaluate for possible stroke burden -TTE ordered and pending to evaluate for arrhythmia -NIH\neurocheck per protocol -Activity as tolerated, fall risk precautions -PT/OT/OYSTER TONGER evaluation #Essential hypertension, complicated by uncontrolled hypertension - As detailed above #Hyperlipidemia -As detailed above #Dementia - Continue home meds - Management by medicine team #Left lower extremity swelling - Doppler left lower extremity ordered and pending #Microcytic anemia - H&H stable - Monitor any signs and symptoms of bleed - Management by medicine team Stroke will continue to follow if the MRI is consistent with acute stroke. Please call for any further questions or concerns Roby Mckenzie MD, Msc, PhD Vascular Neurologist [facility] * Saeed Monique MD - 10/27/2024 2:02 PM EDT Images from the original note were not included. [facility] Medicine Services PROGRESS NOTE Patient Name: Jessica Burnham : 1935 Date of Admission: 10/26/2024 Primary Care Physician: Provider, No Known Subjective Subjective CC: AMS HPI: Saw patient this AM. States that feels ok. Objective Objective Vital Signs: Temp: [97.1 ??F (36.2 ??C)-98.1 ??F (36.7 ??C)] 97.6 ??F (36.4 ??C) Heart Rate: [69-89] 88 Resp: [14-17] 17 BP: (142-171)/(87-98) 144/89 Physical Exam: Constitutional: No acute distress, awake, alert HENT: NCAT, mucous membranes moist Respiratory: Clear to auscultation bilaterally, respiratory effort normal Cardiovascular: RRR, no murmurs, rubs, or gallops Gastrointestinal: Positive bowel sounds, soft, nontender, nondistended Musculoskeletal: No bilateral ankle edema Psychiatric: Appropriate affect, cooperative Neurologic: Oriented x 2 (not to date), speech clear Skin: No rashes Results Reviewed: LAB RESULTS: Lab 10/26/24 2321 LACTATE 1.0 Lab 10/27/24 0946 HEMOGLOBIN A1C 5.33 Lab 10/27/24 0946 CHOLESTEROL 138 LDL CHOL 72 HDL CHOL 56 TRIGLYCERIDES 42 Brief Urine Lab Results None Microbiology Results Abnormal None No radiology results from the last 24 hrs Current medications: Scheduled Meds:aspirin, 81 mg, Oral, Daily Or aspirin, 300 mg, Rectal, Daily atorvastatin, 80 mg, Oral, Nightly sodium chloride, 10 mL, Intravenous, Q12H Continuous Infusions: PRN Meds:. ipratropium-albuterol sodium chloride sodium chloride Assessment & Plan Assessment & Plan Active Hospital Problems Diagnosis POA Stroke-like symptoms [R29.90] Yes Resolved Hospital Problems No resolved problems to display. Brief Hospital Course to date: Jessica Burnham is a 89 y.o. male with a past medical history of Former tobacco use, COPD, dementia, sciatica, and hypertension presenting with altered mental status. 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 Continue asa and statin --MRI pending --echo pending --EEG pending --A1C 5.33. Total chol 138 HDL 56 LDL 72 Dysphagia --OYSTER TONGER states that solids get stuck and then coughs up and recs GI consult for possible EGD HTN --permissive HTN until ok per neuro HL Dementia --continue home meds LLE swelling --LLE duplex pending COPD without exacerbation Expected Discharge Location and Transportation: from [place] Expected Discharge Expected Discharge Date: 10/29/2024; Expected Discharge Time: VTE Prophylaxis: Mechanical VTE prophylaxis orders are present. AM-PAC 6 Clicks Score (PT): 17 (10/27/24 0800) CODE STATUS: There are no questions and answers to display. Saeed Monique MD 10/27/24 documented in this encounter H&P Notes * Thien Becker MD - 10/26/2024 7:21 PM EDT Images from the original note were not included. [facility] Patient Identification: Name: Jessica Burnham Age: 89 y.o. Sex: male : 1935 Visit Number: [id number] Admit Date: 10/26/2024 Room number: S318/1 Primary Care Physician: Provider, No Known Date of Admission: 10/26/2024 Subjective Chief complaint: Confusion History of presenting illness: This is an 89 male from shelter with a past medical history of COPD, dementia, sciatica, and hypertension presenting with altered mental status. Pt found to have confusion, dysarthria, and bilateral lower extremity drift. Last known well has not been established. The patient initially presented to [facility] with vitals WNL and imaging showing CT head with changes to right MCA territory right frontal, No right MCA LVO identified. 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 He has been transferred to our hospital for further management. At this time, he is AAOX3 and denies any CP, SOB or N/V. Pt states he does not remember why he was sent to the hospital. States he was told he was having stroke but he has not noticed any issues. The patient does have mild dysarthria, but he states that there are no changes to his speech and that it's likely 2/2 not having his dentures. He has no focal weakness on exam. Review of Systems Constitutional: Negative for activity change, chills and fever. HENT: Negative for drooling and sinus pain. Eyes: Negative for pain. Respiratory: Negative for apnea. Cardiovascular: Negative for chest pain. Gastrointestinal: Negative for abdominal pain. Endocrine: Negative for heat intolerance. Genitourinary: Negative for difficulty urinating and genital sores. Musculoskeletal: Negative for back pain and myalgias. Allergic/Immunologic: Negative for food allergies. Neurological: Negative for speech difficulty and headaches. Hematological: Does not bruise/bleed easily. Psychiatric/Behavioral: Negative for confusion and hallucinations. No past medical history on file. No past surgical history on file. No family history on file. Social History Socioeconomic History Marital status: Single Allergies: Patient has no allergy information on record. Medications below are reported home medications pulling from within the system; at this time, thesemedications have not been reconciled unless otherwise specified and are in the verification processfor further verifcation as current home medications. Prior to Admission Medications None Objective Vital Signs: No data found. on ; There is no height or weight on file to calculate BMI. Wt Readings from Last 3 Encounters: No data found for Wt PHYSICAL EXAMINATION: GENERAL: The patient is well developed and nontoxic. HEENT: Anicteric sclerae, PERRLA, EOMI. Oropharynx clear. Moist mucous membranes. Conjunctivae appear well perfused. CHEST: Chest wall is nontender. HEART: Regular rate and rhythm without murmurs. LUNGS: Clear to auscultation bilaterally. ABDOMEN: Soft, positive bowel sounds, nontender, no organomegaly. RECTAL: Deferred. SKIN: No rash, no excessive bruising, petechiae, or purpura. NEUROLOGIC: Cranial nerves II-XII intact without motor/sensory deficit. LABS: CBC and coagulation: Acid/base balance: Renal and electrolytes: CrCl cannot be calculated (No successful lab value found.). Liver and pancreatic function: Invalid input(s): PROT Endocrine function: No results found for: HGBA1C Point of care bedside glucose levels: No results found for: TSH , FREET4 Cardiac: Cultures: No results found for: COLORU , CLARITYU , SPECGRAV , PHUR , PROTEINUR , GLUCOSEU , KETONESU , BLOODU , NITRITEU , LEUKOCYTESUR , BILIRUBINUR , UROBILINOGEN , RBCUA , WBCUA , BACTERIA , UACOMMENT Microbiology Results (last 10 days) No results found for the last 240 hours. No results found for: PREGTESTUR , PREGSERUM , HCG , HCGQUANT Pain Management Panel No data to display I have personally looked at the labs and they are summarized above. Detailed radiology reports for the last 24 hours: Imaging Results (Last 24 Hours) No results found for the last 24 hours. Final impressions for the last 30 days of radiology reports: No radiology results for the last 30 days. Assessment & Plan This is an 89 male with a past medical history of Former tobacco use, COPD, dementia, sciatica, andhypertension presenting with altered mental status. CVA: - Telemetry - Neuro checks every 4 hours - Aspirin and Lipitor daily - Echo with bubbles - PT/OT - Speech therapy - MRI brain - Consult Neurology Hypertension: -Currently well controlled -Hydralazine as needed COPD without exacerbation: -DuoNebs every 4 hours as needed -Titrate oxygen to SaO2 of 88% to 92% -Continue to monitor SaO2 Thien Becker MD [facility] 10/26/24 19:21 EDT documented in this encounter Consult Notes * Clark Lopez MD - 10/29/2024 2:52 PM EDTAssociated Order(s): IP CONSULT TO CARDIOLOGY [facility] Cardiology Initial Consult Note Patient Identification: Jessica Burnham 89 y.o. male 1935 [id number] Date of Consultation: 10/29/24 Reason for Consultation: atrial fibrillation, decreased EF PCP: Provider, No Known Primary town justice: none Referring physician: Saeed Monique MD History of Present Illness: Jessica Burnham is a 89 y.o. with a history of HTN, MCI, BPH, GERD, CKD who was transferred to [facility] from [facility] due to concern for stroke. Per the review of outside ED records he had been found after working outside all day with dysarthria and facial droop but was not able to contribute much to history. There was concern for stroke on CT and he was transferred here for further evaluation and management. Subsequent MRI demonstrated no evidence of acute infarct but leukomalacia as well as evidence of possible prior infarct. The patient has been in atrial fibrillation on telemetry since presentation. Echocardiogram performed yesterday showed ejection fraction was moderately decreased. On questioning, the patient does notrecall ever being told that he has had atrial fibrillation or any heart disease. Limited records are available for review through the [place] system which do not show these diagnoses either. Past History: Past Medical History: Diagnosis Date BPH (benign prostatic hyperplasia) 10/29/2024 Hypertension History reviewed. No pertinent surgical history. No Known Allergies Social History Socioeconomic History Marital status: Single Family History Problem Relation Age of Onset No Known Problems Mother No Known Problems Father Medications: Medications Prior to Admission Medication Sig Dispense Refill Last Dose/Taking amLODIPine (NORVASC) 5 MG tablet Take 1 tablet by mouth Daily. amoxicillin-clavulanate (AUGMENTIN) 875-125 MG per tablet Take 1 tablet by mouth 2 (Two) Times a Day. aspirin 325 MG tablet Take 1 tablet by mouth Daily. bisacodyl (DULCOLAX) 5 MG EC tablet Take 2 tablets by mouth Daily As Needed for Constipation. carvedilol (COREG) 6.25 MG tablet Take 1 tablet by mouth 2 (Two) Times a Day With Meals. Diclofenac Sodium (VOLTAREN) 1 % gel gel Apply 4 g topically to the appropriate area as directed 4 (Four) Times a Day As Needed. dilTIAZem CD (CARDIZEM CD) 180 MG 24 hr capsule Take 2 capsules by mouth Daily. finasteride (PROSCAR) 5 MG tablet Take 1 tablet by mouth Daily. levoFLOXacin (LEVAQUIN) 750 MG tablet Take 1 tablet by mouth Daily. omeprazole (priLOSEC) 40 MG capsule Take 1 capsule by mouth 2 (Two) Times a Day. polyethylene glycol (MIRALAX) 17 g powder Take 17 g by mouth Daily As Needed (constipation). potassium chloride (MICRO-K) 10 MEQ CR capsule Take 2 capsules by mouth Daily. rosuvastatin (CRESTOR) 10 MG tablet Take 1 tablet by mouth Every Night. senna (SENOKOT) 8.6 MG tablet Take 1 tablet by mouth Daily. tamsulosin (FLOMAX) 0.4 MG capsule 24 hr capsule Take 2 capsules by mouth Daily. Current medications: amLODIPine, 5 mg, Oral, Q24H aspirin, 81 mg, Oral, Daily Or aspirin, 300 mg, Rectal, Daily atorvastatin, 40 mg, Oral, Nightly [START ON 10/30/2024] pantoprazole, 40 mg, Intravenous, Q AM sodium chloride, 10 mL, Intravenous, Q12H Current IV drips: [START ON 10/30/2024] lactated ringers, 9 mL/hr Review of Systems Constitutional: Negative for decreased appetite. Cardiovascular: Negative for chest pain, dyspnea on exertion and irregular heartbeat. Gastrointestinal: Positive for dysphagia. Neurological: Positive for weakness. Physical exam: Temp: [97.6 ??F (36.4 ??C)-98.1 ??F (36.7 ??C)] 97.9 ??F (36.6 ??C) Heart Rate: [69-103] 85 Resp: [16-18] 16 BP: (95-174)/(73-112) 136/99 There is no height or weight on file to calculate BMI. Gen: well developed, lying in bed, comfortable appearing HEENT: MMM, sclerae anicteric, conjunctivae normal CV: regular rate, irregularly irregular rhythm, no murmurs or rubs, normal S1, S2. 2+ radial and DPpulses Pulm: RA, normal work of breathing, no wheezes, rales, rhonchi Ext: normal bulk for age, normal tone, no dependent edema Cardiac Testing: ECG (personally reviewed) atrial fibrillation with controlled rate Telemetry: (personally reviewed) atrial fibrillation since admission ECHO: Results for orders placed during the hospital encounter of 10/26/24 Adult Transthoracic Echo Complete W/ Cont if Necessary Per Protocol (With Agitated Saline) 10/28/2024 5:29 PM Interpretation Summary Left ventricular systolic function is moderately decreased. Calculated left ventricular EF = 37.8% Left ventricular ejection fraction appears to be 36 - 40%. Left ventricular diastolic function was indeterminate. Normal right ventricular cavity size and wall thickness noted. Mildly reduced right ventricular systolic function noted. 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 Consider contrasted echo imaging versus cardiac MRI for further characterization if clinically warranted. The left atrial cavity is mildly dilated. Mild mitral valve regurgitation is present. Mild aortic valve regurgitation is present. Mild dilation of the aortic root is present. The aortic root measures 3.8 cm. Lab Review: Lab Results Component Value Date WBC 4.81 10/28/2024 HGB 14.9 10/28/2024 HCT 43.1 10/28/2024 MCV 79.5 10/28/2024 PLT 168 10/28/2024 Lab Results Component Value Date GLUCOSE 85 10/28/2024 BUN 21.0 10/28/2024 CREATININE 1.10 10/28/2024 NA 140 10/28/2024 K 4.0 10/28/2024 CL 104 10/28/2024 CALCIUM 9.2 10/28/2024 PROTEINTOT 7.5 10/27/2024 ALBUMIN 4.3 10/27/2024 ALT 23 10/27/2024 AST 29 10/27/2024 ALKPHOS 71 10/27/2024 BILITOT 0.4 10/27/2024 GLOB 3.2 10/27/2024 AGRATIO 1.3 10/27/2024 BCR 19.1 10/28/2024 ANIONGAP 12.0 10/28/2024 EGFR 64.2 10/28/2024 Lab Results Component Value Date HGBA1C 5.33 10/27/2024 Lab Results Component Value Date CHOL 138 10/27/2024 TRIG 42 10/27/2024 HDL 56 10/27/2024 LDL 72 10/27/2024 Imaging: All pertinent imaging studies were personally reviewed. Assessment & Plan Stroke-like symptoms Essential hypertension Mixed hyperlipidemia Dementia A-fib CHF (congestive heart failure) BPH (benign prostatic hyperplasia) Persistent atrial fibrillation - High annual risk of stroke with history of TIA as well as prior infarct on brain imaging. Does also have increased risk of falls and injury due to advanced age, cognitive impairment -I discussed the situation with the parents daughter who appears to prefer aspirin at this time. Will continue to reassess as patient does have evidence of prior stroke on MRI - will discontinue amlodipine and add carvedilol Moderately reduced EF - no prior evaluation for comparison, will monitor exertional symptoms with physical therapy - Clinically, not volume overloaded at this time - Add carvedilol as above - If remaining asymptomatic would continue with more conservative management Thank you for allowing us to share in the care of Jessica Burnham. Vu Lopez MD 10/29/24 14:52 EDT * Ester Woodard RN - 10/29/2024 8:26 AM EDTAssociated Order(s): IP CONSULT TO MEDICAL CARE MANAGER Diabetes Education Patient Name: Jessica Burnham Date of : 1935 Admit Date: 10/26/2024 Order criteria not met for diabetes education consult. Current A1c is 5.3, noted during chart review. Pt has no history of DM and no home meds for DM. Please re- consult if needs change. Thank you. Electronically signed by: Ester Woodard RN 10/29/24 08:27 EDT * Riccardo Castañeda APRN - 10/28/2024 2:51 PM EDTAssociated Order(s): Inpatient Gastroenterology Consult [facility]: Inpatient Gastroenterology Consult Inpatient Gastroenterology Consult Consult performed by: Riccardo Castañeda APRN Consult ordered by: Saeed Monique MD Reason for consult: Dysphagia Referring Provider: Provider, No Known PCP: Provider, No Known Chief Complaint: Unknown History of present illness: Jessica Burnham is a 89 y.o. male who is admitted with altered mental status. GI consult received on hospital day 2 for concerns of dysphagia. Patient underwent a speech therapy evaluation with findings concerning for esophageal dysphagia prompting GI consult. Patient is unsure if he has been having true trouble swallowing. Reports he feelsas though he has been eating at his baseline. There have been reports of throat clearing and wet cough following certain meals and textures. Does not report any weight loss. Denies GERD and dyspepsia. Does not report any N/V/D, abdominal pain, SOB, CP, or F/C. No high risk use of NSAIDs though fulldose aspirin is listed as a home medicine. Is on PPI therapy. No prior EGD on record. Denies any prior endoscopic evaluations of GI tract. Past medical, surgical, social, and family histories are reviewed for accuracy. No documented alleviating or exacerbating factors. Does not endorse pain at time of exam. Allergies: Patient has no known allergies. Scheduled Meds: amLODIPine, 5 mg, Oral, Q24H aspirin, 81 mg, Oral, Daily Or aspirin, 300 mg, Rectal, Daily atorvastatin, 40 mg, Oral, Nightly sodium chloride, 10 mL, Intravenous, Q12H Infusions: PRN Meds: ipratropium-albuterol melatonin sodium chloride sodium chloride Home Meds: Medications Prior to Admission Medication Sig Dispense Refill Last Dose/Taking amLODIPine (NORVASC) 5 MG tablet Take 1 tablet by mouth Daily. amoxicillin-clavulanate (AUGMENTIN) 875-125 MG per tablet Take 1 tablet by mouth 2 (Two) Times a Day. aspirin 325 MG tablet Take 1 tablet by mouth Daily. bisacodyl (DULCOLAX) 5 MG EC tablet Take 2 tablets by mouth Daily As Needed for Constipation. carvedilol (COREG) 6.25 MG tablet Take 1 tablet by mouth 2 (Two) Times a Day With Meals. Diclofenac Sodium (VOLTAREN) 1 % gel gel Apply 4 g topically to the appropriate area as directed 4 (Four) Times a Day As Needed. dilTIAZem CD (CARDIZEM CD) 180 MG 24 hr capsule Take 2 capsules by mouth Daily. finasteride (PROSCAR) 5 MG tablet Take 1 tablet by mouth Daily. levoFLOXacin (LEVAQUIN) 750 MG tablet Take 1 tablet by mouth Daily. omeprazole (priLOSEC) 40 MG capsule Take 1 capsule by mouth 2 (Two) Times a Day. polyethylene glycol (MIRALAX) 17 g powder Take 17 g by mouth Daily As Needed (constipation). potassium chloride (MICRO-K) 10 MEQ CR capsule Take 2 capsules by mouth Daily. rosuvastatin (CRESTOR) 10 MG tablet Take 1 tablet by mouth Every Night. senna (SENOKOT) 8.6 MG tablet Take 1 tablet by mouth Daily. tamsulosin (FLOMAX) 0.4 MG capsule 24 hr capsule Take 2 capsules by mouth Daily. ROS: Review of Systems Unable to perform ROS: Dementia PAST MED HX: Past Medical History: Diagnosis Date Hypertension PAST SURG HX: No past surgical history on file. FAM HX: Family History Problem Relation Age of Onset No Known Problems Mother No Known Problems Father SOC HX: Social History Socioeconomic History Marital status: Single PHYSICAL EXAM BP (!) 141/112 (BP Location: Left arm, Patient Position: Lying) Pulse 82 Temp 98.5 ??F (36.9 ??C) (Oral) Resp 18 SpO2 93% Wt Readings from Last 3 Encounters: No data found for Wt ,body mass index is unknown because there is no height or weight on file. Physical Exam Vitals and nursing note reviewed. Constitutional: General: He is not in acute distress. Appearance: Normal appearance. He is normal weight. He is not ill-appearing or toxic-appearing. HENT: Head: Normocephalic and atraumatic. Eyes: General: No scleral icterus. Extraocular Movements: Extraocular movements intact. Conjunctiva/sclera: Conjunctivae normal. Pupils: Pupils are equal, round, and reactive to light. Cardiovascular: Rate and Rhythm: Normal rate and regular rhythm. Pulses: Normal pulses. Heart sounds: Normal heart sounds. Pulmonary: Effort: Pulmonary effort is normal. No respiratory distress. Breath sounds: Normal breath sounds. Abdominal: General: Abdomen is flat. Bowel sounds are normal. There is no distension. Palpations: Abdomen is soft. There is no mass. Tenderness: There is no abdominal tenderness. There is no guarding or rebound. Hernia: No hernia is present. Genitourinary: Rectum: Guaiac result negative. Musculoskeletal: Right lower leg: No edema. Left lower leg: No edema. Skin: General: Skin is warm and dry. Capillary Refill: Capillary refill takes less than 2 seconds. Coloration: Skin is not jaundiced or pale. Neurological: General: No focal deficit present. Mental Status: He is alert and oriented to person, place, and time. Psychiatric: Mood and Affect: Mood normal. Behavior: Behavior normal. Thought Content: Thought content normal. Judgment: Judgment normal. Results Review: I reviewed the patient's new clinical results. I reviewed the patient's new imaging results and agree with the interpretation. I reviewed the patient's other test results and agree with the interpretation I personally viewed and interpreted the patient's EKG/Telemetry data Lab Results Component Value Date WBC 4.81 10/28/2024 HGB 14.9 10/28/2024 HGB 14.6 10/27/2024 HCT 43.1 10/28/2024 MCV 79.5 10/28/2024 PLT 168 10/28/2024 No results found for: INR Lab Results Component Value Date GLUCOSE 85 10/28/2024 BUN 21.0 10/28/2024 CREATININE 1.10 10/28/2024 BCR 19.1 10/28/2024 NA 140 10/28/2024 K 4.0 10/28/2024 CO2 24.0 10/28/2024 CALCIUM 9.2 10/28/2024 ALBUMIN 4.3 10/27/2024 ALKPHOS 71 10/27/2024 BILITOT 0.4 10/27/2024 ALT 23 10/27/2024 AST 29 10/27/2024 Duplex Venous Lower Extremity - Left CAR Result Date: 10/28/2024 Normal left lower extremity venous duplex scan. Incidentally enlarged lymph nodes are noted in the left groin. MRI Brain Without Contrast Result Date: 10/27/2024 MRI BRAIN WO CONTRAST Date of Exam: 10/27/2024 6:49 PM EDT Indication: Stroke, follow up Left facialdroop, dysarthria, left-sided weakness. Comparison: None available. Technique: Routine multiplanar/multisequence sequence images of the brain were obtained without contrast administration. Findings: No acute infarct is present on diffusion weighted sequences. Midline structures are normal and the craniocervical junction appears satisfactory. Age-related changes are present with relatively advanced generalized volume loss and typical pontine and periventricular leukomalacia. There are also some areas of more focal cortical volume loss and underlying gliosis such as in the right frontal lobe with the appearance of prior infarct. There is otherwise no evidence of intracranial hemorrhage, mass or mass effect. There is ex vacuo prominence of the ventricles and sulci. The orbits are normal. Theparanasal sinuses are grossly clear. Impression: Advanced chronic and age-related changes are noted as above. There is otherwise no evidence of acute infarct, hemorrhage, mass or mass effect. Electronically Signed: Saulo Romo MD 10/27/2024 10:17 PM EDT Workstation ID: [id number] EEG Result Date: 10/27/2024 History: 89 y old male , AMS. r/o seizure Procedure: A digital electroencephalogram was performed in the Clinical Neurophysiology Laboratory. The 10/20 International System of electrode placement wasused and both Bipolar and referential electrode montages were monitored. EEG Description: This EEG is continuous and symmetrical. During the awake state with eye closed, there is a posterior dominaterhythm of -9- Hz that is symmetrical and reacts appropriately to eye opening. Anterior to posterioramplitude frequency gradient is preserved. With Drowsiness, there is waxing and waning of the posterior dominant rhythm with eventual replacement by a mixture of beta, alpha and theta activity. Photic stimulation using a stepwise increase in photic frequency, results in driving response but no activation of epileptiform activity. A prolonged Lead I EKG rhythm strip revealed heart rate at --70--/min Interpretation: This EEG obtained in the awake and drowsy state is normal for age. Clinical correlation: The diagnosis of epilepsy is clinical one. A normal EEG dose not excludes this Diagnosis. However there are no epileptiform features in this recording to suggest an underlining diagnosis of Epilepsy. Therefore, Clinical correlation is recommended. ASSESSMENTS/PLANS 1. Dysphagia, suspect esophageal 2. Altered mental status, history of dementia Jessica Burnham is a 89 y.o. male who presents to hospital with altered mental status. GI consultedtoday for concerns of dysphagia. Recommend EGD possible dilation in a.m. >>> N.p.o. >>> EGD with dilation in a.m. >>> IV PPI twice daily pending results of EGD given patient's dysphagia-like symptoms. I discussed the patient's findings and my recommendations with patient. Riccardo Castañeda APRN 10/28/24 14:51 EDT Cosigned by Mian Garcia MD at 10/28/2024 5:48 PM EDT Associated attestation - Mian Garcia MD - 10/28/2024 5:48 PM EDT I have reviewed this documentation and agree. * Roxy Jimenez APRN - 10/26/2024 9:52 PM EDT Stroke Consult Note Patient Name: Jessica Burnham Age: 89 y.o. Sex: male : 1935 Primary Care Physician: Provider, No Known Referring Physician: Tray HELM TIME STROKE TEAM CALLED: 1902 EST TIME PATIENT SEEN: 1902 EST Handedness: Right Race: -[place] Chief Complaint/Reason for Consultation: Was found altered HPI: This is Mr. Jessica Armstrong 89-year-old -[place] male, right- handed, with significant health diagnosis for dementia, former smoker and alcohol drinker, COPD, hypertension, hyperlipidemia, sciatica who presented to our facility as a direct admit from [facility] for stroke workup and higher level of care after patient was brought by EMS to the outside facility after he was found by neighbor altered in the yard around 11 AM, he was reported to have left facial droopand difficulty following commands. NIH at the outside hospital was reported 8. Upon arrival to our facility patient is resting in bed, pleasant does follow commands, hard of hearing. Alert to himself otherwise disoriented to time situation and date. No focal weakness per my exam upper and lower extremity strength equal. Tongue protrudes midline no aphasia or dysarthria. No facial droop observed. No vision deficit no reported numbness or tingling or sensation deficit. No ataxia or dysmetria. There is left lower extremity swelling and pitting edema. Unknown exact baseline to patient. Patient tells me he lives by himself and caregiver comes to him daily. Spoke to the daughter over the phone who confirmed what the patient reported. Patient mostly independent with all ADL with the help of his caregiver. No reported ambulatory devices. No reported current tobacco, alcohol, illicit drug or marijuana use. Last Known Normal Date/Time: 1600 EST Review of Systems Constitutional: Positive for activity change. Neurological: Positive for facial asymmetry and speech difficulty. Psychiatric/Behavioral: Positive for confusion. No past medical history on file. No past surgical history on file. No family history on file. Social History Socioeconomic History Marital status: Single No Known Allergies Prior to Admission medications Not on File Heart Rate: [83-86] 86 Resp: [14] 14 BP: (165)/(95) 165/95 Neurological Exam Mental Status Awake and alert. Oriented only to person. Speech is normal. Language is fluent with no aphasia. Cranial Nerves CN II: Right visual acuity: Normal. Left visual acuity: Normal. CN III, IV, : Extraocular movements intact bilaterally. Normal lids and orbits bilaterally. Pupils equal round and reactive to light bilaterally. CN V: Facial sensation is normal. CN VII: Full and symmetric facial movement. CN VIII: Hard of hearing bilateral. CN IX, X: Palate elevates symmetrically CN XI: Shoulder shrug strength is normal. CN XII: Tongue midline without atrophy or fasciculations. Motor Decreased muscle bulk throughout. No fasciculations present. Normal muscle tone. No abnormal involuntary movements. Strength is 5/5 throughout all four extremities. Sensory Light touch is normal in upper and lower extremities. No right-sided hemispatial neglect. No left-sided hemispatial neglect. Right extinction absent: Left extinction absent: Reflexes Right Plantar: downgoing Left Plantar: downgoing Coordination Right: [id number] normal.Left: [id number]-tn-[id number] normal. Gait Unable to assess. Physical Exam Constitutional: General: He is awake. HENT: Head: Normocephalic and atraumatic. Mouth/Throat: Mouth: Mucous membranes are moist. Eyes: General: Lids are normal. Extraocular Movements: Extraocular movements intact. Pupils: Pupils are equal, round, and reactive to light. Cardiovascular: Rate and Rhythm: Normal rate and regular rhythm. Pulses: Normal pulses. Pulmonary: Effort: Pulmonary effort is normal. Abdominal: Tenderness: There is no abdominal tenderness. Musculoskeletal: General: Swelling present. Normal range of motion. Cervical back: Normal range of motion and neck supple. Left lower leg: Edema present. Skin: General: Skin is warm and dry. Capillary Refill: Capillary refill takes less than 2 seconds. Neurological: General: No focal deficit present. Mental Status: He is alert. Mental status is at baseline. He is disoriented. Motor: Motor strength is normal. Psychiatric: Speech: Speech normal. Acute Stroke Data Thrombolytic Inclusion / Exclusion Criteria Time: 21:52 EDT Person Administering Scale: Roxy Jimenez APRN YES NO INCLUSION CRITERIA CLASS I [] [] Suspected diagnosis of acute ischemic stroke with measureable neurological deficit. Low NIHSS with disabling stroke symptoms. [] [] Onset of stroke symptoms < 3 hours before beginning treatment >/ 18 years old Stroke symptom onset = time patient was last seen well or without symptoms (LKW) [] [] Onset of symptoms between 3-4.5 hours: >/= 80 years old (safe Class IIa) with history of both diabetes and prior CVA (reasonable Class IIb) AND NIHSS </= 25 *If not eligible for IV Thrombolytic consider neuro intervention for LKW within 24 hours YES NO EXCLUSION CRITERIA (CONTRAINDICATIONS) CLASS III EVIDENCE HARM [] [] Blood pressure >185/110 medically refractory to IV medications [] [] Active bleeding at a non-compressible site [] [] Active intracranial hemorrhage (ICH) [] [] Symptoms suggestive of subarachnoid hemorrhage (SAH) [] [] GI bleed within 21 days [] [] Ischemic stroke within 3 months [] [] Severe head trauma within 3 months [] [] Intracranial or intraspinal surgery within 3 months [] [] Current GI malignancy [] [] Intracranial neoplasm [] [] Infective endocarditis [] [] Aortic arch dissection [] [] Active coagulopathy with INR >1.7, platelets <100,000, PTT > 40 sec, PT > 15 sec *For warfarin, administration can begin before blood tests resulted. Discontinue for above values. [] [] Treatment dose* of LMWH (Lovenox) in last 24 hours *prophylactic dosages are not a contraindication [] [] Concurrent use of antiplatelet agents' glycoprotein inhibitors IIb/IIIa (Integrilin, etc.) [] [] Thrombin or factor Xa inhibitors (Eliquis, Xarelto, Arixtra) taken in last 48 hours YES NO CLASS II: AIS WITH THE FOLLOWING CONDITIONS - TREATMENT RISKS SHOULD BE WEIGHED AGAINST POSSIBLE BENEFITS. [] [] Major trauma in last 14 days, recent major surgery in last 14 days, intracranial arterial dissection, giant unruptured and unsecured intracranial aneurysm, pericarditis [] [] The risks and benefits have been discussed with the patient or family related to the administration of IV thrombolytic therapy for stroke symptoms. [] [] I have discussed and reviewed the patient's case and imaging with the attending prior to IV thrombolytic therapy. TIME na Time IV thrombolytic administered Hospital Meds: Scheduled- aspirin, 81 mg, Oral, Daily Or aspirin, 300 mg, Rectal, Daily atorvastatin, 80 mg, Oral, Nightly sodium chloride, 10 mL, Intravenous, Q12H Infusions- PRNs- ipratropium-albuterol sodium chloride sodium chloride Functional Status Prior to Current Stroke/[place] Score: 1-2 NIH Stroke Scale Time: 21:52 EDT Person Administering Scale: Royx Jimenez APRN Interval: baseline 1a. Level of Consciousness: 0-->Alert, keenly responsive 1b. LOC Questions: 1-->Answers one question correctly 1c. LOC Commands: 0-->Performs both tasks correctly 2. Best Gaze: 0-->Normal 3. Visual: 0-->No visual loss 4. Facial Palsy: 0-->Normal symmetrical movements 5a. Motor Arm, Left: 0-->No drift, limb holds 90 (or 45) degrees for full 10 secs 5b. Motor Arm, Right: 0-->No drift, limb holds 90 (or 45) degrees for full 10 secs 6a. Motor Leg, Left: 0-->No drift, leg holds 30 degree position for full 5 secs 6b. Motor Leg, Right: 0-->No drift, leg holds 30 degree position for full 5 secs 7. Limb Ataxia: 0-->Absent 8. Sensory: 0-->Normal, no sensory loss 9. Best Language: 0-->No aphasia, normal 10. Dysarthria: 0-->Normal 11. Extinction and Inattention (formerly Neglect): 0-->No abnormality Total (NIH Stroke Scale): 1 Results Reviewed: I have personally reviewed current lab, radiology, and data and agree with results. Outside hospital lab WBC 3.6 H&H 11.7\32.8 MCV 78.5 Platelet 142 Sodium 141 Potassium 4 BUN 27 Creatinine 1.30 GFR 52 Glucose 134 AST 27 ALT 21 ALP 51 Cholesterol 100 LDL 40 [address] head without contrast Right frontal hypodensity suspicion for stroke CTA head and neck no large vessel occlusion intracranial, left MCA severe stenosis, proximal M2 stenosis. Atherosclerosis intra extracranial Assessment/Plan: This is 89-year-old -[place] male, right-handed with multiple vascular risk factor presented to outside hospital for altered mental status. Transferred to our facility for full stroke workup and higher level of care. Patient was not a candidate for IV thrombolytic therapy or mechanical thrombectomy as he was back to his baseline. 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 or 300 mg rectal till evaluation of MRI, will discuss with the morning team adding Plavix. - NIH\neurocheck per protocol - EEG ordered and pending -Activity as tolerated, fall risk precautions -PT/OT/OYSTER TONGER evaluation - Neurology stroke will continue to follow-up 2. Essential hypertension, complicated by uncontrolled hypertension -Allow autoregulation of blood pressure for adequate cerebral blood flow -Nicardipine as needed for SBP >220 3. Hyperlipidemia -Lipid panel in AM -Atorvastatin 80mg nightly for secondary stroke prevention 4. Dementia - Continue home meds - Management by medicine team 5. Left lower extremity swelling - Doppler left lower extremity ordered and pending 6. Microcytic anemia - H&H stable - Monitor any signs and symptoms of bleed - Management by medicine team Plan of care was discussed with patient, daughter, primary RN, CLAUDIA dayshift discussed with Prudence neurology stroke. Stroke neurology will continue to follow. Please call with any questions or concerns. Thank you for this consult. Roxy Jimenez APRN October 26, 2024 21:52 EDT documented in this encounter Nursing Notes * Amita Decker RN - 11/02/2024 3:23 AM EDT Goal Outcome Evaluation: Plan of Care Reviewed With: patient Progress: improving Outcome Evaluation: Pt rested well throughout shift. Pt pleasantly confused and easily redirectable. Pt attempts to get out of bed to use bathroom. Redirected to urnial use. Adequate UOP noted with frequency and dribbling. VSS on RA. Takes pills whole. D/C plan home with daughter today, 11/02. No other concerns noted at this time. * Ann Shearer RN - 11/01/2024 9:34 PM EDT Pt refusing NIHSS assessment at this time. States I'm alright, maybe in the morning, its night time. * Kristal Benavidez, CF-OYSTER T[facility]ER - 11/01/2024 4:02 PM EDT Goal Outcome Evaluation: Plan of Care Reviewed With: patient, child Anticipated Discharge Disposition ([facility]): senior living facility Treatment Assessment (OYSTER TONGER): continued, toleration of diet, cognitive-linguistic disorder (11/01/24 1540) Plan for Continued Treatment (OYSTER TONGER): continue treatment per plan of care (11/01/24 1540) * Niru Ariza RN - 11/01/2024 5:28 AM EDT Goal Outcome Evaluation: Plan of Care Reviewed With: patient Progress: improving * Jeanne Snider RN - 10/31/2024 6:00 PM EDT Goal Outcome Evaluation: Outcome Evaluation: Patient is alert ot self noted to be confused with place, time and situration. Able to voice wants and needs to staff has denied pain today. Has alarms on and in place with call light within reach. * Razia Jurado, PT - 10/31/2024 1:37 PM EDT Goal Outcome Evaluation: Plan of Care Reviewed With: patient Progress: improving Outcome Evaluation: Pt continues to present below his functional baseline with generalized weakness, impaired balance, and cognitive deficits. He ambulated 40' with CGA and RW. Further IPPT is warrented. PT will progress as able per POC. Anticipated Discharge Disposition (PT): senior living facility * Sissy Lopez MS [facility] - 10/30/2024 4:07 PM EDT Goal Outcome Evaluation: Plan of Care Reviewed With: patient Anticipated Discharge Disposition (OY[facility]ER): senior living facility [facility] Diagnosis: mild, cognitive-linguistic disorder (10/30/24 1430) OY[facility] Swallowing Diagnosis: functional oral phase, R/O pharyngeal dysphagia, suspected esophageal dysphagia (10/30/24 1430) Treatment Assessment (OYSTER [facility]ONGER): continued, mild, cognitive-linguistic disorder (10/30/24 1430) Treatment Assessment Comments (OYSTER TONGER): Patient tolerated trials of soft solids w/o discomfort or s/s of aspiration. EGD completed on 10/29/24 with dilation completed. Diet upgraded this date to soft chopped and thin liquids. Patient continues with mild cognitive linguistic impairment. (10/30/24 1430) Plan for Continued Treatment (OYSTER TONGER): continue treatment per plan of care (10/30/24 1430) * Yvonne Felder, PT - 10/30/2024 11:14 AM EDT Goal Outcome Evaluation: Plan of Care Reviewed With: patient Progress: no change Outcome Evaluation: Pt with good participation in LE therapeutic exercises and able to perform STS with CGA. Pt able to take 4 steps forward/backward with FWW, however pt refused further ambulation despite education and encouragement. Pt will benefit from PT to address ongoing strength, balance, and endurance deficits. Anticipated Discharge Disposition (PT): senior living facility * Jaylin Concepcion, OT - 10/30/2024 9:46 AM EDT Goal Outcome Evaluation: Plan of Care Reviewed With: patient Progress: improving Outcome Evaluation: Patient demonstrating improvements w/ activity tolerance, transfers and ADLs. Pt able to stand at sink side to complete ADLs w/o LOB. Pt continues to require cueing and assist formobility leading him to be below his functional baseline. Continue to progress per current POC. Anticipated Discharge Disposition (OT): senior living facility * Edil Franklin, PT Student - 10/29/2024 2:48 PM EDT Goal Outcome Evaluation: Plan of Care Reviewed With: (P) patient Progress: (P) improving Outcome Evaluation: (P) Pt demonstrates improved BLE strength and ability to complete bed mobility with less assist into todays session. Pt continues to present with decreased safety awareness, inability to safely position mobility device, and impulsivity when completeing transfers. Ambulation and theraputic exercise limited by pt refusal today. Pt continues to be appropriate for skilled PT services. PT rec to SNF upon D/C. Anticipated Discharge Disposition (PT): (P) senior living facility Cosigned by Yvonne Felder, PT at 10/29/2024 3:55 PM EDT Associated attestation - Yvonne Felder PT - 10/29/2024 3:55 PM EDT Yvonne Felder PT, DPT, CSRS * Annelise Sewell RN - 10/29/2024 4:36 AM EDT Goal Outcome Evaluation: Plan of Care Reviewed With: patient Patient used urinal at bedside continuously throughout the night. Patient got very little sleep. NPO at midnight. * Pearl Holt, OT - 10/28/2024 3:45 PM EDT Goal Outcome Evaluation: Plan of Care Reviewed With: patient Progress: no change Outcome Evaluation: OT eval complete. Pt presents below fxl baseline with ADLs and mobility, limited by weakness, poor activity tolerance, balance deficits, and baseline cognitive impairments (dementia). Pt ambulated to and from bathroom with FWW and CGA- pt dependent with pericare and needs BRIEF WITH MOBILITY. Pt would benefit from ongoing skilled OT services to progress to PLOF. Rec d/c to SNF. Anticipated Discharge Disposition (OT): senior living facility * Jennifer Hendrickson PT - 10/28/2024 2:55 PM EDT Goal Outcome Evaluation: Plan of Care Reviewed With: patient Progress: no change Outcome Evaluation: PT evaluation completed. Pt able to state name but unable to state time/date orplace. Pt req CGA with ambulating in room with FWW, had episode of incontinence. Pt demo strength and balance deficits, will beneift from IP PT services. Recommend SNF upon DC. Anticipated Discharge Disposition (PT): senior living facility, home with 08/11 care * Izabel Allen RN - 10/28/2024 5:24 AM EDT Problem: Adult Inpatient Plan of Care Goal: Plan of Care Review Outcome: Progressing Flowsheets (Taken 10/28/2024 0524) Progress: no change Plan of Care Reviewed With: patient Goal: Patient-Specific Goal (Individualized) Outcome: Progressing Goal: Absence of Hospital-Acquired Illness or Injury Outcome: Progressing Intervention: Identify and Manage Fall Risk Recent Flowsheet Documentation Taken 10/28/2024 043 by Izabel Allen RN Safety Promotion/Fall Prevention: activity supervised assistive device/personal items within reach safety round/check completed Taken 10/28/2024 0208 by Izabel Allen RN Safety Promotion/Fall Prevention: assistive device/personal items within reach activity supervised safety round/check completed Taken 10/28/2024 0039 by Izabel Allen RN Safety Promotion/Fall Prevention: activity supervised assistive device/personal items within reach safety round/check completed Taken 10/27/2024 2242 by Izabel Allen RN Safety Promotion/Fall Prevention: assistive device/personal items within reach activity supervised safety round/check completed Taken 10/27/20242008 by Izabel Allen RN Safety Promotion/Fall Prevention: activity supervised assistive device/personal items within reach clutter free environment maintained fall prevention program maintained lighting adjusted nonskid shoes/slippers when out of bed muscle strengthening facilitated room organization consistent safety round/check completed Intervention: Prevent Skin Injury Recent Flowsheet Documentation Taken 10/28/2024 043 by Izabel Allen RN Body Position: supine Taken 10/28/2024 0208 by Izabel Allen RN Body Position: weight shifting supine Taken 10/28/202438 by Izabel Allen RN Body Position: supine position changed independently Taken 10/27/20242241 by Izabel Allen RN Body Position: position changed independently Taken 10/27/20242008 by Izabel Allen RN Body Position: supine Skin Protection: pulse oximeter probe site changed Intervention: Prevent and Manage VTE (Venous Thromboembolism) Risk Recent Flowsheet Documentation Taken 10/27/20242008 by Izabel Allen RN VTE Prevention/Management: bilateral SCDs (sequential compression devices) off patient refused intervention Intervention: Prevent Infection Recent Flowsheet Documentation Taken 10/28/2024436 by Izabel Allen RN Infection Prevention: hand hygiene promoted rest/sleep promoted Taken 10/28/2024207 by Izabel Allen RN Infection Prevention: hand hygiene promoted rest/sleep promoted Taken 10/28/202438 by Izabel Allen RN Infection Prevention: hand hygiene promoted rest/sleep promoted Taken 10/27/20242241 by Izabel Allen RN Infection Prevention: hand hygiene promoted rest/sleep promoted Taken 10/27/20242008 by Izabel Allen RN Infection Prevention: hand hygiene promoted rest/sleep promoted Goal: Optimal Comfort and Wellbeing Outcome: Progressing Intervention: Provide Person-Centered Care Recent Flowsheet Documentation Taken 10/28/2024436 by Izabel Allen RN Trust Relationship/Rapport: care explained Taken 10/28/2024207 by Izabel Allen RN Trust Relationship/Rapport: care explained Taken 10/28/202438 by Izabel Allen RN Trust Relationship/Rapport: care explained Taken 10/27/20242241 by Izabel Allen RN Trust Relationship/Rapport: care explained Taken 10/27/20242008 by Izabel Allen RN Trust Relationship/Rapport: care explained choices provided questions answered questions encouraged reassurance provided Goal: Readiness for Transition of Care Outcome: Progressing Problem: Skin Injury Risk Increased Goal: Skin Health and Integrity Outcome: Progressing Intervention: Optimize Skin Protection Recent Flowsheet Documentation Taken 10/28/2024436 by Izabel Allen RN Activity Management: activity encouraged Head of Bed (HOB) Positioning: HOB elevated Taken 10/28/2024207 by Izabel Allen RN Activity Management: activity encouraged Head of Bed (HOB) Positioning: HOB elevated Taken 10/28/202438 by Izabel Allen RN Activity Management: activity encouraged Head of Bed (HOB) Positioning: HOB elevated Taken 10/27/20242241 by Izabel Allen RN Activity Management: activity encouraged Head of Bed (HOB) Positioning: HOB elevated Taken 10/27/20242008 by Izabel Allen RN Activity Management: activity encouraged Pressure Reduction Techniques: frequent weight shift encouraged Head of Bed (HOB) Positioning: HOB elevated Pressure Reduction Devices: heel offloading device utilized Skin Protection: pulse oximeter probe site changed Problem: Fall Injury Risk Goal: Absence of Fall and Fall-Related Injury Outcome: Progressing Intervention: Identify and Manage Contributors Recent Flowsheet Documentation Taken 10/28/2024436 by Izabel Allen RN Self-Care Promotion: independence encouraged Taken 10/28/2024207 by Izabel Allen RN Self-Care Promotion: independence encouraged Taken 10/28/202438 by Izabel Allen RN Self-Care Promotion: independence encouraged Taken 10/27/20242241 by Izabel Allen RN Self-Care Promotion: independence encouraged Taken 10/27/20242008 by Izabel Allen RN Medication Review/Management: medications reviewed Self-Care Promotion: independence encouraged Intervention: Promote Injury-Free Environment Recent Flowsheet Documentation Taken 10/28/2024436 by Izabel Allen RN Safety Promotion/Fall Prevention: activity supervised assistive device/personal items within reach safety round/check completed Taken 10/28/2024207 by Izabel Allen RN Safety Promotion/Fall Prevention: assistive device/personal items within reach activity supervised safety round/check completed Taken 10/28/202438 by Izabel Allen RN Safety Promotion/Fall Prevention: activity supervised assistive device/personal items within reach safety round/check completed Taken 10/27/20242241 by Izabel Allen RN Safety Promotion/Fall Prevention: assistive device/personal items within reach activity supervised safety round/check completed Taken 10/27/20242008 by Izabel Allen RN Safety Promotion/Fall Prevention: activity supervised assistive device/personal items within reach clutter free environment maintained fall prevention program maintained lighting adjusted nonskid shoes/slippers when out of bed muscle strengthening facilitated room organization consistent safety round/check completed Goal: Absence of Fall and Fall-Related Injury Outcome: Progressing Intervention: Identify and Manage Contributors Recent Flowsheet Documentation Taken 10/28/2024 043 by Izabel Allen RN Self-Care Promotion: independence encouraged Taken 10/28/2024207 by Izabel Allen RN Self-Care Promotion: independence encouraged Taken 10/28/202438 by Izabel Allen RN Self-Care Promotion: independence encouraged Taken 10/27/20242241 by Izabel Allen RN Self-Care Promotion: independence encouraged Taken 10/27/20242008 by Izabel Allen RN Medication Review/Management: medications reviewed Self-Care Promotion: independence encouraged Intervention: Promote Injury-Free Environment Recent Flowsheet Documentation Taken 10/28/2024436 by Izabel Allen RN Safety Promotion/Fall Prevention: activity supervised assistive device/personal items within reach safety round/check completed Taken 10/28/2024207 by Izabel Allen RN Safety Promotion/Fall Prevention: assistive device/personal items within reach activity supervised safety round/check completed Taken 10/28/202438 by Izabel Allen RN Safety Promotion/Fall Prevention: activity supervised assistive device/personal items within reach safety round/check completed Taken 10/27/20242241 by Izabel Allen RN Safety Promotion/Fall Prevention: assistive device/personal items within reach activity supervised safety round/check completed Taken 10/27/20242008 by Izabel Allen RN Safety Promotion/Fall Prevention: activity supervised assistive device/personal items within reach clutter free environment maintained fall prevention program maintained lighting adjusted nonskid shoes/slippers when out of bed muscle strengthening facilitated room organization consistent safety round/check completed Problem: Confusion Acute Goal: Optimal Cognitive Function Outcome: Progressing Goal Outcome Evaluation: Plan of Care Reviewed With: patient Pt currently in bed resting quietly. No complaints of pain or discomfort at this time. VSS. Pt anxious this shift as evidenced by frequent attempts at exiting bed unattended, removing monitoring devices, and not cooperating with staff. MRI and urine analysis completed. NIH of 1 r/t cognition. Plansto find what is caused confused state. No other observations at this time, call bagley in reach. Progress: no change * Bernie Jackson RN - 10/27/2024 4:42 PM EDT Problem: Adult Inpatient Plan of Care Goal: Plan of Care Review Outcome: Progressing Flowsheets (Taken 10/27/2024 1635) Outcome Evaluation: Admitted confusion, dysarthria, and BLE drift. Transferred from [facility]. Today 10/27 pt is A&O x3 with some mild confusion to situation. Cooperative today. SLPcleared pt for pureed diet w/ thin liquids. Tolerating diet so fare. MRI screening sheet in chart, MRI pending. EEG completed. UA drug screen-negative. Goal: Patient-Specific Goal (Individualized) Outcome: Progressing Goal: Absence of Hospital-Acquired Illness or Injury Outcome: Progressing Intervention: Identify and Manage Fall Risk Recent Flowsheet Documentation Taken 10/27/2024 1400 by Bernie Jackson RN Safety Promotion/Fall Prevention: activity supervised fall prevention program maintained nonskid shoes/slippers when out of bed safety round/check completed Taken 10/27/2024 1200 by Bernie Jackson RN Safety Promotion/Fall Prevention: activity supervised fall prevention program maintained nonskid shoes/slippers when out of bed safety round/check completed Taken 10/27/2024 1000 by Bernie Jackson RN Safety Promotion/Fall Prevention: activity supervised fall prevention program maintained nonskid shoes/slippers when out of bed safety round/check completed Taken 10/27/2024 0800 by Bernie Jackson RN Safety Promotion/Fall Prevention: activity supervised fall prevention program maintained nonskid shoes/slippers when out of bed safety round/check completed Intervention: Prevent Skin Injury Recent Flowsheet Documentation Taken 10/27/2024 1400 by Bernie Jackson RN Body Position: turned left Skin Protection: pulse oximeter probe site changed silicone foam dressing in place incontinence pads utilized Taken 10/27/2024 1200 by Bernie Jackson RN Body Position: turned right Skin Protection: incontinence pads utilized pulse oximeter probe site changed silicone foam dressing in place Taken 10/27/2024 1000 by Bernie Jackson RN Body Position: left turned Skin Protection: incontinence pads utilized pulse oximeter probe site changed silicone foam dressing in place Taken 10/27/2024 0800 by Bernie Jackson RN Body Position: right side-lying Skin Protection: (skin under silicone pads assessed) incontinence pads utilized pulse oximeter probe site changed silicone foam dressing in place Goal: Optimal Comfort and Wellbeing Outcome: Progressing Intervention: Provide Person-Centered Care Recent Flowsheet Documentation Taken 10/27/2024 0800 by Bernie Jackson RN Trust Relationship/Rapport: care explained Goal: Readiness for Transition of Care Outcome: Progressing Goal Outcome Evaluation: Outcome Evaluation: Admitted confusion, dysarthria, and BLE drift. Transferred from [facility]. Today 10/27 pt is A&O x3 with some mild confusion to situation. Cooperative today. SLPcleared pt for pureed diet w/ thin liquids. Tolerating diet so fare. MRI screening sheet in chart, MRI pending. EEG completed. UA drug screen-negative. * Sissy Lopez MS CCC-[facility] - 10/27/2024 2:47 PM EDT Goal Outcome Evaluation: Plan of Care Reviewed With: patient Anticipated Discharge Disposition ([facility]): senior living facility [facility] Diagnosis: mild, cognitive-linguistic disorder (10/27/24 1300) [facility] Swallowing Diagnosis: functional oral phase, R/O pharyngeal dysphagia, suspected esophageal dysphagia (10/27/24 1300) * Enedelia Mora RN - 10/26/2024 8:18 PM EDT Direct admit arrived to floor ~1840. NIH 8. VSS. Stroke navigator and MD notified. Security called as patient had a large amount of mcgowan he wanted to lock in security. documented in this encounter OR Notes * Brief Op Note - Mian Garcia MD - 10/29/2024 9:38 AM EDT ESOPHAGOGASTRODUODENOSCOPY Progress Note Jessica Burnham 10/29/2024 EGD is normal. Empiric esophageal dilations performed at 48 and 51 U[place], without mucosal disruption. >> Assess response to empiric esophageal dilation. >> Decrease PPI to once daily. Please call with questions or concerns. Mian Garcia MD Date: 10/29/2024 Time: 09:45 EDT documented in this encounter Miscellaneous Notes * Therapy Treatment Note - Kristal Benavidez, CF-[facility] - 11/01/2024 4:04 PM EDT Images from the original note were not included. Acute Care - Speech Language Pathology Swallow Treatment Note [place] Patient Name: Jessica Burnham : 1935 Today's Date: 11/01/2024 Admit Date: 10/26/2024 Visit Dx: ICD-10-CM ICD-9-CM 1. Esophageal dysphagia R13.19 787.29 2. Dysphagia, unspecified type R13.10 787.20 3. Cognitive communication deficit R41.841 799.52 Patient Active Problem List Diagnosis Stroke-like symptoms Essential hypertension Mixed hyperlipidemia Dementia A-fib CHF (congestive heart failure) BPH (benign prostatic hyperplasia) Past Medical History: Diagnosis Date BPH (benign prostatic hyperplasia) 10/29/2024 Hypertension Past Surgical History: Procedure Laterality Date ENDOSCOPY N/A 10/29/2024 Procedure: ESOPHAGOGASTRODUODENOSCOPY; Surgeon: Mian Garcia MD; Location: [facility]; Service: Gastroenterology; Laterality: N/A; [facility] Recommendation and Plan [facility] Diet Recommendation: soft to chew textures, chopped, thin liquids (11/01/241539) Recommended Precautions and Strategies: upright posture during/after eating, small bites of food and sips of liquid, reflux precautions (11/01/241539) OYSTER [facility] Rec. for Method of Medication Administration: meds whole, meds crushed, with puree, as tolerated (11/01/241539) Monitor for Signs of Aspiration: notify OY[facility] T[facility]ER if any concerns (11/01/241539) Anticipated Discharge Disposition (OY[facility] TONGER): home with [facility] care (11/01/241539) Therapy Frequency (Swallow): 3 days per week (11/01/241539) Predicted Duration Therapy Intervention (Days): 1 week (11/01/241539) Oral Care Recommendations: Oral Care BID/PRN, Toothbrush (11/01/241539) Daily Summary of Progress (OY[facility]ONGER): progress toward functional goals as expected (11/01/241539) Treatment Assessment (OYSTER TONGER): continued, toleration of diet, cognitive-linguistic disorder (11/01/241539) Plan for Continued Treatment (OYSTER TONGER): continue treatment per plan of care (11/01/241539) SWALLOW EVALUATION (Last 72 Hours) OY[facility] Adult Swallow Evaluation Row Name 11/01/24153910/30/24 1430 OYSTER [facility]ER Evaluation Clinical Impression [facility] Swallowing Diagnosis -- functional oral phase;R/O pharyngeal dysphagia;suspected esophageal dysphagia - Functional Impact -- risk of aspiration/pneumonia;risk of malnutrition - Rehab Potential/Prognosis, Swallowing -- good, to achieve stated therapy goals - Swallow Criteria for Skilled Therapeutic Interventions Met -- demonstrates skilled criteria - OYSTER [facility]ER Treatment Clinical Impressions Treatment Assessment Comments (OYSTER TONGER) -- Patient tolerated trials of soft solids w/o discomfort or s/s of aspiration. EGD completed on 10/29/24 with dilation completed. Diet upgraded this date to soft chopped and thin liquids. Patient continues with mild cognitive linguistic impairment. - Recommendations Therapy Frequency (Swallow) 3 days per week -SM PRN;5 days per week - OYSTER [facility]ONGER Diet Recommendation soft to chew textures;chopped;thin liquids - soft to chew textures;chopped;thin liquids - Recommended Diagnostics -- other (see comments) diet tolerance - Recommended Precautions and Strategies upright posture during/after eating;small bites of food and sips of liquid;reflux precautions - upright posture during/after eating;small bites of food and sips of liquid;reflux precautions - Oral Care Recommendations Oral Care BID/PRN;Toothbrush - Oral Care BID/PRN;Toothbrush - OYSTER [facility]ONGER Rec. for Method of Medication Administration meds whole;meds crushed;with puree;as tolerated - meds whole;meds crushed;with puree;as tolerated - Monitor for Signs of Aspiration notify OYSTER T[facility]ER if any concerns - notify [facility]ER if any concerns - Anticipated Discharge Disposition ([facility]ER) home with 08/11 care -SM -- User Carmona (r) = Recorded By, (t) = Taken By, (c) = Cosigned By Initials Name Effective Dates CH Sissy Lopez, MS [facility] 05/07/24 - Kristal Tovar MS CF-[facility] 09/20/24 - EDUCATION The patient has been educated in the following areas: Cognitive Impairment Communication Impairment Dysphagia (Swallowing Impairment). [facility] GOALS Row Name 11/01/24 1540 10/30/24 1430 (LTG) Patient will demonstrate functional swallow for Diet Texture (Demonstrate functional swallow) soft to chew (chopped) textures - SM soft to chew (chopped) textures - Liquid viscosity (Demonstrate functional swallow) thin liquids -SM thin liquids - [place] (Demonstrate functional swallow) with minimal cues (75-90% accuracy) -SM with minimal cues (75-90% accuracy) - Time Frame (Demonstrate functional swallow) 1 week - 1 week - Progress/Outcomes (Demonstrate functional swallow) continuing progress toward goal - good progress toward goal - Comment (Demonstrate functional swallow) -- Patient tolerated soft solid and thin liquid trials w/os/s of aspiration - (STG) Patient will tolerate trials of Consistencies Trialed (Tolerate trials) thin liquids;soft to chew (chopped) textures -SM thin liquids;soft to chew (chopped) textures - Desired Outcome (Tolerate trials) without signs/symptoms of aspiration;with adequate oral prep/transit/clearance -SM without signs/symptoms of aspiration;with adequate oral prep/transit/clearance - [place] (Tolerate trials) with minimal cues (75-90% accuracy) -SM with minimal cues (75-90% accuracy) - Time Frame (Tolerate trials) 1 week -SM 1 week - Progress/Outcomes (Tolerate trials) goal met;goal revised this date -SM goal met;goal revised this date - Comment (Tolerate trials) Pt refused trials of solid and thins - goal met for pureed, diet upgraded to soft chopped and thin liquids. - Patient will demonstrate functional cognitive-linguistic skills for return to discharge environment [place] with minimal cues - with minimal cues - Time frame 1 week -SM 1 week -CH Progress/Outcomes continuing progress toward goal -SM continuing progress toward goal -CH [facility] Diagnostic Treatment Patient will participate in further assessment in the following areas clarification of baseline cognitive communication status - clarification of baseline cognitive communication status - Time Frame (Diagnostic) 1 week -SM 1 week - Progress/Outcomes (Additional Goal 1, [facility]ER) goal met - continuing progress toward goal -CH Comment (Diagnostic) Daughter present in room, attests that pt is at baseline cog fx -SM -- Word Retrieval Skills Goal 1 (OYSTER TONGER) Improve Word Retrieval Skills By Goal 1 (OYSTER TONGER) high frequency;responsive naming task;completing a divergent task;80%;with minimal cues (75-90%) - high frequency;responsive naming task;completing a divergent task;80%;with minimal cues (75-90%) - Time Frame (Word Retrieval Goal 1, OYSTER TONGER) 1 week - 1 week -CH Progress (Word Retrieval Skills Goal 1, OYSTER TONGER) -- 80%;with minimal cues (75-90%) - Progress/Outcomes (Word Retrieval Goal 1, OYSTER TONGER) goal no longer appropriate - continuing progress toward goal -CH Comment (Word Retrieval Goal 1, OYSTER TONGER) Pt at baseline cog fx -SM -- Orientation Goal 1 (OYSTER TONGER) Improve Orientation Through Goal 1 (OYSTER TONGER) demonstrating orientation to day;demonstrating orientationto month;demonstrating orientation to year;demonstrating orientation to place;demonstrating orientation to disease/impairment;use environmental aids to assist with orientation;80%;with minimal cues (75-90%) - demonstrating orientation to day;demonstrating orientation to month;demonstrating orientation to year;demonstrating orientation to place;demonstrating orientation to disease/impairment;useenvironmental aids to assist with orientation;80%;with minimal cues (75-90%) - Time Frame (Orientation Goal 1, OYSTER TONGER) 1 week -SM 1 week -CH Progress (Orientation Goal 1, OYSTER TONGER) 30%;with minimal cues (75-90%) -SM 50%;with minimal cues (75-90%) -CH Progress/Outcomes (Orientation Goal 1, OYSTER TONGER) goal no longer appropriate -SM continuing progress toward goal -CH Comment (Orientation Goal 1, OYSTER TONGER) Oriented to self and place -SM Oriented to self and grossly to place, not to time or situation -CH Memory Skills Goal 1 (OYSTER TONGER) Improve Memory Skills Through Goal 1 (OYSTER TONGER) recalling related word lists immediately;recall details of the day;90%;with minimal cues (75-90%) -SM recalling related word lists immediately;recall details of the day;90%;with minimal cues (75-90%) -CH Time Frame (Memory Skills Goal 1, OYSTER TONGER) 1 week -SM 1 week -CH Progress (Memory Skills Goal 1, OYSTER TONGER) 30%;with minimal cues (75-90%) -SM 40%;with minimal cues (75-90%) -CH Progress/Outcomes (Memory Skills Goal 1, OYSTER TONGER) goal no longer appropriate -SM continuing progress toward goal -CH Comment (Memory Skills Goal 1, OYSTER TONGER) Could not recall details of day, recalled 2/3 related words immediately -SM -- User Carmona (r) = Recorded By, (t) = Taken By, (c) = Cosigned By Initials Name Provider Type Sissy Saldana MS CCC-[facility]ER Speech and Language Pathologist Kristal Tovar MS CF-OY[facility] Speech and Language Pathologist Time Calculation: Time Calculation- OYSTER TONGER Row Name 11/01/24 1603 Time Calculation- OYSTER TONGER OYSTER TONGER Start Time 1540 - OYSTER TONGER Received On 11/01/24 - Untimed Charges 67103-MP Treatment/ST Modification Prosth Nov - 25739-AO Treatment Swallow Minutes 10 -SM Total Minutes Untimed Charges Total Minutes 37 -SM Total Minutes 37 -SM User Carmona (r) = Recorded By, (t) = Taken By, (c) = Cosigned By Initials Name Provider Type Kristal Tovar MS [facility] Speech and Language Pathologist Therapy Charges for Today Code Description Service Date Service Provider Modifiers Qty 68329892677 HC ST TREATMENT SPEECH 2 11/01/2024 Kristal Benavidez MS [facility]-OY[facility]ONGER GN [id number] TREATMENT SWALLOW 1 11/01/2024 Kristal Benavidez, MS [facility]-OY[facility] TONGER GN 1 Kristal Benavidez, CF-OYSTER TONGER 11/01/2024 * Case Management/Social Work - Dagmar Matta RN - 11/01/2024 3:22 PM EDT Continued Stay Note [facility] Patient Name: Jessica Burnham Today's Date: 11/01/2024 Admit Date: 10/26/2024 Plan: Home with daughter's assist and caregiver Discharge Plan Row Name 11/01/24 1518 Plan Plan Home with daughter's assist and caregiver Patient/Family in Agreement with Plan yes Plan Comments CM spoke with patient and daughter, INEZ Beaver at bedside regarding Dc planning. Patient is adamant that he does not want to go to rehab and would like to go home. Patient is also declining HH. Daughter is encouraging rehab. Daughter states she will continue to discuss with patient rehab benefits and will notify CM tomorrow on outcome. DCP is likely home with daughter/caregiver assistance. Daughter to provide transportation to home. CM following. Final Discharge Disposition Code 01 - home or self-care Discharge Codes No documentation. Expected Discharge Date and Time Expected Discharge Date Expected Discharge Time Nov 02, 2024 Dagmar Matta RN * Case Management/Social Work - Dagmar Matta RN - 10/31/2024 1:50 PM EDT Continued Stay Note [facility] Patient Name: Jessica Burnham Today's Date: 10/31/2024 Admit Date: 10/26/2024 Plan: SNF Discharge Plan Row Name 10/31/24 1346 Plan Plan SNF Patient/Family in Agreement with Plan yes Plan Comments CM spoke with patient's daughter, Saranya via phone regarding DCP. Saranya states she does not want patient to go to [facility] for rehab. Saranya would like [place] referrals only. Saranya states she will be at the hospital in the am and will notify CM of her choices of facilities at that time. Patient's insurance, [employer], will require a prior authorization for this rehab request. CM following. Final Discharge Disposition Code 03 - senior living facility (SNF) Discharge Codes No documentation. Expected Discharge Date and Time Expected Discharge Date Expected Discharge Time Nov 02, 2024 Dagmar Matta RN * Therapy Treatment Note - Razia Jurado, PT - 10/31/2024 1:37 PM EDT Images from the original note were not included. Patient Name: Jessica Burnham : 1935 Today's Date: 10/31/2024 Admit Date: 10/26/2024 Visit Dx: ICD-10-CM ICD-9-CM 1. Esophageal dysphagia R13.19 787.29 2. Dysphagia, unspecified type R13.10 787.20 3. Cognitive communication deficit R41.841 799.52 Patient Active Problem List Diagnosis Stroke-like symptoms Essential hypertension Mixed hyperlipidemia Dementia A-fib CHF (congestive heart failure) BPH (benign prostatic hyperplasia) Past Medical History: Diagnosis Date BPH (benign prostatic hyperplasia) 10/29/2024 Hypertension Past Surgical History: Procedure Laterality Date ENDOSCOPY N/A 10/29/2024 Procedure: ESOPHAGOGASTRODUODENOSCOPY; Surgeon: Mian Garcia MD; Location: [facility] END[facility]; Service: Gastroenterology; Laterality: N/A; General Information Row Name 10/31/24 1504 Physical Therapy Time and Intention Document Type therapy note (daily note) -AB Mode of Treatment physical therapy -AB Row Name 10/31/24 1504 General Information Patient Profile Reviewed yes -AB Existing Precautions/Restrictions fall;other (see comments) dementia -AB Barriers to Rehab previous functional deficit;cognitive status -AB Row Name 10/31/24 1504 Cognition Orientation Status (Cognition) oriented x 3 -AB Row Name 10/31/24 1504 Safety Issues/Impairments Affecting Functional Mobility Safety Issues Affecting Function (Mobility) awareness of need for assistance;insight into deficits/self-awareness;safety precaution awareness;safety precautions follow-through/compliance;sequencing ab ilities;problem-solving;judgment -AB Impairments Affecting Function (Mobility) balance;cognition;endurance/activity tolerance;postural/trunk control;strength -AB Cognitive Impairments, Mobility Safety/Performance awareness, need for assistance;insight into defic its/self-awareness;judgment;problem-solving/reasoning;sequencing abilities;safety precaution follow-through;safety precaution awareness -AB User Carmona (r) = Recorded By, (t) = Taken By, (c) = Cosigned By Initials Name Provider Type AB Razia Jurado, PT Physical Therapist Mobility Row Name 10/31/24 1505 Bed Mobility Bed Mobility supine-sit;sit-supine;scooting/bridging -AB Scooting/Bridging [place] (Bed Mobility) contact guard;1 person assist -AB Supine-Sit [place] (Bed Mobility) contact guard;1 person assist -AB Sit-Supine [place] (Bed Mobility) contact guard;1 person assist -AB Assistive Device (Bed Mobility) head of bed elevated -AB Comment, (Bed Mobility) increased time/effort. -AB Row Name 10/31/24 1505 Transfers Comment, (Transfers) Cues for hand placement and sequencing. -AB Row Name 10/31/24 1505 Sit-Stand Transfer Sit-Stand [place] (Transfers) contact guard;verbal cues;1 person assist -AB Assistive Device (Sit-Stand Transfers) walker, front-wheeled -AB Row Name 10/31/24 1505 Gait/Stairs (Locomotion) [place] Level (Gait) contact guard;1 person assist;verbal cues -AB Assistive Device (Gait) walker, front-wheeled -AB Patient was able to Ambulate yes -AB Distance in Feet (Gait) 40 -AB Deviations/Abnormal Patterns (Gait) bilateral deviations;vikram decreased;gait speed decreased;festinating/shuffling;stride length decreased -AB Bilateral Gait Deviations forward flexed posture;heel strike decreased -AB Comment, (Gait/Stairs) Pt ambulated to and from bathroom with short/shuffling steps and forward flexed posture. Cues provided for safe management of RW. Minimal improvements with cues. Pt deferred further activity. -AB User Carmona (r) = Recorded By, (t) = Taken By, (c) = Cosigned By Initials Name Provider Type Razia Molina, PT Physical Therapist Obj/Interventions Row Name 10/31/24 151 Balance Balance Assessment sitting dynamic balance;sitting static balance;standing static balance;standing dynamic balance -AB Static Sitting Balance standby assist -AB Dynamic Sitting Balance standby assist -AB Position, Sitting Balance unsupported;sitting edge of bed -AB Static Standing Balance contact guard -AB Dynamic Standing Balance contact guard;1-person assist;verbal cues -AB Position/Device Used, Standing Balance supported;walker, front-wheeled -AB Balance Interventions sitting;standing;sit to stand;supported;dynamic;static;occupation based/functional task -AB Comment, Balance No overt LOB. -AB User Carmona (r) = Recorded By, (t) = Taken By, (c) = Cosigned By Initials Name Provider Type AB Razia Jurado, PT Physical Therapist Goals/Plan No documentation. Clinical Impression Row Name 10/31/24 151 Pain Pretreatment Pain Rating 0/10 - no pain -AB Posttreatment Pain Rating 0/10 - no pain -AB Row Name 10/31/24 151 Plan of Care Review Plan of Care Reviewed With patient -AB Progress improving -AB Outcome Evaluation Pt continues to present below his functional baseline with generalized weakness,impaired balance, and cognitive deficits. He ambulated 40' with CGA and RW. Further IPPT is warrented. PT will progress as able per POC. -AB Row Name 10/31/24 1512 Vital Signs Pre Systolic BP Rehab 133 -AB Pre Treatment Diastolic BP 94 -AB O2 Delivery Pre Treatment room air -AB O2 Delivery Intra Treatment room air -AB O2 Delivery Post Treatment room air -AB Pre Patient Position Supine -AB Intra Patient Position Standing -AB Post Patient Position Supine -AB Row Name 10/31/24 1512 Positioning and Restraints Pre-Treatment Position in bed -AB Post Treatment Position bed -AB In Bed notified nsg;supine;call light within reach;encouraged to call for assist;exit alarm on -AB User Carmona (r) = Recorded By, (t) = Taken By, (c) = Cosigned By Initials Name Provider Type AB Razia Jurado, PT Physical Therapist Outcome Measures Row Name 10/31/24 1515 How much help from another person do you currently need... Turning from your back to your side while in flat bed without using bedrails? 3 -AB Moving from lying on back to sitting on the side of a flat bed without bedrails? 3 -AB Moving to and from a bed to a chair (including a wheelchair)? 3 -AB Standing up from a chair using your arms (e.g., wheelchair, bedside chair)? 3 -AB Climbing 3-5 steps with a railing? 2 -AB To walk in hospital room? 3 -AB AM-PAC 6 Clicks Score (PT) 17 -AB Highest Level of Mobility Goal Stand (1 or More Minutes)-5 -AB Row Name 10/31/24 1515 Functional Assessment Outcome Measure Options AM-PAC 6 Clicks Basic Mobility (PT) -AB User Carmona (r) = Recorded By, (t) = Taken By, (c) = Cosigned By Initials Name Provider Type AB Razia Jurado PT Physical Therapist Physical Therapy Education Title: PT OT OYSTER TONGER Therapies (In Progress) Topic: Physical Therapy (In Progress) Point: Mobility training (Done) Learning Progress Summary Patient Acceptance, E,D, VU,NR by AB at 10/31/2024 1515 Acceptance, E, NR by KR at 10/30/2024 1123 Nonacceptance, E, NR by ST at 10/29/2024 1448 Acceptance, E, VU,NR by MAI at 10/28/2024 1536 Point: Home exercise program (In Progress) Learning Progress Summary Patient Nonacceptance, E, NR by ST at 10/29/2024 1448 Point: Body mechanics (Done) Learning Progress Summary Patient Acceptance, E,D, VU,NR by AB at 10/31/2024 1515 Acceptance, E, NR by KR at 10/30/2024 1123 Nonacceptance, E, NR by ST at 10/29/2024 1448 Acceptance, E, VU,NR by MAI at 10/28/2024 1536 Point: Precautions (Done) Learning Progress Summary Patient Acceptance, E,D, VU,NR by AB at 10/31/2024 1515 Acceptance, E, NR by KR at 10/30/2024 1123 Nonacceptance, E, NR by ST at 10/29/2024 1448 Acceptance, E, VU,NR by MAI at 10/28/2024 1536 User Carmona Initials Effective Dates Name Provider Type Discipline MAI 10/01/20 - Jennifer Hendrickson, PT Physical Therapist PT AB 01/07/22 - Razia Jurado, PT Physical Therapist PT KR 04/16/22 - Yvonne Felder, PT Physical Therapist PT ST 01/20/24 - Edil Franklin, PT Student PT Student PT PT Recommendation and Plan Progress: improving Outcome Evaluation: Pt continues to present below his functional baseline with generalized weakness, impaired balance, and cognitive deficits. He ambulated 40' with CGA and RW. Further IPPT is warrented. PT will progress as able per POC. Time Calculation: PT Charges Row Name 10/31/24 1516 Time Calculation Start Time 1337 -AB PT Received On 10/31/24 -AB Timed Charges 81591 - Gait Training Minutes 10 -AB 95972 - PT Therapeutic Activity Minutes 13 -AB Total Minutes Timed Charges Total Minutes 23 -AB Total Minutes 23 -AB User Carmona (r) = Recorded By, (t) = Taken By, (c) = Cosigned By Initials Name Provider Type AB Razia Jurado, PT Physical Therapist Therapy Charges for Today Code Description Service Date Service Provider Modifiers Qty [id number] HC GAIT TRAINING EA 15 MIN 10/31/2024 Razia Jurado, PT GP 1 [id number] HC PT THERAPEUTIC ACT EA 15 MIN 10/31/2024 Razia Jurado, PT GP 1 PT G-Codes Outcome Measure Options: AM-PAC 6 Clicks Basic Mobility (PT) AM-PAC 6 Clicks Score (PT): 17 AM-PAC 6 Clicks Score (OT): 17 Modified [place] Scale: 3 - Moderate disability. Requiring some help, but able to walk without assistance. PT Discharge Summary Anticipated Discharge Disposition (PT): senior living facility Razia Jurado PT 10/31/2024 * Therapy Treatment Note - Sissy Lopez MS CCC-OYSTER TONGER - 10/30/2024 4:06 PM EDT Images from the original note were not included. Acute Care - Speech Language Pathology Swallow Treatment Note [facility] Patient Name: Jessica Burnham : 1935 Today's Date: 10/30/2024 Admit Date: 10/26/2024 Visit Dx: ICD-10-CM ICD-9-CM 1. Esophageal dysphagia R13.19 787.29 2. Dysphagia, unspecified type R13.10 787.20 3. Cognitive communication deficit R41.841 799.52 Patient Active Problem List Diagnosis Stroke-like symptoms Essential hypertension Mixed hyperlipidemia Dementia A-fib CHF (congestive heart failure) BPH (benign prostatic hyperplasia) Past Medical History: Diagnosis Date BPH (benign prostatic hyperplasia) 10/29/2024 Hypertension Past Surgical History: Procedure Laterality Date ENDOSCOPY N/A 10/29/2024 Procedure: ESOPHAGOGASTRODUODENOSCOPY; Surgeon: Mian Garcia MD; Location: [facility] END[facility]; Service: Gastroenterology; Laterality: N/A; OYSTER TONGER Recommendation and Plan OYSTER TONGER Swallowing Diagnosis: functional oral phase, R/O pharyngeal dysphagia, suspected esophageal dysphagia (10/30/241429) OYSTER TONGER Diet Recommendation: soft to chew textures, chopped, thin liquids (10/30/241429) Recommended Precautions and Strategies: upright posture during/after eating, small bites of food and sips of liquid, reflux precautions (10/30/241429) OYSTER TONGER Rec. for Method of Medication Administration: meds whole, meds crushed, with puree, as tolerated (10/30/241429) Monitor for Signs of Aspiration: notify OYSTER TONGER if any concerns (10/30/241429) Recommended Diagnostics: other (see comments) (diet tolerance) (10/30/241429) Swallow Criteria for Skilled Therapeutic Interventions Met: demonstrates skilled criteria () Anticipated Discharge Disposition (OYSTER TONGER): senior living facility (10/30/241429) Rehab Potential/Prognosis, Swallowing: good, to achieve stated therapy goals (10/30/241429) Therapy Frequency (Swallow): PRN, 5 days per week (10/30/241429) Predicted Duration Therapy Intervention (Days): 1 week (10/30/241429) Oral Care Recommendations: Oral Care BID/PRN, Toothbrush (10/30/241429) Daily Summary of Progress (OYSTER TONGER): progress toward functional goals as expected (10/30/241429) Treatment Assessment (OYSTER TONGER): continued, mild, cognitive-linguistic disorder (10/30/241429) Treatment Assessment Comments (OYSTER TONGER): Patient tolerated trials of soft solids w/o discomfort or s/s of aspiration. EGD completed on 10/29/24 with dilation completed. Diet upgraded this date to soft chopped and thin liquids. Patient continues with mild cognitive linguistic impairment. (10/30/24 143) Plan for Continued Treatment (OYSTER TONGER): continue treatment per plan of care (10/30/24 143) SWALLOW EVALUATION (Last 72 Hours) OYSTER TONGER Adult Swallow Evaluation Row Name 10/30/24 143 OYSTER TONGER Evaluation Clinical Impression OYSTER TONGER Swallowing Diagnosis functional oral phase;R/O pharyngeal dysphagia;suspected esophageal dysphagia - Functional Impact risk of aspiration/pneumonia;risk of malnutrition - Rehab Potential/Prognosis, Swallowing good, to achieve stated therapy goals - Swallow Criteria for Skilled Therapeutic Interventions Met demonstrates skilled criteria - OYSTER TONGER Treatment Clinical Impressions Treatment Assessment Comments (OYSTER TONGER) Patient tolerated trials of soft solids w/o discomfort or s/s of aspiration. EGD completed on 10/29/24 with dilation completed. Diet upgraded this date to soft chopped and thin liquids. Patient continues with mild cognitive linguistic impairment. - Recommendations Therapy Frequency (Swallow) PRN;5 days per week - OYSTER TONGER Diet Recommendation soft to chew textures;chopped;thin liquids - Recommended Diagnostics other (see comments) diet tolerance - Recommended Precautions and Strategies upright posture during/after eating;small bites of food and sips of liquid;reflux precautions - Oral Care Recommendations Oral Care BID/PRN;Toothbrush - OYSTER TONGER Rec. for Method of Medication Administration meds whole;meds crushed;with puree;as tolerated - Monitor for Signs of Aspiration notify OYSTER TONGER if any concerns - User Carmona (r) = Recorded By, (t) = Taken By, (c) = Cosigned By Initials Name Effective Dates Sissy Lopez MS [facility] 05/07/24 - EDUCATION The patient has been educated in the following areas: Dysphagia (Swallowing Impairment) Oral Care/Hydration Modified Diet Instruction. OYSTER TONGER GOALS Row Name 10/30/241429 (LTG) Patient will demonstrate functional swallow for Diet Texture (Demonstrate functional swallow) soft to chew (chopped) textures -CH Liquid viscosity (Demonstrate functional swallow) thin liquids - [place] (Demonstrate functional swallow) with minimal cues (75-90% accuracy) -CH Time Frame (Demonstrate functional swallow) 1 week -CH Progress/Outcomes (Demonstrate functional swallow) good progress toward goal -CH Comment (Demonstrate functional swallow) Patient tolerated soft solid and thin liquid trials w/o s/s of aspiration -CH (STG) Patient will tolerate trials of Consistencies Trialed (Tolerate trials) thin liquids;soft to chew (chopped) textures -CH Desired Outcome (Tolerate trials) without signs/symptoms of aspiration;with adequate oral prep/transit/clearance - [place] (Tolerate trials) with minimal cues (75-90% accuracy) -CH Time Frame (Tolerate trials) 1 week -CH Progress/Outcomes (Tolerate trials) goal met;goal revised this date -CH Comment (Tolerate trials) goal met for pureed, diet upgraded to soft chopped and thin liquids. - Patient will demonstrate functional cognitive-linguistic skills for return to discharge environment [place] with minimal cues -CH Time frame 1 week -CH Progress/Outcomes continuing progress toward goal -CH OYSTER TONGER Diagnostic Treatment Patient will participate in further assessment in the following areas clarification of baseline cognitive communication status -CH Time Frame (Diagnostic) 1 week -CH Progress/Outcomes (Additional Goal 1, OYSTER TONGER) continuing progress toward goal - Word Retrieval Skills Goal 1 (OYSTER TONGER) Improve Word Retrieval Skills By Goal 1 (OYSTER TONGER) high frequency;responsive naming task;completing a divergent task;80%;with minimal cues (75-90%) -CH Time Frame (Word Retrieval Goal 1, OYSTER TONGER) 1 week -CH Progress (Word Retrieval Skills Goal 1, OYSTER TONGER) 80%;with minimal cues (75-90%) -CH Progress/Outcomes (Word Retrieval Goal 1, OYSTER TONGER) continuing progress toward goal -CH Orientation Goal 1 (OYSTER TONGER) Improve Orientation Through Goal 1 (OYSTER TONGER) demonstrating orientation to day;demonstrating orientationto month;demonstrating orientation to year;demonstrating orientation to place;demonstrating orientation to disease/impairment;use environmental aids to assist with orientation;80%;with minimal cues (75-90%) -CH Time Frame (Orientation Goal 1, OYSTER TONGER) 1 week -CH Progress (Orientation Goal 1, OYSTER TONGER) 50%;with minimal cues (75-90%) -CH Progress/Outcomes (Orientation Goal 1, OYSTER TONGER) continuing progress toward goal -CH Comment (Orientation Goal 1, OYSTER TONGER) Oriented to self and grossly to place, not to time or situation -CH Memory Skills Goal 1 (OYSTER TONGER) Improve Memory Skills Through Goal 1 (OYSTER TONGER) recalling related word lists immediately;recall details of the day;90%;with minimal cues (75-90%) -CH Time Frame (Memory Skills Goal 1, OYSTER TONGER) 1 week -CH Progress (Memory Skills Goal 1, OYSTER TONGER) 40%;with minimal cues (75-90%) -CH Progress/Outcomes (Memory Skills Goal 1, OYSTER TONGER) continuing progress toward goal -CH User Carmona (r) = Recorded By, (t) = Taken By, (c) = Cosigned By Initials Name Provider Type Sissy Saldana MS CCC-OYSTER TONGER Speech and Language Pathologist Time Calculation: Time Calculation- OYSTER TONGER Row Name 10/30/24 1601 Time Calculation- OYSTER TONGER OYSTER TONGER Start Time 1430 - OYSTER TONGER Received On 10/30/24 - Untimed Charges 98967-WR Treatment/ST Modification Prosth Nov 39 -CH 08428-SJ Treatment Swallow Minutes 45 -CH Total Minutes Untimed Charges Total Minutes 84 -CH Total Minutes 84 -CH User Carmona (r) = Recorded By, (t) = Taken By, (c) = Cosigned By Initials Name Provider Type Sissy Saldana MS CCC-OYSTER TONGER Speech and Language Pathologist Therapy Charges for Today Code Description Service Date Service Provider Modifiers Qty [id number] HC ST TREATMENT SWALLOW 3 10/30/2024 Sissy Lopez MS CCC-OYSTER TONGER GN [id number] TREATMENT SPEECH 3 10/30/2024 Sissy Lopez MS CCC-OYSTER TONGER GN 1 Sissy Lopez MS CCC-BARBER 10/30/2024 and Acute Care - Speech Language Pathology Treatment Note [place] Patient Name: Jessica Burnham : 1935 Today's Date: 10/30/2024 Admit Date: 10/26/2024 Visit Dx: ICD-10-CM ICD-9-CM 1. Esophageal dysphagia R13.19 787.29 2. Dysphagia, unspecified type R13.10 787.20 3. Cognitive communication deficit R41.841 799.52 Patient Active Problem List Diagnosis Stroke-like symptoms Essential hypertension Mixed hyperlipidemia Dementia A-fib CHF (congestive heart failure) BPH (benign prostatic hyperplasia) Past Medical History: Diagnosis Date BPH (benign prostatic hyperplasia) 10/29/2024 Hypertension Past Surgical History: Procedure Laterality Date ENDOSCOPY N/A 10/29/2024 Procedure: ESOPHAGOGASTRODUODENOSCOPY; Surgeon: Mian Garcia MD; Location: [facility] END[facility]; Service: Gastroenterology; Laterality: N/A; OYSTER TONGER Recommendation and Plan OYSTER TONGER Diagnosis: mild, cognitive-linguistic disorder (10/30/241429) Monitor for Signs of Aspiration: notify OYSTER TONGER if any concerns (10/30/241429) Swallow Criteria for Skilled Therapeutic Interventions Met: demonstrates skilled criteria () SLC Criteria for Skilled Therapy Interventions Met: yes (10/30/241429) Anticipated Discharge Disposition (OYSTER TONGER): senior living facility (10/30/241429) Therapy Frequency (Swallow): PRN, 5 days per week (10/30/241429) Therapy Frequency (OYSTER TONGER SLC): 5 days per week (10/30/241429) Predicted Duration Therapy Intervention (Days): 1 week (10/30/241429) Oral Care Recommendations: Oral Care BID/PRN, Toothbrush (10/30/241429) Daily Summary of Progress (OYSTER TONGER): progress toward functional goals as expected (10/30/241429) Treatment Assessment (OYSTER TONGER): continued, mild, cognitive-linguistic disorder (10/30/241429) Treatment Assessment Comments (OYSTER TONGER): Patient tolerated trials of soft solids w/o discomfort or s/s of aspiration. EGD completed on 10/29/24 with dilation completed. Diet upgraded this date to soft chopped and thin liquids. Patient continues with mild cognitive linguistic impairment. (10/30/241429) Plan for Continued Treatment (OYSTER TONGER): continue treatment per plan of care (10/30/241429) OYSTER TONGER EVALUATION (Last 72 Hours) OYSTER TONGER SLC Evaluation Row Name 10/30/241429 Communication Assessment/Intervention Document Type therapy note (daily note) -CH Subjective Information no complaints -CH Patient Observations alert;cooperative;agree to therapy -CH Patient/Family/Caregiver Comments/Observations none present -CH Patient Effort adequate -CH Symptoms Noted During/After Treatment none -CH Oral Care patient refused intervention -CH General Information Patient Profile Reviewed yes -CH Pain Pretreatment Pain Rating 0/10 - no pain -CH Posttreatment Pain Rating 0/10 - no pain -CH OYSTER TONGER Evaluation Clinical Impressions OYSTER TONGER Diagnosis mild;cognitive-linguistic disorder -CH Rehab Potential/Prognosis good -CH SLC Criteria for Skilled Therapy Interventions Met yes -CH OYSTER TONGER Treatment Clinical Impressions Treatment Assessment (OYSTER TONGER) continued;mild;cognitive-linguistic disorder - Daily Summary of Progress (OYSTER TONGER) progress toward functional goals as expected -CH Plan for Continued Treatment (OYSTER TONGER) continue treatment per plan of care -CH Care Plan Review evaluation/treatment results reviewed;care plan/treatment goals reviewed -CH Recommendations Therapy Frequency (OYSTER TONGER SLC) 5 days per week -CH Predicted Duration Therapy Intervention (Days) 1 week -CH Anticipated Discharge Disposition ([facility]) senior living facility - User Carmona (r) = Recorded By, (t) = Taken By, (c) = Cosigned By Initials Name Effective Dates Sissy Lopez MS [facility] 05/07/24 - EDUCATION The patient has been educated in the following areas: Cognitive Impairment Communication Impairment. [facility] GOALS Row Name 10/30/24 1430 (LTG) Patient will demonstrate functional swallow for Diet Texture (Demonstrate functional swallow) soft to chew (chopped) textures - Liquid viscosity (Demonstrate functional swallow) thin liquids - [place] (Demonstrate functional swallow) with minimal cues (75-90% accuracy) - Time Frame (Demonstrate functional swallow) 1 week -CH Progress/Outcomes (Demonstrate functional swallow) good progress toward goal - Comment (Demonstrate functional swallow) Patient tolerated soft solid and thin liquid trials w/o s/s of aspiration - (STG) Patient will tolerate trials of Consistencies Trialed (Tolerate trials) thin liquids;soft to chew (chopped) textures - Desired Outcome (Tolerate trials) without signs/symptoms of aspiration;with adequate oral prep/transit/clearance - [place]val (Tolerate trials) with minimal cues (75-90% accuracy) - Time Frame (Tolerate trials) 1 week -CH Progress/Outcomes (Tolerate trials) goal met;goal revised this date - Comment (Tolerate trials) goal met for pureed, diet upgraded to soft chopped and thin liquids. - Patient will demonstrate functional cognitive-linguistic skills for return to discharge environment Duval with minimal cues - Time frame 1 week -CH Progress/Outcomes continuing progress toward goal -CH [facility] Diagnostic Treatment Patient will participate in further assessment in the following areas clarification of baseline cognitive communication status - Time Frame (Diagnostic) 1 week -CH Progress/Outcomes (Additional Goal 1, [facility]) continuing progress toward goal - Word Retrieval Skills Goal 1 ([facility]) Improve Word Retrieval Skills By Goal 1 ([facility]) high frequency;responsive naming task;completing a divergent task;80%;with minimal cues (75-90%) -CH Time Frame (Word Retrieval Goal 1, [facility]) 1 week -CH Progress (Word Retrieval Skills Goal 1, [facility]) 80%;with minimal cues (75-90%) -CH Progress/Outcomes (Word Retrieval Goal 1, [facility]) continuing progress toward goal -CH Orientation Goal 1 ([facility]) Improve Orientation Through Goal 1 ([facility]) demonstrating orientation to day;demonstrating orientationto month;demonstrating orientation to year;demonstrating orientation to place;demonstrating orientation to disease/impairment;use environmental aids to assist with orientation;80%;with minimal cues (75-90%) -CH Time Frame (Orientation Goal 1, [facility]) 1 week -CH Progress (Orientation Goal 1, [facility]) 50%;with minimal cues (75-90%) -CH Progress/Outcomes (Orientation Goal 1, [facility]) continuing progress toward goal -CH Comment (Orientation Goal 1, [facility]) Oriented to self and grossly to place, not to time or situation -CH Memory Skills Goal 1 ([facility]) Improve Memory Skills Through Goal 1 ([facility]) recalling related word lists immediately;recall details of the day;90%;with minimal cues (75-90%) -CH Time Frame (Memory Skills Goal 1, [facility]) 1 week -CH Progress (Memory Skills Goal 1, [facility]) 40%;with minimal cues (75-90%) -CH Progress/Outcomes (Memory Skills Goal 1, [facility]) continuing progress toward goal -CH User Carmona (r) = Recorded By, (t) = Taken By, (c) = Cosigned By Initials Name Provider Type Sissy Saldana MS [facility] Speech and Language Pathologist Time Calculation: Time Calculation- [facility] Row Name 10/30/24 1601 Time Calculation- [facility] Start Time 1430 -CH [facility] Received On 10/30/24 - Untimed Charges 73919-PS Treatment/ST Modification Prosth Aug Alter 39 -CH [id number]-QO Treatment Swallow Minutes 45 -CH Total Minutes Untimed Charges Total Minutes 84 -CH Total Minutes 84 -CH User Carmona (r) = Recorded By, (t) = Taken By, (c) = Cosigned By Initials Name Provider Type Sissy Saldana MS [facility] Speech and Language Pathologist Therapy Charges for Today Code Description Service Date Service Provider Modifiers Qty [id number] HC ST TREATMENT SWALLOW 3 10/30/2024 Roderick Lopeza, CCC-[facility] GN [id number] TREATMENT SPEECH 3 10/30/2024 Jessica Sissy CCC-[facility] GN 1 Sissy Lopez [facility] 10/30/2024 * Case Management/Social Work - Saeed Ramsay RN - 10/30/2024 2:08 PM EDT Continued Stay Note [facility] Patient Name: Jessica Burnham Today's Date: 10/30/2024 Admit Date: 10/26/2024 Plan: SNF Discharge Plan Row Name 10/30/24 1400 Plan Plan SNF Patient/Family in Agreement with Plan yes Plan Comments I spoke w/Brianna Yip @ [facility], received fax from [facility] on Tuesday. Her contact number is [phone], fax [phone]. She stated that she needs more information about Mr. Burnham from daughter, Saranya. I called Saranya, who lives in [place], [place], she did not know about [facility] or where [facility] was located, I did give her Brianna's information to call. Per Saranya, she prefers her dad to go to a [place] facility for STR, and would like her dad to be able to doSTR , then back to his apt w/caregivers, but then asked if [facility] would keep him? I informedthat I would leave a facility list [facility] for her to review.She plans to be here on , she is also assisting w/her mother. When I leave list, I will speak w/Mr. Burnham too. DC plan is SNF, will need transportation to SNF. Took list to Mr. Burnham, he stated that he did not want to go to [facility], or no where out of town. Speech pathologist was present in room as well, I asked him about SNF in [place], he stated, I don't want to be in that mess either. Will have unit CM f/u on Tuesday. Final Discharge Disposition Code 03 - senior living facility (SNF) Discharge Codes No documentation. Expected Discharge Date and Time Expected Discharge Date Expected Discharge Time Oct 31, 2024 Saeed Ramsay, RN * Therapy Treatment Note - Yvonne Felder, PT - 10/30/2024 11:14 AM EDT Images from the original note were not included. Patient Name: Jessica Burnham : 1935 Today's Date: 10/30/2024 Admit Date: 10/26/2024 Visit Dx: ICD-10-CM ICD-9-CM 1. Esophageal dysphagia R13.19 787.29 Patient Active Problem List Diagnosis Stroke-like symptoms Essential hypertension Mixed hyperlipidemia Dementia A-fib CHF (congestive heart failure) BPH (benign prostatic hyperplasia) Past Medical History: Diagnosis Date BPH (benign prostatic hyperplasia) 10/29/2024 Hypertension Past Surgical History: Procedure Laterality Date ENDOSCOPY N/A 10/29/2024 Procedure: ESOPHAGOGASTRODUODENOSCOPY; Surgeon: Mian Garcia MD; Location: [facility]; Service: Gastroenterology; Laterality: N/A; General Information Row Name 10/30/24 1122 Physical Therapy Time and Intention Document Type therapy note (daily note) -KR Mode of Treatment individual therapy;physical therapy -KR Row Name 10/30/24 1122 General Information Patient Profile Reviewed yes -KR Existing Precautions/Restrictions fall;other (see comments) dementia -KR Barriers to Rehab previous functional deficit;cognitive status -KR Row Name 10/30/24 1122 Cognition Orientation Status (Cognition) oriented x 3 -KR Row Name 10/30/24 1122 Safety Issues/Impairments Affecting Functional Mobility Safety Issues Affecting Function (Mobility) awareness of need for assistance;insight into deficits/self-awareness;problem-solving;safety precaution awareness;safety precautions follow-through/compliance;sequencing abilities;judgment -KR Impairments Affecting Function (Mobility) balance;cognition;endurance/activity tolerance;postural/trunk control;strength -KR Cognitive Impairments, Mobility Safety/Performance awareness, need for assistance;insight into defic its/self-awareness;judgment;problem-solving/reasoning;sequencing abilities;safety precaution follow-through;safety precaution awareness -KR User Carmona (r) = Recorded By, (t) = Taken By, (c) = Cosigned By Initials Name Provider Type Yvonne Martin PT Physical Therapist Mobility Row Name 10/30/24 1130 Sit-Stand Transfer Sit-Stand [place] (Transfers) contact guard;verbal cues -KR Assistive Device (Sit-Stand Transfers) walker, front-wheeled -KR Comment, (Sit-Stand Transfer) 2x from chair with FWW, 5x STS from chair unsupported. -KR Row Name 10/30/24 1130 Gait/Stairs (Locomotion) Duval Level (Gait) contact guard -KR Assistive Device (Gait) walker, front-wheeled -KR Distance in Feet (Gait) 2 -KR Deviations/Abnormal Patterns (Gait) bilateral deviations -KR Left Sided Gait Deviations forward flexed posture -KR Comment, (Gait/Stairs) pt took ~4 steps forward/backward with refusal to ambulate farther distance despite encouragement and education on benefits of upright mobility. -KR User Carmona (r) = Recorded By, (t) = Taken By, (c) = Cosigned By Initials Name Provider Type Yvonne Martin PT Physical Therapist Obj/Interventions Row Name 10/30/24 1132 Motor Skills Therapeutic Exercise hip;knee;ankle -KR Row Name 10/30/24 1132 Hip (Therapeutic Exercise) Hip (Therapeutic Exercise) strengthening exercise;isometric exercises -KR Hip Isometrics (Therapeutic Exercise) 10 repetitions;bilateral;gluteal sets;sitting;aDduction;3 second hold -KR Hip Strengthening (Therapeutic Exercise) 10 repetitions;bilateral;marching while standing;aBduction;standing;other (see comments) 5x sitting manually resisted hip abduction -KR Row Name 10/30/24 1132 Knee (Therapeutic Exercise) Knee (Therapeutic Exercise) strengthening exercise -KR Knee Strengthening (Therapeutic Exercise) 10 repetitions;SLR (straight leg raise);LAQ (long arc quad);bilateral -KR Row Name 10/30/24 1132 Ankle (Therapeutic Exercise) Ankle (Therapeutic Exercise) strengthening exercise -KR Ankle Strengthening (Therapeutic Exercise) 10 repetitions;bilateral;standing;plantarflexion;other (see comments) R knee buckling with standing PF -KR Row Name 10/30/24 1132 Balance Balance Assessment sitting static balance;sitting dynamic balance;standing static balance;standing dynamic balance -KR Static Sitting Balance standby assist -KR Dynamic Sitting Balance standby assist -KR Position, Sitting Balance unsupported;sitting in chair -KR Static Standing Balance contact guard -KR Dynamic Standing Balance contact guard -KR Position/Device Used, Standing Balance supported;walker, front-wheeled -KR Balance Interventions sitting;standing;sit to stand;supported;static;dynamic -KR User Carmona (r) = Recorded By, (t) = Taken By, (c) = Cosigned By Initials Name Provider Type Yvonne Martin, PT Physical Therapist Goals/Plan No documentation. Clinical Impression Row Name 10/30/24 1134 Pain Pretreatment Pain Rating 0/10 - no pain -KR Posttreatment Pain Rating 0/10 - no pain -KR Row Name 10/30/24 1134 Plan of Care Review Plan of Care Reviewed With patient -KR Progress no change -KR Outcome Evaluation Pt with good participation in LE therapeutic exercises and able to perform STS with CGA. Pt able to take 4 steps forward/backward with FWW, however pt refused further ambulation despite education and encouragement. Pt will benefit from PT to address ongoing strength, balance, andendurance deficits. -KR Row Name 10/30/24 1134 Vital Signs Pre Systolic BP Rehab 101 -KR Pre Treatment Diastolic BP 77 -KR Post Systolic BP Rehab 112 -KR Post Treatment Diastolic BP 70 -KR Posttreatment Heart Rate (beats/min) 79 -KR Post SpO2 (%) 96 -KR O2 Delivery Post Treatment room air -KR Pre Patient Position Sitting -KR Post Patient Position Sitting -KR Row Name 10/30/24 1134 Positioning and Restraints Pre-Treatment Position sitting in chair/recliner -KR Post Treatment Position chair -KR In Chair notified nsg;reclined;call light within reach;encouraged to call for assist;exit alarm on;waffle cushion;legs elevated;heels elevated -KR User Carmona (r) = Recorded By, (t) = Taken By, (c) = Cosigned By Initials Name Provider Type Yvonne Martin, PT Physical Therapist Outcome Measures Row Name 10/30/24 1124 How much help from another person do you currently need... Turning from your back to your side while in flat bed without using bedrails? 3 -KR Moving from lying on back to sitting on the side of a flat bed without bedrails? 3 -KR Moving to and from a bed to a chair (including a wheelchair)? 3 -KR Standing up from a chair using your arms (e.g., wheelchair, bedside chair)? 3 -KR Climbing 3-5 steps with a railing? 2 -KR To walk in hospital room? 3 -KR AM-PAC 6 Clicks Score (PT) 17 -KR Highest Level of Mobility Goal Stand (1 or More Minutes)-5 -KR Row Name 10/30/24 1124 10/30/24 1019 Functional Assessment Outcome Measure Options AM-PAC 6 Clicks Basic Mobility (PT) -KR AM-PAC 6 Clicks Daily Activity (OT)-MR User Carmona (r) = Recorded By, (t) = Taken By, (c) = Cosigned By Initials Name Provider Type MR Jaylin Concepcion, OT Occupational Therapist KR Yvonne Felder, PT Physical Therapist Physical Therapy Education Title: PT OT [facility] Therapies (In Progress) Topic: Physical Therapy (In Progress) Point: Mobility training (In Progress) Learning Progress Summary Patient Acceptance, E, NR by KR at 10/30/2024 1123 Nonacceptance, E, NR by ST at 10/29/2024 1448 Acceptance, E, VU,NR by MAI at 10/28/2024 1536 Point: Home exercise program (In Progress) Learning Progress Summary Patient Nonacceptance, E, NR by ST at 10/29/2024 1448 Point: Body mechanics (In Progress) Learning Progress Summary Patient Acceptance, E, NR by KR at 10/30/2024 1123 Nonacceptance, E, NR by ST at 10/29/2024 1448 Acceptance, E, VU,NR by MAI at 10/28/2024 1536 Point: Precautions (In Progress) Learning Progress Summary Patient Acceptance, E, NR by KR at 10/30/2024 1123 Nonacceptance, E, NR by ST at 10/29/2024 1448 Acceptance, E, VU,NR by MAI at 10/28/2024 1536 User Carmona Initials Effective Dates Name Provider Type Discipline MAI 10/01/20 - Jennifer Hendrickson, PT Physical Therapist PT EUGENIO 04/16/22 - Yvonne Felder, PT Physical Therapist PT ST 01/20/24 - Edil Franklin PT Student PT Student PT PT Recommendation and Plan Progress: no change Outcome Evaluation: Pt with good participation in LE therapeutic exercises and able to perform STS with CGA. Pt able to take 4 steps forward/backward with FWW, however pt refused further ambulation despite education and encouragement. Pt will benefit from PT to address ongoing strength, balance, and endurance deficits. Time Calculation: PT Charges Row Name 10/30/24 1142 Time Calculation Start Time 1114 -KR PT Received On 10/30/24 -KR Timed Charges 73726 - PT Therapeutic Exercise Minutes 18 -KR [id number] - PT Therapeutic Activity Minutes 5 -KR Total Minutes Timed Charges Total Minutes 23 -KR Total Minutes 23 -KR User Carmona (r) = Recorded By, (t) = Taken By, (c) = Cosigned By Initials Name Provider Type Yvonne Martin, PT Physical Therapist Therapy Charges for Today Code Description Service Date Service Provider Modifiers Qty 54087802170 HC PT THER PROC EA 15 MIN 10/30/2024 Yvonne Felder, PT GP 1 [id number] HC PT THERAPEUTIC ACT EA 15 MIN 10/30/2024 Yvonne Felder, PT GP 1 PT G-Codes Outcome Measure Options: AM-PAC 6 Clicks Basic Mobility (PT) AM-PAC 6 Clicks Score (PT): 17 AM-PAC 6 Clicks Score (OT): 17 Modified [place] Scale: 3 - Moderate disability. Requiring some help, but able to walk without assistance. PT Discharge Summary Anticipated Discharge Disposition (PT): senior living facility Yvonne Felder PT 10/30/2024 * Therapy Treatment Note - Jaylin Concepcion, OT - 10/30/2024 9:46 AM EDT Images from the original note were not included. Patient Name: Jessica Burnham : 1935 Today's Date: 10/30/2024 Admit Date: 10/26/2024 Visit Dx: ICD-10-CM ICD-9-CM 1. Esophageal dysphagia R13.19 787.29 Patient Active Problem List Diagnosis Stroke-like symptoms Essential hypertension Mixed hyperlipidemia Dementia A-fib CHF (congestive heart failure) BPH (benign prostatic hyperplasia) Past Medical History: Diagnosis Date BPH (benign prostatic hyperplasia) 10/29/2024 Hypertension Past Surgical History: Procedure Laterality Date ENDOSCOPY N/A 10/29/2024 Procedure: ESOPHAGOGASTRODUODENOSCOPY; Surgeon: Mian Garcia MD; Location: [facility]; Service: Gastroenterology; Laterality: N/A; General Information Row Name 10/30/24 1013 OT Time and Intention Document Type therapy note (daily note) -MR Mode of Treatment occupational therapy;individual therapy -MR Row Name 10/30/24 1013 General Information Patient Profile Reviewed yes -MR Existing Precautions/Restrictions fall;other (see comments) dementia -MR Barriers to Rehab previous functional deficit;cognitive status -MR Row Name 10/30/24 101 Cognition Orientation Status (Cognition) oriented x 3 -MR Row Name 10/30/24 1013 Safety Issues/Impairments Affecting Functional Mobility Safety Issues Affecting Function (Mobility) awareness of need for assistance;impulsivity;insight into deficits/self-awareness;judgment;positioning of assistive device;safety precaution awareness;safety precautions follow- through/compliance -MR Impairments Affecting Function (Mobility) balance;cognition;endurance/activity tolerance;postural/trunk control;strength -MR User Carmona (r) = Recorded By, (t) = Taken By, (c) = Cosigned By Initials Name Provider Type Jaylin Bobby, OT Occupational Therapist Mobility/ADL's Row Name 10/30/24 1014 Bed Mobility Comment, (Bed Mobility) Pt received sitting EOB w/ PCT upon OT arrival. -MR Row Name 10/30/24 1014 Transfers Transfers toilet transfer;sit-stand transfer -MR Comment, (Transfers) Pt completed STS from BSC to upright at . Verbal cues for hand placement andsequencing. -MR Row Name 10/30/24 1014 Sit-Stand Transfer Sit-Stand [place] (Transfers) contact guard;verbal cues -MR Assistive Device (Sit-Stand Transfers) walker, front-wheeled -MR Row Name 10/30/24 1014 Toilet Transfer Type (Toilet Transfer) stand pivot/stand step -MR [place] Level (Toilet Transfer) minimum assist (75% patient effort);verbal cues;nonverbal cues(demo/gesture) -MR Assistive Device (Toilet Transfer) walker, front-wheeled;commode, bedside without drop arms -MR Row Name 10/30/24 1014 Functional Mobility Functional Mobility- Ind. Level contact guard assist;verbal cues required;nonverbal cues required (demo/gesture) -MR Functional Mobility- Device walker, front-wheeled -MR Functional Mobility-Distance (Feet) -- HH distances w/in pt's room -MR Row Name 10/30/24 1014 Activities of Daily Living BADL Assessment/Intervention grooming;toileting;upper body dressing;bathing -MR Row Name 10/30/24 1014 Upper Body Dressing Assessment/Training [place] Level (Upper Body Dressing) don;contact guard assist;other (see comments) adjusting hospital gown -MR Position (Upper Body Dressing) supported sitting -MR Row Name 10/30/24 1014 Grooming Assessment/Training [place] Level (Grooming) wash face, hands;contact guard assist -MR Position (Grooming) sink side -MR Row Name 10/30/24 1014 Toileting Assessment/Training [place] Level (Toileting) adjust/manage clothing;contact guard assist;perform perineal hygiene;set up -MR Assistive Devices (Toileting) commode, bedside without drop arms -MR Position (Toileting) unsupported sitting;supported standing -MR Row Name 10/30/24 1014 Bathing Assessment/Intervention [place] Level (Bathing) perineal area;other (see comments);contact guard assist buttock -MR Position (Bathing) sink side -MR User Carmona (r) = Recorded By, (t) = Taken By, (c) = Cosigned By Initials Name Provider Type Jaylin Concepcion OT Occupational Therapist Obj/Interventions Row Name 10/30/24 1017 Balance Balance Assessment sitting static balance;sitting dynamic balance;standing static balance;standing dynamic balance -MR Static Sitting Balance supervision -MR Dynamic Sitting Balance standby assist -MR Position, Sitting Balance unsupported;sitting in chair;sitting edge of bed -MR Static Standing Balance contact guard -MR Dynamic Standing Balance contact guard -MR Position/Device Used, Standing Balance supported;walker, front-wheeled -MR Balance Interventions sitting;standing;sit to stand;supported;static;dynamic;minimal challenge;occupation based/functional task -MR Comment, Balance No overt LOB noted w/ transfers, mobility or dynamic standing at sink side. -MR User Carmona (r) = Recorded By, (t) = Taken By, (c) = Cosigned By Initials Name Provider Type Jaylin Bobby OT Occupational Therapist Goals/Plan No documentation. Clinical Impression Row Name 10/30/24 1018 Pain Assessment Pretreatment Pain Rating 0/10 - no pain -MR Posttreatment Pain Rating 0/10 - no pain -MR Row Name 10/30/24 1018 Plan of Care Review Plan of Care Reviewed With patient -MR Progress improving -MR Outcome Evaluation Patient demonstrating improvements w/ activity tolerance, transfers and ADLs. Ptable to stand at sink side to complete ADLs w/o LOB. Pt continues to require cueing and assist for mobility leading him to be below his functional baseline. Continue to progress per current POC. -MR Row Name 10/30/24 1018 Therapy Plan Review/Discharge Plan (OT) Anticipated Discharge Disposition (OT) senior living facility -MR Row Name 10/30/24 1018 Vital Signs Pre Systolic BP Rehab 146 -MR Pre Treatment Diastolic BP 98 -MR Post Systolic BP Rehab 144 -MR Post Treatment Diastolic BP 98 -MR Pretreatment Heart Rate (beats/min) 85 -MR Posttreatment Heart Rate (beats/min) 86 -MR Pre SpO2 (%) 97 -MR O2 Delivery Pre Treatment room air -MR O2 Delivery Intra Treatment room air -MR Post SpO2 (%) 97 -MR O2 Delivery Post Treatment room air -MR Pre Patient Position Sitting -MR Intra Patient Position Standing -MR Post Patient Position Sitting -MR Row Name 10/30/24 1018 Positioning and Restraints Pre-Treatment Position in bed -MR Post Treatment Position chair -MR In Chair notified nsg;reclined;sitting;call light within reach;encouraged to call for assist;exit alarm on;waffle cushion;legs elevated -MR User Carmona (r) = Recorded By, (t) = Taken By, (c) = Cosigned By Initials Name Provider Type Jaylin Bobby, OT Occupational Therapist Outcome Measures Row Name 10/30/24 1019 How much help from another is currently needed... Putting on and taking off regular lower body clothing? 2 -MR Bathing (including washing, rinsing, and drying) 2 -MR Toileting (which includes using toilet bed madsen or urinal) 3 -MR Putting on and taking off regular upper body clothing 3 -MR Taking care of personal grooming (such as brushing teeth) 3 -MR Eating meals 4 -MR AM-PAC 6 Clicks Score (OT) 17 -MR Row Name 10/30/24 1019 Functional Assessment Outcome Measure Options AM-PAC 6 Clicks Daily Activity (OT) -MR User Carmona (r) = Recorded By, (t) = Taken By, (c) = Cosigned By Initials Name Provider Type Jaylin Bobby, OT Occupational Therapist Occupational Therapy Education Title: PT OT [facility] Therapies (In Progress) Topic: Occupational Therapy (In Progress) Point: ADL training (Done) Learning Progress Summary Patient Acceptance, E, VU by at 10/30/2024 1019 Acceptance, E,D, VU,NR by at 10/28/2024 1545 Point: Precautions (Done) Learning Progress Summary Patient Acceptance, E, VU by MR at 10/30/2024 1019 Acceptance, E,D, VU,NR by at 10/28/2024 1545 Point: Body mechanics (Done) Learning Progress Summary Patient Acceptance, E, VU by at 10/30/2024 1019 Acceptance, E,D, VU,NR by at 10/28/2024 1545 User Carmona Initials Effective Dates Name Provider Type Discipline 01/07/22 - Jaylin Concepcion, OT Occupational Therapist OT 12/12/23 - Pearl Holt OT Occupational Therapist OT OT Recommendation and Plan Plan of Care Review Plan of Care Reviewed With: patient Progress: improving Outcome Evaluation: Patient demonstrating improvements w/ activity tolerance, transfers and ADLs. Pt able to stand at sink side to complete ADLs w/o LOB. Pt continues to require cueing and assist formobility leading him to be below his functional baseline. Continue to progress per current POC. Time Calculation: Time Calculation- OT Row Name 10/30/24 1020 Time Calculation- OT OT Start Time 945 -MR OT Received On 10/30/24 -MR Timed Charges 61468 - OT Therapeutic Activity Minutes 10 -MR 09271 - OT Self Care/Mgmt Minutes 16 -MR Total Minutes Timed Charges Total Minutes 26 -MR Total Minutes 26 -MR User Carmona (r) = Recorded By, (t) = Taken By, (c) = Cosigned By Initials Name Provider Type Jaylin Bobby ENRIQUE Occupational Therapist Therapy Charges for Today Code Description Service Date Service Provider Modifiers Qty [id number] OT THERAPEUTIC ACT EA 15 MIN 10/30/2024 Jaylin Concepcion OT GO 1 [id number] OT SELF CARE/MGMT/TRAIN EA 15 MIN 10/30/2024 Jaylin Concepcion OT GO 1 Jaylin Concepcion OT 10/30/2024 * Therapy Treatment Note - Edil Franklin, PT Student - 10/29/2024 2:48 PM EDT Images from the original note were not included. Patient Name: Jessica Burnham : 1935 Today's Date: 10/29/2024 Admit Date: 10/26/2024 Visit Dx: ICD-10-CM ICD-9-CM 1. Esophageal dysphagia R13.19 787.29 Patient Active Problem List Diagnosis Stroke-like symptoms Essential hypertension Mixed hyperlipidemia Dementia A-fib CHF (congestive heart failure) BPH (benign prostatic hyperplasia) Past Medical History: Diagnosis Date BPH (benign prostatic hyperplasia) 10/29/2024 Hypertension History reviewed. No pertinent surgical history. General Information Row Name 10/29/24 1516 Physical Therapy Time and Intention Document Type therapy note (daily note) (P) -ST Mode of Treatment individual therapy;physical therapy (P) -ST Row Name 10/29/24 151 General Information Patient Profile Reviewed yes (P) -ST Existing Precautions/Restrictions fall;other (see comments) (P) dementia -ST Row Name 10/29/24 1516 Cognition Orientation Status (Cognition) oriented x 3 (P) -ST Row Name 10/29/24 1516 Safety Issues/Impairments Affecting Functional Mobility Safety Issues Affecting Function (Mobility) awareness of need for assistance;impulsivity;insight into deficits/self-awareness;judgment;positioning of assistive device;safety precaution awareness;safety precautions follow- through/compliance (P) -ST Impairments Affecting Function (Mobility) balance;cognition;endurance/activity tolerance;postural/trunk control;strength (P) -ST Cognitive Impairments, Mobility Safety/Performance awareness, need for assistance;impulsivity;insight into deficits/self-awareness;judgment;safety precaution awareness;safety precaution follow-through;problem-solving/reasoning (P) -ST Comment, Safety Issues/Impairments (Mobility) Pt required max cues for safety for FWW use during transfers and ambulation. Pt was very impulsive thorughout session. (P) -ST User Carmona (r) = Recorded By, (t) = Taken By, (c) = Cosigned By Initials Name Provider Type Rigoberto Fransicozoya Wu, PT Student PT Student Mobility Row Name 10/29/24 1519 Bed Mobility Bed Mobility supine-sit;scooting/bridging (P) -ST Scooting/Bridging [place] (Bed Mobility) verbal cues;standby assist (P) -ST Supine-Sit [place] (Bed Mobility) verbal cues;standby assist (P) -ST Assistive Device (Bed Mobility) head of bed elevated (P) -ST Comment, (Bed Mobility) Pt able to assume upright position withut use of bedrails today. Verbal cues provided to encourage pt to EOB. Pt able to scoot self in chair to assume proper sitting position.(P) -ST Row Name 10/29/24 1519 Transfers Comment, (Transfers) Cues for safety w/ FWW use and hand placement throughout transfers. (P) -ST Row Name 10/29/24 1519 Sit-Stand Transfer Sit-Stand [place] (Transfers) minimum assist (75% patient effort);1 person assist;verbal cues (P) -ST Assistive Device (Sit-Stand Transfers) walker, front-wheeled (P) -ST Comment, (Sit-Stand Transfer) 1x STS from EOB, 5x STS from chair, 1x STS from commode w/ 1x assist and verbal cues to complete safely. (P) -ST Row Name 10/29/24 1519 Gait/Stairs (Locomotion) Du[place] Level (Gait) contact guard (P) -ST Assistive Device (Gait) walker, front-wheeled (P) -ST Patient was able to Ambulate yes (P) -ST Distance in Feet (Gait) 5 (P) 5+5+5 -ST Deviations/Abnormal Patterns (Gait) bilateral deviations (P) -ST Left Sided Gait Deviations forward flexed posture (P) -ST Comment, (Gait/Stairs) Pt demonstrated forward flexed posture and difficulty with safe FWW use during ambulation. Verbal cues to correct posture and address FWW use were met w/ resistance. Pt ambulated from bed to chair and chair to commode with increased time and effort during turns to the L and R. Pt refused futher ambulation. (P) -ST User Carmona (r) = Recorded By, (t) = Taken By, (c) = Cosigned By Initials Name Provider Type Fransico Mukherjeezoya Wu, PT Student PT Student Obj/Interventions [facility] Name 10/29/24 152 Motor Skills Therapeutic Exercise hip (P) -ST [facility] Name 10/29/24 152 Hip (Therapeutic Exercise) Hip (Therapeutic Exercise) strengthening exercise (P) 5 x STS from chair with cues for upright trunk and safe FWW use. -[facility] Name 10/29/24 152 Balance Balance Assessment sitting static balance;sitting dynamic balance;standing static balance;standing dynamic balance (P) -ST Static Sitting Balance supervision (P) -ST Dynamic Sitting Balance standby assist (P) -ST Position, Sitting Balance unsupported;sitting edge of bed (P) -ST Dynamic Standing Balance contact guard (P) -ST Position/Device Used, Standing Balance supported;walker, front-wheeled (P) -ST Balance Interventions sitting;standing;sit to stand;supported;static;dynamic (P) -ST Comment, Balance No LOB/ knee buckling observed today. (P) -ST User Carmona (r) = Recorded By, (t) = Taken By, (c) = Cosigned By Initials Name Provider Type Edil Mukherjee, PT Student PT Student Goals/Plan No documentation. Clinical Impression [facility] Name 10/29/24 152 Pain Pretreatment Pain Rating 0/10 - no pain (P) -ST Posttreatment Pain Rating 0/10 - no pain (P) -ST [facility] 10/29/24 152 Plan of Care Review Plan of Care Reviewed With patient (P) -ST Progress improving (P) -ST Outcome Evaluation Pt demonstrates improved BLE strength and ability to complete bed mobility with less assist into todays session. Pt continues to present with decreased safety awareness, inability to safely position mobility device, and impulsivity when completeing transfers. Ambulation and theraputic exercise limited by pt refusal today. Pt continues to be appropriate for skilled PT services. PT rec to SNF upon D/C. (P) -ST [facility] Name 10/29/24 152 Therapy Assessment/Plan (PT) Criteria for Skilled Interventions Met (PT) yes;skilled treatment is necessary (P) -ST Row Name 10/29/24 1527 Vital Signs Pre Systolic BP Rehab 121 (P) -ST Pre Treatment Diastolic BP 80 (P) -ST Intra Systolic BP Rehab 119 (P) -ST Intra Treatment Diastolic BP 103 (P) -ST Posttreatment Heart Rate (beats/min) 82 (P) -ST Pre Patient Position Supine (P) -ST Post Patient Position Sitting (P) -ST Row Name 10/29/24 1527 Positioning and Restraints Pre-Treatment Position in bed (P) -ST Post Treatment Position chair (P) -ST In Chair notified nsg;reclined;call light within reach;encouraged to call for assist;exit alarm on;legs elevated (P) -ST User Caromna (r) = Recorded By, (t) = Taken By, (c) = Cosigned By Initials Name Provider Type Edil Mukherjee, PT Student PT Student Outcome Measures Row Name 10/29/24 1531 10/29/24 1400 How much help from another person do you currently need... Turning from your back to your side while in flat bed without using bedrails? 3 (P) -ST 3 -BL Moving from lying on back to sitting on the side of a flat bed without bedrails? 3 (P) -ST 3 -BL Moving to and from a bed to a chair (including a wheelchair)? 3 (P) -ST 3 -BL Standing up from a chair using your arms (e.g., wheelchair, bedside chair)? 3 (P) -ST 3 -BL Climbing 3-5 steps with a railing? 2 (P) -ST 2 -BL To walk in hospital room? 3 (P) -ST 2 -BL AM-PAC 6 Clicks Score (PT) 17 (P) -ST 16 -BL Highest Level of Mobility Goal Stand (1 or More Minutes)-5 (P) -ST Stand (1 or More Minutes)-5 -BL Row Name 10/29/24 1110 How much help from another person do you currently need... Turning from your back to your side while in flat bed without using bedrails? 3 -BL Moving from lying on back to sitting on the side of a flat bed without bedrails? 3 -BL Moving to and from a bed to a chair (including a wheelchair)? 3 -BL Standing up from a chair using your arms (e.g., wheelchair, bedside chair)? 3 -BL Climbing 3-5 steps with a railing? 2 -BL To walk in hospital room? 2 -BL AM-PAC 6 Clicks Score (PT) 16 -BL Highest Level of Mobility Goal Stand (1 or More Minutes)-5 -BL Row Name 10/29/24 1531 Modified [place] Scale Pre-Stroke Modified [place] Scale 6 - Unable to determine (UTD) from the medical record documentation (P) -ST Modified [place] Scale 3 - Moderate disability. Requiring some help, but able to walk without assistance. (P) -ST User Carmona (r) = Recorded By, (t) = Taken By, (c) = Cosigned By Initials Name Provider Type Ronnie Carter, RN Registered Nurse Edil Mukherjee, PT Student PT Student Physical Therapy Education Title: PT OT OYSTER TONGER Therapies (In Progress) Topic: Physical Therapy (In Progress) Point: Mobility training (In Progress) Learning Progress Summary Patient Nonacceptance, E, NR by at 10/29/2024 1448 Acceptance, E, VU,NR by at 10/28/2024 1536 Point: Home exercise program (In Progress) Learning Progress Summary Patient Nonacceptance, E, NR by at 10/29/2024 1448 Point: Body mechanics (In Progress) Learning Progress Summary Patient Nonacceptance, E, NR by at 10/29/2024 1448 Acceptance, E, VU,NR by at 10/28/2024 1536 Point: Precautions (In Progress) Learning Progress Summary Patient Nonacceptance, E, NR by at 10/29/2024 1448 Acceptance, E, VU,NR by at 10/28/2024 1536 User Carmona Initials Effective Dates Name Provider Type Discipline MAI 10/01/20 - Jennifer Hendrickson, PT Physical Therapist PT 01/20/24 - Edil Franklin, PT Student PT Student PT PT Recommendation and Plan Progress: (P) improving Outcome Evaluation: (P) Pt demonstrates improved BLE strength and ability to complete bed mobility with less assist into todays session. Pt continues to present with decreased safety awareness, inability to safely position mobility device, and impulsivity when completeing transfers. Ambulation and theraputic exercise limited by pt refusal today. Pt continues to be appropriate for skilled PT services. PT rec to SNF upon D/C. Time Calculation: PT Charges Row Name 10/29/24 1533 Time Calculation PT Received On 10/29/24 (P) -ST PT Goal Re-Cert Due Date 11/07/24 (P) -ST Timed Charges 65517 - Gait Training Minutes 13 (P) -ST 07489 - PT Therapeutic Activity Minutes 13 (P) -ST Total Minutes Timed Charges Total Minutes 26 (P) -ST Total Minutes 26 (P) -ST User Carmona (r) = Recorded By, (t) = Taken By, (c) = Cosigned By Initials Name Provider Type ST Edil Franklin, PT Student PT Student Therapy Charges for Today Code Description Service Date Service Provider Modifiers Qty [id number] HC GAIT TRAINING EA 15 MIN 10/29/2024 Edil Franklin, PT Student GP 1 [id number] HC PT THERAPEUTIC ACT EA 15 MIN 10/29/2024 Edil Franklin, PT Student GP 1 PT G-Codes Outcome Measure Options: AM-PAC 6 Clicks Daily Activity (OT), Modified Terry AM-PAC 6 Clicks Score (PT): (P) 17 AM-PAC 6 Clicks Score (OT): 13 Modified [place] Scale: (P) 3 - Moderate disability. Requiring some help, but able to walk without assistance. PT Discharge Summary Anticipated Discharge Disposition (PT): (P) senior living facility Edil Franklin PT Student 10/29/2024 Cosigned by Yvonne Felder PT at 10/29/2024 3:55 PM EDT Associated attestation - Yvonne Felder PT - 10/29/2024 3:55 PM EDT Yvonne Felder PT, DPT, CSRS * Case Management/Social Work - Han Martin, RN - 10/29/2024 11:19 AM EDT Continued Stay Note [facility] Patient Name: Jessica Burnham Today's Date: 10/29/2024 Admit Date: 10/26/2024 Plan: [facility] Dis[facility] Plan Row Name 10/29/24 1119 Plan Plan [facility] Patient/Family in Agreement with Plan yes Plan Comments CM faxed a referral to [facility]. CM will continue to follow. Final Discharge Disposition Code 03 - senior living facility (SNF) Row Name 10/29/24 0928 [facility] Patient/Family in Agreement with Plan yes Plan Comments Spoke with patient at bedside. Lives alone in [place] Has caregiver 4-5 days a week. Contact is Saranya Raul (daughter/POA) [phone]. Is independent with ADL's. No problems affording [facility] or medications. [facility]. Uses a straight cane. No HH. PCP is [facility]. Plan [facility].Family will transport. CM will continue to follow. Final Discharge Disposition Code 03 - senior living facility (SNF) Discharge Codes No documentation. Expected Discharge Date and Time Expected Discharge Date Expected Discharge Time Oct 29, 2024 Han Martin, RN * Case Management/Social Work - Han Martin RN - 10/29/2024 9:30 AM EDT Images from the original note were not included. Discharge Planning Assessment [facility] Patient Name: Jessica Burnham Today's Date: 10/29/2024 Admit Date: 10/26/2024 [facility] Discharge Needs Assessment Row Name 10/29/24 0926 Living Environment People in Home other (see comments) Unique Family Situation Cargivers 4-5 days a week Current Living Arrangements apartment Potentially Unsafe Housing Conditions none In the past 12 months has the electric, gas, oil, or water company threatened to shut off services in your home? No Primary Care Provided by self Provides Primary Care For no one, unable/limited ability to care for self Family Caregiver if Needed child(adelaida), adult Family Caregiver Names Saranya Carter (daughter) [phone] Able to Return to Prior Arrangements yes Resource/Environmental Concerns Resource/Environmental Concerns none Transportation Concerns none Transportation Needs In the past 12 months, has lack of transportation kept you from medical appointments or from getting medications? no In the past 12 months, has lack of transportation kept you from meetings, work, or from getting things needed for daily living? No Food Insecurity Within the past 12 months, the food you bought just didn't last and you didn't have money to get more. Never true Transition Planning Patient/Family Anticipates Transition to inpatient rehabilitation facility Patient/Family Anticipated Services at Transition none Transportation Anticipated family or friend will provide Discharge Needs Assessment Readmission Within the Last 30 Days no previous admission in last 30 days Current Outpatient/Agency/Support Group senior living facility Equipment Currently Used at Home cane, straight Concerns to be Addressed denies needs/concerns at this time Do you want help finding or keeping work or a job? I do not need or want help Do you want help with school or training? For example, starting or completing job training or getting a high school diploma, GED or equivalent No Anticipated Changes Related to Illness none Equipment Needed After Discharge none Outpatient/Agency/Support Group Needs senior living facility Discharge Facility/Level of Care Needs nursing facility, skilled Provided Post Acute Provider List? Yes Post Acute Provider List Inpatient Rehab Provided Post Acute Provider Quality & Resource List? Yes Post Acute Provider Quality and Resource List Inpatient Rehab Delivered To Support Person Support Person Saranya Carter Method of Delivery Telephone Patient's Choice of Community Agency(s) [facility] Discharge Plan Row Name 10/29/24 0928 [facility] Patient/Family in Agreement with Plan yes Plan Comments Spoke with patient at bedside. Lives alone in [facility]. Has caregiver 4-5 days a week. Contact is Saranya Carter (daughter/POA) [phone]. Is independent with ADL's. No problems affording [facility] or medications. [facility]. Uses a straight cane. No HH. PCP is [facility]. [facility].Family will transport. CM will continue to follow. Final Discharge Disposition Code 03 - senior living facility (SNF) Continued Care and Services - Admitted Since 10/26/2024 No active coordination exists. Expected Discharge Date and Time Expected Discharge Date Expected Discharge Time Oct 29, 2024 Demographic Summary Row Name 10/29/24 0908 General Information Admission Type inpatient Arrived From hospital Referral Source admission list Reason for Consult discharge planning Preferred Language Belgian Contact Information Permission Granted to Share Info With case preparer and linermanager user interface Information Obtained for case preparer and linerjunior project manager Status Row Name 10/29/24 0925 Functional Status Usual Activity Tolerance moderate Current Activity Tolerance moderate Physical Activity On average, how many days per week do you engage in moderate to strenuous exercise (like a brisk walk)? 0 days On average, how many minutes do you engage in exercise at this level? 0 min Number of minutes of exercise per week 0 Functional Status, IADL Medications assistive person Meal Preparation assistive person Housekeeping assistive person Laundry assistive person Shopping assistive person If for any reason you need help with day-to-day activities such as bathing, preparing meals, shopping, managing finances, etc., do you get the help you need? I don't need any help Mental Status General Appearance WDL WDL Mental Status Summary Recent Changes in Mental Status/Cognitive Functioning no changes Employment/ Employment Status retired Psychosocial No documentation. Abuse/Neglect No documentation. Legal No documentation. Substance Abuse No documentation. Patient Forms No documentation. Han Martin RN * Therapy Evaluation - Pearl Holt, OT - 10/28/2024 2:59 PM EDT Images from the original note were not included. Patient Name: Jessica Burnham : 1935 Today's Date: 10/28/2024 Admit Date: 10/26/2024 Visit Dx: ICD-10-CM ICD-9-CM 1. Esophageal dysphagia R13.19 787.29 Patient Active Problem List Diagnosis Stroke-like symptoms Essential hypertension Mixed hyperlipidemia Dementia Past Medical History: Diagnosis Date Hypertension No past surgical history on file. General Information Row Name 10/28/24 1529 OT Time and Intention Document Type evaluation -AJ Mode of Treatment occupational therapy -AJ Row Name 10/28/24 1529 General Information Patient Profile Reviewed yes -AJ Prior Level of Function -- Pt is a poor historian; per chart review he is from a long-term. -AJ Existing Precautions/Restrictions fall;other (see comments) dementia -AJ Barriers to Rehab previous functional deficit;cognitive status -AJ Row Name 10/28/24 1529 Living Environment Current Living Arrangements residential facility;other (see comments) Difficult to determine if he is in a SNF for rehab or nursing home. - People in Home facility resident - Row Name 10/28/24 152 Cognition Orientation Status (Cognition) oriented x 3 - Row Name 10/28/24 152 Safety Issues/Impairments Affecting Functional Mobility Safety Issues Affecting Function (Mobility) awareness of need for assistance;insight into deficits/self-awareness;positioning of assistive device;safety precaution awareness;safety precautions follow- through/compliance;sequencing abilities - Impairments Affecting Function (Mobility) balance;cognition;endurance/activity tolerance;postural/trunk control;strength - Cognitive Impairments, Mobility Safety/Performance awareness, need for assistance;insight into deficits/self-awareness;problem-solving/reasoning;safety precaution awareness;safety precaution follow-through;sequencing abilities;attention;judgment - User Carmona (r) = Recorded By, (t) = Taken By, (c) = Cosigned By Initials Name Provider Type Pearl Eisenberg OT Occupational Therapist Mobility/ADL's Row Name 10/28/241532 Bed Mobility Bed Mobility supine-sit - Supine-Sit [place] (Bed Mobility) minimum assist (75% patient effort);1 person assist;verbal cues - Bed Mobility, Safety Issues cognitive deficits limit understanding - Assistive Device (Bed Mobility) head of bed elevated;bed rails - Comment, (Bed Mobility) Cues for task initiation - Row Name 10/28/241532 Transfers Transfers sit-stand transfer;toilet transfer - Row Name 10/28/241532 Sit-Stand Transfer Sit-Stand [place] (Transfers) minimum assist (75% patient effort);2 person assist;verbal cues - Assistive Device (Sit-Stand Transfers) walker, front-wheeled -JOSE MARIA Comment, (Sit-Stand Transfer) minAx2 and cues for HP - Row Name 10/28/24 153 Toilet Transfer Type (Toilet Transfer) sit-stand;stand-sit - [place] Level (Toilet Transfer) minimum assist (75% patient effort);2 person assist;verbal cues - Assistive Device (Toilet Transfer) commode;grab bars/safety frame;walker, front- wheeled -JOSE MARIA Comment, (Toilet Transfer) Cues for utilizing safety bars for safe lowering and rising from commode- Row Name 10/28/24 153 Functional Mobility Functional Mobility- Ind. Level 2 person assist required;verbal cues required;contact guard assist - Functional Mobility- Device walker, front-wheeled - Functional Mobility-Distance (Feet) -- to and from bathroom -[facility] 10/28/241532 Activities of Daily Living BADL Assessment/Intervention upper body dressing;lower body dressing;grooming;toileting -[facility] 10/28/241532 Upper Body Dressing Assessment/Training [place] Level (Upper Body Dressing) don;doff;front opening garment;moderate assist (50% patient effort) - Position (Upper Body Dressing) unsupported sitting -[facility] 10/28/241532 Lower Body Dressing Assessment/Training [place] Level (Lower Body Dressing) doff;don;socks;maximum assist (25% patient effort);dependent (less than 25% patient effort) - Position (Lower Body Dressing) unsupported sitting -[facility] 10/28/241532 Grooming Assessment/Training [place] Level (Grooming) wash face, hands;set up - Position (Grooming) supported sitting -[facility] 10/28/241532 Toileting Assessment/Training [place] Level (Toileting) adjust/manage clothing;perform perineal hygiene;dependent (less than25% patient effort) - Assistive Devices (Toileting) commode - Position (Toileting) unsupported sitting;supported standing - User Carmona (r) = Recorded By, (t) = Taken By, (c) = Cosigned By Initials Name Provider Type Pearl Holt OT Occupational Therapist Obj/Interventions [facility] 10/28/241537 Sensory Assessment (Somatosensory) Sensory Assessment (Somatosensory) UE sensation intact -[facility] 10/28/241537 Vision Assessment/Intervention Visual Impairment/Limitations unable/difficult to assess -[facility] 10/28/241537 Range of Motion Comprehensive General Range of Motion bilateral upper extremity ROM WFL -[facility] 10/28/241537 Strength Comprehensive (MMT) General Manual Muscle Testing (MMT) Assessment upper extremity strength deficits identified - Comment, General Manual Muscle Testing (MMT) Assessment BUE grossly 4/5 based on bed mobility and transfers; limited formal assessment d/t poor direction following -[facility] 10/28/241537 Balance Balance Assessment sitting static balance;sitting dynamic balance;sit to stand dynamic balance;standing static balance;standing dynamic balance -AJ Static Sitting Balance supervision -AJ Dynamic Sitting Balance standby assist -AJ Position, Sitting Balance unsupported;sitting edge of bed -AJ Static Standing Balance contact guard -AJ Dynamic Standing Balance contact guard -AJ Position/Device Used, Standing Balance supported -AJ Balance Interventions sitting;standing;sit to stand;supported;static;dynamic;occupation based/functional task - User Carmona (r) = Recorded By, (t) = Taken By, (c) = Cosigned By Initials Name Provider Type Pearl Eisenberg OT Occupational Therapist Goals/Plan Row Name 10/28/24 1543 Bed Mobility Goal 1 (OT) Activity/Assistive Device (Bed Mobility Goal 1, OT) sit to supine;supine to sit -AJ [place] Level/Cues Needed (Bed Mobility Goal 1, OT) standby assist -AJ Time Frame (Bed Mobility Goal 1, OT) nursing home goal (LTG);10 days -AJ Progress/Outcomes (Bed Mobility Goal 1, OT) new goal - Row Name 10/28/24 1543 Transfer Goal 1 (OT) Activity/Assistive Device (Transfer Goal 1, OT) [id number]-dicyg/lifhi-oo-bxe;[id number]-wu-[id number]/xdzhp-vv-qnr;toilet -AJ [place] Level/Cues Needed (Transfer Goal 1, OT) standby assist -AJ Time Frame (Transfer Goal 1, OT) nursing home goal (LTG);10 days -AJ Progress/Outcome (Transfer Goal 1, OT) new goal - Row Name 10/28/24 1543 Toileting Goal 1 (OT) Activity/Device (Toileting Goal 1, OT) adjust/manage clothing;perform perineal hygiene -AJ [place] Level/Cues Needed (Toileting Goal 1, OT) maximum assist (25-49% patient effort) -AJ Time Frame (Toileting Goal 1, OT) short term goal (STG);2 days -AJ Progress/Outcome (Toileting Goal 1, OT) new goal - Row Name 10/28/24 1543 Therapy Assessment/Plan (OT) Planned Therapy Interventions (OT) adaptive equipment training;BADL retraining;activity tolerance training;occupation/activity based interventions;functional balance retraining;IADL retraining;passive ROM/stretching;patient/caregiver education/training;ROM/therapeutic exercise;strengthening exercise;transfer/mobility retraining - User Carmona (r) = Recorded By, (t) = Taken By, (c) = Cosigned By Initials Name Provider Type Pearl Eisenberg OT Occupational Therapist Clinical Impression Row Name 10/28/24 1539 Pain Assessment Pretreatment Pain Rating 0/10 - no pain - Posttreatment Pain Rating 0/10 - no pain - Row Name 10/28/24 1539 Plan of Care Review Plan of Care Reviewed With patient - Progress no change - Outcome Evaluation OT eval complete. Pt presents below fxl baseline with ADLs and mobility, limitedby weakness, poor activity tolerance, balance deficits, and baseline cognitive impairments (dementia). Pt ambulated to and from bathroom with FWW and CGA- pt dependent with pericare and needs BRIEF WITH MOBILITY. Pt would benefit from ongoing skilled OT services to progress to PLOF. Rec d/c to SNF.- Row Name 10/28/24 1539 Therapy Assessment/Plan (OT) Patient/Family Therapy Goal Statement (OT) Return to PLOF - Rehab Potential (OT) good - Criteria for Skilled Therapeutic Interventions Met (OT) yes;meets criteria;skilled treatment is necessary - Therapy Frequency (OT) daily - Predicted Duration of Therapy Intervention (OT) 5 days - Row Name 10/28/24 1539 Therapy Plan Review/Discharge Plan (OT) Anticipated Discharge Disposition (OT) senior living facility - Row Name 10/28/24 1539 Vital Signs Pre Systolic BP Rehab 141 - Pre Treatment Diastolic BP 112 - Post Systolic BP Rehab 132 - Post Treatment Diastolic BP 104 -AJ Pretreatment Heart Rate (beats/min) 82 -AJ Posttreatment Heart Rate (beats/min) 83 -AJ Pre SpO2 (%) 98 -AJ O2 Delivery Pre Treatment room air - Post SpO2 (%) 98 - O2 Delivery Post Treatment room air - Pre Patient Position Supine -AJ Intra Patient Position Standing - Post Patient Position Sitting - Row Name 10/28/24 1539 Positioning and Restraints Pre-Treatment Position in bed - Post Treatment Position chair - In Chair notified nsg;reclined;sitting;call light within reach;encouraged to call for assist;exit alarm on;waffle cushion;legs elevated - User Carmona (r) = Recorded By, (t) = Taken By, (c) = Cosigned By Initials Name Provider Type Pearl Eisenberg OT Occupational Therapist Outcome Measures Row Name 10/28/24 1544 How much help from another is currently needed... Putting on and taking off regular lower body clothing? 2 -AJ Bathing (including washing, rinsing, and drying) 2 -AJ Toileting (which includes using toilet bed madsen or urinal) 1 -AJ Putting on and taking off regular upper body clothing 2 -AJ Taking care of personal grooming (such as brushing teeth) 3 -AJ Eating meals 3 -AJ AM-PAC 6 Clicks Score (OT) 13 -AJ Row Name 10/28/24 1536 10/28/24 1400 How much help from another person do you currently need... Turning from your back to your side while in flat bed without using bedrails? 4 -MAI 3 -BL Moving from lying on back to sitting on the side of a flat bed without bedrails? 3 -MAI 3 -BL Moving to and from a bed to a chair (including a wheelchair)? 3 -MAI 3 -BL Standing up from a chair using your arms (e.g., wheelchair, bedside chair)? 3 - MAI 3 -BL Climbing 3-5 steps with a railing? 2 -MAI 2 -BL To walk in hospital room? 3 -MAI 2 -BL AM-PAC 6 Clicks Score (PT) 18 -MAI 16 -BL Highest Level of Mobility Goal Walk 10 Steps or More-6 -MAI Stand (1 or More Minutes)-5 -BL Row Name 10/28/24 1200 10/28/24 1030 How much help from another person do you currently need... Turning from your back to your side while in flat bed without using bedrails? 3 -BL 3 -BL Moving from lying on back to sitting on the side of a flat bed without bedrails? 3 -BL 3 -BL Moving to and from a bed to a chair (including a wheelchair)? 3 -BL 3 -BL Standing up from a chair using your arms (e.g., wheelchair, bedside chair)? 3 - BL 3 -BL Climbing 3-5 steps with a railing? 2 -BL 2 -BL To walk in hospital room? 2 -BL 2 -BL AM-PAC 6 Clicks Score (PT) 16 -BL 16 -BL Highest Level of Mobility Goal Stand (1 or More Minutes)-5 -BL Stand (1 or More Minutes)-5 -BL Row Name 10/28/24 0840 How much help from another person do you currently need... Turning from your back to your side while in flat bed without using bedrails? 3 -BL Moving from lying on back to sitting on the side of a flat bed without bedrails? 3 -BL Moving to and from a bed to a chair (including a wheelchair)? 3 -BL Standing up from a chair using your arms (e.g., wheelchair, bedside chair)? 3 -BL Climbing 3-5 steps with a railing? 2 -BL To walk in hospital room? 2 -BL AM-PAC 6 Clicks Score (PT) 16 -BL Highest Level of Mobility Goal Stand (1 or More Minutes)-5 -BL Row Name 10/28/24 1544 Modified [place] Scale Pre-Stroke Modified [place] Scale 6 - Unable to determine (UTD) from the medical record documentation - Modified [place] Scale 3 - Moderate disability. Requiring some help, but able to walk without assistance. - Row Name 10/28/24 1544 10/28/24 1536 Functional Assessment Outcome Measure Options AM-PAC 6 Clicks Daily Activity (OT);Modified [place] - AM-PAC 6 Clicks Basic Mobility (PT) -MAI User Carmona (r) = Recorded By, (t) = Taken By, (c) = Cosigned By Initials Name Provider Type Jennifer Olvera, PT Physical Therapist Ronnie Salas, RN Registered Nurse Pearl Eisenberg OT Occupational Therapist Occupational Therapy Education Title: PT OT [facility]ER Therapies (In Progress) Topic: Occupational Therapy (In Progress) Point: ADL training (Done) Learning Progress Summary Patient Acceptance, E,D, VU,NR by at 10/28/20241544 Point: Precautions (Done) Learning Progress Summary Patient Acceptance, E,D, VU,NR by JOSE MARIA at 10/28/20241544 Point: Body mechanics (Done) Learning Progress Summary Patient Acceptance, E,D, VU,NR by at 10/28/20241544 User Carmona Initials Effective Dates Name Provider Type [facility] 12[facility]12/23 - Pearl Holt OT Occupational Therapist OT OT Recommendation and Plan Planned Therapy Interventions (OT): adaptive equipment training, BADL retraining, activity tolerance training, occupation/activity based interventions, functional balance retraining, IADL retraining,passive ROM/stretching, patient/caregiver education/training, ROM/therapeutic exercise, strengthening exercise, transfer/mobility retraining Therapy Frequency (OT): daily Plan of Care Review Plan of Care Reviewed With: patient Progress: no change Outcome Evaluation: OT eval complete. Pt presents below fxl baseline with ADLs and mobility, limited by weakness, poor activity tolerance, balance deficits, and baseline cognitive impairments (dementia). Pt ambulated to and from bathroom with FWW and CGA- pt dependent with pericare and needs BRIEF WITH MOBILITY. Pt would benefit from ongoing skilled OT services to progress to PLOF. Rec d/c to SNF. Time Calculation: Evaluation Complexity (OT) Review Occupational Profile/Medical/Therapy History Complexity: brief/low complexity Assessment, Occupational Performance/Identification of Deficit Complexity: 1-3 performance deficits Clinical Decision Making Complexity (OT): problem focused assessment/low complexity Overall Complexity of Evaluation (OT): low complexity Time Calculation- OT Row Name 10/28/24 1545 Time Calculation- OT OT Start Time 1459 -AJ OT Received On 10/28/24 -AJ OT Goal Re-Cert Due Date 11/07/24 -AJ Untimed Charges OT Eval/Re-eval Minutes 47 -AJ Total Minutes Untimed Charges Total Minutes 47 -AJ Total Minutes 47 -AJ User Carmona (r) = Recorded By, (t) = Taken By, (c) = Cosigned By Initials Name Provider Type Pearl Eisenberg OT Occupational Therapist Therapy Charges for Today Code Description Service Date Service Provider Modifiers Qty [id number] OT EVAL LOW COMPLEXITY 4 10/28/2024 Pearl Holt OT GO 1 Pearl Holt OT 10/28/2024 * Therapy Evaluation - Jennifer Hendrickson, PT - 10/28/2024 2:55 PM EDT Images from the original note were not included. Patient Name: Jessica Burnham : 1935 Today's Date: 10/28/2024 Admit Date: 10/26/2024 Visit Dx: ICD-10-CM ICD-9-CM 1. Esophageal dysphagia R13.19 787.29 Patient Active Problem List Diagnosis Stroke-like symptoms Essential hypertension Mixed hyperlipidemia Dementia Past Medical History: Diagnosis Date Hypertension No past surgical history on file. General Information Row Name 10/28/24 1525 Physical Therapy Time and Intention Document Type evaluation -MAI Mode of Treatment physical therapy - Row Name 10/28/24 1525 General Information Patient Profile Reviewed yes -MAI Prior Level of Function -- Per chart facility resident, limited historian. -MAI Existing Precautions/Restrictions fall;other (see comments) cognition -MAI Barriers to Rehab cognitive status;previous functional deficit -MAI Row Name 10/28/24 1525 Living Environment Current Living Arrangements residential facility - Row Name 10/28/24 1525 Safety Issues/Impairments Affecting Functional Mobility Impairments Affecting Function (Mobility) balance;cognition;endurance/activity tolerance;postural/trunk control -MAI User Carmona (r) = Recorded By, (t) = Taken By, (c) = Cosigned By Initials Name Provider Type MAI Jennifer Hendrickson, PT Physical Therapist Mobility Row Name 10/28/24 1528 Bed Mobility Bed Mobility supine-sit -MAI Supine-Sit [place] (Bed Mobility) verbal cues;nonverbal cues (demo/gesture);minimum assist (75% patient effort) -MAI Assistive Device (Bed Mobility) head of bed elevated;bed rails -MAI Comment, (Bed Mobility) Pt utilized bed rail -MAI Row Name 10/28/24 1528 Transfers Comment, (Transfers) Cues for sequencing and hand placement with FWW. -MAI Row Name 10/28/24 1528 Sit-Stand Transfer Sit-Stand [place] (Transfers) minimum assist (75% patient effort) -MAI Assistive Device (Sit-Stand Transfers) walker, front-wheeled -MAI Comment, (Sit-Stand Transfer) VCs -MAI Row Name 10/28/24 1528 Gait/Stairs (Locomotion) [place] Level (Gait) contact guard -MAI Assistive Device (Gait) walker, front-wheeled -MAI Patient was able to Ambulate yes -MAI Distance in Feet (Gait) 30 -MAI Deviations/Abnormal Patterns (Gait) bilateral deviations -MAI Left Sided Gait Deviations forward flexed posture -MAI Comment, (Gait/Stairs) Pt demo step to gait pattern with FWW. Pt had episode of bowel incontinence on the way to restroom. Distance limited by fatigue -MAI User Carmona (r) = Recorded By, (t) = Taken By, (c) = Cosigned By Initials Name Provider Type Jennifer Olvera, PT Physical Therapist Obj/Interventions Row Name 10/28/24 153 Range of Motion Comprehensive General Range of Motion bilateral lower extremity ROM WFL -MAI Row Name 10/28/24 153 Strength Comprehensive (MMT) General Manual Muscle Testing (MMT) Assessment lower extremity strength deficits identified -MAI Comment, General Manual Muscle Testing (MMT) Assessment LEs grossly 4-/5 -MAI Row Name 10/28/241530 Balance Balance Assessment sitting static balance;standing static balance;sitting dynamic balance;standing dynamic balance -MAI Static Sitting Balance independent -MAI Dynamic Sitting Balance standby assist -MAI Position, Sitting Balance unsupported;sitting edge of bed -MAI Static Standing Balance contact guard -MAI Dynamic Standing Balance contact guard -MAI Position/Device Used, Standing Balance supported;walker, front-wheeled -MAI Balance Interventions sitting;standing;sit to stand -MAI Comment, Balance No overt LOB, -MAI Row Name 10/28/241530 Sensory Assessment (Somatosensory) Sensory Assessment (Somatosensory) LE sensation intact -MAI User Carmona (r) = Recorded By, (t) = Taken By, (c) = Cosigned By Initials Name Provider Type Jennifer Olvera, PT Physical Therapist Goals/Plan Row Name 10/28/241534 Bed Mobility Goal 1 (PT) Activity/Assistive Device (Bed Mobility Goal 1, PT) sit to supine/supine to sit -MAI [place] Level/Cues Needed (Bed Mobility Goal 1, PT) independent -MAI Time Frame (Bed Mobility Goal 1, PT) rn long term care goal (LTG);10 days -MAI Row Name 10/28/241534 Transfer Goal 1 (PT) Activity/Assistive Device (Transfer Goal 1, PT) [id number] -MAI [place] Level/Cues Needed (Transfer Goal 1, PT) modified independence -MAI Time Frame (Transfer Goal 1, PT) short term goal (STG);5 days - Row Name 10/28/241534 Gait Training Goal 1 (PT) Activity/Assistive Device (Gait Training Goal 1, PT) gait (walking locomotion);assistive device use-MAI [place] Level (Gait Training Goal 1, PT) modified independence -MAI Distance (Gait Training Goal 1, PT) 100 -MAI Time Frame (Gait Training Goal 1, PT) rn long term care goal (LTG);10 days -MAI Row Name 10/28/24 1535 Therapy Assessment/Plan (PT) Planned Therapy Interventions (PT) balance training;bed mobility training;gait training;home exercise program;strengthening;transfer training;patient/family education;postural re-education;neuromuscular re-education -MAI User Carmona (r) = Recorded By, (t) = Taken By, (c) = Cosigned By Initials Name Provider Type Jennifer Olvera, PT Physical Therapist Clinical Impression Row Name 10/28/24 153 Pain Pretreatment Pain Rating 0/10 - no pain -MAI Posttreatment Pain Rating 0/10 - no pain -MAI Row Name 10/28/24 153 Plan of Care Review Plan of Care Reviewed With patient -MAI Progress no change -MAI Outcome Evaluation PT evaluation completed. Pt able to state name but unable to state time/date or place. Pt req CGA with ambulating in room with FWW, had episode of incontinence. Pt demo strength and balance deficits, will beneift from IP PT services. Recommend SNF upon DC. -MAI Row Name 10/28/24 153 Therapy Assessment/Plan (PT) Patient/Family Therapy Goals Statement (PT) not stated -MAI Rehab Potential (PT) fair -MAI Criteria for Skilled Interventions Met (PT) yes;skilled treatment is necessary -MAI Therapy Frequency (PT) daily -MAI Row Name 10/28/24 153 Vital Signs Pre Systolic BP Rehab 141 nsg in room and okd -MAI Pre Treatment Diastolic BP 112 -MAI Post Systolic BP Rehab 132 -MAI Post Treatment Diastolic BP 104 -MAI Pretreatment Heart Rate (beats/min) 82 -MAI Posttreatment Heart Rate (beats/min) 82 -MAI O2 Delivery Pre Treatment room air -MAI O2 Delivery Intra Treatment room air -MAI Post SpO2 (%) 98 -MAI O2 Delivery Post Treatment room air -MAI Pre Patient Position Supine -MAI Intra Patient Position Standing -MAI Post Patient Position Sitting -MAI Row Name 10/28/24 1531 Positioning and Restraints Pre-Treatment Position in bed -MAI Post Treatment Position chair -MAI In Chair notified nsg;reclined;call light within reach;waffle cushion;encouraged to call for assist;exit alarm on;legs elevated -MAI User Carmona (r) = Recorded By, (t) = Taken By, (c) = Cosigned By Initials Name Provider Type Jennifer Olvera, PT Physical Therapist Outcome Measures Row Name 10/28/24 1536 10/28/24 1400 How much help from another person do you currently need... Turning from your back to your side while in flat bed without using bedrails? 4 -MAI 3 -BL Moving from lying on back to sitting on the side of a flat bed without bedrails? 3 -MAI 3 -BL Moving to and from a bed to a chair (including a wheelchair)? 3 -MAI 3 -BL Standing up from a chair using your arms (e.g., wheelchair, bedside chair)? 3 - MAI 3 -BL Climbing 3-5 steps with a railing? 2 -MAI 2 -BL To walk in hospital room? 3 -MAI 2 -BL AM-PAC 6 Clicks Score (PT) 18 -MAI 16 -BL Highest Level of Mobility Goal Walk 10 Steps or More-6 -MAI Stand (1 or More Minutes)-5 -BL Row Name 10/28/24 1200 10/28/24 1030 How much help from another person do you currently need... Turning from your back to your side while in flat bed without using bedrails? 3 -BL 3 -BL Moving from lying on back to sitting on the side of a flat bed without bedrails? 3 -BL 3 -BL Moving to and from a bed to a chair (including a wheelchair)? 3 -BL 3 -BL Standing up from a chair using your arms (e.g., wheelchair, bedside chair)? 3 - BL 3 -BL Climbing 3-5 steps with a railing? 2 -BL 2 -BL To walk in hospital room? 2 -BL 2 -BL AM-PAC 6 Clicks Score (PT) 16 -BL 16 -BL Highest Level of Mobility Goal Stand (1 or More Minutes)-5 -BL Stand (1 or More Minutes)-5 -BL Row Name 10/28/24 0840 How much help from another person do you currently need... Turning from your back to your side while in flat bed without using bedrails? 3 -BL Moving from lying on back to sitting on the side of a flat bed without bedrails? 3 -BL Moving to and from a bed to a chair (including a wheelchair)? 3 -BL Standing up from a chair using your arms (e.g., wheelchair, bedside chair)? 3 -BL Climbing 3-5 steps with a railing? 2 -BL To walk in hospital room? 2 -BL AM-PAC 6 Clicks Score (PT) 16 -BL Highest Level of Mobility Goal Stand (1 or More Minutes)-5 -BL Row Name 10/28/24 1536 Functional Assessment Outcome Measure Options AM-PAC 6 Clicks Basic Mobility (PT) - User Carmona (r) = Recorded By, (t) = Taken By, (c) = Cosigned By Initials Name Provider Type Jennifer Olvera, PT Physical Therapist Ronnie Salas, RN Registered Nurse Physical Therapy Education Title: PT OT [facility]ER Therapies (In Progress) Topic: Physical Therapy (In Progress) Point: Mobility training (Done) Learning Progress Summary Patient Acceptance, E, VU,NR by MAI at 10/28/2024 1536 Point: Home exercise program (Not Started) Learner Progress: Not documented in this visit. Point: Body mechanics (Done) Learning Progress Summary Patient Acceptance, E, VU,NR by MAI at 10/28/2024 1536 Point: Precautions (Done) Learning Progress Summary Patient Acceptance, E, VU,NR by at 10/28/2024 1536 User Carmona Initials Effective Dates Name Provider Type Discipline MAI 10/01/20 - Jennifer Hendrickson, PT Physical Therapist PT PT Recommendation and Plan Planned Therapy Interventions (PT): balance training, bed mobility training, gait training, home exercise program, strengthening, transfer training, patient/family education, postural re-education, neuromuscular re-education Progress: no change Outcome Evaluation: PT evaluation completed. Pt able to state name but unable to state time/date orplace. Pt req CGA with ambulating in room with FWW, had episode of incontinence. Pt demo strength and balance deficits, will beneift from IP PT services. Recommend SNF upon DC. Time Calculation: PT Evaluation Complexity History, PT Evaluation Complexity: 1-2 personal factors and/or comorbidities Examination of Body Systems (PT Eval Complexity): total of 3 or more elements Clinical Presentation (PT Evaluation Complexity): evolving Clinical Decision Making (PT Evaluation Complexity): moderate complexity Overall Complexity (PT Evaluation Complexity): moderate complexity PT Charges Row Name 10/28/24 1537 Time Calculation Start Time 1455 -MAI PT Received On 10/28/24 -MAI PT Goal Re-Cert Due Date 11/07/24 -MAI Untimed Charges PT Eval/Re-eval Minutes 62 -MAI Total Minutes Untimed Charges Total Minutes 62 -MAI Total Minutes 62 -MAI User Carmona (r) = Recorded By, (t) = Taken By, (c) = Cosigned By Initials Name Provider Type Jennifer Olvera, PT Physical Therapist Therapy Charges for Today Code Description Service Date Service Provider Modifiers Qty [id number] HC-PT EVAL MOD COMPLEXITY 5 10/28/2024 Jennifer Hendrickson, PT 1 PT G-Codes Outcome Measure Options: AM-PAC 6 Clicks Basic Mobility (PT) AM-PAC 6 Clicks Score (PT): 18 PT Discharge Summary Anticipated Discharge Disposition (PT): senior living facility Jennifer Hendrickson PT 10/28/2024 * Therapy Evaluation - Sissy Lopez MS CCC-OYSTER TONGER - 10/27/2024 2:46 PM EDT Images from the original note were not included. Acute Care - Speech Language Pathology Swallow Initial Evaluation [facility] Clinical Swallow Evaluation Cognitive-Communication Evaluation Patient Name: Jessica Burnham : 1935 Today's Date: 10/27/2024 Admit Date: 10/26/2024 Visit Dx: No diagnosis found. Patient Active Problem List Diagnosis Stroke-like symptoms No past medical history on file. No past surgical history on file. OYSTER TONGER Recommendation and Plan OYSTER TONGER Swallowing Diagnosis: functional oral phase, R/O pharyngeal dysphagia, suspected esophageal dysphagia (10/27/24 1300) OYSTER TONGER Diet Recommendation: puree, thin liquids, other (see comments) (pureed for comfort as pt c/o solids sticking in his esophagus) (10/27/24 1300) Recommended Precautions and Strategies: upright posture during/after eating, small bites of food and sips of liquid, reflux precautions (10/27/24 1300) OYSTER TONGER Rec. for Method of Medication Administration: meds whole, meds crushed, with puree, as tolerated (10/27/241299) Monitor for Signs of Aspiration: notify OYSTER TONGER if any concerns (10/27/241299) Recommended Diagnostics: other (see comments) (diet tolerance, MBS if any concerns after GI sees) (10/27/241299) Swallow Criteria for Skilled Therapeutic Interventions Met: demonstrates skilled criteria () Anticipated Discharge Disposition (OYSTER TONGER): senior living facility (10/27/241299) Rehab Potential/Prognosis, Swallowing: good, to achieve stated therapy goals (10/27/241299) Therapy Frequency (Swallow): PRN, 5 days per week (10/27/241299) Predicted Duration Therapy Intervention (Days): 1 week (10/27/241299) Oral Care Recommendations: Oral Care BID/PRN, Toothbrush (10/27/241299) Demonstrates Need for Referral to Another Service: gastroenterology, dedicated esophageal assessment (10/27/241299) Swallowing Considerations per Physician Discretion: medical management of suspected esophageal dysphagia, as indicated (10/27/241299) SWALLOW EVALUATION (Last 72 Hours) OYSTER TONGER Adult Swallow Evaluation Row Name 10/27/241299 General Information Current Method of Nutrition NPO -CH Prior Level of Function-Communication cognitive-linguistic impairment;other (see comments) -CH General Eating/Swallowing Observations Respiratory Support Currently in Use room air -CH Eating/Swallowing Skills self-fed;appropriate self-feeding skills observed -CH Positioning During Eating upright 90 degree;upright in bed -CH Utensils Used spoon;cup;straw -CH Consistencies Trialed ice chips;thin liquids;pureed;regular textures -CH Respiratory Respiratory Status WFL;room air -CH Clinical Swallow Eval Oral Prep Phase WFL -CH Oral Transit WFL -CH Oral Residue WFL -CH Pharyngeal Phase no overt signs/symptoms of pharyngeal impairment -CH Esophageal Phase suspected esophageal impairment -CH Esophageal Phase Concerns Esophageal Phase Concerns sensation of material sticking;other (see comments) delayed coughing 3-4 minutes after evaluation completed. Pt c/o food sticking in his esophagus and having to cough it back up -CH Sensation of Material Sticking mechanical soft;regular consistencies -CH Swallowing Quality of Life Assessment Education and counseling provided Signs of aspiration;Risks of aspiration;Oral care recommendationsand rationale -CH OYSTER TONGER Evaluation Clinical Impression OYSTER TONGER Swallowing Diagnosis functional oral phase;R/O pharyngeal dysphagia;suspected esophageal dysphagia - Functional Impact risk of aspiration/pneumonia;risk of malnutrition - Rehab Potential/Prognosis, Swallowing good, to achieve stated therapy goals - Swallow Criteria for Skilled Therapeutic Interventions Met demonstrates skilled criteria - Recommendations Therapy Frequency (Swallow) PRN;5 days per week - OYSTER TONGER Diet Recommendation puree;thin liquids;other (see comments) pureed for comfort as pt c/o solidssticking in his esophagus - Recommended Diagnostics other (see comments) diet tolerance, MBS if any concerns after GI sees - Recommended Precautions and Strategies upright posture during/after eating;small bites of food and sips of liquid;reflux precautions - Oral Care Recommendations Oral Care BID/PRN;Toothbrush - OYSTER TONGER Rec. for Method of Medication Administration meds whole;meds crushed;with puree;as tolerated - Monitor for Signs of Aspiration notify OYSTER TONGER if any concerns - Demonstrates Need for Referral to Another Service gastroenterology;dedicated esophageal assessment - Swallowing Considerations per Physician Discretion medical management of suspected esophageal dysphagia, as indicated - User Carmona (r) = Recorded By, (t) = Taken By, (c) = Cosigned By Initials Name Effective Dates Sissy Lopez, [facility] 05/07/24 - EDUCATION The patient has been educated in the following areas: Dysphagia (Swallowing Impairment) Oral Care/Hydration Modified Diet Instruction. [facility] GOALS Row Name 10/27/24 1300 (LTG) Patient will demonstrate functional swallow for Diet Texture (Demonstrate functional swallow) mechanical ground textures - Liquid viscosity (Demonstrate functional swallow) thin liquids - Duval (Demonstrate functional swallow) with minimal cues (75-90% accuracy) - Time Frame (Demonstrate functional swallow) 1 week - (STG) Patient will tolerate trials of Consistencies Trialed (Tolerate trials) pureed textures;thin liquids - Desired Outcome (Tolerate trials) without signs/symptoms of aspiration;with adequate oral prep/transit/clearance - Duval (Tolerate trials) with minimal cues (75-90% accuracy) - Time Frame (Tolerate trials) 1 week - Patient will demonstrate functional cognitive-linguistic skills for return to discharge environment Duval with minimal cues - Time frame 1 week - [facility] Diagnostic Treatment Patient will participate in further assessment in the following areas clarification of baseline cognitive communication status - Time Frame (Diagnostic) 1 week -CH Word Retrieval Skills Goal 1 ([facility]) Improve Word Retrieval Skills By Goal 1 ([facility]) high frequency;responsive naming task;completing a divergent task;80%;with minimal cues (75-90%) - Time Frame (Word Retrieval Goal 1, [facility]) 1 week -CH Orientation Goal 1 ([facility]) Improve Orientation Through Goal 1 ([facility]) demonstrating orientation to day;demonstrating orientationto month;demonstrating orientation to year;demonstrating orientation to place;demonstrating orientation to disease/impairment;use environmental aids to assist with orientation;80%;with minimal cues (75-90%) - Time Frame (Orientation Goal 1, [facility]) 1 week -CH Memory Skills Goal 1 ([facility]) Improve Memory Skills Through Goal 1 ([facility]) recalling related word lists immediately;recall details of the day;90%;with minimal cues (75-90%) - Time Frame (Memory Skills Goal 1, [facility]) 1 week - User Carmona (r) = Recorded By, (t) = Taken By, (c) = Cosigned By Initials Name Provider Type Sissy Saldana MS [facility] Speech and Language Pathologist Time Calculation: Time Calculation- [facility] Row Name 10/27/24 1439 Time Calculation- [facility] Start Time 1300 -CH [facility] Received On 10/27/24 -CH Untimed Charges [facility] Eval/Re-eval ST Eval Speech and Production w/ Language - 90456;ST Eval Oral Pharyng Swallow - 29158 -CH 80457-UA Eval Speech and Production w/ Language Minutes 40 -CH 28868-WW Eval Oral Pharyng Swallow Minutes 42 -CH Total Minutes Untimed Charges Total Minutes 82 -CH Total Minutes 82 -CH User Carmona (r) = Recorded By, (t) = Taken By, (c) = Cosigned By Initials Name Provider Type Sissy Saldana MS [facility] Speech and Language Pathologist Therapy Charges for Today Code Description Service Date Service Provider Modifiers Qty 50589213030 HC ST EVAL ORAL PHARYNG SWALLOW 3 10/27/2024 Sissy Lopez MS [facility] GN [id number] EVAL SPEECH AND PROD W LANG 3 10/27/2024 Sissy Lopez MS CCC-[facility] GN 1 MS REZA Davalos 10/27/2024 and Acute Care - Speech Language Pathology Initial Evaluation [place] Patient Name: Jessica Burnham : 1935 Today's Date: 10/27/2024 Admit Date: 10/26/2024 Visit Dx: No diagnosis found. Patient Active Problem List Diagnosis Stroke-like symptoms No past medical history on file. No past surgical history on file. [facility] Recommendation and Plan [facility] Diagnosis: mild, cognitive-linguistic disorder (10/27/241299) Monitor for Signs of Aspiration: notify [facility] if any concerns (10/27/241299) Swallow Criteria for Skilled Therapeutic Interventions Met: demonstrates skilled criteria () [facility] Criteria for Skilled Therapy Interventions Met: yes (10/27/241299) Anticipated Discharge Disposition ([facility]): senior living facility (10/27/241299) Demonstrates Need for Referral to Another Service: gastroenterology, dedicated esophageal assessment (10/27/241299) Therapy Frequency (Swallow): PRN, 5 days per week (10/27/241299) Therapy Frequency ([facility] SLC): 5 days per week (10/27/241299) Predicted Duration Therapy Intervention (Days): 1 week (10/27/241299) Oral Care Recommendations: Oral Care BID/PRN, Toothbrush (10/27/241299) [facility] EVALUATION (Last 72 Hours) [facility] SLC Evaluation Row Name 10/27/241299 Communication Assessment/Intervention Document Type evaluation -CH Subjective Information no complaints -CH Patient Observations alert;cooperative;agree to therapy - Patient/Family/Caregiver Comments/Observations none present -CH Patient Effort good -CH Symptoms Noted During/After Treatment none -CH Oral Care patient refused intervention - General Information Patient Profile Reviewed yes -CH Pertinent History Of Current Problem admitted with left facial droop, difficulty following commands. Hx dementia. MRI pending. - Precautions/Limitations, Vision WFL;for purposes of eval -CH Precautions/Limitations, Hearing WFL;for purposes of eval -CH Prior Level of Function-Communication cognitive-linguistic impairment;other (see comments) dementiaat baseline - Plans/Goals Discussed with patient;agreed upon - Barriers to Rehab cognitive status - Patient's Goals for Discharge patient did not state - Pain Pretreatment Pain Rating 0/10 - no pain -CH Posttreatment Pain Rating 0/10 - no pain -CH Comprehension Assessment/Intervention Comprehension Assessment/Intervention Auditory Comprehension;Reading Comprehension - Auditory Comprehension Assessment/Intervention Auditory Comprehension (Communication) WFL -CH Reading Comprehension Assessment/Intervention Phrase Level WFL -CH Expression Assessment/Intervention Expression Assessment/Intervention verbal expression -CH Verbal Expression Assessment/Intervention Verbal Expression mild impairment -CH Automatic Speech (Communication) response to greeting;counting 1-20;days of week;WFL - Repetition sentences;WFL -CH Phrase Completion automatic/predictable;WFL -CH Responsive Naming simple;mild impairment -CH Confrontational Naming high frequency;WFL -CH Spontaneous/Functional Words WFL -CH Sentence Formulation WFL -CH Oral Motor Structure and Function Oral Motor Structure and Function mild impairment -CH Dentition Assessment edentulous, does not have dentures - Mucosal Quality dry - Oral Musculature and Cranial Nerve Assessment Oral Labial or Buccal Impairment, Detail, Cranial Nerve VII (Facial): left labial droop -CH Motor Speech Assessment/Intervention Motor Speech Function WFL - Cursory Voice Assessment/Intervention Quality and Resonance (Voice) WNL -CH Cognitive Assessment Intervention- [facility] Cognitive Function (Cognition) mild impairment -CH Orientation Status (Cognition) awareness of basic personal information;person;WFL;place;time;situation;mild impairment -CH Memory (Cognitive) simple;immediate;long-term;WFL;short-term;delayed;mild impairment -CH Attention (Cognitive) selective;sustained;WFL;attention to detail;mild impairment -CH Thought Organization (Cognitive) concrete divergent;abstract divergent;concrete convergent;abstractconvergent;verbal sequencing;mild impairment -CH Reasoning (Cognitive) simple;deductive;WFL -CH [facility] Evaluation Clinical Impressions [facility] Diagnosis mild;cognitive-linguistic disorder -CH Rehab Potential/Prognosis good - [facility] Criteria for Skilled Therapy Interventions Met yes - Recommendations Therapy Frequency ([facility] SLC) 5 days per week -CH Predicted Duration Therapy Intervention (Days) 1 week - Anticipated Discharge Disposition ([facility]) senior living facility - User Carmona (r) = Recorded By, (t) = Taken By, (c) = Cosigned By Initials Name Effective Dates Sissy Saldana MS CCC[facility] 05/07/24 - EDUCATION The patient has been educated in the following areas: Cognitive Impairment Communication Impairment. [facility] GOALS Row Name 10/27/24 1300 (LTG) Patient will demonstrate functional swallow for Diet Texture (Demonstrate functional swallow) mechanical ground textures -CH Liquid viscosity (Demonstrate functional swallow) thin liquids -CH Duval (Demonstrate functional swallow) with minimal cues (75-90% accuracy) - Time Frame (Demonstrate functional swallow) 1 week -CH (STG) Patient will tolerate trials of Consistencies Trialed (Tolerate trials) pureed textures;thin liquids -CH Desired Outcome (Tolerate trials) without signs/symptoms of aspiration;with adequate oral prep/transit/clearance -CH Duval (Tolerate trials) with minimal cues (75-90% accuracy) - Time Frame (Tolerate trials) 1 week -CH Patient will demonstrate functional cognitive-linguistic skills for return to discharge environment Duval with minimal cues -CH Time frame 1 week -CH [facility] Diagnostic Treatment Patient will participate in further assessment in the following areas clarification of baseline cognitive communication status - Time Frame (Diagnostic) 1 week - Word Retrieval Skills Goal 1 ([facility]) Improve Word Retrieval Skills By Goal 1 ([facility]) high frequency;responsive naming task;completing a divergent task;80%;with minimal cues (75-90%) - Time Frame (Word Retrieval Goal 1, [facility]) 1 week - Orientation Goal 1 ([facility]) Improve Orientation Through Goal 1 ([facility]) demonstrating orientation to day;demonstrating orientationto month;demonstrating orientation to year;demonstrating orientation to place;demonstrating orientation to disease/impairment;use environmental aids to assist with orientation;80%;with minimal cues (75-90%) - Time Frame (Orientation Goal 1, [facility]) 1 week - Memory Skills Goal 1 ([facility]) Improve Memory Skills Through Goal 1 ([facility]) recalling related word lists immediately;recall details of the day;90%;with minimal cues (75-90%) - Time Frame (Memory Skills Goal 1, [facility]) 1 week - User Carmona (r) = Recorded By, (t) = Taken By, (c) = Cosigned By Initials Name Provider Type Sissy Saldana MS [facility] Speech and Language Pathologist Time Calculation: Time Calculation- [facility] Row Name 10/27/24 2399 Time Calculation- [facility] OY[facility] Start Time 1300 - [facility] Received On 10/27/24 - Untimed Charges [facility] Eval/Re-eval ST Eval Speech and Production w/ Language - 04296;ST Eval Oral Pharyng Swallow - 41603 - 10435-OB Eval Speech and Production w/ Language Minutes 40 -CH 35326-EC Eval Oral Pharyng Swallow Minutes 42 -CH Total Minutes Untimed Charges Total Minutes 82 -CH Total Minutes 82 -CH User Carmona (r) = Recorded By, (t) = Taken By, (c) = Cosigned By Initials Name Provider Type Sissy Lopez MS CCC[facility] Speech and Language Pathologist Therapy Charges for Today Code Description Service Date Service Provider Modifiers Qty [id number] HC ST EVAL ORAL PHARYNG SWALLOW 3 10/27/2024 Sissy Lopez MS CCC-[facility] GN [id number] EVAL SPEECH AND PROD W LANG 3 10/27/2024 Sissy Lopez MS CCC-[facility] GN 1 MS REZA Davalos 10/27/2024 documented in this encounter Plan of Treatment Not on file documented as of this encounter Procedures Procedure Name Priority Date/Time Associated Diagnosis Comments URINALYSIS, MICROSCOPIC ONLY Routine 10:12 AM EDT URINALYSIS W/ CULTURE IF INDICATED Routine 10/30/2024 10:12 AM EDT NV ESOPHAGOGASTRODUODENOSCOP Y TRANSORAL DIAGNOSTIC 10/29/2024 9:30 AM EDT UPPER GI ENDOSCOPY 10/29/2024 9:19 AM EDT DUPLEX VENOUS LOWER EXTREMIT Y LEFT CAR Routine 10/28/2024 12:31 PM EDT ECHO COMPLETE W/ DOPPLER AND COLOR FLOW Routine 10/28/2024 9:35 AM EDT CBC (NO DIFF) Routine 10/28/2024 8:42 AM EDT BASIC METABOLIC PANEL Routine 10/28/2024 8:42 AM EDT ECG 12-LEAD STAT 10/28/2024 12:32 AM EDT URINALYSIS, MICROSCOPIC ONLY Routine 12:09 AM EDT URINALYSIS W/ CULTURE IF INDICATED STAT 10/28/2024 12:09 AM EDT CBC WITH AUTO DIFFERENTIAL STAT 10/27 11:54 PM EDT CBC AND DIFFERENTIAL STAT 10/27/2024 11:54 PM EDT MAGNESIUM STAT 10/27/2024 11:54 PM EDT LACTIC ACID, PLASMA STAT 10/27/2024 11:54 PM EDT COMPREHENSIVE METABOLIC PANEL STAT 11:54 PM EDT MRI BRAIN WO CONTRAST Routine 10/27/2024 7:22 PM EDT POCT GLUCOSE FINGERSTICK Routine 025 5:38 PM EDT URINE DRUG SCREEN Routine 10/27/2024 3:18 PM EDT FENTANYL, URINE Routine 10/27/2024 3:18 PM EDT EEG AWAKE OR DROWSY PORTABLE Routine 03/2025 12:15 PM EDT POCT GLUCOSE FINGERSTICK Routine 025 11:15 AM EDT HEMOGLOBIN A1C Routine 10/27/2024 9:46 AM EDT LIPID PANEL Routine 10/27/2024 9:46 AM EDT POCT GLUCOSE FINGERSTICK Routine 025 1:03 AM EDT LACTIC ACID, PLASMA STAT 10/26/2024 11:21 PM EDT CK STAT 10/26/2024 11:[address] OUTSIDE HEAD Routine 10/26/2024 12:[address] OUTSIDE HEAD Routine 10/26/2024 12:[address] OUTSIDE NECK Routine 10/26/2024 12:00 AM EDT SCANNED - IMAGING 10/26/2024 documented in this encounter Results * Urinalysis, Microscopic Only - Urine, Clean Catch (10/30/2024 10:12 AM EDT) RBC, UA 0-2 None Seen, 0-2 /HPF 10/30/2024 10:31 AM EDT [facility] WBC, UA 0-2 None Seen, 0-2 /HPF 10/30/2024 10:31 AM EDT [facility] Comment:Urine culture not in dicated. Bacteria, UA None Seen None Seen /HPF 10/30/2024 10:31 AM EDT [facility] Squamous Epithelial Cells, UA 0-2 None Seen, 0-2 /HPF 10/30/2024 10:31 AM EDT [facility] Hyaline Casts, UA None Seen None Seen /LPF 10/30/2024 10:31 AM EDT [facility] Methodology Automated Microscopy 10/30/2024 10:31 AM EDT [facility] Urine Urine specimen obtained by clean catch procedure / Unknown Collection / Unknown 10/30/2024 10:12 AM EDT 10/30/2024 10:12 AM EDT us Che Kiser MACHINE TOOL TECHNOLOGY INSTRUCTOR URINE ORDERABLES F inal Result [facility]
[address] [place] [address], * (ABNORMAL) Urinalysis With Culture If Indicated - Urine, Clean Catch (10/30/2024 10:12 AM EDT) Color, UA Yellow Yellow, Straw 10/30/2024 10:31 AM EDT [facility] Appearance, UA Clear Clear 10/30/2024 10:31 AM EDT [facility] pH, UA 7.0 5.0 - 8.0 10/30/2024 10:31 AM EDT [facility] Specific [employer], UA 1.011 1.005 - 1.030 10/30/2024 10:31 AM EDT [facility] Glucose, UA Negative Negative 10/30/2024 10:31 AM EDT [facility] Ketones, UA Negative Negative 10/30/2024 10:31 AM EDT [facility] Bilirubin, UA Negative Negative 10/30/2024 10:[facility] Blood, UA Negative Negative 10/30/2024 10:31 AM EDT [facility] Protein, UA 30 mg/dL (1+)(A) Negative 10/30/2024 10:31 AM EDT [facility] Leuk Esterase, UA Moderate (2+)(A) Negative 10/30/2024 10:31 AM EDT [facility] Nitrite, UA Negative Negative 10/30/2024 10:31 AM [facility] Urobilinogen, UA 1.0 E.U./dL 0.2 - 1.0 E.U./dL 10/30/2024 10:31 AM T [facility] Urine Urine specimen obtained by clean catch procedure / Unknown Collection / Unknown 10/30/2024 10:12 AM EDT 10/30/2024 10:12 AM EDT [facility] - 10/30/2024 10:31 AM EDT In absence of clinical symptoms, the presence of pyuria, bacteria, and/or nitrites on the urinalysis result does not correlate with infection. us Che Kiser MACHINE TOOL TECHNOLOGY INSTRUCTOR URINE ORDERABLES F inal Result [facility]
[address] [place] [address], * Upper GI Endoscopy (10/29/2024 9:19 AM EDT) Mian Garcia MD INTERFACE NEEDS Final Result * Duplex Venous Lower Extremity - Left CAR (10/28/2024 12:31 PM EDT) Right Common Femoral Spont Y Right Common Femoral Phasic Y Right Common Femoral Augment Y Left Common Femoral Spont Y Left Common Femoral Phasic Y Left Common Femoral Compress C Left Common Femoral Augment Y Left Saphenofemoral Junction Spont Y Left Saphenofemoral Junction Phasic Y Left Saphenofemoral Junction Compress C Left Saphenofemoral Junction Augment Y Left Profunda Femoral Spont Y Left Profunda Femoral Phasic Y Left Proximal Femoral Spont Y Left Proximal Femoral Phasic Y Left Proximal Femoral Compress C Left Proximal Femoral Augment Y Left Mid Femoral Spont Y Left Mid Femoral Phasic Y Left Mid Femoral Compress C Left Mid Femoral Augment Y Left Distal Femoral Spont Y Left Distal Femoral Phasic Y Left Distal Femoral Compress C Left Distal Femoral Augment Y Left Popliteal Spont Y Left Popliteal Phasic Y Left Popliteal Compress C Left Popliteal Augment Y Left Posterior Tibial Compress C Left Peroneal Compress C Left Gastronemius Compress C Left Greater Saph AK Compress C Left Greater Saph BK Compress C Left Lesser Saph Compress C Anatomical Region Laterality Modality Ultrasound Narrative 10/28/2024 1:43 PM EDT Normal left lower extremity venous duplex scan. Incidentally enlarged lymph nodes are noted in the left groin. Study Impression Left Common Femoral: No deep vein thrombosis noted. Left Saphenofemoral Junction: No superficial thrombophlebitis noted. Left Proximal Femoral: No deep vein thrombosis noted. Left Mid Femoral: No deep vein thrombosis noted. Left Distal Femoral: No deep vein thrombosis noted. Left Popliteal: No deep vein thrombosis noted. Left Posterior Tibial: No deep vein thrombosis noted. Left Peroneal: No deep vein thrombosis noted. Left Gastrocnemius: No deep vein thrombosis noted. Left Great Saphenous Above Knee: No superficial thrombophlebitis noted. Left Great Saphenous Below Knee: No superficial thrombophlebitis noted. Study Findings - Left Left sided additional findings: Enlarged lymph nodes detected in the left groin largest measuring, 1.87 x 0.875 cm. Flow detected. All LLE deep and superficial veins appear patent and compressible during time of exam. No sonographic evidence of thrombus seen. No prior exam for comparison. Additional Study Details Study performed at bedside. The study is technically adequate for diagnosis. The quality of the study is limited due to patient positioning and vein caliper. us Roxy Jimenez APRN CV VASCULAR ORDERABLES Final Result * ECHO COMPLETE W/ DOPPLER AND COLOR FLOW (10/28/2024 9:35 AM EDT) EF(MOD-bp) 37.8 % LVIDd 3.8 cm LVIDs 3.2 cm IVSd 1.10 cm LVPWd 1.10 cm FS 15.8 % IVS/LVPW 1.00 cm ESV(cubed) 32.8 ml EDV(cubed) 54.9 ml LV mass(C)d 134.7 grams LVOT area 3.1 cm2 LVOT diam 2.00 cm EDV(MOD-sp2) 59.7 ml EDV(MOD-sp4) 75.7 ml ESV(MOD-sp2) 39.9 ml ESV(MOD-sp4) 45.5 ml SV(MOD-sp2) 19.8 ml SV(MOD-sp4) 30.2 ml EF(MOD-sp2) 33.2 % EF(MOD-sp4) 39.9 % MV E max sonny 68.0 cm/sec MV dec time 0.17 sec IVRT 111.0 ms Med Peak E' Sonny 3.9 cm/sec Lat Peak E' Sonny 12.2 cm/sec TR max sonny 223.0 cm/sec Avg E/e' ratio 8.45 SV(LVOT) 29.4 ml RV Base 2.8 cm RV Mid 2.40 cm RV Length 6.4 cm TAPSE (>1.6) 1.13 cm RV S' 7.8 cm/sec LA dimension (2D) 3.5 cm LV V1 max 50.1 cm/sec LV V1 max PG 1.00 mmHg LV V1 mean PG 1.00 mmHg LV V1 VTI 9.4 cm Ao pk sonny 86.8 cm/sec Ao max PG 3.0 mmHg Ao mean PG 2.00 mmHg Ao V2 VTI 15.7 cm KRISTEN(I,D) 1.87 cm2 Dimensionless Index 0.60 (DI) AI P1/2t 627.6 msec MV max PG 2.33 mmHg MV mean PG 2.00 mmHg MV V2 VTI 13.4 cm MV P1/2t 97.3 msec MVA(P1/2t) 2.26 cm2 MVA(VTI) 2.19 cm2 MV dec slope 230.0 cm/sec2 TR max PG 19.9 mmHg PA V2 max 64.4 cm/sec PA acc time 0.08 sec Ao root diam 3.8 cm Ascending aorta 3.3 cm BH CV VAS BP RIGHT ARM 166/93 mmHg RVSP(TR) 28 mmHg RAP systole 8 mmHg Anatomical Region Laterality Modality Ultrasound Narrative 10/28/2024 5:29 PM EDT Left ventricular systolic function is moderately decreased. Calculated left ventricular EF = 37.8% Left ventricular ejection fraction appears to be 36 - 40%. Left ventricular diastolic function was indeterminate. Normal right ventricular cavity size and wall thickness noted. Mildly reduced right ventricular systolic function noted. 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 Consider contrasted echo imaging versus cardiac MRI for further characterization if clinically warranted. The left atrial cavity is mildly dilated. Mild mitral valve regurgitation is present. Mild aortic valve regurgitation is present. Mild dilation of the aortic root is present. The aortic root measures 3.8 cm. Left Ventricle Left ventricular systolic function is moderately decreased. Calculated left ventricular EF = 37.8% Left ventricular ejection fraction appears to be 36 - 40%. Normal left ventricular cavity size and wall thickness noted. There is left ventricular global hypokinesis noted. Left ventricular diastolic function was indeterminate. Right Ventricle Normal right ventricular cavity size and wall thickness noted. Mildly reduced right ventricular systolic function noted. 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 Consider contrast echo imaging versus cardiac MRI for further characterization if clinically warranted. Left Atrium The left atrial cavity is mildly dilated. Right Atrium Normal right atrial cavity size noted. The inferior vena cava is normally sized. The diameter of the inferior vena cava is 1.5 cm. Normal IVC inspiratory collapse of greater than 50% noted. Mitral Valve Mitral annular calcification is present. There is calcification of the mitral valve. Mild mitral valve regurgitation is present. No significant mitral valve stenosis is present. Tricuspid Valve The tricuspid valve is structurally normal with no significant stenosis present. Trace tricuspid valve regurgitation is present. Estimated right ventricular systolic pressure from tricuspid regurgitation is normal (<35 mmHg). Aortic Valve The aortic valve is abnormal in structure. There is calcification of the aortic valve. The aortic valve appears trileaflet. Mild aortic valve regurgitation is present. No aortic valve stenosis is present. Pulmonic Valve The pulmonic valve is structurally normal with no significant stenosis present. There is trace pulmonic valve regurgitation present. Pericardium There is no evidence of pericardial effusion. . There is evidence of a fat pad present. Greater Vessels Mild dilation of the aortic root is present. Aortic root = 3.8 cm No dilation of the ascending aorta is present. Study Quality The study is technically adequate for diagnosis. Atrial fibrillation was the predominant rhythm observed during the procedure. us Lamont Hernandez PA-C CV ECHO ORDERABLES Final Res ult * Basic Metabolic Panel (10/28/2024 8:42 AM EDT) Glucose 85 65 - 99 mg/dL 10/28/2024 9:56 AM EDT [facility] BUN 21.0 8.0 - 23.0 mg/dL 10/28/2024 9:56 AM EDT [facility] Creatinine 1.10 0.76 - 1.27 mg/dL 10/28/2024 9:56 AM EDT [facility] Sodium 140 136 - 145 mmol/L 10/28/2024 9:56 AM EDT [facility] Potassium 4.0 3.5 - 5.2 mmol/L 10/28/2024 9:56 AM EDT [facility] Chloride 104 98 - 107 mmol/L 10/28/2024 9:56 AM EDT [facility] CO2 24.0 22.0 - 29.0 mmol/L 10/28/2024 9:56 AM EDT [facility] Calcium 9.2 8.6 - 10.5 mg/dL 10/28/2024 9:56 AM EDT [facility] BUN/Creatinine Ratio 19.1 7.0 - 25.0 10/28/2024 9:56 AM EDT [facility] Anion Gap 12.0 5.0 - 15.0 mmol/L 10/28/2024 9:56 AM EDT [facility] eGFR 64.2 >60.0 mL/min/1.7 3 10/28/2024 9:56 AM EDT [facility] Blood Venipuncture / Unknown 10/28/2024 8:42 AM EDT 10/28/2024 9:09 AM EDT [facility] - 10/28/2024 9:56 AM EDT GFR Categories in Chronic Kidney Disease (CKD) GFR Category GFR (mL/min/1.73) Interpretation G1 90 or greater Normal or high (1) G2 60-89 Mild decrease (1) G3a 45-59 Mild to moderate decrease G3b 30-44 Moderate to severe decrease G4 15-29 Severe decrease G5 14 or less Kidney failure (1)In the absence of evidence of kidney disease, neither GFR category G1 or G2 fulfill the criteria for CKD. eGFR calculation 2020 CKD-EPI creatinine equation, which does not include race as a factor us Saeed Monique MD LAB BLOOD ORDERABLES Final Res ult [facility]
[address] [place] [address], * CBC (No Diff) (10/28/2024 8:42 AM EDT) WBC 4.81 3.40 - 10.80 10*3/mm3 10/28/2024 9:16 AM EDT [facility] RBC 5.42 4.14 - 5.80 10*6/mm3 10/28/2024 9:16 AM EDT [facility] Hemoglobin 14.9 13.0 - 17.7 g/dL 10/28/2024 9:16 AM EDT [facility] Hematocrit 43.1 37.5 - 51.0 % 10/28/2024 9:16 AM EDT [facility] MCV 79.5 79.0 - 97.0 fL 10/28/2024 9:16 AM EDT [facility] MCH 27.5 26.6 - 33.0 pg 10/28/2024 9:16 AM EDT [facility] MCHC 34.6 31.5 - 35.7 g/dL 10/28/2024 9:16 AM EDT [facility] RDW 15.1 12.3 - 15.4 % 10/28/2024 9:16 AM EDT [facility] RDW-SD 43.6 37.0 - 54.0 fl 10/28/2024 9:16 AM EDT [facility] MPV 10.9 6.0 - 12.0 fL 10/28/2024 9:16 AM EDT [facility] Platelets 168 140 - 450 10*3/mm3 10/28/2024 9:16 AM EDT [facility] Blood Venipuncture / Unknown 10/28/2024 8:42 AM EDT 10/28/2024 9:09 AM EDT Saeed Monique MD LAB BLOOD ORDERABLES Final Res ult [facility]
[address] [place] [address], * ECG 12 Lead QT Measurement (10/28/2024 12:32 AM EDT) [facility] QT Interval 398 ms ECG QTC Interval 484 ms ECG 10/28/2024 12:3 2 AM EDT 10/29/2024 6:41 AM EDT Narrative ECG - 10/29/2024 6:41 AM EDT Test Reason : QT Measurement Blood Pressure : */* mmHG Vent. Rate : 89 BPM Atrial Rate : 91 BPM P-R Int : * ms QRS Dur : 92 ms QT Int : 398 ms P-R-T Axes : * -4 30 degrees QTcB Int : 484 ms Atrial fibrillation Prolonged QT Abnormal ECG No previous ECGs available Confirmed by KD CHIU MD ([id number]) on 10/29/2024 6:41:44 AM Referred By: Confirmed By: KD CHIU MD Procedure Note Kd Chiu MD - 10/29/2024 Test Reason : QT Measurement Blood Pressure : */* mmHG Vent. Rate : 89 BPM Atrial Rate : 91 BPM P-R Int : * ms QRS Dur : 92 ms QT Int : 398 ms P-R-T Axes : * -4 30 degrees QTcB Int : 484 ms Atrial fibrillation Prolonged QT Abnormal ECG No previous ECGs available Confirmed by KD CHIU MD ([id number]) on 10/29/2024 6:41:44 AM Referred By: Confirmed By: KD CHIU MD us Gal Weiner PA-C ECG ORDERABLES Emma scott Result ECG * (ABNORMAL) Urinalysis, Microscopic Only - Urine, Clean Catch (10/28/2024 12:09 AM EDT) RBC, UA 0-2 None Seen, 0-2 /HPF 10/28/2024 2:13 AM EDT [facility] WBC, UA 0-2 None Seen, 0-2 /HPF 10/28/2024 2:13 AM EDT [facility] Comment:Urine culture not in dicated. Bacteria, UA 1+(A) None Seen /HPF 10/28/2024 2:13 AM EDT [facility] Squamous Epithelial Cells, UA 0-2 None Seen, 0-2 /HPF 10/28/2024 2:13 AM EDT [facility] Hyaline Casts, UA None Seen None Seen /LPF 10/28/2024 2:13 AM EDT [facility] Methodology Manual Light Microscopy 10/28/2024 2:13 AM EDT [facility] Urine Urine specimen obtained by clean catch procedure / Unknown Collection / Unknown 10/28/2024 12:09 AM EDT 10/28/2024 1:00 AM EDT Gal Weiner PA-C URINE ORDERABLES Fin al Result [facility]
[address] [place] [address], * (ABNORMAL) Urinalysis With Culture If Indicated - Urine, Clean Catch (10/28/2024 12:09 AM EDT) Color, UA Yellow Yellow, Straw 10/28/2024 1:18 AM EDT [facility] Appearance, UA Clear Clear 10/28/2024 1:18 AM EDT [facility] pH, UA 8.0 5.0 - 8.0 10/28/2024 1:18 AM EDT [facility] Specific [employer], UA 1.013 1.005 - 1.030 10/28/2024 1:18 AM EDT [facility] Glucose, UA Negative Negative 10/28/2024 1:18 AM EDT [facility] Ketones, UA Negative Negative 10/28/2024 1:18 AM EDT [facility] Bilirubin, UA Negative Negative 10/28/2024 1:18 AM EDT [facility] Blood, UA Negative Negative 10/28/2024 1:18 AM EDT [facility] Protein, UA 30 mg/dL (1+)(A) Negative 10/28/2024 1:18 AM EDT [facility] Leuk Esterase, UA Trace(A) Negative 10/28/2024 1:18 AM EDT [facility] Nitrite, UA Negative Negative 10/28/2024 1:18 AM EDT [facility] Urobilinogen, UA 1.0 E.U./dL 0.2 - 1.0 E.U./dL 10/28/2024 1:18 AM EDT [facility] Urine Urine specimen obtained by clean catch procedure / Unknown Collection / Unknown 10/28/2024 12:09 AM EDT 10/28/2024 1:00 AM EDT Narrative [facility] - 10/28/2024 1:18 AM EDT In absence of clinical symptoms, the presence of pyuria, bacteria, and/or nitrites on the urinalysis result does not correlate with infection. Gal Weiner PA-C URINE ORDERABLES Fin al Result Performing Organization Address [facility]/ZIP Co de Phone Number [facility]
[address] [place] [address], * Magnesium (10/27/2024 11:54 PM EDT) Magnesium 2.2 1.6 - 2.4 mg/dL 10/28/2024 12:35 AM EDT [facility] Blood Venipuncture / Unknown 10/27/2024 11:54 PM EDT 10/28/2024 12:04 AM EDT Gal Weiner PA-C LAB BLOOD ORDERABLES Final Result Performing Organization Address City/[facility] Co de Phone Number [facility]
[address] [place] [address], * (ABNORMAL) CBC Auto Differential (10/27/2024 11:54 PM EDT) WBC 5.07 3.40 - 10.80 10*3/mm3 10/28/2024 12:10 AM EDT [facility] RBC 5.20 4.14 - 5.80 10*6/mm3 10/28/2024 12:10 AM EDT [facility] Hemoglobin 14.6 13.0 - 17.7 g/dL 10/28/2024 12:10 AM EDT [facility] Hematocrit 41.5 37.5 - 51.0 % 10/28/2024 12:10 AM [facility] MCV 79.8 79.0 - 97.0 fL 10/28/2024 12:10 AM [facility] MCH 28.1 26.6 - 33.0 pg 10/28/2024 12:10 AM [facility] MCHC 35.2 31.5 - 35.7 g/dL 10/28/2024 12:10 AM [facility] RDW 15.6(H) 12.3 - 15.4 % 10/28/2024 12:10 AM [facility] RDW-SD 44.8 37.0 - 54.0 fl 10/28/2024 12:10 AM [facility] MPV 10.3 6.0 - 12.0 fL 10/28/2024 12:10 AM [facility] Platelets 161 140 - 450 10*3/mm3 10/28/2024 12:10 AM [facility] Neutrophil % 33.3(L) 42.7 - 76.0 % 10/28/2024 12:10 AM [facility] Lymphocyte % 43.6 19.6 - 45.3 % 10/28/2024 12:10 AM [facility] Monocyte % 17.4(H) 5.0 - 12.0 % 10/28/2024 12:10 AM [facility] Eosinophil % 4.3 0.3 - 6.2 % 10/28/2024 12:10 AM [facility] Basophil % 1.0 0.0 - 1.5 % 10/28/2024 12:10 AM [facility] Immature Grans % 0.4 0.0 - 0.5 % 10/28/2024 12:10 AM [facility] Neutrophils, Absolute 1.69(L) 1.70 - 7.00 10*3/mm3 10/28/2024 12:10 AM [facility] Lymphocytes, Absolute 2.21 0.70 - 3.10 10*3/mm3 10/28/2024 12:10 AM EDT [facility] Monocytes, Absolute 0.88 0.10 - 0.90 10*3/mm3 10/28/2024 12:10 AM EDT [facility] Eosinophils, Absolute 0.22 0.00 - 0.40 10*3/mm3 10/28/2024 12:10 AM EDT [facility] Basophils, Absolute 0.05 0.00 - 0.20 10*3/mm3 10/28/2024 12:10 AM EDT [facility] Immature Grans, Absolute 0.02 0.00 - 0.05 10*3/mm3 10/28/2024 12:10 AM EDT [facility] nRBC 0.0 0.0 - 0.2 /100 WBC 10/28/2024 12:10 AM EDT [facility] Blood Venipuncture / Unknown 10/27/2024 11:54 PM EDT 10/28/2024 12:08 AM EDT Gal Weiner PA-C LAB BLOOD ORDERABLES Final Result [facility]
[address] [place] [address], * Lactic Acid, Plasma (10/27/2024 11:54 PM EDT) [facility] Signature Lactate 1.3 0.5 - 2.0 mmol/L 10/28/2024 12:32 AM EDT [facility] Comment:Falsely depressed re sults may occur on samples drawn from patients receiving N-Acetylcysteine (NAC) or Metamizole. Blood Venipuncture / Unknown 10/27/2024 11:54 PM EDT 10/28/2024 12:04 AM EDT Gal Weiner PA-C LAB BLOOD ORDERABLES Final Result [facility]
[address] [place] [address], * (ABNORMAL) Comprehensive Metabolic Panel (10/27/2024 11:54 PM EDT) [facility] Glucose 80 65 - 99 mg/dL 10/28/2024 12:35 AM EDT [facility] BUN 21.7 8.0 - 23.0 mg/dL 10/28/2024 12:35 AM EDT [facility] Creatinine 1.08 0.76 - 1.27 mg/dL 10/28/2024 12:35 AM EDT [facility] Sodium 137 136 - 145 mmol/L 10/28/2024 12:35 AM EDT [facility] Potassium 4.1 3.5 - 5.2 mmol/L 10/28/2024 12:35 AM EDT [facility] Chloride 103 98 - 107 mmol/L 10/28/2024 12:35 AM EDT [facility] CO2 19.8(L) 22.0 - 29.0 mmol/L 10/28/2024 12:35 AM EDT [facility] Calcium 9.4 8.6 - 10.5 mg/dL 10/28/2024 12:35 AM EDT [facility] Total Protein 7.5 6.0 - 8.5 g/dL 10/28/2024 12:35 AM EDT [facility] Albumin 4.3 3.5 - 5.2 g/dL 10/28/2024 12:35 AM EDT [facility] ALT (SGPT) 23 1 - 41 U/L 10/28/2024 12:35 AM EDT [facility] AST (SGOT) 29 1 - 40 U/L 10/28/2024 12:35 AM EDT [facility] Alkaline Phosphatase 71 39 - 117 U/L 10/28/2024 12:35 AM EDT [facility] Total Bilirubin 0.4 0.0 - 1.2 mg/dL 10/28/2024 12:35 AM EDT [facility] Globulin 3.2 gm/dL 10/28/2024 12:35 AM EDT [facility] Comment:Calculated Result A/G Ratio 1.3 g/dL 10/28/2024 12:35 AM EDT [facility] BUN/Creatinine Ratio 20.1 7.0 - 25.0 10/28/2024 12:35 AM EDT [facility] Anion Gap 14.2 5.0 - 15.0 mmol/L 10/28/2024 12:35 AM EDT [facility] eGFR 65.6 >60.0 mL/min/1.7 3 10/28/2024 12:35 AM EDT [facility] Blood Venipuncture / Unknown 10/27/2024 11:54 PM EDT 10/28/2024 12:04 AM EDT [facility] - 10/28/2024 12:35 AM EDT GFR Categories in Chronic Kidney Disease (CKD) GFR Category GFR (mL/min/1.73) Interpretation G1 90 or greater Normal or high (1) G2 60-89 Mild decrease (1) G3a 45-59 Mild to moderate decrease G3b 30-44 Moderate to severe decrease G4 15-29 Severe decrease G5 14 or less Kidney failure (1)In the absence of evidence of kidney disease, neither GFR category G1 or G2 fulfill the criteria for CKD. eGFR calculation 2020 CKD-EPI creatinine equation, which does not include race as a factor Gal Weiner PA-C LAB BLOOD ORDERABLES Final Result [facility]
[address] [place] [address], * MRI Brain Without Contrast (10/27/2024 7:22 PM EDT) Anatomical Region Laterality Modality Head, Neck N/A Magnetic Resonan ce 10/27/2024 10:1 5 PM EDT Impressions 10/27/2024 10:17 PM EDT Impression: Advanced chronic and age-related changes are noted as above. There is otherwise no evidence of acute infarct, hemorrhage, mass or mass effect. Electronically Signed: Saulo Romo MD 10/27/2024 10:17 PM EDT Workstation ID: [id number] Narrative 10/27/2024 10:17 PM EDT MRI BRAIN WO CONTRAST Date of Exam: 10/27/2024 6:49 PM EDT Indication: Stroke, follow up Left facial droop, dysarthria, left-sided weakness. Comparison: None available. Technique: Routine multiplanar/multisequence sequence images of the brain were obtained without contrast administration. Findings: No acute infarct is present on diffusion weighted sequences. Midline structures are normal and the craniocervical junction appears satisfactory. Age-related changes are present with relatively advanced generalized volume loss and typical pontine and periventricular leukomalacia. There are also some areas of more focal cortical volume loss and underlying gliosis such as in the right frontal lobe with the appearance of prior infarct. There is otherwise no evidence of intracranial hemorrhage, mass or mass effect. There is ex vacuo prominence of the ventricles and sulci. The orbits are normal. The paranasal sinuses are grossly clear. Procedure Note Guero Romo MD - 10/27/2024 MRI BRAIN WO CONTRAST Date of Exam: 10/27/2024 6:49 PM EDT Indication: Stroke, follow up Left facial droop, dysarthria, left-sided weakness. Comparison: None available. Technique: Routine multiplanar/multisequence sequence images of the brainwere obtained without contrast administration. Findings: No acute infarct is present on diffusion weighted sequences. Midlinestructures are normal and the craniocervical junction appearssatisfactory. Age-related changes are present with relatively advancedgeneralized volume loss and typical pontine and periventricular leukomalacia. There are also some areas of more focalcortical volume loss and underlying gliosis such as in the right frontallobe with the appearance of prior infarct. There is otherwise no evidenceof intracranial hemorrhage, mass or mass effect. There is ex vacuo prominence of the ventricles and sulci. Theorbits are normal. The paranasal sinuses are grossly clear. IMPRESSION: Impression: Advanced chronic and age-related changes are noted as above. There isotherwise no evidence of acute infarct, hemorrhage, mass or mass effect. Electronically Signed: Saulo Romo MD 10/27/2024 10:17 PM EDT Workstation ID: [id number] us Lamont Hernandez PA-C IMG MRI ORDERABLES Final Res ult * POC Glucose Once (10/27/2024 5:38 PM EDT) Glucose 117 70 - 130 mg/dL 10/27/2024 5:39 PM EDT [facility] Blood 10/27/2024 5:38 PM EDT 10/27/2024 5:39 PM EDT Saeed Monique MD POINT OF CARE TEST ORDERABLES Final Result Performing Organization Address [facility] Co de Phone Number [facility]
[address] [place] [address], [place] [phone] * Fentanyl, Urine - Urine, Clean Catch (10/27/2024 3:18 PM EDT) Fentanyl, Urine Negative Negative 10/27/2024 4:39 PM EDT [facility] Urine Urine specimen obtained by clean catch procedure / Unknown Collection / Unknown 10/27/2024 3:18 PM EDT 10/27/2024 3:27 PM EDT Narrative [facility] - 10/27/2024 4:39 PM EDT Negative Threshold: Fentanyl 5 ng/mL The normal value for the drug tested is negative. This report includes final unconfirmed screening results to be used for medical treatment purposes only. Unconfirmed results must not be used for non-medical purposes such as employment or legal testing. Clinical consideration should be applied to any drug of abuse test, particularly when unconfirmed results are used. us Saeed Monique MD URINE ORDERABLES Final Result Performing Organization Address [facility] Co de Phone Number [facility]
[address] [place] [address], * Urine Drug Screen - Urine, Clean Catch (10/27/2024 3:18 PM EDT) [facility] THC, Screen, Urine Negative Negative 2024 4:17 PM EDT [facility] Phencyclidine (PCP), Urine Negative Negative 10/27/2024 4:17 PM EDT [facility] Cocaine Screen, Urine Negative Negative 10/27/2024 4:17 PM EDT [facility] Methamphetamine, Ur Negative Negative 10/27 4:17 PM EDT [facility] Opiate Screen Negative Negative 10/27/2024 4:17 PM EDT [facility] Amphetamine Screen, Urine Negative Negative 10/27/2024 4:17 PM EDT [facility] Benzodiazepine Screen, Urine Negative Negative 10/27/2024 4:17 PM EDT [facility] Tricyclic Antidepressants Screen Negative Negative 10/27/2024 4:17 PM EDT [facility] Methadone Screen, Urine Negative Negative 10/27/2024 4:17 PM EDT [facility] Barbiturates Screen, Urine Negative Negative 10/27/2024 4:17 PM EDT [facility] Oxycodone Screen, Urine Negative Negative 10/27/2024 4:17 PM EDT [facility] Buprenorphine, Screen, Urine Negative Negative 10/27/2024 4:17 PM EDT [facility] Urine Urine specimen obtained by clean catch procedure / Unknown Collection / Unknown 10/27/2024 3:18 PM EDT 10/27/2024 3:27 PM EDT [facility] - 10/27/2024 4:17 PM EDT Cutoff For Drugs Screened: Amphetamines 500 ng/ml Barbiturates 200 ng/ml Benzodiazepines 150 ng/ml Cocaine 150 ng/ml Methadone 200 ng/ml Opiates 100 ng/ml Phencyclidine 25 ng/ml THC 50 ng/ml Methamphetamine 500 ng/ml Tricyclic Antidepressants 300 ng/ml Oxycodone 100 ng/ml Buprenorphine 10 ng/ml The normal value for all drugs tested is negative. This report includes unconfirmed screening results, with the cutoff values listed, to be used for medical treatment purposes only. Unconfirmed results must not be used for non-medical purposes such as employment or legal testing. Clinical consideration should be applied to any drug of abuse test, particularly when unconfirmed results are used. Saeed Monique MD URINE ORDERABLES Final Result Performing Organization Address [facility] Co de Phone Number [facility]
[address] [place] [address], * EEG AWAKE OR DROWSY PORTABLE (10/27/2024 12:15 PM EDT) Narrative NEUROLOGY - 10/27/2024 2:48 PM EDT History: 89 y old male , AMS. r/o seizure Procedure: A digital electroencephalogram was performed in the Clinical Neurophysiology Laboratory. The 10/20 International System of electrode placement was used and both Bipolar and referential electrode montages were monitored. EEG Description: This EEG is continuous and symmetrical. During the awake state with eye closed, there is a posterior dominate rhythm of -9- Hz that is symmetrical and reacts appropriately to eye opening. Anterior to posterior amplitude frequency gradient is preserved. With Drowsiness, there is waxing and waning of the posterior dominant rhythm with eventual replacement by a mixture of beta, alpha and theta activity. Photic stimulation using a stepwise increase in photic frequency, results in driving response but no activation of epileptiform activity. A prolonged Lead I EKG rhythm strip revealed heart rate at --70--/min Interpretation: This EEG obtained in the awake and drowsy state is normal for age. Clinical correlation: The diagnosis of epilepsy is clinical one. A normal EEG dose not excludes this Diagnosis. However there are no epileptiform features in this recording to suggest an underlining diagnosis of Epilepsy. Therefore, Clinical correlation is recommended. Roxy Muñozpayamcarson CLAUDIA NEUROLOGY ORDERABLES Fi nal Result Performing Organization Address [facility]/ZIP Co de Phone Number NEUROLOGY * POC Glucose Once (10/27/2024 11:15 AM EDT) Glucose 82 70 - 130 mg/dL 10/27/2024 11:16 AM EDT [facility] Blood 10/27/2024 11:1 5 AM EDT 10/27/2024 11:16 AM EDT Saeed Monique MD POINT OF CARE TEST ORDERABLES Final Result [facility]
[address] [place] [address], * Lipid Panel (10/27/2024 9:46 AM EDT) Total Cholesterol 138 0 - 200 mg/dL 10/27/2024 11:15 AM EDT [facility] Triglycerides 42 0 - 150 mg/dL 10/27/2024 11:15 AM EDT [facility] HDL Cholesterol 56 40 - 60 mg/dL 10/27/2024 11:15 AM EDT [facility] LDL Cholesterol 72 0 - 100 mg/dL 10/27/2024 11:15 AM EDT [facility] VLDL Cholesterol 10 5 - 40 mg/dL 10/27/2024 11:15 AM EDT [facility] LDL/HDL Ratio 1.31 10/27/2024 11:15 AM EDT [facility] Blood Venipuncture / Unknown 10/27/2024 9:46 AM EDT 10/27/2024 10:39 AM EDT [facility] - 10/27/2024 11:15 AM EDT Cholesterol Reference Ranges (U.S. Department of Health and Human Services ATP III Classifications) Desirable <200 mg/dL Borderline High 200-239 mg/dL High Risk >240 mg/dL Triglyceride Reference Ranges (U.S. Department of Health and Human Services ATP III Classifications) Normal <150 mg/dL Borderline High 150-199 mg/dL High 200-499 mg/dL Very High >500 mg/dL HDL Reference Ranges (U.S. Department of Health and Human Services ATP III Classifications) Low <40 mg/dl (major risk factor for CHD) High >60 mg/dl ('negative' risk factor for CHD) LDL Reference Ranges (U.S. Department of Health and Human Services ATP III Classifications) Optimal <100 mg/dL Near Optimal 100-129 mg/dL Borderline High 130-159 mg/dL High 160-189 mg/dL Very High >189 mg/dL LDL is calculated using the NIH LDL-C calculation. Lamont Hernandez PA-C LAB BLOOD ORDERABLES Final R esult Performing Organization Address City/[facility] Co de Phone Number [facility]
[address] [place] [address], * Hemoglobin A1c (10/27/2024 9:46 AM EDT) Hemoglobin A1C 5.33 4.80 - 5.60 % 10/27/2024 12:28 PM EDT [facility] Blood Venipuncture / Unknown 10/27/2024 9:46 AM EDT 10/27/2024 10:40 AM EDT Narrative [facility] - 10/27/2024 12:28 PM EDT Hemoglobin A1C Ranges: Increased Risk for Diabetes 5.7% to 6.4% Diabetes >= 6.5% Diabetic Goal < 7.0% Lamont Hernandez PA-C LAB BLOOD ORDERABLES Final R esult Performing Organization Address City/[facility]/ZIP Co de Phone Number [facility]
[address] [place] [address], * POC Glucose Once (10/27/2024 1:03 AM EDT) Glucose 97 70 - 130 mg/dL 10/27/2024 1:03 AM EDT [facility] Blood 10/27/2024 1:03 AM EDT 10/27/2024 1:03 AM EDT us Thien Becker MD POINT OF CARE TEST ORDERABLES F inal Result Performing Organization Address [facility]/ZIP Co de Phone Number [facility]
[address] [place] [address], * Lactic Acid, Plasma (10/26/2024 11:21 PM EDT) Lactate 1.0 0.5 - 2.0 mmol/L 10/27/2024 12:03 AM EDT [facility] Comment:Falsely depressed re sults may occur on samples drawn from patients receiving N-Acetylcysteine (NAC) or Metamizole. Blood Venipuncture / Unknown 10/26/2024 11:21 PM EDT 10/26/2024 11:34 PM EDT May Nilay-Aristides [employer] LAB BLOOD ORDERABLES Fi nal Result Performing Organization Address [facility] Co de Phone Number [facility]
[address] [place] [address], * (ABNORMAL) CK (10/26/2024 11:21 PM EDT) Creatine Kinase 245(H) 20 - 200 U/L 10/27/2024 12:01 AM EDT [facility] Blood Venipuncture / Unknown 10/26/2024 11:21 PM EDT 10/26/2024 11:34 PM EDT us August Mary Katem-Momelanieafa [employer]INE [employer] INSTRUCTOR LAB BLOOD ORDERABLES Fi nal Result Performing Organization Address City/[facility] Co de Phone Number [facility]
[address] [place] [address], [place] [phone] * CT Outside Head (10/26/2024 12:10 AM EDT) Narrative SYSTEMGENERATED, DOCUMENTATION - 10/30/2024 4:07 PM EDT This procedure was auto-finalized with no dictation required. us [facility] Outside Films IMG CT ORDERABLES Final Re sult * CT Outside Head (10/26/2024 12:05 AM EDT) Narrative SYSTEMGENERATED, DOCUMENTATION - 10/30/2024 4:01 PM EDT This procedure was auto-finalized with no dictation required. us [employer] Outside Films IMG CT ORDERABLES Final Re sult * CT Outside Neck (10/26/2024 12:00 AM EDT) Narrative SYSTEMGENERATED, DOCUMENTATION - 10/30/2024 3:59 PM EDT This procedure was auto-finalized with no dictation required. us Radiant Outside Films IMG CT ORDERABLES Final Re sult * IMAGING SCANNED (10/26/2024) Anatomical Region Laterality Modality Radiographic Guillermina ging [facility] IMG DIAGNOSTIC IMAGING ORDERA BLES Final Result documented in this encounter Visit Diagnoses Diagnosis Stroke-like symptoms- Primary Esophageal dysphagia Dysphagia, pharyngoesophageal phase Dysphagia, unspecified type Cognitive communication deficit Essential hypertension Unspecified essential hypertension Mixed hyperlipidemia Dementia Other persistent mental disorders due to conditions classified elsewhere A-fib Atrial fibrillation CHF (congestive heart failure) Congestive heart failure, unspecified BPH (benign prostatic hyperplasia) Unspecified hyperplasia of prostate without urinary obstruction and other lower urinary tract symptoms (LUTS) documented in this encounter Admitting Diagnoses Diagnosis Stroke-like symptoms documented in this encounter Administered Medications Inactive Administered Medications - up to 3 most recent administrations Medication Order MAR Action Action Date Dose Rate Site amLODIPine (NORVASC) tablet 5 mg 5 mg, Oral, Every 24 Hours Scheduled, First dose on 10/28/24 at 1415, Hold for SBP less than 100, DBP less than 60. Caution: Look alike/sound alike drug alert. Avoid grapefruit juice. Given 10/29/2024 11:01 AM EDT 5 mg Given 10/28/2024 1:49 PM EDT 5 mg aspirin chewable tablet 81 mg 81 mg, Oral, Daily, First dose on Tue10/26/24 at 2000, If patient fails dysphagia, NV option MUST be given. Do not exceed 4 grams of aspirin in a 24 hr period. If given for pain, use the following pain scale: Mild Pain = Pain Score of 1-3, CPOT 1-2 Moderate Pain = Pain Score of 4-6, CPOT 3-4 Severe Pain = Pain Score of 7-10, CPOT 5-8 Given 11/02/2024 1:00 PM EDT 81 mg Given 11/01/2024 8:10 AM EDT 81 mg Given 10/31/2024 9:00 AM EDT 81 mg aspirin suppository 300 mg 300 mg, Rectal, Daily, First dose on Tue10/26/24 at 1999, If patient fails dysphagia, NV option MUST be given. Do not exceed 4 grams of aspirin in a 24 hr period. If given for pain, use the following pain scale: Mild Pain = Pain Score of 1-3, CPOT 1-2 Moderate Pain = Pain Score of 4-6, CPOT 3-4 Severe Pain = Pain Score of 7-10, CPOT 5-8 Given 10/27/2024 3:01 PM EDT 300 mg Given 10/27/2024 12:56 AM EDT 300 mg atorvastatin (LIPITOR) tablet 40 mg 40 mg, Oral, Nightly, First dose (after last modification) on Tue10/27/24 at 2100, Avoid grapefruit juice. Given 11/01/2024 8:20 PM EDT 40 mg Given 10/31/2024 10:05 PM EDT 40 mg Given 10/30/2024 8:00 PM EDT 40 mg carvedilol (COREG) tablet 6.25 mg 6.25 mg, Oral, 2 Times Daily With Meals, First dose on Tue10/29/24 at 1800, Hold for SBP less than 100, DBP less than 60, or heart rate less than 50. If a dose is held, please contact the provider. Give with food. Given 11/02/2024 1:00 PM EDT 6.25 mg Given 11/01/2024 5:59 PM EDT 6.25 mg Given 11/01/2024 8:10 AM EDT 6.25 mg hydrOXYzine (ATARAX) tablet 10 mg 10 mg, Oral, Once, On Tue10/28/24 at 0130, For 1 dose, Caution: Look alike/sound alike drug alert Given 10/28/2024 1:08 AM EDT 10 mg hydrOXYzine (ATARAX) tablet 10 mg 10 mg, Oral, Once, On Tue10/30/24 at 2215, For 1 dose, Caution: Look alike/sound alike drug alert Given 10/30/2024 9:33 PM EDT 10 mg ipratropium-albuterol (DUO-NEB) nebulizer solution 3 mL 3 mL, Nebulization, Every 6 Hours PRN, Shortness of Air, Starting on Tue10/26/24 at 1924, Include Respiratory Treatment Education lactated ringers infusion 9 mL/hr, Intravenous, Continuous, Starting on Tue10/30/24 at 0600, For 1 day, May switch to NS IV at [facility] if renal / if indicated Currently Infusing 10/30/2024 5:35 AM EDT 9 mL/hr 9 mL/hr losartan (COZAAR) tablet 25 mg 25 mg, Oral, Every 24 Hours Scheduled, First dose on Tue11/01/24 at 1100, Hold for SBP less than 100, DBP less than 60. Given 11/02/2024 1:01 PM EDT 25 mg Given 11/01/2024 11:47 AM EDT 25 mg melatonin tablet 5 mg 5 mg, Oral, Nightly PRN, Sleep, Starting on 10/27/24 at 2348 Given 11/01/2024 8:20 PM EDT 5 mg Given 10/28/2024 7:39 PM EDT 5 mg Given 10/28/2024 1:08 AM EDT 5 mg pantoprazole (PROTONIX) EC tablet 40 mg 40 mg, Oral, Every [employer], First dose on Tue11/01/24 at 0600, Do not crush or chew the capsules or tablets. The drug may not work as designed if the capsule or tablet is crushed or chewed. Swallow whole. Swallow whole; do not crush, split, or chew. Given 11/02/2024 5:58 AM EDT 40 mg Given 11/01/2024 6:02 AM EDT 40 mg pantoprazole (PROTONIX) injection 40 mg 40 mg, Intravenous, 2 Times Daily Before Meals, First dose on Tue10/28/24 at 1730, Dilute with 10 mL of 0.9% NaCl and give IV push over 2 minutes., Indications: Gastroesophageal Reflux DiseaseIndications:Gastroesophageal Reflux Disease Given 10/29/2024 7:53 AM EDT 40 mg Given 10/28/2024 6:21 PM EDT 40 mg pantoprazole (PROTONIX) injection 40 mg 40 mg, Intravenous, Every [employer], First dose (after last modification) on Tue10/30/24 at 0600, Dilute with 10 mL of 0.9% NaCl and give IV push over 2 minutes., Indications: Gastroesophageal Reflux DiseaseIndications:Gastroesophageal Reflux Disease Given 10/31/2024 5:28 AM EDT 40 mg Given 10/30/2024 6:02 AM EDT 40 mg sodium chloride 0.9 % flush 10 mL 10 mL, Intravenous, Every 12 Hours Scheduled, First dose on Tue10/26/24 at 2100 Given 11/01/2024 8:20 PM EDT 10 mL Given 11/01/2024 9:15 AM EDT 10 mL Given 10/31/2024 10:05 PM EDT 10 mL sodium chloride 0.9 % flush 10 mL 10 mL, Intravenous, As Needed, Line Care, Starting on Tue10/26/24 at 1907 sodium chloride 0.9 % infusion 40 mL 40 mL, Intravenous, at 100 mL/hr, As Needed, Line Care, Starting on Tue10/26/24 at 1907, Following administration of an IV intermittent medication, flush line with 40mL NS at 100mL/hr. documented in this encounter Active and Recently Administered Medications Times are shown in EDT. Scheduled Medication Order 10/31/2024 11/01/2024 11/02/2024 aspirin chewable tablet 81 mg(Linked Group 1) 81 mg, Oral, Daily, First dose on Tue10/26/24 at 2000, If patient fails dysphagia, NV option MUST be given. Do not exceed 4 grams of aspirin in a 24 hr period. If given for pain, use the following pain scale: Mild Pain = Pain Score of 1-3, CPOT 1-2 Moderate Pain = Pain Score of 4-6, CPOT 3-4 Severe Pain = Pain Score of 7-10, CPOT 5-8 0900 (Given - Provider: Jeanne Snider RN) 0810 (Given - Provider: Jillian Kiser, RN) 1300 (Given - Provider: Ronnie Carter, RN) aspirin suppository 300 mg(Linked Group 1) 300 mg, Rectal, Daily, First dose on Tue10/26/24 at 2000, If patient fails dysphagia, NV option MUST be given. Do not exceed 4 grams of aspirin in a 24 hr period. If given for pain, use the following pain scale: Mild Pain = Pain Score of 1-3, CPOT 1-2 Moderate Pain = Pain Score of 4-6, CPOT 3-4 Severe Pain = Pain Score of 7-10, CPOT 5-8 0900 (Not Given: See Alt - Provider: Jeanne Snider RN) 0810 (Not Given: See Alt - Provider: Jillian Kiser RN) 1300 (Not Given: See Alt - Provider: Ronnie Carter RN) atorvastatin (LIPITOR) tablet 40 mg 40 mg, Oral, Nightly, First dose (after last modification) on 10/27/24 at 2100, Avoid grapefruit juice. 2205 (Given - Provider: Niru Ariza RN) 2019 (Given - Provider: Amita Decker RN) carvedilol (COREG) tablet 6.25 mg 6.25 mg, Oral, 2 Times Daily With Meals, First dose on 10/29/24 at 1800, Hold for SBP less than 100, DBP less than 60, or heart rate less than 50. If a dose is held, please contact the provider. Give with food. 0900 (Given - Provider: Jeanne Snider RN)1738 (Given - Provider: Jeanne Snider RN) 0810 (Given - Provider: Jillian Kiser, RN)1759 (Given - Provider: Jillian Kiser, RN) 1300 (Given - Provider: Ronnie Carter, AVILA) losartan (COZAAR) tablet 25 mg 25 mg, Oral, Every 24 Hours Scheduled, First dose on Nataly 11/01/24 at 1100, Hold for SBP less than 100, DBP less than 60. 1147 (Given - Provider: Jillian Kiser, RN) 1301 (Given - Provider: Ronnie Carter, AVILA) pantoprazole (PROTONIX) EC tablet 40 mg 40 mg, Oral, Every [employer], First dose on Tue11/01/24 at 0600, Do not crush or chew the capsules or tablets. The drug may not work as designed if the capsule or tablet is crushed or chewed. Swallow whole. Swallow whole; do not crush, split, or chew. 0602 (Given - Provider: Niru Ariza RN) 0558 (Given - Provider: Amita Decker, AVILA) pantoprazole (PROTONIX) injection 40 mg (CANCELED) 40 mg, Intravenous, Every [employer], First dose (after last modification) on Tue10/30/24 at 0600, Dilute with 10 mL of 0.9% NaCl and give IV push over 2 minutes., Indications: Gastroesophageal Reflux Disease 0528 (Given - Provider: Elmer Browne RN) sodium chloride 0.9 % flush 10 mL 10 mL, Intravenous, Every 12 Hours Scheduled, First dose on Tue10/26/24 at 2100 0900 (Given - Provider: Jeanne Snider, AVILA)220 (Given - Provider: Niru Ariza, AVILA) 0915 (Given - Provider: Jillian Kiser RN)2019 (Given - Provider: Amita Decker, AVILA) 1312 (Not Given - Provider: Ronnie Carter, AVILA - Reason: Patient/family refused) PRN Medication Order 10/31/2024 11/01/2024 11/02/2024 ipratropium-albuterol (DUO-NEB) nebulizer solution 3 mL 3 mL, Nebulization, Every 6 Hours PRN, Shortness of Air, Starting on Tue10/26/24 at 1924, Include Respiratory Treatment Education melatonin tablet 5 mg 5 mg, Oral, Nightly PRN, Sleep, Starting on Tue10/27/24 at 2348 2020 (Given - Provider: Joel Decker, AVILA) sodium chloride 0.9 % flush 10 mL 10 mL, Intravenous, As Needed, Line Care, Starting on Tue10/26/24 at 1907 sodium chloride 0.9 % infusion 40 mL 40 mL, Intravenous, at 100 mL/hr, As Needed, Line Care, Starting on Tue10/26/24 at 1907, Following administration of an IV intermittent medication, flush line with 40mL NS at 100mL/hr. Linked Groups Order Group 1: aspirin chewable tablet 81 mgJump to med 81 mg, Oral, Daily, First dose on Tue10/26/24 at 1999, If patient fails dysphagia, NV option MUST be given. Do not exceed 4 grams of aspirin in a 24 hr period. If given for pain, use the following pain scale: Mild Pain = Pain Score of 1-3, CPOT 1-2 Moderate Pain = Pain Score of 4-6, CPOT 3-4 Severe Pain = Pain Score of 7-10, CPOT 5-8 Or aspirin suppository 300 mgJump to med 300 mg, Rectal, Daily, First dose on Tue10/26/24 at 1999, If patient fails dysphagia, NV option MUST be given. Do not exceed 4 grams of aspirin in a 24 hr period. If given for pain, use the following pain scale: Mild Pain = Pain Score of 1-3, CPOT 1-2 Moderate Pain = Pain Score of 4-6, CPOT 3-4 Severe Pain = Pain Score of 7-10, CPOT 5-8 documented in this encounter Care Teams Control Room Helper Relationship Specialty Start Date End Date Provider, [place] [address] PCP - General 10/26/24 documented as of this encounter
--- OUTSIDE RECORDS SUMMARY | 2024-10-26 19:03 | XMS_ITS | Encounter Summary ---
Author Organization [facility] Address [address] [place] [address] Care Team Providers Care Syrup Blender Name Role Phone Provider, No Known Primary Care Provider Unavail able Reason for Referral * MRI/CAT/PET Scan (Routine) - Pending Review Specialty Diagnoses / Procedures Referred By Contac t Referred To Contact Procedures CT Outside Head Films, Radiant Outside Referral ID Status Reason Start Date Expiration Date V isits Requested Visits Authorized [id number] Pending Review 10/30/2024 01/29/2026 1 1 * MRI/CAT/PET Scan (Routine) - Pending Review Specialty Diagnoses / Procedures Referred By Contac t Referred To Contact Procedures CT Outside Head Films, Radiant Outside Referral ID Status Reason Start Date Expiration Date V isits Requested Visits Authorized [id number] Pending Review 10/30/2024 01/29/2026 1 1 * MRI/CAT/PET Scan (Routine) - Pending Review Specialty Diagnoses / Procedures Referred By Contac t Referred To Contact Procedures CT Outside Neck Films, Radiant Outside Referral ID Status Reason Start Date Expiration Date V isits Requested Visits Authorized [id number] Pending Review 10/30/2024 01/29/2026 1 1 Reason for Visit * Auth/Cert Specialty Diagnoses / Procedures Referred By Contac t Referred To Contact Diagnoses Cerebrovascular Accident CVA Referral ID Status Reason Start Date Expiration Date Visits Re quested Visits Authorized [id number] 1 1 Encounter Details Date Type Department Care Team (Late st Contact Info) Description 10/26/2024 7:03 PM EDT - 11/02/2024 3:14 PM EDT Hospital Encounter [facility] [address]F [address] [place] [id number] Areli Nguyen MD [address] [facility] [address] [place] [address] Thien Becker MD [address] [facility] [place] [place] [address] Saeed Monique MD [address] [place], [place] [id number] Enrique Schneider MD [address] [facility] [address] [place], [place] [id number] Esophageal dysphagia (Primary Dx); Dysphagia, unspecified type; Cognitive communication deficit Discharge Disposition: Home or Self Care Social History Tobacco Use Types Packs/Day Years Used Date Smoking Tobacco: Never Assessed [facility] Utilities Answer Date Recorded In the past 12 months has [employer], gas, oil, or water [employer] threatened to shut off services in your [...] GED or equivalent No 10/29/2024 Preferred Language Peruvian 10/29/2024 Sex and Gender Information Value Date [...] from the original note were not included. [facility] DISCHARGE SUMMARY Patient Name: Jessica [...] MD 10/27/2024 10:17 PM EDT Workstation ID: [id number] EEG Result Date: 10/27/2024 History: 89 y [...] minutes on this discharge activity which included: eifm-kb-kndxlnnrtpgoo with the patient, reviewing the data in the system, coordination of the care with the nursing staff as well as consultants, documentation, and entering orders. * Han Martin RN - 10/29/2024 11:16 AM EDT Images from the original note were not included. Jessica Burnham (89 y.o. Male) Jean Claude Martin RNengineering design manager [phone] Looking for short term rehab Date of 1935 Social Security Number [id number] Address [address] [address] Caodaism None Marital Status Single Admission Date 10/26/2024 Admission Type Urgent Admitting Provider Saeed Monique MD Attending Provider Saeed Monique MD Department, Room/Bed [facility] 3F, S318/1 Discharge Date Discharge Disposition Discharge Destination Attending Provider: Saeed Monique MD Allergies: No Known Allergies Isolation: None Infection: None Code Status: Not on file Ht: -- Wt: 68 kg (150 lb) Admission Cmt: None Principal Problem: Stroke-like symptoms [R29.90] Active Insurance as of 10/26/2024 Primary Coverage Payor Plan Insurance Group Employer/Plan Group [facility] [employer] Payor Plan Address Payor Plan Phone Number Payor Plan Fax Number Effective Dates [phone] 04/18/2024 - None Entered [facility] [id number] Subscriber Name Subscriber Date Member ID JESSICA BURNHAM 1935 [id number] Emergency Contacts Recycle Coordinator (Rel.) Home Phone Work Phone Mobile Phone Saranya Carter (Daughter) [phone] History & Physical Thien Becker MD at 10/26/24 [facility] PHYSICAL Patient Identification: Name: Jessica Burnham Age: 89 y.o. Sex: male : 1935 Visit Number: [id number] Admit Date: 10/26/2024 Room number: S318/1 Primary Care Physician: Provider, No Known Date of Admission: 10/26/2024 Subjective Chief complaint: Confusion History of presenting illness: This is an 89 male from long-term with a past medical history of COPD, dementia, sciatica, and hypertension presenting with altered mental status. Pt found to have confusion, dysarthria, and bilateral lower extremity drift. Last known well has not been established. The patient initially presented to [facility] with vitals WNL and imaging showing CT head with changes to right MCA territory right frontal, No right MCA LVO identified. Pt would not be a Special Effects Makeup Artist candidate. He has been transferred to our [...] -Continue to monitor SaO2 Thien Becker MD [facility] 10/26/24 19:21 EDT 1950 Vital [...] 40 mg 40 mg Oral Nightly Roby Mcknezie MD 40 mg at 10/28/241938 ipratropium-albuterol (DUO-NEB) [...] hours) Saeed Monique MD at 10/28/24 1324 [facility] PROGRESS NOTE Patient Name: Jessica [...] MD 10/27/2024 10:17 PM EDT Workstation ID: [id number] EEG Result Date: 10/27/2024 History: 89 y [...] asa 81mg daily and lipitor 40mg qhs. inclusion special educator for 2-4 weeks upon discharge --MRI brain showed no acute --echo final read still pending --EEG was unremarkable --A1C 5.33. Total chol 138 HDL 56 LDL 72 Dysphagia --THEATER MANAGER states that solids get stuck and then coughs up and recs GI consult for possible EGD HTN --normotension BP now ok per neuro. Restart home norvasc HL Dementia --continue home meds LLE swelling --LLE duplex pending COPD without exacerbation Expected Discharge Location and Transportation: from [place] Expected Discharge Expected Discharge Date: 10/29/2024; Expected [...] is lying down in the bed in [facility]. No family were at the bedside. [...] light touch throughout Coordination: no ataxia with zudiam-ki-gtbl testing Gait/Station: deferred Results Review: I reviewed [...] MD 10/27/2024 10:17 PM EDT Workstation ID: [id number] -CTH wo on 10/26/2024 images were personally [...] 10/27/2024 was 72 Assessment/Plan This is 89-year-old -Lebanese male, right-handed with multiple vascular risk factor presented to outside hospital for altered mental status. Transferred to our facility for full stroke workup and higher level of care. Patient was not a candidate for IV thrombolytic therapy or mechanical thrombectomy as he was back to his baseline. Antiplatelet ENVIRONMENTAL DEPARTMENT MANAGER: Aspirin 325 mg Anticoagulant ENVIRONMENTAL DEPARTMENT MANAGER: None #Acute encephalopathy in the setting of [...] protocol -Activity as tolerated, fall risk precautions -PT/OT/THEATER MANAGER evaluation #Essential hypertension, complicated by uncontrolled hypertension [...] Roby Mckenzie MD, Msc, PhD Vascular Neurologist [facility] 1306 Physical Therapy Notes (most recent note) Jennifer Hendrickosn PT at 10/28/24 0231 Version 1 of 1 Patient Name: Jessica [...] Bed Mobility Bed Mobility supine-sit -MAI Supine-Sit [place] (Bed Mobility) verbal cues;nonverbal cues (demo/gesture);minimum assist (75% patient effort) -MAI Assistive Device (Bed Mobility) head of bed elevated;bed rails -MAI Comment, (Bed Mobility) Pt utilized bed rail -MAI Row Name 10/28/24 1528 Transfers Comment, (Transfers) Cues for sequencing and hand placement with FWW. -MAI Row Name 10/28/24 1528 Sit-Stand Transfer Sit-Stand [place] (Transfers) minimum assist (75% patient effort) -MAI Assistive Device (Sit-Stand Transfers) walker, front-wheeled -MAI Comment, (Sit-Stand Transfer) VCs -MAI Row Name 10/28/24 1528 Gait/Stairs (Locomotion) [place] Level (Gait) contact guard -MAI Assistive Device [...] PT) sit to supine/supine to sit -MAI [place] Level/Cues Needed (Bed Mobility Goal 1, PT) independent -MAI Time Frame (Bed Mobility Goal 1, PT) usp goal (LTG);10 days -MAI Row Name 10/28/241534 Transfer Goal 1 (PT) Activity/Assistive Device (Transfer Goal 1, PT) qbx-yo-dqgjt/kiwvr-in-ngy -MAI [place] Level/Cues Needed (Transfer Goal 1, PT) modified independence -MAI Time Frame (Transfer Goal 1, PT) short term goal (STG);5 days -MAI Row Name 10/28/241534 Gait Training Goal 1 (PT) Activity/Assistive Device (Gait Training Goal 1, PT) gait (walking locomotion);assistive device use-MAI [place] Level (Gait Training Goal 1, PT) modified independence -MAI Distance (Gait Training Goal 1, PT) 100 -MAI Time Frame (Gait Training Goal 1, PT) usp goal (LTG);10 days -MAI Row Name 10/28/241534 [...] Nurse Physical Therapy Education Title: PT OT THEATER MANAGER Therapies (In Progress) Topic: Physical Therapy (In [...] Description Service Date Service Provider Modifiers Qty [id number] HC-PT EVAL MOD COMPLEXITY 5 10/28/2024 Jennifer Hendrickson PT 1 PT G-Codes Outcome Measure Options: AM-PAC 6 Clicks Basic Mobility (PT) AM-PAC 6 Clicks Score (PT): 18 PT Discharge Summary Anticipated Discharge Disposition (PT): [facility] facility Jennifer Hendrickson PT 10/28/2024 1538 Occupational [...] d/c to SNF. Anticipated Discharge Disposition (OT): [facility] facility 1545 Speech Language Pathology Notes (most recent note) Sissy Lopez MS CCC-THEATER MANAGER at 10/27/24 1447 Goal Outcome Evaluation: Plan of Care Reviewed With: patient Anticipated Discharge Disposition (THEATER MANAGER): [facility] facility THEATER MANAGER Diagnosis: mild, cognitive-linguistic disorder (10/27/24 1300) THEATER MANAGER Swallowing Diagnosis: functional oral phase, R/O pharyngeal [...] Lopez MD - 11/02/2024 10:17 AM EDT [facility] Cardiology Inpatient Progress Note Chief [...] been in atrial fibrillation since presentation to [facility] - GDMT: carvedilol, added losartan with elevated BP - asymptomatic, euvolemic Anticipate d/c home today. Can follow-up in 2 months. Vu Lopez MD 11/02/2024 10:17 EDT * Milka Leblanc APRN - 11/01/2024 12:40 PM EDT Images from the original note were not included. [facility] PROGRESS NOTE Patient Name: Jessica [...] with more conservative management at thistime. Dysphagia --THEATER MANAGER states that solids get stuck and then [...] Falls --lives alone. Pt of [facility]. Has caregivers help 4 days a [...] Lopez MD - 11/01/2024 10:09 AM EDT [facility] Cardiology Inpatient Progress Note Chief [...] been in atrial fibrillation since presentation to [facility] - GDMT: carvedilol, add losartan with elevated BP - asymptomatic, euvolemic Vu Lopez MD 11/01/2024 10:09 EDT * Clark Lopez MD - 10/31/2024 4:49 PM EDT [facility] Cardiology Inpatient Progress Note Chief [...] MD 10/31/2024 16:50 EDT * Milka Leblanc, GRINDER NEEDLE TIP - 10/31/2024 11:11 AM EDT Images from the original note were not included. [facility] PROGRESS NOTE Patient Name: Jessica [...] asa 81mg daily and lipitor 40mg qhs. inclusion special educator for 2-4 weeks upon discharge --MRI brain [...] with more conservative management at thistime. Dysphagia --THEATER MANAGER states that solids get stuck and then [...] Falls --lives alone. Pt of [facility]. Has caregivers help a few days a week. Dtr[place] [facility], but not interested in [facility]. Expected Discharge Location and Transportation: to [facility], following Expected Discharge Expected Discharge Date: 11/02/2024; Expected Discharge Time: VTE Prophylaxis: Mechanical VTE prophylaxis orders are present. AM-PAC 6 Clicks Score (PT): 17 (10/30/241943) CODE STATUS: There are no questions and answers to display. Milka Leblanc APRN 10/31/24 * Che Kiser APRN - 10/30/2024 9:30 AM EDT Images from the original note were not included. [facility] PROGRESS NOTE Patient Name: Jessica [...] asa 81mg daily and lipitor 40mg qhs. inclusion special educator for 2-4 weeks upon discharge --MRI brain [...] with more conservative management at thistime. Dysphagia --THEATER MANAGER states that solids get stuck and then [...] Falls --lives alone. Pt of [facility]. Has caregivers help a few days a week. Da/next of kin [place] SNF [place]. Prefers [place] or if not wants local SNF. Updated CM 10/29. Daily Care Communication Due to current limited visitation policies, an attempt will be made daily to update patient's identified best [id number]-bl-wtcgujj(s) Contact: Saranya Carter Relation: sherita Time of communication: 1350 Notes (if applicable): Attempted to call patient's daughter/next of kin to update on care today andalso to clarify CODE STATUS as it is not on file. She did not answer. Expected Discharge Location and Transportation: to SNF at in ([facility] [place] rehab) or somewhere local. Expected Discharge Expected Discharge Date: 10/31/2024; Expected Discharge Time: VTE Prophylaxis: Mechanical VTE prophylaxis orders are present. AM-PAC 6 Clicks Score (PT): 17 (10/30/24 1124) CODE STATUS: There are no questions and answers to display. Che Kiser, CLAUDIA 10/30/24 * Michell Carroll, GRINDER NEEDLE TIP - 10/30/2024 8:19 AM EDT [facility] Cardiology Inpatient Progress Note Chief [...] from the original note were not included. [facility] PROGRESS NOTE Patient Name: Jessica [...] MD 10/27/2024 10:17 PM EDT Workstation ID: [id number] Results for orders placed during the hospital [...] asa 81mg daily and lipitor 40mg qhs. inclusion special educator for 2-4 weeks upon discharge --MRI brain [...] Echo for stroke w/u --consult cards Dysphagia --THEATER MANAGER states that solids get stuck and then [...] Falls --lives alone. Pt of [facility]. Has caregivers help a few days a week. [facility] SN[facility]. Updated CM. Daily Care Communication Due to current limited visitation policies, an attempt will be made daily to update patient's identified best [id number](s) Contact: Saranya Carter Relation: sherita Time of communication: 1330 Notes (if applicable): Spoke with patient's daughter/next of kin via phone. Updated on results of EGD. Discussed past medical history as patient is a [place] patient with no history on file here. Explained patient in rate controlled A-fib and new CHF based on echo. History of these prior note per daughter. Does she feels patient would not be a good candidate for anticoagulation due to age and dementiawith falls. Agreeable to aspirin if indicated. For patient to transfer at discharge to a [place] rehab center if possible. Expected Discharge Location and Transportation: to SNF at in ([facility] rehab) or somewhere local. Expected Discharge Expected Discharge Date: 10/29/2024; Expected Discharge Time: VTE Prophylaxis: Mechanical VTE prophylaxis orders are present. AM-PAC 6 Clicks Score (PT): 16 (10/29/24 1400) CODE STATUS: There are no questions and answers to display. Che Kiser APRN 10/29/24 * Saeed Monique MD - 10/28/2024 1:24 PM EDT Images from the original note were not included. [facility] PROGRESS NOTE Patient Name: Jessica [...] MD 10/27/2024 10:17 PM EDT Workstation ID: [id number] EEG Result Date: 10/27/2024 History: 89 y [...] asa 81mg daily and lipitor 40mg qhs. inclusion special educator for 2-4 weeks upon discharge --MRI brain showed no acute --echo final read still pending --EEG was unremarkable --A1C 5.33. Total chol 138 HDL 56 LDL 72 Dysphagia --THEATER MANAGER states that solids get stuck and then [...] light touch throughout Coordination: no ataxia with xqkbeh-fu-nwyi testing Gait/Station: deferred Results Review: I reviewed [...] MD 10/27/2024 10:17 PM EDT Workstation ID: [id number] -CTH wo on 10/26/2024 images were personally [...] 10/27/2024 was 72 Assessment/Plan This is 89-year-old -Lebanese male, right-handed with multiple vascular risk factor presented to outside hospital for altered mental status. Transferred to our facility for full stroke workup and higher level of care. Patient was not a candidate for IV thrombolytic therapy or mechanical thrombectomy as he was back to his baseline. Antiplatelet ENVIRONMENTAL DEPARTMENT MANAGER: Aspirin 325 mg Anticoagulant ENVIRONMENTAL DEPARTMENT MANAGER: None #Acute encephalopathy in the setting of [...] protocol -Activity as tolerated, fall risk precautions -PT/OT/THEATER MANAGER evaluation #Essential hypertension, complicated by uncontrolled hypertension [...] Roby Mckenzie MD, Msc, PhD Vascular Neurologist [facility] * Roby Mckenzie MD - 10/27/2024 2:24 PM EDT Stroke Progress Note Chief Complaint: Altered mental status Subjective Subjective Subjective: The patient is lying down in the bed in [facility]. No family were at the bedside. [...] x 2 (stated that he is in [place] at [facility]), interactive, ableto follow commands Speech: Intact Articulation CN 2-12: II - PERRLA III, IV, - EOMI VII -no gross facial asymmetry VIII - Auditory acuity intact XII - Tongue protrudes midline Motor: Patient is able to move all 4 extremities against gravity with no drift appreciated Sensory: intact light touch throughout Coordination: no ataxia with tletyl-zg-iycm testing Gait/Station: deferred Results Review: I reviewed [...] 10/27/2024 was 72 Assessment/Plan This is 89-year-old -Lebanese male, right-handed with multiple vascular risk factor presented to outside hospital for altered mental status. Transferred to our facility for full stroke workup and higher level of care. Patient was not a candidate for IV thrombolytic therapy or mechanical thrombectomy as he was back to his baseline. Antiplatelet ENVIRONMENTAL DEPARTMENT MANAGER: Aspirin 325 mg Anticoagulant ENVIRONMENTAL DEPARTMENT MANAGER: None #Acute encephalopathy in the setting of [...] protocol -Activity as tolerated, fall risk precautions -PT/OT/THEATER MANAGER evaluation #Essential hypertension, complicated by uncontrolled hypertension [...] Roby Mckenzie MD, Msc, PhD Vascular Neurologist [facility] * Saeed Monique MD - 10/27/2024 2:02 PM EDT Images from the original note were not included. [facility] PROGRESS NOTE Patient Name: Jessica [...] chol 138 HDL 56 LDL 72 Dysphagia --THEATER MANAGER states that solids get stuck and then coughs up and recs GI consult for possible EGD HTN --permissive HTN until ok per neuro HL Dementia --continue home meds LLE swelling --LLE duplex pending COPD without exacerbation Expected Discharge Location and Transportation: [place] Expected Discharge Expected Discharge Date: 10/29/2024; Expected Discharge Time: VTE Prophylaxis: Mechanical VTE prophylaxis orders are present. AM-PAC 6 Clicks Score (PT): 17 (10/27/24 0800) CODE STATUS: There are no questions and answers to display. Saeed Monique MD 10/27/24 documented in this encounter H&P Notes * Thien Becker MD - 10/26/2024 7:21 PM EDT Images from the original note were not included. [facility]YSICAL Patient Identification: Name: Jessica Burnham Age: 89 y.o. Sex: male : 1935 Visit Number: [id number] Admit Date: 10/26/2024 Room number: S318/1 Primary Care Physician: Provider, No Known Date of Admission: 10/26/2024 Subjective Chief complaint: Confusion History of presenting illness: This is an 89 male from long-term with a past medical history of COPD, dementia, sciatica, and hypertension presenting with altered mental status. Pt found to have confusion, dysarthria, and bilateral lower extremity drift. Last known well has not been established. The patient initially presented to [facility] with vitals WNL and imaging showing CT head with changes to right MCA territory right frontal, No right MCA LVO identified. Pt would not be a Special Effects Makeup Artist candidate. He has been transferred to our [...] -Continue to monitor SaO2 Thien Becker MD [facility] Hospitalist 10/26/24 19:21 EDT documented in this encounter Consult Notes * Clark Lopez MD - 10/29/2024 2:52 PM EDTAssociated Order(s): IP CONSULT TO CARDIOLOGY [facility] Cardiology Initial Consult Note Patient Identification: Jessica Burnham 89 y.o. male 1935 [id number] Date of Consultation: 10/29/24 Reason for Consultation: atrial fibrillation, decreased EF PCP: Provider, No Known Primary storm window installer: none Referring physician: Saeed Monique MD History of Present Illness: Jessica Burnham is a 89 y.o. with a history of HTN, MCI, BPH, GERD, CKD who was transferred to [facility] from [facility] due to concern for stroke. Per the [...] records are available for review through the [place] system which do not show these diagnoses [...] 8:26 AM EDTAssociated Order(s): IP CONSULT TO SAP SECURITY ARCHITECT Diabetes Education Patient Name: Jessica Burnham Date [...] 2:51 PM EDTAssociated Order(s): Inpatient Gastroenterology Consult [facility]: Inpatient Gastroenterology Consult Inpatient Gastroenterology [...] MD 10/27/2024 10:17 PM EDT Workstation ID: [id number] EEG Result Date: 10/27/2024 History: 89 y [...] PATIENT SEEN: 1902 EST Handedness: Right Race: -Lebanese Chief Complaint/Reason for Consultation: Was found altered HPI: This is Mr. Jessica Armstrong 89-year-old -Lebanese male, right- handed, with significant health diagnosis for dementia, former smoker and alcohol drinker, COPD, hypertension, hyperlipidemia, sciatica who presented to our facility as a direct admit from [facility] for stroke workup and higher [...] Plantar: downgoing Left Plantar: downgoing Coordination Right: Dwcnrp-zl-vvac normal.Left: Ocutpy-nj-adgd normal. Gait Unable to assess. Physical Exam [...] sodium chloride Functional Status Prior to Current Stroke/Hooker Score: 1-2 NIH Stroke Scale Time: 21:52 [...] Atherosclerosis intra extracranial Assessment/Plan: This is 89-year-old -Lebanese male, right-handed with multiple vascular risk factor presented to outside hospital for altered mental status. Transferred to our facility for full stroke workup and higher level of care. Patient was not a candidate for IV thrombolytic therapy or mechanical thrombectomy as he was back to his baseline. Antiplatelet ENVIRONMENTAL DEPARTMENT MANAGER: Aspirin 325 mg Anticoagulant ENVIRONMENTAL DEPARTMENT MANAGER: None Transient alteration of mental status in [...] pending -Activity as tolerated, fall risk precautions -PT/OT/THEATER MANAGER evaluation - Neurology stroke will continue to [...] morning, its night time. * Kristal Benavidez, CF-THEATER MANAGER - 11/01/2024 4:02 PM EDT Goal Outcome Evaluation: Plan of Care Reviewed With: patient, child Anticipated Discharge Disposition (THEATER MANAGER): [facility] facility Treatment Assessment (THEATER MANAGER): continued, toleration of diet, cognitive-linguistic disorder (11/01/24 1540) Plan for Continued Treatment (THEATER MANAGER): continue treatment per plan of care (11/01/24 [...] able per POC. Anticipated Discharge Disposition (PT): [facility] facility * Sissy Lopez MS [facility]-THEATER MANAGER - 10/30/2024 4:07 PM EDT Goal Outcome Evaluation: Plan of Care Reviewed With: patient Anticipated Discharge Disposition (THEATER MANAGER): [facility] facility THEATER MANAGER Diagnosis: mild, cognitive-linguistic disorder (10/30/24 1430) THEATER MANAGER Swallowing Diagnosis: functional oral phase, R/O pharyngeal dysphagia, suspected esophageal dysphagia (10/30/24 1430) Treatment Assessment (THEATER MANAGER): continued, mild, cognitive-linguistic disorder (10/30/24 1430) Treatment Assessment Comments (THEATER MANAGER): Patient tolerated trials of soft solids w/o discomfort or s/s of aspiration. EGD completed on 10/29/24 with dilation completed. Diet upgraded this date to soft chopped and thin liquids. Patient continues with mild cognitive linguistic impairment. (10/30/24 1430) Plan for Continued Treatment (THEATER MANAGER): continue treatment per plan of care (10/30/24 [...] and endurance deficits. Anticipated Discharge Disposition (PT): [facility] * Jaylin Concepcion, OT - 10/30/2024 [...] per current POC. Anticipated Discharge Disposition (OT): [facility] facility * Edil Franklin, PT Student - [...] upon D/C. Anticipated Discharge Disposition (PT): (P) [facility] facility Cosigned by Yvonne Felder, PT at [...] d/c to SNF. Anticipated Discharge Disposition (OT): [facility] * Jennifer Hendrickson PT - 10/28/2024 [...] SNF upon DC. Anticipated Discharge Disposition (PT): [facility] facility, home with 08/11 care * Izabel [...] confusion, dysarthria, and BLE drift. Transferred from [facility]. Today 10/27 pt is A&O x3 [...] confusion, dysarthria, and BLE drift. Transferred from [facility]. Today 10/27 pt is A&O x3 with some mild confusion to situation. Cooperative today. SLPcleared pt for pureed diet w/ thin liquids. Tolerating diet so fare. MRI screening sheet in chart, MRI pending. EEG completed. UA drug screen-negative. * Sissy Lopez MS CCC-THEATER MANAGER - 10/27/2024 2:47 PM EDT Goal Outcome Evaluation: Plan of Care Reviewed With: patient Anticipated Discharge Disposition (THEATER MANAGER): [facility] facility THEATER MANAGER Diagnosis: mild, cognitive-linguistic disorder (10/27/24 1300) THEATER MANAGER Swallowing Diagnosis: functional oral phase, R/O pharyngeal dysphagia, suspected esophageal dysphagia (10/27/24 1300) * Enedelia Mroa RN - 10/26/2024 8:18 PM EDT Direct [...] esophageal dilations performed at 48 and 51 [place], without mucosal disruption. >> Assess response to empiric esophageal dilation. >> Decrease PPI to once daily. Please call with questions or concerns. Mian Garcia MD Date: 10/29/2024 Time: 09:45 EDT documented in this encounter Miscellaneous Notes * Therapy Treatment Note - Kristal Benavidez, CF-THEATER MANAGER - 11/01/2024 4:04 PM EDT Images from [...] Procedure: ESOPHAGOGASTRODUODENOSCOPY; Surgeon: Mian Garcia MD; Location: [facility]; Service: Gastroenterology; Laterality: N/A; THEATER MANAGER Recommendation and Plan THEATER MANAGER Diet Recommendation: soft to chew textures, chopped, thin liquids (11/01/241539) Recommended Precautions and Strategies: upright posture during/after eating, small bites of food and sips of liquid, reflux precautions (11/01/241539) THEATER MANAGER Rec. for Method of Medication Administration: meds whole, meds crushed, with puree, as tolerated (11/01/241539) Monitor for Signs of Aspiration: notify THEATER MANAGER if any concerns (11/01/241539) Anticipated Discharge Disposition (THEATER MANAGER): home with [facility] care (11/01/241539) Therapy Frequency (Swallow): 3 days per week (11/01/241539) Predicted Duration Therapy Intervention (Days): 1 week (11/01/241539) Oral Care Recommendations: Oral Care BID/PRN, Toothbrush (11/01/241539) Daily Summary of Progress (THEATER MANAGER): progress toward functional goals as expected (11/01/241539) Treatment Assessment (THEATER MANAGER): continued, toleration of diet, cognitive-linguistic disorder (11/01/241539) Plan for Continued Treatment (THEATER MANAGER): continue treatment per plan of care (11/01/241539) SWALLOW EVALUATION (Last 72 Hours) THEATER MANAGER Adult Swallow Evaluation Row Name 11/01/24153910/30/24 1430 THEATER MANAGER Evaluation Clinical Impression THEATER MANAGER Swallowing Diagnosis -- functional oral phase;R/O pharyngeal dysphagia;suspected esophageal dysphagia - Functional Impact -- risk of aspiration/pneumonia;risk of malnutrition - Rehab Potential/Prognosis, Swallowing -- good, to achieve stated therapy goals - Swallow Criteria for Skilled Therapeutic Interventions Met -- demonstrates skilled criteria - THEATER MANAGER Treatment Clinical Impressions Treatment Assessment Comments (THEATER MANAGER) -- Patient tolerated trials of soft solids w/o discomfort or s/s of aspiration. EGD completed on 10/29/24 with dilation completed. Diet upgraded this date to soft chopped and thin liquids. Patient continues with mild cognitive linguistic impairment. - Recommendations Therapy Frequency (Swallow) 3 days per week -SM PRN;5 days per week - THEATER MANAGER Diet Recommendation soft to chew textures;chopped;thin liquids [...] Care BID/PRN;Toothbrush - Oral Care BID/PRN;Toothbrush - THEATER MANAGER Rec. for Method of Medication Administration meds whole;meds crushed;with puree;as tolerated - meds whole;meds crushed;with puree;as tolerated - Monitor for Signs of Aspiration notify THEATER MANAGER if any concerns - notify THEATER MANAGER if any concerns - Anticipated Discharge Disposition (THEATER MANAGER) home with 08/11 care -SM -- User Carmona (r) = Recorded By, (t) = Taken By, (c) = Cosigned By Initials Name Effective Dates CH Sissy Lopez, MS [facility]-THEATER MANAGER 05/07/24 - Kristal Tovar MS CF-THEATER MANAGER 09/20/24 - EDUCATION The patient has been educated in the following areas: Cognitive Impairment Communication Impairment Dysphagia (Swallowing Impairment). THEATER MANAGER GOALS Row Name 11/01/24 1540 10/30/24 1430 (LTG) Patient will demonstrate functional swallow for Diet Texture (Demonstrate functional swallow) soft to chew (chopped) textures - SM soft to chew (chopped) textures - Liquid viscosity (Demonstrate functional swallow) thin liquids -SM thin liquids - [place] (Demonstrate functional swallow) with minimal cues (75-90% [...] signs/symptoms of aspiration;with adequate oral prep/transit/clearance - [place] (Tolerate trials) with minimal cues (75-90% accuracy) [...] cognitive-linguistic skills for return to discharge environment [place] with minimal cues - with minimal cues - Time frame 1 week -SM 1 week -CH Progress/Outcomes continuing progress toward goal -SM continuing progress toward goal -CH THEATER MANAGER Diagnostic Treatment Patient will participate in further assessment in the following areas clarification of baseline cognitive communication status - clarification of baseline cognitive communication status - Time Frame (Diagnostic) 1 week -SM 1 week - Progress/Outcomes (Additional Goal 1, THEATER MANAGER) goal met - continuing progress toward goal -CH Comment (Diagnostic) Daughter present in room, attests that pt is at baseline cog fx -SM -- Word Retrieval Skills Goal 1 (THEATER MANAGER) Improve Word Retrieval Skills By Goal 1 (THEATER MANAGER) high frequency;responsive naming task;completing a divergent task;80%;with minimal cues (75-90%) - high frequency;responsive naming task;completing a divergent task;80%;with minimal cues (75-90%) - Time Frame (Word Retrieval Goal 1, THEATER MANAGER) 1 week - 1 week -CH Progress (Word Retrieval Skills Goal 1, THEATER MANAGER) -- 80%;with minimal cues (75-90%) - Progress/Outcomes (Word Retrieval Goal 1, THEATER MANAGER) goal no longer appropriate - continuing progress toward goal -CH Comment (Word Retrieval Goal 1, THEATER MANAGER) Pt at baseline cog fx -SM -- Orientation Goal 1 (THEATER MANAGER) Improve Orientation Through Goal 1 (THEATER MANAGER) demonstrating orientation to day;demonstrating orientationto month;demonstrating orientation to year;demonstrating orientation to place;demonstrating orientation to disease/impairment;use environmental aids to assist with orientation;80%;with minimal cues (75-90%) - demonstrating orientation to day;demonstrating orientation to month;demonstrating orientation to year;demonstrating orientation to place;demonstrating orientation to disease/impairment;useenvironmental aids to assist with orientation;80%;with minimal cues (75-90%) - Time Frame (Orientation Goal 1, THEATER MANAGER) 1 week -SM 1 week -CH Progress (Orientation Goal 1, THEATER MANAGER) 30%;with minimal cues (75-90%) -SM 50%;with minimal cues (75-90%) -CH Progress/Outcomes (Orientation Goal 1, THEATER MANAGER) goal no longer appropriate -SM continuing progress toward goal -CH Comment (Orientation Goal 1, THEATER MANAGER) Oriented to self and place -SM Oriented to self and grossly to place, not to time or situation -CH Memory Skills Goal 1 (THEATER MANAGER) Improve Memory Skills Through Goal 1 (THEATER MANAGER) recalling related word lists immediately;recall details of the day;90%;with minimal cues (75-90%) -SM recalling related word lists immediately;recall details of the day;90%;with minimal cues (75-90%) -CH Time Frame (Memory Skills Goal 1, THEATER MANAGER) 1 week -SM 1 week -CH Progress (Memory Skills Goal 1, THEATER MANAGER) 30%;with minimal cues (75-90%) -SM 40%;with minimal cues (75-90%) -CH Progress/Outcomes (Memory Skills Goal 1, THEATER MANAGER) goal no longer appropriate -SM continuing progress toward goal -CH Comment (Memory Skills Goal 1, THEATER MANAGER) Could not recall details of day, recalled 2/3 related words immediately -SM -- User Carmona (r) = Recorded By, (t) = Taken By, (c) = Cosigned By Initials Name Provider Type Sissy Saldana MS CCC-THEATER MANAGER Speech and Language Pathologist Kristal Tovar MS CF-THEATER MANAGER Speech and Language Pathologist Time Calculation: Time Calculation- THEATER MANAGER Row Name 11/01/24 1603 Time Calculation- THEATER MANAGER THEATER MANAGER Start Time 1540 - THEATER MANAGER Received On 11/01/24 - Untimed Charges 92277-VX Treatment/ST Modification Prosth Nov - 08131-EA Treatment Swallow Minutes 10 -SM Total Minutes Untimed Charges Total Minutes 37 -SM Total Minutes 37 -SM User Carmona (r) = Recorded By, (t) = Taken By, (c) = Cosigned By Initials Name Provider Type Kristal Tovar MS CF-THEATER MANAGER Speech and Language Pathologist Therapy Charges for Today Code Description Service Date Service Provider Modifiers Qty [id number] HC ST TREATMENT SPEECH 2 11/01/2024 Kristal Benavidez MS CF-THEATER MANAGER GN [id number] TREATMENT SWALLOW 1 11/01/2024 Kristal Benavidez, MS CF-THEATER MANAGER GN 1 Kristal Benavidez, CF-THEATER MANAGER 11/01/2024 * Case Management/Social Work - Dagmar [...] does not want patient to go to [facility] for rehab. Saranya would like [place] referrals only. Saranya states she will be at the hospital in the am and will notify CM of her choices of facilities at that time. Patient's insurance, [employer], will require a prior authorization for this rehab request. CM following. Final Discharge Disposition Code 03 - [facility] facility (SNF) Discharge Codes No documentation. Expected [...] Procedure: ESOPHAGOGASTRODUODENOSCOPY; Surgeon: Mian Garcia MD; Location: [facility]; Service: Gastroenterology; Laterality: N/A; [...] Bed Mobility Bed Mobility supine-sit;sit-supine;scooting/bridging -AB Scooting/Bridging [place] (Bed Mobility) contact guard;1 person assist -AB Supine-Sit [place] (Bed Mobility) contact guard;1 person assist -AB Sit-Supine [place] (Bed Mobility) contact guard;1 person assist -AB Assistive Device (Bed Mobility) head of bed elevated -AB Comment, (Bed Mobility) increased time/effort. -AB Row Name 10/31/24 1505 Transfers Comment, (Transfers) Cues for hand placement and sequencing. -AB Row Name 10/31/24 1505 Sit-Stand Transfer Sit-Stand [place] (Transfers) contact guard;verbal cues;1 person assist -AB Assistive Device (Sit-Stand Transfers) walker, front-wheeled -AB Row Name 10/31/24 1505 Gait/Stairs (Locomotion) [place] Level (Gait) contact guard;1 person assist;verbal cues [...] Therapist Physical Therapy Education Title: PT OT THEATER MANAGER Therapies (In Progress) Topic: Physical Therapy (In [...] PT Received On 10/31/24 -AB Timed Charges 20857 - Gait Training Minutes 10 -AB 76654 - PT Therapeutic Activity Minutes 13 -AB Total Minutes Timed Charges Total Minutes 23 -AB Total Minutes 23 -AB User Carmona (r) = Recorded By, (t) = Taken By, (c) = Cosigned By Initials Name Provider Type AB Razia Jurado, PT Physical Therapist Therapy Charges for Today Code Description Service Date Service Provider Modifiers Qty [id number] HC GAIT TRAINING EA 15 MIN 10/31/2024 Razia Jurado, PT GP 1 [id number] HC PT THERAPEUTIC ACT EA 15 MIN 10/31/2024 Razia Jurado, PT GP 1 PT G-Codes Outcome Measure Options: AM-PAC 6 Clicks Basic Mobility (PT) AM-PAC 6 Clicks Score (PT): 17 AM-PAC 6 Clicks Score (OT): 17 Modified Hooker Scale: 3 - Moderate disability. Requiring some help, but able to walk without assistance. PT Discharge Summary Anticipated Discharge Disposition (PT): [facility] facility Razia Jurado PT 10/31/2024 * Therapy Treatment Note - Sissy Lopez MS CCC-THEATER MANAGER - 10/30/2024 4:06 PM EDT Images from [...] Procedure: ESOPHAGOGASTRODUODENOSCOPY; Surgeon: Mian Garcia MD; Location: [facility]; Service: Gastroenterology; Laterality: N/A; THEATER MANAGER Recommendation and Plan THEATER MANAGER Swallowing Diagnosis: functional oral phase, R/O pharyngeal dysphagia, suspected esophageal dysphagia (10/30/241429) THEATER MANAGER Diet Recommendation: soft to chew textures, chopped, thin liquids (10/30/241429) Recommended Precautions and Strategies: upright posture during/after eating, small bites of food and sips of liquid, reflux precautions (10/30/241429) THEATER MANAGER Rec. for Method of Medication Administration: meds whole, meds crushed, with puree, as tolerated (10/30/241429) Monitor for Signs of Aspiration: notify THEATER MANAGER if any concerns (10/30/241429) Recommended Diagnostics: other (see comments) (diet tolerance) (10/30/241429) Swallow Criteria for Skilled Therapeutic Interventions Met: demonstrates skilled criteria () Anticipated Discharge Disposition (THEATER MANAGER): [facility] facility (10/30/241429) Rehab Potential/Prognosis, Swallowing: good, to achieve stated therapy goals (10/30/241429) Therapy Frequency (Swallow): PRN, 5 days per week (10/30/241429) Predicted Duration Therapy Intervention (Days): 1 week (10/30/241429) Oral Care Recommendations: Oral Care BID/PRN, Toothbrush (10/30/241429) Daily Summary of Progress (THEATER MANAGER): progress toward functional goals as expected (10/30/241429) Treatment Assessment (THEATER MANAGER): continued, mild, cognitive-linguistic disorder (10/30/241429) Treatment Assessment Comments (THEATER MANAGER): Patient tolerated trials of soft solids w/o discomfort or s/s of aspiration. EGD completed on 10/29/24 with dilation completed. Diet upgraded this date to soft chopped and thin liquids. Patient continues with mild cognitive linguistic impairment. (10/30/24 143) Plan for Continued Treatment (THEATER MANAGER): continue treatment per plan of care (10/30/24 143) SWALLOW EVALUATION (Last 72 Hours) THEATER MANAGER Adult Swallow Evaluation Row Name 10/30/24 143 THEATER MANAGER Evaluation Clinical Impression THEATER MANAGER Swallowing Diagnosis functional oral phase;R/O pharyngeal dysphagia;suspected esophageal dysphagia - Functional Impact risk of aspiration/pneumonia;risk of malnutrition - Rehab Potential/Prognosis, Swallowing good, to achieve stated therapy goals - Swallow Criteria for Skilled Therapeutic Interventions Met demonstrates skilled criteria - THEATER MANAGER Treatment Clinical Impressions Treatment Assessment Comments (THEATER MANAGER) Patient tolerated trials of soft solids w/o discomfort or s/s of aspiration. EGD completed on 10/29/24 with dilation completed. Diet upgraded this date to soft chopped and thin liquids. Patient continues with mild cognitive linguistic impairment. - Recommendations Therapy Frequency (Swallow) PRN;5 days per week - THEATER MANAGER Diet Recommendation soft to chew textures;chopped;thin liquids - Recommended Diagnostics other (see comments) diet tolerance - Recommended Precautions and Strategies upright posture during/after eating;small bites of food and sips of liquid;reflux precautions - Oral Care Recommendations Oral Care BID/PRN;Toothbrush - THEATER MANAGER Rec. for Method of Medication Administration meds whole;meds crushed;with puree;as tolerated - Monitor for Signs of Aspiration notify THEATER MANAGER if any concerns - User Carmona (r) = Recorded By, (t) = Taken By, (c) = Cosigned By Initials Name Effective Dates Sissy Lopez MS [facility]-THEATER MANAGER 05/07/24 - EDUCATION The patient has been educated in the following areas: Dysphagia (Swallowing Impairment) Oral Care/Hydration Modified Diet Instruction. THEATER MANAGER GOALS Row Name 10/30/241429 (LTG) Patient will demonstrate functional swallow for Diet Texture (Demonstrate functional swallow) soft to chew (chopped) textures -CH Liquid viscosity (Demonstrate functional swallow) thin liquids - [place] (Demonstrate functional swallow) with minimal cues (75-90% [...] signs/symptoms of aspiration;with adequate oral prep/transit/clearance - [place] (Tolerate trials) with minimal cues (75-90% accuracy) -CH Time Frame (Tolerate trials) 1 week -CH Progress/Outcomes (Tolerate trials) goal met;goal revised this date -CH Comment (Tolerate trials) goal met for pureed, diet upgraded to soft chopped and thin liquids. - Patient will demonstrate functional cognitive-linguistic skills for return to discharge environment [place] with minimal cues -CH Time frame 1 week -CH Progress/Outcomes continuing progress toward goal -CH THEATER MANAGER Diagnostic Treatment Patient will participate in further assessment in the following areas clarification of baseline cognitive communication status -CH Time Frame (Diagnostic) 1 week -CH Progress/Outcomes (Additional Goal 1, THEATER MANAGER) continuing progress toward goal - Word Retrieval Skills Goal 1 (THEATER MANAGER) Improve Word Retrieval Skills By Goal 1 (THEATER MANAGER) high frequency;responsive naming task;completing a divergent task;80%;with minimal cues (75-90%) -CH Time Frame (Word Retrieval Goal 1, THEATER MANAGER) 1 week -CH Progress (Word Retrieval Skills Goal 1, THEATER MANAGER) 80%;with minimal cues (75-90%) -CH Progress/Outcomes (Word Retrieval Goal 1, THEATER MANAGER) continuing progress toward goal -CH Orientation Goal 1 (THEATER MANAGER) Improve Orientation Through Goal 1 (THEATER MANAGER) demonstrating orientation to day;demonstrating orientationto month;demonstrating orientation to year;demonstrating orientation to place;demonstrating orientation to disease/impairment;use environmental aids to assist with orientation;80%;with minimal cues (75-90%) -CH Time Frame (Orientation Goal 1, THEATER MANAGER) 1 week -CH Progress (Orientation Goal 1, THEATER MANAGER) 50%;with minimal cues (75-90%) -CH Progress/Outcomes (Orientation Goal 1, THEATER MANAGER) continuing progress toward goal -CH Comment (Orientation Goal 1, THEATER MANAGER) Oriented to self and grossly to place, not to time or situation -CH Memory Skills Goal 1 (THEATER MANAGER) Improve Memory Skills Through Goal 1 (THEATER MANAGER) recalling related word lists immediately;recall details of the day;90%;with minimal cues (75-90%) -CH Time Frame (Memory Skills Goal 1, THEATER MANAGER) 1 week -CH Progress (Memory Skills Goal 1, THEATER MANAGER) 40%;with minimal cues (75-90%) -CH Progress/Outcomes (Memory Skills Goal 1, THEATER MANAGER) continuing progress toward goal -CH User Carmona (r) = Recorded By, (t) = Taken By, (c) = Cosigned By Initials Name Provider Type Sissy Saldana MS CCC-THEATER MANAGER Speech and Language Pathologist Time Calculation: Time Calculation- THEATER MANAGER Row Name 10/30/24 1601 Time Calculation- THEATER MANAGER THEATER MANAGER Start Time 1430 - THEATER MANAGER Received On 10/30/24 - Untimed Charges [id number]-OQ Treatment/ST Modification Prosth Nov 39 -CH 63211-YL Treatment Swallow Minutes 45 -CH Total Minutes Untimed Charges Total Minutes 84 -CH Total Minutes 84 -CH User Carmona (r) = Recorded By, (t) = Taken By, (c) = Cosigned By Initials Name Provider Type Sissy Saldana MS CCC-THEATER MANAGER Speech and Language Pathologist Therapy Charges for Today Code Description Service Date Service Provider Modifiers Qty 62226707405 HC ST TREATMENT SWALLOW 3 10/30/2024 Sissy Lopez MS CCC-THEATER MANAGER GN [id number] TREATMENT SPEECH 3 10/30/2024 Sissy Lopez MS CCC-THEATER MANAGER GN 1 Sissy Lopez MS CCC-BARBER 10/30/2024 and Acute Care - Speech Language Pathology Treatment Note [place] Patient Name: Jessica Burnham : 1935 Today's [...] Procedure: ESOPHAGOGASTRODUODENOSCOPY; Surgeon: Mian Garcia MD; Location: [facility]; Service: Gastroenterology; Laterality: N/A; THEATER MANAGER Recommendation and Plan THEATER MANAGER Diagnosis: mild, cognitive-linguistic disorder (10/30/241429) Monitor for Signs of Aspiration: notify THEATER MANAGER if any concerns (10/30/241429) Swallow Criteria for Skilled Therapeutic Interventions Met: demonstrates skilled criteria () SLC Criteria for Skilled Therapy Interventions Met: yes (10/30/241429) Anticipated Discharge Disposition (THEATER MANAGER): [facility] facility (10/30/241429) Therapy Frequency (Swallow): PRN, 5 days per week (10/30/241429) Therapy Frequency (THEATER MANAGER SLC): 5 days per week (10/30/241429) Predicted Duration Therapy Intervention (Days): 1 week (10/30/241429) Oral Care Recommendations: Oral Care BID/PRN, Toothbrush (10/30/241429) Daily Summary of Progress (THEATER MANAGER): progress toward functional goals as expected (10/30/241429) Treatment Assessment (THEATER MANAGER): continued, mild, cognitive-linguistic disorder (10/30/241429) Treatment Assessment Comments (THEATER MANAGER): Patient tolerated trials of soft solids w/o discomfort or s/s of aspiration. EGD completed on 10/29/24 with dilation completed. Diet upgraded this date to soft chopped and thin liquids. Patient continues with mild cognitive linguistic impairment. (10/30/241429) Plan for Continued Treatment (THEATER MANAGER): continue treatment per plan of care (10/30/241429) THEATER MANAGER EVALUATION (Last 72 Hours) THEATER MANAGER SLC Evaluation Row Name 10/30/241429 Communication Assessment/Intervention [...] Pain Rating 0/10 - no pain -CH THEATER MANAGER Evaluation Clinical Impressions THEATER MANAGER Diagnosis mild;cognitive-linguistic disorder -CH Rehab Potential/Prognosis good -CH SLC Criteria for Skilled Therapy Interventions Met yes -CH THEATER MANAGER Treatment Clinical Impressions Treatment Assessment (THEATER MANAGER) continued;mild;cognitive-linguistic disorder - Daily Summary of Progress (THEATER MANAGER) progress toward functional goals as expected -CH Plan for Continued Treatment (THEATER MANAGER) continue treatment per plan of care -CH Care Plan Review evaluation/treatment results reviewed;care plan/treatment goals reviewed -CH Recommendations Therapy Frequency (THEATER MANAGER SLC) 5 days per week -CH Predicted Duration Therapy Intervention (Days) 1 week -CH Anticipated Discharge Disposition (THEATER MANAGER) [facility] facility - User Carmona (r) = Recorded By, (t) = Taken By, (c) = Cosigned By Initials Name Effective Dates Sissy Lopez MS [facility]-THEATER MANAGER 05/07/24 - EDUCATION The patient has been educated in the following areas: Cognitive Impairment Communication Impairment. THEATER MANAGER GOALS Row Name 10/30/24 1430 (LTG) Patient will demonstrate functional swallow for Diet Texture (Demonstrate functional swallow) soft to chew (chopped) textures - Liquid viscosity (Demonstrate functional swallow) thin liquids - [place] (Demonstrate functional swallow) with minimal cues (75-90% [...] signs/symptoms of aspiration;with adequate oral prep/transit/clearance - [place] (Tolerate trials) with minimal cues (75-90% accuracy) - Time Frame (Tolerate trials) 1 week -CH Progress/Outcomes (Tolerate trials) goal met;goal revised this date - Comment (Tolerate trials) goal met for pureed, diet upgraded to soft chopped and thin liquids. - Patient will demonstrate functional cognitive-linguistic skills for return to discharge environment [place] with minimal cues - Time frame 1 week -CH Progress/Outcomes continuing progress toward goal -CH THEATER MANAGER Diagnostic Treatment Patient will participate in further assessment in the following areas clarification of baseline cognitive communication status - Time Frame (Diagnostic) 1 week -CH Progress/Outcomes (Additional Goal 1, THEATER MANAGER) continuing progress toward goal - Word Retrieval Skills Goal 1 (THEATER MANAGER) Improve Word Retrieval Skills By Goal 1 (THEATER MANAGER) high frequency;responsive naming task;completing a divergent task;80%;with minimal cues (75-90%) -CH Time Frame (Word Retrieval Goal 1, THEATER MANAGER) 1 week -CH Progress (Word Retrieval Skills Goal 1, THEATER MANAGER) 80%;with minimal cues (75-90%) -CH Progress/Outcomes (Word Retrieval Goal 1, THEATER MANAGER) continuing progress toward goal -CH Orientation Goal 1 (THEATER MANAGER) Improve Orientation Through Goal 1 (THEATER MANAGER) demonstrating orientation to day;demonstrating orientationto month;demonstrating orientation to year;demonstrating orientation to place;demonstrating orientation to disease/impairment;use environmental aids to assist with orientation;80%;with minimal cues (75-90%) -CH Time Frame (Orientation Goal 1, THEATER MANAGER) 1 week -CH Progress (Orientation Goal 1, THEATER MANAGER) 50%;with minimal cues (75-90%) -CH Progress/Outcomes (Orientation Goal 1, THEATER MANAGER) continuing progress toward goal -CH Comment (Orientation Goal 1, THEATER MANAGER) Oriented to self and grossly to place, not to time or situation -CH Memory Skills Goal 1 (THEATER MANAGER) Improve Memory Skills Through Goal 1 (THEATER MANAGER) recalling related word lists immediately;recall details of the day;90%;with minimal cues (75-90%) -CH Time Frame (Memory Skills Goal 1, THEATER MANAGER) 1 week -CH Progress (Memory Skills Goal 1, THEATER MANAGER) 40%;with minimal cues (75-90%) -CH Progress/Outcomes (Memory Skills Goal 1, THEATER MANAGER) continuing progress toward goal -CH User Carmona (r) = Recorded By, (t) = Taken By, (c) = Cosigned By Initials Name Provider Type Sissy Saldana MS CCC-THEATER MANAGER Speech and Language Pathologist Time Calculation: Time Calculation- THEATER MANAGER Row Name 10/30/24 1601 Time Calculation- THEATER MANAGER THEATER MANAGER Start Time 1430 -CH THEATER MANAGER Received On 10/30/24 - Untimed Charges 62097-WK Treatment/ST Modification Prosth Aug Alter 39 -CH 43825-KR Treatment Swallow Minutes 45 -CH Total Minutes Untimed Charges Total Minutes 84 -CH Total Minutes 84 -CH User Carmona (r) = Recorded By, (t) = Taken By, (c) = Cosigned By Initials Name Provider Type Sissy Saldana MS CCC-THEATER MANAGER Speech and Language Pathologist Therapy Charges for Today Code Description Service Date Service Provider Modifiers Qty 46093393383 HC ST TREATMENT SWALLOW 3 10/30/2024 Roderick Lopeza, CCC-THEATER MANAGER GN [id number] TREATMENT SPEECH 3 10/30/2024 Jessica Sissy CCC-THEATER MANAGER GN 1 Sissy Lopez CCC-THEATER MANAGER 10/30/2024 * Case Management/Social Work - Saeed Ramsay RN - 10/30/2024 2:08 PM EDT Continued Stay Note [facility] Patient Name: Jessica Burnham Today's Date: 10/30/2024 Admit Date: 10/26/2024 Plan: SNF Discharge Plan Row Name 10/30/24 1400 Plan Plan SNF Patient/Family in Agreement with Plan yes Plan Comments I spoke w/Brianna Yip @ [facility], received fax from [facility] on Tuesday. Her contact number is [phone], fax [phone]. She stated that she needs more information about Mr. Burnham from daughter, Saranya. I called Saranya, who lives in [place], [place], she did not know about [facility] or where [facility] was located, I did give her Brianna's information to call. Per Saranya, she prefers her dad to go to a [facility] facility for STR, and would like her dad to be able to doSTR , then back to his apt w/caregivers, but then asked if [facility] would keep him? I informedthat I would leave a facility list in Mr. Burnham's room w/[facility] for her to review.She plans to be [...] well, I asked him about SNF in [place], he stated, I don't want to be in that mess either. Will have unit CM f/u on Tuesday. Final Discharge Disposition Code 03 - [facility] facility (SNF) Discharge Codes No documentation. Expected [...] Procedure: ESOPHAGOGASTRODUODENOSCOPY; Surgeon: Mian Garcia MD; Location: [facility]; Service: Gastroenterology; Laterality: N/A; [...] Row Name 10/30/24 1130 Sit-Stand Transfer Sit-Stand [place] (Transfers) contact guard;verbal cues -KR Assistive Device (Sit-Stand Transfers) walker, front-wheeled -KR Comment, (Sit-Stand Transfer) 2x from chair with FWW, 5x STS from chair unsupported. -KR Row Name 10/30/24 1130 Gait/Stairs (Locomotion) [place] Level (Gait) contact guard -KR Assistive Device [...] Therapist Physical Therapy Education Title: PT OT THEATER MANAGER Therapies (In Progress) Topic: Physical Therapy (In [...] PT Received On 10/30/24 -KR Timed Charges 88436 - PT Therapeutic Exercise Minutes 18 -KR 77093 - PT Therapeutic Activity Minutes 5 -KR Total Minutes Timed Charges Total Minutes 23 -KR Total Minutes 23 -KR User Carmona (r) = Recorded By, (t) = Taken By, (c) = Cosigned By Initials Name Provider Type Yvonne Martin, PT Physical Therapist Therapy Charges for Today Code Description Service Date Service Provider Modifiers Qty 64229233731 HC PT THER PROC EA 15 MIN 10/30/2024 Yvonne Felder, PT GP 1 47516108049 HC PT THERAPEUTIC ACT EA 15 MIN 10/30/2024 Yvonne Felder, PT GP 1 PT G-Codes Outcome Measure Options: AM-PAC 6 Clicks Basic Mobility (PT) AM-PAC 6 Clicks Score (PT): 17 AM-PAC 6 Clicks Score (OT): 17 Modified Hooker Scale: 3 - Moderate disability. Requiring some help, but able to walk without assistance. PT Discharge Summary Anticipated Discharge Disposition (PT): [facility] facility vYonne Felder PT 10/30/2024 * Therapy Treatment Note [...] Procedure: ESOPHAGOGASTRODUODENOSCOPY; Surgeon: Mian Garcia MD; Location: [facility]; Service: Gastroenterology; Laterality: N/A; [...] Row Name 10/30/24 1014 Sit-Stand Transfer Sit-Stand [place] (Transfers) contact guard;verbal cues -MR Assistive Device (Sit-Stand Transfers) walker, front-wheeled -MR Row Name 10/30/24 1014 Toilet Transfer Type (Toilet Transfer) stand pivot/stand step -MR [place] Level (Toilet Transfer) minimum assist (75% patient [...] Name 10/30/24 1014 Upper Body Dressing Assessment/Training [place] Level (Upper Body Dressing) don;contact guard assist;other (see comments) adjusting hospital gown -MR Position (Upper Body Dressing) supported sitting -MR Row Name 10/30/24 1014 Grooming Assessment/Training [place] Level (Grooming) wash face, hands;contact guard assist -MR Position (Grooming) sink side -MR Row Name 10/30/24 1014 Toileting Assessment/Training [place] Level (Toileting) adjust/manage clothing;contact guard assist;perform perineal hygiene;set up -MR Assistive Devices (Toileting) commode, bedside without drop arms -MR Position (Toileting) unsupported sitting;supported standing -MR Row Name 10/30/24 1014 Bathing Assessment/Intervention [place] Level (Bathing) perineal area;other (see comments);contact guard [...] Review/Discharge Plan (OT) Anticipated Discharge Disposition (OT) [facility] facility -MR Row Name 10/30/24 1018 Vital [...] Therapist Occupational Therapy Education Title: PT OT THEATER MANAGER Therapies (In Progress) Topic: Occupational Therapy (In [...] OT Received On 10/30/24 -MR Timed Charges 74372 - OT Therapeutic Activity Minutes 10 -MR 65456 - OT Self Care/Mgmt Minutes 16 -MR Total Minutes Timed Charges Total Minutes 26 -MR Total Minutes 26 -MR User Carmona (r) = Recorded By, (t) = Taken By, (c) = Cosigned By Initials Name Provider Type Jaylin Bobby ENRIQUE Occupational Therapist Therapy Charges for Today Code Description Service Date Service Provider Modifiers Qty [id number] OT THERAPEUTIC ACT EA 15 MIN 10/30/2024 Jaylin Concepcion OT GO 1 [id number] OT SELF CARE/MGMT/TRAIN EA 15 MIN 10/30/2024 [...] Mobility Bed Mobility supine-sit;scooting/bridging (P) -ST Scooting/Bridging [place] (Bed Mobility) verbal cues;standby assist (P) -ST Supine-Sit [place] (Bed Mobility) verbal cues;standby assist (P) -ST [...] Row Name 10/29/24 1519 Sit-Stand Transfer Sit-Stand [place] (Transfers) minimum assist (75% patient effort);1 person assist;verbal cues (P) -ST Assistive Device (Sit-Stand Transfers) walker, front-wheeled (P) -ST Comment, (Sit-Stand Transfer) 1x STS from EOB, 5x STS from chair, 1x STS from commode w/ 1x assist and verbal cues to complete safely. (P) -ST Row Name 10/29/24 1519 Gait/Stairs (Locomotion) [place] Level (Gait) contact guard (P) -ST Assistive [...] Wu, PT Student PT Student Obj/Interventions [facility] Name 10/29/24 152 Motor Skills Therapeutic Exercise hip (P) -ST [facility] Name 10/29/24 152 Hip (Therapeutic Exercise) Hip (Therapeutic Exercise) strengthening exercise (P) 5 x STS from chair with cues for upright trunk and safe FWW use. -[facility] Name 10/29/24 152 Balance Balance [...] Student Goals/Plan No documentation. Clinical Impression [facility] Name 10/29/24 152 Pain Pretreatment Pain Rating 0/10 - no pain (P) -ST Posttreatment Pain Rating 0/10 - no pain (P) -ST [facility] 10/29/24 152 Plan of Care Review Plan [...] to SNF upon D/C. (P) -ST [facility] Name 10/29/24 152 Therapy Assessment/Plan (PT) Criteria [...] Minutes)-5 -BL Row Name 10/29/24 1531 Modified Hooker Scale Pre-Stroke Modified Hooker Scale 6 - Unable to determine (UTD) from the medical record documentation (P) -ST Modified Hooker Scale 3 - Moderate disability. Requiring some help, but able to walk without assistance. (P) -ST User Carmona (r) = Recorded By, (t) = Taken By, (c) = Cosigned By Initials Name Provider Type Ronnie Carter, RN Registered Nurse Edil Mukherjee, PT Student PT Student Physical Therapy Education Title: PT OT THEATER MANAGER Therapies (In Progress) Topic: Physical Therapy (In [...] Due Date 11/07/24 (P) -ST Timed Charges 07665 - Gait Training Minutes 13 (P) -ST 77776 - PT Therapeutic Activity Minutes 13 (P) -ST Total Minutes Timed Charges Total Minutes 26 (P) -ST Total Minutes 26 (P) -ST User Carmona (r) = Recorded By, (t) = Taken By, (c) = Cosigned By Initials Name Provider Type ST Edil Franklin, PT Student PT Student Therapy Charges for Today Code Description Service Date Service Provider Modifiers Qty [id number] HC GAIT TRAINING EA 15 MIN 10/29/2024 Edil Franklin, PT Student GP 1 [id number] HC PT THERAPEUTIC ACT EA 15 MIN [...] Discharge Summary Anticipated Discharge Disposition (PT): (P) [facility] facility Edil Franklin PT Student 10/29/2024 Cosigned by Yvonne Felder PT at 10/29/2024 3:55 PM EDT Associated attestation - Yvonne Felder PT - 10/29/2024 3:55 PM EDT Yvonne Felder PT, DPT, CSRS * Case Management/Social Work - Han Martin, RN - 10/29/2024 11:19 AM EDT Continued Stay Note [facility] Patient Name: Jessica Burnham Today's Date: 10/29/2024 Admit Date: 10/26/2024 Plan: [facility] Discharge Plan Row Name 10/29/24 1119 Plan Plan [facility] Patient/Family in Agreement with Plan yes Plan Comments CM faxed a referral to [facility] [place] [facility]. CM will continue to follow. Final Discharge Disposition Code 03 - [facility] facility (SNF) Row Name 10/29/24 0928 Plan Plan [place] SN[place] Patient/Family in Agreement with Plan yes Plan Comments Spoke with patient at bedside. Lives alone in [place] Has caregiver 4-5 days a week. Contact is Saranya Raul (daughter/POA) [phone]. Is independent with ADL's. No problems affording VA or medications. Uses [place] pharmacy. Uses a straight cane. No HH. PCP is [facility]. Plan is [place] SNF.Family will transport. CM will continue to follow. Final Discharge Disposition Code 03 - [facility] facility (SNF) Discharge Codes No documentation. Expected Discharge Date and Time Expected Discharge Date Expected Discharge Time Oct 29, 2024 Han Martin, RN * Case Management/Social Work - Han Martin RN - 10/29/2024 9:30 AM EDT Images from the original note were not included. Discharge Planning Assessment [facility] Patient Name: Jessica Burnham Today's Date: 10/29/2024 Admit Date: 10/26/2024 Plan: [place] SN[place] Discharge Needs Assessment Row Name 10/29/24 [...] adult Family Caregiver Names Saranya Carter (daughter) [phone] Able to Return to Prior Arrangements yes [...] in last 30 days Current Outpatient/Agency/Support Group [facility] facility Equipment Currently Used at Home cane, [...] Needed After Discharge none Outpatient/Agency/Support Group Needs [facility] facility Discharge Facility/Level of Care Needs nursing [...] with patient at bedside. Lives alone in [place]. Has caregiver 4-5 days a week. Contact is Saranya Carter (daughter/POA) [phone]. Is independent with ADL's. No problems affording [facility] or medications. Uses [place] pharmacy. Uses a straight cane. No HH. PCP is [facility]. Plan is [place] SNF.Family will transport. CM will continue to follow. Final Discharge Disposition Code 03 - [facility] facility (SNF) Continued Care and Services - Admitted Since 10/26/2024 No active coordination exists. Expected Discharge Date and Time Expected Discharge Date Expected Discharge Time Oct 29, 2024 Demographic Summary Row Name 10/29/24 0982 General Information Admission Type inpatient Arrived From hospital Referral Source admission list Reason for Consult discharge planning Preferred Language Peruvian Contact Information Permission Granted to Share Info With case reviewerassembly manager Information Obtained for case reviewerassembly manager Status Row Name 10/29/24 0925 Functional [...] per chart review he is from a snf. -AJ Existing Precautions/Restrictions fall;other (see comments) dementia -AJ Barriers to Rehab previous functional deficit;cognitive status -AJ Row Name 10/28/24 1529 Living Environment Current Living Arrangements residential facility;other (see comments) Difficult to determine if he is in a SNF for rehab or usp. - People in Home facility resident - [...] Bed Mobility Bed Mobility supine-sit - Supine-Sit [place] (Bed Mobility) minimum assist (75% patient effort);1 person assist;verbal cues - Bed Mobility, Safety Issues cognitive deficits limit understanding - Assistive Device (Bed Mobility) head of bed elevated;bed rails - Comment, (Bed Mobility) Cues for task initiation - Row Name 10/28/241532 Transfers Transfers sit-stand transfer;toilet transfer - Row Name 10/28/241532 Sit-Stand Transfer Sit-Stand [place] (Transfers) minimum assist (75% patient effort);2 person assist;verbal cues - Assistive Device (Sit-Stand Transfers) walker, front-wheeled -JOSE MARIA Comment, (Sit-Stand Transfer) minAx2 and cues for HP - Row Name 10/28/24 153 Toilet Transfer Type (Toilet Transfer) sit-stand;stand-sit - [place] Level (Toilet Transfer) minimum assist (75% patient [...] Mobility-Distance (Feet) -- to and from bathroom -[facility] 10/28/241532 Activities of Daily Living BADL Assessment/Intervention upper body dressing;lower body dressing;grooming;toileting -[facility] 10/28/241532 Upper Body Dressing Assessment/Training [place] Level (Upper Body Dressing) don;doff;front opening garment;moderate assist (50% patient effort) - Position (Upper Body Dressing) unsupported sitting -[facility] 10/28/241532 Lower Body Dressing Assessment/Training [place] Level (Lower Body Dressing) doff;don;socks;maximum assist (25% patient effort);dependent (less than 25% patient effort) - Position (Lower Body Dressing) unsupported sitting -[facility] 10/28/241532 Grooming Assessment/Training [place] Level (Grooming) wash face, hands;set up - Position (Grooming) supported sitting -[facility] 10/28/241532 Toileting Assessment/Training [place] Level (Toileting) adjust/manage clothing;perform perineal hygiene;dependent (less than25% patient effort) - Assistive Devices (Toileting) commode - Position (Toileting) unsupported sitting;supported standing - User Carmona (r) = Recorded By, (t) = Taken By, (c) = Cosigned By Initials Name Provider Type Pearl oHlt OT Occupational Therapist Obj/Interventions [facility] 10/28/241537 Sensory Assessment (Somatosensory) Sensory Assessment (Somatosensory) UE sensation intact -[facility] 10/28/241537 Vision Assessment/Intervention Visual Impairment/Limitations unable/difficult to assess -[facility] 10/28/241537 Range of Motion Comprehensive General Range of Motion bilateral upper extremity ROM WFL -[facility] 10/28/241537 Strength Comprehensive (MMT) General Manual Muscle Testing (MMT) Assessment upper extremity strength deficits identified - Comment, General Manual Muscle Testing (MMT) Assessment BUE grossly 4/5 based on bed mobility and transfers; limited formal assessment d/t poor direction following -[facility] 10/28/241537 Balance Balance Assessment sitting static [...] OT) sit to supine;supine to sit -AJ [place] Level/Cues Needed (Bed Mobility Goal 1, OT) standby assist -AJ Time Frame (Bed Mobility Goal 1, OT) usp goal (LTG);10 days -AJ Progress/Outcomes (Bed Mobility Goal 1, OT) new goal - Row Name 10/28/24 1543 Transfer Goal 1 (OT) Activity/Assistive Device (Transfer Goal 1, OT) aba-hn-tntuw/rcfvl-wn-fmv;jku-ca-pucez/awptd-qc-uvd;toilet -AJ [place] Level/Cues Needed (Transfer Goal 1, OT) standby assist -AJ Time Frame (Transfer Goal 1, OT) usp goal (LTG);10 days -AJ Progress/Outcome (Transfer Goal 1, OT) new goal - Row Name 10/28/24 1543 Toileting Goal 1 (OT) Activity/Device (Toileting Goal 1, OT) adjust/manage clothing;perform perineal hygiene -AJ [place] Level/Cues Needed (Toileting Goal 1, OT) maximum [...] Review/Discharge Plan (OT) Anticipated Discharge Disposition (OT) [facility] facility - Row Name 10/28/24 1539 Vital [...] Minutes)-5 -BL Row Name 10/28/24 1544 Modified Hooker Scale Pre-Stroke Modified Hooker Scale 6 - Unable to determine (UTD) from the medical record documentation - Modified Hooker Scale 3 - Moderate disability. Requiring some help, but able to walk without assistance. - Row Name 10/28/24 1544 10/28/24 1536 Functional Assessment Outcome Measure Options AM-PAC 6 Clicks Daily Activity (OT);Modified Hooker - AM-PAC 6 Clicks Basic Mobility (PT) -MAI User Carmona (r) = Recorded By, (t) = Taken By, (c) = Cosigned By Initials Name Provider Type Jennifer Olvera, PT Physical Therapist Ronnie Salas, RN Registered Nurse Pearl Eisenberg OT Occupational Therapist Occupational Therapy Education Title: PT OT THEATER MANAGER Therapies (In Progress) Topic: Occupational Therapy (In Progress) Point: ADL training (Done) Learning Progress Summary Patient Acceptance, E,D, VU,NR by at 10/28/20241544 Point: Precautions (Done) Learning Progress Summary Patient Acceptance, E,D, VU,NR by JOSE MARIA at 10/28/20241544 Point: Body mechanics (Done) Learning Progress Summary Patient Acceptance, E,D, VU,NR by at 10/28/20241544 User Carmona Initials Effective Dates Name Provider Type [facility] 12/12/23 - Pearl Holt OT Occupational [...] Description Service Date Service Provider Modifiers Qty [id number] OT EVAL LOW COMPLEXITY 4 10/28/2024 Pearl [...] Bed Mobility Bed Mobility supine-sit -MAI Supine-Sit [place] (Bed Mobility) verbal cues;nonverbal cues (demo/gesture);minimum assist (75% patient effort) -MAI Assistive Device (Bed Mobility) head of bed elevated;bed rails -MAI Comment, (Bed Mobility) Pt utilized bed rail -MAI Row Name 10/28/24 1528 Transfers Comment, (Transfers) Cues for sequencing and hand placement with FWW. -MAI Row Name 10/28/24 1528 Sit-Stand Transfer Sit-Stand [place] (Transfers) minimum assist (75% patient effort) -MAI Assistive Device (Sit-Stand Transfers) walker, front-wheeled -MAI Comment, (Sit-Stand Transfer) VCs -MAI Row Name 10/28/24 1528 Gait/Stairs (Locomotion) [place] Level (Gait) contact guard -MAI Assistive Device [...] PT) sit to supine/supine to sit -MAI [place] Level/Cues Needed (Bed Mobility Goal 1, PT) independent -MAI Time Frame (Bed Mobility Goal 1, PT) termite renewal inspector goal (LTG);10 days -MAI Row Name 10/28/241534 Transfer Goal 1 (PT) Activity/Assistive Device (Transfer Goal 1, PT) cmr-sc-wrfap/qggcu-vx-mmf -MAI [place] Level/Cues Needed (Transfer Goal 1, PT) modified independence -MAI Time Frame (Transfer Goal 1, PT) short term goal (STG);5 days - Row Name 10/28/241534 Gait Training Goal 1 (PT) Activity/Assistive Device (Gait Training Goal 1, PT) gait (walking locomotion);assistive device use-MAI [place] Level (Gait Training Goal 1, PT) modified independence -MAI Distance (Gait Training Goal 1, PT) 100 -MAI Time Frame (Gait Training Goal 1, PT) termite renewal inspector goal (LTG);10 days -MAI Row Name 10/28/24 [...] Nurse Physical Therapy Education Title: PT OT THEATER MANAGER Therapies (In Progress) Topic: Physical Therapy (In [...] Description Service Date Service Provider Modifiers Qty [id number] HC-PT EVAL MOD COMPLEXITY 5 10/28/2024 Jennifer Hendrickson, PT 1 PT G-Codes Outcome Measure Options: AM-PAC 6 Clicks Basic Mobility (PT) AM-PAC 6 Clicks Score (PT): 18 PT Discharge Summary Anticipated Discharge Disposition (PT): [facility] facility Jennifer Hendrickson PT 10/28/2024 * Therapy Evaluation - Sissy Lopez MS CCC-THEATER MANAGER - 10/27/2024 2:46 PM EDT Images from the original note were not included. Acute Care - Speech Language Pathology Swallow Initial Evaluation [facility] Clinical Swallow Evaluation Cognitive-Communication Evaluation Patient Name: Jessica Burnham : 1935 Today's Date: 10/27/2024 Admit Date: 10/26/2024 Visit Dx: No diagnosis found. Patient Active Problem List Diagnosis Stroke-like symptoms No past medical history on file. No past surgical history on file. THEATER MANAGER Recommendation and Plan THEATER MANAGER Swallowing Diagnosis: functional oral phase, R/O pharyngeal dysphagia, suspected esophageal dysphagia (10/27/24 1300) THEATER MANAGER Diet Recommendation: puree, thin liquids, other (see comments) (pureed for comfort as pt c/o solids sticking in his esophagus) (10/27/24 1300) Recommended Precautions and Strategies: upright posture during/after eating, small bites of food and sips of liquid, reflux precautions (10/27/24 1300) THEATER MANAGER Rec. for Method of Medication Administration: meds whole, meds crushed, with puree, as tolerated (10/27/241299) Monitor for Signs of Aspiration: notify THEATER MANAGER if any concerns (10/27/241299) Recommended Diagnostics: other (see comments) (diet tolerance, MBS if any concerns after GI sees) (10/27/241299) Swallow Criteria for Skilled Therapeutic Interventions Met: demonstrates skilled criteria () Anticipated Discharge Disposition (THEATER MANAGER): [facility] facility (10/27/241299) Rehab Potential/Prognosis, Swallowing: good, to [...] indicated (10/27/241299) SWALLOW EVALUATION (Last 72 Hours) THEATER MANAGER Adult Swallow Evaluation Row Name 10/27/241299 General [...] aspiration;Risks of aspiration;Oral care recommendationsand rationale -CH THEATER MANAGER Evaluation Clinical Impression THEATER MANAGER Swallowing Diagnosis functional oral phase;R/O pharyngeal dysphagia;suspected esophageal dysphagia - Functional Impact risk of aspiration/pneumonia;risk of malnutrition - Rehab Potential/Prognosis, Swallowing good, to achieve stated therapy goals - Swallow Criteria for Skilled Therapeutic Interventions Met demonstrates skilled criteria - Recommendations Therapy Frequency (Swallow) PRN;5 days per week - THEATER MANAGER Diet Recommendation puree;thin liquids;other (see comments) pureed for comfort as pt c/o solidssticking in his esophagus - Recommended Diagnostics other (see comments) diet tolerance, MBS if any concerns after GI sees - Recommended Precautions and Strategies upright posture during/after eating;small bites of food and sips of liquid;reflux precautions - Oral Care Recommendations Oral Care BID/PRN;Toothbrush - THEATER MANAGER Rec. for Method of Medication Administration meds whole;meds crushed;with puree;as tolerated - Monitor for Signs of Aspiration notify THEATER MANAGER if any concerns - Demonstrates Need for Referral to Another Service gastroenterology;dedicated esophageal assessment - Swallowing Considerations per Physician Discretion medical management of suspected esophageal dysphagia, as indicated - User Carmona (r) = Recorded By, (t) = Taken By, (c) = Cosigned By Initials Name Effective Dates Sissy Lopez, [facility]-THEATER MANAGER 05/07/24 - EDUCATION The patient has been educated in the following areas: Dysphagia (Swallowing Impairment) Oral Care/Hydration Modified Diet Instruction. THEATER MANAGER GOALS Row Name 10/27/24 1300 (LTG) Patient will demonstrate functional swallow for Diet Texture (Demonstrate functional swallow) mechanical ground textures - Liquid viscosity (Demonstrate functional swallow) thin liquids - [place] (Demonstrate functional swallow) with minimal cues (75-90% accuracy) - Time Frame (Demonstrate functional swallow) 1 week - (STG) Patient will tolerate trials of Consistencies Trialed (Tolerate trials) pureed textures;thin liquids - Desired Outcome (Tolerate trials) without signs/symptoms of aspiration;with adequate oral prep/transit/clearance - [place] (Tolerate trials) with minimal cues (75-90% accuracy) - Time Frame (Tolerate trials) 1 week - Patient will demonstrate functional cognitive-linguistic skills for return to discharge environment [place] with minimal cues - Time frame 1 week - THEATER MANAGER Diagnostic Treatment Patient will participate in further assessment in the following areas clarification of baseline cognitive communication status - Time Frame (Diagnostic) 1 week -CH Word Retrieval Skills Goal 1 (THEATER MANAGER) Improve Word Retrieval Skills By Goal 1 (THEATER MANAGER) high frequency;responsive naming task;completing a divergent task;80%;with minimal cues (75-90%) - Time Frame (Word Retrieval Goal 1, THEATER MANAGER) 1 week -CH Orientation Goal 1 (THEATER MANAGER) Improve Orientation Through Goal 1 (THEATER MANAGER) demonstrating orientation to day;demonstrating orientationto month;demonstrating orientation to year;demonstrating orientation to place;demonstrating orientation to disease/impairment;use environmental aids to assist with orientation;80%;with minimal cues (75-90%) - Time Frame (Orientation Goal 1, THEATER MANAGER) 1 week -CH Memory Skills Goal 1 (THEATER MANAGER) Improve Memory Skills Through Goal 1 (THEATER MANAGER) recalling related word lists immediately;recall details of the day;90%;with minimal cues (75-90%) - Time Frame (Memory Skills Goal 1, THEATER MANAGER) 1 week - User Carmona (r) = Recorded By, (t) = Taken By, (c) = Cosigned By Initials Name Provider Type Sissy Saldana MS CCC-THEATER MANAGER Speech and Language Pathologist Time Calculation: Time Calculation- THEATER MANAGER Row Name 10/27/24 1439 Time Calculation- THEATER MANAGER THEATER MANAGER Start Time 1300 -CH THEATER MANAGER Received On 10/27/24 -CH Untimed Charges THEATER MANAGER Eval/Re-eval ST Eval Speech and Production w/ Language - 86910;ST Eval Oral Pharyng Swallow - 29442 -CH 38246-UU Eval Speech and Production w/ Language Minutes 40 -CH 18545-QI Eval Oral Pharyng Swallow Minutes 42 -CH Total Minutes Untimed Charges Total Minutes 82 -CH Total Minutes 82 -CH User Carmona (r) = Recorded By, (t) = Taken By, (c) = Cosigned By Initials Name Provider Type Sissy Saldana MS CCC-THEATER MANAGER Speech and Language Pathologist Therapy Charges for Today Code Description Service Date Service Provider Modifiers Qty 88597540095 HC ST EVAL ORAL PHARYNG SWALLOW 3 10/27/2024 Sissy Lopez MS CCC-THEATER MANAGER GN [id number] EVAL SPEECH AND PROD W LANG 3 10/27/2024 Sissy Lopez MS CCC-THEATER MANAGER GN 1 MS REZA Davalos 10/27/2024 and Acute Care - Speech Language Pathology Initial Evaluation [place] Patient Name: Jessica Burnham : 1935 Today's Date: 10/27/2024 Admit Date: 10/26/2024 Visit Dx: No diagnosis found. Patient Active Problem List Diagnosis Stroke-like symptoms No past medical history on file. No past surgical history on file. THEATER MANAGER Recommendation and Plan THEATER MANAGER Diagnosis: mild, cognitive-linguistic disorder (10/27/241299) Monitor for Signs of Aspiration: notify THEATER MANAGER if any concerns (10/27/241299) Swallow Criteria for Skilled Therapeutic Interventions Met: demonstrates skilled criteria () SLC Criteria for Skilled Therapy Interventions Met: yes (10/27/241299) Anticipated Discharge Disposition (THEATER MANAGER): [facility] facility (10/27/241299) Demonstrates Need for Referral to Another Service: gastroenterology, dedicated esophageal assessment (10/27/241299) Therapy Frequency (Swallow): PRN, 5 days per week (10/27/241299) Therapy Frequency (THEATER MANAGER SLC): 5 days per week (10/27/241299) Predicted Duration Therapy Intervention (Days): 1 week (10/27/241299) Oral Care Recommendations: Oral Care BID/PRN, Toothbrush (10/27/241299) THEATER MANAGER EVALUATION (Last 72 Hours) THEATER MANAGER SLC Evaluation Row Name 10/27/241299 Communication Assessment/Intervention [...] Resonance (Voice) WNL -CH Cognitive Assessment Intervention- THEATER MANAGER Cognitive Function (Cognition) mild impairment -CH Orientation Status (Cognition) awareness of basic personal information;person;WFL;place;time;situation;mild impairment -CH Memory (Cognitive) simple;immediate;long-term;WFL;short-term;delayed;mild impairment -CH Attention (Cognitive) selective;sustained;WFL;attention to detail;mild impairment -CH Thought Organization (Cognitive) concrete divergent;abstract divergent;concrete convergent;abstractconvergent;verbal sequencing;mild impairment -CH Reasoning (Cognitive) simple;deductive;WFL -CH THEATER MANAGER Evaluation Clinical Impressions THEATER MANAGER Diagnosis mild;cognitive-linguistic disorder -CH Rehab Potential/Prognosis good - SLC Criteria for Skilled Therapy Interventions Met yes - Recommendations Therapy Frequency (THEATER MANAGER SLC) 5 days per week -CH Predicted Duration Therapy Intervention (Days) 1 week - Anticipated Discharge Disposition (THEATER MANAGER) [facility] facility - User Carmona (r) = Recorded By, (t) = Taken By, (c) = Cosigned By Initials Name Effective Dates Sissy Saldana MS CCC-THEATER MANAGER 05/07/24 - EDUCATION The patient has been educated in the following areas: Cognitive Impairment Communication Impairment. THEATER MANAGER GOALS Row Name 10/27/24 1300 (LTG) Patient will demonstrate functional swallow for Diet Texture (Demonstrate functional swallow) mechanical ground textures -CH Liquid viscosity (Demonstrate functional swallow) thin liquids -CH [place] (Demonstrate functional swallow) with minimal cues (75-90% accuracy) - Time Frame (Demonstrate functional swallow) 1 week -CH (STG) Patient will tolerate trials of Consistencies Trialed (Tolerate trials) pureed textures;thin liquids -CH Desired Outcome (Tolerate trials) without signs/symptoms of aspiration;with adequate oral prep/transit/clearance -CH [place] (Tolerate trials) with minimal cues (75-90% accuracy) - Time Frame (Tolerate trials) 1 week -CH Patient will demonstrate functional cognitive-linguistic skills for return to discharge environment [place] with minimal cues -CH Time frame 1 week -CH THEATER MANAGER Diagnostic Treatment Patient will participate in further assessment in the following areas clarification of baseline cognitive communication status - Time Frame (Diagnostic) 1 week - Word Retrieval Skills Goal 1 (THEATER MANAGER) Improve Word Retrieval Skills By Goal 1 (THEATER MANAGER) high frequency;responsive naming task;completing a divergent task;80%;with minimal cues (75-90%) - Time Frame (Word Retrieval Goal 1, THEATER MANAGER) 1 week - Orientation Goal 1 (THEATER MANAGER) Improve Orientation Through Goal 1 (THEATER MANAGER) demonstrating orientation to day;demonstrating orientationto month;demonstrating orientation to year;demonstrating orientation to place;demonstrating orientation to disease/impairment;use environmental aids to assist with orientation;80%;with minimal cues (75-90%) - Time Frame (Orientation Goal 1, THEATER MANAGER) 1 week - Memory Skills Goal 1 (THEATER MANAGER) Improve Memory Skills Through Goal 1 (THEATER MANAGER) recalling related word lists immediately;recall details of the day;90%;with minimal cues (75-90%) - Time Frame (Memory Skills Goal 1, THEATER MANAGER) 1 week - User Carmona (r) = Recorded By, (t) = Taken By, (c) = Cosigned By Initials Name Provider Type Sissy Saldana MS [facility]-THEATER MANAGER Speech and Language Pathologist Time Calculation: Time Calculation- THEATER MANAGER Row Name 10/27/24 1749 Time Calculation- THEATER MANAGER THEATER MANAGER Start Time 1300 - THEATER MANAGER Received On 10/27/24 - Untimed Charges THEATER MANAGER Eval/Re-eval ST Eval Speech and Production w/ Language - 99591;ST Eval Oral Pharyng Swallow - 38990 - 15569-FE Eval Speech and Production w/ Language Minutes 40 -CH 44058-SS Eval Oral Pharyng Swallow Minutes 42 -CH Total Minutes Untimed Charges Total Minutes 82 -CH Total Minutes 82 -CH User Carmona (r) = Recorded By, (t) = Taken By, (c) = Cosigned By Initials Name Provider Type Sissy Lopez MS CCC-THEATER MANAGER Speech and Language Pathologist Therapy Charges for Today Code Description Service Date Service Provider Modifiers Qty [id number] HC ST EVAL ORAL PHARYNG SWALLOW 3 10/27/2024 Sissy Lopez MS CCC-THEATER MANAGER GN [id number] EVAL SPEECH AND PROD W LANG 3 10/27/2024 Sissy Lopez MS CCC-THEATER MANAGER GN 1 MS REZA Davalos 10/27/2024 documented in this encounter Plan of Treatment Not on file documented as of this encounter Procedures Procedure Name Priority Date/Time Associated Diagnosis Comments URINALYSIS, MICROSCOPIC ONLY Routine 10:12 AM EDT URINALYSIS W/ CULTURE IF INDICATED Routine 10/30/2024 10:12 AM EDT MT ESOPHAGOGASTRODUODENOSCOP Y TRANSORAL DIAGNOSTIC 10/29/2024 9:30 AM [...] Seen, 0-2 /HPF 10/30/2024 10:31 AM EDT [facility] WBC, UA 0-2 None Seen, 0-2 /HPF 10/30/2024 10:31 AM EDT [facility] Comment:Urine culture not in dicated. Bacteria, UA None Seen None Seen /HPF 10/30/2024 10:31 AM EDT [facility] Squamous Epithelial Cells, UA 0-2 None Seen, 0-2 /HPF 10/30/2024 10:31 AM EDT [facility] Hyaline Casts, UA None Seen None Seen /LPF 10/30/2024 10:31 AM EDT [facility] Methodology Automated Microscopy 10/30/2024 10:31 AM EDT [facility] Urine Urine specimen obtained by clean catch procedure / Unknown Collection / Unknown 10/30/2024 10:12 AM EDT 10/30/2024 10:12 AM EDT us Che Kiser GRINDER NEEDLE TIP URINE ORDERABLES F inal Result [facility]
[address] [place] [address], * (ABNORMAL) Urinalysis With Culture If Indicated - Urine, Clean Catch (10/30/2024 10:12 AM EDT) Color, UA Yellow Yellow, Straw 10/30/2024 10:31 AM EDT [facility] Appearance, UA Clear Clear 10/30/2024 10:31 AM EDT [facility] pH, UA 7.0 5.0 - 8.0 10/30/2024 10:31 AM EDT [facility] Specific [place], UA 1.011 1.005 - 1.030 10/30/2024 10:31 AM EDT [facility] Glucose, UA Negative Negative 10/30/2024 10:31 AM EDT [facility] Ketones, UA Negative Negative 10/30/2024 10:31 AM EDT [facility] Bilirubin, UA Negative Negative 10/30/2024 10:[facility] Blood, UA Negative Negative 10/30/2024 10:31 AM EDT [facility] Protein, UA 30 mg/dL (1+)(A) Negative 10/30/2024 10:31 AM EDT [facility] Leuk Esterase, UA Moderate (2+)(A) Negative 10/30/2024 10:31 AM EDT [facility] Nitrite, UA Negative Negative 10/30/2024 10:31 AM [facility] Urobilinogen, UA 1.0 E.U./dL 0.2 - 1.0 E.U./dL 10/30/2024 10:31 AM T [facility] Urine Urine specimen obtained by clean catch procedure / Unknown Collection / Unknown 10/30/2024 10:12 AM EDT 10/30/2024 10:12 AM EDT [facility] - 10/30/2024 10:31 AM EDT In absence of clinical symptoms, the presence of pyuria, bacteria, and/or nitrites on the urinalysis result does not correlate with infection. us Che Kiser GRINDER NEEDLE TIP URINE ORDERABLES F inal Result [facility]
[address] [place] [address], * Upper GI Endoscopy (10/29/2024 9:19 AM [...] - 99 mg/dL 10/28/2024 9:56 AM EDT [facility] BUN 21.0 8.0 - 23.0 mg/dL 10/28/2024 9:56 AM EDT [facility] Creatinine 1.10 0.76 - 1.27 mg/dL 10/28/2024 9:56 AM EDT [facility] Sodium 140 136 - 145 mmol/L 10/28/2024 9:56 AM EDT [facility] Potassium 4.0 3.5 - 5.2 mmol/L 10/28/2024 9:56 AM EDT [facility] Chloride 104 98 - 107 mmol/L 10/28/2024 9:56 AM EDT [facility] CO2 24.0 22.0 - 29.0 mmol/L 10/28/2024 9:56 AM EDT [facility] Calcium 9.2 8.6 - 10.5 mg/dL 10/28/2024 9:56 AM EDT [facility] BUN/Creatinine Ratio 19.1 7.0 - 25.0 10/28/2024 9:56 AM EDT [facility] Anion Gap 12.0 5.0 - 15.0 mmol/L 10/28/2024 9:56 AM EDT [facility] eGFR 64.2 >60.0 mL/min/1.7 3 10/28/2024 9:56 AM EDT [facility] Blood Venipuncture / Unknown 10/28/2024 8:42 AM EDT 10/28/2024 9:09 AM EDT [facility] - 10/28/2024 9:56 AM EDT [...] MD LAB BLOOD ORDERABLES Final Res ult [facility]
[address] [place] [address], * CBC (No Diff) (10/28/2024 8:42 AM EDT) WBC 4.81 3.40 - 10.80 10*3/mm3 10/28/2024 9:16 AM EDT [facility] RBC 5.42 4.14 - 5.80 10*6/mm3 10/28/2024 9:16 AM EDT [facility] Hemoglobin 14.9 13.0 - 17.7 g/dL 10/28/2024 9:16 AM EDT [facility] Hematocrit 43.1 37.5 - 51.0 % 10/28/2024 9:16 AM EDT [facility] MCV 79.5 79.0 - 97.0 fL 10/28/2024 9:16 AM EDT [facility] MCH 27.5 26.6 - 33.0 pg 10/28/2024 9:16 AM EDT [facility] MCHC 34.6 31.5 - 35.7 g/dL 10/28/2024 9:16 AM EDT [facility] RDW 15.1 12.3 - 15.4 % 10/28/2024 9:16 AM EDT [facility] RDW-SD 43.6 37.0 - 54.0 fl 10/28/2024 9:16 AM EDT [facility] MPV 10.9 6.0 - 12.0 fL 10/28/2024 9:16 AM EDT [facility] Platelets 168 140 - 450 10*3/mm3 10/28/2024 9:16 AM EDT [facility] Blood Venipuncture / Unknown 10/28/2024 8:42 AM EDT 10/28/2024 9:09 AM EDT Saeed Monique MD LAB BLOOD ORDERABLES Final Res ult [facility]
[address] [place] [address], * ECG 12 Lead QT Measurement (10/28/2024 12:32 AM EDT) [facility] QT Interval 398 ms ECG QTC Interval [...] Seen, 0-2 /HPF 10/28/2024 2:13 AM EDT [facility] WBC, UA 0-2 None Seen, 0-2 /HPF 10/28/2024 2:13 AM EDT [facility] Comment:Urine culture not in dicated. Bacteria, UA 1+(A) None Seen /HPF 10/28/2024 2:13 AM EDT [facility] Squamous Epithelial Cells, UA 0-2 None Seen, 0-2 /HPF 10/28/2024 2:13 AM EDT [facility] Hyaline Casts, UA None Seen None Seen /LPF 10/28/2024 2:13 AM EDT [facility] Methodology Manual Light Microscopy 10/28/2024 2:13 AM EDT [facility] Urine Urine specimen obtained by clean catch procedure / Unknown Collection / Unknown 10/28/2024 12:09 AM EDT 10/28/2024 1:00 AM EDT Gal Weiner PA-C URINE ORDERABLES Fin al Result [facility]
[address] [place] [address], * (ABNORMAL) Urinalysis With Culture If Indicated - Urine, Clean Catch (10/28/2024 12:09 AM EDT) Color, UA Yellow Yellow, Straw 10/28/2024 1:18 AM EDT [facility] Appearance, UA Clear Clear 10/28/2024 1:18 AM EDT [facility] pH, UA 8.0 5.0 - 8.0 10/28/2024 1:18 AM EDT [facility] Specific [place], UA 1.013 1.005 - 1.030 10/28/2024 1:18 AM EDT [facility] Glucose, UA Negative Negative 10/28/2024 1:18 AM EDT [facility] Ketones, UA Negative Negative 10/28/2024 1:18 AM EDT [facility] Bilirubin, UA Negative Negative 10/28/2024 1:18 AM EDT [facility] Blood, UA Negative Negative 10/28/2024 1:18 AM EDT [facility] Protein, UA 30 mg/dL (1+)(A) Negative 10/28/2024 1:18 AM EDT [facility] Leuk Esterase, UA Trace(A) Negative 10/28/2024 1:18 AM EDT [facility] Nitrite, UA Negative Negative 10/28/2024 1:18 AM EDT [facility] Urobilinogen, UA 1.0 E.U./dL 0.2 - 1.0 E.U./dL 10/28/2024 1:18 AM EDT [facility] Urine Urine specimen obtained by clean catch procedure / Unknown Collection / Unknown 10/28/2024 12:09 AM EDT 10/28/2024 1:00 AM EDT Narrative [facility] - 10/28/2024 1:18 AM EDT In absence of clinical symptoms, the presence of pyuria, bacteria, and/or nitrites on the urinalysis result does not correlate with infection. Gal Weiner PA-C URINE ORDERABLES Fin al Result Performing Organization Address [facility]/ZIP Co de Phone Number [facility]
[address] [place] [address], * Magnesium (10/27/2024 11:54 PM EDT) Magnesium 2.2 1.6 - 2.4 mg/dL 10/28/2024 12:35 AM EDT [facility] Blood Venipuncture / Unknown 10/27/2024 11:54 PM EDT 10/28/2024 12:04 AM EDT Gal Weiner PA-C LAB BLOOD ORDERABLES Final Result Performing Organization Address City/[facility] Co de Phone Number [facility]
[address] [place] [address], * (ABNORMAL) CBC Auto Differential (10/27/2024 11:54 PM EDT) WBC 5.07 3.40 - 10.80 10*3/mm3 10/28/2024 12:10 AM EDT [facility] RBC 5.20 4.14 - 5.80 10*6/mm3 10/28/2024 12:10 AM EDT [facility] Hemoglobin 14.6 13.0 - 17.7 g/dL 10/28/2024 12:10 AM EDT [facility] Hematocrit 41.5 37.5 - 51.0 % 10/28/2024 12:10 AM [facility] MCV 79.8 79.0 - 97.0 fL 10/28/2024 12:10 AM [facility] MCH 28.1 26.6 - 33.0 pg 10/28/2024 12:10 AM [facility] MCHC 35.2 31.5 - 35.7 g/dL 10/28/2024 12:10 AM [facility] RDW 15.6(H) 12.3 - 15.4 % 10/28/2024 12:10 AM [facility] RDW-SD 44.8 37.0 - 54.0 fl 10/28/2024 12:10 AM [facility] MPV 10.3 6.0 - 12.0 fL 10/28/2024 12:10 AM [facility] Platelets 161 140 - 450 10*3/mm3 10/28/2024 12:10 AM [facility] Neutrophil % 33.3(L) 42.7 - 76.0 % 10/28/2024 12:10 AM [facility] Lymphocyte % 43.6 19.6 - 45.3 % 10/28/2024 12:10 AM [facility] Monocyte % 17.4(H) 5.0 - 12.0 % 10/28/2024 12:10 AM [facility] Eosinophil % 4.3 0.3 - 6.2 % 10/28/2024 12:10 AM [facility] Basophil % 1.0 0.0 - 1.5 % 10/28/2024 12:10 AM [facility] Immature Grans % 0.4 0.0 - 0.5 % 10/28/2024 12:10 AM [facility] Neutrophils, Absolute 1.69(L) 1.70 - 7.00 10*3/mm3 10/28/2024 12:10 AM [facility] Lymphocytes, Absolute 2.21 0.70 - 3.10 10*3/mm3 10/28/2024 12:10 AM EDT [facility] Monocytes, Absolute 0.88 0.10 - 0.90 10*3/mm3 10/28/2024 12:10 AM EDT [facility] Eosinophils, Absolute 0.22 0.00 - 0.40 10*3/mm3 10/28/2024 12:10 AM EDT [facility] Basophils, Absolute 0.05 0.00 - 0.20 10*3/mm3 10/28/2024 12:10 AM EDT [facility] Immature Grans, Absolute 0.02 0.00 - 0.05 10*3/mm3 10/28/2024 12:10 AM EDT [facility] nRBC 0.0 0.0 - 0.2 /100 WBC 10/28/2024 12:10 AM EDT [facility] Blood Venipuncture / Unknown 10/27/2024 11:54 PM EDT 10/28/2024 12:08 AM EDT Gal Weiner PA-C LAB BLOOD ORDERABLES Final Result [facility]
[address] [place] [address], * Lactic Acid, Plasma (10/27/2024 11:54 PM EDT) [facility] Signature Lactate 1.3 0.5 - 2.0 mmol/L 10/28/2024 12:32 AM EDT [facility] Comment:Falsely depressed re sults may occur on samples drawn from patients receiving N-Acetylcysteine (NAC) or Metamizole. Blood Venipuncture / Unknown 10/27/2024 11:54 PM EDT 10/28/2024 12:04 AM EDT Gal Weiner PA-C LAB BLOOD ORDERABLES Final Result [facility]
[address] [place] [address], * (ABNORMAL) Comprehensive Metabolic Panel (10/27/2024 11:54 PM EDT) [facility] Glucose 80 65 - 99 mg/dL 10/28/2024 12:35 AM EDT [facility] BUN 21.7 8.0 - 23.0 mg/dL 10/28/2024 12:35 AM EDT [facility] Creatinine 1.08 0.76 - 1.27 mg/dL 10/28/2024 12:35 AM EDT [facility] Sodium 137 136 - 145 mmol/L 10/28/2024 12:35 AM EDT [facility] Potassium 4.1 3.5 - 5.2 mmol/L 10/28/2024 12:35 AM EDT [facility] Chloride 103 98 - 107 mmol/L 10/28/2024 12:35 AM EDT [facility] CO2 19.8(L) 22.0 - 29.0 mmol/L 10/28/2024 12:35 AM EDT [facility] Calcium 9.4 8.6 - 10.5 mg/dL 10/28/2024 12:35 AM EDT [facility] Total Protein 7.5 6.0 - 8.5 g/dL 10/28/2024 12:35 AM EDT [facility] Albumin 4.3 3.5 - 5.2 g/dL 10/28/2024 12:35 AM EDT [facility] ALT (SGPT) 23 1 - 41 U/L 10/28/2024 12:35 AM EDT [facility] AST (SGOT) 29 1 - 40 U/L 10/28/2024 12:35 AM EDT [facility] Alkaline Phosphatase 71 39 - 117 U/L 10/28/2024 12:35 AM EDT [facility] Total Bilirubin 0.4 0.0 - 1.2 mg/dL 10/28/2024 12:35 AM EDT [facility] Globulin 3.2 gm/dL 10/28/2024 12:35 AM EDT [facility] Comment:Calculated Result A/G Ratio 1.3 g/dL 10/28/2024 12:35 AM EDT [facility] BUN/Creatinine Ratio 20.1 7.0 - 25.0 10/28/2024 12:35 AM EDT [facility] Anion Gap 14.2 5.0 - 15.0 mmol/L 10/28/2024 12:35 AM EDT [facility] eGFR 65.6 >60.0 mL/min/1.7 3 10/28/2024 12:35 AM EDT [facility] Blood Venipuncture / Unknown 10/27/2024 11:54 PM EDT 10/28/2024 12:04 AM EDT [facility] - 10/28/2024 12:35 AM EDT [...] Weiner PA-C LAB BLOOD ORDERABLES Final Result [facility]
[address] [place] [address], * MRI Brain Without Contrast (10/27/2024 7:22 PM EDT) Anatomical Region Laterality Modality Head, Neck N/A Magnetic Resonan ce 10/27/2024 10:1 5 PM EDT Impressions 10/27/2024 10:17 PM EDT Impression: Advanced chronic and age-related changes are noted as above. There is otherwise no evidence of acute infarct, hemorrhage, mass or mass effect. Electronically Signed: Saulo Romo MD 10/27/2024 10:17 PM EDT Workstation ID: [id number] Narrative 10/27/2024 10:17 PM EDT MRI BRAIN [...] MD 10/27/2024 10:17 PM EDT Workstation ID: [id number] us Lamont Hernandez PA-C IMG MRI ORDERABLES Final Res ult * POC Glucose Once (10/27/2024 5:38 PM EDT) Glucose 117 70 - 130 mg/dL 10/27/2024 5:39 PM EDT [facility] Blood 10/27/2024 5:38 PM EDT 10/27/2024 5:39 PM EDT Saeed Monique MD POINT OF CARE TEST ORDERABLES Final Result Performing Organization Address [facility] Co de Phone Number [facility]
[address] [place], [place] [address], [place] [phone] * Fentanyl, Urine - Urine, Clean Catch (10/27/2024 3:18 PM EDT) Fentanyl, Urine Negative Negative 10/27/2024 4:39 PM EDT [facility] Urine Urine specimen obtained by clean catch procedure / Unknown Collection / Unknown 10/27/2024 3:18 PM EDT 10/27/2024 3:27 PM EDT Narrative [facility] - 10/27/2024 4:39 PM EDT [...] URINE ORDERABLES Final Result Performing Organization Address [facility] Co de Phone Number [facility]
[address] [place] [address], * Urine Drug Screen - Urine, Clean Catch (10/27/2024 3:18 PM EDT) [facility] THC, Screen, Urine Negative Negative 2024 4:17 PM EDT [facility] Phencyclidine (PCP), Urine Negative Negative 10/27/2024 4:17 PM EDT [facility] Cocaine Screen, Urine Negative Negative 10/27/2024 4:17 PM EDT [facility] Methamphetamine, Ur Negative Negative 10/27 4:17 PM EDT [facility] Opiate Screen Negative Negative 10/27/2024 4:17 PM EDT [facility] Amphetamine Screen, Urine Negative Negative 10/27/2024 4:17 PM EDT [facility] Benzodiazepine Screen, Urine Negative Negative 10/27/2024 4:17 PM EDT [facility] Tricyclic Antidepressants Screen Negative Negative 10/27/2024 4:17 PM EDT [facility] Methadone Screen, Urine Negative Negative 10/27/2024 4:17 PM EDT [facility] Barbiturates Screen, Urine Negative Negative 10/27/2024 4:17 PM EDT [facility] Oxycodone Screen, Urine Negative Negative 10/27/2024 4:17 PM EDT [facility] Buprenorphine, Screen, Urine Negative Negative 10/27/2024 4:17 PM EDT [facility] Urine Urine specimen obtained by clean catch procedure / Unknown Collection / Unknown 10/27/2024 3:18 PM EDT 10/27/2024 3:27 PM EDT [facility] - 10/27/2024 4:17 PM EDT [...] URINE ORDERABLES Final Result Performing Organization Address [facility] Co de Phone Number [facility]
[address] [place] [address], * EEG AWAKE OR DROWSY PORTABLE (10/27/2024 [...] ORDERABLES Fi nal Result Performing Organization Address [facility]/ZIP Co de Phone Number NEUROLOGY * POC Glucose Once (10/27/2024 11:15 AM EDT) Glucose 82 70 - 130 mg/dL 10/27/2024 11:16 AM EDT [facility] Blood 10/27/2024 11:1 5 AM EDT 10/27/2024 11:16 AM EDT Saeed Monique MD POINT OF CARE TEST ORDERABLES Final Result [facility]
[address] [place] [address], * Lipid Panel (10/27/2024 9:46 AM EDT) Total Cholesterol 138 0 - 200 mg/dL 10/27/2024 11:15 AM EDT [facility] Triglycerides 42 0 - 150 mg/dL 10/27/2024 11:15 AM EDT [facility] HDL Cholesterol 56 40 - 60 mg/dL 10/27/2024 11:15 AM EDT [facility] LDL Cholesterol 72 0 - 100 mg/dL 10/27/2024 11:15 AM EDT [facility] VLDL Cholesterol 10 5 - 40 mg/dL 10/27/2024 11:15 AM EDT [facility] LDL/HDL Ratio 1.31 10/27/2024 11:15 AM EDT [facility] Blood Venipuncture / Unknown 10/27/2024 9:46 AM EDT 10/27/2024 10:39 AM EDT [facility] - 10/27/2024 11:15 AM EDT [...] ORDERABLES Final R esult Performing Organization Address City/[facility] Co de Phone Number [facility]
[address] [place] [address], * Hemoglobin A1c (10/27/2024 9:46 AM EDT) Hemoglobin A1C 5.33 4.80 - 5.60 % 10/27/2024 12:28 PM EDT [facility] Blood Venipuncture / Unknown 10/27/2024 9:46 AM EDT 10/27/2024 10:40 AM EDT Narrative [facility] - 10/27/2024 12:28 PM EDT Hemoglobin A1C Ranges: Increased Risk for Diabetes 5.7% to 6.4% Diabetes >= 6.5% Diabetic Goal < 7.0% Lamont Hernandez PA-C LAB BLOOD ORDERABLES Final R esult Performing Organization Address City/[facility]/ZIP Co de Phone Number [facility]
[address] [place] [address], * POC Glucose Once (10/27/2024 1:03 AM EDT) Glucose 97 70 - 130 mg/dL 10/27/2024 1:03 AM EDT [facility] Blood 10/27/2024 1:03 AM EDT 10/27/2024 1:03 AM EDT us Thien Becker MD POINT OF CARE TEST ORDERABLES F inal Result Performing Organization Address [facility]/ZIP Co de Phone Number [facility]
[address] [place] [address], * Lactic Acid, Plasma (10/26/2024 11:21 PM EDT) Lactate 1.0 0.5 - 2.0 mmol/L 10/27/2024 12:03 AM EDT [facility] Comment:Falsely depressed re sults may occur on samples drawn from patients receiving N-Acetylcysteine (NAC) or Metamizole. Blood Venipuncture / Unknown 10/26/2024 11:21 PM EDT 10/26/2024 11:34 PM EDT May Nilay-Aristides GRINDER NEEDLE TIP LAB BLOOD ORDERABLES Fi nal Result Performing Organization Address [facility] Co de Phone Number [facility]
[address] [place] [address], * (ABNORMAL) CK (10/26/2024 11:21 PM EDT) Creatine Kinase 245(H) 20 - 200 U/L 10/27/2024 12:01 AM EDT [facility] Blood Venipuncture / Unknown 10/26/2024 11:21 PM EDT 10/26/2024 11:34 PM EDT us August Mary Katem-Momelanieafa GRINDER NEEDLE TIP LAB BLOOD ORDERABLES Fi nal Result Performing Organization Address City/[facility] Co de Phone Number [facility]
[address] [place] [address], [place] [phone] * CT Outside Head (10/26/2024 12:10 AM [...] Anatomical Region Laterality Modality Radiographic Guillermina ging [facility] IM[facility] DIAGNOSTIC IMAGING ORDERA BLES Final Result [...] Tue10/26/24 at 2000, If patient fails dysphagia, MT option MUST be given. Do not exceed [...] Tue10/26/24 at 1999, If patient fails dysphagia, MT option MUST be given. Do not exceed [...] day, May switch to NS IV at [facility] if renal / if indicated Currently Infusing [...] tablet 40 mg 40 mg, Oral, Every Installation Drafter, First dose on Tue11/01/24 at 0600, Do [...] injection 40 mg 40 mg, Intravenous, Every Installation Drafter, First dose (after last modification) on Tue10/30/24 [...] Tue10/26/24 at 2000, If patient fails dysphagia, MT option MUST be given. Do not exceed [...] Tue10/26/24 at 2000, If patient fails dysphagia, MT option MUST be given. Do not exceed [...] tablet 40 mg 40 mg, Oral, Every Installation Drafter, First dose on Tue11/01/24 at 0600, Do [...] 40 mg (CANCELED) 40 mg, Intravenous, Every Installation Drafter, First dose (after last modification) on Tue10/30/24 [...] Tue10/26/24 at 1999, If patient fails dysphagia, MT option MUST be given. Do not exceed [...] Tue10/26/24 at 1999, If patient fails dysphagia, MT option MUST be given. Do not exceed 4 grams of aspirin in a 24 hr period. If given for pain, use the following pain scale: Mild Pain = Pain Score of 1-3, CPOT 1-2 Moderate Pain = Pain Score of 4-6, CPOT 3-4 Severe Pain = Pain Score of 7-10, CPOT 5-8 documented in this encounter Care Teams Syrup Blender Relationship Specialty Start Date End Date Provider, [place] [address] PCP - General 10/26/24 documented as of this encounter
--- OUTSIDE RECORDS SUMMARY | 2024-10-29 09:04 | XMS_ITS | Encounter Summary ---
Author Organization [facility] Address [address] [place] [address] Care Team Providers Care Taxi Driver Supervisor Name Role Phone Provider, No Known Primary Care Provider Unavail able Reason for Visit * Auth/Cert Specialty Diagnoses / Procedures Referred By Rosangela t Referred To Contact Diagnoses Cerebrovascular Accident CVA Referral ID Status Reason Start Date Expiration Date Visits Re quested Visits Authorized [id number] 1 1 Encounter Details Date Type Department Care Team (Late st Contact Info) Description 10/29/2024 9:04 AM EDT - 10/29/2024 9:38 AM EDT Surgery [facility] [address] [id number] Mian Garcia MD [address] [place] [address] ESOPHAGOGASTRODUODENOSCOPY [79855 (CPT )] Social History Tobacco Use Types Packs/Day Years Used Date Smoking Tobacco: Never Assessed [facility] Utilities Answer Date Recorded In the past 12 months has [employer], gas, oil, or water Resource Data threatened to shut off services in your [...] GED or equivalent No 10/29/2024 Preferred Language Czech 10/29/2024 Sex and Gender Information Value Date Recorded Sex Assigned at Not on file Legal Sex Male 4:14 PM EDT Gender Identity Not on file Sexual Orientation Not on file documented as of this encounter Last Filed Vital Signs Vital Sign Reading Time Taken Comments Blood Pressure 115/73 10/29/2024 8:21 AM EDT Pulse 78 10/29/2024 8:21 AM EDT Temperature 36.7 C (98 F) 10/29/2024 8:21 AM EDT Respiratory Rate 16 10/29/2024 8:21 AM EDT Oxygen Saturation 96% 10/29/2024 8:21 AM EDT Inhaled Oxygen Concentration - - Weight 68 kg (150 lb) 10/29/2024 8:21 AM EDT Height - - Body Mass Index - - documented in this encounter Discharge Summaries * Enrique Schneider MD - 11/02/2024 10:15 AM EDT Images from the original note were not included. [facility] Medicine Services DISCHARGE SUMMARY Patient Name: Jessica [...] Results LAB RESULTS: Lab 10/28/24 0842 10/27/24 23510/26/24 [...] MD 10/27/2024 10:17 PM EDT Workstation ID: [id number] EEG Result Date: 10/27/2024 History: 89 y [...] Moriah Lopez 1 month As directed To: Moriah Lopez 1 month Enrique Schneider MD 11/02/24 Time Spent on Discharge: I spent 40 minutes on this discharge activity which included: btgs-oh-qgpzqgopxtqzd with the patient, reviewing the data in the system, coordination of the care with the nursing staff as well as consultants, documentation, and entering orders. * Han Martin RN - 10/29/2024 11:16 AM EDT Images from the original note were not included. Jessica Burnham (89 y.o. 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 Looking for short term rehab Date of 1935 Social Security Number [id number] [place] [address] Episcopal None Marital Status Single Admission Date 10/26/2024 Admission Type Urgent Admitting Provider Saeed Monique MD Attending Provider Saeed Monique MD Department, Room/Bed [facility] 3F, S318/1 Discharge Date Discharge Disposition Discharge Destination Attending Provider: Saeed Monique MD Allergies: No Known Allergies Isolation: None Infection: None Code Status: Not on file Ht: -- Wt: 68 kg (150 lb) Admission Cmt: None Principal Problem: Stroke-like symptoms [R29.90] Active Insurance as of 10/26/2024 Primary Coverage Payor Plan Insurance Group Employer/Plan Group [facility] Payor Plan Address Payor Plan Phone Number Payor Plan Fax Number Effective Dates [phone] 04/18/2024 - None Entered [facility] [id number] Subscriber Name Subscriber Date Member ID JESSICA BURNHAM 1935 [id number] Emergency Contacts 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 Sex: male : 1935 Visit Number: [id number] Admit Date: 10/26/2024 Room number: S318/1 Primary Care Physician: Provider, No Known Date of Admission: 10/26/2024 Subjective Chief complaint: Confusion History of presenting illness: This is an 89 male from longterm with a past medical history of COPD, dementia, sciatica, and hypertension presenting with altered mental status. Pt found to have confusion, dysarthria, and bilateral lower extremity drift. Last known well has not been established. The patient initially presented to [facility] with vitals WNL and imaging showing CT head with changes to right MCA territory right frontal, No right MCA LVO identified. Pt would not be a Demand Generation Manager candidate. He has been transferred to our [...] -Continue to monitor SaO2 Thien Becker MD [facility] 10/26/24 19:21 EDT 1950 Vital Signs (last [...] Nightly Roby Mckenzie MD 40 mg at 10/28/24 1939 ipratropium-albuterol (DUO-NEB) nebulizer solution 3 mL 3 mL Nebulization Q6H PRN Thien Becker MD [START ON 10/30/2024] lactated ringers infusion 9 mL/hr Intravenous Continuous Ajay Palomares MD melatonin tablet 5 mg 5 mg Oral Nightly PRN Gal Weiner PA-C 5 mg at 10/28/24 1939 pantoprazole (PROTONIX) injection 40 mg 40 mg Intravenous BID Riccardo Castañeda APRN 40 mg at 10/29/24 [...] hours) Saeed Monique MD at 10/28/24 1324 [facility] Medicine Services PROGRESS NOTE Patient Name: Jessica [...] MD 10/27/2024 10:17 PM EDT Workstation ID: [id number] EEG Result Date: 10/27/2024 History: 89 y [...] asa 81mg daily and lipitor 40mg qhs. skin grader for 2-4 weeks upon discharge --MRI brain showed no acute --echo final read still pending --EEG was unremarkable --A1C 5.33. Total chol 138 HDL 56 LDL 72 Dysphagia --TESTING SHAKING SHIPPING states that solids get stuck and then coughs up and recs GI consult for possible EGD HTN --normotension BP now ok per neuro. Restart home norvasc HL Dementia --continue home meds LLE swelling --LLE duplex pending COPD without exacerbation Expected Discharge Location and Transportation: from [place] Expected Discharge Expected Discharge Date: 10/29/2024; Expected [...] is lying down in the bed in [facility]. No family were at the bedside. [...] light touch throughout Coordination: no ataxia with sxnobt-ho-asji testing Gait/Station: deferred Results Review: I reviewed [...] MD 10/27/2024 10:17 PM EDT Workstation ID: [id number] -CTH wo on 10/26/2024 images were personally [...] 10/27/2024 was 72 Assessment/Plan This is 89-year-old -Austrian male, right-handed with multiple vascular risk factor presented to outside hospital for altered mental status. Transferred to our facility for full stroke workup and higher level of care. Patient was not a candidate for IV thrombolytic therapy or mechanical thrombectomy as he was back to his baseline. 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 This is less likely to be vascular in nature -[facility] wo on 10/26/2024 images were personally reviewed [...] protocol -Activity as tolerated, fall risk precautions -PT/OT/TESTING SHAKING SHIPPING evaluation #Essential hypertension, complicated by uncontrolled hypertension [...] Roby Mckenzie MD, Msc, PhD Vascular Neurologist [facility] 1306 Physical Therapy Notes (most recent note) Jennifer Hendrickson, PT at 10/28/24 1455 Version 1 of 1 Patient Name: Jessica [...] evaluation -MAI Mode of Treatment physical therapy -MAI Row Name 10/28/24 5813 General Information Patient Profile Reviewed yes -MAI Prior Level of Function -- Per chart facility resident, limited historian. -MAI Existing Precautions/Restrictions fall;other (see comments) cognition -MAI Barriers to Rehab cognitive status;previous functional deficit -MAI Row Name 10/28/24 3541 Living Environment Current Living Arrangements residential facility -MAI Row Name 10/28/24 1586 Safety Issues/Impairments Affecting Functional Mobility Impairments Affecting Function (Mobility) balance;cognition;endurance/activity tolerance;postural/trunk control -MAI User Carmona (r) = Recorded By, (t) = Taken By, (c) = Cosigned By Initials Name Provider Type Jennifer Olvera PT Physical Therapist Mobility Row Name 10/28/24 1528 Bed Mobility Bed Mobility supine-sit -MAI Supine-Sit [place] (Bed Mobility) verbal cues;nonverbal cues (demo/gesture);minimum assist (75% patient effort) -MAI Assistive Device (Bed Mobility) head of bed elevated;bed rails -MAI Comment, (Bed Mobility) Pt utilized bed rail -MAI Row Name 10/28/24 1528 Transfers Comment, (Transfers) Cues for sequencing and hand placement with FWW. -MAI Row Name 10/28/24 1528 Sit-Stand Transfer Sit-Stand [place] (Transfers) minimum assist (75% patient effort) -MAI Assistive Device (Sit-Stand Transfers) walker, front-wheeled -MAI Comment, (Sit-Stand Transfer) VCs -MAI Row Name 10/28/24 1528 Gait/Stairs (Locomotion) [place] Level (Gait) contact guard -MAI Assistive Device [...] Provider Type Jennifer Olvera PT Physical Therapist Obj/Interventions Row Name 10/28/24 1531 Range of Motion Comprehensive General Range of Motion bilateral lower extremity ROM WFL -MAI Row Name 10/28/24 1531 Strength Comprehensive (MMT) General Manual Muscle Testing (MMT) Assessment lower extremity strength deficits identified -MAI Comment, General Manual Muscle Testing (MMT) Assessment LEs grossly 4-/5 -MAI Row Name 10/28/24 1531 Balance Balance Assessment sitting static balance;standing static [...] PT) sit to supine/supine to sit -MAI [place] Level/Cues Needed (Bed Mobility Goal 1, PT) independent -MAI Time Frame (Bed Mobility Goal 1, PT) skilled nursing goal (LTG);10 days -MAI [facility] Name 10/28/241534 Transfer Goal 1 (PT) Activity/Assistive Device (Transfer Goal 1, PT) dxk-nk-pepdc/dblcx-jc-pcy -MAI [place] Level/Cues Needed (Transfer Goal 1, PT) modified independence -MAI Time Frame (Transfer Goal 1, PT) short term goal (STG);5 days -MAI [facility] Name 10/28/241534 Gait Training Goal 1 (PT) Activity/Assistive Device (Gait Training Goal 1, PT) gait (walking locomotion);assistive device use-MAI [place] Level (Gait Training Goal 1, PT) modified independence -MAI Distance (Gait Training Goal 1, PT) 100 -MAI Time Frame (Gait Training Goal 1, PT) skilled nursing goal (LTG);10 days -MAI [facility] Name 10/28/241534 Therapy Assessment/Plan (PT) Planned Therapy [...] - no pain -MAI Row Name 10/28/24 1531 Plan of Care Review Plan of Care [...] Options AM-PAC 6 Clicks Basic Mobility (PT) -MAI User Carmona (r) = Recorded By, (t) = Taken By, (c) = Cosigned By Initials Name Provider Type Jennifer Olvera, PT Physical Therapist Ronnie Salas RN Registered Nurse Physical Therapy Education Title: PT OT TESTING SHAKING SHIPPING Therapies (In Progress) Topic: Physical Therapy (In [...] Type Discipline MAI 10/01/20 - Jennifer Hendrickson, ELMA Physical Therapist PT PT Recommendation and Plan [...] Provider Type Jennifer Olvera PT Physical Therapist Therapy Charges for Today Code Description Service Date Service Provider Modifiers Qty [id number] HC-PT EVAL MOD COMPLEXITY 5 10/28/2024 Jennifer Hendrickson PT 1 PT G-Codes Outcome Measure Options: AM-PAC 6 Clicks Basic Mobility (PT) AM-PAC 6 Clicks Score (PT): 18 PT Discharge Summary Anticipated Discharge Disposition (PT): senior care facility Jennifer Hendrickson, ELMA 10/28/2024 1538 Occupational Therapy Notes (most recent note) Pearl Holt OT at 10/28/24 1545 Goal Outcome Evaluation: [...] to SNF. Anticipated Discharge Disposition (OT): senior care facility 1545 Speech Language Pathology Notes (most recent note) Sissy Lopez MS CCC-TESTING SHAKING SHIPPING at 10/27/24 1447 Goal Outcome Evaluation: Plan of Care Reviewed With: patient Anticipated Discharge Disposition (TESTING SHAKING SHIPPING): senior care facility TESTING SHAKING SHIPPING Diagnosis: mild, cognitive-linguistic disorder (10/27/24 1300) TESTING SHAKING SHIPPING Swallowing Diagnosis: functional oral phase, R/O pharyngeal [...] Lopez MD - 11/02/2024 10:17 AM EDT [facility] Cardiology Inpatient Progress Note Chief [...] been in atrial fibrillation since presentation to [facility] - GDMT: carvedilol, added losartan with elevated BP - asymptomatic, euvolemic Anticipate d/c home today. Can follow-up in 2 months. Vu Lopez MD 11/02/2024 10:17 EDT * Milka Leblanc APRN - 11/01/2024 12:40 PM EDT Images from the original note were not included. [facility] Medicine Services PROGRESS NOTE Patient Name: Jessica [...] with more conservative management at thistime. Dysphagia --TESTING SHAKING SHIPPING states that solids get stuck and then [...] needed [place] --lives alone. Pt of [facility]. Has caregivers help 4 days a week. [...] Lopez MD - 11/01/2024 10:09 AM EDT [facility] Cardiology Inpatient Progress Note Chief [...] been in atrial fibrillation since presentation to [facility] - GDMT: carvedilol, add losartan with elevated BP - asymptomatic, euvolemic Vu Lopez MD 11/01/2024 10:09 EDT * Clark Lopez MD - 10/31/2024 4:49 PM EDT [facility] Cardiology Inpatient Progress Note Chief [...] MD 10/31/2024 16:50 EDT * Milka Leblanc, DENTAL LAB TECHNICIAN - 10/31/2024 11:11 AM EDT Images from the original note were not included. [facility] Medicine Services PROGRESS NOTE Patient Name: Jessica [...] asa 81mg daily and lipitor 40mg qhs. skin grader for 2-4 weeks upon discharge --MRI brain [...] with more conservative management at thistime. Dysphagia --TESTING SHAKING SHIPPING states that solids get stuck and then [...] needed [place] --lives alone. Pt of [facility]. Has caregivers help a few days a week. Dtr/[place] of [place] Pref[place] or if not wants local SNF, but not interested in [place] [place]. Expected Discharge Location and Transportation: to SNF, following Expected Discharge Expected Discharge Date: 11/02/2024; Expected Discharge Time: VTE Prophylaxis: Mechanical VTE prophylaxis orders are present. AM-PAC 6 Clicks Score (PT): 17 (10/30/241943) CODE STATUS: There are no questions and answers to display. Milka Leblanc APRN 10/31/24 * Che Kiser APRN - 10/30/2024 9:30 AM EDT Images from the original note were not included. [facility] Medicine Services PROGRESS NOTE Patient Name: Jessica [...] asa 81mg daily and lipitor 40mg qhs. skin grader for 2-4 weeks upon discharge --MRI brain [...] with more conservative management at thistime. Dysphagia --TESTING SHAKING SHIPPING states that solids get stuck and then [...] needed [place] --lives alone. Pt of [facility]. Has caregivers help a few days a week. Da/next of kin [place]. Pref[place] or if not wants local SNF. Updated CM 10/29. Daily Care Communication Due to current limited visitation policies, an attempt will be made daily to update patient's identified best [id number](s) Contact: Saranya Carter Relation: sherita Time of communication: 1350 Notes (if applicable): Attempted to call patient's daughter/next of kin to update on care today andalso to clarify CODE STATUS as it is not on file. She did not answer. Expected Discharge Location and Transportation[place] [facility] [place] [facility] or somewhere local. Expected Discharge Expected Discharge Date: 10/31/2024; Expected Discharge Time: VTE Prophylaxis: Mechanical VTE prophylaxis orders are present. AM-PAC 6 Clicks Score (PT): 17 (10/30/24 1124) CODE STATUS: There are no questions and answers to display. Che Kiser, DENTAL LAB TECHNICIAN 07/15/25 * Michell Carroll, DENTAL LAB TECHNICIAN - 10/30/2024 8:19 AM EDT [facility] Cardiology Inpatient Progress Note Chief Complaint/Reason for service: Follow up heart failure, Afib. Subjective: Patient resting in bed. No complaints. Denies chest pain, shortness of breath. Remains in rate controlled Afib on telemetry. Past medical, surgical, social and family history reviewed in the patient's electronic medical record. Objective: Infusions: lactated ringers, 9 mL/hr, Last Rate: 9 mL/hr (10/30/24 0535) Medications: Scheduled Meds:aspirin, 81 mg, Oral, Daily [...] from the original note were not included. [facility] Medicine Services PROGRESS NOTE Patient Name: Jessica [...] MD 10/27/2024 10:17 PM EDT Workstation ID: [id number] Results for orders placed during the hospital [...] asa 81mg daily and lipitor 40mg qhs. skin grader for 2-4 weeks upon discharge --MRI brain [...] Echo for stroke w/u --consult cards Dysphagia --TESTING SHAKING SHIPPING states that solids get stuck and then coughs up and recs GI consult --s/p EGD and s/p empiric dilatation today. Ciaran well. --GI noted nl EGD otherwise. --reduce PPI to daily HTN/HLD --normotension BP now ok per neuro. Prior restarted home norvas Dementia --continue home meds. Stable LLE swelling --LLE duplex neg. Stable. COPD without exacerbation --oxygen as needed [place] --lives alone. Pt of [facility]. Has caregivers help a few days a week. Da wants SNF. Prefers [place] or if not wants local SNF. Updated CM. Daily Care Communication Due to current limited visitation policies, an attempt will be made daily to update patient's identified best [id number](s) Contact: Saranya Carter Relation: sherita Time of communication: 1330 Notes (if applicable): Spoke with patient's daughter/next of kin via phone. Updated on results of EGD. Discussed past medical history as patient is a [place] patient with no history on file here. Explained patient in rate controlled A-fib and new CHF based on echo. History of these prior note per daughter. Does she feels patient would not be a good candidate for anticoagulation due to age and dementiawith falls. Agreeable to aspirin if indicated. For patient to transfer at discharge to a [place] rehab center if possible. Expected Discharge Location and Transportation: [place] ( [facility] [place] [facility]) or somewhere local. Expected Discharge Expected Discharge Date: 10/29/2024; Expected Discharge Time: VTE Prophylaxis: Mechanical VTE prophylaxis orders are present. AM-PAC 6 Clicks Score (PT): 16 (10/29/24 1400) CODE STATUS: There are no questions and answers to display. Che Kiser APRN 10/29/24 * Saeed Monique MD - 10/28/2024 1:24 PM EDT Images from the original note were not included. [facility] Medicine Services PROGRESS NOTE Patient Name: Jessica [...] -- 1.3 1.0 Lab 10/28/24 0842 10/27/24 23510/27/24 0946 SODIUM 140 137 -- POTASSIUM 4.0 [...] MD 10/27/2024 10:17 PM EDT Workstation ID: [id number] EEG Result Date: 10/27/2024 History: 89 y [...] asa 81mg daily and lipitor 40mg qhs. skin grader for 2-4 weeks upon discharge --MRI brain showed no acute --echo final read still pending --EEG was unremarkable --A1C 5.33. Total chol 138 HDL 56 LDL 72 Dysphagia --TESTING SHAKING SHIPPING states that solids get stuck and then [...] light touch throughout Coordination: no ataxia with eroumk-qi-laah testing Gait/Station: deferred Results Review: I reviewed [...] MD 10/27/2024 10:17 PM EDT Workstation ID: [id number] -[id number] wo on 10/26/2024 images were personally [...] 10/27/2024 was 72 Assessment/Plan This is 89-year-old -Austrian male, right-handed with multiple vascular risk factor presented to outside hospital for altered mental status. Transferred to our facility for full stroke workup and higher level of care. Patient was not a candidate for IV thrombolytic therapy or mechanical thrombectomy as he was back to his baseline. 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 This is less likely to be vascular in nature -CT wo on 10/26/2024 images were personally reviewed [...] protocol -Activity as tolerated, fall risk precautions -PT/OT/TESTING SHAKING SHIPPING evaluation #Essential hypertension, complicated by uncontrolled hypertension [...] Roby Mckenzie MD, Msc, PhD Vascular Neurologist [facility] * Roby Mckenzie MD - 10/27/2024 2:24 [...] x 2 (stated that he is in [place] at [facility]), interactive, ableto follow commands Speech: Intact Articulation CN 2-12: II - PERRLA III, IV, - EOMI VII -no gross facial asymmetry VIII - Auditory acuity intact XII - Tongue protrudes midline Motor: Patient is able to move all 4 extremities against gravity with no drift appreciated Sensory: intact light touch throughout Coordination: no ataxia with cjftyy-vz-mlcg testing Gait/Station: deferred Results Review: I reviewed [...] 10/27/2024 was 72 Assessment/Plan This is 89-year-old -Austrian male, right-handed with multiple vascular risk factor presented to outside hospital for altered mental status. Transferred to our facility for full stroke workup and higher level of care. Patient was not a candidate for IV thrombolytic therapy or mechanical thrombectomy as he was back to his baseline. Antiplatelet ORNAMENTAL METAL ERECTOR APPRENTICE: Aspirin 325 mg Anticoagulant ORNAMENTAL METAL ERECTOR APPRENTICE: None #Acute encephalopathy in the setting of [...] protocol -Activity as tolerated, fall risk precautions -PT/OT/TESTING SHAKING SHIPPING evaluation #Essential hypertension, complicated by uncontrolled hypertension [...] Roby Mckenzie MD, Msc, PhD Vascular Neurologist [facility] * Saeed Monique MD - 10/27/2024 2:02 PM EDT Images from the original note were not included. [facility] Medicine Services PROGRESS NOTE Patient Name: Jessica [...] chol 138 HDL 56 LDL 72 Dysphagia --TESTING SHAKING SHIPPING states that solids get stuck and then coughs up and recs GI consult for possible EGD HTN --permissive HTN until ok per neuro HL Dementia --continue home meds LLE swelling --LLE duplex pending COPD without exacerbation Expected Discharge Location and Transportation[place] Expected Discharge Expected Discharge Date: 10/29/2024; Expected Discharge Time: VTE Prophylaxis: Mechanical VTE prophylaxis orders are present. AM-PAC 6 Clicks Score (PT): 17 (10/27/24 0800) CODE STATUS: There are no questions and answers to display. Saeed Monique MD 10/27/24 documented in this encounter H&P Notes * Thien Becker MD - 10/26/2024 7:21 PM EDT Images from the original note were not included. [facility] Patient Identification: Name: Jessica Burnham Age: 89 y.o. Sex: male : 1935 Visit Number: [id number] Admit Date: 10/26/2024 Room number: S318/1 Primary Care Physician: Provider, No Known Date of Admission: 10/26/2024 Subjective Chief complaint: Confusion History of presenting illness: This is an 89 male from longterm with a past medical history of COPD, dementia, sciatica, and hypertension presenting with altered mental status. Pt found to have confusion, dysarthria, and bilateral lower extremity drift. Last known well has not been established. The patient initially presented to [facility] with vitals WNL and imaging showing CT head with changes to right MCA territory right frontal, No right MCA LVO identified. Pt would not be a Demand Generation Manager candidate. He has been transferred to our hospital for further management. At this time, he is AAOX3 and denies any CP, SOBor N/V. Pt states he does not remember why he was sent to the hospital. States he was told he was garza ving stroke but he has not noticed any issues. The patient does have mild dysarthria, but he statesthat there are no changes to his speech and that it's likely 2/2 not having his dentures. He has nofocal weakness on exam. Review of Systems Constitutional: [...] -Continue to monitor SaO2 Thien Becker MD [facility]/26/24 19:21 EDT documented in this encounter Consult Notes * Clark Lopez MD - 10/29/2024 2:52 PM EDTAssociated Order(s): IP CONSULT TO CARDIOLOGY [facility] Cardiology Initial Consult Note Patient Identification: Jessica Burnham 89 y.o. male 1935 [id number] Date of Consultation: 10/29/24 Reason for Consultation: atrial fibrillation, decreased EF PCP: Provider, No Known Primary coagulant dipper: none Referring physician: Saeed Monique MD History of Present Illness: Jessica Burnham is a 89 y.o. with a history of HTN, MCI, BPH, GERD, CKD who was transferred to [facility] from [facility] due to concern for stroke. Per the [...] records are available for review through the [place] system which do not show these diagnoses [...] 8:26 AM EDTAssociated Order(s): IP CONSULT TO MATERIAL CONTROLLER Diabetes Education Patient Name: Jessica Burnham Date [...] 2:51 PM EDTAssociated Order(s): Inpatient Gastroenterology Consult [facility]: Inpatient Gastroenterology Consult Inpatient Gastroenterology [...] MD 10/27/2024 10:17 PM EDT Workstation ID: [id number] EEG Result Date: 10/27/2024 History: 89 y old male , AMS. r/o seizure Procedure: A digital electroencephalogram was performed in the Clinical Neurophysiology Laboratory. The 10/20 International System of electrode placement wasused and both Bipolar and referential electrode montages were monitored. EEG Description: This EEGis continuous and symmetrical. During the awake state [...] PATIENT SEEN: 1902 EST Handedness: Right Race: -Austrian Chief Complaint/Reason for Consultation: Was found altered HPI: This is Mr. Jessica Armstrong 89-year-old -Austrian male, right- handed, with significant health diagnosis for dementia, former smoker and alcohol drinker, COPD, hypertension, hyperlipidemia, sciatica who presented to our facility as a direct admit from [facility] for stroke workup and higher level [...] Plantar: downgoing Left Plantar: downgoing Coordination Right: Hsswje-qz-kdqs normal.Left: Enpfsq-hz-ptws normal. Gait Unable to assess. Physical Exam [...] sodium chloride Functional Status Prior to Current Stroke/Mclennan Score: 1-2 NIH Stroke Scale Time: 21:52 [...] Atherosclerosis intra extracranial Assessment/Plan: This is 89-year-old -Austrian male, right-handed with multiple vascular risk factor presented to outside hospital for altered mental status. Transferred to our facility for full stroke workup and higher level of care. Patient was not a candidate for IV thrombolytic therapy or mechanical thrombectomy as he was back to his baseline. Antiplatelet ORNAMENTAL METAL ERECTOR APPRENTICE: Aspirin 325 mg Anticoagulant ORNAMENTAL METAL ERECTOR APPRENTICE: None Transient alteration of mental status in [...] pending -Activity as tolerated, fall risk precautions -PT/OT/TESTING [employer] evaluation - Neurology stroke will continue to [...] in this encounter Nursing Notes * Amita Decker, AVILA - 11/02/2024 3:23 AM EDT Goal Outcome [...] morning, its night time. * Kristal Benavidez, CF-TESTING [employer] - 11/01/2024 4:02 PM EDT Goal Outcome Evaluation: Plan of Care Reviewed With: patient, child Anticipated Discharge Disposition (TESTING SHAKING SHIPPING): senior care facility Treatment Assessment (TESTING SHAKING SHIPPING): continued, toleration of diet, cognitive-linguistic disorder (11/01/24 1540) Plan for Continued Treatment (TESTING SHAKING SHIPPING): continue treatment per plan of care (11/01/24 [...] per POC. Anticipated Discharge Disposition (PT): senior care facility * Sissy Lopez MS [facility] - 10/30/2024 4:07 PM EDT Goal Outcome Evaluation: Plan of Care Reviewed With: patient Anticipated Discharge Disposition (TESTING SHAKING SHIPPING): senior care facility TESTING [employer]PING Diagnosis: mild, cognitive-linguistic disorder (10/30/24 1430) [employer] Swallowing Diagnosis: functional oral phase, R/O pharyngeal dysphagia, suspected esophageal dysphagia (10/30/24 1430) Treatment Assessment (TESTING SHAKING SHIPPING): continued, mild, cognitive-linguistic disorder (10/30/24 1430) Treatment Assessment Comments (TESTING SHAKING SHIPPING): Patient tolerated trials of soft solids w/o discomfort or s/s of aspiration. EGD completed on 10/29/24 with dilation completed. Diet upgraded this date to soft chopped and thin liquids. Patient continues with mild cognitive linguistic impairment. (10/30/24 143) Plan for Continued Treatment (TESTING SHAKING SHIPPING): continue treatment per plan of care (10/30/24 143) * Yvonne Felder PT - 10/30/2024 11:14 AM EDT Goal [...] endurance deficits. Anticipated Discharge Disposition (PT): senior care facility * Jaylin Concepcion, OT - 10/30/2024 [...] current POC. Anticipated Discharge Disposition (OT): senior care facility * Edil Franklin PT Student - 10/29/2024 2:48 PM EDT [...] D/C. Anticipated Discharge Disposition (PT): (P) senior care facility Cosigned by Yvonne Felder PT at 10/29/2024 3:55 PM EDT Associated attestation - Yvonne Felder PT - 10/29/2024 3:55 PM EDT Yvonne Felder PT, DPT, CSRS * Annelise Sewell RN - 10/29/2024 4:36 AM EDT Goal Outcome Evaluation: Plan of Care Reviewed With: patient Patient used urinal at bedside continuously throughout the night. Patient got very little sleep. NPO at midnight. * Pearl Holt OT - 10/28/2024 3:45 PM EDT Goal [...] to SNF. Anticipated Discharge Disposition (OT): senior care facility * Jennifer Hendrickson PT - 10/28/2024 [...] upon DC. Anticipated Discharge Disposition (PT): senior care facility, home with 08/11 care * Izabel [...] Fall Risk Recent Flowsheet Documentation Taken 10/28/2024 0437 by Izabel Allen RN Safety Promotion/Fall Prevention: [...] confusion, dysarthria, and BLE drift. Transferred from [facility]. Today 10/27 pt is A&O x3 [...] confusion, dysarthria, and BLE drift. Transferred from [facility]. Today 10/27 pt is A&O x3 with some mild confusion to situation. Cooperative today. SLPcleared pt for pureed diet w/ thin liquids. Tolerating diet so fare. MRI screening sheet in chart, MRI pending. EEG completed. UA drug screen-negative. * Sissy Lopez MS [facility] [employer] - 10/27/2024 2:47 PM EDT Goal Outcome Evaluation: Plan of Care Reviewed With: patient Anticipated Discharge Disposition (TESTING SHAKING SHIPPING): senior care facility TESTING [employer]PING Diagnosis: mild, cognitive-linguistic disorder (07/12/25 1300) [employer]ING [employer] Swallowing Diagnosis: functional oral phase, R/O pharyngeal [...] 9:38 AM EDT ESOPHAGOGASTRODUODENOSCOPY Progress Note Jessica Burhnam 10/29/2024 EGD is normal. Empiric esophageal dilations performed at 48 and 51 Luxembourgish, without mucosal disruption. >> Assess response to empiric esophageal dilation. >> Decrease PPI to once daily. Please call with questions or concerns. Mian Garcia MD Date: 10/29/2024 Time: 09:45 EDT documented in this encounter Miscellaneous Notes * Therapy Treatment Note - Kristal Benavidez MS CF-[employer] - 11/01/2024 4:04 PM EDT Images from the original note were not included. Acute Care - Speech Language Pathology Swallow Treatment Note [facility] Patient Name: Jessica Burnham : 1935 Today's [...] Procedure: ESOPHAGOGASTRODUODENOSCOPY; Surgeon: Mian Garcia MD; Location: [facility]; Service: Gastroenterology; Laterality: N/A; TESTING [employer] Recommendation and Plan TESTING [employer] Diet Recommendation: soft to chew textures, chopped, thin liquids (11/01/241539) Recommended Precautions and Strategies: upright posture during/after eating, small bites of food and sips of liquid, reflux precautions (11/01/241539) [employer]ING [employer] Rec. for Method of Medication Administration: meds whole, meds crushed, with puree, as tolerated (11/01/241539) Monitor for Signs of Aspiration: notify [employer] if any concerns (11/01/241539) Anticipated Discharge Disposition (TESTING SHAKING SHIPPING): home with / care (11/01/241539) Therapy Frequency (Swallow): 3 days per week (11/01/241539) Predicted Duration Therapy Intervention (Days): 1 week (11/01/241539) Oral Care Recommendations: Oral Care BID/PRN, Toothbrush (11/01/241539) Daily Summary of Progress (TESTING SHAKING SHIPPING): progress toward functional goals as expected (11/01/241539) Treatment Assessment (TESTING SHAKING SHIPPING): continued, toleration of diet, cognitive-linguistic disorder (11/01/241539) Plan for Continued Treatment (TESTING SHAKING SHIPPING): continue treatment per plan of care (11/01/241539) SWALLOW EVALUATION (Last 72 Hours) [employer] Adult Swallow Evaluation Row Name 11/01/24 1540 10/30/24 1430 TESTING SHAKING SHIPPING Evaluation Clinical Impression [employer] Swallowing Diagnosis -- functional oral phase;R/O pharyngeal dysphagia;suspected esophageal dysphagia -CH Functional Impact -- risk of aspiration/pneumonia;risk of malnutrition -CH Rehab Potential/Prognosis, Swallowing -- good, to achieve stated therapy goals -CH Swallow Criteria for Skilled Therapeutic Interventions Met -- demonstrates skilled criteria -CH [employer] Treatment Clinical Impressions Treatment Assessment Comments (TESTING SHAKING SHIPPING) -- Patient tolerated trials of soft solids w/o discomfort or s/s of aspiration. EGD completed on 10/29/24 with dilation completed. Diet upgraded this date to soft chopped and thin liquids. Patient continues with mild cognitive linguistic impairment. - Recommendations Therapy Frequency (Swallow) 3 days per week - PRN;5 days per week - TESTING [employer]IPPING Diet Recommendation soft to chew textures;chopped;thin liquids [...] Care BID/PRN;Toothbrush - Oral Care BID/PRN;Toothbrush - [employer]ING [employer] Rec. for Method of Medication Administration meds whole;meds crushed;with puree;as tolerated - meds whole;meds crushed;with puree;as tolerated - Monitor for Signs of Aspiration notify [employer] if any concerns - notify [employer] if any concerns - Anticipated Discharge Disposition (TESTING SHAKING SHIPPING) home with 08/11 care - -- User Carmona (r) = Recorded By, (t) = Taken By, (c) = Cosigned By Initials Name Effective Dates Sissy Lopez MS [facility]-[employer] 05/07/24 - Kristal Tovar MS CF-[employer] 09/20/24 - EDUCATION The patient has been educated in the following areas: Cognitive Impairment Communication Impairment Dysphagia (Swallowing Impairment). TESTING [employer] GOALS Row Name 11/01/24 1540 10/30/24 1430 (LTG) Patient will demonstrate functional swallow for Diet Texture (Demonstrate functional swallow) soft to chew (chopped) textures - soft to chew (chopped) textures - Liquid viscosity (Demonstrate functional swallow) thin liquids -SM thin liquids - [place] (Demonstrate functional swallow) with minimal cues (75-90% [...] signs/symptoms of aspiration;with adequate oral prep/transit/clearance -CH [place] (Tolerate trials) with minimal cues (75-90% accuracy) -SM with minimal cues (75-90% accuracy) - Time Frame (Tolerate trials) 1 week -SM 1 week -CH Progress/Outcomes (Tolerate trials) goal met;goal revised this date -SM goal met;goal revised this date -CH Comment (Tolerate trials) Pt refused trials of solid and thins -SM goal met for pureed, diet upgraded to soft chopped and thin liquids. - Patient will demonstrate functional cognitive-linguistic skills for return to discharge environment [place] with minimal cues -SM with minimal cues -CH Time frame 1 week -SM 1 week -CH Progress/Outcomes continuing progress toward goal -SM continuing progress toward goal -CH [employer] Diagnostic Treatment Patient will participate in further assessment in the following areas clarification of baseline cognitive communication status - clarification of baseline cognitive communication status - Time Frame (Diagnostic) 1 week -SM 1 week -CH Progress/Outcomes (Additional Goal 1, TESTING [employer]AKING [employer]IPPING) goal met -SM continuing progress toward goal -CH Comment (Diagnostic) Daughter present in room, attests that pt is at baseline cog fx -SM -- Word Retrieval Skills Goal 1 (TESTING SHAKING SHIPPING) Improve Word Retrieval Skills By Goal 1 (TESTING SHAKING SHIPPING) high frequency;responsive naming task;completing a divergent task;80%;with minimal cues (75-90%) - high frequency;responsive naming task;completing a divergent task;80%;with minimal cues (75-90%) - Time Frame (Word Retrieval Goal 1, TESTING SHAKING SHIPPING) 1 week -SM 1 week -CH Progress (Word Retrieval Skills Goal 1, TESTING SHAKING SHIPPING) -- 80%;with minimal cues (75-90%) -CH Progress/Outcomes (Word Retrieval Goal 1, TESTING [employer]AKING [employer]IPPING) goal no longer appropriate - continuing progress toward goal -CH Comment (Word Retrieval Goal 1, TESTING SHAKING SHIPPING) Pt at baseline cog fx -SM -- Orientation Goal 1 (TESTING SHAKING SHIPPING) Improve Orientation Through Goal 1 (TESTING SHAKING SHIPPING) demonstrating orientation to day;demonstrating orientationto month;demonstrating orientation to year;demonstrating orientation to place;demonstrating orientation to disease/impairment;use environmental aids to assist with orientation;80%;with minimal cues (75-90%) -SM demonstrating orientation to day;demonstrating orientation to month;demonstrating orientation to year;demonstrating orientation to place;demonstrating orientation to disease/impairment;useenvironmental aids to assist with orientation;80%;with minimal cues (75-90%) - Time Frame (Orientation Goal 1, TESTING SHAKING SHIPPING) 1 week -SM 1 week -CH Progress (Orientation Goal 1, TESTING SHAKING SHIPPING) 30%;with minimal cues (75-90%) -SM 50%;with minimal cues (75-90%) -CH Progress/Outcomes (Orientation Goal 1, TESTING [employer]ING [employer]IPPING) goal no longer appropriate -SM continuing progress toward goal -CH Comment (Orientation Goal 1, TESTING [employer]AK[employer]IPPING) Oriented to self and place -SM Oriented to self and grossly to place, not to time or situation - Memory Skills Goal 1 (TESTING SHAKING SHIPPING) Improve Memory Skills Through Goal 1 (TESTING SHAKING SHIPPING) recalling related word lists immediately;recall details of the day;90%;with minimal cues (75-90%) -SM recalling related word lists immediately;recall details of the day;90%;with minimal cues (75-90%) - Time Frame (Memory Skills Goal 1, TESTING SHAKING SHIPPING) 1 week -SM 1 week -CH Progress (Memory Skills Goal 1, TESTING SHAKING SHIPPING) 30%;with minimal cues (75-90%) -SM 40%;with minimal cues (75-90%) - Progress/Outcomes (Memory Skills Goal 1, TESTING [employer]AKING SHIPPING) goal no longer appropriate -SM continuing progress toward goal - Comment (Memory Skills Goal 1, TESTING SHAKING SHIPPING) Could not recall details of day, recalled 2/3 related words immediately - -- User Carmona (r) = Recorded By, (t) = Taken By, (c) = Cosigned By Initials Name Provider Type Sissy Saldana MS CCC-[employer] Speech and Language Pathologist Kristal Tovar MS [facility]-[employer] Speech and Language Pathologist Time Calculation: Time Calculation- [employer] Row Name 11/01/24 1603 Time Calculation- [employer]ING [employer]PING TESTING SHAKING SHIPPING Start Time 1540 -SM [employer]IPPING Received On 11/01/24 -SM Untimed Charges 41226-IE Treatment/ST Modification Prosth Aug Alter 27 -SM 70667-XN Treatment Swallow Minutes 10 -SM Total Minutes Untimed Charges Total Minutes 37 -SM Total Minutes 37 -SM User Carmona (r) = Recorded By, (t) = Taken By, (c) = Cosigned By Initials Name Provider Type Kristal Benavidez, CF-[employer] Speech and Language Pathologist Therapy Charges for Today Code Description Service Date Service Provider Modifiers Qty 51211921246 HC ST TREATMENT SPEECH 2 11/01/2024 Kristal Benavidez MS [facility]-[employer] GN [address] TREATMENT SWALLOW 1 11/01/2024 Kristal Benavidez MS [facility]-[employer] GN 1 Kristal Benavidez, CF-TEST[employer]PING 11/01/2024 * Case Management/Social Work - Dagmar Matta RN - 11/01/2024 3:22 PM EDT Continued Stay Note [place] Patient Name: Jessica Burnham Today's Date: 11/01/2024 [...] does not want patient to go to [facility] for rehab. Saranya would like [place] referrals only. Saranya states she will be at the hospital in the am and will notify CM of her choices of facilities at that time. Patient's insurance, [employer], will require a prior authorization for this rehab request. CM following. Final Discharge Disposition Code 03 - senior care facility (SNF) Discharge Codes No documentation. Expected Discharge Date and Time Expected Discharge Date Expected Discharge Time Nov 02, 2024 Dagmar Matta, RN * Therapy Treatment Note - Razia [...] Procedure: ESOPHAGOGASTRODUODENOSCOPY; Surgeon: Mian Garcia MD; Location: [facility]; Service: Gastroenterology; Laterality: N/A; General Information Row Name 10/31/24 1504 Physical Therapy Time and Intention Document Type therapy note (daily note) -AB Mode of Treatment physical therapy -AB Row Name 10/31/24 6956 General Information Patient Profile Reviewed yes -AB [...] Bed Mobility Bed Mobility supine-sit;sit-supine;scooting/bridging -AB Scooting/Bridging [place] (Bed Mobility) contact guard;1 person assist -AB Supine-Sit [place] (Bed Mobility) contact guard;1 person assist -AB Sit-Supine [place] (Bed Mobility) contact guard;1 person assist -AB Assistive Device (Bed Mobility) head of bed elevated -AB Comment, (Bed Mobility) increased time/effort. -AB Row Name 10/31/24 1505 Transfers Comment, (Transfers) Cues for hand placement and sequencing. -AB Row Name 10/31/24 1505 Sit-Stand Transfer Sit-Stand [place] (Transfers) contact guard;verbal cues;1 person assist -AB Assistive Device (Sit-Stand Transfers) walker, front-wheeled -AB Row Name 10/31/24 1505 Gait/Stairs (Locomotion) [place] Level (Gait) contact guard;1 person assist;verbal cues [...] Type AB Razia Jurado PT Physical Therapist Obj/Interventions Row Name 10/31/24 [...] Patient Position Supine -AB Row Name 10/31/24 151 Positioning and Restraints Pre-Treatment Position in bed -AB Post Treatment Position bed -AB In Bed notified nsg;supine;call light within reach;encouraged to call for assist;exit alarm on -AB User Carmona (r) = Recorded By, (t) = Taken By, (c) = Cosigned By Initials Name Provider Type Razia Molina PT Physical Therapist Outcome Measures Row Name 10/31/245 How much help from another person do [...] (1 or More Minutes)-5 -AB Row Name 10/31/241514 Functional Assessment Outcome Measure Options AM-PAC 6 Clicks Basic Mobility (PT) -AB User Carmona (r) = Recorded By, (t) = Taken By, (c) = Cosigned By Initials Name Provider Type Razia Molina PT Physical Therapist Physical Therapy Education Title: PT OT TESTING [employer]IP[employer] Therapies (In Progress) Topic: Physical Therapy (In Progress) Point: Mobility training (Done) Learning Progress Summary Patient Acceptance, E,D, VU,NR by at 10/31/20241514 Acceptance, E, NR by KR at 10/30/2024 1123 Nonacceptance, E, NR by ST at 10/29/2024 1448 Acceptance, E, VU,NR by MAI at 10/28/2024 1536 Point: Home exercise program (In Progress) Learning Progress Summary Patient Nonacceptance, E, NR by ST at 10/29/2024 1448 Point: Body mechanics (Done) Learning Progress Summary Patient Acceptance, E,D, VU,NR by AB at 10/31/20241514 Acceptance, E, NR by KR at 10/30/2024 [...] PT Received On 10/31/24 -AB Timed Charges 72890 - Gait Training Minutes 10 -AB 51389 - PT Therapeutic Activity Minutes 13 -AB Total Minutes Timed Charges Total Minutes 23 -AB Total Minutes 23 -AB User Carmona (r) = Recorded By, (t) = Taken By, (c) = Cosigned By Initials Name Provider Type AB Razia Jurado, PT Physical Therapist Therapy Charges for Today Code Description Service Date Service Provider Modifiers Qty 42860041480 HC GAIT TRAINING EA 15 MIN 10/31/2024 Razia Jurado, PT GP 1 59293536767 HC PT THERAPEUTIC ACT EA 15 MIN 10/31/2024 Razia Jurado, PT GP 1 PT G-Codes Outcome Measure Options: AM-PAC 6 Clicks Basic Mobility (PT) AM-PAC 6 Clicks Score (PT): 17 AM-PAC 6 Clicks Score (OT): 17 Modified Mclennan Scale: 3 - Moderate disability. Requiring some help, but able to walk without assistance. PT Discharge Summary Anticipated Discharge Disposition (PT): senior care facility Razia Jurado PT 10/31/2024 * Therapy Treatment Note - Sissy Lopez MS CCC-TEST[employer] - 10/30/2024 4:06 PM EDT Images from the original note were not included. Acute Care - Speech Language Pathology Swallow Treatment Note [place] Patient Name: Jessica Burnham : 1935 Today's [...] Procedure: ESOPHAGOGASTRODUODENOSCOPY; Surgeon: Mian Garcia MD; Location: [facility]; Service: Gastroenterology; Laterality: N/A; [employer]ING [employer] Recommendation and Plan [employer] Swallowing Diagnosis: functional oral phase, R/O pharyngeal dysphagia, suspected esophageal dysphagia (10/30/241429) [employer] Diet Recommendation: soft to chew textures, chopped, thin liquids (10/30/241429) Recommended Precautions and Strategies: upright posture during/after eating, small bites of food and sips of liquid, reflux precautions (10/30/241429) [employer]ING [employer] Rec. for Method of Medication Administration: meds whole, meds crushed, with puree, as tolerated (10/30/241429) Monitor for Signs of Aspiration: notify [employer] if any concerns (10/30/241429) Recommended Diagnostics: other (see comments) (diet tolerance) (10/30/241429) Swallow Criteria for Skilled Therapeutic Interventions Met: demonstrates skilled criteria () Anticipated Discharge Disposition (TESTING SHAKING SHIPPING): senior care facility (10/30/241429) Rehab Potential/Prognosis, Swallowing: good, to achieve stated therapy goals (10/30/241429) Therapy Frequency (Swallow): PRN, 5 days per week (10/30/241429) Predicted Duration Therapy Intervention (Days): 1 week (10/30/241429) Oral Care Recommendations: Oral Care BID/PRN, Toothbrush (10/30/241429) Daily Summary of Progress (TESTING SHAKING SHIPPING): progress toward functional goals as expected (10/30/241429) Treatment Assessment (TESTING SHAKING SHIPPING): continued, mild, cognitive-linguistic disorder (10/30/241429) Treatment Assessment Comments (TESTING SHAKING SHIPPING): Patient tolerated trials of soft solids w/o discomfort or s/s of aspiration. EGD completed on 10/29/24 with dilation completed. Diet upgraded this date to soft chopped and thin liquids. Patient continues with mild cognitive linguistic impairment. (10/30/241429) Plan for Continued Treatment (TESTING SHAKING SHIPPING): continue treatment per plan of care (10/30/241429) SWALLOW EVALUATION (Last 72 Hours) [employer]ING [employer] Adult Swallow Evaluation Row Name 10/30/241429 TESTING [employer] SHIPPING Evaluation Clinical Impression [employer] Swallowing Diagnosis functional oral phase;R/O pharyngeal dysphagia;suspected esophageal dysphagia - Functional Impact risk of aspiration/pneumonia;risk of malnutrition - Rehab Potential/Prognosis, Swallowing good, to achieve stated therapy goals - Swallow Criteria for Skilled Therapeutic Interventions Met demonstrates skilled criteria - [employer] Treatment Clinical Impressions Treatment Assessment Comments (TESTING SH[employer]ING SHIPPING) Patient tolerated trials of soft solids w/o discomfort or s/s of aspiration. EGD completed on 10/29/24 with dilation completed. Diet upgraded this date to soft chopped and thin liquids. Patient continues with mild cognitive linguistic impairment. - Recommendations Therapy Frequency (Swallow) PRN;5 days per week - TESTING SHAKING SHIPPING Diet Recommendation soft to chew textures;chopped;thin liquids - Recommended Diagnostics other (see comments) diet tolerance - Recommended Precautions and Strategies upright posture during/after eating;small bites of food and sips of liquid;reflux precautions - Oral Care Recommendations Oral Care BID/PRN;Toothbrush - TESTING SHAKING SHIPPING Rec. for Method of Medication Administration meds whole;meds crushed;with puree;as tolerated - Monitor for Signs of Aspiration notify TESTING SHAKING SHIPPING if any concerns - User Carmona (r) = Recorded By, (t) = Taken By, (c) = Cosigned By Initials Name Effective Dates Sissy Lopez MS [facility]-TEST[facility] SHAKING SHIPPING 05/07/24 - EDUCATION The patient has been educated in the following areas: Dysphagia (Swallowing Impairment) Oral Care/Hydration Modified Diet Instruction. TESTING SHAKING SHIPPING GOALS Row Name 07/15/25 1430 (LTG) Patient will demonstrate functional swallow for Diet Texture (Demonstrate functional swallow) soft to chew (chopped) textures -CH Liquid viscosity (Demonstrate functional swallow) thin liquids - [place] (Demonstrate functional swallow) with minimal cues (75-90% [...] signs/symptoms of aspiration;with adequate oral prep/transit/clearance - [place] (Tolerate trials) with minimal cues (75-90% accuracy) - Time Frame (Tolerate trials) 1 week -CH Progress/Outcomes (Tolerate trials) goal met;goal revised this date -CH Comment (Tolerate trials) goal met for pureed, diet upgraded to soft chopped and thin liquids. - Patient will demonstrate functional cognitive-linguistic skills for return to discharge environment [place] with minimal cues - Time frame 1 week -CH Progress/Outcomes continuing progress toward goal -CH TESTING SHAKING SHIPPING Diagnostic Treatment Patient will participate in further assessment in the following areas clarification of baseline cognitive communication status - Time Frame (Diagnostic) 1 week -CH Progress/Outcomes (Additional Goal 1, TESTING SHAKING SHIPPING) continuing progress toward goal -CH Word Retrieval Skills Goal 1 (TESTING SHAKING SHIPPING) Improve Word Retrieval Skills By Goal 1 (TESTING SHAKING SHIPPING) high frequency;responsive naming task;completing a divergent task;80%;with minimal cues (75-90%) -CH Time Frame (Word Retrieval Goal 1, TESTING SHAKING SHIPPING) 1 week -CH Progress (Word Retrieval Skills Goal 1, TESTING SHAKING SHIPPING) 80%;with minimal cues (75-90%) -CH Progress/Outcomes (Word Retrieval Goal 1, TESTING SHAKING SHIPPING) continuing progress toward goal -CH Orientation Goal 1 (TESTING SHAKING SHIPPING) Improve Orientation Through Goal 1 (TESTING SHAKING SHIPPING) demonstrating orientation to day;demonstrating orientationto month;demonstrating orientation to year;demonstrating orientation to place;demonstrating orientation to disease/impairment;use environmental aids to assist with orientation;80%;with minimal cues (75-90%) -CH Time Frame (Orientation Goal 1, TESTING SHAKING SHIPPING) 1 week -CH Progress (Orientation Goal 1, TESTING SHAKING SHIPPING) 50%;with minimal cues (75-90%) -CH Progress/Outcomes (Orientation Goal 1, TESTING SHAKING SHIPPING) continuing progress toward goal -CH Comment (Orientation Goal 1, TESTING SHAKING SHIPPING) Oriented to self and grossly to place, not to time or situation -CH Memory Skills Goal 1 (TESTING SHAKING SHIPPING) Improve Memory Skills Through Goal 1 (TESTING SHAKING SHIPPING) recalling related word lists immediately;recall details of the day;90%;with minimal cues (75-90%) -CH Time Frame (Memory Skills Goal 1, TESTING SHAKING SHIPPING) 1 week -CH Progress (Memory Skills Goal 1, TESTING SHAKING SHIPPING) 40%;with minimal cues (75-90%) -CH Progress/Outcomes (Memory Skills Goal 1, TESTING SHAKING SHIPPING) continuing progress toward goal -CH User Carmona (r) = Recorded By, (t) = Taken By, (c) = Cosigned By Initials Name Provider Type Sissy Saldana MS [facility]-TESTING SHAKING SHIPPING Speech and Language Pathologist Time Calculation: Time Calculation- TESTING SHAKING SHIPPING Row Name 10/30/24 1601 Time Calculation- TESTING SHAKING SHIPPING TESTING SHAKING SHIPPING Start Time 1430 - TESTING SHAKING SHIPPING Received On 10/30/24 - Untimed Charges 92115-GK Treatment/ST Modification Prosth Nov 39 -CH 03762-YS Treatment Swallow Minutes 45 -CH Total Minutes Untimed Charges Total Minutes 84 -CH Total Minutes 84 -CH User Carmona (r) = Recorded By, (t) = Taken By, (c) = Cosigned By Initials Name Provider Type Sissy Saldana MS [facility]-TESTING SHAKING SHIPPING Speech and Language Pathologist Therapy Charges for Today Code Description Service Date Service Provider Modifiers Qty 34217054660 HC ST TREATMENT SWALLOW 3 10/30/2024 Sissy Lopez MS CCC-TESTING SHAKING SHIPPING GN [address] TREATMENT SPEECH 3 10/30/2024 Sissy Lopez MS CCC-TESTING SHAKING SHIPPING GN 1 Sissy Lopez MS CCC-BARBER 10/30/2024 and Acute Care - Speech Language Pathology Treatment Note [place] Patient Name: Jessica Burnham [...] Procedure: ESOPHAGOGASTRODUODENOSCOPY; Surgeon: Mian Garcia MD; Location: [facility]; Service: Gastroenterology; Laterality: N/A; TESTING SHAKING SHIPPING Recommendation and Plan TESTING SHAKING SHIPPING Diagnosis: mild, cognitive-linguistic disorder (10/30/241429) Monitor for Signs of Aspiration: notify TESTING SHAKING SHIPPING if any concerns (10/30/241429) Swallow Criteria for Skilled Therapeutic Interventions Met: demonstrates skilled criteria () SLC Criteria for Skilled Therapy Interventions Met: yes (10/30/241429) Anticipated Discharge Disposition (TESTING SHAKING SHIPPING): senior care facility (10/30/241429) Therapy Frequency (Swallow): PRN, 5 days per week (10/30/241429) Therapy Frequency (TESTING SHAKING SHIPPING SLC): 5 days per week (10/30/241429) Predicted Duration Therapy Intervention (Days): 1 week (10/30/241429) Oral Care Recommendations: Oral Care BID/PRN, Toothbrush (10/30/241429) Daily Summary of Progress (TESTING SHAKING SHIPPING): progress toward functional goals as expected (10/30/241429) Treatment Assessment (TESTING SHAKING SHIPPING): continued, mild, cognitive-linguistic disorder (10/30/241429) Treatment Assessment Comments (TESTING SHAKING SHIPPING): Patient tolerated trials of soft solids w/o discomfort or s/s of aspiration. EGD completed on 10/29/24 with dilation completed. Diet upgraded this date to soft chopped and thin liquids. Patient continues with mild cognitive linguistic impairment. (10/30/241429) Plan for Continued Treatment (TESTING SHAKING SHIPPING): continue treatment per plan of care (10/30/241429) TESTING SHAKING SHIPPING EVALUATION (Last 72 Hours) TESTING SHAKING SHIPPING SLC Evaluation Row Name 10/30/241429 Communication Assessment/Intervention [...] Pain Rating 0/10 - no pain - TESTING SHAKING SHIPPING Evaluation Clinical Impressions TESTING SHAKING SHIPPING Diagnosis mild;cognitive-linguistic disorder - Rehab Potential/Prognosis good - SLC Criteria for Skilled Therapy Interventions Met yes -CH TESTING SHAKING SHIPPING Treatment Clinical Impressions Treatment Assessment (TESTING SHAKING SHIPPING) continued;mild;cognitive-linguistic disorder - Daily Summary of Progress (TESTING SHAKING SHIPPING) progress toward functional goals as expected - Plan for Continued Treatment (TESTING SHAKING SHIPPING) continue treatment per plan of care - Care Plan Review evaluation/treatment results reviewed;care plan/treatment goals reviewed - Recommendations Therapy Frequency (TESTING SHAKING SHIPPING SLC) 5 days per week -CH Predicted Duration Therapy Intervention (Days) 1 week - Anticipated Discharge Disposition (TESTING SHAKING SHIPPING) senior care facility - User Carmona (r) = Recorded By, (t) = Taken By, (c) = Cosigned By Initials Name Effective Dates Sissy Lopez MS [facility]TEST[facility]AKING SHIPPING 05/07/24 - EDUCATION The patient has been educated in the following areas: Cognitive Impairment Communication Impairment. TESTING SHAKING SHIPPING GOALS Row Name 10/30/24 1430 (LTG) Patient will demonstrate functional swallow for Diet Texture (Demonstrate functional swallow) soft to chew (chopped) textures - Liquid viscosity (Demonstrate functional swallow) thin liquids - [place] (Demonstrate functional swallow) with minimal cues (75-90% accuracy) - Time Frame (Demonstrate functional swallow) 1 week - Progress/Outcomes (Demonstrate functional swallow) good progress toward goal - Comment (Demonstrate functional swallow) Patient tolerated soft solid and thin liquid trials w/o s/s of aspiration - (STG) Patient will tolerate trials of Consistencies Trialed (Tolerate trials) thin liquids;soft to chew (chopped) textures - Desired Outcome (Tolerate trials) without signs/symptoms of aspiration;with adequate oral prep/transit/clearance - [place] (Tolerate trials) with minimal cues (75-90% accuracy) - Time Frame (Tolerate trials) 1 week - Progress/Outcomes (Tolerate trials) goal met;goal revised this date - Comment (Tolerate trials) goal met for pureed, diet upgraded to soft chopped and thin liquids. - Patient will demonstrate functional cognitive-linguistic skills for return to discharge environment [place] with minimal cues - Time frame 1 week -CH Progress/Outcomes continuing progress toward goal -CH TESTING SHAKING SHIPPING Diagnostic Treatment Patient will participate in further assessment in the following areas clarification of baseline cognitive communication status -CH Time Frame (Diagnostic) 1 week -CH Progress/Outcomes (Additional Goal 1, TESTING SHAKING SHIPPING) continuing progress toward goal -CH Word Retrieval Skills Goal 1 (TESTING SHAKING SHIPPING) Improve Word Retrieval Skills By Goal 1 (TESTING SHAKING SHIPPING) high frequency;responsive naming task;completing a divergent task;80%;with minimal cues (75-90%) -CH Time Frame (Word Retrieval Goal 1, TESTING SHAKING SHIPPING) 1 week -CH Progress (Word Retrieval Skills Goal 1, TESTING SHAKING SHIPPING) 80%;with minimal cues (75-90%) -CH Progress/Outcomes (Word Retrieval Goal 1, TESTING SHAKING SHIPPING) continuing progress toward goal -CH Orientation Goal 1 (TESTING SHAKING SHIPPING) Improve Orientation Through Goal 1 (TESTING SHAKING SHIPPING) demonstrating orientation to day;demonstrating orientationto month;demonstrating orientation to year;demonstrating orientation to place;demonstrating orientation to disease/impairment;use environmental aids to assist with orientation;80%;with minimal cues (75-90%) -CH Time Frame (Orientation Goal 1, TESTING SHAKING SHIPPING) 1 week -CH Progress (Orientation Goal 1, TESTING SHAKING SHIPPING) 50%;with minimal cues (75-90%) -CH Progress/Outcomes (Orientation Goal 1, TESTING SHAKING SHIPPING) continuing progress toward goal -CH Comment (Orientation Goal 1, TESTING SHAKING SHIPPING) Oriented to self and grossly to place, not to time or situation - Memory Skills Goal 1 (TESTING SHAKING SHIPPING) Improve Memory Skills Through Goal 1 (TESTING SHAKING SHIPPING) recalling related word lists immediately;recall details of the day;90%;with minimal cues (75-90%) -CH Time Frame (Memory Skills Goal 1, TESTING SHAKING SHIPPING) 1 week -CH Progress (Memory Skills Goal 1, TESTING SHAKING SHIPPING) 40%;with minimal cues (75-90%) - Progress/Outcomes (Memory Skills Goal 1, TESTING SHAKING SHIPPING) continuing progress toward goal -CH User Carmona (r) = Recorded By, (t) = Taken By, (c) = Cosigned By Initials Name Provider Type Sissy Saldana MS [facility]TEST[facility]ING SHIP[facility] Speech and Language Pathologist Time Calculation: Time Calculation- TESTING SHAKING SHIPPING Row Name 10/30/24 1601 Time Calculation- TESTING SHAKING SHIPPING TESTING SHAKING SHIPPING Start Time 1430 - TESTING SHAKING SHIPPING Received On 10/30/24 - Untimed Charges 03455-NE Treatment/ST Modification Prosth Aug Alter 39 -CH 21893-WZ Treatment Swallow Minutes 45 -CH Total Minutes Untimed Charges Total Minutes 84 -CH Total Minutes 84 -CH User Carmona (r) = Recorded By, (t) = Taken By, (c) = Cosigned By Initials Name Provider Type Sissy Saldana MS [facility]-TESTING SHAKING SHIPPING Speech and Language Pathologist Therapy Charges for Today Code Description Service Date Service Provider Modifiers Qty 75587598688 HC ST TREATMENT SWALLOW 3 10/30/2024 Sissy Lopez MS CCC-TESTING SHAKING SHIPPING GN [id number] TREATMENT SPEECH 3 10/30/2024 Jessica Sissy RAVI-TESTING SHAKING SHIPPING GN 1 Sissy Jessica [facility]AVI-TESTING SHAKING SHIPPING 10/30/2024 * Case Management/Social Work - Saeed Ramsay RN - 10/30/2024 2:08 PM EDT Continued Stay Note [facility] Patient Name: Jessica Burnham Today's Date: 10/30/2024 Admit Date: 10/26/2024 Plan: SNF Discharge Plan Row Name 10/30/24 1400 Plan Plan SNF Patient/Family in Agreement with Plan yes Plan Comments I spoke w/Brianna Yip @ [facility], received fax from [facility] on Tuesday. Her contact number is [phone], fax [phone]. She stated that she needs more information about Mr. Burnham from daughter, Saranya. I called Saranya, who lives in [place], [place], she did not know about [facility] or where [facility] was located, I did give her Brianna's information to call. Per Saranya, she prefers her dad to go to a [place] facility for STR, and would like her dad to be able to doSTR , then back to his apt w/caregivers, but then asked if [facility] would keep him? I informedthat I would leave a facility list in Mr. Burnham's room /[facility] for her to review.She plans to be here on , she is also assisting w/her mother. When I leave list, I will speak w/Mr. Burnham too. DC plan is SNF, will need transportation to SNF. Took list to Mr. Burnham, he stated that he did not want to go to [facility], or no where out of town. Speech pathologist was present in room as well, I asked him about SNF in [place], he stated, I don't want to be in that mess either. Will have unit CM f/u on Tuesday. Final Discharge Disposition Code 03 - senior care facility (SNF) Discharge Codes No documentation. Expected [...] Procedure: ESOPHAGOGASTRODUODENOSCOPY; Surgeon: Mian Garcia MD; Location: [facility]; Service: Gastroenterology; Laterality: N/A; [...] Row Name 10/30/24 1130 Sit-Stand Transfer Sit-Stand [place] (Transfers) contact guard;verbal cues -KR Assistive Device (Sit-Stand Transfers) walker, front-wheeled -KR Comment, (Sit-Stand Transfer) 2x from chair with FWW, 5x STS from chair unsupported. -KR Row Name 10/30/24 1130 Gait/Stairs (Locomotion) [place] Level (Gait) contact guard -KR Assistive Device [...] By Initials Name Provider Type Yvonne Martin, ELMA Physical Therapist Outcome Measures Row Name 10/30/24 [...] Provider Type Jaylin Bobby, OT Occupational Therapist Yvonne Martin, PT Physical Therapist Physical Therapy Education Title: PT OT TESTING SHAKING SHIPPING Therapies (In Progress) Topic: Physical Therapy (In [...] - Jennifer Hendrickson, PT Physical Therapist PT KR 04/16/22 - [...] PT Received On 10/30/24 -KR Timed Charges 86689 - PT Therapeutic Exercise Minutes 18 -KR 22310 - PT Therapeutic Activity Minutes 5 -KR Total Minutes Timed Charges Total Minutes 23 -KR Total Minutes 23 -KR User Carmona (r) = Recorded By, (t) = Taken By, (c) = Cosigned By Initials Name Provider Type Yvonne Martin, PT Physical Therapist Therapy Charges for Today Code Description Service Date Service Provider Modifiers Qty 44720689948 HC PT THER PROC EA 15 MIN 10/30/2024 Yvonne Felder, PT GP 1 67530858706 HC PT THERAPEUTIC ACT EA 15 MIN 10/30/2024 Yvonne Felder, PT GP 1 PT G-Codes Outcome Measure Options: AM-PAC 6 Clicks Basic Mobility (PT) AM-PAC 6 Clicks Score (PT): 17 AM-PAC 6 Clicks Score (OT): 17 Modified Terry Scale: 3 - Moderate disability. Requiring some help, but able to walk without assistance. PT Discharge Summary Anticipated Discharge Disposition (PT): senior care facility Yvonne Felder PT 10/30/2024 * Therapy [...] Procedure: ESOPHAGOGASTRODUODENOSCOPY; Surgeon: Mian Garcia MD; Location: [facility]; Service: Gastroenterology; Laterality: N/A; General Information Row Name 10/30/24 1013 OT Time and Intention Document Type therapy note (daily note) -MR Mode of Treatment occupational therapy;individual therapy -MR Row Name 10/30/24 1013 General Information Patient Profile Reviewed yes -MR Existing Precautions/Restrictions fall;other (see comments) dementia -MR Barriers to Rehab previous functional deficit;cognitive status -MR Row Name 10/30/24 1013 Cognition Orientation Status (Cognition) oriented x 3 [...] Cosigned By Initials Name Provider Type MR JameyJaylin, OT Occupational Therapist Mobility/ADL's Row Name 10/30/24 1014 Bed Mobility Comment, (Bed Mobility) Pt received sitting EOB w/ PCT upon OT arrival. -MR Row Name 10/30/24 1014 Transfers Transfers toilet transfer;sit-stand transfer -MR Comment, (Transfers) Pt completed STS from BSC to upright at . Verbal cues for hand placement andsequencing. -MR Row Name 10/30/24 1014 Sit-Stand Transfer Sit-Stand [place] (Transfers) contact guard;verbal cues -MR Assistive Device (Sit-Stand Transfers) walker, front-wheeled -MR Row Name 10/30/24 1014 Toilet Transfer Type (Toilet Transfer) stand pivot/stand step -MR [place] Level (Toilet Transfer) minimum assist (75% patient [...] Name 10/30/24 1014 Upper Body Dressing Assessment/Training [place] Level (Upper Body Dressing) don;contact guard assist;other (see comments) adjusting hospital gown -MR Position (Upper Body Dressing) supported sitting -MR Row Name 10/30/24 1014 Grooming Assessment/Training [place] Level (Grooming) wash face, hands;contact guard assist -MR Position (Grooming) sink side -MR Row Name 10/30/24 1014 Toileting Assessment/Training [place] Level (Toileting) adjust/manage clothing;contact guard assist;perform perineal hygiene;set up -MR Assistive Devices (Toileting) commode, bedside without drop arms -MR Position (Toileting) unsupported sitting;supported standing -MR Row Name 10/30/24 1014 Bathing Assessment/Intervention [place] Level (Bathing) perineal area;other (see comments);contact guard assist buttock -MR Position (Bathing) sink side -MR User Carmona (r) = Recorded By, (t) = Taken By, (c) = Cosigned By Initials Name Provider Type Edouard Concepcionelle OT Occupational Therapist Obj/Interventions Row Name 10/30/24 [...] Provider Type Jaylin Bobby, OT Occupational Therapist Goals/Plan No documentation. Clinical [...] Plan (OT) Anticipated Discharge Disposition (OT) senior care facility -MR Row Name 10/30/24 1018 Vital [...] By Initials Name Provider Type Jaylin Bobby, ENRIQUE Occupational Therapist Outcome Measures Row Name 10/30/24 [...] By Initials Name Provider Type Jaylin Bobby, ENRIQUE Occupational Therapist Occupational Therapy Education Title: PT OT TESTING SHAKING SHIPPING Therapies (In Progress) Topic: Occupational Therapy (In [...] Initials Effective Dates Name Provider Type Discipline MR 01/07/22 - Jaylin Concepcion, OT Occupational Therapist [...] OT Received On 10/30/24 -MR Timed Charges 56271 - OT Therapeutic Activity Minutes 10 -MR 94628 - OT Self Care/Mgmt Minutes 16 -MR Total Minutes Timed Charges Total Minutes 26 -MR Total Minutes 26 -MR User Carmona (r) = Recorded By, (t) = Taken By, (c) = Cosigned By Initials Name Provider Type Jamey ENRIQUE Mosqueda Occupational Therapist Therapy Charges for Today Code Description Service Date Service Provider Modifiers Qty [id number] HC OT THERAPEUTIC ACT EA 15 MIN 10/30/2024 Jaylin Concepcion OT GO 1 [id number] HC OT SELF CARE/MGMT/TRAIN EA 15 MIN 10/30/2024 [...] comments) (P) dementia -ST Row Name 10/29/24 151 Cognition Orientation Status (Cognition) oriented x 3 (P) -ST Row Name 10/29/24 151 Safety Issues/Impairments Affecting Functional Mobility Safety Issues [...] Type Edil Mukherjee, PT Student PT Student Mobility Row Name 10/29/24 151 Bed Mobility Bed Mobility supine-sit;scooting/bridging (P) -ST Scooting/Bridging [place] (Bed Mobility) verbal cues;standby assist (P) -ST Supine-Sit [place] (Bed Mobility) verbal cues;standby assist (P) -ST Assistive Device (Bed Mobility) head of bed elevated (P) -ST Comment, (Bed Mobility) Pt able to assume upright position withut use of bedrails today. Verbal cues provided to encourage pt to EOB. Pt able to scoot self in chair to assume proper sitting position.(P) -ST Row Name 10/29/24 151 Transfers Comment, (Transfers) Cues for safety w/ FWW use and hand placement throughout transfers. (P) -ST Row Name 10/29/24 151 Sit-Stand Transfer Sit-Stand [place] (Transfers) minimum assist (75% patient effort);1 person assist;verbal cues (P) -ST Assistive Device (Sit-Stand Transfers) walker, front-wheeled (P) -ST Comment, (Sit-Stand Transfer) 1x STS from EOB, 5x STS from chair, 1x STS from commode w/ 1x assist and verbal cues to complete safely. (P) -ST Row Name 10/29/24 1519 Gait/Stairs (Locomotion) [place] Level (Gait) contact guard (P) -ST Assistive [...] Type Edil Mukherjee, PT Student PT Student Obj/Interventions Row Name 10/29/241524 Motor Skills Therapeutic Exercise hip (P) -ST [facility] Name 10/29/241524 Hip (Therapeutic Exercise) Hip (Therapeutic Exercise) strengthening exercise (P) 5 x STS from chair with cues for upright trunk and safe FWW use. -ST Row Name 10/29/241524 Balance Balance Assessment sitting static balance;sitting dynamic [...] PT Student Goals/Plan No documentation. Clinical Impression Row Name 10/29/241526 Pain Pretreatment Pain Rating 0/10 - no pain (P) -ST Posttreatment Pain Rating 0/10 - no pain (P) -ST Row Name 10/29/241526 Plan of Care Review Plan of Care [...] rec to SNF upon D/C. (P) -ST Row Name 10/29/24 1527 Therapy Assessment/Plan (PT) Criteria for Skilled Interventions [...] Minutes)-5 -BL Row Name 10/29/24 1531 Modified Terry Scale Pre-Stroke Modified Terry Scale 6 - Unable to determine (UTD) from the medical record documentation (P) -ST Modified Mclennan Scale 3 - Moderate disability. Requiring some help, but able to walk without assistance. (P) -ST User Carmona (r) = Recorded By, (t) = Taken By, (c) = Cosigned By Initials Name Provider Type Ronnie Carter, RN Registered Nurse Edil Mukherjee, PT Student PT Student Physical Therapy Education Title: PT OT TESTING SHAKING SHIPPING Therapies (In Progress) Topic: Physical Therapy (In [...] - Jennifer Hendrickson, PT Physical Therapist PT ST 01/20/24 - [...] Due Date 11/07/24 (P) -ST Timed Charges 71468 - Gait Training Minutes 13 (P) -ST 28694 - PT Therapeutic Activity Minutes 13 (P) -ST Total Minutes Timed Charges Total Minutes 26 (P) -ST Total Minutes 26 (P) -ST User Carmona (r) = Recorded By, (t) = Taken By, (c) = Cosigned By Initials Name Provider Type Edil Franklin, PT Student PT Student Therapy Charges for Today Code Description Service Date Service Provider Modifiers Qty [id number] HC GAIT TRAINING EA 15 MIN 10/29/2024 Edil Franklin, PT Student GP 1 [id number] HC PT THERAPEUTIC ACT EA 15 MIN 10/29/2024 Edil Franklin, PT Student GP 1 PT G-Codes Outcome Measure Options: AM-PAC 6 Clicks Daily Activity (OT), Modified Terry AM-PAC 6 Clicks Score (PT): (P) 17 AM-PAC 6 Clicks Score (OT): 13 Modified Mclennan Scale: (P) 3 - Moderate disability. Requiring some help, but able to walk without assistance. PT Discharge Summary Anticipated Discharge Disposition (PT): (P) senior care facility Edil Franklin PT Student 10/29/2024 Cosigned by Yvonne Felder PT at 10/29/2024 3:55 PM EDT Associated attestation - Yvonne Felder, PT - 10/29/2024 3:55 PM EDT Yvonne Felder PT, DPT, CSRS * Case Management/Social Work - Han Martin, RN - 10/29/2024 11:19 AM EDT Continued Stay Note [facility] Patient Name: Jesisca Burnham Today's Date: 10/29/2024 Admit Date: 10/26/2024 Plan: [facility] Discharge Plan Row Name 10/29/24 1119 Plan Plan [facility] Patient/Family in Agreement with Plan yes Plan Comments CM faxed a referral to [facility] SNF. CM will continue to follow. Final Discharge Disposition Code 03 - senior care facility (SNF) Row Name 10/29/24 0928 Plan Plan [facility] Patient/Family in Agreement with Plan yes Plan Comments Spoke with patient at bedside. Lives alone in [place] Has caregiver 4-5 days a week. Contact is Saranya Carter (daughter/POA) [phone]. Is independent with ADL's. No problems affording [facility] or medications. [facility]. Uses a straight cane. No HH. PCP is [facility]. [facility].Family will transport. CM will continue to follow. Final Discharge Disposition Code 03 - senior care facility (SNF) Discharge Codes No documentation. Expected Discharge Date and Time Expected Discharge Date Expected Discharge Time Oct 29, 2024 Han Martin RN * Case Management/Social Work - Han Martin, RN - 10/29/2024 9:30 AM EDT Images from the original note were not included. Discharge Planning Assessment [place] Patient Name: Jessica Burnham Today's Date: 10/29/2024 Admit Date: 10/26/2024 Plan: [facility] Discharge Needs Assessment Row Name 10/29/24 [...] adult Family Caregiver Names Saranya Carter (daughter) [phone] Able to Return to Prior Arrangements yes [...] last 30 days Current Outpatient/Agency/Support Group senior care facility Equipment Currently Used at Home cane, [...] After Discharge none Outpatient/Agency/Support Group Needs senior care facility Discharge Facility/Level of Care Needs nursing [...] with patient at bedside. Lives alone in [place]. Has caregiver 4-5 days a week. Contact is Saranya Carter (daughter/POA) [phone]. Is independent with ADL's. No problems affording [facility] straight [facility]. No HH. PCP is [facility]. [facility]Family will transport. CM will continue to follow. Final Discharge Disposition Code 03 - senior care facility (SNF) Continued Care and Services - Admitted Since 10/26/2024 No active coordination exists. 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 -AJ Existing Precautions/Restrictions fall;other (see comments) dementia -AJ Barriers to Rehab previous functional deficit;cognitive status - Row Name 10/28/24 1529 Living Environment Current Living Arrangements residential facility;other (see comments) Difficult to determine if he is in a SNF for rehab or skilled nursing. -AJ People in Home facility resident - Row Name 10/28/24 152 Cognition Orientation Status (Cognition) oriented x 3 - Row Name 10/28/24 152 Safety Issues/Impairments Affecting Functional Mobility Safety Issues Affecting Function (Mobility) awareness of need for assistance;insight into deficits/self-awareness;positioning of assistive device;safety precaution awareness;safety precautions follow- through/compliance;sequencing abilities - Impairments Affecting Function (Mobility) balance;cognition;endurance/activity tolerance;postural/trunk control;strength -AJ Cognitive Impairments, Mobility Safety/Performance awareness, need for assistance;insight into deficits/self-awareness;problem-solving/reasoning;safety precaution awareness;safety precaution follow-through;sequencing abilities;attention;judgment - User Carmona (r) = Recorded By, (t) = Taken By, (c) = Cosigned By Initials Name Provider Type AJ Pearl Holt OT Occupational Therapist Mobility/ADL's Row Name 10/28/24 1533 Bed Mobility Bed Mobility supine-sit -AJ Supine-Sit [place] (Bed Mobility) minimum assist (75% patient effort);1 person assist;verbal cues - Bed Mobility, Safety Issues cognitive deficits limit understanding -AJ Assistive Device (Bed Mobility) head of bed elevated;bed rails -AJ Comment, (Bed Mobility) Cues for task initiation - Row Name 10/28/24 153 Transfers Transfers sit-stand transfer;toilet transfer - Row Name 10/28/24 153 Sit-Stand Transfer Sit-Stand [place] (Transfers) minimum assist (75% patient effort);2 person assist;verbal cues - Assistive Device (Sit-Stand Transfers) walker, front-wheeled -AJ Comment, (Sit-Stand Transfer) minAx2 and cues for HP - Row Name 10/28/24 153 Toilet Transfer Type (Toilet Transfer) sit-stand;stand-sit -AJ [place] Level (Toilet Transfer) minimum assist (75% patient effort);2 person assist;verbal cues - Assistive Device (Toilet Transfer) commode;grab bars/safety frame;walker, front- wheeled - Comment, (Toilet Transfer) Cues for utilizing safety bars for safe lowering and rising from commode-[facility] 10/28/241532 Functional Mobility Functional Mobility- Ind. Level 2 person assist required;verbal cues required;contact guard assist - Functional Mobility- Device walker, front-wheeled - Functional Mobility-Distance (Feet) -- to and from bathroom -[facility] Name 10/28/241532 Activities of Daily Living BADL Assessment/Intervention upper body dressing;lower body dressing;grooming;toileting -[facility] 10/28/241532 Upper Body Dressing Assessment/Training [place] Level (Upper Body Dressing) don;doff;front opening garment;moderate assist (50% patient effort) - Position (Upper Body Dressing) unsupported sitting -[facility] 10/28/241532 Lower Body Dressing Assessment/Training [place] Level (Lower Body Dressing) doff;don;socks;maximum assist (25% patient effort);dependent (less than 25% patient effort) - Position (Lower Body Dressing) unsupported sitting -[facility] 10/28/241532 Grooming Assessment/Training [place] Level (Grooming) wash face, hands;set up - Position (Grooming) supported sitting -[facility] 10/28/241532 Toileting Assessment/Training [place] Level (Toileting) adjust/manage clothing;perform perineal hygiene;dependent (less than25% patient effort) - Assistive Devices (Toileting) commode - Position (Toileting) unsupported sitting;supported standing - User Carmona (r) = Recorded By, (t) = Taken By, (c) = Cosigned By Initials Name Provider Type Pearl Eisenberg OT Occupational Therapist Obj/Interventions [facility] Name 10/28/241537 Sensory Assessment (Somatosensory) Sensory Assessment (Somatosensory) UE sensation intact -[facility] 10/28/241537 Vision Assessment/Intervention Visual Impairment/Limitations unable/difficult to assess -[facility] 10/28/241537 Range of Motion Comprehensive General Range of Motion bilateral upper extremity ROM WFL -[facility] 10/28/24 1538 Strength Comprehensive (MMT) General Manual Muscle Testing (MMT) Assessment upper extremity strength deficits identified - Comment, General Manual Muscle Testing (MMT) Assessment BUE grossly 4/5 based on bed mobility and transfers; limited formal assessment d/t poor direction following - Row Name 10/28/24 1538 Balance Balance Assessment sitting static balance;sitting dynamic balance;sit to stand dynamic balance;standing static balance;standing dynamic balance - Static Sitting Balance supervision - Dynamic Sitting Balance standby assist - Position, Sitting Balance unsupported;sitting edge of bed - Static Standing Balance contact guard - Dynamic Standing Balance contact guard - Position/Device Used, Standing Balance supported - Balance Interventions sitting;standing;sit to stand;supported;static;dynamic;occupation based/functional task - User Carmona (r) = Recorded By, (t) = Taken By, (c) = Cosigned By Initials Name Provider Type Pearl Eisenberg OT Occupational Therapist Goals/Plan Row Name 10/28/24 1543 Bed Mobility Goal 1 (OT) Activity/Assistive Device (Bed Mobility Goal 1, OT) sit to supine;supine to sit - [place] Level/Cues Needed (Bed Mobility Goal 1, OT) standby assist - Time Frame (Bed Mobility Goal 1, OT) skilled nursing goal (LTG);10 days - Progress/Outcomes (Bed Mobility Goal 1, OT) new goal - Row Name 10/28/24 1543 Transfer Goal 1 (OT) Activity/Assistive Device (Transfer Goal 1, OT) [id number]-aa-[id number]/wrpfo-be-[id number];[id number]-yd-kiwhd/owgls-sf-tfo;toilet - [place] Level/Cues Needed (Transfer Goal 1, OT) standby assist - Time Frame (Transfer Goal 1, OT) skilled nursing goal (LTG);10 days - Progress/Outcome (Transfer Goal 1, OT) new goal - Row Name 10/28/24 154 Toileting Goal 1 (OT) Activity/Device (Toileting Goal 1, OT) adjust/manage clothing;perform perineal hygiene - [place] Level/Cues Needed (Toileting Goal 1, OT) maximum assist (25-49% patient effort) - Time Frame (Toileting Goal 1, OT) short term goal (STG);2 days - Progress/Outcome (Toileting Goal 1, OT) new goal [...] Plan (OT) Anticipated Discharge Disposition (OT) senior care facility - Row Name 10/28/24 1539 Vital Signs Pre Systolic BP Rehab 141 -AJ Pre Treatment Diastolic BP 112 -AJ Post Systolic BP Rehab 132 -AJ Post Treatment Diastolic BP 104 -AJ Pretreatment Heart Rate (beats/min) 82 -AJ Posttreatment Heart Rate (beats/min) 83 -AJ Pre SpO2 (%) 98 -AJ O2 Delivery Pre Treatment room air -AJ Post SpO2 (%) 98 -AJ O2 Delivery Post Treatment room air -AJ Pre Patient Position Supine -AJ Intra Patient Position Standing -AJ Post Patient Position Sitting -AJ Row Name 10/28/24 1539 Positioning and Restraints Pre-Treatment Position in bed -AJ Post Treatment Position chair -AJ In Chair notified nsg;reclined;sitting;call light within reach;encouraged to call for assist;exit alarm on;waffle cushion;legs elevated -AJ User Carmona (r) = Recorded By, (t) = Taken By, (c) = Cosigned By Initials Name Provider Type Pearl Eisenberg, ENRIQUE Occupational Therapist Outcome Measures Row Name 10/28/24 [...] Minutes)-5 -BL Row Name 10/28/24 1544 Modified Mclennan Scale Pre-Stroke Modified Mclennan Scale 6 - Unable to determine (UTD) from the medical record documentation - Modified Mclennan Scale 3 - Moderate disability. Requiring some help, but able to walk without assistance. - Row Name 10/28/24 1544 10/28/24 1536 Functional Assessment Outcome Measure Options AM-PAC 6 Clicks Daily Activity (OT);Modified Mclennan -[facility]-PAC 6 Clicks Basic Mobility (PT) -MAI User Carmona (r) = Recorded By, (t) = Taken By, (c) = Cosigned By Initials Name Provider Type Jennifer Olvera, PT Physical Therapist Ronnie Salas, AVILA Registered Nurse Pearl Eisenberg, OT Occupational Therapist Occupational Therapy Education Title: PT OT TESTING [employer] Therapies (In Progress) Topic: Occupational Therapy (In Progress) Point: ADL training (Done) Learning Progress Summary Patient Acceptance, E,D, VU,NR by JOSE MARIA at 10/28/2024 1545 Point: Precautions (Done) Learning Progress Summary Patient Acceptance, E,D, VU,NR by JOSE MARIA at 10/28/2024 1545 Point: Body mechanics (Done) Learning Progress Summary Patient Acceptance, E,D, VU,NR by JOSE MARIA at 10/28/2024 1545 User Carmona Initials Effective Dates Name Provider Type [facility] 12/12/23 - Pearl Holt OT Occupational Therapist [...] Time 1459 -AJ OT Received On 10/28/24 - OT Goal Re-Cert Due Date 11/07/24 - Untimed Charges OT Eval/Re-eval Minutes 47 - Total Minutes Untimed Charges Total Minutes 47 -AJ Total Minutes 47 -AJ User Carmona (r) = Recorded By, (t) = Taken By, (c) = Cosigned By Initials Name Provider Type Pearl Holt OT Occupational Therapist Therapy Charges for Today Code Description Service Date Service Provider Modifiers Qty [id number] OT EVAL LOW COMPLEXITY 4 10/28/2024 Pearl [...] Therapy Time and Intention Document Type evaluation - Mode of Treatment physical therapy - Row Name 10/28/24 1525 General Information Patient Profile Reviewed yes -MAI Prior Level of Function -- Per chart facility resident, limited historian. -MAI Existing Precautions/Restrictions fall;other (see comments) cognition - Barriers to Rehab cognitive status;previous functional deficit - Row Name 10/28/24 1525 Living Environment Current Living Arrangements residential facility - Row Name 10/28/24 1525 Safety Issues/Impairments Affecting Functional Mobility Impairments Affecting Function (Mobility) balance;cognition;endurance/activity tolerance;postural/trunk control - User Carmona (r) = Recorded By, (t) = Taken By, (c) = Cosigned By Initials Name Provider Type MAI Jennifer Hendrickson, PT Physical Therapist Mobility Row Name 10/28/24 1528 Bed Mobility Bed Mobility supine-sit -MAI Supine-Sit [place] (Bed Mobility) verbal cues;nonverbal cues (demo/gesture);minimum assist (75% patient effort) -MAI Assistive Device (Bed Mobility) head of bed elevated;bed rails -MAI Comment, (Bed Mobility) Pt utilized bed rail -MAI Row Name 10/28/24 1528 Transfers Comment, (Transfers) Cues for sequencing and hand placement with FWW. -MAI Row Name 10/28/24 1528 Sit-Stand Transfer Sit-Stand [place] (Transfers) minimum assist (75% patient effort) -MAI Assistive Device (Sit-Stand Transfers) walker, front-wheeled -MAI Comment, (Sit-Stand Transfer) VCs -MAI Row Name 10/28/24 1528 Gait/Stairs (Locomotion) [place] Level (Gait) contact guard -MAI Assistive Device [...] Type MAI Jennifer Hendrickson, PT Physical Therapist Obj/Interventions Row Name 10/28/24 1531 Range of Motion Comprehensive General Range of Motion bilateral lower extremity ROM WFL -MAI Row Name 10/28/24 153 Strength Comprehensive (MMT) General Manual Muscle Testing (MMT) Assessment lower extremity strength deficits identified -MAI Comment, General Manual Muscle Testing (MMT) Assessment LEs grossly 4-/5 -MAI Row Name 10/28/24 1531 Balance Balance Assessment sitting static balance;standing static [...] Type MAI Jennifer Hendrickson, PT Physical Therapist Goals/Plan Row Name 10/28/24 153 Bed Mobility Goal 1 (PT) Activity/Assistive Device (Bed Mobility Goal 1, PT) sit to supine/supine to sit -MAI [place] Level/Cues Needed (Bed Mobility Goal 1, PT) independent -MAI Time Frame (Bed Mobility Goal 1, PT) skilled nursing goal (LTG);10 days -MAI Row Name 10/28/24 153 Transfer Goal 1 (PT) Activity/Assistive Device (Transfer Goal 1, PT) jih-bf-abxej/vkjbi-hz-wts -MAI [place] Level/Cues Needed (Transfer Goal 1, PT) modified independence -MAI Time Frame (Transfer Goal 1, PT) short term goal (STG);5 days -MAI Row Name 10/28/24 153 Gait Training Goal 1 (PT) Activity/Assistive Device (Gait Training Goal 1, PT) gait (walking locomotion);assistive device use-MAI [place] Level (Gait Training Goal 1, PT) modified independence -MAI Distance (Gait Training Goal 1, PT) 100 -MAI Time Frame (Gait Training Goal 1, PT) extermination supervisor goal (LTG);10 days -MAI Row Name 10/28/24 153 Therapy Assessment/Plan (PT) Planned Therapy Interventions (PT) [...] Posttreatment Pain Rating 0/10 - no pain -AMI Row Name 10/28/241530 Plan of Care Review [...] Recommend SNF upon DC. -MAI Row Name 10/28/241530 Therapy Assessment/Plan (PT) Patient/Family Therapy Goals Statement [...] 10/28/24 1536 Functional Assessment Outcome Measure Options AM-[facility] 6 Clicks Basic Mobility (PT) - User Carmona (r) = Recorded By, (t) = Taken By, (c) = Cosigned By Initials Name Provider Type Jennifer Olvera, PT Physical Therapist Ronnie Salas, RN Registered Nurse Physical Therapy Education Title: PT OT TESTING [employer]AKING SHIPPING Therapies (In Progress) Topic: Physical Therapy (In [...] Description Service Date Service Provider Modifiers Qty [id number] HC-PT EVAL MOD COMPLEXITY 5 10/28/2024 Jennifer Hendrickson, PT 1 PT G-Codes Outcome Measure Options: AM-PAC 6 Clicks Basic Mobility (PT) AM-PAC 6 Clicks Score (PT): 18 PT Discharge Summary Anticipated Discharge Disposition (PT): senior care facility Jennifer Hendrickson PT 10/28/2024 * Therapy Evaluation - Sissy Lopez MS [facility] [employer] - 10/27/2024 2:46 PM EDT Images from the original note were not included. Acute Care - Speech Language Pathology Swallow Initial Evaluation [facility] Clinical Swallow Evaluation Cognitive-Communication Evaluation Patient Name: Jessica Burnham : 1935 Today's Date: 10/27/2024 Admit Date: 10/26/2024 Visit Dx: No diagnosis found. Patient Active Problem List Diagnosis Stroke-like symptoms No past medical history on file. No past surgical history on file. [employer] Recommendation and Plan [employer]ING [employer] Swallowing Diagnosis: functional oral phase, R/O pharyngeal dysphagia, suspected esophageal dysphagia (07/12/25 1300) [employer]ING [employer] Diet Recommendation: puree, thin liquids, other (see comments) (pureed for comfort as pt c/o solids sticking in his esophagus) (10/27/241299) Recommended Precautions and Strategies: upright posture during/after eating, small bites of food and sips of liquid, reflux precautions (10/27/241299) [employer] Rec. for Method of Medication Administration: meds whole, meds crushed, with puree, as tolerated (10/27/241299) Monitor for Signs of Aspiration: notify [employer] if any concerns (10/27/241299) Recommended Diagnostics: other (see comments) (diet tolerance, MBS if any concerns after GI sees) (10/27/241299) Swallow Criteria for Skilled Therapeutic Interventions Met: demonstrates skilled criteria () Anticipated Discharge Disposition (TESTING [employer] SH[employer]): senior care facility (10/27/241299) Rehab Potential/Prognosis, Swallowing: good, to [...] indicated (10/27/241299) SWALLOW EVALUATION (Last 72 Hours) [employer]ING [employer] Adult Swallow Evaluation Row Name 10/27/241299 General Information Current Method of Nutrition NPO -CH Prior Level of Function-Communication cognitive-linguistic impairment;other (see comments) -CH General Eating/Swallowing Observations Respiratory Support Currently in Use room air - Eating/Swallowing Skills self-fed;appropriate self-feeding skills observed -CH [...] and having to cough it back up - Sensation of Material Sticking mechanical soft;regular consistencies - Swallowing Quality of Life Assessment Education and counseling provided Signs of aspiration;Risks of aspiration;Oral care recommendationsand rationale - [employer] Evaluation Clinical Impression [employer] Swallowing Diagnosis functional oral phase;R/O pharyngeal dysphagia;suspected esophageal dysphagia - Functional Impact risk of aspiration/pneumonia;risk of malnutrition - Rehab Potential/Prognosis, Swallowing good, to achieve stated therapy goals - Swallow Criteria for Skilled Therapeutic Interventions Met demonstrates skilled criteria - Recommendations Therapy Frequency (Swallow) PRN;5 days per week - [employer] Diet Recommendation puree;thin liquids;other (see comments) pureed for comfort as pt c/o solidssticking in his esophagus - Recommended Diagnostics other (see comments) diet tolerance, MBS if any concerns after GI sees - Recommended Precautions and Strategies upright posture during/after eating;small bites of food and sips of liquid;reflux precautions - Oral Care Recommendations Oral Care BID/PRN;Toothbrush - [employer] Rec. for Method of Medication Administration meds whole;meds crushed;with puree;as tolerated - Monitor for Signs of Aspiration notify [employer] if any concerns - Demonstrates Need for Referral to Another Service gastroenterology;dedicated esophageal assessment - Swallowing Considerations per Physician Discretion medical management of suspected esophageal dysphagia, as indicated - User Carmona (r) = Recorded By, (t) = Taken By, (c) = Cosigned By Initials Name Effective Dates Sissy Lopez, [facility] [employer] 05/07/24 - EDUCATION The patient has been educated in the following areas: Dysphagia (Swallowing Impairment) Oral Care/Hydration Modified Diet Instruction. [employer] GOALS Row Name 10/27/24 1300 (LTG) Patient will demonstrate functional swallow for Diet Texture (Demonstrate functional swallow) mechanical ground textures - Liquid viscosity (Demonstrate functional swallow) thin liquids - [place] (Demonstrate functional swallow) with minimal cues (75-90% accuracy) - Time Frame (Demonstrate functional swallow) 1 week - (STG) Patient will tolerate trials of Consistencies Trialed (Tolerate trials) pureed textures;thin liquids - Desired Outcome (Tolerate trials) without signs/symptoms of aspiration;with adequate oral prep/transit/clearance - [place] (Tolerate trials) with minimal cues (75-90% accuracy) - Time Frame (Tolerate trials) 1 week - Patient will demonstrate functional cognitive-linguistic skills for return to discharge environment [place] with minimal cues -CH Time frame 1 week -CH [employer]ING [employer] Diagnostic Treatment Patient will participate in further assessment in the following areas clarification of baseline cognitive communication status -CH Time Frame (Diagnostic) 1 week -CH Word Retrieval Skills Goal 1 ([employer]ING [employer]) Improve Word Retrieval Skills By Goal 1 (TESTING SHAK[employer]IPPING) high frequency;responsive naming task;completing a divergent task;80%;with minimal cues (75-90%) - Time Frame (Word Retrieval Goal 1, [employer]ING [employer]IPPING) 1 week -CH Orientation Goal 1 (TESTING SHAKING SHIPPING) Improve Orientation Through Goal 1 (TESTING [employer]AK[employer]IPPING) demonstrating orientation to day;demonstrating orientationto month;demonstrating orientation to year;demonstrating orientation to place;demonstrating orientation to disease/impairment;use environmental aids to assist with orientation;80%;with minimal cues (75-90%) - Time Frame (Orientation Goal 1, TESTING [employer]IPPING) 1 week -CH Memory Skills Goal 1 (TESTING SHAKING SHIPPING) Improve Memory Skills Through Goal 1 (TESTING SHAK[employer]IPPING) recalling related word lists immediately;recall details of the day;90%;with minimal cues (75-90%) - Time Frame (Memory Skills Goal 1, TESTING SHAK[employer] SHIPPING) 1 week - User Carmona (r) = Recorded By, (t) = Taken By, (c) = Cosigned By Initials Name Provider Type Sissy Saldana MS [facility]-[employer] Speech and Language Pathologist Time Calculation: Time Calculation- [employer] Row Name 10/27/24 1439 Time Calculation- TESTING [employer]PING TESTING SHAKING SHIPPING Start Time 1300 -CH TESTING SHAKING SHIPPING Received On 10/27/24 - Untimed Charges TESTING SHAKING SHIPPING Eval/Re-eval ST Eval Speech and Production w/ Language - 98862;ST Eval Oral Pharyng Swallow - 56948 -CH [id number]-OV Eval Speech and Production w/ Language Minutes 40 -CH [id number]-EV Eval Oral Pharyng Swallow Minutes 42 -CH Total Minutes Untimed Charges Total Minutes 82 -CH Total Minutes 82 -CH User Carmona (r) = Recorded By, (t) = Taken By, (c) = Cosigned By Initials Name Provider Type Sissy Saldana MS [facility]-[employer] Speech and Language Pathologist Therapy Charges for Today Code Description Service Date Service Provider Modifiers Qty [id number] ST EVAL ORAL PHARYNG SWALLOW 3 10/27/2024 LopezSissy boyer, MS [facility]-[employer] GN [id number] EVAL SPEECH AND PROD W LANG 3 10/27/2024 LopezSissy boyer, MS CCC-[employer] GN 1 Sissy Jessica, MS CCC-[employer] 10/27/2024 and Acute Care - Speech Language Pathology Initial Evaluation [place] Patient Name: Jessica Burnham : 1935 Today's Date: 10/27/2024 Admit Date: 10/26/2024 Visit Dx: No diagnosis found. Patient Active Problem List Diagnosis Stroke-like symptoms No past medical history on file. No past surgical history on file. [employer] Recommendation and Plan [employer]ING [employer]IP[employer] Diagnosis: mild, cognitive-linguistic disorder (10/27/24 1300) Monitor for Signs of Aspiration: notify [employer] if any concerns (10/27/241299) Swallow Criteria for Skilled Therapeutic Interventions Met: demonstrates skilled criteria () S[facility] Criteria for Skilled Therapy Interventions Met: yes (10/27/24 1300) Anticipated Discharge Disposition (TESTING SHAKING SHIPPING): senior care facility (10/27/24 1300) Demonstrates Need for Referral to Another Service: gastroenterology, dedicated esophageal assessment (10/27/241299) Therapy Frequency (Swallow): PRN, 5 days per week (10/27/24 1300) Therapy Frequency (TESTING SHAKING SHIPPING SLC): 5 days per week (10/27/241299) Predicted Duration Therapy Intervention (Days): 1 week (10/27/241299) Oral Care Recommendations: Oral Care BID/PRN, Toothbrush (10/27/24 1300) TESTING [employer]AK[employer]IPPING EVALUATION (Last 72 Hours) TESTING [employer]IP[employer] SLC Evaluation Row Name 10/27/241299 Communication Assessment/Intervention [...] difficulty following commands. Hx dementia. MRI pending. -CH Precautions/Limitations, Vision WFL;for purposes of eval -CH Precautions/Limitations, Hearing WFL;for purposes of eval -CH Prior Level of Function-Communication cognitive-linguistic impairment;other (see comments) dementiaat baseline - Plans/Goals Discussed with patient;agreed upon - Barriers to Rehab cognitive status - Patient's Goals for Discharge patient did not state - Pain Pretreatment Pain Rating 0/10 - no pain -CH Posttreatment Pain Rating 0/10 - no pain - Comprehension Assessment/Intervention Comprehension Assessment/Intervention Auditory Comprehension;Reading Comprehension - Auditory Comprehension Assessment/Intervention Auditory Comprehension (Communication) WFL - Reading Comprehension Assessment/Intervention Phrase Level WFL - Expression Assessment/Intervention Expression Assessment/Intervention verbal expression - Verbal Expression Assessment/Intervention Verbal Expression mild impairment -CH Automatic Speech (Communication) response to greeting;counting 1-20;days of week;WFL - Repetition sentences;WFL - Phrase Completion automatic/predictable;WFL - Responsive Naming simple;mild impairment - Confrontational Naming high frequency;WFL - Spontaneous/Functional Words WFL - Sentence Formulation WFL - Oral Motor Structure and Function Oral Motor Structure and Function mild impairment -CH Dentition Assessment edentulous, does not have dentures - Mucosal Quality dry - Oral Musculature and Cranial Nerve Assessment Oral Labial or Buccal Impairment, Detail, Cranial Nerve VII (Facial): left labial droop - Motor Speech Assessment/Intervention Motor Speech Function WFL - Cursory Voice Assessment/Intervention Quality and Resonance (Voice) WNL - Cognitive Assessment Intervention- TESTING SHAKING SHIPPING Cognitive Function (Cognition) mild impairment -CH Orientation Status (Cognition) awareness of basic personal information;person;WFL;place;time;situation;mild impairment -CH Memory (Cognitive) simple;immediate;long-term;WFL;short-term;delayed;mild impairment -CH Attention (Cognitive) selective;sustained;WFL;attention to detail;mild impairment -CH Thought Organization (Cognitive) concrete divergent;abstract divergent;concrete convergent;abstractconvergent;verbal sequencing;mild impairment -CH Reasoning (Cognitive) simple;deductive;WFL -CH TESTING SHAKING SHIPPING Evaluation Clinical Impressions TESTING SHAKING SHIPPING Diagnosis mild;cognitive-linguistic disorder - Rehab Potential/Prognosis good - [facility] Criteria for Skilled Therapy Interventions Met yes - Recommendations Therapy Frequency (TESTING SHAKING SHIPPING SLC) 5 days per week - Predicted Duration Therapy Intervention (Days) 1 week - Anticipated Discharge Disposition (TESTING SHAKING SHIPPING) senior care facility -CH User Carmona (r) = Recorded By, (t) = Taken By, (c) = Cosigned By Initials Name Effective Dates Sissy Saldana MS CCC-TESTING SHAKING SHIPPING 05/07/24 - EDUCATION The patient has been educated in the following areas: Cognitive Impairment Communication Impairment. TESTING SHAKING SHIPPING GOALS Row Name 10/27/24 1300 (LTG) Patient will demonstrate functional swallow for Diet Texture (Demonstrate functional swallow) mechanical ground textures -CH Liquid viscosity (Demonstrate functional swallow) thin liquids -CH [place] (Demonstrate functional swallow) with minimal cues (75-90% accuracy) -CH Time Frame (Demonstrate functional swallow) 1 week -CH (STG) Patient will tolerate trials of Consistencies Trialed (Tolerate trials) pureed textures;thin liquids -CH Desired Outcome (Tolerate trials) without signs/symptoms of aspiration;with adequate oral prep/transit/clearance -CH [place] (Tolerate trials) with minimal cues (75-90% accuracy) -CH Time Frame (Tolerate trials) 1 week -CH Patient will demonstrate functional cognitive-linguistic skills for return to discharge environment [place] with minimal cues -CH Time frame 1 week -CH TESTING SHAKING SHIPPING Diagnostic Treatment Patient will participate in further assessment in the following areas clarification of baseline cognitive communication status -CH Time Frame (Diagnostic) 1 week -CH Word Retrieval Skills Goal 1 (TESTING SHAKING SHIPPING) Improve Word Retrieval Skills By Goal 1 (TESTING SHAKING SHIPPING) high frequency;responsive naming task;completing a divergent task;80%;with minimal cues (75-90%) - Time Frame (Word Retrieval Goal 1, TESTING SHAKING SHIPPING) 1 week -CH Orientation Goal 1 (TESTING SHAKING SHIPPING) Improve Orientation Through Goal 1 (TESTING SHAKING SHIPPING) demonstrating orientation to day;demonstrating orientationto month;demonstrating orientation to year;demonstrating orientation to place;demonstrating orientation to disease/impairment;use environmental aids to assist with orientation;80%;with minimal cues (75-90%) - Time Frame (Orientation Goal 1, TESTING SHAKING SHIPPING) 1 week -CH Memory Skills Goal 1 (TESTING SHAKING SHIPPING) Improve Memory Skills Through Goal 1 (TESTING SHAKING SHIPPING) recalling related word lists immediately;recall details of the day;90%;with minimal cues (75-90%) - Time Frame (Memory Skills Goal 1, TESTING SHAKING SHIPPING) 1 week - User Carmona (r) = Recorded By, (t) = Taken By, (c) = Cosigned By Initials Name Provider Type Sissy Saldana MS CCC-TESTING SHAKING SHIPPING Speech and Language Pathologist Time Calculation: Time Calculation- TESTING SHAKING SHIPPING Row Name 10/27/24 1439 Time Calculation- TESTING SHAKING SHIPPING TESTING SHAKING SHIPPING Start Time 1300 -CH TESTING SHAKING SHIPPING Received On 10/27/24 -CH Untimed Charges TESTING SHAKING SHIPPING Eval/Re-eval ST Eval Speech and Production w/ Language - 98062;ST Eval Oral Pharyng Swallow - 47526 -CH 81935-DX Eval Speech and Production w/ Language Minutes 40 -CH 30692-WB Eval Oral Pharyng Swallow Minutes 42 -CH Total Minutes Untimed Charges Total Minutes 82 -CH Total Minutes 82 -CH User Carmona (r) = Recorded By, (t) = Taken By, (c) = Cosigned By Initials Name Provider Type Sissy Lopez MS CCC-TESTING SHAKING SHIPPING Speech and Language Pathologist Therapy Charges for Today Code Description Service Date Service Provider Modifiers Qty [id number] HC ST EVAL ORAL PHARYNG SWALLOW 3 10/27/2024 Sissy Lopez MS CCC-TESTING SHAKING SHIPPING GN [id number] EVAL SPEECH AND PROD W LANG 3 10/27/2024 Sissy Lopez MS CCC-TESTING SHAKING SHIPPING GN 1 MS REZA Davalos 10/27/2024 documented in this encounter Plan of Treatment Not on file documented as of this encounter Procedures Procedure Name Priority Date/Time Associated Diagnosis Comments URINALYSIS, MICROSCOPIC ONLY Routine 10:12 AM EDT URINALYSIS W/ CULTURE IF INDICATED Routine 10/30/2024 10:12 AM EDT KS ESOPHAGOGASTRODUODENOSCOP Y TRANSORAL DIAGNOSTIC 10/29/2024 9:30 AM [...] Seen, 0-2 /HPF 10/30/2024 10:31 AM EDT [facility] WBC, UA 0-2 None Seen, 0-2 /HPF 10/30/2024 10:31 AM EDT [facility] Comment:Urine culture not in dicated. Bacteria, UA None Seen None Seen /HPF 10/30/2024 10:31 AM EDT [facility] Squamous Epithelial Cells, UA 0-2 None Seen, 0-2 /HPF 10/30/2024 10:31 AM EDT [facility] Hyaline Casts, UA None Seen None Seen /LPF 10/30/2024 10:31 AM EDT [facility] Methodology Automated Microscopy 10/30/2024 10:31 AM EDT [facility] Urine Urine specimen obtained by clean catch procedure / Unknown Collection / Unknown 10/30/2024 10:12 AM EDT 10/30/2024 10:12 AM EDT us Che Kiser DENTAL LAB TECHNICIAN URINE ORDERABLES F inal Result [facility]
[address] [place] [address], * (ABNORMAL) Urinalysis With Culture If Indicated - Urine, Clean Catch (10/30/2024 10:12 AM EDT) Color, UA Yellow Yellow, Straw 10/30/2024 10:31 AM EDT [facility] Appearance, UA Clear Clear 10/30/2024 10:31 AM EDT [facility] pH, UA 7.0 5.0 - 8.0 10/30/2024 10:31 AM EDT [facility] Specific [place], UA 1.011 1.005 - 1.030 10/30/2024 10:[facility] Glucose, UA Negative Negative 10/30/2024 10:31 AM EDT [facility] Ketones, UA Negative Negative 10/30/2024 10:31 AM EDT [facility] Bilirubin, UA Negative Negative 10/30/2024 10:[facility] Blood, UA Negative Negative 10/30/2024 10:31 AM EDT [facility] Protein, UA 30 mg/dL (1+)(A) Negative 10/30/2024 10:31 AM [facility] Leuk Esterase, UA Moderate (2+)(A) Negative 10/30/2024 10:31 AM EDT [facility] Nitrite, UA Negative Negative 10/30/2024 10:31 AM EDT [facility] Urobilinogen, UA 1.0 E.U./dL 0.2 - 1.0 E.U./dL 10/30/2024 10:31 AM [facility] Urine Urine specimen obtained by clean catch procedure / Unknown Collection / Unknown 10/30/2024 10:12 AM EDT 10/30/2024 10:12 AM EDT [facility] - 10/30/2024 10:31 AM EDT In absence of clinical symptoms, the presence of pyuria, bacteria, and/or nitrites on the urinalysis result does not correlate with infection. Checarson Kiser DENTAL LAB TECHNICIAN URINE ORDERABLES F inal Result [facility]
[address] [place] [address], * Upper GI Endoscopy (10/29/2024 9:19 AM [...] AND COLOR FLOW (10/28/2024 9:35 AM EDT) [facility] EF(MOD-bp) 37.8 % LVIDd 3.8 cm LVIDs [...] the predominant rhythm observed during the procedure. Lamont Hernandez PA-C CV ECHO ORDERABLES Final Res ult * Basic Metabolic Panel (10/28/2024 8:42 AM EDT) Glucose 85 65 - 99 mg/dL 10/28/2024 9:56 AM EDT [facility] BUN 21.0 8.0 - 23.0 mg/dL 10/28/2024 9:56 AM EDT [facility] Creatinine 1.10 0.76 - 1.27 mg/dL 10/28/2024 9:56 AM EDT [facility] Sodium 140 136 - 145 mmol/L 10/28/2024 9:56 AM EDT [facility] Potassium 4.0 3.5 - 5.2 mmol/L 10/28/2024 9:56 AM EDT [facility] Chloride 104 98 - 107 mmol/L 10/28/2024 9:56 AM EDT [facility] CO2 24.0 22.0 - 29.0 mmol/L 10/28/2024 9:56 AM EDT [facility] Calcium 9.2 8.6 - 10.5 mg/dL 10/28/2024 9:56 AM EDT [facility] BUN/Creatinine Ratio 19.1 7.0 - 25.0 10/28/2024 9:56 AM EDT [facility] Anion Gap 12.0 5.0 - 15.0 mmol/L 10/28/2024 9:56 AM EDT [facility] eGFR 64.2 >60.0 mL/min/1.7 3 10/28/2024 9:56 AM EDT [facility] Blood Venipuncture / Unknown 10/28/2024 8:42 AM EDT 10/28/2024 9:09 AM EDT [facility] - 10/28/2024 9:56 AM EDT [...] MD LAB BLOOD ORDERABLES Final Res ult [facility]
[address] [place] [address], * CBC (No Diff) (10/28/2024 8:42 AM EDT) WBC 4.81 3.40 - 10.80 10*3/mm3 10/28/2024 9:16 AM EDT [facility] RBC 5.42 4.14 - 5.80 10*6/mm3 10/28/2024 9:16 AM EDT [facility] Hemoglobin 14.9 13.0 - 17.7 g/dL 10/28/2024 9:16 AM EDT [facility] Hematocrit 43.1 37.5 - 51.0 % 10/28/2024 9:16 AM EDT [facility] MCV 79.5 79.0 - 97.0 fL 10/28/2024 9:16 AM EDT [facility] MCH 27.5 26.6 - 33.0 pg 10/28/2024 9:16 AM EDT [facility] MCHC 34.6 31.5 - 35.7 g/dL 10/28/2024 9:16 AM EDT [facility] RDW 15.1 12.3 - 15.4 % 10/28/2024 9:16 AM EDT [facility] RDW-SD 43.6 37.0 - 54.0 fl 10/28/2024 9:16 AM EDT [facility] MPV 10.9 6.0 - 12.0 fL 10/28/2024 9:16 AM EDT [facility] Platelets 168 140 - 450 10*3/mm3 10/28/2024 9:16 AM EDT [facility] Blood Venipuncture / Unknown 10/28/2024 8:42 AM EDT 10/28/2024 9:09 AM EDT us Saeed Monique MD LAB BLOOD ORDERABLES Final Res ult [facility]
[address] [place] [address], * ECG 12 Lead QT Measurement (10/28/2024 12:32 AM EDT) [facility] QT Interval 398 ms ECG QTC Interval [...] Seen, 0-2 /HPF 10/28/2024 2:13 AM EDT [facility] WBC, UA 0-2 None Seen, 0-2 /HPF 10/28/2024 2:13 AM EDT [facility] Comment:Urine culture not in dicated. Bacteria, UA 1+(A) None Seen /HPF 10/28/2024 2:13 AM EDT [facility] Squamous Epithelial Cells, UA 0-2 None Seen, 0-2 /HPF 10/28/2024 2:13 AM EDT [facility] Hyaline Casts, UA None Seen None Seen /LPF 10/28/2024 2:13 AM EDT [facility] Methodology Manual Light Microscopy 10/28/2024 2:13 AM EDT [facility] Urine Urine specimen obtained by clean catch procedure / Unknown Collection / Unknown 10/28/2024 12:09 AM EDT 10/28/2024 1:00 AM EDT Gal Weiner PA-C URINE ORDERABLES Fin al Result [facility]
[address] [place] [address], * (ABNORMAL) Urinalysis With Culture If Indicated - Urine, Clean Catch (10/28/2024 12:09 AM EDT) Color, UA Yellow Yellow, Straw 10/28/2024 1:18 AM EDT [facility] Appearance, UA Clear Clear 10/28/2024 1:18 AM EDT [facility] pH, UA 8.0 5.0 - 8.0 10/28/2024 1:18 AM EDT [facility] Specific [place], UA 1.013 1.005 - 1.030 10/28/2024 1:18 AM EDT [facility] Glucose, UA Negative Negative 10/28/2024 1:18 AM EDT [facility] Ketones, UA Negative Negative 10/28/2024 1:18 AM EDT [facility] Bilirubin, UA Negative Negative 10/28/2024 1:18 AM EDT [facility] Blood, UA Negative Negative 10/28/2024 1:18 AM EDT [facility] Protein, UA 30 mg/dL (1+)(A) Negative 10/28/2024 1:18 AM EDT [facility] Leuk Esterase, UA Trace(A) Negative 10/28/2024 1:18 AM EDT [facility] Nitrite, UA Negative Negative 10/28/2024 1:18 AM EDT [facility] Urobilinogen, UA 1.0 E.U./dL 0.2 - 1.0 E.U./dL 10/28/2024 1:18 AM EDT [facility] Urine Urine specimen obtained by clean catch procedure / Unknown Collection / Unknown 10/28/2024 12:09 AM EDT 10/28/2024 1:00 AM EDT Narrative [facility] - 10/28/2024 1:18 AM EDT In absence of clinical symptoms, the presence of pyuria, bacteria, and/or nitrites on the urinalysis result does not correlate with infection. Gal Weienr PA-C URINE ORDERABLES Fin al Result Performing Organization Address City/[facility]/ZIP Co de Phone Number [facility]
[address] [place] [address], * Magnesium (10/27/2024 11:54 PM EDT) Magnesium 2.2 1.6 - 2.4 mg/dL 10/28/2024 12:35 AM EDT [facility] Blood Venipuncture / Unknown 10/27/2024 11:54 PM EDT 10/28/2024 12:04 AM EDT Gal Weiner PA-C LAB BLOOD ORDERABLES Final Result [facility]
[address] [place] [address], * (ABNORMAL) CBC Auto Differential (10/27/2024 11:54 PM EDT) WBC 5.07 3.40 - 10.80 10*3/mm3 10/28/2024 12:10 AM [facility] RBC 5.20 4.14 - 5.80 10*6/mm3 10/28/2024 12:10 AM [facility] Hemoglobin 14.6 13.0 - 17.7 g/dL 10/28/2024 12:10 AM [facility] Hematocrit 41.5 37.5 - 51.0 % 10/28/2024 12:10 AM [facility] MCV 79.8 79.0 - 97.0 fL 10/28/2024 12:10 AM [facility] MCH 28.1 26.6 - 33.0 pg 10/28/2024 12:10 AM [facility] MCHC 35.2 31.5 - 35.7 g/dL 10/28/2024 12:10 AM [facility] RDW 15.6(H) 12.3 - 15.4 % 10/28/2024 12:10 AM [facility] RDW-SD 44.8 37.0 - 54.0 fl 10/28/2024 12:10 AM [facility] MPV 10.3 6.0 - 12.0 fL 10/28/2024 12:10 AM [facility] Platelets 161 140 - 450 10*3/mm3 10/28/2024 12:10 AM [facility] Neutrophil % 33.3(L) 42.7 - 76.0 % 10/28/2024 12:10 AM [facility] Lymphocyte % 43.6 19.6 - 45.3 % 10/28/2024 12:10 AM [facility] Monocyte % 17.4(H) 5.0 - 12.0 % 10/28/2024 12:10 AM [facility] Eosinophil % 4.3 0.3 - 6.2 % 10/28/2024 12:10 AM [facility] Basophil % 1.0 0.0 - 1.5 % 10/28/2024 12:10 AM [facility] Immature Grans % 0.4 0.0 - 0.5 % 10/28/2024 12:10 AM EDT [facility] Neutrophils, Absolute 1.69(L) 1.70 - 7.00 10*3/mm3 10/28/2024 12:10 AM EDT [facility] Lymphocytes, Absolute 2.21 0.70 - 3.10 10*3/mm3 10/28/2024 12:10 AM EDT [facility] Monocytes, Absolute 0.88 0.10 - 0.90 10*3/mm3 10/28/2024 12:10 AM EDT [facility] Eosinophils, Absolute 0.22 0.00 - 0.40 10*3/mm3 10/28/2024 12:10 AM EDT [facility] Basophils, Absolute 0.05 0.00 - 0.20 10*3/mm3 10/28/2024 12:10 AM EDT [facility] Immature Grans, Absolute 0.02 0.00 - 0.05 10*3/mm3 10/28/2024 12:10 AM EDT [facility] nRBC 0.0 0.0 - 0.2 /100 WBC 10/28/2024 12:10 AM T [facility] Blood Venipuncture / Unknown 10/27/2024 11:54 PM EDT 10/28/2024 12:08 AM EDT Gal Weiner PA-C LAB BLOOD ORDERABLES Final Result [facility]
[address] [place] [address], * Lactic Acid, Plasma (10/27/2024 11:54 PM EDT) Lactate 1.3 0.5 - 2.0 mmol/L 10/28/2024 12:32 AM EDT [facility] Comment:Falsely depressed re sults may occur on samples drawn from patients receiving N-Acetylcysteine (NAC) or Metamizole. Blood Venipuncture / Unknown 10/27/2024 11:54 PM EDT 10/28/2024 12:04 AM EDT Gal Weiner PA-C LAB BLOOD ORDERABLES Final Result [facility]
[address] [place] [address], * (ABNORMAL) Comprehensive Metabolic Panel (10/27/2024 11:54 PM EDT) Glucose 80 65 - 99 mg/dL 10/28/2024 12:35 AM EDT [facility] BUN 21.7 8.0 - 23.0 mg/dL 10/28/2024 12:35 AM EDT [facility] Creatinine 1.08 0.76 - 1.27 mg/dL 10/28/2024 12:35 AM EDT [facility] Sodium 137 136 - 145 mmol/L 10/28/2024 12:35 AM EDT [facility] Potassium 4.1 3.5 - 5.2 mmol/L 10/28/2024 12:35 AM EDT [facility] Chloride 103 98 - 107 mmol/L 10/28/2024 12:35 AM EDT [facility] CO2 19.8(L) 22.0 - 29.0 mmol/L 10/28/2024 12:35 AM EDT [facility] Calcium 9.4 8.6 - 10.5 mg/dL 10/28/2024 12:35 AM EDT [facility] Total Protein 7.5 6.0 - 8.5 g/dL 10/28/2024 12:35 AM EDT [facility] Albumin 4.3 3.5 - 5.2 g/dL 10/28/2024 12:35 AM EDT [facility] ALT (SGPT) 23 1 - 41 U/L 10/28/2024 12:35 AM EDT [facility] AST (SGOT) 29 1 - 40 U/L 10/28/2024 12:35 AM T [facility] Alkaline Phosphatase 71 39 - 117 U/L 10/28/2024 12:35 AM T [facility] Total Bilirubin 0.4 0.0 - 1.2 mg/dL 10/28/2024 12:35 AM EDT [facility] Globulin 3.2 gm/dL 10/28/2024 12:35 AM T [facility] Comment:Calculated Result A/G Ratio 1.3 g/dL 10/28/2024 12:35 AM T [facility] BUN/Creatinine Ratio 20.1 7.0 - 25.0 10/28/2024 12:35 AM T [facility] Anion Gap 14.2 5.0 - 15.0 mmol/L 10/28/2024 12:35 AM T [facility] eGFR 65.6 >60.0 mL/min/1.7 3 10/28/2024 12:35 AM T [facility] Blood Venipuncture / Unknown 10/27/2024 11:54 PM EDT 10/28/2024 12:04 AM EDT [facility] - 10/28/2024 12:35 AM EDT [...] Weiner PA-C LAB BLOOD ORDERABLES Final Result [facility]
[address] [place] [address], * MRI Brain Without Contrast (10/27/2024 7:22 PM EDT) Anatomical Region Laterality Modality Head, Neck N/A Magnetic Resonan ce 10/27/2024 10:1 5 PM EDT Impressions 10/27/2024 10:17 PM EDT Impression: Advanced chronic and age-related changes are noted as above. There is otherwise no evidence of acute infarct, hemorrhage, mass or mass effect. Electronically Signed: Saulo Romo MD 10/27/2024 10:17 PM EDT Workstation ID: [id number] 10/27/2024 10:17 PM EDT MRI BRAIN WO [...] MD 10/27/2024 10:17 PM EDT Workstation ID: [id number] Lamont Hernandez PA-C IMG MRI ORDERABLES Final Res ult * POC Glucose Once (10/27/2024 5:38 PM EDT) Glucose 117 70 - 130 mg/dL 10/27/2024 5:39 PM EDT [facility] Blood 10/27/2024 5:38 PM EDT 10/27/2024 5:39 PM EDT Saeed Monique MD POINT OF CARE TEST ORDERABLES Final Result [facility]
[address] [place] [address], * Fentanyl, Urine - Urine, Clean Catch (10/27/2024 3:18 PM EDT) Fentanyl, Urine Negative Negative 10/27/2024 4:39 PM EDT [facility] Urine Urine specimen obtained by clean catch procedure / Unknown Collection / Unknown 10/27/2024 3:18 PM EDT 10/27/2024 3:27 PM EDT Narrative [facility] - 10/27/2024 4:39 PM EDT Negative [...] Saeed Monique MD URINE ORDERABLES Final Result [facility]
[address] [place] [address], * Urine Drug Screen - Urine, Clean Catch (10/27/2024 3:18 PM EDT) [facility] THC, Screen, Urine Negative Negative 2024 4:17 PM EDT [facility] Phencyclidine (PCP), Urine Negative Negative 10/27/2024 4:17 PM EDT [facility] Cocaine Screen, Urine Negative Negative 10/27/2024 4:17 PM EDT [facility] Methamphetamine, Ur Negative Negative 10/27 4:17 PM EDT [facility] Opiate Screen Negative Negative 10/27/2024 4:17 PM EDT [facility] Amphetamine Screen, Urine Negative Negative 10/27/2024 4:17 PM EDT [facility] Benzodiazepine Screen, Urine Negative Negative 10/27/2024 4:17 PM EDT [facility] Tricyclic Antidepressants Screen Negative Negative 10/27/2024 4:17 PM EDT [facility] Methadone Screen, Urine Negative Negative 10/27/2024 4:17 PM EDT [facility] Barbiturates Screen, Urine Negative Negative 10/27/2024 4:17 PM EDT [facility] Oxycodone Screen, Urine Negative Negative 10/27/2024 4:17 PM EDT [facility] Buprenorphine, Screen, Urine Negative Negative 10/27/2024 4:17 PM EDT [facility] Urine Urine specimen obtained by clean catch procedure / Unknown Collection / Unknown 10/27/2024 3:18 PM EDT 10/27/2024 3:27 PM EDT [facility] - 10/27/2024 4:17 PM EDT [...] Saeed Monique MD URINE ORDERABLES Final Result [facility]
[address] [place] [address], * EEG AWAKE OR DROWSY PORTABLE (10/27/2024 [...] Epilepsy. Therefore, Clinical correlation is recommended. Roxy PembertonNjJeremypayamcarson CLAUDIA NEUROLOGY ORDERABLES Fi nal Result NEUROLOGY * POC Glucose Once (10/27/2024 11:15 AM EDT) Glucose 82 70 - 130 mg/dL 10/27/2024 11:16 AM EDT [facility] Blood 10/27/2024 11:1 5 AM EDT 10/27/2024 11:16 AM EDT Saeed Monique MD POINT OF CARE TEST ORDERABLES Final Result Performing Organization Address [facility] Co de Phone Number [facility]
[address] [place] [address], * Lipid Panel (10/27/2024 9:46 AM EDT) Total Cholesterol 138 0 - 200 mg/dL 10/27/2024 11:15 AM EDT [facility] Triglycerides 42 0 - 150 mg/dL 10/27/2024 11:15 AM EDT [facility] HDL Cholesterol 56 40 - 60 mg/dL 10/27/2024 11:15 AM EDT [facility] LDL Cholesterol 72 0 - 100 mg/dL 10/27/2024 11:15 AM EDT [facility] VLDL Cholesterol 10 5 - 40 mg/dL 10/27/2024 11:15 AM EDT [facility] LDL/HDL Ratio 1.31 10/27/2024 11:15 AM EDT [facility] Blood Venipuncture / Unknown 10/27/2024 9:46 AM EDT 10/27/2024 10:39 AM EDT Narrative [facility] - 10/27/2024 11:15 AM EDT Cholesterol [...] ORDERABLES Final R esult Performing Organization Address City/[facility] Co de Phone Number [facility]
[address] [place] [address], * Hemoglobin A1c (10/27/2024 9:46 AM EDT) Hemoglobin A1C 5.33 4.80 - 5.60 % 10/27/2024 12:28 PM EDT [facility] Blood Venipuncture / Unknown 10/27/2024 9:46 AM EDT 10/27/2024 10:40 AM EDT Narrative [facility] [facility] - 10/27/2024 12:28 PM EDT Hemoglobin A1C Ranges: Increased Risk for Diabetes 5.7% to 6.4% Diabetes >= 6.5% Diabetic Goal < 7.0% us Lamont Hernandez PA-C LAB BLOOD ORDERABLES Final R esult Performing Organization Address City/[facility]/ZIP Co de Phone Number [facility]
[address] [place] [address], * POC Glucose Once (10/27/2024 1:03 AM EDT) Glucose 97 70 - 130 mg/dL 10/27/2024 1:03 AM EDT [facility] Blood 10/27/2024 1:03 AM EDT 10/27/2024 1:03 AM EDT us Thien Becker MD POINT OF CARE TEST ORDERABLES F inal Result Performing Organization Address [facility] Co de Phone Number [facility]
[address] [place] [address], * Lactic Acid, Plasma (10/26/2024 11:21 PM EDT) Lactate 1.0 0.5 - 2.0 mmol/L 10/27/2024 12:03 AM EDT [facility] Comment:Falsely depressed re sults may occur on samples drawn from patients receiving N-Acetylcysteine (NAC) or Metamizole. Blood Venipuncture / Unknown 10/26/2024 11:21 PM EDT 10/26/2024 11:34 PM EDT us Roxy Jimenez APRN LAB BLOOD ORDERABLES Fi nal Result Performing Organization Address [facility] de Phone Number [facility]
[address] [place] [address], * (ABNORMAL) CK (10/26/2024 11:21 PM EDT) Creatine Kinase 245(H) 20 - 200 U/L 10/27/2024 12:01 AM EDT [facility] Blood Venipuncture / Unknown 10/26/2024 11:21 PM EDT 10/26/2024 11:34 PM EDT us May Mary Katem-Abisaiafa DENTAL LAB TECHNICIAN LAB BLOOD ORDERABLES Fi nal Result Performing Organization Address City/[facility] Co de Phone Number [facility]
[address] [place] [address], [place] [phone] * CT Outside Head (10/26/2024 12:10 AM [...] Region Laterality Modality Radiographic Guillermina ging us [facility] Onbase IMG DIAGNOSTIC IMAGING ORDERA BLES Final Result documented in this encounter Visit Diagnoses Not on filedocumented in this encounter Admitting Diagnoses Diagnosis Stroke-like symptoms documented in this encounter Administered Medications Inactive Administered Medications - up to 3 most recent administrations Medication Order MAR Action Action Date Dose Rate Site aspirin chewable tablet 81 mg 81 mg, Oral, Daily, First dose on Tue10/26/24 at 2000, If patient fails dysphagia, KS option MUST be given. Do not exceed [...] Tue10/26/24 at 2000, If patient fails dysphagia, KS option MUST be given. Do not exceed [...] Given 11/01/2024 8:10 AM EDT 6.25 mg ipratropium-albuterol (DUO-NEB) nebulizer solution 3 mL 3 mL, Nebulization, Every 6 Hours PRN, Shortness of Air, Starting on Tue10/26/24 at 1924, Include Respiratory Treatment Education losartan (COZAAR) tablet 25 mg 25 mg, [...] tablet 40 mg 40 mg, Oral, Every Crusher Supervisor, First dose on Nataly 11/01/24 at 0600, Do not crush or chew the capsules or tablets. The drug may not work as designed if the capsule or tablet is crushed or chewed. Swallow whole. Swallow whole; do not crush, split, or chew. Given 11/02/2024 5:58 AM EDT 40 mg Given 11/01/2024 6:02 AM EDT 40 mg sodium chloride [...] Tue10/26/24 at 2000, If patient fails dysphagia, KS option MUST be given. Do not exceed [...] RN) 0810 (Given - Provider: Jillian Kiser, AVILA) 1300 (Given - Provider: Ronnie Carter RN) aspirin suppository 300 mg(Linked Group 1) 300 mg, Rectal, Daily, First dose on Tue10/26/24 at 2000, If patient fails dysphagia, KS option MUST be given. Do not exceed [...] grapefruit juice. 2205 (Given - Provider: Niru Ariza, AVILA) 2019 (Given - Provider: Amita Decker, AVILA) carvedilol (COREG) tablet 6.25 mg 6.25 mg, [...] RN) 0810 (Given - Provider: Jillian Kiser RN)1759 (Given - Provider: Jillian Kiser, RN) [...] tablet 40 mg 40 mg, Oral, Every Crusher Supervisor, First dose on Tue11/01/24 at 0600, Do not crush or chew the capsules or tablets. The drug may not work as designed if the capsule or tablet is crushed or chewed. Swallow whole. Swallow whole; do not crush, split, or chew. 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 Do not exceed [...] Tue10/26/24 at 1999, If patient fails dysphagia, KS option MUST be given. Do not exceed 4 grams of aspirin in a 24 hr period. If given for pain, use the following pain scale: Mild Pain = Pain Score of 1-3, CPOT 1-2 Moderate Pain = Pain Score of 4-6, CPOT 3-4 Severe Pain = Pain Score of 7-10, CPOT 5-8 documented in this encounter Care Teams Taxi Driver Supervisor Relationship Specialty Start Date End Date Provider, [place] [address] PCP - General 10/26/24 documented as of this encounter
--- OUTSIDE RECORDS SUMMARY | 2024-10-29 09:04 | XMS_ITS | Encounter Summary ---
Author Organization [facility] Address [address] [place] [address] Care Team Providers Care Aviation Project Manager Name Role Phone Provider, No Known Primary Care Provider Unavail able Reason for Visit * Auth/Cert Specialty Diagnoses / Procedures Referred By Rosangela t Referred To Contact Diagnoses Cerebrovascular Accident CVA Referral ID Status Reason Start Date Expiration Date Visits Re quested Visits Authorized [id number] 1 1 Encounter Details Date Type Department Care Team (Late st Contact Info) Description 10/29/2024 9:04 AM EDT - 10/29/2024 9:38 AM EDT Surgery [facility] ENDO SUITES [address] [id number] Mian Garcia MD [address] [place] [address] ESOPHAGOGASTRODUODENOSCOPY [60080 (CPT )] Social History Tobacco Use Types Packs/Day Years Used Date Smoking Tobacco: Never Assessed [facility] Utilities Answer Date Recorded In the past 12 months has [employer], gas, oil, or water [employer] threatened to shut off services in your [...] GED or equivalent No 10/29/2024 Preferred Language Togolese 10/29/2024 Sex and Gender Information Value Date [...] original note were not included. [facility] DISCHARGE SUMMARY Patient Name: Jessica [...] MD 10/27/2024 10:17 PM EDT Workstation ID: [id number] EEG Result Date: 10/27/2024 History: 89 y [...] minutes on this discharge activity which included: nwul-yu-hzsxkcksktwvw with the patient, reviewing the data in the system, coordination of the care with the nursing staff as well as consultants, documentation, and entering orders. * Han Martin RN - 10/29/2024 11:16 AM EDT Images from the original note were not included. Jessica Burnham (89 y.o. 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 [phone] Looking for short term rehab Date of 1935 Social Security Number [id number] [place] [address] Worship None Marital Status Single Admission Date 10/26/2024 Admission Type Urgent Admitting Provider Saeed Monique MD Attending Provider Saeed Monique MD Department, Room/Bed [facility] 3F, S318/1 Discharge Date Discharge Disposition Discharge Destination Attending Provider: Saeed Monique MD Allergies: No Known Allergies Isolation: None Infection: None Code Status: Not on file Ht: -- Wt: 68 kg (150 lb) Admission Cmt: None Principal Problem: Stroke-like symptoms [R29.90] Active Insurance as of 10/26/2024 Primary Coverage Payor Plan Insurance Group Employer/Plan Group [facility] Payor Plan Address Payor Plan Phone Number Payor Plan Fax Number Effective Dates [id number] 04/18/2024 - None Entered [facility] [id number] Subscriber Name Subscriber Date Member ID JESSICA BURNHAM 1935 [id number] Emergency 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 Sex: male : 1935 Visit Number: [id number] Admit Date: 10/26/2024 Room number: S318/1 Primary [...] been established. The patient initially presented to [facility] with vitals WNL and imaging showing CT head with changes to right MCA territory right frontal, No right MCA LVO identified. 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 He has been transferred to our [...] to monitor SaO2 Thien Becker MD [facility] 10/26/24 19:21 EDT 1950 Vital Signs (last [...] Monique MD at 10/28/24 1324 [facility] PROGRESS NOTE Patient Name: Jessica [...] MD 10/27/2024 10:17 PM EDT Workstation ID: [id number] EEG Result Date: 10/27/2024 History: 89 y [...] asa 81mg daily and lipitor 40mg qhs. 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 Total chol 138 HDL 56 LDL 72 Dysphagia --OFFICE SERVICES ASSOCIATE states that solids get stuck and then coughs up and recs GI consult for possible EGD HTN --normotension BP now ok per neuro. Restart home norvasc HL Dementia --continue home meds LLE swelling --LLE duplex pending COPD without exacerbation Expected Discharge Location and Transportation: from [place] Expected Discharge Expected Discharge Date: 10/29/2024; Expected [...] is lying down in the bed in [facility]. No family were at the [...] light touch throughout Coordination: no ataxia with pwwsai-bj-jzdc testing Gait/Station: deferred Results Review: I reviewed [...] MD 10/27/2024 10:17 PM EDT Workstation ID: [id number] -CTH wo on 10/26/2024 images were personally [...] 10/27/2024 was 72 Assessment/Plan This is 89-year-old -Australian male, right-handed with multiple vascular risk factor presented to outside hospital for altered mental status. Transferred to our facility for full stroke workup and higher level of care. Patient was not a candidate for IV thrombolytic therapy or mechanical thrombectomy as he was back to his baseline. 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 This is less likely to be vascular in nature -[facility] wo on 10/26/2024 images were personally reviewed [...] protocol -Activity as tolerated, fall risk precautions -PT/OT/OFFICE SERVICES ASSOCIATE evaluation #Essential hypertension, complicated by uncontrolled hypertension [...] Roby Mckenzie MD, Msc, PhD Vascular Neurologist [facility] 1306 Physical Therapy Notes (most recent [...] Treatment physical therapy -MAI Row Name 10/28/24 4329 General Information Patient Profile Reviewed yes -MAI Prior Level of Function -- Per chart facility resident, limited historian. -MAI Existing Precautions/Restrictions fall;other (see comments) cognition -MAI Barriers to Rehab cognitive status;previous functional deficit -MAI Row Name 10/28/24 5332 Living Environment Current Living Arrangements residential facility -MAI Row Name 10/28/24 8625 Safety Issues/Impairments Affecting Functional Mobility Impairments Affecting Function (Mobility) balance;cognition;endurance/activity tolerance;postural/trunk control -MAI User Carmona (r) = Recorded By, (t) = Taken By, (c) = Cosigned By Initials Name Provider Type Jennifer Olvera PT Physical Therapist Mobility Row Name 10/28/24 1528 Bed Mobility Bed Mobility supine-sit -MAI Supine-Sit [place] (Bed Mobility) verbal cues;nonverbal cues (demo/gesture);minimum assist (75% patient effort) -MAI Assistive Device (Bed Mobility) head of bed elevated;bed rails -MAI Comment, (Bed Mobility) Pt utilized bed rail -MAI Row Name 10/28/24 1528 Transfers Comment, (Transfers) Cues for sequencing and hand placement with FWW. -MAI Row Name 10/28/24 1528 Sit-Stand Transfer Sit-Stand [place] (Transfers) minimum assist (75% patient effort) -MAI Assistive Device (Sit-Stand Transfers) walker, front-wheeled -MAI Comment, (Sit-Stand Transfer) VCs -MAI Row Name 10/28/24 1528 Gait/Stairs (Locomotion) [place] Level (Gait) contact guard -MAI Assistive Device [...] PT) sit to supine/supine to sit -MAI [place] Level/Cues Needed (Bed Mobility Goal 1, PT) independent -MAI Time Frame (Bed Mobility Goal 1, PT) intermediate goal (LTG);10 days -MAI [facility] Name 10/28/241534 Transfer Goal 1 (PT) Activity/Assistive Device (Transfer Goal 1, PT) mgz-yj-ugwye/vtaop-ac-dbd -MAI [place] Level/Cues Needed (Transfer Goal 1, PT) modified independence -MAI Time Frame (Transfer Goal 1, PT) short term goal (STG);5 days -MAI [facility] Name 10/28/241534 Gait Training Goal 1 (PT) Activity/Assistive Device (Gait Training Goal 1, PT) gait (walking locomotion);assistive device use-MAI [place] Level (Gait Training Goal 1, PT) modified independence -MAI Distance (Gait Training Goal 1, PT) 100 -MAI Time Frame (Gait Training Goal 1, PT) intermediate goal (LTG);10 days -MAI [facility] Name 10/28/241534 Therapy Assessment/Plan (PT) Planned Therapy [...] Nurse Physical Therapy Education Title: PT OT OFFICE SERVICES ASSOCIATE Therapies (In Progress) Topic: Physical Therapy (In [...] Description Service Date Service Provider Modifiers Qty [id number] HC-PT EVAL MOD COMPLEXITY 5 10/28/2024 Jennifer Hendrickson PT 1 PT G-Codes Outcome Measure Options: AM-PAC 6 Clicks Basic Mobility (PT) AM-PAC 6 Clicks Score (PT): 18 PT Discharge Summary Anticipated Discharge Disposition (PT): [facility] facility Jennifer Hendrickson, ELMA 10/28/2024 1538 Occupational [...] d/c to SNF. Anticipated Discharge Disposition (OT): [facility] facility 1545 Speech Language Pathology Notes (most recent note) Sissy Lopez MS CCC-OFFICE SERVICES ASSOCIATE at 10/27/24 1447 Goal Outcome Evaluation: Plan of Care Reviewed With: patient Anticipated Discharge Disposition (OFFICE SERVICES ASSOCIATE): [facility] facility OFFICE SERVICES ASSOCIATE Diagnosis: mild, cognitive-linguistic disorder (10/27/24 1300) OFFICE SERVICES ASSOCIATE Swallowing Diagnosis: functional oral phase, R/O pharyngeal [...] Lopez MD - 11/02/2024 10:17 AM EDT [facility] Cardiology Inpatient Progress Note Chief Complaint/Reason for [...] been in atrial fibrillation since presentation to [facility] - GDMT: carvedilol, added losartan with elevated BP - asymptomatic, euvolemic Anticipate d/c home today. Can follow-up in 2 months. Vu Lopez MD 11/02/2024 10:17 EDT * Milka Leblanc APRN - 11/01/2024 12:40 PM EDT Images from the original note were not included. [facility] PROGRESS NOTE Patient Name: Jessica [...] with more conservative management at thistime. Dysphagia --OFFICE SERVICES ASSOCIATE states that solids get stuck and then [...] Lopez MD - 11/01/2024 10:09 AM EDT [facility] Cardiology Inpatient Progress Note Chief Complaint/Reason for [...] been in atrial fibrillation since presentation to [facility] - GDMT: carvedilol, add losartan with elevated BP - asymptomatic, euvolemic Vu Lopez MD 11/01/2024 10:09 EDT * Clark Lopez MD - 10/31/2024 4:49 PM EDT [facility] Cardiology Inpatient Progress Note Chief Complaint/Reason for [...] MD 10/31/2024 16:50 EDT * Milka Leblanc, SUPERVISOR ALUMINUM BOAT ASSEMBLY - 10/31/2024 11:11 AM EDT Images from the original note were not included. [facility] PROGRESS NOTE Patient Name: Jessica [...] asa 81mg daily and lipitor 40mg qhs. 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 Dysphagia --OFFICE SERVICES ASSOCIATE states that solids get stuck and then [...] of [place] Pref[place] if not wants local SNF, but [...] original note were not included. [facility] PROGRESS NOTE Patient Name: Jessica [...] asa 81mg daily and lipitor 40mg qhs. 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 Dysphagia --OFFICE SERVICES ASSOCIATE states that solids get stuck and then [...] of kin [place] Pref[place] or if not wants local SNF. Updated CM 10/29. Daily Care Communication Due to current limited visitation policies, an attempt will be made daily to update patient's identified best nulwf-su-zwnoskn(s) Contact: Saranya Carter Relation: sherita Time of communication: 1350 Notes (if applicable): Attempted to call patient's daughter/next of kin to update on care today andalso to clarify CODE STATUS as it is not on file. She did not answer. Expected Discharge Location and Transportation: [place] ([facility] [place] [facility]) or somewhere local. Expected Discharge Expected Discharge Date: 10/31/2024; Expected Discharge Time: VTE Prophylaxis: Mechanical VTE prophylaxis orders are present. AM-PAC 6 Clicks Score (PT): 17 (10/30/24 1124) CODE STATUS: There are no questions and answers to display. Che Kiser, SUPERVISOR ALUMINUM BOAT ASSEMBLY 07/15/25 * Michell Carroll, SUPERVISOR ALUMINUM BOAT ASSEMBLY - 10/30/2024 8:19 AM EDT [facility] Cardiology Inpatient Progress Note Chief Complaint/Reason for [...] original note were not included. [facility] PROGRESS NOTE Patient Name: Jessica [...] MD 10/27/2024 10:17 PM EDT Workstation ID: [id number] Results for orders placed during the hospital [...] asa 81mg daily and lipitor 40mg qhs. 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 Da wants SNF. Prefers [place] or if not wants local SNF. Updated CM. Daily Care Communication Due to current limited visitation policies, an attempt will be made daily to update patient's identified best rnomu-po-wylttqq(s) Contact: Saranya Carter Relation: sherita Time of communication: 1330 Notes (if applicable): Spoke with patient's daughter/next of kin via phone. Updated on results of EGD. Discussed past medical history as patient is a [place] patient with no history on file here. Explained patient in rate controlled A-fib and new CHF based on echo. History of these prior note per daughter. Does she feels patient would not be a good candidate for anticoagulation due to age and dementiawith falls. Agreeable to aspirin if indicated. For patient to transfer at discharge to a [place] rehab center if possible. Expected Discharge Location and Transportation: [place] ( [facility] [place] [facility]) or somewhere local. Expected Discharge Expected Discharge Date: 10/29/2024; Expected Discharge Time: VTE Prophylaxis: Mechanical VTE prophylaxis orders are present. AM-PAC 6 Clicks Score (PT): 16 (10/29/24 1400) CODE STATUS: There are no questions and answers to display. Che Kiser APRN 10/29/24 * Saeed Monique MD - 10/28/2024 1:24 PM EDT Images from the original note were not included. [facility] PROGRESS NOTE Patient Name: Jessica [...] MD 10/27/2024 10:17 PM EDT Workstation ID: [id number] EEG Result Date: 10/27/2024 History: 89 y [...] asa 81mg daily and lipitor 40mg qhs. 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 Total chol 138 HDL 56 LDL 72 Dysphagia --OFFICE SERVICES ASSOCIATE states that solids get stuck and then [...] light touch throughout Coordination: no ataxia with xjrmri-zk-risn testing Gait/Station: deferred Results Review: I reviewed [...] MD 10/27/2024 10:17 PM EDT Workstation ID: [id number] -CTH wo on 10/26/2024 images were personally [...] 10/27/2024 was 72 Assessment/Plan This is 89-year-old -Australian male, right-handed with multiple vascular risk factor presented to outside hospital for altered mental status. Transferred to our facility for full stroke workup and higher level of care. Patient was not a candidate for IV thrombolytic therapy or mechanical thrombectomy as he was back to his baseline. Antiplatelet BOTTLE SELECTOR: Aspirin 325 mg Anticoagulant BOTTLE SELECTOR: None #Acute encephalopathy in the setting of [...] protocol -Activity as tolerated, fall risk precautions -PT/OT/OFFICE SERVICES ASSOCIATE evaluation #Essential hypertension, complicated by uncontrolled hypertension [...] Roby Mckenzie MD, Msc, PhD Vascular Neurologist [facility] * Roby Mckenzie MD - 10/27/2024 [...] x 2 (stated that he is in [place] at [facility]), interactive, ableto follow commands Speech: Intact Articulation CN 2-12: II - PERRLA III, IV, - EOMI VII -no gross facial asymmetry VIII - Auditory acuity intact XII - Tongue protrudes midline Motor: Patient is able to move all 4 extremities against gravity with no drift appreciated Sensory: intact light touch throughout Coordination: no ataxia with apqiaz-vc-snwg testing Gait/Station: deferred Results Review: I reviewed [...] 10/27/2024 was 72 Assessment/Plan This is 89-year-old -Australian male, right-handed with multiple vascular risk factor presented to outside hospital for altered mental status. Transferred to our facility for full stroke workup and higher level of care. Patient was not a candidate for IV thrombolytic therapy or mechanical thrombectomy as he was back to his baseline. Antiplatelet BOTTLE SELECTOR: Aspirin 325 mg Anticoagulant BOTTLE SELECTOR: None #Acute encephalopathy in the setting of [...] protocol -Activity as tolerated, fall risk precautions -PT/OT/OFFICE SERVICES ASSOCIATE evaluation #Essential hypertension, complicated by uncontrolled hypertension [...] Roby Mckenzie MD, Msc, PhD Vascular Neurologist [facility] * Saeed Monique MD - 10/27/2024 2:02 PM EDT Images from the original note were not included. [facility] PROGRESS NOTE Patient Name: Jessica [...] chol 138 HDL 56 LDL 72 Dysphagia --OFFICE SERVICES ASSOCIATE states that solids get stuck and then coughs up and recs GI consult for possible EGD HTN --permissive HTN until ok per neuro HL Dementia --continue home meds LLE swelling --LLE duplex pending COPD without exacerbation Expected Discharge Location and Transportation: from [place] Expected Discharge Expected Discharge Date: 10/29/2024; Expected [...] original note were not included. [facility] PHYSICAL Patient Identification: Name: Jessica Burnham Age: 89 y.o. Sex: male : 1935 Visit Number: [id number] Admit Date: 10/26/2024 Room number: S318/1 Primary [...] been established. The patient initially presented to [facility] with vitals WNL and imaging showing CT head with changes to right MCA territory right frontal, No right MCA LVO identified. 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 He has been transferred to our [...] -Continue to monitor SaO2 Thien Becker MD [facility] 10/26/24 19:21 EDT documented in this encounter Consult Notes * Clark Lopez MD - 10/29/2024 2:52 PM EDTAssociated Order(s): IP CONSULT TO CARDIOLOGY [facility] Cardiology Initial Consult Note Patient Identification: Jessica Burnham 89 y.o. male 1935 [id number] Date of Consultation: 10/29/24 Reason for Consultation: atrial fibrillation, decreased EF PCP: Provider, No Known Primary hand thermal cutter: none Referring physician: Saeed Monique MD History of Present Illness: Jessica Burnham is a 89 y.o. with a history of HTN, MCI, BPH, GERD, CKD who was transferred to [facility] from [facility] due to concern for stroke. Per [...] records are available for review through the [place] system which do not show these diagnoses [...] 8:26 AM EDTAssociated Order(s): IP CONSULT TO ASSISTANT IMPORT MANAGER Diabetes Education Patient Name: Jessica Burnham [...] 2:51 PM EDTAssociated Order(s): Inpatient Gastroenterology Consult [facility]: Inpatient Gastroenterology Consult Inpatient Gastroenterology Consult Consult [...] MD 10/27/2024 10:17 PM EDT Workstation ID: [id number] EEG Result Date: 10/27/2024 History: 89 y [...] PATIENT SEEN: 1902 EST Handedness: Right Race: -Australian Chief Complaint/Reason for Consultation: Was found altered HPI: This is Mr. Jessica Armstrong 89-year-old -Australian male, right- handed, with significant health diagnosis for dementia, former smoker and alcohol drinker, COPD, hypertension, hyperlipidemia, sciatica who presented to our facility as a direct admit from [facility] for stroke workup and higher [...] Plantar: downgoing Left Plantar: downgoing Coordination Right: Ucvjkg-pi-vqvy normal.Left: Rumwbe-xg-rkvz normal. Gait Unable to assess. Physical Exam [...] sodium chloride Functional Status Prior to Current Stroke/[place] Score: 1-2 NIH Stroke Scale Time: 21:52 [...] Atherosclerosis intra extracranial Assessment/Plan: This is 89-year-old -Australian male, right-handed with multiple vascular risk factor presented to outside hospital for altered mental status. Transferred to our facility for full stroke workup and higher level of care. Patient was not a candidate for IV thrombolytic therapy or mechanical thrombectomy as he was back to his baseline. Antiplatelet BOTTLE SELECTOR: Aspirin 325 mg Anticoagulant BOTTLE SELECTOR: None Transient alteration of mental status in [...] pending -Activity as tolerated, fall risk precautions -PT/OT/OFFICE SERVICES ASSOCIATE evaluation - Neurology stroke will continue to [...] morning, its night time. * Kristal Benavidez, CF-OFFICE SERVICES ASSOCIATE - 11/01/2024 4:02 PM EDT Goal Outcome Evaluation: Plan of Care Reviewed With: patient, child Anticipated Discharge Disposition (OFFICE SERVICES ASSOCIATE): [facility] facility Treatment Assessment (OFFICE SERVICES ASSOCIATE): continued, toleration of diet, cognitive-linguistic disorder (11/01/24 1540) Plan for Continued Treatment (OFFICE SERVICES ASSOCIATE): continue treatment per plan of care (11/01/24 [...] able per POC. Anticipated Discharge Disposition (PT): [facility] facility * Sissy Lopez MS [facility]-OFFICE SERVICES ASSOCIATE - 10/30/2024 4:07 PM EDT Goal Outcome Evaluation: Plan of Care Reviewed With: patient Anticipated Discharge Disposition (OFFICE SERVICES ASSOCIATE): usp facility OFFICE SERVICES ASSOCIATE Diagnosis: mild, cognitive-linguistic disorder (10/30/24 1430) OFFICE SERVICES ASSOCIATE Swallowing Diagnosis: functional oral phase, R/O pharyngeal dysphagia, suspected esophageal dysphagia (10/30/24 1430) Treatment Assessment (OFFICE SERVICES ASSOCIATE): continued, mild, cognitive-linguistic disorder (10/30/24 1430) Treatment Assessment Comments (OFFICE SERVICES ASSOCIATE): Patient tolerated trials of soft solids w/o discomfort or s/s of aspiration. EGD completed on 10/29/24 with dilation completed. Diet upgraded this date to soft chopped and thin liquids. Patient continues with mild cognitive linguistic impairment. (10/30/24 143) Plan for Continued Treatment (OFFICE SERVICES ASSOCIATE): continue treatment per plan of care (10/30/24 143) Electronically signed by Sissy Lopez MS [facility]-OFFICE SERVICES ASSOCIATE at 10/30/2024 4:07 PM EDT * Yvonne Felder PT - 10/30/2024 11:14 [...] and endurance deficits. Anticipated Discharge Disposition (PT): [facility] facility * Jaylin Concepcion, OT - 10/30/2024 [...] per current POC. Anticipated Discharge Disposition (OT): [facility] facility * Edil Franklin PT Student - [...] upon D/C. Anticipated Discharge Disposition (PT): (P) [facility] facility Cosigned by Yvonne Felder PT at [...] d/c to SNF. Anticipated Discharge Disposition (OT): [facility] facility * Jennifer Hendrickson PT - 10/28/2024 [...] SNF upon DC. Anticipated Discharge Disposition (PT): [facility] facility, home with 08/11 care * Izabel [...] and BLE drift. Transferred from [facility]. Today 10/27 pt is A&O x3 with [...] and BLE drift. Transferred from [facility]. Today 10/27 pt is A&O x3 with some mild confusion to situation. Cooperative today. SLPcleared pt for pureed diet w/ thin liquids. Tolerating diet so fare. MRI screening sheet in chart, MRI pending. EEG completed. UA drug screen-negative. * Sissy Lopez MS [facility]-OFFICE SERVICES ASSOCIATE - 10/27/2024 2:47 PM EDT Goal Outcome Evaluation: Plan of Care Reviewed With: patient Anticipated Discharge Disposition (OFFICE SERVICES ASSOCIATE): [facility]p facility OFFICE SERVICES ASSOCIATE Diagnosis: mild, cognitive-linguistic disorder (07/12/25 1300) OFFICE SERVICES ASSOCIATE Swallowing Diagnosis: functional oral phase, R/O pharyngeal [...] Therapy Treatment Note - Kristal Benavidez MS CF-OFFICE SERVICES ASSOCIATE - 11/01/2024 4:04 PM EDT Images from the original note were not included. Acute Care - Speech Language Pathology Swallow Treatment Note [facility] Patient Name: Jessica Burnham : 1935 Today's [...] Procedure: ESOPHAGOGASTRODUODENOSCOPY; Surgeon: Mian Garcia MD; Location: [facility]; Service: Gastroenterology; Laterality: N/A; OFFICE SERVICES ASSOCIATE Recommendation and Plan OFFICE SERVICES ASSOCIATE Diet Recommendation: soft to chew textures, chopped, thin liquids (11/01/241539) Recommended Precautions and Strategies: upright posture during/after eating, small bites of food and sips of liquid, reflux precautions (11/01/241539) OFFICE SERVICES ASSOCIATE Rec. for Method of Medication Administration: meds whole, meds crushed, with puree, as tolerated (11/01/241539) Monitor for Signs of Aspiration: notify OFFICE SERVICES ASSOCIATE if any concerns (11/01/241539) Anticipated Discharge Disposition (OFFICE SERVICES ASSOCIATE): home with / care (11/01/241539) Therapy Frequency (Swallow): 3 days per week (11/01/241539) Predicted Duration Therapy Intervention (Days): 1 week (11/01/241539) Oral Care Recommendations: Oral Care BID/PRN, Toothbrush (11/01/241539) Daily Summary of Progress (OFFICE SERVICES ASSOCIATE): progress toward functional goals as expected (11/01/241539) Treatment Assessment (OFFICE SERVICES ASSOCIATE): continued, toleration of diet, cognitive-linguistic disorder (11/01/241539) Plan for Continued Treatment (OFFICE SERVICES ASSOCIATE): continue treatment per plan of care (11/01/241539) SWALLOW EVALUATION (Last 72 Hours) OFFICE SERVICES ASSOCIATE Adult Swallow Evaluation Row Name 11/01/24 1540 10/30/24 1430 OFFICE SERVICES ASSOCIATE Evaluation Clinical Impression OFFICE SERVICES ASSOCIATE Swallowing Diagnosis -- functional oral phase;R/O pharyngeal dysphagia;suspected esophageal dysphagia -CH Functional Impact -- risk of aspiration/pneumonia;risk of malnutrition -CH Rehab Potential/Prognosis, Swallowing -- good, to achieve stated therapy goals -CH Swallow Criteria for Skilled Therapeutic Interventions Met -- demonstrates skilled criteria -CH OFFICE SERVICES ASSOCIATE Treatment Clinical Impressions Treatment Assessment Comments (OFFICE SERVICES ASSOCIATE) -- Patient tolerated trials of soft solids w/o discomfort or s/s of aspiration. EGD completed on 10/29/24 with dilation completed. Diet upgraded this date to soft chopped and thin liquids. Patient continues with mild cognitive linguistic impairment. - Recommendations Therapy Frequency (Swallow) 3 days per week - PRN;5 days per week - OFFICE SERVICES ASSOCIATE Diet Recommendation soft to chew textures;chopped;thin liquids [...] Care BID/PRN;Toothbrush - Oral Care BID/PRN;Toothbrush - OFFICE SERVICES ASSOCIATE Rec. for Method of Medication Administration meds whole;meds crushed;with puree;as tolerated - meds whole;meds crushed;with puree;as tolerated - Monitor for Signs of Aspiration notify OFFICE SERVICES ASSOCIATE if any concerns - notify OFFICE SERVICES ASSOCIATE if any concerns - Anticipated Discharge Disposition (OFFICE SERVICES ASSOCIATE) home with 08/11 care - -- User Carmona (r) = Recorded By, (t) = Taken By, (c) = Cosigned By Initials Name Effective Dates Sissy Lopez MS [facility]-OFFICE SERVICES ASSOCIATE 05/07/24 - Kristal Tovar MS CF-OFFICE SERVICES ASSOCIATE 09/20/24 - EDUCATION The patient has been educated in the following areas: Cognitive Impairment Communication Impairment Dysphagia (Swallowing Impairment). OFFICE SERVICES ASSOCIATE GOALS Row Name 11/01/24 1540 10/30/24 1430 (LTG) Patient will demonstrate functional swallow for Diet Texture (Demonstrate functional swallow) soft to chew (chopped) textures - soft to chew (chopped) textures - Liquid viscosity (Demonstrate functional swallow) thin liquids -SM thin liquids - [place] (Demonstrate functional swallow) with minimal cues (75-90% [...] signs/symptoms of aspiration;with adequate oral prep/transit/clearance -CH [place] (Tolerate trials) with minimal cues (75-90% accuracy) [...] cognitive-linguistic skills for return to discharge environment [place] with minimal cues -SM with minimal cues -CH Time frame 1 week -SM 1 week -CH Progress/Outcomes continuing progress toward goal -SM continuing progress toward goal -CH OFFICE SERVICES ASSOCIATE Diagnostic Treatment Patient will participate in further assessment in the following areas clarification of baseline cognitive communication status - clarification of baseline cognitive communication status - Time Frame (Diagnostic) 1 week -SM 1 week -CH Progress/Outcomes (Additional Goal 1, OFFICE SERVICES ASSOCIATE) goal met -SM continuing progress toward goal -CH Comment (Diagnostic) Daughter present in room, attests that pt is at baseline cog fx -SM -- Word Retrieval Skills Goal 1 (OFFICE SERVICES ASSOCIATE) Improve Word Retrieval Skills By Goal 1 (OFFICE SERVICES ASSOCIATE) high frequency;responsive naming task;completing a divergent task;80%;with minimal cues (75-90%) - high frequency;responsive naming task;completing a divergent task;80%;with minimal cues (75-90%) - Time Frame (Word Retrieval Goal 1, OFFICE SERVICES ASSOCIATE) 1 week -SM 1 week -CH Progress (Word Retrieval Skills Goal 1, OFFICE SERVICES ASSOCIATE) -- 80%;with minimal cues (75-90%) -CH Progress/Outcomes (Word Retrieval Goal 1, OFFICE SERVICES ASSOCIATE) goal no longer appropriate - continuing progress toward goal -CH Comment (Word Retrieval Goal 1, OFFICE SERVICES ASSOCIATE) Pt at baseline cog fx -SM -- Orientation Goal 1 (OFFICE SERVICES ASSOCIATE) Improve Orientation Through Goal 1 (OFFICE SERVICES ASSOCIATE) demonstrating orientation to day;demonstrating orientationto month;demonstrating orientation to year;demonstrating orientation to place;demonstrating orientation to disease/impairment;use environmental aids to assist with orientation;80%;with minimal cues (75-90%) -SM demonstrating orientation to day;demonstrating orientation to month;demonstrating orientation to year;demonstrating orientation to place;demonstrating orientation to disease/impairment;useenvironmental aids to assist with orientation;80%;with minimal cues (75-90%) - Time Frame (Orientation Goal 1, OFFICE SERVICES ASSOCIATE) 1 week -SM 1 week -CH Progress (Orientation Goal 1, OFFICE SERVICES ASSOCIATE) 30%;with minimal cues (75-90%) -SM 50%;with minimal cues (75-90%) -CH Progress/Outcomes (Orientation Goal 1, OFFICE SERVICES ASSOCIATE) goal no longer appropriate -SM continuing progress toward goal -CH Comment (Orientation Goal 1, OFFICE SERVICES ASSOCIATE) Oriented to self and place -SM Oriented to self and grossly to place, not to time or situation - Memory Skills Goal 1 (OFFICE SERVICES ASSOCIATE) Improve Memory Skills Through Goal 1 (OFFICE SERVICES ASSOCIATE) recalling related word lists immediately;recall details of the day;90%;with minimal cues (75-90%) -SM recalling related word lists immediately;recall details of the day;90%;with minimal cues (75-90%) - Time Frame (Memory Skills Goal 1, OFFICE SERVICES ASSOCIATE) 1 week -SM 1 week -CH Progress (Memory Skills Goal 1, OFFICE SERVICES ASSOCIATE) 30%;with minimal cues (75-90%) -SM 40%;with minimal cues (75-90%) - Progress/Outcomes (Memory Skills Goal 1, OFFICE SERVICES ASSOCIATE) goal no longer appropriate -SM continuing progress toward goal - Comment (Memory Skills Goal 1, OFFICE SERVICES ASSOCIATE) Could not recall details of day, recalled 2/3 related words immediately - -- User Carmona (r) = Recorded By, (t) = Taken By, (c) = Cosigned By Initials Name Provider Type Sissy Saldana MS CCC-OFFICE SERVICES ASSOCIATE Speech and Language Pathologist Kristal Tovar MS CF-OFFICE SERVICES ASSOCIATE Speech and Language Pathologist Time Calculation: Time Calculation- OFFICE SERVICES ASSOCIATE Row Name 11/01/24 1603 Time Calculation- OFFICE SERVICES ASSOCIATE OFFICE SERVICES ASSOCIATE Start Time 1540 -SM OFFICE SERVICES ASSOCIATE Received On 11/01/24 -SM Untimed Charges 83458-LX Treatment/ST Modification Prosth Aug Alter 27 -SM 62632-RI Treatment Swallow Minutes 10 -SM Total Minutes Untimed Charges Total Minutes 37 -SM Total Minutes 37 -SM User Carmona (r) = Recorded By, (t) = Taken By, (c) = Cosigned By Initials Name Provider Type Kristal Benavidez, CF-OFFICE SERVICES ASSOCIATE Speech and Language Pathologist Therapy Charges for Today Code Description Service Date Service Provider Modifiers Qty 40885538306 HC ST TREATMENT SPEECH 2 11/01/2024 Kristal Benavidez MS CF-OFFICE SERVICES ASSOCIATE GN [address] TREATMENT SWALLOW 1 11/01/2024 Kristal Benavidez MS CF-OFFICE SERVICES ASSOCIATE GN 1 Kristal Benavidez, CF-OFFICE SERVICES ASSOCIATE 11/01/2024 * Case Management/Social Work - Dagmar Matta RN - 11/01/2024 3:22 PM EDT Continued Stay Note [facility] Patient Name: Jessica Burnham Today's Date: 11/01/2024 [...] does not want patient to go to [facility] for rehab. Saranya would like [place] referrals only. Saranya states she will be at the hospital in the am and will notify CM of her choices of facilities at that time. Patient's insurance, [employer], will require a prior authorization for this rehab request. CM following. Final Discharge Disposition Code 03 - [facility] facility (SNF) Discharge Codes No documentation. Expected [...] Procedure: ESOPHAGOGASTRODUODENOSCOPY; Surgeon: Mian Garcia MD; Location: [facility]; Service: Gastroenterology; Laterality: N/A; General Information Row Name 10/31/24 1504 Physical Therapy Time and Intention Document Type therapy note (daily note) -AB Mode of Treatment physical therapy -AB Row Name 10/31/24 7652 General Information Patient Profile Reviewed yes -AB [...] Bed Mobility Bed Mobility supine-sit;sit-supine;scooting/bridging -AB Scooting/Bridging [place] (Bed Mobility) contact guard;1 person assist -AB Supine-Sit [place] (Bed Mobility) contact guard;1 person assist -AB Sit-Supine [place] (Bed Mobility) contact guard;1 person assist -AB Assistive Device (Bed Mobility) head of bed elevated -AB Comment, (Bed Mobility) increased time/effort. -AB Row Name 10/31/24 1505 Transfers Comment, (Transfers) Cues for hand placement and sequencing. -AB Row Name 10/31/24 1505 Sit-Stand Transfer Sit-Stand [place] (Transfers) contact guard;verbal cues;1 person assist -AB Assistive Device (Sit-Stand Transfers) walker, front-wheeled -AB Row Name 10/31/24 1505 Gait/Stairs (Locomotion) [place] Level (Gait) contact guard;1 person assist;verbal cues [...] Therapist Physical Therapy Education Title: PT OT OFFICE SERVICES ASSOCIATE Therapies (In Progress) Topic: Physical Therapy (In [...] PT Received On 10/31/24 -AB Timed Charges 22758 - Gait Training Minutes 10 -AB 41939 - PT Therapeutic Activity Minutes 13 -AB Total Minutes Timed Charges Total Minutes 23 -AB Total Minutes 23 -AB User Carmona (r) = Recorded By, (t) = Taken By, (c) = Cosigned By Initials Name Provider Type AB Razia Jurado, PT Physical Therapist Therapy Charges for Today Code Description Service Date Service Provider Modifiers Qty 78600679262 HC GAIT TRAINING EA 15 MIN 10/31/2024 Razia Jurado, PT GP 1 69820763187 HC PT THERAPEUTIC ACT EA 15 MIN 10/31/2024 Razia Jurado, PT GP 1 PT G-Codes Outcome Measure Options: AM-PAC 6 Clicks Basic Mobility (PT) AM-PAC 6 Clicks Score (PT): 17 AM-PAC 6 Clicks Score (OT): 17 Modified [place] Scale: 3 - Moderate disability. Requiring some help, but able to walk without assistance. PT Discharge Summary Anticipated Discharge Disposition (PT): [facility] facility Razia Jurado PT 10/31/2024 * Therapy Treatment Note - Sissy Lopez MS CCC-OFFICE SERVICES ASSOCIATE - 10/30/2024 4:06 PM EDT Images from the original note were not included. Acute Care - Speech Language Pathology Swallow Treatment Note [facility] Patient Name: Jessica Burnham : 1935 Today's [...] Procedure: ESOPHAGOGASTRODUODENOSCOPY; Surgeon: Mian Garcia MD; Location: [facility]; Service: Gastroenterology; Laterality: N/A; OFFICE SERVICES ASSOCIATE Recommendation and Plan OFFICE SERVICES ASSOCIATE Swallowing Diagnosis: functional oral phase, R/O pharyngeal dysphagia, suspected esophageal dysphagia (10/30/241429) OFFICE SERVICES ASSOCIATE Diet Recommendation: soft to chew textures, chopped, thin liquids (10/30/241429) Recommended Precautions and Strategies: upright posture during/after eating, small bites of food and sips of liquid, reflux precautions (10/30/241429) OFFICE SERVICES ASSOCIATE Rec. for Method of Medication Administration: meds whole, meds crushed, with puree, as tolerated (10/30/241429) Monitor for Signs of Aspiration: notify OFFICE SERVICES ASSOCIATE if any concerns (10/30/241429) Recommended Diagnostics: other (see comments) (diet tolerance) (10/30/241429) Swallow Criteria for Skilled Therapeutic Interventions Met: demonstrates skilled criteria () Anticipated Discharge Disposition (OFFICE SERVICES ASSOCIATE): [facility] facility (10/30/241429) Rehab Potential/Prognosis, Swallowing: good, to achieve stated therapy goals (10/30/241429) Therapy Frequency (Swallow): PRN, 5 days per week (10/30/241429) Predicted Duration Therapy Intervention (Days): 1 week (10/30/241429) Oral Care Recommendations: Oral Care BID/PRN, Toothbrush (10/30/241429) Daily Summary of Progress (OFFICE SERVICES ASSOCIATE): progress toward functional goals as expected (10/30/241429) Treatment Assessment (OFFICE SERVICES ASSOCIATE): continued, mild, cognitive-linguistic disorder (10/30/241429) Treatment Assessment Comments (OFFICE SERVICES ASSOCIATE): Patient tolerated trials of soft solids w/o discomfort or s/s of aspiration. EGD completed on 10/29/24 with dilation completed. Diet upgraded this date to soft chopped and thin liquids. Patient continues with mild cognitive linguistic impairment. (10/30/241429) Plan for Continued Treatment (OFFICE SERVICES ASSOCIATE): continue treatment per plan of care (10/30/241429) SWALLOW EVALUATION (Last 72 Hours) OFFICE SERVICES ASSOCIATE Adult Swallow Evaluation Row Name 10/30/241429 OFFICE SERVICES ASSOCIATE Evaluation Clinical Impression OFFICE SERVICES ASSOCIATE Swallowing Diagnosis functional oral phase;R/O pharyngeal dysphagia;suspected esophageal dysphagia - Functional Impact risk of aspiration/pneumonia;risk of malnutrition - Rehab Potential/Prognosis, Swallowing good, to achieve stated therapy goals - Swallow Criteria for Skilled Therapeutic Interventions Met demonstrates skilled criteria - OFFICE SERVICES ASSOCIATE Treatment Clinical Impressions Treatment Assessment Comments (OFFICE SERVICES ASSOCIATE) Patient tolerated trials of soft solids w/o discomfort or s/s of aspiration. EGD completed on 10/29/24 with dilation completed. Diet upgraded this date to soft chopped and thin liquids. Patient continues with mild cognitive linguistic impairment. - Recommendations Therapy Frequency (Swallow) PRN;5 days per week - OFFICE SERVICES ASSOCIATE Diet Recommendation soft to chew textures;chopped;thin liquids - Recommended Diagnostics other (see comments) diet tolerance - Recommended Precautions and Strategies upright posture during/after eating;small bites of food and sips of liquid;reflux precautions - Oral Care Recommendations Oral Care BID/PRN;Toothbrush - OFFICE SERVICES ASSOCIATE Rec. for Method of Medication Administration meds whole;meds crushed;with puree;as tolerated - Monitor for Signs of Aspiration notify OFFICE SERVICES ASSOCIATE if any concerns - User Carmona (r) = Recorded By, (t) = Taken By, (c) = Cosigned By Initials Name Effective Dates Sissy Lopez MS [facility]-OFFICE SERVICES ASSOCIATE 05/07/24 - EDUCATION The patient has been educated in the following areas: Dysphagia (Swallowing Impairment) Oral Care/Hydration Modified Diet Instruction. OFFICE SERVICES ASSOCIATE GOALS Row Name 07/15/25 1430 (LTG) Patient will demonstrate functional swallow for Diet Texture (Demonstrate functional swallow) soft to chew (chopped) textures -CH Liquid viscosity (Demonstrate functional swallow) thin liquids - [place] (Demonstrate functional swallow) with minimal cues (75-90% [...] signs/symptoms of aspiration;with adequate oral prep/transit/clearance - [place] (Tolerate trials) with minimal cues (75-90% accuracy) - Time Frame (Tolerate trials) 1 week -CH Progress/Outcomes (Tolerate trials) goal met;goal revised this date -CH Comment (Tolerate trials) goal met for pureed, diet upgraded to soft chopped and thin liquids. - Patient will demonstrate functional cognitive-linguistic skills for return to discharge environment [place] with minimal cues - Time frame 1 week -CH Progress/Outcomes continuing progress toward goal -CH OFFICE SERVICES ASSOCIATE Diagnostic Treatment Patient will participate in further assessment in the following areas clarification of baseline cognitive communication status - Time Frame (Diagnostic) 1 week -CH Progress/Outcomes (Additional Goal 1, OFFICE SERVICES ASSOCIATE) continuing progress toward goal -CH Word Retrieval Skills Goal 1 (OFFICE SERVICES ASSOCIATE) Improve Word Retrieval Skills By Goal 1 (OFFICE SERVICES ASSOCIATE) high frequency;responsive naming task;completing a divergent task;80%;with minimal cues (75-90%) -CH Time Frame (Word Retrieval Goal 1, OFFICE SERVICES ASSOCIATE) 1 week -CH Progress (Word Retrieval Skills Goal 1, OFFICE SERVICES ASSOCIATE) 80%;with minimal cues (75-90%) -CH Progress/Outcomes (Word Retrieval Goal 1, OFFICE SERVICES ASSOCIATE) continuing progress toward goal -CH Orientation Goal 1 (OFFICE SERVICES ASSOCIATE) Improve Orientation Through Goal 1 (OFFICE SERVICES ASSOCIATE) demonstrating orientation to day;demonstrating orientationto month;demonstrating orientation to year;demonstrating orientation to place;demonstrating orientation to disease/impairment;use environmental aids to assist with orientation;80%;with minimal cues (75-90%) -CH Time Frame (Orientation Goal 1, OFFICE SERVICES ASSOCIATE) 1 week -CH Progress (Orientation Goal 1, OFFICE SERVICES ASSOCIATE) 50%;with minimal cues (75-90%) -CH Progress/Outcomes (Orientation Goal 1, OFFICE SERVICES ASSOCIATE) continuing progress toward goal -CH Comment (Orientation Goal 1, OFFICE SERVICES ASSOCIATE) Oriented to self and grossly to place, not to time or situation -CH Memory Skills Goal 1 (OFFICE SERVICES ASSOCIATE) Improve Memory Skills Through Goal 1 (OFFICE SERVICES ASSOCIATE) recalling related word lists immediately;recall details of the day;90%;with minimal cues (75-90%) -CH Time Frame (Memory Skills Goal 1, OFFICE SERVICES ASSOCIATE) 1 week -CH Progress (Memory Skills Goal 1, OFFICE SERVICES ASSOCIATE) 40%;with minimal cues (75-90%) -CH Progress/Outcomes (Memory Skills Goal 1, OFFICE SERVICES ASSOCIATE) continuing progress toward goal -CH User Carmona (r) = Recorded By, (t) = Taken By, (c) = Cosigned By Initials Name Provider Type Sissy Saldana MS CCC-OFFICE SERVICES ASSOCIATE Speech and Language Pathologist Time Calculation: Time Calculation- OFFICE SERVICES ASSOCIATE Row Name 10/30/24 1601 Time Calculation- OFFICE SERVICES ASSOCIATE OFFICE SERVICES ASSOCIATE Start Time 1430 - OFFICE SERVICES ASSOCIATE Received On 10/30/24 - Untimed Charges 38183-YW Treatment/ST Modification Prosth Nov 39 -CH 83620-FF Treatment Swallow Minutes 45 -CH Total Minutes Untimed Charges Total Minutes 84 -CH Total Minutes 84 -CH User Carmona (r) = Recorded By, (t) = Taken By, (c) = Cosigned By Initials Name Provider Type Sissy Saldana MS CCC-OFFICE SERVICES ASSOCIATE Speech and Language Pathologist Therapy Charges for Today Code Description Service Date Service Provider Modifiers Qty 92912813892 HC ST TREATMENT SWALLOW 3 10/30/2024 Sissy Lopez MS CCC-OFFICE SERVICES ASSOCIATE GN [address] TREATMENT SPEECH 3 10/30/2024 Sissy Lopez MS CCC-OFFICE SERVICES ASSOCIATE GN 1 Sissy Lopez MS CCC-BARBER 10/30/2024 [...] Procedure: ESOPHAGOGASTRODUODENOSCOPY; Surgeon: Mian Garcia MD; Location: [facility]; Service: Gastroenterology; Laterality: N/A; OFFICE SERVICES ASSOCIATE Recommendation and Plan OFFICE SERVICES ASSOCIATE Diagnosis: mild, cognitive-linguistic disorder (10/30/241429) Monitor for Signs of Aspiration: notify OFFICE SERVICES ASSOCIATE if any concerns (10/30/241429) Swallow Criteria for Skilled Therapeutic Interventions Met: demonstrates skilled criteria () SLC Criteria for Skilled Therapy Interventions Met: yes (10/30/241429) Anticipated Discharge Disposition (OFFICE SERVICES ASSOCIATE): [facility] facility (10/30/241429) Therapy Frequency (Swallow): PRN, 5 days per week (10/30/241429) Therapy Frequency (OFFICE SERVICES ASSOCIATE SLC): 5 days per week (10/30/241429) Predicted Duration Therapy Intervention (Days): 1 week (10/30/241429) Oral Care Recommendations: Oral Care BID/PRN, Toothbrush (10/30/241429) Daily Summary of Progress (OFFICE SERVICES ASSOCIATE): progress toward functional goals as expected (10/30/241429) Treatment Assessment (OFFICE SERVICES ASSOCIATE): continued, mild, cognitive-linguistic disorder (10/30/241429) Treatment Assessment Comments (OFFICE SERVICES ASSOCIATE): Patient tolerated trials of soft solids w/o discomfort or s/s of aspiration. EGD completed on 10/29/24 with dilation completed. Diet upgraded this date to soft chopped and thin liquids. Patient continues with mild cognitive linguistic impairment. (10/30/241429) Plan for Continued Treatment (OFFICE SERVICES ASSOCIATE): continue treatment per plan of care (10/30/241429) OFFICE SERVICES ASSOCIATE EVALUATION (Last 72 Hours) OFFICE SERVICES ASSOCIATE SLC Evaluation Row Name 10/30/241429 Communication Assessment/Intervention [...] Pain Rating 0/10 - no pain - OFFICE SERVICES ASSOCIATE Evaluation Clinical Impressions OFFICE SERVICES ASSOCIATE Diagnosis mild;cognitive-linguistic disorder - Rehab Potential/Prognosis good - SLC Criteria for Skilled Therapy Interventions Met yes -CH OFFICE SERVICES ASSOCIATE Treatment Clinical Impressions Treatment Assessment (OFFICE SERVICES ASSOCIATE) continued;mild;cognitive-linguistic disorder - Daily Summary of Progress (OFFICE SERVICES ASSOCIATE) progress toward functional goals as expected - Plan for Continued Treatment (OFFICE SERVICES ASSOCIATE) continue treatment per plan of care - Care Plan Review evaluation/treatment results reviewed;care plan/treatment goals reviewed - Recommendations Therapy Frequency (OFFICE SERVICES ASSOCIATE SLC) 5 days per week -CH Predicted Duration Therapy Intervention (Days) 1 week - Anticipated Discharge Disposition (OFFICE SERVICES ASSOCIATE) [facility] facility - User Carmona (r) = Recorded By, (t) = Taken By, (c) = Cosigned By Initials Name Effective Dates Sissy Lopez MS [facility]-OFFICE SERVICES ASSOCIATE 05/07/24 - EDUCATION The patient has been educated in the following areas: Cognitive Impairment Communication Impairment. OFFICE SERVICES ASSOCIATE GOALS Row Name 10/30/24 1430 (LTG) Patient will demonstrate functional swallow for Diet Texture (Demonstrate functional swallow) soft to chew (chopped) textures - Liquid viscosity (Demonstrate functional swallow) thin liquids - [place] (Demonstrate functional swallow) with minimal cues (75-90% [...] signs/symptoms of aspiration;with adequate oral prep/transit/clearance - [place] (Tolerate trials) with minimal cues (75-90% accuracy) - Time Frame (Tolerate trials) 1 week - Progress/Outcomes (Tolerate trials) goal met;goal revised this date - Comment (Tolerate trials) goal met for pureed, diet upgraded to soft chopped and thin liquids. - Patient will demonstrate functional cognitive-linguistic skills for return to discharge environment [place] with minimal cues - Time frame 1 week -CH Progress/Outcomes continuing progress toward goal -CH OFFICE SERVICES ASSOCIATE Diagnostic Treatment Patient will participate in further assessment in the following areas clarification of baseline cognitive communication status -CH Time Frame (Diagnostic) 1 week -CH Progress/Outcomes (Additional Goal 1, OFFICE SERVICES ASSOCIATE) continuing progress toward goal -CH Word Retrieval Skills Goal 1 (OFFICE SERVICES ASSOCIATE) Improve Word Retrieval Skills By Goal 1 (OFFICE SERVICES ASSOCIATE) high frequency;responsive naming task;completing a divergent task;80%;with minimal cues (75-90%) -CH Time Frame (Word Retrieval Goal 1, OFFICE SERVICES ASSOCIATE) 1 week -CH Progress (Word Retrieval Skills Goal 1, OFFICE SERVICES ASSOCIATE) 80%;with minimal cues (75-90%) -CH Progress/Outcomes (Word Retrieval Goal 1, OFFICE SERVICES ASSOCIATE) continuing progress toward goal -CH Orientation Goal 1 (OFFICE SERVICES ASSOCIATE) Improve Orientation Through Goal 1 (OFFICE SERVICES ASSOCIATE) demonstrating orientation to day;demonstrating orientationto month;demonstrating orientation to year;demonstrating orientation to place;demonstrating orientation to disease/impairment;use environmental aids to assist with orientation;80%;with minimal cues (75-90%) -CH Time Frame (Orientation Goal 1, OFFICE SERVICES ASSOCIATE) 1 week -CH Progress (Orientation Goal 1, OFFICE SERVICES ASSOCIATE) 50%;with minimal cues (75-90%) -CH Progress/Outcomes (Orientation Goal 1, OFFICE SERVICES ASSOCIATE) continuing progress toward goal -CH Comment (Orientation Goal 1, OFFICE SERVICES ASSOCIATE) Oriented to self and grossly to place, not to time or situation - Memory Skills Goal 1 (OFFICE SERVICES ASSOCIATE) Improve Memory Skills Through Goal 1 (OFFICE SERVICES ASSOCIATE) recalling related word lists immediately;recall details of the day;90%;with minimal cues (75-90%) -CH Time Frame (Memory Skills Goal 1, OFFICE SERVICES ASSOCIATE) 1 week -CH Progress (Memory Skills Goal 1, OFFICE SERVICES ASSOCIATE) 40%;with minimal cues (75-90%) - Progress/Outcomes (Memory Skills Goal 1, OFFICE SERVICES ASSOCIATE) continuing progress toward goal -CH User Carmona (r) = Recorded By, (t) = Taken By, (c) = Cosigned By Initials Name Provider Type Sissy Saldana MS [facility]-OFFICE SERVICES ASSOCIATE Speech and Language Pathologist Time Calculation: Time Calculation- OFFICE SERVICES ASSOCIATE Row Name 10/30/24 1601 Time Calculation- OFFICE SERVICES ASSOCIATE OFFICE SERVICES ASSOCIATE Start Time 1430 - OFFICE SERVICES ASSOCIATE Received On 10/30/24 - Untimed Charges 82172-SN Treatment/ST Modification Prosth Aug Alter 39 -CH 67542-SL Treatment Swallow Minutes 45 -CH Total Minutes Untimed Charges Total Minutes 84 -CH Total Minutes 84 -CH User Carmona (r) = Recorded By, (t) = Taken By, (c) = Cosigned By Initials Name Provider Type Sissy Saldana MS CCC-OFFICE SERVICES ASSOCIATE Speech and Language Pathologist Therapy Charges for Today Code Description Service Date Service Provider Modifiers Qty 44714515546 HC ST TREATMENT SWALLOW 3 10/30/2024 Sissy Lopez MS CCC-OFFICE SERVICES ASSOCIATE GN [address] TREATMENT SPEECH 3 10/30/2024 Jessica Sissy RAVI-OFFICE SERVICES ASSOCIATE GN 1 Sissy Jessica RAVI-OFFICE SERVICES ASSOCIATE 10/30/2024 * Case Management/Social Work - Saeed Ramsay RN - 10/30/2024 2:08 PM EDT Continued Stay Note [facility] Patient Name: Jessica Burnham Today's Date: 10/30/2024 Admit Date: 10/26/2024 Plan: SNF Discharge Plan Row Name 10/30/24 1400 Plan Plan SNF Patient/Family in Agreement with Plan yes Plan Comments I spoke w/Brianna Yip @ [facility], received fax from [facility] on Tuesday. Her contact number is [phone], fax [phone]. She stated that she needs more information about Mr. Burnham from daughter, Saranya. I called Saranya, who lives in [place], [place], she did not know about [facility] or where [facility] was located, I did give her Brianna's information to call. Per Saranya, she prefers her dad to go to a [facility] facility for STR, and would like her dad to be able to doSTR , then back to his apt w/caregivers, but then asked if [facility] would keep him? I informedthat I would leave a facility list in Mr. Burnham's room /[facility] for her to review.She plans to be here on , she is also assisting w/her mother. When I leave list, I will speak w/Mr. Burnham too. DC plan is SNF, will need transportation to SNF. Took list to Mr. Burnham, he stated that he did not want to go to [facility], or no where out of town. Speech pathologist was present in room as well, I asked him about SNF in [place], he stated, I don't want to be in that mess either. Will have unit CM f/u on Tuesday. Final Discharge Disposition Code 03 - usp facility (SNF) Discharge Codes No documentation. Expected [...] Procedure: ESOPHAGOGASTRODUODENOSCOPY; Surgeon: Mian Garcia MD; Location: [facility]; Service: Gastroenterology; Laterality: N/A; General Information [...] Row Name 10/30/24 1130 Sit-Stand Transfer Sit-Stand [place] (Transfers) contact guard;verbal cues -KR Assistive Device (Sit-Stand Transfers) walker, front-wheeled -KR Comment, (Sit-Stand Transfer) 2x from chair with FWW, 5x STS from chair unsupported. -KR Row Name 10/30/24 1130 Gait/Stairs (Locomotion) [place] Level (Gait) contact guard -KR Assistive Device [...] Therapist Physical Therapy Education Title: PT OT OFFICE SERVICES ASSOCIATE Therapies (In Progress) Topic: Physical Therapy (In [...] PT Received On 10/30/24 -KR Timed Charges 60341 - PT Therapeutic Exercise Minutes 18 -KR 51035 - PT Therapeutic Activity Minutes 5 -KR Total Minutes Timed Charges Total Minutes 23 -KR Total Minutes 23 -KR User Carmona (r) = Recorded By, (t) = Taken By, (c) = Cosigned By Initials Name Provider Type Yvonne Martin, PT Physical Therapist Therapy Charges for Today Code Description Service Date Service Provider Modifiers Qty 37382710717 HC PT THER PROC EA 15 MIN 10/30/2024 Yvonne Felder, PT GP 1 70558070911 HC PT THERAPEUTIC ACT EA 15 MIN 10/30/2024 Yvonne Felder, PT GP 1 PT G-Codes Outcome Measure Options: AM-PAC 6 Clicks Basic Mobility (PT) AM-PAC 6 Clicks Score (PT): 17 AM-PAC 6 Clicks Score (OT): 17 Modified Terry Scale: 3 - Moderate disability. Requiring some help, but able to walk without assistance. PT Discharge Summary Anticipated Discharge Disposition (PT): usp facility Yvonne Felder PT 10/30/2024 * Therapy [...] Procedure: ESOPHAGOGASTRODUODENOSCOPY; Surgeon: Mian Garcia MD; Location: [facility]; Service: Gastroenterology; Laterality: N/A; General Information [...] Row Name 10/30/24 1014 Sit-Stand Transfer Sit-Stand [place] (Transfers) contact guard;verbal cues -MR Assistive Device (Sit-Stand Transfers) walker, front-wheeled -MR Row Name 10/30/24 1014 Toilet Transfer Type (Toilet Transfer) stand pivot/stand step -MR [place] Level (Toilet Transfer) minimum assist (75% patient [...] Name 10/30/24 1014 Upper Body Dressing Assessment/Training [place] Level (Upper Body Dressing) don;contact guard assist;other (see comments) adjusting hospital gown -MR Position (Upper Body Dressing) supported sitting -MR Row Name 10/30/24 1014 Grooming Assessment/Training [place] Level (Grooming) wash face, hands;contact guard assist -MR Position (Grooming) sink side -MR Row Name 10/30/24 1014 Toileting Assessment/Training [place] Level (Toileting) adjust/manage clothing;contact guard assist;perform perineal hygiene;set up -MR Assistive Devices (Toileting) commode, bedside without drop arms -MR Position (Toileting) unsupported sitting;supported standing -MR Row Name 10/30/24 1014 Bathing Assessment/Intervention [place] Level (Bathing) perineal area;other (see comments);contact guard [...] Review/Discharge Plan (OT) Anticipated Discharge Disposition (OT) usp facility -MR Row Name 10/30/24 1018 Vital [...] Therapist Occupational Therapy Education Title: PT OT OFFICE SERVICES ASSOCIATE Therapies (In Progress) Topic: Occupational Therapy (In [...] OT Received On 10/30/24 -MR Timed Charges 64953 - OT Therapeutic Activity Minutes 10 -MR 16161 - OT Self Care/Mgmt Minutes 16 -MR Total Minutes Timed Charges Total Minutes 26 -MR Total Minutes 26 -MR User Carmona (r) = Recorded By, (t) = Taken By, (c) = Cosigned By Initials Name Provider Type Jamey ENRIQUE Mosqueda Occupational Therapist Therapy Charges for Today Code Description Service Date Service Provider Modifiers Qty 75633621157 HC OT THERAPEUTIC ACT EA 15 MIN 10/30/2024 Jaylin Concepcion OT GO 1 96603385265 HC OT SELF CARE/MGMT/TRAIN EA 15 MIN [...] Mobility Bed Mobility supine-sit;scooting/bridging (P) -ST Scooting/Bridging [place] (Bed Mobility) verbal cues;standby assist (P) -ST Supine-Sit [place] (Bed Mobility) verbal cues;standby assist (P) -ST [...] Row Name 10/29/24 151 Sit-Stand Transfer Sit-Stand [place] (Transfers) minimum assist (75% patient effort);1 person assist;verbal cues (P) -ST Assistive Device (Sit-Stand Transfers) walker, front-wheeled (P) -ST Comment, (Sit-Stand Transfer) 1x STS from EOB, 5x STS from chair, 1x STS from commode w/ 1x assist and verbal cues to complete safely. (P) -ST Row Name 10/29/24 1519 Gait/Stairs (Locomotion) [place] Level (Gait) contact guard (P) -ST Assistive [...] Motor Skills Therapeutic Exercise hip (P) -ST [facility] Name 10/29/241524 Hip (Therapeutic Exercise) Hip (Therapeutic [...] the medical record documentation (P) -ST Modified [place] Scale 3 - Moderate disability. Requiring some help, but able to walk without assistance. (P) -ST User Carmona (r) = Recorded By, (t) = Taken By, (c) = Cosigned By Initials Name Provider Type Ronnie Carter, RN Registered Nurse Edil Mukherjee, PT Student PT Student Physical Therapy Education Title: PT OT OFFICE SERVICES ASSOCIATE Therapies (In Progress) Topic: Physical Therapy (In [...] Due Date 11/07/24 (P) -ST Timed Charges 37567 - Gait Training Minutes 13 (P) -ST 93664 - PT Therapeutic Activity Minutes 13 (P) -ST Total Minutes Timed Charges Total Minutes 26 (P) -ST Total Minutes 26 (P) -ST User Carmona (r) = Recorded By, (t) = Taken By, (c) = Cosigned By Initials Name Provider Type Edil Franklin, PT Student PT Student Therapy Charges for Today Code Description Service Date Service Provider Modifiers Qty [id number] HC GAIT TRAINING EA 15 MIN 10/29/2024 Edil Franklin, PT Student GP 1 [id number] HC PT THERAPEUTIC ACT EA 15 MIN 10/29/2024 Edil Franklin, PT Student GP 1 PT G-Codes Outcome Measure Options: AM-PAC 6 Clicks Daily Activity (OT), Modified Terry AM-PAC 6 Clicks Score (PT): (P) 17 AM-PAC 6 Clicks Score (OT): 13 Modified [place] Scale: (P) 3 - Moderate disability. Requiring some help, but able to walk without assistance. PT Discharge Summary Anticipated Discharge Disposition (PT): (P) usp facility Edil Franklin PT Student 10/29/2024 Cosigned by Yvonne Felder PT at 10/29/2024 3:55 PM EDT Associated attestation - Yvonne Felder, PT - 10/29/2024 3:55 PM EDT Yvonne Felder PT, DPT, CSRS * Case Management/Social Work - Han Martin, RN - 10/29/2024 11:19 AM EDT Continued Stay Note [facility] Patient Name: Jessica Burnham Today's Date: 10/29/2024 Admit Date: 10/26/2024 Plan: [facility] Discharge Plan Row Name 10/29/24 1119 Plan Plan [facility] Patient/Family in Agreement with Plan yes Plan Comments CM faxed a referral to [facility] SNF. CM will continue to follow. Final Discharge Disposition Code 03 - usp facility (SNF) Row Name 10/29/24 0928 Plan Plan [place] Patient/Family in Agreement with Plan yes Plan Comments Spoke with patient at bedside. Lives alone in [place] Has caregiver 4-5 days a week. Contact is Saranya Carter (daughter/POA) [phone]. Is independent with ADL's. No problems affording [facility] or medications. Uses [place] [facility]. Uses a straight cane. No HH. PCP is [facility]. Plan is [place] [facility].Family will transport. CM will continue to follow. Final Discharge Disposition Code 03 - usp facility (SNF) Discharge Codes No documentation. Expected Discharge Date and Time Expected Discharge Date Expected Discharge Time Oct 29, 2024 Han Martin RN * Case Management/Social Work - Han Martin, RN - 10/29/2024 9:30 AM EDT Images from the original note were not included. Discharge Planning Assessment [facility] Patient Name: Jessica Burnham Today's Date: 10/29/2024 Admit Date: 10/26/2024 Plan: [place] Discharge Needs Assessment Row Name 10/29/24 [...] adult Family Caregiver Names Saranya Carter (daughter) [phone] Able to Return to Prior Arrangements yes [...] in last 30 days Current Outpatient/Agency/Support Group usp facility Equipment Currently Used at Home cane, [...] Needed After Discharge none Outpatient/Agency/Support Group Needs usp facility Discharge Facility/Level of Care Needs nursing [...] with patient at bedside. Lives alone in [place]. Has caregiver 4-5 days a week. Contact is Saranya Carter (daughter/POA) [phone]. Is independent with ADL's. No problems affording [facility] or medications. [facility] Uses a straight cane. No HH. PCP is [facility]. [facility]Family will transport. CM will continue to follow. Final Discharge Disposition Code 03 - usp facility (SNF) Continued Care and Services - Admitted Since 10/26/2024 No active coordination exists. Expected Discharge Date and Time Expected Discharge Date Expected Discharge Time Oct 29, 2024 Demographic Summary Row Name 10/29/24 0925 General Information Admission Type inpatient Arrived From hospital Referral Source admission list Reason for Consult discharge planning Preferred Language Togolese Contact Information Permission Granted to Share Info With welfare case workercase manager specialist Information Obtained for welfare case workerhedis manager Status Row Name 10/29/24 0925 Functional [...] per chart review he is from a intermediate. -AJ Existing Precautions/Restrictions fall;other (see comments) dementia -AJ Barriers to Rehab previous functional deficit;cognitive status - Row Name 10/28/24 1529 Living Environment Current Living Arrangements residential facility;other (see comments) Difficult to determine if he is in a SNF for rehab or intermediate. -AJ People in Home facility resident - [...] Bed Mobility Bed Mobility supine-sit -AJ Supine-Sit [place] (Bed Mobility) minimum assist (75% patient effort);1 person assist;verbal cues - Bed Mobility, Safety Issues cognitive deficits limit understanding -AJ Assistive Device (Bed Mobility) head of bed elevated;bed rails -AJ Comment, (Bed Mobility) Cues for task initiation - Row Name 10/28/24 153 Transfers Transfers sit-stand transfer;toilet transfer - Row Name 10/28/24 153 Sit-Stand Transfer Sit-Stand [place] (Transfers) minimum assist (75% patient effort);2 person assist;verbal cues - Assistive Device (Sit-Stand Transfers) walker, front-wheeled -AJ Comment, (Sit-Stand Transfer) minAx2 and cues for HP - Row Name 10/28/24 153 Toilet Transfer Type (Toilet Transfer) sit-stand;stand-sit -AJ [place] Level (Toilet Transfer) minimum assist (75% patient effort);2 person assist;verbal cues - Assistive Device (Toilet Transfer) commode;grab bars/safety frame;walker, front- wheeled - Comment, (Toilet Transfer) Cues for utilizing safety bars for safe lowering and rising from commode-[facility] 10/28/241532 Functional Mobility Functional Mobility- Ind. Level 2 person assist required;verbal cues required;contact guard assist - Functional Mobility- Device walker, front-wheeled - Functional Mobility-Distance (Feet) -- to and from bathroom -[facility] Name 10/28/241532 Activities of Daily Living BADL Assessment/Intervention upper body dressing;lower body dressing;grooming;toileting -[facility] 10/28/241532 Upper Body Dressing Assessment/Training [place] Level (Upper Body Dressing) don;doff;front opening garment;moderate assist (50% patient effort) - Position (Upper Body Dressing) unsupported sitting -[facility] 10/28/241532 Lower Body Dressing Assessment/Training [place] Level (Lower Body Dressing) doff;don;socks;maximum assist (25% patient effort);dependent (less than 25% patient effort) - Position (Lower Body Dressing) unsupported sitting -[facility] 10/28/241532 Grooming Assessment/Training [place] Level (Grooming) wash face, hands;set up - Position (Grooming) supported sitting -[facility] 10/28/241532 Toileting Assessment/Training [place] Level (Toileting) adjust/manage clothing;perform perineal hygiene;dependent (less than25% patient effort) - Assistive Devices (Toileting) commode - Position (Toileting) unsupported sitting;supported standing - User Carmona (r) = Recorded By, (t) = Taken By, (c) = Cosigned By Initials Name Provider Type Pearl Eisenberg OT Occupational Therapist Obj/Interventions [facility] Name 10/28/241537 Sensory Assessment (Somatosensory) Sensory Assessment (Somatosensory) UE sensation intact -[facility] 10/28/241537 Vision Assessment/Intervention Visual Impairment/Limitations unable/difficult to assess -[facility] 10/28/241537 Range of Motion Comprehensive General Range of Motion bilateral upper extremity ROM WFL -[facility] 10/28/24 1538 Strength Comprehensive (MMT) General Manual [...] OT) sit to supine;supine to sit - [place] Level/Cues Needed (Bed Mobility Goal 1, OT) standby assist - Time Frame (Bed Mobility Goal 1, OT) intermediate goal (LTG);10 days - Progress/Outcomes (Bed Mobility Goal 1, OT) new goal - Row Name 10/28/24 1543 Transfer Goal 1 (OT) Activity/Assistive Device (Transfer Goal 1, OT) yio-ce-epxli/bwjmu-nd-vmd;sck-zn-byijl/biyen-ac-fky;toilet - [place] Level/Cues Needed (Transfer Goal 1, OT) standby assist - Time Frame (Transfer Goal 1, OT) intermediate goal (LTG);10 days - Progress/Outcome (Transfer Goal 1, OT) new goal - Row Name 10/28/24 154 Toileting Goal 1 (OT) Activity/Device (Toileting Goal 1, OT) adjust/manage clothing;perform perineal hygiene - [place] Level/Cues Needed (Toileting Goal 1, OT) maximum [...] Review/Discharge Plan (OT) Anticipated Discharge Disposition (OT) usp facility - Row Name 10/28/24 1539 Vital [...] Minutes)-5 -BL Row Name 10/28/24 1544 Modified [place] Scale Pre-Stroke Modified [place] Scale 6 - Unable to determine (UTD) from the medical record documentation - Modified [place] Scale 3 - Moderate disability. Requiring some help, but able to walk without assistance. - Row Name 10/28/24 1544 10/28/24 1536 Functional Assessment Outcome Measure Options AM-PAC 6 Clicks Daily Activity (OT);Modified [place] -[facility]-PAC 6 Clicks Basic Mobility (PT) -MAI User Carmona (r) = Recorded By, (t) = Taken By, (c) = Cosigned By Initials Name Provider Type Jennifer Olvera, PT Physical Therapist Ronnie Salas, AVILA Registered Nurse Pearl Eisenberg, OT Occupational Therapist Occupational Therapy Education Title: PT OT OFFICE SERVICES ASSOCIATE Therapies (In Progress) Topic: Occupational Therapy (In [...] Effective Dates Name Provider Type [facility] 12/12/23 - Pearl Holt OT Occupational Therapist [...] Description Service Date Service Provider Modifiers Qty [id number] OT EVAL LOW COMPLEXITY 4 10/28/2024 Pearl [...] Bed Mobility Bed Mobility supine-sit -MAI Supine-Sit [place] (Bed Mobility) verbal cues;nonverbal cues (demo/gesture);minimum assist (75% patient effort) -MAI Assistive Device (Bed Mobility) head of bed elevated;bed rails -MAI Comment, (Bed Mobility) Pt utilized bed rail -MAI Row Name 10/28/24 1528 Transfers Comment, (Transfers) Cues for sequencing and hand placement with FWW. -MAI Row Name 10/28/24 1528 Sit-Stand Transfer Sit-Stand [place] (Transfers) minimum assist (75% patient effort) -MAI Assistive Device (Sit-Stand Transfers) walker, front-wheeled -MAI Comment, (Sit-Stand Transfer) VCs -MAI Row Name 10/28/24 1528 Gait/Stairs (Locomotion) [place] Level (Gait) contact guard -MAI Assistive Device [...] PT) sit to supine/supine to sit -MAI [place] Level/Cues Needed (Bed Mobility Goal 1, PT) independent -MAI Time Frame (Bed Mobility Goal 1, PT) intermediate goal (LTG);10 days -MAI Row Name 10/28/24 153 Transfer Goal 1 (PT) Activity/Assistive Device (Transfer Goal 1, PT) jof-ip-nshul/cynda-qc-ajq -MAI [place] Level/Cues Needed (Transfer Goal 1, PT) modified independence -MAI Time Frame (Transfer Goal 1, PT) short term goal (STG);5 days -MAI Row Name 10/28/24 153 Gait Training Goal 1 (PT) Activity/Assistive Device (Gait Training Goal 1, PT) gait (walking locomotion);assistive device use-MAI 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);10 days -MAI Row Name 10/28/24 [...] 10/28/24 1536 Functional Assessment Outcome Measure Options AM-[facility] 6 Clicks Basic Mobility (PT) - User Carmona (r) = Recorded By, (t) = Taken By, (c) = Cosigned By Initials Name Provider Type Jennifer Olvera, PT Physical Therapist Ronnie Salas, RN Registered Nurse Physical Therapy Education Title: PT OT OFFICE SERVICES ASSOCIATE Therapies (In Progress) Topic: Physical Therapy (In [...] Initials Effective Dates Name Provider Type Discipline AMI 10/01/20 - Jennifer Hendrickson, PT Physical Therapist [...] Description Service Date Service Provider Modifiers Qty [id number] HC-PT EVAL MOD COMPLEXITY 5 10/28/2024 Jennifer Hendrickson, PT 1 PT G-Codes Outcome Measure Options: AM-PAC 6 Clicks Basic Mobility (PT) AM-PAC 6 Clicks Score (PT): 18 PT Discharge Summary Anticipated Discharge Disposition (PT): [facility]p facility Jennifer Hendrickson PT 10/28/2024 * Therapy Evaluation - Sissy Lopez MS [facility]-OFFICE SERVICES ASSOCIATE - 10/27/2024 2:46 PM EDT Images from the original note were not included. Acute Care - Speech Language Pathology Swallow Initial Evaluation [facility] Clinical Swallow Evaluation Cognitive-Communication Evaluation Patient Name: Jessica Burnham : 1935 Today's Date: 10/27/2024 Admit Date: 10/26/2024 Visit Dx: No diagnosis found. Patient Active Problem List Diagnosis Stroke-like symptoms No past medical history on file. No past surgical history on file. OFFICE SERVICES ASSOCIATE Recommendation and Plan OFFICE SERVICES ASSOCIATE Swallowing Diagnosis: functional oral phase, R/O pharyngeal dysphagia, suspected esophageal dysphagia (07/12/25 1300) OFFICE SERVICES ASSOCIATE Diet Recommendation: puree, thin liquids, other (see comments) (pureed for comfort as pt c/o solids sticking in his esophagus) (10/27/241299) Recommended Precautions and Strategies: upright posture during/after eating, small bites of food and sips of liquid, reflux precautions (10/27/241299) OFFICE SERVICES ASSOCIATE Rec. for Method of Medication Administration: meds whole, meds crushed, with puree, as tolerated (10/27/241299) Monitor for Signs of Aspiration: notify OFFICE SERVICES ASSOCIATE if any concerns (10/27/241299) Recommended Diagnostics: other (see comments) (diet tolerance, MBS if any concerns after GI sees) (10/27/241299) Swallow Criteria for Skilled Therapeutic Interventions Met: demonstrates skilled criteria () Anticipated Discharge Disposition (OFFICE SERVICES ASSOCIATE): usp facility (10/27/241299) Rehab Potential/Prognosis, Swallowing: good, to [...] indicated (10/27/241299) SWALLOW EVALUATION (Last 72 Hours) OFFICE SERVICES ASSOCIATE Adult Swallow Evaluation Row Name 10/27/241299 General [...] aspiration;Risks of aspiration;Oral care recommendationsand rationale - OFFICE SERVICES ASSOCIATE Evaluation Clinical Impression OFFICE SERVICES ASSOCIATE Swallowing Diagnosis functional oral phase;R/O pharyngeal dysphagia;suspected esophageal dysphagia - Functional Impact risk of aspiration/pneumonia;risk of malnutrition - Rehab Potential/Prognosis, Swallowing good, to achieve stated therapy goals - Swallow Criteria for Skilled Therapeutic Interventions Met demonstrates skilled criteria - Recommendations Therapy Frequency (Swallow) PRN;5 days per week - OFFICE SERVICES ASSOCIATE Diet Recommendation puree;thin liquids;other (see comments) pureed for comfort as pt c/o solidssticking in his esophagus - Recommended Diagnostics other (see comments) diet tolerance, MBS if any concerns after GI sees - Recommended Precautions and Strategies upright posture during/after eating;small bites of food and sips of liquid;reflux precautions - Oral Care Recommendations Oral Care BID/PRN;Toothbrush - OFFICE SERVICES ASSOCIATE Rec. for Method of Medication Administration meds whole;meds crushed;with puree;as tolerated - Monitor for Signs of Aspiration notify OFFICE SERVICES ASSOCIATE if any concerns - Demonstrates Need for Referral to Another Service gastroenterology;dedicated esophageal assessment - Swallowing Considerations per Physician Discretion medical management of suspected esophageal dysphagia, as indicated - User Carmona (r) = Recorded By, (t) = Taken By, (c) = Cosigned By Initials Name Effective Dates Sissy Lopez, [facility]-OFFICE SERVICES ASSOCIATE 05/07/24 - EDUCATION The patient has been educated in the following areas: Dysphagia (Swallowing Impairment) Oral Care/Hydration Modified Diet Instruction. OFFICE SERVICES ASSOCIATE GOALS Row Name 10/27/24 1300 (LTG) Patient will demonstrate functional swallow for Diet Texture (Demonstrate functional swallow) mechanical ground textures - Liquid viscosity (Demonstrate functional swallow) thin liquids - [place] (Demonstrate functional swallow) with minimal cues (75-90% accuracy) - Time Frame (Demonstrate functional swallow) 1 week - (STG) Patient will tolerate trials of Consistencies Trialed (Tolerate trials) pureed textures;thin liquids - Desired Outcome (Tolerate trials) without signs/symptoms of aspiration;with adequate oral prep/transit/clearance - [place] (Tolerate trials) with minimal cues (75-90% accuracy) - Time Frame (Tolerate trials) 1 week - Patient will demonstrate functional cognitive-linguistic skills for return to discharge environment [place] with minimal cues -CH Time frame 1 week -CH OFFICE SERVICES ASSOCIATE Diagnostic Treatment Patient will participate in further assessment in the following areas clarification of baseline cognitive communication status -CH Time Frame (Diagnostic) 1 week -CH Word Retrieval Skills Goal 1 (OFFICE SERVICES ASSOCIATE) Improve Word Retrieval Skills By Goal 1 (OFFICE SERVICES ASSOCIATE) high frequency;responsive naming task;completing a divergent task;80%;with minimal cues (75-90%) - Time Frame (Word Retrieval Goal 1, OFFICE SERVICES ASSOCIATE) 1 week -CH Orientation Goal 1 (OFFICE SERVICES ASSOCIATE) Improve Orientation Through Goal 1 (OFFICE SERVICES ASSOCIATE) demonstrating orientation to day;demonstrating orientationto month;demonstrating orientation to year;demonstrating orientation to place;demonstrating orientation to disease/impairment;use environmental aids to assist with orientation;80%;with minimal cues (75-90%) - Time Frame (Orientation Goal 1, OFFICE SERVICES ASSOCIATE) 1 week -CH Memory Skills Goal 1 (OFFICE SERVICES ASSOCIATE) Improve Memory Skills Through Goal 1 (OFFICE SERVICES ASSOCIATE) recalling related word lists immediately;recall details of the day;90%;with minimal cues (75-90%) - Time Frame (Memory Skills Goal 1, OFFICE SERVICES ASSOCIATE) 1 week - User Carmona (r) = Recorded By, (t) = Taken By, (c) = Cosigned By Initials Name Provider Type Sissy Saldana MS CCC-OFFICE SERVICES ASSOCIATE Speech and Language Pathologist Time Calculation: Time Calculation- OFFICE SERVICES ASSOCIATE Row Name 10/27/24 1439 Time Calculation- OFFICE SERVICES ASSOCIATE OFFICE SERVICES ASSOCIATE Start Time 1300 -CH OFFICE SERVICES ASSOCIATE Received On 10/27/24 - Untimed Charges OFFICE SERVICES ASSOCIATE Eval/Re-eval ST Eval Speech and Production w/ Language - 32341;ST Eval Oral Pharyng Swallow - 16852 -CH 52131-QI Eval Speech and Production w/ Language Minutes 40 -CH 20688-TL Eval Oral Pharyng Swallow Minutes 42 -CH Total Minutes Untimed Charges Total Minutes 82 -CH Total Minutes 82 -CH User Carmona (r) = Recorded By, (t) = Taken By, (c) = Cosigned By Initials Name Provider Type Sissy Saldana MS CCC-OFFICE SERVICES ASSOCIATE Speech and Language Pathologist Therapy Charges for Today Code Description Service Date Service Provider Modifiers Qty [id number] ST EVAL ORAL PHARYNG SWALLOW 3 10/27/2024 LopezSissy boyer, MS CCC-OFFICE SERVICES ASSOCIATE GN [id number] EVAL SPEECH AND PROD W LANG 3 10/27/2024 LopezSissy boyer, MS CCC-OFFICE SERVICES ASSOCIATE GN 1 Sissy Jessica, MS CCC-OFFICE SERVICES ASSOCIATE 10/27/2024 and Acute Care - Speech Language Pathology Initial Evaluation [place] Patient Name: Jessica Burnham : 1935 Today's Date: 10/27/2024 Admit Date: 10/26/2024 Visit Dx: No diagnosis found. Patient Active Problem List Diagnosis Stroke-like symptoms No past medical history on file. No past surgical history on file. OFFICE SERVICES ASSOCIATE Recommendation and Plan OFFICE SERVICES ASSOCIATE Diagnosis: mild, cognitive-linguistic disorder (10/27/24 1300) Monitor for Signs of Aspiration: notify OFFICE SERVICES ASSOCIATE if any concerns (10/27/241299) Swallow Criteria for Skilled Therapeutic Interventions Met: demonstrates skilled criteria () SLC Criteria for Skilled Therapy Interventions Met: yes (10/27/24 1300) Anticipated Discharge Disposition (OFFICE SERVICES ASSOCIATE): [facility] facility (10/27/24 1300) Demonstrates Need for Referral to Another Service: gastroenterology, dedicated esophageal assessment (10/27/241299) Therapy Frequency (Swallow): PRN, 5 days per week (10/27/24 1300) Therapy Frequency (OFFICE SERVICES ASSOCIATE SLC): 5 days per week (10/27/241299) Predicted Duration Therapy Intervention (Days): 1 week (10/27/241299) Oral Care Recommendations: Oral Care BID/PRN, Toothbrush (10/27/24 1300) OFFICE SERVICES ASSOCIATE EVALUATION (Last 72 Hours) OFFICE SERVICES ASSOCIATE SLC Evaluation Row Name 10/27/241299 Communication Assessment/Intervention [...] Resonance (Voice) WNL - Cognitive Assessment Intervention- OFFICE SERVICES ASSOCIATE Cognitive Function (Cognition) mild impairment -CH Orientation Status (Cognition) awareness of basic personal information;person;WFL;place;time;situation;mild impairment -CH Memory (Cognitive) simple;immediate;long-term;WFL;short-term;delayed;mild impairment -CH Attention (Cognitive) selective;sustained;WFL;attention to detail;mild impairment -CH Thought Organization (Cognitive) concrete divergent;abstract divergent;concrete convergent;abstractconvergent;verbal sequencing;mild impairment -CH Reasoning (Cognitive) simple;deductive;WFL -CH OFFICE SERVICES ASSOCIATE Evaluation Clinical Impressions OFFICE SERVICES ASSOCIATE Diagnosis mild;cognitive-linguistic disorder - Rehab Potential/Prognosis good - SLC Criteria for Skilled Therapy Interventions Met yes - Recommendations Therapy Frequency (OFFICE SERVICES ASSOCIATE SLC) 5 days per week - Predicted Duration Therapy Intervention (Days) 1 week - Anticipated Discharge Disposition (OFFICE SERVICES ASSOCIATE) [facility] facility -CH User Carmona (r) = Recorded By, (t) = Taken By, (c) = Cosigned By Initials Name Effective Dates Sissy Saldana MS CCC-OFFICE SERVICES ASSOCIATE 05/07/24 - EDUCATION The patient has been educated in the following areas: Cognitive Impairment Communication Impairment. OFFICE SERVICES ASSOCIATE GOALS Row Name 10/27/24 1300 (LTG) Patient will demonstrate functional swallow for Diet Texture (Demonstrate functional swallow) mechanical ground textures -CH Liquid viscosity (Demonstrate functional swallow) thin liquids -CH [place] (Demonstrate functional swallow) with minimal cues (75-90% accuracy) -CH Time Frame (Demonstrate functional swallow) 1 week -CH (STG) Patient will tolerate trials of Consistencies Trialed (Tolerate trials) pureed textures;thin liquids -CH Desired Outcome (Tolerate trials) without signs/symptoms of aspiration;with adequate oral prep/transit/clearance -CH [place] (Tolerate trials) with minimal cues (75-90% accuracy) -CH Time Frame (Tolerate trials) 1 week -CH Patient will demonstrate functional cognitive-linguistic skills for return to discharge environment [place] with minimal cues -CH Time frame 1 week -CH OFFICE SERVICES ASSOCIATE Diagnostic Treatment Patient will participate in further assessment in the following areas clarification of baseline cognitive communication status -CH Time Frame (Diagnostic) 1 week -CH Word Retrieval Skills Goal 1 (OFFICE SERVICES ASSOCIATE) Improve Word Retrieval Skills By Goal 1 (OFFICE SERVICES ASSOCIATE) high frequency;responsive naming task;completing a divergent task;80%;with minimal cues (75-90%) - Time Frame (Word Retrieval Goal 1, OFFICE SERVICES ASSOCIATE) 1 week -CH Orientation Goal 1 (OFFICE SERVICES ASSOCIATE) Improve Orientation Through Goal 1 (OFFICE SERVICES ASSOCIATE) demonstrating orientation to day;demonstrating orientationto month;demonstrating orientation to year;demonstrating orientation to place;demonstrating orientation to disease/impairment;use environmental aids to assist with orientation;80%;with minimal cues (75-90%) - Time Frame (Orientation Goal 1, OFFICE SERVICES ASSOCIATE) 1 week -CH Memory Skills Goal 1 (OFFICE SERVICES ASSOCIATE) Improve Memory Skills Through Goal 1 (OFFICE SERVICES ASSOCIATE) recalling related word lists immediately;recall details of the day;90%;with minimal cues (75-90%) - Time Frame (Memory Skills Goal 1, OFFICE SERVICES ASSOCIATE) 1 week - User Carmona (r) = Recorded By, (t) = Taken By, (c) = Cosigned By Initials Name Provider Type Sissy Saldana MS CCC-OFFICE SERVICES ASSOCIATE Speech and Language Pathologist Time Calculation: Time Calculation- OFFICE SERVICES ASSOCIATE Row Name 10/27/24 1439 Time Calculation- OFFICE SERVICES ASSOCIATE OFFICE SERVICES ASSOCIATE Start Time 1300 -CH OFFICE SERVICES ASSOCIATE Received On 10/27/24 -CH Untimed Charges OFFICE SERVICES ASSOCIATE Eval/Re-eval ST Eval Speech and Production w/ Language - 90397;ST Eval Oral Pharyng Swallow - 34627 -CH 07389-RK Eval Speech and Production w/ Language Minutes 40 -CH 31757-XX Eval Oral Pharyng Swallow Minutes 42 -CH Total Minutes Untimed Charges Total Minutes 82 -CH Total Minutes 82 -CH User Carmona (r) = Recorded By, (t) = Taken By, (c) = Cosigned By Initials Name Provider Type Sissy Lopez MS CCC-OFFICE SERVICES ASSOCIATE Speech and Language Pathologist Therapy Charges for Today Code Description Service Date Service Provider Modifiers Qty [id number] HC ST EVAL ORAL PHARYNG SWALLOW 3 10/27/2024 Sissy Lopez MS CCC-OFFICE SERVICES ASSOCIATE GN [id number] EVAL SPEECH AND PROD W LANG 3 10/27/2024 Sissy Lopez MS CCC-OFFICE SERVICES ASSOCIATE GN 1 MS REZA Davalos 10/27/2024 documented in this encounter Plan of Treatment Not on file documented as of this encounter Procedures Procedure Name Priority Date/Time Associated Diagnosis Comments URINALYSIS, MICROSCOPIC ONLY Routine 10:12 AM EDT URINALYSIS W/ CULTURE IF INDICATED Routine 10/30/2024 10:12 AM EDT SC ESOPHAGOGASTRODUODENOSCOP Y TRANSORAL DIAGNOSTIC 10/29/2024 9:30 AM [...] Seen, 0-2 /HPF 10/30/2024 10:31 AM EDT [facility] WBC, UA 0-2 None Seen, 0-2 /HPF 10/30/2024 10:31 AM EDT [facility] Comment:Urine culture not in dicated. Bacteria, UA None Seen None Seen /HPF 10/30/2024 10:31 AM EDT [facility] Squamous Epithelial Cells, UA 0-2 None Seen, 0-2 /HPF 10/30/2024 10:31 AM EDT [facility] Hyaline Casts, UA None Seen None Seen /LPF 10/30/2024 10:31 AM EDT [facility] Methodology Automated Microscopy 10/30/2024 10:31 AM EDT [facility] Urine Urine specimen obtained by clean catch procedure / Unknown Collection / Unknown 10/30/2024 10:12 AM EDT 10/30/2024 10:12 AM EDT us Che Kiser SUPERVISOR [employer]SEMBLY URINE ORDERABLES F inal Result [facility]
[address] [place] [address], * (ABNORMAL) Urinalysis With Culture If Indicated - Urine, Clean Catch (10/30/2024 10:12 AM EDT) Color, UA Yellow Yellow, Straw 10/30/2024 10:31 AM EDT [facility] Appearance, UA Clear Clear 10/30/2024 10:31 AM EDT [facility] pH, UA 7.0 5.0 - 8.0 10/30/2024 10:31 AM EDT [facility] Specific [place], UA 1.011 1.005 - 1.030 10/30/2024 [facility] Glucose, UA Negative Negative 10/30/2024 10:31 AM EDT [facility] Ketones, UA Negative Negative 10/30/2024 10:31 AM EDT [facility] Bilirubin, UA Negative Negative 10/30/2024 [facility] Blood, UA Negative Negative 10/30/2024 10:31 AM EDT [facility] Protein, UA 30 mg/dL (1+)(A) Negative 10/30/2024 10:31 AM [facility] Leuk Esterase, UA Moderate (2+)(A) Negative 10/30/2024 10:31 AM EDT [facility] Nitrite, UA Negative Negative 10/30/2024 10:31 AM EDT [facility] Urobilinogen, UA 1.0 E.U./dL 0.2 - 1.0 E.U./dL 10/30/2024 10:31 AM [facility] Urine Urine specimen obtained by clean catch procedure / Unknown Collection / Unknown 10/30/2024 10:12 AM EDT 10/30/2024 10:12 AM EDT [facility] - 10/30/2024 10:31 AM EDT In absence of clinical symptoms, the presence of pyuria, bacteria, and/or nitrites on the urinalysis result does not correlate with infection. Checarson Kiser SUPERVISOR [employer]SEMBLY URINE ORDERABLES F inal Result [facility]
[address] [place] [address], * Upper GI Endoscopy (10/29/2024 9:19 AM [...] AND COLOR FLOW (10/28/2024 9:35 AM EDT) [facility] EF(MOD-bp) 37.8 % LVIDd 3.8 cm LVIDs [...] - 99 mg/dL 10/28/2024 9:56 AM EDT [facility] BUN 21.0 8.0 - 23.0 mg/dL 10/28/2024 9:56 AM EDT [facility] Creatinine 1.10 0.76 - 1.27 mg/dL 10/28/2024 9:56 AM EDT [facility] Sodium 140 136 - 145 mmol/L 10/28/2024 9:56 AM EDT [facility] Potassium 4.0 3.5 - 5.2 mmol/L 10/28/2024 9:56 AM EDT [facility] Chloride 104 98 - 107 mmol/L 10/28/2024 9:56 AM EDT [facility] CO2 24.0 22.0 - 29.0 mmol/L 10/28/2024 9:56 AM EDT [facility] Calcium 9.2 8.6 - 10.5 mg/dL 10/28/2024 9:56 AM EDT [facility] BUN/Creatinine Ratio 19.1 7.0 - 25.0 10/28/2024 9:56 AM EDT [facility] Anion Gap 12.0 5.0 - 15.0 mmol/L 10/28/2024 9:56 AM EDT [facility] eGFR 64.2 >60.0 mL/min/1.7 3 10/28/2024 9:56 AM EDT [facility] Blood Venipuncture / Unknown 10/28/2024 8:42 AM EDT 10/28/2024 9:09 AM EDT [facility] - 10/28/2024 9:56 AM EDT [...] MD LAB BLOOD ORDERABLES Final Res ult [facility]
[address] [place] [address], * CBC (No Diff) (10/28/2024 8:42 AM EDT) WBC 4.81 3.40 - 10.80 10*3/mm3 10/28/2024 9:16 AM EDT [facility] RBC 5.42 4.14 - 5.80 10*6/mm3 10/28/2024 9:16 AM EDT [facility] Hemoglobin 14.9 13.0 - 17.7 g/dL 10/28/2024 9:16 AM EDT [facility] Hematocrit 43.1 37.5 - 51.0 % 10/28/2024 9:16 AM EDT [facility] MCV 79.5 79.0 - 97.0 fL 10/28/2024 9:16 AM EDT [facility] MCH 27.5 26.6 - 33.0 pg 10/28/2024 9:16 AM EDT [facility] MCHC 34.6 31.5 - 35.7 g/dL 10/28/2024 9:16 AM EDT [facility] RDW 15.1 12.3 - 15.4 % 10/28/2024 9:16 AM EDT [facility] RDW-SD 43.6 37.0 - 54.0 fl 10/28/2024 9:16 AM EDT [facility] MPV 10.9 6.0 - 12.0 fL 10/28/2024 9:16 AM EDT [facility] Platelets 168 140 - 450 10*3/mm3 10/28/2024 9:16 AM EDT [facility] Blood Venipuncture / Unknown 10/28/2024 8:42 AM EDT 10/28/2024 9:09 AM EDT us Saeed Monique MD LAB BLOOD ORDERABLES Final Res ult [facility]
[address] [place] [address], * ECG 12 Lead QT Measurement (10/28/2024 12:32 AM EDT) [facility] QT Interval 398 ms ECG QTC Interval [...] Seen, 0-2 /HPF 10/28/2024 2:13 AM EDT [facility] WBC, UA 0-2 None Seen, 0-2 /HPF 10/28/2024 2:13 AM EDT [facility] Comment:Urine culture not in dicated. Bacteria, UA 1+(A) None Seen /HPF 10/28/2024 2:13 AM EDT [facility] Squamous Epithelial Cells, UA 0-2 None Seen, 0-2 /HPF 10/28/2024 2:13 AM EDT [facility] Hyaline Casts, UA None Seen None Seen /LPF 10/28/2024 2:13 AM EDT [facility] Methodology Manual Light Microscopy 10/28/2024 2:13 AM EDT [facility] Urine Urine specimen obtained by clean catch procedure / Unknown Collection / Unknown 10/28/2024 12:09 AM EDT 10/28/2024 1:00 AM EDT Gal Weiner PA-C URINE ORDERABLES Fin al Result [facility]
[address] [place] [address], * (ABNORMAL) Urinalysis With Culture If Indicated - Urine, Clean Catch (10/28/2024 12:09 AM EDT) Color, UA Yellow Yellow, Straw 10/28/2024 1:18 AM EDT [facility] Appearance, UA Clear Clear 10/28/2024 1:18 AM EDT [facility] pH, UA 8.0 5.0 - 8.0 10/28/2024 1:18 AM EDT [facility] Specific [place], UA 1.013 1.005 - 1.030 10/28/2024 1:18 AM EDT [facility] Glucose, UA Negative Negative 10/28/2024 1:18 AM EDT [facility] Ketones, UA Negative Negative 10/28/2024 1:18 AM EDT [facility] Bilirubin, UA Negative Negative 10/28/2024 1:18 AM EDT [facility] Blood, UA Negative Negative 10/28/2024 1:18 AM EDT [facility] Protein, UA 30 mg/dL (1+)(A) Negative 10/28/2024 1:18 AM EDT [facility] Leuk Esterase, UA Trace(A) Negative 10/28/2024 1:18 AM EDT [facility] Nitrite, UA Negative Negative 10/28/2024 1:18 AM EDT [facility] Urobilinogen, UA 1.0 E.U./dL 0.2 - 1.0 E.U./dL 10/28/2024 1:18 AM EDT [facility] Urine Urine specimen obtained by clean catch procedure / Unknown Collection / Unknown 10/28/2024 12:09 AM EDT 10/28/2024 1:00 AM EDT Narrative [facility] - 10/28/2024 1:18 AM EDT In absence of clinical symptoms, the presence of pyuria, bacteria, and/or nitrites on the urinalysis result does not correlate with infection. Gal Weiner PA-C URINE ORDERABLES Fin al Result Performing Organization Address City/[facility]/ZIP Co de Phone Number [facility]
[address] [place] [address], * Magnesium (10/27/2024 11:54 PM EDT) Magnesium 2.2 1.6 - 2.4 mg/dL 10/28/2024 12:35 AM EDT [facility] Blood Venipuncture / Unknown 10/27/2024 11:54 PM EDT 10/28/2024 12:04 AM EDT Gal Weiner PA-C LAB BLOOD ORDERABLES Final Result [facility]
[address] [place] [address], * (ABNORMAL) CBC Auto Differential (10/27/2024 11:54 PM EDT) WBC 5.07 3.40 - 10.80 10*3/mm3 10/28/2024 12:10 AM [facility] RBC 5.20 4.14 - 5.80 10*6/mm3 10/28/2024 12:10 AM [facility] Hemoglobin 14.6 13.0 - 17.7 g/dL 10/28/2024 12:10 AM [facility] Hematocrit 41.5 37.5 - 51.0 % 10/28/2024 12:10 AM [facility] MCV 79.8 79.0 - 97.0 fL 10/28/2024 12:10 AM [facility] MCH 28.1 26.6 - 33.0 pg 10/28/2024 12:10 AM [facility] MCHC 35.2 31.5 - 35.7 g/dL 10/28/2024 12:10 AM [facility] RDW 15.6(H) 12.3 - 15.4 % 10/28/2024 12:10 AM [facility] RDW-SD 44.8 37.0 - 54.0 fl 10/28/2024 12:10 AM [facility] MPV 10.3 6.0 - 12.0 fL 10/28/2024 12:10 AM [facility] Platelets 161 140 - 450 10*3/mm3 10/28/2024 12:10 AM [facility] Neutrophil % 33.3(L) 42.7 - 76.0 % 10/28/2024 12:10 AM [facility] Lymphocyte % 43.6 19.6 - 45.3 % 10/28/2024 12:10 AM [facility] Monocyte % 17.4(H) 5.0 - 12.0 % 10/28/2024 12:10 AM [facility] Eosinophil % 4.3 0.3 - 6.2 % 10/28/2024 12:10 AM [facility] Basophil % 1.0 0.0 - 1.5 % 10/28/2024 12:10 AM [facility] Immature Grans % 0.4 0.0 - 0.5 % 10/28/2024 12:10 AM EDT [facility] Neutrophils, Absolute 1.69(L) 1.70 - 7.00 10*3/mm3 10/28/2024 12:10 AM EDT [facility] Lymphocytes, Absolute 2.21 0.70 - 3.10 10*3/mm3 10/28/2024 12:10 AM EDT [facility] Monocytes, Absolute 0.88 0.10 - 0.90 10*3/mm3 10/28/2024 12:10 AM EDT [facility] Eosinophils, Absolute 0.22 0.00 - 0.40 10*3/mm3 10/28/2024 12:10 AM EDT [facility] Basophils, Absolute 0.05 0.00 - 0.20 10*3/mm3 10/28/2024 12:10 AM EDT [facility] Immature Grans, Absolute 0.02 0.00 - 0.05 10*3/mm3 10/28/2024 12:10 AM EDT [facility] nRBC 0.0 0.0 - 0.2 /100 WBC 10/28/2024 12:10 AM T [facility] Blood Venipuncture / Unknown 10/27/2024 11:54 PM EDT 10/28/2024 12:08 AM EDT Gal Weiner PA-C LAB BLOOD ORDERABLES Final Result [facility]
[address] [place] [address], * Lactic Acid, Plasma (10/27/2024 11:54 PM EDT) Lactate 1.3 0.5 - 2.0 mmol/L 10/28/2024 12:32 AM EDT [facility] Comment:Falsely depressed re sults may occur on samples drawn from patients receiving N-Acetylcysteine (NAC) or Metamizole. Blood Venipuncture / Unknown 10/27/2024 11:54 PM EDT 10/28/2024 12:04 AM EDT Gal Weiner PA-C LAB BLOOD ORDERABLES Final Result [facility]
[address] [place] [address], * (ABNORMAL) Comprehensive Metabolic Panel (10/27/2024 11:54 PM EDT) Glucose 80 65 - 99 mg/dL 10/28/2024 12:35 AM EDT [facility] BUN 21.7 8.0 - 23.0 mg/dL 10/28/2024 12:35 AM EDT [facility] Creatinine 1.08 0.76 - 1.27 mg/dL 10/28/2024 12:35 AM EDT [facility] Sodium 137 136 - 145 mmol/L 10/28/2024 12:35 AM EDT [facility] Potassium 4.1 3.5 - 5.2 mmol/L 10/28/2024 12:35 AM EDT [facility] Chloride 103 98 - 107 mmol/L 10/28/2024 12:35 AM EDT [facility] CO2 19.8(L) 22.0 - 29.0 mmol/L 10/28/2024 12:35 AM EDT [facility] Calcium 9.4 8.6 - 10.5 mg/dL 10/28/2024 12:35 AM EDT [facility] Total Protein 7.5 6.0 - 8.5 g/dL 10/28/2024 12:35 AM EDT [facility] Albumin 4.3 3.5 - 5.2 g/dL 10/28/2024 12:35 AM EDT [facility] ALT (SGPT) 23 1 - 41 U/L 10/28/2024 12:35 AM EDT [facility] AST (SGOT) 29 1 - 40 U/L 10/28/2024 12:35 AM T [facility] Alkaline Phosphatase 71 39 - 117 U/L 10/28/2024 12:35 AM T [facility] Total Bilirubin 0.4 0.0 - 1.2 mg/dL 10/28/2024 12:35 AM EDT [facility] Globulin 3.2 gm/dL 10/28/2024 12:35 AM T [facility] Comment:Calculated Result A/G Ratio 1.3 g/dL 10/28/2024 12:35 AM T [facility] BUN/Creatinine Ratio 20.1 7.0 - 25.0 10/28/2024 12:35 AM T [facility] Anion Gap 14.2 5.0 - 15.0 mmol/L 10/28/2024 12:35 AM T [facility] eGFR 65.6 >60.0 mL/min/1.7 3 10/28/2024 12:35 AM T [facility] Blood Venipuncture / Unknown 10/27/2024 11:54 PM EDT 10/28/2024 12:04 AM EDT [facility] - 10/28/2024 12:35 AM EDT [...] Weiner PA-C LAB BLOOD ORDERABLES Final Result [facility]
[id number] [place] [id number], * MRI Brain Without Contrast (10/27/2024 7:22 PM EDT) Anatomical Region Laterality Modality Head, Neck N/A Magnetic Resonan ce 10/27/2024 10:1 5 PM EDT Impressions 10/27/2024 10:17 PM EDT Impression: Advanced chronic and age-related changes are noted as above. There is otherwise no evidence of acute infarct, hemorrhage, mass or mass effect. Electronically Signed: Saulo Romo MD 10/27/2024 10:17 PM EDT Workstation ID: [id number] Amber 10/27/2024 10:17 PM EDT MRI BRAIN [...] MD 10/27/2024 10:17 PM EDT Workstation ID: [id number] Lamont Hernandez PA-C IMG MRI ORDERABLES Final Res ult * POC Glucose Once (10/27/2024 5:38 PM EDT) Glucose 117 70 - 130 mg/dL 10/27/2024 5:39 PM EDT [facility] Blood 10/27/2024 5:38 PM EDT 10/27/2024 5:39 PM EDT Saeed Monique MD POINT OF CARE TEST ORDERABLES Final Result [facility]
[address] [place] [address], * Fentanyl, Urine - Urine, Clean Catch (10/27/2024 3:18 PM EDT) Fentanyl, Urine Negative Negative 10/27/2024 4:39 PM EDT [facility] Urine Urine specimen obtained by clean catch procedure / Unknown Collection / Unknown 10/27/2024 3:18 PM EDT 10/27/2024 3:27 PM EDT Narrative [facility] - 10/27/2024 4:39 PM EDT [...] Saeed Monique MD URINE ORDERABLES Final Result [facility]
[address] [place] [address], * Urine Drug Screen - Urine, Clean Catch (10/27/2024 3:18 PM EDT) [facility], Screen, Urine Negative Negative 2024 4:17 PM EDT [facility] Phencyclidine (PCP), Urine Negative Negative 10/27/2024 4:17 PM EDT [facility] Cocaine Screen, Urine Negative Negative 10/27/2024 4:17 PM EDT [facility] Methamphetamine, Ur Negative Negative 10/27 4:17 PM EDT [facility] Opiate Screen Negative Negative 10/27/2024 4:17 PM EDT [facility] Amphetamine Screen, Urine Negative Negative 10/27/2024 4:17 PM EDT [facility] Benzodiazepine Screen, Urine Negative Negative 10/27/2024 4:17 PM EDT [facility] Tricyclic Antidepressants Screen Negative Negative 10/27/2024 4:17 PM EDT [facility] Methadone Screen, Urine Negative Negative 10/27/2024 4:17 PM EDT [facility] Barbiturates Screen, Urine Negative Negative 10/27/2024 4:17 PM EDT [facility] Oxycodone Screen, Urine Negative Negative 10/27/2024 4:17 PM EDT [facility] Buprenorphine, Screen, Urine Negative Negative 10/27/2024 4:17 PM EDT [facility] Urine Urine specimen obtained by clean catch procedure / Unknown Collection / Unknown 10/27/2024 3:18 PM EDT 10/27/2024 3:27 PM EDT [facility] - 10/27/2024 4:17 PM EDT [...] Saeed Monique MD URINE ORDERABLES Final Result [facility]
[address] [place] [address], * EEG AWAKE OR DROWSY PORTABLE (10/27/2024 [...] - 130 mg/dL 10/27/2024 11:16 AM EDT [facility] Blood 10/27/2024 11:1 5 AM EDT 10/27/2024 11:16 AM EDT Saeed Monique MD POINT OF CARE TEST ORDERABLES Final Result Performing Organization Address [facility] Co de Phone Number [facility]
[address] [place] [address], * Lipid Panel (10/27/2024 9:46 AM EDT) Total Cholesterol 138 0 - 200 mg/dL 10/27/2024 11:15 AM EDT [facility] Triglycerides 42 0 - 150 mg/dL 10/27/2024 11:15 AM EDT [facility] HDL Cholesterol 56 40 - 60 mg/dL 10/27/2024 11:15 AM EDT [facility] LDL Cholesterol 72 0 - 100 mg/dL 10/27/2024 11:15 AM EDT [facility] VLDL Cholesterol 10 5 - 40 mg/dL 10/27/2024 11:15 AM EDT [facility] LDL/HDL Ratio 1.31 10/27/2024 11:15 AM EDT [facility] Blood Venipuncture / Unknown 10/27/2024 9:46 AM EDT 10/27/2024 10:39 AM EDT Narrative [facility] - 10/27/2024 11:15 AM EDT [...] ORDERABLES Final R esult Performing Organization Address City/[facility] Co de Phone Number [facility]
[address] [place] [address], * Hemoglobin A1c (10/27/2024 9:46 AM EDT) Hemoglobin A1C 5.33 4.80 - 5.60 % 10/27/2024 12:28 PM EDT [facility] Blood Venipuncture / Unknown 10/27/2024 9:46 AM EDT 10/27/2024 10:40 AM EDT Narrative [facility] - 10/27/2024 12:28 PM EDT Hemoglobin A1C Ranges: Increased Risk for Diabetes 5.7% to 6.4% Diabetes >= 6.5% Diabetic Goal < 7.0% us Lamont Hernandez PA-C LAB BLOOD ORDERABLES Final R esult Performing Organization Address City/[facility]/ZIP Co de Phone Number [facility]
[address] [place] [address], * POC Glucose Once (10/27/2024 1:03 AM EDT) Glucose 97 70 - 130 mg/dL 10/27/2024 1:03 AM EDT [facility] Blood 10/27/2024 1:03 AM EDT 10/27/2024 1:03 AM EDT us Thien Becker MD POINT OF CARE TEST ORDERABLES F inal Result Performing Organization Address [facility] Co de Phone Number [facility]
[address] [place] [address], * Lactic Acid, Plasma (10/26/2024 11:21 PM EDT) Lactate 1.0 0.5 - 2.0 mmol/L 10/27/2024 12:03 AM EDT [facility] Comment:Falsely depressed re sults may occur on samples drawn from patients receiving N-Acetylcysteine (NAC) or Metamizole. Blood Venipuncture / Unknown 10/26/2024 11:21 PM EDT 10/26/2024 11:34 PM EDT us Roxy Jimenez APRN LAB BLOOD ORDERABLES Fi nal Result Performing Organization Address [facility] de Phone Number [facility]
[address] [place] [address], * (ABNORMAL) CK (10/26/2024 11:21 PM EDT) Creatine Kinase 245(H) 20 - 200 U/L 10/27/2024 12:01 AM EDT [facility] Blood Venipuncture / Unknown 10/26/2024 11:21 PM EDT 10/26/2024 11:34 PM EDT us May Mary Katem-Abisaiafa SUPERVISOR [employer]SEMBL[employer] LAB BLOOD ORDERABLES Fi nal Result Performing Organization Address City/[facility] Co de Phone Number [facility]
[address] [place] [address], [place] [phone] * CT Outside Head (10/26/2024 12:10 AM [...] Region Laterality Modality Radiographic Guillermina ging us [facility] Onbase IMG DIAGNOSTIC IMAGING ORDERA [...] Tue10/26/24 at 2000, If patient fails dysphagia, SC option MUST be given. Do not exceed [...] Tue10/26/24 at 2000, If patient fails dysphagia, SC option MUST be given. Do not exceed [...] tablet 40 mg 40 mg, Oral, Every Scientific Research Manager, First dose on Nataly 11/01/24 at 0600, [...] Tue10/26/24 at 2000, If patient fails dysphagia, SC option MUST be given. Do not exceed [...] Tue10/26/24 at 2000, If patient fails dysphagia, SC option MUST be given. Do not exceed [...] tablet 40 mg 40 mg, Oral, Every Scientific Research Manager, First dose on Tue11/01/24 at 0600, Do [...] 40 mg (CANCELED) 40 mg, Intravenous, Every Scientific Research Manager, First dose (after last modification) on Tue10/30/24 [...] Nightly PRN, Sleep, Starting on Tue10/27/24 at 1402 2020 (Given - Provider: Joel Decker, AVILA) [...] Tue10/26/24 at 1999, If patient fails dysphagia, SC option MUST be given. Do not exceed [...] Tue10/26/24 at 1999, If patient fails dysphagia, SC option MUST be given. Do not exceed 4 grams of aspirin in a 24 hr period. If given for pain, use the following pain scale: Mild Pain = Pain Score of 1-3, CPOT 1-2 Moderate Pain = Pain Score of 4-6, CPOT 3-4 Severe Pain = Pain Score of 7-10, CPOT 5-8 documented in this encounter Care Teams Aviation Project Manager Relationship Specialty Start Date End Date Provider, [place] [address] PCP - General 10/26/24 documented as of this encounter
--- OUTSIDE RECORDS SUMMARY | 2024-10-29 09:30 | XMS_ITS | Encounter Summary ---
Author Organization [facility] Address [address] [place] [address] Care Team Providers Care Scratch Brusher Name Role Phone Provider, No Known Primary Care Provider Unavail able Reason for Visit * Auth/Cert Specialty Diagnoses / Procedures Referred By Rosangela t Referred To Contact Diagnoses Cerebrovascular Accident CVA Referral ID Status Reason Start Date Expiration Date Visits Re quested Visits Authorized [id number] 1 1 Encounter Details Date Type Department Care Team (Late st Contact Info) Description 10/29/2024 9:30 AM EDT Anesthesia Event [facility] [address] [place] [address] Ajay Palomares MD [address] [place] [address] [phone] Anesthesia Record Procedure Summary Procedure Name Responsible [...] Years Used Date Smoking Tobacco: Never Assessed [facility] Utilities Answer Date Recorded In the past 12 months has [employer], gas, oil, or water [employer] threatened to shut off services in your [...] GED or equivalent No 10/29/2024 Preferred Language Grenadian 10/29/2024 Sex and Gender Information Value Date [...] poor historian. 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 Plan discussed with BOBBIN WASHER. CODE STATUS: documented in this encounter Plan of Treatment Not on file documented as of this encounter Visit Diagnoses [...] EDT documented in this encounter Care Teams Scratch Brusher Relationship Specialty Start Date End Date Provider, [place] [address] PCP - General 10/26/24 documented as of this encounter
--- OUTSIDE RECORDS SUMMARY | 2024-10-29 09:30 | XMS_ITS | Encounter Summary ---
Author Organization [facility] Address [address] [place] [address] Care Team Providers Care Clinical Trial Assistant Name Role Phone Provider, No Known Primary Care Provider Unavail able Reason for Visit * Auth/Cert Specialty Diagnoses / Procedures Referred By Rosangela t Referred To Contact Diagnoses Cerebrovascular Accident CVA Referral ID Status Reason Start Date Expiration Date Visits Re quested Visits Authorized [id number] 1 1 Encounter Details Date Type Department Care Team (Late st Contact Info) Description 10/29/2024 9:30 AM EDT Anesthesia Event [facility] [address] [place] [address] Ajay Palomares MD [address] [place] [address] [phone] Anesthesia Record Procedure Summary Procedure Name Responsible [...] Date Smoking Tobacco: Never Assessed [facility] Utilities Answer Date Recorded In the past 12 months has [employer], gas, oil, or water [employer] threatened to shut off services in your [...] GED or equivalent No 10/29/2024 Preferred Language Kosovan 10/29/2024 Sex and Gender Information Value Date [...] poor historian. 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 Plan discussed with QUALITY CONTROL REPRESENTATIVE. CODE STATUS: documented in this encounter Plan [...] EDT documented in this encounter Care Teams Clinical Trial Assistant Relationship Specialty Start Date End Date Provider, [place] [address] PCP - General 10/26/24 documented as of this encounter
[2024-12-27] VITALS (10 sets, daily range): BP systolic 130–186; BP diastolic 83–128; PULSE 63–119; RESP 14–20; TEMP 36.7–37.1; O2SAT 95–98; BMI 26.6; BMI 22.8
--- NOTE | 2024-12-27 09:33 | ECG_ITS ---
APPROVED REPORT Exam: Resting ECG HR:112 bpm ECG Measurements Heart Rate 112 AXES QRSd 89 QRS 66 QT 335 T 208 QTc 401 Conclusion ATRIAL FIBRILLATION WITH RAPID VENTRICULAR RESPONSE NONSPECIFIC ST & T-WAVE ABNORMALITY No STEMI Electronically signed by : BASIM GARCIA, 12/28/2024 02:53:23
[2024-12-27 09:42] LABS: POC Glucose,Bedside 111 gm/dL (70-110)
--- NOTE | 2024-12-27 09:52 | HMH.EDGENADL ---
Discharge Plan Disposition Chief Complaint: Altered Mental Status Prescriptions Prescriptions: No Action polyethylene glycol 3350 [Miralax] 17 gram/dose powder 17 g PO DAILY PRN (Reason: constipation) Qty: 510 0RF sennosides 8.6 mg tablet 8.6 mg PO DAILY Qty: 30 0RF levofloxacin 750 mg tablet 750 mg PO DAILY 7 Days Qty: 7 0RF tamsulosin [Flomax] 0.4 mg Capsule 0.8 mg PO HS carvedilol 6.25 mg Tablet 6.25 mg PO BID Qty: 60 0RF potassium chloride 20 mEq Tablet,Er Particles/Crystals 20 meq PO DAILY Qty: 30 0RF amlodipine [Norvasc] 5 mg Tablet 5 mg PO DAILY Qty: 30 0RF aspirin 325 mg Tablet,Delayed Release (Dr/Ec) 325 mg PO DAILY Qty: 30 0RF finasteride [Proscar] 5 mg Tablet 5 mg PO DAILY Qty: 30 0RF diltiazem HCl 360 mg Tablet Extended Release 24 Hr 360 mg PO DAILY Qty: 30 0RF rosuvastatin [Crestor] 10 mg Tablet 5 mg PO HS Qty: 30 0RF diclofenac sodium 1 % Gel 2 g TOPICAL Q6HP PRN (Reason: Pain) Qty: 100 0RF Rx Instructions: apply to both knees as needed omeprazole 20 mg Tablet,Delayed Release (Dr/Ec) 40 mg PO BID MDD Acid rflux Qty: 30 0RF bisacodyl [Dulcolax (bisacodyl)] 10 mg suppository 10 mg DC DAILY PRN (Reason: constipation) Qty: 12 0RF amoxicillin-pot clavulanate 875-125 mg tablet 1 tab PO BID Qty: 20 0RF Referrals Follow up/Referrals: Provider,Referral, MD [Primary Care Provider, Medical] - See instructions Instructions Patient Instructions: DI for Altered Mental Status Print Language Print Language: Slovenian Discharge ED Provider: Kristal Olson General Adult HPI General Chief complaint: Altered Mental Status Stated complaint: ams Time Seen by Provider: 12/27/24 09:52 History of Present Illness HPI narrative: Patient is an 89-year-old with past medical history significant for frontal lobe stroke BPH dementia lives by himself coming via EMS due to altered mental status. History obtained per EMS caregiver and daughter secondary to patient's altered mental status. Per daughter patient was last well 6 weeks ago. Patient is on aspirin but denies any other blood thinner use. Patient's family ordered a caregiver to go check on patient as they have not heard from him and on caregivers for day patient was found on the floor, covered in urine and incomprehensible. Patient reports nothing when asked if anything is bothering him. But unable to answer any other questions Related Data Home Medications ?Medication ?Instructions ?Recorded ?Confirmed tamsulosin 0.4 mg capsule (Flomax) 0.8 mg PO HS Prostate 04/06/22 06/06/24 Previous Rx's ?Medication ?Instructions ?Recorded amlodipine 5 mg tablet (Norvasc) 5 mg PO DAILY Hypertension #30 tabs 04/08/22 aspirin 325 mg tablet,delayed 325 mg PO DAILY Heart health #30 04/08/22 release tabs carvedilol 6.25 mg tablet 6.25 mg PO BID #60 tabs 04/08/22 diclofenac sodium 1 % topical gel 2 g topical Q6HP PRN Pain #100 04/08/22 grams diltiazem HCl 360 mg 360 mg PO DAILY Hypertension #30 04/08/22 tablet,extended release 24 hr tabs finasteride 5 mg tablet (Proscar) 5 mg PO DAILY Prostate #30 tabs 04/08/22 omeprazole 20 mg tablet,delayed 40 mg (2 x 20 mg) PO BID Acid 04/08/22 release reflux #30 tabs potassium chloride 20 mEq 20 meq PO DAILY #30 tabs 04/08/22 tablet,extended release(part/cryst) rosuvastatin 10 mg tablet (Crestor) 5 mg (1/2 x 10 mg) PO HS 04/08/22 Cholesterol #30 tabs bisacodyl 10 mg rectal suppository 10 mg DC DAILY PRN constipation 03/06/23 (Dulcolax (bisacodyl)) #12 ea amoxicillin 875 mg-potassium 1 tab PO BID #20 tabs 06/06/24 clavulanate 125 mg tablet levofloxacin 750 mg tablet 750 mg PO DAILY 7 days #7 tabs 07/28/24 polyethylene glycol 3350 17 17 g PO DAILY PRN constipation 07/28/24 gram/dose oral powder (Miralax) #510 grams sennosides 8.6 mg tablet 8.6 mg PO DAILY #30 tabs 07/28/24 Allergies Allergy/AdvReac Type Severity Reaction Status Date / Time No Known Allergies Allergy Verified 06/06/24 10:17 [facility] Disclaimer: The information contained in this section may have been updated after the patient was seen, as this information can be updated by other users. Medical History UTI (urinary tract infection) BPH (benign prostatic hyperplasia) Social History Smoking Status: Unknown if ever smoked alcohol intake: former substance use type: denies use current occupational status: retired and other Travel in the last 8 weeks?: None household members: none housing: apartment Other Medical History Have you received the Flu Vaccine for this season: No Have you received the Pneumonia Vaccine: No ROS Obtained: Yes All systems reviewed & no additional complaints except as documented Physical Exam General General appearance: lethargic, obtunded and in distress Comment: Disheveled, covered in urine Head Head exam: atraumatic Eye Eye exam: Present PERRL ENT ENT exam: Present mucous membranes dry Chest Chest inspection: Present symmetric chest wall rise and tenderness Respiratory Respiratory exam: Present wheezes and other (Decreased breath sounds bilateral lung bases) Cardiovascular Cardiovascular exam: Present tachycardia Abdominal Exam Abdominal exam: Present soft, distention and tenderness (suprapubic) exam: Present normal inspection Neurological Exam Neurological exam: Present other (Incomprehensible verbal response, withdraws to painful stimuli in all 4 extremities) Medical Decision Making Medical Records Screening: Per USPSTF and CDC recommendations, given the prevalence of disease in our region, it is our hospital?s policy to screen for HIV and viral Hepatitis for all patients aged 18 and over and those with ongoing risk factors. Reyes Inquiry Pt receiving controlled substance: No Vital Signs: 12/27/24 10:00 12/27/24 10:30 12/27/24 10:37 Temperature 98.1 F Temperature Source Oral Pulse Rate 94 H Pulse Rate [Left Radial] 117 H Respiratory Rate 15 14 17 Blood Pressure 186/113 H 164/103 H Blood Pressure [Right Arm] 166/112 H Blood Pressure Mean [Right Arm] 130 02 Sat by Pulse Oximetry 95 96 96 Oxygen Delivery Method Room Air 12/27/24 11:00 12/27/24 12:30 12/27/24 13:00 Temperature Temperature Source Pulse Rate 74 Pulse Rate [Left Radial] Respiratory Rate 16 16 16 Blood Pressure 164/128 H 166/107 H 178/123 H Blood Pressure [Right Arm] Blood Pressure Mean [Right Arm] 02 Sat by Pulse Oximetry 98 Oxygen Delivery Method Lab Data Lab Results 12/27/24 09:30: WBC 4.8, RBC 4.79, Hgb 13.7 L, Hct 38.9 L, MCV 81.2, MCH 28.6, MCHC 35.2, RDW 15.5, Plt Count 141 L, MPV 10.7 H, Neut % (Auto) 73.7, Lymph % (Auto) 12.2, Faulkner % (Auto) 13.5 H, Eos % (Auto) 0.0 L, Baso % (Auto) 0.4, Neut # (Auto) 3.6, Lymph # (Auto) 0.6 L, Faulkner # (Auto) 0.7, Eos # (Auto) 0.0, Baso # (Auto) 0.0, Sodium 140, Potassium 4.1, Chloride 105, Carbon Dioxide 27, Anion Gap 12.1, BUN 19, Creatinine 1.20, Estimated Creat Clear 47, Estimated GFR 57 L, Est GFR ( Amer) 69, Glucose 128 H, Calcium 8.9, Total Bilirubin 1.1, AST 44, ALT 64, Alkaline Phosphatase 98, Total Creatine Kinase 373 H, NT-Pro-B Natriuret Pep 17991 H, Total Protein 7.0, Albumin 4.1, Globulin 2.9, Albumin/Globulin Ratio 1.4 12/27/24 09:34: POC Glucose 111 H 12/27/24 09:45: Urine Color Yellow, Urine Appearance Clear, Urine pH 6.0, Ur Specific [place] 1.020, Urine Protein 2+ A, Urine Glucose (UA) Negative, Urine Ketones Trace, Urine Blood 3+ A, Urine Nitrate Negative, Urine Bilirubin Negative, Urine Urobilinogen 0.2, Ur Leukocyte Esterase 1+ A, Urine RBC Occasional, Urine WBC Occasional, Ur Squamous Epith Cells Occasional, Urine Bacteria Trace 12/27/24 09:50: VBG pH 7.28 L, VBG pCO2 45.3, VBG pO2 29.4, VBG HCO3 20.6 L, VBG Total CO2 22.0 L, VBG O2 Saturation 49.7 L, VBG Base Excess -6.3 L, VBG Lactic Acid 2.8 H 12/27/24 09:30 12/27/24 09:30 Orders (Tests/Meds): ED MEDICATIONS Generic Name Dose Route Start Last Admin Trade Name Pita PRN Reason Stop Dose Admin Ceftriaxone Sodium 2 gm/ 100 mls @ 200 mls/hr 12/27/24 13:45 12/27/24 13:54 Sodium Chloride IV 01/06/25 13:44 200 mls/hr Q24H MAKENZIE Administration Discontinued Medications Generic Name Dose Route Start Last Admin Trade Name Pita PRN Reason Stop Dose Admin Iopamidol 80 ml 12/27/24 11:08 12/27/24 11:09 Iopamidol-370 (76%);100ml Bottle IV 12/27/24 11:09 80 ml ONCE ONE Administration Iopamidol 80 ml 12/27/24 11:25 12/27/24 11:26 Iopamidol-370 (76%);100ml Bottle IV 12/27/24 11:26 80 ml ONCE ONE Administration Sodium Chloride 10 ml 12/27/24 11:08 12/27/24 11:09 Sodium Chloride 0.9% 10ml Syr (Rad Only) IV 12/27/24 11:09 10 ml ONCE ONE Administration Sodium Chloride 50 ml 12/27/24 11:08 12/27/24 11:09 0.9 % Sodium Chloride 50 Ml Vial IV 12/27/24 11:09 50 ml ONCE ONE Administration Sodium Chloride 10 ml 12/27/24 11:25 12/27/24 11:26 Sodium Chloride 0.9% 10ml Syr (Rad Only) IV 12/27/24 11:26 10 ml ONCE ONE Administration Sodium Chloride 50 ml 12/27/24 11:25 12/27/24 11:26 0.9 % Sodium Chloride 50 Ml Vial IV 12/27/24 11:26 50 ml ONCE ONE Administration ORDERS Category Date Time Status CT angio head Stat Cat Scan 12/27/24 10:[address] angio neck Stat Cat Scan 12/27/24 10:[address] cervical spine wo con Stat Cat Scan 12/27/24 10:[address] head/brain wo con Stat Cat Scan 12/27/24 09:54 Completed CTA Chest [CT angio chest - dissection] Stat Cat Scan 12/27/24 11:22 Completed POCUS Point of Care (ER Only) Stat Exams 12/27/24 09:54 Completed XR chest portable Stat Exams 12/27/24 09:54 Completed XR pelvis 1-2V Stat Exams 12/27/24 10:32 Completed BNP [NT Pro Brain Natriuretic Pep.] Stat Lab 12/27/24 09:30 Completed BNP [NT Pro Brain Natriuretic Pep.] Stat Lab 12/27/24 09:30 Received CRP [C-Reactive Protein] Stat Lab 12/27/24 09:30 Received Complete Blood Count Auto Diff Stat Lab 12/27/24 09:30 Completed Comprehensive Metabolic Panel Stat Lab 12/27/24 09:30 Completed Creatine Kinase Stat Lab 12/27/24 09:30 Completed Lactic Acid Follow Up (RFLX 1) Stat Lab 12/27/24 13:56 Ordered POC Glucose,Bedside Routine Lab 12/27/24 09:34 Completed Procalcitonin Routine Lab 12/27/24 09:30 Received Urinalysis and Microscopic Stat Lab 12/27/24 09:45 Completed Blood Culture Stat Micro 12/27/24 09:35 Received Urine Culture Stat Micro 12/27/24 09:45 Received Venous Blood Gas Stat RT 12/27/24 09:50 Completed CA echo doppler complete Routine Y 12/27/24 13:50 Completed Medical Decision Narrative: In summary, this 89-year-old male presents to the emergency department today with altered mental status after being found down. On initial evaluation patient is lethargic opening eyes to voice, incomprehensible verbal response, withdrawing to painful stimuli in the left upper and bilateral lower extremities. Patient on the new oxygen requirement of 2 L nasal cannula and afebrile tachycardic in A-fib and hypertensive. Differential diagnosis includes but is not limited to intracranial hemorrhage, rhabdomyolysis, electrolyte abnormalities, acute urinary retention and uremia, acute kidney injury, pneumonia, heart failure, sepsis, ischemic stroke. Based on these concerns, I ordered CBC CMP troponin BNP lactate, chest x-ray, blood culture urine cultures CTA head and neck CT C-spine pelvic x-ray, CTA chest. [id number] bladder ultrasound with 800 cc in bladder, Benjamin anchored. ECG personally interpreted demonstrates atrial fibrillation no ST elevation ST depression or T wave inversions concerning for ischemia Patient received 2 g of ceftriaxone for treatment. Labs personally reviewed demonstrate no leukocytosis, UA with hematuria and pyuria nitrate negative, creatinine kinase elevated XR personally interpreted demonstrates bilateral pleural effusions, with interstitial edema CT imaging personally interpreted demonstrate cerebral atrophy, no intracranial hemorrhage, poor quality of CTAs of head and neck likely secondary to poor cardiac output. [facility]. I had an interacteive covnersation with Dr. Butt who agreed to accept patient for further evaluation of inability to perform ADLs, hypoxic respiratory failure, heart failure exacerbation, acute urinary retention. Critical Care Critical Care Time Critical Care Time: No
[2024-12-27 09:54] LABS: Microscopic, Urine URINE MICROSCOPIC (MICROSCOPIC)
--- NOTE | 2024-12-27 09:54 | XR_ITS ---
FINAL REPORT CLINICAL HISTORY: Cough, shortness of breath COMPARISON: 04/05/2022 FINDINGS: A single PA view of the chest was obtained. The heart is enlarged. There are bilateral perihilar opacities that could represent pulmonary edema. Small pleural effusions are not excluded. There is no pneumothorax. There are no radiodensities projecting over the left axilla which could be calcifications in the soft tissues, foreign body not excluded. IMPRESSION: Cardiomegaly and perihilar opacities, favor pulmonary edema. Recommend follow-up. Radiodensities projecting over the left axilla could be calcifications, foreign body not excluded. Reviewed, Interpreted and Dictated by Suki Swanson MD Transcribed by Carmenza Franks Authenticated and . [facility]
--- NOTE | 2024-12-27 09:54 | CT_ITS ---
FINAL REPORT TECHNIQUE: Thin section axial images were obtained from skull base to vertex without contrast. Coronal reconstruction images were obtained from the axial data. Exam was performed using dose reduction techniques such as automated exposure control, adjustment of the mA and kV according to patient size, and use of iterative reconstruction technique. CLINICAL HISTORY: ams COMPARISON: 11/29/2024 FINDINGS: There is atrophy with periventricular changes likely related to chronic small vessel ischemia. There is stable encephalomalacia in the posterior right frontal lobe. Hypodensity in the left cerebellum was not well-demonstrated on prior exam, ischemia is not excluded. There is no mass effect or midline shift. There is no hydrocephalus. There is no intracranial hemorrhage. The posterior fossa is without acute abnormality. The basilar cisterns are preserved. There is mucoperiosteal thickening of the ethmoids, favor chronic. No acute osseous abnormality is identified. IMPRESSION: No hemorrhage or acute large cortical infarct. Hypodensity in the left cerebellum, ischemia not excluded. Atrophy with periventricular white matter changes. Reviewed, Interpreted and Dictated by Suki Swanson MD Transcribed by Vita Vela Authenticated and [facility]
[2024-12-27 09:55] LABS: VBG HCO3 20.6 mmol/L (23-30); VBG PCO2 45.3 mmol/L (35-51); VBG PH 7.28 mmol/L (7.31-7.41); VBG PO2 29.4 mmol/L (28-40)
[2024-12-27 09:56] LABS: Hematocrit 38.9 % (42.0-52.0); Hemoglobin 13.7 g/dL (14.1-18.0); Immature Granulocytes % 0.2 %; Mean Corpuscular HGB Conc 35.2 g/dL (31.8-35.4); Mean Corpuscular Hemoglobin 28.6 pg (27.0-31.2); Mean Corpuscular Volume 81.2 fl (80-94); Nucleated Red Blood Cells % 0 %; Platelet Count 141 K/mm3 (142-424); Red Blood Count 4.79 M/mm3 (4.60-6.20); Red Cell Distribution Width-SD 45.4 fL; White Blood Count 4.8 K/mm3 (4.8-10.8)
[2024-12-27 09:56] LABS: Lactate Venous 2.8 mmol/L (0.4-2.0)
[2024-12-27 09:57] LABS: Bilirubin,Urine Negative (Negative); Color,Urine YELLOW (Yellow); Glucose,Urine (UA) Negative (Negative); Ketones,Urine TRACE (Negative); Leukocyte Esterase,Urine 1+ (Negative); PH,Urine 6.0 (5.0-8.5); Protein,Urine 2+ (Negative); Specific Gravity, Urine 1.020 (1.005-1.030); Urobilinogen,Urine 0.2 EU/dl (0.2)
[2024-12-27 10:02] LABS: Alanine Aminotransferase 64 U/L (12-78); Albumin Level 4.1 g/dl (3.5-5.0); Albumin/Globulin Ratio 1.4 (1.1-1.8); Alkaline Phosphatase 98 U/L (38-126); Anion Gap 12.1 mEq/L (5-15); Aspartate Amino Transferase 44 U/L (17-59); Bilirubin,Total 1.1 mg/dl (0.2-1.3); Blood Urea Nitrogen 19 mg/dl (9-20); Calcium 8.9 mg/dl (8.4-10.2); Carbon Dioxide 27 mmol/L (22.0-30.0); Chloride 105 mmol/L (98-107); Creatinine Clearance Estimated 47 mL/min (50-200); Creatinine,Serum 1.20 mg/dl (0.66-1.25); Estimated Glomerular Filt Rate 57 ml/min (>60); GFR (African American) 69 ML/MIN (>60); Globulin 2.9 g/dL (1.3-3.2); Glucose 128 mg/dl (74-100); Potassium 4.1 mmoL/L (3.5-5.1); Sodium 140 mmol/L (136-145); Total Protein,Serum 7.0 g/dl (6.3-8.2)
--- OUTSIDE RECORDS SUMMARY | 2024-12-27 10:03 | XMS_ITS | Encounter Summary ---
Author Organization [facility] Address [address] [place] [address] Care Team Providers Care Military Technician Name Role Phone Provider, No Known Primary Care Provider Unavail able Encounter Details Date Type Department Care Team (Late st Contact Info) Description 12/13/2024 Readmission Management [facility] [address] [place] [phone] Mirtha Iyer Social History Tobacco Use Types Packs/Day Years Used Date Smoking Tobacco: Never Assessed [facility] Utilities Answer Date Recorded In the past 12 months has th [employer] electric, gas, oil, or water [employer] threatened to shut off services in your [...] GED or equivalent No 10/29/2024 Preferred Language Trinidadian 10/29/2024 Sex and Gender Information Value Date Recorded Sex Assigned at Not on file Legal Sex Male 4:14 PM EDT Gender Identity Not on file Sexual Orientation Not on file documented as of this encounter Miscellaneous Notes * Outreach Note - Mirtha Iyer - 12/13/2024 7:16 AM EDT Prep Survey Flowsheet Row Responses [facility] patient discharged from? [place] Does the patient have one of the following disease processes/diagnoses(primary or secondary)? Other Mirtha Fuentes - Coordinator documented in this encounter Plan of Treatment Not on file documented as of this encounter Visit Diagnoses Not on filedocumented in this encounter Care Teams Military Technician Relationship Specialty Start Date End Date Provider, No Known [facility] [place] [address] PCP - General 10/26/24 documented as of this encounter
--- OUTSIDE RECORDS SUMMARY | 2024-12-27 10:03 | XMS_ITS | Encounter Summary ---
[facility] Address [address] [place] [address] Care Team Providers Care Terrazzo Layer Name Role Phone Provider, No Known Primary Care Provider Unavail able Encounter Details Date Type Department Care Team (Late st Contact Info) Description 11/02/2024 Readmission Management [facility] NUR[facility] CALL [facility] [address] [place] [phone] Shweta German, RN Social History Tobacco Use Types Packs/Day Years Used Date Smoking Tobacco: Never Assessed [facility] Utilities Answer Date Recorded In the past 12 months has [employer] electric, gas, oil, or water company threatened [...] GED or equivalent No 10/29/2024 Preferred Language Ecuadorean 10/29/2024 Sex and Gender Information Value Date Recorded Sex Assigned at Not on file Legal Sex Male 4:14 PM EDT Gender Identity Not on file Sexual Orientation Not on file documented as of this encounter Miscellaneous Notes * Outreach Note - Shweta German RN - 11/02/2024 7:52 PM EDT Prep Survey Flowsheet Row [facility]es [facility] < 7 ? No Eligibility Readm Mgmt Discharge diagnosis Stroke-like symptoms Does the patient have one of the following disease processes/diagnoses(primary or secondary)? Other Prep survey completed? Yes Shweta Sorenson - Registered Nurse documented in this encounter Plan of Treatment Not on file documented as of this encounter Visit Diagnoses Not on filedocumented in this encounter Care Teams Terrazzo Layer Relationship Specialty Start Date End Date Provider, No Known [facility] [place] [address] PCP - General 10/26/24 documented as of this encounter
--- OUTSIDE RECORDS SUMMARY | 2024-12-27 10:03 | XMS_ITS | Clinical Summary ---
Author Organization [facility] Address [address] [place] [address] Care Team Providers Care Junior Web Designer Name Role Phone Provider, No Known Primary [...] tablet 2 11/02/2024 11:18 AM EDT 11/02/2024 02/01/20 25 Active atorvastatin (LIPITOR) 40 MG tablet Take 1 tablet by mouth Every Night 90 tablet 11/02/2024 11:18 AM EDT 11/02/2024 02/01/20 25 Active losartan (COZAAR) 25 MG tablet Take 1 tablet by mouth Daily. 90 tablet 11/02/2024 11:18 AM EDT 11/02/2024 Active Active Problems Problem Noted Date Diagnosed Date A-fib 10/29/2024 CHF (congestive heart failure) 10/29/2024 BPH (benign prostatic hyperplasia) 10/29/2024 Essential hypertension 10/28/2024 Mixed hyperlipidemia 10/28/2024 Dementia 10/28/2024 Stroke-like symptoms 10/26/2024 Encounters Date Type Department Care Team Description Readmission Management [facility] [address] [place] [phone] Mirtha Iyer 5 Readmission Management [facility] [address] [place] [address] Isabel Sal RN 5 Readmission Management [facility] [address] [place] [address] Shweta German RN 5 9:30 AM EDT Anesthesia Event [facility] ENDO SUITES [address] [place] [address] Ajay Palomares MD 5 9:04 AM EDT - 5 9:38 AM EDT Surgery [facility] [address] [place] [address] Mian Garcia MD ESOPHAGOGASTRODUODENOSCOPY [75410 (CPT )] 5 7:03 PM EDT - 5 3:14 PM EDT Hospital Encounter [facility] 3F [address] [place] [address] Areli Nguyen MD Ramos, Angel Y, MD [...] Years Used Date Smoking Tobacco: Never Assessed [facility] Utilities Answer Date Recorded In the past 12 months has [employer], gas, oil, or water [employer] threatened to shut off services in your [...] GED or equivalent No 10/29/2024 Preferred Language Guinean 10/29/2024 Sex and Gender Information Value Date [...] Mass Index - - Plan of Treatment Health Maintenance Due Date Last Done Comments RSV Vaccine - Adults (1 - 1- dose 75+ series) 08/13/2010 ZOSTER VACCINE (2 of 2) 04/15/2021 02/18/2021, 02/05 COVID-19 Vaccine (2023-2 5 season) 2024 01/12/2024, 01/26/2023, 06/25/2020, Additional history exists ANNUAL PHYSICAL 12/25/2024 INFLUENZA VACCINE 01/16/2025 01/12/2024, , 02/23/2022, Additional history exists LIPID PANEL 10/27/2025 10/27/2024 TDAP/TD VACCINES (2 - Tdap) 04/08/203303/19, 03/17/2011, 04/18/2001, Additional history exists Pneumococcal Vaccine 50+ Completed 022, 05/21/2015, 02/16/2007, Additional history exists Procedures Procedure Name Priority Date/Time Associated Diagnosis Comments URINALYSIS, MICROSCOPIC ONLY Routine 10:12 AM EDT URINALYSIS W/ CULTURE IF INDICATED Routine 10/30/2024 10:12 AM EDT DC ESOPHAGOGASTRODUODENOSCOP Y TRANSORAL DIAGNOSTIC 10/29/2024 9:30 AM [...] Seen, 0-2 /HPF 10/30/2024 10:31 AM EDT [facility] WBC, UA 0-2 None Seen, 0-2 /HPF 10/30/2024 10:31 AM EDT [facility] Comment:Urine culture not in dicated. Bacteria, UA None Seen None Seen /HPF 10/30/2024 10:31 AM EDT [facility] Squamous Epithelial Cells, UA 0-2 None Seen, 0-2 /HPF 10/30/2024 10:31 AM EDT [facility] Hyaline Casts, UA None Seen None Seen /LPF 10/30/2024 10:31 AM EDT [facility] Methodology Automated Microscopy 10/30/2024 10:31 AM EDT [facility] Urine Urine specimen obtained by clean catch procedure / Unknown Collection / Unknown 10/30/2024 10:12 AM EDT 10/30/2024 10:12 AM EDT Che Cannonjose guadalupe Kiser P[employer]AGE DELIVERY RO[employer] SERVICE RUNNER URINE ORDERABLES F inal Result [facility]
[address] [place] [address], [place] [phone] * (ABNORMAL) Urinalysis With Culture If Indicated - Urine, Clean Catch (10/30/2024 10:12 AM EDT) Only the most recent of2 resultswithin the time period is included. Color, UA Yellow Yellow, Straw 10/30/2024 10:31 AM EDT [facility] Appearance, UA Clear Clear 10/30/2024 10:31 AM EDT [facility] pH, UA 7.0 5.0 - 8.0 10/30/2024 10:31 AM EDT [facility] Specific [place], UA 1.011 1.005 - 1.030 10/30/2024 10:31 AM EDT [facility] Glucose, UA Negative Negative 10/30/2024 10:31 AM EDT [facility] Ketones, UA Negative Negative 10/30/2024 10:31 AM EDT [facility] Bilirubin, UA Negative Negative 10/30/2024 10:31 AM EDT [facility] Blood, UA Negative Negative 10/30/2024 10:31 AM EDT [facility] Protein, UA 30 mg/dL (1+)(A) Negative 10/30/2024 10:31 AM EDT [facility] Leuk Esterase, UA Moderate (2+)(A) Negative 10/30/2024 10:31 AM EDT [facility] Nitrite, UA Negative Negative 10/30/2024 10:31 AM EDT [facility] Urobilinogen, UA 1.0 E.U./dL 0.2 - 1.0 E.U./dL 10/30/2024 10:31 AM EDT [facility] Urine Urine specimen obtained by clean catch procedure / Unknown Collection / Unknown 10/30/2024 10:12 AM EDT 10/30/2024 10:12 AM EDT Narrative [facility] - 10/30/2024 10:31 AM EDT In absence of clinical symptoms, the presence of pyuria, bacteria, and/or nitrites on the urinalysis result does not correlate with infection. Che Kiser P[employer]AGE DELIVERY [employer] SERVICE RUNNER URINE ORDERABLES F inal Result [facility]
[address] [place] [address], * Upper GI Endoscopy (10/29/2024 9:19 AM [...] - 10.80 10*3/mm3 10/28/2024 9:16 AM EDT [facility] RBC 5.42 4.14 - 5.80 10*6/mm3 10/28/2024 9:16 AM EDT [facility] Hemoglobin 14.9 13.0 - 17.7 g/dL 10/28/2024 9:16 AM EDT [facility] Hematocrit 43.1 37.5 - 51.0 % 10/28/2024 9:16 AM EDT [facility] MCV 79.5 79.0 - 97.0 fL 10/28/2024 9:16 AM EDT [facility] MCH 27.5 26.6 - 33.0 pg 10/28/2024 9:16 AM EDT [facility] MCHC 34.6 31.5 - 35.7 g/dL 10/28/2024 9:16 AM EDT [facility] RDW 15.1 12.3 - 15.4 % 10/28/2024 9:16 AM EDT [facility] RDW-SD 43.6 37.0 - 54.0 fl 10/28/2024 9:16 AM EDT [facility] MPV 10.9 6.0 - 12.0 fL 10/28/2024 9:16 AM EDT [facility] Platelets 168 140 - 450 10*3/mm3 10/28/2024 9:16 AM EDT [facility] Blood Venipuncture / Unknown 10/28/2024 8:42 AM EDT 10/28/2024 9:09 AM EDT us Saeed Monique MD LAB BLOOD ORDERABLES Final Res ult [facility]
[address] [place] [address], * Basic Metabolic Panel (10/28/2024 8:42 AM EDT) Glucose 85 65 - 99 mg/dL 10/28/2024 9:56 AM EDT [facility] BUN 21.0 8.0 - 23.0 mg/dL 10/28/2024 9:56 AM EDT [facility] Creatinine 1.10 0.76 - 1.27 mg/dL 10/28/2024 9:56 AM EDT [facility] Sodium 140 136 - 145 mmol/L 10/28/2024 9:56 AM EDT [facility] Potassium 4.0 3.5 - 5.2 mmol/L 10/28/2024 9:56 AM EDT [facility] Chloride 104 98 - 107 mmol/L 10/28/2024 9:56 AM EDT [facility] CO2 24.0 22.0 - 29.0 mmol/L 10/28/2024 9:56 AM EDT [facility] Calcium 9.2 8.6 - 10.5 mg/dL 10/28/2024 9:56 AM EDT [facility] BUN/Creatinine Ratio 19.1 7.0 - 25.0 10/28/2024 9:56 AM EDT [facility] Anion Gap 12.0 5.0 - 15.0 mmol/L 10/28/2024 9:56 AM EDT [facility] eGFR 64.2 >60.0 mL/min/1.7 3 10/28/2024 9:56 AM EDT [facility] Blood Venipuncture / Unknown 10/28/2024 8:42 AM EDT 10/28/2024 9:09 AM EDT [facility] - 10/28/2024 9:56 AM [...] MD LAB BLOOD ORDERABLES Final Res ult [facility]
[address] [place] [address], * ECG 12 Lead QT Measurement (10/28/2024 [...] No previous ECGs available Confirmed by ALBA CHIU MD ([id number]) on 10/29/2024 6:41:44 AM Referred By: Confirmed By: ALBA CHIU MD Procedure Note Alba Chiu MD - 10/29/2024 Test Reason : [...] No previous ECGs available Confirmed by ALBA CHIU MD ([id number]) on 10/29/2024 6:41:44 AM Referred By: Confirmed By: ALBA CHIU MD Gal Weiner PA-C ECG ORDERABLES Emma l Result ECG * (ABNORMAL) CBC Auto Differential (10/27/2024 11:54 PM EDT) WBC 5.07 3.40 - 10.80 10*3/mm3 10/28/2024 12:10 AM EDT [facility] RBC 5.20 4.14 - 5.80 10*6/mm3 10/28/2024 12:10 AM EDT [facility] Hemoglobin 14.6 13.0 - 17.7 g/dL 10/28/2024 12:10 AM [facility] Hematocrit 41.5 37.5 - 51.0 % 10/28/2024 12:10 AM [facility] MCV 79.8 79.0 - 97.0 fL 10/28/2024 12:10 AM [facility] MCH 28.1 26.6 - 33.0 pg 10/28/2024 12:10 AM [facility] MCHC 35.2 31.5 - 35.7 g/dL 10/28/2024 12:10 AM [facility] RDW 15.6(H) 12.3 - 15.4 % 10/28/2024 12:10 AM [facility] RDW-SD 44.8 37.0 - 54.0 fl 10/28/2024 12:10 AM [facility] MPV 10.3 6.0 - 12.0 fL 10/28/2024 12:10 AM [facility] Platelets 161 140 - 450 10*3/mm3 10/28/2024 12:10 AM [facility] Neutrophil % 33.3(L) 42.7 - 76.0 % 10/28/2024 12:10 AM [facility] Lymphocyte % 43.6 19.6 - 45.3 % 10/28/2024 12:10 AM [facility] Monocyte % 17.4(H) 5.0 - 12.0 % 10/28/2024 12:10 AM [facility] Eosinophil % 4.3 0.3 - 6.2 % 10/28/2024 12:10 AM [facility] Basophil % 1.0 0.0 - 1.5 % 10/28/2024 [facility] Immature Grans % 0.4 0.0 - 0.5 % 10/28/2024 12:10 AM [facility] Neutrophils, Absolute 1.69(L) 1.70 - 7.00 10*3/mm3 10/28/2024 12:10 AM EDT [facility] Lymphocytes, Absolute 2.21 0.70 - 3.10 10*3/mm3 10/28/2024 12:10 AM EDT [facility] Monocytes, Absolute 0.88 0.10 - 0.90 10*3/mm3 10/28/2024 12:10 AM EDT [facility] Eosinophils, Absolute 0.22 0.00 - 0.40 10*3/mm3 10/28/2024 12:10 AM EDT [facility] Basophils, Absolute 0.05 0.00 - 0.20 10*3/mm3 10/28/2024 12:10 AM EDT [facility] Immature Grans, Absolute 0.02 0.00 - 0.05 10*3/mm3 10/28/2024 12:10 AM EDT [facility] nRBC 0.0 0.0 - 0.2 /100 WBC 10/28/2024 12:10 AM EDT [facility] Blood Venipuncture / Unknown 10/27/2024 11:54 PM EDT 10/28/2024 12:08 AM EDT Gal Weiner PA-C LAB BLOOD ORDERABLES Final Result Performing Organization Address City/State/[facility] Co de Phone Number [facility]
[address] [place] [address], * Magnesium (10/27/2024 11:54 PM EDT) Magnesium 2.2 1.6 - 2.4 mg/dL 10/28/2024 12:35 AM EDT [facility] Blood Venipuncture / Unknown 10/27/2024 11:54 PM EDT 10/28/2024 12:04 AM EDT Gal Weiner PA-C LAB BLOOD ORDERABLES Final Result Performing Organization Address City/State/[facility] de Phone Number [facility]
[address] [place] [address], * Lactic Acid, Plasma (10/27/2024 11:54 PM EDT) Only the most recent of2 resultswithin the time period is included. Lactate 1.3 0.5 - 2.0 mmol/L 10/28/2024 12:32 AM EDT [facility] Comment:Falsely depressed re sults may occur on samples drawn from patients receiving N-Acetylcysteine (NAC) or Metamizole. Blood Venipuncture / Unknown 10/27/2024 11:54 PM EDT 10/28/2024 12:04 AM EDT Gal Weiner PA-C LAB BLOOD ORDERABLES Final Result Performing Organization Address [facility] de Phone Number [facility]
[address] [place] [address], * (ABNORMAL) Comprehensive Metabolic Panel (10/27/2024 11:54 PM EDT) Pathologist [facility] Glucose 80 65 - 99 mg/dL 10/28/2024 12:35 AM EDT [facility] BUN 21.7 8.0 - 23.0 mg/dL 10/28/2024 12:35 AM EDT [facility] Creatinine 1.08 0.76 - 1.27 mg/dL 10/28/2024 12:35 AM EDT [facility] Sodium 137 136 - 145 mmol/L 10/28/2024 12:35 AM EDT [facility] Potassium 4.1 3.5 - 5.2 mmol/L 10/28/2024 12:35 AM EDT [facility] Chloride 103 98 - 107 mmol/L 10/28/2024 12:35 AM EDT [facility] CO2 19.8(L) 22.0 - 29.0 mmol/L 10/28/2024 12:35 AM [facility] Calcium 9.4 8.6 - 10.5 mg/dL 10/28/2024 12:35 AM [facility] Total Protein 7.5 6.0 - 8.5 g/dL 10/28/2024 12:35 AM [facility] Albumin 4.3 3.5 - 5.2 g/dL 10/28/2024 12:35 AM [facility] ALT (SGPT) 23 1 - 41 U/L 10/28/2024 12:35 AM [facility] AST (SGOT) 29 1 - 40 U/L 10/28/2024 12:35 AM [facility] Alkaline Phosphatase 71 39 - 117 U/L 10/28/2024 12:35 AM [facility] Total Bilirubin 0.4 0.0 - 1.2 mg/dL 10/28/2024 12:35 AM [facility] Globulin 3.2 gm/dL 10/28/2024 12:35 AM [facility] Comment:Calculated Result A/G Ratio 1.3 g/dL 10/28/2024 12:35 AM [facility] BUN/Creatinine Ratio 20.1 7.0 - 25.0 10/28/2024 12:35 AM [facility] Anion Gap 14.2 5.0 - 15.0 mmol/L 10/28/2024 12:35 AM [facility] eGFR 65.6 >60.0 mL/min/1.7 3 10/28/2024 12:35 AM [facility] Blood Venipuncture / Unknown 10/27/2024 11:54 PM EDT 10/28/2024 12:04 AM [facility] - 10/28/2024 12:35 AM EDT [...] Weiner PA-C LAB BLOOD ORDERABLES Final Result [facility]
[address] [place] [address], * MRI Brain Without Contrast (10/27/2024 7:22 PM EDT) Anatomical Region Laterality Modality Head, Neck N/A Magnetic Resonan ce 10/27/2024 10:1 5 PM EDT Impressions 10/27/2024 10:17 PM EDT Impression: Advanced chronic and age-related changes are noted as above. There is otherwise no evidence of acute infarct, hemorrhage, mass or mass effect. Electronically Signed: Saulo Romo MD 10/27/2024 10:17 PM EDT Workstation ID: [id number] Narrative 10/27/2024 10:17 PM EDT MRI BRAIN [...] MD 10/27/2024 10:17 PM EDT Workstation ID: [id number] Lamont Hernandez PA-C IMSarah MRI ORDERABLES Final Res ult * POC Glucose Once (10/27/2024 5:38 PM EDT) Only the most recent of3 resultswithin the time period is included. Glucose 117 70 - 130 mg/dL 10/27/2024 5:39 PM EDT [facility] Blood 10/27/2024 5:38 PM EDT 10/27/2024 5:39 PM EDT Saeed Monique MD POINT OF CARE TEST ORDERABLES Final Result [facility]
[address] [place] [address], * Urine Drug Screen - Urine, Clean Catch (10/27/2024 3:18 PM EDT) [facility] Signature THC, Screen, Urine Negative Negative 2024 4:17 PM EDT [facility] Phencyclidine (PCP), Urine Negative Negative 10/27/2024 4:17 PM EDT [facility] Cocaine Screen, Urine Negative Negative 10/27/2024 4:17 PM EDT [facility] Methamphetamine, Ur Negative Negative 10/27 4:17 PM EDT [facility] Opiate Screen Negative Negative 10/27/2024 4:17 PM EDT [facility] Amphetamine Screen, Urine Negative Negative 10/27/2024 4:17 PM EDT [facility] Benzodiazepine Screen, Urine Negative Negative 10/27/2024 4:17 PM EDT [facility] Tricyclic Antidepressants Screen Negative Negative 10/27/2024 4:17 PM EDT [facility] Methadone Screen, Urine Negative Negative 10/27/2024 4:17 PM EDT [facility] Barbiturates Screen, Urine Negative Negative 10/27/2024 4:17 PM EDT [facility] Oxycodone Screen, Urine Negative Negative 10/27/2024 4:17 PM EDT [facility] Buprenorphine, Screen, Urine Negative Negative 10/27/2024 4:17 PM T [facility] Urine Urine specimen obtained by clean catch procedure / Unknown Collection / Unknown 10/27/2024 3:18 PM EDT 10/27/2024 3:27 PM EDT [facility] - 10/27/2024 4:17 PM EDT Cutoff [...] URINE ORDERABLES Final Result Performing Organization Address [facility] de Phone Number [facility]
[address] [place] [address], * Fentanyl, Urine - Urine, Clean Catch (10/27/2024 3:18 PM EDT) [facility] Signature Fentanyl, Urine Negative Negative 10/27/2024 4:39 PM EDT [facility] Urine Urine specimen obtained by clean catch procedure / Unknown Collection / Unknown 10/27/2024 3:18 PM EDT 10/27/2024 3:27 PM EDT Narrative [facility] - 10/27/2024 4:39 PM EDT [...] URINE ORDERABLES Final Result Performing Organization Address [facility] de Phone Number [facility]
[address] [place] [address], [place] [phone] * EEG AWAKE OR DROWSY PORTABLE (10/27/2024 12:15 PM EDT) [facility] NEUROLOGY - 10/27/2024 2:48 PM [...] ORDERABLES Fi nal Result Performing Organization Address [facility] Co de Phone Number NEUROLOGY * Hemoglobin A1c (10/27/2024 9:46 AM EDT) Hemoglobin A1C 5.33 4.80 - 5.60 % 10/27/2024 12:28 PM EDT [facility] Blood Venipuncture / Unknown 10/27/2024 9:46 AM EDT 10/27/2024 10:40 AM EDT Narrative [facility] - 10/27/2024 12:28 PM EDT Hemoglobin A1C Ranges: Increased Risk for Diabetes 5.7% to 6.4% Diabetes >= 6.5% Diabetic Goal < 7.0% Lamont Hernandez PA-C LAB BLOOD ORDERABLES Final R esult Performing Organization Address City/[facility]/ZIP Co de Phone Number [facility]
[address] [place] [address], * Lipid Panel (10/27/2024 9:46 AM EDT) Total Cholesterol 138 0 - 200 mg/dL 10/27/2024 11:15 AM EDT [facility] Triglycerides 42 0 - 150 mg/dL 10/27/2024 11:15 AM EDT [facility] HDL Cholesterol 56 40 - 60 mg/dL 10/27/2024 11:15 AM EDT [facility] LDL Cholesterol 72 0 - 100 mg/dL 10/27/2024 11:15 AM EDT [facility] VLDL Cholesterol 10 5 - 40 mg/dL 10/27/2024 11:15 AM EDT [facility] LDL/HDL Ratio 1.31 10/27/2024 11:15 AM EDT [facility] Blood Venipuncture / Unknown 10/27/2024 9:46 AM EDT 10/27/2024 10:39 AM EDT [facility] - 10/27/2024 11:15 AM EDT Cholesterol [...] PA-C LAB BLOOD ORDERABLES Final R esult [facility]
[address] [place] [address], * (ABNORMAL) CK (10/26/2024 11:21 PM EDT) Creatine Kinase 245(H) 20 - 200 U/L 10/27/2024 12:01 AM EDT [facility] Blood Venipuncture / Unknown 10/26/2024 11:21 PM EDT 10/26/2024 11:34 PM EDT us May Barbara PACKAGE DELIVERY ROOM SERVICE RUNNER LAB BLOOD ORDERABLES Fi nal Result [facility]
[address] [place] [address], [place] [phone] * CT Outside Head (10/26/2024 12:10 AM [...] 3 Months Insurance [employer] Care Teams Junior Web Designer Relationship Specialty Start Date End Date Provider, [place] [address] PCP - General 10/26/24
--- OUTSIDE RECORDS SUMMARY | 2024-12-27 10:03 | XMS_ITS | Encounter Summary ---
Author Organization [facility] Address [address] [address] Care Team Providers Care Tourist Home Keeper Name Role Phone Provider, No Known Primary Care Provider Unavail able Encounter Details Date Type Department Care Team (Late st Contact Info) Description 11/09/2024 Readmission Management [facility] [address] [place] [phone] Isabel Sal RN Social History Tobacco Use Types Packs/Day Years Used Date Smoking Tobacco: Never Assessed [facility] Utilities Answer Date Recorded In the past 12 months has [employer], gas, oil, or water [employer] threatened to shut off services in your [...] GED or equivalent No 10/29/2024 Preferred Language [place] 10/29/2024 Sex and Gender Information Value Date Recorded Sex Assigned at Not on file Legal Sex Male 4:14 PM EDT Gender Identity Not on file Sexual Orientation Not on file documented as of this encounter Miscellaneous Notes * Outreach Note - Isabel Sal RN - 11/09/2024 12:15 PM EDT Medical Week 1 Survey Flowsheet Row [facility] the [facility] of the [...] No Comments regarding PCP PCP is with [facility], per dtr the nurse manager case from [facility] is working on all the f/uappts for the pt at [facility] What is the Home health agency? HH comes thru [facility] to pt's home. Has home health visited [...] on filedocumented in this encounter Care Teams Tourist Home Keeper Relationship Specialty Start Date End Date Provider, [place] [address] PCP - General 10/26/24 documented as of this encounter
[2024-12-27 10:14] LABS: Bacteria,Urine Trace /lpf; RBC,Urine Occasional #/hpf (0-3); Squamous Epithelial Cell,Urine Occasional #/hpf (0-5); WBC,Urine Occasional #/hpf (0-3)
[2024-12-27 10:15] LABS: Creatine Kinase 373 U/L (55-170)
--- NOTE | 2024-12-27 10:23 | CT_ITS ---
FINAL REPORT TECHNIQUE: Thin section axial images were obtained from the aortic arch to the skull base after intravenous contrast injection per CTA protocol. Multiplanar reconstruction images were obtained. Exam was performed using dose reduction techniques and the ALARA principle. CLINICAL HISTORY: facial wekaness COMPARISON: 11/29/2024 FINDINGS: Exam is nondiagnostic for evaluation of the arterial systems of the head and neck. There is very little contrast within the arteries. No comment can be made on stenosis or occlusion. No mass, lymphadenopathy, or fluid collection in the neck. There is no acute abnormality in the soft tissues of the neck on this essentially noncontrast exam. The head is also essentially a noncontrast exam with the exception of a small amount of contrast in the bilateral MCAs. No comment can be made on stenosis or large vessel occlusion. The remainder of the brain is unchanged since exam earlier today. IMPRESSION: Nondiagnostic exam with respect to evaluation of the vasculature of the head and neck. No acute soft tissue abnormality of the neck No significant change in the appearance of the head since the noncontrast exam performed earlier today. Reviewed, Interpreted and Dictated by Suki Swanson MD Transcribed by Vita Vela Authenticated and [facility]
--- NOTE | 2024-12-27 10:23 | CT_ITS ---
FINAL REPORT TECHNIQUE: Following the administration of intravenous contrast, helically acquired axial multidetector CT images were obtained from the vertex to the aortic arch. Multiplanar, MIP and 3-D reconstructions were performed. This study was performed with techniques to keep radiation doses as low as reasonably achievable, (ALARA). Individualized dose reduction techniques using automated exposure control or adjustment of mA and/or kV according to the patient's size were employed. CLINICAL HISTORY: right facial weakness COMPARISON: 11/29/2024 FINDINGS: Exam is nondiagnostic for evaluation of the arterial systems of the head and neck. There is very little contrast within the arteries. No comment can be made on stenosis or occlusion. No mass, lymphadenopathy, or fluid collection in the neck. There is no acute abnormality in the soft tissues of the neck on this essentially noncontrast exam. The head is also essentially a noncontrast exam with the exception of a small amount of contrast in the bilateral MCAs. No comment can be made on stenosis or large vessel occlusion. The remainder of the brain is unchanged since exam earlier today. IMPRESSION: Nondiagnostic exam with respect to evaluation of the vasculature of the head and neck. No acute soft tissue abnormality of the neck No significant change in the appearance of the head since the noncontrast exam performed earlier today. Reviewed, Interpreted and Dictated by Suki Swanson MD Transcribed by Vita Vela Authenticated and [facility]
--- NOTE | 2024-12-27 10:32 | XR_ITS ---
FINAL REPORT CLINICAL HISTORY: Fall COMPARISON: None FINDINGS: SINGLE VIEW PELVIS: A single view of the pelvis was obtained. There is no acute fracture of the pelvis. 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 There is contrast in the urinary bladder. Soft tissues are unremarkable. IMPRESSION: Degenerative changes without acute abnormality. Reviewed, Interpreted and Dictated by Suki Swanson MD Transcribed by Carmenza Franks Authenticated and . [facility]
--- NOTE | 2024-12-27 10:32 | CT_ITS ---
FINAL REPORT TECHNIQUE: Thin section axial images were obtained through the cervical spine without contrast. Multiplanar reconstruction images were obtained from the axial data. Exam was performed using dose reduction techniques. CLINICAL HISTORY: fall COMPARISON: 12/28/2019 FINDINGS: Exam is somewhat limited due to positioning in the gantry. There is no acute fracture or acute malalignment of the cervical spine. There is no evidence of unilateral or bilateral facet lock. There is mild degenerative disc disease which has progressed since the prior. Vertebral body height is preserved. No acute paraspinal abnormality is identified. IMPRESSION: Somewhat limited exam due to positioning in the gantry. No fracture identified. Multilevel degenerative disc disease has progressed. Reviewed, Interpreted and Dictated by Suki Swanson MD Transcribed by Vita Vela Authenticated and [facility]
--- NOTE | 2024-12-27 10:45 | PC.NURSE ---
ER bladder scanned pateint and found 2L of urine, rn placed castaneda
[2024-12-27] MEDS: IOPAMIDOL-370 (76%);100ML BOTTLE 80 ML IV ×2 (11:09→11:26)
[2024-12-27] MEDS: SODIUM CHLORIDE 0.9% 10ML SYR (RAD ONLY) 10 ML IV ×2 (11:09→11:26)
[2024-12-27] MEDS: 0.9 % SODIUM CHLORIDE 50 ML VIAL IV ×2 (11:09→11:26)
--- NOTE | 2024-12-27 11:22 | CT_ITS ---
FINAL REPORT TECHNIQUE: Axial imaging of the chest is obtained after the administration of contrast. 3-D MIP reformatted images were also obtained and reviewed per PE protocol. CLINICAL HISTORY: AMS, cp COMPARISON: 11/29/2024 FINDINGS: The pulmonary arteries are well filled. There is no evidence of pulmonary embolus. There is no or aortic dissection although exam is somewhat limited by contrast bolus timing. The heart is enlarged. There is no mediastinal, hilar, or axillary lymphadenopathy. Bilateral pleural effusions have increased in size. There are new nodules within the left lower lobe. Index lesion on image 52 measures 13 mm. Given the development of less than 1 month, likely infectious or inflammatory. Ground glass opacities in the lungs are slightly worse, may be related to pulmonary edema. Limited evaluation of the upper abdomen reveal multiple bilateral renal cysts which are similar to prior. IMPRESSION: No evidence of pulmonary embolism or aortic dissection. Enlarged heart with worsening effusion and ground glass opacities, favor CHF. Several left lower lobe nodules, given the development of less than 1 month these are likely infectious or inflammatory. Reviewed, Interpreted and Dictated by Suki Swanson MD Transcribed by Vita Vela Authenticated and [facility]
--- NOTE | 2024-12-27 12:16 | PC.NURSE ---
pt has only had 500 ml out of urine
--- NOTE | 2024-12-27 13:17 | PC.NURSE ---
Called [facility] for transfer
--- NOTE | 2024-12-27 13:30 | PC.NURSE ---
[facility] called and advised they are not accepting tx's at this exact moment, but advised us to follow up in 4 hours to see if they are accepting at that time. Call taken by Maria Luisa Snider
--- NOTE | 2024-12-27 13:50 | CA_ITS ---
APPROVED REPORT EXAM: Comprehensive 2D, Doppler, and color-flow Echocardiogram Can Runner: Allie San RT(R) Ht: 5 ft 8 in Wt: 175lbs BSA: 1.93 BP: 178/123 mmHg Indications: NSTEMI Echo Enhancing Agent Indication: Endocardial border delineation Agent(s) / Amount(s) Used: Definity, Definity 2 cc 2D Dimensions Left Atrium 4.12 cm M: 3.0 - 4.0 LA Volume 42.90 mL LVOT 2.11 cm (M/F) 1.5-2.5 LA Volume Index 22.23 mL/m2 (M/F) 16-34 EF AP4 11.10 % GL Strain -4.8 % M-Mode Dimensions RVDd 2.65 cm (0.9-2.6) LVDd 5.72 cm (3.5-5.7) Ao Diam 3.39 cm (2.0-3.7) LVDs 5.27 cm (3.5-5.7) IVSd 1.06 cm (0.6-1.1) PWd 0.53 cm (0.6-1.1) EF (Teich) 17.20% FS 7.90% EDV (Teich) 161.30 mL ESV (Teich) 133.60 mL Tricuspid Valve TR P. Velocity 362.00 cm/s Left Ventricle The left ventricle is normal size. Left ventricular systolic function is severely reduced. There is increased left ventricular wall thickness. There is severe global hypokinesis. There is akinesis of the septal, anteroseptal, and inferoseptal LV agarwal. The left ventricular diastolic function is indeterminate. No left ventricle thrombus noted on this study. LVEF is 20-25% Right Ventricle The right ventricle is normal size. The right ventricular systolic function is moderately reduced. Atria The left atrium is mildly dilated. The right atrium is mildly dilated. There is no color Doppler evidence of interatrial shunt. Aortic Valve The aortic valve is mildly thickened. There is no hemodynamically significant aortic valvular stenosis. Mild aortic regurgitation is present. Mitral Valve The mitral valve is mildly thickened. No evidence of mitral valve stenosis. Moderate to severe mitral regurgitation is present. Tricuspid Valve The tricuspid valve leaflets are thin and pliable. Mild tricuspid regurgitation. RVSP is 50-55 mmHg. Pulmonic Valve The pulmonary valve is grossly normal in structure. Mild pulmonic valve regurgitation is present. Great Vessels The aortic root is normal in size. IVC is normal in size and collapses >50% with inspiration. Pericardium There is no pericardial effusion. Pleural effusion is present. Other Information Study Quality: Fair Conclusion Severe reduction in LV systolic function (LVEF 20-25%). Akinesis of the septal, anteroseptal, and inferoseptal LV agarwal. Normal RV size with moderate reduction in RV function. Biatrial dilation. Moderate to severe MR. Mild TR, mild AI, mild PI. Markedly elevated RVSP 50-55 mmHg. Pleural effusion. Electronically signed by : Lakesha Soares MD 12/27/2024 15:16:01
[2024-12-27 13:56] LABS: Reflex Lactic Add Lactic Reflex
[2024-12-27 14:07] LABS: NT Pro Brain Natriuretic Pep. 23700 pg/mL (0-450)
--- NOTE | 2024-12-27 14:07 | PC.NURSE ---
supervisor hardboard contacted for bed
[2024-12-27 14:21] LABS: C-Reactive Protein 23.1 mg/L (0-4)
[2024-12-27 14:27] LABS: NT Pro Brain Natriuretic Pep. 23400 pg/mL (0-450)
--- NOTE | 2024-12-27 14:30 | P.HP_ITS ---
History of Present Illness *Admission Date: 12/27/24 *Reason for visit:: Found down at home *History of present illness: Oumar Burnham is a 89-year-old male with an unclear medical history presents via EMS due to altered mental status. Per ED provider and EMS, daughter requested caregiver to check on patient as she had not heard from him in a few days. Upon arrival, caregiver found patient to be lying on the floor incomprehensible, covered with his own urine, and therefore EMS was called. Patient was recently transferred to [facility] for suspected left posterior frontal stroke, but upon my discussion with the patient he states that this was not a stroke. Will obtain records from [facility]. Patient was drowsy on my evaluation, but would answer a few questions and otherwise doze off. Denies chest pain, shortness of breath but does endorse some abdominal p ain. Workup in the ED significant for VBG pH 7.28, lactic acid 2.8, BNP 23,000, CK is 373, UA positive for LE, blood, and trace bacteria. CTA chest suggestive of worsening bilateral pleural effusions, enlarged heart, and ground glass opacities favoring pulmonary edema left lower lobe nodules were also seen, interval development within the last month. Patient was given ceftriaxone 2 g in the ED. Given these findings, ED provider discussed case with manage decided to admit patient for heart failure exacerbation, acute metabolic encephalopathy, possible community-acquired pneumonia. [facility] Disclaimer: The information contained in this section may have been updated after the patient was seen, as this information can be updated by other users. Medical History UTI (urinary tract infection) BPH (benign prostatic hyperplasia) Family History (Updated 12/27/24 @ 14:52 by Kiki Dye RN) Other Heart failure Hypertension Stroke Social History (Updated 12/27/24 @ 14:57 by Kiki Dye RN) Smoking Status: Former smoker tobacco type: cigarettes alcohol intake: former substance use type: denies use current occupational status: retired and other Travel in the last 8 weeks?: None household members: none housing: apartment Other Medical History Have you received the Flu Vaccine for this season: No Have you received the Pneumonia Vaccine: No Meds Home Medications and Allergies Home Medications ?Medication ?Instructions ?Recorded ?Confirmed ?Type tamsulosin 0.4 mg capsule (Flomax) 0.8 mg PO HS Prosta te 04/06/22 06/06/24 History amlodipine 5 mg tablet (Norvasc) 5 mg PO DAILY Hyperte nsion #30 tabs 04/08/22 06/06/24 Rx aspirin 325 mg tablet,delayed 325 mg PO DAILY Heart he alth #30 04/08/22 06/06/24 Rx release tabs carvedilol 6.25 mg tablet 6.25 mg PO BID #60 tabs 03/1906/06/24 Rx diclofenac sodium 1 % topical gel 2 g topical Q6HP PRN Pain #100 04/08/22 06/06/24 Rx grams diltiazem HCl 360 mg 360 mg PO DAILY Hypertension #30 04/08/22 06/06/24 Rx tablet,extended release 24 hr tabs finasteride 5 mg tablet (Proscar) 5 mg PO DAILY Prosta te #30 tabs 04/08/22 06/06/24 Rx omeprazole 20 mg tablet,delayed 40 mg (2 x 20 mg) PO B ID Acid 04/08/22 06/06/24 Rx release reflux #30 tabs potassium chloride 20 mEq 20 meq PO DAILY #30 tabs 06/06/24 Rx tablet,extended release(part/cryst) rosuvastatin 10 mg tablet (Crestor) 5 mg (1/2 x 10 mg) PO HS 04/08/22 06/06/24 Rx Cholesterol #30 tabs bisacodyl 10 mg rectal suppository 10 mg VT DAILY PRN constipation 03/06/23 06/06/24 Rx (Dulcolax (bisacodyl)) #12 ea amoxicillin 875 mg-potassium 1 tab PO BID #20 tabs Rx clavulanate 125 mg tablet levofloxacin 750 mg tablet 750 mg PO DAILY 7 days #7 t abs 07/28/24 Rx polyethylene glycol 3350 17 17 g PO DAILY PRN constipa tion 07/28/24 Rx gram/dose oral powder (Miralax) #510 grams sennosides 8.6 mg tablet 8.6 mg PO DAILY #30 tabs 04/11 Rx New Prescriptions to Start Prescriptions: Allergies Allergy/AdvReac Type Severity Reaction Status Date / Time No Known Allergies Allergy Verified 06/06/24 10:17 Exam Data for Last 24 hours Vital signs and Labs for Last 24 Hours: Temp Pulse Resp BP Pulse Ox O2 Del Method 98.1 F 119 H 20 161/95 H 98 Room Air 12/27/24 14:25 12/27/24 14:25 12/27/24 14:25 12/27/24 14:12/27/24 12:30 12/27/24 14:25 Laboratory Results - last 24 hr 12/27/24 09:30: WBC 4.8, RBC 4.79, Hgb 13.7 L, Hct 38.9 L, MCV 81.2, MCH 28.6, MCHC 35.2, RDW 15.5, Plt Count 141 L, MPV 10.7 H, Neut % (Auto) 73.7, Lymph % (Auto) 12.2, [place] % (Auto) 13.5 H, Eos % (Auto) 0.0 L, Baso % (Auto) 0.4, Neut # (Auto) 3.6, Lymph # (Auto) 0.6 L, [place] # (Auto) 0.7, Eos # (Auto) 0.0, Baso # (Auto) 0.0, Sodium 140, Potassium 4.1, Chloride 105, Carbon Dioxide 27, Anion Gap 12.1, BUN 19, Creatinine 1.20, Estimated Creat Clear 47, Estimated GFR 57 L, Est GFR ( Amer) 69, Glucose 128 H, Calcium 8.9, Total Bilirubin 1.1, AST 44, ALT 64, Alkaline Phosphatase 98, Total Creatine Kinase 373 H, NT-Pro-B Natriuret Pep 20077 H, Total Protein 7.0, Albumin 4.1, Globulin 2.9, Albumin/Globulin Ratio 1.4 12/27/24 09:34: POC Glucose 111 H 12/27/24 09:45: Urine Color Yellow, Urine Appearance Clear, Urine pH 6.0, Ur Specific [place] 1.020, Urine Protein 2+ A, Urine Glucose (UA) Negative, Urine Ketones Trace, Urine Blood 3+ A, Urine Nitrate Negative, Urine Bilirubin Negative, Urine Urobilinogen 0.2, Ur Leukocyte Esterase 1+ A, Urine RBC Occasional, Urine WBC Occasional, Ur Squamous Epith Cells Occasional, Urine Bacteria Trace 12/27/24 09:50: VBG pH 7.28 L, VBG pCO2 45.3, VBG pO2 29.4, VBG HCO3 20.6 L, VBG Total CO2 22.0 L, VBG O2 Saturation 49.7 L, VBG Base Excess -6.3 L, VBG Lactic Acid 2.8 H I & O for Last 24 hours: Intake & Output 12/24/24 12/25/24 12/26/24 12/27/24 23:59 23:59 23:59 23:59 Weight 79.379 kg Constitutional Constitutional: no acute distress Comments: Drowsy *Routine HEENT Exam Head: Present normocephalic Eye: Present EOMI and PERRL ENT: Present mucous membranes moist *Routine Neck Exam Neck: Present supple; Absent lymphadenopathy *Routine Respiratory Exam Respiratory: Present CTA bilaterally *Routine Cardiovascular Exam Cardiovascular: Present RRR *Routine Abdominal Exam Abdominal: Present soft and normoactive bowel sounds; Absent tenderness *Routine Rectal Exam Rectal:: deferred *Routine Genitalia Exam Genitalia:: deferred *Routine Extremities Exam Extremities: Absent cyanosis, clubbing or edema *Routine Skin Exam Skin: Present warm; Absent rash *Routine Neurological Exam Neurological: Present alert Assessment and Plan *Assessment and plan (1) Acute UTI: Status: Acute Category: Medical Code(s): N39.0 - Urinary tract infection, site not specified (2) Ischemic stroke of frontal lobe: Status: Acute Category: Medical Code(s): I63.9 - Cerebral infarction, unspecified (3) HFrEF (heart failure with reduced ejection fraction): Status: Acute Category: Medical Code(s): I50.20 - Unspecified systolic (congestive) heart failure Plan Oumar Burnham is a 89-year-old male with an unclear medical history presents via EMS due to altered mental status. Per ED provider and EMS, daughter requested caregiver to check on patient as she had not heard from him in a few days. Upon arrival, caregiver found patient to be lying on the floor incomprehensible, covered with his own urine, and therefore EMS was called. Patient was recently transferred to [facility] for suspected left posterior frontal stroke, but upon my discussion with the patient he states that this was not a stroke. Will obtain records from [facility]. Patient was drowsy on my evaluation, but would answer a few questions and otherwise doze off. Denies chest pain, shortness of breath but does endorse some abdominal pain. Workup in the ED significant for VBG pH 7.28, lactic acid 2.8, BNP 23,000, CK is 373, UA positive for LE, blood, and trace bacteria. CTA chest suggestive of worsening bilateral pleural effusions, enlarged heart, and ground glass opacities favoring pulmonary edema left lower lobe nodules were also seen, interval development within the last month. Patient was given ceftriaxone 2 g in the ED. Given these findings, ED provider discussed case with manage decided to admit patient for heart failure exacerbation, acute metabolic encephalopathy, possible community-acquired pneumonia. #HFrEF exacerbation #Bilateral pleural effusions #Hypertension ? Initial BNP 23,000 with pulmonary edema seen on CTA chest 12/27/2024. ? ECHO shows LVEF 20 to 25%, akinesis of septal, anteroseptal, inferoseptal LV agarwal, moderate to severe MR, elevated RVSP 50 to 55 mmHg. ? Discussed case with cardiology, recommend aggressive IV diuresis overnight and follow-up response. If patient does not have a good response, will consider milrinone tomorrow. Avoid beta-blockers at this time, high risk for cardiogenic shock. ? Given IV Lasix 60 mg, spironolactone 25 mg, follow-up urine output, renal function, electrolytes. ? Started Entresto 24/26 mg given consistent elevated diastolic pressures in the 100s. Will consider further GDMT with cardiology consultation. ? Cardiology consulted, pending further recommendations. ? Follow-up troponin, TSH, lipid panel, A1c. ? Follow-up morning CMP. #Acute metabolic encephalopathy #Suspected UTI ? UA grossly abnormal, urine culture pending. ? Continue IV ceftriaxone daily, follow-up cultures. #Pulmonary nodules ? CTA chest suggestive of left lower lobe nodules with interval development in the last month. ? Pulmonology consulted, pending further recommendations. ? Continue ceftriaxone 2 g daily, doxycycline 100 mg twice daily pending pulmonology evaluation. #Rhabdomyolysis ? Initial CK 373, no renal dysfunction at this time. ? Continue conservative management at this time. ? Follow-up on CK. #Possible chronic stroke ? Recently transferred to [facility] for left frontal CVA. Will obtain records. ? Started aspirin 81 mg, Plavix 75 mg, atorvastatin 40 mg. ? Patient does not know which medications he takes, pending reconciliation by pharmacy at this time. Full code DVT prophylaxis: Lovenox 40 mg
[2024-12-27 14:33] LABS: Procalcitonin 0.057 ng/mL (0.0-2.0)
[2024-12-27 14:41] LABS: Lactic Acid Follow Up (RFLX 1) 1.9 mmol/L (0.7-2.1)
[2024-12-27] MEDS: DEFINITY US ECHO CONTRAST 2ML INJ 2 MG IV (14:43)
[2024-12-27] MEDS: FUROSEMIDE 40MG/4ML VIAL 40 MG IV (15:21)
[2024-12-27] MEDS: DOXYCYCLINE HYCL 100 MG TABLET PO ×2 (15:22→21:02)
--- NOTE | 2024-12-27 15:49 | PC.NURSE ---
Pt not able to give information on home medications. Spoke with daughter, Saranya on the phone. Pt has medications filled at [facility]. She states she does not have medication list and will not be able to bring his home meds until Tuesday because of no transportation. Saranya also stated that pt was recently a pt at [facility].
[2024-12-27 19:14] LABS: Troponin I 0.09 ng/ml (0.00-0.034)
[2024-12-27] MEDS: SPIRONOLACTONE 25MG TABLET 25 MG PO (19:31)
[2024-12-27] MEDS: SACUBITRIL/VALSARTAN 24-26MG TABLET 1 EACH PO (19:31)
[2024-12-28] VITALS (8 sets, daily range): BP systolic 106–132; BP diastolic 55–73; PULSE 74–109; RESP 14–18; TEMP 36.5–37.4; O2SAT 92–97; BMI 22.8
[2024-12-28 05:59] LABS: Hematocrit 35.4 % (42.0-52.0); Hemoglobin 12.4 g/dL (14.1-18.0); Immature Granulocytes % 0.2 %; Mean Corpuscular HGB Conc 35.0 g/dL (31.8-35.4); Mean Corpuscular Hemoglobin 27.7 pg (27.0-31.2); Mean Corpuscular Volume 79.0 fl (80-94); Nucleated Red Blood Cells % 0 %; Platelet Count 114 K/mm3 (142-424); Red Blood Count 4.48 M/mm3 (4.60-6.20); Red Cell Distribution Width-SD 42.9 fL; White Blood Count 4.3 K/mm3 (4.8-10.8)
[2024-12-28 06:09] LABS: Alanine Aminotransferase 42 U/L (12-78); Albumin Level 3.0 g/dl (3.5-5.0); Albumin/Globulin Ratio 1.2 (1.1-1.8); Alkaline Phosphatase 75 U/L (38-126); Anion Gap 7.8 mEq/L (5-15); Aspartate Amino Transferase 38 U/L (17-59); Bilirubin,Total 0.8 mg/dl (0.2-1.3); Blood Urea Nitrogen 17 mg/dl (9-20); Calcium 8.2 mg/dl (8.4-10.2); Carbon Dioxide 27 mmol/L (22.0-30.0); Chloride 107 mmol/L (98-107); Creatinine Clearance Estimated 49 mL/min (50-200); Creatinine,Serum 1.10 mg/dl (0.66-1.25); Estimated Glomerular Filt Rate 63 ml/min (>60); GFR (African American) 76 ML/MIN (>60); Globulin 2.5 g/dL (1.3-3.2); Glucose 83 mg/dl (74-100); Magnesium 1.8 mg/dl (1.6-2.3); Potassium 3.8 mmoL/L (3.5-5.1); Sodium 138 mmol/L (136-145); Total Protein,Serum 5.5 g/dl (6.3-8.2)
[2024-12-28 06:37] LABS: Thyroid Stimulating Hormone 1.01 uIU/mL (0.465-4.68)
--- NOTE | 2024-12-28 08:27 | EXP.PULM.CON ---
History of Present Illness History of present illness: Mr. Burnham is a 89-year-old male greater than [id number] smoking history of last monitor in 2019, history of pulmonary embolism diagnosed on a CT scan from November 2024 as per the patient presented to the ER with altered mentation with CT showing bilateral pleural effusions and pulmonary was called for further evaluation and management. Was recently presented to the ER November 2024 found to have a right lower lobe pulmonary embolism discharged home on Lovenox. [facility] Disclaimer: The information contained in this section may have been updated after the patient was seen, as this information can be updated by other users. Medical History (Updated 12/28/24 @ 15:06 by Amber Hennessy MD) Pleural effusion, bilateral Pneumonia Cardiomyopathy Severe left ventricular systolic dysfunction (LVSD) Hyperlipidemia Hypertension Non-STEMI (non-ST elevated myocardial infarction) UTI (urinary tract infection) BPH (benign prostatic hyperplasia) Family History (Updated 12/27/24 @ 14:52 by Kiki Dye RN) Other Heart failure Hypertension Stroke Social History (Updated 12/27/24 @ 14:57 by Kiki Dye RN) Smoking Status: Former smoker tobacco type: cigarettes alcohol intake: former substance use type: denies use current occupational status: retired and other Travel in the last 8 weeks?: None household members: none housing: apartment Review of Systems Constitutional Constitutional: Reports anorexia, Reports body ache(s) and Reports fatigue Eyes Eyes: Denies eye discharge, Denies dry eyes, Denies irritation and Denies itchy eyes ENT Ears, Nose, Mouth, and Throat: Denies epistaxis, Denies facial pain, Denies lip swelling and Denies throat swelling *Cardiovascular Cardiovascular: Reports dyspnea, Reports dyspnea on exertion, Reports leg edema, Reports orthopnea and Reports pedal edema *Respiratory Respiratory: Denies change in phlegm color, Reports chest congestion, Reports cough, Reports dyspnea, Reports dyspnea on exertion, Denies excessive phlegm production and Denies wheezing *Gastrointestinal Gastrointestinal: Denies abdominal pain, Denies belching and Denies cramping *Musculoskeletal Musculoskeletal: Reports back pain, Reports myalgias and Reports other (No small joint swelling or Pain) Psychiatric Psychiatric: Denies homicidal ideation and Denies suicidal ideation Endocrine Endocrine: Reports fatigue and Denies heat intolerance Hematologic/Lymphatic Hematologic/Lymphatic: Denies easy bleeding and Denies lymphadenopathy Allergic/Immunologic Allergic/Immunologic: Denies itchy eyes, Denies lip swelling, Denies throat swelling and Denies wheezing Pulmonology Exam Inpatient Vital signs and Labs for Last 24 Hours: Temp Pulse Resp BP Pulse Ox O2 Del Method 98.2 F 109 H 18 117/56 L 95 Room Air 12/28/24 08:00 12/28/24 08:00 12/28/24 08:00 12/28/24 08:00 12/28/24 08:00 12/28/24 08:00 Laboratory Results - last 24 hr 12/27/24 09:30: WBC 4.8, RBC 4.79, Hgb 13.7 L, Hct 38.9 L, MCV 81.2, MCH 28.6, MCHC 35.2, RDW 15.5, Plt Count 141 L, MPV 10.7 H, Neut % (Auto) 73.7, Lymph % (Auto) 12.2, [place] % (Auto) 13.5 H, Eos % (Auto) 0.0 L, Baso % (Auto) 0.4, Neut # (Auto) 3.6, Lymph # (Auto) 0.6 L, [place] # (Auto) 0.7, Eos # (Auto) 0.0, Baso # (Auto) 0.0, Sodium 140, Potassium 4.1, Chloride 105, Carbon Dioxide 27, Anion Gap 12.1, BUN 19, Creatinine 1.20, Estimated Creat Clear 47, Estimated GFR 57 L, Est GFR ( Amer) 69, Glucose 128 H, Calcium 8.9, Total Bilirubin 1.1, AST 44, ALT 64, Alkaline Phosphatase 98, Total Creatine Kinase 373 H, C-Reactive Protein 23.1 H, NT-Pro-B Natriuret Pep 23423 H 12/27/24 09:30: NT-Pro-B Natriuret Pep 92678 H, Total Protein 7.0, Albumin 4.1, Globulin 2.9, Albumin/Globulin Ratio 1.4, Procalcitonin 0.057 12/27/24 09:34: POC Glucose 111 H 12/27/24 09:45: Urine Color Yellow, Urine Appearance Clear, Urine pH 6.0, Ur Specific [place] 1.020, Urine Protein 2+ A, Urine Glucose (UA) Negative, Urine Ketones Trace, Urine Blood 3+ A, Urine Nitrate Negative, Urine Bilirubin Negative, Urine Urobilinogen 0.2, Ur Leukocyte Esterase 1+ A, Urine RBC Occasional, Urine WBC Occasional, Ur Squamous Epith Cells Occasional, Urine Bacteria Trace 12/27/24 09:50: VBG pH 7.28 L, VBG pCO2 45.3, VBG pO2 29.4, VBG HCO3 20.6 L, VBG Total CO2 22.0 L, VBG O2 Saturation 49.7 L, VBG Base Excess -6.3 L, VBG Lactic Acid 2.8 H 12/27/24 14:17: Lactate 1.9 12/27/24 17:35: Troponin I 0.09 H 12/28/24 05:19: WBC 4.3 L, RBC 4.48 L, Hgb 12.4 L, Hct 35.4 L, MCV 79.0 L, MCH 27.7, MCHC 35.0, RDW 15.0, Plt Count 114 L, MPV 10.3, Neut % (Auto) 53.4, Lymph % (Auto) 23.8, [place] % (Auto) 21.9 H, Eos % (Auto) 0.5, Baso % (Auto) 0.2, Neut # (Auto) 2.3, Lymph # (Auto) 1.0, [place] # (Auto) 0.9, Eos # (Auto) 0.0, Baso # (Auto) 0.0, Sodium 138, Potassium 3.8, Chloride 107, Carbon Dioxide 27, Anion Gap 7.8, BUN 17, Creatinine 1.10, Estimated Creat Clear 49, Estimated GFR 63, Est GFR ( Amer) 76, Glucose 83 D, Calcium 8.2 L, Magnesium 1.8, Total Bilirubin 0.8, AST 38, ALT 42 D, Alkaline Phosphatase 75, Total Protein 5.5 L, Albumin 3.0 L D, Globulin 2.5, Albumin/Globulin Ratio 1.2, TSH 1.01 I & O for Labs for Last 24 Hours: Intake & Output 12/25/24 12/26/24 12/27/24 12/28/24 23:59 23:59 23:59 23:59 Intake Total 220 / 340 120 / 120 Output Total 1000 / 1200 750 / 750 Balance -780 / -860 -630 / -630 Weight 168 lb 9 oz 168 lb 10.458 oz Constitutional: Present moderate distress Head: Present normocephalic and atraumatic ENT: Present normal exam, normal oropharynx and mucous membranes moist Neck: Present normal inspection and full ROM Respiratory: Present respiratory distress, crackles, diminished air movement and able to speak in complete sentences; Absent prolonged expiratory phase Cardiac: Present S1/S2, Tachycardia and radial pulses present GI: Present soft and distention; Absent tenderness or guarding Skin: Present intact; Absent cyanosis or jaundice Neuro: Present alert, awake and oriented x 3 Extremities: Present normal inspection and edema; Absent clubbing or cyanosis Psychiatric: Present normal affect and cooperative Meds Home Medications and Allergies Home Medications ?Medication ?Instructions ?Recorded ?Confirmed ?Type apixaban 5 mg tablet 5 mg PO BID 12/28/24 12/28/24 History calcium 600 mg (as 1 tab PO DAILY 12/28/24 12/28/24 History carbonate)-vitamin D3 5 mcg (200 unit) tablet cetirizine 5 mg tablet 5 mg PO DAILY 12/28/24 12/28/24 History finasteride 5 mg tablet 5 mg PO DAILY 12/28/24 12/28/24 History fluticasone propionate 50 2 spray intranasal HS 12/28/24 12/28/24 History mcg/actuation nasal spray,suspension guaifenesin 200 mg tablet 200 mg PO Q6HP PRN Cough 12/28/24 12/28/24 History ipratropium 20 mcg-albuterol 100 1 puff inhalation Q6HP PRN 12/28/24 12/28/24 History mcg/actuation mist for inhalation Shortness Of Breath (Combivent Respimat) losartan 50 mg tablet 50 mg PO DAILY 12/28/24 12/28/24 History melatonin 3 mg tablet 6 mg PO HSP PRN Insomnia 12/28/24 12/28/24 History metoprolol tartrate 25 mg tablet 25 mg PO BID 12/28/24 12/28/24 History omeprazole 40 mg capsule,delayed 40 mg PO BID 12/28/24 12/28/24 History release polyethylene glycol 3350 17 gram 17 g PO DAILY 12/28/24 12/28/24 History oral powder packet (Miralax) rosuvastatin 5 mg tablet 5 mg PO HS 12/28/24 12/28/24 History sennosides 8.6 mg tablet (senna) 17.2 mg PO BID 12/28/24 12/28/24 History simethicone 80 mg chewable tablet 80 mg PO Q6HP PRN Gas 12/28/24 12/28/24 History tamsulosin 0.4 mg capsule 0.8 mg PO HS 12/28/24 12/28/24 History New Prescriptions to Start Prescriptions: Allergies Allergy/AdvReac Type Severity Reaction Status Date / Time No Known Allergies Allergy Verified 06/06/24 10:17 Results Laboratory Findings 12/28/24 05:19 12/28/24 05:19 Abnormal lab findings: Abnormal Labs 12/27/24 12/27/24 12/27/24 09:30 09:30 09:34 WBC RBC Hgb 13.7 L Hct 38.9 L MCV Plt Count 141 L MPV 10.7 H [place] % (Auto) 13.5 H Eos % (Auto) 0.0 L Lymph # (Auto) 0.6 L VBG pH VBG HCO3 VBG Total CO2 VBG O2 Saturation VBG Base Excess VBG Lactic Acid Estimated GFR 57 L Glucose 128 H POC Glucose 111 H Calcium Total Creatine Kinase 373 H Troponin I C-Reactive Protein 23.1 H NT-Pro-B Natriuret Pep 91833 H 07514 H Total Protein Albumin Urine Protein Urine Blood Ur Leukocyte Esterase 12/27/24 12/27/24 12/27/24 09:45 09:50 17:35 WBC RBC Hgb Hct MCV Plt Count MPV [place] % (Auto) Eos % (Auto) Lymph # (Auto) VBG pH 7.28 L VBG HCO3 20.6 L VBG Total CO2 22.0 L VBG O2 Saturation 49.7 L VBG Base Excess -6.3 L VBG Lactic Acid 2.8 H Estimated GFR Glucose POC Glucose Calcium Total Creatine Kinase Troponin I 0.09 H C-Reactive Protein NT-Pro-B Natriuret Pep Total Protein Albumin Urine Protein 2+ A Urine Blood 3+ A Ur Leukocyte Esterase 1+ A 12/28/24 05:19 WBC 4.3 L RBC 4.48 L Hgb 12.4 L Hct 35.4 L MCV 79.0 L Plt Count 114 L MPV [place] % (Auto) 21.9 H Eos % (Auto) Lymph # (Auto) VBG pH VBG HCO3 VBG Total CO2 VBG O2 Saturation VBG Base Excess VBG Lactic Acid Estimated GFR Glucose POC Glucose Calcium 8.2 L Total Creatine Kinase Troponin I C-Reactive Protein NT-Pro-B Natriuret Pep Total Protein 5.5 L Albumin 3.0 L D Urine Protein Urine Blood Ur Leukocyte Esterase Assessment and Plan *Assessment and plan (1) Pneumonia: Status: Acute Category: Medical Code(s): J18.9 - Pneumonia, unspecified organism (2) Pleural effusion, bilateral: Status: Acute Category: Medical Code(s): J90 - Pleural effusion, not elsewhere classified Plan Mr. Burnham is a 89-year-old male greater than [id number] smoking history of last monitor in 2019, history of pulmonary embolism diagnosed on a CT scan from November 2024 as per the patient presented to the ER with altered mentation with CT showing bilateral pleural effusions and pulmonary was called for further evaluation and management. Was recently presented to the ER November 2024 found to have a right lower lobe pulmonary embolism discharged home on Lovenox. Afebrile. Hemodynamically stable. Leukopenia. Platelet count 114. Hemoglobin stable at 12-13. BNP elevated at 23,400. Blood gas upon admission venous, metabolic acidosis with a pH of 7.28, pCO2 45.3 and pO2 of 29.4 CTA upon admission no evidence of pulmonary lesion. Bilateral pleural effusions right greater than left. Noted effusions are present on patient's CT scan from November 2024 however worsened on his current CT scans. The current CT scan also showed left lower lobe nodular opacities which were new from his CT scan from November 2024. We noted bilateral pleural effusions are likely from overload given clinical presentation bilateral lower extremity edema 3+ orthopnea elevated BNP and low EF on echocardiogram. They noted left lobe lung nodule likely infectious etiology, will follow as an outpatient basis with subsequent imaging for resolution Plan: Will hold off on performing thoracentesis at this point of time. Volume optimization as per primary team and cardiology echocardiogram showed reduced EF to 25%. Continue ceftriaxone treatment for community-acquired pneumonia pending sputum culture results. Antibiotics can be weaned to cefdinir to complete a total of 5-day course DuoNebs 4 times daily scheduled Continue full dose anticoagulation for his recent diagnosis pulmonary embolism # Thank you for involving pulmonary in this patient care. Will continue to follow
--- NOTE | 2024-12-28 08:33 | HMH.PTEV ---
Physical Therapy Evaluation Rehab PT IP Evaluation Start: 12/27/24 15:35 Freq: ONCE Status: Active Protocol: Document 12/28/24 08:27 SIVAN (Rec: 12/28/24 08:32 SIVAN [id number]) Subjective/History History History Per H&P: Oumar Burnham is a 89-year-old male with an unclear medical history presents via EMS due to altered mental status. Per ED provider and EMS, daughter requested caregiver to check on patient as she had not heard from him in a few days. Upon arrival, caregiver found patient to be lying on the floor incomprehensible, covered with his own urine, and therefore EMS was called. Patient was recently transferred to [facility] for suspected left posterior frontal stroke, but upon my discussion with the patient he states that this was not a stroke. Will obtain records from [facility]. Patient was drowsy on my evaluation, but would answer a few questions and otherwise doze off. Denies chest pain, shortness of breath but does endorse some abdominal pain. Workup in the ED significant for VBG pH 7.28, lactic acid 2.8, BNP 23,000, CK is 373, UA positive for LE, blood, and trace bacteria. CTA chest suggestive of worsening bilateral pleural effusions, enlarged heart, and ground glass opacities favoring pulmonary edema left lower lobe nodules were also seen, interval development within the last month. Patient was given ceftriaxone 2 g in the ED. Given these findings, ED provider discussed case with manage decided to admit patient for heart failure exacerbation, acute metabolic encephalopathy, possible community-acquired pneumonia. Subjective Subjective Pt is confused. Do you have any candy? Pt reports he lives alone and is IND with all mobility. Pt reports he still drives and uses a RW for ambulation. Confirm social history with CM. New diagnosis of No cancer in past 12 months? [facility] How much help from another person do you currently need... Turning from your A lot back to your side while in a flat bed without using bedrails? Moving from lying on A lot back to sitting on the side of a flat bed without using bedrails? Moving to and from a A lot bed to a chair ( including a wheelchair)? Standing up from a A lot chair using your arms? (e.g., wheelchair, bedside chair) Walking in hospital Total room? Climbing 3-5 steps Total with a railing? Mobility Score 10 Mobility Level [facility] Mobility 4 Move to chair/commode Mobility Calculator Rehab PT IP Eval Objective Appearance Patient Behavior Cooperative,Confused Difficulty following moderate instructions Ambulation Patient Able to No Ambulate Balance Ability to Arise Unable Sitting Balance Leans or slides in chair Transfers Bed Transfer Ability Maximum x 1 (75% assist) Rehab PT IP prob,goals,plan Problems Date of Evaluation: 12/28/24 PT IP Problems Bed Mobility,Transfers,Gait,Balance,Self care,Safety Rehab Potential Rehab Potential Good Plan PT Intervention Plan Bed Mobility,Transfers,Gait,Balance,Self care,Safety, Therapeutic Exercise Other Intervention 1-2 times Plan PT Plan Frequency Daily Duration LOS Discharge Goals Bed Transfer Ability Moderate x 2 (50% assist) Sit to Stand Chair Moderate x 2 (50% assist) Transfer Ability Discharge Plan PT Discharge Plan Initial PT evaluation performed. Pt presents below baseline in all functional mobility. Pt with difficulty following commands and sequencing bed mobility tasks. PT recommending inpatient rehabilitation facility (IRF) placement upon d/c from [facility] to address deficits, maximize safety, and decrease caregiver burden. Pt would benefit from skilled PT while at [facility] to prevent further functional decline. Eval Complexity Eval Charge Codes 14907 - Moderate Complexity PHYSICIAN CERTIFICATION: I certify the specified therapy services for Oumar Burnham are required, authorized, and reviewed every 30 days.
--- NOTE | 2024-12-28 08:41 | EXP.CARD.CON ---
History of Present Illness History of Present Illness Consult date: 12/28/24 Requesting physician: Clark Butt Chief complaint: AMS History of present illness: This is an 89-year-old -[place] gentleman who presented to the emergency department with altered mental status. It is unclear about any of his past medical history. It does appear that he likely has hypertension and hyperlipidemia. He denies any history of heart disease however he is pleasantly confused. He is alert and oriented to self and place. He can give me no medical history. I do see that it appears that he has a CVA history in his chart. No family is at the bedside today. The patient was found down at home in the floor incomprehensible and covered in urine. He was then transported here to the hospital. The patient was found to have an elevated white count and elevated lactic acid. His BNP was elevated and his troponin was elevated as well. His UA was positive and CTA of the chest showed worsening bilateral pleural effusions and pulmonary edema. Echocardiogram showed an ejection fraction of 20 to 25% with significant wall motion abnormalities and significantly elevated PA pressures. This morning he denies any chest pain, pressure, shortness of breath or edema. He denies any fever, chills, nausea, vomiting, diarrhea. But he is pleasantly confused. [facility] Disclaimer: The information contained in this section may have been updated after the patient was seen, as this information can be updated by other users. Medical History (Updated 12/28/24 @ 08:46 by Razia Alatorre APRN) Cardiomyopathy Severe left ventricular systolic dysfunction (LVSD) Hyperlipidemia Hypertension Non-STEMI (non-ST elevated myocardial infarction) UTI (urinary tract infection) BPH (benign prostatic hyperplasia) Family History (Updated 12/27/24 @ 14:52 by Kiki Dye RN) Other Heart failure Hypertension Stroke Social History (Updated 12/27/24 @ 14:57 by Kiki Dye RN) Smoking Status: Former smoker tobacco type: cigarettes alcohol intake: former substance use type: denies use current occupational status: retired and other Travel in the last 8 weeks?: None household members: none housing: apartment Review of Systems Review of Systems Review of systems:: pertinent systems reviewed and negative unless documented below Constitutional Constitutional: Reports system reviewed and no additional complaints, except as documented Eyes Eyes: Reports system reviewed and no additional complaints, except as documented ENT Ears, Nose, Mouth, and Throat: Reports system reviewed and no additional complaints, except as documented *Cardiovascular Cardiovascular: Reports system reviewed and no additional complaints, except as documented *Respiratory Respiratory: Reports system reviewed and no additional complaints, except as documented *Gastrointestinal Gastrointestinal: Reports system reviewed and no additional complaints, except as documented *Genitourinary Genitourinary: Reports system reviewed and no additional complaints, except as documented *Musculoskeletal Musculoskeletal: Reports system reviewed and no additional complaints, except as documented Integumentary/Breasts Skin/Breast: Reports system reviewed and no additional complaints, except as documented *Neurologic Neurologic: Reports system reviewed and no additional complaints, except as documented Psychiatric Psychiatric: Reports system reviewed and no additional complaints, except as documented Endocrine Endocrine: Reports system reviewed and no additional complaints, except as documented Hematologic/Lymphatic Hematologic/Lymphatic: Reports system reviewed and no additional complaints, except as documented Allergic/Immunologic Allergic/Immunologic: Reports system reviewed and no additional complaints, except as documented Exam Data for Last 24 hours Vital signs and Labs for Last 24 Hours: Temp Pulse Resp BP Pulse Ox O2 Del Method 98.2 F 109 H 18 117/56 L 95 Room Air 12/28/24 08:00 12/28/24 08:00 12/28/24 08:00 12/28/24 08:00 12/28/24 08:00 12/28/24 08:00 Laboratory Results - last 24 hr 12/27/24 09:30: WBC 4.8, RBC 4.79, Hgb 13.7 L, Hct 38.9 L, MCV 81.2, MCH 28.6, MCHC 35.2, RDW 15.5, Plt Count 141 L, MPV 10.7 H, Neut % (Auto) 73.7, Lymph % (Auto) 12.2, [place] % (Auto) 13.5 H, Eos % (Auto) 0.0 L, Baso % (Auto) 0.4, Neut # (Auto) 3.6, Lymph # (Auto) 0.6 L, [place] # (Auto) 0.7, Eos # (Auto) 0.0, Baso # (Auto) 0.0, Sodium 140, Potassium 4.1, Chloride 105, Carbon Dioxide 27, Anion Gap 12.1, BUN 19, Creatinine 1.20, Estimated Creat Clear 47, Estimated GFR 57 L, Est GFR ( Amer) 69, Glucose 128 H, Calcium 8.9, Total Bilirubin 1.1, AST 44, ALT 64, Alkaline Phosphatase 98, Total Creatine Kinase 373 H, C-Reactive Protein 23.1 H, NT-Pro-B Natriuret Pep 10532 H 12/27/24 09:30: NT-Pro-B Natriuret Pep 73290 H, Total Protein 7.0, Albumin 4.1, Globulin 2.9, Albumin/Globulin Ratio 1.4, Procalcitonin 0.057 12/27/24 09:34: POC Glucose 111 H 12/27/24 09:45: Urine Color Yellow, Urine Appearance Clear, Urine pH 6.0, Ur Specific Jefferson 1.020, Urine Protein 2+ A, Urine Glucose (UA) Negative, Urine Ketones Trace, Urine Blood 3+ A, Urine Nitrate Negative, Urine Bilirubin Negative, Urine Urobilinogen 0.2, Ur Leukocyte Esterase 1+ A, Urine RBC Occasional, Urine WBC Occasional, Ur Squamous Epith Cells Occasional, Urine Bacteria Trace 12/27/24 09:50: VBG pH 7.28 L, VBG pCO2 45.3, VBG pO2 29.4, VBG HCO3 20.6 L, VBG Total CO2 22.0 L, VBG O2 Saturation 49.7 L, VBG Base Excess -6.3 L, VBG Lactic Acid 2.8 H 12/27/24 14:17: Lactate 1.9 12/27/24 17:35: Troponin I 0.09 H 12/28/24 05:19: WBC 4.3 L, RBC 4.48 L, Hgb 12.4 L, Hct 35.4 L, MCV 79.0 L, MCH 27.7, MCHC 35.0, RDW 15.0, Plt Count 114 L, MPV 10.3, Neut % (Auto) 53.4, Lymph % (Auto) 23.8, [place] % (Auto) 21.9 H, Eos % (Auto) 0.5, Baso % (Auto) 0.2, Neut # (Auto) 2.3, Lymph # (Auto) 1.0, [place] # (Auto) 0.9, Eos # (Auto) 0.0, Baso # (Auto) 0.0, Sodium 138, Potassium 3.8, Chloride 107, Carbon Dioxide 27, Anion Gap 7.8, BUN 17, Creatinine 1.10, Estimated Creat Clear 49, Estimated GFR 63, Est GFR ( Amer) 76, Glucose 83 D, Calcium 8.2 L, Magnesium 1.8, Total Bilirubin 0.8, AST 38, ALT 42 D, Alkaline Phosphatase 75, Total Protein 5.5 L, Albumin 3.0 L D, Globulin 2.5, Albumin/Globulin Ratio 1.2, TSH 1.01 I & O for Last 24 hours: Intake & Output 12/25/24 12/26/24 12/27/24 12/28/24 23:59 23:59 23:59 23:59 Intake Total 220 / 340 480 / 480 Output Total 1000 / 1200 750 / 750 Balance -780 / -860 -270 / -270 Weight 168 lb 9 oz 168 lb 10.458 oz Constitutional Constitutional: no acute distress and average body habitus *Routine HEENT Exam Head: Present normocephalic and atraumatic ENT: Present mucous membranes moist *Routine Neck Exam Neck: Present supple, full ROM and normal carotid upstroke; Absent JVD, carotid bruit or lymphadenopathy *Routine Respiratory Exam Respiratory: Present wheezes, crackles, normal respiratory effort, able to speak in complete sentences and symmetric chest movement *Routine Cardiovascular Exam Cardiovascular: Present RRR, Normal S1 and Normal S2; Absent murmur or gallop *Routine Abdominal Exam Abdominal: Present soft and normoactive bowel sounds; Absent tenderness, distended or organomegaly *Routine Extremities Exam Extremities: Present full ROM, pulses intact and normal capillary refill; Absent cyanosis, clubbing or edema *Routine Skin Exam Skin: Present intact and warm; Absent erythema *Routine Neurological Exam Neurological: Present alert, oriented X3 and CN II-XII intact; Absent sensory deficit or motor deficit Routine Psychiatric Exam Psychiatric: Present normal affect Meds Home Medications and Allergies Home Medications ?Medication ?Instructions ?Recorded ?Confirmed ?Type tamsulosin 0.4 mg capsule (Flomax) 0.8 mg PO HS Prostate 04/06/22 06/06/24 History amlodipine 5 mg tablet (Norvasc) 5 mg PO DAILY Hypertension #30 tabs 04/08/22 06/06/24 Rx aspirin 325 mg tablet,delayed 325 mg PO DAILY Heart health #30 04/08/22 06/06/24 Rx release tabs carvedilol 6.25 mg tablet 6.25 mg PO BID #60 tabs 04/08/22 06/06/24 Rx diclofenac sodium 1 % topical gel 2 g topical Q6HP PRN Pain #100 04/08/22 06/06/24 Rx grams diltiazem HCl 360 mg 360 mg PO DAILY Hypertension #30 04/08/22 06/06/24 Rx tablet,extended release 24 hr tabs finasteride 5 mg tablet (Proscar) 5 mg PO DAILY Prostate #30 tabs 04/08/22 06/06/24 Rx omeprazole 20 mg tablet,delayed 40 mg (2 x 20 mg) PO BID Acid 04/08/22 06/06/24 Rx release reflux #30 tabs potassium chloride 20 mEq 20 meq PO DAILY #30 tabs 04/08/22 06/06/24 Rx tablet,extended release(part/cryst) rosuvastatin 10 mg tablet (Crestor) 5 mg (1/2 x 10 mg) PO HS 04/08/22 06/06/24 Rx Cholesterol #30 tabs bisacodyl 10 mg rectal suppository 10 mg WA DAILY PRN constipation 03/06/23 06/06/24 Rx (Dulcolax (bisacodyl)) #12 ea amoxicillin 875 mg-potassium 1 tab PO BID #20 tabs 06/06/24 Rx clavulanate 125 mg tablet levofloxacin 750 mg tablet 750 mg PO DAILY 7 days #7 tabs 07/28/24 Rx polyethylene glycol 3350 17 17 g PO DAILY PRN constipation 07/28/24 Rx gram/dose oral powder (Miralax) #510 grams sennosides 8.6 mg tablet 8.6 mg PO DAILY #30 tabs 07/28/24 Rx New Prescriptions to Start Prescriptions: Allergies Allergy/AdvReac Type Severity Reaction Status Date / Time No Known Allergies Allergy Verified 06/06/24 10:17 Assessment and Plan *Assessment and plan (1) Non-STEMI (non-ST elevated myocardial infarction): Status: Acute Category: Medical Code(s): I21.4 - Non-ST elevation (NSTEMI) myocardial infarction (2) HFrEF (heart failure with reduced ejection fraction): Status: Acute Category: Medical Code(s): I50.20 - Unspecified systolic (congestive) heart failure (3) Acute UTI: Status: Acute Category: Medical Code(s): N39.0 - Urinary tract infection, site not specified (4) Altered mental status: Status: Acute Qualifiers: Altered mental status type: disorientation Qualified Code(s): R41.0 - Disorientation, unspecified Category: Medical Code(s): R41.82 - Altered mental status, unspecified (5) Rhabdomyolysis: Status: Acute Qualifiers: Rhabdomyolysis type: traumatic Encounter type: initial encounter Qualified Code(s): T79.6XXA - Traumatic ischemia of muscle, initial encounter Category: Medical Code(s): M62.82 - Rhabdomyolysis (6) Hypertension: Status: Resolved Qualifiers: Hypertension type: primary hypertension Qualified Code(s): I10 - Essential (primary) hypertension Category: Medical Code(s): I10 - Essential (primary) hypertension (7) Hyperlipidemia: Status: Acute Qualifiers: Hyperlipidemia type: mixed hyperlipidemia Qualified Code(s): E78.2 - Mixed hyperlipidemia Category: Medical Code(s): E78.5 - Hyperlipidemia, unspecified (8) Severe left ventricular systolic dysfunction (LVSD): Status: Acute Category: Medical Code(s): I51.89 - Other ill-defined heart diseases (9) Cardiomyopathy: Status: Acute Qualifiers: Cardiomyopathy type: other Qualified Code(s): I42.8 - Other cardiomyopathies Category: Medical Code(s): I42.9 - Cardiomyopathy, unspecified Plan Plan: 1. The patient was admitted to the hospital after being found down at home. He does have an altered mental status. He is currently being treated for rhabdomyolysis. Will defer this to the hospitalist. 2. The patient does have an acute UTI and elevated white count. Will defer this to the hospitalist. 3. The patient has an elevated troponin greater than 23,000. His ejection fraction was 20 to 25% with moderate to severe MR and an elevated RVSP at 50 to 55 mmHg. There was also akinesis of the septal, anterior septal and inferior septal agarwal. The patient will need aggressive diuresis due to his cardiomyopathy and severe LV dysfunction. Will start him on Lasix 40 mg IV twice daily today for diuresis then switch over to Lasix 40 mg IV daily thereafter. His PA pressures are significantly elevated and he has pulmonary edema and effusions noted on CT. 4. The patient has been started on Entresto for the acute HFrEF. 5. Continue Aldactone for acute HFrEF. 6. Once he is euvolemic we will get him started on Farxiga. Will leave him off of Farxiga over the weekend. 7. Once he is more euvolemic we will also start him on a beta-dilcia. Will leave him off of the beta-dilcia over the weekend. 8. The patient does have an elevated troponin consistent with a non-STEMI. His echocardiogram is also abnormal with wall motion abnormalities. Will plan for left cardiac catheterization on Tuesday to evaluate for coronary artery disease due to his non-STEMI, acute HFrEF and severe LV dysfunction. Continue aspirin 81 mg daily. 9. The patient is currently not a candidate for a LifeVest due to his altered mental status. 10. His blood pressure is well-controlled. Continue Entresto. 11. His LDL goal is less than 55. His LDL is 40.21. Continue his Crestor. 12. Further recommendations will be made pending the patient's response to treatment. Thank you for the opportunity to help participate in the care of this patient. All recommendations and orders are per Dr. Soares.
[2024-12-28 08:42] LABS: Troponin I 0.12 ng/ml (0.00-0.034)
[2024-12-28] MEDS: SPIRONOLACTONE 25MG TABLET 25 MG PO (08:44)
[2024-12-28] MEDS: ASPIRIN 325MG TABLET 325 MG PO (08:45)
[2024-12-28] MEDS: SACUBITRIL/VALSARTAN 24-26MG TABLET 1 EACH PO ×2 (08:45→20:18)
[2024-12-28] MEDS: DOXYCYCLINE HYCL 100 MG TABLET PO ×2 (08:45→20:18)
--- NOTE | 2024-12-28 08:48 | HMH.OTEV ---
OT Evaluation Rehab OT IP Evaluation Start: 12/28/24 07:47 Freq: ONCE Status: Active Protocol: [facility]28[facility]24 08[facility]40 [facility] (Rec: 12/28/24 08:48 [facility] [id number]) Rehab OT IP Assessment Subjective History Pt oriented x 3 on arrival. Pt agreeable to engage in therapy evaluation. Pt admitted on 12/27/24 due to urinary retention, AMS, and fall at home. History and physical: Oumar Burnham is a 89-year-old male with an unclear medical history presents via EMS due to altered mental status. Per ED provider and EMS, daughter requested caregiver to check on patient as she had not heard from him in a few days. Upon arrival, caregiver found patient to be lying on the floor incomprehensible, covered with his own urine, and therefore EMS was called. Patient was recently transferred to [facility] for suspected left posterior frontal stroke, but upon my discussion with the patient he states that this was not a stroke. Will obtain records from [facility]. Patient was drowsy on my evaluation , but would answer a few questions and otherwise doze off. Denies chest pain, shortness of breath but does endorse some abdominal pain. Workup in the ED significant for VBG pH 7.28, lactic acid 2.8, BNP 23, 000, CK is 373, UA positive for LE, blood, and trace bacteria. CTA chest suggestive of worsening bilateral pleural effusions, enlarged heart, and ground glass opacities favoring pulmonary edema left lower lobe nodules were also seen, interval development within the last month. Patient was given ceftriaxone 2 g in the ED. Given these findings, ED provider discussed case with manage decided to admit patient for heart failure exacerbation, acute metabolic encephalopathy, possible community-acquired pneumonia. Subjective Pt provided previous level of functioning information, however pt continues to be slightly confused so information provided may be untrustworthy. Pt claims he is normally independent with all ADLs and IADLs. He does have a cane and walker at home that he uses during functional transfers. Pt also claims he still drives. Pt's daughter completes grocery shopping. Objective Patient Orientation Person,Place,Birthday Right Upper Min Limitation <25% Extremity Gross ROM Left Upper Extremity Min Limitation <25% Gross ROM Shoulder ROM Muscle Weakness Limitations Elbow ROM Muscle Weakness Limitations Wrist Limitations of Muscle Weakness Range of Motion Bed Mobility bed mobility-scooting,bed mobility - supine/sit Assist Level Maximum x 2 (75% assist) Rehab OT IP prob,goals,plan Problems Date of Evaluation: 12/28/24 OT IP Problems Bed Mobility,Transfers,Balance,Self care,Safety Rehab Potential Rehab Potential Good Equipment Needs Assistive Devices Rolling / Wheeled Walker Plan OT intervention Plan Bed Mobility,Transfers,Balance,Self care,Safety, Therapeutic Exercise OT Plan Frequency Daily Duration LOS Discharge Goals Bed Mobility Ability Assistance x1 Sit to Stand Chair Maximum x 1 (75% assist) Transfer Ability Chair Transfer Maximum x 1 (75% assist) Ability Chair Transfer Stand Step Pivot Technique Chair Transfer Rolling Walker Assistive Devices Lower Body Dressing Maximum Assistance Ability Upper Body Dressing Moderate Assistance Ability Performing Toilet Maximum Assistance Hygiene Ability Overall Commode/ Maximum Assistance Toilet Transfer Ability Commode/Toilet Stand Step Pivot Transfer Technique Discharge Plan OT Discharge Plan Pt will continue to be seen for OT services while at [facility]. At this time, pt would benefit most from short term rehab at SNF following hospital discharge. Continued skilled therapy is important in order for patient to improve strength, safety, endurance, ADL independence, and functional transfers to reach PLOF. Eval Complexity Eval Charge Codes 58840 - Moderate Complexity PHYSICIAN CERTIFICATION: I certify the specified therapy services for Oumar Burnham are required, authorized, and reviewed every 30 days.
[2024-12-28] MEDS: FUROSEMIDE 40MG/4ML VIAL 40 MG IV ×2 (08:52→16:42)
[2024-12-28 08:55] LABS: Hemoglobin A1C 5.8 % (4.0-6.0)
--- NOTE | 2024-12-28 09:03 | SW/DCPLANNER ---
Addendum entered by [facility] 01/01/25 10:42: Daughter has contacted me back and is agreeable to placement at [facility] level of care. I have updated Jethro w/ [facility]. Addendum entered by [facility] 01/01/25 10:20: I have made contact w/ the [facility] Dept to do a welfare check on daughter. Addendum entered by [facility] 01/01/25 09:46: Yuliya w/ [facility] is unable to accept patient. I have attempted to contact patient's daughter multiple times since yesterday afternoon regarding patient being medically stable for discharge today. At this point the only facility willing to accept patient is [facility]. I will continue to try to get in contact w/ daughter. Per Dr Farrell patient is medically stable for discharge today. Addendum entered by [facility] 12/31/24 15:29: [facility] is not able to accept patient. Y[facility]ya w/ [facility] will be at bedside today to evaluate. Daughter is fine w/ patient returning to [facility] if [facility] can not accept. Addendum entered by [facility] 12/31/24 14:18: Per cath has been cancelled and patient is medically stable for discharge. I attempted to contact patient's daughter w/ no answer. [facility] [place] is willing to accept at this time. [facility] and [facility] are still reviewing patient information. CM will continue to follow up. Addendum entered by [facility] 12/31/24 11:33: Per Janell w/ [facility] she is unable to accept patient till 01-09 due to COVID positive. I have updated patient's daughter regarding [facility] not being an option due to 10 day quarantine. Addendum entered by [facility] 12/31/24 11:06: I have updated patient's daughter regarding discharge planning. Daughter is aware that [facility] and [facility] are reviewing patient information. Daughter is also agreeable for patient to return to [facility] if these facilities can NOT accept patient. I will continue to follow up w/ facilities, patient/family and MD. Discharge date is unknown at this time. Addendum entered by [facility] 12/31/24 11:00: [facility] is not in network w/ patient's insurance. Addendum entered by [facility] [place] [facility] 12/31/24 09:00: [facility], [facility] and [facility] are reviewing patient information. Per family does not prefer [facility]. Addendum entered by [facility] 12/28/24 11:51: Jethro sanchez/ [facility] is able to accept. Patient information has also been faxed to [facility], [facility] and [facility]. [facility] does not have any beds at this time. Addendum entered by [facility] 12/28/24 11:43: Patient's daughter is agreeable for information to also be faxed to [facility] and [facility], [facility], [facility] and [facility]. Original Note: Due to patient's AMS I spoke w/ his daughter via phone this AM regarding discharge planning. Per daughter patient was recently admitted to [facility] from [facility] [place] for [place] week of rehab. Patient decided to go home at that point on 12-21-24. Daughter is interested in patient returning to [facility] once medically stable for discharge. PT/OT evaluated patient this AM and recommended SNF level of care. I am waiting for Jethro Quarles to return my phone call regarding returning. Discharge date is unknown at this time. CM will continue to follow up.
[2024-12-28 09:10] LABS: Vitamin B12 473 pg/mL (239-931)
[2024-12-28 09:32] LABS: Folate 10.10 ng/mL
[2024-12-28] MEDS: IPRATROPIUM/ALBUTEROL 3 ML NEB IH ×2 (11:02→23:52)
[2024-12-28 12:00] LABS: POC Glucose,Bedside 147 gm/dL (70-110)
--- NOTE | 2024-12-28 12:12 | P.CONPHA_ITS ---
Pharmacy Intervention Comments: MEDICATION RECONCILIATION COMPLETED ON PATIENT USING LIST FROM [place]. -NILTON SAMPSON, NOEMID
--- NOTE | 2024-12-28 12:12 | HMH.PHAINT1 ---
Pharmacy Intervention Comments: MEDICATION RECONCILIATION COMPLETED ON PATIENT USING LIST FROM [place]. -NILTON SAMPSON, NOEMID
--- OUTSIDE RECORDS SUMMARY | 2024-12-28 12:16 | XMS_ITS | Encounter Summary ---
[facility] [address] [place] [address] Care Team Providers Care Paper Cone Machine Tender Name Role Phone Provider, No Known Primary Care Provider Unavail able Encounter Details Date Type Department Care Team (Late st Contact Info) Description 11/02/2024 Readmission Management [facility] [address] [place] [id number] Shweta German, AVILA Social History Tobacco Use Types Packs/Day Years Used Date Smoking Tobacco: Never Assessed [facility] Utilities Answer Date Recorded In the past 12 months has [employer] electric, gas, oil, or water company threatened [...] GED or equivalent No 10/29/2024 Preferred Language Beninese 10/29/2024 Sex and Gender Information Value Date Recorded Sex Assigned at Not on file Legal Sex Male 4:14 PM EDT Gender Identity Not on file Sexual Orientation Not on file documented as of this encounter Miscellaneous Notes * Outreach Note - Shweta German RN - 11/02/2024 7:52 PM EDT Prep Survey Flowsheet Row Responses [facility] [place] [facility] 7 ? No Eligibility Readm Mgmt Discharge diagnosis Stroke-like symptoms Does the patient have one of the following disease processes/diagnoses(primary or secondary)? Other Prep survey completed? Yes Shweta Sorenson - Registered Nurse documented in this encounter Plan of Treatment Not on file documented as of this encounter Visit Diagnoses Not on filedocumented in this encounter Care Teams Paper Cone Machine Tender Relationship Specialty Start Date End Date Provider, No Known [facility] [place] [address] PCP - General 10/26/24 documented as of this encounter
--- OUTSIDE RECORDS SUMMARY | 2024-12-28 12:16 | XMS_ITS | Clinical Summary ---
Author Organization [facility] Address [address] [place] [address] Care Team Providers Care Inspector Outside [employer] Name Role Phone Provider, No Known Primary [...] Type Department Care Team Description Readmission Management [facility] [address] [place] [phone] Mirtha Iyer 5 Readmission Management [facility] [address] [place] [address] Isabel Sal RN 5 Readmission Management [facility] [address] [place] [address] Shweta German RN 5 9:30 AM EDT Anesthesia Event [facility] [address] [place] [address] Ajay Palomares MD 5 9:04 AM EDT - 5 9:38 AM EDT Surgery [facility] [address] [place] [address] Mian Garcia MD ESOPHAGOGASTRODUODENOSCOPY [53261 (CPT )] 5 7:03 PM EDT - 5 3:14 PM EDT Hospital Encounter [facility] [address] [place] [address] Areli Nguyen MD Ramos, Angel Y, MD [...] Years Used Date Smoking Tobacco: Never Assessed [facility] Utilities Answer Date Recorded In the past 12 months has [employer], gas, oil, or water [employer] threatened to shut off services in your [...] GED or equivalent No 10/29/2024 Preferred Language Burkinan 10/29/2024 Sex and Gender Information Value Date [...] IF INDICATED Routine 10/30/2024 10:12 AM EDT [place] ESOPHAGOGASTRODUODENOSCOP Y TRANSORAL DIAGNOSTIC 10/29/2024 9:30 AM [...] 0-2 /HPF 10/30/2024 10:31 AM EDT [facility] WBC, UA 0-2 None Seen, 0-2 /HPF 10/30/2024 10:31 AM EDT [facility] Comment:Urine culture not in dicated. Bacteria, UA None Seen None Seen /HPF 10/30/2024 10:31 AM EDT [facility] Squamous Epithelial Cells, UA 0-2 None Seen, 0-2 /HPF 10/30/2024 10:31 AM EDT [facility] Hyaline Casts, UA None Seen None Seen /LPF 10/30/2024 10:31 AM EDT [facility] Methodology Automated Microscopy 10/30/2024 10:31 AM EDT [facility] Urine Urine specimen obtained by clean catch procedure / Unknown Collection / Unknown 10/30/2024 10:12 AM EDT 10/30/2024 10:12 AM EDT Che Cannonjose guadalupe Kiser WAREDRESSER URINE ORDERABLES F inal Result [facility]
[address] [place] [address], [place] [phone] * (ABNORMAL) Urinalysis With Culture If Indicated - Urine, Clean Catch (10/30/2024 10:12 AM EDT) Only the most recent of2 resultswithin the time period is included. Color, UA Yellow Yellow, Straw 10/30/2024 10:31 AM EDT [facility] Appearance, UA Clear Clear 10/30/2024 10:31 AM EDT [facility] pH, UA 7.0 5.0 - 8.0 10/30/2024 10:31 AM EDT [facility] Specific [place], UA 1.011 1.005 - 1.030 10/30/2024 10:31 AM EDT [facility] Glucose, UA Negative Negative 10/30/2024 10:31 AM EDT [facility] Ketones, UA Negative Negative 10/30/2024 10:31 AM EDT [facility] Bilirubin, UA Negative Negative 10/30/2024 10:31 AM EDT [facility] Blood, UA Negative Negative 10/30/2024 10:31 AM EDT [facility] Protein, UA 30 mg/dL (1+)(A) Negative 10/30/2024 10:31 AM EDT [facility] Leuk Esterase, UA Moderate (2+)(A) Negative 10/30/2024 10:31 AM EDT [facility] Nitrite, UA Negative Negative 10/30/2024 10:31 AM EDT [facility] Urobilinogen, UA 1.0 E.U./dL 0.2 - 1.0 E.U./dL 10/30/2024 10:31 AM EDT [facility] Urine Urine specimen obtained by clean catch procedure / Unknown Collection / Unknown 10/30/2024 10:12 AM EDT 10/30/2024 10:12 AM EDT Narrative [facility] - 10/30/2024 10:31 AM EDT In absence of clinical symptoms, the presence of pyuria, bacteria, and/or nitrites on the urinalysis result does not correlate with infection. Che Kiser WAREDRESSER URINE ORDERABLES F inal Result [facility]
[address] [place] [address], * Upper GI Endoscopy (10/29/2024 9:19 AM [...] 10.80 10*3/mm3 10/28/2024 9:16 AM EDT [facility] RBC 5.42 4.14 - 5.80 10*6/mm3 10/28/2024 9:16 AM EDT [facility] Hemoglobin 14.9 13.0 - 17.7 g/dL 10/28/2024 9:16 AM EDT [facility] Hematocrit 43.1 37.5 - 51.0 % 10/28/2024 9:16 AM EDT [facility] MCV 79.5 79.0 - 97.0 fL 10/28/2024 9:16 AM EDT [facility] MCH 27.5 26.6 - 33.0 pg 10/28/2024 9:16 AM EDT [facility] MCHC 34.6 31.5 - 35.7 g/dL 10/28/2024 9:16 AM EDT [facility] RDW 15.1 12.3 - 15.4 % 10/28/2024 9:16 AM EDT [facility] RDW-SD 43.6 37.0 - 54.0 fl 10/28/2024 9:16 AM EDT [facility] MPV 10.9 6.0 - 12.0 fL 10/28/2024 9:16 AM EDT [facility] Platelets 168 140 - 450 10*3/mm3 10/28/2024 9:16 AM EDT [facility] Blood Venipuncture / Unknown 10/28/2024 8:42 AM EDT 10/28/2024 9:09 AM EDT us Saeed Monique MD LAB BLOOD ORDERABLES Final Res ult [facility]
[address] [place] [address], * Basic Metabolic Panel (10/28/2024 8:42 AM EDT) Glucose 85 65 - 99 mg/dL 10/28/2024 9:56 AM EDT [facility] BUN 21.0 8.0 - 23.0 mg/dL 10/28/2024 9:56 AM EDT [facility] Creatinine 1.10 0.76 - 1.27 mg/dL 10/28/2024 9:56 AM EDT [facility] Sodium 140 136 - 145 mmol/L 10/28/2024 9:56 AM EDT [facility] Potassium 4.0 3.5 - 5.2 mmol/L 10/28/2024 9:56 AM EDT [facility] Chloride 104 98 - 107 mmol/L 10/28/2024 9:56 AM EDT [facility] CO2 24.0 22.0 - 29.0 mmol/L 10/28/2024 9:56 AM EDT [facility] Calcium 9.2 8.6 - 10.5 mg/dL 10/28/2024 9:56 AM EDT [facility] BUN/Creatinine Ratio 19.1 7.0 - 25.0 10/28/2024 9:56 AM EDT [facility] Anion Gap 12.0 5.0 - 15.0 mmol/L 10/28/2024 9:56 AM EDT [facility] eGFR 64.2 >60.0 mL/min/1.7 3 10/28/2024 9:56 AM EDT [facility] Blood Venipuncture / Unknown 10/28/2024 8:42 AM EDT 10/28/2024 9:09 AM EDT [facility] - 10/28/2024 9:56 AM EDT [...] LAB BLOOD ORDERABLES Final Res ult [facility]
[address] [place] [address], * ECG 12 Lead QT Measurement (10/28/2024 [...] - 10.80 10*3/mm3 10/28/2024 12:10 AM EDT [facility] RBC 5.20 4.14 - 5.80 10*6/mm3 10/28/2024 12:10 AM EDT [facility] Hemoglobin 14.6 13.0 - 17.7 g/dL 10/28/2024 12:10 AM [facility] Hematocrit 41.5 37.5 - 51.0 % 10/28/2024 12:10 AM [facility] MCV 79.8 79.0 - 97.0 fL 10/28/2024 12:10 AM [facility] MCH 28.1 26.6 - 33.0 pg 10/28/2024 12:10 AM [facility] MCHC 35.2 31.5 - 35.7 g/dL 10/28/2024 12:10 AM [facility] RDW 15.6(H) 12.3 - 15.4 % 10/28/2024 12:10 AM [facility] RDW-SD 44.8 37.0 - 54.0 fl 10/28/2024 12:10 AM [facility] MPV 10.3 6.0 - 12.0 fL 10/28/2024 12:10 AM [facility] Platelets 161 140 - 450 10*3/mm3 10/28/2024 12:10 AM [facility] Neutrophil % 33.3(L) 42.7 - 76.0 % 10/28/2024 12:10 AM [facility] Lymphocyte % 43.6 19.6 - 45.3 % 10/28/2024 12:10 AM [facility] Monocyte % 17.4(H) 5.0 - 12.0 % 10/28/2024 12:10 AM [facility] Eosinophil % 4.3 0.3 - 6.2 % 10/28/2024 12:10 AM [facility] Basophil % 1.0 0.0 - 1.5 % 10/28/2024 12:[facility] Immature Grans % 0.4 0.0 - 0.5 % 10/28/2024 12:10 AM [facility] Neutrophils, Absolute 1.69(L) 1.70 - 7.00 10*3/mm3 10/28/2024 12:10 AM EDT [facility] Lymphocytes, Absolute 2.21 0.70 - 3.10 10*3/mm3 10/28/2024 12:10 AM EDT [facility] Monocytes, Absolute 0.88 0.10 - 0.90 10*3/mm3 10/28/2024 12:10 AM EDT [facility] Eosinophils, Absolute 0.22 0.00 - 0.40 10*3/mm3 10/28/2024 12:10 AM EDT [facility] Basophils, Absolute 0.05 0.00 - 0.20 10*3/mm3 10/28/2024 12:10 AM EDT [facility] Immature Grans, Absolute 0.02 0.00 - 0.05 10*3/mm3 10/28/2024 12:10 AM EDT [facility] nRBC 0.0 0.0 - 0.2 /100 WBC 10/28/2024 12:10 AM EDT [facility] Blood Venipuncture / Unknown 10/27/2024 11:54 PM EDT 10/28/2024 12:08 AM EDT Gal Weiner PA-C LAB BLOOD ORDERABLES Final Result Performing Organization Address City/State/[facility] Co de Phone Number [facility]
[address] [place] [address], * Magnesium (10/27/2024 11:54 PM EDT) Magnesium 2.2 1.6 - 2.4 mg/dL 10/28/2024 12:35 AM EDT [facility] Blood Venipuncture / Unknown 10/27/2024 11:54 PM EDT 10/28/2024 12:04 AM EDT Gal Weiner PA-C LAB BLOOD ORDERABLES Final Result Performing Organization Address City/State/[facility] de Phone Number [facility]
[address] [place] [address], * Lactic Acid, Plasma (10/27/2024 11:54 PM EDT) Only the most recent of2 resultswithin the time period is included. Lactate 1.3 0.5 - 2.0 mmol/L 10/28/2024 12:32 AM EDT [facility] Comment:Falsely depressed re sults may occur on samples drawn from patients receiving N-Acetylcysteine (NAC) or Metamizole. Blood Venipuncture / Unknown 10/27/2024 11:54 PM EDT 10/28/2024 12:04 AM EDT Gal Weiner PA-C LAB BLOOD ORDERABLES Final Result Performing Organization Address [facility] de Phone Number [facility]
[address] [place] [address], * (ABNORMAL) Comprehensive Metabolic Panel (10/27/2024 11:54 PM EDT) Pathologist [facility] Glucose 80 65 - 99 mg/dL 10/28/2024 12:35 AM EDT [facility] BUN 21.7 8.0 - 23.0 mg/dL 10/28/2024 12:35 AM EDT [facility] Creatinine 1.08 0.76 - 1.27 mg/dL 10/28/2024 12:35 AM EDT [facility] Sodium 137 136 - 145 mmol/L 10/28/2024 12:35 AM EDT [facility] Potassium 4.1 3.5 - 5.2 mmol/L 10/28/2024 12:35 AM EDT [facility] Chloride 103 98 - 107 mmol/L 10/28/2024 12:35 AM EDT [facility] CO2 19.8(L) 22.0 - 29.0 mmol/L 10/28/2024 12:35 AM [facility] Calcium 9.4 8.6 - 10.5 mg/dL 10/28/2024 12:35 AM [facility] Total Protein 7.5 6.0 - 8.5 g/dL 10/28/2024 12:35 AM [facility] Albumin 4.3 3.5 - 5.2 g/dL 10/28/2024 12:35 AM [facility] ALT (SGPT) 23 1 - 41 U/L 10/28/2024 12:35 AM [facility] AST (SGOT) 29 1 - 40 U/L 10/28/2024 12:35 AM [facility] Alkaline Phosphatase 71 39 - 117 U/L 10/28/2024 12:35 AM [facility] Total Bilirubin 0.4 0.0 - 1.2 mg/dL 10/28/2024 12:35 AM [facility] Globulin 3.2 gm/dL 10/28/2024 12:35 AM [facility] Comment:Calculated Result A/G Ratio 1.3 g/dL 10/28/2024 12:35 AM [facility] BUN/Creatinine Ratio 20.1 7.0 - 25.0 10/28/2024 12:35 AM [facility] Anion Gap 14.2 5.0 - 15.0 mmol/L 10/28/2024 12:35 AM [facility] eGFR 65.6 >60.0 mL/min/1.7 3 10/28/2024 12:35 AM [facility] Blood Venipuncture / Unknown 10/27/2024 11:54 PM EDT 10/28/2024 12:04 AM [facility] - 10/28/2024 12:35 [...] PA-C LAB BLOOD ORDERABLES Final Result [facility]
[address] [place] [address], * MRI Brain Without Contrast (10/27/2024 7:22 PM EDT) Anatomical Region Laterality Modality Head, Neck N/A Magnetic Resonan ce 10/27/2024 10:1 5 PM EDT Impressions 10/27/2024 10:17 PM EDT Impression: Advanced chronic and age-related changes are noted as above. There is otherwise no evidence of acute infarct, hemorrhage, mass or mass effect. Electronically Signed: Saulo Romo MD 10/27/2024 10:17 PM EDT Workstation ID: [id number] Narrative 10/27/2024 10:17 PM EDT MRI BRAIN [...] MD 10/27/2024 10:17 PM EDT Workstation ID: [id number] Lamont Hernandez PA-C IMSarah MRI ORDERABLES Final Res ult * POC Glucose Once (10/27/2024 5:38 PM EDT) Only the most recent of3 resultswithin the time period is included. Glucose 117 70 - 130 mg/dL 10/27/2024 5:39 PM EDT [facility] Blood 10/27/2024 5:38 PM EDT 10/27/2024 5:39 PM EDT Saeed Monique MD POINT OF CARE TEST ORDERABLES Final Result [facility]
[address] [place] [address], * Urine Drug Screen - Urine, Clean Catch (10/27/2024 3:18 PM EDT) [facility] Signature THC, Screen, Urine Negative Negative 2024 4:17 PM EDT [facility] Phencyclidine (PCP), Urine Negative Negative 10/27/2024 4:17 PM EDT [facility] Cocaine Screen, Urine Negative Negative 10/27/2024 4:17 PM EDT [facility] Methamphetamine, Ur Negative Negative 10/27 4:17 PM EDT [facility] Opiate Screen Negative Negative 10/27/2024 4:17 PM EDT [facility] Amphetamine Screen, Urine Negative Negative 10/27/2024 4:17 PM EDT [facility] Benzodiazepine Screen, Urine Negative Negative 10/27/2024 4:17 PM EDT [facility] Tricyclic Antidepressants Screen Negative Negative 10/27/2024 4:17 PM EDT [facility] Methadone Screen, Urine Negative Negative 10/27/2024 4:17 PM EDT [facility] Barbiturates Screen, Urine Negative Negative 10/27/2024 4:17 PM EDT [facility] Oxycodone Screen, Urine Negative Negative 10/27/2024 4:17 PM EDT [facility] Buprenorphine, Screen, Urine Negative Negative 10/27/2024 4:17 PM T [facility] Urine Urine specimen obtained by clean catch procedure / Unknown Collection / Unknown 10/27/2024 3:18 PM EDT 10/27/2024 3:27 PM EDT [facility] - 10/27/2024 4:17 PM EDT [...] URINE ORDERABLES Final Result Performing Organization Address [facility] de Phone Number [facility]
[address] [place] [address], * Fentanyl, Urine - Urine, Clean Catch (10/27/2024 3:18 PM EDT) [facility] Signature Fentanyl, Urine Negative Negative 10/27/2024 4:39 PM EDT [facility] Urine Urine specimen obtained by clean catch procedure / Unknown Collection / Unknown 10/27/2024 3:18 PM EDT 10/27/2024 3:27 PM EDT Narrative [facility] - 10/27/2024 4:39 PM EDT [...] URINE ORDERABLES Final Result Performing Organization Address [facility] de Phone Number [facility]
[address] [place] [address], [place] [phone] * EEG AWAKE OR DROWSY PORTABLE (10/27/2024 12:15 PM EDT) [facility] NEUROLOGY - 10/27/2024 2:48 PM EDT History: [...] ORDERABLES Fi nal Result Performing Organization Address [facility] Co de Phone Number NEUROLOGY * Hemoglobin A1c (10/27/2024 9:46 AM EDT) Hemoglobin A1C 5.33 4.80 - 5.60 % 10/27/2024 12:28 PM EDT [facility] Blood Venipuncture / Unknown 10/27/2024 9:46 AM EDT 10/27/2024 10:40 AM EDT Narrative [facility] - 10/27/2024 12:28 PM EDT Hemoglobin A1C Ranges: Increased Risk for Diabetes 5.7% to 6.4% Diabetes >= 6.5% Diabetic Goal < 7.0% Lamont Hernandez PA-C LAB BLOOD ORDERABLES Final R esult Performing Organization Address City/[facility]/ZIP Co de Phone Number [facility]
[address] [place] [address], * Lipid Panel (10/27/2024 9:46 AM EDT) Total Cholesterol 138 0 - 200 mg/dL 10/27/2024 11:15 AM EDT [facility] Triglycerides 42 0 - 150 mg/dL 10/27/2024 11:15 AM EDT [facility] HDL Cholesterol 56 40 - 60 mg/dL 10/27/2024 11:15 AM EDT [facility] LDL Cholesterol 72 0 - 100 mg/dL 10/27/2024 11:15 AM EDT [facility] VLDL Cholesterol 10 5 - 40 mg/dL 10/27/2024 11:15 AM EDT [facility] LDL/HDL Ratio 1.31 10/27/2024 11:15 AM EDT [facility] Blood Venipuncture / Unknown 10/27/2024 9:46 AM EDT 10/27/2024 10:39 AM EDT [facility] - 10/27/2024 11:15 AM EDT [...] PA-C LAB BLOOD ORDERABLES Final R esult [facility]
[address] [place] [address], * (ABNORMAL) CK (10/26/2024 11:21 PM EDT) Creatine Kinase 245(H) 20 - 200 U/L 10/27/2024 12:01 AM EDT [facility] Blood Venipuncture / Unknown 10/26/2024 11:21 PM EDT 10/26/2024 11:34 PM EDT us May Barbara WAREDRESSER LAB BLOOD ORDERABLES Fi nal Result [facility]
[address] [place] [address], [place] [phone] * CT Outside Head (10/26/2024 12:10 AM [...] 3 Months Insurance [employer] Care Teams Inspector Outside [employer] Relationship Specialty Start Date End Date Provider, [place] [address] PCP - General 10/26/24
--- OUTSIDE RECORDS SUMMARY | 2024-12-28 12:16 | XMS_ITS | Encounter Summary ---
Author Organization [facility] Address [address] [place] [address] Care Team Providers Care Printed Circuit Layout Taper Name Role Phone Provider, No Known Primary Care Provider Unavail able Encounter Details Date Type Department Care Team (Late st Contact Info) Description 11/09/2024 Readmission Management [facility] [address] [place] [phone] Isabel Sal RN Social History Tobacco Use Types Packs/Day Years Used Date Smoking Tobacco: Never Assessed [facility] Utilities Answer Date Recorded In the past 12 months has th [employer], gas, oil, or water [employer] threatened to shut off services in your [...] GED or equivalent No 10/29/2024 Preferred Language Solomon Islander 10/29/2024 Sex and Gender Information Value Date Recorded Sex Assigned at Not on file Legal Sex Male 4:14 PM EDT Gender Identity Not on file Sexual Orientation Not on file documented as of this encounter Miscellaneous Notes * Outreach Note - Isabel Sal RN - 11/09/2024 12:15 PM EDT Medical Week 1 Survey Flowsheet Row [facility] the [facility] have one of [...] No Comments regarding PCP [place], per dtr [place] nurse case advocate from [place] is working on all the f/uappts for the [place] What is the Home health agency? HH comes thru [place] pt's home. Has home health visited [...] on filedocumented in this encounter Care Teams Printed Circuit Layout Taper Relationship Specialty Start Date End Date Provider, [place] [address] PCP - General 10/26/24 documented as of this encounter
--- OUTSIDE RECORDS SUMMARY | 2024-12-28 12:16 | XMS_ITS | Encounter Summary ---
Author Organization [facility] Address [address] [place] [address] Care Team Providers Care Medical Transcription Editor Name Role Phone Provider, No Known Primary Care Provider Unavail able Encounter Details Date Type Department Care Team (Late st Contact Info) Description 12/13/2024 Readmission Management [facility] [address] [place] [phone] Mirtha Iyer Social History Tobacco Use Types Packs/Day Years Used Date Smoking Tobacco: Never Assessed [facility] Utilities Answer Date Recorded In the past 12 months has th [employer] electric, gas, oil, or water [employer] threatened to shut off services in your [...] GED or equivalent No 10/29/2024 Preferred Language Canadian 10/29/2024 Sex and Gender Information Value Date Recorded Sex Assigned at Not on file Legal Sex Male 4:14 PM EDT Gender Identity Not on file Sexual Orientation Not on file documented as of this encounter Miscellaneous Notes * Outreach Note - Mirtha Iyer - 12/13/2024 7:16 AM EDT Prep Survey Flowsheet Row Responses [facility] patient discharged from? [place] Does the patient have one of the following disease processes/diagnoses(primary or secondary)? Other Mirtha Fuentes - Coordinator documented in this encounter Plan of Treatment Not on file documented as of this encounter Visit Diagnoses Not on filedocumented in this encounter Care Teams Medical Transcription Editor Relationship Specialty Start Date End Date Provider, No Known [facility] [place] [address] PCP - General 10/26/24 documented as of this encounter
[2024-12-28 14:01] LABS: Iron 31 ug/dL (49-181)
[2024-12-28 14:16] LABS: Total Iron Binding Capacity 239 ug/dL (261-462)
--- NOTE | 2024-12-28 14:24 | P.PN_ITS ---
Subjective *Date: 12/28/24 *Time: 14:24 Interval history: Patient a lot more alert and oriented today, confusion resolved. Denies chest pain, shortness of breath. Exam Data for Last 24 hours Vital signs and Labs for Last 24 Hours: Temp Pulse Resp BP Pulse Ox O2 Del Method 97.7 F 79 17 122/73 93 L Room Air 12/28/24 12:00 12/28/24 12:00 12/28/24 12:00 12/28/24 12:00 12/28/24 12:00 12/28/24 13:00 Laboratory Results - last 24 hr 12/27/24 09:30: C-Reactive Protein 23.1 H, NT-Pro-B Natriuret Pep 52773 H, Procalcitonin 0.057 12/27/24 14:17: Lactate 1.9 12/27/24 17:35: Troponin I 0.09 H 12/28/24 05:19: WBC 4.3 L, RBC 4.48 L, Hgb 12.4 L, Hct 35.4 L, MCV 79.0 L, MCH 27.7, MCHC 35.0, RDW 15.0, Plt Count 114 L, MPV 10.3, Neut % (Auto) 53.4, Lymph % (Auto) 23.8, Duchesne % (Auto) 21.9 H, Eos % (Auto) 0.5, Baso % (Auto) 0.2, Neut # (Auto) 2.3, Lymph # (Auto) 1.0, Duchesne # (Auto) 0.9, Eos # (Auto) 0.0, Baso # (Auto) 0.0, Sodium 138, Potassium 3.8, Chloride 107, Carbon Dioxide 27, Anion Gap 7.8, BUN 17, Creatinine 1.10, Estimated Creat Clear 49, Estimated GFR 63, Est GFR ( Amer) 76, Glucose 83 D, Hemoglobin A1c 5.8, Calcium 8.2 L, Magnesium 1.8, Iron 31 L, TIBC 239 L, Iron Saturation 12.02745 L, Total Bilirubin 0.8, AST 38, ALT 42 D, Alkaline Phosphatase 75, Troponin I 0.12 H, Total Protein 5.5 L, Albumin 3.0 L D, Globulin 2.5, Albumin/Globulin Ratio 1.2, Vitamin B12 473 12/28/24 05:19: Vitamin B12 Cancelled, Folate 10.10, TSH 1.01 12/28/24 11:53: POC Glucose 147 H I & O for Last 24 hours: Intake & Output 12/25/24 12/26/24 12/27/24 12/28/24 23:59 23:59 23:59 23:59 Intake Total 220 / 340 480 / 480 Output Total 1000 / 1200 1400 / 1400 Balance -780 / -860 -920 / -920 Weight 76.459 kg 76.5 kg Microbiology Reports for the Last 24 Hours: Microbiology 12/27/24 09:35 Blood Blood Culture - Preliminary NO GROWTH AFTER 24 HOURS 12/27/24 09:30 Blood Blood Culture - Preliminary NO GROWTH AFTER 24 HOURS Constitutional Constitutional: no acute distress *Routine HEENT Exam Head: Present normocephalic Eye: Present EOMI and PERRL ENT: Present mucous membranes moist *Routine Neck Exam Neck: Present supple; Absent lymphadenopathy *Routine Respiratory Exam Respiratory: Present CTA bilaterally *Routine Cardiovascular Exam Cardiovascular: Present RRR *Routine Abdominal Exam Abdominal: Present soft and normoactive bowel sounds; Absent tenderness *Routine Extremities Exam Extremities: Present edema; Absent cyanosis or clubbing *Routine Skin Exam Skin: Present warm; Absent rash *Routine Neurological Exam Neurological: Present alert Assessment and Plan *Assessment and plan (1) Acute UTI: Status: Acute Category: Medical Code(s): N39.0 - Urinary tract infection, site not specified (2) Ischemic stroke of frontal lobe: Status: Acute Category: Medical Code(s): I63.9 - Cerebral infarction, unspecified (3) HFrEF (heart failure with reduced ejection fraction): Status: Acute Category: Medical Code(s): I50.20 - Unspecified systolic (congestive) heart failure Plan Oumar Burnham is a 89-year-old male with an unclear medical history presents via EMS due to altered mental status. Per ED provider and EMS, daughter requested caregiver to check on patient as she had not heard from him in a few days. Upon arrival, caregiver found patient to be lying on the floor incomprehensible, covered with his own urine, and therefore EMS was called. Patient was recently transferred to [facility] for suspected left posterior frontal stroke, but upon my discussion with the patient he states that this was not a stroke. Will obtain records from [facility]. Patient was drowsy on my evaluation, but would answer a few questions and otherwise doze off. Denies chest pain, shortness of breath but does endorse some abdominal deric n. Workup in the ED significant for VBG pH 7.28, lactic acid 2.8, BNP 23,000, CK is 373, UA positive for LE, blood, and trace bacteria. CTA chest suggestive of worsening bilateral pleural effusions, enlarged heart, and ground glass opacities favoring pulmonary edema left lower lobe nodules were also seen, interval development within the last month. Patient was given ceftriaxone 2 g in the ED. Given these findings, ED provider discussed case with manage decided to admit patient for heart failure exacerbation, acute metabolic encephalopathy, possible community-acquired pneumonia. #HFrEF exacerbation #Bilateral pleural effusions #NSTEMI #Hypertension ? Initial BNP 23,000 with pulmonary edema seen on CTA chest 12/27/2024. ? ECHO 12/28/2024 shows LVEF 20 to 25%, akinesis of septal, anteroseptal, inferoseptal LV agarwal, moderate to severe MR, elevated RVSP 50 to 55 mmHg. ? Cardiology following, recommend aggressive IV diuresis overnight and follow-up response. If patient does not have a good response, will consider milrinone tomorrow. Avoid beta-blockers at this time, high risk for cardiogenic shock with LVEF. ? Continue IV Lasix 40 mg twice daily, spironolactone 25 mg, Entresto 24/26 mg (improved BP). Will consider further GDMT when patient is more euvolemic. ? Troponins peaked at 0.12, patient without chest pain or shortness of breath. EKG without acute ischemic changes. Will need inpatient ischemic workup with [facility], likely on Tuesday. Continue therapeutic Lovenox. ? Continue aspirin 81 mg, Plavix 75 mg, atorvastatin 40 mg. ? A1c 5.8%, LDL 40, TSH normal. ? Follow-up morning CMP. #A-fib ? Initial EKG with A-fib RVR, now rate controlled. ? Started therapeutic Lovenox. #Acute metabolic encephalopathy, resolved #Suspected UTI #Urinary retention, obstructive uropathy ? UA grossly abnormal, urine culture pending. ? Mentation significantly improved today, alert and oriented. ? Continue IV ceftriaxone 2 g daily, follow-up cultures. ? Resumed home finasteride, tamsulosin. #Pulmonary nodules ? CTA chest suggestive of left lower lobe nodules with interval development in the last month. ? Pulmonology consulted, nodules likely infectious. Recommend continue antibiotics. ? Continue ceftriaxone 2 g daily, doxycycline 100 mg twice daily day 2 pending pulmonology evaluation. #Rhabdomyolysis ? Initial CK 373, no renal dysfunction at this time. ? Continue conservative management at this time. #Possible chronic stroke ? Recently transferred to [facility] for left frontal CVA. Will obtain records. ? Continue aspirin 81 mg, Plavix 75 mg, atorvastatin 40 mg. Full code DVT prophylaxis: Therapeutic Lovenox as above
[2024-12-28] MEDS: IRON SUCROSE COMPLEX 200 MG in 0.9 % SODIUM CHLORIDE 100 ML 220 MG IV (14:52)
[2024-12-28] MEDS: FINASTERIDE 5MG TABLET 5 MG PO (15:01)
[2024-12-28 15:29] LABS: Ferritin 64.9 ng/ml (17.9-464)
[2024-12-28] MEDS: ATORVASTATIN 40MG TABLET 40 MG PO (20:18)
[2024-12-28] MEDS: PANTOPRAZOLE 40MG TABLET 40 MG PO (20:18)
[2024-12-28] MEDS: TAMSULOSIN 0.4MG CAPSULE 0.8 MG PO (20:19)
[2024-12-29] VITALS (11 sets, daily range): BP systolic 105–124; BP diastolic 46–81; PULSE 71–109; RESP 12–18; TEMP 36.4–37.1; O2SAT 94–100; BMI 21.9
--- NOTE | 2024-12-29 02:01 | PC.NURSE ---
Pt AOx2. VSS. No significant changes at this time. Pt is currently resting in bed with eyes closed. Respirations even and unlabored. Bed is low, locked, and call light is in reach.
[2024-12-29 06:38] LABS: Hematocrit 34.8 % (42.0-52.0); Hemoglobin 12.7 g/dL (14.1-18.0); Immature Granulocytes % 0 %; Mean Corpuscular HGB Conc 36.5 g/dL (31.8-35.4); Mean Corpuscular Hemoglobin 28.8 pg (27.0-31.2); Mean Corpuscular Volume 78.9 fl (80-94); Nucleated Red Blood Cells % 0 %; Platelet Count 105 K/mm3 (142-424); Red Blood Count 4.41 M/mm3 (4.60-6.20); Red Cell Distribution Width-SD 42.5 fL; White Blood Count 4.4 K/mm3 (4.8-10.8)
[2024-12-29 06:53] LABS: Alanine Aminotransferase 38 U/L (12-78); Albumin Level 2.8 g/dl (3.5-5.0); Albumin/Globulin Ratio 1.2 (1.1-1.8); Alkaline Phosphatase 67 U/L (38-126); Anion Gap 6.7 mEq/L (5-15); Aspartate Amino Transferase 43 U/L (17-59); Bilirubin,Total 0.7 mg/dl (0.2-1.3); Blood Urea Nitrogen 20 mg/dl (9-20); Calcium 7.8 mg/dl (8.4-10.2); Carbon Dioxide 30 mmol/L (22.0-30.0); Chloride 102 mmol/L (98-107); Creatinine Clearance Estimated 43 mL/min (50-200); Creatinine,Serum 1.20 mg/dl (0.66-1.25); Estimated Glomerular Filt Rate 57 ml/min (>60); GFR (African American) 69 ML/MIN (>60); Globulin 2.4 g/dL (1.3-3.2); Glucose 86 mg/dl (74-100); Magnesium 1.7 mg/dl (1.6-2.3); Potassium 3.7 mmoL/L (3.5-5.1); Sodium 135 mmol/L (136-145); Total Protein,Serum 5.2 g/dl (6.3-8.2)
[2024-12-29] MEDS: IPRATROPIUM/ALBUTEROL 3 ML NEB IH ×3 (07:15→18:13)
[2024-12-29] MEDS: DOXYCYCLINE HYCL 100 MG TABLET PO ×2 (08:24→20:00)
[2024-12-29] MEDS: CLOPIDOGREL 75MG TAB 75 MG PO (08:24)
[2024-12-29] MEDS: ASPIRIN EC 81MG TABLET 81 MG PO (08:24)
[2024-12-29] MEDS: POLYETHYLENE GLYCOL 3350 17 GM PACKET PO (08:25)
[2024-12-29] MEDS: SPIRONOLACTONE 25MG TABLET 25 MG PO (08:25)
[2024-12-29] MEDS: FINASTERIDE 5MG TABLET 5 MG PO (08:25)
[2024-12-29] MEDS: SACUBITRIL/VALSARTAN 24-26MG TABLET 1 EACH PO ×2 (08:25→20:00)
[2024-12-29 09:36] LABS: Ferritin 127 ng/ml (17.9-464)
[2024-12-29] MEDS: FUROSEMIDE 40MG/4ML VIAL 40 MG IV (11:32)
[2024-12-29 11:40] LABS: POC Glucose,Bedside 105 gm/dL (70-110)
--- NOTE | 2024-12-29 17:28 | EXP.PN ---
Subjective *Date: 12/29/24 *Time: 17:28 Interval history: Patient doing well, no concerns today. Daughter at bedside updated on plan. States she does not want patient to go back to [facility]. Exam Data for Last 24 hours Vital signs and Labs for Last 24 Hours: Temp Pulse Resp BP Pulse Ox O2 Del Method 97.9 F 97 H 18 114/46 L 96 Room Air 12/29/24 16:00 12/29/24 16:00 12/29/24 16:00 12/29/24 16:00 12/29/24 16:00 12/29/24 17:05 Laboratory Results - last 24 hr 12/29/24 06:15: WBC 4.4 L, RBC 4.41 L, Hgb 12.7 L, Hct 34.8 L, MCV 78.9 L, MCH 28.8, MCHC 36.5 H, RDW 14.7, Plt Count 105 L, MPV 10.6 H, Neut % (Auto) 46.2, Lymph % (Auto) 28.7, Wright % (Auto) 21.9 H, Eos % (Auto) 2.5, Baso % (Auto) 0.7, Neut # (Auto) 2.0, Lymph # (Auto) 1.3, Wright # (Auto) 1.0, Eos # (Auto) 0.1, Baso # (Auto) 0.0, Sodium 135 L, Potassium 3.7, Chloride 102, Carbon Dioxide 30, Anion Gap 6.7, BUN 20, Creatinine 1.20, Estimated Creat Clear 43, Estimated GFR 57 L, Est GFR ( Amer) 69, Glucose 86, Calcium 7.8 L, Magnesium 1.7, Ferritin 127 D, Total Bilirubin 0.7, AST 43, ALT 38, Alkaline Phosphatase 67, Total Protein 5.2 L, Albumin 2.8 L, Globulin 2.4, Albumin/Globulin Ratio 1.2 12/29/24 11:26: POC Glucose 105 I & O for Last 24 hours: Intake & Output 12/26/24 12/27/24 12/28/24 12/29/24 23:59 23:59 23:59 23:59 Intake Total 220 / 340 1290 / 1530 1060 / 1060 Output Total 1000 / 1200 2650 / 3850 3350 / 3350 Balance -780 / -860 -1360 / -2320 -2290 / -2290 Weight 76.459 kg 76.5 kg 73.391 kg Microbiology Reports for the Last 24 Hours: Microbiology 12/27/24 09:35 Blood Blood Culture - Preliminary NO GROWTH AFTER 48 HOURS 12/27/24 09:30 Blood Blood Culture - Preliminary NO GROWTH AFTER 48 HOURS 12/27/24 09:45 Urine,Clean Catch Urine Culture - Final NO GROWTH AFTER 48 HOURS Constitutional Constitutional: no acute distress *Routine HEENT Exam Head: Present normocephalic Eye: Present EOMI and PERRL ENT: Present mucous membranes moist *Routine Neck Exam Neck: Present supple; Absent lymphadenopathy *Routine Respiratory Exam Respiratory: Present CTA bilaterally *Routine Cardiovascular Exam Cardiovascular: Present RRR *Routine Abdominal Exam Abdominal: Present soft and normoactive bowel sounds; Absent tenderness *Routine Extremities Exam Extremities: Absent cyanosis, clubbing or edema *Routine Skin Exam Skin: Present warm; Absent rash *Routine Neurological Exam Neurological: Present alert Assessment and Plan *Assessment and plan (1) Acute UTI: Status: Acute Category: Medical Code(s): N39.0 - Urinary tract infection, site not specified (2) Ischemic stroke of frontal lobe: Status: Acute Category: Medical Code(s): I63.9 - Cerebral infarction, unspecified (3) HFrEF (heart failure with reduced ejection fraction): Status: Acute Category: Medical Code(s): I50.20 - Unspecified systolic (congestive) heart failure Plan Oumar Burnham is a 89-year-old male with an unclear medical history presents via EMS due to altered mental status. Per ED provider and EMS, daughter requested caregiver to check on patient as she had not heard from him in a few days. Upon arrival, caregiver found patient to be lying on the floor incomprehensible, covered with his own urine, and therefore EMS was called. Patient was recently transferred to [facility] for suspected left posterior frontal stroke, but upon my discussion with the patient he states that this was not a stroke. Will obtain records from [facility]. Patient was drowsy on my evaluation, but would answer a few questions and otherwise doze off. Denies chest pain, shortness of breath but does endorse some abdominal pain. Workup in the ED significant for VBG pH 7.28, lactic acid 2.8, BNP 23,000, CK is 373, UA positive for LE, blood, and trace bacteria. CTA chest suggestive of worsening bilateral pleural effusions, enlarged heart, and ground glass opacities favoring pulmonary edema left lower lobe nodules were also seen, interval development within the last month. Patient was given ceftriaxone 2 g in the ED. Given these findings, ED provider discussed case with manage decided to admit patient for heart failure exacerbation, acute metabolic encephalopathy, possible community-acquired pneumonia. #HFrEF exacerbation #Bilateral pleural effusions #NSTEMI #Hypertension ? Initial BNP 23,000 with pulmonary edema seen on CTA chest 12/27/2024. ? ECHO 12/28/2024 shows LVEF 20 to 25%, akinesis of septal, anteroseptal, inferoseptal LV agarwal, moderate to severe MR, elevated RVSP 50 to 55 mmHg. ? Cardiology following, recommend continuing IV diuresis for the weekend. Good response, net -4.5 L. Avoid beta-blockers at this time, high risk for cardiogenic shock with LVEF. ? Continue IV Lasix 40 mg daily, spironolactone 25 mg, Entresto 24/26 mg (improved BP). Will consider further GDMT when patient is more euvolemic. ? Troponins peaked at 0.12, patient without chest pain or shortness of breath. EKG without acute ischemic changes. Will need inpatient ischemic workup with [facility], likely on Tuesday. Continue therapeutic Lovenox. ? Continue aspirin 81 mg, Plavix 75 mg, atorvastatin 40 mg. ? A1c 5.8%, LDL 40, TSH normal. ? Follow-up morning CMP, magnesium. Renal function stable, creatinine 1.2, GFR 57. #A-fib ? Initial EKG with A-fib RVR, now rate controlled. ? Continue therapeutic Lovenox. #Acute metabolic encephalopathy, resolved #Urinary retention, obstructive uropathy ? UA grossly abnormal, urine culture pending. ? Mentation significantly improved, alert and oriented. ? Urine culture normal on 12/29/2024. ? Continue home finasteride, tamsulosin. Will need voiding challenge tomorrow. #Pulmonary nodules ? CTA chest on admission suggestive of left lower lobe nodules with interval development in the last month. ? Pulmonology following, nodules likely infectious. Recommend continue antibiotics. ? Continue ceftriaxone 2 g daily, doxycycline 100 mg twice daily day 3. #Rhabdomyolysis ? Initial CK 373, no renal dysfunction at this time. ? Continue conservative management at this time. # Previous TIA ? Recently transferred to [facility] for right-sided weakness, MRI at [facility] normal. Recommended only aspirin. ? Continue aspirin 81 mg, atorvastatin 40 mg. Full code DVT prophylaxis: Therapeutic Lovenox as above
[2024-12-29] MEDS: ATORVASTATIN 40MG TABLET 40 MG PO (20:00)
[2024-12-29] MEDS: TAMSULOSIN 0.4MG CAPSULE 0.8 MG PO (20:00)
[2024-12-29] MEDS: PANTOPRAZOLE 40MG TABLET 40 MG PO (20:05)
[2024-12-30] VITALS (12 sets, daily range): BP systolic 109–140; BP diastolic 64–91; PULSE 57–115; RESP 14–20; TEMP 36.5–37.4; O2SAT 95–100; BMI 21.2
[2024-12-30] MEDS: IPRATROPIUM/ALBUTEROL 3 ML NEB IH ×4 (00:13→23:12)
--- NOTE | 2024-12-30 04:15 | PC.NURSE ---
Patient is alert to self, recites his name and year. He has remained pleasantly confused to place and situation this shift but expressed awareness of time of day. Patient is dependent on others for several aspects of his care. Repositioned/turned as necessary. He was observed to be resting in bed with eyes closed, respirations were even/unlabored but occasionally interrupted by a strong cough (moist, loose), and he has been in no apparent distress throughout the night. Diminished lung sounds, irregular heart rhythm, and active bowel sounds (no bowel movement this shift) were heard upon auscultation. Scheduled medications were administered per JUN; patient consumed pills whole without difficulty. Breathing treatments were administered by RTs per JUN as well. He has not expressed any difficulties with breathing, aside from just coughing; oxygen saturations remain > 90%. Assistance with feeding provided. Patient has not been able to expel any sputum this shift, so, a sputum sample remains uncollected. Benjamin catheter remains intact for urinary retention/to monitor urinary output. He requires max assistance during transfers. Abrasion/scab noted to right rosales. At this time, the patient is resting in bed without any further complaints. No new needs thus far. Bed alarm on. Call light within reach.
[2024-12-30 06:33] LABS: Hematocrit 36.1 % (42.0-52.0); Hemoglobin 12.3 g/dL (14.1-18.0); Immature Granulocytes % 0.2 %; Mean Corpuscular HGB Conc 34.1 g/dL (31.8-35.4); Mean Corpuscular Hemoglobin 27.3 pg (27.0-31.2); Mean Corpuscular Volume 80.2 fl (80-94); Nucleated Red Blood Cells % 0 %; Platelet Count 114 K/mm3 (142-424); Red Blood Count 4.50 M/mm3 (4.60-6.20); Red Cell Distribution Width-SD 43.9 fL; White Blood Count 5.3 K/mm3 (4.8-10.8)
[2024-12-30 06:53] LABS: Alanine Aminotransferase 38 U/L (12-78); Albumin Level 2.9 g/dl (3.5-5.0); Albumin/Globulin Ratio 1.2 (1.1-1.8); Alkaline Phosphatase 65 U/L (38-126); Anion Gap 8.1 mEq/L (5-15); Aspartate Amino Transferase 43 U/L (17-59); Bilirubin,Total 0.7 mg/dl (0.2-1.3); Blood Urea Nitrogen 18 mg/dl (9-20); Calcium 7.8 mg/dl (8.4-10.2); Carbon Dioxide 29 mmol/L (22.0-30.0); Chloride 103 mmol/L (98-107); Creatinine Clearance Estimated 39 mL/min (50-200); Creatinine,Serum 1.30 mg/dl (0.66-1.25); Estimated Glomerular Filt Rate 52 ml/min (>60); GFR (African American) 63 ML/MIN (>60); Globulin 2.4 g/dL (1.3-3.2); Glucose 88 mg/dl (74-100); Magnesium 1.7 mg/dl (1.6-2.3); Potassium 4.1 mmoL/L (3.5-5.1); Sodium 136 mmol/L (136-145); Total Protein,Serum 5.3 g/dl (6.3-8.2)
--- NOTE | 2024-12-30 07:57 | P.PN_ITS ---
Subjective *Date: 12/30/24 *Time: 07:57 Medical Exam Vital signs and Labs for Last 24 Hours: Vital Signs Temp Pulse Pulse Pulse Resp BP Pulse Ox 12/30/24 07:05 89 12/30/24 07:05 88 12/30/24 07:05 99 12/30/24 06:45 12/30/24 05:00 12/30/24 04:00 98.3 F 110 H 16 109/67 L 95 12/30/24 03:00 12/30/24 01:00 12/30/24 00:13 83 12/30/24 00:13 83 12/30/24 00:00 99.3 F 115 H 16 122/72 96 12/29/24 23:00 12/29/24 21:00 12/29/24 20:00 12/29/24 19:53 82 12/29/24 19:52 87 12/29/24 19:34 98.1 F 71 14 124/58 L 95 12/29/24 18:44 12/29/24 17:05 12/29/24 16:00 97.9 F 97 H 18 114/46 L 96 12/29/24 16:00 96 12/29/24 15:05 12/29/24 13:15 12/29/24 12:00 97.5 F L 98 H 18 105/71 L 94 L 12/29/24 11:50 82 12/29/24 11:50 82 12/29/24 11:00 12/29/24 09:00 12/29/24 08:00 96 12/29/24 08:00 96 O2 Del Method 12/30/24 07:05 12/30/24 07:05 12/30/24 07:05 Room Air 12/30/24 06:45 Room Air 12/30/24 05:00 Room Air 12/30/24 04:00 Room Air 12/30/24 03:00 Room Air 12/30/24 01:00 Room Air 12/30/24 00:13 12/30/24 00:13 12/30/24 00:00 Room Air 12/29/24 23:00 Room Air 12/29/24 21:00 Room Air 12/29/24 20:00 Room Air 12/29/24 19:53 12/29/24 19:52 12/29/24 19:34 Room Air 12/29/24 18:44 Room Air 12/29/24 17:05 Room Air 12/29/24 16:00 Room Air 12/29/24 16:00 Room Air 12/29/24 15:05 Room Air 12/29/24 13:15 Room Air 12/29/24 12:00 Room Air 12/29/24 11:50 12/29/24 11:50 12/29/24 11:00 Room Air 12/29/24 09:00 Room Air 12/29/24 08:00 Room Air 12/29/24 08:00 Room Air Intake and Output 12/29/24 12/29/24 12/30/24 15:59 23:59 07:59 Intake Total 820 / 1450 270 / 1450 120 / 120 Output Total 650 / 3900 1400 / 3900 1125 / 1125 Balance 170 / -2450 -1130 / -2450 -1005 / -1005 Intake: Intake, Oral Amount 720 / 1350 270 / 1350 120 / 120 Intake, Total IV Amount 100 / 100 Ceftriaxone Sodium 2 gm In 0.9 100 / 100 % Sodium Chloride 100 ml @ 200 mls/hr IV Q24H [facility] Rx#:[id number] Output: Output, Urine Amount 650 / 3900 1400 / 3900 1125 / 1125 Other: Number of Unmeasured Voids 0 0 Weight 71.169 kg Patient Weight 12/30/24 23:59 Weight 71.169 kg Laboratory Results - last 24 hr 12/29/24 06:15: Ferritin 127 D 12/29/24 11:26: POC Glucose 105 12/30/24 06:10: WBC 5.3, RBC 4.50 L, Hgb 12.3 L, Hct 36.1 L, MCV 80.2, MCH 27.3, MCHC 34.1, RDW 15.1, Plt Count 114 L, MPV 10.1, Neut % (Auto) 40.0, Lymph % (Auto) 30.9, Bond % (Auto) 22.3 H, Eos % (Auto) 6.0, Baso % (Auto) 0.6, Neut # (Auto) 2.1, Lymph # (Auto) 1.6, Bond # (Auto) 1.2 H, Eos # (Auto) 0.3, Baso # (Auto) 0.0, Sodium 136, Potassium 4.1, Chloride 103, Carbon Dioxide 29, Anion Gap 8.1, BUN 18, Creatinine 1.30 H, Estimated Creat Clear 39, Estimated GFR 52 L , Est GFR ( Amer) 63, Glucose 88, Calcium 7.8 L, Magnesium 1.7, Total Bilirubin 0.7, AST 43, ALT 38, Alkaline Phosphatase 65, Total Protein 5.3 L, Albumin 2.9 L, Globulin 2.4, Albumin/Globulin Ratio 1.2 I & O for Labs for Last 24 Hours: Intake & Output 12/27/24 12/28/24 12/29/24 12/30/24 23:59 23:59 23:59 23:59 Intake Total 220 / 340 1290 / 1530 1330 / 1450 120 / 120 Output Total 1000 / 1200 2650 / 3850 3650 / 3900 1125 / 1125 Balance -780 / -860 -1360 / -2320 -2320 / -2450 -1005 / -1005 Weight 76.459 kg 76.5 kg 73.391 kg 71.169 kg Microbiology Reports for the Last 24 Hours: Microbiology 12/27/24 09:35 Blood Blood Culture - Preliminary NO GROWTH AFTER 48 HOURS 12/27/24 09:30 Blood Blood Culture - Preliminary NO GROWTH AFTER 48 HOURS 12/27/24 09:45 Urine,Clean Catch Urine Culture - Final NO GROWTH AFTER 48 HOURS The patient's infection will respond to the chosen ABx?: Yes (URINE CX AND BLOOD CX NO GROWTH AT 48 HR, AFEBRILE OVER 24 HR.) Is the patient receiving the right drug, dose, and route?: Yes Could a more targeted ABx be ordered?: No How long ABx needed (days)?: 5
[2024-12-30] MEDS: CLOPIDOGREL 75MG TAB 75 MG PO (08:30)
[2024-12-30] MEDS: POLYETHYLENE GLYCOL 3350 17 GM PACKET PO (08:30)
[2024-12-30] MEDS: FUROSEMIDE 40MG/4ML VIAL 40 MG IV (08:30)
[2024-12-30] MEDS: FINASTERIDE 5MG TABLET 5 MG PO (08:30)
[2024-12-30] MEDS: SPIRONOLACTONE 25MG TABLET 25 MG PO (08:30)
[2024-12-30] MEDS: ASPIRIN EC 81MG TABLET 81 MG PO (08:30)
[2024-12-30] MEDS: DOXYCYCLINE HYCL 100 MG TABLET PO ×2 (08:30→20:19)
[2024-12-30] MEDS: SACUBITRIL/VALSARTAN 24-26MG TABLET 1 EACH PO (08:30)
[2024-12-30] MEDS: SODIUM CHLORIDE 3% 15ML NEB 3 ML IH (11:40)
[2024-12-30] MEDS: GUAIFENESIN/DEXTROMETHORPHAN 200MG/20MG 10ML UDC 10 ML PO ×2 (14:30→21:40)
[2024-12-30 14:47] LABS: Adenovirus,PCR Not Detected (NotDetected); Chlamydophila Pneumoniae, PCR Not Detected (NotDetected); Coronovirus HKU1,PCR Not Detected (NotDetected); Influenza A, PCR Not Detected (NotDetected); Influenza AH1, 2009 Not Detected (NotDetected); Influenza AH1, PCR Not Detected (NotDetected); Influenza AH3,PCR Not Detected (NotDetected); Influenza B, PCR Not Detected (NotDetected); Mycoplasma Pneumoniae, PCR Not Detected (NotDetected); Parainfluenza 1, PCR Not Detected (NotDetected); Parainfluenza 2, PCR Not Detected (NotDetected); Parainfluenza 3, PCR Not Detected (NotDetected); Parainfluenza 4, PCR Not Detected (NotDetected)
--- NOTE | 2024-12-30 15:49 | EXP.PN ---
Subjective *Date: 12/30/24 *Time: 15:49 Interval history: Patient has a dry, rattly persistent cough. Entresto was started during admission, will discontinue and follow-up in response. Cardiology following, likely LHC in the morning. Exam Data for Last 24 hours Vital signs and Labs for Last 24 Hours: Temp Pulse Resp BP Pulse Ox O2 Del Method 97.7 F 83 18 116/64 100 Room Air 12/30/24 11:55 12/30/24 11:55 12/30/24 11:55 12/30/24 11:55 12/30/24 11:55 12/30/24 15:00 Laboratory Results - last 24 hr 12/30/24 06:10: WBC 5.3, RBC 4.50 L, Hgb 12.3 L, Hct 36.1 L, MCV 80.2, MCH 27.3, MCHC 34.1, RDW 15.1, Plt Count 114 L, MPV 10.1, Neut % (Auto) 40.0, Lymph % (Auto) 30.9, [place] % (Auto) 22.3 H, Eos % (Auto) 6.0, Baso % (Auto) 0.6, Neut # (Auto) 2.1, Lymph # (Auto) 1.6, [place] # (Auto) 1.2 H, Eos # (Auto) 0.3, Baso # (Auto) 0.0, Sodium 136, Potassium 4.1, Chloride 103, Carbon Dioxide 29, Anion Gap 8.1, BUN 18, Creatinine 1.30 H, Estimated Creat Clear 39, Estimated GFR 52 L, Est GFR ( Amer) 63, Glucose 88, Calcium 7.8 L, Magnesium 1.7, Total Bilirubin 0.7, AST 43, ALT 38, Alkaline Phosphatase 65, Total Protein 5.3 L, Albumin 2.9 L, Globulin 2.4, Albumin/Globulin Ratio 1.2 I & O for Last 24 hours: Intake & Output 12/27/24 12/28/24 12/29/24 12/30/24 23:59 23:59 23:59 23:59 Intake Total 220 / 340 1290 / 1530 1330 / 1450 490 / 490 Output Total 1000 / 1200 2650 / 3850 3650 / 3900 2225 / 2225 Balance -780 / -860 -1360 / -2320 -2320 / -2450 -1735 / -1735 Weight 76.459 kg 76.5 kg 73.391 kg 71.169 kg Constitutional Constitutional: no acute distress *Routine HEENT Exam Head: Present normocephalic Eye: Present EOMI and PERRL ENT: Present mucous membranes moist *Routine Neck Exam Neck: Present supple; Absent lymphadenopathy *Routine Respiratory Exam Respiratory: Present CTA bilaterally *Routine Cardiovascular Exam Cardiovascular: Present RRR *Routine Abdominal Exam Abdominal: Present soft and normoactive bowel sounds; Absent tenderness *Routine Extremities Exam Extremities: Absent cyanosis, clubbing or edema *Routine Skin Exam Skin: Present warm; Absent rash *Routine Neurological Exam Neurological: Present alert Assessment and Plan *Assessment and plan (1) Acute UTI: Status: Acute Category: Medical Code(s): N39.0 - Urinary tract infection, site not specified (2) Ischemic stroke of frontal lobe: Status: Acute Category: Medical Code(s): I63.9 - Cerebral infarction, unspecified (3) HFrEF (heart failure with reduced ejection fraction): Status: Acute Category: Medical Code(s): I50.20 - Unspecified systolic (congestive) heart failure Plan Oumar Burnham is a 89-year-old male with an unclear medical history presents via EMS due to altered mental status. Per ED provider and EMS, daughter requested caregiver to check on patient as she had not heard from him in a few days. Upon arrival, caregiver found patient to be lying on the floor incomprehensible, covered with his own urine, and therefore EMS was called. Patient was recently transferred to [facility] for suspected left posterior frontal stroke, but upon my discussion with the patient he states that this was not a stroke. Will obtain records from [facility]. Patient was drowsy on my evaluation, but would answer a few questions and otherwise doze off. Denies chest pain, shortness of breath but does endorse some abdominal pain. Workup in the ED significant for VBG pH 7.28, lactic acid 2.8, BNP 23,000, CK is 373, UA positive for LE, blood, and trace bacteria. CTA chest suggestive of worsening bilateral pleural effusions, enlarged heart, and ground glass opacities favoring pulmonary edema left lower lobe nodules were also seen, interval development within the last month. Patient was given ceftriaxone 2 g in the ED. Given these findings, ED provider discussed case with manage decided to admit patient for heart failure exacerbation, acute metabolic encephalopathy, possible community-acquired pneumonia. #HFrEF exacerbation #Bilateral pleural effusions #NSTEMI #Hypertension ? Initial BNP 23,000 with pulmonary edema seen on CTA chest 12/27/2024. ? ECHO 12/28/2024 shows LVEF 20 to 25%, akinesis of septal, anteroseptal, inferoseptal LV agarwal, moderate to severe MR, elevated RVSP 50 to 55 mmHg. ? Cardiology following, recommend continuing IV diuresis for the weekend. Good response, net -6L. Avoid beta-blockers at this time, high risk for cardiogenic shock with LVEF. ? Continue IV Lasix 40 mg daily, spironolactone 25 mg, Entresto 24/26 mg (improved BP since admission). Will consider further GDMT when patient is more euvolemic. ? Troponins peaked at 0.12, patient without chest pain or shortness of breath. EKG without acute ischemic changes. Will need inpatient ischemic workup with [facility], likely on Tuesday. Continue therapeutic Lovenox. ? Continue aspirin 81 mg, Plavix 75 mg, atorvastatin 40 mg. ? A1c 5.8%, LDL 40, TSH normal. ? Follow-up morning CMP, magnesium. Renal function stable, creatinine 1.3, GFR 52. #Persistent dry cough ? Seems to be new during admission. Has become quite bothersome for patient. ? Follow-up respiratory panel and CXR, continue DuoNebs every 6 hours. ? Hold Entresto and follow-up on response. ? Given one-time dose of prednisone 40 mg. #A-fib ? Initial EKG with A-fib RVR, now rate controlled. ? Continue therapeutic Lovenox. #Acute metabolic encephalopathy, resolved #Urinary retention, obstructive uropathy ? Mentation significantly improved, alert and oriented. ? Urine culture normal on 12/29/2024. Initially treated with ceftriaxone. ? Continue home finasteride, tamsulosin. Will need voiding challenge tomorrow. #Pulmonary nodules ? CTA chest on admission suggestive of left lower lobe nodules with interval development in the last month. ? Pulmonology following, nodules likely infectious. Recommend continue antibiotics. ? Continue ceftriaxone 2 g daily, doxycycline 100 mg twice daily day 4. #Rhabdomyolysis ? Initial CK 373, no renal dysfunction at this time. ? Continue conservative management at this time. #Previous TIA ? Recently transferred to [facility] for right-sided weakness, MRI at [facility] normal. Recommended only aspirin. ? Continue aspirin 81 mg, atorvastatin 40 mg. Full code DVT prophylaxis: Therapeutic Lovenox as above
--- NOTE | 2024-12-30 16:14 | XR_ITS ---
PROCEDURE INFORMATION: Exam: XR Chest Exam date and time: 12/30/2024 4:48 PM Age: 89 years old Clinical indication: Cough; Additional info: Persistent productive cough TECHNIQUE: Imaging protocol: Radiologic exam of the chest. Views: 1 view. Total images: 1 COMPARISON: CR XR CHEST PORTABLE 12/27/2024 11:41 AM FINDINGS: Lungs: Atelectatic and/or early infiltrative changes noted within the upper lobes bilaterally and right lower lobe. Pleural spaces: Small bilateral pleural effusions. Heart/Mediastinum: Heart demonstrates moderate diffuse enlargement. Vasculature: Tortuosity of the thoracic aorta. Bones/joints: The thoracic spine demonstrates mild degenerative changes at multiple levels. IMPRESSION: 1. Moderate cardiomegaly. 2. Atelectatic and/or early infiltrative changes noted within the upper lobes bilaterally and right lower lobe. 3. Small bilateral pleural effusions.
--- NOTE | 2024-12-30 17:09 | PC.NURSE ---
Pt is alert to self only. Pt has been mostly pleasant but has been more agitated with staff at times throughout the day. Pt refused lovenox this morning as well as Q2 turns at times. Pt states multiple times I just want to be left alone. Pt educated on need for staff to round on patient. Pt with non-productive moist cough. Pt unable to produce sputum for a sample. PRN cough medication ordered and given per JUN. Full respiratory panel and chest x-ray completed today. Benjamin in place with adequate urinary output. Catheter care completed. Pt resting comfortably in bed with no further needs voiced at this time. Call light within reach. Bed alarm in place for safety.
[2024-12-30 19:05] LABS: Coronavirus 19, PCR Detected (NotDetected)
[2024-12-30] MEDS: TAMSULOSIN 0.4MG CAPSULE 0.8 MG PO (20:19)
[2024-12-30] MEDS: ATORVASTATIN 40MG TABLET 40 MG PO (20:19)
[2024-12-30] MEDS: PANTOPRAZOLE 40MG TABLET 40 MG PO (20:19)
[2024-12-31] VITALS (10 sets, daily range): BP systolic 121–143; BP diastolic 75–86; PULSE 55–110; RESP 12–18; TEMP 36.5–36.8; O2SAT 96–99; BMI 21.2
--- NOTE | 2024-12-31 04:31 | PC.NURSE ---
Patient remains alert to self. He has been a little more conversational with nursing staff this shift. Patient has also frequently asked about his daughter during wakeful periods. Repositioned/turned as necessary (however, the patient would occasionally refuse this). He was observed to be resting in bed with eyes closed and no apparent distress throughout the night. Continues to have a strong, loose, moist cough; Robitussin DM was given per MAR to help with coughing. A sputum sample was able to be collected this shift and sent to lab; sputum appearance was clear and mucoid in consistency. Scheduled medications were administered per JUN. Breathing treatments were administered by RTs. He has not expressed any complaints other than the persistent cough. Patient tolerates a cardiac diet very well. Benjamin catheter remains intact. He reports passing some gas but has not had a bowel movement yet. Continues to require vast assistance during transfers but was able to assist with turning in bed during this shift. Vital signs stable; heart rate fluctuated. At this time, the patient is resting in bed without vocalization of any new needs. Bed alarm on. Call light within reach. Contact/airborne precautions for COVID-19.
[2024-12-31 06:26] LABS: Hematocrit 38.3 % (42.0-52.0); Immature Granulocytes % 0.2 %; Mean Corpuscular HGB Conc 36.0 g/dL (31.8-35.4); Mean Corpuscular Hemoglobin 28.5 pg (27.0-31.2); Mean Corpuscular Volume 79.0 fl (80-94); Nucleated Red Blood Cells % 0 %; Platelet Count 122 K/mm3 (142-424); Red Blood Count 4.85 M/mm3 (4.60-6.20); Red Cell Distribution Width-SD 41.9 fL; White Blood Count 4.0 K/mm3 (4.8-10.8)
[2024-12-31 06:32] LABS: Hemoglobin 13.8 g/dL (14.1-18.0)
[2024-12-31 06:41] LABS: Alanine Aminotransferase 55 U/L (12-78); Albumin Level 3.2 g/dl (3.5-5.0); Albumin/Globulin Ratio 1.1 (1.1-1.8); Alkaline Phosphatase 71 U/L (38-126); Anion Gap 10.0 mEq/L (5-15); Aspartate Amino Transferase 58 U/L (17-59); Bilirubin,Total 0.5 mg/dl (0.2-1.3); Blood Urea Nitrogen 20 mg/dl (9-20); Calcium 8.1 mg/dl (8.4-10.2); Carbon Dioxide 26 mmol/L (22.0-30.0); Chloride 104 mmol/L (98-107); Creatinine Clearance Estimated 50 mL/min (50-200); Creatinine,Serum 1.00 mg/dl (0.66-1.25); Estimated Glomerular Filt Rate 70 ml/min (>60); GFR (African American) 85 ML/MIN (>60); Globulin 2.8 g/dL (1.3-3.2); Glucose 138 mg/dl (74-100); Magnesium 1.8 mg/dl (1.6-2.3); Potassium 4.0 mmoL/L (3.5-5.1); Sodium 136 mmol/L (136-145); Total Protein,Serum 6.0 g/dl (6.3-8.2)
[2024-12-31] MEDS: IPRATROPIUM/ALBUTEROL 3 ML NEB IH ×3 (06:56→18:32)
[2024-12-31 07:43] LABS: RBC Morphology Normal
[2024-12-31] MEDS: ASPIRIN EC 81MG TABLET 81 MG PO (08:18)
[2024-12-31] MEDS: CLOPIDOGREL 75MG TAB 75 MG PO (08:19)
[2024-12-31] MEDS: FINASTERIDE 5MG TABLET 5 MG PO (08:19)
[2024-12-31] MEDS: DOXYCYCLINE HYCL 100 MG TABLET PO (08:19)
[2024-12-31] MEDS: FUROSEMIDE 40MG/4ML VIAL 40 MG IV (08:20)
[2024-12-31] MEDS: POLYETHYLENE GLYCOL 3350 17 GM PACKET PO (08:20)
[2024-12-31] MEDS: SPIRONOLACTONE 25MG TABLET 25 MG PO (08:20)
[2024-12-31] MEDS: GUAIFENESIN/DEXTROMETHORPHAN 200MG/20MG 10ML UDC 10 ML PO (08:21)
[2024-12-31 08:22] LABS: Total Cells Counted 100
--- NOTE | 2024-12-31 10:22 | PC.NURSE ---
pt is alert to self and place. he stated his name and birthday. he was pleasant this morning when i gave his morning meds. he was asking all sorts of questions on what i was giving and why. he does not remember us telling him about his condition but i explained to him again what is going on with him. pt had no other concerns at this time. safety measures are in place. call light is within reach.
--- NOTE | 2024-12-31 12:10 | EXP.CARD.PN ---
Subjective Subjective Date: 12/31/24 Time: 12:11 Principal diagnosis: HFrEF, Covid Interval history: 89-year-old black male lying in bed in no acute distress. He still has a very congested cough but reportedly this is much improved over the weekend. He diuresed 8 L since admission. Creatinine is 1.0 Patient is still pleasantly confused. He knows he is at [facility] but he does not know the year. Exam Data for Last 24 hours Vital signs and Labs for Last 24 Hours: Temp Pulse Resp BP Pulse Ox O2 Del Method 97.9 F 80 18 122/75 97 Room Air 12/31/24 07:20 12/31/24 11:53 12/31/24 07:20 12/31/24 07:20 12/31/24 08:00 12/31/24 11:20 Laboratory Results - last 24 hr 12/30/24 14:42: Chlamy pneumoniae PCR Not detected, Adenovirus (PCR) Not detected, B. pertussis DNA (PCR) Not detected, Coronavirus OC43 (PCR) Not detected, Coronavirus HKU1 (PCR) Not detected, Coronavirus 229E (PCR) Not detected, SARS-CoV-2 (PCR) Detected A, Coronavirus NL63 (PCR) Not detected, Human Metapneumovir PCR Not detected, Influenza A (H1) PCR Not detected, Influ A (H1N1/09) PCR Not detected, Influenza A (H3) PCR Not detected, Influenza Type A (PCR) Not detected, Influenza Type B (PCR) Not detected, M. pneumoniae (PCR) Not detected, Parainfluenza 1 (PCR) Not detected, Parainfluenza 2 (PCR) Not detected, Parainfluenza 3 (PCR) Not detected, Parainfluenza 4 (PCR) Not detected, RSV (PCR) Not detected, Entero/Rhino (PCR) Not detected 12/31/24 05:47: WBC 4.0 L, RBC 4.85, Hgb 13.8 L D, Hct 38.3 L, MCV 79.0 L, MCH 28.5, MCHC 36.0 H, RDW 14.6, Plt Count 122 L, MPV 10.3, Neut % (Auto) 85.9 H, Lymph % (Auto) 11.7, [place] % (Auto) 2.0, Eos % (Auto) 0.0 L, Baso % (Auto) 0.2, Neut # (Auto) 3.5, Lymph # (Auto) 0.5 L, [place] # (Auto) 0.1, Eos # (Auto) 0.0, Baso # (Auto) 0.0, Total Counted 100, Neutrophils % (Manual) 89 H, Lymphocytes % (Manual) 7 L, Monocytes % (Manual) 4, Platelet Estimate Normal, RBC Morphology Normal, Sodium 136, Potassium 4.0, Chloride 104, Carbon Dioxide 26, Anion Gap 10.0, BUN 20, Creatinine 1.00 D, Estimated Creat Clear 50, Estimated GFR 70, Est GFR ( Amer) 85 D, Glucose 138 H D, Calcium 8.1 L, Magnesium 1.8, Total Bilirubin 0.5, AST 58 D, ALT 55 D, Alkaline Phosphatase 71, Total Protein 6.0 L, Albumin 3.2 L D, Globulin 2.8, Albumin/Globulin Ratio 1.1 I & O for Last 24 hours: Intake & Output 12/29/24 12/30/24 12/31/24 01/01/25 11:59 11:59 11:59 11:59 Intake Total 1290 / 1290 1240 / 1240 1054 / 1054 Output Total 3500 / 4150 4275 / 4275 3400 / 3400 Balance -2210 / -2860 -3035 / -3035 -2346 / -2346 Weight 161 lb 12.8 oz 156 lb 14.4 oz 156 lb 15.506 oz Microbiology Reports for the Last 24 Hours: Microbiology 12/27/24 09:35 Blood Blood Culture - Preliminary NO GROWTH AFTER 4 DAYS 12/27/24 09:30 Blood Blood Culture - Preliminary NO GROWTH AFTER 4 DAYS 12/29/24 22:20 Sputum - Expectorated Sputum Gram Stain - Final Constitutional Constitutional: no acute distress *Routine Respiratory Exam Respiratory: Present decreased breath sounds, rales and rhonchi *Routine Cardiovascular Exam Cardiovascular: Present RRR; Absent murmur, gallop or rubs *Routine Extremities Exam Extremities: Absent edema *Routine Neurological Exam Neurological: Present alert and CN II-XII intact Progress Note: A&P Assessment and plan (1) Acute UTI: Status: Acute (2) Ischemic stroke of frontal lobe: Status: Acute (3) HFrEF (heart failure with reduced ejection fraction): Status: Acute (4) Altered mental status: Status: Acute (5) COVID: Status: Acute (6) Severe left ventricular systolic dysfunction (LVSD): Status: Acute (7) Non-STEMI (non-ST elevated myocardial infarction): Status: Acute Assessment and Plan Assessment and Plan for All Diagnoses:: 1. HFrEF with Non-STEMI with troponin up to 0.12 and BNP greater than 23,000 -On aspirin and Plavix -Echo showed EF 20-25% with moderate to severe MR and RVSP of 50 to 55 mmHg. Multiple wall abnormalities noted. -Diuresed greater than 8 L -Not a LifeVest candidate due to underlying dementia/AMS -GDMT with spironolactone, furosemide. Entresto stopped due to cough but patient was on losartan prior to admission. -Beta-dilcia held this admission due to HFrEF -Chest CTA negative for pulmonary embolus. 2. Found to have COVID over the weekend -On room air with sats greater than 92% 3. Dementia/AMS exacerbated by acute UTI -On antibiotics per the hospitalist 4. History of ischemic CVA, remote -Recently hospitalized in [facility] in [place] this year, records pending. 5. History of pulmonary embolus of the superior segment of the right lower lobe noted on chest CTA 11/29/2024 -started on Eliquis but stopped on this admission. 6. Hyperlipidemia -On statin therapy 7. Pancytopenia -WBC 4, hemoglobin 13.8, platelet count 122,000 After discussion with daughter, Saranya, will cancel plans for cardiac catheterization at this time. Will allow patient to recover from COVID and continue medical therapy for his HFrEF. Recommend restarting Entresto 24/26 mg twice daily, if BP allows, along with diuretics. Hold beta-dilcia and Farxiga for the time being. Repeat BNP in AM. Continue IV diuretics until discharge.
--- NOTE | 2024-12-31 17:02 | EXP.PN ---
Subjective *Date: 12/31/24 *Time: 17:02 Interval history: Patient continues to be in good spirits. When told he has COVID-19 patient stated, I ain't got no COVID! . No chest pain, shortness of breath. Pending placement. Exam Data for Last 24 hours Vital signs and Labs for Last 24 Hours: Temp Pulse Resp BP Pulse Ox O2 Del Method 98.3 F 65 14 121/76 99 Room Air 12/31/24 16:00 12/31/24 16:00 12/31/24 16:00 12/31/24 16:00 12/31/24 16:00 12/31/24 16:00 Laboratory Results - last 24 hr 12/30/24 14:42: Chlamy pneumoniae PCR Not detected, Adenovirus (PCR) Not detected, B. pertussis DNA (PCR) Not detected, Coronavirus OC43 (PCR) Not detected, Coronavirus HKU1 (PCR) Not detected, Coronavirus 229E (PCR) Not detected, SARS-CoV-2 (PCR) Detected A, Coronavirus NL63 (PCR) Not detected, Human Metapneumovir PCR Not detected, Influenza A (H1) PCR Not detected, Influ A (H1N1/09) PCR Not detected, Influenza A (H3) PCR Not detected, Influenza Type A (PCR) Not detected, Influenza Type B (PCR) Not detected, M. pneumoniae (PCR) Not detected, Parainfluenza 1 (PCR) Not detected, Parainfluenza 2 (PCR) Not detected, Parainfluenza 3 (PCR) Not detected, Parainfluenza 4 (PCR) Not detected, RSV (PCR) Not detected, Entero/Rhino (PCR) Not detected 12/31/24 05:47: WBC 4.0 L, RBC 4.85, Hgb 13.8 L D, Hct 38.3 L, MCV 79.0 L, MCH 28.5, MCHC 36.0 H, RDW 14.6, Plt Count 122 L, MPV 10.3, Neut % (Auto) 85.9 H, Lymph % (Auto) 11.7, [place] % (Auto) 2.0, Eos % (Auto) 0.0 L, Baso % (Auto) 0.2, Neut # (Auto) 3.5, Lymph # (Auto) 0.5 L, [place] # (Auto) 0.1, Eos # (Auto) 0.0, Baso # (Auto) 0.0, Total Counted 100, Neutrophils % (Manual) 89 H, Lymphocytes % (Manual) 7 L, Monocytes % (Manual) 4, Platelet Estimate Normal, RBC Morphology Normal, Sodium 136, Potassium 4.0, Chloride 104, Carbon Dioxide 26, Anion Gap 10.0, BUN 20, Creatinine 1.00 D, Estimated Creat Clear 50, Estimated GFR 70, Est GFR ( Amer) 85 D, Glucose 138 H D, Calcium 8.1 L, Magnesium 1.8, Total Bilirubin 0.5, AST 58 D, ALT 55 D, Alkaline Phosphatase 71, Total Protein 6.0 L, Albumin 3.2 L D, Globulin 2.8, Albumin/Globulin Ratio 1.1 I & O for Last 24 hours: Intake & Output 12/28/24 12/29/24 12/30/24 12/31/24 23:59 23:59 23:59 23:59 Intake Total 1290 / 1530 1330 / 1450 730 / 1084 1534 / 1534 Output Total 2650 / 3850 3650 / 3900 3500 / 3850 2225 / 2225 Balance -1360 / -2320 -2320 / -2450 -2770 / -2766 -691 / -691 Weight 76.5 kg 73.391 kg 71.169 kg 71.2 kg Microbiology Reports for the Last 24 Hours: Microbiology 12/27/24 09:35 Blood Blood Culture - Preliminary NO GROWTH AFTER 4 DAYS 12/27/24 09:30 Blood Blood Culture - Preliminary NO GROWTH AFTER 4 DAYS 12/29/24 22:20 Sputum - Expectorated Sputum Gram Stain - Final Constitutional Constitutional: no acute distress *Routine HEENT Exam Head: Present normocephalic Eye: Present EOMI and PERRL ENT: Present mucous membranes moist *Routine Neck Exam Neck: Present supple; Absent lymphadenopathy *Routine Respiratory Exam Respiratory: Present CTA bilaterally *Routine Cardiovascular Exam Cardiovascular: Present RRR *Routine Abdominal Exam Abdominal: Present soft and normoactive bowel sounds; Absent tenderness *Routine Extremities Exam Extremities: Absent cyanosis, clubbing or edema *Routine Skin Exam Skin: Present warm; Absent rash *Routine Neurological Exam Neurological: Present alert Assessment and Plan *Assessment and plan (1) HFrEF (heart failure with reduced ejection fraction): Status: Acute Category: Medical Code(s): I50.20 - Unspecified systolic (congestive) heart failure (2) COVID-19: Status: Acute Category: Medical Code(s): U07.1 - COVID-19 (3) Severe left ventricular systolic dysfunction (LVSD): Status: Acute Category: Medical Code(s): I51.89 - Other ill-defined heart diseases Plan Oumar Burnham is a 89-year-old male with an unclear medical history presents via EMS due to altered mental status. Per ED provider and EMS, daughter requested caregiver to check on patient as she had not heard from him in a few days. Upon arrival, caregiver found patient to be lying on the floor incomprehensible, covered with his own urine, and therefore EMS was called. Patient was recently transferred to [facility] for suspected left posterior frontal stroke, but upon my discussion with the patient he states that this was not a stroke. Will obtain records from [facility]. Patient was drowsy on my evaluation, but would answer a few questions and otherwise doze off. Denies chest pain, shortness of breath but does endorse some abdominal pain. Workup in the ED significant for VBG pH 7.28, lactic acid 2.8, BNP 23,000, CK is 373, UA positive for LE, blood, and trace bacteria. CTA chest suggestive of worsening bilateral pleural effusions, enlarged heart, and ground glass opacities favoring pulmonary edema left lower lobe nodules were also seen, interval development within the last month. Patient was given ceftriaxone 2 g in the ED. Given these findings, ED provider discussed case with manage decided to admit patient for heart failure exacerbation, acute metabolic encephalopathy, possible community-acquired pneumonia. #HFrEF exacerbation #Bilateral pleural effusions #NSTEMI #Hypertension ? Initial BNP 23,000 with pulmonary edema seen on CTA chest 12/27/2024. ? ECHO 12/28/2024 shows LVEF 20 to 25%, akinesis of septal, anteroseptal, inferoseptal LV agarwal, moderate to severe MR, elevated RVSP 50 to 55 mmHg. ? Cardiology following, recommend continuing diuresis. Good response, net -7.9L. Renal function stable. Avoid beta-blockers at this time, high risk for cardiogenic shock with LVEF. ? Continue IV Lasix 40 mg daily, spironolactone 25 mg, Entresto 24/26 mg. Will consider further GDMT when patient is more euvolemic. ? Troponins peaked at 0.12, patient without chest pain or shortness of breath. EKG without acute ischemic changes. ? Cardiology evaluated, will defer ischemic workup on outpatient basis due to COVID-19 infection, and both patient and daughter not wanting [facility] at this time. ? Continue aspirin 81 mg, atorvastatin 40 mg. ? A1c 5.8%, LDL 40, TSH normal. ? Follow-up morning CMP, magnesium. Renal function stable, creatinine 1.0, GFR 50. ? Follow-up orthostatic vitals on day of discharge after starting GDMT. #Physical deconditioning ? PT/OT recommended placement, case management assisting with placement. Medically stable for discharge. #Pulmonary nodules #Persistent cough #COVID-19 ? CTA chest on admission suggestive of left lower lobe nodules with interval development in the last month. ? Pulmonology following, nodules likely infectious. Recommend continue antibiotics. ? Completed 5 days of ceftriaxone, doxycycline. Respiratory panel positive for COVID-19 yesterday, likely related to this. ? Cough improved with one-time dose of prednisone 40 mg. Initially held Entresto, will restart today. ? Continue DuoNebs every 6 hours. Start incentive spirometer. #A-fib ? Initial EKG with A-fib RVR, now rate controlled. ? Transitioned from therapeutic Lovenox to Xarelto 15 mg daily dose. #Acute metabolic encephalopathy, resolved #Urinary retention, obstructive uropathy ? Mentation significantly improved, alert and oriented. ? Urine culture normal on 12/29/2024. Initially treated with ceftriaxone. ? Continue home finasteride, tamsulosin. Benjamin removed, follow-up urine output. #Rhabdomyolysis ? Initial CK 373, no renal dysfunction at this time. ? Continue conservative management at this time. #Previous TIA ? Recently transferred to [facility] for right-sided weakness, MRI at [facility] normal. Recommended only aspirin. ? Continue aspirin 81 mg, atorvastatin 40 mg. Full code DVT prophylaxis: Xarelto
[2024-12-31] MEDS: ATORVASTATIN 40MG TABLET 40 MG PO (20:33)
[2024-12-31] MEDS: TAMSULOSIN 0.4MG CAPSULE 0.8 MG PO (20:33)
[2024-12-31] MEDS: PANTOPRAZOLE 40MG TABLET 40 MG PO (20:33)
[2024-12-31] MEDS: SACUBITRIL/VALSARTAN 24-26MG TABLET 1 EACH PO (20:33)
[2025-01-01] VITALS (10 sets, daily range): BP systolic 122–153; BP diastolic 76–94; PULSE 69–120; RESP 14–19; TEMP 36.6–36.8; O2SAT 94–99; BMI 20.7
[2025-01-01] MEDS: IPRATROPIUM/ALBUTEROL 3 ML NEB IH ×3 (00:12→12:50)
[2025-01-01 06:31] LABS: Hematocrit 38.1 % (42.0-52.0); Hemoglobin 13.3 g/dL (14.1-18.0); Immature Granulocytes % 0.2 %; Mean Corpuscular HGB Conc 34.9 g/dL (31.8-35.4); Mean Corpuscular Hemoglobin 27.7 pg (27.0-31.2); Mean Corpuscular Volume 79.2 fl (80-94); Nucleated Red Blood Cells % 0 %; Platelet Count 133 K/mm3 (142-424); Red Blood Count 4.81 M/mm3 (4.60-6.20); Red Cell Distribution Width-SD 42.6 fL; White Blood Count 5.7 K/mm3 (4.8-10.8)
[2025-01-01 06:50] LABS: Alanine Aminotransferase 76 U/L (12-78); Albumin Level 3.3 g/dl (3.5-5.0); Albumin/Globulin Ratio 1.2 (1.1-1.8); Alkaline Phosphatase 80 U/L (38-126); Anion Gap 9.0 mEq/L (5-15); Aspartate Amino Transferase 86 U/L (17-59); Bilirubin,Total 0.5 mg/dl (0.2-1.3); Blood Urea Nitrogen 21 mg/dl (9-20); Calcium 8.3 mg/dl (8.4-10.2); Carbon Dioxide 26 mmol/L (22.0-30.0); Chloride 105 mmol/L (98-107); Creatinine Clearance Estimated 45 mL/min (50-200); Creatinine,Serum 1.10 mg/dl (0.66-1.25); Estimated Glomerular Filt Rate 63 ml/min (>60); GFR (African American) 76 ML/MIN (>60); Globulin 2.8 g/dL (1.3-3.2); Glucose 92 mg/dl (74-100); Magnesium 1.9 mg/dl (1.6-2.3); Potassium 4.0 mmoL/L (3.5-5.1); Sodium 136 mmol/L (136-145); Total Protein,Serum 6.1 g/dl (6.3-8.2)
[2025-01-01] MEDS: GUAIFENESIN/DEXTROMETHORPHAN 200MG/20MG 10ML UDC 10 ML PO (06:57)
[2025-01-01 07:30] LABS: NT Pro Brain Natriuretic Pep. 6840 pg/mL (0-450)
--- NOTE | 2025-01-01 10:01 | EXP.PULM.PN ---
Subjective *Date: 01/01/25 *Time: 11:53 Interval history: No acute respiratory events overnight. Pulmonology Exam Inpatient Vital signs and Labs for Last 24 Hours: Temp Pulse Resp BP Pulse Ox O2 Del Method 97.9 F 77 18 130/76 96 Room Air 01/01/25 07:36 01/01/25 07:36 01/01/25 07:36 01/01/25 07:36 01/01/25 07:36 01/01/25 07:36 Laboratory Results - last 24 hr 01/01/25 05:51: WBC 5.7 D, RBC 4.81, Hgb 13.3 L, Hct 38.1 L, MCV 79.2 L, MCH 27.7, MCHC 34.9, RDW 14.8, Plt Count 133 L, MPV 10.6 H, Neut % (Auto) 53.8, Lymph % (Auto) 34.0, [place] % (Auto) 8.9, Eos % (Auto) 2.8, Baso % (Auto) 0.3, Neut # (Auto) 3.1, Lymph # (Auto) 2.0, [place] # (Auto) 0.5, Eos # (Auto) 0.2, Baso # (Auto) 0.0, Sodium 136, Potassium 4.0, Chloride 105, Carbon Dioxide 26, Anion Gap 9.0, BUN 21 H, Creatinine 1.10, Estimated Creat Clear 45, Estimated GFR 63, Est GFR ( Amer) 76, Glucose 92, Calcium 8.3 L, Magnesium 1.9, Total Bilirubin 0.5, AST 86 H D, ALT 76 D, Alkaline Phosphatase 80, NT-Pro-B Natriuret Pep 6840 H, Total Protein 6.1 L, Albumin 3.3 L, Globulin 2.8, Albumin/Globulin Ratio 1.2 Temp Pulse Resp BP Pulse Ox O2 Del Method 98.2 F 109 H 18 117/56 L 95 Room Air 12/28/24 08:00 12/28/24 08:00 12/28/24 08:00 12/28/24 08:00 12/28/24 08:00 12/28/24 08:00 Laboratory Results - last 24 hr 12/27/24 09:30: WBC 4.8, RBC 4.79, Hgb 13.7 L, Hct 38.9 L, MCV 81.2, MCH 28.6, MCHC 35.2, RDW 15.5, Plt Count 141 L, MPV 10.7 H, Neut % (Auto) 73.7, Lymph % (Auto) 12.2, [place] % (Auto) 13.5 H, Eos % (Auto) 0.0 L, Baso % (Auto) 0.4, Neut # (Auto) 3.6, Lymph # (Auto) 0.6 L, [place] # (Auto) 0.7, Eos # (Auto) 0.0, Baso # (Auto) 0.0, Sodium 140, Potassium 4.1, Chloride 105, Carbon Dioxide 27, Anion Gap 12.1, BUN 19, Creatinine 1.20, Estimated Creat Clear 47, Estimated GFR 57 L, Est GFR ( Amer) 69, Glucose 128 H, Calcium 8.9, Total Bilirubin 1.1, AST 44, ALT 64, Alkaline Phosphatase 98, Total Creatine Kinase 373 H, C-Reactive Protein 23.1 H, NT-Pro-B Natriuret Pep 47888 H 12/27/24 09:30: NT-Pro-B Natriuret Pep 68654 H, Total Protein 7.0, Albumin 4.1, Globulin 2.9, Albumin/Globulin Ratio 1.4, Procalcitonin 0.057 12/27/24 09:34: POC Glucose 111 H 12/27/24 09:45: Urine Color Yellow, Urine Appearance Clear, Urine pH 6.0, Ur Specific [place] 1.020, Urine Protein 2+ A, Urine Glucose (UA) Negative, Urine Ketones Trace, Urine Blood 3+ A, Urine Nitrate Negative, Urine Bilirubin Negative, Urine Urobilinogen 0.2, Ur Leukocyte Esterase 1+ A, Urine RBC Occasional, Urine WBC Occasional, Ur Squamous Epith Cells Occasional, Urine Bacteria Trace 12/27/24 09:50: VBG pH 7.28 L, VBG pCO2 45.3, VBG pO2 29.4, VBG HCO3 20.6 L, VBG Total CO2 22.0 L, VBG O2 Saturation 49.7 L, VBG Base Excess -6.3 L, VBG Lactic Acid 2.8 H 12/27/24 14:17: Lactate 1.9 12/27/24 17:35: Troponin I 0.09 H 12/28/24 05:19: WBC 4.3 L, RBC 4.48 L, Hgb 12.4 L, Hct 35.4 L, MCV 79.0 L, MCH 27.7, MCHC 35.0, RDW 15.0, Plt Count 114 L, MPV 10.3, Neut % (Auto) 53.4, Lymph % (Auto) 23.8, [place] % (Auto) 21.9 H, Eos % (Auto) 0.5, Baso % (Auto) 0.2, Neut # (Auto) 2.3, Lymph # (Auto) 1.0, [place] # (Auto) 0.9, Eos # (Auto) 0.0, Baso # (Auto) 0.0, Sodium 138, Potassium 3.8, Chloride 107, Carbon Dioxide 27, Anion Gap 7.8, BUN 17, Creatinine 1.10, Estimated Creat Clear 49, Estimated GFR 63, Est GFR ( Amer) 76, Glucose 83 D, Calcium 8.2 L, Magnesium 1.8, Total Bilirubin 0.8, AST 38, ALT 42 D, Alkaline Phosphatase 75, Total Protein 5.5 L, Albumin 3.0 L D, Globulin 2.5, Albumin/Globulin Ratio 1.2, TSH 1.01 I & O for Labs for Last 24 Hours: Intake & Output 12/29/24 12/30/24 12/31/24 01/01/25 23:59 23:59 23:59 23:59 Intake Total 1330 / 1450 730 / 1084 1984 / 2164 180 / 180 Output Total 3650 / 3900 3500 / 3850 2675 / 2675 325 / 325 Balance -2320 / -2450 -2770 / -2766 -691 / -511 -145 / -145 Weight 161 lb 12.8 oz 156 lb 14.4 oz 156 lb 15.506 oz 152 lb 12.8 oz Intake & Output 12/25/24 12/26/24 12/27/24 12/28/24 23:59 23:59 23:59 23:59 Intake Total 220 / 340 120 / 120 Output Total 1000 / 1200 750 / 750 Balance -780 / -860 -630 / -630 Weight 168 lb 9 oz 168 lb 10.458 oz Microbiology Reports for the Last 24 Hours: Microbiology 12/27/24 09:30 Blood Blood Culture - Final NO GROWTH AFTER 5 DAYS 12/27/24 09:35 Blood Blood Culture - Final NO GROWTH AFTER 5 DAYS Constitutional: Present moderate distress Head: Present normocephalic and atraumatic ENT: Present normal exam, normal oropharynx and mucous membranes moist Neck: Present normal inspection and full ROM Respiratory: Present respiratory distress, crackles, diminished air movement and able to speak in complete sentences; Absent prolonged expiratory phase Cardiac: Present S1/S2, Tachycardia and radial pulses present GI: Present soft and distention; Absent tenderness or guarding Skin: Present intact; Absent cyanosis or jaundice Neuro: Present alert, awake and oriented x 3 Extremities: Present normal inspection and edema; Absent clubbing or cyanosis Psychiatric: Present normal affect and cooperative Assessment and Plan *Assessment and plan (1) Pneumonia: Status: Acute Category: Medical Code(s): J18.9 - Pneumonia, unspecified organism (2) Pleural effusion, bilateral: Status: Acute Category: Medical Code(s): J90 - Pleural effusion, not elsewhere classified (3) Pneumonia due to COVID-19 virus: Status: Acute Category: Medical Code(s): U07.1 - COVID-19; J12.82 - Pneumonia due to coronavirus disease 2019 Plan Mr. Burnham is a 89-year-old male greater than [id number] smoking history of last monitor in 2019, history of pulmonary embolism diagnosed on a CT scan from November 2024 as per the patient presented to the ER with altered mentation with CT showing bilateral pleural effusions and pulmonary was called for further evaluation and management. Was recently presented to the ER November 2024 found to have a right lower lobe pulmonary embolism discharged home on Lovenox. Afebrile. Hemodynamically stable. Leukopenia. Platelet count 114. Hemoglobin stable at 12-13. BNP elevated at 23,400. Blood gas upon admission venous, metabolic acidosis with a pH of 7.28, pCO2 45.3 and pO2 of 29.4 CTA upon admission no evidence of pulmonary lesion. Bilateral pleural effusions right greater than left. Noted effusions are present on patient's CT scan from November 2024 however worsened on his current CT scans. The current CT scan also showed left lower lobe nodular opacities which were new from his CT scan from November 2024. We noted bilateral pleural effusions are likely from overload given clinical presentation bilateral lower extremity edema 3+ orthopnea elevated BNP and low EF on echocardiogram. They noted left lobe lung nodule likely infectious etiology, will follow as an outpatient basis with subsequent imaging for resolution. Interval update: No acute respiratory vents overnight. Continue to remain on room air. Repeat chest x-ray 12/30/2024 improving bilateral effusions. Respiratory viral PCR panel resulted for COVID-19 pneumonia. Symptomatic continue to remain on room air though high risk given other core morbidities. Given other possible etiology of his exertional dyspnea we will continue to monitor with no COVID-specific management at this point of Plan: Continue airborne precautions. Will hold off on performing thoracentesis at this point of time. Volume optimization as per primary team and cardiology echocardiogram showed reduced EF to 25%. Continue ceftriaxone treatment for community-acquired pneumonia pending sputum culture results. Antibiotics can be weaned to cefdinir to complete a total of 5-day course DuoNebs 4 times daily scheduled Continue full dose anticoagulation for his recent diagnosis pulmonary embolism # Thank you for involving pulmonary in this patient care. Will continue to follow
[2025-01-01] MEDS: FINASTERIDE 5MG TABLET 5 MG PO (10:02)
[2025-01-01] MEDS: FUROSEMIDE 40MG/4ML VIAL 40 MG IV (10:02)
[2025-01-01] MEDS: POLYETHYLENE GLYCOL 3350 17 GM PACKET PO (10:02)
[2025-01-01] MEDS: ASPIRIN EC 81MG TABLET 81 MG PO (10:02)
[2025-01-01] MEDS: SACUBITRIL/VALSARTAN 24-26MG TABLET 1 EACH PO (10:02)
[2025-01-01] MEDS: SPIRONOLACTONE 25MG TABLET 25 MG PO (10:03)
--- NOTE | 2025-01-01 11:39 | EXP.CARD.PN ---
Subjective Subjective Date: 01/01/25 Time: 11:39 Principal diagnosis: HFrEF, Covid Interval history: 80-year-old black male with no acute distress. Lying nearly flat with no acute difficulty breathing. Patient still has intermittent cough. Exam Data for Last 24 hours Vital signs and Labs for Last 24 Hours: Temp Pulse Resp BP Pulse Ox O2 Del Method 97.9 F 96 H 16 123/94 H 99 Room Air 01/01/25 11:21 01/01/25 11:01/01/25 11:01/01/25 11:01/01/25 11:01/01/25 11:21 Laboratory Results - last 24 hr 01/01/25 05:51: WBC 5.7 D, RBC 4.81, Hgb 13.3 L, Hct 38.1 L, MCV 79.2 L, MCH 27.7, MCHC 34.9, RDW 14.8, Plt Count 133 L, MPV 10.6 H, Neut % (Auto) 53.8, Lymph % (Auto) 34.0, [place] % (Auto) 8.9, Eos % (Auto) 2.8, Baso % (Auto) 0.3, Neut # (Auto) 3.1, Lymph # (Auto) 2.0, [place] # (Auto) 0.5, Eos # (Auto) 0.2, Baso # (Auto) 0.0, Sodium 136, Potassium 4.0, Chloride 105, Carbon Dioxide 26, Anion Gap 9.0, BUN 21 H, Creatinine 1.10, Estimated Creat Clear 45, Estimated GFR 63, Est GFR ( Amer) 76, Glucose 92, Calcium 8.3 L, Magnesium 1.9, Total Bilirubin 0.5, AST 86 H D, ALT 76 D, Alkaline Phosphatase 80, NT-Pro-B Natriuret Pep 6840 H, Total Protein 6.1 L, Albumin 3.3 L, Globulin 2.8, Albumin/Globulin Ratio 1.2 I & O for Last 24 hours: Intake & Output 12/29/24 12/30/24 12/31/24 01/01/25 11:59 11:59 11:59 11:59 Intake Total 1290 / 1290 1240 / 1240 1054 / 1054 1450 / 1450 Output Total 3500 / 4150 4275 / 4275 3400 / 3400 875 / 875 Balance -2210 / -2860 -3035 / -3035 -2346 / -2346 575 / 575 Weight 161 lb 12.8 oz 156 lb 14.4 oz 156 lb 15.506 oz 152 lb 12.8 oz Microbiology Reports for the Last 24 Hours: Microbiology 12/27/24 09:30 Blood Blood Culture - Final NO GROWTH AFTER 5 DAYS 12/27/24 09:35 Blood Blood Culture - Final NO GROWTH AFTER 5 DAYS Constitutional Constitutional: no acute distress *Routine Respiratory Exam Respiratory: Present decreased breath sounds and CTA bilaterally *Routine Cardiovascular Exam Cardiovascular: Present RRR; Absent murmur, gallop or rubs Progress Note: A&P Assessment and plan (1) Pneumonia: Status: Acute (2) Pleural effusion, bilateral: Status: Acute (3) HFrEF (heart failure with reduced ejection fraction): Status: Acute (4) COVID-19: Status: Acute Assessment and Plan Assessment and Plan for All Diagnoses:: 1. HFrEF with Non-STEMI with troponin up to 0.12 and BNP greater than 23,000 -Echo showed EF 20-25% with moderate to severe MR and RVSP of 50 to 55 mmHg. Multiple wall abnormalities noted. -Diuresed greater than 8 L -Not a LifeVest candidate due to underlying dementia/AMS -GDMT with spironolactone, furosemide. Entresto stopped due to cough but patient was on losartan prior to admission. -Beta-dilcia held this admission due to HFrEF -Chest CTA negative for pulmonary embolus. 2. Found to have COVID over the weekend -On room air with sats greater than 92% 3. Dementia/AMS exacerbated by acute UTI -On antibiotics per the hospitalist 4. History of ischemic CVA, remote -Recently hospitalized in [facility] in [place] this year, records pending. 5. History of pulmonary embolus of the superior segment of the right lower lobe noted on chest CTA 11/29/2024 -resume eliquis for another 2 months 6. Hyperlipidemia -On statin therapy 7. Pancytopenia -WBC 4, hemoglobin 13.8, platelet count 122,000 Clinically stable from a cardiac standpoint for discharge home. Recommend follow-up in our office in 2 weeks. Home med recommendations: Eliquis 5 mg twice daily Spironolactone 25 mg daily Rosuvastatin 5 mg daily Entresto 24/26 mg twice daily but if patient intolerant to this he can use losartan 50 mg daily Restart metoprolol to tartrate 25 mg twice daily
--- NOTE | 2025-01-01 11:45 | EXP.DC.SUM ---
General Admission date:: 12/27/24 Discharge date: 01/01/25 HPI HPI HPI: Oumar Burnham is a 89-year-old male with an unclear medical history presents via EMS due to altered mental status. Per ED provider and EMS, daughter requested caregiver to check on patient as she had not heard from him in a few days. Upon arrival, caregiver found patient to be lying on the floor incomprehensible, covered with his own urine, and therefore EMS was called. Patient was recently transferred to [facility] for suspected left posterior frontal stroke, but upon my discussion with the patient he states that this was not a stroke. Will obtain records from [facility]. Patient was drowsy on my evaluation, but would answer a few questions and otherwise doze off. Denies chest pain, shortness of breath but does endorse some abdominal pain. Workup in the ED significant for VBG pH 7.28, lactic acid 2.8, BNP 23,000, CK is 373, UA positive for LE, blood, and trace bacteria. CTA chest suggestive of worsening bilateral pleural effusions, enlarged heart, and ground glass opacities favoring pulmonary edema left lower lobe nodules were also seen, interval development within the last month. Patient was given ceftriaxone 2 g in the ED. Given these findings, ED provider discussed case with manage decided to admit patient for heart failure exacerbation, acute metabolic encephalopathy, possible community-acquired pneumonia. Hospital Course Hospital Course Hospital Course: Oumar Burnham is a 89-year-old male with an unclear medical history presents via EMS due to altered mental status. Per ED provider and EMS, daughter requested caregiver to check on patient as she had not heard from him in a few days. Upon arrival, caregiver found patient to be lying on the floor incomprehensible, covered with his own urine, and therefore EMS was called. Patient was recently transferred to [facility] for suspected left posterior frontal stroke, but upon my discussion with the patient he states that this was not a stroke. Will obtain records from [facility]. Patient was drowsy on my evaluation, but would answer a few questions and otherwise doze off. Denies chest pain, shortness of breath but does endorse some abdominal pain. Workup in the ED significant for VBG pH 7.28, lactic acid 2.8, BNP 23,000, CK is 373, UA positive for LE, blood, and trace bacteria. CTA chest suggestive of worsening bilateral pleural effusions, enlarged heart, and ground glass opacities favoring pulmonary edema left lower lobe nodules were also seen, interval development within the last month. Patient was given ceftriaxone 2 g in the ED. Given these findings, ED provider discussed case with manage decided to admit patient for heart failure exacerbation, acute metabolic encephalopathy, possible community-acquired pneumonia. Showed improvement with initiation of antibiotics and treatment of CHF. Pulmonology and cardiology consulted and assisted with care. Stable on room air. Stable discharge to rehab. Problems addressed as follows: #HFrEF exacerbation #Bilateral pleural effusions #NSTEMI #Hypertension ? Initial BNP 23,000 with pulmonary edema seen on CTA chest 12/27/2024. ECHO 12/28/2024 shows LVEF 20 to 25%, akinesis of septal, anteroseptal, inferoseptal LV agarwal, moderate to severe MR, elevated RVSP 50 to 55 mmHg. Cardiology following, recommend continuing diuresis. Good response, net > -8L. Renal function stable. Avoid beta-blockers at this time, high risk for cardiogenic shock with LVEF. Treated with IV Lasix during admission. Transition to spironolactone 25 mg daily, initiate Entresto 24/26 mg twice daily. Resume metoprolol to tartrate twice daily at discharge. Follow-up with cardiology as an outpatient. Defer ischemic workup at this time after discussion with family and based on current active COVID infection. ? A1c 5.8%, LDL 40, TSH normal. #Physical deconditioning ? PT/OT recommended placement, case management assisting with placement. Medically stable for discharge. Excepted to signature. Discharged for further care. #Pulmonary nodules #Persistent cough #COVID-19 ? CTA chest on admission suggestive of left lower lobe nodules with interval development in the last month. CT on 11/29 was positive for PE. Needs to complete 3 months total of therapy. Repeat CT this visit shows resolution. Complete 2 more months of Eliquis 5 mg twice daily. Pulmonology consulted to assist with management. Completed 5 days of antibiotics by day of discharge. No further antibiotics at this time. Of note, respiratory panel positive for COVID-19. Cough doing better. Continue nebulizer treatment as needed. #A-fib ? Initial EKG with A-fib RVR, now rate controlled. Continue Eliquis. Reevaluate continued anticoagulation need in 2 months if patient still in A-fib as he will complete his 3-month therapy for PE at that time. #Acute metabolic encephalopathy, resolved #Urinary retention, obstructive uropathy ? Mentation significantly improved, alert and oriented. Urine culture normal on 12/29/2024. Initially treated with ceftriaxone. Continue home finasteride, tamsulosin. Benjamin removed, has been having urine output #Rhabdomyolysis ? Initial CK 373, no renal dysfunction at this time. Treated conservatively #Previous TIA ? Recently transferred to [facility] for right-sided weakness, MRI at [facility] normal. Recommended only aspirin. Continue Crestor per home regimen. Holding on aspirin as he is on Eliquis currently. Total time spent on discharge 35 minutes in counseling, documentation, chart review, and direct care with patient. Exam Data for Last 24 hours Vital signs and Labs for Last 24 Hours: Temp Pulse Resp BP Pulse Ox O2 Del Method 97.9 F 96 H 16 123/94 H 99 Room Air 01/01/25 11:21 01/01/25 11:21 01/01/25 11:21 01/01/25 11:21 01/01/25 11:21 01/01/25 11:21 Laboratory Results - last 24 hr 01/01/25 05:51: WBC 5.7 D, RBC 4.81, Hgb 13.3 L, Hct 38.1 L, MCV 79.2 L, MCH 27.7, MCHC 34.9, RDW 14.8, Plt Count 133 L, MPV 10.6 H, Neut % (Auto) 53.8, Lymph % (Auto) 34.0, [place] % (Auto) 8.9, Eos % (Auto) 2.8, Baso % (Auto) 0.3, Neut # (Auto) 3.1, Lymph # (Auto) 2.0, Shelby # (Auto) 0.5, Eos # (Auto) 0.2, Baso # (Auto) 0.0, Sodium 136, Potassium 4.0, Chloride 105, Carbon Dioxide 26, Anion Gap 9.0, BUN 21 H, Creatinine 1.10, Estimated Creat Clear 45, Estimated GFR 63, Est GFR ( Amer) 76, Glucose 92, Calcium 8.3 L, Magnesium 1.9, Total Bilirubin 0.5, AST 86 H D, ALT 76 D, Alkaline Phosphatase 80, NT-Pro-B Natriuret Pep 6840 H, Total Protein 6.1 L, Albumin 3.3 L, Globulin 2.8, Albumin/Globulin Ratio 1.2 I & O for Last 24 hours: Intake & Output 12/29/24 12/30/24 12/31/24 01/01/25 23:59 23:59 23:59 23:59 Intake Total 1330 / 1450 730 / 1084 1984 / 2164 180 / 180 Output Total 3650 / 3900 3500 / 3850 2675 / 2675 325 / 325 Balance -2320 / -2450 -2770 / -2766 -691 / -511 -145 / -145 Weight 73.391 kg 71.169 kg 71.2 kg 69.309 kg Microbiology Reports for the Last 24 Hours: Microbiology 12/27/24 09:30 Blood Blood Culture - Final NO GROWTH AFTER 5 DAYS 12/27/24 09:35 Blood Blood Culture - Final NO GROWTH AFTER 5 DAYS Constitutional Constitutional: no acute distress, thin and chronically ill appearing *Routine HEENT Exam Head: Present normocephalic Eye: Present EOMI and PERRL ENT: Present mucous membranes moist Comments: edentulous *Routine Neck Exam Neck: Present supple; Absent lymphadenopathy *Routine Respiratory Exam Respiratory: Present CTA bilaterally; Absent respiratory distress, stridor or wheezes *Routine Cardiovascular Exam Cardiovascular: Present RRR *Routine Abdominal Exam Abdominal: Present soft and normoactive bowel sounds; Absent tenderness *Routine Rectal Exam Patient deferred: visual exam *Routine Exam Patient deferred: penile exam *Routine Extremities Exam Extremities: Absent cyanosis, clubbing or edema *Routine Skin Exam Skin: Present intact and warm; Absent rash *Routine Neurological Exam Neurological: Present alert; Absent motor deficit Results Data Completed and Pending Labs on day of discharge: Labs from last 24 hours 01/01/25 05:51 WBC 5.7 D RBC 4.81 Hgb 13.3 L Hct 38.1 L MCV 79.2 L MCH 27.7 MCHC 34.9 RDW 14.8 Plt Count 133 L MPV 10.6 H Neut % (Auto) 53.8 Lymph % (Auto) 34.0 Shelby % (Auto) 8.9 Eos % (Auto) 2.8 Baso % (Auto) 0.3 Neut # (Auto) 3.1 Lymph # (Auto) 2.0 Shelby # (Auto) 0.5 Eos # (Auto) 0.2 Baso # (Auto) 0.0 Sodium 136 Potassium 4.0 Chloride 105 Carbon Dioxide 26 Anion Gap 9.0 BUN 21 H Creatinine 1.10 Estimated Creat Clear 45 Estimated GFR 63 Est GFR ( Amer) 76 Glucose 92 Calcium 8.3 L Magnesium 1.9 Total Bilirubin 0.5 AST 86 H D ALT 76 D Alkaline Phosphatase 80 NT-Pro-B Natriuret Pep 6840 H Total Protein 6.1 L Albumin 3.3 L Globulin 2.8 Albumin/Globulin Ratio 1.2 DS: Diagnosis Discharge Diagnosis (1) Pneumonia: Status: Acute Code(s): J18.9 - Pneumonia, unspecified organism (2) Pleural effusion, bilateral: Status: Acute Code(s): J90 - Pleural effusion, not elsewhere classified Meds Home Medications and Allergies Home Medications ?Medication ?Instructions ?Recorded ?Confirmed ?Type calcium 600 mg (as 1 tab PO DAILY 12/28/24 12/28/24 History carbonate)-vitamin D3 5 mcg (200 unit) tablet cetirizine 5 mg tablet 5 mg PO DAILY 12/28/24 12/28/24 History finasteride 5 mg tablet 5 mg PO DAILY 12/28/24 12/28/24 History fluticasone propionate 50 2 spray intranasal HS 12/28/24 12/28/24 History mcg/actuation nasal spray,suspension guaifenesin 200 mg tablet 200 mg PO Q6HP PRN Cough 12/28/24 12/28/24 History ipratropium 20 mcg-albuterol 100 1 puff inhalation Q6HP PRN 12/28/24 12/28/24 History mcg/actuation mist for inhalation Shortness Of Breath (Combivent Respimat) losartan 50 mg tablet 50 mg PO DAILY 12/28/24 12/28/24 History melatonin 3 mg tablet 6 mg PO HSP PRN Insomnia 12/28/24 12/28/24 History metoprolol tartrate 25 mg tablet 25 mg PO BID 12/28/24 12/28/24 History omeprazole 40 mg capsule,delayed 40 mg PO BID 12/28/24 12/28/24 History release polyethylene glycol 3350 17 gram 17 g PO DAILY 12/28/24 12/28/24 History oral powder packet (Miralax) rosuvastatin 5 mg tablet 5 mg PO HS 12/28/24 12/28/24 History sennosides 8.6 mg tablet (senna) 17.2 mg PO BID 12/28/24 12/28/24 History simethicone 80 mg chewable tablet 80 mg PO Q6HP PRN Gas 12/28/24 12/28/24 History tamsulosin 0.4 mg capsule 0.8 mg PO HS 12/28/24 12/28/24 History apixaban 5 mg tablet 5 mg PO BID #30 tabs 01/01/25 12/28/24 Rx sacubitril 24 mg-valsartan 26 mg 1 tab PO BID 30 days #60 tabs 01/01/25 Rx tablet (Entresto) spironolactone 25 mg tablet 25 mg PO DAILY 30 days #30 tabs 01/01/25 Rx New Prescriptions to Start Prescriptions: sacubitril-valsartan [Entresto] Anthony Farrell spironolactone Anthony Farrell Allergies Allergy/AdvReac Type Severity Reaction Status Date / Time No Known Allergies Allergy Verified 06/06/24 10:17 Discharge Plan Disposition Patient Disposition: [facility] Condition: Fair Discharge Order Discharge Orders: Discharge Order (Routine); Ordered 01/01/25 Ordered By: Anthony Farrell Follow up Plan Prescriptions/Medication Reconciliation: New sacubitril-valsartan [Entresto] 24-26 mg Tablet 1 tab PO BID 30 Days Qty: 60 0RF spironolactone 25 mg Tablet 25 mg PO DAILY 30 Days Qty: 30 0RF Continued Combivent Respimat 20-100 mcg/actuation Mist 1 puff INHALATION Q6HP PRN (Reason: Shortness Of Breath) losartan 50 mg Tablet 50 mg PO DAILY sennosides [senna] 8.6 mg Tablet 17.2 mg PO BID polyethylene glycol 3350 [Miralax] 17 gram Powder In Packet 17 g PO DAILY cetirizine 5 mg Tablet 5 mg PO DAILY melatonin 3 mg Tablet 6 mg PO HSP PRN (Reason: Insomnia) calcium carbonate-vitamin D3 600 mg-5 mcg (200 unit) Tablet 1 tab PO DAILY omeprazole 40 mg Capsule,Delayed Release(Dr/Ec) 40 mg PO BID guaifenesin 200 mg Tablet 200 mg PO Q6HP PRN (Reason: Cough) tamsulosin 0.4 mg Capsule 0.8 mg PO HS fluticasone propionate 50 mcg/actuation [place],Suspension 2 spray INTRANASAL HS Rx Instructions: administer into each nostril finasteride 5 mg Tablet 5 mg PO DAILY simethicone 80 mg Tablet,Chewable 80 mg PO Q6HP PRN (Reason: Gas ) rosuvastatin 5 mg Tablet 5 mg PO HS metoprolol tartrate 25 mg Tablet 25 mg PO BID apixaban 5 mg Tablet 5 mg PO BID Qty: 30 0RF Problem Reconciliation Problems Reviewed?: Yes Patient Discharge Instructions ACTIVITY: Continue current activity DIET: continue same diet Patient Instructions: Urinary Tract Infection, Rhabdomyolysis, Pneumonia--Adult, Heart Failure, DI for Urinary Retention in Men, Encephalopathy, Catheter-Associated Urinary Tract Infection, Stop Light Heart Failure, Stop Light Infection Print Language: Green[place]ic Providers Primary Care Provider: Provider,Referral Admit Provider: Clark Butt Attending Provider: Clark Butt
[2025-01-01 11:49] LABS: POC Glucose,Bedside 100 gm/dL (70-110)
[2025-01-01 12:23] LABS: POC Glucose,Bedside 95 gm/dL (70-110)
== END 2025-01-01 15:20 | DRG 280 ==
LOC: ER 10:03 → 2ND 14:23
PROVIDERS: Physician Assistant; Admitting Provider Student in an Organized Health Care Education/Training Program; Emergency Provider Student in an Organized Health Care Education/Training Program; Visit Provider Student in an Organized Health Care Education/Training Program
DX: I11.0 Hypertensive heart disease with heart failure (principal); G93.41 Metabolic encephalopathy; I21.4 Non-ST elevation (NSTEMI) myocardial infarction; U07.1 COVID-19; I50.23 Acute on chronic systolic (congestive) heart failure; J12.82 Pneumonia due to coronavirus disease 2019; N13.8 Other obstructive and reflux uropathy; N39.0 Urinary tract infection, site not specified; D61.818 Other pancytopenia; E87.20 Acidosis, unspecified; I42.8 Other cardiomyopathies; I34.0 Nonrheumatic mitral (valve) insufficiency; F03.90 Unspecified dementia, unspecified severity, without behavioral disturbance, psychotic disturbance, mood disturbance, and anxiety; I48.91 Unspecified atrial fibrillation; E78.2 Mixed hyperlipidemia; N40.1 Benign prostatic hyperplasia with lower urinary tract symptoms; D50.9 Iron deficiency anemia, unspecified; T79.6XXA Traumatic ischemia of muscle, initial encounter; W19.XXXA Unspecified fall, initial encounter; Y92.009 Unspecified place in unspecified non-institutional (private) residence as the place of occurrence of the external cause; R33.8 Other retention of urine; R53.81 Other malaise; R91.8 Other nonspecific abnormal finding of lung field; R05.3 Chronic cough; Z86.73 Personal history of transient ischemic attack (TIA), and cerebral infarction without residual deficits; Z87.891 Personal history of nicotine dependence; Z79.82 Long term (current) use of aspirin; Z86.711 Personal history of pulmonary embolism; Z79.01 Long term (current) use of anticoagulants; Z79.899 Other long term (current) drug therapy
CPT/HCPCS: 0223U; 36415; 51702; 70450; 70496; 70498; 71045; 71275; 72125; 72170; 80053; 81001; 82550; 82607; 82728; 82746; 82803; 82962; 83036; 83540; 83550; 83605; 83735; 83880; 84145; 84443; 84484; 85007; 85025; 86140; 87040; 87070; 87086; 87205; 93005; 93306; 94640; 94761; 97162; 97166; 97530; 99285; J0696; J1650; J1756; J1938; Q9957; Q9967

== ENCOUNTER 2025-02-18 17:36 | Observation (INO) | payer OTHER, MEDICARE, SELFPAY ==
[2025-02-18] VITALS (11 sets, daily range): BP systolic 137–156; BP diastolic 87–115; PULSE 108–114; RESP 14–23; TEMP 36.3–36.6; O2SAT 96–99; BMI 29.6
--- NOTE | 2025-02-18 17:32 | ECG_ITS ---
APPROVED REPORT Exam: Resting ECG HR:100 bpm ECG Measurements Heart Rate 100 AXES QRSd 91 QRS 82 QT 325 T 213 QTc 382 Conclusion ATRIAL FIBRILLATION WITH RAPID VENTRICULAR RESPONSE NONSPECIFIC T-WAVE ABNORMALITY ABNORMAL ECG UNCONFIRMED REPORT A-fib with RVR with a ventricular rate of [address] elevation or depression. Electronically signed by : STEPHEN BRIGGS, 02/21/2025 21:03:49
--- NOTE | 2025-02-18 17:40 | ED_ITS ---
<Statement entered by Tray Chaney MD - 02/18/25 22:22> I was consulted by the WILLIAM, and we discussed the complexity of the problems being addressed. I approve the treatment and management plan for this patient's care in the emergency department, thus performing a substantive portion of the medical decision making. Tray Chaney MD Discharge Plan Disposition Patient Disposition: Admitted Condition: Good Clinical Impressions Clinical Impression: HFrEF (heart failure with reduced ejection fraction), Pleural effusion, bilateral Altered mental status Qualifiers: Altered mental status type: disorientation Qualified Code(s): R41.0 - Disorientation, unspecified Discharge ED Provider: Tray Chaney General Adult HPI General Chief complaint: Altered Mental Status Stated complaint: Fall Time Seen by Provider: 02/18/25 17:37 Mode of Arrival: EMS Source of Information: Patient, EMS and Medical Record Limitations: Altered Mental Status History of Present Illness HPI narrative: 89-year-old male presents to the emergency department via EMS for multiple complaints, according to nursing staff EMS told them on intake that the patient's neighbor called EMS for generalized weakness abdominal pain bilateral lower extremity swelling as well as altered mental status. However patient tells me I do not know why I am here . Patient denies any fever chills admits to chest pain, when asking patient how long this been going on for, patient states a long time , patient denies any shortness of breath, denies any abdominal pain, denies any nausea vomiting constipation diarrhea no melena no hematochezia no hematemesis or hemoptysis, no urinary type symptomatology, patient denies any alcohol tobacco or drug use, other past medical history upon chart review is notable for hyperlipidemia, HFrEF, prior TIA/CVA, dementia, BPH, patient is on anticoagulation therapy with Eliquis, unsure if there was a fall or not, patient is GCS of 14, alert oriented to person and place disoriented to time, unsure of baseline initial triage vitals notable for tachycardia otherwise unremarkable. Please note that above description of symptoms, in this electronic medical record under categorization of recalled from ER triage doctor by RN are reflective of an initial nursing assessment, however, is not reflective of my full history and physical exam that was personally taken and clarified. Consequentially, this preceding description of symptoms, which may include the patient's categorized chief complaint in the EMR, do not reflect my personal clinical impression, and the ultimate description of history of present illness and patient stated complaints should be deferred to this section of the note. Unless stated otherwise or congruent with this section of the note, additional signs, symptoms, or incongruence should be interpreted as inaccurate with my clinical impression. Related Data Home Medications ?Medication ?Instructions ?Recorded ?Confirmed calcium 600 mg (as 1 tab PO DAILY 12/28/2412/17 carbonate)-vitamin D3 5 mcg (200 unit) tablet cetirizine 5 mg tablet 5 mg PO DAILY 12/28/2412/28 finasteride 5 mg tablet 5 mg PO DAILY 12/28/2412/28 fluticasone propionate 50 2 spray intranasal HS 12/28/24 mcg/actuation nasal spray,suspension guaifenesin 200 mg tablet 200 mg PO Q6HP PRN Cough 04/1112/28/24 ipratropium 20 mcg-albuterol 100 1 puff inhalation Q6H P PRN 12/28/24 12/28/24 mcg/actuation mist for inhalation Shortness Of Breath (Combivent Respimat) losartan 50 mg tablet 50 mg PO DAILY 12/28/2412/17 melatonin 3 mg tablet 6 mg PO HSP PRN Insomnia 04/1112/28/24 metoprolol tartrate 25 mg tablet 25 mg PO BID 12/28/24 12/28/24 omeprazole 40 mg capsule,delayed 40 mg PO BID 12/28/24 12/28/24 release polyethylene glycol 3350 17 gram 17 g PO DAILY 5 12/28/24 oral powder packet (Miralax) rosuvastatin 5 mg tablet 5 mg PO HS 12/28/24 12/28/24 sennosides 8.6 mg tablet (senna) 17.2 mg PO BID 12/28/24 simethicone 80 mg chewable tablet 80 mg PO Q6HP PRN Ga s 12/28/24 12/28/24 tamsulosin 0.4 mg capsule 0.8 mg PO HS 12/28/24 Previous Rx's ?Medication ?Instructions ?Recorded apixaban 5 mg tablet 5 mg PO BID #30 tabs 5 sacubitril 24 mg-valsartan 26 mg 1 tab PO BID 30 days #60 tabs 01/01/25 tablet (Entresto) spironolactone 25 mg tablet 25 mg PO DAILY 30 days #30 tabs 01/01/25 Allergies Allergy/AdvReac Type Severity Reaction Status Date / Time No Known Allergies Allergy Verified 06/06/24 10:17 [facility] Disclaimer: The information contained in this section may have been updated after the patient was seen, as this information can be updated by other users. Medical History (Updated 02/18/25 @ 20:37 by SLICK Pollock) Pneumonia due to COVID-19 virus Pleural effusion, bilateral Pneumonia Cardiomyopathy Severe left ventricular systolic dysfunction (LVSD) Hyperlipidemia Hypertension Non-STEMI (non-ST elevated myocardial infarction) UTI (urinary tract infection) BPH (benign prostatic hyperplasia) Family History (Updated 12/27/24 @ 14:52 by Kiki Dye, RN) Other Heart failure Hypertension Stroke Social History (Updated 12/27/24 @ 14:57 by Kiki Dye, RN) Smoking Status: Never smoker alcohol intake: former substance use type: denies use current occupational status: retired and other Travel in the last 8 weeks?: None household members: none housing: apartment Have you lived/traveled outside [place] in past 30 days?: No Contact w/someone who lives/traveled outside US past 30 days?: No Exposure to someone with infectious disease in past 14 days?: No Do you have a fever (greater than 100.4 F or 38 C)?: No Have you tested positive for COVID-19?: No Exposed to someone with COVID-19 in past 14 days?: No Do you have a sore throat?: No Do you have a cough?: No Do you have any weakness?: No Do you have any diarrhea?: No Are you experiencing any unusual bleeding?: No Do you have any muscle aches/pain?: No Do you have any abdominal pain?: No Are you experiencing loss of taste or smell?: No Other Medical History Have you received the Flu Vaccine for this season: No Have you received the Pneumonia Vaccine: No ROS Obtained: Yes All systems reviewed & no additional complaints except as documented Physical Exam General General appearance: alert and in no apparent distress Head Head exam: atraumatic and normocephalic Eye Eye exam: Present PERRL and EOMI ENT ENT exam: Present mucous membranes moist Neck Neck exam: Present normal inspection Chest Chest inspection: Present normal inspection and symmetric chest wall rise Respiratory Respiratory exam: Present normal lung sounds bilaterally; Absent respiratory distress Cardiovascular Cardiovascular exam: Present regular rate and normal rhythm Abdominal Exam Abdominal exam: Present soft; Absent tenderness, guarding, rebound or rigidity Extremities Exam Extremities exam: Present normal inspection Neurological Exam Neurological exam: Present alert and other (GCS 14, alert oriented to person and place disoriented to time, unsure of baseline, patient does move extremities command, no gross sensation deficit or any focal neurological deficit); Absent oriented X3 Psychiatric Psychiatric exam: Present normal affect Skin Skin exam: Present warm, dry and other (There is +1 bilateral lower extremity pitting edema) Medical Decision Making Medical Records Medical records reviewed: Yes I reviewed the patient's medical records. Screening: Per USPSTF and CDC recommendations, given the prevalence of disease in our region, it is our hospital?s policy to screen for HIV and viral Hepatitis for all patients aged 18 and over and those with ongoing risk factors. Reyes Inquiry Pt receiving controlled substance: No Reyes was queried for this patient: No Vital Signs: 02/18/25 17:51 02/18/25 19:18 02/18/25 19:34 Temperature 97.9 F Temperature Source Oral Pulse Rate Pulse Rate [Left Radial] 114 H Respiratory Rate 21 23 15 Blood Pressure 152/106 H 148/96 H Blood Pressure [Right Arm] 156/113 H Blood Pressure Mean 111 115 Blood Pressure Mean [Right Arm] 127 Blood Pressure Source Blood Pressure Position 02 Sat by Pulse Oximetry 99 Oxygen Delivery Method Room Air 02/18/25 20:00 02/18/25 20:00 02/18/25 20:30 Temperature Temperature Source Pulse Rate Pulse Rate [Left Radial] Respiratory Rate 17 18 Blood Pressure 146/87 H 156/106 H Blood Pressure [Right Arm] Blood Pressure Mean 106 113 Blood Pressure Mean [Right Arm] Blood Pressure Source Blood Pressure Position 02 Sat by Pulse Oximetry 97 Oxygen Delivery Method Room Air 02/18/25 20:51 02/18/25 21:00 02/18/25 21:00 Temperature Temperature Source Pulse Rate Pulse Rate [Left Radial] Respiratory Rate 16 17 Blood Pressure 141/103 H 141/103 H Blood Pressure [Right Arm] Blood Pressure Mean 109 111 Blood Pressure Mean [Right Arm] Blood Pressure Source Blood Pressure Position 02 Sat by Pulse Oximetry 97 98 Oxygen Delivery Method Room Air Room Air 02/18/25 21:26 Temperature 97.9 F Temperature Source Pulse Rate 109 H Pulse Rate [Left Radial] Respiratory Rate 16 Blood Pressure 141/103 H Blood Pressure [Right Arm] Blood Pressure Mean Blood Pressure Mean [Right Arm] Blood Pressure Source Manual Cuff/ Auscultation Blood Pressure Position Sitting 02 Sat by Pulse Oximetry Oxygen Delivery Method Room Air Lab Data Lab results reviewed: Yes I reviewed the patient's lab results. Lab Results 02/18/25 17:47: WBC 4.2 L, RBC 4.13 L, Hgb 11.9 L, Hct 33.5 L, MCV 81.1, MCH 28.8, MCHC 35.5 H, RDW 15.3, Plt Count 169, MPV 10.5 H, Neut % (Auto) 57.1, Lymph % (Auto) 22.1, Dickey % (Auto) 19.7 H, Eos % (Auto) 0.7, Baso % (Auto) 0.2, Neut # (Auto) 2.4, Lymph # (Auto) 0.9, Dickey # (Auto) 0.8, Eos # (Auto) 0.0, Baso # (Auto) 0.0, PT 13.1 H, INR 1.20 H, Sodium 134 L, Potassium 4.8, Chloride 103, Carbon Dioxide 28, Anion Gap 7.8, BUN 16, Creatinine 1.00, Estimated Creat Clear 57, Estimated GFR 70, Est GFR ( Amer) 85, Glucose 111 H, Calcium 8.9, Magnesium 1.9, Total Bilirubin 0.9, AST 63 H, ALT 96 H, Alkaline Phosphatase 123, Troponin I 0.03, NT-Pro-B Natriuret Pep 25908 H, Total Protein 7.0, Albumin 3.8, Globulin 3.2, Albumin/Globulin Ratio 1.2, Lipase 35, Plasma/Serum Alcohol < 10 02/18/25 19:15: Ammonia < 9 L 02/18/25 19:35: Lactate 1.8 02/18/25 20:20: Urine Color Yellow, Urine Appearance Clear, Urine pH 6.5, Ur Specific Marion 1.015, Urine Protein Trace, Urine Glucose (UA) Negative, Urine Ketones Negative, Urine Blood Negative, Urine Nitrate Negative, Urine Bilirubin Negative, Urine Urobilinogen 0.2, Ur Leukocyte Esterase Negative, Urine RBC None, Urine WBC 5-10, Ur Squamous Epith Cells None, Urine Bacteria 1+, Urine Mucus 1+, Urine Opiates Screen Negative, Urine Methadone Screen Negative, Ur Barbituates Screen Negative, Ur Phencyclidine Scrn Negative, Ur Amphetamines Screen Negative, U Benzodiazepines Scrn Negative, Urine Cocaine Screen Negative, U Marijuana (THC) Screen Negative 02/18/25 17:47 02/18/25 17:47 Orders (Tests/Meds): ED MEDICATIONS Generic Name Dose Route Start Last Admin Trade Name Freq PRN Reason Stop Dose Admin Furosemide 80 mg 02/18/25 20:35 02/18/25 21:30 Furosemide 40mg/4ml Vial IV 02/18/25 20:36 80 mg ONCE ONE Administration Discontinued Medications Generic Name Dose Route Start Last Admin Trade Name Freq PRN Reason Stop Dose Admin Haloperidol Lactate 2 mg 02/18/25 18:47 02/18/25 18:53 Haloperidol Lactate 5 Mg/Ml Vial IV 02/18/25 18:48 2 mg ONCE ONE Administration Iopamidol 75 ml 02/18/25 18:59 02/18/25 19:00 Iopamidol-370 (76%);100ml Bottle IV 02/18/25 19:00 75 ml ONCE ONE Administration Sodium Chloride 10 ml 02/18/25 18:59 02/18/25 19:00 Sodium Chloride 0.9% 10ml Syr (Rad Only) IV 02/18/25 19:00 10 ml ONCE ONE Administration ORDERS Category Date Time Status CT abdomen pelvis w con Stat Cat Scan 02/18/25 17:[address] head/brain wo con Stat Cat Scan 02/18/25 17:57 Completed XR chest portable Stat Exams 02/18/25 17:55 Completed Ammonia Stat Lab 02/18/25 19:15 Completed Complete Blood Count Auto Diff Stat Lab 02/18/25 17:47 Completed Comprehensive Metabolic Panel Stat Lab 02/18/25 17:47 Completed Drug Screen,Urine Stat Lab 02/18/25 20:20 Completed Ethanol [Ethyl Alcohol] Stat Lab 02/18/25 17:47 Completed Lactic Acid Stat Lab 02/18/25 19:35 Completed Lipase Stat Lab 02/18/25 17:47 Completed Magnesium Stat Lab 02/18/25 17:47 Completed NT Pro Brain Natriuretic Pep. Stat Lab 02/18/25 17:47 Completed PT INR [Prothrombin Time INR] Stat Lab 02/18/25 17:47 Completed Troponin I Q3H Lab 02/18/25 21:08 Received Troponin I Q3H Lab 02/19/25 00:00 Ordered Troponin I Stat Lab 02/18/25 17:47 Completed Urinalysis and Microscopic Stat Lab 02/18/25 20:20 Completed Medical Decision Narrative: 89-year-old male presents the emergency department with altered mental status, differential diagnose include but not limited to, metabolic encephalopathy, uremic encephalopathy, encephalopathy, cardiac arrhythmia, electrolyte disturbance, pneumonia, acute UTI, hypovolemia, failure to thrive among others. I discussed this patient's case with the attending physician Will obtain basic laboratory studies, EKG, CT head and pelvis with contrast, CT head without contrast, chest x-ray, UDS urinalysis at the alcohol level lactic acid level lipase level magnesium level proBNP PT/INR, troponin, urinalysis, and ammonia level. CBC notable for neutropenia at 4.2, erythrocyte opinion at 4.13, hemoglobin is 11.9/35.5, which appears to be around baseline anemia, otherwise unremarkable CBC I along with the attending physician for the patient's EKG at approximately 1732, atrial fibrillation at 100 bpm, QT intervals 325/382 otherwise no ischemic changes no STEMI. Coags are 13.1 prothrombin time and INR is 1.2 Also I was able to talk to the patient's caregiver at the bedside, at approximately 6:20 PM, he states the patient was sent over here for bilateral lower extremity swelling, his confusion appears to be at baseline, as well as some weird looking stomach , as well as some chest congestion . Hyponatremia at 134 is noted in the patient's CMP, AST elevation that is minimal at 63 and ALT elevation that is minimal at 96, unsure of chronicity, lipase within normal limits, ethyl alcohol level within normal limits. Of note nursing staff notified me that the patient is becoming combative when attempting to get CT scans, patient is altered mental status unsure of baseline, history of dementia and agitation, will give 2 mg IV Haldol to the patient's outpatient can tolerate CT scan to rule out any life-threatening pathology. Troponin is 0.03, proBNP is 15,900 I reviewed the patient's chest x-ray along the corresponding radiologic report, small bilateral pleural effusions I reviewed the patient's CT head without contrast along the corresponding radiologic report, no acute intracranial abnormality. Reviewed the patient's CT and pelvis with contrast along the corresponding radiologic report, no acute intra-abdominal findings, moderate right and small left pleural effusion, mild anasarca. Ammonia levels less than 9 No lactic acidosis. Will give the patient 80 mg IV Lasix for CHF exacerbation. I discussed this patient's case with Janell Da Silva APRN the hospitalist provider at approximately 8:33 PM, she is in agreement with the current admission plan/treatment plan. I discussed need for admission with the patient and the caregiver at the bedside ( Swapnil Hollins) he is in agreement with current admission plan/treatment plan, will notify patient's facility [facility]. Closed-loop communication performed with hospitalist provider as stated above at approximately 8:48 PM, discussing the patient has been going in and out of A-fib here in the emergency department, has known A-fib on rate control medication with metoprolol 25 mg p.o. twice daily as well as anticoagulation therapy with Eliquis, also at this point in time patient is not required any additional rate controlling medications here in the emergency department thus far. UA negative and UDS is negative. Microscopic analysis of the patient's urine is notable for 5-10 WBCs no squamous epithelial cells no red cells, 1+ bacteria 1+ urine mucus. Critical Care Critical Care Time Critical Care Time: No
--- NOTE | 2025-02-18 17:55 | CT_ITS ---
PROCEDURE INFORMATION: Exam: CT Abdomen And Pelvis With Contrast Exam date and time: 02/18/2025 6:56 PM Age: 89 years old Clinical indication: Other: Altered mental status, abdominal pain TECHNIQUE: Imaging protocol: Computed tomography of the abdomen and pelvis with contrast. Radiation optimization: All CT scans at this facility use at least one of these dose optimization techniques: automated exposure control; mA and/or kV adjustment per patient size (includes targeted exams where dose is matched to clinical indication); or iterative reconstruction. Contrast material: ISOVUE; Contrast volume: 75 ml; Contrast route: IV; COMPARISON: CT ABDOMEN PELVIS W CON 11/29/2024 9:31 PM FINDINGS: Lungs: Mild atelectasis. Pleural spaces: Moderate right and small left pleural effusions. Heart: Cardiomegaly. Coronary arteries: Coronary artery calcifications. Liver: Normal. No mass. Gallbladder and biliary ducts: Normal. No calcified stones. No ductal dilation. Pancreas: Normal. No ductal dilation. Spleen: Few punctate calcified granulomas. No splenomegaly. Adrenal glands: Normal. No mass. Kidneys and ureters: Stable bilateral renal cysts. No hydronephrosis. Stomach and bowel: Colonic diverticulosis. No obstruction. No mucosal thickening. Appendix: No evidence of appendicitis. Intraperitoneal space: Unremarkable. No free air. No significant fluid collection. Vasculature: Atherosclerosis. No abdominal aortic aneurysm. Lymph nodes: Unremarkable. No enlarged lymph nodes. Urinary bladder: Superior urinary bladder diverticulum. Reproductive: Prostatic calcifications. Left hydrocele. Bones/joints: Degenerative changes. No acute fracture. Soft tissues: Mild anasarca. IMPRESSION: 1. No acute intra-abdominal findings. 2. Moderate right and small left pleural effusions. 3. Mild anasarca.
--- NOTE | 2025-02-18 17:55 | XR_ITS ---
PROCEDURE INFORMATION: Exam: XR Chest Exam date and time: 02/18/2025 7:06 PM Age: 89 years old Clinical indication: Shortness of breath; Additional info: Soa/cp TECHNIQUE: Imaging protocol: Radiologic exam of the chest. Views: 1 view. COMPARISON: CR XR CHEST PORTABLE 12/30/2024 4:48 PM FINDINGS: Lungs: No consolidation. Pleural spaces: Small bilateral pleural effusions. No pneumothorax. Heart/Mediastinum: Cardiomegaly. Calcified atherosclerotic changes of the thoracic aorta. Bones/joints: Unremarkable. IMPRESSION: Small bilateral pleural effusions.
--- NOTE | 2025-02-18 17:57 | CT_ITS ---
PROCEDURE INFORMATION: Exam: CT Head Without Contrast Exam date and time: 02/18/2025 6:53 PM Age: 89 years old Clinical indication: Altered mental status/memory loss TECHNIQUE: Imaging protocol: Computed tomography of the head without contrast. Radiation optimization: All CT scans at this facility use at least one of these dose optimization techniques: automated exposure control; mA and/or kV adjustment per patient size (includes targeted exams where dose is matched to clinical indication); or iterative reconstruction. COMPARISON: CT ANGIO HEAD 12/27/2024 11:15 AM FINDINGS: Limitations: Patient motion. No acute calvarial fracture. Brain: Age-related volume loss. Decreased attenuation of the supratentorial white matter is likely secondary to chronic microvascular ischemia. Chronic infarct within the right MCA territory. No acute intracranial hemorrhage. No midline shift. Cerebral ventricles: Ventriculomegaly is commensurate for degree of volume loss. Paranasal sinuses: Minor paranasal sinus disease. Mastoid air cells: Visualized mastoid air cells are well aerated. Bones: Unremarkable. No acute fracture. Soft tissues: Unremarkable. IMPRESSION: No acute intracranial abnormality.
[2025-02-18 18:00] LABS: Hematocrit 33.5 % (42.0-52.0); Hemoglobin 11.9 g/dL (14.1-18.0); Immature Granulocytes % 0.2 %; Mean Corpuscular HGB Conc 35.5 g/dL (31.8-35.4); Mean Corpuscular Hemoglobin 28.8 pg (27.0-31.2); Mean Corpuscular Volume 81.1 fl (80-94); Nucleated Red Blood Cells % 0 %; Platelet Count 169 K/mm3 (142-424); Red Blood Count 4.13 M/mm3 (4.60-6.20); Red Cell Distribution Width-SD 45.1 fL; White Blood Count 4.2 K/mm3 (4.8-10.8)
[2025-02-18 18:13] LABS: INR 1.20 (0.9-1.1); Prothrombin Time 13.1 seconds (10.1-12.5)
[2025-02-18 18:14] LABS: Alanine Aminotransferase 96 U/L (12-78); Albumin Level 3.8 g/dl (3.5-5.0); Albumin/Globulin Ratio 1.2 (1.1-1.8); Alkaline Phosphatase 123 U/L (38-126); Anion Gap 7.8 mEq/L (5-15); Aspartate Amino Transferase 63 U/L (17-59); Bilirubin,Total 0.9 mg/dl (0.2-1.3); Blood Urea Nitrogen 16 mg/dl (9-20); Calcium 8.9 mg/dl (8.4-10.2); Carbon Dioxide 28 mmol/L (22.0-30.0); Chloride 103 mmol/L (98-107); Creatinine Clearance Estimated 57 mL/min (50-200); Creatinine,Serum 1.00 mg/dl (0.66-1.25); Estimated Glomerular Filt Rate 70 ml/min (>60); GFR (African American) 85 ML/MIN (>60); Globulin 3.2 g/dL (1.3-3.2); Glucose 111 mg/dl (74-100); Lipase 35 U/L (23-300); Magnesium 1.9 mg/dl (1.6-2.3); Potassium 4.8 mmoL/L (3.5-5.1); Sodium 134 mmol/L (136-145); Total Protein,Serum 7.0 g/dl (6.3-8.2)
[2025-02-18 18:26] LABS: NT Pro Brain Natriuretic Pep. 15900 pg/mL (0-450); Troponin I 0.03 ng/ml (0.00-0.034)
[2025-02-18] MEDS: HALOPERIDOL LACTATE 5 MG/ML VIAL 2 MG IV (18:53)
[2025-02-18] MEDS: SODIUM CHLORIDE 0.9% 10ML SYR (RAD ONLY) 10 ML IV (19:00)
[2025-02-18] MEDS: IOPAMIDOL-370 (76%);100ML BOTTLE 75 ML IV (19:00)
[2025-02-18 19:48] LABS: Ammonia < 9 umol/L (9-30)
[2025-02-18 20:28] LABS: Microscopic, Urine URINE MICROSCOPIC (MICROSCOPIC)
[2025-02-18 20:31] LABS: Bilirubin,Urine Negative (Negative); Color,Urine YELLOW (Yellow); Glucose,Urine (UA) Negative (Negative); Ketones,Urine Negative (Negative); Leukocyte Esterase,Urine Negative (Negative); PH,Urine 6.5 (5.0-8.5); Protein,Urine TRACE (Negative); Specific Gravity, Urine 1.015 (1.005-1.030); Urobilinogen,Urine 0.2 EU/dl (0.2)
[2025-02-18 21:00] LABS: Amphetamine/Metha Screen,Urine Negative ng/ml (<1000); Barbiturates Screen,Urine Negative ng/ml (<200); Benzodiazepines Screen,Urine Negative ng/ml (<200); Methadone Screen,Urine Negative ng/ml (<300); Opiate Screen,Urine Negative ng/ml (<300); Phencyclidine Screen,Urine Negative ng/ml (<25)
[2025-02-18 21:14] LABS: Bacteria,Urine 1+ /lpf; Mucus,Urine 1+ /lpf
[2025-02-18] MEDS: FUROSEMIDE 40MG/4ML VIAL 80 MG IV (21:30)
--- NOTE | 2025-02-18 21:36 | PC.NURSE ---
Patient arrived to floor via stretcher from ED at 21:34.
[2025-02-18 21:37] LABS: Troponin I 0.03 ng/ml (0.00-0.034)
--- NOTE | 2025-02-18 22:24 | PC.NURSE ---
Called into room by tech stating that patient was excessively agitated. Patient was yelling out that he had to pee. Patient currently has male purewick on and was educated and redirected on placement of device and instructed on use. Due to patient past medical hx of dementia patient is hard to redirect and does not follow simple commands. With help of tech patient was assisted to sit on side of bed and offered a urinal. Patient attempted to use urinal but was unsuccessful, adamantly stating that he needed to walk to bathroom to use the toilet. after division head socks placed on patient he was assisted x2 to stand at bed for ambulation to toilet. Patient was a total assist to stand and was unable to ambulate. Patient safely lowered back to bed, and repositioned to comfort. Call made to hospitalist and informed of patient presentation and agitation. Verbal orders to place catheter. Patient tolerated insertion of catheter well. Repositioned to comfort, and fresh chux along with brief placed on patient. Patient is now resting comfortably in bed with eyes close. Respirations even and unlabored. No signs of agitation noted at this time. Patient with immediate urine output of 650ml in castaneda bag. Primary nurse Isabelle, updated on patient condition and events that occurred at bedside.
--- NOTE | 2025-02-18 23:00 | P.HP_ITS ---
<Statement entered by Clark Butt MD - 02/27/25 10:32> Agree with the plan of care as outlined by the [facility]. History of Present Illness *Admission Date: 02/18/25 *Reason for visit:: Generalized weakness *History of present illness: Patient is a 89-year-old male with a past medical history significant for dementia, prior TIA/CVA, HFrEF, BPH, chronic anticoagulation with Eliquis. Presents to [facility] generalized weakness and lower extremity swelling. History provided per staff and chart review as patient is a poor historian. It was noted patient arrived per EMS they concerned his neighbor reporting patient has had progressive weakness. Patient caregiver reported patient having chest congestion with a notable increase in lower extremity swelling. Caregiver also reported his confusion is consistent with his baseline. Also there was concern of a possible fall. CT head obtained for reassurance due to chronic anticoagulation. Chest x-ray obtained in the emergency department consistent with small bilateral pleural effusions. CT imaging abdomen and pelvis suggestive of moderate right and small left pleural effusion, mild anasarca. Patient received IV Lasix 80 mg while in the emergency department. Upon assessment at bedside he is resting comfortably in bed. Nontoxic-appearing. Hemodynamically stable, room air. Initial ED workup included laboratory studies and imaging. WBC 4.2, INR 1.20, sodium 134, AST 63, ALT 96, ammonia level less than 9, BNP 15,900. Chest x-ray obtained personally reviewed, revealing small bilateral pleural effusions. CT head without any acute finding. CT abdomen and pelvis with finding of moderate right and small left pleural effusion, mild anasarca. [facility] Disclaimer: The information contained in this section may have been updated after the patient was seen, as this information can be updated by other users. Medical History Pneumonia due to COVID-19 virus Pleural effusion, bilateral Pneumonia Cardiomyopathy Severe left ventricular systolic dysfunction (LVSD) Hyperlipidemia Hypertension Non-STEMI (non-ST elevated myocardial infarction) UTI (urinary tract infection) BPH (benign prostatic hyperplasia) Family History Other Heart failure Hypertension Stroke Social History Smoking Status: Never smoker alcohol intake: former substance use type: denies use current occupational status: retired and other Travel in the last 8 weeks?: None household members: none housing: apartment Have you lived/traveled outside [place] in past 30 days?: No Contact w/someone who lives/traveled outside US past 30 days?: No Exposure to someone with infectious disease in past 14 days?: No Do you have a fever (greater than 100.4 F or 38 C)?: No Have you tested positive for COVID-19?: No Exposed to someone with COVID-19 in past 14 days?: No Do you have a sore throat?: No Do you have a cough?: No Do you have any weakness?: No Do you have any diarrhea?: No Are you experiencing any unusual bleeding?: No Do you have any muscle aches/pain?: No Do you have any abdominal pain?: No Are you experiencing loss of taste or smell?: No Other Medical History Have you received the Flu Vaccine for this season: No Have you received the Pneumonia Vaccine: No Review of Systems Review of Systems Review of systems:: unable to obtain Review of systems (narrative): Underlying dementia, unable to participate with assessment questions. Constitutional Constitutional: Reports as per HPI Eyes Eyes: Reports as per HPI ENT Ears, Nose, Mouth, and Throat: Reports as per HPI *Cardiovascular Cardiovascular: Reports as per HPI *Respiratory Respiratory: Reports as per HPI *Gastrointestinal Gastrointestinal: Reports as per HPI *Genitourinary Genitourinary: Reports as per HPI *Musculoskeletal Musculoskeletal: Reports as per HPI Integumentary/Breasts Skin/Breast: Reports as per HPI *Neurologic Neurologic: Reports as per HPI Psychiatric Psychiatric: Reports as per HPI Endocrine Endocrine: Reports as per HPI Hematologic/Lymphatic Hematologic/Lymphatic: Reports as per HPI Allergic/Immunologic Allergic/Immunologic: Reports as per HPI Meds Home Medications and Allergies Home Medications ?Medication ?Instructions ?Recorded ?Confirmed ?Type calcium 600 mg (as 1 tab PO DAILY 12/28/2412/17 History carbonate)-vitamin D3 5 mcg (200 unit) tablet cetirizine 5 mg tablet 5 mg PO DAILY 12/28/2412/28 History finasteride 5 mg tablet 5 mg PO DAILY 12/28/2412/28 History fluticasone propionate 50 2 spray intranasal HS 12/28/24 History mcg/actuation nasal spray,suspension guaifenesin 200 mg tablet 200 mg PO Q6HP PRN Cough 04/1112/28/24 History ipratropium 20 mcg-albuterol 100 1 puff inhalation Q6H P PRN 12/28/24 12/28/24 History mcg/actuation mist for inhalation Shortness Of Breath (Combivent Respimat) losartan 50 mg tablet 50 mg PO DAILY 12/28/2412/17 History melatonin 3 mg tablet 6 mg PO HSP PRN Insomnia 04/1112/28/24 History metoprolol tartrate 25 mg tablet 25 mg PO BID 12/28/24 12/28/24 History omeprazole 40 mg capsule,delayed 40 mg PO BID 12/28/24 12/28/24 History release polyethylene glycol 3350 17 gram 17 g PO DAILY 5 12/28/24 History oral powder packet (Miralax) rosuvastatin 5 mg tablet 5 mg PO HS 12/28/24 12/28/24 History sennosides 8.6 mg tablet (senna) 17.2 mg PO BID 12/28/24 History simethicone 80 mg chewable tablet 80 mg PO Q6HP PRN Ga s 12/28/24 12/28/24 History tamsulosin 0.4 mg capsule 0.8 mg PO HS 12/28/24 History apixaban 5 mg tablet 5 mg PO BID #30 tabs 5 12/28/24 Rx sacubitril 24 mg-valsartan 26 mg 1 tab PO BID 30 days #60 tabs 01/01/25 Rx tablet (Entresto) spironolactone 25 mg tablet 25 mg PO DAILY 30 days #30 tabs 01/01/25 Rx New Prescriptions to Start Prescriptions: Allergies Allergy/AdvReac Type Severity Reaction Status Date / Time No Known Allergies Allergy Verified 06/06/24 10:17 Exam Data for Last 24 hours Vital signs and Labs for Last 24 Hours: Temp Pulse Resp BP Pulse Ox O2 Del Method 97.3 F L 108 H 14 137/115 H 96 Room Air 02/18/25 22:00 02/18/25 22:00 02/18/25 22:00 02/18/25 22:00 02/18/25 22:00 02/18/25 22:00 Laboratory Results - last 24 hr 02/18/25 17:47: WBC 4.2 L, RBC 4.13 L, Hgb 11.9 L, Hct 33.5 L, MCV 81.1, MCH 28.8, MCHC 35.5 H, RDW 15.3, Plt Count 169, MPV 10.5 H, Neut % (Auto) 57.1, Lymph % (Auto) 22.1, Reynolds % (Auto) 19.7 H, Eos % (Auto) 0.7, Baso % (Auto) 0.2, Neut # (Auto) 2.4, Lymph # (Auto) 0.9, Reynolds # (Auto) 0.8, Eos # (Auto) 0.0, Baso # (Auto) 0.0, PT 13.1 H, INR 1.20 H, Sodium 134 L, Potassium 4.8, Chloride 103, Carbon Dioxide 28, Anion Gap 7.8, BUN 16, Creatinine 1.00, Estimated Creat Clear 57, Estimated GFR 70, Est GFR ( Amer) 85, Glucose 111 H, Calcium 8.9, Magnesium 1.9, Total Bilirubin 0.9, AST 63 H, ALT 96 H, Alkaline Phosphatase 123, Troponin I 0.03, NT-Pro-B Natriuret Pep 63521 H, Total Protein 7.0, Albumin 3.8, Globulin 3.2, Albumin/Globulin Ratio 1.2, Lipase 35, Plasma/Serum Alcohol < 10 02/18/25 19:15: Ammonia < 9 L 02/18/25 19:35: Lactate 1.8 02/18/25 20:20: Urine Color Yellow, Urine Appearance Clear, Urine pH 6.5, Ur Specific [place] 1.015, Urine Protein Trace, Urine Glucose (UA) Negative, Urine Ketones Negative, Urine Blood Negative, Urine Nitrate Negative, Urine Bilirubin Negative, Urine Urobilinogen 0.2, Ur Leukocyte Esterase Negative, Urine RBC None, Urine WBC 5-10, Ur Squamous Epith Cells None, Urine Bacteria 1+, Urine Mucus 1+, Urine Opiates Screen Negative, Urine Methadone Screen Negative, Ur Barbituates Screen Negative, Ur Phencyclidine Scrn Negative, Ur Amphetamines Screen Negative, U Benzodiazepines Scrn Negative, Urine Cocaine Screen Negative, U Marijuana (THC) Screen Negative 11/03/25 21:08: Troponin I 0.03 I & O for Last 24 hours: Intake & Output 02/15/25 02/16/25 02/17/25 02/18/25 23:59 23:59 22:59 23:59 Output Total 651 / 651 Balance -651 / -651 Weight 80.739 kg Constitutional Constitutional: no acute distress, chronically ill appearing and agitated *Routine HEENT Exam Head: Present normocephalic and atraumatic Eye: Present EOMI, PERRL and normal accommodation ENT: Present mucous membranes dry *Routine Neck Exam Neck: Present supple and full ROM *Routine Respiratory Exam Respiratory: Present decreased breath sounds and crackles *Routine Cardiovascular Exam Cardiovascular: Present irregular rhythm Comments: Atrial fibrillation *Routine Abdominal Exam Abdominal: Present soft and normoactive bowel sounds *Routine Rectal Exam Rectal:: deferred *Routine Genitalia Exam Genitalia:: deferred *Routine Extremities Exam Extremities: Present edema, pulses intact and normal capillary refill Comments: 1+ edema Routine Back/Spine/Pelvis Exam Back/Spine: Present full ROM *Routine Skin Exam Skin: Present intact Comments: Skin wounds to right lower extremity, rosales region, healing. *Routine Neurological Exam Neurological: Present altered mental status Comments: Secondary to dementia Routine Psychiatric Exam Psychiatric: Present normal affect Comments: At times agitated, underlying dementia Assessment and Plan *Assessment and plan (1) Acute exacerbation of CHF (congestive heart failure): Status: Acute Category: Medical Code(s): I50.9 - Heart failure, unspecified (2) HFrEF (heart failure with reduced ejection fraction): Status: Acute Category: Medical Code(s): I50.20 - Unspecified systolic (congestive) heart failure (3) Pleural effusion, bilateral: Status: Acute Category: Medical Code(s): J90 - Pleural effusion, not elsewhere classified (4) Anasarca: Status: Acute Category: Medical Code(s): R60.1 - Generalized edema (5) Paroxysmal A-fib: Status: Acute Category: Medical Code(s): I48.0 - Paroxysmal atrial fibrillation (6) Chronic anticoagulation: Status: Acute Category: Medical Code(s): Z79.01 - FPC (current) use of anticoagulants (7) Hyperlipidemia: Status: Acute Qualifiers: Hyperlipidemia type: mixed hyperlipidemia Qualified Code(s): E78.2 - Mixed hyperlipidemia Category: Medical Code(s): E78.5 - Hyperlipidemia, unspecified (8) Benjamin catheter in place: Status: Acute Category: Medical Code(s): Z97.8 - Presence of other specified devices (9) Urinary retention: Status: Acute Category: Medical Code(s): R33.9 - Retention of urine, unspecified (10) BPH (benign prostatic hyperplasia): Status: Acute Category: Medical Code(s): N40.0 - Benign prostatic hyperplasia without lower urinary tract symptoms (11) Dementia: Status: Acute Category: Medical Code(s): F03.90 - Unspecified dementia, unspecified severity, without behavioral disturbance, psychotic disturbance, mood disturbance, and anxiety Plan 1. HFrEF exacerbation/bilateral pleural effusions/hypertension: BNP 15,900, imaging study noted bilateral pleural effusions and anasarca. Bilateral lower extremity edema 1?2+. Received IV 80 mg Lasix. Resume diuresis IV Lasix 40. 2D echo obtained on (12/27/24). Closely monitor intake/output, daily weight, monitor electrolytes. Consult placed to cardiology, pending further evaluation. 2. Atrial fibrillation: History of atrial fibrillation on chronic anticoagulation. ED provider noted short bouts of A-fib RVR correlating with agitation. Currently controlled, telemetry monitoring. 3. History of CVA: Resume aspirin Plavix Plavix and statin therapy. 4. Dementia: Patient reported to be agitated while in the emergency department. Received IV Haldol. Patient is notably confused but cooperative, resting in bed without agitation. Baseline neurostatus per caregiver. 6. BPH/urinary retention: Receiving 80 mg IV Lasix in the emergency department, patient became very agitated after arriving from the ED. Trying to get out of bed attempting to go to the bathroom. Patient was unable to urinate. Nursing staff noted urinary retention per bladder scanner, approx 600 ml. Benjamin cath placed due to urinary retention while receiving IV diuretics. Resume home medication tamsulosin 0.8 mg after pharmacy verification. 7. DVT prophylaxis: Eliquis Full Code Cardiac diet/low sodium clinical haematologist Swapnil Mayes resides at [facility] I personally discussed the management of this patient with the emergency department provider Tray Chaney. Admit patient for further underlying congestive heart failure, IV diuresis, monitoring labs closely, cardiology consult.
[2025-02-19] VITALS (8 sets, daily range): BP systolic 146–158; BP diastolic 73–106; PULSE 80–130; RESP 16–22; TEMP 36.6–36.9; O2SAT 87–98; BMI 30.6
[2025-02-19 01:05] LABS: Troponin I 0.04 ng/ml (0.00-0.034)
[2025-02-19 01:34] LABS: Microscopic, Urine URINE MICROSCOPIC (MICROSCOPIC)
[2025-02-19 01:37] LABS: Bilirubin,Urine Negative (Negative); Color,Urine YELLOW (Yellow); Glucose,Urine (UA) Negative (Negative); Ketones,Urine Negative (Negative); Leukocyte Esterase,Urine Negative (Negative); PH,Urine 6.0 (5.0-8.5); Protein,Urine Negative (Negative); Specific Gravity, Urine <= 1.005 (1.005-1.030); Urobilinogen,Urine 0.2 EU/dl (0.2)
--- NOTE | 2025-02-19 04:23 | PC.NURSE ---
patient confused, unable to complete med rec
[2025-02-19 06:10] LABS: Hematocrit 34.9 % (42.0-52.0); Hemoglobin 12.4 g/dL (14.1-18.0); Immature Granulocytes % 0.2 %; Mean Corpuscular HGB Conc 35.5 g/dL (31.8-35.4); Mean Corpuscular Hemoglobin 28.2 pg (27.0-31.2); Mean Corpuscular Volume 79.3 fl (80-94); Nucleated Red Blood Cells % 0 %; Platelet Count 153 K/mm3 (142-424); Red Blood Count 4.40 M/mm3 (4.60-6.20); Red Cell Distribution Width-SD 42.6 fL; White Blood Count 4.4 K/mm3 (4.8-10.8)
[2025-02-19 06:18] LABS: Albumin Level 4.2 g/dl (3.5-5.0); Chloride 100 mmol/L (98-107); Potassium 4.1 mmoL/L (3.5-5.1); Sodium 137 mmol/L (136-145)
[2025-02-19 06:21] LABS: Alanine Aminotransferase 95 U/L (12-78); Albumin/Globulin Ratio 1.8 (1.1-1.8); Alkaline Phosphatase 152 U/L (38-126); Anion Gap 11.1 mEq/L (5-15); Aspartate Amino Transferase 61 U/L (17-59); Bilirubin,Total 1.2 mg/dl (0.2-1.3); Blood Urea Nitrogen 16 mg/dl (9-20); Calcium 8.6 mg/dl (8.4-10.2); Carbon Dioxide 30 mmol/L (22.0-30.0); Creatinine Clearance Estimated 54 mL/min (50-200); Creatinine,Serum 1.10 mg/dl (0.66-1.25); Estimated Glomerular Filt Rate 63 ml/min (>60); GFR (African American) 76 ML/MIN (>60); Globulin 2.3 g/dL (1.3-3.2); Glucose 103 mg/dl (74-100); Total Protein,Serum 6.5 g/dl (6.3-8.2)
[2025-02-19] MEDS: METOPROLOL SUCCINATE XL 25MG TABLET 25 MG PO (06:54)
--- NOTE | 2025-02-19 08:01 | PC.NURSE ---
Pt. was admitted overnight from the ED with CHF exacerbation. Pt. was given Lasix in the ED. when pt. arrived on the floor he was very agitated and was needing to void but could not. Pt. having urinary retention and a Benjamin was place. Pt.had good urine output . Pt. on room air. Alert to name only. Pt. slept well overnight. call bagley in reach. Bed in low and locked position, Bed alarm on.
[2025-02-19] MEDS: FUROSEMIDE 40MG/4ML VIAL 40 MG IV ×2 (08:04→16:58)
--- NOTE | 2025-02-19 09:19 | [facility].OTEV ---
OT Evaluation Rehab OT IP Evaluation Start: 02/19/25 04:22 Freq: ONCE Status: Active Protocol: Document 02/19/25 09:16 KAUSHAL (Rec: 02/19/25 09:19 [facility] [id number]) Rehab OT IP Assessment Subjective History Pt oriented x 2 on arrival. Pt agreeable to engage in therapy evaluation. Pt admitted on 02/18/25 due to generalized weakness. History and physical: Patient is a 89-year-old male with a past medical history significant for dementia, prior TIA/CVA, HFrEF, BPH, chronic anticoagulation with Eliquis. Presents to [facility] generalized weakness and lower extremity swelling. History provided per staff and chart review as patient is a poor historian. It was noted patient arrived per EMS they concerned his neighbor reporting patient has had progressive weakness . Patient caregiver reported patient having chest congestion with a notable increase in lower extremity swelling. Caregiver also reported his confusion is consistent with his baseline. Also there was concern of a possible fall. CT head obtained for reassurance due to chronic anticoagulation. Chest x-ray obtained in the emergency department consistent with small bilateral pleural effusions. CT imaging abdomen and pelvis suggestive of moderate right and small left pleural effusion, mild anasarca. Patient received IV Lasix 80 mg while in the emergency department. Upon assessment at bedside he is resting comfortably in bed. Nontoxic-appearing. Hemodynamically stable, room air. Initial ED workup included laboratory studies and imaging. WBC 4.2, INR 1.20, sodium 134, AST 63, ALT 96 , ammonia level less than 9, BNP 15,900. Chest x-ray obtained personally reviewed, revealing small bilateral pleural effusions. CT head without any acute finding. CT abdomen and pelvis with finding of moderate right and small left pleural effusion, mild anasarca. Subjective Prior to being in the hospital, pt reports he lived alone at home. Pt claims normally he was independent with all ADLs and IADLs. He did use a rolling walker during functional transfers. Pt also claims he was still driving. Objective Patient Orientation Person,Birthday Right Upper Min Limitation <25% Extremity Gross ROM Left Upper Extremity Min Limitation <25% Gross ROM Shoulder ROM Muscle Weakness Limitations Elbow ROM Muscle Weakness Limitations Wrist Limitations of Muscle Weakness Range of Motion Bed Mobility bed mobility-scooting,bed mobility - supine/sit Assist Level Minimal x 2 (25% assist) Transfer Training Sit/Stand Transfer Assist Level Moderate x 2 (50% assist) Lower Body Dressing Maximum Assistance Ability Rehab OT IP prob,goals,plan Problems Date of Evaluation: 02/19/25 OT IP Problems Bed Mobility,Transfers,Balance,Self care,Safety Rehab Potential Rehab Potential Good Equipment Needs Assistive Devices Rolling / Wheeled Walker Plan OT intervention Plan Bed Mobility,Transfers,Balance,Self care,Safety, Therapeutic Exercise OT Plan Frequency Daily Duration LOS Discharge Goals Bed Mobility Ability Assistance x1 Sit to Stand Chair Minimal x 1 (25% assist) Transfer Ability Chair Transfer Minimal x 1 (25% assist) Ability Chair Transfer Sit to/from Ambulatory Technique Chair Transfer Rolling Walker Assistive Devices Lower Body Dressing Moderate Assistance Ability Upper Body Dressing Minimal Assistance Ability Performing Toilet Moderate Assistance Hygiene Ability Overall Commode/ Minimal Assistance Toilet Transfer Ability Commode/Toilet Sit to/from Ambulatory Transfer Technique Discharge Plan OT Discharge Plan Pt will continue to be seen for OT services while at [facility]. At this time, pt would benefit most from short term rehab at SNF following discharge from hospital. Continued skilled therapy is important in order for patient to improve strength, safety, endurance, ADL independence, and functional transfers to reach PLOF. Eval Complexity Eval Charge Codes 42801 - Moderate Complexity PHYSICIAN CERTIFICATION: I certify the specified therapy services for Oumar Burnham are required, authorized, and reviewed every 30 days.
--- NOTE | 2025-02-19 09:34 | P.PN_ITS ---
<Statement entered by Clark Butt MD - 02/23/25 14:19> Agree with the plan of care as outlined by the COAGULATING BATH MIXER. Subjective *Date: 02/19/25 *Time: 12:31 Interval history: Mr. Burnham is doing well this morning. He is able to tell me his name, , where he is and situation. Caregiver at bedside expresses that patient has been nonambulatory for approximately 6 months. Patient was admitted in December 2024 and discharged to [facility] in [place]. He currently resides at home with a caregiver. Per caregiver patient has intermittent confusion/altered mental status. Patient appears to be doing well this morning. Medical Exam Vital signs and Labs for Last 24 Hours: Vital Signs Temp Pulse Pulse Resp BP BP Pulse Ox 02/19/25 09:00 02/19/25 08:00 97.9 F 116 H 18 146/76 H 98 02/19/25 08:00 02/19/25 07:00 02/19/25 05:00 02/19/25 04:00 100 H 02/19/25 04:00 98.4 F 86 17 158/106 H 96 02/19/25 03:00 02/19/25 01:00 02/19/25 00:00 80 02/18/25 23:00 02/18/25 22:45 110 H 02/18/25 22:00 97.3 F L 108 H 14 137/115 H 96 02/18/25 21:26 97.9 F 109 H 16 141/103 H 02/18/25 21:00 17 98 02/18/25 21:00 141/103 H 02/18/25 20:55 14 96 02/18/25 20:51 16 141/103 H 97 02/18/25 20:30 18 156/106 H 97 02/18/25 20:00 146/87 H 02/18/25 20:00 17 02/18/25 19:34 15 148/96 H 02/18/25 19:18 23 152/106 H 02/18/25 17:51 97.9 F 114 H 21 156/113 H 99 O2 Del Method 02/19/25 09:00 Room Air 02/19/25 08:00 Room Air 02/19/25 08:00 Room Air 02/19/25 07:00 Room Air 02/19/25 05:00 Room Air 02/19/25 04:00 02/19/25 04:00 Room Air 02/19/25 03:00 Room Air 02/19/25 01:00 Nasal Cannula 02/19/25 00:00 02/18/25 23:00 Room Air 02/18/25 22:45 02/18/25 22:00 Room Air 02/18/25 21:26 Room Air 02/18/25 21:00 Room Air 02/18/25 21:00 02/18/25 20:55 Room Air 02/18/25 20:51 Room Air 02/18/25 20:30 Room Air 02/18/25 20:00 02/18/25 20:00 02/18/25 19:34 02/18/25 19:18 02/18/25 17:51 Room Air Intake and Output 02/18/25 02/19/25 02/19/25 23:59 07:59 15:59 Intake Total 0 / 360 360 / 360 Output Total 651 / 1651 2500 / 2500 Balance -651 / -1651 -2500 / -2140 360 / -2140 Intake: Intake, Oral Amount 0 / 360 360 / 360 Output: Output, Urine Amount 650 / 1650 2500 / 2500 Output, Urine Amount (Catheter) Benjamin Other: Number of Unmeasured Voids 0 0 Weight 80.739 kg 83.37 kg Patient Weight 02/19/25 23:59 Weight 83.37 kg Laboratory Results - last 24 hr 02/18/25 17:47: WBC 4.2 L, RBC 4.13 L, Hgb 11.9 L, Hct 33.5 L, MCV 81.1, MCH 28.8, MCHC 35.5 H, RDW 15.3, Plt Count 169, MPV 10.5 H, Neut % (Auto) 57.1, Lymph % (Auto) 22.1, [place] % (Auto) 19.7 H, Eos % (Auto) 0.7, Baso % (Auto) 0.2, Neut # (Auto) 2.4, Lymph # (Auto) 0.9, [place] # (Auto) 0.8, Eos # (Auto) 0.0, Baso # (Auto) 0.0, PT 13.1 H, INR 1.20 H, Sodium 134 L, Potassium 4.8, Chloride 103, Carbon Dioxide 28, Anion Gap 7.8, BUN 16, Creatinine 1.00, Estimated Creat Clear 57, Estimated GFR 70, Est GFR ( Amer) 85, Glucose 111 H, Calcium 8.9, Magnesium 1.9, Total Bilirubin 0.9, AST 63 H, ALT 96 H, Alkaline Phosphatase 12 3, Troponin I 0.03, NT-Pro-B Natriuret Pep 61869 H, Total Protein 7.0, Albumin 3.8, Globulin 3.2, Albumin/Globulin Ratio 1.2, Lipase 35, Plasma/Serum Alcohol < 10 02/18/25 19:15: Ammonia < 9 L 02/18/25 19:35: Lactate 1.8 02/18/25 20:20: Urine Color Yellow, Urine Appearance Clear, Urine pH 6.5, Ur Specific [place] 1.015, Urine Protein Trace, Urine Glucose (UA) Negative, Urine Ketones Negative, Urine Blood Negative, Urine Nitrate Negative, Urine Bilirubin Negative, Urine Urobilinogen 0.2, Ur Leukocyte Esterase Negative, Urine RBC None, Urine WBC 5-10, Ur Squamous Epith Cells None, Urine Bacteria 1+, Urine Mucus 1+, Urine Opiates Screen Negative, Urine Methadone Screen Negative, Ur Barbituates Screen Negative, Ur Phencyclidine Scrn Negative, Ur Amphetamines Screen Negative, U Benzodiazepines Scrn Negative, Urine Cocaine Screen Negative, U Marijuana (THC) Screen Negative 02/18/25 21:08: Troponin I 0.03 02/18/25 22:23: Urine Color Yellow, Urine Appearance Clear, Urine pH 6.0, Ur Specific [place] <= 1.005, Urine Protein Negative, Urine Glucose (UA) Negative, Urine Ketones Negative, Urine Blood Trace-i, Urine Nitrate Negative, Urine Bilirubin Negative, Urine Urobilinogen 0.2, Ur Leukocyte Esterase Negative, Urine RBC 3-5 02/19/25 00:27: Troponin I 0.04 H 02/19/25 05:56: WBC 4.4 L, RBC 4.40 L, Hgb 12.4 L, Hct 34.9 L, MCV 79.3 L, MCH 28.2, MCHC 35.5 H, RDW 14.7, Plt Count 153, MPV 9.8, Neut % (Auto) 51.6, Lymph % (Auto) 27.0, [place] % (Auto) 20.5 H, Eos % (Auto) 0.2, Baso % (Auto) 0.5, Neut # (Auto) 2.3, Lymph # (Auto) 1.2, [place] # (Auto) 0.9, Eos # (Auto) 0.0, Baso # (Auto) 0.0, Sodium 137, Potassium 4.1, Chloride 100, Carbon Dioxide 30, Anion Gap 11.1, BUN 16, Creatinine 1.10, Estimated Creat Clear 54, Estimated GFR 63, Est GFR ( Amer) 76, Glucose 103 H, Calcium 8.6, Total Bilirubin 1.2, AST 61 H, ALT 95 H, Alkaline Phosphatase 152 H, Total Protein 6.5, Albumin 4.2 D, Globulin 2.3, Albumin/Globulin Ratio 1.8 I & O for Labs for Last 24 Hours: Intake & Output 02/16/25 02/17/25 02/18/25 02/19/25 23:59 22:59 23:59 23:59 Intake Total 360 / 360 Output Total 651 / 1651 2500 / 2500 Balance -651 / -1651 -2140 / -2140 Weight 80.739 kg 83.37 kg Constitutional: Present no acute distress, cachectic, chronically ill appearing and cooperative Head: Present atraumatic Eyes: Present as per HPI ENT: Present normal exam Neck: Present normal inspection Respiratory: Present diminished air movement and normal respiratory effort; Absent wheezes Cardiac: Present Irregularly Regular and Tachycardia GI: Present soft; Absent distention or tenderness Rectal (male): Present deferred (male): Present normal inspection and deferred Comment:: Benjamin catheter in place Extremities: Present normal inspection; Absent tenderness or edema Skin: Present intact and dry Neuro: Present Weakness, awake and oriented x 3 Assessment and Plan *Assessment and plan (1) Acute exacerbation of CHF (congestive heart failure): Status: Acute Category: Medical Code(s): I50.9 - Heart failure, unspecified (2) Acute on chronic HFrEF (heart failure with reduced ejection fraction): Status: Acute Category: Medical Code(s): I50.23 - Acute on chronic systolic (congestive) heart failure (3) Moderate to severe mitral regurgitation: Status: Acute Category: Medical Code(s): I34.0 - Nonrheumatic mitral (valve) insufficiency (4) Anasarca: Status: Acute Category: Medical Code(s): R60.1 - Generalized edema (5) Chronic anticoagulation: Status: Acute Category: Medical Code(s): Z79.01 - USP (current) use of anticoagulants (6) Paroxysmal A-fib: Status: Acute Category: Medical Code(s): I48.0 - Paroxysmal atrial fibrillation (7) Severe left ventricular systolic dysfunction (LVSD): Status: Acute Category: Medical Code(s): I51.89 - Other ill-defined heart diseases (8) Urinary retention: Status: Acute Category: Medical Code(s): R33.9 - Retention of urine, unspecified (9) BPH (benign prostatic hyperplasia): Status: Acute Category: Medical Code(s): N40.0 - Benign prostatic hyperplasia without lower urinary tract symptoms (10) Altered mental status: Status: Acute Qualifiers: Altered mental status type: disorientation Qualified Code(s): R41.0 - Disorientation, unspecified Category: Medical Code(s): R41.82 - Altered mental status, unspecified Plan Mr. Burnham is an 89-year-old male with a significant medical history of dementia, prior TIA/CVA, HFrEF with a EF of approximately 20%, BPH with urinary retention, paroxysmal A-fib on chronic anticoagulation with Eliquis, history of pulmonary embolism, and severe left ventricular systolic dysfunction. He was brought to the emergency room via EMS after his caregiver called due to progressive weakness. Patient's caregiver stated he has been weaker than normal and has noticed lower extremity swelling. Workup in the emergency department was significant for a BNP of 15,900, elevated LFTs AST 63, ALT 96, CT abdomen/pelvis showed moderate left pleural effusion, mild anasarca. Additionally patient caregiver states that patient has been more confused than normal and is having trouble with urinary retention. Hospital medicine was consulted for admission due to the above findings, plan of care as follows: #HFrEF exacerbation #Elevated BNP #Anasarca ? Patient was initially given Lasix 80 mg IV in the ED, Lasix 40 mg twice daily ordered. Benjamin catheter in place for urinary retention and accurate CUCA. Patient currently has diuresed 3.5 L since admission. Patient had 2D echo obtained 12/2024 which showed a ejection fraction of approximately 20-25%, akinesis of septal, atrial septal, inferior septal LV agarwal, moderate to severe MR, elevated RVSP at 50-55. Patient at the time was not a candidate for LifeVest due to dementia/AMS. ?Cardiology consulted, holding metoprolol due to acute exacerbation, continue IV diuretics, ARB, Aldactone. Troponin was very mildly elevated 0.04, likely secondary to CHF. ?Waiting on patient's home medication to be reconciled. Will start Eliquis 5 mg twice daily, finasteride 5 mg daily, losartan 50 mg daily, spironolactone 25 mg daily, and tamsulosin 0.8 mg at bedtime. ?Per patient and caregiver, patient unknown medication compliance. ?Lengthy discussion with social worker assistant, Tawana Wan, in regard to placement at discharge. Patient at this time is agreeable to possible placement. PT/OT evaluated patient and are recommending rehab facility at discharge. Spoke with patient's daughter, POA, and caregiver who are all in agreements that patient could go to placement if covered by insurance at discharge. #Paroxysmal A-fib ? Patient has been in A-fib since admission, heart rate around 100 bpm. Home medication restarted as above. Continuous cardiac telemetry. #Dementia/altered mental status ? Patient reportedly was agitated on admission, seems alert and oriented during assessment today. No agitation noted patient is cooperative. Per caregiver patient confusion and agitation are intermittent. #BPH/urinary retention ? Per patient and caregiver patient has had increased urinary retention. Patient has known BPH and takes finasteride and tamsulosin daily. Unknown medication compliance. Benjamin catheter was placed on admission after bladder scan revealed over 600 mL of urine in the bladder. Patient should follow with urology after discharge. May need chronic Benjamin. VTE?Eliquis Up with assistance Regular diet
--- NOTE | 2025-02-19 10:52 | SW/DCPLANNER ---
Addendum entered by Stephany Islas 02/20/25 12:52: Patient has [facility] as his home health provider. Addendum entered by Tawana Wan 02/20/25 11:18: Patient will discharge home today w/ 24-7 care and resume home health services. Addendum entered by Tawana Wan 02/20/25 09:46: I spoke w/ patient's daughter this AM. She prefer patient return home w/ 24-7 sitters (already established) and resume home health services thru the [place]. Daughter will contact [facility] at time of discharge. I will also discuss this plan w/ patient. Patient did show improvement w/ PT/OT this AM. Discharge date is unknown at this time. CM will continue to follow up. Addendum entered by Tawana Wan 02/20/25 09:20: Per [place] w/ [place] patient does not have SNF benefits. I have attempted to contact daughter x 2 w/ no answer. During my discussion w/ daughter and patient yesterday they were not open to private pay placement and preferred to return home w/ home health and 24-7 sitters. CM will continue to follow up. [place] date is unknown at this time. Addendum entered by Tawana Wan 02/19/25 11:40: I am waiting on a call back from [place] regarding SNF benefits. Original Note: I spoke w/ patient, daughter (via phone) and caregiver this AM regarding plans once medically stable for discharge. PT/OT evaluated patient and recommended SNF level of care. Patient is somewhat agreeable to placement at this time but NOT agreeable to [facility] due to being there in the past. [facility], [facility] do not have beds open at this time. I will fax patient information to [facility], [facility], [facility] and [facility] this AM. I also informed patient/daughter that I will investigate if [place] will cover SNF and follow up. Per daughter if SNF is not covered under insurance she and patient prefer to return home w/ home health services and resuming 24-7 sitters that patient already has set up. CM will continue to follow up.
--- NOTE | 2025-02-19 11:40 | HMH.PTEV ---
Physical Therapy Evaluation Rehab PT IP Evaluation Start: 02/19/25 04:49 Freq: ONCE Status: Active Protocol: Document 02/19/25 09:22 SIVAN (Rec: 02/19/25 09:25 SIVAN [id number]) Subjective/History History History Per H&P: Patient is a 89-year-old male with a past medical history significant for dementia, prior TIA/CVA , HFrEF, BPH, chronic anticoagulation with Eliquis. Presents to [facility] generalized weakness and lower extremity swelling. History provided per staff and chart review as patient is a poor historian. It was noted patient arrived per EMS they concerned his neighbor reporting patient has had progressive weakness. Patient caregiver reported patient having chest congestion with a notable increase in lower extremity swelling. Caregiver also reported his confusion is consistent with his baseline. Also there was concern of a possible fall. CT head obtained for reassurance due to chronic anticoagulation. Chest x-ray obtained in the emergency department consistent with small bilateral pleural effusions. CT imaging abdomen and pelvis suggestive of moderate right and small left pleural effusion, mild anasarca. Patient received IV Lasix 80 mg while in the emergency department. Upon assessment at bedside he is resting comfortably in bed. Nontoxic-appearing. Hemodynamically stable, room air. Subjective Subjective Prior to being in the hospital, pt reports he lived alone at home. Pt claims normally he was independent with all ADLs and IADLs. He did use a rolling walker during functional transfers and household ambulation. Pt also claims he was still driving. [facility] How much help from another person do you currently need... Turning from your A little back to your side while in a flat bed without using bedrails? Moving from lying on A little back to sitting on the side of a flat bed without using bedrails? Moving to and from a A lot bed to a chair ( including a wheelchair)? Standing up from a A lot chair using your arms? (e.g., wheelchair, bedside chair) Walking in hospital A lot room? Climbing 3-5 steps A lot with a railing? Mobility Score 14 Mobility Level [facility] Mobility 4 Move to chair/commode Mobility Calculator Rehab PT IP Eval Objective Appearance Patient Behavior Appropriate,Cooperative Patient Orientation Person Difficulty following none instructions Ambulation Patient Able to No Ambulate Balance Ability to Arise Able, uses arms to help Sitting Balance Steady, safe Standing Balance Unsteady Dynamic Sitting Good Balance Ability Dynamic Standing Poor Balance Ability Transfers Bed Transfer Ability Moderate x 1 (50% assist) Sit to Stand Bed Moderate x 2 (50% assist) Transfer Ability Rehab PT IP prob,goals,plan Problems Date of Evaluation: 02/19/25 PT IP Problems Bed Mobility,Transfers,Gait,Balance,Self care,Safety Rehab Potential Rehab Potential Good Plan PT Intervention Plan Bed Mobility,Transfers,Gait,Balance,Self care,Safety, Therapeutic Exercise Other Intervention 1-2 times Plan PT Plan Frequency Daily Duration LOS Discharge Goals Bed Transfer Ability Minimal x 1 (25% assist) Sit to Stand Chair Minimal x 1 (25% assist) Transfer Ability Discharge Plan PT Discharge Plan Pt most appropriate for skilled inpatient rehabilitation upon d/c from [facility] to address deficits and maximize safety with mobility. Pt would benefit from skilled acute care PT while at [facility] to address deficits and prevent further functional decline. Eval Complexity Eval Charge Codes 11413 - Moderate Complexity PHYSICIAN CERTIFICATION: I certify the specified therapy services for Oumar Burnham are required, authorized, and reviewed every 30 days.
--- NOTE | 2025-02-19 13:21 | EXP.CARD.CON ---
History of Present Illness History of Present Illness Consult date: 02/19/25 Requesting physician: Anthony Farrell Consult reason: congestive heart failure and shortness of breath Chief complaint: SOA Additional Medical History:: 1. Hypertension 2. Hyperlipidemia 3. Remote CVA with confusion/dementia -head CT, 02/18/2025, no acute intracranial abnormality 4. 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 Moderate to severe MR on echo, 12/2024 6. History of pulmonary embolus, superior segment right lower lobe, CTA chest, 11/29/2024 -Started on Eliquis 7. History of COVID, 12/2024 History of present illness: Patient is a 89-year-old male with a past medical history significant for dementia, prior TIA/CVA, HFrEF, BPH, chronic anticoagulation with Eliquis. Presents to [facility] generalized weakness and lower extremity swelling. History provided per staff and chart review as patient is a poor historian. It was noted patient arrived per EMS they concerned his neighbor reporting patient has had progressive weakness. Patient caregiver reported patient having chest congestion with a notable increase in lower extremity swelling. Caregiver also reported his confusion is consistent with his baseline. Also there was concern of a possible fall. CT head obtained for reassurance due to chronic anticoagulation. Chest x-ray obtained in the emergency department consistent with small bilateral pleural effusions. CT imaging abdomen and pelvis suggestive of moderate right and small left pleural effusion, mild anasarca. Patient received IV Lasix 80 mg while in the emergency department. Upon assessment at bedside he is resting comfortably in bed. Nontoxic-appearing. Hemodynamically stable, room air. Initial ED workup included laboratory studies and imaging. WBC 4.2, INR 1.20, sodium 134, AST 63, ALT 96, ammonia level less than 9, BNP 15,900. Chest x-ray obtained personally reviewed, revealing small bilateral pleural effusions. CT head without any acute finding. CT abdomen and pelvis with finding of moderate right and small left pleural effusion, mild anasarca. The above per Janell Da Silva APRN for the Hospitalist service. Patient unable to provide any adequate history. He is sitting up in bed, unclothed in no acute distress. Denies any chest pain, pressure or tightness. [facility] Disclaimer: The information contained in this section may have been updated after the patient was seen, as this information can be updated by other users. Medical History Pneumonia due to COVID-19 virus Pleural effusion, bilateral Pneumonia Cardiomyopathy Severe left ventricular systolic dysfunction (LVSD) Hyperlipidemia Hypertension Non-STEMI (non-ST elevated myocardial infarction) UTI (urinary tract infection) BPH (benign prostatic hyperplasia) Family History Other Heart failure Hypertension Stroke Social History (Updated 02/19/25 @ 04:21 by Radha Ramon RN) Smoking Status: Never smoker alcohol intake: former substance use type: denies use current occupational status: retired and other Travel in the last 8 weeks?: None household members: none housing: apartment Have you lived/traveled outside [place] in past 30 days?: No Contact w/someone who lives/traveled outside [place] past 30 days?: No Exposure to someone with infectious disease in past 14 days?: No Do you have a fever (greater than 100.4 F or 38 C)?: No Have you tested positive for COVID-19?: No Exposed to someone with COVID-19 in past 14 days?: No Do you have a sore throat?: No Do you have a cough?: No Do you have any weakness?: No Are you experiencing any nausea/vomitting?: No Do you have any diarrhea?: No Are you experiencing any unusual bleeding?: No Do you have any muscle aches/pain?: No Do you have any abdominal pain?: No Are you experiencing loss of taste or smell?: No Review of Systems Review of Systems Review of systems:: pertinent systems reviewed and negative unless documented below *Cardiovascular Cardiovascular: Reports dyspnea *Respiratory Respiratory: Reports dyspnea *Neurologic Neurologic: Reports as per HPI Exam Data for Last 24 hours Vital signs and Labs for Last 24 Hours: Temp Pulse Resp BP Pulse Ox O2 Del Method 98.1 F 82 20 149/84 H 96 Room Air 02/19/25 12:00 02/19/25 12:00 02/19/25 12:00 02/19/25 12:00 02/19/25 12:00 02/19/25 12:00 Laboratory Results - last 24 hr 02/18/25 17:47: WBC 4.2 L, RBC 4.13 L, Hgb 11.9 L, Hct 33.5 L, MCV 81.1, MCH 28.8, MCHC 35.5 H, RDW 15.3, Plt Count 169, MPV 10.5 H, Neut % (Auto) 57.1, Lymph % (Auto) 22.1, [place] % (Auto) 19.7 H, Eos % (Auto) 0.7, Baso % (Auto) 0.2, Neut # (Auto) 2.4, Lymph # (Auto) 0.9, [place] # (Auto) 0.8, Eos # (Auto) 0.0, Baso # (Auto) 0.0, PT 13.1 H, INR 1.20 H, Sodium 134 L, Potassium 4.8, Chloride 103, Carbon Dioxide 28, Anion Gap 7.8, BUN 16, Creatinine 1.00, Estimated Creat Clear 57, Estimated GFR 70, Est GFR ( Amer) 85, Glucose 111 H, Calcium 8.9, Magnesium 1.9, Total Bilirubin 0.9, AST 63 H, ALT 96 H, Alkaline Phosphatase 123, Troponin I 0.03, NT-Pro-B Natriuret Pep 31539 H, Total Protein 7.0, Albumin 3.8, Globulin 3.2, Albumin/Globulin Ratio 1.2, Lipase 35, Plasma/Serum Alcohol < 10 02/18/25 19:15: Ammonia < 9 L 02/18/25 19:35: Lactate 1.8 02/18/25 20:20: Urine Color Yellow, Urine Appearance Clear, Urine pH 6.5, Ur Specific [place] 1.015, Urine Protein Trace, Urine Glucose (UA) Negative, Urine Ketones Negative, Urine Blood Negative, Urine Nitrate Negative, Urine Bilirubin Negative, Urine Urobilinogen 0.2, Ur Leukocyte Esterase Negative, Urine RBC None, Urine WBC 5-10, Ur Squamous Epith Cells None, Urine Bacteria 1+, Urine Mucus 1+, Urine Opiates Screen Negative, Urine Methadone Screen Negative, Ur Barbituates Screen Negative, Ur Phencyclidine Scrn Negative, Ur Amphetamines Screen Negative, U Benzodiazepines Scrn Negative, Urine Cocaine Screen Negative, U Marijuana (THC) Screen Negative 02/18/25 21:08: Troponin I 0.03 02/18/25 22:23: Urine Color Yellow, Urine Appearance Clear, Urine pH 6.0, Ur Specific [place] <= 1.005, Urine Protein Negative, Urine Glucose (UA) Negative, Urine Ketones Negative, Urine Blood Trace-i, Urine Nitrate Negative, Urine Bilirubin Negative, Urine Urobilinogen 0.2, Ur Leukocyte Esterase Negative, Urine RBC 3-5 02/19/25 00:27: Troponin I 0.04 H 02/19/25 05:56: WBC 4.4 L, RBC 4.40 L, Hgb 12.4 L, Hct 34.9 L, MCV 79.3 L, MCH 28.2, MCHC 35.5 H, RDW 14.7, Plt Count 153, MPV 9.8, Neut % (Auto) 51.6, Lymph % (Auto) 27.0, [place] % (Auto) 20.5 H, Eos % (Auto) 0.2, Baso % (Auto) 0.5, Neut # (Auto) 2.3, Lymph # (Auto) 1.2, [place] # (Auto) 0.9, Eos # (Auto) 0.0, Baso # (Auto) 0.0, Sodium 137, Potassium 4.1, Chloride 100, Carbon Dioxide 30, Anion Gap 11.1, BUN 16, Creatinine 1.10, Estimated Creat Clear 54, Estimated GFR 63, Est GFR ( Amer) 76, Glucose 103 H, Calcium 8.6, Total Bilirubin 1.2, AST 61 H, ALT 95 H, Alkaline Phosphatase 152 H, Total Protein 6.5, Albumin 4.2 D, Globulin 2.3, Albumin/Globulin Ratio 1.8 I & O for Last 24 hours: Intake & Output 02/17/25 02/18/25 02/19/25 02/20/25 10:59 11:59 11:59 11:59 Intake Total 360 / 360 240 / 240 Output Total 3701 / 3701 Balance -3341 / -3341 240 / 240 Weight 183 lb 12.8 oz Constitutional Constitutional: no acute distress *Routine Respiratory Exam Respiratory: Present decreased breath sounds, rhonchi and crackles *Routine Cardiovascular Exam Cardiovascular: Present RRR and murmur; Absent gallop or rubs *Routine Extremities Exam Extremities: Absent edema *Routine Neurological Exam Neurological: Present alert; Absent oriented X3 Meds Home Medications and Allergies Home Medications ?Medication ?Instructions ?Recorded ?Confirmed ?Type calcium 600 mg (as 1 tab PO DAILY 12/28/24 02/19/25 History carbonate)-vitamin D3 5 mcg (200 unit) tablet cetirizine 5 mg tablet 5 mg PO DAILY 12/28/24 02/19/25 History finasteride 5 mg tablet 5 mg PO DAILY 12/28/24 02/19/25 History fluticasone propionate 50 2 spray intranasal HS 12/28/24 02/19/25 History mcg/actuation nasal spray,suspension ipratropium 20 mcg-albuterol 100 1 puff inhalation Q6HP PRN 12/28/24 02/19/25 History mcg/actuation mist for inhalation Shortness Of Breath (Combivent Respimat) losartan 50 mg tablet 50 mg PO DAILY 12/28/24 02/19/25 History melatonin 3 mg tablet 6 mg PO HSP PRN Insomnia 12/28/24 02/19/25 History polyethylene glycol 3350 17 gram 17 g PO DAILY 12/28/24 02/19/25 History oral powder packet (Miralax) sennosides 8.6 mg tablet (senna) 17.2 mg PO BID 12/28/24 02/19/25 History simethicone 80 mg chewable tablet 160 mg PO Q6HP PRN Gas 12/28/24 02/19/25 History tamsulosin 0.4 mg capsule 0.8 mg PO HS 12/28/24 02/19/25 History apixaban 5 mg tablet 5 mg PO BID #30 tabs 01/01/25 02/19/25 Rx diclofenac sodium 1 % topical gel 2 g topical QIDP PRN Pain 02/19/25 02/19/25 History metoprolol succinate 100 mg 50 mg PO DAILY 02/19/25 02/19/25 History tablet,extended release 24 hr (Toprol XL) omeprazole 20 mg capsule,delayed 40 mg PO BID 02/19/25 02/19/25 History release rosuvastatin 10 mg tablet 5 mg PO HS 02/19/25 02/19/25 History New Prescriptions to Start Prescriptions: Allergies Allergy/AdvReac Type Severity Reaction Status Date / Time No Known Allergies Allergy Verified 06/06/24 10:17 Assessment and Plan *Assessment and plan (1) Acute on chronic HFrEF (heart failure with reduced ejection fraction): Status: Acute Category: Medical Code(s): I50.23 - Acute on chronic systolic (congestive) heart failure (2) Paroxysmal A-fib: Status: Acute Category: Medical Code(s): I48.0 - Paroxysmal atrial fibrillation (3) Chronic anticoagulation: Status: Acute Category: Medical Code(s): Z79.01 - [employer] (current) use of anticoagulants (4) Anasarca: Status: Acute Category: Medical Code(s): R60.1 - Generalized edema (5) Dementia: Status: Acute Qualifiers: Dementia behavioral or psychological symptom: unspecified whether behavioral, psychotic, or mood disturbance or anxiety Dementia severity: unspecified severity Dementia type: vascular dementia Qualified Code(s): F01.50 - Vascular dementia, unspecified severity, without behavioral disturbance, psychotic disturbance, mood disturbance, and anxiety Category: Medical Code(s): F03.90 - Unspecified dementia, unspecified severity, without behavioral disturbance, psychotic disturbance, mood disturbance, and anxiety (6) Anemia, chronic disease: Status: Acute Category: Medical Code(s): D63.8 - Anemia in other chronic diseases classified elsewhere (7) Moderate to severe mitral regurgitation: Status: Acute Category: Medical Code(s): I34.0 - Nonrheumatic mitral (valve) insufficiency Plan 1. Acute on chronic HFrEF -Medication compliance unknown -BNP 15,900 -holding metoprolol due to acute exacerbation but resume at discharge -Continue IV diuretic, ARB and aldactone -Mildly elevated troponin at 0.04, likely secondary to CHF -Normal BUN and creatinine 2. Moderate to severe MR by echocardiogram 12/2024 -Continue IV diuretic -Not a surgical candidate due to dementia 3. Remote history of CVA and dementia -no acute process by CT of head this admission 4. Anemia of chronic disease -Hgb around 12 5. History of paroxysmal A-fib -A. fib at 100 bpm on EKG this admission -On oral anticoagulation with Eliquis -Hemoglobin stable around 12 -monitor on telemetry continue IV diuretics until pre-renal. Difficult patient to treat since he does not want to go to assisted living and seems to not take his pills per caregiver. Not a candidate for a procedure if he won't take the meds as prescribed.
[2025-02-19] MEDS: IRBESARTAN 75MG TABLET 75 MG PO (13:52)
[2025-02-19] MEDS: SPIRONOLACTONE 25MG TABLET 25 MG PO (13:52)
[2025-02-19] MEDS: APIXABAN 5MG TABLET 5 MG PO ×2 (13:52→21:02)
--- NOTE | 2025-02-19 17:03 | PC.NURSE ---
pt resting supine in bed with friend at bedside at this time.alert to self only. medications administered per jun. pt able to take pills whole with no coughing or issues. castaneda remains in place draining clear urine. pt has periods of restlessness- calling out, pulling at tele leads and castaneda and throwing legs off of the side of the bed. attempted to reorient pt and educate on need to leave tele and castaneda alone. pt has had a good appetite. pt remains a fib on tele. no complaints of pain. no needs at this time. call light within reach.
[2025-02-19] MEDS: TAMSULOSIN 0.4MG CAPSULE 0.8 MG PO (21:02)
[2025-02-19] MEDS: FINASTERIDE 5MG TABLET 5 MG PO (21:02)
[2025-02-20] VITALS: BP 154/77; PULSE 107; PULSE 110; RESP 16; O2SAT 90
[2025-02-20 04:00] VITALS: BP 132/78; PULSE 113; PULSE 120; RESP 17; TEMP 36.6; O2SAT 96; BMI 30.4
--- NOTE | 2025-02-20 04:20 | PC.NURSE ---
Patient is alert and oriented to self only; he has been consistently disoriented to place, time, and situation. Refused to recall birthday, states I don't know where I am. He was observed to be resting in bed with eyes closed, respirations even and unlabored, and no apparent distress throughout the majority of the night. Refuses to be repositioned in bed, but is able to self-turn at his own leisure. Patient also has sufficient strength to pull himself upright to a sitting position in bed. He has had several tendencies to pull off his telemetry leads, gown, and brief this shift, of which staff has reoriented the patient and fixed these items into place multiple times. Nasal cannula (2 L) was momentarily applied earlier this shift (around 20:00) due to decreased oxygen saturations; the patient removed the nasal cannula prior to midnight vital sign assessments. Oxygen saturation finding was 90% on room air; thus, the patient was weaned back to room air. Oxygen saturations have remained > 90%. Irregular (afib) rhythm on telemetry. Physical assessment performed (see nursing shift biophysical intervention for details); no acute changes from initial assessment noted thus far. Loose cough exhibited. Mild swelling (+1) noted to bilateral lower extremities. Benjamin catheter remains intact; urine output measured/documented accordingly. Incontinent of bowel. Consumed chocolate ice cream this morning without difficulty. Scheduled medications administered per JUN. Patient has not had any complaints this shift. At this time, he remains resting in bed. Bed alarm on. Call light within reach.
[2025-02-20] MEDS: PHENOL THROAT SPRAY 177 ML BOTTLE MM (04:55)
[2025-02-20 07:43] VITALS: BP 159/89; PULSE 124; RESP 22; TEMP 36.7; O2SAT 95
[2025-02-20 08:00] VITALS: PULSE 90
[2025-02-20] MEDS: IRBESARTAN 75MG TABLET 75 MG PO (08:13)
[2025-02-20] MEDS: SPIRONOLACTONE 25MG TABLET 25 MG PO (08:13)
[2025-02-20] MEDS: APIXABAN 5MG TABLET 5 MG PO (08:13)
[2025-02-20] MEDS: FUROSEMIDE 40MG/4ML VIAL 40 MG IV (08:14)
[2025-02-20 09:08] LABS: Hematocrit 34.1 % (42.0-52.0); Hemoglobin 12.1 g/dL (14.1-18.0); Immature Granulocytes % 0.1 %; Mean Corpuscular HGB Conc 35.5 g/dL (31.8-35.4); Mean Corpuscular Hemoglobin 28.5 pg (27.0-31.2); Mean Corpuscular Volume 80.4 fl (80-94); Nucleated Red Blood Cells % 0 %; Platelet Count 146 K/mm3 (142-424); Red Blood Count 4.24 M/mm3 (4.60-6.20); Red Cell Distribution Width-SD 44.2 fL; White Blood Count 6.7 K/mm3 (4.8-10.8)
[2025-02-20] MEDS: PANTOPRAZOLE 40MG TABLET 40 MG PO (09:19)
[2025-02-20] MEDS: SENNA 8.6MG TABLET 17.2 MG PO (09:19)
[2025-02-20] MEDS: METOPROLOL SUCCINATE XL 50MG TABLET 50 MG PO (09:19)
--- NOTE | 2025-02-20 09:23 | P.DS_ITS ---
<Statement entered by Clark Butt MD - 02/23/25 14:18> Agree with the plan of care as outlined by the HEATING AND COOLING SYSTEMS ENGINEER. General Admission date:: 02/18/25 Discharge date: 02/20/25 HPI HPI HPI: Patient is a 89-year-old male with a past medical history significant for dementia, prior TIA/CVA, HFrEF, BPH, chronic anticoagulation with Eliquis. Presents to [facility] generalized weakness and lower extremity swelling. History provided per staff and chart review as patient is a poor historian. It was noted patient arrived per EMS they concerned his neighbor reporting patient has had progressive weakness. Patient caregiver reported patient having chest congestion with a notable increase in lower extremity swelling. Caregiver also reported his confusion is consistent with his baseline. Also there was concern of a possible fall. CT head obtained for reassurance due to chronic anticoagulation. Chest x-ray obtained in the emergency department consistent with small bilateral pleural effusions. CT imaging abdomen and pelvis suggestive of moderate right and small left pleural effusion, mild anasarca. Patient received IV Lasix 80 mg while in the emergency department. Upon assessment at bedside he is resting comfortably in bed. Nontoxic-appearing. Hemodynamically stable, room air. Initial ED workup included laboratory studies and imaging. WBC 4.2, INR 1.20, sodium 134, AST 63, ALT 96, ammonia level less than 9, BNP 15,900. Chest x-ray obtained personally reviewed, revealing small bilateral pleural effusions. CT head without any acute finding. CT abdomen and pelvis with finding of moderate right and small left pleural effusion, mild anasarca. Hospital Course Hospital Course Hospital Course: Mr. Burnham is an 89-year-old male with a significant medical history of dementia, prior TIA/CVA, HFrEF with a EF of approximately 20%, BPH with urinary retention, paroxysmal A-fib on chronic anticoagulation with Eliquis, history of pulmonary embolism, and severe left ventricular systolic dysfunction. He was brought to the emergency room via EMS after his caregiver called due to progressive weakness. Patient's caregiver stated he has been weaker than normal and has noticed lower extremity swelling. Workup in the emergency department was significant for a BNP of 15,900, elevated LFTs AST 63, ALT 96, CT abdomen/pelvis showed moderate left pleural effusion, mild anasarca. Additionally patient caregiver states that patient has been more confused than normal and is having trouble with urinary retention. Hospital medicine was consulted for admission due to the above findings, plan of care as follows: #HFrEF exacerbation #Elevated BNP #Anasarca ? Patient was initially given Lasix 80 mg IV in the ED, Lasix 40 mg twice daily ordered. Benjamin catheter in place for urinary retention and accurate CUAC. Patient has diuresed greater than 6 L over the past 48 hours. Patient had 2D echo obtained 12/2024 which showed a ejection fraction of approximately 20-25%, akinesis of septal, atrial septal, inferior septal LV agarwal, moderate to severe MR, elevated RVSP at 50-55. Patient at the time was not a candidate for LifeVest due to dementia/AMS. ?Cardiology consulted, recommend continuing home cardiac medications of: Lasix 40 mg daily, spironolactone 25 mg daily, Eliquis 5 mg twice daily, losartan 50 mg daily, metoprolol 50 mg daily, and Lipitor 5 mg daily. Patient previously prescribed spironolactone and Lasix but appears to not have filled the prescriptions. Resent prescriptions to pharmacy and delivered to bedside prior to discharge. ?Lengthy discussion with social work associate, Tawana Wan, in regard to placement at discharge. Patient at this time is agreeable to possible placement. PT/OT evaluated patient and are recommending rehab facility at discharge. Spoke with patient's daughter, POA, and caregiver who are all in agreements that patient could go to placement if covered by insurance at discharge. Ultimately insurance will not cover placement, spoke with daughter who would like patient to return home with the 08/11 care he currently has and home health services. Home all services reordered. Discussed with patient, daughter, caregiver about medication compliance. #Paroxysmal A-fib ? Patient has been in A-fib since admission, heart rate controlled, 90 bpm. Ensure medication compliance for rate control. #Dementia/altered mental status ? Patient reportedly was agitated on admission, patient has been alert to self and situation since admission. Being cooperative with staff. Agreeable to returning home with care and outpatient home health services. #BPH/urinary retention ? Per patient and caregiver patient has had increased urinary retention. Patient has known BPH and takes finasteride and tamsulosin daily. Benjamin catheter was placed upon admission after bladder scan revealed 600 mL urine in the bladder and patient unable to void. Discontinued Benjamin day of discharge and attempted a voiding trial for patient. Patient able to void, incontinently a large amount. Medication compliance also encouraged. Would still encourage patient to follow-up with urology for issues with urinary retention. Total time spent on discharge 32 minutes in counseling, documentation, chart review, and direct care with patient. Exam Data for Last 24 hours Vital signs and Labs for Last 24 Hours: Temp Pulse Resp BP Pulse Ox O2 Del Method O2 Flow Rate 98.1 F 124 H 22 159/89 H 95 Room Air 2 02/20/25 07:43 02/20/25 07:43 02/20/25 07:43 02/20/25 07:43 02/20/25 07:43 02/20/25 08:00 02/19/25 21:00 Laboratory Results - last 24 hr 02/20/25 08:45: WBC 6.7 D, RBC 4.24 L, Hgb 12.1 L, Hct 34.1 L, MCV 80.4, MCH 28.5, MCHC 35.5 H, RDW 15.2, Plt Count 146, MPV 10.2, Neut % (Auto) 66.8, Lymph % (Auto) 14.0, [place] % (Auto) 18.7 H, Eos % (Auto) 0.3, Baso % (Auto) 0.1, Neut # (Auto) 4.5, Lymph # (Auto) 0.9, [place] # (Auto) 1.3 H, Eos # (Auto) 0.0, Baso # (Auto) 0.0 I & O for Last 24 hours: Intake & Output 02/17/25 02/18/25 02/19/25 02/20/25 22:59 23:59 23:59 23:59 Intake Total 850 / 1030 500 / 500 Output Total 651 / 1651 4950 / 5225 375 / 375 Balance -651 / -1651 -4100 / -4195 125 / 125 Weight 80.739 kg 83.37 kg 82.69 kg Constitutional Constitutional: no acute distress, thin and chronically ill appearing *Routine HEENT Exam Head: Present normocephalic Eye: Present EOMI and PERRL ENT: Present mucous membranes moist Comments: edentulous *Routine Neck Exam Neck: Present supple; Absent lymphadenopathy *Routine Respiratory Exam Respiratory: Present CTA bilaterally; Absent respiratory distress, stridor or wheezes *Routine Cardiovascular Exam Cardiovascular: Present RRR *Routine Abdominal Exam Abdominal: Present soft and normoactive bowel sounds; Absent tenderness *Routine Rectal Exam Patient deferred: visual exam *Routine Exam Patient deferred: penile exam *Routine Extremities Exam Extremities: Absent cyanosis, clubbing or edema *Routine Skin Exam Skin: Present intact and warm; Absent rash *Routine Neurological Exam Neurological: Present alert; Absent motor deficit Results Data Completed and Pending Labs on day of discharge: Labs from last 24 hours 02/20/25 08:45 WBC 6.7 D RBC 4.24 L Hgb 12.1 L Hct 34.1 L MCV 80.4 MCH 28.5 MCHC 35.5 H RDW 15.2 Plt Count 146 MPV 10.2 Neut % (Auto) 66.8 Lymph % (Auto) 14.0 [place] % (Auto) 18.7 H Eos % (Auto) 0.3 Baso % (Auto) 0.1 Neut # (Auto) 4.5 Lymph # (Auto) 0.9 [place] # (Auto) 1.3 H Eos # (Auto) 0.0 Baso # (Auto) 0.0 DS: Diagnosis Discharge Diagnosis (1) Acute exacerbation of CHF (congestive heart failure): Status: Acute Code(s): I50.9 - Heart failure, unspecified (2) Acute on chronic HFrEF (heart failure with reduced ejection fraction): Status: Acute Code(s): I50.23 - Acute on chronic systolic (congestive) heart failure (3) Moderate to severe mitral regurgitation: Status: Acute Code(s): I34.0 - Nonrheumatic mitral (valve) insufficiency (4) Anasarca: Status: Acute Code(s): R60.1 - Generalized edema (5) Chronic anticoagulation: Status: Acute Code(s): Z79.01 - longterm (current) use of anticoagulants (6) Paroxysmal A-fib: Status: Acute Code(s): I48.0 - Paroxysmal atrial fibrillation (7) Severe left ventricular systolic dysfunction (LVSD): Status: Acute Code(s): I51.89 - Other ill-defined heart diseases (8) Urinary retention: Status: Acute Code(s): R33.9 - Retention of urine, unspecified (9) BPH (benign prostatic hyperplasia): Status: Acute Code(s): N40.0 - Benign prostatic hyperplasia without lower urinary tract symptoms (10) Altered mental status: Status: Acute Code(s): R41.82 - Altered mental status, unspecified Qualifiers: Altered mental status type: disorientation Qualified Code(s): R41.0 - Disorientation, unspecified (11) Anemia, chronic disease: Status: Acute Code(s): D63.8 - Anemia in other chronic diseases classified elsewhere Meds Home Medications and Allergies Home Medications ?Medication ?Instructions ?Recorded ?Confirmed ?Type calcium 600 mg (as 1 tab PO DAILY 12/28/2408/10 History carbonate)-vitamin D3 5 mcg (200 unit) tablet cetirizine 5 mg tablet 5 mg PO DAILY 12/28/2402/19 History finasteride 5 mg tablet 5 mg PO DAILY 12/28/2402/19 History fluticasone propionate 50 2 spray intranasal HS 02/19/25 History mcg/actuation nasal spray,suspension ipratropium 20 mcg-albuterol 100 1 puff inhalation Q6H P PRN 12/28/24 02/19/25 History mcg/actuation mist for inhalation Shortness Of Breath (Combivent Respimat) losartan 50 mg tablet 50 mg PO DAILY 12/28/2408/10 History melatonin 3 mg tablet 6 mg PO HSP PRN Insomnia 04/1102/19/25 History polyethylene glycol 3350 17 gram 17 g PO DAILY 5 02/19/25 History oral powder packet (Miralax) sennosides 8.6 mg tablet (senna) 17.2 mg PO BID 02/19/25 History simethicone 80 mg chewable tablet 160 mg PO Q6HP PRN G as 12/28/24 02/19/25 History tamsulosin 0.4 mg capsule 0.8 mg PO HS 12/28/24 History apixaban 5 mg tablet 5 mg PO BID #30 tabs 5 02/19/25 Rx diclofenac sodium 1 % topical gel 2 g topical QIDP PRN Pain 02/19/25 02/19/25 History metoprolol succinate 100 mg 50 mg PO DAILY 02/19/25 History tablet,extended release 24 hr (Toprol XL) omeprazole 20 mg capsule,delayed 40 mg PO BID 02/19/25 02/19/25 History release rosuvastatin 10 mg tablet 5 mg PO HS 02/19/25 02/19/25 History furosemide 40 mg tablet (Lasix) 40 mg PO DAILY #30 tab s 02/20/25 Rx spironolactone 25 mg tablet 25 mg PO DAILY 30 days #30 tabs 02/20/25 Rx New Prescriptions to Start Prescriptions: furosemide [Lasix] Jenny Cardenas spironolactone Jenny Cardenas Allergies Allergy/AdvReac Type Severity Reaction Status Date / Time No Known Allergies Allergy Verified 06/06/24 10:17 Discharge Plan Disposition Patient Disposition: Home Health Service Condition: Good Discharge Order Discharge Orders: Discharge Order (Routine); Ordered 02/20/25 Ordered By: Jenny Cardenas Follow up Plan Follow up with: Tray Cardenas PA [Physician Online User Experience Strategist, Cardiology] - Enter time for follow up Clark Ding MD [Staff Physician, Urology] - Enter time for follow up Prescriptions/Medication Reconciliation: New spironolactone 25 mg Tablet 25 mg PO DAILY 30 Days Qty: 30 0RF furosemide [Lasix] 40 mg tablet 40 mg PO DAILY Qty: 30 0RF Continued Combivent Respimat 20-100 mcg/actuation Mist 1 puff INHALATION Q6HP PRN (Reason: Shortness Of Breath) losartan 50 mg Tablet 50 mg PO DAILY sennosides [senna] 8.6 mg Tablet 17.2 mg PO BID polyethylene glycol 3350 [Miralax] 17 gram Powder In Packet 17 g PO DAILY cetirizine 5 mg Tablet 5 mg PO DAILY melatonin 3 mg Tablet 6 mg PO HSP PRN (Reason: Insomnia) calcium carbonate-vitamin D3 600 mg-5 mcg (200 unit) Tablet 1 tab PO DAILY tamsulosin 0.4 mg Capsule 0.8 mg PO HS fluticasone propionate 50 mcg/actuation [place],Suspension 2 spray INTRANASAL HS Rx Instructions: administer into each nostril finasteride 5 mg Tablet 5 mg PO DAILY simethicone 80 mg Tablet,Chewable 160 mg PO Q6HP PRN (Reason: Gas ) apixaban 5 mg Tablet 5 mg PO BID Qty: 30 0RF metoprolol succinate [Toprol XL] 100 mg Tablet Extended Release 24 Hr 50 mg PO DAILY omeprazole 20 mg Capsule,Delayed Release(Dr/Ec) 40 mg PO BID rosuvastatin 10 mg Tablet 5 mg PO HS diclofenac sodium 1 % Gel 2 g TOPICAL QIDP PRN (Reason: Pain) Rx Instructions: apply to single elbow, wrist or hand; for hand includes palm/fingers/back of hand Problem Reconciliation Problems Reviewed?: Yes Patient Discharge Instructions ACTIVITY: Continue current activity and Up with assistance DIET: continue same diet Patient Instructions: DI for Heart Failure, DI for Pleural Effusion, Edema, Catheter-Associated Urinary Tract Infection, Stop Light Heart Failure Print Language: Czech Providers Primary Care Provider: Provider,Referral Admit Provider: Anthony Farrell Attending Provider: Anthony Farrell
[2025-02-20 09:25] LABS: Alanine Aminotransferase 75 U/L (12-78); Albumin Level 3.6 g/dl (3.5-5.0); Albumin/Globulin Ratio 1.1 (1.1-1.8); Alkaline Phosphatase 124 U/L (38-126); Anion Gap 12.7 mEq/L (5-15); Aspartate Amino Transferase 54 U/L (17-59); Bilirubin,Total 1.2 mg/dl (0.2-1.3); Blood Urea Nitrogen 24 mg/dl (9-20); Calcium 8.9 mg/dl (8.4-10.2); Carbon Dioxide 26 mmol/L (22.0-30.0); Chloride 99 mmol/L (98-107); Creatinine Clearance Estimated 53 mL/min (50-200); Creatinine,Serum 1.10 mg/dl (0.66-1.25); Estimated Glomerular Filt Rate 63 ml/min (>60); GFR (African American) 76 ML/MIN (>60); Globulin 3.2 g/dL (1.3-3.2); Glucose 101 mg/dl (74-100); Magnesium 1.9 mg/dl (1.6-2.3); Potassium 3.7 mmoL/L (3.5-5.1); Sodium 134 mmol/L (136-145); Total Protein,Serum 6.8 g/dl (6.3-8.2)
--- NOTE | 2025-02-20 09:25 | EXP.CARD.PN ---
Subjective Subjective Date: 02/20/25 Time: 09: Principal diagnosis: CHF Interval history: 89-year-old black male in bed in no acute distress. Initially sleeping with no issues. Patient has diuresed 4-1/2 L overnight Exam Data for Last 24 hours Vital signs and Labs for Last 24 Hours: Temp Pulse Resp BP Pulse Ox O2 Del Method O2 Flow Rate 98.1 F 124 H 22 159/89 H 95 Room Air 2 02/20/25 07:43 02/20/25 07:43 02/20/25 07:43 02/20/25 07:43 02/20/25 07:43 02/20/25 08:00 02/19/25 21:00 Laboratory Results - last 24 hr 02/20/25 08:45: WBC 6.7 D, RBC 4.24 L, Hgb 12.1 L, Hct 34.1 L, MCV 80.4, MCH 28.5, MCHC 35.5 H, RDW 15.2, Plt Count 146, MPV 10.2, Neut % (Auto) 66.8, Lymph % (Auto) 14.0, [place] % (Auto) 18.7 H, Eos % (Auto) 0.3, Baso % (Auto) 0.1, Neut # (Auto) 4.5, Lymph # (Auto) 0.9, [place] # (Auto) 1.3 H, Eos # (Auto) 0.0, Baso # (Auto) 0.0 I & O for Last 24 hours: Intake & Output 02/17/25 02/18/25 02/19/25 02/20/25 10:59 11:59 11:59 11:59 Intake Total 360 / 360 990 / 990 Output Total 3701 / 3701 2275 / 2275 Balance -3341 / -3341 -1285 / -1285 Weight 183 lb 12.8 oz 182 lb 4.8 oz Constitutional Constitutional: no acute distress *Routine Respiratory Exam Respiratory: Present diminished air movement *Routine Cardiovascular Exam Cardiovascular: Present irregularly irregular *Routine Extremities Exam Extremities: Absent edema Progress Note: A&P Assessment and plan (1) Acute exacerbation of CHF (congestive heart failure): Status: Acute (2) Acute on chronic HFrEF (heart failure with reduced ejection fraction): Status: Acute (3) Moderate to severe mitral regurgitation: Status: Acute (4) Anasarca: Status: Acute (5) Chronic anticoagulation: Status: Acute (6) Paroxysmal A-fib: Status: Acute (7) Severe left ventricular systolic dysfunction (LVSD): Status: Acute (8) Urinary retention: Status: Acute (9) BPH (benign prostatic hyperplasia): Status: Acute (10) Altered mental status: Status: Acute (11) Anemia, chronic disease: Status: Acute Assessment and Plan Assessment and Plan for All Diagnoses:: 1. Acute on chronic HFrEF -Medication compliance unknown -BNP 15,900 -holding metoprolol due to acute exacerbation but resume at discharge -Continue IV diuretic, ARB and aldactone -Mildly elevated troponin at 0.04, likely secondary to CHF -Normal BUN and creatinine 2. Moderate to severe MR by echocardiogram 12/2024 -Continue IV diuretic until discharge -Not a surgical candidate due to dementia 3. Remote history of CVA and dementia -no acute process by CT of head this admission 4. Anemia of chronic disease -Hgb around 12 5. History of paroxysmal A-fib -A. fib at 100 bpm on EKG this admission -On oral anticoagulation with Eliquis -Hemoglobin stable around 12 -monitor on telemetry Possible discharge today Medication recommendations: Furosemide 40 mg daily Spironolactone 25 mg daily Apixaban 5 mg twice daily Losartan 50 mg daily Metoprolol succinate 50 mg daily Lipitor 5 mg daily Follow-up in our office in 2 weeks
[2025-02-20 12:00] VITALS: BP 106/78; PULSE 100; PULSE 116; RESP 22; TEMP 36.6; O2SAT 95
[2025-02-20 12:43] LABS: NT Pro Brain Natriuretic Pep. 38800 pg/mL (0-450)
--- NOTE | 2025-02-22 10:52 | SW/DCPLANNER ---
Phoned patient x2. Called both numbers that was listed for the patient. One number was not a working number and the other i left a message with name and call back number each time. [employer]el [employer]
--- OUTSIDE RECORDS SUMMARY | 2025-03-24 19:00 | XMS_ITS | Clinical Summary ---
Author Organization Unknown Care Team Providers Care Pipe Stem Sawyer Name Role Phone EMMA KS, LYSSA Unavailable Unavailable RENETTA PT, BESSY Unavailable Unavailable CHATA LINTER SAW SHARPENER, PAUL Unavailable Unavailable MARK OT, MARIBEL Unavailable Unavailable YUMIKO SW, ADAM Unavailable Unavailable Payers Payer Name Policy Type Policy Number Effective Date Expira tion Date MEDICARE.[facility] [id number] Problems Condition Name Condition Details Condition Category Status Onset Date Resolution Date Last Treatment Date Treating Clinician Comments HYP HRT AND CHR KDNY DIS W HRT FAIL AND STG 1-4/UNSP CHR KDNY Active 2024-04- 00:00: 00 ACUTE ON CHRONIC SYSTOLIC (CONGESTIVE) HEART FAILURE Active 2024-04 0 00:00: 00 CHRONIC DIASTOLIC (CONGESTIVE) HEART FAILURE Active 2024-04 00:00: 00 CHRONIC KIDNEY DISEASE, STAGE 3 UNSPECIFIED Active 2024-04 0 00:00: 00 ANEMIA IN CHRONIC KIDNEY DISEASE Active 2024-04 0- 00:00: 00 UNSPECIFIED ATRIAL FIBRILLATION Active 2024-04 0- 00:00: 00 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 2024-04 0 00:00: 00 UNSPECIFIED CHRONIC BRONCHITIS Active 2024-04 0 00:00: 00 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 2024-04 0- 00:00: 00 UNSPECIFIED OSTEOARTHRIT IS, UNSPECIFIED SITE Active 2024-04 0 00:00: 00 INSOMNIA, UNSPECIFIED Active 2024-04 0- 00:00: 00 OTHER SEASONAL ALLERGIC RHINITIS Active 2024-04 0- 00:00: 00 BENIGN PROSTATIC HYPERPLASIA WITH LOWER URINARY TRACT SYMP Active 2024-04 0- 00:00: 00 OTHER RETENTION OF URINE Active 2024-04 0- 00:00: 00 OTHER OBSTRUCTIVE AND REFLUX UROPATHY Active 2024-04 00:00: 00 ANXIETY DISORDER, UNSPECIFIED Active 2024-04 00:00: 00 SOLITARY PULMONARY NODULE Active 2024-04 00:00: 00 UNSPECIFIED PROTEIN-IDA TATE MALNUTRITION Active 2024-04 00:00: 00 HYPERLIPIDEM IA, UNSPECIFIED Active 2024-04 00:00: 00 GASTRO-ESOPH AGEAL REFLUX DISEASE WITHOUT ESOPHAGITIS Active 2024-04 00:00: 00 CONSTIPATION , UNSPECIFIED Active 2024-04 00:00: 00 SENIOR LIVING (CURRENT) USE OF ANTICOAGULAN TS Active 2024-04 00:00: 00 HORMONE REPLACEMENT THERAPY Active 2024-04 00:00: 00 PRSNL HX OF TIA (TIA), AND CEREB INFRC W/O RESID DEFICITS Active 2024-04 00:00: 00 PERSONAL HISTORY OF URINARY (TRACT) INFECTIONS Active 2024-04 00:00: 00 Allergies, Adverse Reactions, Alerts Allergy Name Allergy Type Status Severity Reaction(s) Onset Date Inactive Date Treating Clinician Comments BENAZEPRIL Propensity to adverse reactions Active 2024-04 10:42: 55 LOVASTATIN Propensity to adverse reactions Active 2024-04 10:43: 04 Medications Ordered Medication Name Filled Medication Name Start Date Stop Date Current Medication? Ordering Clinician Indication Dosage Frequency Signature (SIG) Comments Components acetaminoph en 325 mg tablet 08-09 00:00: 00 12-18 23:59 :00 No [id number] PAIN 2 tablet 3 TIMES DAILY 2 tablet 3 TIMES DAILY (route: oral) Med Classific ation: Analgesic , Anti-infl ammatory or Antipyret ic amlodipine 5 mg tablet 24 00:00: 00 12-18 23:59 :00 No [id number] BLOOD PRESSURE 1 tablet DAILY 1 tablet DAILY (route: oral) Med Classific ation: Cardiovas cular Therapy Agents aspirin 325 mg tablet 24 00:00: 00 12-18 23:59 :00 No [id number] HEART 1 tablet DAILY 1 tablet DAILY (route: oral) Med Classific ation: Analgesic , Anti-infl ammatory or Antipyret ic cetirizine 10 mg tablet 24 00:00: 00 12-18 23:59 :00 No [id number] ALLERGY 0.5 tablet DAILY 0.5 tablet DAILY (route: oral) Med Classific ation: Respirato ry Therapy Agents diltiazem ER 360 mg capsule,24 hr,extended release 08-09 00:00: 00 12-18 23:59 :00 No [id number] BLOOD PRESSURE 1 capsule DAILY 1 capsule DAILY (route: oral) Med Classific ation: Cardiovas cular Therapy Agents finasteride 5 mg tablet 08-09 00:00: 00 12-18 23:59 :00 No [id number] PROSTATE 1 tablet DAILY 1 tablet DAILY (route: oral) Med Classific ation: Genitouri nary Therapy omeprazole 20 mg capsule,del ayed release 08-09 00:00: 00 12-18 23:59 :00 No [id number] STOMACH 2 capsule 2 TIMES DAILY 2 capsule 2 TIMES DAILY (route: oral) Med Classific ation: Gastroint estinal Therapy Agents rosuvastati n 10 mg tablet 08-09 00:00: 00 12-18 23:59 :00 No [id number] CHOLESTEROL 1 tablet BEDTIME 1 tablet BEDTIME (route: oral) Med Classific ation: Cardiovas cular Therapy Agents Senna Laxative 8.6 mg tablet 08-09 00:00: 00 12-18 23:59 :00 No [id number] CONSTIPATIO N 3 tablet DAILY 3 tablet DAILY (route: oral) Med Classific ation: Gastroint estinal Therapy Agents tamsulosin 0.4 mg capsule 24 00:00: 00 12-18 23:59 :00 No [id number] PROSTATE 2 capsule BEDTIME 2 capsule BEDTIME (route: oral) Med Classific ation: Genitouri nary Therapy cetirizine 5 mg tablet 2024-04 0-10 00:00: 00 Yes [id number] ALLERGIES 1 tablet DAILY 1 tablet DAILY (route: oral) Med Classific ation: Respirato ry Therapy Agents Combivent Respimat 20 mcg-100 mcg/actuati on solution for inhalation 2024-04 00:00: 00 Yes [id number] SHORTNESS OF BREATH 1 puff EVERY 6 HOURS 1 puff EVERY 6 HOURS (route: inhalation ) Med Classific ation: Respirato ry Therapy Agents Eliquis 5 mg tablet 2024-04 00:00: 00 Yes [id number] HEART 1 tablet 2 TIMES DAILY 1 tablet 2 TIMES DAILY (route: oral) Med Classific ation: Hematolog ical Agents Entresto 24 mg-26 mg tablet 2024-04 00:00: 00 Yes [id number] HEART 1 tablet 2 TIMES DAILY 1 tablet 2 TIMES DAILY (route: oral) Med Classific ation: Cardiovas cular Therapy Agents finasteride 5 mg tablet 2024-04 00:00: 00 Yes [id number] PROSTATE 1 tablet DAILY 1 tablet DAILY (route: oral) Med Classific ation: Genitouri nary Therapy fluticasone propionate 50 mcg/actuati on nasal spray,suspe nsion 2024-04 00:00: 00 Yes [id number] ALLERGIES 2 spray DAILY 2 spray DAILY (route: nasal) Med Classific ation: Respirato ry Therapy Agents guaifenesin 200 mg tablet 2024-04 00:00: 00 Yes [id number] COUGH 1 tablet EVERY 6 HOURS 1 tablet EVERY 6 HOURS (route: oral) Med Classific ation: Respirato ry Therapy Agents losartan 50 mg tablet 2024-04 00:00: 00 Yes [id number] BLOOD PRESSURE 1 tablet DAILY 1 tablet DAILY (route: oral) Med Classific ation: Cardiovas cular Therapy Agents omeprazole 40 mg capsule,del ayed release 2024-04 00:00: 00 Yes [id number] GERD 1 capsule 2 TIMES DAILY 1 capsule 2 TIMES DAILY (route: oral) Med Classific ation: Gastroint estinal Therapy Agents rosuvastati n 5 mg tablet 2024-04 00:00: 00 Yes [id number] CHOLESTEROL 1 tablet BEDTIME 1 tablet BEDTIME (route: oral) Med Classific ation: Cardiovas cular Therapy Agents sennosides 8.6 mg tablet 2024-04 00:00: 00 Yes [id number] CONSTIPATIO N 1 tablet 2 TIMES DAILY 1 tablet 2 TIMES DAILY (route: oral) Med Classific ation: Gastroint estinal Therapy Agents simethicone 80 mg chewable tablet 2024-04 00:00: 00 Yes [id number] GAS 1 tablet EVERY 6 HOURS 1 tablet EVERY 6 HOURS (route: oral) Med Classific ation: Gastroint estinal Therapy Agents spironolact one 25 mg tablet 2024-04 00:00: 00 Yes [id number] HEART 1 tablet DAILY 1 tablet DAILY (route: oral) Med Classific ation: Cardiovas cular Therapy Agents tamsulosin 0.4 mg capsule 2024-04 00:00: 00 Yes [id number] PROSTATE 1 capsule BEDTIME 1 capsule BEDTIME (route: oral) Med Classific ation: Genitouri nary Therapy Vital Signs Vital Name Observation Time Observation Value Commen ts Temperature 2025-02-16 12:42:00.000 98 [degF] Temperature 2025-02-05 12:48:00.000 98.6 [degF] Temperature 2025-01-31 14:22:00.000 98.6 [degF] Temperature 2025-01-25 14:19:00.000 98.6 [degF] BMI (%) 2025-01-28 10:17:16.000 18 kg/m2 Height 2025-01-28 10:15:34.000 72 [in_us] Pulse 2025-02-16 12:42:00.000 72 /min Pulse 2025-02-07 13:15:00.000 79 /min Pulse 2025-02-05 12:48:00.000 60 /min Pulse 2025-01-31 14:22:00.000 99 /min Pulse 2025-01-25 14:19:00.000 76 /min O2 Saturation (%) 2025-02-16 12:42:00.000 97 % O2 Saturation (%) 2025-02-07 13:15:00.000 97 % O2 Saturation (%) 2025-01-25 14:19:00.000 95 % Respirations 2025-02-16 12:42:00.000 18 /min Respirations 2025-02-07 13:15:00.000 20 /min Respirations 2025-02-05 12:48:00.000 18 /min Respirations 2025-01-31 14:22:00.000 18 /min Respirations 2025-01-25 14:19:00.000 18 /min Weight (lbs) 2025-01-28 10:17:16.000 138 [lb_av] Systolic Blood Pressure 2025-02-16 12:42:00.000 124 mm [Hg] Systolic Blood Pressure 2025-02-07 13:15:00.000 130 mm [Hg] Systolic Blood Pressure 2025-02-05 12:48:00.000 148 mm [Hg] Systolic Blood Pressure 2025-01-31 14:22:00.000 110 mm [Hg] Systolic Blood Pressure 2025-01-25 14:19:00.000 142 mm [Hg] Diastolic Blood Pressure 2025-02-16 12:42:00.000 74 mm [Hg] Diastolic Blood Pressure 2025-02-07 13:15:00.000 66 mm [Hg] Diastolic Blood Pressure 2025-02-05 12:48:00.000 80 mm [Hg] Diastolic Blood Pressure 2025-01-31 14:22:00.000 60 mm [Hg] Diastolic Blood Pressure 2025-01-25 14:19:00.000 82 mm [Hg] Plan of Treatment Planned Activity Planned Date Details Comments Future Scheduled Test AGENCY MAY PERFORM A RESUMPTION OF CARE VISIT FOLLOWING ANY HOSPITAL ADMISSION. PT TO EVALUATE, OBSERVE / ASSESS, AND MONITOR, LINTER SAW SHARPENER TO OBSERVE AND MONITOR, PROVIDE SKILLED THERAPEUTIC INTERVENTION, ACTIVITY, EDUCATION, AND TRAINING TO ADDRESS; [code = AGENCY MAY PERFORM A RESUMPTION OF CARE VISIT FOLLOWING ANY HOSPITAL ADMISSION. PT TO EVALUATE, OBSERVE / ASSESS, AND MONITOR, LINTER SAW SHARPENER TO OBSERVE AND MONITOR, PROVIDE SKILLED THERAPEUTIC INTERVENTION, ACTIVITY, EDUCATION, AND TRAINING TO ADDRESS;] Future Scheduled Test THERAPEUTI C EXERCISES AND ESTABLISHING A HOME EXERCISE PROGRAM (PT/LINTER SAW SHARPENER) [code = THERAPEUTIC EXERCISES AND ESTABLISHING A HOME EXERCISE PROGRAM (PT/LINTER SAW SHARPENER)] Future Scheduled Test PT/LINTER SAW SHARPENER TO PROVIDE GAIT TRAINING FOR IMPROVED MOBILITY AND /OR TO NORMALIZE GAIT PATTERN [code = PT/LINTER SAW SHARPENER TO PROVIDE GAIT TRAINING FOR IMPROVED MOBILITY AND /OR TO NORMALIZE GAIT PATTERN] Future Scheduled Test SIT TO/FRO M STAND TRANSFERS (PT/LINTER SAW SHARPENER) [code = SIT TO/FROM STAND TRANSFERS (PT/LINTER SAW SHARPENER)] Future Scheduled Test NEUROMUSCU LAR RE-EDUCATION / BALANCE / POSTURAL CONTROL (PT) [code = NEUROMUSCULAR RE-EDUCATION / BALANCE / POSTURAL CONTROL (PT)] Future Scheduled Test PT/LINTER SAW SHARPENER TO IDENTIFY FALL RISK FACTORS; EDUCATE THE PATIENT/CAREGIVER ON WAYS TO REDUCE FALL RISK FACTORS AND ESTABLISH HOME EXERCISE PROGRAM TO MINIMIZE FALL RISK. MAY TEACH THE PATIENT FLOOR RECOVERY WHEN CLINICALLY APPROPRIATE [code = PT/LINTER SAW SHARPENER TO IDENTIFY FALL RISK FACTORS; EDUCATE THE PATIENT/CAREGIVER ON WAYS TO REDUCE FALL RISK FACTORS AND ESTABLISH HOME EXERCISE PROGRAM TO MINIMIZE FALL RISK. MAY TEACH THE PATIENT FLOOR RECOVERY WHEN CLINICALLY APPROPRIATE] Future Scheduled Test PT / LINTER SAW SHARPENER T O INSTRUCT PATIENT/CAREGIVER ON RISK FOR HOSPITALIZATION/EMERGENCY ROOM VISITS, TEACH SIGNS AND SYMPTOMS THAT PUT PATIENT AT RISK, WHEN TO NOTIFY NURSE/PHYSICIAN OF COMPLICATIONS/DECLINE, AND WHEN TO CALL 911. [code = PT / LINTER SAW SHARPENER TO INSTRUCT PATIENT/CAREGIVER ON RISK FOR HOSPITALIZATION/EMERGENCY ROOM VISITS, TEACH SIGNS AND SYMPTOMS THAT PUT PATIENT AT RISK, WHEN TO NOTIFY NURSE/PHYSICIAN OF COMPLICATIONS/DECLINE, AND WHEN TO CALL 911.] Future Scheduled Test PT / LINTER SAW SHARPENER T O MONITOR AND EDUCATE ON OXYGEN SATURATION DURING ADLS/IADLS, NOTIFY PHYSICIAN AND/OR THE RN CLINICAL MEDICAL ACCOUNTS RECEIVABLE SPECIALIST FOR PHYSICIAN NOTIFICATION AND IF O2 SATS BELOW PHYSICIAN ORDERED PARAMETERS AFTER 10 MIN OF REST [code = PT / LINTER SAW SHARPENER TO MONITOR AND EDUCATE ON OXYGEN SATURATION DURING ADLS/IADLS, NOTIFY PHYSICIAN AND/OR THE RN CLINICAL MEDICAL ACCOUNTS RECEIVABLE SPECIALIST FOR PHYSICIAN NOTIFICATION AND IF O2 SATS BELOW PHYSICIAN ORDERED PARAMETERS AFTER 10 MIN OF REST] Future Scheduled Test MEDICAL SO CIAL SERVICES FOR COMMUNITY RESOURCE PLANNING. [code = MEDICAL RESERVOIR ENGINEERING CONSULTANT FOR COMMUNITY RESOURCE PLANNING.] Future Scheduled Test AGENCY MAY PERFORM A RESUMPTION OF CARE VISIT FOLLOWING ANY HOSPITAL ADMISSION. OT TO EVALUATE, OBSERVE / ASSESS, AND MONITOR, ELECTRONIC GAME DEVELOPER TO OBSERVE AND MONITOR, PROVIDE SKILLED THERAPEUTIC INTERVENTION, ACTIVITY, EDUCATION, AND TRAINING TO ADDRESS;FUNCTIONAL TRANSFER, ACTIVITY TOLERANCE, BALANCE, BED POSITIONING/MOBILITY, SELF CARE PERFORMANCE ACTIVITIES OF DAILY LIVING (OT/HUAN) BED MOBILITY (OT/HUAN) BED TRANSFERS (OT/HUAN) TOILET TRANSFER (OT/ELECTRONIC GAME DEVELOPER) WHEELCHAIR TRANSFER (OT/ELECTRONIC GAME DEVELOPER) POSTURAL CONTROL/BALANCE (OT/ELECTRONIC GAME DEVELOPER) OT TO ASSESS / HUAN TO MONITOR FOR HEART FAILURE EXACERBATION AND RECORD PATIENT REPORTED WEIGHT, AND NOTIFY THE PHYSICIAN AND/OR THE RN CLINICAL MEDICAL ACCOUNTS RECEIVABLE SPECIALIST FOR PHYSICIAN NOTIFICATION OF HF EXACERBATION (2LB WEIGHT GAIN IN 1 DAY, 5LBS IN A WEEK OR 5 LBS OVER BASELINE; INCREASED SOB, EDEMA, NEEDING MORE PILLOWS AT NIGHT, CRACKLES IN BASIS OF THE LUNGS OR PMI SHIFT). OT/ELECTRONIC GAME DEVELOPER TO INSTRUCT PATIENT/CAREGIVER ON RISK FOR HOSPITALIZATION/EMERGENCY ROOM VISITS, TEACH SIGNS AND SYMPTOMS THAT PUT PATIENT AT RISK, WHEN TO NOTIFY NURSE/PHYSICIAN OF COMPLICATIONS/DECLINE, AND WHEN TO CALL 911. OT/HUAN TO EDUCATE ON ATRIAL FIBRILLATION SELF-MANAGEMENT. [code = AGENCY MAY PERFORM A RESUMPTION OF CARE VISIT FOLLOWING ANY HOSPITAL ADMISSION. OT TO EVALUATE, OBSERVE / ASSESS, AND MONITOR, HUAN TO OBSERVE AND MONITOR, PROVIDE SKILLED THERAPEUTIC INTERVENTION, ACTIVITY, EDUCATION, AND TRAINING TO ADDRESS;FUNCTIONAL TRANSFER, ACTIVITY TOLERANCE, BALANCE, BED POSITIONING/MOBILITY, SELF CARE PERFORMANCE ACTIVITIES OF DAILY LIVING (OT/HUAN) BED MOBILITY (OT/ELECTRONIC GAME DEVELOPER) BED TRANSFERS (OT/ELECTRONIC GAME DEVELOPER) TOILET TRANSFER (OT/HUAN) WHEELCHAIR TRANSFER (OT/ELECTRONIC GAME DEVELOPER) POSTURAL CONTROL/BALANCE (OT/ELECTRONIC GAME DEVELOPER) OT TO ASSESS / ELECTRONIC GAME DEVELOPER TO MONITOR FOR HEART FAILURE EXACERBATION AND RECORD PATIENT REPORTED WEIGHT, AND NOTIFY THE PHYSICIAN AND/OR THE RN CLINICAL MEDICAL ACCOUNTS RECEIVABLE SPECIALIST FOR PHYSICIAN NOTIFICATION OF HF EXACERBATION (2LB WEIGHT GAIN IN 1 DAY, 5LBS IN A WEEK OR 5 LBS OVER BASELINE; INCREASED SOB, EDEMA, NEEDING MORE PILLOWS AT NIGHT, CRACKLES IN BASIS OF THE LUNGS OR PMI SHIFT). OT/HUAN TO INSTRUCT PATIENT/CAREGIVER ON RISK FOR HOSPITALIZATION/EMERGENCY ROOM VISITS, TEACH SIGNS AND SYMPTOMS THAT PUT PATIENT AT RISK, WHEN TO NOTIFY NURSE/PHYSICIAN OF COMPLICATIONS/DECLINE, AND WHEN TO CALL 911. OT/HUAN TO EDUCATE ON ATRIAL FIBRILLATION SELF-MANAGEMENT.] Goal Patient Goal - I NDEPENDENCE WITH FUNCTIONAL ACTIVITIES Goal Provider Goal - Goal Provider Goal - PT STG: PATIENT WILL DEMONSTRATE IMPROVED FUNCTIONAL STRENGTH EVIDENCED BY FIVE TIMES SIT TO STAND TEST (CUT SCORE >12 SECONDS INDICATES AN INCREASED FALL RISK) IMPROVING FROM 50 SECONDS TO LESS THAN OR EQUAL TO 44 SECONDS WITHIN 4 WEEKS IN ORDER TO DECREASE FALL RISK PT LTG: PATIENT WILL DEMONSTRATE IMPROVED FUNCTIONAL STRENGTH EVIDENCED BY FIVE TIMES SIT TO STAND TEST (CUT SCORE >12 SECONDS INDICATES AN INCREASED FALL RISK) IMPROVING FROM 50 SECONDS TO LESS THAN OR EQUAL TO 12 SECONDS WITHIN 8 WEEKS IN ORDER TO DECREASE FALL RISK PT LTG: PATIENT WILL DEMONSTRATE INDEPENDENCE AND COMPLIANCE WITH HEP WITHIN 4 WEEKS Goal Provider Goal - PT STG: PATIENT WILL DEMONSTRATE IMPROVED 6 MINUTE WALK TEST AMBULATION FROM 40 FT MIN TO 150 FT CGA WITH APPROPRIATE AD WITHIN 4 WEEKS. PT LTG: PATIENT WILL DEMONSTRATE IMPROVED 6 MINUTE WALK TEST AMBULATION FROM 40 FT MIN TO 300 FT IND WITH APPROPRIATE AD WITHIN 8 WEEKS. Goal Provider Goal - PT STG: PATIENT WILL DEMONSTRATE IMPROVED ABILITY TO PERFORM SIT TO/FROM STAND TRANSFERS TO REDUCE THE RISK OF SKIN BREAKDOWN AND REDUCE FALL RISK FROM CGA TO IND WITHIN 8 WEEKS Goal Provider Goal - PT LTG: PATIENT WILL DEMONSTRATE REDUCED FALL RISK EVIDENCED BY TUG TEST (CUT SCORE >11 SECONDS INDICATES INCREASED FALL RISK) IMPROVING FROM UNABLE TO LESS THAN OR EQUAL TO 20 SECONDS WITHIN 8 WEEKS Goal Provider Goal - PT LTG: PATIENT/CAREGIVER WILL DEMONSTRATE ADHERENCE TO FALL REDUCTION SELF-MANAGEMENT AND REDUCING FALL RISK FACTORS TO MINIMIZE FALL RISK BY END OF EPISODE. Goal Provider Goal - PT GOAL: PATIENT/CAREGIVER WILL VERBALIZE UNDERSTANDING OF SIGNS AND SYMPTOMS THAT PUT THE PATIENT AT RISK FOR HOSPITALIZATION /EMERGENCY ROOM VISITS, WHEN TO NOTIFY NURSE/PHYSICIAN OF COMPLICATIONS/DECLINE AND WHEN TO CALL 911. Goal Provider Goal - PT LTG: PATIENT WILL MAINTAIN OXYGEN SATURATION WITHIN PHYSICIAN ORDERED PARAMETERS THROUGHOUT EPISODE OF CARE. Goal Provider Goal - PATIENT / CAREGIVER WILL DEMONSTRATE EFFECTIVE COMMUNITY RESOURCE PLANNING, EVIDENCED BY ACCEPTANCE OF ASSISTANCE FROM THOSE SERVICES FOR WHICH THEY ARE ELIGIBLE, EXTENDING THE PERIOD OF INDEPENDENCE IN THE HOME. Goal Provider Goal - OT LTG: PATIENT WILL DEMONSTRATE IMPROVEMENT IN MODIFIED ARACELI INDEX SCORE FROM 24 TO 50 INDICATING DECREASED DEPENDENCY ON CAREGIVER ASSISTANCE WITH ACTIVITIES OF DAILY LIVING WITHIN 7 WEEKS OT STG PATIENT WILL BE ABLE TO SAFELY POSITION SELF IN BED TO REDUCE THE RISK OF SKIN BREAKDOWN AND FOR IMPROVED PARTICIPATION IN ADLS FROM DEPENDENT TO MODERATE A USING AD PRN WITHIN 5 WEEKS OT LTG: PATIENT WILL BE ABLE TO SAFELY POSITION SELF IN BED TO REDUCE THE RISK OF SKIN BREAKDOWN AND FOR IMPROVED PARTICIPATION IN ADLS FROM DEPENDENT TO INDEPENDENT USING AD PRN WITHIN 7 WEEKS OT STG: PATIENT WILL DEMONSTRATE IMPROVED ABILITY TO PERFORM BED TRANSFERS IN ORDER TO REDUCE RISK OF SKIN BREAKDOWN AND TO IMPROVE PARTICIPATION IN ADLS FROM DEPENDENT TO WHEELCHAIR TO MINIMAL A WITHIN 5 WEEKS OT LTG: PATIENT WILL DEMONSTRATE IMPROVED ABILITY TO PERFORM BED TRANSFERS IN ORDER TO REDUCE RISK OF SKIN BREAKDOWN AND TO IMPROVE PARTICIPATION IN ADLS FROM DEPENDENT TO WHEELCHAIR TO SBA WITHIN 7 WEEKS OT STG: PATIENT WILL DEMONSTRATE IMPROVED ABILITY TO PERFORM TOILET TRANSFERS TO REDUCE FALL RISK AND RISK OF INCONTINENCE AND UTI DEVELOPMENT FROM DEPENDENT TO MINIMAL A WITHIN 5 WEEKS OT LTG: PATIENT WILL DEMONSTRATE IMPROVED ABILITY TO PERFORM TOILET TRANSFERS TO REDUCE FALL RISK AND RISK OF INCONTINENCE AND UTI DEVELOPMENT FROM DEPENDENT TO SBA WITHIN 7 WEEKS OT STG: PATIENT WILL DEMONSTRATE IMPROVED ABILITY TO COMPLETE WHEELCHAIR TRANSFER TO/FROM BED FROM DEPENDENT TO MINIMAL A WITHIN 5 WEEKS IN ORDER TO IMPROVE SELF CARE PERFORMANCE OT LTG: PATIENT WILL DEMONSTRATE IMPROVED ABILITY TO COMPLETE WHEELCHAIR TRANSFER TO/FROM BED FROM DEPENDENT TO SBA WITHIN 7 WEEKS IN ORDER TO IMPROVE SELF CARE PERFORMANCE OT STG: PATIENT WILL DEMONSTRATE IMPROVED POSTURAL CONTROL AND DECREASED FALL RISK EVIDENCED BY AN IMPROVEMENT IN FUNCTIONAL REACH SCORE FROM UNABLE TO 4 IN WITHIN 5 WEEKS IN ORDER TO PERFORM SELF CARE OT LTG: PATIENT WILL DEMONSTRATE IMPROVED POSTURAL CONTROL AND DECREASED FALL RISK EVIDENCED BY AN IMPROVEMENT IN FUNCTIONAL REACH SCORE FROM UNABLE TO 6 IN WITHIN 7 WEEKS IN ORDER TO PERFORM SELF CARE LTG OT: PATIENT S HEART FAILURE WILL REMAIN WELL CONTROLLED THROUGHOUT THE EPISODE OF CARE. PATIENT/CAREGIVER WILL VERBALIZE UNDERSTANDING OF SIGNS AND SYMPTOMS THAT PUT THE PATIENT AT RISK FOR HOSPITALIZATION /EMERGENCY ROOM VISITS, WHEN TO NOTIFY NURSE/PHYSICIAN OF COMPLICATIONS/DECLINE AND WHEN TO CALL 911. OT GOAL: PATIENT/CAREGIVER WILL BE ABLE TO IDENTIFY SIGNS OF ATRIAL FIBRILLATION EXACERBATION AND WILL VERBALIZE/DEMONSTRATE AN ABILITY TO ADHERE TO ATRIAL FIBRILLATION SELF-MANAGEMENT AND LIFE-STYLE CHANGES BY END OF EPISODE Encounters Start Date/Time End Date/Time Encounter Type Admission Type Attending [facility] [place] Facility Care Department Encounter ID Discharge Date Discharge Status Discharge Condition Discharge Reason Percent Goals Met 2025-01-25 00:00:00 2025-03-25 00:00:00 Outpatient BESSY RASMUSSEN [facility] [id number] [id number]
== END 2025-02-20 18:43 | disposition home health service (06) ==
LOC: ER 20:37 → 2ND 20:47
PROVIDERS: Nurse Practitioner Acute Care; Physician Assistant; Admitting Provider Internal Medicine Adolescent Medicine; Emergency Provider Student in an Organized Health Care Education/Training Program; Visit Provider Internal Medicine Adolescent Medicine
DX: I11.0 Hypertensive heart disease with heart failure (principal); I50.23 Acute on chronic systolic (congestive) heart failure; I48.0 Paroxysmal atrial fibrillation; R60.1 Generalized edema; N40.1 Benign prostatic hyperplasia with lower urinary tract symptoms; R33.8 Other retention of urine; I34.0 Nonrheumatic mitral (valve) insufficiency; D63.8 Anemia in other chronic diseases classified elsewhere; E78.5 Hyperlipidemia, unspecified; F01.50 Vascular dementia, unspecified severity, without behavioral disturbance, psychotic disturbance, mood disturbance, and anxiety; R64 Cachexia; I25.2 Old myocardial infarction; J90 Pleural effusion, not elsewhere classified; I42.9 Cardiomyopathy, unspecified; Z68.30 Body mass index [BMI] 30.0-30.9, adult; Z86.73 Personal history of transient ischemic attack (TIA), and cerebral infarction without residual deficits; Z86.711 Personal history of pulmonary embolism; Z79.01 Long term (current) use of anticoagulants; Z79.899 Other long term (current) drug therapy
CPT/HCPCS: 36415; 51702; 70450; 71045; 74177; 80053; 80307; 80320; 81001; 82140; 83605; 83690; 83735; 83880; 84484; 85025; 85610; 93005; 96374; 96375; 96376; 97162; 97166; 97530; 99285; G0378; J1630; J1938; Q9967

== ENCOUNTER 2025-03-04 13:08 | Inpatient (IN) | payer OTHER, MEDICARE, SELFPAY ==
[2025-03-04] VITALS (9 sets, daily range): BP systolic 115–137; BP diastolic 73–98; PULSE 73–126; RESP 17–28; TEMP 36.3–36.7; O2SAT 93–100; BMI 21.7; BMI 25.5
--- NOTE | 2025-03-04 13:09 | PC.NURSE ---
FSBS 114 at this time
--- NOTE | 2025-03-04 13:10 | XR_ITS ---
FINAL REPORT TECHNIQUE: Single view chest CLINICAL HISTORY: short of breath COMPARISON: 02/18/2025 FINDINGS: A single view of the chest was obtained in the lordotic position. The heart and mediastinum are within normal limits. Patchy airspace opacity is seen at the lung bases, left greater than right likely due to basilar pneumonia. There is no pneumothorax. IMPRESSION: Findings consistent with basilar pneumonia. Reviewed, Interpreted and Dictated by Amari Ortiz MD Transcribed by Corry Jiménez Authenticated and . [facility]
--- NOTE | 2025-03-04 13:14 | ED_ITS ---
<Statement entered by Deedee Menon MD - 03/04/25 16:07> I was consulted by the WILLIAM, and we discussed the complexity of the problems being addressed. I approved the treatment and management plan for this patient's care in the emergency department, thus performing a substantive portion of the medical decision making. Deedee Menon MD, SALINAS, FACEP Discharge Plan Disposition Patient Disposition: Admitted Prescriptions Prescriptions: No Action Combivent Respimat 20-100 mcg/actuation Mist 1 puff INHALATION Q6HP PRN (Reason: Shortness Of Breath) losartan 50 mg Tablet 50 mg PO DAILY sennosides [senna] 8.6 mg Tablet 17.2 mg PO BID polyethylene glycol 3350 [Miralax] 17 gram Powder In Packet 17 g PO DAILY cetirizine 5 mg Tablet 5 mg PO DAILY melatonin 3 mg Tablet 6 mg PO HSP PRN (Reason: Insomnia) calcium carbonate-vitamin D3 600 mg-5 mcg (200 unit) Tablet 1 tab PO DAILY tamsulosin 0.4 mg Capsule 0.8 mg PO HS fluticasone propionate 50 mcg/actuation Garretson,Suspension 2 spray INTRANASAL HS Rx Instructions: administer into each nostril finasteride 5 mg Tablet 5 mg PO DAILY simethicone 80 mg Tablet,Chewable 160 mg PO Q6HP PRN (Reason: Gas ) metoprolol succinate [Toprol XL] 100 mg Tablet Extended Release 24 Hr 50 mg PO DAILY omeprazole 20 mg Capsule,Delayed Release(Dr/Ec) 40 mg PO BID rosuvastatin 10 mg Tablet 5 mg PO HS diclofenac sodium 1 % Gel 2 g TOPICAL QIDP PRN (Reason: Pain) Rx Instructions: apply to single elbow, wrist or hand; for hand includes palm/fingers/back of hand spironolactone 25 mg Tablet 25 mg PO DAILY 30 Days Qty: 30 0RF furosemide [Lasix] 40 mg tablet 40 mg PO DAILY Qty: 30 0RF Referrals Follow up/Referrals: Provider,Referral, [Primary Care Provider, Medical] - See instructions Clinical Impressions Clinical Impression: HFrEF (heart failure with reduced ejection fraction), Pneumonia Instructions Patient Instructions: Cough Print Language Print Language: Surinamese Discharge ED Provider: [facility] <Kaia Castillo (ED), EMERGENCY COMMUNICATIONS OPERATOR - Last Filed: 03/04/25 16:01> General Chief Complaint: Cough Stated Complaint: productive cough Time Seen by Provider: 03/04/25 13:09 History of Present Illness HPI narrative: 89-year-old male presents to the ED today for complaint of cough, congestion and productive productive sputum. He is having thick white sputum according to the family. Patient does have a history of A-fib but he is in regular rhythm. Patient lives in [facility] but is a full assist so he lives with his daughter. He does ambulate with assistance. This is all information I am gathering from the EMS crew. Patient is afebrile. This has been going on for the past 24 hours. Patient Related Data Home Medications ?Medication ?Instructions ?Recorded ?Confirmed calcium 600 mg (as 1 tab PO DAILY 12/28/2408/10 carbonate)-vitamin D3 5 mcg (200 unit) tablet cetirizine 5 mg tablet 5 mg PO DAILY 12/28/2402/19 finasteride 5 mg tablet 5 mg PO DAILY 12/28/2402/19 fluticasone propionate 50 2 spray intranasal HS 02/19/25 mcg/actuation nasal spray,suspension ipratropium 20 mcg-albuterol 100 1 puff inhalation Q6H P PRN 12/28/24 02/19/25 mcg/actuation mist for inhalation Shortness Of Breath (Combivent Respimat) losartan 50 mg tablet 50 mg PO DAILY 12/28/2408/10 melatonin 3 mg tablet 6 mg PO HSP PRN Insomnia 04/1102/19/25 polyethylene glycol 3350 17 gram 17 g PO DAILY 5 02/19/25 oral powder packet (Miralax) sennosides 8.6 mg tablet (senna) 17.2 mg PO BID 02/19/25 simethicone 80 mg chewable tablet 160 mg PO Q6HP PRN G as 12/28/24 02/19/25 tamsulosin 0.4 mg capsule 0.8 mg PO HS 12/28/24 diclofenac sodium 1 % topical gel 2 g topical QIDP PRN Pain 02/19/25 02/19/25 metoprolol succinate 100 mg 50 mg PO DAILY 02/19/25 tablet,extended release 24 hr (Toprol XL) omeprazole 20 mg capsule,delayed 40 mg PO BID 02/19/25 02/19/25 release rosuvastatin 10 mg tablet 5 mg PO HS 02/19/25 02/19/25 Previous Rx's ?Medication ?Instructions ?Recorded furosemide 40 mg tablet (Lasix) 40 mg PO DAILY #30 tab s 02/20/25 spironolactone 25 mg tablet 25 mg PO DAILY 30 days #30 tabs 02/20/25 Allergies Allergy/AdvReac Type Severity Reaction Status Date / Time No Known Allergies Allergy Verified 06/06/24 10:17 [facility] <Kaia Castillo (ED), EMERGENCY COMMUNICATIONS OPERATOR - Last Filed: 03/04/25 16:01> [facility] Disclaimer: The information contained in this section may have been updated after the patient was seen, as this information can be updated by other users. Medical History Pneumonia due to COVID-19 virus Pleural effusion, bilateral Pneumonia Cardiomyopathy Severe left ventricular systolic dysfunction (LVSD) Hyperlipidemia Hypertension Non-STEMI (non-ST elevated myocardial infarction) UTI (urinary tract infection) BPH (benign prostatic hyperplasia) Family History Other Heart failure Hypertension Stroke Social History (Updated 02/19/25 @ 04:21 by Radha Ramon RN) Smoking Status: Former smoker tobacco type: cigarettes alcohol intake: former substance use type: denies use current occupational status: retired and other Travel in the last 8 weeks?: None household members: none housing: apartment Have you lived/traveled outside US in past 30 days?: No Contact w/someone who lives/traveled outside US past 30 days?: No Exposure to someone with infectious disease in past 14 days?: No Do you have a fever (greater than 100.4 F or 38 C)?: No Have you tested positive for COVID-19?: No Exposed to someone with COVID-19 in past 14 days?: No Do you have a sore throat?: No Do you have a cough?: No Do you have any weakness?: No Do you have any diarrhea?: No Are you experiencing any unusual bleeding?: No Do you have any muscle aches/pain?: No Do you have any abdominal pain?: No Are you experiencing loss of taste or smell?: No Other Medical History Have you received the Flu Vaccine for this season: No Have you received the Pneumonia Vaccine: No <Kaia Castillo (ED), EMERGENCY COMMUNICATIONS OPERATOR - Last Filed: 03/04/25 16:01> ROS Obtained: Yes Systems reviewed as appropriate & no additional complaints except as documented Constitutional Constitutional: Reports as per HPI Physical Exam <Kaia Castillo (ED), EMERGENCY COMMUNICATIONS OPERATOR - Last Filed: 03/04/25 16:01> General General appearance: alert and in no apparent distress Head Head exam: normocephalic Eye Eye exam: Present PERRL and EOMI ENT ENT exam: Present normal oropharynx and mucous membranes moist Neck Neck exam: Present full ROM and trachea midline Respiratory Respiratory exam: Present wheezes and other (Rhonchi throughout/rales throughout) Cardiovascular Cardiovascular exam: Present irregular rhythm, +S1 and +S2 Abdominal Exam Abdominal exam: Present soft and normal bowel sounds Extremities Exam Extremities exam: Present normal inspection, full ROM and normal capillary refill Neurological Exam Neurological exam: Present alert and oriented X3 Skin Skin exam: Present warm and dry HEART Score <Kaia Castillo (ED), EMERGENCY COMMUNICATIONS OPERATOR - Last Filed: 03/04/25 16:01> HEART Score HEART Score assessment performed?: Yes History (anamnesis): Slightly suspicious ECG: Non-specific disturbance Age: >65 years Risk factors: 3 or more risk factors Troponin: </= normal limit HEART Score: 5 <Deedee Menon MD - Last Filed: 03/04/25 16:07> HEART Score HEART Score: 5 Critical Care <Kaia Castillo (ED), EMERGENCY COMMUNICATIONS OPERATOR - Last Filed: 03/04/25 16:01> Critical Care Time Critical Care Time: No <Deedee Menon MD - Last Filed: 03/04/25 16:07> Critical Care Time Critical Care Time: Yes Attestation: On 03/04/25, the high probability of a clinically significant, sudden or life threatening deterioration of the following system(s) required my full and direct attention, intervention and personal management. The time I documented below is in addition to time spent performing reported procedures but includes the following listed in this critical care notation. Total Time Total Critical Care Time: 35 Medical Decision Making <Kaai Castillo (ED), EMERGENCY COMMUNICATIONS OPERATOR - Last Filed: 03/04/25 16:01> Reyes Inquiry Pt receiving controlled substance: No Reyes was queried for this patient: No Vital Signs Vital Signs: 03/04/25 13:09 03/04/25 14:00 03/04/25 14:30 Temperature 97.9 F Temperature Source Oral Pulse Rate 73 95 H Pulse Rate [Left Radial] 103 H Respiratory Rate 19 Blood Pressure 115/74 119/73 Blood Pressure [Right Arm] 133/86 Blood Pressure Mean 87 97 Blood Pressure Mean [Right Arm] 101 02 Sat by Pulse Oximetry 99 100 93 L Oxygen Delivery Method Room Air 03/04/25 15:00 Temperature Temperature Source Pulse Rate 101 H Pulse Rate [Left Radial] Respiratory Rate Blood Pressure 120/76 Blood Pressure [Right Arm] Blood Pressure Mean 102 Blood Pressure Mean [Right Arm] 02 Sat by Pulse Oximetry 93 L Oxygen Delivery Method Lab Data Labs: Lab Results 03/04/25 13:04: WBC 4.5 L, RBC 4.10 L, Hgb 11.7 L, Hct 33.2 L, MCV 81.0, MCH 28.5, MCHC 35.2, RDW 15.4, Plt Count 297, MPV 9.5, Neut % (Auto) 55.7, Lymph % (Auto) 27.1, Pierce % (Auto) 14.1 H, Eos % (Auto) 1.8, Baso % (Auto) 0.9, Neut # (Auto) 2.5, Lymph # (Auto) 1.2, Pierce # (Auto) 0.6, Eos # (Auto) 0.1, Baso # (Auto) 0.0, D-Dimer 0.75 H, Sodium 135 L, Potassium 4.4, Chloride 103, Carbon Dioxide 27, Anion Gap 9.4, BUN 20, Creatinine 1.20, Estimated Creat Clear 36, E stimated GFR 57 L, Est GFR ( Amer) 69, Glucose 102 H, Calcium 8.8, Magnesium 2.0, Total Bilirubin 0.7, AST 35, ALT 46, Alkaline Phosphatase 115, Troponin I 0.03, NT-Pro-B Natriuret Pep 90589 H, Total Protein 6.5, Albumin 3.5, Globulin 3.0, Albumin/Globulin Ratio 1.2, Lipase 33 03/04/25 13:11: VBG pH 7.27 L, VBG pCO2 51.8 H, VBG pO2 44.7 H, VBG HCO3 23.1, VBG Total CO2 24.7, VBG O2 Saturation 74.2 H, VBG Base Excess -3.9 L, VBG Lactic Acid 1.9 03/04/25 13:25: SARS-CoV-2 (PCR) Not detected, Influenza A Untype (PCR) Not detected, Influenza Type B (PCR) Not detected 03/04/25 13:04 03/04/25 13:04 Response Orders (Tests/Meds): ED MEDICATIONS Generic Name Dose Route Start Last Admin Trade Name Freq PRN Reason Stop Dose Admin Acetaminophen 650 mg 03/04/25 16:01 Acetaminophen 325mg Tab PO 04/03/25 16:00 Q4HP PRN Fever or Mild Pain (1-3) Ceftriaxone Sodium 2 gm/ 100 mls @ 200 mls/hr 03/04/25 15:15 Sodium Chloride IV 03/14/25 15:14 Q24H MAKENZIE Azithromycin 500 mg/ Sodium 250 mls @ 250 mls/hr 03/04/25 15:15 Chloride IV 03/14/25 15:14 Q24H MAKENZIE Ondansetron HCl 4 mg 03/04/25 16:01 Ondansetron 4mg/2ml Vial IV 04/03/25 16:00 Q8HP PRN Nausea Sodium Chloride 10 ml 03/04/25 16:02 03/04/25 16:03 Sodium Chloride 0.9% 10ml Syr (Rad Only) IV 04/03/25 16:01 10 ml NEEDED PRN Administration Maintain IV Site Discontinued Medications Generic Name Dose Route Start Last Admin Trade Name Freq PRN Reason Stop Dose Admin Albuterol/Ipratropium 9 ml 03/04/25 13:10 03/04/25 13:34 Ipratropium/Albuterol 3 Ml Neb IH 03/04/25 13:11 9 ml ONCE ONE Administration Aspirin 325 mg 03/04/25 13:10 03/04/25 13:45 Aspirin 325mg Tablet PO 03/04/25 13:11 Not Given ONCE ONE Furosemide 80 mg 03/04/25 14:52 Furosemide 40mg/4ml Vial IV 03/04/25 14:53 ONCE ONE Magnesium Sulfate 2 gm in 50 mls @ 50 mls/hr 03/04/25 13:10 03/04/25 14:41 Magnesium Sulfate 2gm/50ml Premix IV 03/04/25 14:09 Infused ONCE ONE Infusion Iopamidol 75 ml 03/04/25 16:02 03/04/25 16:03 Iopamidol-370 (76%);100ml Bottle IV 03/04/25 16:03 75 ml ONCE ONE Administration ORDERS Category Date Time Status CT chest w con Stat Cat Scan 03/04/25 14:47 Taken Chest XR -- portable [XR chest portable] Stat Exams 03/04/25 13:10 Completed BNP [NT Pro Brain Natriuretic Pep.] Stat Lab 03/04/25 13:04 Completed CBC [Complete Blood Count Auto Diff] Stat Lab 03/04/25 13:04 Completed Complete Blood Count Auto Diff AMLAB Lab 03/05/25 06:00 Ordered Complete Blood Count Auto Diff AMLAB Lab 03/06/25 06:00 Ordered Complete Blood Count Auto Diff AMLAB Lab 03/07/25 06:00 Ordered Comprehensive Metabolic Panel AMLAB Lab 03/05/25 06:00 Ordered Comprehensive Metabolic Panel AMLAB Lab 03/06/25 06:00 Ordered Comprehensive Metabolic Panel AMLAB Lab 03/07/25 06:00 Ordered Comprehensive Metabolic Panel Stat Lab 03/04/25 13:04 Completed D-Dimer Stat Lab 03/04/25 13:04 Completed Lactic Acid Stat Lab 03/04/25 15:09 Ordered Lipase Stat Lab 03/04/25 13:04 Completed Magnesium AMLAB Lab 03/05/25 06:00 Ordered Magnesium AMLAB Lab 03/06/25 06:00 Ordered Magnesium Stat Lab 03/04/25 13:04 Completed Rapid PCR Covid and Flu A/B Stat Lab 03/04/25 13:25 Completed Trop I [Troponin I] Stat Lab 03/04/25 13:04 Completed Troponin I Q3H Lab 03/04/25 16:15 Ordered Troponin I Q3H Lab 03/04/25 19:15 Ordered Urinalysis and Microscopic Stat Lab 03/04/25 15:27 Ordered Urinalysis and Microscopic Stat Lab 03/04/25 15:57 Ordered Blood Culture Stat Micro 03/04/25 15:09 Ordered Venous Blood Gas Stat RT 03/04/25 13:11 Completed MDM Narrative Medical Decision Narrative: patient is a 89-year-old male presenting to the emergency department for evaluation of cough, congestion, shortness of breath. Patient is hemodynamically stable and nontoxic-appearing upon arrival, afebrile. Differential diagnosis includes pneumonia, PE, among others. Workup will be conducted with hematologic labs, specific imaging, provocative tests. Initial inventions include analgesics, antibiotics Initial workup reviewed by me hematologic labs are remarkable for normal white count, H&H 11.7 and 33.2, dimer was 0.75 which per years criteria he is low likelihood of VTE. VBG pH is 7.27, pCO2 51.8 PaO2 44.7. Mag was 2 troponin was 0.03. Awaiting chest x-ray to be shot. Discussed case with Dr. Menon. BNP was 27, 900. patient was given lasix here in the ER. Patient was also given azithromycin, Rocephin, Lasix here in the ED. We did do blood cultures and lactic. Talk to Allie with hospital medicine who agrees to admit patient to hospital. I have placed orders for the azithromycin, Rocephin and Lasix as well as blood cultures. I asked nursing staff to get the cultures and urine before patient goes up to the floor. Patient is safe for admission. <Deedee Menon MD - Last Filed: 03/04/25 16:07> Vital Signs Vital Signs: 03/04/25 13:09 03/04/25 14:00 03/04/25 14:30 Temperature 97.9 F Temperature Source Oral Pulse Rate 73 95 H Pulse Rate [Left Radial] 103 H Respiratory Rate 19 Blood Pressure 115/74 119/73 Blood Pressure [Right Arm] 133/86 Blood Pressure Mean 87 97 Blood Pressure Mean [Right Arm] 101 02 Sat by Pulse Oximetry 99 100 93 L Oxygen Delivery Method Room Air 03/04/25 15:00 Temperature Temperature Source Pulse Rate 101 H Pulse Rate [Left Radial] Respiratory Rate Blood Pressure 120/76 Blood Pressure [Right Arm] Blood Pressure Mean 102 Blood Pressure Mean [Right Arm] 02 Sat by Pulse Oximetry 93 L Oxygen Delivery Method Lab Data Labs: Lab Results 03/04/25 13:04: WBC 4.5 L, RBC 4.10 L, Hgb 11.7 L, Hct 33.2 L, MCV 81.0, MCH 28.5, MCHC 35.2, RDW 15.4, Plt Count 297, MPV 9.5, Neut % (Auto) 55.7, Lymph % (Auto) 27.1, Pierce % (Auto) 14.1 H, Eos % (Auto) 1.8, Baso % (Auto) 0.9, Neut # (Auto) 2.5, Lymph # (Auto) 1.2, Pierce # (Auto) 0.6, Eos # (Auto) 0.1, Baso # (Auto) 0.0, D-Dimer 0.75 H, Sodium 135 L, Potassium 4.4, Chloride 103, Carbon Dioxide 27, Anion Gap 9.4, BUN 20, Creatinine 1.20, Estimated Creat Clear 36, E stimated GFR 57 L, Est GFR ( Amer) 69, Glucose 102 H, Calcium 8.8, Magnesium 2.0, Total Bilirubin 0.7, AST 35, ALT 46, Alkaline Phosphatase 115, Troponin I 0.03, NT-Pro-B Natriuret Pep 06955 H, Total Protein 6.5, Albumin 3.5, Globulin 3.0, Albumin/Globulin Ratio 1.2, Lipase 33 03/04/25 13:11: VBG pH 7.27 L, VBG pCO2 51.8 H, VBG pO2 44.7 H, VBG HCO3 23.1, VBG Total CO2 24.7, VBG O2 Saturation 74.2 H, VBG Base Excess -3.9 L, VBG Lactic Acid 1.9 03/04/25 13:25: SARS-CoV-2 (PCR) Not detected, Influenza A Untype (PCR) Not detected, Influenza Type B (PCR) Not detected Response Orders (Tests/Meds): ED MEDICATIONS Generic Name Dose Route Start Last Admin Trade Name Freq PRN Reason Stop Dose Admin Acetaminophen 650 mg 03/04/25 16:01 Acetaminophen 325mg Tab PO 04/03/25 16:00 Q4HP PRN Fever or Mild Pain (1-3) Ceftriaxone Sodium 2 gm/ 100 mls @ 200 mls/hr 03/04/25 15:15 Sodium Chloride IV 03/14/25 15:14 Q24H MAKENZIE Azithromycin 500 mg/ Sodium 250 mls @ 250 mls/hr 03/04/25 15:15 Chloride IV 03/14/25 15:14 Q24H MAKENZIE Ondansetron HCl 4 mg 03/04/25 16:01 Ondansetron 4mg/2ml Vial IV 04/03/25 16:00 Q8HP PRN Nausea Sodium Chloride 10 ml 03/04/25 16:02 03/04/25 16:03 Sodium Chloride 0.9% 10ml Syr (Rad Only) IV 04/03/25 16:01 10 ml NEEDED PRN Administration Maintain IV Site Discontinued Medications Generic Name Dose Route Start Last Admin Trade Name Freq PRN Reason Stop Dose Admin Albuterol/Ipratropium 9 ml 03/04/25 13:10 03/04/25 13:34 Ipratropium/Albuterol 3 Ml Neb IH 03/04/25 13:11 9 ml ONCE ONE Administration Aspirin 325 mg 03/04/25 13:10 03/04/25 13:45 Aspirin 325mg Tablet PO 03/04/25 13:11 Not Given ONCE ONE Furosemide 80 mg 03/04/25 14:52 Furosemide 40mg/4ml Vial IV 03/04/25 14:53 ONCE ONE Magnesium Sulfate 2 gm in 50 mls @ 50 mls/hr 03/04/25 13:10 03/04/25 14:41 Magnesium Sulfate 2gm/50ml Premix IV 03/04/25 14:09 Infused ONCE ONE Infusion Iopamidol 75 ml 03/04/25 16:02 03/04/25 16:03 Iopamidol-370 (76%);100ml Bottle IV 03/04/25 16:03 75 ml ONCE ONE Administration ORDERS Category Date Time Status CT chest w con Stat Cat Scan 03/04/25 14:47 Taken Chest XR -- portable [XR chest portable] Stat Exams 03/04/25 13:10 Completed BNP [NT Pro Brain Natriuretic Pep.] Stat Lab 03/04/25 13:04 Completed CBC [Complete Blood Count Auto Diff] Stat Lab 03/04/25 13:04 Completed Complete Blood Count Auto Diff AMLAB Lab 03/05/25 06:00 Ordered Complete Blood Count Auto Diff AMLAB Lab 03/06/25 06:00 Ordered Complete Blood Count Auto Diff AMLAB Lab 03/07/25 06:00 Ordered Comprehensive Metabolic Panel AMLAB Lab 03/05/25 06:00 Ordered Comprehensive Metabolic Panel AMLAB Lab 03/06/25 06:00 Ordered Comprehensive Metabolic Panel AMLAB Lab 03/07/25 06:00 Ordered Comprehensive Metabolic Panel Stat Lab 03/04/25 13:04 Completed D-Dimer Stat Lab 03/04/25 13:04 Completed Lactic Acid Stat Lab 03/04/25 15:09 Ordered Lipase Stat Lab 03/04/25 13:04 Completed Magnesium AMLAB Lab 03/05/25 06:00 Ordered Magnesium AMLAB Lab 03/06/25 06:00 Ordered Magnesium Stat Lab 03/04/25 13:04 Completed Rapid PCR Covid and Flu A/B Stat Lab 03/04/25 13:25 Completed Trop I [Troponin I] Stat Lab 03/04/25 13:04 Completed Troponin I Q3H Lab 03/04/25 16:15 Ordered Troponin I Q3H Lab 03/04/25 19:15 Ordered Urinalysis and Microscopic Stat Lab 03/04/25 15:27 Ordered Urinalysis and Microscopic Stat Lab 03/04/25 15:57 Ordered Blood Culture Stat Micro 03/04/25 15:09 Ordered Venous Blood Gas Stat RT 03/04/25 13:11 Completed
[2025-03-04 13:20] LABS: Lactate Venous 1.9 mmol/L (0.4-2.0); VBG HCO3 23.1 mmol/L (23-30); VBG PCO2 51.8 mmol/L (35-51); VBG PH 7.27 mmol/L (7.31-7.41); VBG PO2 44.7 mmol/L (28-40)
--- NOTE | 2025-03-04 13:21 | ECG_ITS ---
APPROVED REPORT Exam: Resting ECG HR:89 bpm ECG Measurements Heart Rate 89 AXES QRSd 103 QRS 90 QT 394 T 209 QTc 441 Conclusion ATRIAL FIBRILLATION INCOMPLETE RIGHT BUNDLE BRANCH BLOCK [90+ ms QRS DURATION, TERMINAL R IN V1/V2, 40+ ms S IN I/aVL/V4/V5/V6] NONSPECIFIC T-WAVE ABNORMALITY ABNORMAL ECG UNCONFIRMED REPORT Electronically signed by : Anthony Menon, 03/04/2025 15:53:17
[2025-03-04 13:27] LABS: Hematocrit 33.2 % (42.0-52.0); Hemoglobin 11.7 g/dL (14.1-18.0); Immature Granulocytes % 0.4 %; Mean Corpuscular HGB Conc 35.2 g/dL (31.8-35.4); Mean Corpuscular Hemoglobin 28.5 pg (27.0-31.2); Mean Corpuscular Volume 81.0 fl (80-94); Nucleated Red Blood Cells % 0 %; Platelet Count 297 K/mm3 (142-424); Red Blood Count 4.10 M/mm3 (4.60-6.20); Red Cell Distribution Width-SD 44.6 fL; White Blood Count 4.5 K/mm3 (4.8-10.8)
[2025-03-04 13:29] LABS: Coronavirus 19, PCR Not Detected (NotDetected); Influenza A, PCR Not Detected (NotDetected); Influenza B, PCR Not Detected (NotDetected)
[2025-03-04 13:34] LABS: Alanine Aminotransferase 46 U/L (12-78); Albumin Level 3.5 g/dl (3.5-5.0); Albumin/Globulin Ratio 1.2 (1.1-1.8); Alkaline Phosphatase 115 U/L (38-126); Anion Gap 9.4 mEq/L (5-15); Aspartate Amino Transferase 35 U/L (17-59); Bilirubin,Total 0.7 mg/dl (0.2-1.3); Blood Urea Nitrogen 20 mg/dl (9-20); Calcium 8.8 mg/dl (8.4-10.2); Carbon Dioxide 27 mmol/L (22.0-30.0); Chloride 103 mmol/L (98-107); Creatinine Clearance Estimated 36 mL/min (50-200); Creatinine,Serum 1.20 mg/dl (0.66-1.25); Estimated Glomerular Filt Rate 57 ml/min (>60); GFR (African American) 69 ML/MIN (>60); Globulin 3.0 g/dL (1.3-3.2); Glucose 102 mg/dl (74-100); Lipase 33 U/L (23-300); Magnesium 2.0 mg/dl (1.6-2.3); Potassium 4.4 mmoL/L (3.5-5.1); Sodium 135 mmol/L (136-145); Total Protein,Serum 6.5 g/dl (6.3-8.2)
[2025-03-04] MEDS: MAGNESIUM SULFATE IN WATER 2 GM/50 ML PIGGYBACK IV (13:34)
[2025-03-04] MEDS: IPRATROPIUM/ALBUTEROL 3 ML NEB 9 ML IH (13:34)
[2025-03-04 13:38] LABS: D-Dimer 0.75 ug/mL (0.0-0.5)
[2025-03-04 13:47] LABS: Troponin I 0.03 ng/ml (0.00-0.034)
--- NOTE | 2025-03-04 14:47 | CT_ITS ---
FINAL REPORT TECHNIQUE: Routine axial images were obtained from the lung apices to below the diaphragm following IV contrast administration. Individualized dose reduction techniques using automated exposure control or adjustment of the mA and/or kV according to the patient size were employed. CLINICAL HISTORY: abnormal chest FINDINGS: There are moderate bilateral pleural effusions with overlying atelectasis and mild consolidation. No adenopathy or mass lesion is present. Limited imaging of the upper abdomen demonstrates a nodular peripheral margin to the liver consistent with cirrhosis. There are multiple bilateral renal cysts measuring up to 9.1 cm on the left and 8.7 cm on the right. IMPRESSION: Moderate bilateral pleural effusions with overlying atelectasis and mild consolidation. Findings consistent with cirrhosis. Reviewed, Interpreted and Dictated by Amari Ortiz MD Transcribed by Corry Jiménez Authenticated and [facility]
[2025-03-04 15:13] LABS: NT Pro Brain Natriuretic Pep. 27900 pg/mL (0-450)
[2025-03-04] MEDS: SODIUM CHLORIDE 0.9% 10ML SYR (RAD ONLY) 10 ML IV (16:03)
[2025-03-04] MEDS: IOPAMIDOL-370 (76%);100ML BOTTLE 75 ML IV (16:03)
--- NOTE | 2025-03-04 16:12 | EXP.HP ---
History of Present Illness *Admission Date: 03/04/25 *Reason for visit:: weakness, SOA *History of present illness: Mr. Burnham is a 89-year-old male with past medical history significant for dementia, prior CVA/TIA, heart failure reduced ejection fraction, BPH, A-fib on chronic anticoagulation with Eliquis. He was recently admitted from 02/18 through 02/20 for similar presentation with shortness of breath, cough, weakness. [facility]. Lives at home with assistance from his daughter and 24-hour care from [place]. He presents with complaint of worsening weakness, cough, shortness of breath. Cough productive for white sputum. Denies any fever, nausea or vomiting. Normally on room air at home. Patient unable to provide history. Daughter at bedside provides history. He has been more congested as of late. In the ER, found to have mild hypoxia necessitating supplemental oxygen. Noted to have a normal white count of 4.5. BNP severely elevated at 27,000. Chest imaging with CT showing effusions bilaterally. Kidney function at baseline with BUN 20, creatinine 1.2. Liver enzymes normal. Presentation consistent with CHF exacerbation versus bilateral pneumonia. Initiated on antibiotics. Medicine consulted for admission and further management. Patient also found to be in A-fib. After recent discharge, was started on low-dose diuretics. Has been having some urine output improvement. Taking meds per daughter as she is assisting with medication administration. He is irritable on admission but compliant. Oxygen placed with minimal difficulty. Remains afebrile. Has significantly rhonchorous cough. Received diuretics in the ER. Patient wanting to rest. [facility] Disclaimer: The information contained in this section may have been updated after the patient was seen, as this information can be updated by other users. Medical History COVID-19 Acute UTI Pulmonary embolism Ischemic stroke of frontal lobe Pleural effusion Benjamin catheter in place Renal cyst Constipation Fecal impaction Fecal impaction Obstructed, uropathy Aspiration into airway Perianal excoriation Diarrhea Acute pain of left hip Sciatica UTI (urinary tract infection) COVID Rhabdomyolysis Constipation Pneumonia due to COVID-19 virus Pleural effusion, bilateral Pneumonia Cardiomyopathy Severe left ventricular systolic dysfunction (LVSD) Hyperlipidemia Hypertension Non-STEMI (non-ST elevated myocardial infarction) UTI (urinary tract infection) BPH (benign prostatic hyperplasia) Family History Heart failure Hypertension Stroke Social History Smoking Status: Former smoker tobacco type: cigarettes alcohol intake: former substance use type: denies use current occupational status: retired and other Travel in the last 8 weeks?: None household members: none housing: apartment Have you lived/traveled outside US in past 30 days?: No Contact w/someone who lives/traveled outside US past 30 days?: No Exposure to someone with infectious disease in past 14 days?: No Do you have a fever (greater than 100.4 F or 38 C)?: No Have you tested positive for COVID-19?: No Exposed to someone with COVID-19 in past 14 days?: No Do you have a sore throat?: No Do you have a cough?: No Do you have any weakness?: No Do you have any diarrhea?: No Are you experiencing any unusual bleeding?: No Do you have any muscle aches/pain?: No Do you have any abdominal pain?: No Are you experiencing loss of taste or smell?: No Other Medical History Have you received the Flu Vaccine for this season: No Have you received the Pneumonia Vaccine: No Review of Systems Review of Systems Review of systems (narrative): 14 point review of systems performed, pertinent positives and negatives as per HPI; reviewed with family Meds Home Medications and Allergies Home Medications ?Medication ?Instructions ?Recorded ?Confirmed ?Type calcium 600 mg (as 1 tab PO DAILY 12/28/24 03/04/25 History carbonate)-vitamin D3 5 mcg (200 unit) tablet cetirizine 5 mg tablet 5 mg PO DAILY 12/28/24 03/04/25 History finasteride 5 mg tablet 5 mg PO DAILY 12/28/24 03/04/25 History fluticasone propionate 50 2 spray intranasal HS 12/28/24 03/04/25 History mcg/actuation nasal spray,suspension losartan 50 mg tablet 50 mg PO DAILY 12/28/24 03/04/25 History melatonin 3 mg tablet 6 mg PO HSP PRN Insomnia 12/28/24 03/04/25 History polyethylene glycol 3350 17 gram 17 g PO DAILY 12/28/24 03/04/25 History oral powder packet (Miralax) sennosides 8.6 mg tablet (senna) 17.2 mg PO BID 12/28/24 03/04/25 History simethicone 80 mg chewable tablet 80 mg PO Q6HP PRN Gas 12/28/24 03/04/25 History tamsulosin 0.4 mg capsule 0.8 mg PO HS 12/28/24 03/04/25 History diclofenac sodium 1 % topical gel 2 g topical QIDP PRN Pain 02/19/25 03/04/25 History metoprolol succinate 100 mg 50 mg PO DAILY 02/19/25 03/04/25 History tablet,extended release 24 hr (Toprol XL) omeprazole 20 mg capsule,delayed 40 mg PO BID 02/19/25 03/04/25 History release rosuvastatin 10 mg tablet 5 mg PO HS 02/19/25 03/04/25 History furosemide 40 mg tablet (Lasix) 40 mg PO DAILY #30 tabs 02/20/25 03/04/25 Rx spironolactone 25 mg tablet 25 mg PO DAILY 30 days #30 tabs 02/20/25 03/04/25 Rx apixaban 5 mg tablet 5 mg PO BID 03/04/25 03/04/25 History guaifenesin 200 mg tablet 200 mg PO QID PRN mucus 03/04/25 03/04/25 History hydroxyzine HCl 25 mg tablet 25 mg PO HS 03/04/25 03/04/25 History hypromellose 2.5 % eye drops 1 drp ophthalmic (eye) QID PRN . 03/04/25 03/04/25 History ipratropium 0.5 mg-albuterol 3 mg 3 ml inhalation QID 03/04/25 03/04/25 History (2.5 mg base)/3 mL nebulization soln New Prescriptions to Start Prescriptions: Allergies Allergy/AdvReac Type Severity Reaction Status Date / Time No Known Allergies Allergy Verified 06/06/24 10:17 Exam Data for Last 24 hours Vital signs and Labs for Last 24 Hours: Temp Pulse Resp BP Pulse Ox O2 Del Method 97.9 F 101 H 19 120/76 93 L Room Air 03/04/25 13:09 03/04/25 15:00 03/04/25 13:09 03/04/25 15:00 03/04/25 15:00 03/04/25 13:09 Laboratory Results - last 24 hr 03/04/25 13:04: WBC 4.5 L, RBC 4.10 L, Hgb 11.7 L, Hct 33.2 L, MCV 81.0, MCH 28.5, MCHC 35.2, RDW 15.4, Plt Count 297, MPV 9.5, Neut % (Auto) 55.7, Lymph % (Auto) 27.1, Bourbon % (Auto) 14.1 H, Eos % (Auto) 1.8, Baso % (Auto) 0.9, Neut # (Auto) 2.5, Lymph # (Auto) 1.2, Bourbon # (Auto) 0.6, Eos # (Auto) 0.1, Baso # (Auto) 0.0, D-Dimer 0.75 H, Sodium 135 L, Potassium 4.4, Chloride 103, Carbon Dioxide 27, Anion Gap 9.4, BUN 20, Creatinine 1.20, Estimated Creat Clear 36, Estimated GFR 57 L, Est GFR ( Amer) 69, Glucose 102 H, Calcium 8.8, Magnesium 2.0, Total Bilirubin 0.7, AST 35, ALT 46, Alkaline Phosphatase 115, Troponin I 0.03, NT-Pro-B Natriuret Pep 38704 H, Total Protein 6.5, Albumin 3.5, Globulin 3.0, Albumin/Globulin Ratio 1.2, Lipase 33 03/04/25 13:11: VBG pH 7.27 L, VBG pCO2 51.8 H, VBG pO2 44.7 H, VBG HCO3 23.1, VBG Total CO2 24.7, VBG O2 Saturation 74.2 H, VBG Base Excess -3.9 L, VBG Lactic Acid 1.9 03/04/25 13:25: SARS-CoV-2 (PCR) Not detected, Influenza A Untype (PCR) Not detected, Influenza Type B (PCR) Not detected I & O for Last 24 hours: Intake & Output 03/01/25 03/02/25 03/03/25 03/04/25 23:59 23:59 23:59 23:59 Intake Total 50 / 50 Balance 50 / 50 Weight 61.235 kg Constitutional Constitutional: mild distress, average body habitus, chronically ill appearing and agitated *Routine HEENT Exam Head: Present normocephalic Eye: Present EOMI, PERRL and normal accommodation ENT: Present mucous membranes moist *Routine Neck Exam Neck: Present supple and full ROM *Routine Respiratory Exam Respiratory: Present decreased breath sounds, rhonchi and crackles; Absent wheezes *Routine Cardiovascular Exam Cardiovascular: Present irregular rhythm Comments: Atrial fibrillation *Routine Abdominal Exam Abdominal: Present soft and normoactive bowel sounds *Routine Rectal Exam Rectal:: deferred *Routine Genitalia Exam Genitalia:: deferred *Routine Extremities Exam Extremities: Present edema (Trace in ankles), pulses intact and normal capillary refill Comments: Scabbed lesion size of a quarter on right mid rosales Routine Back/Spine/Pelvis Exam Back/Spine: Present full ROM *Routine Skin Exam Skin: Present wounds; Absent rash Comments: Skin wounds to right lower extremity, rosales region, healing. *Routine Neurological Exam Neurological: Present alert, altered mental status and moving all extremities Comments: Secondary to dementia Routine Psychiatric Exam Comments: At times agitated, underlying dementia Assessment and Plan *Assessment and plan (1) Acute exacerbation of CHF (congestive heart failure): Status: Acute Category: Medical Code(s): I50.9 - Heart failure, unspecified (2) Acute on chronic HFrEF (heart failure with reduced ejection fraction): Status: Acute Category: Medical Code(s): I50.23 - Acute on chronic systolic (congestive) heart failure (3) Moderate to severe mitral regurgitation: Status: Acute Category: Medical Code(s): I34.0 - Nonrheumatic mitral (valve) insufficiency (4) Anasarca: Status: Acute Category: Medical Code(s): R60.1 - Generalized edema (5) Chronic anticoagulation: Status: Acute Category: Medical Code(s): Z79.01 - care home (current) use of anticoagulants (6) Paroxysmal A-fib: Status: Acute Category: Medical Code(s): I48.0 - Paroxysmal atrial fibrillation (7) Severe left ventricular systolic dysfunction (LVSD): Status: Acute Category: Medical Code(s): I51.89 - Other ill-defined heart diseases (8) Urinary retention: Status: Acute Category: Medical Code(s): R33.9 - Retention of urine, unspecified (9) BPH (benign prostatic hyperplasia): Status: Acute Category: Medical Code(s): N40.0 - Benign prostatic hyperplasia without lower urinary tract symptoms (10) Altered mental status: Status: Acute Qualifiers: Altered mental status type: disorientation Qualified Code(s): R41.0 - Disorientation, unspecified Category: Medical Code(s): R41.82 - Altered mental status, unspecified Plan 89-year-old male with multiple comorbidities including dementia, HFrEF, BPH, A-fib on chronic anticoagulation along with prior TIA/CVA. Presented with worsening respiratory symptoms and shortness of breath along with productive cough. Found to be in CHF exacerbation with elevated BNP and bilateral effusions. Discussed case with ER physician, request admission for diuresis and further management of A-fib, CHF, possible superimposed pneumonia. I decided to admit for further care. Problems addressed as follows: #HFrEF exacerbation # Severely elevated BNP #Anasarca #Bilateral pleural effusions Bibasilar opacification concerning for edema versus pneumonia. ?Administered 40 mg Lasix IV once. Administered additional 80 mg IV once on arrival. Will continue Lasix 80 mg IV twice daily. Monitor for output. Goal negative volume status. - Per my review of chest CT, has moderate pleural effusions bilaterally. - Receiving ceftriaxone and azithromycin daily, will monitor cultures. Consider weaning antibiotics in 48 hours if cultures negative -Supplemental oxygen as needed for goal sats greater 90%. Currently on 2 L -DuoNebs every 6 hours scheduled for shortness of breath. Consider Mucomyst if cough/secretions do not improve. - Cardiology consulted to assist with management given volume state and A-fib. - Patient had 2D echo obtained 12/2024 which showed a ejection fraction of approximately 20-25%, akinesis of septal, atrial septal, inferior septal LV agarwal, moderate to severe MR, elevated RVSP at 50-55. Patient at the time was not a candidate for LifeVest due to dementia/AMS. ? Continue metoprolol succinate 50 mg twice daily, continue IV diuretics twice daily. Continue spironolactone 25 mg daily, resume Eliquis 5 mg twice daily - Holding losartan. - PT and OT to evaluate in the morning for dispo recommendations -White count normal at 4.5, kidney function normal with BUN 20, creatinine 1.2. This is patient's baseline. Repeat CBC, CMP, magnesium ordered for the morning #Paroxysmal A-fib ? Patient has been in A-fib since admission, heart rate above 100. Monitor for improvement with resumption of metoprolol. Continuous cardiac telemetry. #Dementia/altered mental status ? Patient irritable but cooperative. Alert and oriented to self. Per caregiver patient confusion and agitation are intermittent. #BPH/urinary retention ? Continue tamsulosin 0.8 mg at bedtime and finasteride 5 mg daily. Will consider Benjamin catheter if has signs of urinary retention Melatonin 5 mg nightly for sleep Docusate senna nightly for constipation VTE?Eliquis Up with assistance Regular diet
--- NOTE | 2025-03-04 16:17 | PC.NURSE ---
HS notified of need for a bed to admit
[2025-03-04] MEDS: FUROSEMIDE 40MG/4ML VIAL 80 MG IV (16:26)
[2025-03-04 16:39] LABS: Microscopic, Urine URINE MICROSCOPIC (MICROSCOPIC)
[2025-03-04 16:40] LABS: Bilirubin,Urine Negative (Negative); Color,Urine YELLOW (Yellow); Glucose,Urine (UA) Negative (Negative); Ketones,Urine Negative (Negative); Leukocyte Esterase,Urine TRACE (Negative); PH,Urine 5.5 (5.0-8.5); Protein,Urine Negative (Negative); Specific Gravity, Urine 1.015 (1.005-1.030); Urobilinogen,Urine 0.2 EU/dl (0.2)
--- NOTE | 2025-03-04 16:42 | PC.NURSE ---
report called to papo on second floor
--- NOTE | 2025-03-04 16:54 | PC.NURSE ---
arrived by stretcher form ED
[2025-03-04 16:55] LABS: Bacteria,Urine 1+ /lpf
[2025-03-04] MEDS: AZITHROMYCIN 500 MG in 0.9 % SODIUM CHLORIDE 250 ML 250 MG IV (17:47)
[2025-03-04] MEDS: IPRATROPIUM/ALBUTEROL 3 ML NEB IH ×2 (18:08→22:56)
[2025-03-04 18:28] LABS: Troponin I 0.03 ng/ml (0.00-0.034)
--- NOTE | 2025-03-04 18:37 | PC.NURSE ---
Pt's daughter does not have a medication list for pt. The pt is not able to provide home medication list either due to mental status. Awaiting to hear back from [facility] nurse to obtain home medication list.
[2025-03-04 20:36] LABS: Reflex Lactic Add Lactic Reflex
[2025-03-04] MEDS: METOPROLOL SUCCINATE XL 50MG TABLET 50 MG PO (21:08)
[2025-03-04] MEDS: SENNOSIDES 8.6MG/DOCUSATE 50MG TABLET 1 TAB PO (21:08)
[2025-03-04] MEDS: TAMSULOSIN 0.4MG CAPSULE 0.8 MG PO (21:08)
[2025-03-04] MEDS: MELATONIN 5MG TABLET 5 MG PO (21:09)
[2025-03-04 21:30] LABS: Lactic Acid Follow Up (RFLX 1) 2.6 mmol/L (0.7-2.1)
[2025-03-04 21:41] LABS: Troponin I 0.03 ng/ml (0.00-0.034)
--- NOTE | 2025-03-04 22:05 | PC.NURSE ---
med rec completed per [facility] paperwork - will be located in chart
[2025-03-04] MEDS: guaiFENesin 600 MG TAB.ER.12H PO (22:58)
[2025-03-04 23:17] LABS: Reflex Lactic (2 hrs) Add Lactic Reflex
[2025-03-04 23:53] LABS: Lactic Acid Follow up (RFLX 2) 1.5 mmol/L (0.7-2.1)
[2025-03-05] VITALS (8 sets, daily range): BP systolic 111–140; BP diastolic 71–104; PULSE 66–114; RESP 14–19; TEMP 36.3–36.8; O2SAT 91–100; BMI 24.8
[2025-03-05 06:06] LABS: Hematocrit 34.3 % (42.0-52.0); Hemoglobin 11.9 g/dL (14.1-18.0); Immature Granulocytes % 0.5 %; Mean Corpuscular HGB Conc 34.7 g/dL (31.8-35.4); Mean Corpuscular Hemoglobin 28.0 pg (27.0-31.2); Mean Corpuscular Volume 80.7 fl (80-94); Nucleated Red Blood Cells % 0 %; Platelet Count 269 K/mm3 (142-424); Red Blood Count 4.25 M/mm3 (4.60-6.20); Red Cell Distribution Width-SD 45.1 fL; White Blood Count 6.2 K/mm3 (4.8-10.8)
[2025-03-05] MEDS: IPRATROPIUM/ALBUTEROL 3 ML NEB IH ×4 (06:20→23:30)
[2025-03-05 06:24] LABS: Alanine Aminotransferase 37 U/L (12-78); Albumin Level 3.5 g/dl (3.5-5.0); Albumin/Globulin Ratio 1.3 (1.1-1.8); Alkaline Phosphatase 121 U/L (38-126); Anion Gap 10.1 mEq/L (5-15); Aspartate Amino Transferase 32 U/L (17-59); Bilirubin,Total 0.6 mg/dl (0.2-1.3); Blood Urea Nitrogen 18 mg/dl (9-20); Calcium 8.6 mg/dl (8.4-10.2); Carbon Dioxide 29 mmol/L (22.0-30.0); Chloride 102 mmol/L (98-107); Creatinine Clearance Estimated 42 mL/min (50-200); Creatinine,Serum 1.20 mg/dl (0.66-1.25); Estimated Glomerular Filt Rate 57 ml/min (>60); GFR (African American) 69 ML/MIN (>60); Globulin 2.8 g/dL (1.3-3.2); Glucose 91 mg/dl (74-100); Magnesium 2.2 mg/dl (1.6-2.3); Potassium 4.1 mmoL/L (3.5-5.1); Sodium 137 mmol/L (136-145); Total Protein,Serum 6.3 g/dl (6.3-8.2)
--- NOTE | 2025-03-05 08:07 | HMH.PHAINT1 ---
Pharmacy Intervention Comments: MEDICATION RECONCILIATION COMPLETED ON PATIENT USING DISCHARGE SUMMARY FROM PREVIOUS ADMISSION. -NILTON SAMPSON, NOEMID
--- NOTE | 2025-03-05 08:09 | SW/DCPLANNER ---
Addendum entered by Tawana Wan 03/06/25 10:38: Hospice has set up DME at patient's home for arrival today. Caregiver will be at patient's home today at 12:15PM. I have updated Isabela Carednas and patient's nurse regarding plan to discharge around 12:30PM today. Addendum entered by Tawana Wan 03/05/25 14:22: Caregiver Sunita Menon [phone] will be available tomorrow at noon to meet Hospice at home to set up DME. Addendum entered by Tawana Wan 03/05/25 14:18: Elen sanchez/ [facility] is at bedside. Elen stated that patient is appropriate for Hospice services and can be admitted once he returns home. CM will continue to follow up w/ patient, family and Hospice. Patient will need home O2 at time of discharge. Addendum entered by Tawana Wan 03/05/25 12:13: Financial Counselor did speak w/ daughter regarding Medicaid application. Addendum entered by Tawana Wan 03/05/25 11:20: After lengthy discussion w/ Isabela Cardenas, patient's daughter and sitter they have decided to proceed w/ Hospice services. I have verified that [facility] will still provide in home sitters for patient w/ Hospice. Patient information will be faxed to Josselyn sanchez/ Hospice today. I will follow up once information is reviewed. Discharge date is unknown at this time. Original Note: I contacted patient's daughter this AM to discuss discharge plans once patient is medically stable for discharge. Daughter stated that she is now staying w/ patient and will be at bedside this AM. I will speak w/ patient and daughter this AM at bedside.
--- NOTE | 2025-03-05 08:29 | HMH.PTEV ---
Physical Therapy Evaluation Rehab PT IP Evaluation Start: 03/04/25 18:53 Freq: ONCE Status: Active Protocol: Document 03/05/25 08:21 SIVAN (Rec: 03/05/25 08:28 SIVAN [id number]) Subjective/History History History Per H&P: Mr. Burnham is a 89-year-old male with past medical history significant for dementia, prior CVA/TIA , heart failure reduced ejection fraction, BPH, A-fib on chronic anticoagulation with Eliquis. He was recently admitted from 02/18 through 02/20 for similar presentation with shortness of breath, cough, weakness. [facility] is [facility]. Lives at home with assistance from his daughter and 24-hour care from [place]. He presents with complaint of worsening weakness, cough, shortness of breath. Cough productive for white sputum. Denies any fever, nausea or vomiting. Normally on room air at home. Patient unable to provide history. Daughter at bedside provides history. He has been more congested as of late. In the ER, found to have mild hypoxia necessitating supplemental oxygen. Noted to have a normal white count of 4.5. BNP severely elevated at 27,000. Chest imaging with CT showing effusions bilaterally. Kidney function at baseline with BUN 20, creatinine 1.2. Liver enzymes normal. Presentation consistent with CHF exacerbation versus bilateral pneumonia. Initiated on antibiotics. Medicine consulted for admission and further management . Patient also found to be in A-fib. After recent discharge, was started on low-dose diuretics. Has been having some urine output improvement. Taking meds per daughter as she is assisting with medication administration. He is irritable on admission but compliant. Oxygen placed with minimal difficulty. Remains afebrile. Has significantly rhonchorous cough. Received diuretics in the ER. Patient wanting to rest. Subjective Subjective I walk all the time Pt reports he lives alone and is IND with all mobility. Pt is a questionable historian. [facility] How much help from another person do you currently need... Turning from your A lot back to your side while in a flat bed without using bedrails? Moving from lying on A lot back to sitting on the side of a flat bed without using bedrails? Moving to and from a A lot bed to a chair ( including a wheelchair)? Standing up from a A lot chair using your arms? (e.g., wheelchair, bedside chair) Walking in hospital A lot room? Climbing 3-5 steps A lot with a railing? Mobility Score 12 Mobility Level [facility] Mobility 4 Move to chair/commode Mobility Calculator Rehab PT IP Eval Objective Appearance Patient Behavior Appropriate,Confused Patient Orientation Person Difficulty following moderate instructions Ambulation Patient Able to No Ambulate Balance Ability to Arise Unable Transfers Bed Transfer Ability Moderate x 1 (50% assist) Rehab PT IP prob,goals,plan Problems Date of Evaluation: 03/05/25 PT IP Problems Bed Mobility,Transfers,Gait,Balance,Self care,Safety Rehab Potential Rehab Potential Good Plan PT Intervention Plan Bed Mobility,Transfers,Gait,Balance,Self care,Safety, Therapeutic Exercise Other Intervention 1-2 times Plan PT Plan Frequency Daily Duration LOS Discharge Goals Bed Transfer Ability Minimal x 1 (25% assist) Sit to Stand Chair Minimal x 2 (25% assist) Transfer Ability Discharge Plan PT Discharge Plan Pt most appropriate for inpatient rehabilitation placement upon d/c from [facility] to maximize safety and address deficits. Pt presents below his reported mobility baseline and would benefit from skilled PT while at [facility] to prevent further functional decline. Eval Complexity Eval Charge Codes 43522 - Moderate Complexity PHYSICIAN CERTIFICATION: I certify the specified therapy services for Oumar Burnham are required, authorized, and reviewed every 30 days.
--- NOTE | 2025-03-05 08:42 | HMH.PHAAMS2 ---
- Antimicrobial Stewardship Review culture & sensitivity review Stewardship interventions: culture & sensitivity review (ON AZITH AND ROCEPHIN. CULTURES STILL PENDING.)
[2025-03-05 08:54] LABS: Procalcitonin 0.073 ng/mL (0.0-2.0)
[2025-03-05] MEDS: METOPROLOL SUCCINATE XL 50MG TABLET 50 MG PO (09:07)
[2025-03-05] MEDS: guaiFENesin 600 MG TAB.ER.12H PO (09:07)
[2025-03-05] MEDS: FUROSEMIDE 40MG/4ML VIAL 80 MG IV (09:07)
[2025-03-05] MEDS: APIXABAN 5MG TABLET 5 MG PO (09:07)
[2025-03-05] MEDS: SPIRONOLACTONE 25MG TABLET 25 MG PO (09:07)
--- NOTE | 2025-03-05 09:28 | PC.NURSE ---
pt is coughing after bites of scrambled eggs, mills, toast and thin liquids. pt lung sounds are also wet.
[2025-03-05 10:41] LABS: Microscopic, Urine URINE MICROSCOPIC (MICROSCOPIC)
[2025-03-05 10:47] LABS: Bilirubin,Urine Negative (Negative); Color,Urine YELLOW (Yellow); Glucose,Urine (UA) Negative (Negative); Ketones,Urine Negative (Negative); Leukocyte Esterase,Urine Negative (Negative); PH,Urine 6.0 (5.0-8.5); Protein,Urine Negative (Negative); Specific Gravity, Urine 1.010 (1.005-1.030); Urobilinogen,Urine 0.2 EU/dl (0.2)
--- NOTE | 2025-03-05 10:50 | DIET.NUTRFU ---
Provider reviewed patient care in morning meeting. Patient is having issues swallowing, having excess phloem and gurgling. Currently NPO. Labs were reviewed and WNL. Currently on diuretic tx for fluid overload. Will continue to follow plan of care
--- NOTE | 2025-03-05 10:58 | HMH.OTEV ---
OT Evaluation Rehab OT IP Evaluation Start: 03/04/25 18:53 Freq: ONCE Status: Active Protocol: Document 03/05/25 10:53 FAITH (Rec: 03/05/25 10:58 FAITH [id number]) Rehab OT IP Assessment Subjective History Mr. Burnham is a 89-year-old male with past medical history significant for dementia, prior CVA/TIA, heart failure reduced ejection fraction, BPH, A-fib on chronic anticoagulation with Eliquis. He was recently admitted from 02/18 through 02/20 for similar presentation with shortness of breath, cough, weakness. [facility] is [facility]. Lives at home with assistance from his daughter and 24-hour care from [place]. He presents with complaint of worsening weakness, cough, shortness of breath. Cough productive for white sputum. Denies any fever, nausea or vomiting. Normally on room air at home. Patient unable to provide history. Daughter at bedside provides history. He has been more congested as of late. In the ER, found to have mild hypoxia necessitating supplemental oxygen. Noted to have a normal white count of 4.5. BNP severely elevated at 27,000. Chest imaging with CT showing effusions bilaterally. Kidney function at baseline with BUN 20, creatinine 1.2. Liver enzymes normal. Presentation consistent with CHF exacerbation versus bilateral pneumonia. Initiated on antibiotics. Medicine consulted for admission and further management . Patient also found to be in A-fib. After recent discharge, was started on low-dose diuretics. Has been having some urine output improvement. Taking meds per daughter as she is assisting with medication administration. He is irritable on admission but compliant. Oxygen placed with minimal difficulty. Remains afebrile. Has significantly rhonchorous cough. Received diuretics in the ER. Patient wanting to rest. Patient is a poor historian. However per PT, patient lives alone but daughter has been staying with him more . Patient had a recent hospitalization ~2 weeks ago. Subjective Yeah. Instructed Patient on safety awareness to complete bed mobility from supine->sit @ EOB requiring Max A. Patient sat up @ EOB <30 secs with max cueing. Patient preferred to lay back in bed in upright position. S/u food tray for nutritional intake. Patient was able to grasp regular utensils to bring food from plate->mouth. Objective Patient Orientation Person,Place,Name,Age Right Upper WFL Extremity Gross ROM Left Upper Extremity WFL Gross ROM Bed Mobility bed mobility - supine/sit Assist Level Maximum x 1 (75% assist) Feeding Ability Assist with Tray Set Up Rehab OT IP prob,goals,plan Problems Date of Evaluation: 03/05/25 OT IP Problems Bed Mobility,Transfers,Balance,Self care,Safety Rehab Potential Rehab Potential Good Plan OT intervention Plan Bed Mobility,Transfers,Balance,Self care,Safety, Therapeutic Exercise OT Plan Frequency Daily Duration LOS Discharge Goals Bed Mobility Ability Standby Assistance Discharge Plan OT Discharge Plan Recommend 08/11 care or placement at this time. Per PT, Patient would be private pay and daughter has requested for patient to return back home. Patient to continue to be seen by OT IP services while here at [facility] to address safety awareness with ADLs and fx'l mobility tasks. Eval Complexity Eval Charge Codes 29256 - Low Complexity PHYSICIAN CERTIFICATION: I certify the specified therapy services for Oumar Burnham are required, authorized, and reviewed every 30 days.
--- NOTE | 2025-03-05 11:44 | P.PN_ITS ---
<Statement entered by Clark Butt MD - 03/11/25 11:09> Agree with plan of care as outlined by the PIPING MANAGER. Subjective *Date: 03/05/25 *Time: 15:24 Interval history: Mr. Burnham continues to have intermittent gurgling/coughing this morning. Patient was deep suctioned multiple times. Patient currently n.p.o. for aspiration risk. Nurse performed bedside swallow eval which patient failed. At this time speech is unavailable for evaluation. Patient continues to be volume overloaded, receiving Lasix IV for diuresis. Discussion with family had by social work and myself, they are interested in hospice care at this time. Medical Exam Vital signs and Labs for Last 24 Hours: Vital Signs Temp Pulse Pulse Resp BP BP Pulse Ox 03/05/25 11:18 66 03/05/25 11:18 70 03/05/25 09:00 03/05/25 08:00 03/05/25 07:37 98.1 F 78 19 140/104 H 98 03/05/25 07:00 03/05/25 06:22 72 03/05/25 06:22 77 03/05/25 05:00 03/05/25 04:00 98.2 F 114 H 16 137/95 H 98 03/05/25 03:00 03/05/25 01:00 03/05/25 00:00 101 H 17 123/78 91 L 03/04/25 23:18 98 H 03/04/25 23:00 03/04/25 21:00 03/04/25 20:00 03/04/25 19:48 97.3 F L 126 H 17 137/91 H 97 03/04/25 19:00 03/04/25 18:28 101 H 03/04/25 17:00 03/04/25 16:59 98.1 F 100 H 19 120/76 03/04/25 16:43 97.6 F 116 H 28 H 135/98 H 100 03/04/25 16:35 03/04/25 15:00 101 H 120/76 93 L 03/04/25 14:30 95 H 119/73 93 L 03/04/25 14:00 73 115/74 100 03/04/25 13:09 97.9 F 103 H 19 133/86 99 O2 Del Method O2 Flow Rate 03/05/25 11:18 03/05/25 11:18 03/05/25 09:00 Room Air 03/05/25 08:00 Room Air 03/05/25 07:37 Nasal Cannula 2 03/05/25 07:00 Room Air 03/05/25 06:22 03/05/25 06:22 03/05/25 05:00 Room Air 03/05/25 04:00 Nasal Cannula 03/05/25 03:00 Room Air 03/05/25 01:00 Room Air 03/05/25 00:00 Nasal Cannula 2 03/04/25 23:18 03/04/25 23:00 Room Air 03/04/25 21:00 Room Air 03/04/25 20:00 Nasal Cannula 2 03/04/25 19:48 Nasal Cannula 2 03/04/25 19:00 Nasal Cannula 2 03/04/25 18:28 03/04/25 17:00 Nasal Cannula 2 03/04/25 16:59 03/04/25 16:43 Nasal Cannula 4 03/04/25 16:35 Nasal Cannula 2 03/04/25 15:00 03/04/25 14:30 03/04/25 14:00 03/04/25 13:09 Room Air Intake and Output 03/04/25 03/05/25 03/05/25 23:59 07:59 15:59 Intake Total 350 / 400 Output Total 600 / 600 900 / 900 Balance -250 / -200 -900 / -900 Intake: Intake, Total IV Amount 350 / 400 Azithromycin 500 mg In 0.9 % 250 / 250 Sodium Chloride 250 ml @ 250 mls/hr IV Q24H [facility] Rx#:[id number] Ceftriaxone Sodium 2 gm In 0.9 100 / 100 % Sodium Chloride 100 ml @ 200 mls/hr IV Q24H [facility] Rx#:[id number] Output: Output, Urine Amount 600 / 600 900 / 900 Other: Number of Unmeasured Voids 0 1 Weight 73.936 kg 71.804 kg Patient Weight 03/05/25 23:59 Weight 71.804 kg Laboratory Results - last 24 hr 03/04/25 10:39: Urine Color Yellow, Urine Appearance Clear, Urine pH 6.0, Ur S pecific [place] 1.010, Urine Protein Negative, Urine Glucose (UA) Negative, Urine Ketones Negative, Urine Blood Negative, Urine Nitrate Negative, Urine Bilirubin Negative, Urine Urobilinogen 0.2, Ur Leukocyte Esterase Negative, Urine RBC None, Urine WBC None, Ur Squamous Epith Cells None, Urine Bacteria None 03/04/25 13:04: WBC 4.5 L, RBC 4.10 L, Hgb 11.7 L, Hct 33.2 L, MCV 81.0, MCH 28.5, MCHC 35.2, RDW 15.4, Plt Count 297, MPV 9.5, Neut % (Auto) 55.7, Lymph % (Auto) 27.1, [place] % (Auto) 14.1 H, Eos % (Auto) 1.8, Baso % (Auto) 0.9, Neut # (Auto) 2.5, Lymph # (Auto) 1.2, [place] # (Auto) 0.6, Eos # (Auto) 0.1, Baso # (Auto) 0.0, D-Dimer 0.75 H, Sodium 135 L, Potassium 4.4, Chloride 103, Carbon Dioxide 27, Anion Gap 9.4, BUN 20, Creatinine 1.20, Estimated Creat Clear 36, Estimated GFR 57 L, Est GFR ( Amer) 69, Glucose 102 H, Calcium 8.8, Magnesium 2.0, Total Bilirubin 0.7, AST 35, ALT 46, Alkaline Phosphatase 115, Troponin I 0.03, NT-Pro-B Natriuret Pep 37289 H, Total Protein 6.5, Albumin 3.5, Globulin 3.0, Albumin/Globulin Ratio 1.2, Lipase 33 03/04/25 13:11: VBG pH 7.27 L, VBG pCO2 51.8 H, VBG pO2 44.7 H, VBG HCO3 23.1, VBG Total CO2 24.7, VBG O2 Saturation 74.2 H, VBG Base Excess -3.9 L, VBG Lactic Acid 1.9 03/04/25 13:25: SARS-CoV-2 (PCR) Not detected, Influenza A Untype (PCR) Not detected, Influenza Type B (PCR) Not detected 03/04/25 16:22: Lactate 2.1, Urine Color Yellow, Urine Appearance Clear, Urine pH 5.5, Ur Specific [place] 1.015, Urine Protein Negative, Urine Glucose (UA) Negative, Urine Ketones Negative, Urine Blood Negative, Urine Nitrate Negative, Urine Bilirubin Negative, Urine Urobilinogen 0.2, Ur Leukocyte Esterase Trace, Urine RBC None, Urine WBC 3-5, Ur Squamous Epith Cells 5-10, Urine Bacteria 1+ 03/04/25 17:57: Troponin I 0.03 03/04/25 21:09: Lactate 2.6 H, Troponin I 0.03 03/04/25 23:32: Lactate 1.5 03/05/25 05:39: WBC 6.2 D, RBC 4.25 L, Hgb 11.9 L, Hct 34.3 L, MCV 80.7, MCH 28.0, MCHC 34.7, RDW 15.4, Plt Count 269, MPV 9.5, Neut % (Auto) 69.1, Lymph % (Auto) 15.1, [place] % (Auto) 14.3 H, Eos % (Auto) 0.5, Baso % (Auto) 0.5, Neut # (Auto) 4.3, Lymph # (Auto) 0.9, [place] # (Auto) 0.9, Eos # (Auto) 0.0, Baso # (Auto) 0.0, Sodium 137, Potassium 4.1, Chloride 102, Carbon Dioxide 29, Anion Gap 10.1, BUN 18, Creatinine 1.20, Estimated Creat Clear 42, Estimated GFR 57 L, Est GFR ( Amer) 69, Glucose 91, Calcium 8.6, Magnesium 2.2, Total Bilirubin 0.6, AST 32, ALT 37, Alkaline Phosphatase 121, Total Protein 6.3, Albumin 3.5, Globulin 2.8, Albumin/Globulin Ratio 1.3, Procalcitonin 0.073 I & O for Labs for Last 24 Hours: Intake & Output 03/02/25 03/03/25 03/04/25 03/05/25 23:59 23:59 23:59 23:59 Intake Total 400 / 400 Output Total 600 / 600 900 / 900 Balance -200 / -200 -900 / -900 Weight 73.936 kg 71.804 kg Microbiology Reports for the Last 24 Hours: Microbiology 03/05/25 09:50 Sputum - Expectorated Sputum Gram Stain - Final Constitutional: Present no acute distress, thin, cachectic, chronically ill appearing and disheveled Head: Present atraumatic Eyes: Present as per HPI ENT: Present normal exam Neck: Present normal inspection Respiratory: Present rhonchi, diminished air movement and normal respiratory effort Cardiac: Present Irregularly Regular GI: Present soft; Absent distention or tenderness Rectal (male): Present deferred (male): Present normal inspection and deferred Comment:: Benjamin catheter in place Extremities: Present normal inspection; Absent tenderness or edema Skin: Present intact and dry Neuro: Present Weakness, awake and oriented x 3 Assessment and Plan *Assessment and plan (1) Acute exacerbation of CHF (congestive heart failure): Status: Acute Category: Medical Code(s): I50.9 - Heart failure, unspecified (2) Acute on chronic HFrEF (heart failure with reduced ejection fraction): Status: Acute Category: Medical Code(s): I50.23 - Acute on chronic systolic (congestive) heart failure (3) Moderate to severe mitral regurgitation: Status: Acute Category: Medical Code(s): I34.0 - Nonrheumatic mitral (valve) insufficiency (4) Anasarca: Status: Acute Category: Medical Code(s): R60.1 - Generalized edema (5) Chronic anticoagulation: Status: Acute Category: Medical Code(s): Z79.01 - halfway (current) use of anticoagulants (6) Paroxysmal A-fib: Status: Acute Category: Medical Code(s): I48.0 - Paroxysmal atrial fibrillation (7) Severe left ventricular systolic dysfunction (LVSD): Status: Acute Category: Medical Code(s): I51.89 - Other ill-defined heart diseases (8) Urinary retention: Status: Acute Category: Medical Code(s): R33.9 - Retention of urine, unspecified (9) BPH (benign prostatic hyperplasia): Status: Acute Category: Medical Code(s): N40.0 - Benign prostatic hyperplasia without lower urinary tract symptoms (10) Altered mental status: Status: Acute Qualifiers: Altered mental status type: disorientation Qualified Code(s): R41.0 - Disorientation, unspecified Category: Medical Code(s): R41.82 - Altered mental status, unspecified Plan 89-year-old male with multiple comorbidities including dementia, HFrEF, BPH, A- fib on chronic anticoagulation along with prior TIA/CVA. Presented with worsening respiratory symptoms and shortness of breath along with productive cough. Found to be in CHF exacerbation with elevated BNP and bilateral effusions. Discussed case with ER physician, request admission for diuresis and further management of A-fib, CHF, possible superimposed pneumonia. Patient was admitted to hospital medicine for problems addressed as follows: Patient was evaluated by hospice per family's request. Patient accepted to hospice care. Anticipate discharge home tomorrow. #HFrEF exacerbation # Severely elevated BNP #Anasarca #Bilateral pleural effusions - Bibasilar opacification concerning for edema versus pneumonia. No leukocytosis, normal Pro-Ladarius. - Administered 40 mg Lasix IV once. Administered additional 80 mg IV once on arrival. Will continue Lasix 80 mg IV in the morning, 40 mg at 4 PM. Monitoring for output. Patient has been incontinent of urine and unable to measure voids correctly. Patient continues to pull PureWick device off. Patient unable to use urinal at this time. Benjamin catheter placed for accurate CUCA and issues with urinary retention - Bilateral moderate pleural effusions noted on CT of chest. - Receiving ceftriaxone and azithromycin daily, will monitor cultures. Consider weaning antibiotics in 48 hours if cultures negative - Supplemental oxygen as needed for goal sats greater 90%. Currently on room air - DuoNebs every 6 hours scheduled for shortness of breath. Consider Mucomyst if cough/secretions do not improve. - Cardiology consulted to assist with management given volume state and A-fib. - Patient had 2D echo obtained 12/2024 which showed a ejection fraction of approximately 20-25%, akinesis of septal, atrial septal, inferior septal LV agarwal, moderate to severe MR, elevated RVSP at 50-55. Patient at the time was not a candidate for LifeVest due to dementia/AMS. - Continue metoprolol succinate 50 mg twice daily, continue IV diuretics twice daily. Continue spironolactone 25 mg daily, resume Eliquis 5 mg twice daily - Holding losartan. - PT and OT to evaluated patient this morning and recommended 24/7 care of patient or placement at this time patient currently has 24/7 care at home. Patient was unable to stand or ambulate with physical therapy. Interactive discussion with patient's caregiver and daughter regarding goals of care. Patient's daughter states she is interested in hospice care at this time. Patient continues to need 24/7 care but has had multiple readmissions to the hospital due to noncompliance and worsening heart failure. general farmworker present during conversation and working with current caregiver coordinator and hospice to assess further patient needs at this time. -White count normal at 4.5, kidney function normal with BUN 20, creatinine 1.2. This is patient's baseline. Repeat CBC, CMP, magnesium ordered for the morning #Paroxysmal A-fib ? Patient has been in A-fib since admission. Continuous cardiac telemetry. #Dementia/altered mental status ? Patient irritable but cooperative. Alert and oriented to self. Per caregiver patient confusion and agitation are intermittent. #BPH/urinary retention ? Continue tamsulosin 0.8 mg at bedtime and finasteride 5 mg daily. Benjamin catheter in place. Melatonin 5 mg nightly for sleep - Docusate senna nightly for constipation VTE?Eliquis Up with assistance Soft mechanical, thickened liquids
--- NOTE | 2025-03-05 12:22 | EXP.CARD.CON ---
History of Present Illness History of Present Illness Consult date: 03/05/25 Requesting physician: Clark Butt Chief complaint: SOA and Cough History of present illness: History obtained from medical record and family due to patient status: Hospitalist Note: Mr. Burnham is a 89-year-old male with past medical history significant for dementia, prior CVA/TIA, heart failure reduced ejection fraction, BPH, A-fib on chronic anticoagulation with Eliquis. He was recently admitted from 02/18 through 02/20 for similar presentation with shortness of breath, cough, weakness. [facility]. Lives at home with assistance from his daughter and 24-hour care from [place]. He presents with complaint of worsening weakness, cough, shortness of breath. Cough productive for white sputum. Denies any fever, nausea or vomiting. Normally on room air at home. Patient unable to provide history. Daughter at bedside provides history. He has been more congested as of late. In the ER, found to have mild hypoxia necessitating supplemental oxygen. Noted to have a normal white count of 4.5. BNP severely elevated at 27,000. Chest imaging with CT showing effusions bilaterally. Kidney function at baseline with BUN 20, creatinine 1.2. Liver enzymes normal. Presentation consistent with CHF exacerbation versus bilateral pneumonia. Initiated on antibiotics. Medicine consulted for admission and further management. Patient also found to be in A-fib. After recent discharge, was started on low-dose diuretics. Has been having some urine output improvement. Taking meds per daughter as she is assisting with medication administration. He is irritable on admission but compliant. Oxygen placed with minimal difficulty. Remains afebrile. Has significantly rhonchorous cough. Received diuretics in the ER. Patient wanting to rest. Cardiology note: Oumar Burnham is a 89-year-old white male with a past medical history of chronic HFrEF with a known ejection fraction of 20 to 25%, dementia, moderate to severe MR, remote history of CVA and dementia, anemia of chronic diseases and paroxysmal afib who presented to emergency department with complaints of increased shortness of breath and cough. A chest CT was performed which shows moderate bilateral pleural effusions with overlying atelectasis and mild consolidations. Patient was ultimately admitted for CHF exacerbation versus bilateral pneumonia. He has been started on diuretics and is diuresing. Does have dementia with AMS. Patient did have a pure wick placed but was intolerant to it and pulled it off so a Benjamin catheter has now been placed. Patient is receiving IV antibiotics per primary service. Remains in A-fib but rate is acceptable and less than 100. [facility] Disclaimer: The information contained in this section may have been updated after the patient was seen, as this information can be updated by other users. Medical History COVID-19 Acute UTI Pulmonary embolism Ischemic stroke of frontal lobe Pleural effusion Benjamin catheter in place Renal cyst Constipation Fecal impaction Fecal impaction Obstructed, uropathy Aspiration into airway Perianal excoriation Diarrhea Acute pain of left hip Sciatica UTI (urinary tract infection) COVID Rhabdomyolysis Constipation Pneumonia due to COVID-19 virus Pleural effusion, bilateral Pneumonia Cardiomyopathy Severe left ventricular systolic dysfunction (LVSD) Hyperlipidemia Hypertension Non-STEMI (non-ST elevated myocardial infarction) UTI (urinary tract infection) BPH (benign prostatic hyperplasia) Family History Heart failure Hypertension Stroke Social History Smoking Status: Former smoker tobacco type: cigarettes alcohol intake: former substance use type: denies use current occupational status: retired and other Travel in the last 8 weeks?: None household members: none housing: apartment Have you lived/traveled outside [place] in past 30 days?: No Contact w/someone who lives/traveled outside [place] past 30 days?: No Exposure to someone with infectious disease in past 14 days?: No Do you have a fever (greater than 100.4 F or 38 C)?: No Have you tested positive for COVID-19?: No Exposed to someone with COVID-19 in past 14 days?: No Do you have a sore throat?: No Do you have a cough?: No Do you have any weakness?: No Do you have any diarrhea?: No Are you experiencing any unusual bleeding?: No Do you have any muscle aches/pain?: No Do you have any abdominal pain?: No Are you experiencing loss of taste or smell?: No Review of Systems Review of Systems Review of systems:: pertinent systems reviewed and negative unless documented below Exam Data for Last 24 hours Vital signs and Labs for Last 24 Hours: Temp Pulse Resp BP Pulse Ox O2 Del Method O2 Flow Rate 98.0 F 90 14 122/71 96 Nasal Cannula 2 03/05/25 11:51 03/05/25 11:51 03/05/25 11:51 03/05/25 11:51 03/05/25 11:51 03/05/25 11:51 03/05/25 11:51 Laboratory Results - last 24 hr 03/04/25 10:39: Urine Color Yellow, Urine Appearance Clear, Urine pH 6.0, Ur Specific [place] 1.010, Urine Protein Negative, Urine Glucose (UA) Negative, Urine Ketones Negative, Urine Blood Negative, Urine Nitrate Negative, Urine Bilirubin Negative, Urine Urobilinogen 0.2, Ur Leukocyte Esterase Negative, Urine RBC None, Urine WBC None, Ur Squamous Epith Cells None, Urine Bacteria None 03/04/25 13:04: WBC 4.5 L, RBC 4.10 L, Hgb 11.7 L, Hct 33.2 L, MCV 81.0, MCH 28.5, MCHC 35.2, RDW 15.4, Plt Count 297, MPV 9.5, Neut % (Auto) 55.7, Lymph % (Auto) 27.1, [place] % (Auto) 14.1 H, Eos % (Auto) 1.8, Baso % (Auto) 0.9, Neut # (Auto) 2.5, Lymph # (Auto) 1.2, [place] # (Auto) 0.6, Eos # (Auto) 0.1, Baso # (Auto) 0.0, D-Dimer 0.75 H, Sodium 135 L, Potassium 4.4, Chloride 103, Carbon Dioxide 27, Anion Gap 9.4, BUN 20, Creatinine 1.20, Estimated Creat Clear 36, Estimated GFR 57 L, Est GFR ( Amer) 69, Glucose 102 H, Calcium 8.8, Magnesium 2.0, Total Bilirubin 0.7, AST 35, ALT 46, Alkaline Phosphatase 115, Troponin I 0.03, NT-Pro-B Natriuret Pep 08825 H, Total Protein 6.5, Albumin 3.5, Globulin 3.0, Albumin/Globulin Ratio 1.2, Lipase 33 03/04/25 13:11: VBG pH 7.27 L, VBG pCO2 51.8 H, VBG pO2 44.7 H, VBG HCO3 23.1, VBG Total CO2 24.7, VBG O2 Saturation 74.2 H, VBG Base Excess -3.9 L, VBG Lactic Acid 1.9 03/04/25 13:25: SARS-CoV-2 (PCR) Not detected, Influenza A Untype (PCR) Not detected, Influenza Type B (PCR) Not detected 03/04/25 16:22: Lactate 2.1, Urine Color Yellow, Urine Appearance Clear, Urine pH 5.5, Ur Specific [place] 1.015, Urine Protein Negative, Urine Glucose (UA) Negative, Urine Ketones Negative, Urine Blood Negative, Urine Nitrate Negative, Urine Bilirubin Negative, Urine Urobilinogen 0.2, Ur Leukocyte Esterase Trace, Urine RBC None, Urine WBC 3-5, Ur Squamous Epith Cells 5-10, Urine Bacteria 1+ 03/04/25 17:57: Troponin I 0.03 03/04/25 21:09: Lactate 2.6 H, Troponin I 0.03 03/04/25 23:32: Lactate 1.5 03/05/25 05:39: WBC 6.2 D, RBC 4.25 L, Hgb 11.9 L, Hct 34.3 L, MCV 80.7, MCH 28.0, MCHC 34.7, RDW 15.4, Plt Count 269, MPV 9.5, Neut % (Auto) 69.1, Lymph % (Auto) 15.1, [place] % (Auto) 14.3 H, Eos % (Auto) 0.5, Baso % (Auto) 0.5, Neut # (Auto) 4.3, Lymph # (Auto) 0.9, [place] # (Auto) 0.9, Eos # (Auto) 0.0, Baso # (Auto) 0.0, Sodium 137, Potassium 4.1, Chloride 102, Carbon Dioxide 29, Anion Gap 10.1, BUN 18, Creatinine 1.20, Estimated Creat Clear 42, Estimated GFR 57 L, Est GFR ( Amer) 69, Glucose 91, Calcium 8.6, Magnesium 2.2, Total Bilirubin 0.6, AST 32, ALT 37, Alkaline Phosphatase 121, Total Protein 6.3, Albumin 3.5, Globulin 2.8, Albumin/Globulin Ratio 1.3, Procalcitonin 0.073 I & O for Last 24 hours: Intake & Output 03/02/25 03/03/25 03/04/25 03/05/25 23:59 23:59 23:59 23:59 Intake Total 400 / 400 Output Total 600 / 600 900 / 900 Balance -200 / -200 -900 / -900 Weight 163 lb 158 lb 4.8 oz Microbiology Reports for the Last 24 Hours: Microbiology 03/05/25 09:50 Sputum - Expectorated Sputum Gram Stain - Final Constitutional Constitutional: no acute distress *Routine Respiratory Exam Respiratory: Present rhonchi, wheezes and symmetric chest movement *Routine Cardiovascular Exam Cardiovascular: Present RRR, Normal S1 and Normal S2 *Routine Abdominal Exam Abdominal: Present soft and normoactive bowel sounds; Absent tenderness *Routine Extremities Exam Extremities: Present full ROM and normal capillary refill; Absent edema *Routine Skin Exam Skin: Present intact, dry and warm Detailed Neck Exam: Thyroids Thyroid: Absent bruit Meds Home Medications and Allergies Home Medications ?Medication ?Instructions ?Recorded ?Confirmed ?Type calcium 600 mg (as 1 tab PO DAILY 12/28/24 03/04/25 History carbonate)-vitamin D3 5 mcg (200 unit) tablet cetirizine 5 mg tablet 5 mg PO DAILY 12/28/24 03/04/25 History finasteride 5 mg tablet 5 mg PO DAILY 12/28/24 03/04/25 History fluticasone propionate 50 2 spray intranasal HS 12/28/24 03/04/25 History mcg/actuation nasal spray,suspension losartan 50 mg tablet 50 mg PO DAILY 12/28/24 03/04/25 History melatonin 3 mg tablet 6 mg PO HSP PRN Insomnia 12/28/24 03/04/25 History polyethylene glycol 3350 17 gram 17 g PO DAILY 12/28/24 03/04/25 History oral powder packet (Miralax) sennosides 8.6 mg tablet (senna) 17.2 mg PO BID 12/28/24 03/04/25 History simethicone 80 mg chewable tablet 80 mg PO Q6HP PRN Gas 12/28/24 03/04/25 History tamsulosin 0.4 mg capsule 0.8 mg PO HS 12/28/24 03/04/25 History diclofenac sodium 1 % topical gel 2 g topical QIDP PRN Pain 02/19/25 03/04/25 History metoprolol succinate 100 mg 50 mg PO DAILY 02/19/25 03/04/25 History tablet,extended release 24 hr (Toprol XL) omeprazole 20 mg capsule,delayed 40 mg PO BID 02/19/25 03/04/25 History release rosuvastatin 10 mg tablet 5 mg PO HS 02/19/25 03/04/25 History furosemide 40 mg tablet (Lasix) 40 mg PO DAILY #30 tabs 02/20/25 03/04/25 Rx spironolactone 25 mg tablet 25 mg PO DAILY 30 days #30 tabs 02/20/25 03/04/25 Rx apixaban 5 mg tablet 5 mg PO BID 03/04/25 03/04/25 History guaifenesin 200 mg tablet 200 mg PO QIDP PRN Congestion 03/04/25 03/05/25 History hydroxyzine HCl 25 mg tablet 25 mg PO HS 03/04/25 03/04/25 History hypromellose 2.5 % eye drops 1 drp ophthalmic (eye) QID PRN . 03/04/25 03/04/25 History ipratropium 0.5 mg-albuterol 3 mg 3 ml inhalation QID 03/04/25 03/04/25 History (2.5 mg base)/3 mL nebulization soln New Prescriptions to Start Prescriptions: Allergies Allergy/AdvReac Type Severity Reaction Status Date / Time No Known Allergies Allergy Verified 06/06/24 10:17 Assessment and Plan *Assessment and plan (1) Paroxysmal A-fib: Status: Acute Category: Medical Code(s): I48.0 - Paroxysmal atrial fibrillation (2) Pneumonia: Status: Acute Category: Medical Code(s): J18.9 - Pneumonia, unspecified organism (3) Moderate to severe mitral regurgitation: Status: Acute Category: Medical Code(s): I34.0 - Nonrheumatic mitral (valve) insufficiency (4) Acute on chronic HFrEF (heart failure with reduced ejection fraction): Status: Acute Category: Medical Code(s): I50.23 - Acute on chronic systolic (congestive) heart failure Plan Acute on chronic HFrEF Moderate to severe MR Known ejection fraction of 20 to 25%-not a candidate for LifeVest due to confusion and dementia Serial troponins negative Volume overload noted on admission. Bilateral pleural effusions present on CT. Chronically elevated BNP noted Good urine output noted. Accurate I's and O's unable to obtain due to patient pulling off PureWick. A Benjamin catheter has now been placed. Will monitor Lasix 80 mg IV daily and Aldactone 25 mg p.o. daily Paroxysmal atrial fibrillation Currently rate controlled Continue metoprolol succinate 50 mg p.o. twice daily Dementia/altered mental status Refer to primary service CV summary 03/05/2025: Family would like to pursue hospice. Continue to diurese patient with Lasix. Can transition to oral medications as patient can tolerate swallowing. Cardiology will sign off. Please contact service as needed.
[2025-03-05] MEDS: FUROSEMIDE 40MG/4ML VIAL 40 MG IV (15:54)
[2025-03-05] MEDS: AZITHROMYCIN 500 MG in 0.9 % SODIUM CHLORIDE 250 ML 250 MG IV (15:54)
--- NOTE | 2025-03-05 16:17 | PC.NURSE ---
hospice consulted with family this shift. pt accepted into hospice service. pt remains alert and oriented to self. pt did not pass bedside swallow eval this morning-pt made NPO. castaneda cath placed for accurate I&O. pt becomes restless at times. medication given per mar. no complaints of pain. call light within reach.
--- NOTE | 2025-03-05 17:50 | PC.NURSE ---
hospice consulted with family this shift. pt accepted into hospice service upon discharge. pt remains alert and oriented to self. pt did not pass bedside swallow eval this morning-pt made NPO. castaneda cath placed for accurate I&O. pt becomes restless at times. medication given per mar. no complaints of pain. call light within reach
[2025-03-06] VITALS: BP 136/92; PULSE 104; RESP 17; TEMP 36.5; O2SAT 95
[2025-03-06 00:14] VITALS: PULSE 67
[2025-03-06 00:15] VITALS: PULSE 68
--- NOTE | 2025-03-06 01:49 | PC.NURSE ---
Pt alert to self and occasionally place. No significant changes this shift. Currently resting in bed with eyes closed. Respirations even and unlabored with continuous cough without sputum. Bed is low, locked, call light is in reach and bed alarm is on and functioning.
[2025-03-06 04:00] VITALS: BP 134/96; PULSE 104; RESP 16; TEMP 36.5; O2SAT 95; BMI 23.9
[2025-03-06 06:16] LABS: Hematocrit 33.8 % (42.0-52.0); Hemoglobin 11.8 g/dL (14.1-18.0); Immature Granulocytes % 0.2 %; Mean Corpuscular HGB Conc 34.9 g/dL (31.8-35.4); Mean Corpuscular Hemoglobin 27.8 pg (27.0-31.2); Mean Corpuscular Volume 79.5 fl (80-94); Nucleated Red Blood Cells % 0 %; Platelet Count 286 K/mm3 (142-424); Red Blood Count 4.25 M/mm3 (4.60-6.20); Red Cell Distribution Width-SD 43.2 fL; White Blood Count 4.5 K/mm3 (4.8-10.8)
[2025-03-06 06:31] LABS: Alanine Aminotransferase 35 U/L (12-78); Albumin Level 3.6 g/dl (3.5-5.0); Albumin/Globulin Ratio 1.3 (1.1-1.8); Alkaline Phosphatase 127 U/L (38-126); Anion Gap 7.5 mEq/L (5-15); Aspartate Amino Transferase 33 U/L (17-59); Bilirubin,Total 0.5 mg/dl (0.2-1.3); Blood Urea Nitrogen 17 mg/dl (9-20); Calcium 8.8 mg/dl (8.4-10.2); Carbon Dioxide 31 mmol/L (22.0-30.0); Chloride 102 mmol/L (98-107); Creatinine Clearance Estimated 41 mL/min (50-200); Creatinine,Serum 1.20 mg/dl (0.66-1.25); Estimated Glomerular Filt Rate 57 ml/min (>60); GFR (African American) 69 ML/MIN (>60); Globulin 2.8 g/dL (1.3-3.2); Glucose 83 mg/dl (74-100); Magnesium 2.0 mg/dl (1.6-2.3); Potassium 3.5 mmoL/L (3.5-5.1); Sodium 137 mmol/L (136-145); Total Protein,Serum 6.4 g/dl (6.3-8.2)
[2025-03-06 08:00] VITALS: BP 166/86; PULSE 103; RESP 14; TEMP 36.8; O2SAT 96
--- NOTE | 2025-03-06 08:22 | HMH.PHAAMS2 ---
- Antimicrobial Stewardship Review culture & sensitivity review Stewardship interventions: culture & sensitivity review (NO GROWTH BLD CX, SPUTUM CX PENDING, ON AZITH AND ROCEPHIN.)
--- NOTE | 2025-03-06 08:42 | ECG_ITS ---
APPROVED REPORT Exam: Resting ECG HR:108 bpm ECG Measurements Heart Rate 108 AXES QRSd 98 QRS 68 QT 345 T 236 QTc 408 Conclusion ATRIAL FIBRILLATION WITH RAPID VENTRICULAR RESPONSE NONSPECIFIC T-WAVE ABNORMALITY ABNORMAL ECG UNCONFIRMED REPORT Electronically signed by : Jonas Noel MD 03/07/2025 08:30:23
--- NOTE | 2025-03-06 09:42 | P.DS_ITS ---
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 General Admission date:: 03/04/25 Discharge date: 03/06/25 HPI HPI HPI: Mr. Burnham is a 89-year-old male with past medical history significant for dementia, prior CVA/TIA, heart failure reduced ejection fraction, BPH, A-fib on chronic anticoagulation with Eliquis. He was recently admitted from 02/18 through 02/20 for similar presentation with shortness of breath, cough, weakness. [facility] is [facility]. Lives at home with assistance from his daughter and 24- hour care from [place]. He presents with complaint of worsening weakness, cough, shortness of breath. Cough productive for white sputum. Denies any fever, nausea or vomiting. Normally on room air at home. Patient unable to provide history. Daughter at bedside provides history. He has been more congested as of late. In the ER, found to have mild hypoxia necessitating supplemental oxygen. Noted to have a normal white count of 4.5. BNP severely elevated at 27,000. Chest imaging with CT showing effusions bilaterally. Kidney function at baseline with BUN 20, creatinine 1.2. Liver enzymes normal. Presentation consistent with CHF exacerbation versus bilateral pneumonia. Initiated on antibiotics. Medicine consulted for admission and further management. Patient also found to be in A-fib. After recent discharge, was started on low-dose diuretics. Has been having some urine output improvement. Taking meds per daughter as she is assisting with medication administration. He is irritable on admission but compliant. Oxygen placed with minimal difficulty. Remains afebrile. Has significantly rhonchorous cough. Received diuretics in the ER. Patient wanting to rest. Hospital Course Hospital Course Hospital Course: Mr. Burnham is a 89-year-old male with multiple comorbidities including dementia, HFrEF, BPH, urinary retention, A-fib on chronic anticoagulation, TIA/CVA. He presented to the emergency department on 03/04/2025 with respiratory symptoms, shortness of breath, productive cough. Workup in the emergency department was significant for severely elevated BNP with bilateral effusions. Case was discussed with the ER physician and requested permission for HFrEF exacerbation and diuresis, hospital medicine agreed to accept the patient. Hospital course as follows: #HFrEF exacerbation #Severely elevated BNP #Bilateral pleural effusion ? Goals of care discussion had with patient and family. They would like to pursue hospice. Hospice came to evaluate patient yesterday afternoon and excepted patient for hospice care. Patient will return home with hospice and caregivers. ? Bibasilar opacifications concerning for edema versus pneumonia on scan. Patient given course of azithromycin and ceftriaxone during admission, no leukocytosis noted during admission, normal Pro-Ladarius. Effusions likely related to volume overload and heart failure exacerbation. De-escalated antibiotics due to negative blood cultures for 48 hours and negative sputum culture. ? Patient was given 80 mg Lasix IV on arrival, continued to diurese with Lasix 80 mg IV. Patient is urinary incontinent and Benjamin was placed for more accurate CUCA. Patient has had significant urine output with increase in Lasix. Will transition to Lasix 40 mg twice daily for better diuresis at home. Patient will be discharged home without a Benjamin catheter. ? Patient required supplemental O2 for O2 saturation greater than 90%. Day of discharge he is on room air, O2 saturation 96%. Patient will have O2 at home for nighttime as needed. ? Cardiology was consulted for patient's hypervolemia and paroxysmal atrial fibrillation. No new recommendations made. ?Patient has known HFrEF with ejection fraction of approximately 20-25%, akinesis of septal, atrial septal, inferior septal LV agarwal. Moderate to severe MR, elevated RVSP of 50?55. He is not a candidate for LifeVest due to dementia/AMS. ?Will continue home medications of metoprolol succinate 50 mg twice daily, Lasix 40 mg twice daily, spironolactone 25 mg daily Eliquis 5 mg twice daily, losartan 50 mg daily, rosuvastatin 5 mg at bedtime. ?Lab work has been stable during admission, white count 4.5, hemoglobin 11.8. Kidney function stable BUN 17, creatinine 1.2. No electrolyte abnormalities, normal glucose. ?Patient was having intermittent difficulty with swallowing, deep suctioned multiple times by respiratory therapy. Discussed these findings with family who state patient normally has no issues eating at home. Patient advance to a chemically soft diet and thickened liquids without issue. Patient is at risk for aspiration, he discussed with family aspiration precautions once home. #Atrial fibrillation ? Patient has remained in A-fib during admission. Heart rate around 100. He is asymptomatic. Patient is on beta-dilcia and Eliquis 5 mg twice daily. #Dementia/AMS ? Patient waxes and wanes. Able to tell me his name day of discharge but does not know where he is. Per patient's family/caregiver this is baseline for patient. #BPH/urinary retention ? Patient should continue BPH medication tamsulosin 0.8 mg and finasteride 5 mg daily. Patient did have a Benjamin catheter for accurate CUCA during admission. Catheter may be considered in the future if urinary retention persists. Total time spent on discharge 37 minutes in counseling, documentation, chart review, and direct care with patient. Exam Data for Last 24 hours Vital signs and Labs for Last 24 Hours: Temp Pulse Resp BP Pulse Ox O2 Del Method O2 Flow Rate 98.2 F 103 H 14 166/86 H 96 Room Air 2 03/06/25 08:00 03/06/25 08:00 03/06/25 08:00 03/06/25 08:00 03/06/25 08:00 03/06/25 08:00 03/06/25 06:54 Laboratory Results - last 24 hr 03/04/25 10:39: Urine Color Yellow, Urine Appearance Clear, Urine pH 6.0, Ur Specific [place] 1.010, Urine Protein Negative, Urine Glucose (UA) Negative, Urine Ketones Negative, Urine Blood Negative, Urine Nitrate Negative, Urine Bilirubin Negative, Urine Urobilinogen 0.2, Ur Leukocyte Esterase Negative, Urine RBC None, Urine WBC None, Ur Squamous Epith Cells None, Urine Bacteria None 03/06/25 05:48: WBC 4.5 L D, RBC 4.25 L, Hgb 11.8 L, Hct 33.8 L, MCV 79.5 L, MCH 27.8, MCHC 34.9, RDW 14.9, Plt Count 286, MPV 9.0, Neut % (Auto) 49.6, Lymph % (Auto) 28.8, Nolan % (Auto) 18.2 H, Eos % (Auto) 2.5, Baso % (Auto) 0.7, Neut # (Auto) 2.2, Lymph # (Auto) 1.3, Nolan # (Auto) 0.8, Eos # (Auto) 0.1, Baso # (Auto) 0.0, Sodium 137, Potassium 3.5, Chloride 102, Carbon Dioxide 31 H, Anion Gap 7.5, BUN 17, Creatinine 1.20, Estimated Creat Clear 41, Estimated GFR 57 L, Est GFR ( Amer) 69, Glucose 83, Calcium 8.8, Magnesium 2.0, Total Elias irubin 0.5, AST 33, ALT 35, Alkaline Phosphatase 127 H, Total Protein 6.4, Albumin 3.6, Globulin 2.8, Albumin/Globulin Ratio 1.3 I & O for Last 24 hours: Intake & Output 03/03/25 03/04/25 03/05/25 03/06/25 23:59 23:59 23:59 23:59 Intake Total 400 / 400 620 / 620 100 / 100 Output Total 600 / 600 1950 / 1950 400 / 400 Balance -200 / -200 -1330 / -1330 -300 / -300 Weight 73.936 kg 71.804 kg 69.218 kg Microbiology Reports for the Last 24 Hours: Microbiology 03/05/25 09:50 Sputum - Expectorated Sputum Gram Stain - Final 03/05/25 09:50 Sputum - Expectorated Sputum Sputum Culture - Preliminary 03/04/25 16:39 Blood Blood Culture - Preliminary NO GROWTH AFTER 24 HOURS 03/04/25 16:17 Blood Blood Culture - Preliminary NO GROWTH AFTER 24 HOURS Constitutional Constitutional: no acute distress, thin and chronically ill appearing *Routine HEENT Exam Head: Present normocephalic Eye: Present EOMI and PERRL ENT: Present mucous membranes moist Comments: edentulous *Routine Neck Exam Neck: Present supple; Absent lymphadenopathy *Routine Respiratory Exam Respiratory: Present CTA bilaterally; Absent respiratory distress, stridor or wheezes *Routine Cardiovascular Exam Cardiovascular: Present RRR *Routine Abdominal Exam Abdominal: Present soft and normoactive bowel sounds; Absent tenderness *Routine Rectal Exam Patient deferred: visual exam *Routine Exam Patient deferred: penile exam *Routine Extremities Exam Extremities: Absent cyanosis, clubbing or edema *Routine Skin Exam Skin: Present intact and warm; Absent rash *Routine Neurological Exam Neurological: Present alert; Absent motor deficit Results Data Completed and Pending Labs on day of discharge: Labs from last 24 hours 03/06/25 03/04/25 05:48 10:39 WBC 4.5 L D RBC 4.25 L Hgb 11.8 L Hct 33.8 L MCV 79.5 L MCH 27.8 MCHC 34.9 RDW 14.9 Plt Count 286 MPV 9.0 Neut % (Auto) 49.6 Lymph % (Auto) 28.8 Nolan % (Auto) 18.2 H Eos % (Auto) 2.5 Baso % (Auto) 0.7 Neut # (Auto) 2.2 Lymph # (Auto) 1.3 Nolan # (Auto) 0.8 Eos # (Auto) 0.1 Baso # (Auto) 0.0 Sodium 137 Potassium 3.5 Chloride 102 Carbon Dioxide 31 H Anion Gap 7.5 BUN 17 Creatinine 1.20 Estimated Creat Clear 41 Estimated GFR 57 L Est GFR ( Amer) 69 Glucose 83 Calcium 8.8 Magnesium 2.0 Total Bilirubin 0.5 AST 33 ALT 35 Alkaline Phosphatase 127 H Total Protein 6.4 Albumin 3.6 Globulin 2.8 Albumin/Globulin Ratio 1.3 Urine Color Yellow Urine Appearance Clear Urine pH 6.0 Ur Specific [place] 1.010 Urine Protein Negative Urine Glucose (UA) Negative Urine Ketones Negative Urine Blood Negative Urine Nitrate Negative Urine Bilirubin Negative Urine Urobilinogen 0.2 Ur Leukocyte Esterase Negative Urine RBC None Urine WBC None Ur Squamous Epith Cells None Urine Bacteria None Preliminary micro results at discharge 03/05/25 09:50 Sputum Culture - Preliminary Sputum - Expectorated Sputum 03/04/25 16:39 Blood Culture - Preliminary Blood NO GROWTH AFTER 24 HOURS 03/04/25 16:17 Blood Culture - Preliminary Blood NO GROWTH AFTER 24 HOURS DS: Diagnosis Discharge Diagnosis (1) Acute exacerbation of CHF (congestive heart failure): Status: Acute Code(s): I50.9 - Heart failure, unspecified (2) Acute on chronic HFrEF (heart failure with reduced ejection fraction): Status: Acute Code(s): I50.23 - Acute on chronic systolic (congestive) heart failure (3) Moderate to severe mitral regurgitation: Status: Acute Code(s): I34.0 - Nonrheumatic mitral (valve) insufficiency (4) Anasarca: Status: Acute Code(s): R60.1 - Generalized edema (5) Chronic anticoagulation: Status: Acute Code(s): Z79.01 - buttermaker continuous churn (current) use of anticoagulants (6) Paroxysmal A-fib: Status: Acute Code(s): I48.0 - Paroxysmal atrial fibrillation (7) Severe left ventricular systolic dysfunction (LVSD): Status: Acute Code(s): I51.89 - Other ill-defined heart diseases (8) Urinary retention: Status: Acute Code(s): R33.9 - Retention of urine, unspecified (9) BPH (benign prostatic hyperplasia): Status: Acute Code(s): N40.0 - Benign prostatic hyperplasia without lower urinary tract symptoms (10) Altered mental status: Status: Acute Code(s): R41.82 - Altered mental status, unspecified Qualifiers: Altered mental status type: disorientation Qualified Code(s): R41.0 - Disorientation, unspecified Meds Home Medications and Allergies Home Medications ?Medication ?Instructions ?Recorded ?Confirmed ?Type calcium 600 mg (as 1 tab PO DAILY 12/28/2402/16 History carbonate)-vitamin D3 5 mcg (200 unit) tablet cetirizine 5 mg tablet 5 mg PO DAILY 12/28/2403/04 History finasteride 5 mg tablet 5 mg PO DAILY 12/28/2403/04 History fluticasone propionate 50 2 spray intranasal HS 03/04/25 History mcg/actuation nasal spray,suspension losartan 50 mg tablet 50 mg PO DAILY 12/28/2402/16 History melatonin 3 mg tablet 6 mg PO HSP PRN Insomnia 04/1103/04/25 History polyethylene glycol 3350 17 gram 17 g PO DAILY 5 03/04/25 History oral powder packet (Miralax) sennosides 8.6 mg tablet (senna) 17.2 mg PO BID 03/04/25 History simethicone 80 mg chewable tablet 80 mg PO Q6HP PRN Ga s 12/28/24 03/04/25 History tamsulosin 0.4 mg capsule 0.8 mg PO HS 12/28/24 History diclofenac sodium 1 % topical gel 2 g topical QIDP PRN Pain 02/19/25 03/04/25 History metoprolol succinate 100 mg 50 mg PO DAILY 02/19/25 History tablet,extended release 24 hr (Toprol XL) omeprazole 20 mg capsule,delayed 40 mg PO BID 02/19/25 03/04/25 History release rosuvastatin 10 mg tablet 5 mg PO HS 02/19/25 03/04/25 History spironolactone 25 mg tablet 25 mg PO DAILY 30 days #30 tabs 02/20/25 03/04/25 Rx apixaban 5 mg tablet 5 mg PO BID 03/04/25 5 History guaifenesin 200 mg tablet 200 mg PO QIDP PRN Congestio n 03/04/25 03/05/25 History hydroxyzine HCl 25 mg tablet 25 mg PO HS 03/04/2502/16 History hypromellose 2.5 % eye drops 1 drp ophthalmic (eye) QI D PRN . 03/04/25 03/04/25 History ipratropium 0.5 mg-albuterol 3 mg 3 ml inhalation QID 03/04/25 03/04/25 History (2.5 mg base)/3 mL nebulization soln furosemide 40 mg tablet (Lasix) 40 mg PO BID #30 tabs 03/06/25 03/04/25 Rx New Prescriptions to Start Prescriptions: Allergies Allergy/AdvReac Type Severity Reaction Status Date / Time No Known Allergies Allergy Verified 06/06/24 10:17 Discharge Plan Disposition Patient Disposition: Hospice - Home Condition: Fair Follow up Plan Prescriptions/Medication Reconciliation: Continued losartan 50 mg Tablet 50 mg PO DAILY sennosides [senna] 8.6 mg Tablet 17.2 mg PO BID polyethylene glycol 3350 [Miralax] 17 gram Powder In Packet 17 g PO DAILY cetirizine 5 mg Tablet 5 mg PO DAILY melatonin 3 mg Tablet 6 mg PO HSP PRN (Reason: Insomnia) calcium carbonate-vitamin D3 600 mg-5 mcg (200 unit) Tablet 1 tab PO DAILY tamsulosin 0.4 mg Capsule 0.8 mg PO HS fluticasone propionate 50 mcg/actuation Cement,Suspension 2 spray INTRANASAL HS Rx Instructions: administer into each nostril finasteride 5 mg Tablet 5 mg PO DAILY simethicone 80 mg Tablet,Chewable 80 mg PO Q6HP PRN (Reason: Gas ) metoprolol succinate [Toprol XL] 100 mg Tablet Extended Release 24 Hr 50 mg PO DAILY omeprazole 20 mg Capsule,Delayed Release(Dr/Ec) 40 mg PO BID rosuvastatin 10 mg Tablet 5 mg PO HS diclofenac sodium 1 % Gel 2 g TOPICAL QIDP PRN (Reason: Pain) Rx Instructions: apply to single elbow, wrist or hand; for hand includes palm/fingers/back of hand spironolactone 25 mg Tablet 25 mg PO DAILY 30 Days Qty: 30 0RF ipratropium-albuterol 0.5 mg-3 mg(2.5 mg base)/3 mL Solution For Nebulization 3 ml INHALATION QID guaifenesin 200 mg Tablet 200 mg PO QIDP PRN (Reason: Congestion) hydroxyzine HCl 25 mg Tablet 25 mg PO HS hypromellose 2.5 % Drops 1 drp OPHTHALMIC (EYE) QID PRN (Reason: .) apixaban 5 mg Tablet 5 mg PO BID Changed furosemide [Lasix] 40 mg tablet 40 mg PO BID Qty: 30 0RF Problem Reconciliation Problems Reviewed?: Yes Patient Discharge Instructions ACTIVITY: Ambulate as tolerated and Up with assistance DIET: other Additional Instructions: pt. did well with mechanical soft diet and thickened liquids. Patient Instructions: Heart Failure, DI for Pneumonia in Adults, How to [place] With Heart Failure, Catheter-Associated Urinary Tract Infection, Stop Light Pneumonia, Stop Light Heart Failure, Stop Light Infection Print Language: Korean Providers Primary Care Provider: Provider,Referral Admit Provider: Anthony Farrell Attending Provider: Anthony Farrell
[2025-03-06 10:33] LABS: Adenovirus,PCR Not Detected (NotDetected); Chlamydophila Pneumoniae, PCR Not Detected (NotDetected); Coronavirus 19, PCR Not Detected (NotDetected); Coronovirus HKU1,PCR Not Detected (NotDetected); Influenza A, PCR Not Detected (NotDetected); Influenza AH1, 2009 Not Detected (NotDetected); Influenza AH1, PCR Not Detected (NotDetected); Influenza AH3,PCR Not Detected (NotDetected); Influenza B, PCR Not Detected (NotDetected); Mycoplasma Pneumoniae, PCR Not Detected (NotDetected); Parainfluenza 1, PCR Not Detected (NotDetected); Parainfluenza 2, PCR Not Detected (NotDetected); Parainfluenza 3, PCR Not Detected (NotDetected); Parainfluenza 4, PCR Not Detected (NotDetected)
--- NOTE | 2025-03-09 10:48 | EXP.EVENT.NO ---
Respiratory culture positive for MRSA, discussed with daughter, Saranya Carter, over the phone and sent in Bactrim DS twice daily for 7 days. Daughter states patient is doing well, but continues to have cough. Advised Bactrim may help alleviate pneumonia/cough and to follow-up with hospice with any questions.
== END 2025-03-06 15:46 | disposition hospice, home (50) | DRG 291 ==
LOC: ER 16:03 → 2ND 16:42
PROVIDERS: Nurse Practitioner; Student in an Organized Health Care Education/Training Program; Admitting Provider Internal Medicine Adolescent Medicine; Emergency Provider Student in an Organized Health Care Education/Training Program; Visit Provider Internal Medicine Adolescent Medicine
DX: I11.0 Hypertensive heart disease with heart failure (principal); I50.23 Acute on chronic systolic (congestive) heart failure; J15.212 Pneumonia due to Methicillin resistant Staphylococcus aureus; F03.90 Unspecified dementia, unspecified severity, without behavioral disturbance, psychotic disturbance, mood disturbance, and anxiety; Z86.73 Personal history of transient ischemic attack (TIA), and cerebral infarction without residual deficits; Z79.01 Long term (current) use of anticoagulants; N40.1 Benign prostatic hyperplasia with lower urinary tract symptoms; N39.498 Other specified urinary incontinence; R33.8 Other retention of urine; I48.0 Paroxysmal atrial fibrillation; I34.0 Nonrheumatic mitral (valve) insufficiency; Z86.16 Personal history of COVID-19; I25.2 Old myocardial infarction; I42.9 Cardiomyopathy, unspecified; Z87.891 Personal history of nicotine dependence; B95.62 Methicillin resistant Staphylococcus aureus infection as the cause of diseases classified elsewhere; Z51.5 Encounter for palliative care; K59.00 Constipation, unspecified
CPT/HCPCS: 0223U; 36415; 51702; 71045; 71260; 80053; 81001; 82803; 83605; 83690; 83735; 83880; 84145; 84484; 85025; 85378; 87040; 87070; 87077; 87186; 87205; 87636; 89220; 93005; 94640; 97162; 97165; 97530; 99285; J0456; J0696; J1938; J3475; J7050; Q9967